=== PATIENT | male | born 1970 | race Caucasian/White ===

== ENCOUNTER 2016-07-19 07:38 | Inpatient (IN) | payer MEDICAID ==
[~2016-07-19] VITALS: Ht 152.4 cm; Wt 50.0 kg
[2016-07-19] VITALS (9 sets, daily range): BP systolic 110; BP diastolic 71; PULSE 85–109; RESP 14–16; TEMP 100.3; Ht 152.4 cm; Wt 50.0 kg
[~2016-07-19 07:38] MED LIST: ACET500T98 GTB; ACET650T85 GTB; CRAN475C GTB; DOCU50LI18 GTB; ESOM40CA GTB; FERR1POW4 GTB; HYDR-1666 GTB; KEP100S GTB; LANS30CA47 PO; MAGN400O4 GTB; METO10TA92 PO; MVI GTB; NA P118E RC; PROSTAT GTB; UDREG GTB; ZINC220T GTB; [UNRECOGNIZED DRUG - CODE] GTB
[2016-07-19] MEDS ORDERED: SODIUM CHLORIDE 0.9% 1L BAG IV* STA (07:50)
[2016-07-19] MEDS ORDERED: CEFEPIME 2GM/50 ML (PMX) 50 ML IVPB STA (07:50)
[2016-07-19] MEDS ORDERED: PANTOPRAZOLE 40 MG INJ IV STA (07:50)
[2016-07-19] MEDS ORDERED: ACETAMINOPHEN 650 MG SUPP PR STA (07:50)
--- NOTE | 2016-07-19 07:55 | ERA ---
ER Documentation Chief Complaint Date/Time DATE: 07/19/16 TIME: 07:54 Chief Complaint VOMITING SINCE 0100, NO BLOOD. RECENT FEVER. NO BLACK STOOLS. HPI History is obtained entirely from transferring paramedics, review of assisted facility records and prior medical records as the patient is encephalopathic and unable to provide any history due to his clinical condition and cognitive impairment. 45-year-old male with a history of anoxic encephalopathy status post cardiac arrest after a suicide attempt in October 2009, vent dependent respiratory failure, seizure disorder, schizophrenia, gastritis/esophagitis and bradycardia sent to the ED from [facility] for evaluation of vomiting and fever. Patient vomited a large amount of coffee-ground vomitus this morning. He was then found to have a fever of 101.5 rectally. No documented melanotic stools. Patient seems to be at his baseline mental status without obvious dyspnea. No other history is available. ROS All systems reviewed and are negative except as per history of present illness. Medications Home Meds Reported Medications Metoclopramide* (Reglan*) 10 Mg Tablet, 10 MG PO TID 06/22/12 Lansoprazole* (Prevacid*) 30 Mg Capsule.dr, 30 MG PO BID 06/22/12 Acetaminophen (Tylenol 8 Hour) 650 Mg Tablet.sa, 650 MG GTB Q4 Y 06/02/12 Acetaminophen (Tylenol) 500 Mg Tab, 1000 MG GTB Q4 Y 06/02/12 Na Phos,M-B/Na Phos,Di-Ba* (Fleet* Enema) 118 Ml Enema, 118 ML RC Q2D Y 06/02/12 Zinc Sulfate* (Zinc Sulfate*) 220 Mg Tablet, 220 MG GTB DAILY 06/02/12 Ascorbic Acid (Vitamin C) 500 Mg/5 Ml Syrup, 500 MG GTB DAILY 06/02/12 Docusate Sodium (Colace) 50 Mg/5 Ml Liquid, 100 MG GTB BID 06/02/12 Levetiracetam* (Keppra* (Ped)) 100 Mg/Ml Liq, 1500 MG GTB BID 06/02/12 Metoclopramide* (Reglan*) 10 Mg/10 Ml Soln, 10 MG GTB TID 06/02/12 Magnesium Hydroxide* (Milk Of Magnesia*) 400 Mg/5 Ml Oral.susp, 30 ML GTB Q3DAY 06/02/12 Hydrocodone Bit/Acetaminophen (Vicodin 5/500 Tablet) 1 Tab Tablet, 1 TAB GTB BID 06/02/12 Ferrous Sulfate (Ferrous Sulfate) 1 Gm Powder, 330 MG GTB TID 04/26/11 Cranberry Fruit (Cranberry Fruit) 475 Mg Capsule, 405 MG GTB DAILY 04/26/11 Multivitamins (Mvi Adult) 10 Ml Soln, 5 ML GTB DAILY 04/26/11 Esomeprazole Mag Trihydrate (Nexium) 40 Mg Capsule.dr, 40 MG GTB DAILY 04/26/11 Discontinued Reported Medications [Prostat] No Conflict Check, 30 ML GTB DAILY 06/02/12 Allergies Allergies: Coded Allergies: No Known Drug Allergy (Verified Allergy, Unknown, 06/25/13) PMhx/Soc Reviewed in chart. As per HPI. assisted facility resident. History of Surgery: No Hx Neurological Disorder: Yes (Anoxic Encephalopathy, seizure, anxiety.) Hx Respiratory Disorders: Yes (Trache Vent dependent.) Hx Cardiac Disorders: Yes ([place]) Hx Psychiatric Problems: Yes (Schizophrenia, anxiety.) Hx Alcohol Use: No Hx Substance Use: No Hx Tobacco Use: No FmHx Unknown Physical Exam Vitals Vital Signs Date Time Temp Pulse Resp B/P Pulse Ox O2 Delivery O2 Flow Rate FiO2 07/19/16 08:38 102.3 07/19/16 08:13 103 14 99 40 07/19/16 07:47 101.9 107 18 115/87 100 Physical Exam Const: Chronically ill-appearing. Eyes open but unresponsive. Head: Atraumatic Eyes: Normal Conjunctiva. Pupils equal reactive. ENT: Normal External Ears, Nose and Mouth. Mucous membranes are dry. Neck: Tracheostomy site is clean without erythema, induration or drainage. No meningismus. Resp: Breath sounds diminished bilaterally with crackles and rhonchi right greater than left. No wheezing. Cardio: Regular rate and rhythm, no murmurs Abd: Soft, non tender, non distended. Normal bowel sounds. G-tube site without erythema induration or drainage. Skin: No petechiae or rashes. No decubiti. Back: No midline or flank tenderness Ext: No cyanosis, or edema. Contracted Neur: Alert but unresponsive. No facial droop. History is limited due to the constraints imposed by the patient's cognitive impairment and clinical condition. Result Diagram: 07/19/16 0810 07/19/16 0810 Results 24 hrs Laboratory Tests Test 07/19/16 06:30 07/19/16 08:10 07/19/16 09:30 Urine Bacteria MANY Urine Bilirubin NEGATIVE Urine Clarity HAZY Urine Color LT. YELLOW Urine Glucose NEGATIVE% Urine Hemoglobin 3+ Urine Ketones NEGATIVE Urine Leukocyte Esterase 3+ Urine Microscopic RBC 10-25/HPF Urine Microscopic WBC 10-25/HPF Urine Nitrite NEGATIVE Urine Specific [place] 1.015 Urine Total Protein 2+ Urine Urobilinogen 1.0 E.U./dL Urine pH 8.5 Alanine Aminotransferase (ALT/SGPT) 35IU/L Albumin 4.1g/dl Albumin/Globulin Ratio 1.00 Alkaline Phosphatase 118IU/L Anion Gap 25 Aspartate Amino Transf (AST/SGOT) 48IU/L Basophils # 0.010^3/ul Basophils % 0.0% Blood Morphology Comment Blood Urea Nitrogen 25mg/dl Calcium Level 9.6mg/dl Carbon Dioxide Level 24mmol/L Chloride Level 106mmol/L Creatinine 0.56mg/dl Direct Bilirubin 0.00mg/dl Eosinophils # 0.010^3/ul Eosinophils % 0.0% Globulin 4.10g/dl Glucose Level 124mg/dl Hematocrit 38.7% Hemoglobin 13.0g/dl Indirect Bilirubin 0.3mg/dl Lactic Acid Level 2.7mmol/L Lipase 43U/L Lymphocytes # 1.110^3/ul Lymphocytes % 6.0% Mean Corpuscular Hemoglobin 27.7pg Mean Corpuscular Hemoglobin Concent 33.6g/dl Mean Corpuscular Volume 82.5fl Mean Platelet Volume 9.7fl Monocytes # 0.510^3/ul Monocytes % 2.6% Neutrophils # 16.210^3/ul Neutrophils % 91.4% Nucleated Red Blood Cells # 0.010^3/ul Nucleated Red Blood Cells % 0.0/100WBC Platelet Count 84804^3/UL Potassium Level 4.0mmol/L Red Blood Count 4.6910^6/ul Red Cell Distribution Width 14.2% Sodium Level 151mmol/L Stool Occult Blood NEGATIVE Total Bilirubin 0.3mg/dl Total Protein 8.2g/dl Troponin I < 0.012ng/ml White Blood Count 17.710^3/ul Activated Partial Thromboplast Time 33.0Sec INR International Normalized Ratio 1.10 Prothrombin Time 14.2Sec Prothrombin Time Ratio 1.1 Current Medications Medications (Trade) Dose Ordered Sig/Kevin Route PRN Reason Start Time Stop Time Status Last Admin Dose Admin Sodium Chloride (NS) 1,550 ml BOLUS OVER 2 HOURS STAT IV* 07/19/16 07:50 07/19/16 07:51 07/19/16 09:29 Pantoprazole (Protonix Iv) 40 mg ONCE STAT IV 07/19/16 07:50 07/19/16 07:51 07/19/16 09:30 Acetaminophen 650 mg 650 mg ONCE STAT WA 07/19/16 07:50 07/19/16 07:51 07/19/16 09:31 Cefepime HCl 50 ml @ 100 mls/hr ONCE STAT IVPB 07/19/16 07:50 07/19/16 08:19 07/19/16 09:30 Vancomycin HCl (Vancocin) 250 ml @ 125 mls/hr ONCE ONCE IVPB 07/19/16 08:00 07/19/16 09:59 Lidocaine 20 ml 20 ml ONCE ONCE SC 07/19/16 08:30 07/19/16 08:31 Levofloxacin/ Dextrose (Levaquin 500mg/ D5W 100 ml (Pmx)) 100 ml @ 100 mls/hr ONCE ONCE IVPB 07/19/16 10:00 07/19/16 10:59 RHYTHM STRIP INTERPRETATION: Time: 08:10. Sinus tachycardia. Rate 110. Indication: Sepsis. EKG: TIME: 08:07. Sinus tachycardia with occasional PACs. Normal [place] and QRS. Nonspecific T-wave changes. No acute ST segment elevation or depression. EP Interpretation: Abnormal EKG. IMAGING: PROCEDURE: XR Chest. CLINICAL INDICATION: chest pain TECHNIQUE: Single frontal view of the chest was obtained COMPARISON: 06/27/2013 FINDINGS: The heart and mediastinum are within normal limits. There is a right lower lobe infiltrate. There is mild left lower lobe linear atelectasis. There is a tracheostomy tube in place. There is no pleural effusion or pneumothorax. RPTAT: AA IMPRESSION: Right lower lobe infiltrate. Mild left lower lobe linear atelectasis. .Vivek Hansen MD, MD Date Time Electronically viewed and signed by .Vivek Hansen MD, MD on 07/19/2016 08: 55 .S/ Procedures/MDM DOCUMENTS REVIEWED: ED nurse, prior ED, prior records, assisted facility records. MEDICAL DECISION MAKIN-year-old male with a history of anoxic encephalopathy status post cardiac arrest after a suicide attempt in October 2009, vent dependent respiratory failure, seizure disorder, schizophrenia, gastritis/ esophagitis and bradycardia sent to the ED from [facility] for evaluation of vomiting and fever. Multiple criteria for systemic inflammatory response syndrome including fever, leukocytosis, tachycardia and tachypnea. Severe sepsis with lactate of 2.7 secondary to pneumonia and urinary tract infection. No hypotension or other criteria for septic shock. Repeat lactate is pending. Normal saline 30 cc/kg bolus given over 2 hours and antibiotics for healthcare acquired pneumonia with double coverage for Pseudomonas initiated after cultures. Coffee-ground emesis and possible upper GI bleed but stool is heme-negative and no significant anemia. Patient be admitted to telemetry for further evaluation and management. CALLS/CONSULTS: Time 09: 30, Dr. Courtney, Recommends admission to telemetry. PATIENT CARE TRANSITIONED: Time: 09:50, Dr. Courtney. Critical Care: Critical care time not including other separately reportable procedures: 35 minutes Emergent fluid management while maintaining close respiratory support. Provision of immediate and broad-spectrum antibiotic therapy. Simultaneous assessment for possible sources in order to direct targeted therapy. Consideration for invasive and chemical support to prevent cardiopulmonary collapse. Family history is unknown. Departure Diagnosis: Primary Impression: Severe sepsis Additional Impressions: Systemic inflammatory response syndrome (SIRS) Pneumonia Qualified Code: J18.9 - Pneumonia of right lower lobe due to infectious organism Urinary tract infection Qualified Code: N39.0 - Urinary tract infection without hematuria, site unspecified Chronic respiratory failure Qualified Code: J96.10 - Chronic respiratory failure, unspecified whether with hypoxia or hypercapnia Ventilator dependent Anoxic encephalopathy Condition: Serious SHAYY ROJAS MD Jul 19, 2016 07:55
[2016-07-19] MEDS ORDERED: VANCOMYCIN 1 GM (PMX) 250 ML IVPB ONE (08:00)
[2016-07-19] MEDS ORDERED: LIDOCAINE 1% (MDV) 20 ML INJ SC ONE (08:30)
[2016-07-19 08:44] LABS: HEMATOCRIT 38.7 % (42.0-52.0); LYMPHOCYTES # 1.1 10^3/ul (0.8-2.9); MEAN CORPUSCULAR HEMOGLOBIN 27.7 pg (29.0-33.0); MEAN CORPUSCULAR HGB CONC 33.6 g/dl (32.0-37.0); MEAN CORPUSCULAR VOLUME 82.5 fl (82.0-101.0); MEAN PLATELET VOLUME 9.7 fl (7.4-10.4); MONOCYTE # 0.5 10^3/ul (0.3-0.9); MONOCYTES % 2.6 % (0.0-11.0); NEUTROPHIL # 16.2 10^3/ul (1.6-7.5); NEUTROPHILS % 91.4 % (39.0-77.0); PLATELET COUNT 263 10^3/UL (140-440); RED BLOOD COUNT 4.69 10^6/ul (4.70-6.10); RED CELL DISTRIBUTION WIDTH 14.2 % (11.5-14.5); UNCORRECTED WBC 17.7 10^3/ul (4.8-10.8); WHITE BLOOD COUNT 17.7 10^3/ul (4.8-10.8)
[2016-07-19 08:47] LABS: CONDITION 1; LH ANALYZER COMMENTS 1
[2016-07-19 08:53] LABS: ADD UMIC YES; URINE BILIRUBIN (Dip) NEGATIVE (NEGATIVE); URINE BLOOD (Dip) 3+ (NEGATIVE); URINE COLOR LT. YELLOW (YELLOW); URINE GLUCOSE (Dip) NEGATIVE (NEGATIVE); URINE KETONES (Dip) NEGATIVE (NEGATIVE); URINE LEUKOCYTE ESTERASE (Dip) 3+ (NEGATIVE); URINE NITRITE (Dip) NEGATIVE (NEGATIVE); URINE TOTAL PROTEIN (Dip) 2+ (NEGATIVE); URINE UROBILINOGEN (Dip) 1.0 E.U./dL (0.1-1.0)
--- NOTE | 2016-07-19 08:56 | RADRPT ---
PROCEDURE: XR Chest. CLINICAL INDICATION: chest pain TECHNIQUE: Single frontal view of the chest was obtained COMPARISON: 06/27/2013 FINDINGS: The heart and mediastinum are within normal limits. There is a right lower lobe infiltrate. There is mild left lower lobe linear atelectasis. There is a tracheostomy tube in place. There is no pleural effusion or pneumothorax. RPTAT: AA IMPRESSION: Right lower lobe infiltrate. Mild left lower lobe linear atelectasis. .Vivek Hansen MD, Date Time Electronically viewed and signed by .Vivek Hansen MD, MD on 07/19/2016 08:55 .S/
[2016-07-19 09:03] LABS: BACTERIA,URINE MANY
[2016-07-19 09:22] LABS: TROPONIN-I < 0.012 ng/ml (0.00-0.12)
[2016-07-19 09:45] LABS: ALBUMIN 4.1 g/dl (3.3-4.9); CHLORIDE 106 mmol/L (97-110)
[2016-07-19 09:46] LABS: SODIUM 151 mmol/L (135-144)
[2016-07-19 09:48] LABS: ALKALINE PHOSPHATASE 118 IU/L (42-121); ANION GAP 25 (8-16); ASPARTATE AMINO TRANSFERASE 48 IU/L (15-46); BILIRUBIN,INDIRECT 0.3 mg/dl (0-1.1); BILIRUBIN,TOTAL 0.3 mg/dl (0.2-1.3); CARBON DIOXIDE 24 mmol/L (21-31); CREATININE 0.56 mg/dl (0.61-1.24); TOTAL PROTEIN 8.2 g/dl (6.1-8.1)
[2016-07-19 09:49] LABS: ALANINE AMINOTRANSFERASE 35 IU/L (13-69); BLOOD UREA NITROGEN 25 mg/dl (7-20); CALCIUM 9.6 mg/dl (8.4-10.2); GLUCOSE 124 mg/dl (70-220)
[2016-07-19 09:54] LABS: INR 1.1; PROTIME 14.2 Sec (12.2-14.2); PT RATIO 1.1
[2016-07-19] MEDS ORDERED: LEVOFLOXACIN 500MG/D5W (PMX) 100 ML IVPB ONE (10:00)
[2016-07-19] MEDS ORDERED: ACETAMINOPHEN 325 MG TAB PO PRN (10:00)
[2016-07-19] MEDS ORDERED: ONDANSETRON 4 MG INJ IV PRN (10:00)
[2016-07-19] MEDS ORDERED: CHLO473M4 MM (10:11)
[2016-07-19] MEDS ORDERED: ALBU2.5V3 NEB (10:11)
[2016-07-19] MEDS ORDERED: DOCU-159 GTB (10:12)
[2016-07-19] MEDS ORDERED: DULR PR (10:13)
[2016-07-19] MEDS ORDERED: FERR220S3 GTB (10:14)
[2016-07-19] MEDS ORDERED: NA P230E RC (10:16)
[2016-07-19] MEDS ORDERED: LEVE500S9 GTB (10:16)
[2016-07-19] MEDS ORDERED: MAGN400O4 GTB (10:17)
[2016-07-19] MEDS ORDERED: MULT9LIQ4 GTB (10:17)
[2016-07-19] MEDS ORDERED: UDREG GTB (10:18)
[2016-07-19] MEDS ORDERED: ESOM40CA GTB (10:18)
[2016-07-19] MEDS ORDERED: ACET-2047 GTB (10:19)
[2016-07-19] MEDS ORDERED: CRAN3875 GTB (10:20)
[2016-07-19] MEDS ORDERED: ASCO500S2 GTB (10:20)
[2016-07-19 10:40] LABS: AADO2 Arterial 157.6 mmHg (7.0-24.0); Allen Test ACCEPTAB; Arterial Base Excess -0.2 mmol/L (-3.0-3); Arterial COHb 0.3 % (0.0-3.0); Arterial Fraction of Oxyhgb 96.1 % (93.0-99.0); Arterial HCO3 23.3 mmol/L (22.0-26.0); Arterial MetHb 0.2 % (0.0-1.5); Arterial Total Hemglobin 12.2 g/dl (12.0-18.0); Blood Gas Low PEEP Setting 0 cmH2O; MODE VENT - AC
[2016-07-19] MEDS ORDERED: BISACODYL 10 MG SUPP PR PRN (14:00)
[2016-07-19] MEDS ORDERED: ALBUTEROL 0.083% (NEB) 2.5 MG/3 ML AMP NEB PRN (14:00)
[2016-07-19] MEDS ORDERED: ACETAMINOPHEN 325 MG TAB GTB PRN (14:00)
[2016-07-19] MEDS ORDERED: MAGNESIUM HYDROXIDE 30ML CUP GTB PRN (14:00)
--- NOTE | 2016-07-19 14:01 | HP ---
Date/Time of Note Date/Time of Note DATE: 07/19/16 TIME: 13:35 Assessment/Plan VTE Prophylaxis VTE Prophylaxis Intervention: other Assessment/Plan Assessment/Plan -Severe sepsis -Systemic inflammatory response syndrome (SIRS) -Pneumonia of right lower lobe due to infectious organism -Urinary tract infection without hematuria, site unspecified -Chronic respiratory failure -Ventilator dependent -Anoxic encephalopathy -dyspahgia -spPEG PLACEMENT -Hypernatremia - Anxiety - Hx Schizophrenia PLAN -Admit to tele -Consults- ID, Pulmonary, GI, Nephro -admission orders done dw Dr Courtney HPI/ROS Admit Date/Time Admit Date/Time Jul 19, 2016 at 13:30 Hx of Present Illness Chief Complaint VOMITING SINCE 0100, NO BLOOD. RECENT FEVER. NO BLACK STOOLS. HPI History is obtained entirely from transferring paramedics, review of [facility] facility records and prior medical records as the patient is encephalopathic and unable to provide any history due to his clinical condition and cognitive impairment. 45-year-old male with a history of anoxic encephalopathy status post cardiac arrest after a suicide attempt in October 2009, vent dependent respiratory failure, seizure disorder, schizophrenia, gastritis/esophagitis and bradycardia sent to the ED from [facility] for evaluation of vomiting and fever. Patient vomited a large amount of coffee-ground vomitus this morning. He was then found to have a fever of 101.5 rectally. No documented melanotic stools. Patient seems to be at his baseline mental status without obvious dyspnea. No other history is available. ROS All systems reviewed and are negative except as per history of present illness. Medications Home Meds Reported Medications Metoclopramide* (Reglan*) 10 Mg Tablet, 10 MG PO TID 06/22/12 Lansoprazole* (Prevacid*) 30 Mg Capsule.dr, 30 MG PO BID 06/22/12 Acetaminophen (Tylenol 8 Hour) 650 Mg Tablet.sa, 650 MG GTB Q4 Y 06/02/12 Acetaminophen (Tylenol) 500 Mg Tab, 1000 MG GTB Q4 Y 06/02/12 Na Phos,M-B/Na Phos,Di-Ba* (Fleet* Enema) 118 Ml Enema, 118 ML RC Q2D Y 06/02/12 Zinc Sulfate* (Zinc Sulfate*) 220 Mg Tablet, 220 MG GTB DAILY 06/02/12 Ascorbic Acid (Vitamin C) 500 Mg/5 Ml Syrup, 500 MG GTB DAILY 06/02/12 Docusate Sodium (Colace) 50 Mg/5 Ml Liquid, 100 MG GTB BID 06/02/12 Levetiracetam* (Keppra* (Ped)) 100 Mg/Ml Liq, 1500 MG GTB BID 06/02/12 Metoclopramide* (Reglan*) 10 Mg/10 Ml Soln, 10 MG GTB TID 06/02/12 Magnesium Hydroxide* (Milk Of Magnesia*) 400 Mg/5 Ml Oral.susp, 30 ML GTB Q3DAY 06/02/12 Hydrocodone Bit/Acetaminophen (Vicodin 5/500 Tablet) 1 Tab Tablet, 1 TAB GTB BID 06/02/12 Ferrous Sulfate (Ferrous Sulfate) 1 Gm Powder, 330 MG GTB TID 04/26/11 Cranberry Fruit (Cranberry Fruit) 475 Mg Capsule, 405 MG GTB DAILY 04/26/11 Multivitamins (Mvi Adult) 10 Ml Soln, 5 ML GTB DAILY 04/26/11 Esomeprazole Mag Trihydrate (Nexium) 40 Mg Capsule.dr, 40 MG GTB DAILY 04/26/11 Discontinued Reported Medications [Prostat] No Conflict Check, 30 ML GTB DAILY 06/02/12 Allergies Allergies: Coded Allergies: No Known Drug Allergy (Verified Allergy, Unknown, 06/25/13) ROS Subjective hx not possible: pt non-verbal PMH/Family/Social Past Medical History PMhx/Soc Reviewed in chart. As per HPI. [facility] facility resident. History of Surgery: No Hx Neurological Disorder: Yes (Anoxic Encephalopathy, seizure, anxiety.) Hx Respiratory Disorders: Yes (Trache Vent dependent.) Hx Cardiac Disorders: Yes (ID) Hx Psychiatric Problems: Yes (Schizophrenia, anxiety.) Hx Alcohol Use: No Hx Substance Use: No Hx Tobacco Use: No FmHx Unknown Social History Smoking Status: Unknown if ever smoked Exam/Review of Systems Vital Signs Vitals Vital Signs Date Time Temp Pulse Resp B/P Pulse Ox O2 Delivery O2 Flow Rate FiO2 07/19/16 12:54 100.3 82 18 128/92 100 Room Air 07/19/16 11:02 40 Exam Constitutional: alert, frail, non-verbal Psych: confusion Eyes: nl sclera ENMT: nl external ears & nose Neck: non-tender Respiratory: diminished breath sounds Cardiovascular: nl pulses Gastrointestinal: non-tender, other, soft Musculoskeletal: muscle weakness (BUE, BLE contratures), other Extremities: normal pulses Neurological: confused Labs Result Diagram: 07/19/16 0810 07/19/16 0810 Medications Medications Current Medications Vancomycin HCl (Vancocin) 250 ml @ 125 mls/hr ONCE ONCE IVPB Last administered on 07/19/16 11:26; Admin Dose 125 MLS/HR; Start 07/19/16 at 08:00 ; Stop 07/19/16 at 09:59 Lidocaine 20 ml 20 ml ONCE ONCE SC ; Start 07/19/16 at 08:30; Stop 07/19/16 at 08:31 Levofloxacin/ Dextrose 100 ml @ 100 mls/hr ONCE ONCE IVPB Last administered on 07/19/16 10:06; Admin Dose 100 MLS/HR; Start 07/19/16 at 10:00; Stop at 10:59 Levetiracetam/ Sodium Chloride (Keppra Iv/NS) 115 ml @ 460 mls/hr BID IVPB ; Start 07/19/16 at 13:30 Procedures Procedures EKG: TIME: 08:07. Sinus tachycardia with occasional PACs. Normal MD and QRS. Nonspecific T-wave changes. No acute ST segment elevation or depression. EP Interpretation: Abnormal EKG. IMAGING: PROCEDURE: XR Chest. CLINICAL INDICATION: chest pain TECHNIQUE: Single frontal view of the chest was obtained COMPARISON: 06/27/2013 FINDINGS: The heart and mediastinum are within normal limits. There is a right lower lobe infiltrate. There is mild left lower lobe linear atelectasis. There is a tracheostomy tube in place. There is no pleural effusion or pneumothorax. RPTAT: AA IMPRESSION: Right lower lobe infiltrate. Mild left lower lobe linear atelectasis. SHELLEY HERNANDEZ Jul 19, 2016 13:48
[2016-07-19 14:23] LABS: CREATININE 0.58 mg/dl (0.61-1.24)
[2016-07-19 14:24] LABS: CALCIUM 8.8 mg/dl (8.4-10.2)
[2016-07-19] MEDS: METOCLOPRAMIDE (1 MG/ML) 10 ML CUP GTB SCH ×2 (14:36→21:17)
[2016-07-19] MEDS: LEVETIRACETAM IV 1,500 MG in SOD CHLORIDE 0.9% 100 ML IVPB SCH ×2 (14:36→22:40)
--- NOTE | 2016-07-19 15:13 | CONS ---
DATE OF ADMISSION: 07/19/2016 DATE OF CONSULTATION: 07/19/2016 NEPHROLOGY CONSULTATION REASON FOR CONSULTATION: Acute hyponatremia, sodium 151; acute prerenal azotemia, concerned about sepsis. REFERRING PHYSICIAN: Dr. Courtney HISTORY OF PRESENT ILLNESS: This is a 45-year-old male who has a past medical history of anoxic encephalopathy, chronic respiratory failure, status post tracheostomy, on chronic ventilator, a history of dysphagia and had G-tube placement, anxiety and schizophrenia. The patient presented with sepsis secondary to pneumonia of the right lower lobe. He also had a urinary tract infection without hematuria. The patient was admitted by Dr. Courtney and he was noted to have acute hypernatremia with a sodium of 151. He also had prerenal azotemia and renal has been consulted for that. REVIEW OF SYSTEMS: Unable to obtain from the patient, since the patient is currently on a tracheostomy and ventilator dependent. PAST MEDICAL HISTORY: 1. Notable for chronic respiratory failure, status post tracheostomy, on a ventilator. 2. Anoxic encephalopathy. 3. Dysphagia, status post gastrostomy tube placement. 4. History of anxiety. 5. History of schizophrenia. PAST SURGICAL HISTORY: History of tracheostomy, history of G-tube. 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 No other history is available. FAMILY HISTORY: Not available. PHYSICAL EXAMINATION: VITAL SIGNS: Temperature 102.3, heart rate 98, respirations 18, blood pressure 128/92, saturations 100% on room air. GENERAL: Patient is currently connected to the ventilator. The tracheostomy site is in place, site is clear. No erythema, no discharge. NECK: Supple. LUNGS: Bilateral decreased breath sounds at both lung bases. Right lower lobe rales present. No wheezing. HEART: S1, S2, tachycardia. ABDOMEN: Soft. G-tube in place. EXTREMITIES: No clubbing, cyanosis, or edema. NEUROLOGICAL: Uncooperative for exam. The patient has anoxic encephalopathy. SKIN: Not able to assess. LABORATORY DATA/DIAGNOSTIC IMAGIN. Sodium 151, potassium 4, chloride 106, bicarbonate 24, BUN 25, creatinine 0.5, glucose 124. Lactic acid 2.7. LFTs are normal. PT 14.2, PTT 33, INR 1.1. 2. WBC 17.7, hemoglobin 13, platelet count is 263. 3. Urinalysis has 3+ leukocyte esterase, many bacteria, 2+ total protein. 4. Stool for occult blood is negative. IMPRESSION: This is a 45-year-old male with: 1. Acute hypernatremia, likely secondary to free water deficit. 2. Sepsis secondary to pneumonia and urinary tract infection. 3. Right lower lobe pneumonia. 4. Acute prerenal azotemia secondary to moderate to severe dehydration. 5. History of anxiety. 6. History of schizophrenia. 7. History of chronic respiratory failure, status post tracheostomy, on a ventilator. 8. History of anoxic encephalopathy. 9. History of dysphagia, status post gastrostomy tube placement. PLAN: Thank you, Dr. Courtney, for this consultation. 1. I will continue the patient on IV fluids of D5W to run at 70 mL per hour x2 liters. 2. I will also give some IV fluids for possible prerenal azotemia. A renal ultrasound will be ordered. 3. Urine studies, including urine sodium, urine protein, urine creatinine has been ordered. The patient is currently seen on the telemetry floor, and is admitted to the telemetry floor by Dr. Courtney. Once again, thank you, Dr. Courtney, for this consultation. I will continue to follow this patient. Total Time Spent in patient Care and consultation including communication with Nursing Staff and educating Patient and Familiy is more than 60 minutes. Dictated By: UMM MANNING MD, KP/CY Conf#: [id number] DID#: [id number] MTDD
[2016-07-19] MEDS: D5W + KCL 20 MEQ 1,000 ML IV SCH (16:31)
[2016-07-19] MEDS ORDERED: LEVETIRACETAM (100 MG/ML) 5ML CUP GTB SCH (21:00)
[2016-07-19] MEDS: FERROUS SULFATE 60 MG/ML 5ML CUP GTB SCH (21:17)
[2016-07-19] MEDS: DOCUSATE SODIUM 100 MG CAP PO SCH (21:17)
[2016-07-19] MEDS: CHLORHEXIDINE GLUCONATE 15 ML UD CUP MM SCH (21:17)
[2016-07-20] VITALS (24 sets, daily range): BP systolic 101–134; BP diastolic 66–91; PULSE 43–85; RESP 14–22
[2016-07-20] MEDS: D5W + KCL 20 MEQ 1,000 ML IV SCH (02:19)
[2016-07-20] MEDS: METOCLOPRAMIDE (1 MG/ML) 10 ML CUP GTB SCH ×3 (05:34→21:23)
[2016-07-20 06:42] LABS: BASOPHILS % 0.3 % (0.0-2.0); EOSINOPHILS # 0.2 10^3/ul (0.0-0.5); EOSINOPHILS % 1.7 % (0.0-7.0); HEMATOCRIT 32.4 % (42.0-52.0); HEMOGLOBIN 10.9 g/dl (14.0-18.0); LYMPHOCYTES % 21.2 % (15.0-51.0); MEAN CORPUSCULAR HEMOGLOBIN 27.9 pg (29.0-33.0); MEAN CORPUSCULAR HGB CONC 33.6 g/dl (32.0-37.0); MEAN CORPUSCULAR VOLUME 82.9 fl (82.0-101.0); MEAN PLATELET VOLUME 9.9 fl (7.4-10.4); MONOCYTE # 0.4 10^3/ul (0.3-0.9); MONOCYTES % 4.2 % (0.0-11.0); NEUTROPHIL # 6.8 10^3/ul (1.6-7.5); NEUTROPHILS % 72.6 % (39.0-77.0); PLATELET COUNT 253 10^3/UL (140-440); RED BLOOD COUNT 3.91 10^6/ul (4.70-6.10); RED CELL DISTRIBUTION WIDTH 14.5 % (11.5-14.5); UNCORRECTED WBC 9.4 10^3/ul (4.8-10.8); WHITE BLOOD COUNT 9.4 10^3/ul (4.8-10.8)
[2016-07-20 06:45] LABS: CONDITION 1
[2016-07-20 07:13] LABS: POTASSIUM 3.8 mmol/L (3.5-5.1)
[2016-07-20 07:15] LABS: CREATININE 0.62 mg/dl (0.61-1.24)
[2016-07-20 07:16] LABS: CALCIUM 9.1 mg/dl (8.4-10.2)
--- NOTE | 2016-07-20 07:46 | RADRPT ---
PROCEDURE: Retroperitoneal US. CLINICAL INDICATION: Renal insufficiency TECHNIQUE: Multiple sonographic images of the kidneys and retroperitoneum were obtained. The imag es were reviewed on a PACS workstation. COMPARISON: No prior studies are available for comparison. FINDINGS: There is thinning of the cortex of the right kidney. There is normal cortical thickness in the left kidney. There is normal echogenicity of the kidneys. The right kidney measures 9.8 cm. The left kidney measures 8.9 cm. There is an 8 mm nonobstructing stone in the left kidney. There is no evidence for hydronephrosis. The urinary bladder is not seen. RPTAT: AA IMPRESSION: Left nephrolithiasis with no evidence of hydronephrosis. .Vivek Hansen MD, MD Date Time Electronically viewed and signed by .Vivek Hansen MD, MD on 07/20/2016 07:45 .S/
[2016-07-20] MEDS ORDERED: VANCOMYCIN IV PER PHARMACY XX SCH (09:00)
[2016-07-20] MEDS: FERROUS SULFATE 60 MG/ML 5ML CUP GTB SCH ×2 (09:44→21:23)
[2016-07-20] MEDS: CHLORHEXIDINE GLUCONATE 15 ML UD CUP MM SCH ×2 (09:44→21:23)
[2016-07-20] MEDS: ASCORBIC ACID 500 MG TAB GTB SCH (09:44)
--- NOTE | 2016-07-20 09:52 | RADRPT ---
PROCEDURE: XR Chest. CLINICAL INDICATION: Shortness of breath. TECHNIQUE: Single frontal view. COMPARISON: 07/19/2016. FINDINGS: There is patchy air space disease at the right lung base, improved. The lungs are otherwise clear. The tracheostomy tube is in satisfactory position. The heart size is normal. There is no pleural effusion. There is no pneumothorax. IMPRESSION: 1. Improved right basilar pneumonia. 2. No other change from 07/19/2016. RPTAT: QQ .Cale Ballard MD, MD Date Time Electronically viewed and signed by .Cale Ballard MD, MD on 07/20/2016 09:52 .R/
[2016-07-20] MEDS: LEVETIRACETAM IV 1,500 MG in SOD CHLORIDE 0.9% 100 ML IVPB SCH ×2 (10:08→21:23)
[2016-07-20] MEDS: PANTOPRAZOLE 40 MG INJ IV SCH ×2 (10:26→18:18)
--- NOTE | 2016-07-20 11:34 | CONS ---
Date/Time of Note Date/Time of Note DATE: 07/20/16 TIME: 11:31 Assessment/Plan Assessment/Plan Additional Assessment/Plan 1. Acute hypernatremia, likely secondary to free water deficit. 2. Sepsis secondary to pneumonia and urinary tract infection. 3. Right lower lobe pneumonia. 4. Acute prerenal azotemia secondary to moderate to severe dehydration. 5. History of anxiety. 6. History of schizophrenia. 7. History of chronic respiratory failure, status post tracheostomy, on a ventilator. 8. History of anoxic encephalopathy. 9. History of dysphagia, status post gastrostomy tube placement. Plan: free water deficit approximately 2.5 lite continue Current IVF D5W with KCL Na improving BP stable will follow up Consultation Date/Type/Reason Admit Date/Time Jul 19, 2016 at 13:30 Initial Consult Date 07/19/2016 Type of Consultation: NEPHROLOGY Reason for Consultation acute hypernatremia Referring Provider: RICHARD GIRARD MD 24 HR Interval Summary Free Text/Dictation pt afebrile, Na improving, Exam/Review of Systems Vital Signs Vitals Vital Signs Date Time Temp Pulse Resp B/P Pulse Ox O2 Delivery O2 Flow Rate FiO2 07/20/16 09:27 69 17 99 30 07/20/16 08:19 98.6 101/68 07/19/16 12:54 Room Air Intake and Output 07/19/16 07/19/16 07/20/16 15:00 23:00 07:00 Intake Total 225 ml Balance 225 ml Exam GENERAL: Patient is currently connected to the ventilator. The tracheostomy site is in place, site is clear. No erythema, no discharge. NECK: Supple. LUNGS: Bilateral decreased breath sounds at both lung bases. Right lower lobe rales present. No wheezing. HEART: S1, S2, tachycardia. ABDOMEN: Soft. G-tube in place. EXTREMITIES: No clubbing, cyanosis, or edema. NEUROLOGICAL: Uncooperative for exam. The patient has anoxic encephalopathy. SKIN: Not able to assess. Results Result Diagram: 07/20/16 0520 07/20/16 0540 Results 24 hrs Laboratory Tests Test 07/19/16 13:50 07/20/16 05:20 07/20/16 05:40 Anion Gap 17 #H 17 H Blood Urea Nitrogen 24 H 20 Calcium Level 8.8 9.1 Carbon Dioxide Level 25 25 Chloride Level 109 106 Creatinine 0.58 L 0.62 Glucose Level 126 120 Lactic Acid Level 1.2 1.4 Potassium Level 4.0 3.8 Sodium Level 147 H 144 Basophils # 0.0 Basophils % 0.3 Blood Morphology Comment Eosinophils # 0.2 Eosinophils % 1.7 Hematocrit 32.4 L Hemoglobin 10.9 L Lymphocytes # 2.0 Lymphocytes % 21.2 Mean Corpuscular Hemoglobin 27.9 L Mean Corpuscular Hemoglobin Concent 33.6 Mean Corpuscular Volume 82.9 Mean Platelet Volume 9.9 Monocytes # 0.4 Monocytes % 4.2 Neutrophils # 6.8 Neutrophils % 72.6 Nucleated Red Blood Cells # 0.0 Nucleated Red Blood Cells % 0.0 Platelet Count 253 Red Blood Count 3.91 L Red Cell Distribution Width 14.5 White Blood Count 9.4 # Medications Medications Current Medications Vancomycin HCl (Vancocin) 250 ml @ 125 mls/hr ONCE ONCE IVPB Last administered on 07/19/16 11:26; Admin Dose 125 MLS/HR; Start 07/19/16 at 08:00 ; Stop 07/19/16 at 09:59 Lidocaine 20 ml 20 ml ONCE ONCE SC ; Start 07/19/16 at 08:30; Stop 07/19/16 at 08:31 Levofloxacin/ Dextrose 100 ml @ 100 mls/hr ONCE ONCE IVPB Last administered on 07/19/16 10:06; Admin Dose 100 MLS/HR; Start 07/19/16 at 10:00; Stop at 10:59 Levetiracetam/ Sodium Chloride (Keppra Iv/NS) 115 ml @ 460 mls/hr BID IVPB Last administered on 07/20/16 10:08; Admin Dose 460 MLS/HR; Start 07/19/16 at 13:30 Acetaminophen (Tylenol Tab) 650 mg Q4 PRN GTB PAIN AND OR ELEVATED TEMP; Start 07/19/16 at 14:00 Albuterol (Proventil 0.083% (Neb)) 2.5 mg Q3H PRN NEB WHEEZING AND SOB; Start 07/19/16 at 14:00 Ascorbic Acid (Vitamin C) 500 mg DAILY GTB Last administered on 07/20/16 09:44 ; Admin Dose 500 MG; Start 07/20/16 at 09:00 Bisacodyl (Dulcolax Supp) 10 mg Q24H PRN [place] CONSTIPATION; Start 07/19/16 at 14: 00 Chlorhexidine Gluconate (Peridex) 15 ml Q12 MM Last administered on 07/20/16 09:44; Admin Dose 15 ML; Start 07/19/16 at 21:00 Docusate Sodium (Colace) 100 mg QHS PO Last administered on 07/19/16 21:17; Admin Dose 100 MG; Start 07/19/16 at 21:00 Ferrous Sulfate (Feosol Liquid Cup) 300 mg BID GTB Last administered on 09:44; Admin Dose 300 MG; Start 07/19/16 at 21:00 Levetiracetam (Keppra Liquid) 1,500 mg BID GTB ; Start 07/19/16 at 21:00; Status Future Hold Magnesium Hydroxide (Milk Of Mag) 30 ml Q24H PRN GTB CONSTIPATION; Start at 14:00 Metoclopramide HCl 5 mg 5 mg Q8 GTB Last administered on 07/20/16 05:34; Admin Dose 5 MG; Start 07/19/16 at 14:00 Potassium Chloride/Dextrose (D5W + KCl 20 Meq) 1,000 ml @ 75 mls/hr [id number] IV Last administered on 07/20/16 02:19; Admin Dose 75 MLS/HR; Start 07/19/16 at 14:30; Stop 07/20/16 at 17:09 Pantoprazole (Protonix Iv) 40 mg BID@06,18 IV Last administered on 07/20/16 10 :26; Admin Dose 40 MG; Start 07/20/16 at 10:10 UMM MANNING MD Jul 20, 2016 11:34
--- NOTE | 2016-07-20 12:28 | PN ---
Date/Time of Note Date/Time of Note DATE: 07/20/16 TIME: 12:23 Assessment/Plan VTE Prophylaxis VTE Contraindication Reason: bleeding Lines/Catheters IV Catheter Type (from Nrs): Saline Lock Urinary Cath still in place: No Assessment/Plan Assessment/Plan -Severe sepsis -Systemic inflammatory response syndrome (SIRS) -Pneumonia of right lower lobe due to infectious organism - GI bleed- no active bleeding noted - GI consult appreciated- Dr Veras notified. -Urinary tract infection without hematuria, site unspecified -Chronic respiratory failure -Ventilator dependent -Anoxic encephalopathy -dyspahgia -spPEG PLACEMENT -Hypernatremia- resolved - SNF resident, debilitated - Anxiety - Hx Schizophrenia PLAN -Admit to tele -Consults- ID, Pulmonary, GI, Nephro -admission orders done dw Dr Courtney Subjective 24 Hr Interval Summary Subjective hx not possible: pt non-verbal Constitutional: requiring IVF, requiring O2 Exam/Review of Systems Vital Signs Vitals Vital Signs Date Time Temp Pulse Resp B/P Pulse Ox O2 Delivery O2 Flow Rate FiO2 07/20/16 11:45 97.8 70 18 109/70 100 07/20/16 11:10 40 07/19/16 12:54 Room Air Intake and Output 07/19/16 07/19/16 07/20/16 15:00 23:00 07:00 Intake Total 225 ml Balance 225 ml Exam Constitutional: frail Head: atraumatic Eyes: nl sclera ENMT: nl external ears & nose Neck: non-tender Respiratory: diminished breath sounds Cardiovascular: nl pulses Gastrointestinal: non-tender, other (gt noted), soft Extremities: other (BLE, BLE- CONTRACTUTRES) Neurological: lethargic Lymph: nontender Results Result Diagram: 07/20/16 0520 07/20/16 0540 Results 24 hrs Laboratory Tests Test 07/19/16 13:50 07/20/16 05:20 07/20/16 05:40 Anion Gap 17 #H 17 H Blood Urea Nitrogen 24 H 20 Calcium Level 8.8 9.1 Carbon Dioxide Level 25 25 Chloride Level 109 106 Creatinine 0.58 L 0.62 Glucose Level 126 120 Lactic Acid Level 1.2 1.4 Potassium Level 4.0 3.8 Sodium Level 147 H 144 Basophils # 0.0 Basophils % 0.3 Blood Morphology Comment Eosinophils # 0.2 Eosinophils % 1.7 Hematocrit 32.4 L Hemoglobin 10.9 L Lymphocytes # 2.0 Lymphocytes % 21.2 Mean Corpuscular Hemoglobin 27.9 L Mean Corpuscular Hemoglobin Concent 33.6 Mean Corpuscular Volume 82.9 Mean Platelet Volume 9.9 Monocytes # 0.4 Monocytes % 4.2 Neutrophils # 6.8 Neutrophils % 72.6 Nucleated Red Blood Cells # 0.0 Nucleated Red Blood Cells % 0.0 Platelet Count 253 Red Blood Count 3.91 L Red Cell Distribution Width 14.5 White Blood Count 9.4 # Medications Medications Current Medications Lidocaine 20 ml 20 ml ONCE ONCE SC ; Start 07/19/16 at 08:30; Stop 07/19/16 at 08:31 Levetiracetam/ Sodium Chloride (Keppra Iv/NS) 115 ml @ 460 mls/hr BID IVPB Last administered on 07/20/16 10:08; Admin Dose 460 MLS/HR; Start 07/19/16 at 13:30 Acetaminophen (Tylenol Tab) 650 mg Q4 PRN GTB PAIN AND OR ELEVATED TEMP; Start 07/19/16 at 14:00 Albuterol (Proventil 0.083% (Neb)) 2.5 mg Q3H PRN NEB WHEEZING AND SOB; Start 07/19/16 at 14:00 Ascorbic Acid (Vitamin C) 500 mg DAILY GTB Last administered on 07/20/16 09:44 ; Admin Dose 500 MG; Start 07/20/16 at 09:00 Bisacodyl (Dulcolax Supp) 10 mg Q24H PRN [place] CONSTIPATION; Start 07/19/16 at 14: 00 Chlorhexidine Gluconate (Peridex) 15 ml Q12 MM Last administered on 07/20/16 09:44; Admin Dose 15 ML; Start 07/19/16 at 21:00 Docusate Sodium (Colace) 100 mg QHS PO Last administered on 07/19/16 21:17; Admin Dose 100 MG; Start 07/19/16 at 21:00 Ferrous Sulfate (Feosol Liquid Cup) 300 mg BID GTB Last administered on 09:44; Admin Dose 300 MG; Start 07/19/16 at 21:00 Levetiracetam (Keppra Liquid) 1,500 mg BID GTB ; Start 07/19/16 at 21:00; Status Future Hold Magnesium Hydroxide (Milk Of Mag) 30 ml Q24H PRN GTB CONSTIPATION; Start at 14:00 Metoclopramide HCl 5 mg 5 mg Q8 GTB Last administered on 07/20/16 05:34; Admin Dose 5 MG; Start 07/19/16 at 14:00 Potassium Chloride/Dextrose (D5W + KCl 20 Meq) 1,000 ml @ 75 mls/hr [id number] IV Last administered on 07/20/16 02:19; Admin Dose 75 MLS/HR; Start 07/19/16 at 14:30; Stop 07/20/16 at 17:09 Pantoprazole 40 mg 40 mg BID@06,18 IV Last administered on 07/20/16 10:26; Admin Dose 40 MG; Start 07/20/16 at 10:10 Vancomycin HCl 250 ml @ 125 mls/hr 13 IVPB ; Start 07/20/16 at 13:00; Stop 05/24 at 15:00 Vancomycin HCl/ Sodium Chloride (Vancocin/NS) 150 ml @ 75 mls/hr Q12H IVPB ; Start 07/21/16 at 01:00 SHELLEY HERNANDEZ Jul 20, 2016 12:28
[2016-07-20] MEDS ORDERED: VANCOMYCIN 1 GM in NS 250 ML IVPB SCH (13:00)
--- NOTE | 2016-07-20 16:40 | CONS ---
DATE OF ADMISSION: 07/19/2016 DATE OF CONSULTATION: 07/19/2016 TYPE OF CONSULTATION: Pulmonary. PRIMARY PHYSICIAN: Dr. Courtney. REASON FOR CONSULTATION: Vent-dependent respiratory failure. HISTORY OF PRESENT ILLNESS: Briefly, this is a 45-year-old unfortunate gentleman with a history of anoxic encephalopathy status post cardiac arrest after a suicide attempt in 2009, vent-dependent res piratory failure status post tracheostomy status post G-tube, seizure disorder, history of esophagit is, gastritis and bradycardia. A resident of [facility], he was transferred here earlier for vomiting coffee-grounds and a fever of 101.5. PAST MEDICAL HISTORY: As noted above. In addition, he has had prior UTIs and prior episodes of seps is. SURGICAL HISTORY: G-tube and tracheostomy. MEDICATIONS: See AUG. ALLERGIES: NONE NOTED. MEDICATIONS: Please see MAR. SOCIAL HISTORY: Unable to obtain. FAMILY HISTORY: Unable to obtain. REVIEW OF SYSTEMS: Unable to obtain. PHYSICAL EXAMINATION: GENERAL: A very contracted gentleman on mechanical ventilation in no acute distress. VITAL SIGNS: Heart rate is 82, blood pressure is 128/92, oxygen saturation 100% on 40% FIO2 via mec hanical ventilation. HEENT: Neck is supple, no thyromegaly. Trach site is clear. CARDIOVASCULAR EXAMINATION: Regular rate and rhythm, S1, S2. CHEST: There are some coarse rhonchi heard, right greater than left side. ABDOMEN: Soft. G-tube is intact. EXTREMITIES: Extremely contrasted with no edema. LABORATORY DATA: Sodium is 147, BUN is 24, creatinine is 0.58. ABG 7.45, pCO2 is 34, pO2 is 89. W BC 17.7, hemoglobin is 13.0. UA with 10 to 25 WBCs. IMPRESSION: 1. Sepsis likely due to urinary tract infection; however, there is some patchy right mid to lower l dina field opacity which may represent atelectasis versus an infiltrate. 2. Chronic vent-dependent respiratory failure. 3. Anoxic encephalopathy. 4. Hypernatremia. The patient is clearly free water depleted. 5. Mild increase in BUN and creatinine, again consistent with the patient's dehydrated state. RECOMMENDATIONS: 1. Mechanical ventilatory support. 2. IV fluids. 3. Increase free water via NG tube. 4. Broad spectrum antibiotics with plans to deescalate pending culture. 5. Follow up cultures. 6. DVT and GI prophylaxis. Dictated By: LANNY TY MD NK/CY Conf#: [id number] DID#: [id number] CC: RICHARD COURTNEY MD; DONTE NEWTON MD;*EndCC*
--- NOTE | 2016-07-20 16:51 | CONS ---
Date/Time of Note Date/Time of Note DATE: 07/20/16 TIME: 16:49 Consult Date/Type/Reason Admit Date/Time Jul 19, 2016 at 13:30 Initial Consult Date Type of Consultation: Pulm Ordering Provider: RICHARD GIRARD MD Subjective No events. [facility]. Objective Vital Signs Date Time Temp Pulse Resp B/P Pulse Ox O2 Delivery O2 Flow Rate FiO2 07/20/16 16:09 98.3 79 18 119/66 100 07/20/16 15:05 40 07/19/16 12:54 Room Air Intake and Output 07/19/16 07/19/16 07/20/16 15:00 23:00 07:00 Intake Total 225 ml Balance 225 ml HEENT: Neck is supple, no thyromegaly. Trach site is clear. CARDIOVASCULAR EXAMINATION: Regular rate and rhythm, S1, S2. CHEST: There are some coarse rhonchi heard, right greater than left side. ABDOMEN: Soft. G-tube is intact. EXTREMITIES: Extremely contrasted with no edema. Results/Medications Result Diagram: 07/20/16 0520 07/20/16 0540 Results 24 hrs Laboratory Tests Test 07/20/16 05:20 07/20/16 05:40 Basophils # 0.0 Basophils % 0.3 Blood Morphology Comment Eosinophils # 0.2 Eosinophils % 1.7 Hematocrit 32.4 L Hemoglobin 10.9 L Lymphocytes # 2.0 Lymphocytes % 21.2 Mean Corpuscular Hemoglobin 27.9 L Mean Corpuscular Hemoglobin Concent 33.6 Mean Corpuscular Volume 82.9 Mean Platelet Volume 9.9 Monocytes # 0.4 Monocytes % 4.2 Neutrophils # 6.8 Neutrophils % 72.6 Nucleated Red Blood Cells # 0.0 Nucleated Red Blood Cells % 0.0 Platelet Count 253 Red Blood Count 3.91 L Red Cell Distribution Width 14.5 White Blood Count 9.4 # Anion Gap 17 H Blood Urea Nitrogen 20 Calcium Level 9.1 Carbon Dioxide Level 25 Chloride Level 106 Creatinine 0.62 Glucose Level 120 Lactic Acid Level 1.4 Potassium Level 3.8 Sodium Level 144 Medications Current Medications Levetiracetam/ Sodium Chloride (Keppra Iv/NS) 115 ml @ 460 mls/hr BID IVPB Last administered on 07/20/16t 10:08; Admin Dose 460 MLS/HR; Start 07/19/16 at 13:30 Acetaminophen (Tylenol Tab) 650 mg Q4 PRN GTB PAIN AND OR ELEVATED TEMP; Start 07/19/16 at 14:00 Albuterol (Proventil 0.083% (Neb)) 2.5 mg Q3H PRN NEB WHEEZING AND SOB; Start 07/19/16 at 14:00 Ascorbic Acid (Vitamin C) 500 mg DAILY GTB Last administered on 07/20/16 09:44 ; Admin Dose 500 MG; Start 07/20/16 at 09:00 Bisacodyl (Dulcolax Supp) 10 mg Q24H PRN [place] CONSTIPATION; Start 07/19/16 at 14: 00 Chlorhexidine Gluconate (Peridex) 15 ml Q12 MM Last administered on 07/20/16 09:44; Admin Dose 15 ML; Start 07/19/16 at 21:00 Docusate Sodium (Colace) 100 mg QHS PO Last administered on 07/19/16 21:17; Admin Dose 100 MG; Start 07/19/16 at 21:00 Ferrous Sulfate (Feosol Liquid Cup) 300 mg BID GTB Last administered on 09:44; Admin Dose 300 MG; Start 07/19/16 at 21:00 Levetiracetam (Keppra Liquid) 1,500 mg BID GTB ; Start 07/19/16 at 21:00; Status Future Hold Magnesium Hydroxide (Milk Of Mag) 30 ml Q24H PRN GTB CONSTIPATION; Start at 14:00 Metoclopramide HCl 5 mg 5 mg Q8 GTB Last administered on 07/20/16 14:35; Admin Dose 5 MG; Start 07/19/16 at 14:00 Potassium Chloride/Dextrose (D5W + KCl 20 Meq) 1,000 ml @ 75 mls/hr [id number] IV Last administered on 07/20/16 02:19; Admin Dose 75 MLS/HR; Start 07/19/16 at 14:30; Stop 07/20/16 at 17:09 Pantoprazole 40 mg 40 mg BID@06,18 IV Last administered on 07/20/16 10:26; Admin Dose 40 MG; Start 07/20/16 at 10:10 Vancomycin HCl/ Sodium Chloride (Vancocin/NS) 150 ml @ 75 mls/hr Q12H IVPB ; Start 07/21/16 at 01:00 Assessment/Plan Additional Assessment/Plan IMPRESSION: 1. Sepsis likely due to urinary tract infection; however, there is some patchy right mid to lower lung field opacity which may represent atelectasis versus an infiltrate. 2. Chronic vent-dependent respiratory failure. 3. Anoxic encephalopathy. 4. Hypernatremia RECOMMENDATIONS: 1. Mechanical ventilatory support. 2. IV fluids. 3. Increase free water via NG tube. 4. Broad spectrum antibiotics--de-escalate pending cultures LANNY TY MD Jul 20, 2016 16:51
[2016-07-20 19:12] LABS: HEMATOCRIT 33.3 % (42.0-52.0)
--- NOTE | 2016-07-20 19:27 | CONS ---
DATE OF ADMISSION: 07/19/2016 DATE OF CONSULTATION: HISTORY OF PRESENT ILLNESS: The patient is a 45-year-old male with anoxic encephalopathy status pos t cardiac arrest after a suicide attempt in October 2009, vent-dependent respiratory failure, seizure di sorder, schizophrenia, gastritis and esophagitis in the past, comes to the ER from rehab for vomitin g and fever. There was a questionable coffee-ground color vomitus. No chest pain, no shortness of breath. No or [employer] SOFTWARE [employer] problem. PAST MEDICAL HISTORY: As described. MEDICATIONS: Reviewed. REVIEW OF SYSTEMS: Unable to do it. PHYSICAL EXAMINATION: GENERAL: The patient is in a vegetative state. CARDIOVASCULAR: No murmur, gallop, or click. LUNGS: Clear. ABDOMEN: Benign. The aspirate is negative. The patient also has no melena. EXTREMITIES: All contracted. CENTRAL NERVOUS SYSTEM: Mentally obtunded. LABORATORY DATA: WBC 17.4, yesterday came down to 9.4. Hematocrit is from 38 it dropped down to 32 . BNP is within normal limits. A chest x-ray showed a questionable right basilar pneumonia. IMPRESSION: 1. Aspiration pneumonia. 2. Vent-dependent respiratory failure. 3. Vegetative state. 4. Questionable upper gastrointestinal bleeding. Stool guaiac is negative. 5. Anoxic encephalopathy. 6. Hypernatremia. PLAN: To continue present care, IV fluid, antibiotics, free water by NG-tube. Will resume feeding and also start the patient on Reglan. Dictated By: KENAN DAVILA/NTS Conf#: [id number] DID#: [id number] CC: KENAN JAUREGUI MD; RICHARD GIRARD MD;*EndCC*
[2016-07-20] MEDS: METOCLOPRAMIDE 10 MG INJ IV SCH (20:00)
[2016-07-20] MEDS: DOCUSATE SODIUM 100 MG CAP PO SCH (21:24)
[2016-07-21] VITALS (25 sets, daily range): BP systolic 106–135; BP diastolic 59–92; PULSE 40–68; RESP 14–26
[2016-07-21 00:59] LABS: HEMATOCRIT 31.7 % (42.0-52.0); HEMOGLOBIN 10.4 g/dl (14.0-18.0)
[2016-07-21] MEDS: VANCOMYCIN 750 MG in SOD CHLORIDE 0.9% 150 ML IVPB SCH ×2 (01:40→12:19)
[2016-07-21] MEDS: PANTOPRAZOLE 40 MG INJ IV SCH ×2 (05:58→17:02)
[2016-07-21] MEDS: METOCLOPRAMIDE (1 MG/ML) 10 ML CUP GTB SCH ×3 (05:58→21:35)
[2016-07-21] MEDS: METOCLOPRAMIDE 10 MG INJ IV SCH ×4 (05:58→17:01)
[2016-07-21 06:29] LABS: CREATININE 0.51 mg/dl (0.61-1.24)
[2016-07-21 06:30] LABS: CALCIUM 9.7 mg/dl (8.4-10.2)
[2016-07-21 06:40] LABS: BASOPHILS % 0.3 % (0.0-2.0); EOSINOPHILS # 0.2 10^3/ul (0.0-0.5); EOSINOPHILS % 2.6 % (0.0-7.0); HEMATOCRIT 37.2 % (42.0-52.0); LYMPHOCYTES # 1.9 10^3/ul (0.8-2.9); LYMPHOCYTES % 28.1 % (15.0-51.0); MEAN CORPUSCULAR HEMOGLOBIN 27.1 pg (29.0-33.0); MEAN CORPUSCULAR HGB CONC 32.2 g/dl (32.0-37.0); MEAN CORPUSCULAR VOLUME 84.4 fl (82.0-101.0); MEAN PLATELET VOLUME 10.3 fl (7.4-10.4); MONOCYTE # 0.4 10^3/ul (0.3-0.9); MONOCYTES % 5.4 % (0.0-11.0); NEUTROPHIL # 4.2 10^3/ul (1.6-7.5); NEUTROPHILS % 63.6 % (39.0-77.0); PLATELET COUNT 187 10^3/UL (140-440); RED BLOOD COUNT 4.41 10^6/ul (4.70-6.10); RED CELL DISTRIBUTION WIDTH 14.2 % (11.5-14.5); UNCORRECTED WBC 6.7 10^3/ul (4.8-10.8); WHITE BLOOD COUNT 6.7 10^3/ul (4.8-10.8)
[2016-07-21 06:44] LABS: CONDITION 1
[2016-07-21] MEDS: CHLORHEXIDINE GLUCONATE 15 ML UD CUP MM SCH ×2 (08:47→21:36)
[2016-07-21] MEDS: FERROUS SULFATE 60 MG/ML 5ML CUP GTB SCH ×2 (08:47→21:35)
[2016-07-21] MEDS: LEVETIRACETAM IV 1,500 MG in SOD CHLORIDE 0.9% 100 ML IVPB SCH ×2 (08:48→21:36)
[2016-07-21] MEDS: ASCORBIC ACID 500 MG TAB GTB SCH (08:48)
--- NOTE | 2016-07-21 10:43 | CONS ---
Date/Time of Note Date/Time of Note DATE: 07/21/16 TIME: 10:41 Assessment/Plan Assessment/Plan Additional Assessment/Plan Assessment and recommendations; 1. Chronic respiratory failure ventilator dependent due to severe anoxic enthesopathy. 2. Gram-positive sepsis. Clinically improving. 3. Stable seizure disorder. 4. Possible UTI. Continue current supportive care. Consultation Date/Type/Reason Admit Date/Time Jul 19, 2016 at 13:30 Initial Consult Date Type of Consultation: Pulm Referring Provider: RICHARD GIRARD MD 24 HR Interval Summary Free Text/Dictation Patient condition remains stable. Remains hemodynamically stable. Patient remains awake but unresponsive to any commands owing to severe anoxic encephalopathy. General examination; young male, on ventilator via tracheostomy, awake but unresponsive. Currently in no distress. Exam/Review of Systems Vital Signs Vitals Vital Signs Date Time Temp Pulse Resp B/P Pulse Ox O2 Delivery O2 Flow Rate FiO2 07/21/16 09:47 59 07/21/16 08:43 98.8 19 135/92 97 07/21/16 05:18 40 07/19/16 12:54 Room Air Exam Current ventilator settings are AC of 14, tidal volume 550, PEEP of 5, 40% FiO2. H EENT examination; neck is stiff with flexion contracture. Tracheostomy in place with clean insertion site. Pupils are midsize, reactive to light bilaterally. No neck masses. No thyromegaly. Chest examination; diminished but clear breath sounds bilaterally. S1-S2 audible, no murmurs. Regular rhythm. Abdomen examination; soft, G-tube in place. No organomegaly. Bowel sounds audible. Extremity examination; patient has severe contractures involving all 4 extremities. CASING MIXER examination; patient is awake but unresponsive to any commands. Results Result Diagram: 07/21/16 0530 07/21/16 0530 Results 24 hrs Laboratory Tests Test 07/20/16 18:40 07/21/16 00:40 07/21/16 05:30 Hematocrit 33.3 L 31.7 L 37.2 L Hemoglobin 11.0 L 10.4 L 12.0 L Anion Gap 20 H Basophils # 0.0 Basophils % 0.3 Blood Morphology Comment Blood Urea Nitrogen 13 Calcium Level 9.7 Carbon Dioxide Level 21 Chloride Level 110 Creatinine 0.51 L Eosinophils # 0.2 Eosinophils % 2.6 Glucose Level 85 Lymphocytes # 1.9 Lymphocytes % 28.1 Mean Corpuscular Hemoglobin 27.1 L Mean Corpuscular Hemoglobin Concent 32.2 Mean Corpuscular Volume 84.4 Mean Platelet Volume 10.3 Monocytes # 0.4 Monocytes % 5.4 Neutrophils # 4.2 Neutrophils % 63.6 Nucleated Red Blood Cells # 0.0 Nucleated Red Blood Cells % 0.0 Platelet Count 187 # Potassium Level 5.0 Red Blood Count 4.41 L Red Cell Distribution Width 14.2 Sodium Level 146 H White Blood Count 6.7 # Medications Medications Current Medications Levetiracetam/ Sodium Chloride (Keppra Iv/NS) 115 ml @ 460 mls/hr BID IVPB Last administered on 07/21/16 08:48; Admin Dose 460 MLS/HR; Start 07/19/16 at 13:30 Acetaminophen (Tylenol Tab) 650 mg Q4 PRN GTB PAIN AND OR ELEVATED TEMP; Start 07/19/16 at 14:00 Albuterol (Proventil 0.083% (Neb)) 2.5 mg Q3H PRN NEB WHEEZING AND SOB; Start 07/19/16 at 14:00 Ascorbic Acid (Vitamin C) 500 mg DAILY GTB Last administered on 07/21/16 08:48 ; Admin Dose 500 MG; Start 07/20/16 at 09:00 Bisacodyl (Dulcolax Supp) 10 mg Q24H PRN [place] CONSTIPATION; Start 07/19/16 at 14: 00 Chlorhexidine Gluconate (Peridex) 15 ml Q12 MM Last administered on 07/21/16 08:47; Admin Dose 15 ML; Start 07/19/16 at 21:00 Docusate Sodium (Colace) 100 mg QHS PO Last administered on 07/20/16 21:24; Admin Dose 100 MG; Start 07/19/16 at 21:00 Ferrous Sulfate (Feosol Liquid Cup) 300 mg BID GTB Last administered on 08:47; Admin Dose 300 MG; Start 07/19/16 at 21:00 Levetiracetam (Keppra Liquid) 1,500 mg BID GTB ; Start 07/19/16 at 21:00; Status Future Hold Magnesium Hydroxide (Milk Of Mag) 30 ml Q24H PRN GTB CONSTIPATION; Start at 14:00 Metoclopramide HCl (Reglan Liq) 5 mg Q8 GTB Last administered on 07/21/16 05: 58; Admin Dose 5 MG; Start 07/19/16 at 14:00 Pantoprazole 40 mg 40 mg BID@06,18 IV Last administered on 07/21/16 05:58; Admin Dose 40 MG; Start 07/20/16 at 10:10 Vancomycin HCl/ Sodium Chloride (Vancocin/NS) 150 ml @ 75 mls/hr Q12H IVPB Last administered on 07/21/16 01:40; Admin Dose 75 MLS/HR; Start 07/21/16 at 01 :00 Metoclopramide HCl (Reglan) 5 mg Q6 IV Last administered on 07/21/16 05:58; Admin Dose 5 MG; Start 07/20/16 at 20:00 MI JEFFERS Jul 21, 2016 10:43
[2016-07-21 12:58] LABS: HEMATOCRIT 32.7 % (42.0-52.0); HEMOGLOBIN 10.7 g/dl (14.0-18.0)
--- NOTE | 2016-07-21 14:52 | CONS ---
Date/Time of Note Date/Time of Note DATE: 07/21/16 TIME: 14:49 Assessment/Plan Assessment/Plan Additional Assessment/Plan 1. Acute hypernatremia, likely secondary to free water deficit. 2. Sepsis secondary to pneumonia and urinary tract infection. 3. Right lower lobe pneumonia. 4. Acute prerenal azotemia secondary to moderate to severe dehydration. 5. History of anxiety. 6. History of schizophrenia. 7. History of chronic respiratory failure, status post tracheostomy, on a ventilator. 8. History of anoxic encephalopathy. 9. History of dysphagia, status post gastrostomy tube placement. Plan: continue Current IVF D5W with KCL Na 146- increase free water to 200 cc every 4 hr x 24 hr then stop BP stable will follow up Consultation Date/Type/Reason Admit Date/Time Jul 19, 2016 at 13:30 Initial Consult Date 07/19/2016 Type of Consultation: NEPHROLOGY Referring Provider: RICHARD GIRARD MD 24 HR Interval Summary Free Text/Dictation pt stable, Na 146 Exam/Review of Systems Vital Signs Vitals Vital Signs Date Time Temp Pulse Resp B/P Pulse Ox O2 Delivery O2 Flow Rate FiO2 07/21/16 13:55 40 07/21/16 12:55 68 07/21/16 12:15 98.7 19 130/79 97 07/19/16 12:54 Room Air Exam GENERAL: Patient is currently connected to the ventilator. The tracheostomy site is in place, site is clear. No erythema, no discharge. NECK: Supple. LUNGS: Bilateral decreased breath sounds at both lung bases. Right lower lobe rales present. No wheezing. HEART: S1, S2, tachycardia. ABDOMEN: Soft. G-tube in place. EXTREMITIES: No clubbing, cyanosis, or edema. NEUROLOGICAL: Uncooperative for exam. The patient has anoxic encephalopathy. SKIN: Not able to assess. Results Result Diagram: 07/21/16 1239 07/21/16 0530 Results 24 hrs Laboratory Tests Test 07/20/16 18:40 07/21/16 00:40 07/21/16 05:30 07/21/16 12:39 Hematocrit 33.3 L 31.7 L 37.2 L 32.7 L Hemoglobin 11.0 L 10.4 L 12.0 L 10.7 L Anion Gap 20 H Basophils # 0.0 Basophils % 0.3 Blood Morphology Comment Blood Urea Nitrogen 13 Calcium Level 9.7 Carbon Dioxide Level 21 Chloride Level 110 Creatinine 0.51 L Differential Comment AUTO w/SCAN Eosinophils # 0.2 Eosinophils % 2.6 Glucose Level 85 Lymphocytes # 1.9 Lymphocytes % 28.1 Mean Corpuscular Hemoglobin 27.1 L Mean Corpuscular Hemoglobin Concent 32.2 Mean Corpuscular Volume 84.4 Mean Platelet Volume 10.3 Monocytes # 0.4 Monocytes % 5.4 Neutrophils # 4.2 Neutrophils % 63.6 Nucleated Red Blood Cells # 0.0 Nucleated Red Blood Cells % 0.0 Platelet Count 187 # Potassium Level 5.0 Red Blood Count 4.41 L Red Cell Distribution Width 14.2 Sodium Level 146 H White Blood Count 6.7 # Medications Medications Current Medications Levetiracetam/ Sodium Chloride (Keppra Iv/NS) 115 ml @ 460 mls/hr BID IVPB Last administered on 07/21/16 08:48; Admin Dose 460 MLS/HR; Start 07/19/16 at 13:30 Acetaminophen (Tylenol Tab) 650 mg Q4 PRN GTB PAIN AND OR ELEVATED TEMP; Start 07/19/16 at 14:00 Albuterol (Proventil 0.083% (Neb)) 2.5 mg Q3H PRN NEB WHEEZING AND SOB; Start 07/19/16 at 14:00 Ascorbic Acid (Vitamin C) 500 mg DAILY GTB Last administered on 07/21/16 08:48 ; Admin Dose 500 MG; Start 07/20/16 at 09:00 Bisacodyl (Dulcolax Supp) 10 mg Q24H PRN [place] CONSTIPATION; Start 07/19/16 at 14: 00 Chlorhexidine Gluconate (Peridex) 15 ml Q12 MM Last administered on 07/21/16 08:47; Admin Dose 15 ML; Start 07/19/16 at 21:00 Docusate Sodium (Colace) 100 mg QHS PO Last administered on 07/20/16 21:24; Admin Dose 100 MG; Start 07/19/16 at 21:00 Ferrous Sulfate (Feosol Liquid Cup) 300 mg BID GTB Last administered on 08:47; Admin Dose 300 MG; Start 07/19/16 at 21:00 Levetiracetam (Keppra Liquid) 1,500 mg BID GTB ; Start 07/19/16 at 21:00; Status Future Hold Magnesium Hydroxide (Milk Of Mag) 30 ml Q24H PRN GTB CONSTIPATION; Start at 14:00 Metoclopramide HCl (Reglan Liq) 5 mg Q8 GTB Last administered on 07/21/16 14: 05; Admin Dose 5 MG; Start 07/19/16 at 14:00 Pantoprazole 40 mg 40 mg BID@06,18 IV Last administered on 07/21/16 05:58; Admin Dose 40 MG; Start 07/20/16 at 10:10 Vancomycin HCl/ Sodium Chloride (Vancocin/NS) 150 ml @ 75 mls/hr Q12H IVPB Last administered on 07/21/16 12:19; Admin Dose 75 MLS/HR; Start 07/21/16 at 01 :00 Metoclopramide HCl (Reglan) 5 mg Q6 IV Last administered on 07/21/16 12:19; Admin Dose 5 MG; Start 07/20/16 at 20:00 Miscellaneous Information (*Rx Drug Level Order Reminder*) 1 ONCE ONCE XX ; Start 07/22/16 at 00:00; Stop 07/22/16 at 00:01 UMM MANNING MD Jul 21, 2016 14:52
[2016-07-21] MEDS ORDERED: CEFTRIAXONE 1 GM/50 ML (PMX) 50 ML IVPB SCH (16:30)
--- NOTE | 2016-07-21 19:17 | PN ---
Date/Time of Note Date/Time of Note DATE: 07/21/16 TIME: 19:07 Assessment/Plan VTE Prophylaxis VTE Prophylaxis Intervention: SCD's Lines/Catheters IV Catheter Type (from Nrs): Saline Lock Urinary Cath still in place: Yes Reason Cath still needed: urinary retention Assessment/Plan Chief Complaint/Hosp Course Assessment and plan - Anoxic encephalopathy status post cardiac arrest after suicide attempt in October 2009 - Ventilator dependent respiratory failure with tracheostomy - Dysphagia with G-tube, continue fiber source is 55 cc/h. monitor residual. - Proteus mirabilis urinary tract infection. Dr. Matias is following an infection disease consultation. Continue antibiotics per ID. - Sepsis with Staphylococcus bacteremia - Suspected deep deep tissue injury. Wound care consult. - Possible upper GI bleed. Dr. Veras is following from gastroenterology consultation -Seizure disorder, continue Keppra. -Schizophrenia Continue Protonix for peptic ulcer disease prophylaxis Further recommendations based on clinical course. Plan of care discussed with Dr. Courtney. Problems: Subjective 24 Hr Interval Summary Free Text/Dictation No fever nausea vomiting per nursing staff, patient with urinary incontinence, contracted. Exam/Review of Systems Vital Signs Vitals Vital Signs Date Time Temp Pulse Resp B/P Pulse Ox O2 Delivery O2 Flow Rate FiO2 07/21/16 17:06 54 07/21/16 17:00 14 98 40 07/21/16 15:48 98.4 106/59 07/19/16 12:54 Room Air Exam Physical Exam Const: Chronically ill-appearing. Eyes open, does not follow any commands. Head: Atraumatic Eyes: Normal Conjunctiva. Pupils equal reactive. ENT: Normal External Ears, Nose and Mouth. Mucous membranes are dry. Neck: Tracheostomy site is clean without erythema, induration or drainage. No meningismus. Resp: Breath sounds diminished bilaterally with crackles and rhonchi right greater than left. No wheezing. Cardio: Regular rate and rhythm, no murmurs Abd: Soft, non tender, non distended. Normal bowel sounds. G-tube site without erythema induration or drainage. Skin: No petechiae or rashes. Back: No midline or flank tenderness Ext: No cyanosis, or edema. Contracted Neur: Alert but unresponsive. No facial droop. Results Result Diagram: 07/21/16 1239 07/21/16 0530 Results 24 hrs Laboratory Tests Test 07/21/16 00:40 07/21/16 05:30 07/21/16 12:39 07/21/16 17:42 Hematocrit 31.7 L 37.2 L 32.7 L Hemoglobin 10.4 L 12.0 L 10.7 L Anion Gap 20 H Basophils # 0.0 Basophils % 0.3 Blood Morphology Comment Blood Urea Nitrogen 13 Calcium Level 9.7 Carbon Dioxide Level 21 Chloride Level 110 Creatinine 0.51 L Differential Comment AUTO w/SCAN Eosinophils # 0.2 Eosinophils % 2.6 Glucose Level 85 Lymphocytes # 1.9 Lymphocytes % 28.1 Mean Corpuscular Hemoglobin 27.1 L Mean Corpuscular Hemoglobin Concent 32.2 Mean Corpuscular Volume 84.4 Mean Platelet Volume 10.3 Monocytes # 0.4 Monocytes % 5.4 Neutrophils # 4.2 Neutrophils % 63.6 Nucleated Red Blood Cells # 0.0 Nucleated Red Blood Cells % 0.0 Platelet Count 187 # Potassium Level 5.0 Red Blood Count 4.41 L Red Cell Distribution Width 14.2 Sodium Level 146 H White Blood Count 6.7 # Urine Random Creatinine 58.08 Urine Random Sodium 111 H Urine Total Protein Medications Medications Current Medications Levetiracetam/ Sodium Chloride (Keppra Iv/NS) 115 ml @ 460 mls/hr BID IVPB Last administered on 07/21/16 08:48; Admin Dose 460 MLS/HR; Start 07/19/16 at 13:30 Acetaminophen (Tylenol Tab) 650 mg Q4 PRN GTB PAIN AND OR ELEVATED TEMP; Start 07/19/16 at 14:00 Albuterol (Proventil 0.083% (Neb)) 2.5 mg Q3H PRN NEB WHEEZING AND SOB; Start 07/19/16 at 14:00 Ascorbic Acid (Vitamin C) 500 mg DAILY GTB Last administered on 07/21/16 08:48 ; Admin Dose 500 MG; Start 07/20/16 at 09:00 Bisacodyl (Dulcolax Supp) 10 mg Q24H PRN [place] CONSTIPATION; Start 07/19/16 at 14: 00 Chlorhexidine Gluconate (Peridex) 15 ml Q12 MM Last administered on 07/21/16 08:47; Admin Dose 15 ML; Start 07/19/16 at 21:00 Docusate Sodium (Colace) 100 mg QHS PO Last administered on 07/20/16 21:24; Admin Dose 100 MG; Start 07/19/16 at 21:00 Ferrous Sulfate (Feosol Liquid Cup) 300 mg BID GTB Last administered on 08:47; Admin Dose 300 MG; Start 07/19/16 at 21:00 Levetiracetam (Keppra Liquid) 1,500 mg BID GTB ; Start 07/19/16 at 21:00; Status Future Hold Magnesium Hydroxide (Milk Of Mag) 30 ml Q24H PRN GTB CONSTIPATION; Start at 14:00 Metoclopramide HCl (Reglan Liq) 5 mg Q8 GTB Last administered on 07/21/16 14: 05; Admin Dose 5 MG; Start 07/19/16 at 14:00 Pantoprazole 40 mg 40 mg BID@06,18 IV Last administered on 07/21/16 17:02; Admin Dose 40 MG; Start 07/20/16 at 10:10 Vancomycin HCl/ Sodium Chloride (Vancocin/NS) 150 ml @ 75 mls/hr Q12H IVPB Last administered on 07/21/16 12:19; Admin Dose 75 MLS/HR; Start 07/21/16 at 01 :00 Metoclopramide HCl (Reglan) 5 mg Q6 IV Last administered on 07/21/16 17:01; Admin Dose 5 MG; Start 07/20/16 at 20:00 Miscellaneous Information 1 ONCE ONCE XX ; Start 07/22/16 at 00:00; Stop at 00:01 Ceftriaxone Sodium (Rocephin) 50 ml @ 100 mls/hr Q24H IVPB Last administered on 07/21/16 17:01; Admin Dose 100 MLS/HR; Start 07/21/16 at 16:30 JH WISDOM Jul 21, 2016 19:17
--- NOTE | 2016-07-21 19:26 | CONS ---
Date/Time of Note Date/Time of Note DATE: 07/21/16 TIME: 19:25 Assessment/Plan Assessment/Plan Additional Assessment/Plan 1. Aspiration pneumonia. 2. Vent-dependent respiratory failure. 3. Vegetative state. 4. Questionable upper gastrointestinal bleeding. Stool guaiac is negative. 5. Anoxic encephalopathy. 6. Hypernatremia. Plan continue g tube feeding PPI and Reglan Consultation Date/Type/Reason Admit Date/Time Jul 19, 2016 at 13:30 Initial Consult Date Type of Consultation: NEPHROLOGY Referring Provider: RICHARD GIRARD MD 24 HR Interval Summary Constitutional: improved, no complaints Exam/Review of Systems Vital Signs Vitals Vital Signs Date Time Temp Pulse Resp B/P Pulse Ox O2 Delivery O2 Flow Rate FiO2 07/21/16 19:13 98.8 62 14 122/73 100 07/21/16 17:00 40 07/19/16 12:54 Room Air Exam Constitutional: alert, oriented, well developed Psych: nl mood/affect, no complaints Head: atraumatic, normocephalic Eyes: EOMI, PERRL, nl conjunctiva, nl lids, nl sclera ENMT: nl external ears & nose, nl lips & teeth, nl nasal mucosa & septum Neck: non-tender, supple Respiratory: clear to auscultation, normal air movement Cardiovascular: nl pulses, regular rate and rhythm Gastrointestinal: nl liver, spleen, non-tender, soft Musculoskeletal: nl extremities to inspection, nl gait and stance Extremities: normal pulses Neurological: WE[employer] DIRECTOR II-XII intact, nl mental status, nl speech, nl strength Skin: nl turgor, No rash or lesions Lymph: nl lymph nodes Results Result Diagram: 07/21/16 1239 07/21/16 0530 Results 24 hrs Laboratory Tests Test 07/21/16 00:40 07/21/16 05:30 07/21/16 12:39 07/21/16 17:42 Hematocrit 31.7 L 37.2 L 32.7 L Hemoglobin 10.4 L 12.0 L 10.7 L Anion Gap 20 H Basophils # 0.0 Basophils % 0.3 Blood Morphology Comment Blood Urea Nitrogen 13 Calcium Level 9.7 Carbon Dioxide Level 21 Chloride Level 110 Creatinine 0.51 L Differential Comment AUTO w/SCAN Eosinophils # 0.2 Eosinophils % 2.6 Glucose Level 85 Lymphocytes # 1.9 Lymphocytes % 28.1 Mean Corpuscular Hemoglobin 27.1 L Mean Corpuscular Hemoglobin Concent 32.2 Mean Corpuscular Volume 84.4 Mean Platelet Volume 10.3 Monocytes # 0.4 Monocytes % 5.4 Neutrophils # 4.2 Neutrophils % 63.6 Nucleated Red Blood Cells # 0.0 Nucleated Red Blood Cells % 0.0 Platelet Count 187 # Potassium Level 5.0 Red Blood Count 4.41 L Red Cell Distribution Width 14.2 Sodium Level 146 H White Blood Count 6.7 # Urine Random Creatinine 58.08 Urine Random Sodium 111 H Urine Total Protein Medications Medications Current Medications Levetiracetam/ Sodium Chloride (Keppra Iv/NS) 115 ml @ 460 mls/hr BID IVPB Last administered on 07/21/16 08:48; Admin Dose 460 MLS/HR; Start 07/19/16 at 13:30 Acetaminophen (Tylenol Tab) 650 mg Q4 PRN GTB PAIN AND OR ELEVATED TEMP; Start 07/19/16 at 14:00 Albuterol (Proventil 0.083% (Neb)) 2.5 mg Q3H PRN NEB WHEEZING AND SOB; Start 07/19/16 at 14:00 Ascorbic Acid (Vitamin C) 500 mg DAILY GTB Last administered on 07/21/16 08:48 ; Admin Dose 500 MG; Start 07/20/16 at 09:00 Bisacodyl (Dulcolax Supp) 10 mg Q24H PRN [place] CONSTIPATION; Start 07/19/16 at 14: 00 Chlorhexidine Gluconate (Peridex) 15 ml Q12 MM Last administered on 07/21/16 08:47; Admin Dose 15 ML; Start 07/19/16 at 21:00 Docusate Sodium (Colace) 100 mg QHS PO Last administered on 07/20/16 21:24; Admin Dose 100 MG; Start 07/19/16 at 21:00 Ferrous Sulfate (Feosol Liquid Cup) 300 mg BID GTB Last administered on 08:47; Admin Dose 300 MG; Start 07/19/16 at 21:00 Levetiracetam (Keppra Liquid) 1,500 mg BID GTB ; Start 07/19/16 at 21:00; Status Future Hold Magnesium Hydroxide (Milk Of Mag) 30 ml Q24H PRN GTB CONSTIPATION; Start at 14:00 Metoclopramide HCl (Reglan Liq) 5 mg Q8 GTB Last administered on 07/21/16 14: 05; Admin Dose 5 MG; Start 07/19/16 at 14:00 Pantoprazole 40 mg 40 mg BID@06,18 IV Last administered on 07/21/16 17:02; Admin Dose 40 MG; Start 07/20/16 at 10:10 Vancomycin HCl/ Sodium Chloride (Vancocin/NS) 150 ml @ 75 mls/hr Q12H IVPB Last administered on 07/21/16 12:19; Admin Dose 75 MLS/HR; Start 07/21/16 at 01 :00 Metoclopramide HCl (Reglan) 5 mg Q6 IV Last administered on 07/21/16 17:01; Admin Dose 5 MG; Start 07/20/16 at 20:00 Miscellaneous Information 1 ONCE ONCE XX ; Start 07/22/16 at 00:00; Stop at 00:01 Ceftriaxone Sodium (Rocephin) 50 ml @ 100 mls/hr Q24H IVPB Last administered on 07/21/16 17:01; Admin Dose 100 MLS/HR; Start 07/21/16 at 16:30 KENAN JAUREGUI MD Jul 21, 2016 19:26
[2016-07-21 19:34] LABS: HEMATOCRIT 30.4 % (42.0-52.0); HEMOGLOBIN 10.2 g/dl (14.0-18.0)
--- NOTE | 2016-07-21 19:49 | CONS ---
DATE OF ADMISSION: 07/19/2016 DATE OF CONSULTATION: 07/21/2016 TYPE OF CONSULTATION: Infectious Disease. REASON FOR CONSULTATION: Antibiotic management. HISTORY OF PRESENT ILLNESS: Lelia Maher is an unfortunate 45-year-old Afghan Nigerian male wit h numerous problems who comes in now with severe sepsis. His past problems include: 1. Anoxic encephalopathy status post cardiac arrest after a suicide attempt in 10/2009. 2. Ventilator-dependent respiratory failure. 3. Seizure disorders. 4. Schizophrenia. 5. Gastritis, esophagitis. 6. Bradycardia. 7. G-tube placement. 8. History of urinary tract infection. Acutely, the patient comes in after vomiting a large amount of coffee-ground vomitus and then develo ped a fever to 101.5, probably related to aspiration pneumonitis. On admission, his white count was 17.7, H and H 13 and 38.7, platelet count 263,000. BUN and creatinine 25 over 0.56. PAST MEDICAL HISTORY: Operations as outlined. FAMILY HISTORY: Noncontributory. SOCIAL HISTORY: The patient has anoxic encephalopathy, lives in a jail facility. He campbell s not smoke, drink or abuse drugs. ALLERGIES: NONE TO PENICILLIN, SULFA OR FOODS. MEDICATIONS: Per chart. REVIEW OF SYSTEMS: As per HPI. PHYSICAL EXAMINATION: GENERAL: The patient is a chronically ill-appearing male. He has a trach and a G-tube. VITAL SIGNS: He had a temperature on the of 102.3. Currently he is afebrile. SKIN: Without generalized rash. HEENT: Within normal limits. NECK: Tracheostomy in place without discharge. LYMPH NODES: None palpable. CHEST: Decreased breath sounds at the bases. HEART: Without murmur or gallop. ABDOMEN: Soft, nontender without organosplenomegaly or masses. EXTREMITIES: Without cyanosis, clubbing or edema. He has contractures bilaterally, upper and lower extremities. RECTAL AND GENITAL: Deferred. NEUROLOGIC: Again, the patient is contractured and has anoxic encephalopathy. MICROBIOLOGY: He has staph species in his blood, and his urine is growing Proteus mirabilis. The P roteus mirabilis is sensitive to everything. The staph species, we do not have sensitivities as far as I can tell. The patient was started on vancomycin and should probably be on ceftriaxone as well . IMAGING: The chest x-ray from the shows improved right basilar pneumonia from the . He calero d a right lower lobe infiltrate and mild left lower lobe atelectasis. Renal ultrasound shows left nephrolithiasis with no evidence of hydronephrosis. PLAN: I am going to add ceftriaxone to his regimen. Wound care has been ordered. The blood cultur es were positive on the , so will get 2 more sets. I will dictate my findings to Dr. Courtney. Dictated By: MCKENNA MORRIS MD, JD/CY Conf#: [id number] DID#: [id number]
[2016-07-21] MEDS ORDERED: DOCUSATE SODIUM 10 MG/ML (10ML CUP) PO SCH (21:34)
[2016-07-22] VITALS (24 sets, daily range): BP systolic 106–149; BP diastolic 73–84; PULSE 60–70; RESP 14–23
[2016-07-22] MEDS: VANCOMYCIN 750 MG in SOD CHLORIDE 0.9% 150 ML IVPB SCH ×2 (02:39→13:05)
[2016-07-22] MEDS: METOCLOPRAMIDE (1 MG/ML) 10 ML CUP GTB SCH ×3 (06:07→21:50)
[2016-07-22] MEDS: PANTOPRAZOLE 40 MG INJ IV SCH ×2 (06:07→17:49)
[2016-07-22 06:46] LABS: BASOPHILS % 0.4 % (0.0-2.0); EOSINOPHILS # 0.1 10^3/ul (0.0-0.5); EOSINOPHILS % 2.8 % (0.0-7.0); HEMATOCRIT 31.7 % (42.0-52.0); HEMOGLOBIN 10.6 g/dl (14.0-18.0); LYMPHOCYTES % 21.2 % (15.0-51.0); MEAN CORPUSCULAR HEMOGLOBIN 27.8 pg (29.0-33.0); MEAN CORPUSCULAR HGB CONC 33.6 g/dl (32.0-37.0); MEAN CORPUSCULAR VOLUME 82.7 fl (82.0-101.0); MEAN PLATELET VOLUME 10.1 fl (7.4-10.4); MONOCYTE # 0.3 10^3/ul (0.3-0.9); MONOCYTES % 5.8 % (0.0-11.0); NEUTROPHIL # 3.4 10^3/ul (1.6-7.5); NEUTROPHILS % 69.8 % (39.0-77.0); PLATELET COUNT 190 10^3/UL (140-440); RED BLOOD COUNT 3.83 10^6/ul (4.70-6.10); UNCORRECTED WBC 4.9 10^3/ul (4.8-10.8); WHITE BLOOD COUNT 4.9 10^3/ul (4.8-10.8)
[2016-07-22 06:47] LABS: CONDITION 1
[2016-07-22 06:57] LABS: POTASSIUM 3.6 mmol/L (3.5-5.1)
[2016-07-22 06:59] LABS: CREATININE 0.5 mg/dl (0.61-1.24)
[2016-07-22] MEDS: LEVETIRACETAM IV 1,500 MG in SOD CHLORIDE 0.9% 100 ML IVPB SCH ×2 (08:28→21:51)
[2016-07-22] MEDS: ASCORBIC ACID 500 MG TAB GTB SCH (08:28)
[2016-07-22] MEDS: CHLORHEXIDINE GLUCONATE 15 ML UD CUP MM SCH ×2 (08:28→21:51)
[2016-07-22] MEDS: FERROUS SULFATE 60 MG/ML 5ML CUP GTB SCH ×2 (08:28→21:51)
--- NOTE | 2016-07-22 12:27 | CONS ---
Date/Time of Note Date/Time of Note DATE: 07/22/16 TIME: 12:25 Assessment/Plan Assessment/Plan Additional Assessment/Plan 1. Acute hypernatremia, likely secondary to free water deficit. 2. Sepsis secondary to pneumonia and urinary tract infection. 3. Right lower lobe pneumonia. 4. Acute prerenal azotemia secondary to moderate to severe dehydration. 5. History of anxiety. 6. History of schizophrenia. 7. History of chronic respiratory failure, status post tracheostomy, on a ventilator. 8. History of anoxic encephalopathy. 9. History of dysphagia, status post gastrostomy tube placement. Plan: pt is off IVF , on Tube feeding, Na slowly trended up to 147 Na 146- increase free water to 200 cc every 4 hr BP stable will follow up Consultation Date/Type/Reason Admit Date/Time Jul 19, 2016 at 13:30 Initial Consult Date 07/19/2016 Type of Consultation: NEPHROLOGY Reason for Consultation Hypernatremia Referring Provider: RICHARD GIRARD MD Exam/Review of Systems Vital Signs Vitals Vital Signs Date Time Temp Pulse Resp B/P Pulse Ox O2 Delivery O2 Flow Rate FiO2 07/22/16 12:06 99.2 78 16 116/75 100 07/22/16 11:13 40 07/19/16 12:54 Room Air Intake and Output 07/21/16 07/21/16 07/22/16 15:00 23:00 07:00 Intake Total 265 ml 270 ml 600 ml Output Total 50 ml 400 ml Balance 265 ml 220 ml 200 ml Exam GENERAL: Patient is currently connected to the ventilator. The tracheostomy site is in place, site is clear. No erythema, no discharge. NECK: Supple. LUNGS: Bilateral decreased breath sounds at both lung bases. Right lower lobe rales present. No wheezing. HEART: S1, S2, tachycardia. ABDOMEN: Soft. G-tube in place. EXTREMITIES: No clubbing, cyanosis, or edema. NEUROLOGICAL: Uncooperative for exam. The patient has anoxic encephalopathy. Results Result Diagram: 07/22/16 0542 07/22/16 0542 Results 24 hrs Laboratory Tests Test 07/21/16 12:39 07/21/16 17:42 07/21/16 18:55 07/22/16 00:39 Hematocrit 32.7 L 30.4 L Hemoglobin 10.7 L 10.2 L Urine Eosinophils % 2.0 H Urine Random Creatinine 58.08 Urine Random Sodium 111 H Urine Total Protein Vancomycin Level Trough 11.1 Test 07/22/16 05:42 Anion Gap 17 H Basophils # 0.0 Basophils % 0.4 Blood Morphology Comment Blood Urea Nitrogen 12 Calcium Level 9.0 Carbon Dioxide Level 23 Chloride Level 111 H Creatinine 0.50 L Eosinophils # 0.1 Eosinophils % 2.8 Glucose Level 101 Hematocrit 31.7 L Hemoglobin 10.6 L Lymphocytes # 1.0 Lymphocytes % 21.2 Mean Corpuscular Hemoglobin 27.8 L Mean Corpuscular Hemoglobin Concent 33.6 Mean Corpuscular Volume 82.7 Mean Platelet Volume 10.1 Monocytes # 0.3 Monocytes % 5.8 Neutrophils # 3.4 Neutrophils % 69.8 Nucleated Red Blood Cells # 0.0 Nucleated Red Blood Cells % 0.0 Platelet Count 190 Potassium Level 3.6 Red Blood Count 3.83 L Red Cell Distribution Width 14.0 Sodium Level 147 H White Blood Count 4.9 # Medications Medications Current Medications Levetiracetam/ Sodium Chloride (Keppra Iv/NS) 115 ml @ 460 mls/hr BID IVPB Last administered on 07/22/16 08:28; Admin Dose 460 MLS/HR; Start 07/19/16 at 13:30 Acetaminophen (Tylenol Tab) 650 mg Q4 PRN GTB PAIN AND OR ELEVATED TEMP; Start 07/19/16 at 14:00 Albuterol (Proventil 0.083% (Neb)) 2.5 mg Q3H PRN NEB WHEEZING AND SOB; Start 07/19/16 at 14:00 Ascorbic Acid (Vitamin C) 500 mg DAILY GTB Last administered on 07/22/16 08:28 ; Admin Dose 500 MG; Start 07/20/16 at 09:00 Bisacodyl (Dulcolax Supp) [address] CONSTIPATION; Start 07/19/16 at 14: 00 Chlorhexidine Gluconate (Peridex) 15 ml Q12 MM Last administered on 07/22/16 08:28; Admin Dose 15 ML; Start 07/19/16 at 21:00 Ferrous Sulfate (Feosol Liquid Cup) 300 mg BID GTB Last administered on 08:28; Admin Dose 300 MG; Start 07/19/16 at 21:00 Levetiracetam (Keppra Liquid) 1,500 mg BID GTB ; Start 07/19/16 at 21:00; Status Future Hold Magnesium Hydroxide (Milk Of Mag) 30 ml Q24H PRN GTB CONSTIPATION; Start at 14:00 Metoclopramide HCl (Reglan Liq) 5 mg Q8 GTB Last administered on 07/22/16 06: 07; Admin Dose 5 MG; Start 07/19/16 at 14:00 Pantoprazole 40 mg 40 mg BID@06,18 IV Last administered on 07/22/16 06:07; Admin Dose 40 MG; Start 07/20/16 at 10:10 Vancomycin HCl 750 mg/Sodium Chloride 150 ml @ 75 mls/hr Q12H IVPB Last administered on 07/22/16 02:39; Admin Dose 75 MLS/HR; Start 07/21/16 at 01:00 Ceftriaxone Sodium (Rocephin) 50 ml @ 100 mls/hr Q24H IVPB Last administered on 07/21/16 17:01; Admin Dose 100 MLS/HR; Start 07/21/16 at 16:30 Docusate Sodium (Colace Liquid Cup) 100 mg QHS GTB ; Start 07/21/16 at 21:34 UMM MANNING MD Jul 22, 2016 12:27
--- NOTE | 2016-07-22 12:33 | CONS ---
Date/Time of Note Date/Time of Note DATE: 07/22/16 TIME: 12:30 Assessment/Plan Assessment/Plan Additional Assessment/Plan Current ventilator settings; assist control of 14, tidal volume 550, PEEP of 0, 40% FiO2. Assessment and recommendations; 1. Chronic respiratory failure due to severe anoxic brain injury. Ventilator dependent. 2. UTI and sepsis. 3. Stable seizure disorder. Continue current treatment. Consultation Date/Type/Reason Admit Date/Time Jul 19, 2016 at 13:30 Type of Consultation: Pulmonary Referring Provider: RICHARD GIRARD MD 24 HR Interval Summary Free Text/Dictation Patient condition remains stable. Remains ventilator dependent on account of severe anoxic enthesopathy. Has remained hemodynamically stable. General examination; middle aged man, on ventilator via tracheostomy currently in no distress. Unresponsive. Exam/Review of Systems Vital Signs Vitals Vital Signs Date Time Temp Pulse Resp B/P Pulse Ox O2 Delivery O2 Flow Rate FiO2 07/22/16 12:06 99.2 78 16 116/75 100 07/22/16 11:13 40 07/19/16 12:54 Room Air Intake and Output 07/21/16 07/21/16 07/22/16 15:00 23:00 07:00 Intake Total 265 ml 270 ml 600 ml Output Total 50 ml 400 ml Balance 265 ml 220 ml 200 ml Exam Each HEENT examination; tracheostomy in place. No thyromegaly. Pupils are midsize and reactive to light. There is a flexion contracture of the neck. Chest examination; diminished but clear breath sounds. S1-S2 audible, no murmurs. Regular rhythm. Abdomen examination; G-tube in place. No organomegaly. Bowel sounds audible. Extremity examination; no peripheral edema. There are severe flexion contractures involving all 4 extremities. SENIOR MEDICAL TRANSCRIPTIONIST examination; patient remains unresponsive. Results Result Diagram: 07/22/16 0542 07/22/16 0542 Results 24 hrs Laboratory Tests Test 07/21/16 12:39 07/21/16 17:42 07/21/16 18:55 07/22/16 00:39 Hematocrit 32.7 L 30.4 L Hemoglobin 10.7 L 10.2 L Urine Eosinophils % 2.0 H Urine Random Creatinine 58.08 Urine Random Sodium 111 H Urine Total Protein Vancomycin Level Trough 11.1 Test 07/22/16 05:42 Anion Gap 17 H Basophils # 0.0 Basophils % 0.4 Blood Morphology Comment Blood Urea Nitrogen 12 Calcium Level 9.0 Carbon Dioxide Level 23 Chloride Level 111 H Creatinine 0.50 L Eosinophils # 0.1 Eosinophils % 2.8 Glucose Level 101 Hematocrit 31.7 L Hemoglobin 10.6 L Lymphocytes # 1.0 Lymphocytes % 21.2 Mean Corpuscular Hemoglobin 27.8 L Mean Corpuscular Hemoglobin Concent 33.6 Mean Corpuscular Volume 82.7 Mean Platelet Volume 10.1 Monocytes # 0.3 Monocytes % 5.8 Neutrophils # 3.4 Neutrophils % 69.8 Nucleated Red Blood Cells # 0.0 Nucleated Red Blood Cells % 0.0 Platelet Count 190 Potassium Level 3.6 Red Blood Count 3.83 L Red Cell Distribution Width 14.0 Sodium Level 147 H White Blood Count 4.9 # Medications Medications Current Medications Levetiracetam/ Sodium Chloride (Keppra Iv/NS) 115 ml @ 460 mls/hr BID IVPB Last administered on 07/22/16 08:28; Admin Dose 460 MLS/HR; Start 07/19/16 at 13:30 Acetaminophen (Tylenol Tab) 650 mg Q4 PRN GTB PAIN AND OR ELEVATED TEMP; Start 07/19/16 at 14:00 Albuterol (Proventil 0.083% (Neb)) 2.5 mg Q3H PRN NEB WHEEZING AND SOB; Start 07/19/16 at 14:00 Ascorbic Acid (Vitamin C) 500 mg DAILY GTB Last administered on 07/22/16 08:28 ; Admin Dose 500 MG; Start 07/20/16 at 09:00 Bisacodyl (Dulcolax Supp) 10 mg Q24H PRN [place] CONSTIPATION; Start 07/19/16 at 14: 00 Chlorhexidine Gluconate (Peridex) 15 ml Q12 MM Last administered on 07/22/16 08:28; Admin Dose 15 ML; Start 07/19/16 at 21:00 Ferrous Sulfate (Feosol Liquid Cup) 300 mg BID GTB Last administered on 08:28; Admin Dose 300 MG; Start 07/19/16 at 21:00 Levetiracetam (Keppra Liquid) 1,500 mg BID GTB ; Start 07/19/16 at 21:00; Status Future Hold Magnesium Hydroxide (Milk Of Mag) 30 ml Q24H PRN GTB CONSTIPATION; Start at 14:00 Metoclopramide HCl (Reglan Liq) 5 mg Q8 GTB Last administered on 07/22/16 06: 07; Admin Dose 5 MG; Start 07/19/16 at 14:00 Pantoprazole 40 mg 40 mg BID@06,18 IV Last administered on 07/22/16 06:07; Admin Dose 40 MG; Start 07/20/16 at 10:10 Vancomycin HCl 750 mg/Sodium Chloride 150 ml @ 75 mls/hr Q12H IVPB Last administered on 07/22/16 02:39; Admin Dose 75 MLS/HR; Start 07/21/16 at 01:00 Ceftriaxone Sodium (Rocephin) 50 ml @ 100 mls/hr Q24H IVPB Last administered on 07/21/16 17:01; Admin Dose 100 MLS/HR; Start 07/21/16 at 16:30 Docusate Sodium (Colace Liquid Cup) 100 mg QHS GTB ; Start 07/21/16 at 21:34 MI JEFFERS Jul 22, 2016 12:33
--- NOTE | 2016-07-22 12:56 | PN ---
DATE: 07/22/2016 SUBJECTIVE: No acute changes. The patient is nonverbal, noncommunicative, lying comfortably in bed . He is afebrile. WBC 4.9, H and H 10.6 and 31.7, platelets 190, no shift, no bands. BUN 12, creatinine 0.50. MICROBIOLOGY: Blood culture on admission grew coagulase-negative staph species. Urine culture grew Proteus mirabilis, susceptible to cefotaxime, ampicillin, tobramycin, Bactrim, gentamicin. INDWELLINGS: Trach, PEG, Charles. ANTIMICROBIALS: Patient is on: 1. Vancomycin. 2. Rocephin. PHYSICAL EXAMINATION: GENERAL: Chronically ill-appearing, middle-aged [place] man who is lying comfortably in bed. HEENT: Head atraumatic, normocephalic. Sclerae anicteric. Buccal mucosa dry. NECK: Supple. Tracheostomy present. CHEST: Rise symmetrical. Breath sounds diminished at the bases. HEART: S1, S2. ABDOMEN: Soft, bowel tones present. EXTREMITIES: Contractured. ASSESSMENT: 1. Sepsis, resolving. 2. Healthcare-associated pneumonia. 3. Multi-drug resistant urinary tract infection. 4. Coagulase-negative Staphylococcus bacteremia, possibly contaminant. 5. Persistent vegetative state. PLAN: The patient remains stable. We are going to change Rocephin to cefepime. Repeat blood cultu res. Continue vancomycin for now and follow recommendations of consultants. Dictated By: YURY YOON REGISTERED ART THERAPIST for MCKENNA GARCIA/CY Conf#: [id number] DID#: [id number]
--- NOTE | 2016-07-22 17:05 | PN ---
Date/Time of Note Date/Time of Note DATE: 07/22/16 TIME: 17:03 Assessment/Plan VTE Prophylaxis VTE Prophylaxis Intervention: SCD's Lines/Catheters IV C[facility]ter Type (from [facility]): Saline Lock Urinary Cath still in place: Yes Reason Cath still needed: urinary retention Assessment/Plan Chief Complaint/Hosp Course Assessment and plan - Anoxic encephalopathy status post cardiac arrest after suicide attempt in October 2009 - Ventilator dependent respiratory failure with tracheostomy - Dysphagia with G-tube, continue fiber source is 55 cc/h. monitor residual. - Proteus mirabilis urinary tract infection. Dr. Matias is following an infection disease consultation. Continue antibiotics per ID. - Sepsis with Staphylococcus bacteremia - Suspected deep deep tissue injury. Wound care consult. - Possible upper GI bleed. Dr. Veras is following from gastroenterology consultation -Seizure disorder, continue Keppra. -Schizophrenia Continue Protonix for peptic ulcer disease prophylaxis Further recommendations based on clinical course. Plan of care discussed with Dr. Courtney. Problems: Subjective 24 Hr Interval Summary Free Text/Dictation Patient continues to have low-grade fever, no nausea vomiting per RN, sinus rhythm sinus bradycardia Exam/Review of Systems Vital Signs Vitals Vital Signs Date Time Temp Pulse Resp B/P Pulse Ox O2 Delivery O2 Flow Rate FiO2 07/22/16 16:09 99.7 68 18 135/82 98 07/22/16 15:29 40 07/19/16 12:54 Room Air Intake and Output 07/21/16 07/21/16 07/22/16 14:59 22:59 06:59 Intake Total 265 ml 270 ml 600 ml Output Total 50 ml 400 ml Balance 265 ml 220 ml 200 ml Exam Physical Exam Const: Chronically ill-appearing. Eyes open, does not follow any commands. Head: Atraumatic Eyes: Normal Conjunctiva. Pupils equal reactive. ENT: Normal External Ears, Nose and Mouth. Mucous membranes are dry. Neck: Tracheostomy site is clean without erythema, induration or drainage. No meningismus. Resp: Breath sounds diminished bilaterally with crackles and rhonchi right greater than left. No wheezing. Cardio: Regular rate and rhythm, no murmurs Abd: Soft, non tender, non distended. Normal bowel sounds. G-tube site without erythema induration or drainage. Skin: No petechiae or rashes. Back: No midline or flank tenderness Ext: No cyanosis, or edema. Contracted Neur: Alert but unresponsive. No facial droop. Results Result Diagram: 07/22/16 0542 07/22/16 0542 Results 24 hrs Laboratory Tests Test 07/21/16 17:42 07/21/16 18:55 07/22/16 00:39 07/22/16 05:42 Urine Eosinophils % 2.0 H Urine Random Creatinine 58.08 Urine Random Sodium 111 H Urine Total Protein Hematocrit 30.4 L 31.7 L Hemoglobin 10.2 L 10.6 L Vancomycin Level Trough 11.1 Anion Gap 17 H Basophils # 0.0 Basophils % 0.4 Blood Morphology Comment Blood Urea Nitrogen 12 Calcium Level 9.0 Carbon Dioxide Level 23 Chloride Level 111 H Creatinine 0.50 L Eosinophils # 0.1 Eosinophils % 2.8 Glucose Level 101 Lymphocytes # 1.0 Lymphocytes % 21.2 Mean Corpuscular Hemoglobin 27.8 L Mean Corpuscular Hemoglobin Concent 33.6 Mean Corpuscular Volume 82.7 Mean Platelet Volume 10.1 Monocytes # 0.3 Monocytes % 5.8 Neutrophils # 3.4 Neutrophils % 69.8 Nucleated Red Blood Cells # 0.0 Nucleated Red Blood Cells % 0.0 Platelet Count 190 Potassium Level 3.6 Red Blood Count 3.83 L Red Cell Distribution Width 14.0 Sodium Level 147 H White Blood Count 4.9 # Medications Medications Current Medications Levetiracetam/ Sodium Chloride (Keppra Iv/NS) 115 ml @ 460 mls/hr BID IVPB Last administered on 07/22/16 08:28; Admin Dose 460 MLS/HR; Start 07/19/16 at 13:30 Acetaminophen (Tylenol Tab) 650 mg Q4 PRN GTB PAIN AND OR ELEVATED TEMP; Start 07/19/16 at 14:00 Albuterol (Proventil 0.083% (Neb)) 2.5 mg Q3H PRN NEB WHEEZING AND SOB; Start 07/19/16 at 14:00 Ascorbic Acid (Vitamin C) 500 mg DAILY GTB Last administered on 07/22/16 08:28 ; Admin Dose 500 MG; Start 07/20/16 at 09:00 Bisacodyl (Dulcolax Supp) 10 mg Q24H PRN [place] CONSTIPATION; Start 07/19/16 at 14: 00 Chlorhexidine Gluconate (Peridex) 15 ml Q12 MM Last administered on 07/22/16 08:28; Admin Dose 15 ML; Start 07/19/16 at 21:00 Ferrous Sulfate (Feosol Liquid Cup) 300 mg BID GTB Last administered on 08:28; Admin Dose 300 MG; Start 07/19/16 at 21:00 Levetiracetam (Keppra Liquid) 1,500 mg BID GTB ; Start 07/19/16 at 21:00; Status Future Hold Magnesium Hydroxide (Milk Of Mag) 30 ml Q24H PRN GTB CONSTIPATION; Start at 14:00 Metoclopramide HCl (Reglan Liq) 5 mg Q8 GTB Last administered on 07/22/16 14: 34; Admin Dose 5 MG; Start 07/19/16 at 14:00 Pantoprazole 40 mg 40 mg BID@06,18 IV Last administered on 07/22/16 06:07; Admin Dose 40 MG; Start 07/20/16 at 10:10 Vancomycin HCl/ Sodium Chloride (Vancocin/NS) 150 ml @ 75 mls/hr Q12H IVPB Last administered on 07/22/16 13:05; Admin Dose 75 MLS/HR; Start 07/21/16 at 01 :00 Docusate Sodium 100 mg 100 mg QHS GTB ; Start 07/21/16 at 21:34 Cefepime HCl (Maxipime 1gm/50 ml (Pmx)) 50 ml @ 100 mls/hr Q12 IVPB ; Start at 21:00 JH WSIDOM Jul 22, 2016 17:05
[2016-07-22] MEDS ORDERED: morphine 2 MG INJ IV PRN (18:00)
[2016-07-22] MEDS: CEFEPIME 1GM/50 ML (PMX) 50 ML IVPB SCH (21:51)
[2016-07-22] MEDS: DOCUSATE SODIUM 10 MG/ML (10ML CUP) GTB SCH (21:51)
[2016-07-23] VITALS (22 sets, daily range): BP systolic 114–134; BP diastolic 52–87; PULSE 60–77; RESP 14–20
[2016-07-23] MEDS: VANCOMYCIN 750 MG in SOD CHLORIDE 0.9% 150 ML IVPB SCH ×2 (02:35→12:12)
[2016-07-23] MEDS: PANTOPRAZOLE 40 MG INJ IV SCH ×2 (06:33→18:38)
[2016-07-23] MEDS: METOCLOPRAMIDE (1 MG/ML) 10 ML CUP GTB SCH ×3 (06:34→22:10)
[2016-07-23 06:50] LABS: POTASSIUM 4.1 mmol/L (3.5-5.1)
[2016-07-23 06:52] LABS: CREATININE 0.59 mg/dl (0.61-1.24)
[2016-07-23 06:53] LABS: CALCIUM 9.2 mg/dl (8.4-10.2)
[2016-07-23] MEDS: CHLORHEXIDINE GLUCONATE 15 ML UD CUP MM SCH ×2 (08:43→22:10)
[2016-07-23] MEDS: ASCORBIC ACID 500 MG TAB GTB SCH (08:43)
[2016-07-23] MEDS: LEVETIRACETAM IV 1,500 MG in SOD CHLORIDE 0.9% 100 ML IVPB SCH ×2 (08:43→22:06)
[2016-07-23] MEDS: FERROUS SULFATE 60 MG/ML 5ML CUP GTB SCH ×2 (08:43→22:10)
[2016-07-23] MEDS: CEFEPIME 1GM/50 ML (PMX) 50 ML IVPB SCH ×2 (09:56→22:30)
--- NOTE | 2016-07-23 10:38 | CONS ---
Date/Time of Note Date/Time of Note DATE: 07/23/16 TIME: 10:36 Assessment/Plan Assessment/Plan Additional Assessment/Plan 1. Acute hypernatremia, likely secondary to free water deficit. 2. Sepsis secondary to pneumonia and urinary tract infection. 3. Right lower lobe pneumonia. 4. Acute prerenal azotemia secondary to moderate to severe dehydration. 5. History of anxiety. 6. History of schizophrenia. 7. History of chronic respiratory failure, status post tracheostomy, on a ventilator. 8. History of anoxic encephalopathy. 9. History of dysphagia, status post gastrostomy tube placement. Plan: pt is off IVF , on Tube feeding, Na slowly trended up to 147 Na 146- continue free water to 200 cc every 4 hr- if no improvement with that then we will start D5W BP stable will follow up Consultation Date/Type/Reason Admit Date/Time Jul 19, 2016 at 13:30 Initial Consult Date 07/19/2016 Type of Consultation: NEPHROLOGY Referring Provider: RICHARD GIRARD MD 24 HR Interval Summary Free Text/Dictation no acute events, Na 147 today Exam/Review of Systems Vital Signs Vitals Vital Signs Date Time Temp Pulse Resp B/P Pulse Ox O2 Delivery O2 Flow Rate FiO2 07/23/16 09:10 100 20 100 40 07/23/16 07:39 98.6 116/64 07/19/16 12:54 Room Air Intake and Output 07/22/16 07/22/16 07/23/16 15:00 23:00 07:00 Intake Total 100 ml 1350 ml 1100 ml Output Total 800 ml 600 ml Balance 100 ml 550 ml 500 ml Exam GENERAL: Patient is currently connected to the ventilator. The tracheostomy site is in place, site is clear. No erythema, no discharge. NECK: Supple. LUNGS: Bilateral decreased breath sounds at both lung bases. Right lower lobe rales present. No wheezing. HEART: S1, S2, tachycardia. ABDOMEN: Soft. G-tube in place. EXTREMITIES: No clubbing, cyanosis, or edema. NEUROLOGICAL: Uncooperative for exam. The patient has anoxic encephalopathy. Results Result Diagram: 07/22/16 0542 07/23/16 0540 Results 24 hrs Laboratory Tests Test 07/23/16 05:40 Anion Gap 18 H Blood Urea Nitrogen 12 Calcium Level 9.2 Carbon Dioxide Level 23 Chloride Level 110 Creatinine 0.59 L Glucose Level 111 Magnesium Level 2.1 Potassium Level 4.1 Sodium Level 147 H Medications Medications Current Medications Levetiracetam/ Sodium Chloride (Keppra Iv/NS) 115 ml @ 460 mls/hr BID IVPB Last administered on 07/23/16 08:43; Admin Dose 460 MLS/HR; Start 07/19/16 at 13:30 Acetaminophen (Tylenol Tab) 650 mg Q4 PRN GTB PAIN AND OR ELEVATED TEMP; Start 07/19/16 at 14:00 Albuterol (Proventil 0.083% (Neb)) 2.5 mg Q3H PRN NEB WHEEZING AND SOB; Start 07/19/16 at 14:00 Ascorbic Acid (Vitamin C) 500 mg DAILY GTB Last administered on 07/23/16 08:43 ; Admin Dose 500 MG; Start 07/20/16 at 09:00 Bisacodyl (Dulcolax Supp) 10 mg Q24H PRN OR CONSTIPATION; Start 07/19/16 at 14: 00 Chlorhexidine Gluconate (Peridex) 15 ml Q12 MM Last administered on 07/23/16 08:43; Admin Dose 15 ML; Start 07/19/16 at 21:00 Ferrous Sulfate (Feosol Liquid Cup) 300 mg BID GTB Last administered on 08:43; Admin Dose 300 MG; Start 07/19/16 at 21:00 Levetiracetam (Keppra Liquid) 1,500 mg BID GTB ; Start 07/19/16 at 21:00; Status Future Hold Magnesium Hydroxide (Milk Of Mag) 30 ml Q24H PRN GTB CONSTIPATION; Start at 14:00 Metoclopramide HCl (Reglan Liq) 5 mg Q8 GTB Last administered on 07/23/16 06: 34; Admin Dose 5 MG; Start 07/19/16 at 14:00 Pantoprazole 40 mg 40 mg BID@06,18 IV Last administered on 07/23/16 06:33; Admin Dose 40 MG; Start 07/20/16 at 10:10 Vancomycin HCl/ Sodium Chloride (Vancocin/NS) 150 ml @ 75 mls/hr Q12H IVPB Last administered on 07/23/16 02:35; Admin Dose 75 MLS/HR; Start 07/21/16 at 01 :00 Docusate Sodium 100 mg 100 mg QHS GTB Last administered on 07/22/16 21:51; Admin Dose 100 MG; Start 07/21/16 at 21:34 Cefepime HCl (Maxipime 1gm/50 ml (Pmx)) 50 ml @ 100 mls/hr Q12 IVPB Last administered on 07/23/16 09:56; Admin Dose 100 MLS/HR; Start 07/22/16 at 21:00 Morphine Sulfate (morphine) 2 mg Q3H PRN IV PAIN LEVEL 7-10; Start 07/22/16 at 18:00 UMM MANNING MD Jul 23, 2016 10:37
--- NOTE | 2016-07-23 13:05 | CONS ---
Date/Time of Note Date/Time of Note DATE: 07/23/16 TIME: 13:03 Assessment/Plan Assessment/Plan Additional Assessment/Plan Ventilator settings are: assist control of 14, tidal volume 550, PEEP of 0. 40% FiO2. Assessment recommendations; 1. Chronic respiratory failure due to anoxic enthesopathy. Patient remains ventilator dependent. 2. UTI with sepsis. 3. Stable seizure disorder. Continue current supportive care. Continue current antibiotics. Consultation Date/Type/Reason Admit Date/Time Jul 19, 2016 at 13:30 Type of Consultation: Pulmonary Referring Provider: RICHARD GIRARD MD 24 HR Interval Summary Free Text/Dictation Patient condition remains unchanged. Remains completely unresponsive. Remains ventilator dependent. Has remained hemodynamically stable. General examination; middle aged man on ventilator via tracheostomy currently in no distress and unresponsive. Exam/Review of Systems Vital Signs Vitals Vital Signs Date Time Temp Pulse Resp B/P Pulse Ox O2 Delivery O2 Flow Rate FiO2 07/23/16 12:18 62 07/23/16 11:20 98.5 18 114/52 99 07/23/16 11:20 40 07/19/16 12:54 Room Air Intake and Output 07/22/16 07/22/16 07/23/16 15:00 23:00 07:00 Intake Total 100 ml 1350 ml 1100 ml Output Total 800 ml 600 ml Balance 100 ml 550 ml 500 ml Exam H EENT examination; patient has a flexion contraction of the neck. Tracheostomy in place. With clean insertion site. No neck masses. No lymphadenopathy. No thyromegaly. Chest examination; diminished but clear breath sounds bilaterally. S1-S2 audible, no murmurs. Regular rhythm. Abdomen examination; soft, G-tube in place. Bowel sounds audible. Extremity examination; patient has severe flexion contractures involving all 4 extremities. TELEGRAPH OFFICE MANAGER examination; patient remains unresponsive. Results Result Diagram: 07/22/16 0542 07/23/16 0540 Results 24 hrs Laboratory Tests Test 07/23/16 05:40 Anion Gap 18 H Blood Urea Nitrogen 12 Calcium Level 9.2 Carbon Dioxide Level 23 Chloride Level 110 Creatinine 0.59 L Glucose Level 111 Magnesium Level 2.1 Potassium Level 4.1 Sodium Level 147 H Medications Medications Current Medications Levetiracetam/ Sodium Chloride (Keppra Iv/NS) 115 ml @ 460 mls/hr BID IVPB Last administered on 07/23/16 08:43; Admin Dose 460 MLS/HR; Start 07/19/16 at 13:30 Acetaminophen (Tylenol Tab) 650 mg Q4 PRN GTB PAIN AND OR ELEVATED TEMP; Start 07/19/16 at 14:00 Albuterol (Proventil 0.083% (Neb)) 2.5 mg Q3H PRN NEB WHEEZING AND SOB; Start 07/19/16 at 14:00 Ascorbic Acid (Vitamin C) 500 mg DAILY GTB Last administered on 07/23/16 08:43 ; Admin Dose 500 MG; Start 07/20/16 at 09:00 Bisacodyl (Dulcolax Supp) 10 mg Q24H PRN [place] CONSTIPATION; Start 07/19/16 at 14: 00 Chlorhexidine Gluconate (Peridex) 15 ml Q12 MM Last administered on 07/23/16 08:43; Admin Dose 15 ML; Start 07/19/16 at 21:00 Ferrous Sulfate (Feosol Liquid Cup) 300 mg BID GTB Last administered on 08:43; Admin Dose 300 MG; Start 07/19/16 at 21:00 Levetiracetam (Keppra Liquid) 1,500 mg BID GTB ; Start 07/19/16 at 21:00; Status Future Hold Magnesium Hydroxide (Milk Of Mag) 30 ml Q24H PRN GTB CONSTIPATION; Start at 14:00 Metoclopramide HCl (Reglan Liq) 5 mg Q8 GTB Last administered on 07/23/16 06: 34; Admin Dose 5 MG; Start 07/19/16 at 14:00 Pantoprazole 40 mg 40 mg BID@06,18 IV Last administered on 07/23/16 06:33; Admin Dose 40 MG; Start 07/20/16 at 10:10 Vancomycin HCl/ Sodium Chloride (Vancocin/NS) 150 ml @ 75 mls/hr Q12H IVPB Last administered on 07/23/16 12:12; Admin Dose 75 MLS/HR; Start 07/21/16 at 01 :00 Docusate Sodium 100 mg 100 mg QHS GTB Last administered on 07/22/16 21:51; Admin Dose 100 MG; Start 07/21/16 at 21:34 Cefepime HCl (Maxipime 1gm/50 ml (Pmx)) 50 ml @ 100 mls/hr Q12 IVPB Last administered on 07/23/16 09:56; Admin Dose 100 MLS/HR; Start 07/22/16 at 21:00 Morphine Sulfate (morphine) 2 mg Q3H PRN IV PAIN LEVEL 7-10; Start 07/22/16 at 18:00 MI JEFFERS Jul 23, 2016 13:05
--- NOTE | 2016-07-23 13:17 | PN ---
Date/Time of Note Date/Time of Note DATE: 07/23/16 TIME: 13:06 Assessment/Plan VTE Prophylaxis VTE Prophylaxis Intervention: SCD's Lines/Catheters IV [facility] Type (from [facility] Saline Lock Urinary Cath still in place: Yes Reason Cath still needed: urinary retention Assessment/Plan Chief Complaint/Hosp Course Assessment and plan - Anoxic encephalopathy status post cardiac arrest after suicide attempt in October 2009 - Ventilator dependent respiratory failure with tracheostomy - Dysphagia with G-tube, continue fiber source is 55 cc/h. monitor residual. - Proteus mirabilis urinary tract infection. Dr. Matias is following an infection disease consultation. Continue antibiotics per ID. - Sepsis with Staphylococcus bacteremia - Suspected deep deep tissue injury. Wound care consult. - Possible upper GI bleed. Dr. Veras is following from gastroenterology consultation -Seizure disorder, continue Keppra. -Schizophrenia -Hyponatremia, continue water flushes with G-tube. Dr. Aceves is following in nephrology consultation. Continue Protonix for peptic ulcer disease prophylaxis Further recommendations based on clinical course. Plan of care discussed with Dr. Courtney. Problems: Subjective 24 Hr Interval Summary Free Text/Dictation No acute events, patient tolerates G-tube feeding well. Exam/Review of Systems Vital Signs Vitals Vital Signs Date Time Temp Pulse Resp B/P Pulse Ox O2 Delivery O2 Flow Rate FiO2 07/23/16 12:18 62 07/23/16 11:20 98.5 18 114/52 99 07/23/16 11:20 40 07/19/16 12:54 Room Air Intake and Output 07/22/16 07/22/16 07/23/16 15:00 23:00 07:00 Intake Total 100 ml 1350 ml 1100 ml Output Total 800 ml 600 ml Balance 100 ml 550 ml 500 ml Exam Physical Exam Const: Chronically ill-appearing. Eyes open, does not follow any commands. Head: Atraumatic Eyes: Normal Conjunctiva. Pupils equal reactive. ENT: Normal External Ears, Nose and Mouth. Mucous membranes are dry. Neck: Tracheostomy site is clean without erythema, induration or drainage. No meningismus. Resp: Breath sounds diminished bilaterally with crackles and rhonchi right greater than left. No wheezing. Cardio: Regular rate and rhythm, no murmurs Abd: Soft, non tender, non distended. Normal bowel sounds. G-tube site without erythema induration or drainage. Skin: No petechiae or rashes. Back: No midline or flank tenderness Ext: No cyanosis, or edema. Contracted Neur: Alert but unresponsive. No facial droop. Results Result Diagram: 07/22/16 0542 07/23/16 0540 Results 24 hrs Laboratory Tests Test 07/23/16 05:40 Anion Gap 18 H Blood Urea Nitrogen 12 Calcium Level 9.2 Carbon Dioxide Level 23 Chloride Level 110 Creatinine 0.59 L Glucose Level 111 Magnesium Level 2.1 Potassium Level 4.1 Sodium Level 147 H Medications Medications Current Medications Levetiracetam/ Sodium Chloride (Keppra Iv/NS) 115 ml @ 460 mls/hr BID IVPB Last administered on 07/23/16 08:43; Admin Dose 460 MLS/HR; Start 07/19/16 at 13:30 Acetaminophen (Tylenol Tab) 650 mg Q4 PRN GTB PAIN AND OR ELEVATED TEMP; Start 07/19/16 at 14:00 Albuterol (Proventil 0.083% (Neb)) 2.5 mg Q3H PRN NEB WHEEZING AND SOB; Start 07/19/16 at 14:00 Ascorbic Acid (Vitamin C) 500 mg DAILY GTB Last administered on 07/23/16 08:43 ; Admin Dose 500 MG; Start 07/20/16 at 09:00 Bisacodyl (Dulcolax Supp) 10 mg Q24H PRN [place] CONSTIPATION; Start 07/19/16 at 14: 00 Chlorhexidine Gluconate (Peridex) 15 ml Q12 MM Last administered on 07/23/16 08:43; Admin Dose 15 ML; Start 07/19/16 at 21:00 Ferrous Sulfate (Feosol Liquid Cup) 300 mg BID GTB Last administered on 08:43; Admin Dose 300 MG; Start 07/19/16 at 21:00 Levetiracetam (Keppra Liquid) 1,500 mg BID GTB ; Start 07/19/16 at 21:00; Status Future Hold Magnesium Hydroxide (Milk Of Mag) 30 ml Q24H PRN GTB CONSTIPATION; Start at 14:00 Metoclopramide HCl (Reglan Liq) 5 mg Q8 GTB Last administered on 07/23/16 06: 34; Admin Dose 5 MG; Start 07/19/16 at 14:00 Pantoprazole 40 mg 40 mg BID@06,18 IV Last administered on 07/23/16 06:33; Admin Dose 40 MG; Start 07/20/16 at 10:10 Vancomycin HCl/ Sodium Chloride (Vancocin/NS) 150 ml @ 75 mls/hr Q12H IVPB Last administered on 07/23/16 12:12; Admin Dose 75 MLS/HR; Start 07/21/16 at 01 :00 Docusate Sodium 100 mg 100 mg QHS GTB Last administered on 07/22/16 21:51; Admin Dose 100 MG; Start 07/21/16 at 21:34 Cefepime HCl (Maxipime 1gm/50 ml (Pmx)) 50 ml @ 100 mls/hr Q12 IVPB Last administered on 07/23/16 09:56; Admin Dose 100 MLS/HR; Start 07/22/16 at 21:00 Morphine Sulfate (morphine) 2 mg Q3H PRN IV PAIN LEVEL 7-10; Start 07/22/16 at 18:00 JH WISDOM Jul 23, 2016 13:16
--- NOTE | 2016-07-23 17:59 | CONS ---
Date/Time of Note Date/Time of Note DATE: 07/23/16 TIME: 17:59 Assessment/Plan Assessment/Plan Additional Assessment/Plan Assessment/Plan Additional Assessment/Plan 1. Aspiration pneumonia. 2. Vent-dependent respiratory failure. 3. Vegetative state. 4. Questionable upper gastrointestinal bleeding. Stool guaiac is negative. 5. Anoxic encephalopathy. 6. Hypernatremia. 7. UTI Plan continue g tube feeding PPI and Reglan Consultation Date/Type/Reason Admit Date/Time Jul 19, 2016 at 13:30 Type of Consultation: Pulmonary Referring Provider: RICHARD GIRARD MD 24 HR Interval Summary Subjective hx not possible: pt non-verbal, pt critical Exam/Review of Systems Vital Signs Vitals Vital Signs Date Time Temp Pulse Resp B/P Pulse Ox O2 Delivery O2 Flow Rate FiO2 07/23/16 17:40 78 14 100 40 07/23/16 16:02 98.6 124/70 07/19/16 12:54 Room Air Intake and Output 07/22/16 07/22/16 07/23/16 15:00 23:00 07:00 Intake Total 100 ml 1350 ml 1100 ml Output Total 800 ml 600 ml Balance 100 ml 550 ml 500 ml Exam Constitutional: alert, oriented, well developed Psych: nl mood/affect, no complaints Head: atraumatic, normocephalic Eyes: EOMI, PERRL, nl conjunctiva, nl lids, nl sclera ENMT: nl external ears & nose, nl lips & teeth, nl nasal mucosa & septum Neck: non-tender, supple Respiratory: clear to auscultation, normal air movement Cardiovascular: nl pulses, regular rate and rhythm Gastrointestinal: nl liver, spleen, non-tender, soft Musculoskeletal: nl extremities to inspection, nl gait and stance Extremities: normal pulses Neurological: [employer] II-XII intact, nl mental status, nl speech, nl strength Skin: nl turgor, No rash or lesions Lymph: nl lymph nodes Results Result Diagram: 07/22/16 0542 07/23/16 0540 Results 24 hrs Laboratory Tests Test 07/23/16 05:40 Anion Gap 18 H Blood Urea Nitrogen 12 Calcium Level 9.2 Carbon Dioxide Level 23 Chloride Level 110 Creatinine 0.59 L Glucose Level 111 Magnesium Level 2.1 Potassium Level 4.1 Sodium Level 147 H Medications Medications Current Medications Levetiracetam/ Sodium Chloride (Keppra Iv/NS) 115 ml @ 460 mls/hr BID IVPB Last administered on 07/23/16 08:43; Admin Dose 460 MLS/HR; Start 07/19/16 at 13:30 Acetaminophen (Tylenol Tab) 650 mg Q4 PRN GTB PAIN AND OR ELEVATED TEMP; Start 07/19/16 at 14:00 Albuterol (Proventil 0.083% (Neb)) 2.5 mg Q3H PRN NEB WHEEZING AND SOB; Start 07/19/16 at 14:00 Ascorbic Acid (Vitamin C) 500 mg DAILY GTB Last administered on 07/23/16 08:43 ; Admin Dose 500 MG; Start 07/20/16 at 09:00 Bisacodyl (Dulcolax Supp) 10 mg Q24H PRN [place] CONSTIPATION; Start 07/19/16 at 14: 00 Chlorhexidine Gluconate (Peridex) 15 ml Q12 MM Last administered on 07/23/16 08:43; Admin Dose 15 ML; Start 07/19/16 at 21:00 Ferrous Sulfate (Feosol Liquid Cup) 300 mg BID GTB Last administered on 08:43; Admin Dose 300 MG; Start 07/19/16 at 21:00 Levetiracetam (Keppra Liquid) 1,500 mg BID GTB ; Start 07/19/16 at 21:00; Status Future Hold Magnesium Hydroxide (Milk Of Mag) 30 ml Q24H PRN GTB CONSTIPATION Last administered on 07/23/16 13:11; Admin Dose 30 ML; Start 07/19/16 at 14:00 Metoclopramide HCl (Reglan Liq) 5 mg Q8 GTB Last administered on 07/23/16 13: 09; Admin Dose 5 MG; Start 07/19/16 at 14:00 Pantoprazole 40 mg 40 mg BID@06,18 IV Last administered on 07/23/16 06:33; Admin Dose 40 MG; Start 07/20/16 at 10:10 Vancomycin HCl/ Sodium Chloride (Vancocin/NS) 150 ml @ 75 mls/hr Q12H IVPB Last administered on 07/23/16 12:12; Admin Dose 75 MLS/HR; Start 07/21/16 at 01 :00 Docusate Sodium 100 mg 100 mg QHS GTB Last administered on 07/22/16 21:51; Admin Dose 100 MG; Start 07/21/16 at 21:34 Cefepime HCl (Maxipime 1gm/50 ml (Pmx)) 50 ml @ 100 mls/hr Q12 IVPB Last administered on 07/23/16 09:56; Admin Dose 100 MLS/HR; Start 07/22/16 at 21:00 Morphine Sulfate (morphine) 2 mg Q3H PRN IV PAIN LEVEL 7-10; Start 07/22/16 at 18:00 KENAN JAUREGUI MD Jul 23, 2016 17:59
[2016-07-23] MEDS ORDERED: LIDOCAINE 1% (MDV) 20 ML INJ SC ONE (19:30)
--- NOTE | 2016-07-23 20:13 | CONS ---
Date/Time of Note Date/Time of Note DATE: 07/23/16 TIME: 20:12 Assessment/Plan Assessment/Plan Chief Complaint/Hosp Course SUBJECTIVE: No acute changes. The patient is nonverbal, noncommunicative, lying comfortably in bed. He is afebrile. MICROBIOLOGY: Blood culture on admission grew coagulase-negative staph species. Urine culture grew Proteus mirabilis, susceptible to cefotaxime, ampicillin, tobramycin, Bactrim, gentamicin. INDWELLINGS: Trach, PEG, Charles. ANTIMICROBIALS: 1. Vancomycin. 2. Cefepime. PHYSICAL EXAMINATION: GENERAL: Chronically ill-appearing, middle-aged Kisw[place]ili man who is lying comfortably in bed. HEENT: Head atraumatic, normocephalic. Sclerae anicteric. Buccal mucosa dry. NECK: Supple. Tracheostomy present. CHEST: Rise symmetrical. Breath sounds diminished at the bases. HEART: S1, S2. ABDOMEN: Soft, bowel tones present. EXTREMITIES: Contractured. ASSESSMENT: 1. Sepsis, resolving. 2. Healthcare-associated pneumonia. 3. Multi-drug resistant urinary tract infection. 4. Coagulase-negative Staphylococcus bacteremia cw contaminant. 5. Persistent vegetative state. PLAN: The patient remains stable. Continue abx, follow recommendations of consultants. DW staff Problems: Consultation Date/Type/Reason Admit Date/Time Jul 19, 2016 at 13:30 Initial Consult Date Type of Consultation: ID Referring Provider: RICHARD GIRARD MD Exam/Review of Systems Vital Signs Vitals Vital Signs Date Time Temp Pulse Resp B/P Pulse Ox O2 Delivery O2 Flow Rate FiO2 07/23/16 19:52 62 14 99 40 07/23/16 19:52 98.0 117/73 07/19/16 12:54 Room Air Intake and Output 07/22/16 07/22/16 07/23/16 15:00 23:00 07:00 Intake Total 100 ml 1350 ml 1100 ml Output Total 800 ml 600 ml Balance 100 ml 550 ml 500 ml Results Result Diagram: 07/22/16 0542 07/23/16 0540 Results 24 hrs Laboratory Tests Test 07/23/16 05:40 Anion Gap 18 H Blood Urea Nitrogen 12 Calcium Level 9.2 Carbon Dioxide Level 23 Chloride Level 110 Creatinine 0.59 L Glucose Level 111 Magnesium Level 2.1 Potassium Level 4.1 Sodium Level 147 H Medications Medications Current Medications Levetiracetam/ Sodium Chloride (Keppra Iv/NS) 115 ml @ 460 mls/hr BID IVPB Last administered on 07/23/16 08:43; Admin Dose 460 MLS/HR; Start 07/19/16 at 13:30 Acetaminophen (Tylenol Tab) 650 mg Q4 PRN GTB PAIN AND OR ELEVATED TEMP; Start 07/19/16 at 14:00 Albuterol (Proventil 0.083% (Neb)) 2.5 mg Q3H PRN NEB WHEEZING AND SOB; Start 07/19/16 at 14:00 Ascorbic Acid (Vitamin C) 500 mg DAILY GTB Last administered on 07/23/16 08:43 ; Admin Dose 500 MG; Start 07/20/16 at 09:00 Bisacodyl (Dulcolax Supp) 10 mg Q24H PRN [place] CONSTIPATION; Start 07/19/16 at 14: 00 Chlorhexidine Gluconate (Peridex) 15 ml Q12 MM Last administered on 07/23/16 08:43; Admin Dose 15 ML; Start 07/19/16 at 21:00 Ferrous Sulfate (Feosol Liquid Cup) 300 mg BID GTB Last administered on 08:43; Admin Dose 300 MG; Start 07/19/16 at 21:00 Levetiracetam (Keppra Liquid) 1,500 mg BID GTB ; Start 07/19/16 at 21:00; Status Future Hold Magnesium Hydroxide (Milk Of Mag) 30 ml Q24H PRN GTB CONSTIPATION Last administered on 07/23/16 13:11; Admin Dose 30 ML; Start 07/19/16 at 14:00 Metoclopramide HCl (Reglan Liq) 5 mg Q8 GTB Last administered on 07/23/16 13: 09; Admin Dose 5 MG; Start 07/19/16 at 14:00 Pantoprazole 40 mg 40 mg BID@06,18 IV Last administered on 07/23/16 18:38; Admin Dose 40 MG; Start 07/20/16 at 10:10 Vancomycin HCl/ Sodium Chloride (Vancocin/NS) 150 ml @ 75 mls/hr Q12H IVPB Last administered on 07/23/16 12:12; Admin Dose 75 MLS/HR; Start 07/21/16 at 01 :00 Docusate Sodium 100 mg 100 mg QHS GTB Last administered on 07/22/16 21:51; Admin Dose 100 MG; Start 07/21/16 at 21:34 Cefepime HCl (Maxipime 1gm/50 ml (Pmx)) 50 ml @ 100 mls/hr Q12 IVPB Last administered on 07/23/16 09:56; Admin Dose 100 MLS/HR; Start 07/22/16 at 21:00 Morphine Sulfate (morphine) 2 mg Q3H PRN IV PAIN LEVEL 7-10; Start 07/22/16 at 18:00 YURY YOON NP Jul 23, 2016 20:13
[2016-07-23] MEDS: DOCUSATE SODIUM 10 MG/ML (10ML CUP) GTB SCH (22:10)
[2016-07-24] VITALS (24 sets, daily range): BP systolic 113–135; BP diastolic 62–85; PULSE 51–69; RESP 14–20
[2016-07-24] MEDS: VANCOMYCIN 750 MG in SOD CHLORIDE 0.9% 150 ML IVPB SCH ×2 (00:53→12:56)
[2016-07-24] MEDS: PANTOPRAZOLE 40 MG INJ IV SCH ×2 (06:39→18:27)
[2016-07-24] MEDS: METOCLOPRAMIDE (1 MG/ML) 10 ML CUP GTB SCH ×3 (06:39→20:32)
[2016-07-24 07:59] LABS: POTASSIUM 4.7 mmol/L (3.5-5.1)
[2016-07-24 08:01] LABS: CREATININE 0.48 mg/dl (0.61-1.24)
[2016-07-24 08:02] LABS: CALCIUM 9.1 mg/dl (8.4-10.2)
[2016-07-24 08:24] LABS: BASOPHILS % 0.3 % (0.0-2.0); EOSINOPHILS # 0.2 10^3/ul (0.0-0.5); EOSINOPHILS % 2.5 % (0.0-7.0); HEMATOCRIT 32.4 % (42.0-52.0); HEMOGLOBIN 10.8 g/dl (14.0-18.0); LYMPHOCYTES # 1.3 10^3/ul (0.8-2.9); LYMPHOCYTES % 18.6 % (15.0-51.0); MEAN CORPUSCULAR HEMOGLOBIN 27.5 pg (29.0-33.0); MEAN CORPUSCULAR HGB CONC 33.2 g/dl (32.0-37.0); MEAN CORPUSCULAR VOLUME 82.9 fl (82.0-101.0); MEAN PLATELET VOLUME 9.5 fl (7.4-10.4); MONOCYTE # 0.5 10^3/ul (0.3-0.9); MONOCYTES % 6.5 % (0.0-11.0); NEUTROPHIL # 5.1 10^3/ul (1.6-7.5); NEUTROPHILS % 72.1 % (39.0-77.0); PLATELET COUNT 226 10^3/UL (140-440); RED BLOOD COUNT 3.91 10^6/ul (4.70-6.10); RED CELL DISTRIBUTION WIDTH 14.8 % (11.5-14.5); UNCORRECTED WBC 7.1 10^3/ul (4.8-10.8); WHITE BLOOD COUNT 7.1 10^3/ul (4.8-10.8)
[2016-07-24 08:27] LABS: CONDITION 1; LH ANALYZER COMMENTS 1
[2016-07-24] MEDS: FERROUS SULFATE 60 MG/ML 5ML CUP GTB SCH ×2 (08:38→20:32)
[2016-07-24] MEDS: CHLORHEXIDINE GLUCONATE 15 ML UD CUP MM SCH ×2 (08:38→20:32)
[2016-07-24] MEDS: ASCORBIC ACID 500 MG TAB GTB SCH (08:38)
[2016-07-24] MEDS: CEFEPIME 1GM/50 ML (PMX) 50 ML IVPB SCH ×2 (08:38→21:06)
[2016-07-24] MEDS: LEVETIRACETAM IV 1,500 MG in SOD CHLORIDE 0.9% 100 ML IVPB SCH ×2 (08:39→20:30)
--- NOTE | 2016-07-24 08:59 | CONS ---
Date/Time of Note Date/Time of Note DATE: 07/24/16 TIME: 08:57 Assessment/Plan Assessment/Plan Additional Assessment/Plan 1. Acute hypernatremia, likely secondary to free water deficit. 2. Sepsis secondary to pneumonia and urinary tract infection. 3. Right lower lobe pneumonia. 4. Acute prerenal azotemia secondary to moderate to severe dehydration. 5. History of anxiety. 6. History of schizophrenia. 7. History of chronic respiratory failure, status post tracheostomy, on a ventilator. 8. History of anoxic encephalopathy. 9. History of dysphagia, status post gastrostomy tube placement. Plan: pt is off IVF , on Tube feeding, Na slowly improved to normal today change Free water to every 6 hr 100 cc BP stable will follow up Consultation Date/Type/Reason Admit Date/Time Jul 19, 2016 at 13:30 Initial Consult Date 07/19/2016 Type of Consultation: NEPHRHOLOGY Reason for Consultation Hypernatremia, Prerenal azotemia Referring Provider: RICHARD GIRARD MD 24 HR Interval Summary Free Text/Dictation Na normal, Creatinine normal, BP stable Exam/Review of Systems Vital Signs Vitals Vital Signs Date Time Temp Pulse Resp B/P Pulse Ox O2 Delivery O2 Flow Rate FiO2 07/24/16 07:54 98.3 71 20 123/74 99 07/24/16 07:10 40 Intake and Output 07/23/16 07/23/16 07/24/16 15:00 23:00 07:00 Intake Total 1415 ml 1300 ml Output Total 300 ml 900 ml Balance 1115 ml 400 ml Exam GENERAL: Patient is currently connected to the ventilator. The tracheostomy site is in place, site is clear. No erythema, no discharge. NECK: Supple. LUNGS: Bilateral decreased breath sounds at both lung bases. Right lower lobe rales present. No wheezing. HEART: S1, S2, tachycardia. ABDOMEN: Soft. G-tube in place. EXTREMITIES: No clubbing, cyanosis, or edema. NEUROLOGICAL: Uncooperative for exam. The patient has anoxic encephalopathy. Results Result Diagram: 07/24/16 0755 07/24/16 0755 Results 24 hrs Laboratory Tests Test 07/24/16 07:55 Anion Gap 18 H Basophils # 0.0 Basophils % 0.3 Blood Morphology Comment Blood Urea Nitrogen 11 Calcium Level 9.1 Carbon Dioxide Level 23 Chloride Level 107 Creatinine 0.48 L Eosinophils # 0.2 Eosinophils % 2.5 Glucose Level 124 Hematocrit 32.4 L Hemoglobin 10.8 L Lymphocytes # 1.3 Lymphocytes % 18.6 Mean Corpuscular Hemoglobin 27.5 L Mean Corpuscular Hemoglobin Concent 33.2 Mean Corpuscular Volume 82.9 Mean Platelet Volume 9.5 Monocytes # 0.5 Monocytes % 6.5 Neutrophils # 5.1 Neutrophils % 72.1 Nucleated Red Blood Cells # 0.0 Nucleated Red Blood Cells % 0.0 Platelet Count 226 Potassium Level 4.7 Red Blood Count 3.91 L Red Cell Distribution Width 14.8 H Sodium Level 143 White Blood Count 7.1 # Medications Medications Current Medications Levetiracetam/ Sodium Chloride (Keppra Iv/NS) 115 ml @ 460 mls/hr BID IVPB Last administered on 07/24/16 08:39; Admin Dose 460 MLS/HR; Start 07/19/16 at 13:30 Acetaminophen (Tylenol Tab) 650 mg Q4 PRN GTB PAIN AND OR ELEVATED TEMP; Start 07/19/16 at 14:00 Albuterol (Proventil 0.083% (Neb)) 2.5 mg Q3H PRN NEB WHEEZING AND SOB; Start 07/19/16 at 14:00 Ascorbic Acid (Vitamin C) 500 mg DAILY GTB Last administered on 07/24/16 08:38 ; Admin Dose 500 MG; Start 07/20/16 at 09:00 Bisacodyl (Dulcolax Supp) 10 mg Q24H PRN [place] CONSTIPATION; Start 07/19/16 at 14: 00 Chlorhexidine Gluconate (Peridex) 15 ml Q12 MM Last administered on 07/24/16 08:38; Admin Dose 15 ML; Start 07/19/16 at 21:00 Ferrous Sulfate (Feosol Liquid Cup) 300 mg BID GTB Last administered on 08:38; Admin Dose 300 MG; Start 07/19/16 at 21:00 Levetiracetam (Keppra Liquid) 1,500 mg BID GTB ; Start 07/19/16 at 21:00; Status Future Hold Magnesium Hydroxide (Milk Of Mag) 30 ml Q24H PRN GTB CONSTIPATION Last administered on 07/23/16 13:11; Admin Dose 30 ML; Start 07/19/16 at 14:00 Metoclopramide HCl (Reglan Liq) 5 mg Q8 GTB Last administered on 07/24/16 06: 39; Admin Dose 5 MG; Start 07/19/16 at 14:00 Pantoprazole 40 mg 40 mg BID@06,18 IV Last administered on 07/24/16 06:39; Admin Dose 40 MG; Start 07/20/16 at 10:10 Vancomycin HCl/ Sodium Chloride (Vancocin/NS) 150 ml @ 75 mls/hr Q12H IVPB Last administered on 07/24/16 00:53; Admin Dose 75 MLS/HR; Start 07/21/16 at 01 :00 Docusate Sodium 100 mg 100 mg QHS GTB Last administered on 07/23/16 22:10; Admin Dose 100 MG; Start 07/21/16 at 21:34 Cefepime HCl (Maxipime 1gm/50 ml (Pmx)) 50 ml @ 100 mls/hr Q12 IVPB Last administered on 07/24/16 08:38; Admin Dose 100 MLS/HR; Start 07/22/16 at 21:00 Morphine Sulfate (morphine) 2 mg Q3H PRN IV PAIN LEVEL 7-10; Start 07/22/16 at 18:00 UMM MANNING MD Jul 24, 2016 08:58
--- NOTE | 2016-07-24 10:05 | PN ---
Date/Time of Note Date/Time of Note DATE: 07/24/16 TIME: 10:04 Assessment/Plan VTE Prophylaxis VTE Prophylaxis Intervention: other Lines/Catheters IV Catheter Type (from [facility]): Saline Lock Urinary Cath still in place: Yes Assessment/Plan Assessment/Plan - Anoxic encephalopathy status post cardiac arrest after suicide attempt in October 2009 - Ventilator dependent respiratory failure with tracheostomy - Dysphagia with G-tube, continue fiber source is 55 cc/h. monitor residual. - Proteus mirabilis urinary tract infection. Dr. Matias is following an infection disease consultation. Continue antibiotics per ID. - Sepsis with Staphylococcus bacteremia - per ID - picc line insertion today - Suspected deep deep tissue injury. Wound care consult. - Possible upper GI bleed. Dr. Veras is following from gastroenterology consultation -Seizure disorder, continue Keppra. -Schizophrenia -Hyponatremia, continue water flushes with G-tube. Dr. Aceves is following in nephrology consultation. Continue Protonix for peptic ulcer disease prophylaxis Further recommendations based on clinical course. Plan of care discussed with Dr. Courtney. Exam/Review of Systems Vital Signs Vitals Vital Signs Date Time Temp Pulse Resp B/P Pulse Ox O2 Delivery O2 Flow Rate FiO2 07/24/16 09:02 69 07/24/16 07:54 98.3 20 123/74 99 07/24/16 07:10 40 Intake and Output 07/23/16 07/23/16 07/24/16 15:00 23:00 07:00 Intake Total 1415 ml 1300 ml Output Total 300 ml 900 ml Balance 1115 ml 400 ml Exam Constitutional: alert, non-verbal Neck: non-tender Respiratory: diminished breath sounds Cardiovascular: nl pulses Gastrointestinal: non-tender, soft Musculoskeletal: other (BUE/BLE contractures) Extremities: normal pulses Neurological: confused Skin: other Lymph: nontender Results Result Diagram: 07/24/16 0755 07/24/16 0755 Results 24 hrs Laboratory Tests Test 07/24/16 07:55 07/24/16 09:12 Anion Gap 18 H Basophils # 0.0 Basophils % 0.3 Blood Morphology Comment Blood Urea Nitrogen 11 Calcium Level 9.1 Carbon Dioxide Level 23 Chloride Level 107 Creatinine 0.48 L Eosinophils # 0.2 Eosinophils % 2.5 Glucose Level 124 Hematocrit 32.4 L Hemoglobin 10.8 L Lymphocytes # 1.3 Lymphocytes % 18.6 Mean Corpuscular Hemoglobin 27.5 L Mean Corpuscular Hemoglobin Concent 33.2 Mean Corpuscular Volume 82.9 Mean Platelet Volume 9.5 Monocytes # 0.5 Monocytes % 6.5 Neutrophils # 5.1 Neutrophils % 72.1 Nucleated Red Blood Cells # 0.0 Nucleated Red Blood Cells % 0.0 Platelet Count 226 Potassium Level 4.7 Red Blood Count 3.91 L Red Cell Distribution Width 14.8 H Sodium Level 143 White Blood Count 7.1 # Lab Scanned Report REFERENCE LAB Medications Medications Current Medications Levetiracetam/ Sodium Chloride (Keppra Iv/NS) 115 ml @ 460 mls/hr BID IVPB Last administered on 07/24/16 08:39; Admin Dose 460 MLS/HR; Start 07/19/16 at 13:30 Acetaminophen (Tylenol Tab) 650 mg Q4 PRN GTB PAIN AND OR ELEVATED TEMP; Start 07/19/16 at 14:00 Albuterol (Proventil 0.083% (Neb)) 2.5 mg Q3H PRN NEB WHEEZING AND SOB; Start 07/19/16 at 14:00 Ascorbic Acid (Vitamin C) 500 mg DAILY GTB Last administered on 07/24/16 08:38 ; Admin Dose 500 MG; Start 07/20/16 at 09:00 Bisacodyl (Dulcolax Supp) 10 mg Q24H PRN [place] CONSTIPATION; Start 07/19/16 at 14: 00 Chlorhexidine Gluconate (Peridex) 15 ml Q12 MM Last administered on 07/24/16 08:38; Admin Dose 15 ML; Start 07/19/16 at 21:00 Ferrous Sulfate (Feosol Liquid Cup) 300 mg BID GTB Last administered on 08:38; Admin Dose 300 MG; Start 07/19/16 at 21:00 Levetiracetam (Keppra Liquid) 1,500 mg BID GTB ; Start 07/19/16 at 21:00; Status Future Hold Magnesium Hydroxide (Milk Of Mag) 30 ml Q24H PRN GTB CONSTIPATION Last administered on 07/23/16 13:11; Admin Dose 30 ML; Start 07/19/16 at 14:00 Metoclopramide HCl (Reglan Liq) 5 mg Q8 GTB Last administered on 07/24/16 06: 39; Admin Dose 5 MG; Start 07/19/16 at 14:00 Pantoprazole 40 mg 40 mg BID@06,18 IV Last administered on 07/24/16 06:39; Admin Dose 40 MG; Start 07/20/16 at 10:10 Vancomycin HCl/ Sodium Chloride (Vancocin/NS) 150 ml @ 75 mls/hr Q12H IVPB Last administered on 07/24/16 00:53; Admin Dose 75 MLS/HR; Start 07/21/16 at 01 :00 Docusate Sodium 100 mg 100 mg QHS GTB Last administered on 07/23/16 22:10; Admin Dose 100 MG; Start 07/21/16 at 21:34 Cefepime HCl (Maxipime 1gm/50 ml (Pmx)) 50 ml @ 100 mls/hr Q12 IVPB Last administered on 07/24/16 08:38; Admin Dose 100 MLS/HR; Start 07/22/16 at 21:00 Morphine Sulfate (morphine) 2 mg Q3H PRN IV PAIN LEVEL 7-10; Start 07/22/16 at 18:00 SHELLEY HERNANDEZ Jul 24, 2016 10:05
--- NOTE | 2016-07-24 12:01 | CONS ---
Date/Time of Note Date/Time of Note DATE: 07/24/16 TIME: 12:00 Assessment/Plan Assessment/Plan Chief Complaint/Hosp Course SUBJECTIVE: No acute changes. The patient is nonverbal, noncommunicative, lying comfortably in bed. No fevers. MICROBIOLOGY: Blood culture on admission grew coagulase-negative staph species. Urine culture grew Proteus mirabilis, susceptible to cefotaxime, ampicillin, tobramycin, Bactrim, gentamicin. INDWELLINGS: Trach, PEG, Charles. ANTIMICROBIALS: 1. Vancomycin. 2. Cefepime. PHYSICAL EXAMINATION: GENERAL: Chronically ill-appearing, middle-aged [place]ic man who is lying comfortably in bed. HEENT: Head atraumatic, normocephalic. Sclerae anicteric. Buccal mucosa dry. NECK: Supple. Tracheostomy present. CHEST: Rise symmetrical. Breath sounds diminished at the bases. HEART: S1, S2. ABDOMEN: Soft, bowel tones present. EXTREMITIES: Contractured. ASSESSMENT: 1. Sepsis, resolving. 2. Healthcare-associated pneumonia. 3. Multi-drug resistant urinary tract infection. 4. Coagulase-negative Staphylococcus bacteremia cw contaminant. 5. Persistent vegetative state. PLAN: The patient remains stable. Continue abx for 5 more days, follow recommendations of consultants. DW staff Problems: Consultation Date/Type/Reason Admit Date/Time Jul 19, 2016 at 13:30 Type of Consultation: id Referring Provider: RICHARD GIRARD MD Exam/Review of Systems Vital Signs Vitals Vital Signs Date Time Temp Pulse Resp B/P Pulse Ox O2 Delivery O2 Flow Rate FiO2 07/24/16 11:56 98.9 65 18 122/83 100 07/24/16 09:10 30 Intake and Output 07/23/16 07/23/16 07/24/16 15:00 23:00 07:00 Intake Total 1415 ml 1300 ml Output Total 300 ml 900 ml Balance 1115 ml 400 ml Results Result Diagram: 07/24/16 0755 07/24/16 0755 Results 24 hrs Laboratory Tests Test 07/24/16 07:55 07/24/16 09:12 Anion Gap 18 H Basophils # 0.0 Basophils % 0.3 Blood Morphology Comment Blood Urea Nitrogen 11 Calcium Level 9.1 Carbon Dioxide Level 23 Chloride Level 107 Creatinine 0.48 L Eosinophils # 0.2 Eosinophils % 2.5 Glucose Level 124 Hematocrit 32.4 L Hemoglobin 10.8 L Lymphocytes # 1.3 Lymphocytes % 18.6 Mean Corpuscular Hemoglobin 27.5 L Mean Corpuscular Hemoglobin Concent 33.2 Mean Corpuscular Volume 82.9 Mean Platelet Volume 9.5 Monocytes # 0.5 Monocytes % 6.5 Neutrophils # 5.1 Neutrophils % 72.1 Nucleated Red Blood Cells # 0.0 Nucleated Red Blood Cells % 0.0 Platelet Count 226 Potassium Level 4.7 Red Blood Count 3.91 L Red Cell Distribution Width 14.8 H Sodium Level 143 White Blood Count 7.1 # Lab Scanned Report REFERENCE LAB Medications Medications Current Medications Levetiracetam/ Sodium Chloride (Keppra Iv/NS) 115 ml @ 460 mls/hr BID IVPB Last administered on 07/24/16 08:39; Admin Dose 460 MLS/HR; Start 07/19/16 at 13:30 Acetaminophen (Tylenol Tab) 650 mg Q4 PRN GTB PAIN AND OR ELEVATED TEMP; Start 07/19/16 at 14:00 Albuterol (Proventil 0.083% (Neb)) 2.5 mg Q3H PRN NEB WHEEZING AND SOB; Start 07/19/16 at 14:00 Ascorbic Acid (Vitamin C) 500 mg DAILY GTB Last administered on 07/24/16 08:38 ; Admin Dose 500 MG; Start 07/20/16 at 09:00 Bisacodyl (Dulcolax Supp) 10 mg Q24H PRN [place] CONSTIPATION; Start 07/19/16 at 14: 00 Chlorhexidine Gluconate (Peridex) 15 ml Q12 MM Last administered on 07/24/16 08:38; Admin Dose 15 ML; Start 07/19/16 at 21:00 Ferrous Sulfate (Feosol Liquid Cup) 300 mg BID GTB Last administered on 08:38; Admin Dose 300 MG; Start 07/19/16 at 21:00 Levetiracetam (Keppra Liquid) 1,500 mg BID GTB ; Start 07/19/16 at 21:00; Status Future Hold Magnesium Hydroxide (Milk Of Mag) 30 ml Q24H PRN GTB CONSTIPATION Last administered on 07/23/16 13:11; Admin Dose 30 ML; Start 07/19/16 at 14:00 Metoclopramide HCl (Reglan Liq) 5 mg Q8 GTB Last administered on 07/24/16 06: 39; Admin Dose 5 MG; Start 07/19/16 at 14:00 Pantoprazole 40 mg 40 mg BID@06,18 IV Last administered on 07/24/16 06:39; Admin Dose 40 MG; Start 07/20/16 at 10:10 Vancomycin HCl/ Sodium Chloride (Vancocin/NS) 150 ml @ 75 mls/hr Q12H IVPB Last administered on 07/24/16 00:53; Admin Dose 75 MLS/HR; Start 07/21/16 at 01 :00 Docusate Sodium 100 mg 100 mg QHS GTB Last administered on 07/23/16 22:10; Admin Dose 100 MG; Start 07/21/16 at 21:34 Cefepime HCl (Maxipime 1gm/50 ml (Pmx)) 50 ml @ 100 mls/hr Q12 IVPB Last administered on 07/24/16 08:38; Admin Dose 100 MLS/HR; Start 07/22/16 at 21:00 Morphine Sulfate (morphine) 2 mg Q3H PRN IV PAIN LEVEL 7-10; Start 07/22/16 at 18:00 YURY YOON NP Jul 24, 2016 12:01
--- NOTE | 2016-07-24 13:10 | CONS ---
Date/Time of Note Date/Time of Note DATE: 07/24/16 TIME: 13:08 Assessment/Plan Assessment/Plan Additional Assessment/Plan Ventilator settings are; assist control of 14, tidal volume 550, 40% FiO2, PEEP of 0. Next Assessment and recommendations; 1. Patient admitted with UTI and sepsis with clinical improvement. 2. Severe anoxic encephalopathy. 3. Stable seizure disorder. 4. Patient remains ventilator dependent. Continue current treatment. Prognosis remains poor. Consultation Date/Type/Reason Admit Date/Time Jul 19, 2016 at 13:30 Type of Consultation: Pulmonary Referring Provider: RICHARD GIRARD MD 24 HR Interval Summary Free Text/Dictation Patient condition remains unchanged. Has remained hemodynamically stable. Remains ventilator dependent owing to underlying severe anoxic encephalopathy. General examination; middle aged man on ventilator via tracheostomy currently in no distress. Remains unresponsive. Exam/Review of Systems Vital Signs Vitals Vital Signs Date Time Temp Pulse Resp B/P Pulse Ox O2 Delivery O2 Flow Rate FiO2 07/24/16 11:56 98.9 65 18 122/83 100 07/24/16 11:15 40 Intake and Output 07/23/16 07/23/16 07/24/16 15:00 23:00 07:00 Intake Total 1415 ml 1300 ml Output Total 300 ml 900 ml Balance 1115 ml 400 ml Exam HEENT examination; patient has flexion contraction of the neck. Tracheostomy in place with clean insertion site. No neck masses. No thyromegaly. No lymphadenopathy. Chest examination; diminished but clear breath sounds bilaterally. S1-S2 audible, no murmurs. Abdomen examination; soft, no organomegaly. G-tube in place. Bowel sounds audible. Extremity examination; no peripheral edema. Patient has severe contractures involving all 4 extremities. PLASTIC ROLLER examination; patient remains unresponsive. Results Result Diagram: 07/24/16 0755 07/24/16 0755 Results 24 hrs Laboratory Tests Test 07/24/16 07:55 07/24/16 09:12 Anion Gap 18 H Basophils # 0.0 Basophils % 0.3 Blood Morphology Comment Blood Urea Nitrogen 11 Calcium Level 9.1 Carbon Dioxide Level 23 Chloride Level 107 Creatinine 0.48 L Eosinophils # 0.2 Eosinophils % 2.5 Glucose Level 124 Hematocrit 32.4 L Hemoglobin 10.8 L Lymphocytes # 1.3 Lymphocytes % 18.6 Mean Corpuscular Hemoglobin 27.5 L Mean Corpuscular Hemoglobin Concent 33.2 Mean Corpuscular Volume 82.9 Mean Platelet Volume 9.5 Monocytes # 0.5 Monocytes % 6.5 Neutrophils # 5.1 Neutrophils % 72.1 Nucleated Red Blood Cells # 0.0 Nucleated Red Blood Cells % 0.0 Platelet Count 226 Potassium Level 4.7 Red Blood Count 3.91 L Red Cell Distribution Width 14.8 H Sodium Level 143 White Blood Count 7.1 # Lab Scanned Report REFERENCE LAB Medications Medications Current Medications Levetiracetam/ Sodium Chloride (Keppra Iv/NS) 115 ml @ 460 mls/hr BID IVPB Last administered on 07/24/16 08:39; Admin Dose 460 MLS/HR; Start 07/19/16 at 13:30 Acetaminophen (Tylenol Tab) 650 mg Q4 PRN GTB PAIN AND OR ELEVATED TEMP; Start 07/19/16 at 14:00 Albuterol (Proventil 0.083% (Neb)) 2.5 mg Q3H PRN NEB WHEEZING AND SOB; Start 07/19/16 at 14:00 Ascorbic Acid (Vitamin C) 500 mg DAILY GTB Last administered on 07/24/16 08:38 ; Admin Dose 500 MG; Start 07/20/16 at 09:00 Bisacodyl (Dulcolax Supp) 10 mg Q24H PRN [place] CONSTIPATION; Start 07/19/16 at 14: 00 Chlorhexidine Gluconate (Peridex) 15 ml Q12 MM Last administered on 07/24/16 08:38; Admin Dose 15 ML; Start 07/19/16 at 21:00 Ferrous Sulfate (Feosol Liquid Cup) 300 mg BID GTB Last administered on 08:38; Admin Dose 300 MG; Start 07/19/16 at 21:00 Levetiracetam (Keppra Liquid) 1,500 mg BID GTB ; Start 07/19/16 at 21:00; Status Future Hold Magnesium Hydroxide (Milk Of Mag) 30 ml Q24H PRN GTB CONSTIPATION Last administered on 07/23/16 13:11; Admin Dose 30 ML; Start 07/19/16 at 14:00 Metoclopramide HCl (Reglan Liq) 5 mg Q8 GTB Last administered on 07/24/16 06: 39; Admin Dose 5 MG; Start 07/19/16 at 14:00 Pantoprazole 40 mg 40 mg BID@06,18 IV Last administered on 07/24/16 06:39; Admin Dose 40 MG; Start 07/20/16 at 10:10 Vancomycin HCl/ Sodium Chloride (Vancocin/NS) 150 ml @ 75 mls/hr Q12H IVPB Last administered on 07/24/16 12:56; Admin Dose 75 MLS/HR; Start 07/21/16 at 01 :00 Docusate Sodium 100 mg 100 mg QHS GTB Last administered on 07/23/16 22:10; Admin Dose 100 MG; Start 07/21/16 at 21:34 Cefepime HCl (Maxipime 1gm/50 ml (Pmx)) 50 ml @ 100 mls/hr Q12 IVPB Last administered on 07/24/16 08:38; Admin Dose 100 MLS/HR; Start 07/22/16 at 21:00 Morphine Sulfate (morphine) 2 mg Q3H PRN IV PAIN LEVEL 7-10; Start 07/22/16 at 18:00 MI JEFFERS Jul 24, 2016 13:10
[2016-07-24] MEDS ORDERED: SOD CHLORIDE 0.9% 100 ML ONE (16:39)
--- NOTE | 2016-07-24 17:26 | RADRPT ---
PROCEDURE: XR Chest. CLINICAL INDICATION: PICC line placement. TECHNIQUE: Single AP portable chest COMPARISON: 07/20/2016 FINDINGS: The cardiomediastinal silhouette is within normal limits of size . Right PICC line catheter tip over lying the proximal superior vena cava. Mild prominence of the pulmonary vascularity. Tracheostomy in place. . No pneumothorax. The osseous structures and soft tissues are unremarkable. IMPRESSION: 1. Mild vascular prominence. Right PICC line catheter tip overlying the proximal superior vena cava . RPTAT:AAJJ Physician Franklin Date Time Electronically viewed and signed by Physician Franklin on 07/24/2016 17:26 GAGE/
--- NOTE | 2016-07-24 17:28 | RADRPT ---
PROCEDURE: XR Chest. CLINICAL INDICATION: PICC line advancement 3 cm. TECHNIQUE: Single AP portable chest COMPARISON: 07/24/2016 FINDINGS: The cardiomediastinal silhouette is within normal limits of size . The right PICC line catheter tip has been advanced 3 cm and now resides at the level of the pulmonary hilum. No other interval chung e. . Delete the No pneumothorax. The osseous structures and soft tissues are unremarkable. IMPRESSION: 1. Satisfactory position of the right PICC line catheter. No other interval change.. RPTAT:AAJJ Physician Franklin Date Time Electronically viewed and signed by Physician Franklin on 07/24/2016 17:27 GAGE/
--- NOTE | 2016-07-24 17:37 | CONS ---
Date/Time of Note Date/Time of Note DATE: 07/24/16 TIME: 17:36 Assessment/Plan Assessment/Plan Additional Assessment/Plan Additional Assessment/Plan 1. Aspiration pneumonia.better 2. Vent-dependent respiratory failure. 3. Vegetative state. 4. Questionable upper gastrointestinal bleeding. Stool guaiac is negative. 5. Anoxic encephalopathy. 6. Hypernatremia. 7. UTI 8.nausea/vomiting resolved Plan continue g tube feeding PPI and Reglan Consultation Date/Type/Reason Admit Date/Time Jul 19, 2016 at 13:30 Type of Consultation: Pulmonary Referring Provider: RICHARD GIRARD MD 24 HR Interval Summary Subjective hx not possible: pt non-verbal Exam/Review of Systems Vital Signs Vitals Vital Signs Date Time Temp Pulse Resp B/P Pulse Ox O2 Delivery O2 Flow Rate FiO2 07/24/16 16:13 63 07/24/16 15:51 98.8 18 128/79 97 07/24/16 15:10 40 Intake and Output 07/23/16 07/23/16 07/24/16 15:00 23:00 07:00 Intake Total 1415 ml 1300 ml Output Total 300 ml 900 ml Balance 1115 ml 400 ml Exam Constitutional: alert, oriented, well developed Psych: nl mood/affect, no complaints Head: atraumatic, normocephalic Eyes: EOMI, PERRL, nl conjunctiva, nl lids, nl sclera ENMT: nl external ears & nose, nl lips & teeth, nl nasal mucosa & septum Neck: non-tender, supple Respiratory: clear to auscultation, normal air movement Cardiovascular: nl pulses, regular rate and rhythm Gastrointestinal: nl liver, spleen, non-tender, soft Musculoskeletal: nl extremities to inspection, nl gait and stance Extremities: normal pulses Neurological: CURRICULUM FACILITATOR II-XII intact, nl mental status, nl speech, nl strength Skin: nl turgor, No rash or lesions Lymph: nl lymph nodes Results Result Diagram: 07/24/16 0755 07/24/16 0755 Results 24 hrs Laboratory Tests Test 07/24/16 07:55 07/24/16 09:12 Anion Gap 18 H Basophils # 0.0 Basophils % 0.3 Blood Morphology Comment Blood Urea Nitrogen 11 Calcium Level 9.1 Carbon Dioxide Level 23 Chloride Level 107 Creatinine 0.48 L Eosinophils # 0.2 Eosinophils % 2.5 Glucose Level 124 Hematocrit 32.4 L Hemoglobin 10.8 L Lymphocytes # 1.3 Lymphocytes % 18.6 Mean Corpuscular Hemoglobin 27.5 L Mean Corpuscular Hemoglobin Concent 33.2 Mean Corpuscular Volume 82.9 Mean Platelet Volume 9.5 Monocytes # 0.5 Monocytes % 6.5 Neutrophils # 5.1 Neutrophils % 72.1 Nucleated Red Blood Cells # 0.0 Nucleated Red Blood Cells % 0.0 Platelet Count 226 Potassium Level 4.7 Red Blood Count 3.91 L Red Cell Distribution Width 14.8 H Sodium Level 143 White Blood Count 7.1 # Lab Scanned Report REFERENCE LAB Medications Medications Current Medications Levetiracetam/ Sodium Chloride (Keppra Iv/NS) 115 ml @ 460 mls/hr BID IVPB Last administered on 07/24/16 08:39; Admin Dose 460 MLS/HR; Start 07/19/16 at 13:30 Acetaminophen (Tylenol Tab) 650 mg Q4 PRN GTB PAIN AND OR ELEVATED TEMP; Start 07/19/16 at 14:00 Albuterol (Proventil 0.083% (Neb)) 2.5 mg Q3H PRN NEB WHEEZING AND SOB; Start 07/19/16 at 14:00 Ascorbic Acid (Vitamin C) 500 mg DAILY GTB Last administered on 07/24/16 08:38 ; Admin Dose 500 MG; Start 07/20/16 at 09:00 Bisacodyl (Dulcolax Supp) 10 mg Q24H PRN [place] CONSTIPATION; Start 07/19/16 at 14: 00 Chlorhexidine Gluconate (Peridex) 15 ml Q12 MM Last administered on 07/24/16 08:38; Admin Dose 15 ML; Start 07/19/16 at 21:00 Ferrous Sulfate (Feosol Liquid Cup) 300 mg BID GTB Last administered on 08:38; Admin Dose 300 MG; Start 07/19/16 at 21:00 Levetiracetam (Keppra Liquid) 1,500 mg BID GTB ; Start 07/19/16 at 21:00; Status Future Hold Magnesium Hydroxide (Milk Of Mag) 30 ml Q24H PRN GTB CONSTIPATION Last administered on 07/23/16 13:11; Admin Dose 30 ML; Start 07/19/16 at 14:00 Metoclopramide HCl (Reglan Liq) 5 mg Q8 GTB Last administered on 07/24/16 15: 09; Admin Dose 5 MG; Start 07/19/16 at 14:00 Pantoprazole 40 mg 40 mg BID@06,18 IV Last administered on 07/24/16 06:39; Admin Dose 40 MG; Start 07/20/16 at 10:10 Vancomycin HCl/ Sodium Chloride (Vancocin/NS) 150 ml @ 75 mls/hr Q12H IVPB Last administered on 07/24/16 12:56; Admin Dose 75 MLS/HR; Start 07/21/16 at 01 :00 Docusate Sodium 100 mg 100 mg QHS GTB Last administered on 07/23/16 22:10; Admin Dose 100 MG; Start 07/21/16 at 21:34 Cefepime HCl (Maxipime 1gm/50 ml (Pmx)) 50 ml @ 100 mls/hr Q12 IVPB Last administered on 07/24/16 08:38; Admin Dose 100 MLS/HR; Start 07/22/16 at 21:00 Morphine Sulfate (morphine) 2 mg Q3H PRN IV PAIN LEVEL 7-10 Last administered on 07/24/16 15:09; Admin Dose 2 MG; Start 07/22/16 at 18:00 IV Flush (NS 10 ml) 10 ml PRN PRN IV IV PROTOCOL; Start 07/24/16 at 17:30 KENAN JAUREGUI MD Jul 24, 2016 17:36
[2016-07-24] MEDS: DOCUSATE SODIUM 10 MG/ML (10ML CUP) GTB SCH (20:42)
[2016-07-25] VITALS (22 sets, daily range): BP systolic 107–125; BP diastolic 58–85; PULSE 57–73; RESP 14–24
[2016-07-25] MEDS: VANCOMYCIN 750 MG in SOD CHLORIDE 0.9% 150 ML IVPB SCH ×2 (00:41→13:39)
[2016-07-25] MEDS: METOCLOPRAMIDE (1 MG/ML) 10 ML CUP GTB SCH ×2 (06:00→13:41)
[2016-07-25] MEDS: PANTOPRAZOLE 40 MG INJ IV SCH ×2 (06:00→18:52)
[2016-07-25 08:14] LABS: BASOPHILS % 0.5 % (0.0-2.0); EOSINOPHILS # 0.2 10^3/ul (0.0-0.5); HEMATOCRIT 29.4 % (42.0-52.0); HEMOGLOBIN 9.8 g/dl (14.0-18.0); LYMPHOCYTES # 1.4 10^3/ul (0.8-2.9); LYMPHOCYTES % 16.9 % (15.0-51.0); MEAN CORPUSCULAR HEMOGLOBIN 27.7 pg (29.0-33.0); MEAN CORPUSCULAR HGB CONC 33.3 g/dl (32.0-37.0); MEAN CORPUSCULAR VOLUME 83.2 fl (82.0-101.0); MONOCYTE # 0.4 10^3/ul (0.3-0.9); MONOCYTES % 5.4 % (0.0-11.0); NEUTROPHILS % 74.2 % (39.0-77.0); PLATELET COUNT 228 10^3/UL (140-440); RED BLOOD COUNT 3.54 10^6/ul (4.70-6.10); RED CELL DISTRIBUTION WIDTH 14.2 % (11.5-14.5); UNCORRECTED WBC 8.1 10^3/ul (4.8-10.8); WHITE BLOOD COUNT 8.1 10^3/ul (4.8-10.8)
[2016-07-25] MEDS: FERROUS SULFATE 60 MG/ML 5ML CUP GTB SCH (08:16)
[2016-07-25] MEDS: ASCORBIC ACID 500 MG TAB GTB SCH (08:16)
[2016-07-25] MEDS: CHLORHEXIDINE GLUCONATE 15 ML UD CUP MM SCH (08:16)
[2016-07-25] MEDS: CEFEPIME 1GM/50 ML (PMX) 50 ML IVPB SCH (08:16)
[2016-07-25] MEDS: LEVETIRACETAM IV 1,500 MG in SOD CHLORIDE 0.9% 100 ML IVPB SCH (08:16)
[2016-07-25 08:22] LABS: POTASSIUM 3.9 mmol/L (3.5-5.1)
[2016-07-25 08:25] LABS: CREATININE 0.58 mg/dl (0.61-1.24)
[2016-07-25 08:26] LABS: CALCIUM 9.1 mg/dl (8.4-10.2); CONDITION 1
--- NOTE | 2016-07-25 08:59 | CONS ---
Date/Time of Note Date/Time of Note DATE: 07/25/16 TIME: 08:57 Assessment/Plan Assessment/Plan Additional Assessment/Plan 1. Acute hypernatremia, likely secondary to free water deficit. 2. Sepsis secondary to pneumonia and urinary tract infection. 3. Right lower lobe pneumonia. 4. Acute prerenal azotemia secondary to moderate to severe dehydration. 5. History of anxiety. 6. History of schizophrenia. 7. History of chronic respiratory failure, status post tracheostomy, on a ventilator. 8. History of anoxic encephalopathy. 9. History of dysphagia, status post gastrostomy tube placement. Plan: pt is off IVF , on Tube feeding, Na slowly improved to normal yesterday, again 145 today change Free water to every 6 hr 100 cc BP stable will follow up Consultation Date/Type/Reason Admit Date/Time Jul 19, 2016 at 13:30 Initial Consult Date 07/19/2016 Type of Consultation: NEPHROLOGY Reason for Consultation Hypernatremia Referring Provider: RICHARD GIRARD MD 24 HR Interval Summary Free Text/Dictation Na 145 today , pt stable afebrile Exam/Review of Systems Vital Signs Vitals Vital Signs Date Time Temp Pulse Resp B/P Pulse Ox O2 Delivery O2 Flow Rate FiO2 07/25/16 07:47 98.2 57 19 107/58 100 07/25/16 07:20 40 Intake and Output 07/24/16 07/24/16 07/25/16 15:00 23:00 07:00 Intake Total 1265 ml 641 ml Output Total 1000 ml 900 ml Balance 265 ml -259 ml Exam GENERAL: Patient is currently connected to the ventilator. The tracheostomy site is in place, site is clear. No erythema, no discharge. NECK: Supple. LUNGS: Bilateral decreased breath sounds at both lung bases. Right lower lobe rales present. No wheezing. HEART: S1, S2, tachycardia. ABDOMEN: Soft. G-tube in place. EXTREMITIES: No clubbing, cyanosis, or edema. NEUROLOGICAL: Uncooperative for exam. The patient has anoxic encephalopathy. Results Result Diagram: 07/25/16 0620 07/25/16 0620 Results 24 hrs Laboratory Tests Test 07/24/16 09:12 07/25/16 06:20 Lab Scanned Report REFERENCE LAB Anion Gap 15 Basophils # 0.0 Basophils % 0.5 Blood Morphology Comment Blood Urea Nitrogen 13 Calcium Level 9.1 Carbon Dioxide Level 27 Chloride Level 107 Creatinine 0.58 L Eosinophils # 0.2 Eosinophils % 3.0 Glucose Level 116 Hematocrit 29.4 L Hemoglobin 9.8 L Lymphocytes # 1.4 Lymphocytes % 16.9 Mean Corpuscular Hemoglobin 27.7 L Mean Corpuscular Hemoglobin Concent 33.3 Mean Corpuscular Volume 83.2 Mean Platelet Volume 10.0 Monocytes # 0.4 Monocytes % 5.4 Neutrophils # 6.0 Neutrophils % 74.2 Nucleated Red Blood Cells # 0.0 Nucleated Red Blood Cells % 0.0 Platelet Count 228 Potassium Level 3.9 Red Blood Count 3.54 L Red Cell Distribution Width 14.2 Sodium Level 145 H White Blood Count 8.1 Medications Medications Current Medications Levetiracetam/ Sodium Chloride (Keppra Iv/NS) 115 ml @ 460 mls/hr BID IVPB Last administered on 07/25/16 08:16; Admin Dose 460 MLS/HR; Start 07/19/16 at 13:30 Acetaminophen (Tylenol Tab) 650 mg Q4 PRN GTB PAIN AND OR ELEVATED TEMP; Start 07/19/16 at 14:00 Albuterol (Proventil 0.083% (Neb)) 2.5 mg Q3H PRN NEB WHEEZING AND SOB; Start 07/19/16 at 14:00 Ascorbic Acid (Vitamin C) 500 mg DAILY GTB Last administered on 07/25/16 08:16 ; Admin Dose 500 MG; Start 07/20/16 at 09:00 Bisacodyl (Dulcolax Supp) 10 mg Q24H PRN [place] CONSTIPATION; Start 07/19/16 at 14: 00 Chlorhexidine Gluconate (Peridex) 15 ml Q12 MM Last administered on 07/25/16 08:16; Admin Dose 15 ML; Start 07/19/16 at 21:00 Ferrous Sulfate (Feosol Liquid Cup) 300 mg BID GTB Last administered on 08:16; Admin Dose 300 MG; Start 07/19/16 at 21:00 Levetiracetam (Keppra Liquid) 1,500 mg BID GTB ; Start 07/19/16 at 21:00; Status Future Hold Magnesium Hydroxide (Milk Of Mag) 30 ml Q24H PRN GTB CONSTIPATION Last administered on 07/23/16 13:11; Admin Dose 30 ML; Start 07/19/16 at 14:00 Metoclopramide HCl (Reglan Liq) 5 mg Q8 GTB Last administered on 07/25/16 06: 00; Admin Dose 5 MG; Start 07/19/16 at 14:00 Pantoprazole 40 mg 40 mg BID@06,18 IV Last administered on 07/25/16 06:00; Admin Dose 40 MG; Start 07/20/16 at 10:10 Vancomycin HCl/ Sodium Chloride (Vancocin/NS) 150 ml @ 75 mls/hr Q12H IVPB Last administered on 07/25/16 00:41; Admin Dose 75 MLS/HR; Start 07/21/16 at 01 :00 Docusate Sodium 100 mg 100 mg QHS GTB Last administered on 07/23/16 22:10; Admin Dose 100 MG; Start 07/21/16 at 21:34 Cefepime HCl (Maxipime 1gm/50 ml (Pmx)) 50 ml @ 100 mls/hr Q12 IVPB Last administered on 07/25/16 08:16; Admin Dose 100 MLS/HR; Start 07/22/16 at 21:00 Morphine Sulfate (morphine) 2 mg Q3H PRN IV PAIN LEVEL 7-10 Last administered on 07/24/16 15:09; Admin Dose 2 MG; Start 07/22/16 at 18:00 IV Flush (NS 10 ml) 10 ml PRN PRN IV IV PROTOCOL; Start 07/24/16 at 17:30 UMM MANNING MD Jul 25, 2016 08:59
--- NOTE | 2016-07-25 10:37 | RADRPT ---
PROCEDURE: US guidance for PICC line CLINICAL INDICATION: PICC line placement TECHNIQUE: Multiple real-time images were acquired of the patient's arm utilizing a high resolutio n transducer. This was performed by the PICC line nurse for venous access. COMPARISON: None FINDINGS: Ultrasound guidance for PICC line placement. IMPRESSION: Ultrasound guidance for PICC line placement. RPTAT: AA .Vivek Hansen MD, MD Date Time Electronically viewed and signed by .Vivek Hansen MD, on 07/25/2016 10:37 .S/
--- NOTE | 2016-07-25 13:18 | CONS ---
Date/Time of Note Date/Time of Note DATE: 07/25/16 TIME: 13:17 Assessment/Plan Assessment/Plan Chief Complaint/Hosp Course SUBJECTIVE: No acute changes. The patient is nonverbal, noncommunicative, lying comfortably in bed. No fevers. MICROBIOLOGY: Blood culture on admission grew coagulase-negative staph species. Urine culture grew Proteus mirabilis, susceptible to cefotaxime, ampicillin, tobramycin, Bactrim, gentamicin. INDWELLINGS: Trach, PEG, Charles. ANTIMICROBIALS: 1. Vancomycin. 2. Cefepime. PHYSICAL EXAMINATION: GENERAL: Chronically ill-appearing, middle-aged Malay man who is lying comfortably in bed. HEENT: Head atraumatic, normocephalic. Sclerae anicteric. Buccal mucosa dry. NECK: Supple. Tracheostomy present. CHEST: Rise symmetrical. Breath sounds diminished at the bases. HEART: S1, S2. ABDOMEN: Soft, bowel tones present. EXTREMITIES: Contractured. ASSESSMENT: 1. Sepsis, resolving. 2. Healthcare-associated pneumonia. 3. Multi-drug resistant urinary tract infection. 4. Coagulase-negative Staphylococcus bacteremia cw contaminant. 5. Persistent vegetative state. PLAN: The patient remains stable. Continue abx for 4 more days, ?dc plan. DW staff Problems: Consultation Date/Type/Reason Admit Date/Time Jul 19, 2016 at 13:30 Type of Consultation: id Referring Provider: RICHARD GIRARD MD Exam/Review of Systems Vital Signs Vitals Vital Signs Date Time Temp Pulse Resp B/P Pulse Ox O2 Delivery O2 Flow Rate FiO2 07/25/16 12:20 57 07/25/16 11:44 98.5 19 124/85 99 07/25/16 11:10 40 Intake and Output 07/24/16 07/24/16 07/25/16 15:00 23:00 07:00 Intake Total 1265 ml 641 ml Output Total 1000 ml 900 ml Balance 265 ml -259 ml Results Result Diagram: 07/25/16 0620 07/25/16 0620 Results 24 hrs Laboratory Tests Test 07/25/16 06:20 Anion Gap 15 Basophils # 0.0 Basophils % 0.5 Blood Morphology Comment Blood Urea Nitrogen 13 Calcium Level 9.1 Carbon Dioxide Level 27 Chloride Level 107 Creatinine 0.58 L Eosinophils # 0.2 Eosinophils % 3.0 Glucose Level 116 Hematocrit 29.4 L Hemoglobin 9.8 L Lymphocytes # 1.4 Lymphocytes % 16.9 Mean Corpuscular Hemoglobin 27.7 L Mean Corpuscular Hemoglobin Concent 33.3 Mean Corpuscular Volume 83.2 Mean Platelet Volume 10.0 Monocytes # 0.4 Monocytes % 5.4 Neutrophils # 6.0 Neutrophils % 74.2 Nucleated Red Blood Cells # 0.0 Nucleated Red Blood Cells % 0.0 Platelet Count 228 Potassium Level 3.9 Red Blood Count 3.54 L Red Cell Distribution Width 14.2 Sodium Level 145 H White Blood Count 8.1 Medications Medications Current Medications Levetiracetam/ Sodium Chloride (Keppra Iv/NS) 115 ml @ 460 mls/hr BID IVPB Last administered on 07/25/16 08:16; Admin Dose 460 MLS/HR; Start 07/19/16 at 13:30 Acetaminophen (Tylenol Tab) 650 mg Q4 PRN GTB PAIN AND OR ELEVATED TEMP; Start 07/19/16 at 14:00 Albuterol (Proventil 0.083% (Neb)) 2.5 mg Q3H PRN NEB WHEEZING AND SOB; Start 07/19/16 at 14:00 Ascorbic Acid (Vitamin C) 500 mg DAILY GTB Last administered on 07/25/16 08:16 ; Admin Dose 500 MG; Start 07/20/16 at 09:00 Bisacodyl (Dulcolax Supp) 10 mg Q24H PRN [place] CONSTIPATION; Start 07/19/16 at 14: 00 Chlorhexidine Gluconate (Peridex) 15 ml Q12 MM Last administered on 07/25/16 08:16; Admin Dose 15 ML; Start 07/19/16 at 21:00 Ferrous Sulfate (Feosol Liquid Cup) 300 mg BID GTB Last administered on 08:16; Admin Dose 300 MG; Start 07/19/16 at 21:00 Levetiracetam (Keppra Liquid) 1,500 mg BID GTB ; Start 07/19/16 at 21:00; Status Future Hold Magnesium Hydroxide (Milk Of Mag) 30 ml Q24H PRN GTB CONSTIPATION Last administered on 07/23/16 13:11; Admin Dose 30 ML; Start 07/19/16 at 14:00 Metoclopramide HCl (Reglan Liq) 5 mg Q8 GTB Last administered on 07/25/16 06: 00; Admin Dose 5 MG; Start 07/19/16 at 14:00 Pantoprazole 40 mg 40 mg BID@06,18 IV Last administered on 07/25/16 06:00; Admin Dose 40 MG; Start 07/20/16 at 10:10 Vancomycin HCl/ Sodium Chloride (Vancocin/NS) 150 ml @ 75 mls/hr Q12H IVPB Last administered on 07/25/16 00:41; Admin Dose 75 MLS/HR; Start 07/21/16 at 01 :00 Docusate Sodium 100 mg 100 mg QHS GTB Last administered on 07/23/16 22:10; Admin Dose 100 MG; Start 07/21/16 at 21:34 Cefepime HCl (Maxipime 1gm/50 ml (Pmx)) 50 ml @ 100 mls/hr Q12 IVPB Last administered on 07/25/16 08:16; Admin Dose 100 MLS/HR; Start 07/22/16 at 21:00 Morphine Sulfate (morphine) 2 mg Q3H PRN IV PAIN LEVEL 7-10 Last administered on 07/24/16 15:09; Admin Dose 2 MG; Start 07/22/16 at 18:00 IV Flush (NS 10 ml) 10 ml PRN PRN IV IV PROTOCOL; Start 07/24/16 at 17:30 YURY YOON NP Jul 25, 2016 13:18
--- NOTE | 2016-07-25 14:00 | CONS ---
Date/Time of Note Date/Time of Note DATE: 07/25/16 TIME: 13:57 Assessment/Plan Assessment/Plan Additional Assessment/Plan Ventilator settings; assist control of 14, tidal volume 550, PEEP of 0, 40% FiO2. Assessment and recommendations; next 1. Patient admitted with sepsis due to UTI. 2. Chronic respiratory failure due to anoxic brain injury patient remains ventilator dependent. 3. Stable seizure disorder. Continue current treatment. Consultation Date/Type/Reason Admit Date/Time Jul 19, 2016 at 13:30 Type of Consultation: Permanent Referring Provider: RICHARD GIRARD MD 24 HR Interval Summary Free Text/Dictation Patient's condition remains stable. Remains awake but unresponsive due to underlying anoxic encephalopathy. Patient has remained hemodynamically stable. General examination; middle aged male, on ventilator via tracheostomy unresponsive. Exam/Review of Systems Vital Signs Vitals Vital Signs Date Time Temp Pulse Resp B/P Pulse Ox O2 Delivery O2 Flow Rate FiO2 07/25/16 13:15 82 24 97 40 07/25/16 11:44 98.5 124/85 Intake and Output 07/24/16 07/24/16 07/25/16 15:00 23:00 07:00 Intake Total 1265 ml 641 ml Output Total 1000 ml 900 ml Balance 265 ml -259 ml Exam HEENT examination; a colostomy in place with clean insertion site. Pupils are midsize and reactive to light bilaterally. No neck masses felt. No thyromegaly. Patient does have a flexion contraction of the neck. Chest examination; diminished but clear breath sounds bilaterally. S1-S2 audible, no murmurs. Regular rhythm. Abdomen examination; soft, no organomegaly. Nondistended. G-tube in place. Bowel sounds audible. Extremity examination; no peripheral edema. Patient does have severe flexion contractures involving all 4 extremities. MOTOR WINDER examination; patient is awake but does not follow any commands. Results Result Diagram: 07/25/16 0620 07/25/16 0620 Results 24 hrs Laboratory Tests Test 07/25/16 06:20 Anion Gap 15 Basophils # 0.0 Basophils % 0.5 Blood Morphology Comment Blood Urea Nitrogen 13 Calcium Level 9.1 Carbon Dioxide Level 27 Chloride Level 107 Creatinine 0.58 L Eosinophils # 0.2 Eosinophils % 3.0 Glucose Level 116 Hematocrit 29.4 L Hemoglobin 9.8 L Lymphocytes # 1.4 Lymphocytes % 16.9 Mean Corpuscular Hemoglobin 27.7 L Mean Corpuscular Hemoglobin Concent 33.3 Mean Corpuscular Volume 83.2 Mean Platelet Volume 10.0 Monocytes # 0.4 Monocytes % 5.4 Neutrophils # 6.0 Neutrophils % 74.2 Nucleated Red Blood Cells # 0.0 Nucleated Red Blood Cells % 0.0 Platelet Count 228 Potassium Level 3.9 Red Blood Count 3.54 L Red Cell Distribution Width 14.2 Sodium Level 145 H White Blood Count 8.1 Medications Medications Current Medications Levetiracetam/ Sodium Chloride (Keppra Iv/NS) 115 ml @ 460 mls/hr BID IVPB Last administered on 07/25/16 08:16; Admin Dose 460 MLS/HR; Start 07/19/16 at 13:30 Acetaminophen (Tylenol Tab) 650 mg Q4 PRN GTB PAIN AND OR ELEVATED TEMP; Start 07/19/16 at 14:00 Albuterol (Proventil 0.083% (Neb)) 2.5 mg Q3H PRN NEB WHEEZING AND SOB; Start 07/19/16 at 14:00 Ascorbic Acid (Vitamin C) 500 mg DAILY GTB Last administered on 07/25/16 08:16 ; Admin Dose 500 MG; Start 07/20/16 at 09:00 Bisacodyl (Dulcolax Supp) 10 mg Q24H PRN [place] CONSTIPATION; Start 07/19/16 at 14: 00 Chlorhexidine Gluconate (Peridex) 15 ml Q12 MM Last administered on 07/25/16 08:16; Admin Dose 15 ML; Start 07/19/16 at 21:00 Ferrous Sulfate (Feosol Liquid Cup) 300 mg BID GTB Last administered on 08:16; Admin Dose 300 MG; Start 07/19/16 at 21:00 Levetiracetam (Keppra Liquid) 1,500 mg BID GTB ; Start 07/19/16 at 21:00; Status Future Hold Magnesium Hydroxide (Milk Of Mag) 30 ml Q24H PRN GTB CONSTIPATION Last administered on 07/23/16 13:11; Admin Dose 30 ML; Start 07/19/16 at 14:00 Metoclopramide HCl (Reglan Liq) 5 mg Q8 GTB Last administered on 2/17/17at 13: 41; Admin Dose 5 MG; Start 07/19/16 at 14:00 Pantoprazole 40 mg 40 mg BID@06,18 IV Last administered on 07/25/16 06:00; Admin Dose 40 MG; Start 07/20/16 at 10:10 Vancomycin HCl/ Sodium Chloride (Vancocin/NS) 150 ml @ 75 mls/hr Q12H IVPB Last administered on 07/25/16 13:39; Admin Dose 75 MLS/HR; Start 07/21/16 at 01 :00 Docusate Sodium 100 mg 100 mg QHS GTB Last administered on 07/23/16 22:10; Admin Dose 100 MG; Start 07/21/16 at 21:34 Cefepime HCl (Maxipime 1gm/50 ml (Pmx)) 50 ml @ 100 mls/hr Q12 IVPB Last administered on 07/25/16 08:16; Admin Dose 100 MLS/HR; Start 07/22/16 at 21:00 Morphine Sulfate (morphine) 2 mg Q3H PRN IV PAIN LEVEL 7-10 Last administered on 07/24/16 15:09; Admin Dose 2 MG; Start 07/22/16 at 18:00 IV Flush (NS 10 ml) 10 ml PRN PRN IV IV PROTOCOL; Start 07/24/16 at 17:30 MI JEFFERS Jul 25, 2016 14:00
--- NOTE | 2016-07-25 16:07 | CONS ---
Date/Time of Note Date/Time of Note DATE: 07/25/16 TIME: 16:07 Assessment/Plan Assessment/Plan Additional Assessment/Plan Assessment/Plan Additional Assessment/Plan Additional Assessment/Plan 1. Aspiration pneumonia.better 2. Vent-dependent respiratory failure. 3. Vegetative state. 4. Questionable upper gastrointestinal bleeding. Stool guaiac is negative. 5. Anoxic encephalopathy. 6. Hypernatremia. 7. UTI 8.nausea/vomiting resolved Plan continue g tube feeding PPI and Reglan Consultation Date/Type/Reason Admit Date/Time Jul 19, 2016 at 13:30 Type of Consultation: Permanent Referring Provider: RICHARD GIRARD MD 24 HR Interval Summary Constitutional: improved Exam/Review of Systems Vital Signs Vitals Vital Signs Date Time Temp Pulse Resp B/P Pulse Ox O2 Delivery O2 Flow Rate FiO2 07/25/16 15:56 98.2 61 19 119/61 99 07/25/16 15:00 40 Intake and Output 07/24/16 07/24/16 07/25/16 15:00 23:00 07:00 Intake Total 1265 ml 641 ml Output Total 1000 ml 900 ml Balance 265 ml -259 ml Exam Constitutional: alert, oriented, well developed Psych: nl mood/affect, no complaints Head: atraumatic, normocephalic Eyes: EOMI, PERRL, nl conjunctiva, nl lids, nl sclera ENMT: nl external ears & nose, nl lips & teeth, nl nasal mucosa & septum Neck: non-tender, supple Respiratory: clear to auscultation, normal air movement Cardiovascular: nl pulses, regular rate and rhythm Gastrointestinal: nl liver, spleen, non-tender, soft Musculoskeletal: nl extremities to inspection, nl gait and stance Extremities: normal pulses Neurological: 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, nl mental status, nl speech, nl strength Skin: nl turgor, No rash or lesions Lymph: nl lymph nodes Results Result Diagram: 07/25/16 0620 07/25/16 0620 Results 24 hrs Laboratory Tests Test 07/25/16 06:20 Anion Gap 15 Basophils # 0.0 Basophils % 0.5 Blood Morphology Comment Blood Urea Nitrogen 13 Calcium Level 9.1 Carbon Dioxide Level 27 Chloride Level 107 Creatinine 0.58 L Eosinophils # 0.2 Eosinophils % 3.0 Glucose Level 116 Hematocrit 29.4 L Hemoglobin 9.8 L Lymphocytes # 1.4 Lymphocytes % 16.9 Mean Corpuscular Hemoglobin 27.7 L Mean Corpuscular Hemoglobin Concent 33.3 Mean Corpuscular Volume 83.2 Mean Platelet Volume 10.0 Monocytes # 0.4 Monocytes % 5.4 Neutrophils # 6.0 Neutrophils % 74.2 Nucleated Red Blood Cells # 0.0 Nucleated Red Blood Cells % 0.0 Platelet Count 228 Potassium Level 3.9 Red Blood Count 3.54 L Red Cell Distribution Width 14.2 Sodium Level 145 H White Blood Count 8.1 Medications Medications Current Medications Levetiracetam/ Sodium Chloride (Keppra Iv/NS) 115 ml @ 460 mls/hr BID IVPB Last administered on 07/25/16 08:16; Admin Dose 460 MLS/HR; Start 07/19/16 at 13:30 Acetaminophen (Tylenol Tab) 650 mg Q4 PRN GTB PAIN AND OR ELEVATED TEMP; Start 07/19/16 at 14:00 Albuterol (Proventil 0.083% (Neb)) 2.5 mg Q3H PRN NEB WHEEZING AND SOB; Start 07/19/16 at 14:00 Ascorbic Acid (Vitamin C) 500 mg DAILY GTB Last administered on 07/25/16 08:16 ; Admin Dose 500 MG; Start 07/20/16 at 09:00 Bisacodyl (Dulcolax Supp) 10 mg Q24H PRN [place] CONSTIPATION; Start 07/19/16 at 14: 00 Chlorhexidine Gluconate (Peridex) 15 ml Q12 MM Last administered on 07/25/16 08:16; Admin Dose 15 ML; Start 07/19/16 at 21:00 Ferrous Sulfate (Feosol Liquid Cup) 300 mg BID GTB Last administered on 08:16; Admin Dose 300 MG; Start 07/19/16 at 21:00 Levetiracetam (Keppra Liquid) 1,500 mg BID GTB ; Start 07/19/16 at 21:00; Status Future Hold Magnesium Hydroxide (Milk Of Mag) 30 ml Q24H PRN GTB CONSTIPATION Last administered on 07/23/16 13:11; Admin Dose 30 ML; Start 07/19/16 at 14:00 Metoclopramide HCl (Reglan Liq) 5 mg Q8 GTB Last administered on 07/25/16 13: 41; Admin Dose 5 MG; Start 07/19/16 at 14:00 Pantoprazole 40 mg 40 mg BID@06,18 IV Last administered on 07/25/16 06:00; Admin Dose 40 MG; Start 07/20/16 at 10:10 Vancomycin HCl/ Sodium Chloride (Vancocin/NS) 150 ml @ 75 mls/hr Q12H IVPB Last administered on 07/25/16 13:39; Admin Dose 75 MLS/HR; Start 07/21/16 at 01 :00 Docusate Sodium 100 mg 100 mg QHS GTB Last administered on 07/23/16 22:10; Admin Dose 100 MG; Start 07/21/16 at 21:34 Cefepime HCl (Maxipime 1gm/50 ml (Pmx)) 50 ml @ 100 mls/hr Q12 IVPB Last administered on 07/25/16 08:16; Admin Dose 100 MLS/HR; Start 07/22/16 at 21:00 Morphine Sulfate (morphine) 2 mg Q3H PRN IV PAIN LEVEL 7-10 Last administered on 07/24/16 15:09; Admin Dose 2 MG; Start 07/22/16 at 18:00 IV Flush (NS 10 ml) 10 ml PRN PRN IV IV PROTOCOL; Start 07/24/16 at 17:30 KENAN JAUREGUI MD Jul 25, 2016 16:07
--- NOTE | 2016-07-26 07:19 | DS ---
DATE OF ADMISSION: 07/19/2016 DATE OF DISCHARGE: 07/25/2016 FINAL DIAGNOSES: 1. Sepsis. 2. Health care acquired pneumonia. 3. Multidrug resistant urinary tract infection. 4. Coagulase negative Staphylococcus bacteremia versus contaminant. 5. Ventilator-dependent respiratory failure, with tracheostomy. 6. Dysphagia, with G-tube. 7. Anoxic encephalopathy, status post cardiac arrest after a suicide attempt in October of 2009. 8. Suspected deep tissue injury on the heel. 9. Possible gastrointestinal bleed. 10. Seizure disorder. 11. Schizophrenia. 12. Hyponatremia, resolved. BRIEF HISTORY: The patient is a 45-year-old unfortunate male with anoxic encephalopathy status post cardiac arrest after a suicide attempt in October of 2009. The patient is with ventilator dependent re spiratory failure, seizure disorder, schizophrenia, gastritis, and bradycardia. The patient was sen t from [facility] for evaluation of coffee-ground emesis and a f ever of 100.5. In the emergency room, the patient had blood cultures drawn and was started on broad spectrum antibiotics and admitted for further evaluation and management. HOSPITAL COURSE: The patient was evaluated by Dr. Matias in infectious disease consultation. The p atlashanda was been noted to have Proteus mirabilis urinary tract infection and coagulase-negative staph bacteremia. The patient was treated with antibiotics for the bacteremia and also for possible heal thcare-acquired pneumonia. The patient had a right lower lobe infiltrate on admission, per chest x- ray. The patient was evaluated and followed by Dr. Spain in pulmonology consultation and continued on bronchodilators and ventilator support. The patient was evaluated by Dr. Veras in gastroentero logy consultation for complaints of vomiting. The patient's stool for guaiac was found to be negati ve. The patient's hemoglobin and hematocrit was closely monitored and was stable, at the patient's baseline. The patient was also followed by Dr. Aceves in nephrology consultation due to acute hypona tremia, likely secondary to a free water deficit. The patient was given IV fluids and when cleared by gastroenterology, was started on G-tube feedings and the patient's condition improved. The patien t did not have any episodes of vomiting, tolerated the G-tube feedings well and patient is discharge d to a nursing home facility. CONDITION ON DISCHARGE: Hemodynamically stable. ACTIVITY: As patient tolerates. DIET: Continue G-tube feedings. DISCHARGE MEDICATIONS: 1. Tylenol. 2. Albuterol. 3. Ascorbic acid. 4. Dulcolax. 5. Cefepime IV for 4 more days, until 07/29/2016. 6. Peridex swab and suction. 7. Colace. 8. Ferrous sulfate. 9. Keppra 1500 mg per G-tube b.i.d. 10. Milk of Magnesia p.r.n. 11. Reglan 5 mg per G-tube q.8h. 12. Nexium. 13. Vancomycin. Pharmacy to dose for 4 more days, until 07/29/2016. 14. liquid. 15. Multivitamins and minerals. Interdisciplinary care was established for this patient. Plan of care was discussed with Dr. Singh colmenares. Dictated By: JH WISDOM ICE SKATING INSTRUCTOR for RICHARD GIRARD MD SR/NTS Conf#: [id number] DID#: [id number]
== END 2016-07-25 20:15 | DRG 870 ==
LOC: E/R 07:38 → TEL 13:30
PROVIDERS: ADMIT Internal Medicine; ATTEND Internal Medicine
PROC: 5A1955Z Respiratory Ventilation, Greater than 96 Consecutive Hours (ICD-10-PCS; 2016-07-19)
PROC: 02HV33Z Insertion of Infusion Device into Superior Vena Cava, Percutaneous Approach (ICD-10-PCS; principal; 2016-07-24)
DX: A41.9 Sepsis, unspecified organism (principal); J69.0 Pneumonitis due to inhalation of food and vomit; G93.1 Anoxic brain damage, not elsewhere classified; Z99.11 Dependence on respirator [ventilator] status; E87.0 Hyperosmolality and hypernatremia; J96.10 Chronic respiratory failure, unspecified whether with hypoxia or hypercapnia; R40.3 Persistent vegetative state; N39.0 Urinary tract infection, site not specified; R78.81 Bacteremia; K92.2 Gastrointestinal hemorrhage, unspecified; R65.20 Severe sepsis without septic shock; F41.9 Anxiety disorder, unspecified; F20.9 Schizophrenia, unspecified; G40.909 Epilepsy, unspecified, not intractable, without status epilepticus; B96.4 Proteus (mirabilis) (morganii) as the cause of diseases classified elsewhere; R13.10 Dysphagia, unspecified; E86.0 Dehydration; L89.600 Pressure ulcer of unspecified heel, unstageable; Z86.74 Personal history of sudden cardiac arrest; Z93.0 Tracheostomy status; Z93.1 Gastrostomy status; Y95 Nosocomial condition
CPT/HCPCS: 36415; 36569; 36600; 71010; 76775; 76937; 80048; 80053; 80202; 81001; 81003; 82270; 82803; 83605; 83690; 83735; 84155; 84300; 84484; 85014; 85018; 85025; 85610; 85730; 87040; 87081; 87086; 89190; 93005; 94002; 94003; 96374; 96375; 97161; C9113; J0692; J0696; J1953; J1956; J2270; J2765; J3370; J3480; J7030

== ENCOUNTER 2016-11-20 22:57 | Inpatient (IN) | payer MEDICAID ==
[~2016-11-20] VITALS: Ht 152.4 cm; Wt 76.6 kg
[~2016-11-20 22:57] MED LIST changes: +ACET-2047 GTB; -ACET500T98 GTB; -ACET650T85 GTB; +ALBU2.5V3 NEB; +ASCO500S2 GTB; +BISA10SU75 PR; +CHLO473M4 MM; +CRAN3875 GTB; -CRAN475C GTB; +DOCU-159 GTB; -DOCU50LI18 GTB; -FERR1POW4 GTB; +FERR220S3 GTB; -HYDR-1666 GTB; -KEP100S GTB; -LANS30CA47 PO; +LEVE500S9 GTB; -METO10TA92 PO; +MULT9LIQ4 GTB; -MVI GTB; -NA P118E RC; +NA P230E RC; -PROSTAT GTB; -ZINC220T GTB; -[UNRECOGNIZED DRUG - CODE] GTB
[2016-11-20] MEDS ORDERED: SOD CHLORIDE 0.9% IV ONE (23:30)
[2016-11-20] MEDS ORDERED: IPRATROPIUM (NEB) 0.5 MG/2.5 ML AMP HHN ONE (23:30)
[2016-11-20] MEDS ORDERED: ACETAMINOPHEN 650 MG SUPP PR ONE (23:30)
[2016-11-20] MEDS ORDERED: LEVALBUTEROL (NEB) 1.25 MG/0.5 ML AMP HHN ONE (23:30)
[2016-11-21 00:17] LABS: ADD SCAN DIFF NO
--- NOTE | 2016-11-21 00:21 | RADRPT ---
PROCEDURE: Chest. CLINICAL INDICATION: Chest pain. TECHNIQUE: Single frontal view of the chest was obtained. COMPARISON: 07/24/2016. FINDINGS: The patient is status post tracheostomy. The cardiac silhouette is within normal limits. The aorti c arch is unremarkable. There is no focal consolidation, vascular congestion or pleural effusion. There is mild bibasilar subsegmental atelectasis. There is no pneumothorax. There is gaseous disten arely of the bowel. IMPRESSION: Mild bibasilar atelectasis. Gaseous distension of the bowel. Further evaluation can be made by CT. .Ilan Parra MD, MD Date Time Electronically viewed and signed by .Ilan Parra MD, on 11/21/2016 00:21 .T/
[2016-11-21 00:31] LABS: ABNORMAL IP MESSAGE 1; HEMATOCRIT 52.4 % (42.0-52.0); HEMOGLOBIN 16.6 g/dl (14.0-18.0); MEAN CORPUSCULAR HEMOGLOBIN 27.5 pg (29.0-33.0); MEAN CORPUSCULAR HGB CONC 31.7 g/dl (32.0-37.0); MEAN CORPUSCULAR VOLUME 86.8 fl (82.0-101.0); MEAN PLATELET VOLUME 11.4 fl (7.4-10.4); PLATELET COUNT 755 10^3/UL (140-415); RED BLOOD COUNT 6.04 10^6/ul (4.70-6.10); RED CELL DISTRIBUTION WIDTH 15.2 % (11.5-14.5); WHITE BLOOD COUNT 30.4 10^3/ul (4.8-10.8)
[2016-11-21 00:46] LABS: INR 1.16; PARTIAL THROMBOPLASTIN TIME 35.8 Sec (25.0-35.0); PROTIME 14.8 Sec (12.2-14.2); PT RATIO 1.2
[2016-11-21 00:49] LABS: ALBUMIN/GLOBULIN RATIO 0.94; BILIRUBIN,INDIRECT 0.2 mg/dl (0-1.1); BILIRUBIN,TOTAL 0.2 mg/dl (0.2-1.3); CALCIUM 10.7 mg/dl (8.4-10.2); CREATININE 1.27 mg/dl (0.61-1.24); POTASSIUM 3.2 mmol/L (3.5-5.1)
[2016-11-21 01:09] LABS: LYMPHOCYTES # 1.5 10^3/ul (0.8-2.9); MONOCYTE # 0.6 10^3/ul (0.3-0.9); NEUTROPHIL # 28.3 10^3/ul (1.6-7.5)
[2016-11-21 01:26] LABS: TOTAL PROTEIN 10.3 g/dl (6.1-8.1)
[2016-11-21 01:30] LABS: TROPONIN-I 0.146 ng/ml (0.00-0.12)
[2016-11-21 01:53] LABS: URINE BLOOD (Dip) POC 2+ (NEGATIVE)
[2016-11-21] MEDS ORDERED: VANCOMYCIN 1 GM (PMX) 250 ML IVPB SCH (02:00)
[2016-11-21] MEDS ORDERED: PIPER-TAZO 2.25 GM (PMX) 50 ML IVPB ONE (02:00)
--- NOTE | 2016-11-21 02:05 | RADRPT ---
PROCEDURE: CT Abdomen and Pelvis without contrast. CLINICAL INDICATION: Abdominal pain. TECHNIQUE: A CT scan of the abdomen and pelvis was performed without intravenous contrast. Doherty l and sagittal reformatted images were generated. Images were reviewed on a high-resolution PACS wor kstation. CTDIvol: 18.23 mGy. DLP: 1153.22 mGy-cm. One or more of the following dose reduction techniques were used: - Automated exposure control. - Adjustment of the mA and/or kV according to patient size. - Use of iterative reconstruction technique. COMPARISON: None. FINDINGS: Consolidation in the posteromedial left lung base probably represents atelectasis. Evaluation of the abdominal and pelvic viscera is limited by the lack of oral and intravenous contra st. The liver is unremarkable. The gallbladder is normal in appearance. The common bile duct is not dila anjali. The spleen is not enlarged. No pancreatic lesion is identified and there is no pancreatic ducta l dilatation. There is a horseshoe kidney. There is no perinephric fat stranding. No hydronephrosis is seen. There are multiple nonobstructing stones in both kidneys measuring up to 10 mm on the right. There is a 1.5 cm nodule in the left adrenal gland, nonspecific. The right adrenal gland is unremarkable. Ther e is patchy opacification of the posteromedial left upper quadrant retroperitoneal fat, nonspecific. A gastrostomy tube terminates in the stomach. There is a moderate volume of retained stool in the r ectum. The more proximal colon is markedly distended with gas and fluid. Several mildly dilated sm all bowel loops are noted in the abdomen pelvis. There is no bowel wall thickening. The appendix is normal. The urinary bladder is unremarkable. The pelvic organs are within normal limits. No lymphadenopathy is identified. There is no ascites. No pneumoperitoneum is seen. There are mild t o moderate arterial calcifications. No suspicious osseous lesion is idenitified. IMPRESSION: 1. Moderate volume of retained stool in the rectum. The more proximal colon is markedly distended with gas and fluid. This is nonspecific but might represent a colonic obstruction secondary to impac anjali stool in the rectum versus a colonic pseudo-obstruction (Bellevue syndrome). 2. Several mildly dilated small bowel loops in the abdomen and pelvis, possibly secondary to the co lonic distension. If there is concern for a small bowel obstruction, further evaluation with a smal l bowel follow-through examination may be useful. 3. Horseshoe kidney containing multiple nonobstructing stones, which measure up to 10 mm on the rig ht. 4. Patchy opacification of the posteromedial left upper quadrant retroperitoneal fat, nonspecific. A 1.5 cm nodule is noted in the adjacent left adrenal gland, also nonspecific. This could be furthe r evaluated with contrast-enhanced MRI if clinically warranted. 5. Mild to moderate atherosclerotic arterial calcifications. 6. Consolidation in the posterior left lung base, probably atelectasis. RPTAT: HTAR .Lux Resendez MD, MD Date Time Electronically viewed and signed by .Lux Resendez MD, on 11/21/2016 02:05 .R/
[2016-11-21] MEDS ORDERED: ASPIRIN 300 MG SUPP PR ONE (02:30)
[2016-11-21] MEDS ORDERED: SOD CHLORIDE 0.9% 1,000 ML IV SCH (02:39)
[2016-11-21] MEDS ORDERED: LIDOCAINE 1% (MPF) 5 ML VIAL SC ONE (03:00)
[2016-11-21] MEDS ORDERED: ONDANSETRON 4 MG INJ IV PRN ×2 (03:00→13:00)
[2016-11-21] MEDS ORDERED: morphine 2 MG INJ IV PRN ×2 (03:00→13:00)
--- NOTE | 2016-11-21 05:39 | ERA ---
ER Documentation Chief Complaint Date/Time DATE: 11/20/16 Chief Complaint altered level to normal HPI The patient is a 45-year-old male, presenting to the ER because he is more altered than normal, tachycardic, low O2 saturation. 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 Medications Home Meds Reported Medications Ascorbic Acid* (Vitamin C* Liq) 500 Mg/5 Ml Syrup, 500 MG GTB DAILY, ML 07/19/16 Cran/Vitc/Mannose/Inulin/Brom (Uti-Stat Liquid) 3,875 Mg/30 Ml Liquid, 3875 MG GTB BID 07/19/16 Acetaminophen* (Acetaminophen*) 650 Mg Tablet, 650 MG GTB Q4 Y for PAIN AND OR ELEVATED TEMP, #30 TAB 07/19/16 Metoclopramide* (Reglan*) 10 Mg/10 Ml Soln, 5 MG GTB Q8, ML 07/19/16 Esomeprazole Mag Trihydrate (Nexium) 40 Mg Capsule.dr, 40 MG GTB DAILY, #30 CAP 07/19/16 Multivit &Minerals/Ferrous Fum (MULTIVITAMIN LIQUID) 9 Mg/15 Ml Liquid, 3 MG GTB DAILY 07/19/16 Magnesium Hydroxide* (Milk Of Magnesia*) 400 Mg/5 Ml Oral.susp, 30 ML GTB Q24H Y for CONSTIPATION, ML 07/19/16 Levetiracetam* (Keppra*) 500 Mg/5 Ml Solution, 1500 MG GTB BID, BOTTLE 07/19/16 Na Phos,M-B/Na Phos,Di-Ba (Fleet Enema Extra) 230 Ml Enema, 230 ML RC Q48 Y for CONSTIPATION, ENEMA 07/19/16 Ferrous Sulfate (Ferrous Sulfate) 220 Mg/5 Ml Elixir, 330 MG GTB BID, BOTTLE 07/19/16 Bisacodyl* (Bisacodyl*) 10 Mg Supp, 10 MG IL Q24H Y for CONSTIPATION, SUPP 07/19/16 Docusate Sodium* (Docusate Sodium*) 100 Mg Capsule, 100 MG GTB QHS, #30 CAP 07/19/16 Chlorhexidine Gluconate (Peridex) 473 Ml Mouthwash, 15 ML MM Q12, BOTTLE 07/19/16 Albuterol Sulfate* (Albuterol Sulfate* Neb) 0.083%-3 Ml Neb, 2.5 MG NEB Q3H Y for WHEEZING AND SOB, #30 VIAL 07/19/16 Allergies Allergies: Coded Allergies: No Known Drug Allergy (Unverified Allergy, Unknown, 11/21/16) PMhx/Soc History of Surgery: No Anesthesia Reaction: No Hx Neurological Disorder: Yes (VEGETATIVE STATE) Hx Respiratory Disorders: Yes (VENT DEPENDENT) Hx Cardiac Disorders: Yes (CARDIAC ARREST 2013) Hx Psychiatric Problems: Yes (SCHIZO) Hx Miscellaneous Medical Probl: Yes (refer to EMR) Hx Alcohol Use: No Hx Substance Use: No Hx Tobacco Use: No Smoking Status: Never smoker Physical Exam Vitals Vital Signs Date Time Temp Pulse Resp B/P Pulse Ox O2 Delivery O2 Flow Rate FiO2 11/21/16 04:31 100.7 131 20 100/78 100 Mechanical Ventilator 11/21/16 02:50 135 20 100 40 11/21/16 02:33 101.3 131 20 95/74 Mechanical Ventilator 11/21/16 01:04 148 26 88/43 95 Mechanical Ventilator 11/21/16 00:50 146 26 98 50 11/20/16 23:18 103.1 149 22 91/67 96 Mechanical Ventilator 11/20/16 23:06 103.6 146 17 91/67 84 11/20/16 23:00 148 31 98 100 Physical Exam Const: Acute mild respiratory distress Head: Atraumatic. Eyes: Normal Conjunctiva. ENT: Normal External Ears, Nose and Mouth. Neck: Full range of motion. No meningismus. Resp: Clear to auscultation anterior and lateral Cardio: Regular tachycardic Abd: Soft, distended, normal bowel sounds, G-tube Skin: No petechiae or rashes. Back: No midline or flank tenderness. Ext: Contracted Neur: Unable to perform due to his condition Psych: Unable to perform due to his condition Result Diagram: 11/20/16 0003 11/21/16 0003 Results 24 hrs Laboratory Tests Test 11/20/16 00:03 11/21/16 00:03 11/21/16 01:55 11/21/16 02:27 White Blood Count 30.410^3/ul Red Blood Count 6.0410^6/ul Hemoglobin 16.6g/dl Hematocrit 52.4% Mean Corpuscular Volume 86.8fl Mean Corpuscular Hemoglobin 27.5pg Mean Corpuscular Hemoglobin Concent 31.7g/dl Red Cell Distribution Width 15.2% Platelet Count 95288^3/UL Mean Platelet Volume 11.4fl Neutrophils % 93.0% Lymphocytes % 5.0% Monocytes % 2.0% Neutrophils # 28.310^3/ul Lymphocytes # 1.510^3/ul Monocytes # 0.610^3/ul Differential Comment MANUAL DIFF Prothrombin Time 14.8Sec Prothrombin Time Ratio 1.2 INR International Normalized Ratio 1.16 Activated Partial Thromboplast Time 35.8Sec Sodium Level 154mmol/L Potassium Level 3.2mmol/L Chloride Level 109mmol/L Carbon Dioxide Level 22mmol/L Anion Gap 26 Blood Urea Nitrogen 46mg/dl Creatinine 1.27mg/dl Glucose Level 229mg/dl Lactic Acid Level 4.8mmol/L 1.9mmol/L Calcium Level 10.7mg/dl Total Bilirubin 0.2mg/dl Direct Bilirubin 0.00mg/dl Indirect Bilirubin 0.2mg/dl Aspartate Amino Transf (AST/SGOT) 76IU/L Alanine Aminotransferase (ALT/SGPT) 42IU/L Alkaline Phosphatase 114IU/L Troponin I 0.146ng/ml Total Protein 10.3g/dl Albumin 5.0g/dl Globulin 5.30g/dl Albumin/Globulin Ratio 0.94 Lipase 188U/L Bedside Urine pH (LAB) 5.5 Bedside Urine Protein (LAB) 3+ Bedside Urine Glucose (UA) Negative Bedside Urine Ketones (LAB) Trace Bedside Urine Blood 2+ Bedside Urine Nitrite (LAB) Negative Bedside Urine Leukocyte Esterase (L Negative Current Medications Medications (Trade) Dose Ordered Sig/Kevin Route PRN Reason Start Time Stop Time Status Last Admin Dose Admin Acetaminophen 650 mg 650 mg ONCE ONCE IL 11/20/16 23:30 11/20/16 23:31 DC 11/21/16 00:13 Sodium Chloride (NS) 2,790 ml @ 2,790 mls/hr BOLUS X1 ONCE IV 11/20/16 23:30 11/21/16 00:29 DC 11/21/16 01:12 Levalbuterol (Xopenex Neb) 1.25 mg ONCE ONCE HHN 11/20/16 23:30 11/20/16 23:31 DC 11/20/16 23:35 Ipratropium [place] 0.5 mg 0.5 mg ONCE ONCE HHN 11/20/16 23:30 11/20/16 23:31 DC 11/20/16 23:35 Vancomycin HCl 250 ml @ 125 mls/hr ONCE IVPB 11/21/16 02:00 11/21/16 03:59 DC 11/21/16 02:32 Piperacillin Sod/ Tazobactam Sod (Zosyn 2.25gm/ 50ml (Pmx)) 50 ml @ 100 mls/hr ONCE ONCE IVPB 11/21/16 02:00 11/21/16 02:29 DC 11/21/16 02:11 Aspirin (Aspirin) 162 mg ONCE ONCE [place] 11/21/16 02:30 11/21/16 02:31 DC 11/21/16 03:23 Lidocaine 5 ml 5 ml ONCE ONCE SC 11/21/16 03:00 11/21/16 03:01 DC Sodium Chloride (NS) 1,000 ml @ 100 mls/hr Q10H IV 11/21/16 02:39 11/21/16 00:03 Ondansetron HCl (Zofran Inj) 4 mg Q6H PRN IV NAUSEA AND/OR VOMITING 11/21/16 03:00 Acetaminophen (Tylenol Liquid) 650 mg Q6H PRN PO PAIN LEVEL 1-3 OR FEVER 11/21/16 03:00 Morphine Sulfate (morphine) 2 mg Q4H PRN IV PAIN LEVEL 7-10 11/21/16 03:00 Famotidine (Pepcid Iv) 20 mg Q12 IV 11/21/16 09:00 Enoxaparin Sodium (Lovenox) 30 mg DAILY SC 11/21/16 09:00 [facility]/[place] [id number] Radiology Main Line: [phone] DIAGNOSTIC IMAGING REPORT Patient: FELIPA MARLOW : 1970 Age: 45 Sex: M MR #: [id number] DOS: 06/15/17 2311 Ordering MD: MYRIAM DEL RIO MD Location: E/R Room/Bed: PROCEDURE: Chest. CLINICAL INDICATION: Chest pain. TECHNIQUE: Single frontal view of the chest was obtained. COMPARISON: 07/24/2016. FINDINGS: The patient is status post tracheostomy. The cardiac silhouette is within normal limits. The aortic arch is unremarkable. There is no focal consolidation, vascular congestion or pleural effusion. There is mild bibasilar subsegmental atelectasis. There is no pneumothorax. There is gaseous distension of the bowel. IMPRESSION: Mild bibasilar atelectasis. Gaseous distension of the bowel. Further evaluation can be made by CT. .Ilan Parra MD, Date Time Electronically viewed and signed by .Ilan Parra MD, MD on 11/21/2016 00:21 .T/ CC: MYRIAM DEL RIO MD [place] [id number] Radiology Main Line: [phone] DIAGNOSTIC IMAGING REPORT Patient: FELIPA MARLOW : 1970 Age: 45 Sex: M MR #: [id number] DOS: 11/20/162316 Ordering MD: MYRIAM DEL RIO MD Location: E/R Room/Bed: PROCEDURE: CT Abdomen and Pelvis without contrast. CLINICAL INDICATION: Abdominal pain. TECHNIQUE: A CT scan of the abdomen and pelvis was performed without intravenous contrast. Coronal and sagittal reformatted images were generated. Images were reviewed on a high-resolution PACS workstation. CTDIvol: 18.23 mGy. DLP: 1153.22 mGy-cm. One or more of the following dose reduction techniques were used: - Automated exposure control. - Adjustment of the mA and/or kV according to patient size. - Use of iterative reconstruction technique. COMPARISON: None. FINDINGS: Consolidation in the posteromedial left lung base probably represents atelectasis. Evaluation of the abdominal and pelvic viscera is limited by the lack of oral and intravenous contrast. The liver is unremarkable. The gallbladder is normal in appearance. The common bile duct is not dilated. The spleen is not enlarged. No pancreatic lesion is identified and there is no pancreatic ductal dilatation. There is a horseshoe kidney. There is no perinephric fat stranding. No hydronephrosis is seen. There are multiple nonobstructing stones in both kidneys measuring up to 10 mm on the right. There is a 1.5 cm nodule in the left adrenal gland, nonspecific. The right adrenal gland is unremarkable. There is patchy opacification of the posteromedial left upper quadrant retroperitoneal fat, nonspecific. A gastrostomy tube terminates in the stomach. There is a moderate volume of retained stool in the rectum. The more proximal colon is markedly distended with gas and fluid. Several mildly dilated small bowel loops are noted in the abdomen pelvis. There is no bowel wall thickening. The appendix is normal. The urinary bladder is unremarkable. The pelvic organs are within normal limits. No lymphadenopathy is identified. There is no ascites. No pneumoperitoneum is seen. There are mild to moderate arterial calcifications. No suspicious osseous lesion is idenitified. IMPRESSION: 1. Moderate volume of retained stool in the rectum. The more proximal colon is markedly distended with gas and fluid. This is nonspecific but might represent a colonic obstruction secondary to impacted stool in the rectum versus a colonic pseudo-obstruction (Loren syndrome). 2. Several mildly dilated small bowel loops in the abdomen and pelvis, possibly secondary to the colonic distension. If there is concern for a small bowel obstruction, further evaluation with a small bowel follow-through examination may be useful. 3. Horseshoe kidney containing multiple nonobstructing stones, which measure up to 10 mm on the right. 4. Patchy opacification of the posteromedial left upper quadrant retroperitoneal fat, nonspecific. A 1.5 cm nodule is noted in the adjacent left adrenal gland, also nonspecific. This could be further evaluated with contrast- enhanced MRI if clinically warranted. 5. Mild to moderate atherosclerotic arterial calcifications. 6. Consolidation in the posterior left lung base, probably atelectasis. RPTAT: HTAR .Lux Resendez MD, MD Date Time Electronically viewed and signed by .Lux Resendez MD, MD on 11/21/2016 02:05 .R/ CC: MYRIAM DEL RIO MD EKG: Read by emergency physician Rate/Rhythm: Sinus tachycardia 148 beats/min QRS, ST, T-waves: No ST elevation, no T inversion, premature supraventricular complex, and [address] and T abnormality Impression: Abnormal EKG MEDICAL MAKING DECISION: The patient is a 45-year-old male, presenting with acute septic shock, acute obstipation versus ileus versus partial small bowel obstruction, acute kidney injury, acute jugular elevation of unclear significance. He was treated with normal saline 30 mL/kg IV, vancomycin IV, Zosyn IV. He was treated with Tylenol suppository for fever, Xopenex and Atrovent nebulizer with deep suction by respiratory therapist, G-tube was connected to low intermittent suction, Charles catheter. He was treated with aspirin 162 mg sup for acute to elevation Consultation: I discussed the present with the on-call general surgeon Dr. Potter at 2:25 AM, who was made aware of the lab, the treatment, the present condition. He accepted the consult The differential diagnoses considered include but are not limited to cholelithiasis, cholecystitis, cystitis, pancreatitis, hepatitis, gastritis, peptic ulcer disease, gastric ulcer, appendicitis, diverticulitis, cholangitis, choledocholithiasis, partial small bowel obstruction, non-STEMI, small bowel obstruction, acute cardiac ischemia Admit MDM: Patient's infectious symptoms have not stabilized and the patient is at risk of rapid decompensation. The patient will be admitted for careful hydration, antibiotic therapy, and infectious source control. Severe Sepsis criteria: Infectious source: Unknown End organ damage indicated by: Lactate > 2.0 mmol/L Hypotension (SBP < 90 or >40 mmHG drop or MAP < 65) Acute Resp Failure (sat < 92% w/o oxygen) Sepsis Management: Time of recognition of severe sepsis/septic shock: 12:30 am Within 3 hours of recognition: Blood cultures x 2 before broad-spectrum antibiotics: Yes 30 ml/kg NS bolus completed Initial lactate 4.8 Repeat lactate pending Critical Care: Critical care time 35 minutes Emergent fluid management while maintaining close respiratory support. Provision of immediate and broad-spectrum antibiotic therapy. Simultaneous assessment for possible sources in order to direct targeted therapy. Consideration for invasive and chemical support to prevent cardiopulmonary collapse. Septic Shock Assessment: Any lactic acid > 4.0 yes Persistent hypotension (SBP < 90 or 40 mmHg drop, MAP < 65) despite 30 mL/kg IV fluid bolusno Volume Re-assessment for Septic Shock (post 30 ml/kg bolus): Temp100.7, BP100/78, HR131, RR,20 Pox95% Heart tachy & rhythm Lungs no crackles Skin Warm & dry & pink Cap Refill less than 2 seconds Peripheral pulses radially present Persistent Hypotension Treatment: Comfort care no Central line PICC line ordered Vasopressor started Not indicated I considered further perfusion assessment with CVP measurement, SCVO2, bedside ultrasound volume assessment, passive leg raise, trial of further fluid bolus. And proceeded withIVF Departure Diagnosis: Primary Impression: Septic shock Additional Impressions: Obstipation Acute kidney injury Elevated troponin Condition: Critical Comments I discussed the findings with the patient. I discussed the patient with his physician Dr. Solorio who was made aware of the lab, the treatment, the patient condition. The patient is admitted to ICU. He is aware that the surgeon recommended GI evaluation and he would consult GI himself MYRIAM DEL RIO MD Nov 21, 2016 05:39
[2016-11-21] MEDS: ACETAMINOPHEN 650MG/20.3ML CUP PO PRN ×2 (06:25→16:32)
[2016-11-21 07:51] LABS: AADO2 Arterial 536.9 mmHg (7.0-24.0); Allen Test ACCEPTAB; Arterial Base Excess -0.4 mmol/L (-3.0-3); Arterial COHb 0.2 % (0.0-3.0); Arterial Fraction of Oxyhgb 98.7 % (93.0-99.0); Arterial HCO3 20.3 mmol/L (22.0-26.0); Arterial MetHb 0.3 % (0.0-1.5); Arterial Total Hemglobin 16.4 g/dl (12.0-18.0); Blood Gas Mean Airway Pressure 14; MODE VENT - AC
[2016-11-21] MEDS ORDERED: ENOXAPARIN 30 MG/0.3 ML SYG SC SCH (09:00)
--- NOTE | 2016-11-21 10:28 | RADRPT ---
PROCEDURE: Chest Radiograph. CLINICAL INDICATION: Line placement TECHNIQUE: Single frontal chest radiograph. COMPARISON: Chest radiograph 11/20/2016 FINDINGS: A tracheostomy tube remains in place. Heart size is within normal limits. There has been interval placement of a right internal jugular venous catheter with distal tip in the region of the cavoatria l junction. There is no pneumothorax. Lung volumes are decreased in there is basilar atelectasis. No infiltrate or effusion is seen. The bones are intact. IMPRESSION: 1. Interval placement of right internal jugular venous catheter. No pneumothorax. 2. Otherwise stable radiographic appearance of the chest compared to 11/20/2016. RPTAT: AA .Agus Samano MD, MD Date Time Electronically viewed and signed by .Agus Samano MD, on 11/21/2016 10:27 .B/
[2016-11-21] MEDS ORDERED: ACETAMINOPHEN 650MG/20.3ML CUP NGT ONE (10:30)
[2016-11-21] MEDS ORDERED: SOD CHLORIDE 0.9% 1,000 ML IV ONE (10:30)
[2016-11-21] MEDS: FAMOTIDINE 20 MG INJ IV SCH ×2 (11:35→21:42)
[2016-11-21] MEDS ORDERED: D5W-0.45 NACL + KCL 20 MEQ 1,000 ML IV SCH (12:31)
[2016-11-21] MEDS ORDERED: NACL 0.9% 3 ML SYG IV SCH (13:00)
[2016-11-21] MEDS ORDERED: MINERAL OIL 133 ML ENEMA PR ONE ×2 (13:00→18:00)
[2016-11-21] MEDS ORDERED: IPRATROPIUM (NEB) 0.5 MG/2.5 ML AMP NEB PRN (13:00)
[2016-11-21] MEDS ORDERED: ALBUTEROL 0.083% (NEB) 2.5 MG/3 ML AMP NEB PRN (13:00)
[2016-11-21] MEDS ORDERED: VANCOMYCIN IV PER PHARMACY XX SCH (13:30)
[2016-11-21] MEDS ORDERED: PIPER-TAZO 2.25 GM (PMX) 50 ML IVPB SCH ×2 (13:35→14:00)
--- NOTE | 2016-11-21 13:43 | HP ---
DATE OF ADMISSION: 11/20/2016 HISTORY OF PRESENT ILLNESS: The patient is a 45-year-old male with anoxic encephalopathy status pos t cardiac arrest after suicide attempt in 2009, ventilator-dependent respiratory failure, dysphagia with G-tube, seizure disorder and history of schizophrenia. The patient was sent from the skilled [facility] facility due to altered level of consciousness more than patient's regular baseline, tachycar erick and low oxygen saturation. The patient's temperature was 103.3 on admission. The patient was a lso tachycardic. White blood cells were elevated to 30,400. Lactic acid 4.8. The patient underwen t a chest x-ray which revealed mild bibasilar atelectasis, gaseous distention of the bowel. The pat ient underwent CT of the abdomen and pelvis which revealed a moderate volume of retained stool in th e rectum, which might represent colonic obstruction secondary to impacted stool in the rectum versus colonic pseudoobstruction. The patient also noted to have several mildly dilated small bowel loops in the abdomen and pelvis, possibly secondary to colonic distention. Patchy opacification of the p osteromedial left upper quadrant retroperitoneal fat, nonspecific and 1.5 cm nodule is adjacent to t he left adrenal gland. Mild to moderate atherosclerotic arterial calcifications. Consolidation of the posterior left lung base, probably atelectasis. After cultures were collected, the patient was started on broad-spectrum antibiotics. The patient also had a central line inserted and given IV fl uid resuscitation. The patient also had noted elevated troponin of 0.146. No nausea or vomiting we re reported. The patient will be admitted for further evaluation and management to intensive care u [facility]. PAST MEDICAL HISTORY: Per HPI. PAST SURGICAL HISTORY: Status post tracheostomy, status post G-tube placement. FAMILY HISTORY: Noncontributory. SOCIAL HISTORY: The patient is a resident of a longterm facility. No current tobacco use, alcohol use, illicit drug use reported. ALLERGIES: NO KNOWN ALLERGIES. MEDICATIONS ON ADMISSION: 1. Vitamin C. 2. Stat liquid. 3. Tylenol. 4. Reglan. 5. Nexium. 6. Multivitamins. 7. Milk of magnesium p.r.n. 8. Keppra. 9. Fleet enema. 10. Ferrous sulfate. 11. Bisacodyl. 12. Colace. 13. Peridex. 14. Albuterol. REVIEW OF SYSTEMS: A 12-point review of systems is negative unless what mentioned in the HPI. PHYSICAL ASSESSMENT: GENERAL: Well-developed, obese male, currently opens eyes. Does not follow any commands. VITAL SIGNS: Temperature 103.6, pulse is 130, blood pressure 106/75, respiratory rate 20, oxygen sa turation 98% on 40% FIO2. HEENT: Head is atraumatic, normocephalic. Pupils equal, round, reactive to light and accommodation . Oral mucosa is dry, but pink. NECK: Supple. Tracheostomy at the base of the neck with no bleeding. Small amount of secretions. CHEST: Diminished at the bases with rhonchi bilaterally. CARDIOVASCULAR: The patient is tachycardic. Normal S1, S2. No murmurs, gallops, clicks, rubs note d. ABDOMEN: Distended, soft. Bowel sounds are hypoactive. G-tube with intact stoma. GENITOURINARY: The patient has a Charles catheter with yellow urine. EXTREMITIES: Contracted all 4 extremities. Pulses equal bilaterally 2+. SKIN: There is no rash, petechiae noted. The patient has small redness over the sacrum. NEUROLOGIC: The patient opens eyes, does not follow any commands. LABORATORY DATA: On admission, CBC: White blood cells 30.4, hemoglobin 16.6, hematocrit 52.4, plat elets 755. Chemistry: Sodium was 154, potassium 3.2, chloride 109, carbon dioxide 22, anion gap 26 , BUN is 46, creatinine 1.27, glucose 229, lactic acid 4.8, calcium 10.7. Troponin 0.146. AST 76, ALT 42, alkaline phosphatase 114, lipase is 188, albumin is 5. PT is 14.8, INR is 1.16, APTT 35.8. Urinalysis is negative for nitrite, negative for leukocyte esterase. ASSESSMENT AND PLAN: 1. Sepsis of unknown etiology, with shock. Continue IV fluids. Admit to ICU. Follow up on chest x-ray. Urine and blood cultures. Continue broad-spectrum antibiotics. 2. Possible small-bowel obstruction. Dr. Murcia is following in general surgery consultation. We will also obtain gastroenterology consultation, Dr. Walton. 3. Acute kidney injury with electrolyte imbalances. Continue IV fluids. Monitor electrolytes. Dr Elkin Aceves will be following in nephrology consultation. 4. Elevated troponin. Continue to monitor cardiac enzymes q. [address] Flor is asked to see patient in cardiology consultation. The patient will be also followed by Dr. Torres for ventil atory management. 5. Ventilator-dependent respiratory failure. 6. Dysphagia with G-tube. 7. Seizure disorder. Continue Keppra. 8. Anoxic encephalopathy, status post cardiac arrest. 9. Schizophrenia by history. Continue Lovenox for deep venous thrombosis prophylaxis and Pepcid for peptic ulcer disease prophyla xis. Further recommendations based on clinical course. Plan of care discussed with Dr. Girard. Dictated By: [employer] for RICHARD GIRARD MD SR/NTS Conf#: [id number] DID#: [id number]
[2016-11-21] MEDS ORDERED: PIPER-TAZO 3.375 GM IV (PMX) 100 ML IVPB SCH (13:50)
--- NOTE | 2016-11-21 13:58 | CONS ---
Date/Time of Note Date/Time of Note DATE: 11/21/16 TIME: 13:53 Assessment/Plan Assessment/Plan Additional Assessment/Plan Ventilator setting; AC of 20, tidal volume 550, PEEP of 5, 40% FiO2. Assessment recommendations; 1. Patient admitted with acute abdomen possibly due to fecal impaction. 2. Chronic respiratory failure, patient remains ventilator dependent. 3. Mild left lower lobe atelectasis. 4. Stable seizure disorder. 5. History of severe anoxic brain injury. 6. Patient currently being hyperventilated. Continue current supportive care and antibiotics. Surgical consult is pending. Meanwhile I would recommend changing ventilator settings to assist control of 16, tidal volume of 500. Prognosis is guarded. Consultation Date/Type/Reason Admit Date/Time Date of Consultation: Nov 21, 2016 Type of Consultation: Pulmonary/critical care Reason for Consultation Pulmonary consultation requested for evaluation of chronic respiratory failure, patient admitted for acute abdomen. History of presenting illness; patient is a 45-year-old male who is a resident of custodial on chronic ventilator unit due to history of severe anoxic brain injury patient was transferred to ER because of abdominal distention upon further evaluation CT of the abdomen was done which is showing colonic obstruction likely due to fecal impaction however an acute obstruction cannot be ruled out. Patient also has significant leukocytosis. Patient has advanced anoxic brain injury and history was obtained from medical records. Past medical history; 1. Patient with chronic respiratory failure. Ventilator dependent. 2. History of schizophrenia. 3. History of suicide attempt in 2009 which led to brain injury. 4. Be status post tracheostomy and G-tube placement. 5. Stable seizure disorder. Medications; reviewed. Allergies; none. Social history; not available. Family history; not available. Review of systems; unable to be obtained. General exam; middle-aged male, on ventilator via tracheostomy unresponsive. Social History Smoking Status: Never smoker Exam/Review of Systems Vital Signs Vitals Vital Signs Date Time Temp Pulse Resp B/P Pulse Ox O2 Delivery O2 Flow Rate FiO2 11/21/16 13:11 135 20 100 40 11/21/16 12:31 100.6 113/85 Mechanical Ventilator Intake and Output 11/20/16 11/20/16 11/21/16 15:00 23:00 07:00 Intake Total 300 ml Balance 300 ml Exam HEENT examination; supple neck, no JVD. No lymphadenopathy. Midline trachea. No thyromegaly. Tracheostomy in place with clean insertion site. Patient has a multiple carious teeth. Chest examination : diminished but clear breath sounds. S1-S2 audible, no murmurs. Regular rhythm. Abdomen exam is; soft, protuberant and distended. Bowel sounds are absent. G- tube in place. Extremity examination; no peripheral edema. Pulses 1+ bilaterally. [employer]ST [employer] examination; patient remains unresponsive. Results Result Diagram: 11/20/16 0003 11/21/16 0003 Results 24 hrs Laboratory Tests Test 11/20/16 23:11 11/21/16 00:03 11/21/16 01:55 11/21/16 02:27 Blood Gas Specimen Source Blood arterial Arterial Blood Date Drawn 11/21/2016 12:05:33 AM Arterial Blood pH (Temp corrected) 7.604 *H Arterial Blood pCO2 (Temp correct) 20.2 L Arterial Blood pO2 (Temp corrected) 167.4 H Arterial Blood HCO3 20.3 L Arterial Blood Base Excess -0.4 Arterial Blood Oxygen Saturation 99.2 H Zechariah Test ACCEPTAB Arterial Blood Gas Puncture Site Left Radial Arterial Blood Carboxyhemoglobin 0.2 Arterial Blood Methemoglobin 0.3 Blood Gas A-a O2 Differential 536.9 H Oxyhemoglobin Percent 98.7 Total Hemoglobin 16.4 Blood Gas Temperature 32.0 Blood Gas Respiration Rate 20.0 Blood Gas Actual Respiration Rate 26 Blood Gas Modality VENT - AC FiO2 100.0 Blood Gas Tidal Volume 550.0 Blood Gas Mean Airway Pressure 14 Blood Gas Low PEEP Setting 5.0 Blood Gas Inspiratory Pressure 24.0 Blood Gas Critical Value Read Back Kuldeep LABOY Blood Gas Notified Whom BL Blood Gas Notified Time 11/21/2016 12:18:03 AM Prothrombin Time 14.8 H Prothrombin Time Ratio 1.2 INR International Normalized Ratio 1.16 Activated Partial Thromboplast Time 35.8 H Sodium Level 154 H Potassium Level 3.2 L Chloride Level 109 Carbon Dioxide Level 22 Anion Gap 26 H Blood Urea Nitrogen 46 H Creatinine 1.27 H Glucose Level 229 H Lactic Acid Level 4.8 *H 1.9 Calcium Level 10.7 H Total Bilirubin 0.2 Direct Bilirubin 0.00 Indirect Bilirubin 0.2 Aspartate Amino Transf (AST/SGOT) 76 H Alanine Aminotransferase (ALT/SGPT) 42 Alkaline Phosphatase 114 Troponin I 0.146 *H Total Protein 10.3 H Albumin 5.0 H Globulin 5.30 H Albumin/Globulin Ratio 0.94 Lipase 188 Bedside Urine pH (LAB) 5.5 Bedside Urine Protein (LAB) 3+ H Bedside Urine Glucose (UA) Negative Bedside Urine Ketones (LAB) Trace H Bedside Urine Blood 2+ H Bedside Urine Nitrite (LAB) Negative Bedside Urine Leukocyte Esterase (L Negative Test 11/21/16 04:30 Lactic Acid Level 2.1 Medications Medications Current Medications Acetaminophen (Tylenol Liquid) 650 mg Q6H PRN PO PAIN LEVEL 1-3 OR FEVER Last administered on 11/21/16 06:25; Admin Dose 650 MG; Start 11/21/16 at 03:00 Famotidine 20 mg 20 mg Q12 IV Last administered on 11/21/16 11:35; Admin Dose 20 MG; Start 11/21/16 at 09:00 Potassium Chloride/Dextrose/ Sod Cl (D5-1/2ns + KCl 20 Meq) 1,000 ml @ 80 mls/ hr [id number] IV ; Start 11/21/16 at 12:31 Ondansetron HCl (Zofran Inj) 4 mg Q6H PRN IV NAUSEA AND/OR VOMITING; Start at 13:00 Morphine Sulfate (morphine) 2 mg Q4H PRN IV PAIN LEVEL 7-10; Start 11/21/16 at 13:00 Pantoprazole (Protonix Iv) 40 mg DAILY@06 IV ; Start 11/22/16 at 06:00 Enoxaparin Sodium 30 mg 30 mg DAILY SC ; Start 11/22/16 at 09:00 Piperacillin Sod/ Tazobactam Sod (Zosyn 3.375gm/ 100 ml (Pmx)) 100 ml @ 100 mls /hr Q6 IVPB ; Start 11/21/16 at 13:50 MI JEFFERS Nov 21, 2016 13:58
[2016-11-21] MEDS ORDERED: DEXAMETHASONE 10 MG/ML 1 ML INJ IV ONE (15:00)
[2016-11-21 15:11] LABS: ADD SCAN DIFF NO
[2016-11-21 15:13] LABS: BASOPHILS % 0.2 % (0.0-2.0); HEMOGLOBIN 10.7 g/dl (14.0-18.0); LYMPHOCYTES # 2.4 10^3/ul (0.8-2.9); MEAN CORPUSCULAR HEMOGLOBIN 27.3 pg (29.0-33.0); MEAN CORPUSCULAR HGB CONC 31.5 g/dl (32.0-37.0); MEAN CORPUSCULAR VOLUME 86.7 fl (82.0-101.0); MEAN PLATELET VOLUME 10.9 fl (7.4-10.4); MONOCYTE # 0.9 10^3/ul (0.3-0.9); MONOCYTES % 6.4 % (0.0-11.0); NEUTROPHIL # 10.9 10^3/ul (1.6-7.5); PLATELET COUNT 259 10^3/UL (140-415); RED BLOOD COUNT 3.92 10^6/ul (4.70-6.10); RED CELL DISTRIBUTION WIDTH 14.9 % (11.5-14.5); WHITE BLOOD COUNT 14.3 10^3/ul (4.8-10.8)
[2016-11-21] MEDS: VANCOMYCIN 1 GM in NS 250 ML IVPB SCH (15:15)
--- NOTE | 2016-11-21 15:15 | CONS ---
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 Fortunately, there is no indication for acute surgical intervention, but the patient has an acute need for gastroenterology consultation and decompression of the colon. I have recommended manual disimpaction to be done as soon as possible and evaluation by gastroenterology for possible colonoscopic decompression of his colon. I also recommended strongly for the medical team to use this opportunity to clarify goals of life and to understand the code status since the patient's vegetative state is such that he will certainly have more problems in the near future if not during this admission alone, and it will be important for us to have realistic goals of treatment for him and his family. With above assessment, I recommended the followin. Manual disimpaction in the ED 2. GI consultation with consideration for endoscopic decompression of colon 3. Clarification of goals of treatment and code status Thank you again for allowing us to participate in the care of this very pleasant gentleman and I am certain his wonderful family. If there are any questions, please feel free to contact me at [phone]. 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 COMORBIDITIES: 1. Status post anoxic encephalopathy after cardiac arrest from suicide attempt in 2009. 2. Ventilator-dependent respiratory failure. 3. Dysphagia with G-tube. 4. Seizure disorder. 5. History of schizophrenia. 6. Status post tracheostomy. 7. Status post percutaneous endoscopic gastrostomy tube placement. 8. Institutionally-bound and vegetative state. 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 The patient had presented from prison facility due to altered level of consciousness more than his regular baseline as well as tachycardia and low oxygen saturation. His temperature was recorded at 103.3 on admission, and he had an elevated white blood cell count of approximately 30, 000. His lactic acid was 4.8. The patient's CT scan of the abdomen and pelvis had shown moderate amount of retained stool in the rectum, which could represent colonic obstruction secondary to impacted stool and also evidence of colonic pseudoobstruction. The patient himself has been kept in the emergency department since the ICU has been full and we are awaiting bed transfer. During my visit, the patient was unresponsive and there were no family members present in the room. ALLERGIES: NO KNOWN DRUG ALLERGIES. MEDICATIONS: On admission included: 1. Vitamin C. 2. Tylenol. 3. Reglan. 4. Nexium. 5. Multivitamins. 6. Milk of magnesia. 7. Keppra. 8. Fleet enema. 9. Ferrous sulfate. 10. Bisacodyl. 11. Colace. 12. Peridex. 13. Albuterol. SOCIAL HISTORY: The patient lives in an institutionalized setting and is completely dependent on all activities of daily living, which at this point is unclear to me how functional he really has been. No reported smoking, drinking , or intravenous drug use. FAMILY HISTORY: There is no mention of major medical, surgical or oncologic problems in the family. REVIEW OF SYSTEMS: Unable to obtain. PHYSICAL EXAMINATION: GENERAL: The patient appears to be a very pleasant appearing gentleman of non- descent, appearing stated age or perhaps slightly older, lying in bed on tracheostomy tube ventilation and contracted extremities and closed eyes. His lips have a couple of areas of degeneration of the lips. He does not respond to any voice commands. His pupils are equally round and reactive to light bilaterally, but he does not respond to voice or to physical stimulation. VITAL SIGNS: His BMI is 38.8. His temperature is 100.6, blood pressure 113/85 , pulse 135, respiratory rate 20, pulse oximetry 100% on 40% FIO2 mechanical ventilation. HEENT: Normocephalic and atraumatic. Extraocular muscles and hearing are grossly intact bilaterally and symmetrically. Sclerae are nonicteric. Oral cavity is clear; oral mucosa appeared to be pink and moist. Dentition: poor. NECK: Supple. There is no lymphadenopathy or JVD. There is no submental, submandibular or supraclavicular lymphadenopathy. CHEST: Rises symmetrically with each breath; patient is breathing comfortably. There are no audible wheezes, rales or rhonchi on the gross exam. HEART: Pulse is regular and palpable on the left wrist. Capillary refill was normal. Carotid pulses are palpable bilaterally and symmetrically in the neck. EXTREMITIES: Lower extremities contain no pitting edema around the ankles bilaterally and symmetrically. ABDOMEN: Soft, mildly distended but nontender. There is no organomegaly, caput medusae, engorged subcutaneous veins, or ascites. There are no peritoneal signs or guarding. SKIN: Appears to be pink and feels warm to touch. NEUROLOGIC: Awake, alert, and follows commands appropriately. LABORATORY DATA: White blood cell count 30.4, hemoglobin 16.6, platelets 755. Electrolytes show sodium at 154, potassium 3.2, creatinine 1.27. Lactic acid 2.1, down from admission level of 4.8. Total bilirubin 0.2, AST 76, ALT 42, alkaline phosphatase 114. Troponin is 0.146. Albumin 5.0. Lipase 188. INR 1.16. Urinalysis shows 2+ blood in the urine. No nitrite or leukocyte esterase. His ABG last night showed a pH of 7.6, CO2 of 20, pO2 of 167, base deficit is 0.4. IMAGING: As reviewed above. Note that I personally reviewed all the available and pertinent images and I agree in general with their overall reported findings. Dictated By: GRETEL VALLEJO/CY Conf#: [id number] DID#: [id number] MTDShayy
--- NOTE | 2016-11-21 15:33 | CONS ---
DATE OF ADMISSION: 11/20/2016 DATE OF CONSULTATION: 11/21/2016 TYPE OF CONSULTATION: Infectious Disease. REASON FOR CONSULTATION: Antibiotic management. HISTORY OF PRESENT ILLNESS: Lelia Maher is a 45-year-old male with anoxic encephalopathy who is admitted with a white count of 30,400 and is being seen for antibiotic management. His past problem s include: 1. Anoxic encephalopathy status post cardiac arrest after a suicide attempt in 2009. 2. Ventilator-dependent respiratory failure with tracheostomy. 3. Dysphagia with G-tube. 4. Seizure disorders. 5. History of schizophrenia. Patient had "altered level of consciousness" although I do not know how that was determined. He had a temperature of 103.3, tachycardic. White count was 30,400. Lactic acid 4.8. Chest x-ray showed mild bibasilar atelectasis, gaseous distention of the bowel. He underwent CT scan of the abdomen a nd pelvis which revealed retained stool in the rectum. He might have colonic-pseudo obstruction. H e also had mildly dilated small bowel loops in the abdomen and pelvis secondary to colonic distentio n, patchy opacification of the posteromedial left upper quadrant, retroperitoneal fat, nonspecific, mild to moderate atherosclerotic arterial calcifications, consolidation of the posterior left lung b ase, probably atelectasis. Cultures were done and the patient was placed on broad spectrum antibiot ics. A central line was inserted for IV fluids. The patient was admitted. PAST MEDICAL HISTORY: Operations as outlined. Status post tracheostomy, status post G-tube. FAMILY HISTORY: Noncontributory. SOCIAL HISTORY: He lives in a group home home. He does not smoke, drink or abuse drugs. ALLERGIES: NONE TO PENICILLIN, SULFA OR FOODS. MEDICATIONS: Per chart. REVIEW OF SYSTEMS: As per HPI. PHYSICAL EXAMINATION: GENERAL: The patient is a well-developed, obese male who is unable to open his eyes, but does not f ollow commands. VITAL SIGNS: T-max 103.6. Otherwise, vital signs stable. SKIN: Without generalized rash. HEENT: Within normal limits. NECK: Tracheostomy in place, small amount of secretions. LYMPH NODES: None palpable. CHEST: Decreased breath sounds at the bases with occasional rhonchi. HEART: Tachycardic, without murmur or gallop. ABDOMEN: Soft, nontender, without organosplenomegaly or masses. Bowel sounds are hypoactive. He h as a G-tube in place. EXTREMITIES: Without cyanosis, clubbing, or edema. He has contractures of all 4 extremities. RECTAL/GENITAL EXAMINATION: He has a Charles catheter in place. NEUROLOGIC: The patient does not follow commands. He has anoxic encephalopathy. IMPRESSION AND PLAN: The patient comes in with sepsis. He was started on broad spectrum antibiotic therapy to which I concur. He is on vancomycin and Zosyn. He is going to be seen by Dr. Murcia in surgical consultation. He is going to be seen by Dr. Walton for GI and Dr. Jhonny Aceves from Nephrolog y. Dr. Torres will follow for ventilatory management. We will continue him on current therapy. T cassandra should be given to hospice care. I will dictate my findings to Dr. Courtney. Dictated By: MCKENNA MORRIS MD, JD/CY Conf#: [id number] DID#: [id number]
[2016-11-21 15:36] LABS: CALCIUM 7.1 mg/dl (8.4-10.2); CREATININE 0.67 mg/dl (0.61-1.24); PHOSPHORUS 2.2 mg/dl (2.5-4.9)
[2016-11-21 15:46] LABS: POTASSIUM 2.4 mmol/L (3.5-5.1)
[2016-11-21] MEDS ORDERED: POTASSIUM CHLORIDE (SR) 20 MEQ TAB PO STA (15:56)
[2016-11-21] MEDS ORDERED: POTASSIUM CHLORIDE 250 ML IVPB ONE (16:00)
[2016-11-21] MEDS: D5W + KCL 20 MEQ 1,000 ML IV SCH (16:00)
[2016-11-21] MEDS ORDERED: POTASSIUM CHLORIDE 20 MEQ POWDER FOR ORAL SOLN GTB STA (16:20)
[2016-11-21] MEDS: PIPER-TAZO 3.375 GM IV (PMX) 100 ML IVPB SCH (21:14)
--- NOTE | 2016-11-21 21:45 | RADRPT ---
PROCEDURE: Renal US. CLINICAL INDICATION: Acute renal failure. TECHNIQUE: Multiple sonographic images of the kidneys and urinary bladder were obtained. The imag es were reviewed on a PACS workstation. COMPARISON: 07/19/2016. FINDINGS: The kidneys are well visualized. The right kidney measures 12.3 x 4.6 x 4.9 cm. The left kidney genia ures 9.3 x 5.1 x 4.2 cm. There are nonobstructing stones in the left kidney measuring up to 1.7 cm. The right renal cortex appears atrophic. There is no evidence for obstructive uropathy. The urinary bladder is normal in appearance. IMPRESSION: 1. No hydronephrosis. 2. Right renal cortical atrophy. 3. Nonobstructing left renal stones measuring up to 1.7 cm. 4. Normal appearance of the urinary bladder. RPTAT: HTAR .Lux Resendez MD, Date Time Electronically viewed and signed by .Lux Resendez MD, MD on 11/21/2016 21:45 .R/
--- NOTE | 2016-11-21 22:16 | CONS ---
DATE OF ADMISSION: 11/20/2016 DATE OF CONSULTATION: 11/21/2016 NEPHROLOGY CONSULTATION REFERRING PHYSICIAN: Guru Courtney MD REASON FOR CONSULTATION: Acute renal failure, hypokalemia, hypernatremia, lactic acidosis. HISTORY OF PRESENT ILLNESS: This is a 45-year-old male who has a past medical history of anoxic encephalopathy from a cardiac arrest after suicide attempt in 2009, ventilator-dependent respiratory failure status post tracheostomy, dysphagia status post G-tube, seizure disorder, schizophrenia. The patient is from a long term facility where he was brought in because of altered level of consciousness than his baseline. He was tachycardic and was desaturating. He was noted to have a WBC count of 30,000, and lactic acid was elevated. He was in septic shock. The patient had CT of the abdomen and pelvis which revealed moderate volume of retained stool in the rectum, possible colonic obstruction secondary to impacted stool in the colon. On his chemistry , he was noted to have hypokalemia with a potassium of 3.2, BUN 46, creatinine 1.2, sodium was 154 and lactic acid was elevated with hypercalcemia and renal has been consulted for electrolyte abnormalities and acute renal failure. REVIEW OF SYSTEMS: Unable to obtain from the patient, since he is currently in ventilator-dependent respiratory failure. PAST MEDICAL HISTORY: 1. Anoxic encephalopathy, status post cardiac arrest after a suicide attempt in 2009. 2. Ventilator-dependent respiratory failure, status post tracheostomy. 3. Dysphagia, status post G-tube. 4. Seizure disorder. 5. Schizophrenia. PAST SURGICAL HISTORY: History of tracheostomy, history of G-tube placement. FAMILY HISTORY: Not available. SOCIAL HISTORY: The patient is a resident of a long term facility. No tobacco smoking, alcohol or recreational drug use as per the senior care charts. ALLERGIES: NO KNOWN DRUG ALLERGIES. PHYSICAL EXAMINATION: VITAL SIGNS: Temperature 100, heart rate 113, respirations 20, blood pressure 109/77, saturation is 100% on FiO2 of 40%. GENERAL: The patient is nonverbal, status post tracheostomy connected to ventilator. NECK: Tracheostomy is clear. No erythema or discharge. Neck is supple. No JVD or lymphadenopathy. Dry mucous membranes. LUNGS: Bilateral decreased breath sounds with minimal basilar crackles. HEART: S1, S2, tachycardia, no murmur. ABDOMEN: Soft. G-tube is in place. EXTREMITIES: No clubbing, cyanosis, edema. The patient has mild to 1+ pitting edema of the lower extremities. NEUROLOGICAL: Uncooperative for exam. PSYCHIATRIC: Uncooperative for exam. LABORATORY DATA/DIAGNOSTIC IMAGING: Sodium 154, potassium 3.2, chloride 109, bicarbonate 22, BUN 46, creatinine 1.2, glucose 229, calcium 10.7, albumin 5. WBC count is 30,000, hemoglobin 16.6, platelet count is 755. Prothrombin time 14.8, PTT 35.8, INR 1.16. Urinalysis shows 2+ blood, negative glucose, negative nitrite, negative leukocyte esterase. CT of the abdomen and pelvis shows colonic obstruction with possible stool impaction. Chest x-ray shows a right internal jugular venous catheter. No pneumothorax. Otherwise, stable. 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 Acute kidney injury secondary to severe prerenal azotemia and ischemic acute tubular necrosis from a bowel obstruction. 2. Severe hypernatremia secondary to a large free water deficit. 3. Hypokalemia. 4. Elevated troponin secondary to possible demand ischemia. 5. Sepsis of unknown etiology. 6. Possible small-bowel obstruction from fecal impaction. 7. History of ventilator-dependent respiratory failure secondary to anoxic encephalopathy from cardiac arrest, status post tracheostomy. 8. History of dysphagia, status post G-tube placement. 9. History of seizure disorder. 10. History of schizophrenia. 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 PLAN: 1. The patient is currently seen in the emergency room. He is getting admitted to the ICU. I switched his IV fluids from D5 half NS to D5W with 20 mEq KCl to run at 75 mL per hour. 2. I will replace the patient's potassium, because the followup potassium has been severely low. 3. Continue the IV antibiotics as per the primary care team. Other subspecialists, general surgery and infectious disease, has been consulted on the patient. The patient is currently seen in ER and has been started on IV fluids. The patient likely has possible acute kidney injury. I will order his renal ultrasounds to assess for kidney size to rule out hydronephrosis. Depending on the patient's course in the hospital, we will decide further plan. Once again, thank you, Dr. Courtney, for this consultation. I will continue to follow this patient. Total time spent in this patient's consultation in the emergency room and communicating with the nursing staff took more than 60 minutes. Dictated By: UMM MANNING MD, KP/CY Conf#: [id number] DID#: [id number] MTDD
[2016-11-21] MEDS: METOPROLOL 25 MG TAB PO SCH (23:37)
[2016-11-22] MEDS: PIPER-TAZO 3.375 GM IV (PMX) 100 ML IVPB SCH ×4 (00:53→21:32)
[2016-11-22] MEDS: VANCOMYCIN 1 GM in NS 250 ML IVPB SCH ×2 (01:57→15:31)
[2016-11-22] MEDS: PANTOPRAZOLE 40 MG INJ IV SCH (05:33)
--- NOTE | 2016-11-22 06:28 | CONS ---
DATE OF ADMISSION: 11/20/2016 DATE OF CONSULTATION: 11/21/2016 REASON FOR CONSULTATION: Tachyarrhythmia and positive troponin. REQUESTING PHYSICIAN: Richard Courtney MD HISTORY OF PRESENT ILLNESS: Mr. Maher is a 45-year-old male with a history of anoxic encephalopat hy status post cardiac arrest after a suicide attempt in 2009, with subsequent tracheostomy and vent -dependent respiratory failure, dysphagia, status post G-tube, seizure disorder, psychiatric disorde r, who was [facility] from his [facility] facility due to altered mental state more than baseline, as sociated tachycardia and hypoxia, as well as fevers. Upon arrival temperature of 103.6, blood press ure 91/67, pulse 148, respiratory rate 31, saturating 98% on 100%. The patient's labs notable for a sodium of 154, potassium 3.2, creatinine 1.27, BUN 46, AST 76, ALT 42, troponin positive at 0.146, INR of 1.1. UA no infection, but positive hematuria. The patient underwent a chest x-ray, revealin g mild bibasilar atelectasis, gaseous distention of the bowel. An abdominal pelvic CT revealing mode rate volume of retained stool in the rectum, proximal colon is markedly distended with gas and fluid . , but might represent colonic obstruction. Several mildly dilated small loops of bowel, hor seshoe kidney, mild to moderate atherosclerotic arterial calcifications, consolidation of the geriatric nurse assistant ior left lung. The patient's electrocardiogram revealed a supraventricular tachycardia, rate of 148 , regular, with diffuse nonspecific ST and T-wave abnormalities. The patient thus far has been yusuf anjali with potassium repletion, antibiotic therapy, morphine, IV fluid hydration, aspirin, bronchodila tors and now awaits admit to the ICU. PAST MEDICAL HISTORY: As above in the HPI. MEDICATIONS CURRENTLY IN THE HOSPITAL: 1. Lovenox 30 mg subcutaneous daily. 2. Protonix 40 mg IV daily. 3. Zosyn. 4. Potassium chloride. 5. Vancomycin. 6. Zofran. 7. Albuterol. 8. Atrovent. 9. Morphine. 10. Pepcid 20 mg IV q.12. 11. Tylenol liquid. ALLERGIES: NO KNOWN DRUG ALLERGIES. SOCIAL HISTORY: No tobacco, ETOH or illicit drug use. FAMILY HISTORY: No history of sudden cardiac or early CAD. REVIEW OF SYSTEMS: As above in the HPI. CONSTITUTIONAL: No fevers, chills. PULMONARY: Respiratory failure, status post tracheostomy. GASTROINTESTINAL: Dysphagia. GENITOURINARY: Hematuria. PSYCHIATRIC: Positive psychiatric history. NEUROLOGIC: Anoxic encephalopathy. PHYSICAL EXAMINATION: VITAL SIGNS: Temperature most recently 101.9, blood pressure 111/76, pulse 107, saturating 100% on FIO2 of 40%. GENERAL: The patient is encephalopathic, nonresponsive. NECK: Tracheostomy in place. CHEST: Upper airway sounds are rhonchorous sounds. HEART: Tachycardic, regular rhythm. Normal S1, S2. A I/ systolic murmur, nondisplaced PMI. ABDOMEN: Positive bowel sounds, soft. Positive G-tube. EXTREMITIES: Contracted. 1+ pulses bilaterally, posterior tibial. LABORATORIES: As above in the HPI, with most recently from today, sodium 150, potassium 2.4, creati nine 0.67, BUN 31, white blood cell count 423, hemoglobin 10.7, platelet count 259. ABG revealing a pH of 7.6, a PaO2 of 167, pCO2 of 20. IMAGING STUDIES: As above in the HPI. No further electrograms for my review at this time. IMPRESSION: 1. Positive troponin in the setting of high fevers and tachycardia, now trending negative, likely d emand event type 2 infarct. 2. Abnormal electrocardiogram, with nonspecific ST-T and T-wave abnormalities. 3. Supraventricular tachycardia, possibly sinus tachycardia in the setting of fevers versus atrial flutter and rate. 4. Hypotension. Improving. 5. Fevers. 6. Anoxic encephalopathy. 7. Chronic respiratory failure, status post tracheostomy. 8. Hypernatremia 9. Hypokalemia. 10. Anemia. 11. Hematuria. RECOMMENDATIONS: 1. At this time would admit the patient to ICU telemetry monitoring, following rhythm and rate cont rol closely. 2. Continue the patient's antibiotic therapy, follow up all culture data. 3. Would start the patient on aspirin in the setting of positive troponins. 4. Would continue to gradually replete the patient's potassium, as you are doing. 5. Check a 2D echocardiogram to further assess the patient's ejection fraction, wall motion, or any major abnormalities to assess for the significance of positive troponin. 6. Check a fasting lipid panel for general risk stratification and initiate lipid-lowering medicati on as necessary. 7. Continue to check serial EKGs to assess for any significant ongoing changes. Suggest an EKG upon arrival to the unit, EKG in the morning, EKG for any change in rhythm. Thank you for allowing me to take part in the care of this patient. I will continue to follow along very closely with you. Further recommendations will be made as the patient progresses through his inpatient hospital clinical course. Dictated By: ELOINA CRANE/CY Conf#: [id number] DID#: [id number] CC: RICHARD COURTNEY MD;*EndCC*
[2016-11-22 06:34] LABS: CREATININE 0.61 mg/dl (0.61-1.24)
[2016-11-22 06:57] LABS: CHOL/HDL RATIO 4.9 RATIO
[2016-11-22 07:29] VITALS: BP 118/80; PULSE 87; RESP 19
[2016-11-22 08:04] VITALS: BP 117/79; PULSE 87; RESP 18
[2016-11-22 09:06] VITALS: BP 114/78; PULSE 90; RESP 18
[2016-11-22] MEDS: METOPROLOL 25 MG TAB PO SCH ×2 (09:40→21:21)
[2016-11-22] MEDS: ASPIRIN 81 MG TAB PO SCH (09:42)
[2016-11-22] MEDS: FAMOTIDINE 20 MG INJ IV SCH ×2 (09:43→21:20)
[2016-11-22] MEDS: ENOXAPARIN 30 MG/0.3 ML SYG SC SCH (09:43)
[2016-11-22 10:00] VITALS: BP 129/94; PULSE 76; PULSE 77; RESP 19
[2016-11-22 11:00] VITALS: BP 105/73; PULSE 77; RESP 19
[2016-11-22 12:00] VITALS: PULSE 75
[2016-11-22] MEDS: D5W + KCL 20 MEQ 1,000 ML IV SCH (12:01)
--- NOTE | 2016-11-22 14:31 | CONS ---
Date/Time of Note Date/Time of Note DATE: 11/22/16 TIME: 14:29 Assessment/Plan Assessment/Plan Additional Assessment/Plan 1. Acute kidney injury secondary to severe prerenal azotemia and ischemic acute tubular necrosis from a bowel obstruction. 2. Severe hypernatremia secondary to a large free water deficit. 3. Hypokalemia. 4. Elevated troponin secondary to possible demand ischemia. 5. Sepsis of unknown etiology. 6. Possible small-bowel obstruction from fecal impaction. 7. History of ventilator-dependent respiratory failure secondary to anoxic encephalopathy from cardiac arrest, status post tracheostomy. 8. History of dysphagia, status post G-tube placement. 9. History of seizure disorder. 10. History of schizophrenia. 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 PLAN: continue IVF D5W with KCL at current rate K replacement Cr normal, Na improving will follow up Consultation Date/Type/Reason Admit Date/Time Initial Consult Date 11/21/16 Type of Consultation: NEPHROLOGY Reason for Consultation acute renal failure, hypernatremia, Hypokalemia Referring Provider: RICHARD GIRARD MD 24 HR Interval Summary Free Text/Dictation remains still jae ER waitign for bed, Na improving, K low, Cr normal now Exam/Review of Systems Vital Signs Vitals Vital Signs Date Time Temp Pulse Resp B/P Pulse Ox O2 Delivery O2 Flow Rate FiO2 11/22/16 13:56 79 21 98 40 11/22/16 11:00 105/73 11/22/16 10:00 Mechanical Ventilator 11/22/16 07:29 98.6 Intake and Output 11/21/16 11/21/16 11/22/16 15:00 23:00 07:00 Intake Total 2000 ml 250 ml Output Total 530 ml 1700 ml 1000 ml Balance 1470 ml -1450 ml -1000 ml Exam GENERAL: The patient is nonverbal, status post tracheostomy connected to ventilator. NECK: Tracheostomy is clear. No erythema or discharge. Neck is supple. No JVD or lymphadenopathy. Dry mucous membranes. LUNGS: Bilateral decreased breath sounds with minimal basilar crackles. HEART: S1, S2, tachycardia, no murmur. ABDOMEN: Soft. G-tube is in place. EXTREMITIES: No clubbing, cyanosis, edema. The patient has mild to 1+ pitting edema of the lower extremities. NEUROLOGICAL: Uncooperative for exam. PSYCHIATRIC: Uncooperative for exam. Results Result Diagram: 6/16/17 1500 11/22/16 0522 Results 24 hrs Laboratory Tests Test 11/21/16 15:00 11/21/16 16:00 11/21/16 21:00 11/22/16 00:28 White Blood Count 14.3 #H Red Blood Count 3.92 #L Hemoglobin 10.7 #L Hematocrit 34.0 #L Mean Corpuscular Volume 86.7 Mean Corpuscular Hemoglobin 27.3 L Mean Corpuscular Hemoglobin Concent 31.5 L Red Cell Distribution Width 14.9 H Platelet Count 259 # Mean Platelet Volume 10.9 H Neutrophils % 76.0 Lymphocytes % 17.0 Monocytes % 6.4 Eosinophils % 0.0 Basophils % 0.2 Nucleated Red Blood Cells % 0.0 Neutrophils # 10.9 H Lymphocytes # 2.4 Monocytes # 0.9 Eosinophils # 0.0 Basophils # 0.0 Nucleated Red Blood Cells # 0.0 Sodium Level 150 H Potassium Level 2.4 *L Chloride Level 119 H Carbon Dioxide Level 21 Anion Gap 12 # Blood Urea Nitrogen 31 #H Creatinine 0.67 Glucose Level 140 # Calcium Level 7.1 L Phosphorus Level 2.2 L Troponin I 0.053 0.037 0.034 Thyroid Stimulating Hormone (TSH) 0.654 Test 11/22/16 05:22 Blood Urea Nitrogen 24 H Creatinine 0.61 Triglycerides Level 162 H Cholesterol Level 108 LDL Cholesterol, Calculated 54 HDL Cholesterol 22 L Cholesterol/HDL Ratio 4.9 Medications Medications Current Medications Acetaminophen (Tylenol Liquid) 650 mg Q6H PRN PO PAIN LEVEL 1-3 OR FEVER Last administered on 11/21/16 16:32; Admin Dose 650 MG; Start 11/21/16 at 03:00 Famotidine (Pepcid Iv) 20 mg Q12 IV Last administered on 11/22/16 09:43; Admin Dose 20 MG; Start 11/21/16 at 09:00 Ondansetron HCl (Zofran Inj) 4 mg Q6H PRN IV NAUSEA AND/OR VOMITING; Start at 13:00 Morphine Sulfate (morphine) 2 mg Q4H PRN IV PAIN LEVEL 7-10; Start 11/21/16 at 13:00 Pantoprazole (Protonix Iv) 40 mg DAILY@06 IV Last administered on 11/22/16 05: 33; Admin Dose 40 MG; Start 11/22/16 at 06:00 Enoxaparin Sodium 30 mg 30 mg DAILY SC Last administered on 11/22/16 09:43; Admin Dose 30 MG; Start 11/22/16 at 09:00 Vancomycin HCl 250 ml @ 125 mls/hr Q12H IVPB Last administered on 11/22/16 01 :57; Admin Dose 125 MLS/HR; Start 11/21/16 at 14:30 Potassium Chloride/Dextrose 1,000 ml @ 80 mls/hr [id number] IV Last administered on 11/22/16 12:01; Admin Dose 80 MLS/HR; Start 11/21/16 at 16:00 Piperacillin Sod/ Tazobactam Sod (Zosyn 3.375gm/ 100 ml (Pmx)) 100 ml @ 100 mls /hr Q6 IVPB Last administered on 11/22/16 12:09; Admin Dose 100 MLS/HR; Start 11/21/16 at 20:00 Aspirin (Aspirin) 81 mg DAILY PO Last administered on 11/22/16 09:42; Admin Dose 81 MG; Start 11/22/16 at 09:00 Metoprolol Tartrate (Lopressor) 25 mg BID PO Last administered on 11/22/16 09: 40; Admin Dose 25 MG; Start 11/21/16 at 21:00 Miscellaneous Information (*Rx Drug Level Order Reminder*) VANCOMYCIN TROUGH AT 0100 ONCE ONCE XX ; Start 11/23/16 at 01:00; Stop 11/23/16 at 01:01 UMM MANNING MD Nov 22, 2016 14:31
--- NOTE | 2016-11-22 15:16 | CONS ---
Date/Time of Note Date/Time of Note DATE: 11/22/16 TIME: 15:02 Assessment/Plan Assessment/Plan Chief Complaint/Hosp Course ID PROGRESS NOTE ABX DAY # 2=> Vanco IV + Zosyn 24H INTERVAL SUMMARY * 46 yo M see in ED today - waiting for bed availability => Chart reviewed: Chronic encephalopath w/Trach & Peg, admit from SNF w/Fevers & Leukocytosis * Fever on admission = RESOLVED and WBC down today after initiation broad spectrum ABX * MICRO: UA + Urine C&S ordered-> Now cancelled in computer was not completed * BCx (-) preliminary, Respiratory Cx (+)GRAM NEGATIVE TREY QUANTITY 4+ PHYSICAL EXAMINATION: GENERAL: VSS, NAD, no fever HEENT: Unremarkable NECK: Trach-> midline CHEST: Equal chest rise bilaterally, without dyspnea on observation HEART: Pulse RRR ABDOMEN: Soft EXTREMITIES: Warm SKIN: Warm, dry ID ASSESSMENT: 46 yo M admitted with: 1. Sepsis w/fevers, leukocytosis, tachycardia (SVT), w/(+)Troponin bump 2/2 demand ischemia on admission 2. Aspiration pneumonitis SNF w/sputum (+)GNR = heavy growth 3. Hematuria -> Suspect urosepsis however UA C&S were ordered, yet cancelled in computer and not completed. 4. Nonobstructing left renal stones measuring up to 1.7 cm. 5. Constipation on admission w/CT ABD FINDING: * Moderate volume of retained stool in the rectum. The more proximal colon is markedly distended with gas and fluid. This is nonspecific but might represent a colonic obstruction secondary to impacted stool in the rectum versus a colonic pseudo-obstruction (Loren syndrome). ABX ALLERGIES: KNDA INVASIVES: *PIV, Trach, Peg, R-IJ TLC CURRENT ABX: ABX DAY #2 => Vanco IV + Zosyn ID RECOMMENDATIONS: 1. Suspect Complicated UTI w/hematuria & Urosepsis (+/-) Aspiration Pneumonitis -> Improved w/broad spectrum empiric IV ABX 2. Continue current ABX; unfortunately, does not appear UA C&S was sent timely; hence order cancelled by lab for lack of specimin. 3. Will continue to follow Problems: Consultation Date/Type/Reason Admit Date/Time Initial Consult Date 11/21/16 Type of Consultation: ID Referring Provider: RICHARD GIRARD MD Exam/Review of Systems Vital Signs Vitals Vital Signs Date Time Temp Pulse Resp B/P Pulse Ox O2 Delivery O2 Flow Rate FiO2 11/22/16 13:56 79 21 98 40 11/22/16 11:00 105/73 11/22/16 10:00 Mechanical Ventilator 11/22/16 07:29 98.6 Intake and Output 11/21/16 11/21/16 11/22/16 15:00 23:00 07:00 Intake Total 2000 ml 250 ml Output Total 530 ml 1700 ml 1000 ml Balance 1470 ml -1450 ml -1000 ml Results Result Diagram: 11/21/16 1500 11/22/16 0522 Results 24 hrs Laboratory Tests Test 11/21/16 16:00 11/21/16 21:00 11/22/16 00:28 11/22/16 05:22 Thyroid Stimulating Hormone (TSH) 0.654 Troponin I 0.037 0.034 Blood Urea Nitrogen 24 H Creatinine 0.61 Triglycerides Level 162 H Cholesterol Level 108 LDL Cholesterol, Calculated 54 HDL Cholesterol 22 L Cholesterol/HDL Ratio 4.9 Medications Medications Current Medications Acetaminophen (Tylenol Liquid) 650 mg Q6H PRN PO PAIN LEVEL 1-3 OR FEVER Last administered on 11/21/16 16:32; Admin Dose 650 MG; Start 11/21/16 at 03:00 Famotidine (Pepcid Iv) 20 mg Q12 IV Last administered on 11/22/16 09:43; Admin Dose 20 MG; Start 11/21/16 at 09:00 Ondansetron HCl (Zofran Inj) 4 mg Q6H PRN IV NAUSEA AND/OR VOMITING; Start at 13:00 Morphine Sulfate (morphine) 2 mg Q4H PRN IV PAIN LEVEL 7-10; Start 11/21/16 at 13:00 Pantoprazole (Protonix Iv) 40 mg DAILY@06 IV Last administered on 11/22/16 05: 33; Admin Dose 40 MG; Start 11/22/16 at 06:00 Enoxaparin Sodium 30 mg 30 mg DAILY SC Last administered on 11/22/16 09:43; Admin Dose 30 MG; Start 11/22/16 at 09:00 Vancomycin HCl 250 ml @ 125 mls/hr Q12H IVPB Last administered on 11/22/16 01 :57; Admin Dose 125 MLS/HR; Start 11/21/16 at 14:30 Potassium Chloride/Dextrose 1,000 ml @ 80 mls/hr [id number] IV Last administered on 11/22/16 12:01; Admin Dose 80 MLS/HR; Start 11/21/16 at 16:00 Piperacillin Sod/ Tazobactam Sod (Zosyn 3.375gm/ 100 ml (Pmx)) 100 ml @ 100 mls /hr Q6 IVPB Last administered on 11/22/16 12:09; Admin Dose 100 MLS/HR; Start 11/21/16 at 20:00 Aspirin (Aspirin) 81 mg DAILY PO Last administered on 11/22/16 09:42; Admin Dose 81 MG; Start 11/22/16 at 09:00 Metoprolol Tartrate (Lopressor) 25 mg BID PO Last administered on 11/22/16 09: 40; Admin Dose 25 MG; Start 11/21/16 at 21:00 Miscellaneous Information (*Rx Drug Level Order Reminder*) VANCOMYCIN TROUGH AT 0100 ONCE ONCE XX ; Start 11/23/16 at 01:00; Stop 11/23/16 at 01:01 GUNJAN CORRALES NP Nov 22, 2016 15:13
--- NOTE | 2016-11-22 19:13 | RADRPT ---
Echocardiogram Report Patient Name: FELIPA MARLOW Gender: Male Date: 1970 Study Date: 22-Nov-2016 Acid Bath Mixer: [facility] Location: [facility] Ref. Physician: ELOINA MISHRA Quality: Good Procedures: Transthoracic echocardiogram with complete 2D, M-Mode, and doppler examination. Indications: Positive Troponin. 2D/M Mode Doppler Measurement Value Normal Ranges Measurement Value Normal Ranges LVIDd 2D 3.7 3.5 - 5.6 cm AV Peak Ryan 1.1 m/sec LVIDs 2D 2.5 2.1 - 4.1 cm AV Peak PG 4.4 mmHg LVPWd 2D 1.5 0.6 - 1.1 cm LVOT Peak Ryan 1.2 m/sec IVSd 2D 1.5 0.6 - 1.1 cm LVOT Peak PG 5.5 mmHg AoR Diam 2D 1.7 2.0 - 3.7 cm MV E Peak Ryan 0.7 m/sec EDV 2D 59.5 cm3 MV A Peak Ryan 0.7 m/sec ESV 2D 15.7 cm3 MV E/A 1.0 LA Dimen 2D 3.7 2.3 - 4.0 cm MV Decel Time 189 msec MV Decel [place] 4 MV E/A 1.0 Findings Left Ventricle: Normal left ventricular systolic function. Overall, normal left ventricular systolic function. Not all segments visualized. Normal left ventricular cavity size. Moderate concentric left ventricular hypertrophy. Ejection fraction is visually estimated at 65 %. Tissue Doppler/Mitral Doppler indices are consistent with impaired relaxation (Stage I diastolic dysfunction). Right Ventricle: Normal right ventricular systolic function. Left Atrium: The left atrium is normal in size. Right Atrium: Not well visualized. Mitral Valve: Normal appearance and function of the mitral valve with trace physiologic regurgitation. Aortic Valve: No significant aortic stenosis or insufficiency. Aortic valve not well visualized. Tricuspid Valve: Normal appearance and function of the tricuspid valve with trace physiologic regurgitation. Unable to obtain RVSP due to minimal presence of tricuspid regurgitation. Pericardium: Trivial pericardial effusion. Aorta: Normal aortic root. IVC: Normal size and no respiratory collapse consistent with elevated right atrial pressure. Patient on ventilator. Conclusions 1.Normal left ventricular systolic function. Overall, normal left ventricular systolic function. Not all segments visualized. Normal left ventricular cavity size. Moderate concentric left ventricular hypertrophy. Ejection fraction is visually estimated at 65 %. Tissue Doppler/Mitral Doppler indices are consistent with impaired relaxation (Stage I diastolic dysfunction). 2.Normal right ventricular systolic function. 3.Normal appearance and function of the mitral valve with trace physiologic regurgitation. 4.No significant aortic stenosis or insufficiency. Aortic valve not well visualized. 5.Normal appearance and function of the tricuspid valve with trace physiologic regurgitation. Unable to obtain RVSP due to minimal presence of tricuspid regurgitation. 6.Trivial pericardial effusion. Electronically Signed By: Pedro Park 22-Nov-2016 15:54:44 -0700 Patient Name: FELIPA MARLOW Study Date: 22-Nov-2016 [id number]
--- NOTE | 2016-11-22 20:46 | PN ---
Date/Time of Note Date/Time of Note DATE: 11/22/16 TIME: 19:09 Assessment/Plan VTE Prophylaxis VTE Prophylaxis Intervention: other Lines/Catheters Urinary Cath still in place: Yes Assessment/Plan Assessment/Plan 1. Sepsis of unknown etiology, with shock. -per ID 2. Possible small-bowel obstruction. - Dr. Murcia is following in general surgery consultation. We will also obtain gastroenterology consultation, Dr. Walton. 3. Acute kidney injury with electrolyte imbalances. Continue IV fluids. Monitor electrolytes. - per Dr. Jhonny Aceves in nephrology consultation. 4. Elevated troponin. Continue to monitor cardiac enzymes q. 8 hours x3. - per Dr. Flor in cardiology consultation. 5. Ventilator-dependent respiratory failure. - Per pulmonary 6. Dysphagia with G-tube. - aspiration precautions 7. Seizure disorder. Continue Keppra. - seizure precautions 8. Anoxic encephalopathy, status post cardiac arrest. 9. Schizophrenia by history. Continue Lovenox for deep venous thrombosis prophylaxis and Pepcid for peptic ulcer disease prophylaxis. Further recommendations based on clinical course. Plan of care discussed with Dr. Courtney. Exam/Review of Systems Vital Signs Vitals Vital Signs Date Time Temp Pulse Resp B/P Pulse Ox O2 Delivery O2 Flow Rate FiO2 11/22/16 13:56 79 21 98 40 11/22/16 11:00 105/73 11/22/16 10:00 Mechanical Ventilator 11/22/16 07:29 98.6 Intake and Output 11/21/16 11/21/16 11/22/16 15:00 23:00 07:00 Intake Total 2000 ml 250 ml Output Total 530 ml 1700 ml 1000 ml Balance 1470 ml -1450 ml -1000 ml Exam Constitutional: frail, non-verbal Respiratory: clear to auscultation, normal air movement Cardiovascular: nl pulses, regular rate and rhythm Gastrointestinal: non-tender, other, soft Musculoskeletal: muscle weakness Extremities: normal pulses Neurological: unresponsive Skin: other Results Result Diagram: 11/21/16 1500 11/22/16 0522 Results 24 hrs Laboratory Tests Test 11/21/16 21:00 11/22/16 00:28 11/22/16 05:22 Troponin I 0.037 0.034 Blood Urea Nitrogen 24 H Creatinine 0.61 Triglycerides Level 162 H Cholesterol Level 108 LDL Cholesterol, Calculated 54 HDL Cholesterol 22 L Cholesterol/HDL Ratio 4.9 Medications Medications Current Medications Acetaminophen (Tylenol Liquid) 650 mg Q6H PRN PO PAIN LEVEL 1-3 OR FEVER Last administered on 11/21/16 16:32; Admin Dose 650 MG; Start 11/21/16 at 03:00 Famotidine (Pepcid Iv) 20 mg Q12 IV Last administered on 11/22/16 09:43; Admin Dose 20 MG; Start 11/21/16 at 09:00 Ondansetron HCl (Zofran Inj) 4 mg Q6H PRN IV NAUSEA AND/OR VOMITING; Start at 13:00 Morphine Sulfate (morphine) 2 mg Q4H PRN IV PAIN LEVEL 7-10; Start 11/21/16 at 13:00 Pantoprazole (Protonix Iv) 40 mg DAILY@06 IV Last administered on 11/22/16 05: 33; Admin Dose 40 MG; Start 11/22/16 at 06:00 Enoxaparin Sodium 30 mg 30 mg DAILY SC Last administered on 11/22/16 09:43; Admin Dose 30 MG; Start 11/22/16 at 09:00 Vancomycin HCl 250 ml @ 125 mls/hr Q12H IVPB Last administered on 11/22/16 15 :31; Admin Dose 125 MLS/HR; Start 11/21/16 at 14:30 Potassium Chloride/Dextrose 1,000 ml @ 80 mls/hr [id number] IV Last administered on 11/22/16 12:01; Admin Dose 80 MLS/HR; Start 11/21/16 at 16:00 Piperacillin Sod/ Tazobactam Sod (Zosyn 3.375gm/ 100 ml (Pmx)) 100 ml @ 100 mls /hr Q6 IVPB Last administered on 11/22/16 12:09; Admin Dose 100 MLS/HR; Start 11/21/16 at 20:00 Aspirin (Aspirin) 81 mg DAILY PO Last administered on 11/22/16 09:42; Admin Dose 81 MG; Start 11/22/16 at 09:00 Metoprolol Tartrate (Lopressor) 25 mg BID PO Last administered on 11/22/16 09: 40; Admin Dose 25 MG; Start 11/21/16 at 21:00 Miscellaneous Information (*Rx Drug Level Order Reminder*) VANCOMYCIN TROUGH AT 0100 ONCE ONCE XX ; Start 11/23/16 at 01:00; Stop 11/23/16 at 01:01 SHELLEY HERNANDEZ Nov 22, 2016 19:12
[2016-11-23] MEDS: D5W + KCL 20 MEQ 1,000 ML IV SCH ×3 (02:29→18:22)
[2016-11-23] MEDS: PIPER-TAZO 3.375 GM IV (PMX) 100 ML IVPB SCH ×4 (02:29→18:22)
[2016-11-23] MEDS: VANCOMYCIN 1 GM in NS 250 ML IVPB SCH ×2 (03:10→14:32)
[2016-11-23] MEDS: PANTOPRAZOLE 40 MG INJ IV SCH (05:43)
[2016-11-23] MEDS: METOPROLOL 25 MG TAB PO SCH ×2 (09:00→20:55)
[2016-11-23] MEDS: ENOXAPARIN 30 MG/0.3 ML SYG SC SCH (09:00)
[2016-11-23] MEDS: FAMOTIDINE 20 MG INJ IV SCH ×2 (09:11→20:56)
[2016-11-23] MEDS: ASPIRIN 81 MG TAB PO SCH (09:11)
--- NOTE | 2016-11-23 10:33 | PN ---
Date/Time of Note Date/Time of Note DATE: 11/23/16 TIME: 10:31 Assessment/Plan VTE Prophylaxis VTE Prophylaxis Intervention: other Lines/Catheters Urinary Cath still in place: Yes Assessment/Plan Assessment/Plan - Enteroatmospheric fistula, Continue Zosyn. Dr. Posada is following in general surgery consultation. Continue TPN and lipids. Continue current wound care. - Klebsiella UTI, s/p treatment - Status post exploratory laparotomy and hernia repair for incarcerated recurrent ventral hernia 1 month ago. - Diabetes mellitus. Start Lantus and continue NovoLog with Accu-Chek every 4 hours since patient is on TPN. - Anemia, continue to monitor hemoglobin and hematocrit. - Hypothyroidism. TSH is within normal limits. Continue current dose of Synthroid. - Obesity with BMI index 39. Continue Protonix for peptic ulcer disease prophylaxis. Further recommendations based on clinical course. Plan of care discussed with Dr. Courtney. Subjective 24 Hr Interval Summary Free Text/Dictation remeins on vent. GT out/ drop in H/H, coffee ground emesis noted- dr Veras notified.. staff. Constitutional: requiring IVF Respiratory: no complaints Cardiovascular: chest pain Gastrointestinal: no complaints Genitourinary: no complaints Skin: other (abdominal wound) Exam/Review of Systems Vital Signs Vitals Vital Signs Date Time Temp Pulse Resp B/P Pulse Ox O2 Delivery O2 Flow Rate FiO2 11/23/16 10:00 98.1 66 16 109/76 100 Mechanical Ventilator 11/23/16 06:50 35 Intake and Output 11/22/16 11/22/16 11/23/16 15:00 23:00 07:00 Intake Total 350 ml 1100 ml Output Total 810 ml 275 ml 1200 ml Balance -810 ml 75 ml -100 ml Exam Constitutional: alert, oriented, well developed Respiratory: clear to auscultation, normal air movement Cardiovascular: nl pulses, regular rate and rhythm Gastrointestinal: soft, tender Musculoskeletal: nl extremities to inspection Neurological: nl mental status, nl speech Results Result Diagram: 11/21/16 1500 11/22/16 0522 Results 24 hrs Laboratory Tests Test 11/23/16 01:00 Vancomycin Level Trough 10.9 Medications Medications Current Medications Acetaminophen (Tylenol Liquid) 650 mg Q6H PRN PO PAIN LEVEL 1-3 OR FEVER Last administered on 11/21/16t 16:32; Admin Dose 650 MG; Start 11/21/16 at 03:00 Famotidine (Pepcid Iv) 20 mg Q12 IV Last administered on 11/23/16 09:11; Admin Dose 20 MG; Start 11/21/16 at 09:00 Ondansetron HCl (Zofran Inj) 4 mg Q6H PRN IV NAUSEA AND/OR VOMITING; Start at 13:00 Morphine Sulfate (morphine) 2 mg Q4H PRN IV PAIN LEVEL 7-10; Start 11/21/16 at 13:00 Pantoprazole (Protonix Iv) 40 mg DAILY@06 IV Last administered on 11/23/16 05: 43; Admin Dose 40 MG; Start 11/22/16 at 06:00 Enoxaparin Sodium 30 mg 30 mg DAILY SC Last administered on 11/22/16 09:43; Admin Dose 30 MG; Start 11/22/16 at 09:00 Vancomycin HCl 250 ml @ 125 mls/hr Q12H IVPB Last administered on 11/23/16 03 :10; Admin Dose 125 MLS/HR; Start 11/21/16 at 14:30 Potassium Chloride/Dextrose 1,000 ml @ 80 mls/hr [id number] IV Last administered on 11/23/16 02:29; Admin Dose 80 MLS/HR; Start 11/21/16 at 16:00 Piperacillin Sod/ Tazobactam Sod (Zosyn 3.375gm/ 100 ml (Pmx)) 100 ml @ 100 mls /hr Q6 IVPB Last administered on 11/23/16 05:43; Admin Dose 100 MLS/HR; Start 11/21/16 at 20:00 Aspirin (Aspirin) 81 mg DAILY PO Last administered on 11/23/16 09:11; Admin Dose 81 MG; Start 11/22/16 at 09:00 Metoprolol Tartrate (Lopressor) 25 mg BID PO Last administered on 11/22/16 21: 21; Admin Dose 25 MG; Start 11/21/16 at 21:00 SHELLEY HERNANDEZ Nov 23, 2016 10:33
[2016-11-23 10:52] LABS: ADD SCAN DIFF NO
[2016-11-23 10:57] LABS: BASOPHILS % 0.3 % (0.0-2.0); EOSINOPHILS # 0.2 10^3/ul (0.0-0.5); EOSINOPHILS % 2.8 % (0.0-7.0); HEMATOCRIT 30.7 % (42.0-52.0); HEMOGLOBIN 9.5 g/dl (14.0-18.0); LYMPHOCYTES # 1.6 10^3/ul (0.8-2.9); MEAN CORPUSCULAR HEMOGLOBIN 27.2 pg (29.0-33.0); MEAN CORPUSCULAR HGB CONC 30.9 g/dl (32.0-37.0); MEAN PLATELET VOLUME 10.6 fl (7.4-10.4); MONOCYTE # 0.4 10^3/ul (0.3-0.9); MONOCYTES % 4.8 % (0.0-11.0); NEUTROPHIL # 5.5 10^3/ul (1.6-7.5); NEUTROPHILS % 70.8 % (39.0-77.0); PLATELET COUNT 190 10^3/UL (140-415); RED BLOOD COUNT 3.49 10^6/ul (4.70-6.10); RED CELL DISTRIBUTION WIDTH 13.9 % (11.5-14.5); WHITE BLOOD COUNT 7.8 10^3/ul (4.8-10.8)
[2016-11-23 11:14] LABS: ALBUMIN 3.4 g/dl (3.3-4.9); ALBUMIN/GLOBULIN RATIO 1.17; BILIRUBIN,INDIRECT 0.3 mg/dl (0-1.1); BILIRUBIN,TOTAL 0.3 mg/dl (0.2-1.3); CALCIUM 8.7 mg/dl (8.4-10.2); CREATININE 0.51 mg/dl (0.61-1.24); POTASSIUM 3.6 mmol/L (3.5-5.1); TOTAL PROTEIN 6.3 g/dl (6.1-8.1)
--- NOTE | 2016-11-23 12:39 | CONS ---
Date/Time of Note Date/Time of Note DATE: 11/23/16 TIME: 12:37 Assessment/Plan Assessment/Plan Additional Assessment/Plan Ventilator setting; AC of 16, tidal volume 500, PEEP of 5, 40% FiO2. Assessment recommendations; 1. Patient admitted with fecal impaction causing bowel obstruction with significant clinical improvement. 2. Chronic respiratory failure, patient remains ventilator dependent. 3. Marked reduction in leukocytosis. 4. Stable seizure disorder. 5. Chronic respiratory failure, severe anoxic brain injury. Continue current supportive care. Consultation Date/Type/Reason Admit Date/Time Initial Consult Date 11/21/16 Type of Consultation: Pulmonary critical care Referring Provider: RICHARD GIRARD MD 24 HR Interval Summary Free Text/Dictation Patient condition remains stable. Remains unresponsive due to underlying severe anoxic brain injury. Patient remains ventilator dependent. No overt seizure activity noted. General; middle-aged male, on ventilator via tracheostomy currently in no distress. Normal arousable. Remains unresponsive. Exam/Review of Systems Vital Signs Vitals Vital Signs Date Time Temp Pulse Resp B/P Pulse Ox O2 Delivery O2 Flow Rate FiO2 11/23/16 12:00 98.6 66 16 102/89 100 Mechanical Ventilator 11/23/16 09:20 40 Intake and Output 11/22/16 11/22/16 11/23/16 15:00 23:00 07:00 Intake Total 350 ml 1100 ml Output Total 810 ml 275 ml 1200 ml Balance -810 ml 75 ml -100 ml Exam HEENT exam; supple neck, no JVD. No lymphadenopathy. Midline trachea. No thyromegaly. Tracheostomy in place. Insertion site is clean. Patient has multiple carious teeth. Chest examination; diminished but clear vessel. S1-S2 audible, no murmurs. Regular rhythm. Abdomen examination; soft, G-tube in place. Nondistended. Bowel sounds audible. Extremity exam is; no peripheral edema. Patient severe contractures involving all 4 extremities. 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; patient remains unresponsive Results Result Diagram: 11/23/16 1038 11/23/16 1038 Results 24 hrs Laboratory Tests Test 11/23/16 01:00 11/23/16 10:38 Vancomycin Level Trough 10.9 White Blood Count 7.8 # Red Blood Count 3.49 L Hemoglobin 9.5 L Hematocrit 30.7 L Mean Corpuscular Volume 88.0 Mean Corpuscular Hemoglobin 27.2 L Mean Corpuscular Hemoglobin Concent 30.9 L Red Cell Distribution Width 13.9 Platelet Count 190 # Mean Platelet Volume 10.6 H Neutrophils % 70.8 Lymphocytes % 21.0 Monocytes % 4.8 Eosinophils % 2.8 Basophils % 0.3 Nucleated Red Blood Cells % 0.0 Neutrophils # 5.5 Lymphocytes # 1.6 Monocytes # 0.4 Eosinophils # 0.2 Basophils # 0.0 Nucleated Red Blood Cells # 0.0 Sodium Level 141 Potassium Level 3.6 Chloride Level 109 # Carbon Dioxide Level 22 Anion Gap 14 Blood Urea Nitrogen 9 # Creatinine 0.51 L Glucose Level 96 # Calcium Level 8.7 Total Bilirubin 0.3 Direct Bilirubin 0.00 Indirect Bilirubin 0.3 Aspartate Amino Transf (AST/SGOT) 38 Alanine Aminotransferase (ALT/SGPT) 37 Alkaline Phosphatase 56 Total Protein 6.3 Albumin 3.4 Globulin 2.90 Albumin/Globulin Ratio 1.17 Medications Medications Current Medications Acetaminophen (Tylenol Liquid) 650 mg Q6H PRN PO PAIN LEVEL 1-3 OR FEVER Last administered on 11/21/16 16:32; Admin Dose 650 MG; Start 11/21/16 at 03:00 Famotidine (Pepcid Iv) 20 mg Q12 IV Last administered on 11/23/16 09:11; Admin Dose 20 MG; Start 11/21/16 at 09:00 Ondansetron HCl (Zofran Inj) 4 mg Q6H PRN IV NAUSEA AND/OR VOMITING; Start at 13:00 Morphine Sulfate (morphine) 2 mg Q4H PRN IV PAIN LEVEL 7-10; Start 11/21/16 at 13:00 Pantoprazole (Protonix Iv) 40 mg DAILY@06 IV Last administered on 11/23/16 05: 43; Admin Dose 40 MG; Start 11/22/16 at 06:00 Enoxaparin Sodium 30 mg 30 mg DAILY SC Last administered on 11/22/16 09:43; Admin Dose 30 MG; Start 11/22/16 at 09:00 Vancomycin HCl 250 ml @ 125 mls/hr Q12H IVPB Last administered on 11/23/16 03 :10; Admin Dose 125 MLS/HR; Start 11/21/16 at 14:30 Potassium Chloride/Dextrose 1,000 ml @ 80 mls/hr [id number] IV Last administered on 11/23/16 02:29; Admin Dose 80 MLS/HR; Start 11/21/16 at 16:00 Piperacillin Sod/ Tazobactam Sod (Zosyn 3.375gm/ 100 ml (Pmx)) 100 ml @ 100 mls /hr Q6 IVPB Last administered on 11/23/16 05:43; Admin Dose 100 MLS/HR; Start 11/21/16 at 20:00 Aspirin (Aspirin) 81 mg DAILY PO Last administered on 11/23/16 09:11; Admin Dose 81 MG; Start 11/22/16 at 09:00 Metoprolol Tartrate (Lopressor) 25 mg BID PO Last administered on 11/22/16 21: 21; Admin Dose 25 MG; Start 11/21/16 at 21:00 MI JEFFERS 18, 2017 12:39
--- NOTE | 2016-11-23 12:53 | EN ---
Date/Time of Note Date/Time of Note DATE: 11/23/16 TIME: 12:52 ER Progress Note The patient's G-tube was found out. I replaced the patient's G-tube. X-ray imaging pending. G Tube Insertion: Indication: Malfuncitoning G Tube G Tube Size: 20 [place] Procedure: Sterile procedure was observed. The new G-tube was checked for leaks and was lubricated. Insertion of the new G-tube through stoma was performed without complications and met no resistance. The balloon was then inflated, the tube was pulled back and plastic wheel was adjusted to the skin. The G-tube was then dressed and secured in place. A postplacement x-ray with water-soluble contrast was ordered. There were no complications and the patient tolerated the procedure well. CHARISSA PASTRANA MD Nov 23, 2016 12:53
[2016-11-23] MEDS ORDERED: DIATR MEGLU/DIATRIZOATE SODIUM 120 ML BTL ONE (12:57)
--- NOTE | 2016-11-23 14:21 | CONS ---
Date/Time of Note Date/Time of Note DATE: 11/23/16 TIME: 14:19 Assessment/Plan Assessment/Plan Additional Assessment/Plan 1. Acute kidney injury secondary to severe prerenal azotemia and ischemic acute tubular necrosis from a bowel obstruction. 2. Severe hypernatremia secondary to a large free water deficit. 3. Hypokalemia. 4. Elevated troponin secondary to possible demand ischemia. 5. Sepsis of unknown etiology. 6. Possible small-bowel obstruction from fecal impaction. 7. History of ventilator-dependent respiratory failure secondary to anoxic encephalopathy from cardiac arrest, status post tracheostomy. 8. History of dysphagia, status post G-tube placement. 9. History of seizure disorder. 10. History of schizophrenia. 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 PLAN: continue IVF D5W with KCL at current rate K replacement Cr normal, Na improving will follow up Consultation Date/Type/Reason Admit Date/Time Initial Consult Date 11/21/16 Type of Consultation: NEPHROLOGY Referring Provider: RICHARD GIRARD MD Exam/Review of Systems Vital Signs Vitals Vital Signs Date Time Temp Pulse Resp B/P Pulse Ox O2 Delivery O2 Flow Rate FiO2 11/23/16 13:53 98.4 68 20 114/98 100 Mechanical Ventilator 11/23/16 11:35 40 Intake and Output 11/22/16 11/22/16 11/23/16 15:00 23:00 07:00 Intake Total 350 ml 1100 ml Output Total 810 ml 275 ml 1200 ml Balance -810 ml 75 ml -100 ml Exam GENERAL: Nonverbal + tracheostomy LUNGS: Bilateral decreased breath sounds with minimal basilar crackles. HEART: S1, S2, tachycardia, no murmur. ABDOMEN: Soft. G-tube is in place. EXTREMITIES: No clubbing, cyanosis, edema. The patient has mild to 1+ pitting edema of the lower extremities. NEUROLOGICAL: Uncooperative for exam. PSYCHIATRIC: Uncooperative for exam. Results Result Diagram: 11/23/16 1038 11/23/16 1038 Results 24 hrs Laboratory Tests Test 11/23/16 01:00 11/23/16 10:38 Vancomycin Level Trough 10.9 White Blood Count 7.8 # Red Blood Count 3.49 L Hemoglobin 9.5 L Hematocrit 30.7 L Mean Corpuscular Volume 88.0 Mean Corpuscular Hemoglobin 27.2 L Mean Corpuscular Hemoglobin Concent 30.9 L Red Cell Distribution Width 13.9 Platelet Count 190 # Mean Platelet Volume 10.6 H Neutrophils % 70.8 Lymphocytes % 21.0 Monocytes % 4.8 Eosinophils % 2.8 Basophils % 0.3 Nucleated Red Blood Cells % 0.0 Neutrophils # 5.5 Lymphocytes # 1.6 Monocytes # 0.4 Eosinophils # 0.2 Basophils # 0.0 Nucleated Red Blood Cells # 0.0 Sodium Level 141 Potassium Level 3.6 Chloride Level 109 # Carbon Dioxide Level 22 Anion Gap 14 Blood Urea Nitrogen 9 # Creatinine 0.51 L Glucose Level 96 # Calcium Level 8.7 Total Bilirubin 0.3 Direct Bilirubin 0.00 Indirect Bilirubin 0.3 Aspartate Amino Transf (AST/SGOT) 38 Alanine Aminotransferase (ALT/SGPT) 37 Alkaline Phosphatase 56 Total Protein 6.3 Albumin 3.4 Globulin 2.90 Albumin/Globulin Ratio 1.17 Medications Medications Current Medications Acetaminophen (Tylenol Liquid) 650 mg Q6H PRN PO PAIN LEVEL 1-3 OR FEVER Last administered on 11/21/16 16:32; Admin Dose 650 MG; Start 11/21/16 at 03:00 Famotidine (Pepcid Iv) 20 mg Q12 IV Last administered on 11/23/16 09:11; Admin Dose 20 MG; Start 11/21/16 at 09:00 Ondansetron HCl (Zofran Inj) 4 mg Q6H PRN IV NAUSEA AND/OR VOMITING; Start at 13:00 Morphine Sulfate (morphine) 2 mg Q4H PRN IV PAIN LEVEL 7-10; Start 11/21/16 at 13:00 Pantoprazole (Protonix Iv) 40 mg DAILY@06 IV Last administered on 11/23/16 05: 43; Admin Dose 40 MG; Start 11/22/16 at 06:00 Enoxaparin Sodium 30 mg 30 mg DAILY SC Last administered on 11/22/16 09:43; Admin Dose 30 MG; Start 11/22/16 at 09:00 Vancomycin HCl 250 ml @ 125 mls/hr Q12H IVPB Last administered on 11/23/16 03 :10; Admin Dose 125 MLS/HR; Start 11/21/16 at 14:30 Potassium Chloride/Dextrose 1,000 ml @ 80 mls/hr [id number] IV Last administered on 11/23/16 02:29; Admin Dose 80 MLS/HR; Start 11/21/16 at 16:00 Piperacillin Sod/ Tazobactam Sod (Zosyn 3.375gm/ 100 ml (Pmx)) 100 ml @ 100 mls /hr Q6 IVPB Last administered on 11/23/16 13:00; Admin Dose 100 MLS/HR; Start 11/21/16 at 20:00 Aspirin (Aspirin) 81 mg DAILY PO Last administered on 11/23/16 09:11; Admin Dose 81 MG; Start 11/22/16 at 09:00 Metoprolol Tartrate (Lopressor) 25 mg BID PO Last administered on 11/22/16 21: 21; Admin Dose 25 MG; Start 11/21/16 at 21:00 UMM MANNING MD Nov 23, 2016 14:21
--- NOTE | 2016-11-23 14:37 | RADRPT ---
AMENDMENT: 11/23/2016 2:38:02 PM Abran Chavez M.D Correction: Technique: 2 portable AP supine abdominal x-rays were performed following the injectio n of Gastrografin into the gastrostomy tube. No fluoroscopy was utilized. PROCEDURE: XR Abdomen. CLINICAL INDICATION: Gastrostomy tube placement TECHNIQUE: 2 portable AP supine abdominal x-rays were performed following the injection of Gastrog rafin into the gastrostomy tube. No fluoroscopy was visualized. COMPARISON: CT abdomen and pelvis of 11/21/2016 FINDINGS: The injected contrast is seen in the stomach, duodenum and very proximal jejunum. The patient 's co ntracted hand is projected over the right upper quadrant of the abdomen which limits evaluation for the possibility of contrast outside of the gastrointestinal tract. Lead projected over left lung bas e and diaphragm. Nonspecific dilatation of bowel in the lower central abdomen. Osteoarthrosis at hi ps. Flexion of the left hip is again apparent. IMPRESSION: The injected contrast is seen in the stomach, duodenum and very proximal jejunum. The patient's con tracted hand is projected over the right upper quadrant of the abdomen which limits evaluation for t he possibility of contrast outside of the gastrointestinal tract. CT abdomen is recommended for fur ther evaluation. Discussed with Dr. Garza at 02:31 p.m. on 11/23/2016. RPTAT: HJES .Abran Chavez MD, MD Date Time Electronically viewed and signed by .Abran Chavez MD, on 11/23/2016 14:38 .S/
--- NOTE | 2016-11-23 15:12 | PN ---
Date/Time of Note Date/Time of Note DATE: 11/23/16 TIME: 15:08 Assessment/Plan [facility]Cathe[facility] Yes Assessment/Plan Assessment/Plan [facility] Progress Note Date of Service: 11/23/16 Today's Impression & Plan: Overall improved. No indication for acute surgical intervention. With above assessment, I've recommended the following for today: 1. Cont current management 2. Clarification of goals of treatment and code status 3. Understand better bowel issues (if any, including perianal care and frequency of constipation) and discuss risks vs. benefits of elective colostomy placement. Thank you again for your great care of this very pleasant patient and wonderful family. If there are any questions, please feel free to call me at [phone]. TOTAL VISIT TIME: 20 minutes of which more than half was spent in [id number] discussion with the patient, possibly including family, as well as coordination of care between multiple physicians and providers. Disclaimer: Inadvertent spelling or grammatical errors are likely due to EHR/ dictation software use and do not reflect on the overall quality of patient care. 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 COMORBIDITIES: 1. Status post anoxic encephalopathy after cardiac arrest from suicide attempt in 2009. 2. Ventilator-dependent respiratory failure. 3. Dysphagia with G-tube. 4. Seizure disorder. 5. History of schizophrenia. 6. Status post tracheostomy. 7. Status post percutaneous endoscopic gastrostomy tube placement. 8. Institutionally-bound and vegetative state. Subjective: No major events or complaints per report; + bowel activity; patient non- communicative Objective: Vitals: See below Exam: GENERAL: On exam, the patient was laying in bed and appeared to be comfortable and in no acute distress. ABDOMEN: Soft, nontender and nondistended. There are no peritoneal signs or guarding. SKIN: Skin appears to be pink and feels warm to touch. NEUROLOGIC: Patient appears to be awake and alert, and does not follow commands appropriately. Exam/Review of Systems Vital Signs Vitals Vital Signs Date Time Temp Pulse Resp B/P Pulse Ox O2 Delivery O2 Flow Rate FiO2 11/23/16 14:51 98.5 75 20 104/73 100 Mechanical Ventilator 11/23/16 11:35 40 Intake and Output 11/22/16 11/22/16 11/23/16 14:59 22:59 06:59 Intake Total 350 ml 1100 ml Output Total 660 ml 425 ml 1200 ml Balance -660 ml -75 ml -100 ml Results Result Diagram: 11/23/16 1038 11/23/16 [facility] GRETEL GUEVARA M.D. Nov 23, 2016 15:12
--- NOTE | 2016-11-23 15:19 | CONS ---
DATE OF ADMISSION: 11/20/2016 DATE OF CONSULTATION: 11/21/2016 REQUESTING PHYSICIAN: Dr. Courtney Thank you for asking me to see Mr. Maher in GI consultation. HISTORY OF PRESENT ILLNESS: As you know, the patient is a 46-year-old [place] gentleman who was tr ansferred to the emergency room at [facility] because of abdominal distention. Th e patient is in a vegetative status status post tracheostomy and status post PEG placement because o f the ____. No history of vomiting, no history of bowel movement. As mentioned earlier on, he has been having anoxic encephalopathy. He had a suicidal attempt in 2009. REVIEW OF SYSTEM: Positive for schizophrenia and sepsis. PAST SURGICAL HISTORY: Includes tracheostomy and PEG placement. MEDICATIONS PRIOR TO THE ADMISSION: Include 1. Reglan. 2. Vitamins. 3. Nexium. 4. Milk of magnesia p.r.n. 5. Keppra. 6. Fleet's enema. 7. Ferrous sulfate. 8. Peridex. 9. Albuterol. PHYSICAL EXAMINATION: GENERAL: The patient is a 45-year-old [place] male who, at the time of consultation, appears aphas ic. He is unable to communicate because he is in a vegetative status. VITAL SIGNS: Temperature 98.1. On admission, temperature also was 98.6, blood pressure 118/80, pul se is 88. CARDIOVASCULAR: Normal heart sounds. RESPIRATORY: Normal breath sounds. ABDOMEN: Showed evidence of a distended abdomen. G-tube is noted in place. IMAGING DATA: The CAT scan of the abdomen on admission showed evidence of moderate volume of stool in the colon. The proximal colon is dilated. Small bowel loops are also dilated. There is a horse shoe kidney with stones. The left lower lung base was noted. LABORATORY DATA: On admission, WBC count 13,400, hemoglobin 16.6, platelets 755,000. Potassium is 3.6. Sodium is 141, carbon dioxide 22, bilirubin 0.3, AST 38, ALT 37, alkaline phosphatase 56. CLINICAL IMPRESSION: The patient seems to have bowel obstruction, probably due to fecal impaction. I doubt mechanical obstruction due to adhesions or due to tumor. He is status post G-tube placement and tracheostomy. He has severe leukocytosis. Rule out pneumoni a. Rule out other sources of infection. PLAN: At this time, recommend nasogastric suction and recommend Fleets enema. I will be happy to follow this patient with you. Dictated By: LUCIE BEAR/CY Conf#: [id number] DID#: [id number] CC: RICHARD COURTNEY MD;*EndCC*
--- NOTE | 2016-11-23 17:12 | RADRPT ---
PROCEDURE: CT Abdomen and Pelvis without contrast CLINICAL INDICATION: Evaluate for G tube placement TECHNIQUE: Transaxial images were obtained through the abdomen and pelvis on a multi-slice scanner without the intravenous contrast administration. Oral contrast had previously been given. Sagittal and coronal re-formations were subsequently reconstructed. One or more of the following dose reduction techniques were used: - Automated exposure control. - Adjustment of the mA and/or kV according to patient size. - Use of iterative reconstruction technique. Radiation dose: CTDIvol = 21.27 mGy; DLP = 1313.11 mGy-cm. COMPARISON: Comparison is 11/21/2016 FINDINGS: Lung bases: Improving subsegmental atelectasis is seen at the lung bases and in near resolution of t he pericardial effusion. Liver: The liver is enlarged but appears intact. Gallbladder: The gallbladder is distended and there appears to be a single small gallstone present. The wall of the gallbladder is not thickened. Bile ducts: The intra and extrahepatic bile ducts are normal in caliber. Pancreas: Appears normal with no mass or inflammation evident. Spleen: The spleen is mildly enlarged. Adrenals: Normal with no mass identified. 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 The ureters are normal in caliber and no ureteroliths are gus ntified. A Charles catheter has been placed into a poorly distended bladder and intraluminal air is se en which is likely iatrogenic. Reproductive organs: Unremarkable. Stomach and bowel: A gastrostomy tube is seen in place with the balloon seen within the lumen of the antrum of the stomach. There is a small hiatal hernia. The bowel gas pattern reflects an ileus wit h air fluid distended segments of large and small bowel with adynamic appearing air fluid levels. T here is no evidence of bowel obstruction. Colon is seen interposed between the diaphragm and right l obe of the liver. Appendix: A normal vermiform appendix is evident. Peritoneum: There is a trace of free fluid at the inferior tip of the liver but no free air is ident ified. Aorta: There is atherosclerotic vascular calcification but no abdominal aortic aneurysm is evident. IVC: Unremarkable. Lymph nodes: No pathologically enlarged nodes are identified. Osseous structures: The osseous elements appear intact. IMPRESSION: 1. Since the previous CT of 11/21/2016, the gastrostomy tube is more clearly seen to the intralumina l within the antrum of the stomach. There is again a small hiatal hernia, the stomach is moderately distended with a air and the large and small bowel is quite distended with fluid and air demonstrat ing a dynamic air fluid levels most compatible with ileus. A normal vermiform appendix is evident. 2. 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 A Fole y catheter has been placed and the bladder since the previous study and there is intraluminal air. 3. There is a trace amount of free fluid at the tip of the liver but no free air is identified. 4. Persistent hepatomegaly and mild splenomegaly with no focal lesion. 5. Persistent subsegmental atelectasis involving both lower lobes. 6. Near resolution of the small pericardial effusion. 7. Atherosclerotic vascular calcification is again noted. Physician Aminta Date Time Electronically viewed and signed by Physician Aminta on 11/23/2016 17:12 /
[2016-11-24] VITALS (19 sets, daily range): BP systolic 109–119; BP diastolic 73–81; PULSE 69–75; RESP 16–26; TEMP 98.5; Ht 152.4 cm; Wt 76.6 kg
[2016-11-24] MEDS: PIPER-TAZO 3.375 GM IV (PMX) 100 ML IVPB SCH ×4 (01:00→19:04)
--- NOTE | 2016-11-24 02:55 | EN ---
Date/Time of Note Date/Time of Note DATE: 11/24/16 TIME: 02:55 ER Progress Note Observation Note: Time: 4For hours Family Hx: No Hypertension Evaluation: Multiple exams showed improving symptoms and no evidence of [ XOXOXO] CALIXTO WEBSTER Nov 24, 2016 02:55
[2016-11-24] MEDS: VANCOMYCIN 1 GM in NS 250 ML IVPB SCH ×2 (05:16→16:42)
[2016-11-24 05:58] LABS: ADD SCAN DIFF NO
[2016-11-24] MEDS: PANTOPRAZOLE 40 MG INJ IV SCH (06:00)
[2016-11-24 06:40] LABS: CALCIUM 8.9 mg/dl (8.4-10.2); CREATININE 0.59 mg/dl (0.61-1.24)
[2016-11-24 06:44] LABS: BASOPHILS % 0.3 % (0.0-2.0); EOSINOPHILS # 0.2 10^3/ul (0.0-0.5); EOSINOPHILS % 2.8 % (0.0-7.0); HEMATOCRIT 33.5 % (42.0-52.0); HEMOGLOBIN 10.5 g/dl (14.0-18.0); LYMPHOCYTES # 1.1 10^3/ul (0.8-2.9); LYMPHOCYTES % 17.4 % (15.0-51.0); MEAN CORPUSCULAR HEMOGLOBIN 27.1 pg (29.0-33.0); MEAN CORPUSCULAR HGB CONC 31.3 g/dl (32.0-37.0); MEAN CORPUSCULAR VOLUME 86.6 fl (82.0-101.0); MEAN PLATELET VOLUME 12.2 fl (7.4-10.4); MONOCYTE # 0.3 10^3/ul (0.3-0.9); MONOCYTES % 5.3 % (0.0-11.0); NEUTROPHIL # 4.7 10^3/ul (1.6-7.5); NEUTROPHILS % 73.6 % (39.0-77.0); RED BLOOD COUNT 3.87 10^6/ul (4.70-6.10); RED CELL DISTRIBUTION WIDTH 14.1 % (11.5-14.5); WHITE BLOOD COUNT 6.4 10^3/ul (4.8-10.8)
[2016-11-24 06:59] LABS: PLATELET COUNT 141 10^3/UL (140-415)
[2016-11-24] MEDS: D5W + KCL 20 MEQ 1,000 ML IV SCH ×2 (07:15→18:36)
[2016-11-24] MEDS: METOPROLOL 25 MG TAB PO SCH ×2 (08:49→21:00)
[2016-11-24] MEDS: FAMOTIDINE 20 MG INJ IV SCH ×2 (08:49→21:45)
[2016-11-24] MEDS: ASPIRIN 81 MG TAB PO SCH ×2 (08:49→09:00)
[2016-11-24] MEDS: ENOXAPARIN 30 MG/0.3 ML SYG SC SCH (08:53)
--- NOTE | 2016-11-24 13:02 | CONS ---
Date/Time of Note Date/Time of Note DATE: 11/24/16 TIME: 12:59 Assessment/Plan Assessment/Plan Chief Complaint/Hosp Course IMPRESSION: 1. Positive troponin in the setting of high fevers and tachycardia, now trending negative, likely demand event type 2 infarct. NL EF by echo this admit 2. Abnormal electrocardiogram, with nonspecific ST-T and T-wave abnormalities. 3. Supraventricular tachycardia, possibly sinus tachycardia in the setting of fevers versus atrial flutter 4. Hypotension-overall improved but marginal. 5. Fevers. 6. Anoxic encephalopathy. 7. Chronic respiratory failure, status post tracheostomy. 8. Hypernatremia-improved 9. Hypokalemia.-improved 10. Anemia. 11. Hematuria. Recc: -Tele -Continue low dose BB as tolerated only -Continue asa -Follow volume status closely -Contineu abx's and f/u cx data Problems: Consultation Date/Type/Reason Admit Date/Time Nov 21, 2016 at 02:41 Initial Consult Date 11/21/16 Type of Consultation: Cardiology Reason for Consultation positive troponin Referring Provider: RICHARD GIRARD MD Exam/Review of Systems Vital Signs Vitals Vital Signs Date Time Temp Pulse Resp B/P Pulse Ox O2 Delivery O2 Flow Rate FiO2 11/24/16 11:39 98.8 71 17 111/73 94 11/24/16 07:55 Mechanical Ventilator 11/24/16 07:00 10.0 11/24/16 05:15 40 Intake and Output 11/23/16 11/23/16 11/24/16 15:00 23:00 07:00 Intake Total 100 ml 1350 ml Output Total 690 ml 1500 ml Balance -590 ml 1350 ml -1500 ml Exam Review of Systems: CONSTITUTIONAL: No fevers, chills. PULMONARY: trach CARDIOVASCULAR: No chest pain/palpitations GASTROINTESTINAL: G-tube GENITOURINARY: No hematuria/dysuria. MUSCULOSKELETAL: No myagias/arthalgias. PSYCHIATRIC: The patient denies depression. NEUROLOGIC: encephalopathic Constitutional: other (encephalopathic) Head: normocephalic Neck: other (trached) Respiratory: diminished breath sounds (at bases/B) Cardiovascular: regular rate and rhythm Gastrointestinal: non-tender, soft Musculoskeletal: other (contracted) Extremities: edema (trace) Neurological: unresponsive Results Result Diagram: 11/24/16 0520 11/24/16 0520 Results 24 hrs Laboratory Tests Test 11/24/16 05:20 White Blood Count 6.4 Red Blood Count 3.87 L Hemoglobin 10.5 L Hematocrit 33.5 L Mean Corpuscular Volume 86.6 Mean Corpuscular Hemoglobin 27.1 L Mean Corpuscular Hemoglobin Concent 31.3 L Red Cell Distribution Width 14.1 Platelet Count 141 # Mean Platelet Volume 12.2 H Neutrophils % 73.6 Lymphocytes % 17.4 Monocytes % 5.3 Eosinophils % 2.8 Basophils % 0.3 Nucleated Red Blood Cells % 0.0 Neutrophils # 4.7 Lymphocytes # 1.1 Monocytes # 0.3 Eosinophils # 0.2 Basophils # 0.0 Nucleated Red Blood Cells # 0.0 Sodium Level 141 Potassium Level 4.0 Chloride Level 113 H Carbon Dioxide Level 20 L Anion Gap 12 Blood Urea Nitrogen 8 Creatinine 0.59 L Glucose Level 105 Calcium Level 8.9 Medications Medications Current Medications Acetaminophen (Tylenol Liquid) 650 mg Q6H PRN PO PAIN LEVEL 1-3 OR FEVER Last administered on 11/21/16 16:32; Admin Dose 650 MG; Start 11/21/16 at 03:00 Famotidine (Pepcid Iv) 20 mg Q12 IV Last administered on 11/24/16 08:49; Admin Dose 20 MG; Start 11/21/16 at 09:00 Ondansetron HCl (Zofran Inj) 4 mg Q6H PRN IV NAUSEA AND/OR VOMITING; Start at 13:00 Morphine Sulfate (morphine) 2 mg Q4H PRN IV PAIN LEVEL 7-10; Start 11/21/16 at 13:00 Pantoprazole (Protonix Iv) 40 mg DAILY@06 IV Last administered on 11/24/16 06: 00; Admin Dose 40 MG; Start 11/22/16 at 06:00 Enoxaparin Sodium 30 mg 30 mg DAILY SC Last administered on 11/24/16 08:53; Admin Dose 30 MG; Start 11/22/16 at 09:00 Potassium Chloride/Dextrose 1,000 ml @ 80 mls/hr [id number] IV Last administered on 11/24/16 07:15; Admin Dose 80 MLS/HR; Start 11/21/16 at 16:00 Piperacillin Sod/ Tazobactam Sod (Zosyn 3.375gm/ 100 ml (Pmx)) 100 ml @ 100 mls /hr Q6 IVPB Last administered on 11/24/16 12:42; Admin Dose 100 MLS/HR; Start 11/21/16 at 20:00 Aspirin (Aspirin) 81 mg DAILY PO Last administered on 11/24/16 08:49; Admin Dose 81 MG; Start 11/22/16 at 09:00 Metoprolol Tartrate 25 mg 25 mg BID PO Last administered on 11/22/16 21:21; Admin Dose 25 MG; Start 11/21/16 at 21:00 Vancomycin HCl (Vancocin) 250 ml @ 125 mls/hr Q12H IVPB ; Start 11/24/16 at 17: 00 ELOINA MISHRA Nov 24, 2016 13:02
--- NOTE | 2016-11-24 14:26 | PN ---
Date/Time of Note Date/Time of Note DATE: 11/24/16 TIME: 14:13 Assessment/Plan VTE Prophylaxis VTE Prophylaxis Intervention: SCD's Lines/Catheters [facility] Central Line Central line still needed: Yes Urinary Cath still in place: Yes Reason Cath still needed: urinary retention Assessment/Plan Chief Complaint/Hosp Course ASSESSMENT AND PLAN: 1. Sepsis of unknown etiology, with shock, resolving, continue broad-spectrum antibiotics. Dr. Matias is following in infection disease consultation. 2. Possible small-bowel obstruction vs ileus. Dr. Murcia is following in general surgery consultation. Dr. Walton is following in gastroenterology consultation 3. Acute kidney injury with electrolyte imbalances. Continue IV fluids. Monitor electrolytes. Dr. Aceves is following in nephrology consultation. 4. Elevated troponin. Continue to monitor cardiac enzymes q. [address] Flor is following in cardiology consultation. 5. Ventilator-dependent respiratory failure. 6. Dysphagia with G-tube. 7. Seizure disorder. Continue Keppra. 8. Anoxic encephalopathy, status post cardiac arrest. 9. Schizophrenia by history. Continue Lovenox for deep venous thrombosis prophylaxis and Pepcid for peptic ulcer disease prophylaxis. Further recommendations based on clinical course. Plan of care discussed with Dr. Courtney. Problems: Exam/Review of Systems Vital Signs Vitals Vital Signs Date Time Temp Pulse Resp B/P Pulse Ox O2 Delivery O2 Flow Rate FiO2 11/24/16 12:16 69 11/24/16 11:39 98.8 17 111/73 94 11/24/16 07:55 Mechanical Ventilator 11/24/16 07:00 10.0 11/24/16 05:15 40 Intake and Output 11/23/16 11/23/16 11/24/16 15:00 23:00 07:00 Intake Total 100 ml 1350 ml Output Total 690 ml 1500 ml Balance -590 ml 1350 ml -1500 ml Exam Constitutional: non-verbal Head: normocephalic Neck: other (Tracheostomy), supple Cardiovascular: nl pulses, regular rate and rhythm Gastrointestinal: non-tender, soft Extremities: normal pulses, other (Contracted) Results Result Diagram: 11/24/16 0520 11/24/16 0520 Results 24 hrs Laboratory Tests Test 11/24/16 05:20 White Blood Count 6.4 Red Blood Count 3.87 L Hemoglobin 10.5 L Hematocrit 33.5 L Mean Corpuscular Volume 86.6 Mean Corpuscular Hemoglobin 27.1 L Mean Corpuscular Hemoglobin Concent 31.3 L Red Cell Distribution Width 14.1 Platelet Count 141 # Mean Platelet Volume 12.2 H Neutrophils % 73.6 Lymphocytes % 17.4 Monocytes % 5.3 Eosinophils % 2.8 Basophils % 0.3 Nucleated Red Blood Cells % 0.0 Neutrophils # 4.7 Lymphocytes # 1.1 Monocytes # 0.3 Eosinophils # 0.2 Basophils # 0.0 Nucleated Red Blood Cells # 0.0 Sodium Level 141 Potassium Level 4.0 Chloride Level 113 H Carbon Dioxide Level 20 L Anion Gap 12 Blood Urea Nitrogen 8 Creatinine 0.59 L Glucose Level 105 Calcium Level 8.9 Medications Medications Current Medications Acetaminophen (Tylenol Liquid) 650 mg Q6H PRN PO PAIN LEVEL 1-3 OR FEVER Last administered on 11/21/16 16:32; Admin Dose 650 MG; Start 11/21/16 at 03:00 Famotidine (Pepcid Iv) 20 mg Q12 IV Last administered on 11/24/16 08:49; Admin Dose 20 MG; Start 11/21/16 at 09:00 Ondansetron HCl (Zofran Inj) 4 mg Q6H PRN IV NAUSEA AND/OR VOMITING; Start at 13:00 Morphine Sulfate (morphine) 2 mg Q4H PRN IV PAIN LEVEL 7-10; Start 11/21/16 at 13:00 Pantoprazole (Protonix Iv) 40 mg DAILY@06 IV Last administered on 11/24/16 06: 00; Admin Dose 40 MG; Start 11/22/16 at 06:00 Enoxaparin Sodium 30 mg 30 mg DAILY SC Last administered on 11/24/16 08:53; Admin Dose 30 MG; Start 11/22/16 at 09:00 Potassium Chloride/Dextrose 1,000 ml @ 80 mls/hr [id number] IV Last administered on 11/24/16 07:15; Admin Dose 80 MLS/HR; Start 11/21/16 at 16:00 Piperacillin Sod/ Tazobactam Sod (Zosyn 3.375gm/ 100 ml (Pmx)) 100 ml @ 100 mls /hr Q6 IVPB Last administered on 11/24/16 12:42; Admin Dose 100 MLS/HR; Start 11/21/16 at 20:00 Aspirin (Aspirin) 81 mg DAILY PO Last administered on 11/24/16 08:49; Admin Dose 81 MG; Start 11/22/16 at 09:00 Metoprolol Tartrate 25 mg 25 mg BID PO Last administered on 11/22/16 21:21; Admin Dose 25 MG; Start 11/21/16 at 21:00 Vancomycin HCl (Vancocin) 250 ml @ 125 mls/hr Q12H IVPB ; Start 11/24/16 at 17: 00 JH WISDOM Nov 24, 2016 14:25
--- NOTE | 2016-11-24 14:38 | RADRPT ---
PROCEDURE: CHEST 1VW CLINICAL INDICATION: Nasogastric tube TECHNIQUE: Single frontal view of the chest was obtained COMPARISON: 11/21/2016 FINDINGS: Interval placement of nasogastric tube with the tip in the stomach. Stable endotracheal tube and ri ght neck central venous catheter. The cardiac size is normal. Mild atherosclerotic calcifications are demonstrated. There is my pulmonary vascular congestion. Bibasilar atelectasis. The lungs are otherwise clear. No consolidation, effusion, or pneumothorax. Mild degenerative changes of the visualized osseous structures are visualized. IMPRESSION: 1. Tip of the nasogastric tube is seen in the stomach. 2. Atherosclerosis with mild pulmonary vascular congestion. RPTAT:PP .Minor Michel MD, Date Time Electronically viewed and signed by .Minor Michel MD, on 11/24/2016 14:38 .V/
--- NOTE | 2016-11-24 14:45 | PN ---
DATE: 11/24/2016 INFECTIOUS DISEASE PROGRESS NOTE SUBJECTIVE: No acute changes. No fevers. The patient is lying comfortably in bed. He is noncommu nicative. WBC today 6.4, platelets 141, no shift, no bands. BUN 8, creatinine 0.59. MICROBIOLOGY: Blood cultures remain negative. Sputum culture grew multiple bacteria. INDWELLINGS: Trach, PEG, Charles. ANTIMICROBIALS: The patient is on 1. Vancomycin. 2. Zosyn. OBJECTIVE: GENERAL: This is a chronically ill-appearing, middle-aged Khmer man who is in persistent vegetat elijah state. HEENT: Head atraumatic, normocephalic. Sclerae anicteric. Buccal mucosa dry. NECK: Supple. Tracheostomy present. CHEST: Rise symmetrical. Breath sounds diminished to bases. HEART: S1, S2. ABDOMEN: Soft. G-tube site clear. EXTREMITIES: Contractured without cyanosis. ASSESSMENT: 1. Sepsis, resolving with leukocytosis, tachycardia, and high fevers on admission. 2. Small bowel obstruction. 3. Severe fecal impaction. 4. Chronic respiratory failure with sputum culture growing Klebsiella extended-spectrum beta-lactam ase, Proteus, and streptococcal species. 5. Persistent vegetative state. 6. History of seizure disorder. PLAN: The patient remains stable. He is being followed by surgical and gastroenterology team. He is also seen by cardiology for positive troponins and tachycardia. We will continue him on current antimicrobials as Klebsiella extended-spectrum beta-lactamase was susceptible to Zosyn and given the fact that the patient has a history of seizures. Dictated By: YURY YOON MANAGER MAIL for [employer]CY Conf#: [id number] DID#: [id number]
--- NOTE | 2016-11-24 15:30 | CONS ---
Date/Time of Note Date/Time of Note DATE: 11/24/16 TIME: 15:28 Assessment/Plan Assessment/Plan Additional Assessment/Plan Ventilator setting; AC of 16, tidal volume 450, PEEP of 5, 40% FiO2. Assessment recommendations; 1. Patient admitted for sepsis with marked improvement in leukocytosis. 2. Fecal impaction causing bowel obstruction with interval improvement as well. 3. Chronic respiratory failure, 4. Advanced post anoxic dementia. 5. Chronic respiratory failure. Continue current treatment. [facility] back to [facility]. Consultation Date/Type/Reason Admit Date/Time Nov 21, 2016 at 02:41 Initial Consult Date 11/21/16 Type of Consultation: Pulmonary Referring Provider: RICHARD GIRARD MD 24 HR Interval Summary Free Text/Dictation Patient condition stable. Remains unresponsive. Has remained hemodynamically stable. General exam; middle-aged male, on ventilator via tracheostomy unresponsive, currently in no distress. Exam/Review of Systems Vital Signs Vitals Vital Signs Date Time Temp Pulse Resp B/P Pulse Ox O2 Delivery O2 Flow Rate FiO2 11/24/16 12:16 69 11/24/16 11:39 98.8 17 111/73 94 11/24/16 08:00 40 11/24/16 07:55 Mechanical Ventilator 11/24/16 07:00 10.0 Intake and Output 11/23/16 11/23/16 11/24/16 15:00 23:00 07:00 Intake Total 100 ml 1350 ml Output Total 690 ml 1500 ml Balance -590 ml 1350 ml -1500 ml Exam HEENT exam; supple neck, no JVD. No lymphadenopathy. Midline trachea. No thyromegaly. Patient multiple carious teeth. Tracheostomy in place. Chest examination; clear to auscultation. S1-S2 audible, no murmurs. Regular rhythm. Abdomen examination; soft, protuberant. G-tube in place. Bowel sounds audible. Extremity examination; no peripheral edema. Patient severe contractures involving all 4 extremities. [employer] examination; patient remains unresponsive. Results Result Diagram: 11/24/16 0520 11/24/16 0520 Results 24 hrs Laboratory Tests Test 11/24/16 05:20 White Blood Count 6.4 Red Blood Count 3.87 L Hemoglobin 10.5 L Hematocrit 33.5 L Mean Corpuscular Volume 86.6 Mean Corpuscular Hemoglobin 27.1 L Mean Corpuscular Hemoglobin Concent 31.3 L Red Cell Distribution Width 14.1 Platelet Count 141 # Mean Platelet Volume 12.2 H Neutrophils % 73.6 Lymphocytes % 17.4 Monocytes % 5.3 Eosinophils % 2.8 Basophils % 0.3 Nucleated Red Blood Cells % 0.0 Neutrophils # 4.7 Lymphocytes # 1.1 Monocytes # 0.3 Eosinophils # 0.2 Basophils # 0.0 Nucleated Red Blood Cells # 0.0 Sodium Level 141 Potassium Level 4.0 Chloride Level 113 H Carbon Dioxide Level 20 L Anion Gap 12 Blood Urea Nitrogen 8 Creatinine 0.59 L Glucose Level 105 Calcium Level 8.9 Medications Medications Current Medications Acetaminophen (Tylenol Liquid) 650 mg Q6H PRN PO PAIN LEVEL 1-3 OR FEVER Last administered on 11/21/16 16:32; Admin Dose 650 MG; Start 11/21/16 at 03:00 Famotidine (Pepcid Iv) 20 mg Q12 IV Last administered on 11/24/16 08:49; Admin Dose 20 MG; Start 11/21/16 at 09:00 Ondansetron HCl (Zofran Inj) 4 mg Q6H PRN IV NAUSEA AND/OR VOMITING; Start at 13:00 Morphine Sulfate (morphine) 2 mg Q4H PRN IV PAIN LEVEL 7-10; Start 11/21/16 at 13:00 Pantoprazole (Protonix Iv) 40 mg DAILY@06 IV Last administered on 11/24/16 06: 00; Admin Dose 40 MG; Start 11/22/16 at 06:00 Enoxaparin Sodium 30 mg 30 mg DAILY SC Last administered on 11/24/16 08:53; Admin Dose 30 MG; Start 11/22/16 at 09:00 Potassium Chloride/Dextrose 1,000 ml @ 80 mls/hr [id number] IV Last administered on 11/24/16 07:15; Admin Dose 80 MLS/HR; Start 11/21/16 at 16:00 Piperacillin Sod/ Tazobactam Sod (Zosyn 3.375gm/ 100 ml (Pmx)) 100 ml @ 100 mls /hr Q6 IVPB Last administered on 11/24/16 12:42; Admin Dose 100 MLS/HR; Start 11/21/16 at 20:00 Aspirin (Aspirin) 81 mg DAILY PO Last administered on 11/24/16 08:49; Admin Dose 81 MG; Start 11/22/16 at 09:00 Metoprolol Tartrate 25 mg 25 mg BID PO Last administered on 11/22/16 21:21; Admin Dose 25 MG; Start 11/21/16 at 21:00 Vancomycin HCl (Vancocin) 250 ml @ 125 mls/hr Q12H IVPB ; Start 11/24/16 at 17: 00 MI JEFFERS 19, 2017 15:30
--- NOTE | 2016-11-24 18:06 | CONS ---
Date/Time of Note Date/Time of Note DATE: 11/24/16 TIME: 18:04 Assessment/Plan Assessment/Plan Additional Assessment/Plan 1. Acute kidney injury secondary to severe prerenal azotemia and ischemic acute tubular necrosis from a bowel obstruction. 2. Severe hypernatremia secondary to a large free water deficit. 3. Hypokalemia. 4. Elevated troponin secondary to possible demand ischemia. 5. Sepsis of unknown etiology. 6. Possible small-bowel obstruction from fecal impaction. 7. History of ventilator-dependent respiratory failure secondary to anoxic encephalopathy from cardiac arrest, status post tracheostomy. 8. History of dysphagia, status post G-tube placement. 9. History of seizure disorder. 10. History of schizophrenia. 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 PLAN: continue IVF D5W with KCL at current rate Cr normal, Na improving, K Normal nurse instructed call PMD to address nutrition, dietary consult will follow up Consultation Date/Type/Reason Admit Date/Time Nov 21, 2016 at 02:41 Initial Consult Date 11/21/16 Type of Consultation: NEPHROLOGY Referring Provider: RICHARD GIRARD MD Exam/Review of Systems Vital Signs Vitals Vital Signs Date Time Temp Pulse Resp B/P Pulse Ox O2 Delivery O2 Flow Rate FiO2 11/24/16 17:01 96 26 98 40 11/24/16 16:04 98.6 116/77 11/24/16 07:55 Mechanical Ventilator 11/24/16 07:00 10.0 Intake and Output 11/23/16 11/23/16 11/24/16 15:00 23:00 07:00 Intake Total 100 ml 1350 ml Output Total 690 ml 1500 ml Balance -590 ml 1350 ml -1500 ml Results Result Diagram: 11/24/16 0520 11/24/16 0520 Results 24 hrs Laboratory Tests Test 11/24/16 05:20 White Blood Count 6.4 Red Blood Count 3.87 L Hemoglobin 10.5 L Hematocrit 33.5 L Mean Corpuscular Volume 86.6 Mean Corpuscular Hemoglobin 27.1 L Mean Corpuscular Hemoglobin Concent 31.3 L Red Cell Distribution Width 14.1 Platelet Count 141 # Mean Platelet Volume 12.2 H Neutrophils % 73.6 Lymphocytes % 17.4 Monocytes % 5.3 Eosinophils % 2.8 Basophils % 0.3 Nucleated Red Blood Cells % 0.0 Neutrophils # 4.7 Lymphocytes # 1.1 Monocytes # 0.3 Eosinophils # 0.2 Basophils # 0.0 Nucleated Red Blood Cells # 0.0 Sodium Level 141 Potassium Level 4.0 Chloride Level 113 H Carbon Dioxide Level 20 L Anion Gap 12 Blood Urea Nitrogen 8 Creatinine 0.59 L Glucose Level 105 Calcium Level 8.9 Medications Medications Current Medications Acetaminophen (Tylenol Liquid) 650 mg Q6H PRN PO PAIN LEVEL 1-3 OR FEVER Last administered on 11/21/16 16:32; Admin Dose 650 MG; Start 11/21/16 at 03:00 Famotidine (Pepcid Iv) 20 mg Q12 IV Last administered on 11/24/16 08:49; Admin Dose 20 MG; Start 11/21/16 at 09:00 Ondansetron HCl (Zofran Inj) 4 mg Q6H PRN IV NAUSEA AND/OR VOMITING; Start at 13:00 Morphine Sulfate (morphine) 2 mg Q4H PRN IV PAIN LEVEL 7-10; Start 11/21/16 at 13:00 Pantoprazole (Protonix Iv) 40 mg DAILY@06 IV Last administered on 11/24/16 06: 00; Admin Dose 40 MG; Start 11/22/16 at 06:00 Enoxaparin Sodium 30 mg 30 mg DAILY SC Last administered on 11/24/16 08:53; Admin Dose 30 MG; Start 11/22/16 at 09:00 Potassium Chloride/Dextrose 1,000 ml @ 80 mls/hr [id number] IV Last administered on 11/24/16 07:15; Admin Dose 80 MLS/HR; Start 11/21/16 at 16:00 Piperacillin Sod/ Tazobactam Sod (Zosyn 3.375gm/ 100 ml (Pmx)) 100 ml @ 100 mls /hr Q6 IVPB Last administered on 11/24/16 12:42; Admin Dose 100 MLS/HR; Start 11/21/16 at 20:00 Aspirin (Aspirin) 81 mg DAILY PO Last administered on 11/24/16 08:49; Admin Dose 81 MG; Start 11/22/16 at 09:00 Metoprolol Tartrate 25 mg 25 mg BID PO Last administered on 11/22/16 21:21; Admin Dose 25 MG; Start 11/21/16 at 21:00 Vancomycin HCl (Vancocin) 250 ml @ 125 mls/hr Q12H IVPB Last administered on t 16:42; Admin Dose 125 MLS/HR; Start 11/24/16 at 17:00 UMM MANNING MD Nov 24, 2016 18:06
[2016-11-25] VITALS (24 sets, daily range): BP systolic 101–135; BP diastolic 73–86; PULSE 66–90; RESP 16–29
[2016-11-25] MEDS: D5W + KCL 20 MEQ 1,000 ML IV SCH ×2 (01:07→22:08)
[2016-11-25] MEDS: PIPER-TAZO 3.375 GM IV (PMX) 100 ML IVPB SCH ×5 (01:19→23:59)
[2016-11-25] MEDS: PANTOPRAZOLE 40 MG INJ IV SCH (06:11)
[2016-11-25] MEDS: VANCOMYCIN 1 GM in NS 250 ML IVPB SCH ×2 (06:12→16:37)
[2016-11-25 06:16] LABS: ADD SCAN DIFF NO
[2016-11-25 06:29] LABS: BASOPHILS % 0.4 % (0.0-2.0); EOSINOPHILS # 0.2 10^3/ul (0.0-0.5); EOSINOPHILS % 2.2 % (0.0-7.0); HEMATOCRIT 31.1 % (42.0-52.0); HEMOGLOBIN 9.5 g/dl (14.0-18.0); LYMPHOCYTES # 1.2 10^3/ul (0.8-2.9); LYMPHOCYTES % 14.6 % (15.0-51.0); MEAN CORPUSCULAR HEMOGLOBIN 26.7 pg (29.0-33.0); MEAN CORPUSCULAR HGB CONC 30.5 g/dl (32.0-37.0); MEAN CORPUSCULAR VOLUME 87.4 fl (82.0-101.0); MEAN PLATELET VOLUME 11.1 fl (7.4-10.4); MONOCYTE # 0.4 10^3/ul (0.3-0.9); MONOCYTES % 5.4 % (0.0-11.0); NEUTROPHILS % 76.5 % (39.0-77.0); PLATELET COUNT 221 10^3/UL (140-415); RED BLOOD COUNT 3.56 10^6/ul (4.70-6.10); RED CELL DISTRIBUTION WIDTH 14.4 % (11.5-14.5); WHITE BLOOD COUNT 7.9 10^3/ul (4.8-10.8)
[2016-11-25 06:54] LABS: CALCIUM 9.2 mg/dl (8.4-10.2); CREATININE 0.75 mg/dl (0.61-1.24); POTASSIUM 3.5 mmol/L (3.5-5.1)
[2016-11-25] MEDS: ASPIRIN 81 MG TAB PO SCH (08:08)
[2016-11-25] MEDS: METOPROLOL 25 MG TAB PO SCH ×2 (08:08→21:34)
[2016-11-25] MEDS: FAMOTIDINE 20 MG INJ IV SCH (08:34)
[2016-11-25] MEDS: ENOXAPARIN 30 MG/0.3 ML SYG SC SCH (08:37)
--- NOTE | 2016-11-25 09:17 | CONS ---
Date/Time of Note Date/Time of Note DATE: 11/25/16 TIME: 09:15 Assessment/Plan Assessment/Plan Additional Assessment/Plan 1. Positive troponin in the setting of high fevers and tachycardia, now trending negative, likely demand event type 2 infarct. NL EF by echo this admit - no intervention planned. 2. Abnormal electrocardiogram, with nonspecific ST-T and T-wave abnormalities- chronic. 3. Supraventricular tachycardia, possibly sinus tachycardia in the setting of fevers versus atrial flutter - now in sinus at 60s. 4. Hypotension-overall improved but marginal. 5. Fevers- Rx with anti-bx. 6. Anoxic encephalopathy. 7. Chronic respiratory failure, status post tracheostomy. 8. Hypernatremia-improved 9. Hypokalemia.-improved 10. Anemia. 11. Hematuria. Consultation Date/Type/Reason Admit Date/Time Nov 21, 2016 at 02:41 Initial Consult Date 11/21/16 Type of Consultation: NEPHROLOGY Referring Provider: RICHARD GIRARD MD 24 HR Interval Summary Free Text/Dictation NO acute events - BP in good range - will adjust Rx as needed. ROS: No fever, no chills, no nausea, no vomiting, no diarrhea/constipation No recent weight changes No chest pain, no PND, no orthopnea No dizziness, blurred vision No thirst, no heat or cold intolerance (per nurse - no fever) Exam/Review of Systems Vital Signs Vitals Vital Signs Date Time Temp Pulse Resp B/P Pulse Ox O2 Delivery O2 Flow Rate FiO2 11/25/16 09:04 68 11/25/16 07:44 98.3 16 131/78 99 11/25/16 07:18 40 11/24/16 07:55 Mechanical Ventilator 11/24/16 07:00 10.0 Intake and Output 11/24/16 11/24/16 11/25/16 15:00 23:00 07:00 Intake Total 100 ml 890 ml Output Total 1800 ml 2400 ml Balance 100 ml -910 ml -2400 ml Exam General: WN/WD/NAD, AOx 0 HEENT: Unicetric/atraumatic/EOMI (does not follow commands) NECK: trach Lymph: no lymphadenopathy HEART: regular with no S3, II/ systolic murmur at apex LUNGS: Coarse sounds ABD: soft, NT, ND, +BS : Intact Neuro: contracted SKIN: chronic changes EXT: trace edema Results Result Diagram: 11/25/16 0550 11/25/16 0550 Results 24 hrs Laboratory Tests Test 11/25/16 05:50 White Blood Count 7.9 # Red Blood Count 3.56 L Hemoglobin 9.5 L Hematocrit 31.1 L Mean Corpuscular Volume 87.4 Mean Corpuscular Hemoglobin 26.7 L Mean Corpuscular Hemoglobin Concent 30.5 L Red Cell Distribution Width 14.4 Platelet Count 221 # Mean Platelet Volume 11.1 H Neutrophils % 76.5 Lymphocytes % 14.6 L Monocytes % 5.4 Eosinophils % 2.2 Basophils % 0.4 Nucleated Red Blood Cells % 0.0 Neutrophils # 6.0 Lymphocytes # 1.2 Monocytes # 0.4 Eosinophils # 0.2 Basophils # 0.0 Nucleated Red Blood Cells # 0.0 Sodium Level 146 H Potassium Level 3.5 Chloride Level 115 H Carbon Dioxide Level 22 Anion Gap 13 Blood Urea Nitrogen 5 L Creatinine 0.75 Glucose Level 99 Calcium Level 9.2 Medications Medications Current Medications Acetaminophen (Tylenol Liquid) 650 mg Q6H PRN PO PAIN LEVEL 1-3 OR FEVER Last administered on 11/21/16 16:32; Admin Dose 650 MG; Start 11/21/16 at 03:00 Famotidine (Pepcid Iv) 20 mg Q12 IV Last administered on 11/25/16 08:34; Admin Dose 20 MG; Start 11/21/16 at 09:00 Ondansetron HCl (Zofran Inj) 4 mg Q6H PRN IV NAUSEA AND/OR VOMITING; Start at 13:00 Morphine Sulfate (morphine) 2 mg Q4H PRN IV PAIN LEVEL 7-10; Start 11/21/16 at 13:00 Pantoprazole (Protonix Iv) 40 mg DAILY@06 IV Last administered on 11/25/16 06: 11; Admin Dose 40 MG; Start 11/22/16 at 06:00 Enoxaparin Sodium 30 mg 30 mg DAILY SC Last administered on 11/25/16 08:37; Admin Dose 30 MG; Start 11/22/16 at 09:00 Potassium Chloride/Dextrose 1,000 ml @ 80 mls/hr [id number] IV Last administered on 11/25/16 01:07; Admin Dose 80 MLS/HR; Start 11/21/16 at 16:00 Piperacillin Sod/ Tazobactam Sod (Zosyn 3.375gm/ 100 ml (Pmx)) 100 ml @ 100 mls /hr Q6 IVPB Last administered on 11/25/16 07:56; Admin Dose 100 MLS/HR; Start 11/21/16 at 20:00 Aspirin (Aspirin) 81 mg DAILY PO Last administered on 11/23/16 09:11; Admin Dose 81 MG; Start 11/22/16 at 09:00 Metoprolol Tartrate 25 mg 25 mg BID PO Last administered on 11/22/16 21:21; Admin Dose 25 MG; Start 11/21/16 at 21:00 Vancomycin HCl (Vancocin) 250 ml @ 125 mls/hr Q12H IVPB Last administered on 06:12; Admin Dose 125 MLS/HR; Start 11/24/16 at 17:00 FABIOLA WATERS MD Nov 25, 2016 09:17
--- NOTE | 2016-11-25 12:43 | PN ---
DATE: 11/25/2016 SUBJECTIVE: No acute changes. No fevers. The patient is lying comfortably in bed. He is nonverba l, non-communicative. WBC 7.9, platelets 221, neutrophils 76.5. BUN 5, creatinine 0.75. INDWELLINGS: Trach, PEG, NG tube, Charles. ANTIMICROBIALS: 1. Vancomycin. 2. Zosyn. PHYSICAL EXAMINATION: GENERAL: Chronically ill-appearing, middle-aged, vegetative man who is in no distress. HEENT: Head atraumatic, normocephalic. Sclerae anicteric. Buccal mucosa dry. NECK: Supple. CHEST: Rise symmetrical. Breath sounds diminished to bases. HEART: S1, S2. ABDOMEN: Soft. Bowel tones hypoactive. EXTREMITIES: No cyanosis. ASSESSMENT: 1. Resolving sepsis. 2. Small-bowel obstruction likely secondary to severe fecal impaction. 3. Chronic respiratory failure. 4. History of seizure disorder. 5. Persistent vegetative state. PLAN: The patient remains stable. White blood cell count markedly improved. He is on appropriate antimicrobials. We will follow GI recommendations. Dictated By: YURY YOON SHOE SHINER for MCKENNA MORRIS MD NI/NTS Conf#: [id number] DID#: [id number]
--- NOTE | 2016-11-25 18:00 | PN ---
Date/Time of Note Date/Time of Note DATE: 11/25/16 TIME: 17:56 Assessment/Plan VTE Prophylaxis VTE Prophylaxis Intervention: SCD's Lines/Catheters IV C[facility] Type [facility] Central Line Central line still needed: Yes Urinary Cath still in place: Yes Reason Cath still needed: urinary retention Assessment/Plan Chief Complaint/Hosp Course Patient remains afebrile and hemodynamically stable leukocytosis resolved NG tube to low suction continue to follow-up gastroenterology recommendations ASSESSMENT AND PLAN: 1. Sepsis of unknown etiology, with shock, resolving, continue broad-spectrum antibiotics. Dr. Matias is following in infection disease consultation. 2. Possible small-bowel obstruction vs ileus. Dr. Murcia is following in general surgery consultation. Dr. Walton is following in gastroenterology consultation 3. Acute kidney injury with electrolyte imbalances, resolved. Continue IV fluids. Monitor electrolytes. Dr. Aceves is following in nephrology consultation. 4. Elevated troponin, most likely secondary to demand ischemia. Trending down. Dr. Flor is following in cardiology consultation. 5. Ventilator-dependent respiratory failure. 6. Dysphagia with G-tube. 7. Seizure disorder. Continue Keppra. 8. Anoxic encephalopathy, status post cardiac arrest. 9. Schizophrenia by history. Continue Lovenox for deep venous thrombosis prophylaxis and Pepcid for peptic ulcer disease prophylaxis. Further recommendations based on clinical course. Plan of care discussed with Dr. Courtney. Problems: Exam/Review of Systems Vital Signs Vitals Vital Signs Date Time Temp Pulse Resp B/P Pulse Ox O2 Delivery O2 Flow Rate FiO2 11/25/16 17:40 71 11/25/16 17:09 18 97 40 11/25/16 15:41 98.6 135/86 11/24/16 07:55 Mechanical Ventilator 11/24/16 07:00 10.0 Intake and Output 11/24/16 11/24/16 11/25/16 15:00 23:00 07:00 Intake Total 100 ml 890 ml Output Total 1800 ml 2400 ml Balance 100 ml -910 ml -2400 ml Exam Constitutional: non-verbal Head: normocephalic Neck: other (Tracheostomy), supple Cardiovascular: nl pulses, regular rate and rhythm Gastrointestinal: non-tender, soft Extremities: normal pulses, other (Contracted) Results Result Diagram: 11/25/16 0550 11/25/16 0550 Results 24 hrs Laboratory Tests Test 11/25/16 05:50 White Blood Count 7.9 # Red Blood Count 3.56 L Hemoglobin 9.5 L Hematocrit 31.1 L Mean Corpuscular Volume 87.4 Mean Corpuscular Hemoglobin 26.7 L Mean Corpuscular Hemoglobin Concent 30.5 L Red Cell Distribution Width 14.4 Platelet Count 221 # Mean Platelet Volume 11.1 H Neutrophils % 76.5 Lymphocytes % 14.6 L Monocytes % 5.4 Eosinophils % 2.2 Basophils % 0.4 Nucleated Red Blood Cells % 0.0 Neutrophils # 6.0 Lymphocytes # 1.2 Monocytes # 0.4 Eosinophils # 0.2 Basophils # 0.0 Nucleated Red Blood Cells # 0.0 Sodium Level 146 H Potassium Level 3.5 Chloride Level 115 H Carbon Dioxide Level 22 Anion Gap 13 Blood Urea Nitrogen 5 L Creatinine 0.75 Glucose Level 99 Calcium Level 9.2 Medications Medications Current Medications Acetaminophen (Tylenol Liquid) 650 mg Q6H PRN PO PAIN LEVEL 1-3 OR FEVER Last administered on 11/21/16 16:32; Admin Dose 650 MG; Start 11/21/16 at 03:00 Ondansetron HCl (Zofran Inj) 4 mg Q6H PRN IV NAUSEA AND/OR VOMITING; Start at 13:00 Morphine Sulfate (morphine) 2 mg Q4H PRN IV PAIN LEVEL 7-10; Start 11/21/16 at 13:00 Pantoprazole (Protonix Iv) 40 mg DAILY@06 IV Last administered on 11/25/16 06: 11; Admin Dose 40 MG; Start 11/22/16 at 06:00 Enoxaparin Sodium 30 mg 30 mg DAILY SC Last administered on 11/25/16 08:37; Admin Dose 30 MG; Start 11/22/16 at 09:00 Potassium Chloride/Dextrose 1,000 ml @ 80 mls/hr [id number] IV Last administered on 11/25/16 01:07; Admin Dose 80 MLS/HR; Start 11/21/16 at 16:00 Piperacillin Sod/ Tazobactam Sod (Zosyn 3.375gm/ 100 ml (Pmx)) 100 ml @ 100 mls /hr Q6 IVPB Last administered on 11/25/16 12:54; Admin Dose 100 MLS/HR; Start 11/21/16 at 20:00 Aspirin (Aspirin) 81 mg DAILY PO Last administered on 11/23/16 09:11; Admin Dose 81 MG; Start 11/22/16 at 09:00 Metoprolol Tartrate 25 mg 25 mg BID PO Last administered on 11/22/16 21:21; Admin Dose 25 MG; Start 11/21/16 at 21:00 Vancomycin HCl (Vancocin) 250 ml @ 125 mls/hr Q12H IVPB Last administered on 16:37; Admin Dose 125 MLS/HR; Start 11/24/16 at 17:00 Miscellaneous Information (*Rx Drug Level Order Reminder*) 1 ONCE ONCE XX ; Start 11/26/16 at 04:00; Stop 11/26/16 at 04:01 JH WISDOM Nov 25, 2016 18:00
--- NOTE | 2016-11-25 21:33 | CONS ---
Date/Time of Note Date/Time of Note DATE: 11/25/16 TIME: 21:30 Assessment/Plan Assessment/Plan Additional Assessment/Plan 1. Acute kidney injury secondary to severe prerenal azotemia and ischemic acute tubular necrosis from a bowel obstruction. 2. Severe hypernatremia secondary to a large free water deficit. 3. Hypokalemia. 4. Elevated troponin secondary to possible demand ischemia. 5. Sepsis of unknown etiology. 6. Possible small-bowel obstruction from fecal impaction. 7. History of ventilator-dependent respiratory failure secondary to anoxic encephalopathy from cardiac arrest, status post tracheostomy. 8. History of dysphagia, status post G-tube placement. 9. History of seizure disorder. 10. History of schizophrenia. 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 PLAN: continue IVF D5W with KCL at 80cc/hr Cr normal, Na improving, K Normal will follow up Consultation Date/Type/Reason Admit Date/Time Nov 21, 2016 at 02:41 Initial Consult Date 11/21/16 Type of Consultation: NEPHROLOGY Referring Provider: RICHARD GIRARD MD 24 HR Interval Summary Free Text/Dictation remained stable in Tele floor, rate controlled, BP stable Exam/Review of Systems Vital Signs Vitals Vital Signs Date Time Temp Pulse Resp B/P Pulse Ox O2 Delivery O2 Flow Rate FiO2 11/25/16 21:21 91 22 93 40 11/25/16 20:04 98.0 126/82 11/24/16 07:55 Mechanical Ventilator 11/24/16 07:00 10.0 Intake and Output 11/24/16 11/24/16 11/25/16 15:00 23:00 07:00 Intake Total 100 ml 890 ml Output Total 1800 ml 2400 ml Balance 100 ml -910 ml -2400 ml Exam GENERAL: Chronically ill-appearing, middle-aged, vegetative man who is in no distress. HEENT: Head atraumatic, normocephalic. Sclerae anicteric. Buccal mucosa dry. NECK: Supple. CHEST: Rise symmetrical. Breath sounds diminished to bases. HEART: S1, S2. ABDOMEN: Soft. Bowel tones hypoactive. EXTREMITIES: No cyanosis. Results Result Diagram: 11/25/16 0550 11/25/16 0550 Results 24 hrs Laboratory Tests Test 11/25/16 05:50 White Blood Count 7.9 # Red Blood Count 3.56 L Hemoglobin 9.5 L Hematocrit 31.1 L Mean Corpuscular Volume 87.4 Mean Corpuscular Hemoglobin 26.7 L Mean Corpuscular Hemoglobin Concent 30.5 L Red Cell Distribution Width 14.4 Platelet Count 221 # Mean Platelet Volume 11.1 H Neutrophils % 76.5 Lymphocytes % 14.6 L Monocytes % 5.4 Eosinophils % 2.2 Basophils % 0.4 Nucleated Red Blood Cells % 0.0 Neutrophils # 6.0 Lymphocytes # 1.2 Monocytes # 0.4 Eosinophils # 0.2 Basophils # 0.0 Nucleated Red Blood Cells # 0.0 Sodium Level 146 H Potassium Level 3.5 Chloride Level 115 H Carbon Dioxide Level 22 Anion Gap 13 Blood Urea Nitrogen 5 L Creatinine 0.75 Glucose Level 99 Calcium Level 9.2 Medications Medications Current Medications Acetaminophen (Tylenol Liquid) 650 mg Q6H PRN PO PAIN LEVEL 1-3 OR FEVER Last administered on 11/21/16 16:32; Admin Dose 650 MG; Start 11/21/16 at 03:00 Ondansetron HCl (Zofran Inj) 4 mg Q6H PRN IV NAUSEA AND/OR VOMITING; Start at 13:00 Morphine Sulfate (morphine) 2 mg Q4H PRN IV PAIN LEVEL 7-10; Start 11/21/16 at 13:00 Pantoprazole (Protonix Iv) 40 mg DAILY@06 IV Last administered on 11/25/16 06: 11; Admin Dose 40 MG; Start 11/22/16 at 06:00 Enoxaparin Sodium 30 mg 30 mg DAILY SC Last administered on 11/25/16 08:37; Admin Dose 30 MG; Start 11/22/16 at 09:00 Potassium Chloride/Dextrose 1,000 ml @ 80 mls/hr [id number] IV Last administered on 11/25/16 01:07; Admin Dose 80 MLS/HR; Start 11/21/16 at 16:00 Piperacillin Sod/ Tazobactam Sod (Zosyn 3.375gm/ 100 ml (Pmx)) 100 ml @ 100 mls /hr Q6 IVPB Last administered on 11/25/16 18:24; Admin Dose 100 MLS/HR; Start 11/21/16 at 20:00 Aspirin (Aspirin) 81 mg DAILY PO Last administered on 11/23/16 09:11; Admin Dose 81 MG; Start 11/22/16 at 09:00 Metoprolol Tartrate 25 mg 25 mg BID PO Last administered on 11/22/16 21:21; Admin Dose 25 MG; Start 11/21/16 at 21:00 Vancomycin HCl (Vancocin) 250 ml @ 125 mls/hr Q12H IVPB Last administered on 16:37; Admin Dose 125 MLS/HR; Start 11/24/16 at 17:00 Miscellaneous Information (*Rx Drug Level Order Reminder*) 1 ONCE ONCE XX ; Start 11/26/16 at 04:00; Stop 11/26/16 at 04:01 UMM MANNING MD Nov 25, 2016 21:33
[2016-11-26] VITALS (24 sets, daily range): BP systolic 87–126; BP diastolic 51–87; PULSE 60–80; RESP 16–26
[2016-11-26] MEDS: PANTOPRAZOLE 40 MG INJ IV SCH (06:09)
[2016-11-26] MEDS: PIPER-TAZO 3.375 GM IV (PMX) 100 ML IVPB SCH ×2 (06:09→14:17)
[2016-11-26 08:59] LABS: ADD SCAN DIFF NO
[2016-11-26 09:08] LABS: BASOPHILS % 0.2 % (0.0-2.0); EOSINOPHILS # 0.1 10^3/ul (0.0-0.5); EOSINOPHILS % 0.4 % (0.0-7.0); HEMATOCRIT 32.6 % (42.0-52.0); HEMOGLOBIN 10.1 g/dl (14.0-18.0); LYMPHOCYTES # 1.6 10^3/ul (0.8-2.9); MEAN CORPUSCULAR HEMOGLOBIN 27.2 pg (29.0-33.0); MEAN CORPUSCULAR VOLUME 87.6 fl (82.0-101.0); MEAN PLATELET VOLUME 11.9 fl (7.4-10.4); MONOCYTE # 0.8 10^3/ul (0.3-0.9); MONOCYTES % 5.9 % (0.0-11.0); NEUTROPHIL # 10.5 10^3/ul (1.6-7.5); NEUTROPHILS % 80.7 % (39.0-77.0); PLATELET COUNT 291 10^3/UL (140-415); RED BLOOD COUNT 3.72 10^6/ul (4.70-6.10); RED CELL DISTRIBUTION WIDTH 14.8 % (11.5-14.5)
[2016-11-26 09:10] LABS: CALCIUM 9.3 mg/dl (8.4-10.2); CREATININE 0.91 mg/dl (0.61-1.24); POTASSIUM 3.6 mmol/L (3.5-5.1)
[2016-11-26] MEDS: VANCOMYCIN 750 MG in SOD CHLORIDE 0.9% 150 ML IVPB SCH ×2 (09:30→21:35)
[2016-11-26] MEDS: D5W + KCL 20 MEQ 1,000 ML IV SCH (09:32)
[2016-11-26] MEDS: ASPIRIN 81 MG TAB PO SCH (09:33)
[2016-11-26] MEDS: ACETAMINOPHEN 650MG/20.3ML CUP PO PRN (09:33)
[2016-11-26] MEDS: METOPROLOL 25 MG TAB PO SCH ×2 (09:33→20:14)
[2016-11-26] MEDS: ENOXAPARIN 30 MG/0.3 ML SYG SC SCH (09:37)
--- NOTE | 2016-11-26 12:55 | CONS ---
Date/Time of Note Date/Time of Note DATE: 11/26/16 TIME: 12:54 Assessment/Plan Assessment/Plan Chief Complaint/Hosp Course SUBJECTIVE: No acute changes. No fevers. The patient is lying comfortably in bed. He is nonverbal, non-communicative. INDWELLINGS: Trach, PEG, NG tube, Charles. ANTIMICROBIALS: 1. Vancomycin. 2. Zosyn. PHYSICAL EXAMINATION: GENERAL: Chronically ill-appearing, middle-aged, vegetative man who is in no distress. HEENT: Head atraumatic, normocephalic. Sclerae anicteric. Buccal mucosa dry. NECK: Supple. CHEST: Rise symmetrical. Breath sounds diminished to bases. HEART: S1, S2. ABDOMEN: Soft. Bowel tones hypoactive. EXTREMITIES: No cyanosis. ASSESSMENT: 1. Resolving sepsis. 2. Small-bowel obstruction likely secondary to severe fecal impaction. 3. Chronic respiratory failure. 4. History of seizure disorder. 5. Persistent vegetative state. PLAN: The patient remains stable. Continue abx, follow GI recommendations, vent per pulmonary. DW staff Problems: Consultation Date/Type/Reason Admit Date/Time Nov 21, 2016 at 02:41 Initial Consult Date 11/21/16 Type of Consultation: ID Referring Provider: RICHARD GIRARD MD Exam/Review of Systems Vital Signs Vitals Vital Signs Date Time Temp Pulse Resp B/P Pulse Ox O2 Delivery O2 Flow Rate FiO2 11/26/16 12:36 67 11/26/16 12:01 99.7 19 98/60 99 11/26/16 08:12 40 11/24/16 07:55 Mechanical Ventilator 11/24/16 07:00 10.0 Intake and Output 11/25/16 11/25/16 11/26/16 15:00 23:00 07:00 Intake Total 200 ml 850 ml 120 ml Output Total 1100 ml 1000 ml Balance 200 ml -250 ml -880 ml Results Result Diagram: 11/26/16 0400 11/26/16 0400 Results 24 hrs Laboratory Tests Test 11/26/16 04:00 White Blood Count 13.0 #H Red Blood Count 3.72 L Hemoglobin 10.1 L Hematocrit 32.6 L Mean Corpuscular Volume 87.6 Mean Corpuscular Hemoglobin 27.2 L Mean Corpuscular Hemoglobin Concent 31.0 L Red Cell Distribution Width 14.8 H Platelet Count 291 # Mean Platelet Volume 11.9 H Neutrophils % 80.7 H Lymphocytes % 12.0 L Monocytes % 5.9 Eosinophils % 0.4 Basophils % 0.2 Nucleated Red Blood Cells % 0.0 Neutrophils # 10.5 H Lymphocytes # 1.6 Monocytes # 0.8 Eosinophils # 0.1 Basophils # 0.0 Nucleated Red Blood Cells # 0.0 Sodium Level 144 Potassium Level 3.6 Chloride Level 113 H Carbon Dioxide Level 23 Anion Gap 12 Blood Urea Nitrogen 6 L Creatinine 0.91 Glucose Level 101 Calcium Level 9.3 Vancomycin Level Trough 21.1 *H Medications Medications Current Medications Acetaminophen (Tylenol Liquid) 650 mg Q6H PRN PO PAIN LEVEL 1-3 OR FEVER Last administered on 11/26/16 09:33; Admin Dose 650 MG; Start 11/21/16 at 03:00 Ondansetron HCl (Zofran Inj) 4 mg Q6H PRN IV NAUSEA AND/OR VOMITING; Start at 13:00 Morphine Sulfate (morphine) 2 mg Q4H PRN IV PAIN LEVEL 7-10; Start 11/21/16 at 13:00 Pantoprazole (Protonix Iv) 40 mg DAILY@06 IV Last administered on 11/26/16 06: 09; Admin Dose 40 MG; Start 11/22/16 at 06:00 Enoxaparin Sodium 30 mg 30 mg DAILY SC Last administered on 11/26/16 09:37; Admin Dose 30 MG; Start 11/22/16 at 09:00 Potassium Chloride/Dextrose 1,000 ml @ 80 mls/hr [id number] IV Last administered on 11/26/16 09:32; Admin Dose 80 MLS/HR; Start 11/21/16 at 16:00 Piperacillin Sod/ Tazobactam Sod (Zosyn 3.375gm/ 100 ml (Pmx)) 100 ml @ 100 mls /hr Q6 IVPB Last administered on 11/26/16 06:09; Admin Dose 100 MLS/HR; Start 11/21/16 at 20:00 Aspirin (Aspirin) 81 mg DAILY PO Last administered on 11/26/16 09:33; Admin Dose 81 MG; Start 11/22/16 at 09:00 Metoprolol Tartrate 25 mg 25 mg BID PO Last administered on 11/26/16 09:33; Admin Dose 25 MG; Start 11/21/16 at 21:00 Vancomycin HCl/ Sodium Chloride (Vancocin/NS) 150 ml @ 75 mls/hr Q12H IVPB Last administered on 11/26/16 09:30; Admin Dose 75 MLS/HR; Start 11/26/16 at 08 :00 YURY YOON NP Nov 26, 2016 12:55
--- NOTE | 2016-11-26 14:06 | CONS ---
Date/Time of Note Date/Time of Note DATE: 11/26/16 TIME: 14:04 Assessment/Plan Assessment/Plan Additional Assessment/Plan Ventilator setting; AC of 16, tidal volume 450, PEEP of 5, 40% FiO2. Assessment recommendations; 1. Patient admitted with sepsis with significant leukocytosis also had fecal impaction. Clinically much improved. 2. Possibly pneumonia. 3. Chronic respiratory failure, underlying severe anoxic brain injury. 4. Stable seizure disorder. Continue current supportive care. Obtain follow-up chest x-ray. Consultation Date/Type/Reason Admit Date/Time Nov 21, 2016 at 02:41 Initial Consult Date 11/21/16 Type of Consultation: Pulmonary Referring Provider: RICHARD GIRARD MD 24 HR Interval Summary Free Text/Dictation Patient condition remains stable. No untoward events reported. Vinayak; middle-aged male, on ventilator via tracheostomy currently in no distress, unresponsive. Exam/Review of Systems Vital Signs Vitals Vital Signs Date Time Temp Pulse Resp B/P Pulse Ox O2 Delivery O2 Flow Rate FiO2 11/26/16 12:36 67 11/26/16 12:01 99.7 19 98/60 99 11/26/16 08:12 40 11/24/16 07:55 Mechanical Ventilator 11/24/16 07:00 10.0 Intake and Output 11/25/16 11/25/16 11/26/16 15:00 23:00 07:00 Intake Total 200 ml 850 ml 120 ml Output Total 1100 ml 1000 ml Balance 200 ml -250 ml -880 ml Exam HEENT exam; supple neck, no JVD. No lymphadenopathy. Midline trachea. No thyromegaly. Tracheostomy in place. Patient has multiple carious teeth. Pupils are small bilaterally. Chest examined; diminished but clear vessel. S1-S2 audible, no murmurs. Regular rhythm. Abdomen examination; soft, nondistended. G-tube in place. Bowel sounds audible. Extremity examination; no peripheral edema. Patient has severe contractures involving all 4 extremities. EVISCERATOR examination; patient is awake but unresponsive to any commands. Results Result Diagram: 11/26/16 0400 11/26/16 0400 Results 24 hrs Laboratory Tests Test 11/26/16 04:00 White Blood Count 13.0 #H Red Blood Count 3.72 L Hemoglobin 10.1 L Hematocrit 32.6 L Mean Corpuscular Volume 87.6 Mean Corpuscular Hemoglobin 27.2 L Mean Corpuscular Hemoglobin Concent 31.0 L Red Cell Distribution Width 14.8 H Platelet Count 291 # Mean Platelet Volume 11.9 H Neutrophils % 80.7 H Lymphocytes % 12.0 L Monocytes % 5.9 Eosinophils % 0.4 Basophils % 0.2 Nucleated Red Blood Cells % 0.0 Neutrophils # 10.5 H Lymphocytes # 1.6 Monocytes # 0.8 Eosinophils # 0.1 Basophils # 0.0 Nucleated Red Blood Cells # 0.0 Sodium Level 144 Potassium Level 3.6 Chloride Level 113 H Carbon Dioxide Level 23 Anion Gap 12 Blood Urea Nitrogen 6 L Creatinine 0.91 Glucose Level 101 Calcium Level 9.3 Vancomycin Level Trough 21.1 *H Medications Medications Current Medications Acetaminophen (Tylenol Liquid) 650 mg Q6H PRN PO PAIN LEVEL 1-3 OR FEVER Last administered on 11/26/16 09:33; Admin Dose 650 MG; Start 11/21/16 at 03:00 Ondansetron HCl (Zofran Inj) 4 mg Q6H PRN IV NAUSEA AND/OR VOMITING; Start at 13:00 Morphine Sulfate (morphine) 2 mg Q4H PRN IV PAIN LEVEL 7-10; Start 11/21/16 at 13:00 Pantoprazole (Protonix Iv) 40 mg DAILY@06 IV Last administered on 11/26/16 06: 09; Admin Dose 40 MG; Start 11/22/16 at 06:00 Enoxaparin Sodium 30 mg 30 mg DAILY SC Last administered on 11/26/16 09:37; Admin Dose 30 MG; Start 11/22/16 at 09:00 Potassium Chloride/Dextrose 1,000 ml @ 80 mls/hr [id number] IV Last administered on 11/26/16 09:32; Admin Dose 80 MLS/HR; Start 11/21/16 at 16:00 Piperacillin Sod/ Tazobactam Sod (Zosyn 3.375gm/ 100 ml (Pmx)) 100 ml @ 100 mls /hr Q6 IVPB Last administered on 11/26/16 06:09; Admin Dose 100 MLS/HR; Start 11/21/16 at 20:00 Aspirin (Aspirin) 81 mg DAILY PO Last administered on 11/26/16 09:33; Admin Dose 81 MG; Start 11/22/16 at 09:00 Metoprolol Tartrate 25 mg 25 mg BID PO Last administered on 11/26/16 09:33; Admin Dose 25 MG; Start 11/21/16 at 21:00 Vancomycin HCl/ Sodium Chloride (Vancocin/NS) 150 ml @ 75 mls/hr Q12H IVPB Last administered on 11/26/16 09:30; Admin Dose 75 MLS/HR; Start 11/26/16 at 08 :00 MI JEFFERS Nov 26, 2016 14:06
--- NOTE | 2016-11-26 14:35 | CONS ---
Date/Time of Note Date/Time of Note DATE: 11/26/16 TIME: 14:33 Assessment/Plan Assessment/Plan Chief Complaint/Hosp Course IMPRESSION: 1. Positive troponin in the setting of high fevers and tachycardia, now trending negative, likely demand event type 2 infarct. NL EF by echo this admit 2. Abnormal electrocardiogram, with nonspecific ST-T and T-wave abnormalities. 3. Supraventricular tachycardia, possibly sinus tachycardia in the setting of fevers versus atrial flutter-no recurrence 4. Hypotension-overall improved but marginal. 5. Fevers. 6. Anoxic encephalopathy. 7. Chronic respiratory failure, status post tracheostomy. 8. Hypernatremia-improved 9. Hypokalemia.-improved 10. Anemia. 11. Hematuria. Recc: -Tele -Continue low dose BB as tolerated only -Continue asa -Follow volume status closely -Continue abx's and f/u cx data Problems: Consultation Date/Type/Reason Admit Date/Time Nov 21, 2016 at 02:41 Initial Consult Date 11/21/16 Type of Consultation: cardiology Reason for Consultation positive troponin Referring Provider: RICHARD GIRARD MD Exam/Review of Systems Vital Signs Vitals Vital Signs Date Time Temp Pulse Resp B/P Pulse Ox O2 Delivery O2 Flow Rate FiO2 11/26/16 12:36 67 11/26/16 12:01 99.7 19 98/60 99 11/26/16 08:12 40 11/24/16 07:55 Mechanical Ventilator 11/24/16 07:00 10.0 Intake and Output 11/25/16 11/25/16 11/26/16 15:00 23:00 07:00 Intake Total 200 ml 850 ml 120 ml Output Total 1100 ml 1000 ml Balance 200 ml -250 ml -880 ml Exam Review of Systems: CONSTITUTIONAL: No fevers, chills. PULMONARY: trached CARDIOVASCULAR: No chest pain/palpitations GASTROINTESTINAL: G-tube GENITOURINARY: No hematuria/dysuria. MUSCULOSKELETAL: No myagias/arthalgias. PSYCHIATRIC: The patient denies depression. NEUROLOGIC: encephalopathy Constitutional: other (encephalopathic) Psych: no complaints Head: normocephalic ENMT: mucosa pink and moist Neck: jvd (9 cm water), other (trach), supple Respiratory: diminished breath sounds (at bases/B) Cardiovascular: regular rate and rhythm Gastrointestinal: non-tender, soft Musculoskeletal: muscle tone (normal) Extremities: edema (none) Neurological: other (encephalopathioc) Results Result Diagram: 11/26/16 0400 11/26/16 0400 Results 24 hrs Laboratory Tests Test 11/26/16 04:00 White Blood Count 13.0 #H Red Blood Count 3.72 L Hemoglobin 10.1 L Hematocrit 32.6 L Mean Corpuscular Volume 87.6 Mean Corpuscular Hemoglobin 27.2 L Mean Corpuscular Hemoglobin Concent 31.0 L Red Cell Distribution Width 14.8 H Platelet Count 291 # Mean Platelet Volume 11.9 H Neutrophils % 80.7 H Lymphocytes % 12.0 L Monocytes % 5.9 Eosinophils % 0.4 Basophils % 0.2 Nucleated Red Blood Cells % 0.0 Neutrophils # 10.5 H Lymphocytes # 1.6 Monocytes # 0.8 Eosinophils # 0.1 Basophils # 0.0 Nucleated Red Blood Cells # 0.0 Sodium Level 144 Potassium Level 3.6 Chloride Level 113 H Carbon Dioxide Level 23 Anion Gap 12 Blood Urea Nitrogen 6 L Creatinine 0.91 Glucose Level 101 Calcium Level 9.3 Vancomycin Level Trough 21.1 *H Medications Medications Current Medications Acetaminophen (Tylenol Liquid) 650 mg Q6H PRN PO PAIN LEVEL 1-3 OR FEVER Last administered on 11/26/16 09:33; Admin Dose 650 MG; Start 11/21/16 at 03:00 Ondansetron HCl (Zofran Inj) 4 mg Q6H PRN IV NAUSEA AND/OR VOMITING; Start at 13:00 Morphine Sulfate (morphine) 2 mg Q4H PRN IV PAIN LEVEL 7-10; Start 11/21/16 at 13:00 Pantoprazole (Protonix Iv) 40 mg DAILY@06 IV Last administered on 11/26/16 06: 09; Admin Dose 40 MG; Start 11/22/16 at 06:00 Enoxaparin Sodium 30 mg 30 mg DAILY SC Last administered on 11/26/16 09:37; Admin Dose 30 MG; Start 11/22/16 at 09:00 Potassium Chloride/Dextrose 1,000 ml @ 80 mls/hr [id number] IV Last administered on 11/26/16 09:32; Admin Dose 80 MLS/HR; Start 11/21/16 at 16:00 Piperacillin Sod/ Tazobactam Sod (Zosyn 3.375gm/ 100 ml (Pmx)) 100 ml @ 100 mls /hr Q6 IVPB Last administered on 11/26/16 14:17; Admin Dose 100 MLS/HR; Start 11/21/16 at 20:00 Aspirin (Aspirin) 81 mg DAILY PO Last administered on 11/26/16 09:33; Admin Dose 81 MG; Start 11/22/16 at 09:00 Metoprolol Tartrate 25 mg 25 mg BID PO Last administered on 11/26/16 09:33; Admin Dose 25 MG; Start 11/21/16 at 21:00 Vancomycin HCl/ Sodium Chloride (Vancocin/NS) 150 ml @ 75 mls/hr Q12H IVPB Last administered on 11/26/16 09:30; Admin Dose 75 MLS/HR; Start 11/26/16 at 08 :00 ELOINA MISHRA Nov 26, 2016 14:35
--- NOTE | 2016-11-26 16:57 | CONS ---
Date/Time of Note Date/Time of Note DATE: 11/26/16 TIME: 16:52 Assessment/Plan Assessment/Plan Additional Assessment/Plan 1. Acute kidney injury secondary to severe prerenal azotemia and ischemic acute tubular necrosis from a bowel obstruction. 2. Severe hypernatremia secondary to a large free water deficit. 3. Hypokalemia. 4. Elevated troponin secondary to possible demand ischemia. 5. Sepsis of unknown etiology. 6. Possible small-bowel obstruction from fecal impaction. 7. History of ventilator-dependent respiratory failure secondary to anoxic encephalopathy from cardiac arrest, status post tracheostomy. 8. History of dysphagia, status post G-tube placement. 9. History of seizure disorder. 10. History of schizophrenia. 11. [facility]. PLAN: continue IVF D5W with KCL - decrease rate to 60cc/hr Cr normal, Na improving, K Normal will follow up Consultation Date/Type/Reason Admit Date/Time Nov 21, 2016 at 02:41 Initial Consult Date 11/21/16 Type of Consultation: NEPHROLOGY Referring Provider: RICHARD GIRARD MD 24 HR Interval Summary Free Text/Dictation Cr normal, BP stable afebrile Exam/Review of Systems Vital Signs Vitals Vital Signs Date Time Temp Pulse Resp B/P Pulse Ox O2 Delivery O2 Flow Rate FiO2 11/26/16 16:06 72 115/73 11/26/16 15:44 99.6 18 99 11/26/16 08:12 40 11/24/16 07:55 Mechanical Ventilator 11/24/16 07:00 10.0 Intake and Output 11/25/16 11/25/16 11/26/16 15:00 23:00 07:00 Intake Total 200 ml 850 ml 120 ml Output Total 1100 ml 1000 ml Balance 200 ml -250 ml -880 ml Exam GENERAL: Chronically ill-appearing, middle-aged, vegetative man who is in no distress. HEENT: Head atraumatic, normocephalic. Sclerae anicteric. Buccal mucosa dry. NECK: Supple. CHEST: Rise symmetrical. Breath sounds diminished to bases. HEART: S1, S2. ABDOMEN: Soft. Bowel tones hypoactive. EXTREMITIES: No cyanosis. Results Result Diagram: 11/26/16 0400 11/26/16 0400 Results 24 hrs Laboratory Tests Test 11/26/16 04:00 White Blood Count 13.0 #H Red Blood Count 3.72 L Hemoglobin 10.1 L Hematocrit 32.6 L Mean Corpuscular Volume 87.6 Mean Corpuscular Hemoglobin 27.2 L Mean Corpuscular Hemoglobin Concent 31.0 L Red Cell Distribution Width 14.8 H Platelet Count 291 # Mean Platelet Volume 11.9 H Neutrophils % 80.7 H Lymphocytes % 12.0 L Monocytes % 5.9 Eosinophils % 0.4 Basophils % 0.2 Nucleated Red Blood Cells % 0.0 Neutrophils # 10.5 H Lymphocytes # 1.6 Monocytes # 0.8 Eosinophils # 0.1 Basophils # 0.0 Nucleated Red Blood Cells # 0.0 Sodium Level 144 Potassium Level 3.6 Chloride Level 113 H Carbon Dioxide Level 23 Anion Gap 12 Blood Urea Nitrogen 6 L Creatinine 0.91 Glucose Level 101 Calcium Level 9.3 Vancomycin Level Trough 21.1 *H Medications Medications Current Medications Acetaminophen (Tylenol Liquid) 650 mg Q6H PRN PO PAIN LEVEL 1-3 OR FEVER Last administered on 11/26/16 09:33; Admin Dose 650 MG; Start 11/21/16 at 03:00 Ondansetron HCl (Zofran Inj) 4 mg Q6H PRN IV NAUSEA AND/OR VOMITING; Start at 13:00 Morphine Sulfate (morphine) 2 mg Q4H PRN IV PAIN LEVEL 7-10; Start 11/21/16 at 13:00 Pantoprazole (Protonix Iv) 40 mg DAILY@06 IV Last administered on 11/26/16 06: 09; Admin Dose 40 MG; Start 11/22/16 at 06:00 Enoxaparin Sodium 30 mg 30 mg DAILY SC Last administered on 11/26/16 09:37; Admin Dose 30 MG; Start 11/22/16 at 09:00 Potassium Chloride/Dextrose 1,000 ml @ 80 mls/hr [id number] IV Last administered on 11/26/16 09:32; Admin Dose 80 MLS/HR; Start 11/21/16 at 16:00 Piperacillin Sod/ Tazobactam Sod (Zosyn 3.375gm/ 100 ml (Pmx)) 100 ml @ 100 mls /hr Q6 IVPB Last administered on 11/26/16 14:17; Admin Dose 100 MLS/HR; Start 11/21/16 at 20:00 Aspirin (Aspirin) 81 mg DAILY PO Last administered on 11/26/16 09:33; Admin Dose 81 MG; Start 11/22/16 at 09:00 Metoprolol Tartrate 25 mg 25 mg BID PO Last administered on 11/26/16 09:33; Admin Dose 25 MG; Start 11/21/16 at 21:00 Vancomycin HCl/ Sodium Chloride (Vancocin/NS) 150 ml @ 75 mls/hr Q12H IVPB Last administered on 11/26/16 09:30; Admin Dose 75 MLS/HR; Start 11/26/16 at 08 :00 UMM MANNING MD Nov 26, 2016 16:57
--- NOTE | 2016-11-26 17:29 | PN ---
Date/Time of Note Date/Time of Note DATE: 11/26/16 TIME: 17:21 Assessment/Plan VTE Prophylaxis VTE Prophylaxis Intervention: SCD's Lines/Catheters IV [facility]ter Type (from [facility]): PICC Line Central line still needed: Yes Urinary Cath still in place: Yes Reason Cath still needed: urinary retention Assessment/Plan Chief Complaint/Hosp Course Patient has a large amount secretions from tracheostomy, low-grade fever hypotension and leukocytosis. Sputum culture is growing MDR Proteus, start patient on amikacin. ASSESSMENT AND PLAN: 1. Sepsis of unknown etiology, with shock, resolving, continue broad-spectrum antibiotics. Dr. Matias is following in infection disease consultation. 2. Possible small-bowel obstruction vs ileus. Dr. Murcia is following in general surgery consultation. Dr. Walton is following in gastroenterology consultation 3. Acute kidney injury with electrolyte imbalances, resolved. Continue IV fluids. Monitor electrolytes. Dr. Aceves is following in nephrology consultation. 4. Elevated troponin, most likely secondary to demand ischemia. Trending down. Dr. Flor is following in cardiology consultation. 5. Ventilator-dependent respiratory failure. 6. Dysphagia with G-tube. 7. Seizure disorder. Continue Keppra. 8. Anoxic encephalopathy, status post cardiac arrest. 9. Schizophrenia by history. Continue Lovenox for deep venous thrombosis prophylaxis and Pepcid for peptic ulcer disease prophylaxis. Further recommendations based on clinical course. Plan of care discussed with Dr. Courtney. Problems: Exam/Review of Systems Vital Signs Vitals Vital Signs Date Time Temp Pulse Resp B/P Pulse Ox O2 Delivery O2 Flow Rate FiO2 11/26/16 17:03 66 11/26/16 16:06 115/73 11/26/16 15:44 99.6 18 99 11/26/16 08:12 40 11/24/16 07:55 Mechanical Ventilator 11/24/16 07:00 10.0 Intake and Output 11/25/16 11/25/16 11/26/16 15:00 23:00 07:00 Intake Total 200 ml 850 ml 120 ml Output Total 1100 ml 1000 ml Balance 200 ml -250 ml -880 ml Exam Constitutional: non-verbal Head: normocephalic Neck: other (Tracheostomy), supple Cardiovascular: nl pulses, regular rate and rhythm Gastrointestinal: non-tender, soft Extremities: normal pulses, other (Contracted) Results Result Diagram: 11/26/16 0400 11/26/16 0400 Results 24 hrs Laboratory Tests Test 11/26/16 04:00 White Blood Count 13.0 #H Red Blood Count 3.72 L Hemoglobin 10.1 L Hematocrit 32.6 L Mean Corpuscular Volume 87.6 Mean Corpuscular Hemoglobin 27.2 L Mean Corpuscular Hemoglobin Concent 31.0 L Red Cell Distribution Width 14.8 H Platelet Count 291 # Mean Platelet Volume 11.9 H Neutrophils % 80.7 H Lymphocytes % 12.0 L Monocytes % 5.9 Eosinophils % 0.4 Basophils % 0.2 Nucleated Red Blood Cells % 0.0 Neutrophils # 10.5 H Lymphocytes # 1.6 Monocytes # 0.8 Eosinophils # 0.1 Basophils # 0.0 Nucleated Red Blood Cells # 0.0 Sodium Level 144 Potassium Level 3.6 Chloride Level 113 H Carbon Dioxide Level 23 Anion Gap 12 Blood Urea Nitrogen 6 L Creatinine 0.91 Glucose Level 101 Calcium Level 9.3 Vancomycin Level Trough 21.1 *H Medications Medications Current Medications Acetaminophen (Tylenol Liquid) 650 mg Q6H PRN PO PAIN LEVEL 1-3 OR FEVER Last administered on 11/26/16 09:33; Admin Dose 650 MG; Start 11/21/16 at 03:00 Ondansetron HCl (Zofran Inj) 4 mg Q6H PRN IV NAUSEA AND/OR VOMITING; Start at 13:00 Morphine Sulfate (morphine) 2 mg Q4H PRN IV PAIN LEVEL 7-10; Start 11/21/16 at 13:00 Pantoprazole (Protonix Iv) 40 mg DAILY@06 IV Last administered on 11/26/16 06: 09; Admin Dose 40 MG; Start 11/22/16 at 06:00 Enoxaparin Sodium 30 mg 30 mg DAILY SC Last administered on 11/26/16 09:37; Admin Dose 30 MG; Start 11/22/16 at 09:00 Potassium Chloride/Dextrose 1,000 ml @ 60 mls/hr [id number] IV Last administered on 11/26/16 09:32; Admin Dose 80 MLS/HR; Start 11/21/16 at 16:00 Piperacillin Sod/ Tazobactam Sod (Zosyn 3.375gm/ 100 ml (Pmx)) 100 ml @ 100 mls /hr Q6 IVPB Last administered on 11/26/16 14:17; Admin Dose 100 MLS/HR; Start 11/21/16 at 20:00 Aspirin (Aspirin) 81 mg DAILY PO Last administered on 11/26/16 09:33; Admin Dose 81 MG; Start 11/22/16 at 09:00 Metoprolol Tartrate 25 mg 25 mg BID PO Last administered on 11/26/16 09:33; Admin Dose 25 MG; Start 11/21/16 at 21:00 Vancomycin HCl/ Sodium Chloride (Vancocin/NS) 150 ml @ 75 mls/hr Q12H IVPB Last administered on 11/26/16 09:30; Admin Dose 75 MLS/HR; Start 11/26/16 at 08 :00 JH WISDOM Nov 26, 2016 17:29
[2016-11-26] MEDS ORDERED: AMIKACIN IV PER PHARMACY XX SCH (17:30)
[2016-11-26] MEDS ORDERED: PEG/ELECTROLYTES 4L BTL PO ONE (18:30)
--- NOTE | 2016-11-26 18:44 | RADRPT ---
PROCEDURE: XR Abdomen 1 View. CLINICAL INDICATION: Abdominal pain TECHNIQUE: AP abdomen x-ray. COMPARISON: CT November 23, 2016 FINDINGS: The lower abdomen was not included on the obtained film. Mildly distended, gas filled stomach is id entified. Gastrostomy tube has its distal end over the stomach. Scattered gas is seen in the visuali zed bowels. No dilated loops of small bowel are observed. No organomegaly is identified. No abnormal calculi are observed. The osseous structures are intact. IMPRESSION: Lower abdomen not included on the obtained film. If characterization of the lower abdomen is needed repeat exam is recommended. Gastrostomy tube with its distal end over the stomach. Nonspecific bowel gas pattern. If further characterization of the abdomen is needed CT should be considered. RPTAT: AA .Terrence Olmos MD, Date Time Electronically viewed and signed by .Terrence Olmos MD, on 11/26/2016 18:44 .P/
--- NOTE | 2016-11-26 18:47 | RADRPT ---
PROCEDURE: XR Chest 1 view. CLINICAL INDICATION: Shortness of breath. TECHNIQUE: AP views of the chest were obtained. COMPARISON: November 24, 2016 FINDINGS: The heart is large. Calcified atherosclerosis is noted in the aorta. Tracheostomy tube is stable an d appears in grossly appropriate location. Right-sided central line and nasogastric tube are stable . Central pulmonary vascular congestion and interstitial prominence is seen in both lungs. Bilater al lower lung infiltrates, combined with small pleural effusions are observed that have mildly incre ased. Osseous structures are intact. IMPRESSION: Cardiomegaly with calcified atherosclerosis in the aorta. Central pulmonary vascular congestion and interstitial prominence in both lungs. Mild interval increase in bilateral lower lobe infiltrates, combined with small pleural effusions. RPTAT: AA .Terrence Olmos MD, Date Time Electronically viewed and signed by .Terrence Olmos MD, on 11/26/2016 18:47 .P/
--- NOTE | 2016-11-26 18:56 | CONS ---
DATE OF ADMISSION: 11/21/2016 DATE OF CONSULTATION: SUBJECTIVE: At this time, the patient cannot talk, is nonverbal. OBJECTIVE: The patient is intubated, has got a tracheostomy, has a G-tube in place. Abdomen is sig nificantly decreased in his distention. It is pretty soft and he has had some bowel movements. KUB is ordered. Nasogastric tube came out. IMPRESSION: I think that the patient is resolving and fecal impaction. His abdomen is soft. PLAN: I would recommend to give GoLYTELY 2 liters, so that we can clear the fecal impaction and ian l probably start feeding. Dictated By: LUCIE HUNTER MD NC/NTS Conf#: [id number] DID#: [id number] CC: JD POWELL MD; RICHARD GIRARD MD; LUCIE HUNTER MD;*EndCC*
[2016-11-26] MEDS ORDERED: SOD CHLORIDE 0.9% IVPB SCH (20:00)
[2016-11-26] MEDS ORDERED: AMIKACIN IVPB SCH (20:00)
[2016-11-27] VITALS (24 sets, daily range): BP systolic 107–128; BP diastolic 60–82; PULSE 51–94; RESP 16–21
[2016-11-27] MEDS: D5W + KCL 20 MEQ 1,000 ML IV SCH ×2 (04:14→16:06)
[2016-11-27] MEDS: PANTOPRAZOLE 40 MG INJ IV SCH (05:22)
[2016-11-27 06:50] LABS: ADD SCAN DIFF NO
[2016-11-27 07:00] LABS: BASOPHILS % 0.1 % (0.0-2.0); EOSINOPHILS # 0.2 10^3/ul (0.0-0.5); EOSINOPHILS % 2.5 % (0.0-7.0); HEMATOCRIT 27.3 % (42.0-52.0); HEMOGLOBIN 8.6 g/dl (14.0-18.0); LYMPHOCYTES # 1.5 10^3/ul (0.8-2.9); LYMPHOCYTES % 20.9 % (15.0-51.0); MEAN CORPUSCULAR HGB CONC 31.5 g/dl (32.0-37.0); MEAN CORPUSCULAR VOLUME 85.8 fl (82.0-101.0); MEAN PLATELET VOLUME 11.5 fl (7.4-10.4); MONOCYTE # 0.6 10^3/ul (0.3-0.9); MONOCYTES % 8.4 % (0.0-11.0); NEUTROPHIL # 4.9 10^3/ul (1.6-7.5); NEUTROPHILS % 67.7 % (39.0-77.0); PLATELET COUNT 234 10^3/UL (140-415); RED BLOOD COUNT 3.18 10^6/ul (4.70-6.10); RED CELL DISTRIBUTION WIDTH 14.6 % (11.5-14.5); WHITE BLOOD COUNT 7.3 10^3/ul (4.8-10.8)
[2016-11-27 09:06] LABS: CALCIUM 8.5 mg/dl (8.4-10.2); CREATININE 1.55 mg/dl (0.61-1.24); POTASSIUM 3.2 mmol/L (3.5-5.1)
[2016-11-27] MEDS: METOPROLOL 25 MG TAB PO SCH ×2 (10:16→21:54)
[2016-11-27] MEDS: ASPIRIN 81 MG TAB PO SCH (10:17)
[2016-11-27] MEDS: ENOXAPARIN 30 MG/0.3 ML SYG SC SCH (10:19)
--- NOTE | 2016-11-27 13:55 | CONS ---
Date/Time of Note Date/Time of Note DATE: 11/27/16 TIME: 13:53 Assessment/Plan Assessment/Plan Chief Complaint/Hosp Course IMPRESSION: 1. Positive troponin in the setting of high fevers and tachycardia, now trending negative, likely demand event type 2 infarct. NL EF by echo this admit 2. Abnormal electrocardiogram, with nonspecific ST-T and T-wave abnormalities. 3. Supraventricular tachycardia, possibly sinus tachycardia in the setting of fevers versus atrial flutter-no recurrence 4. Hypotension-overall improved but marginal. 5. Fevers. 6. Anoxic encephalopathy. 7. Chronic respiratory failure, status post tracheostomy. 8. Hypernatremia-improved 9. Hypokalemia.-improved 10. Anemia. 11. Hematuria. Recc: -Tele -Continue low dose BB as tolerated only -Continue asa -Follow volume status closely -Continue abx's and f/u cx data Problems: Consultation Date/Type/Reason Admit Date/Time Nov 21, 2016 at 02:41 Initial Consult Date 11/21/16 Type of Consultation: Cardiology Reason for Consultation positive troponin Referring Provider: RICHARD GIRARD MD Exam/Review of Systems Vital Signs Vitals Vital Signs Date Time Temp Pulse Resp B/P Pulse Ox O2 Delivery O2 Flow Rate FiO2 11/27/16 12:05 98.0 52 18 107/69 99 11/27/16 11:15 40 11/24/16 07:55 Mechanical Ventilator 11/24/16 07:00 10.0 Intake and Output 11/26/16 11/26/16 11/27/16 15:00 23:00 07:00 Intake Total 1300 ml 2250 ml Output Total 800 ml 650 ml Balance 500 ml 1600 ml Exam Review of Systems: CONSTITUTIONAL: No fevers, chills. PULMONARY: No sob CARDIOVASCULAR: No chest pain/palpitations GASTROINTESTINAL: No nausea/vomiting. GENITOURINARY: No hematuria/dysuria. MUSCULOSKELETAL: No myagias/arthalgias. PSYCHIATRIC: The patient denies depression. NEUROLOGIC:Encephalopathic Constitutional: alert Psych: no complaints Head: normocephalic ENMT: mucosa pink and moist Neck: jvd (9cm water), other (trached), supple Respiratory: diminished breath sounds (at bases/B) Cardiovascular: regular rate and rhythm Gastrointestinal: non-tender, soft Musculoskeletal: muscle tone (normal) Extremities: edema (none) Neurological: other (encephalopathic) Results Result Diagram: 11/27/1631 11/27/16 0531 Results 24 hrs Laboratory Tests Test 11/27/16 05:31 White Blood Count 7.3 # Red Blood Count 3.18 L Hemoglobin 8.6 L Hematocrit 27.3 L Mean Corpuscular Volume 85.8 Mean Corpuscular Hemoglobin 27.0 L Mean Corpuscular Hemoglobin Concent 31.5 L Red Cell Distribution Width 14.6 H Platelet Count 234 Mean Platelet Volume 11.5 H Neutrophils % 67.7 Lymphocytes % 20.9 Monocytes % 8.4 Eosinophils % 2.5 Basophils % 0.1 Nucleated Red Blood Cells % 0.0 Neutrophils # 4.9 Lymphocytes # 1.5 Monocytes # 0.6 Eosinophils # 0.2 Basophils # 0.0 Nucleated Red Blood Cells # 0.0 Sodium Level 138 Potassium Level 3.2 L Chloride Level 106 Carbon Dioxide Level 22 Anion Gap 13 Blood Urea Nitrogen 8 Creatinine 1.55 H Glucose Level 97 Calcium Level 8.5 Medications Medications Current Medications Acetaminophen (Tylenol Liquid) 650 mg Q6H PRN PO PAIN LEVEL 1-3 OR FEVER Last administered on 11/26/16 09:33; Admin Dose 650 MG; Start 11/21/16 at 03:00 Ondansetron HCl (Zofran Inj) 4 mg Q6H PRN IV NAUSEA AND/OR VOMITING; Start at 13:00 Morphine Sulfate (morphine) 2 mg Q4H PRN IV PAIN LEVEL 7-10; Start 11/21/16 at 13:00 Pantoprazole (Protonix Iv) 40 mg DAILY@06 IV Last administered on 11/27/16 05: 22; Admin Dose 40 MG; Start 11/22/16 at 06:00 Enoxaparin Sodium 30 mg 30 mg DAILY SC Last administered on 11/27/16 10:19; Admin Dose 30 MG; Start 11/22/16 at 09:00 Potassium Chloride/Dextrose (D5W + KCl 20 Meq) 1,000 ml @ 60 mls/hr [id number] IV Last administered on 11/27/16 04:14; Admin Dose 60 MLS/HR; Start 11/21/16 at 16:00 Aspirin (Aspirin) 81 mg DAILY PO Last administered on 11/27/16 10:17; Admin Dose 81 MG; Start 11/22/16 at 09:00 Metoprolol Tartrate 25 mg 25 mg BID PO Last administered on 11/26/16 20:14; Admin Dose 25 MG; Start 11/21/16 at 21:00 Vancomycin HCl/ Sodium Chloride (Vancocin/NS) 150 ml @ 75 mls/hr Q12H IVPB Last administered on 11/26/16 21:35; Admin Dose 75 MLS/HR; Start 11/26/16 at 08 :00; Status Future Hold Amikacin Sulfate AMIKACIN PER PHARMACY NOTE XX ; Start 11/26/16 at 17:30 Amikacin Sulfate/ Sodium Chloride (Amikacin/NS) 153 ml @ 102 mls/hr Q24H IVPB Last administered on 11/26/16 20:13; Admin Dose 102 MLS/HR; Start 11/26/16 at 20:00 Miscellaneous Information (*Rx Drug Level Order Reminder*) VANCO TR LEVEL PRIOR... ONCE ONCE XX ; Start 11/27/16 at 19:00; Stop 11/27/16 at 19:01 ELOINA MISHRA Nov 27, 2016 13:55
--- NOTE | 2016-11-27 14:26 | CONS ---
Date/Time of Note Date/Time of Note DATE: 11/27/16 TIME: 14:24 Assessment/Plan Assessment/Plan Additional Assessment/Plan Ventilator setting; AC of 16, tidal volume 450, PEEP of 5, 40% FiO2. Assessment recommendations; 1. Patient admitted with bowel obstruction due to fecal impaction with significant interval improvement. 2. Development of bilateral pneumonia. 3. Advanced dementia. 4. Mild renal insufficiency. Continue current supportive care. Will obtain follow-up chest x-ray in 48 hours. Consultation Date/Type/Reason Admit Date/Time Nov 21, 2016 at 02:41 Initial Consult Date 11/21/16 Type of Consultation: Pulmonary Referring Provider: RICHARD GIRARD MD 24 HR Interval Summary Free Text/Dictation Patient condition remains unchanged. Remains unresponsive. Has remained hemodynamically stable. General exam; middle-aged male, on ventilator via tracheostomy currently in no distress, awake. Exam/Review of Systems Vital Signs Vitals Vital Signs Date Time Temp Pulse Resp B/P Pulse Ox O2 Delivery O2 Flow Rate FiO2 11/27/16 12:30 51 11/27/16 12:05 98.0 18 107/69 99 11/27/16 11:15 40 11/24/16 07:55 Mechanical Ventilator 11/24/16 07:00 10.0 Intake and Output 11/26/16 11/26/16 11/27/16 15:00 23:00 07:00 Intake Total 1300 ml 2250 ml Output Total 800 ml 650 ml Balance 500 ml 1600 ml Exam HEENT exam is; supple neck, no JVD. No lymphadenopathy. Midline trachea. No thyromegaly. Patient had multiple carious teeth. Tracheostomy in place. Chest examination; diminished breath sounds throughout. S1-S2 audible, no murmurs. Regular rhythm. Abdomen examination; protuberant. G-tube in place. Bowel sounds audible. Extremity examination; patient has severe contractures involving all 4 extremities. No peripheral edema. [employer] examination; patient remains unresponsive but awake. Results Result Diagram: 11/27/16 0531 11/27/16 0531 Results 24 hrs Laboratory Tests Test 11/27/16 05:31 White Blood Count 7.3 # Red Blood Count 3.18 L Hemoglobin 8.6 L Hematocrit 27.3 L Mean Corpuscular Volume 85.8 Mean Corpuscular Hemoglobin 27.0 L Mean Corpuscular Hemoglobin Concent 31.5 L Red Cell Distribution Width 14.6 H Platelet Count 234 Mean Platelet Volume 11.5 H Neutrophils % 67.7 Lymphocytes % 20.9 Monocytes % 8.4 Eosinophils % 2.5 Basophils % 0.1 Nucleated Red Blood Cells % 0.0 Neutrophils # 4.9 Lymphocytes # 1.5 Monocytes # 0.6 Eosinophils # 0.2 Basophils # 0.0 Nucleated Red Blood Cells # 0.0 Sodium Level 138 Potassium Level 3.2 L Chloride Level 106 Carbon Dioxide Level 22 Anion Gap 13 Blood Urea Nitrogen 8 Creatinine 1.55 H Glucose Level 97 Calcium Level 8.5 Medications Medications Current Medications Acetaminophen (Tylenol Liquid) 650 mg Q6H PRN PO PAIN LEVEL 1-3 OR FEVER Last administered on 11/26/16 09:33; Admin Dose 650 MG; Start 11/21/16 at 03:00 Ondansetron HCl (Zofran Inj) 4 mg Q6H PRN IV NAUSEA AND/OR VOMITING; Start at 13:00 Morphine Sulfate (morphine) 2 mg Q4H PRN IV PAIN LEVEL 7-10; Start 11/21/16 at 13:00 Pantoprazole (Protonix Iv) 40 mg DAILY@06 IV Last administered on 11/27/16 05: 22; Admin Dose 40 MG; Start 11/22/16 at 06:00 Enoxaparin Sodium 30 mg 30 mg DAILY SC Last administered on 11/27/16 10:19; Admin Dose 30 MG; Start 11/22/16 at 09:00 Potassium Chloride/Dextrose (D5W + KCl 20 Meq) 1,000 ml @ 60 mls/hr [id number] IV Last administered on 11/27/16 04:14; Admin Dose 60 MLS/HR; Start 11/21/16 at 16:00 Aspirin (Aspirin) 81 mg DAILY PO Last administered on 11/27/16 10:17; Admin Dose 81 MG; Start 11/22/16 at 09:00 Metoprolol Tartrate 25 mg 25 mg BID PO Last administered on 11/26/16 20:14; Admin Dose 25 MG; Start 11/21/16 at 21:00 Vancomycin HCl/ Sodium Chloride (Vancocin/NS) 150 ml @ 75 mls/hr Q12H IVPB Last administered on 11/26/16 21:35; Admin Dose 75 MLS/HR; Start 11/26/16 at 08 :00; Status Future Hold Amikacin Sulfate AMIKACIN PER PHARMACY NOTE XX ; Start 11/26/16 at 17:30 Amikacin Sulfate/ Sodium Chloride (Amikacin/NS) 153 ml @ 102 mls/hr Q24H IVPB Last administered on 11/26/16t 20:13; Admin Dose 102 MLS/HR; Start 11/26/16 at 20:00 Miscellaneous Information (*Rx Drug Level Order Reminder*) VANCO TR LEVEL PRIOR... ONCE ONCE XX ; Start 11/27/16 at 19:00; Stop 11/27/16 at 19:01 MI JEFFERS Nov 27, 2016 14:26
--- NOTE | 2016-11-27 14:42 | CONS ---
Date/Time of Note Date/Time of Note DATE: 11/27/16 TIME: 14:42 Assessment/Plan Assessment/Plan Chief Complaint/Hosp Course SUBJECTIVE: No acute changes. No fevers. The patient is lying comfortably in bed. He is nonverbal, non-communicative. INDWELLINGS: Trach, PEG, NG tube, Charles. ANTIMICROBIALS: 1. Vancomycin. 2. Zosyn. PHYSICAL EXAMINATION: GENERAL: Chronically ill-appearing, middle-aged, vegetative man who is in no distress. HEENT: Head atraumatic, normocephalic. Sclerae anicteric. Buccal mucosa dry. NECK: Supple. CHEST: Rise symmetrical. Breath sounds diminished to bases. HEART: S1, S2. ABDOMEN: Soft. Bowel tones hypoactive. EXTREMITIES: No cyanosis. ASSESSMENT: 1. Resolving sepsis. 2. Small-bowel obstruction likely secondary to severe fecal impaction. 3. Chronic respiratory failure. 4. History of seizure disorder. 5. Persistent vegetative state. PLAN: The patient remains stable. Continue abx, follow GI recommendations, vent per pulmonary. DW staff Problems: Consultation Date/Type/Reason Admit Date/Time Nov 21, 2016 at 02:41 Initial Consult Date 11/21/16 Type of Consultation: id Referring Provider: RICHARD GIRARD MD Exam/Review of Systems Vital Signs Vitals Vital Signs Date Time Temp Pulse Resp B/P Pulse Ox O2 Delivery O2 Flow Rate FiO2 11/27/16 12:30 51 11/27/16 12:05 98.0 18 107/69 99 11/27/16 11:15 40 11/24/16 07:55 Mechanical Ventilator 11/24/16 07:00 10.0 Intake and Output 11/26/16 11/26/16 11/27/16 15:00 23:00 07:00 Intake Total 1300 ml 2250 ml Output Total 800 ml 650 ml Balance 500 ml 1600 ml Results Result Diagram: 11/27/1653011/27/16530 Results 24 hrs Laboratory Tests Test 11/27/16 05:31 White Blood Count 7.3 # Red Blood Count 3.18 L Hemoglobin 8.6 L Hematocrit 27.3 L Mean Corpuscular Volume 85.8 Mean Corpuscular Hemoglobin 27.0 L Mean Corpuscular Hemoglobin Concent 31.5 L Red Cell Distribution Width 14.6 H Platelet Count 234 Mean Platelet Volume 11.5 H Neutrophils % 67.7 Lymphocytes % 20.9 Monocytes % 8.4 Eosinophils % 2.5 Basophils % 0.1 Nucleated Red Blood Cells % 0.0 Neutrophils # 4.9 Lymphocytes # 1.5 Monocytes # 0.6 Eosinophils # 0.2 Basophils # 0.0 Nucleated Red Blood Cells # 0.0 Sodium Level 138 Potassium Level 3.2 L Chloride Level 106 Carbon Dioxide Level 22 Anion Gap 13 Blood Urea Nitrogen 8 Creatinine 1.55 H Glucose Level 97 Calcium Level 8.5 Medications Medications Current Medications Acetaminophen (Tylenol Liquid) 650 mg Q6H PRN PO PAIN LEVEL 1-3 OR FEVER Last administered on 11/26/16 09:33; Admin Dose 650 MG; Start 11/21/16 at 03:00 Ondansetron HCl (Zofran Inj) 4 mg Q6H PRN IV NAUSEA AND/OR VOMITING; Start at 13:00 Morphine Sulfate (morphine) 2 mg Q4H PRN IV PAIN LEVEL 7-10; Start 11/21/16 at 13:00 Pantoprazole (Protonix Iv) 40 mg DAILY@06 IV Last administered on 11/27/16 05: 22; Admin Dose 40 MG; Start 11/22/16 at 06:00 Enoxaparin Sodium 30 mg 30 mg DAILY SC Last administered on 11/27/16 10:19; Admin Dose 30 MG; Start 11/22/16 at 09:00 Potassium Chloride/Dextrose (D5W + KCl 20 Meq) 1,000 ml @ 60 mls/hr [id number] IV Last administered on 11/27/16 04:14; Admin Dose 60 MLS/HR; Start 11/21/16 at 16:00 Aspirin (Aspirin) 81 mg DAILY PO Last administered on 11/27/16 10:17; Admin Dose 81 MG; Start 11/22/16 at 09:00 Metoprolol Tartrate 25 mg 25 mg BID PO Last administered on 11/26/16 20:14; Admin Dose 25 MG; Start 11/21/16 at 21:00 Vancomycin HCl/ Sodium Chloride (Vancocin/NS) 150 ml @ 75 mls/hr Q12H IVPB Last administered on 11/26/16 21:35; Admin Dose 75 MLS/HR; Start 11/26/16 at 08 :00; Status Future Hold Amikacin Sulfate AMIKACIN PER PHARMACY NOTE XX ; Start 11/26/16 at 17:30 Amikacin Sulfate/ Sodium Chloride (Amikacin/NS) 153 ml @ 102 mls/hr Q24H IVPB Last administered on 11/26/16t 20:13; Admin Dose 102 MLS/HR; Start 11/26/16 at 20:00 Miscellaneous Information (*Rx Drug Level Order Reminder*) VANCO TR LEVEL PRIOR... ONCE ONCE XX ; Start 11/27/16 at 19:00; Stop 11/27/16 at 19:01 YURY YOON NP Nov 27, 2016 14:42
[2016-11-27] MEDS ORDERED: POTASSIUM CHLORIDE (SR) 20 MEQ TAB PO STA (15:23)
--- NOTE | 2016-11-27 15:23 | PN ---
Date/Time of Note Date/Time of Note DATE: 11/27/16 TIME: 15:18 Assessment/Plan VTE Prophylaxis VTE Prophylaxis Intervention: LMWH Lines/Catheters IV C[facility]ter Type (from [facility] Central Line Urinary Cath still in place: Yes Reason Cath still needed: urinary retention Assessment/Plan Assessment/Plan - Hypokalemia- replet K, am labs - Sepsis of unknown etiology, with shock, resolving, continue broad-spectrum antibiotics. Dr. Matias is following in infection disease consultation. - Possible small-bowel obstruction vs ileus. Dr. Murcia is following in general surgery consultation. Dr. Walton is following in gastroenterology consultation - Acute kidney injury with electrolyte imbalances, resolved. Continue IV fluids. Monitor electrolytes. Dr. Aceves is following in nephrology consultation. - Elevated troponin, most likely secondary to demand ischemia. Trending down. Dr. Flor is following in cardiology consultation. - Ventilator-dependent respiratory failure. - Dysphagia with G-tube. - Seizure disorder. Continue Keppra. - Anoxic encephalopathy, status post cardiac arrest. - Schizophrenia by history. Continue Lovenox for deep venous thrombosis prophylaxis and Pepcid for peptic ulcer disease prophylaxis. Further recommendations based on clinical course. Plan of care discussed with Dr. Courtney. Subjective 24 Hr Interval Summary Constitutional: requiring IVF, requiring O2 Exam/Review of Systems Vital Signs Vitals Vital Signs Date Time Temp Pulse Resp B/P Pulse Ox O2 Delivery O2 Flow Rate FiO2 11/27/16 12:30 51 11/27/16 12:05 98.0 18 107/69 99 11/27/16 11:15 40 11/24/16 07:55 Mechanical Ventilator 11/24/16 07:00 10.0 Intake and Output 11/26/16 11/26/16 11/27/16 15:00 23:00 07:00 Intake Total 1300 ml 2250 ml Output Total 800 ml 650 ml Balance 500 ml 1600 ml Exam Constitutional: non-verbal Respiratory: normal air movement Cardiovascular: nl pulses Gastrointestinal: non-tender, other (gt intact), soft Results Result Diagram: 11/27/16 0531 11/27/16 0531 Results 24 hrs Laboratory Tests Test 11/27/16 05:31 White Blood Count 7.3 # Red Blood Count 3.18 L Hemoglobin 8.6 L Hematocrit 27.3 L Mean Corpuscular Volume 85.8 Mean Corpuscular Hemoglobin 27.0 L Mean Corpuscular Hemoglobin Concent 31.5 L Red Cell Distribution Width 14.6 H Platelet Count 234 Mean Platelet Volume 11.5 H Neutrophils % 67.7 Lymphocytes % 20.9 Monocytes % 8.4 Eosinophils % 2.5 Basophils % 0.1 Nucleated Red Blood Cells % 0.0 Neutrophils # 4.9 Lymphocytes # 1.5 Monocytes # 0.6 Eosinophils # 0.2 Basophils # 0.0 Nucleated Red Blood Cells # 0.0 Sodium Level 138 Potassium Level 3.2 L Chloride Level 106 Carbon Dioxide Level 22 Anion Gap 13 Blood Urea Nitrogen 8 Creatinine 1.55 H Glucose Level 97 Calcium Level 8.5 Medications Medications Current Medications Acetaminophen (Tylenol Liquid) 650 mg Q6H PRN PO PAIN LEVEL 1-3 OR FEVER Last administered on 11/26/16 09:33; Admin Dose 650 MG; Start 11/21/16 at 03:00 Ondansetron HCl (Zofran Inj) 4 mg Q6H PRN IV NAUSEA AND/OR VOMITING; Start at 13:00 Morphine Sulfate (morphine) 2 mg Q4H PRN IV PAIN LEVEL 7-10; Start 11/21/16 at 13:00 Pantoprazole (Protonix Iv) 40 mg DAILY@06 IV Last administered on 11/27/16 05: 22; Admin Dose 40 MG; Start 11/22/16 at 06:00 Enoxaparin Sodium 30 mg 30 mg DAILY SC Last administered on 11/27/16 10:19; Admin Dose 30 MG; Start 11/22/16 at 09:00 Potassium Chloride/Dextrose (D5W + KCl 20 Meq) 1,000 ml @ 60 mls/hr [id number] IV Last administered on 11/27/16 04:14; Admin Dose 60 MLS/HR; Start 11/21/16 at 16:00 Aspirin (Aspirin) 81 mg DAILY PO Last administered on 11/27/16 10:17; Admin Dose 81 MG; Start 11/22/16 at 09:00 Metoprolol Tartrate 25 mg 25 mg BID PO Last administered on 11/26/16 20:14; Admin Dose 25 MG; Start 11/21/16 at 21:00 Vancomycin HCl/ Sodium Chloride (Vancocin/NS) 150 ml @ 75 mls/hr Q12H IVPB Last administered on 11/26/16 21:35; Admin Dose 75 MLS/HR; Start 11/26/16 at 08 :00; Status Future Hold Amikacin Sulfate AMIKACIN PER PHARMACY NOTE XX ; Start 11/26/16 at 17:30 Amikacin Sulfate/ Sodium Chloride (Amikacin/NS) 153 ml @ 102 mls/hr Q24H IVPB Last administered on 11/26/16 20:13; Admin Dose 102 MLS/HR; Start 11/26/16 at 20:00 Miscellaneous Information (*Rx Drug Level Order Reminder*) VANCO TR LEVEL PRIOR... ONCE ONCE XX ; Start 11/27/16 at 19:00; Stop 11/27/16 at 19:01 SHELLEY HERNANDEZ Nov 27, 2016 15:23
--- NOTE | 2016-11-27 19:12 | CONS ---
Date/Time of Note Date/Time of Note DATE: 11/27/16 TIME: 19:09 Assessment/Plan Assessment/Plan Additional Assessment/Plan 1. Acute kidney injury secondary to severe prerenal azotemia and ischemic acute tubular necrosis from a bowel obstruction. 2. Severe hypernatremia secondary to a large free water deficit. 3. Hypokalemia. 4. Elevated troponin secondary to possible demand ischemia. 5. Sepsis of unknown etiology. 6. Possible small-bowel obstruction from fecal impaction. 7. History of ventilator-dependent respiratory failure secondary to anoxic encephalopathy from cardiac arrest, status post tracheostomy. 8. History of dysphagia, status post G-tube placement. 9. History of seizure disorder. 10. History of schizophrenia. 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 PLAN: continue IVF D5W with KCL - decrease rate to 60cc/hr Cr 1.55 bumped today, will monitor, worried for amikacin toxicity IV abx per PMD will follow up Consultation Date/Type/Reason Admit Date/Time Nov 21, 2016 at 02:41 Initial Consult Date 11/21/16 Type of Consultation: NEPHROLOGY Referring Provider: RICHARD GIRARD MD Exam/Review of Systems Vital Signs Vitals Vital Signs Date Time Temp Pulse Resp B/P Pulse Ox O2 Delivery O2 Flow Rate FiO2 11/27/16 17:35 59 11/27/16 17:10 16 99 40 11/27/16 16:28 98.6 109/60 11/24/16 07:55 Mechanical Ventilator 11/24/16 07:00 10.0 Intake and Output 11/26/16 11/26/16 11/27/16 15:00 23:00 07:00 Intake Total 1300 ml 2250 ml Output Total 800 ml 650 ml Balance 500 ml 1600 ml Results Result Diagram: 11/27/16 0531 11/27/16 0531 Results 24 hrs Laboratory Tests Test 11/27/16 05:31 White Blood Count 7.3 # Red Blood Count 3.18 L Hemoglobin 8.6 L Hematocrit 27.3 L Mean Corpuscular Volume 85.8 Mean Corpuscular Hemoglobin 27.0 L Mean Corpuscular Hemoglobin Concent 31.5 L Red Cell Distribution Width 14.6 H Platelet Count 234 Mean Platelet Volume 11.5 H Neutrophils % 67.7 Lymphocytes % 20.9 Monocytes % 8.4 Eosinophils % 2.5 Basophils % 0.1 Nucleated Red Blood Cells % 0.0 Neutrophils # 4.9 Lymphocytes # 1.5 Monocytes # 0.6 Eosinophils # 0.2 Basophils # 0.0 Nucleated Red Blood Cells # 0.0 Sodium Level 138 Potassium Level 3.2 L Chloride Level 106 Carbon Dioxide Level 22 Anion Gap 13 Blood Urea Nitrogen 8 Creatinine 1.55 H Glucose Level 97 Calcium Level 8.5 Medications Medications Current Medications Acetaminophen (Tylenol Liquid) 650 mg Q6H PRN PO PAIN LEVEL 1-3 OR FEVER Last administered on 11/26/16 09:33; Admin Dose 650 MG; Start 11/21/16 at 03:00 Ondansetron HCl (Zofran Inj) 4 mg Q6H PRN IV NAUSEA AND/OR VOMITING; Start at 13:00 Morphine Sulfate (morphine) 2 mg Q4H PRN IV PAIN LEVEL 7-10; Start 11/21/16 at 13:00 Pantoprazole (Protonix Iv) 40 mg DAILY@06 IV Last administered on 11/27/16 05: 22; Admin Dose 40 MG; Start 11/22/16 at 06:00 Enoxaparin Sodium 30 mg 30 mg DAILY SC Last administered on 11/27/16 10:19; Admin Dose 30 MG; Start 11/22/16 at 09:00 Potassium Chloride/Dextrose (D5W + KCl 20 Meq) 1,000 ml @ 60 mls/hr [id number] IV Last administered on 11/27/16 16:06; Admin Dose 60 MLS/HR; Start 11/21/16 at 16:00 Aspirin (Aspirin) 81 mg DAILY PO Last administered on 11/27/16 10:17; Admin Dose 81 MG; Start 11/22/16 at 09:00 Metoprolol Tartrate (Lopressor) 25 mg BID PO Last administered on 11/26/16 20: 14; Admin Dose 25 MG; Start 11/21/16 at 21:00 Amikacin Sulfate AMIKACIN PER PHARMACY NOTE XX ; Start 11/26/16 at 17:30 Amikacin Sulfate 750 mg/Sodium Chloride 153 ml @ 153 mls/hr Q48H IVPB ; Start 11/28/16 at 20:00 Vancomycin HCl (Vancocin) 250 ml @ 125 mls/hr Q24H IVPB ; Start 11/27/16 at 21: 00 UMM MANNING MD Nov 27, 2016 19:12
--- NOTE | 2016-11-27 20:23 | CONS ---
DATE OF ADMISSION: 11/21/2016 DATE OF CONSULTATION: 11/27/2016 HISTORY OF PRESENT ILLNESS: The patient is unable to give any history. He is nonverbal, status pos t tracheostomy. OBJECTIVE: On examination, he has a G-tube in place. Abdomen is soft. He was originally admitted with history of ileus and bowel obstruction due to fecal impaction. He was given GoLYTELY and he wa s given enemas, and the bowel obstruction has resolved. LABORATORY WORKUP: Hemoglobin is 8.6, WBC , potassium 3.2. DEFINITIVE IMPRESSION: Resolved fecal impaction with positive bowel obstruction. PLAN: Start the feeding through the G-tube. Dictated By: LUCIE BEAR/CY Conf#: [id number] DID#: [id number]
[2016-11-27] MEDS: VANCOMYCIN 1 GM in NS 250 ML IVPB SCH (21:54)
[2016-11-28] VITALS (25 sets, daily range): BP systolic 93–141; BP diastolic 57–81; PULSE 52–87; RESP 16–28
[2016-11-28] MEDS: PANTOPRAZOLE 40 MG INJ IV SCH ×2 (02:00→05:02)
[2016-11-28] MEDS: D5W + KCL 20 MEQ 1,000 ML IV SCH ×2 (03:52→23:45)
[2016-11-28 06:14] LABS: ADD SCAN DIFF NO
[2016-11-28 06:20] LABS: BASOPHILS % 0.2 % (0.0-2.0); EOSINOPHILS # 0.2 10^3/ul (0.0-0.5); EOSINOPHILS % 3.2 % (0.0-7.0); HEMATOCRIT 29.4 % (42.0-52.0); HEMOGLOBIN 9.1 g/dl (14.0-18.0); LYMPHOCYTES # 1.7 10^3/ul (0.8-2.9); LYMPHOCYTES % 27.8 % (15.0-51.0); MEAN CORPUSCULAR HEMOGLOBIN 26.6 pg (29.0-33.0); MEAN PLATELET VOLUME 11.4 fl (7.4-10.4); MONOCYTE # 0.6 10^3/ul (0.3-0.9); MONOCYTES % 9.2 % (0.0-11.0); NEUTROPHIL # 3.6 10^3/ul (1.6-7.5); NEUTROPHILS % 58.8 % (39.0-77.0); PLATELET COUNT 269 10^3/UL (140-415); RED BLOOD COUNT 3.42 10^6/ul (4.70-6.10); RED CELL DISTRIBUTION WIDTH 14.4 % (11.5-14.5); WHITE BLOOD COUNT 6.2 10^3/ul (4.8-10.8)
[2016-11-28 06:53] LABS: CALCIUM 9.2 mg/dl (8.4-10.2); CREATININE 1.74 mg/dl (0.61-1.24); POTASSIUM 3.5 mmol/L (3.5-5.1)
[2016-11-28] MEDS: METOPROLOL 25 MG TAB PO SCH ×2 (09:00→21:09)
[2016-11-28] MEDS: ASPIRIN 81 MG TAB PO SCH (09:57)
[2016-11-28] MEDS: ENOXAPARIN 30 MG/0.3 ML SYG SC SCH (10:00)
--- NOTE | 2016-11-28 11:02 | CONS ---
Date/Time of Note Date/Time of Note DATE: 11/28/16 TIME: 10:59 Assessment/Plan Assessment/Plan Additional Assessment/Plan 1. Positive troponin in the setting of high fevers and tachycardia, now trending negative, likely demand event type 2 infarct. NL EF by echo this admit - no intervention planned - no intervention planned now. 2. Abnormal electrocardiogram, with nonspecific ST-T and T-wave abnormalities- chronic. 3. Supraventricular tachycardia, possibly sinus tachycardia in the setting of fevers versus atrial flutter - now in sinus at 60s. 4. Hypotension-overall improved but marginal. Better now. 5. Fevers - Rx with anti-bx. 6. Anoxic encephalopathy - unchanged. 7. Chronic respiratory failure, status post tracheostomy - stable. 8. Hypernatremia-improved 9. Hypokalemia.-improved 10. Anemia. 11. Hematuria. Consultation Date/Type/Reason Admit Date/Time Nov 21, 2016 at 02:41 Initial Consult Date 11/21/16 Type of Consultation: NEPHROLOGY Referring Provider: RICHARD GIRARD MD 24 HR Interval Summary Free Text/Dictation No acute change - BP in good range - con't resp rx. ROS: No fever, no chills, no nausea, no vomiting, no diarrhea/constipation No recent weight changes No chest pain, no PND, no orthopnea No dizziness, blurred vision No thirst, no heat or cold intolerance (per nurse) Exam/Review of Systems Vital Signs Vitals Vital Signs Date Time Temp Pulse Resp B/P Pulse Ox O2 Delivery O2 Flow Rate FiO2 11/28/16 09:05 74 16 99 40 11/28/16 07:29 98.3 112/64 11/24/16 07:55 Mechanical Ventilator 11/24/16 07:00 10.0 Intake and Output 11/27/16 11/27/16 11/28/16 15:00 23:00 07:00 Intake Total 100 ml 1600 ml Output Total 1000 ml 1000 ml Balance -900 ml 600 ml Exam General: WN/WD/NAD, AOx 0 HEENT: Unicetric/atraumatic/EOMI (does not follow commands) NECK: trach Lymph: no lymphadenopathy HEART: regular with no S3, II/ systolic murmur at apex LUNGS: Coarse sounds ABD: soft, NT, ND, +BS : Intact Neuro: non focal SKIN: chronic changes EXT: trace edema Results Result Diagram: 11/28/16 0525 11/28/16 0525 Results 24 hrs Laboratory Tests Test 11/28/16 05:25 White Blood Count 6.2 Red Blood Count 3.42 L Hemoglobin 9.1 L Hematocrit 29.4 L Mean Corpuscular Volume 86.0 Mean Corpuscular Hemoglobin 26.6 L Mean Corpuscular Hemoglobin Concent 31.0 L Red Cell Distribution Width 14.4 Platelet Count 269 Mean Platelet Volume 11.4 H Neutrophils % 58.8 Lymphocytes % 27.8 Monocytes % 9.2 Eosinophils % 3.2 Basophils % 0.2 Nucleated Red Blood Cells % 0.0 Neutrophils # 3.6 Lymphocytes # 1.7 Monocytes # 0.6 Eosinophils # 0.2 Basophils # 0.0 Nucleated Red Blood Cells # 0.0 Sodium Level 141 Potassium Level 3.5 Chloride Level 111 H Carbon Dioxide Level 19 L Anion Gap 15 Blood Urea Nitrogen 8 Creatinine 1.74 H Glucose Level 100 Calcium Level 9.2 Medications Medications Current Medications Acetaminophen (Tylenol Liquid) 650 mg Q6H PRN PO PAIN LEVEL 1-3 OR FEVER Last administered on 11/26/16 09:33; Admin Dose 650 MG; Start 11/21/16 at 03:00 Ondansetron HCl (Zofran Inj) 4 mg Q6H PRN IV NAUSEA AND/OR VOMITING; Start at 13:00 Morphine Sulfate (morphine) 2 mg Q4H PRN IV PAIN LEVEL 7-10; Start 11/21/16 at 13:00 Pantoprazole (Protonix Iv) 40 mg DAILY@06 IV Last administered on 11/28/16 05: 02; Admin Dose 40 MG; Start 11/22/16 at 06:00 Enoxaparin Sodium 30 mg 30 mg DAILY SC Last administered on 11/28/16 10:00; Admin Dose 30 MG; Start 11/22/16 at 09:00 Potassium Chloride/Dextrose (D5W + KCl 20 Meq) 1,000 ml @ 60 mls/hr [id number] IV Last administered on 11/28/16 03:52; Admin Dose 60 MLS/HR; Start 11/21/16 at 16:00 Aspirin (Aspirin) 81 mg DAILY PO Last administered on 11/28/16 09:57; Admin Dose 81 MG; Start 11/22/16 at 09:00 Metoprolol Tartrate (Lopressor) 25 mg BID PO Last administered on 11/27/16 21: 54; Admin Dose 25 MG; Start 11/21/16 at 21:00 Amikacin Sulfate AMIKACIN PER PHARMACY NOTE XX ; Start 11/26/16 at 17:30 Amikacin Sulfate 750 mg/Sodium Chloride 153 ml @ 153 mls/hr Q48H IVPB ; Start 11/28/16 at 20:00 Vancomycin HCl (Vancocin) 250 ml @ 125 mls/hr Q24H IVPB Last administered on 21:54; Admin Dose 125 MLS/HR; Start 11/27/16 at 21:00 FABIOLA WATERS MD Nov 28, 2016 11:01
--- NOTE | 2016-11-28 12:21 | CONS ---
Date/Time of Note Date/Time of Note DATE: 11/28/16 TIME: 12:19 Assessment/Plan Assessment/Plan Additional Assessment/Plan tolerating gt feeding ileus/obs ressolved Consultation Date/Type/Reason Admit Date/Time Nov 21, 2016 at 02:41 Initial Consult Date 11/21/16 Type of Consultation: NEPHROLOGY Referring Provider: RICHARD GIRARD MD 24 HR Interval Summary Free Text/Dictation appears stable non verbal Exam/Review of Systems Vital Signs Vitals Vital Signs Date Time Temp Pulse Resp B/P Pulse Ox O2 Delivery O2 Flow Rate FiO2 11/28/16 11:54 98.4 63 20 115/81 98 11/28/16 11:46 40 11/24/16 07:55 Mechanical Ventilator 11/24/16 07:00 10.0 Intake and Output 11/27/16 11/27/16 11/28/16 15:00 23:00 07:00 Intake Total 100 ml 1600 ml Output Total 1000 ml 1000 ml Balance -900 ml 600 ml Exam abd soft Results Result Diagram: 11/28/16 0525 11/28/16 0525 Results 24 hrs Laboratory Tests Test 11/28/16 05:25 White Blood Count 6.2 Red Blood Count 3.42 L Hemoglobin 9.1 L Hematocrit 29.4 L Mean Corpuscular Volume 86.0 Mean Corpuscular Hemoglobin 26.6 L Mean Corpuscular Hemoglobin Concent 31.0 L Red Cell Distribution Width 14.4 Platelet Count 269 Mean Platelet Volume 11.4 H Neutrophils % 58.8 Lymphocytes % 27.8 Monocytes % 9.2 Eosinophils % 3.2 Basophils % 0.2 Nucleated Red Blood Cells % 0.0 Neutrophils # 3.6 Lymphocytes # 1.7 Monocytes # 0.6 Eosinophils # 0.2 Basophils # 0.0 Nucleated Red Blood Cells # 0.0 Sodium Level 141 Potassium Level 3.5 Chloride Level 111 H Carbon Dioxide Level 19 L Anion Gap 15 Blood Urea Nitrogen 8 Creatinine 1.74 H Glucose Level 100 Calcium Level 9.2 Medications Medications Current Medications Acetaminophen (Tylenol Liquid) 650 mg Q6H PRN PO PAIN LEVEL 1-3 OR FEVER Last administered on 11/26/16t 09:33; Admin Dose 650 MG; Start 11/21/16 at 03:00 Ondansetron HCl (Zofran Inj) 4 mg Q6H PRN IV NAUSEA AND/OR VOMITING; Start at 13:00 Morphine Sulfate (morphine) 2 mg Q4H PRN IV PAIN LEVEL 7-10; Start 11/21/16 at 13:00 Pantoprazole (Protonix Iv) 40 mg DAILY@06 IV Last administered on 11/28/16 05: 02; Admin Dose 40 MG; Start 11/22/16 at 06:00 Enoxaparin Sodium 30 mg 30 mg DAILY SC Last administered on 11/28/16 10:00; Admin Dose 30 MG; Start 11/22/16 at 09:00 Potassium Chloride/Dextrose (D5W + KCl 20 Meq) 1,000 ml @ 60 mls/hr [id number] IV Last administered on 11/28/16 03:52; Admin Dose 60 MLS/HR; Start 11/21/16 at 16:00 Aspirin (Aspirin) 81 mg DAILY PO Last administered on 11/28/16 09:57; Admin Dose 81 MG; Start 11/22/16 at 09:00 Metoprolol Tartrate (Lopressor) 25 mg BID PO Last administered on 11/27/16 21: 54; Admin Dose 25 MG; Start 11/21/16 at 21:00 Amikacin Sulfate AMIKACIN PER PHARMACY NOTE XX ; Start 11/26/16 at 17:30 Amikacin Sulfate 750 mg/Sodium Chloride 153 ml @ 153 mls/hr Q48H IVPB ; Start 11/28/16 at 20:00; Status Future Hold Vancomycin HCl (Vancocin) 250 ml @ 125 mls/hr Q24H IVPB Last administered on 21:54; Admin Dose 125 MLS/HR; Start 11/27/16 at 21:00 Miscellaneous Information (*Rx Drug Level Order Reminder*) AMIKACIN TROUGH @ 1, 900 ON... ONCE ONCE XX ; Start 11/28/16 at 19:00; Stop 11/28/16 at 19:01 Miscellaneous Information (*Rx Drug Level Order Reminder*) VANCO TROUGH @ 2, 000 ON... ONCE ONCE XX ; Start 11/29/16 at 20:00; Stop 11/29/16 at 20:01 LUCIE HUNTER MD Nov 28, 2016 12:21
--- NOTE | 2016-11-28 12:43 | CONS ---
Date/Time of Note Date/Time of Note DATE: 11/28/16 TIME: 12:41 Assessment/Plan Assessment/Plan Additional Assessment/Plan Ventilator setting; AC of 16, tidal volume 450, PEEP of 5, 40% FiO2. Assessment recommendations; 1. Patient admitted with abdominal distention due to fecal impaction, with interval improvement. However patient exhibited bilateral pneumonia. 2. Advanced dementia. 3. Chronic respiratory failure. 4. Gradually increasing serum creatinine. Continue current treatment. Obtain follow-up chest x-ray. 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 Overall prognosis remains poor. Consultation Date/Type/Reason Admit Date/Time Nov 21, 2016 at 02:41 Initial Consult Date 11/21/16 Type of Consultation: Pulmonary Referring Provider: RICHARD GIRARD MD 24 HR Interval Summary Free Text/Dictation Patient condition remains unchanged. Remains completely unresponsive to any commands. Patient however remains awake. Has remained hemodynamically stable. General exam; middle-aged male, on ventilator via tracheostomy currently in no distress. Exam/Review of Systems Vital Signs Vitals Vital Signs Date Time Temp Pulse Resp B/P Pulse Ox O2 Delivery O2 Flow Rate FiO2 11/28/16 12:36 64 11/28/16 11:54 98.4 20 115/81 98 11/28/16 11:46 40 11/24/16 07:55 Mechanical Ventilator 11/24/16 07:00 10.0 Intake and Output 11/27/16 11/27/16 11/28/16 15:00 23:00 07:00 Intake Total 100 ml 1600 ml Output Total 1000 ml 1000 ml Balance -900 ml 600 ml Exam HEENT exam; supple neck, no JVD. No lymphadenopathy. Midline trachea. No thyromegaly. Tracheostomy placed. Patient has multiple carious teeth. Chest examined; diminished breath sounds throughout. S1-S2 audible, no murmurs. Regular rhythm. Abdomen exam is; soft, G-tube in place. Bowel sounds audible. No organomegaly. Extremity exam is; no peripheral edema. COLLEGE ADMINISTRATOR examination; patient remains unresponsive. Results Result Diagram: 11/28/16 0525 11/28/16 0525 Results 24 hrs Laboratory Tests Test 11/28/16 05:25 White Blood Count 6.2 Red Blood Count 3.42 L Hemoglobin 9.1 L Hematocrit 29.4 L Mean Corpuscular Volume 86.0 Mean Corpuscular Hemoglobin 26.6 L Mean Corpuscular Hemoglobin Concent 31.0 L Red Cell Distribution Width 14.4 Platelet Count 269 Mean Platelet Volume 11.4 H Neutrophils % 58.8 Lymphocytes % 27.8 Monocytes % 9.2 Eosinophils % 3.2 Basophils % 0.2 Nucleated Red Blood Cells % 0.0 Neutrophils # 3.6 Lymphocytes # 1.7 Monocytes # 0.6 Eosinophils # 0.2 Basophils # 0.0 Nucleated Red Blood Cells # 0.0 Sodium Level 141 Potassium Level 3.5 Chloride Level 111 H Carbon Dioxide Level 19 L Anion Gap 15 Blood Urea Nitrogen 8 Creatinine 1.74 H Glucose Level 100 Calcium Level 9.2 Medications Medications Current Medications Acetaminophen (Tylenol Liquid) 650 mg Q6H PRN PO PAIN LEVEL 1-3 OR FEVER Last administered on 11/26/16 09:33; Admin Dose 650 MG; Start 11/21/16 at 03:00 Ondansetron HCl (Zofran Inj) 4 mg Q6H PRN IV NAUSEA AND/OR VOMITING; Start at 13:00 Morphine Sulfate (morphine) 2 mg Q4H PRN IV PAIN LEVEL 7-10; Start 11/21/16 at 13:00 Pantoprazole (Protonix Iv) 40 mg DAILY@06 IV Last administered on 11/28/16 05: 02; Admin Dose 40 MG; Start 11/22/16 at 06:00 Enoxaparin Sodium 30 mg 30 mg DAILY SC Last administered on 11/28/16 10:00; Admin Dose 30 MG; Start 11/22/16 at 09:00 Potassium Chloride/Dextrose (D5W + KCl 20 Meq) 1,000 ml @ 60 mls/hr [id number] IV Last administered on 11/28/16 03:52; Admin Dose 60 MLS/HR; Start 11/21/16 at 16:00 Aspirin (Aspirin) 81 mg DAILY PO Last administered on 11/28/16 09:57; Admin Dose 81 MG; Start 11/22/16 at 09:00 Metoprolol Tartrate (Lopressor) 25 mg BID PO Last administered on 11/27/16 21: 54; Admin Dose 25 MG; Start 11/21/16 at 21:00 Amikacin Sulfate AMIKACIN PER PHARMACY NOTE XX ; Start 11/26/16 at 17:30 Amikacin Sulfate 750 mg/Sodium Chloride 153 ml @ 153 mls/hr Q48H IVPB ; Start 11/28/16 at 20:00; Status Future Hold Vancomycin HCl (Vancocin) 250 ml @ 125 mls/hr Q24H IVPB Last administered on t 21:54; Admin Dose 125 MLS/HR; Start 11/27/16 at 21:00 Miscellaneous Information (*Rx Drug Level Order Reminder*) AMIKACIN TROUGH @ 1, 900 ON... ONCE ONCE XX ; Start 11/28/16 at 19:00; Stop 11/28/16 at 19:01 Miscellaneous Information (*Rx Drug Level Order Reminder*) VANCO TROUGH @ 2, 000 ON... ONCE ONCE XX ; Start 11/29/16 at 20:00; Stop 11/29/16 at 20:01 MI JEFFERS Nov 28, 2016 12:43
--- NOTE | 2016-11-28 14:00 | PN ---
Date/Time of Note Date/Time of Note DATE: 11/28/16 TIME: 13:47 Assessment/Plan VTE Prophylaxis VTE Prophylaxis Intervention: SCD's Lines/Catheters [facility]from [facility] Central Line Central line still needed: Yes Urinary Cath still in place: Yes Reason Cath still needed: urinary retention Assessment/Plan Chief Complaint/Hosp Course Patient tolerates G-tube feeding well, remains afebrile, moderate amount of secretions from tracheostomy. ASSESSMENT AND PLAN: - Sepsis of unknown etiology, with shock, resolving. Dr. Matias is following in infection disease consultation. Continue antibiotics per ID. Patient is currently on vancomycin and amikacin. - Possible small-bowel obstruction vs ileus, resolved. Dr. Murcia is following in general surgery consultation. Dr. Walton is following in gastroenterology consultation - Acute kidney injury with electrolyte imbalances, resolved. Dr. Aceves is following in nephrology consultation. - Elevated troponin, most likely secondary to demand ischemia. Trending down. Dr. Flor is following in cardiology consultation. - Ventilator-dependent respiratory failure. - Dysphagia with G-tube. - Seizure disorder. Continue Keppra. - Anoxic encephalopathy, status post cardiac arrest. - Schizophrenia by history. Continue Lovenox for deep venous thrombosis prophylaxis and Pepcid for peptic ulcer disease prophylaxis. Further recommendations based on clinical course. Plan of care discussed with Dr. Courtney. Problems: Exam/Review of Systems Vital Signs Vitals Vital Signs Date Time Temp Pulse Resp B/P Pulse Ox O2 Delivery O2 Flow Rate FiO2 11/28/16 12:36 64 11/28/16 11:54 98.4 20 115/81 98 11/28/16 11:46 40 11/24/16 07:55 Mechanical Ventilator 11/24/16 07:00 10.0 Intake and Output 11/27/16 11/27/16 11/28/16 15:00 23:00 07:00 Intake Total 100 ml 1600 ml Output Total 1000 ml 1000 ml Balance -900 ml 600 ml Exam Constitutional: non-verbal Head: normocephalic Neck: other (Tracheostomy), supple Cardiovascular: nl pulses, regular rate and rhythm Gastrointestinal: non-tender, soft, GT Extremities: normal pulses, other (Contracted) Results Result Diagram: 11/28/16 0525 11/28/16 0525 Results 24 hrs Laboratory Tests Test 11/28/16 05:25 White Blood Count 6.2 Red Blood Count 3.42 L Hemoglobin 9.1 L Hematocrit 29.4 L Mean Corpuscular Volume 86.0 Mean Corpuscular Hemoglobin 26.6 L Mean Corpuscular Hemoglobin Concent 31.0 L Red Cell Distribution Width 14.4 Platelet Count 269 Mean Platelet Volume 11.4 H Neutrophils % 58.8 Lymphocytes % 27.8 Monocytes % 9.2 Eosinophils % 3.2 Basophils % 0.2 Nucleated Red Blood Cells % 0.0 Neutrophils # 3.6 Lymphocytes # 1.7 Monocytes # 0.6 Eosinophils # 0.2 Basophils # 0.0 Nucleated Red Blood Cells # 0.0 Sodium Level 141 Potassium Level 3.5 Chloride Level 111 H Carbon Dioxide Level 19 L Anion Gap 15 Blood Urea Nitrogen 8 Creatinine 1.74 H Glucose Level 100 Calcium Level 9.2 Medications Medications Current Medications Acetaminophen (Tylenol Liquid) 650 mg Q6H PRN PO PAIN LEVEL 1-3 OR FEVER Last administered on 11/26/16 09:33; Admin Dose 650 MG; Start 11/21/16 at 03:00 Ondansetron HCl (Zofran Inj) 4 mg Q6H PRN IV NAUSEA AND/OR VOMITING; Start at 13:00 Morphine Sulfate (morphine) 2 mg Q4H PRN IV PAIN LEVEL 7-10; Start 11/21/16 at 13:00 Pantoprazole (Protonix Iv) 40 mg DAILY@06 IV Last administered on 11/28/16 05: 02; Admin Dose 40 MG; Start 11/22/16 at 06:00 Enoxaparin Sodium 30 mg 30 mg DAILY SC Last administered on 11/28/16 10:00; Admin Dose 30 MG; Start 11/22/16 at 09:00 Potassium Chloride/Dextrose (D5W + KCl 20 Meq) 1,000 ml @ 60 mls/hr [id number] IV Last administered on 11/28/16 03:52; Admin Dose 60 MLS/HR; Start 11/21/16 at 16:00 Aspirin (Aspirin) 81 mg DAILY PO Last administered on 11/28/16 09:57; Admin Dose 81 MG; Start 11/22/16 at 09:00 Metoprolol Tartrate (Lopressor) 25 mg BID PO Last administered on 11/27/16 21: 54; Admin Dose 25 MG; Start 11/21/16 at 21:00 Amikacin Sulfate AMIKACIN PER PHARMACY NOTE XX ; Start 11/26/16 at 17:30 Amikacin Sulfate 750 mg/Sodium Chloride 153 ml @ 153 mls/hr Q48H IVPB ; Start 11/28/16 at 20:00; Status Future Hold Vancomycin HCl (Vancocin) 250 ml @ 125 mls/hr Q24H IVPB Last administered on t 21:54; Admin Dose 125 MLS/HR; Start 11/27/16 at 21:00 Miscellaneous Information (*Rx Drug Level Order Reminder*) AMIKACIN TROUGH @ 1, 900 ON... ONCE ONCE XX ; Start 11/28/16 at 19:00; Stop 11/28/16 at 19:01 Miscellaneous Information (*Rx Drug Level Order Reminder*) VANCO TROUGH @ 2, 000 ON... ONCE ONCE XX ; Start 11/29/16 at 20:00; Stop 11/29/16 at 20:01 JH WISDOM Nov 28, 2016 13:58
--- NOTE | 2016-11-28 17:10 | CONS ---
Date/Time of Note Date/Time of Note DATE: 11/28/16 TIME: 17:09 Assessment/Plan Assessment/Plan Additional Assessment/Plan 1. Acute kidney injury secondary to severe prerenal azotemia and ischemic acute tubular necrosis from a bowel obstruction. 2. Severe hypernatremia secondary to a large free water deficit. 3. Hypokalemia. 4. Elevated troponin secondary to possible demand ischemia. 5. Sepsis of unknown etiology. 6. Possible small-bowel obstruction from fecal impaction. 7. History of ventilator-dependent respiratory failure secondary to anoxic encephalopathy from cardiac arrest, status post tracheostomy. 8. History of dysphagia, status post G-tube placement. 9. History of seizure disorder. 10. History of schizophrenia. 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 PLAN: continue IVF D5W with KCL at 60cc/hr s/p family meetign today, code status has been changed to chemical code only Cr 1.7 bumped today with Hyperchloremic metabolic acidosis , will monitor, worried for amikacin toxicity IV abx per PMD will follow up Consultation Date/Type/Reason Admit Date/Time Nov 21, 2016 at 02:41 Initial Consult Date 11/21/16 Type of Consultation: NEPHROLOGY Referring Provider: RICHARD GIRARD MD Exam/Review of Systems Vital Signs Vitals Vital Signs Date Time Temp Pulse Resp B/P Pulse Ox O2 Delivery O2 Flow Rate FiO2 11/28/16 16:24 87 11/28/16 15:45 20 97 40 11/28/16 15:32 99.7 138/78 11/24/16 07:55 Mechanical Ventilator 11/24/16 07:00 10.0 Intake and Output 11/27/16 11/27/16 11/28/16 15:00 23:00 07:00 Intake Total 100 ml 1600 ml Output Total 1000 ml 1000 ml Balance -900 ml 600 ml Results Result Diagram: 11/28/16 0525 11/28/16 0525 Results 24 hrs Laboratory Tests Test 11/28/16 05:25 White Blood Count 6.2 Red Blood Count 3.42 L Hemoglobin 9.1 L Hematocrit 29.4 L Mean Corpuscular Volume 86.0 Mean Corpuscular Hemoglobin 26.6 L Mean Corpuscular Hemoglobin Concent 31.0 L Red Cell Distribution Width 14.4 Platelet Count 269 Mean Platelet Volume 11.4 H Neutrophils % 58.8 Lymphocytes % 27.8 Monocytes % 9.2 Eosinophils % 3.2 Basophils % 0.2 Nucleated Red Blood Cells % 0.0 Neutrophils # 3.6 Lymphocytes # 1.7 Monocytes # 0.6 Eosinophils # 0.2 Basophils # 0.0 Nucleated Red Blood Cells # 0.0 Sodium Level 141 Potassium Level 3.5 Chloride Level 111 H Carbon Dioxide Level 19 L Anion Gap 15 Blood Urea Nitrogen 8 Creatinine 1.74 H Glucose Level 100 Calcium Level 9.2 Medications Medications Current Medications Acetaminophen (Tylenol Liquid) 650 mg Q6H PRN PO PAIN LEVEL 1-3 OR FEVER Last administered on 11/26/16 09:33; Admin Dose 650 MG; Start 11/21/16 at 03:00 Ondansetron HCl (Zofran Inj) 4 mg Q6H PRN IV NAUSEA AND/OR VOMITING; Start at 13:00 Morphine Sulfate (morphine) 2 mg Q4H PRN IV PAIN LEVEL 7-10; Start 11/21/16 at 13:00 Pantoprazole (Protonix Iv) 40 mg DAILY@06 IV Last administered on 11/28/16 05: 02; Admin Dose 40 MG; Start 11/22/16 at 06:00 Enoxaparin Sodium 30 mg 30 mg DAILY SC Last administered on 11/28/16 10:00; Admin Dose 30 MG; Start 11/22/16 at 09:00 Potassium Chloride/Dextrose (D5W + KCl 20 Meq) 1,000 ml @ 60 mls/hr [id number] IV Last administered on 11/28/16 03:52; Admin Dose 60 MLS/HR; Start 11/21/16 at 16:00 Aspirin (Aspirin) 81 mg DAILY PO Last administered on 11/28/16 09:57; Admin Dose 81 MG; Start 11/22/16 at 09:00 Metoprolol Tartrate (Lopressor) 25 mg BID PO Last administered on 11/27/16 21: 54; Admin Dose 25 MG; Start 11/21/16 at 21:00 Amikacin Sulfate AMIKACIN PER PHARMACY NOTE XX ; Start 11/26/16 at 17:30 Amikacin Sulfate 750 mg/Sodium Chloride 153 ml @ 153 mls/hr Q48H IVPB ; Start 11/28/16 at 20:00; Status Future Hold Vancomycin HCl (Vancocin) 250 ml @ 125 mls/hr Q24H IVPB Last administered on t 21:54; Admin Dose 125 MLS/HR; Start 11/27/16 at 21:00 Miscellaneous Information (*Rx Drug Level Order Reminder*) AMIKACIN TROUGH @ 1, 900 ON... ONCE ONCE XX ; Start 11/28/16 at 19:00; Stop 11/28/16 at 19:01 Miscellaneous Information (*Rx Drug Level Order Reminder*) VANCO TROUGH @ 2, 000 ON... ONCE ONCE XX ; Start 11/29/16 at 20:00; Stop 11/29/16 at 20:01 UMM MANNING MD Nov 28, 2016 17:10
[2016-11-28] MEDS ORDERED: AMIKACIN IVPB SCH (20:00)
[2016-11-28] MEDS ORDERED: SOD CHLORIDE 0.9% IVPB SCH (20:00)
[2016-11-28] MEDS: VANCOMYCIN 1 GM in NS 250 ML IVPB SCH (21:06)
--- NOTE | 2016-11-28 21:19 | CONS ---
Date/Time of Note Date/Time of Note DATE: 11/28/16 TIME: 21:17 Assessment/Plan Assessment/Plan Chief Complaint/Hosp Course SUBJECTIVE: No acute changes. No fevers. The patient is lying comfortably in bed. Tolerates TF INDWELLINGS: Trach, PEG, Charles. ANTIMICROBIALS: 1. Vancomycin. 2. Amikacin. PHYSICAL EXAMINATION: GENERAL: Chronically ill-appearing, middle-aged, vegetative man who is in no distress. HEENT: Head atraumatic, normocephalic. Sclerae anicteric. Buccal mucosa dry. NECK: Supple. CHEST: Rise symmetrical. Breath sounds diminished to bases. HEART: S1, S2. ABDOMEN: Soft. Bowel tones hypoactive. EXTREMITIES: No cyanosis. ASSESSMENT: 1. Resolving sepsis. 2. S/p small-bowel obstruction likely secondary to severe fecal impaction==> resolved. 3. Chronic respiratory failure ?PNA 4. History of seizure disorder. 5. Persistent vegetative state. PLAN: The patient remains stable. Tolerates TF, will change abx to Zosyn for 5 more days, vent support per pulmonary. DW staff Problems: Consultation Date/Type/Reason Admit Date/Time Nov 21, 2016 at 02:41 Initial Consult Date 11/21/16 Type of Consultation: ID Referring Provider: RICHARD GIRARD MD Exam/Review of Systems Vital Signs Vitals Vital Signs Date Time Temp Pulse Resp B/P Pulse Ox O2 Delivery O2 Flow Rate FiO2 11/28/16 20:50 84 11/28/16 20:21 99.3 24 141/81 100 11/28/16 19:46 40 11/24/16 07:55 Mechanical Ventilator 11/24/16 07:00 10.0 Intake and Output 11/27/16 11/27/16 11/28/16 15:00 23:00 07:00 Intake Total 100 ml 1600 ml Output Total 1000 ml 1000 ml Balance -900 ml 600 ml Results Result Diagram: 11/28/16 0525 11/28/16 0525 Results 24 hrs Laboratory Tests Test 11/28/16 05:25 White Blood Count 6.2 Red Blood Count 3.42 L Hemoglobin 9.1 L Hematocrit 29.4 L Mean Corpuscular Volume 86.0 Mean Corpuscular Hemoglobin 26.6 L Mean Corpuscular Hemoglobin Concent 31.0 L Red Cell Distribution Width 14.4 Platelet Count 269 Mean Platelet Volume 11.4 H Neutrophils % 58.8 Lymphocytes % 27.8 Monocytes % 9.2 Eosinophils % 3.2 Basophils % 0.2 Nucleated Red Blood Cells % 0.0 Neutrophils # 3.6 Lymphocytes # 1.7 Monocytes # 0.6 Eosinophils # 0.2 Basophils # 0.0 Nucleated Red Blood Cells # 0.0 Sodium Level 141 Potassium Level 3.5 Chloride Level 111 H Carbon Dioxide Level 19 L Anion Gap 15 Blood Urea Nitrogen 8 Creatinine 1.74 H Glucose Level 100 Calcium Level 9.2 Medications Medications Current Medications Acetaminophen (Tylenol Liquid) 650 mg Q6H PRN PO PAIN LEVEL 1-3 OR FEVER Last administered on 11/26/16 09:33; Admin Dose 650 MG; Start 11/21/16 at 03:00 Ondansetron HCl (Zofran Inj) 4 mg Q6H PRN IV NAUSEA AND/OR VOMITING; Start at 13:00 Morphine Sulfate (morphine) 2 mg Q4H PRN IV PAIN LEVEL 7-10; Start 11/21/16 at 13:00 Pantoprazole (Protonix Iv) 40 mg DAILY@06 IV Last administered on 11/28/16 05: 02; Admin Dose 40 MG; Start 11/22/16 at 06:00 Enoxaparin Sodium 30 mg 30 mg DAILY SC Last administered on 11/28/16 10:00; Admin Dose 30 MG; Start 11/22/16 at 09:00 Potassium Chloride/Dextrose (D5W + KCl 20 Meq) 1,000 ml @ 60 mls/hr [id number] IV Last administered on 11/28/16 03:52; Admin Dose 60 MLS/HR; Start 11/21/16 at 16:00 Aspirin (Aspirin) 81 mg DAILY PO Last administered on 11/28/16 09:57; Admin Dose 81 MG; Start 11/22/16 at 09:00 Metoprolol Tartrate (Lopressor) 25 mg BID PO Last administered on 11/28/16 21: 09; Admin Dose 25 MG; Start 11/21/16 at 21:00 Amikacin Sulfate AMIKACIN PER PHARMACY NOTE XX ; Start 11/26/16 at 17:30 Amikacin Sulfate 750 mg/Sodium Chloride 153 ml @ 153 mls/hr Q48H IVPB ; Start 11/28/16 at 20:00; Status Future Hold Vancomycin HCl (Vancocin) 250 ml @ 125 mls/hr Q24H IVPB Last administered on t 21:06; Admin Dose 125 MLS/HR; Start 11/27/16 at 21:00 Miscellaneous Information (*Rx Drug Level Order Reminder*) VANCO TROUGH @ 2, 000 ON... ONCE ONCE XX ; Start 11/29/16 at 20:00; Stop 11/29/16 at 20:01 YURY YOON NP Nov 28, 2016 21:19
[2016-11-28] MEDS ORDERED: PIPER-TAZO 3.375 GM IV (PMX) 100 ML IVPB SCH (22:00)
[2016-11-28] MEDS: PIPER-TAZO 2.25 GM (PMX) 50 ML IVPB SCH (23:48)
[2016-11-29] VITALS (24 sets, daily range): BP systolic 109–134; BP diastolic 72–79; PULSE 57–76; RESP 16–24
[2016-11-29] MEDS: PANTOPRAZOLE 40 MG INJ IV SCH (05:21)
[2016-11-29] MEDS: PIPER-TAZO 2.25 GM (PMX) 50 ML IVPB SCH ×4 (05:25→23:11)
[2016-11-29 07:09] LABS: ADD SCAN DIFF NO
[2016-11-29 07:22] LABS: ABNORMAL IP MESSAGE 1; HEMATOCRIT 18.2 % (42.0-52.0); MEAN CORPUSCULAR HEMOGLOBIN 27.1 pg (29.0-33.0); MEAN CORPUSCULAR HGB CONC 30.8 g/dl (32.0-37.0); MEAN CORPUSCULAR VOLUME 87.9 fl (82.0-101.0); MEAN PLATELET VOLUME 11.3 fl (7.4-10.4); PLATELET COUNT 430 10^3/UL (140-415); RED BLOOD COUNT 2.07 10^6/ul (4.70-6.10); RED CELL DISTRIBUTION WIDTH 14.5 % (11.5-14.5); WHITE BLOOD COUNT 8.9 10^3/ul (4.8-10.8)
[2016-11-29 07:32] LABS: HEMOGLOBIN 5.6 g/dl (14.0-18.0)
[2016-11-29 07:49] LABS: CALCIUM 8.8 mg/dl (8.4-10.2); CREATININE 1.88 mg/dl (0.61-1.24); POTASSIUM 4.1 mmol/L (3.5-5.1)
[2016-11-29] MEDS: METOPROLOL 25 MG TAB PO SCH ×2 (09:57→21:03)
[2016-11-29] MEDS: ASPIRIN 81 MG TAB PO SCH (09:57)
[2016-11-29] MEDS: ENOXAPARIN 30 MG/0.3 ML SYG SC SCH (10:04)
[2016-11-29 10:09] LABS: HEMATOCRIT 29.2 % (42.0-52.0)
[2016-11-29 11:12] LABS: ANISOCYTOSIS 2+; HYPOCHROMASIA 2+; MICROCYTOSIS 1+
--- NOTE | 2016-11-29 11:16 | PN ---
DATE: 11/29/2016 PULMONARY FOLLOWUP SUBJECTIVE: Chart reviewed. No significant changes noted. The patient remains on the ventilator o n 40% FIO2, saturating 99%. PHYSICAL EXAMINATION: VITAL SIGNS: Blood pressure 109/72, pulse 61, respirations 20, temperature 98.2. HEENT: Pupils are equal and reactive to light. NECK: Supple, no JVD noted, no cervical adenopathy noted. Tracheostomy in place. LUNGS: Few scattered rhonchi. CARDIOVASCULAR: S1, S2 normal. ABDOMEN: Soft, nontender. No organomegaly or masses noted. G-tube in place. EXTREMITIES: No clubbing, cyanosis, or edema. NEUROLOGIC: Encephalopathic. LABORATORY DATA: Hemoglobin 9, hematocrit 29.2. Sodium 141, potassium 4.1, chloride 110, CO2 of 22 , BUN 12, creatinine 1.88, glucose 104. IMPRESSION: 1. Ventilator-dependent respiratory failure, hypoxemic. 2. Fecal impaction, clinically better. 3. Bilateral pneumonia. 4. Advanced dementia. 5. Acute renal failure. RECOMMENDATIONS: 1. Continue vent support. 2. Continue antibiotics per ID recommendations. 3. Nephrology followup noted. 4. Followup labs and x-ray. Dictated By: JONNY YANEZ MD, MA/CY Conf#: [id number] DID#: [id number]
--- NOTE | 2016-11-29 11:59 | CONS ---
Date/Time of Note Date/Time of Note DATE: 11/29/16 TIME: 11:58 Assessment/Plan Assessment/Plan Additional Assessment/Plan 1. Positive troponin in the setting of high fevers and tachycardia, now trending negative, likely demand event type 2 infarct. NL EF by echo this admit - no intervention planned - no intervention planned now. STABLE. 2. Abnormal electrocardiogram, with nonspecific ST-T and T-wave abnormalities- chronic. 3. Supraventricular tachycardia, possibly sinus tachycardia in the setting of fevers versus atrial flutter - now in sinus at 60s. NOW IN SINUS. 4. Hypotension-overall improved but marginal. Better now. 5. Fevers - Rx with anti-bx. 6. Anoxic encephalopathy - unchanged. 7. Chronic respiratory failure, status post tracheostomy - stable. 8. Hypernatremia-improved - BETTER 9. Hypokalemia.-improved 10. Anemia. 11. Hematuria. Consultation Date/Type/Reason Admit Date/Time Nov 21, 2016 at 02:41 Initial Consult Date 11/21/16 Type of Consultation: ID Referring Provider: RICHARD GIRARD MD 24 HR Interval Summary Free Text/Dictation NO acute events - no significant ectopy on tele ROS: No fever, no chills, no nausea, no vomiting, no diarrhea/constipation No recent weight changes No chest pain, no PND, no orthopnea No dizziness, blurred vision No thirst, no heat or cold intolerance (per nurse) Exam/Review of Systems Vital Signs Vitals Vital Signs Date Time Temp Pulse Resp B/P Pulse Ox O2 Delivery O2 Flow Rate FiO2 11/29/16 11:33 98.1 60 17 119/74 100 11/29/16 11:05 40 Intake and Output 11/28/16 11/28/16 11/29/16 15:00 23:00 07:00 Intake Total 680 ml 100 ml Output Total 1200 ml Balance -520 ml 100 ml Exam General: WN/WD/NAD, AOx 0 HEENT: Unicetric/atraumatic/EOMI (does not follow commands) NECK: trach Lymph: no lymphadenopathy HEART: regular with no S3, II/ systolic murmur at apex LUNGS: Coarse sounds ABD: soft, NT, ND, +BS : Intact Neuro: contracted SKIN: chronic changes EXT: trace edema Results Result Diagram: 11/29/16 0950 11/29/16 0623 Results 24 hrs Laboratory Tests Test 11/29/16 06:23 11/29/16 09:50 White Blood Count 8.9 # Red Blood Count 2.07 #L Hemoglobin 5.6 #*L 9.0 #L Hematocrit 18.2 #L 29.2 #L Mean Corpuscular Volume 87.9 Mean Corpuscular Hemoglobin 27.1 L Mean Corpuscular Hemoglobin Concent 30.8 L Red Cell Distribution Width 14.5 Platelet Count 430 #H Mean Platelet Volume 11.3 H Hypochromasia 2+ Anisocytosis 2+ Microcytosis 1+ Sodium Level 141 Potassium Level 4.1 Chloride Level 110 Carbon Dioxide Level 22 Anion Gap 13 Blood Urea Nitrogen 12 Creatinine 1.88 H Glucose Level 104 Calcium Level 8.8 Medications Medications Current Medications Acetaminophen (Tylenol Liquid) 650 mg Q6H PRN PO PAIN LEVEL 1-3 OR FEVER Last administered on 11/26/16 09:33; Admin Dose 650 MG; Start 11/21/16 at 03:00 Ondansetron HCl (Zofran Inj) 4 mg Q6H PRN IV NAUSEA AND/OR VOMITING; Start at 13:00 Morphine Sulfate (morphine) 2 mg Q4H PRN IV PAIN LEVEL 7-10; Start 11/21/16 at 13:00 Pantoprazole (Protonix Iv) 40 mg DAILY@06 IV Last administered on 11/29/16 05: 21; Admin Dose 40 MG; Start 11/22/16 at 06:00 Enoxaparin Sodium 30 mg 30 mg DAILY SC Last administered on 11/29/16 10:04; Admin Dose 30 MG; Start 11/22/16 at 09:00 Potassium Chloride/Dextrose (D5W + KCl 20 Meq) 1,000 ml @ 60 mls/hr [id number] IV Last administered on 11/28/16 23:45; Admin Dose 60 MLS/HR; Start 11/21/16 at 16:00 Aspirin (Aspirin) 81 mg DAILY PO Last administered on 11/29/16 09:57; Admin Dose 81 MG; Start 11/22/16 at 09:00 Metoprolol Tartrate 25 mg 25 mg BID PO Last administered on 11/29/16 09:57; Admin Dose 25 MG; Start 11/21/16 at 21:00 Piperacillin Sod/ Tazobactam Sod (Zosyn 2.25gm/ 50ml (Pmx)) 50 ml @ 100 mls/hr Q6 IVPB Last administered on 11/29/16t 05:25; Admin Dose 100 MLS/HR; Start at 00:00 FABIOLA WATERS MD Nov 29, 2016 11:59
--- NOTE | 2016-11-29 12:12 | PN ---
Date/Time of Note Date/Time of Note DATE: 11/29/16 TIME: 12:11 Assessment/Plan VTE Prophylaxis VTE Prophylaxis Intervention: other Lines/Catheters [facility] Central Line Central line still needed: Yes Urinary Cath still in place: Yes Reason Cath still needed: skin wounds contaminated by urine Assessment/Plan Chief Complaint/Hosp Course - Sepsis of unknown etiology, with shock, resolving. Dr. Matias is following in infection disease consultation. Continue antibiotics per ID. Patient is currently on vancomycin and amikacin. - Possible small-bowel obstruction vs ileus, resolved. Dr. Murcia is following in general surgery consultation. Dr. Walton is following in gastroenterology consultation - Acute kidney injury with electrolyte imbalances, resolved. Dr. Aceves is following in nephrology consultation. - Elevated troponin, most likely secondary to demand ischemia. Trending down. Dr. Flor is following in cardiology consultation. - Ventilator-dependent respiratory failure. - Dysphagia with G-tube. - Seizure disorder. Continue Keppra. - Anoxic encephalopathy, status post cardiac arrest. - Schizophrenia by history. Problems: Subjective 24 Hr Interval Summary Free Text/Dictation Eyes open, appears comfortable, trach in place Exam/Review of Systems Vital Signs Vitals Vital Signs Date Time Temp Pulse Resp B/P Pulse Ox O2 Delivery O2 Flow Rate FiO2 11/29/16 11:33 98.1 60 17 119/74 100 11/29/16 11:05 40 Intake and Output 11/28/16 11/28/16 11/29/16 15:00 23:00 07:00 Intake Total 680 ml 100 ml Output Total 1200 ml Balance -520 ml 100 ml Exam Constitutional: well developed Head: atraumatic, normocephalic Neck: supple Respiratory: diminished breath sounds Cardiovascular: regular rate and rhythm Gastrointestinal: non-tender, soft Extremities: normal pulses Results Result Diagram: 11/29/16 0950 11/29/16 0623 Results 24 hrs Laboratory Tests Test 11/29/16 06:23 11/29/16 09:50 White Blood Count 8.9 # Red Blood Count 2.07 #L Hemoglobin 5.6 #*L 9.0 #L Hematocrit 18.2 #L 29.2 #L Mean Corpuscular Volume 87.9 Mean Corpuscular Hemoglobin 27.1 L Mean Corpuscular Hemoglobin Concent 30.8 L Red Cell Distribution Width 14.5 Platelet Count 430 #H Mean Platelet Volume 11.3 H Hypochromasia 2+ Anisocytosis 2+ Microcytosis 1+ Sodium Level 141 Potassium Level 4.1 Chloride Level 110 Carbon Dioxide Level 22 Anion Gap 13 Blood Urea Nitrogen 12 Creatinine 1.88 H Glucose Level 104 Calcium Level 8.8 Medications Medications Current Medications Acetaminophen (Tylenol Liquid) 650 mg Q6H PRN PO PAIN LEVEL 1-3 OR FEVER Last administered on 11/26/16 09:33; Admin Dose 650 MG; Start 11/21/16 at 03:00 Ondansetron HCl (Zofran Inj) 4 mg Q6H PRN IV NAUSEA AND/OR VOMITING; Start at 13:00 Morphine Sulfate (morphine) 2 mg Q4H PRN IV PAIN LEVEL 7-10; Start 11/21/16 at 13:00 Pantoprazole (Protonix Iv) 40 mg DAILY@06 IV Last administered on 11/29/16 05: 21; Admin Dose 40 MG; Start 11/22/16 at 06:00 Enoxaparin Sodium 30 mg 30 mg DAILY SC Last administered on 11/29/16 10:04; Admin Dose 30 MG; Start 11/22/16 at 09:00 Potassium Chloride/Dextrose (D5W + KCl 20 Meq) 1,000 ml @ 60 mls/hr [id number] IV Last administered on 11/28/16 23:45; Admin Dose 60 MLS/HR; Start 11/21/16 at 16:00 Aspirin (Aspirin) 81 mg DAILY PO Last administered on 11/29/16 09:57; Admin Dose 81 MG; Start 11/22/16 at 09:00 Metoprolol Tartrate 25 mg 25 mg BID PO Last administered on 11/29/16 09:57; Admin Dose 25 MG; Start 11/21/16 at 21:00 Piperacillin Sod/ Tazobactam Sod (Zosyn 2.25gm/ 50ml (Pmx)) 50 ml @ 100 mls/hr Q6 IVPB Last administered on 11/29/16 05:25; Admin Dose 100 MLS/HR; Start at 00:00 JD POWELL Nov 29, 2016 12:12
--- NOTE | 2016-11-29 12:41 | CONS ---
Date/Time of Note Date/Time of Note DATE: 11/29/16 TIME: 12:38 Assessment/Plan Assessment/Plan Additional Assessment/Plan 1. Acute kidney injury secondary to severe prerenal azotemia and ischemic acute tubular necrosis from a bowel obstruction. 2. Severe hypernatremia secondary to a large free water deficit. 3. severe anemia s/p PRBC transfusion 4. Elevated troponin secondary to possible demand ischemia. 5. Sepsis of unknown etiology. 6. Possible small-bowel obstruction from fecal impaction. 7. History of ventilator-dependent respiratory failure secondary to anoxic encephalopathy from cardiac arrest, status post tracheostomy. 8. History of dysphagia, status post G-tube placement. 9. History of seizure disorder. 10. History of schizophrenia. 11. [facility] PLAN: s/p PRBC transfusion, now Hb stable, cr bumped to 1.8- monitor it continue IVF D5W with KCL at 60cc/hr IV abx per PMD and ID will follow up Consultation Date/Type/Reason Admit Date/Time Nov 21, 2016 at 02:41 Initial Consult Date 11/21/16 Type of Consultation: NEPHROLOGY Referring Provider: RICHARD GIRARD MD 24 HR Interval Summary Free Text/Dictation remains stable, afebrile, BP stable ,s/p PRBC, Cr 1.8 Exam/Review of Systems Vital Signs Vitals Vital Signs Date Time Temp Pulse Resp B/P Pulse Ox O2 Delivery O2 Flow Rate FiO2 11/29/16 12:21 60 11/29/16 11:33 98.1 17 119/74 100 11/29/16 11:05 40 Intake and Output 11/28/16 11/28/16 11/29/16 15:00 23:00 07:00 Intake Total 680 ml 100 ml Output Total 1200 ml Balance -520 ml 100 ml Exam GENERAL: Chronically ill-appearing, middle-aged, vegetative man who is in no distress. HEENT: Head atraumatic, normocephalic. Sclerae anicteric. Buccal mucosa dry. NECK: Supple. CHEST: Rise symmetrical. Breath sounds diminished to bases. HEART: S1, S2. ABDOMEN: Soft. Bowel tones hypoactive. EXTREMITIES: No cyanosis. Results Result Diagram: 11/29/16 0950 11/29/16 0623 Results 24 hrs Laboratory Tests Test 11/29/16 06:23 11/29/16 09:50 White Blood Count 8.9 # Red Blood Count 2.07 #L Hemoglobin 5.6 #*L 9.0 #L Hematocrit 18.2 #L 29.2 #L Mean Corpuscular Volume 87.9 Mean Corpuscular Hemoglobin 27.1 L Mean Corpuscular Hemoglobin Concent 30.8 L Red Cell Distribution Width 14.5 Platelet Count 430 #H Mean Platelet Volume 11.3 H Hypochromasia 2+ Anisocytosis 2+ Microcytosis 1+ Sodium Level 141 Potassium Level 4.1 Chloride Level 110 Carbon Dioxide Level 22 Anion Gap 13 Blood Urea Nitrogen 12 Creatinine 1.88 H Glucose Level 104 Calcium Level 8.8 Medications Medications Current Medications Acetaminophen (Tylenol Liquid) 650 mg Q6H PRN PO PAIN LEVEL 1-3 OR FEVER Last administered on 11/26/16 09:33; Admin Dose 650 MG; Start 11/21/16 at 03:00 Ondansetron HCl (Zofran Inj) 4 mg Q6H PRN IV NAUSEA AND/OR VOMITING; Start at 13:00 Morphine Sulfate (morphine) 2 mg Q4H PRN IV PAIN LEVEL 7-10; Start 11/21/16 at 13:00 Pantoprazole (Protonix Iv) 40 mg DAILY@06 IV Last administered on 11/29/16 05: 21; Admin Dose 40 MG; Start 11/22/16 at 06:00 Enoxaparin Sodium 30 mg 30 mg DAILY SC Last administered on 11/29/16 10:04; Admin Dose 30 MG; Start 11/22/16 at 09:00 Potassium Chloride/Dextrose (D5W + KCl 20 Meq) 1,000 ml @ 60 mls/hr [id number] IV Last administered on 11/28/16 23:45; Admin Dose 60 MLS/HR; Start 11/21/16 at 16:00 Aspirin (Aspirin) 81 mg DAILY PO Last administered on 11/29/16 09:57; Admin Dose 81 MG; Start 11/22/16 at 09:00 Metoprolol Tartrate 25 mg 25 mg BID PO Last administered on 11/29/16 09:57; Admin Dose 25 MG; Start 11/21/16 at 21:00 Piperacillin Sod/ Tazobactam Sod (Zosyn 2.25gm/ 50ml (Pmx)) 50 ml @ 100 mls/hr Q6 IVPB Last administered on 11/29/16t 05:25; Admin Dose 100 MLS/HR; Start at 00:00 UMM MANNING MD Nov 29, 2016 12:41
--- NOTE | 2016-11-29 15:11 | CONS ---
Date/Time of Note Date/Time of Note DATE: 11/29/16 TIME: 15:07 Assessment/Plan Assessment/Plan Chief Complaint/Hosp Course ID PROGRESS NOTE ABX DAY # 9=> Zosyn 24H INTERVAL SUMMARY * 46 yo M Chronic encephalopath w/Trach & Peg, admit from SNF w/Fevers & Leukocytosis * Fever on admission = RESOLVED and WBC down today after initiation broad spectrum ABX * INDWELLINGS: Trach, PEG, Charles. PHYSICAL EXAMINATION: GENERAL: VSS, NAD, no fever HEENT: Unremarkable NECK: Trach-> midline CHEST: Equal chest rise bilaterally, without dyspnea on observation HEART: Pulse RRR ABDOMEN: Soft EXTREMITIES: Warm SKIN: Warm, dry ID ASSESSMENT: 46 yo M admitted with: 1. Sepsis w/fevers, leukocytosis, tachycardia (SVT), w/(+)Troponin bump 2/2 demand ischemia on admission = RESOLVED 2. Aspiration pneumonitis SNF w/sputum (+)Polymicrobial RESPIRATORY CULTURE Final Organism 1 K PNEUMO ESBL QUANTITY 4+ . MULTI DRUG RESISTANT ORGANISM Organism 2 PROTEUS MIRABILIS QUANTITY 1+ Organism 3 STREP, BETA HEMOLYTIC GRP G 3. S/P Hematuria -> Suspect urosepsis however UA C&S were ordered, yet cancelled in computer and not completed. 4. Nonobstructing left renal stones measuring up to 1.7 cm. 5. Constipation on admission w/CT ABD FINDING: * Moderate volume of retained stool in the rectum. The more proximal colon is markedly distended with gas and fluid. This is nonspecific but might represent a colonic obstruction secondary to impacted stool in the rectum versus a colonic pseudo-obstruction (Loren syndrome). ABX ALLERGIES: KNDA INVASIVES: *PIV, Trach, Peg, R-IJ TLC CURRENT ABX: ABX DAY #9=>Zosyn ID RECOMMENDATIONS: 1. Continue current ABX course anticipate total 14 days 2. May DC back to SNF to complete ABX course per primary Problems: Consultation Date/Type/Reason Admit Date/Time Nov 21, 2016 at 02:41 Initial Consult Date 11/21/16 Type of Consultation: ID Referring Provider: RICHARD GIRARD MD Exam/Review of Systems Vital Signs Vitals Vital Signs Date Time Temp Pulse Resp B/P Pulse Ox O2 Delivery O2 Flow Rate FiO2 11/29/16 15:05 98.6 63 19 122/74 95 11/29/16 13:20 40 Intake and Output 11/28/16 11/28/16 11/29/16 15:00 23:00 07:00 Intake Total 680 ml 100 ml Output Total 1200 ml Balance -520 ml 100 ml Results Result Diagram: 11/29/16 0950 11/29/16 0623 Results 24 hrs Laboratory Tests Test 11/29/16 06:23 11/29/16 09:50 White Blood Count 8.9 # Red Blood Count 2.07 #L Hemoglobin 5.6 #*L 9.0 #L Hematocrit 18.2 #L 29.2 #L Mean Corpuscular Volume 87.9 Mean Corpuscular Hemoglobin 27.1 L Mean Corpuscular Hemoglobin Concent 30.8 L Red Cell Distribution Width 14.5 Platelet Count 430 #H Mean Platelet Volume 11.3 H Hypochromasia 2+ Anisocytosis 2+ Microcytosis 1+ Sodium Level 141 Potassium Level 4.1 Chloride Level 110 Carbon Dioxide Level 22 Anion Gap 13 Blood Urea Nitrogen 12 Creatinine 1.88 H Glucose Level 104 Calcium Level 8.8 Medications Medications Current Medications Acetaminophen (Tylenol Liquid) 650 mg Q6H PRN PO PAIN LEVEL 1-3 OR FEVER Last administered on 11/26/16 09:33; Admin Dose 650 MG; Start 11/21/16 at 03:00 Ondansetron HCl (Zofran Inj) 4 mg Q6H PRN IV NAUSEA AND/OR VOMITING; Start at 13:00 Morphine Sulfate (morphine) 2 mg Q4H PRN IV PAIN LEVEL 7-10; Start 11/21/16 at 13:00 Enoxaparin Sodium 30 mg 30 mg DAILY SC Last administered on 11/29/16 10:04; Admin Dose 30 MG; Start 11/22/16 at 09:00 Potassium Chloride/Dextrose (D5W + KCl 20 Meq) 1,000 ml @ 60 mls/hr [id number] IV Last administered on 11/28/16 23:45; Admin Dose 60 MLS/HR; Start 11/21/16 at 16:00 Aspirin (Aspirin) 81 mg DAILY PO Last administered on 11/29/16 09:57; Admin Dose 81 MG; Start 11/22/16 at 09:00 Metoprolol Tartrate 25 mg 25 mg BID PO Last administered on 11/29/16 09:57; Admin Dose 25 MG; Start 11/21/16 at 21:00 Piperacillin Sod/ Tazobactam Sod (Zosyn 2.25gm/ 50ml (Pmx)) 50 ml @ 100 mls/hr Q6 IVPB Last administered on 11/29/16 13:12; Admin Dose 100 MLS/HR; Start at 00:00 Lansoprazole (Prevacid) 30 mg DAILY@06 GTB ; Start 11/30/16 at 06:00 GUNJAN CORRALES NP Nov 29, 2016 15:11
[2016-11-29] MEDS: D5W + KCL 20 MEQ 1,000 ML IV SCH (18:04)
[2016-11-30] VITALS (23 sets, daily range): BP systolic 103–143; BP diastolic 60–75; PULSE 59–83; RESP 16–26
[2016-11-30] MEDS: PIPER-TAZO 2.25 GM (PMX) 50 ML IVPB SCH ×3 (05:09→18:15)
[2016-11-30] MEDS: LANSOPRAZOLE 30 MG CAP GTB SCH (05:17)
[2016-11-30] MEDS: ASPIRIN 81 MG TAB PO SCH (09:32)
[2016-11-30] MEDS: METOPROLOL 25 MG TAB PO SCH ×2 (09:32→20:18)
[2016-11-30] MEDS: D5W + KCL 20 MEQ 1,000 ML IV SCH (09:41)
[2016-11-30] MEDS: ENOXAPARIN 30 MG/0.3 ML SYG SC SCH (09:41)
--- NOTE | 2016-11-30 12:05 | PN ---
Date/Time of Note Date/Time of Note DATE: 11/30/16 TIME: 12:05 Assessment/Plan VTE Prophylaxis VTE Prophylaxis Intervention: other Lines/Catheters IV Catheter Type (from Nrsg): Central Line Central line still needed: Yes Urinary Cath still in place: Yes Reason Cath still needed: skin wounds contaminated by urine Assessment/Plan Chief Complaint/Hosp Course - Sepsis of unknown etiology, with shock, resolving. Dr. Matias is following in infection disease consultation. Continue antibiotics per ID. Patient is currently on vancomycin and amikacin. - Possible small-bowel obstruction vs ileus, resolved. Dr. Murcia is following in general surgery consultation. Dr. Walton is following in gastroenterology consultation - Acute kidney injury with electrolyte imbalances, resolved. Dr. Aceves is following in nephrology consultation. - Elevated troponin, most likely secondary to demand ischemia. Trending down. Dr. Flor is following in cardiology consultation. - Ventilator-dependent respiratory failure. - Dysphagia with G-tube. - Seizure disorder. Continue Keppra. - Anoxic encephalopathy, status post cardiac arrest. - Schizophrenia by history. Problems: Subjective 24 Hr Interval Summary Free Text/Dictation Patient is not verbally responsive Exam/Review of Systems Vital Signs Vitals Vital Signs Date Time Temp Pulse Resp B/P Pulse Ox O2 Delivery O2 Flow Rate FiO2 11/30/16 11:55 98.5 60 16 137/60 100 11/30/16 09:43 40 Intake and Output 11/29/16 11/29/16 11/30/16 15:00 23:00 07:00 Intake Total 1180 ml 1250 ml Output Total 800 ml 1300 ml Balance 380 ml -50 ml Exam Constitutional: well developed Head: atraumatic, normocephalic Neck: supple Respiratory: diminished breath sounds Cardiovascular: regular rate and rhythm Gastrointestinal: non-tender, soft Extremities: normal pulses Results Result Diagram: 11/29/16 0950 11/29/16 0623 Medications Medications Current Medications Acetaminophen (Tylenol Liquid) 650 mg Q6H PRN PO PAIN LEVEL 1-3 OR FEVER Last administered on 11/26/16t 09:33; Admin Dose 650 MG; Start 11/21/16 at 03:00 Ondansetron HCl (Zofran Inj) 4 mg Q6H PRN IV NAUSEA AND/OR VOMITING; Start at 13:00 Morphine Sulfate (morphine) 2 mg Q4H PRN IV PAIN LEVEL 7-10; Start 11/21/16 at 13:00 Enoxaparin Sodium 30 mg 30 mg DAILY SC Last administered on 11/30/16 09:41; Admin Dose 30 MG; Start 11/22/16 at 09:00 Potassium Chloride/Dextrose (D5W + KCl 20 Meq) 1,000 ml @ 60 mls/hr [id number] IV Last administered on 11/29/16 18:04; Admin Dose 60 MLS/HR; Start 11/21/16 at 16:00 Aspirin (Aspirin) 81 mg DAILY PO Last administered on 11/30/16 09:32; Admin Dose 81 MG; Start 11/22/16 at 09:00 Metoprolol Tartrate 25 mg 25 mg BID PO Last administered on 11/30/16 09:32; Admin Dose 25 MG; Start 11/21/16 at 21:00 Piperacillin Sod/ Tazobactam Sod (Zosyn 2.25gm/ 50ml (Pmx)) 50 ml @ 100 mls/hr Q6 IVPB Last administered on 11/30/16 05:09; Admin Dose 100 MLS/HR; Start at 00:00 Lansoprazole (Prevacid) 30 mg DAILY@06 GTB Last administered on 11/30/16 05:17 ; Admin Dose 30 MG; Start 11/30/16 at 06:00 JD POWELL Nov 30, 2016 12:05
--- NOTE | 2016-11-30 14:46 | CONS ---
Date/Time of Note Date/Time of Note DATE: 11/30/16 TIME: 14:44 Assessment/Plan Assessment/Plan Additional Assessment/Plan 1. Positive troponin in the setting of high fevers and tachycardia, now trending negative, likely demand event type 2 infarct. NL EF by echo this admit - no intervention planned - no intervention planned now. STABLE. 2. Abnormal electrocardiogram, with nonspecific ST-T and T-wave abnormalities- chronic. No sign ectopy on tele. 3. Supraventricular tachycardia, possibly sinus tachycardia in the setting of fevers versus atrial flutter - now in sinus at 60s. NOW IN SINUS. 4. Hypotension-overall improved but marginal. Better now. 5. Fevers - Rx with anti-bx. 6. Anoxic encephalopathy - unchanged. 7. Chronic respiratory failure, status post tracheostomy - stable. 8. Hypernatremia-improved - BETTER 9. Hypokalemia.-improved 10. Anemia. 11. Hematuria. Consultation Date/Type/Reason Admit Date/Time Nov 21, 2016 at 02:41 Initial Consult Date 11/21/16 Type of Consultation: ID Referring Provider: RICHARD GIRARD MD 24 HR Interval Summary Free Text/Dictation NO acute change - con't supportive rX ROS: No fever, no chills, no nausea, no vomiting, no diarrhea/constipation No recent weight changes No chest pain, no PND, no orthopnea No dizziness, blurred vision No thirst, no heat or cold intolerance (per nurse) Exam/Review of Systems Vital Signs Vitals Vital Signs Date Time Temp Pulse Resp B/P Pulse Ox O2 Delivery O2 Flow Rate FiO2 11/30/16 13:20 69 19 98 40 11/30/16 11:55 98.5 137/60 Intake and Output 11/29/16 11/29/16 11/30/16 15:00 23:00 07:00 Intake Total 1180 ml 1250 ml Output Total 800 ml 1300 ml Balance 380 ml -50 ml Exam General: WN/WD/NAD, AOx 0 HEENT: Unicetric/atraumatic/EOMI (does not follow commands) NECK: trach Lymph: no lymphadenopathy HEART: regular with no S3, II/ systolic murmur at apex LUNGS: Coarse sounds ABD: soft, NT, ND, +BS : Intact Neuro: contracted SKIN: chronic changes EXT: trace edema Results Result Diagram: 11/29/16 0950 11/29/16 0623 Medications Medications Current Medications Acetaminophen (Tylenol Liquid) 650 mg Q6H PRN PO PAIN LEVEL 1-3 OR FEVER Last administered on 11/26/16 09:33; Admin Dose 650 MG; Start 11/21/16 at 03:00 Ondansetron HCl (Zofran Inj) 4 mg Q6H PRN IV NAUSEA AND/OR VOMITING; Start at 13:00 Morphine Sulfate (morphine) 2 mg Q4H PRN IV PAIN LEVEL 7-10; Start 11/21/16 at 13:00 Enoxaparin Sodium 30 mg 30 mg DAILY SC Last administered on 11/30/16 09:41; Admin Dose 30 MG; Start 11/22/16 at 09:00 Potassium Chloride/Dextrose (D5W + KCl 20 Meq) 1,000 ml @ 60 mls/hr [id number] IV Last administered on 11/29/16 18:04; Admin Dose 60 MLS/HR; Start 11/21/16 at 16:00 Aspirin (Aspirin) 81 mg DAILY PO Last administered on 11/30/16 09:32; Admin Dose 81 MG; Start 11/22/16 at 09:00 Metoprolol Tartrate 25 mg 25 mg BID PO Last administered on 11/30/16 09:32; Admin Dose 25 MG; Start 11/21/16 at 21:00 Piperacillin Sod/ Tazobactam Sod (Zosyn 2.25gm/ 50ml (Pmx)) 50 ml @ 100 mls/hr Q6 IVPB Last administered on 11/30/16 12:05; Admin Dose 100 MLS/HR; Start at 00:00 Lansoprazole (Prevacid) 30 mg DAILY@06 GTB Last administered on 11/30/16 05:17 ; Admin Dose 30 MG; Start 11/30/16 at 06:00 FABIOLA WATERS MD Nov 30, 2016 14:46
--- NOTE | 2016-11-30 15:38 | CONS ---
Date/Time of Note Date/Time of Note DATE: 11/30/16 TIME: 15:36 Assessment/Plan Assessment/Plan Additional Assessment/Plan 1. Acute kidney injury secondary to severe prerenal azotemia and ischemic acute tubular necrosis from a bowel obstruction. 2. Severe hypernatremia secondary to a large free water deficit. 3. severe anemia s/p PRBC transfusion 4. Elevated troponin secondary to possible demand ischemia. 5. Sepsis of unknown etiology. 6. Possible small-bowel obstruction from fecal impaction. 7. History of ventilator-dependent respiratory failure secondary to anoxic encephalopathy from cardiac arrest, status post tracheostomy. 8. History of dysphagia, status post G-tube placement. 9. History of seizure disorder. 10. History of schizophrenia. 11. [facility] PLAN: s/p PRBC transfusion, now Hb stable, cr bumped to 1.8- monitor it continue IVF D5W with KCL at 60cc/hr IV abx per PMD and ID will follow up Further recommendations depend upon patient's clinical course. Plan of care dw Dr. Kayy Aceves/staff/patient. Consultation Date/Type/Reason Admit Date/Time Nov 21, 2016 at 02:41 Initial Consult Date 11/21/16 Type of Consultation: ID Referring Provider: RICHARD GIRARD MD 24 HR Interval Summary Free Text/Dictation remains stable, afebrile, BP stable ,s/p PRBC, Cr 1.8 Constitutional: requiring IVF, requiring O2 Exam/Review of Systems Vital Signs Vitals Vital Signs Date Time Temp Pulse Resp B/P Pulse Ox O2 Delivery O2 Flow Rate FiO2 11/30/16 13:20 69 19 98 40 11/30/16 11:55 98.5 137/60 Intake and Output 11/29/16 11/29/16 11/30/16 15:00 23:00 07:00 Intake Total 1180 ml 1250 ml Output Total 800 ml 1300 ml Balance 380 ml -50 ml Exam Constitutional: non-verbal Respiratory: diminished breath sounds Cardiovascular: edema, nl pulses Gastrointestinal: non-tender, soft Musculoskeletal: muscle weakness Results Result Diagram: 11/29/16 0950 11/29/16 0623 Medications Medications Current Medications Acetaminophen (Tylenol Liquid) 650 mg Q6H PRN PO PAIN LEVEL 1-3 OR FEVER Last administered on 11/26/16t 09:33; Admin Dose 650 MG; Start 11/21/16 at 03:00 Ondansetron HCl (Zofran Inj) 4 mg Q6H PRN IV NAUSEA AND/OR VOMITING; Start at 13:00 Morphine Sulfate (morphine) 2 mg Q4H PRN IV PAIN LEVEL 7-10; Start 11/21/16 at 13:00 Enoxaparin Sodium 30 mg 30 mg DAILY SC Last administered on 11/30/16 09:41; Admin Dose 30 MG; Start 11/22/16 at 09:00 Potassium Chloride/Dextrose (D5W + KCl 20 Meq) 1,000 ml @ 60 mls/hr [id number] IV Last administered on 11/29/16 18:04; Admin Dose 60 MLS/HR; Start 11/21/16 at 16:00 Aspirin (Aspirin) 81 mg DAILY PO Last administered on 11/30/16 09:32; Admin Dose 81 MG; Start 11/22/16 at 09:00 Metoprolol Tartrate 25 mg 25 mg BID PO Last administered on 11/30/16 09:32; Admin Dose 25 MG; Start 11/21/16 at 21:00 Piperacillin Sod/ Tazobactam Sod (Zosyn 2.25gm/ 50ml (Pmx)) 50 ml @ 100 mls/hr Q6 IVPB Last administered on 11/30/16 12:05; Admin Dose 100 MLS/HR; Start at 00:00 Lansoprazole (Prevacid) 30 mg DAILY@06 GTB Last administered on 11/30/16 05:17 ; Admin Dose 30 MG; Start 11/30/16 at 06:00 SHELLEY HERNANDEZ Nov 30, 2016 15:37 SHELLEY HERNANDEZ Nov 30, 2016 15:37
--- NOTE | 2016-11-30 16:17 | PN ---
DATE: 11/30/2016 SUBJECTIVE: Chart reviewed. No significant changes noted. The patient remains on ventilator on 40 % FIO2, saturating 98%. OBJECTIVE: VITAL SIGNS: Blood pressure 137/60, pulse 60, respirations 16, temperature 98.5. HEENT: Pupils are equal and reactive to light. NECK: Supple, no JVD noted, no cervical adenopathy, no carotid bruits heard. LUNGS: Few scattered rhonchi. CARDIOVASCULAR: S1, S2 normal. ABDOMEN: Soft, nontender. No organomegaly or masses noted. EXTREMITIES: No clubbing or cyanosis noted. NEUROLOGICAL: Encephalopathic. IMPRESSION: 1. Ventilator-dependent respiratory failure, hypoxemic. 2. Fecal impaction. 3. Bilateral pneumonia. 4. ____. 5. Acute renal failure. RECOMMENDATIONS: 1. Continue vent support. 2. Continue antibiotics per ID. 3. Nephrology followup. 4. Followup labs, x-ray, and KUB. Dictated By: JONNY YANEZ MD, MA/CY Conf#: [id number] DID#: [id number]
--- NOTE | 2016-11-30 17:36 | CONS ---
Date/Time of Note Date/Time of Note DATE: 11/30/16 TIME: 17:35 Assessment/Plan Assessment/Plan Chief Complaint/Hosp Course SUBJECTIVE: No acute changes. No fevers. The patient is lying comfortably in bed. Tolerates TF INDWELLINGS: Trach, PEG, Charles. ANTIMICROBIALS: Zosyn PHYSICAL EXAMINATION: GENERAL: Chronically ill-appearing, middle-aged, vegetative man who is in no distress. HEENT: Head atraumatic, normocephalic. Sclerae anicteric. Buccal mucosa dry. NECK: Supple. CHEST: Rise symmetrical. Breath sounds diminished to bases. HEART: S1, S2. ABDOMEN: Soft. Bowel tones hypoactive. EXTREMITIES: No cyanosis. ASSESSMENT: 1. Resolving sepsis. 2. S/p small-bowel obstruction likely secondary to severe fecal impaction==> resolved. 3. Chronic respiratory failure ?PNA 4. History of seizure disorder. 5. Persistent vegetative state. 6. Anemia PLAN: The patient remains stable. Continue abx, vent support per pulmonary, transfuse prn. GI rec-s. staff Problems: Consultation Date/Type/Reason Admit Date/Time Nov 21, 2016 at 02:41 Initial Consult Date 11/21/16 Type of Consultation: ID Referring Provider: RICHARD GIRARD MD Exam/Review of Systems Vital Signs Vitals Vital Signs Date Time Temp Pulse Resp B/P Pulse Ox O2 Delivery O2 Flow Rate FiO2 11/30/16 16:34 67 11/30/16 15:50 98.6 17 118/73 97 11/30/16 15:26 40 Intake and Output 11/29/16 11/29/16 11/30/16 15:00 23:00 07:00 Intake Total 1180 ml 1250 ml Output Total 800 ml 1300 ml Balance 380 ml -50 ml Results Result Diagram: 11/29/16 0950 11/29/16 0623 Medications Medications Current Medications Acetaminophen (Tylenol Liquid) 650 mg Q6H PRN PO PAIN LEVEL 1-3 OR FEVER Last administered on 11/26/16t 09:33; Admin Dose 650 MG; Start 11/21/16 at 03:00 Ondansetron HCl (Zofran Inj) 4 mg Q6H PRN IV NAUSEA AND/OR VOMITING; Start at 13:00 Morphine Sulfate (morphine) 2 mg Q4H PRN IV PAIN LEVEL 7-10; Start 11/21/16 at 13:00 Enoxaparin Sodium 30 mg 30 mg DAILY SC Last administered on 11/30/16 09:41; Admin Dose 30 MG; Start 11/22/16 at 09:00 Potassium Chloride/Dextrose (D5W + KCl 20 Meq) 1,000 ml @ 60 mls/hr [id number] IV Last administered on 11/29/16 18:04; Admin Dose 60 MLS/HR; Start 11/21/16 at 16:00 Aspirin (Aspirin) 81 mg DAILY PO Last administered on 11/30/16 09:32; Admin Dose 81 MG; Start 11/22/16 at 09:00 Metoprolol Tartrate 25 mg 25 mg BID PO Last administered on 11/30/16 09:32; Admin Dose 25 MG; Start 11/21/16 at 21:00 Piperacillin Sod/ Tazobactam Sod (Zosyn 2.25gm/ 50ml (Pmx)) 50 ml @ 100 mls/hr Q6 IVPB Last administered on 11/30/16 12:05; Admin Dose 100 MLS/HR; Start at 00:00 Lansoprazole (Prevacid) 30 mg DAILY@06 GTB Last administered on 11/30/16 05:17 ; Admin Dose 30 MG; Start 11/30/16 at 06:00 YURY YOON NP Nov 30, 2016 17:36
[2016-12-01] VITALS (25 sets, daily range): BP systolic 105–130; BP diastolic 61–80; PULSE 62–81; RESP 16–28
[2016-12-01] MEDS: PIPER-TAZO 2.25 GM (PMX) 50 ML IVPB SCH ×5 (00:18→23:36)
[2016-12-01] MEDS: D5W + KCL 20 MEQ 1,000 ML IV SCH ×2 (02:21→04:55)
[2016-12-01] MEDS: LANSOPRAZOLE 30 MG CAP GTB SCH (05:00)
--- NOTE | 2016-12-01 08:07 | CONS ---
Date/Time of Note Date/Time of Note DATE: 12/01/16 TIME: 08:05 Assessment/Plan Assessment/Plan Additional Assessment/Plan 1. Positive troponin in the setting of high fevers and tachycardia, now trending negative, likely demand event type 2 infarct. NL EF by echo this admit - no intervention planned - no intervention planned now. STABLE. 2. Abnormal electrocardiogram, with nonspecific ST-T and T-wave abnormalities- chronic. No sign ectopy on tele. NO SIGNIFICANT ARRHYTHMIA NOTED. 3. Supraventricular tachycardia, possibly sinus tachycardia in the setting of fevers versus atrial flutter - now in sinus at 60s. NOW IN SINUS. 4. Hypotension-overall improved but marginal. Better now. 5. Fevers - Rx with anti-bx. RESOLVED. 6. Anoxic encephalopathy - unchanged. 7. Chronic respiratory failure, status post tracheostomy - stable. 8. Hypernatremia-improved - BETTER 9. Hypokalemia.-improved 10. Anemia. 11. Hematuria. Consultation Date/Type/Reason Admit Date/Time Nov 21, 2016 at 02:41 Initial Consult Date 11/21/16 Type of Consultation: ID Referring Provider: RICHARD GIRARD MD 24 HR Interval Summary Free Text/Dictation NO acute events - no significant arrhythmia noted. ROS: No fever, no chills, no nausea, no vomiting, no diarrhea/constipation No recent weight changes No chest pain, no PND, no orthopnea No dizziness, blurred vision No thirst, no heat or cold intolerance (per nurse) Exam/Review of Systems Vital Signs Vitals Vital Signs Date Time Temp Pulse Resp B/P Pulse Ox O2 Delivery O2 Flow Rate FiO2 12/01/16 07:57 99.0 73 24 119/66 98 12/01/16 05:20 40 11/30/16 20:16 Mechanical Ventilator Intake and Output 11/30/16 11/30/16 12/01/16 15:00 23:00 07:00 Intake Total 680 ml 1270 ml Output Total 800 ml 1000 ml Balance -120 ml 270 ml Exam General: WN/WD/NAD, AOx 0 HEENT: Unicetric/atraumatic/EOMI (does not follow commands) NECK: trach Lymph: no lymphadenopathy HEART: regular with no S3, II/ systolic murmur at apex LUNGS: Coarse sounds ABD: soft, NT, ND, +BS : Intact Neuro: non focal SKIN: chronic changes EXT: trace edema Results Result Diagram: 11/29/16 0950 11/29/16 0623 Medications Medications Current Medications Acetaminophen (Tylenol Liquid) 650 mg Q6H PRN PO PAIN LEVEL 1-3 OR FEVER Last administered on 11/26/16 09:33; Admin Dose 650 MG; Start 11/21/16 at 03:00 Ondansetron HCl (Zofran Inj) 4 mg Q6H PRN IV NAUSEA AND/OR VOMITING; Start at 13:00 Morphine Sulfate (morphine) 2 mg Q4H PRN IV PAIN LEVEL 7-10; Start 11/21/16 at 13:00 Enoxaparin Sodium 30 mg 30 mg DAILY SC Last administered on 11/30/16 09:41; Admin Dose 30 MG; Start 11/22/16 at 09:00 Potassium Chloride/Dextrose (D5W + KCl 20 Meq) 1,000 ml @ 60 mls/hr [id number] IV Last administered on 12/01/16 04:55; Admin Dose 60 MLS/HR; Start 11/21/16 at 16:00 Aspirin (Aspirin) 81 mg DAILY PO Last administered on 11/30/16 09:32; Admin Dose 81 MG; Start 11/22/16 at 09:00 Metoprolol Tartrate 25 mg 25 mg BID PO Last administered on 11/30/16 20:18; Admin Dose 25 MG; Start 11/21/16 at 21:00 Piperacillin Sod/ Tazobactam Sod (Zosyn 2.25gm/ 50ml (Pmx)) 50 ml @ 100 mls/hr Q6 IVPB Last administered on 12/01/16 05:00; Admin Dose 100 MLS/HR; Start at 00:00 Lansoprazole (Prevacid) 30 mg DAILY@06 GTB Last administered on 12/01/16 05:00 ; Admin Dose 30 MG; Start 11/30/16 at 06:00 FABIOLA WATERS MD Dec 01, 2016 08:06
[2016-12-01 08:16] LABS: ADD SCAN DIFF NO
[2016-12-01 08:17] LABS: BASOPHILS % 0.2 % (0.0-2.0); EOSINOPHILS # 0.1 10^3/ul (0.0-0.5); EOSINOPHILS % 1.4 % (0.0-7.0); HEMATOCRIT 32.9 % (42.0-52.0); LYMPHOCYTES # 1.5 10^3/ul (0.8-2.9); LYMPHOCYTES % 16.3 % (15.0-51.0); MEAN CORPUSCULAR HEMOGLOBIN 26.6 pg (29.0-33.0); MEAN CORPUSCULAR HGB CONC 30.4 g/dl (32.0-37.0); MEAN CORPUSCULAR VOLUME 87.5 fl (82.0-101.0); MEAN PLATELET VOLUME 12.2 fl (7.4-10.4); MONOCYTE # 0.4 10^3/ul (0.3-0.9); MONOCYTES % 4.6 % (0.0-11.0); NEUTROPHILS % 77.1 % (39.0-77.0); RED BLOOD COUNT 3.76 10^6/ul (4.70-6.10); RED CELL DISTRIBUTION WIDTH 14.6 % (11.5-14.5); WHITE BLOOD COUNT 9.1 10^3/ul (4.8-10.8)
[2016-12-01 08:23] LABS: PLATELET COUNT 281 10^3/UL (140-415)
[2016-12-01 09:00] LABS: CALCIUM 9.7 mg/dl (8.4-10.2); CREATININE 2.05 mg/dl (0.61-1.24); POTASSIUM 4.6 mmol/L (3.5-5.1)
[2016-12-01] MEDS: METOPROLOL 25 MG TAB PO SCH ×2 (11:15→21:22)
[2016-12-01] MEDS: ASPIRIN 81 MG TAB PO SCH (11:16)
[2016-12-01] MEDS: ENOXAPARIN 30 MG/0.3 ML SYG SC SCH (11:17)
--- NOTE | 2016-12-01 13:14 | CONS ---
Date/Time of Note Date/Time of Note DATE: 12/01/16 TIME: 13:13 Assessment/Plan Assessment/Plan Chief Complaint/Hosp Course SUBJECTIVE: No acute changes. No fevers. The patient is lying comfortably in bed. INDWELLINGS: Trach, PEG, Charles. ANTIMICROBIALS: Zosyn PHYSICAL EXAMINATION: GENERAL: Chronically ill-appearing, middle-aged, vegetative man who is in no distress. HEENT: Head atraumatic, normocephalic. Sclerae anicteric. Buccal mucosa dry. NECK: Supple. CHEST: Rise symmetrical. Breath sounds diminished to bases. HEART: S1, S2. ABDOMEN: Soft. Bowel tones hypoactive. EXTREMITIES: No cyanosis. ASSESSMENT: 1. Resolving sepsis. 2. S/p small-bowel obstruction likely secondary to severe fecal impaction==> resolved. 3. Chronic respiratory failure ?PNA 4. History of seizure disorder. 5. Persistent vegetative state. 6. Anemia PLAN: The patient remains stable. Will dc abx in am, continue vent support per pulmonary, transfuse prn. GI rec-s. staff Problems: Consultation Date/Type/Reason Admit Date/Time Nov 21, 2016 at 02:41 Initial Consult Date 11/21/16 Type of Consultation: ID Referring Provider: RICHARD GIRARD MD Exam/Review of Systems Vital Signs Vitals Vital Signs Date Time Temp Pulse Resp B/P Pulse Ox O2 Delivery O2 Flow Rate FiO2 12/01/16 12:28 74 12/01/16 12:15 99.0 24 130/80 98 12/01/16 11:10 40 11/30/16 20:16 Mechanical Ventilator Intake and Output 11/30/16 11/30/16 12/01/16 15:00 23:00 07:00 Intake Total 680 ml 1270 ml Output Total 800 ml 1000 ml Balance -120 ml 270 ml Results Result Diagram: 12/01/16 0627 12/01/16 0627 Results 24 hrs Laboratory Tests Test 12/01/16 06:27 12/01/16 10:06 White Blood Count 9.1 Red Blood Count 3.76 #L Hemoglobin 10.0 L Hematocrit 32.9 L Mean Corpuscular Volume 87.5 Mean Corpuscular Hemoglobin 26.6 L Mean Corpuscular Hemoglobin Concent 30.4 L Red Cell Distribution Width 14.6 H Platelet Count 281 # Mean Platelet Volume 12.2 H Neutrophils % 77.1 H Lymphocytes % 16.3 Monocytes % 4.6 Eosinophils % 1.4 Basophils % 0.2 Nucleated Red Blood Cells % 0.0 Neutrophils # 7.0 Lymphocytes # 1.5 Monocytes # 0.4 Eosinophils # 0.1 Basophils # 0.0 Nucleated Red Blood Cells # 0.0 Sodium Level 141 Potassium Level 4.6 Chloride Level 107 Carbon Dioxide Level 21 Anion Gap 18 H Blood Urea Nitrogen 18 Creatinine 2.05 H Glucose Level 100 Calcium Level 9.7 Lab Scanned Report REFERENCE LAB Medications Medications Current Medications Acetaminophen (Tylenol Liquid) 650 mg Q6H PRN PO PAIN LEVEL 1-3 OR FEVER Last administered on 11/26/16 09:33; Admin Dose 650 MG; Start 11/21/16 at 03:00 Ondansetron HCl (Zofran Inj) 4 mg Q6H PRN IV NAUSEA AND/OR VOMITING; Start at 13:00 Morphine Sulfate (morphine) 2 mg Q4H PRN IV PAIN LEVEL 7-10; Start 11/21/16 at 13:00 Enoxaparin Sodium 30 mg 30 mg DAILY SC Last administered on 12/01/16 11:17; Admin Dose 30 MG; Start 11/22/16 at 09:00 Potassium Chloride/Dextrose (D5W + KCl 20 Meq) 1,000 ml @ 60 mls/hr [id number] IV Last administered on 12/01/16 04:55; Admin Dose 60 MLS/HR; Start 11/21/16 at 16:00 Aspirin (Aspirin) 81 mg DAILY PO Last administered on 12/01/16 11:16; Admin Dose 81 MG; Start 11/22/16 at 09:00 Metoprolol Tartrate 25 mg 25 mg BID PO Last administered on 12/01/16 11:15; Admin Dose 25 MG; Start 11/21/16 at 21:00 Piperacillin Sod/ Tazobactam Sod (Zosyn 2.25gm/ 50ml (Pmx)) 50 ml @ 100 mls/hr Q6 IVPB Last administered on 12/01/16 11:16; Admin Dose 100 MLS/HR; Start at 00:00 Lansoprazole (Prevacid) 30 mg DAILY@06 GTB Last administered on 12/01/16 05:00 ; Admin Dose 30 MG; Start 11/30/16 at 06:00 YURY YOON NP Dec 01, 2016 13:14
--- NOTE | 2016-12-01 14:22 | CONS ---
Date/Time of Note Date/Time of Note DATE: 12/01/16 TIME: 14:21 Assessment/Plan Assessment/Plan Additional Assessment/Plan Ventilator setting; AC of 16, tidal volume 450, PEEP of 5, 40% FiO2. Assessment recommendations; 1. Patient admitted for sepsis due to bilateral pneumonia and also had bowel obstruction due to fecal impaction with interval improvement. 2. 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 3. Anemia. 3. Worsening renal function. Continue current supportive care. Prognosis is guarded. Consultation Date/Type/Reason Admit Date/Time Nov 21, 2016 at 02:41 Initial Consult Date 11/21/16 Type of Consultation: Pulmonary Referring Provider: RICHARD GIRARD MD 24 HR Interval Summary Free Text/Dictation Patient condition remains stable. Remains completely unresponsive to any commands. Remains awake however. Has remained hemodynamically stable. Vinayak; middle-aged male, on ventilator via tracheostomy currently in no distress. Exam/Review of Systems Vital Signs Vitals Vital Signs Date Time Temp Pulse Resp B/P Pulse Ox O2 Delivery O2 Flow Rate FiO2 12/01/16 12:28 74 12/01/16 12:15 99.0 24 130/80 98 12/01/16 11:10 40 11/30/16 20:16 Mechanical Ventilator Intake and Output 11/30/16 11/30/16 12/01/16 15:00 23:00 07:00 Intake Total 680 ml 1270 ml Output Total 800 ml 1000 ml Balance -120 ml 270 ml Exam HEENT exam; supple neck, no JVD. No lymphadenopathy. Midline trachea. No thyromegaly. Tracheostomy in place with clean insertion site. Patient multiple carious teeth. Pupils are small bilaterally. Chest examined; diminished but clear breath sound. S1-S2 audible, no murmurs. Regular rhythm. Abdomen exam is; soft, G-tube in place. No organomegaly. Bowel sounds are audible. Extremity exam; no peripheral edema. Patient does have contractures involving all 4 extremities. DAMPPROOFER examination; patient remains awake but unresponsive to any commands. Results Result Diagram: 12/01/16 0627 12/01/16626 Results 24 hrs Laboratory Tests Test 12/01/16 06:27 12/01/16 10:06 White Blood Count 9.1 Red Blood Count 3.76 #L Hemoglobin 10.0 L Hematocrit 32.9 L Mean Corpuscular Volume 87.5 Mean Corpuscular Hemoglobin 26.6 L Mean Corpuscular Hemoglobin Concent 30.4 L Red Cell Distribution Width 14.6 H Platelet Count 281 # Mean Platelet Volume 12.2 H Neutrophils % 77.1 H Lymphocytes % 16.3 Monocytes % 4.6 Eosinophils % 1.4 Basophils % 0.2 Nucleated Red Blood Cells % 0.0 Neutrophils # 7.0 Lymphocytes # 1.5 Monocytes # 0.4 Eosinophils # 0.1 Basophils # 0.0 Nucleated Red Blood Cells # 0.0 Sodium Level 141 Potassium Level 4.6 Chloride Level 107 Carbon Dioxide Level 21 Anion Gap 18 H Blood Urea Nitrogen 18 Creatinine 2.05 H Glucose Level 100 Calcium Level 9.7 Lab Scanned Report REFERENCE LAB Medications Medications Current Medications Acetaminophen (Tylenol Liquid) 650 mg Q6H PRN PO PAIN LEVEL 1-3 OR FEVER Last administered on 11/26/16 09:33; Admin Dose 650 MG; Start 11/21/16 at 03:00 Ondansetron HCl (Zofran Inj) 4 mg Q6H PRN IV NAUSEA AND/OR VOMITING; Start at 13:00 Morphine Sulfate (morphine) 2 mg Q4H PRN IV PAIN LEVEL 7-10; Start 11/21/16 at 13:00 Enoxaparin Sodium 30 mg 30 mg DAILY SC Last administered on 12/01/16 11:17; Admin Dose 30 MG; Start 11/22/16 at 09:00 Potassium Chloride/Dextrose (D5W + KCl 20 Meq) 1,000 ml @ 60 mls/hr [id number] IV Last administered on 12/01/16 04:55; Admin Dose 60 MLS/HR; Start 11/21/16 at 16:00 Aspirin (Aspirin) 81 mg DAILY PO Last administered on 12/01/16 11:16; Admin Dose 81 MG; Start 11/22/16 at 09:00 Metoprolol Tartrate 25 mg 25 mg BID PO Last administered on 12/01/16 11:15; Admin Dose 25 MG; Start 11/21/16 at 21:00 Piperacillin Sod/ Tazobactam Sod (Zosyn 2.25gm/ 50ml (Pmx)) 50 ml @ 100 mls/hr Q6 IVPB Last administered on 12/01/16 11:16; Admin Dose 100 MLS/HR; Start at 00:00; Stop 12/02/16 at 06:00 Lansoprazole (Prevacid) 30 mg DAILY@06 GTB Last administered on 12/01/16t 05:00 ; Admin Dose 30 MG; Start 11/30/16 at 06:00 MI JEFFERS Dec 01, 2016 14:22
--- NOTE | 2016-12-01 17:50 | CONS ---
Date/Time of Note Date/Time of Note DATE: 12/01/16 TIME: 17:47 Assessment/Plan Assessment/Plan Additional Assessment/Plan 1. Acute kidney injury secondary to severe prerenal azotemia and ischemic acute tubular necrosis from a bowel obstruction. 2. Severe hypernatremia secondary to a large free water deficit. 3. Hypokalemia. 4. Elevated troponin secondary to possible demand ischemia. 5. Sepsis of unknown etiology. 6. Possible small-bowel obstruction from fecal impaction. 7. History of ventilator-dependent respiratory failure secondary to anoxic encephalopathy from cardiac arrest, status post tracheostomy. 8. History of dysphagia, status post G-tube placement. 9. History of seizure disorder. 10. History of schizophrenia. 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 PLAN: change IVF to D51/2NS with 20mEQ KCL at 60 cc/hr s/p family meetign today, code status has been changed to chemical code only Cr bumped to 2.05 today, will monitor IV abx per PMD will follow up Consultation Date/Type/Reason Admit Date/Time Nov 21, 2016 at 02:41 Initial Consult Date 11/21/16 Type of Consultation: NEPHROLOGY Referring Provider: RICHARD GIRARD MD 24 HR Interval Summary Free Text/Dictation no acute events, Chemical code only Exam/Review of Systems Vital Signs Vitals Vital Signs Date Time Temp Pulse Resp B/P Pulse Ox O2 Delivery O2 Flow Rate FiO2 12/01/16 17:10 65 19 97 40 12/01/16 15:36 98.4 105/65 11/30/16 20:16 Mechanical Ventilator Intake and Output 11/30/16 11/30/16 12/01/16 15:00 23:00 07:00 Intake Total 680 ml 1270 ml Output Total 800 ml 1000 ml Balance -120 ml 270 ml Results Result Diagram: 12/01/16 0627 12/01/16 0627 Results 24 hrs Laboratory Tests Test 12/01/16 06:27 12/01/16 10:06 White Blood Count 9.1 Red Blood Count 3.76 #L Hemoglobin 10.0 L Hematocrit 32.9 L Mean Corpuscular Volume 87.5 Mean Corpuscular Hemoglobin 26.6 L Mean Corpuscular Hemoglobin Concent 30.4 L Red Cell Distribution Width 14.6 H Platelet Count 281 # Mean Platelet Volume 12.2 H Neutrophils % 77.1 H Lymphocytes % 16.3 Monocytes % 4.6 Eosinophils % 1.4 Basophils % 0.2 Nucleated Red Blood Cells % 0.0 Neutrophils # 7.0 Lymphocytes # 1.5 Monocytes # 0.4 Eosinophils # 0.1 Basophils # 0.0 Nucleated Red Blood Cells # 0.0 Sodium Level 141 Potassium Level 4.6 Chloride Level 107 Carbon Dioxide Level 21 Anion Gap 18 H Blood Urea Nitrogen 18 Creatinine 2.05 H Glucose Level 100 Calcium Level 9.7 Lab Scanned Report REFERENCE LAB Medications Medications Current Medications Acetaminophen (Tylenol Liquid) 650 mg Q6H PRN PO PAIN LEVEL 1-3 OR FEVER Last administered on 11/26/16 09:33; Admin Dose 650 MG; Start 11/21/16 at 03:00 Ondansetron HCl (Zofran Inj) 4 mg Q6H PRN IV NAUSEA AND/OR VOMITING; Start at 13:00 Morphine Sulfate (morphine) 2 mg Q4H PRN IV PAIN LEVEL 7-10; Start 11/21/16 at 13:00 Enoxaparin Sodium 30 mg 30 mg DAILY SC Last administered on 12/01/16 11:17; Admin Dose 30 MG; Start 11/22/16 at 09:00 Potassium Chloride/Dextrose (D5W + KCl 20 Meq) 1,000 ml @ 60 mls/hr [id number] IV Last administered on 12/01/16 04:55; Admin Dose 60 MLS/HR; Start 11/21/16 at 16:00 Aspirin (Aspirin) 81 mg DAILY PO Last administered on 12/01/16 11:16; Admin Dose 81 MG; Start 11/22/16 at 09:00 Metoprolol Tartrate 25 mg 25 mg BID PO Last administered on 12/01/16 11:15; Admin Dose 25 MG; Start 11/21/16 at 21:00 Piperacillin Sod/ Tazobactam Sod (Zosyn 2.25gm/ 50ml (Pmx)) 50 ml @ 100 mls/hr Q6 IVPB Last administered on 12/01/16 11:16; Admin Dose 100 MLS/HR; Start at 00:00; Stop 12/02/16 at 06:00 Lansoprazole (Prevacid) 30 mg DAILY@06 GTB Last administered on 12/01/16 05:00 ; Admin Dose 30 MG; Start 11/30/16 at 06:00 UMM MANNING MD Dec 01, 2016 17:50
--- NOTE | 2016-12-01 18:07 | PN ---
Date/Time of Note Date/Time of Note DATE: 12/01/16 TIME: 18:04 Assessment/Plan VTE Prophylaxis VTE Prophylaxis Intervention: SCD's Lines/Catheters IV [facility]from [facility] Central Line Central line still needed: Yes Urinary Cath still in place: Yes Reason Cath still needed: urinary retention Assessment/Plan Chief Complaint/Hosp Course Patient remains hemodynamically stable afebrile, worsening renal function. ASSESSMENT AND PLAN: - Sepsis of unknown etiology, with shock, resolving. Dr. Matias is following in infection disease consultation. Continue antibiotics per ID. - Possible small-bowel obstruction vs ileus, resolved. Dr. Murcia is following in general surgery consultation. Dr. Walton is following in gastroenterology consultation - Acute kidney injury with electrolyte imbalances, resolved. Dr. Aceves is following in nephrology consultation. - Elevated troponin, most likely secondary to demand ischemia. Trending down. Dr. Flor is following in cardiology consultation. - Ventilator-dependent respiratory failure. - Dysphagia with G-tube. - Seizure disorder. Continue Keppra. - Anoxic encephalopathy, status post cardiac arrest. - Schizophrenia by history. Continue Lovenox for deep venous thrombosis prophylaxis and Pepcid for peptic ulcer disease prophylaxis. Further recommendations based on clinical course. Plan of care discussed with Dr. Courtney. Problems: Exam/Review of Systems Vital Signs Vitals Vital Signs Date Time Temp Pulse Resp B/P Pulse Ox O2 Delivery O2 Flow Rate FiO2 12/01/16 17:10 65 19 97 40 12/01/16 15:36 98.4 105/65 11/30/16 20:16 Mechanical Ventilator Intake and Output 11/30/16 11/30/16 12/01/16 15:00 23:00 07:00 Intake Total 680 ml 1270 ml Output Total 800 ml 1000 ml Balance -120 ml 270 ml Exam Constitutional: non-verbal Head: normocephalic Neck: other (Tracheostomy), supple Cardiovascular: nl pulses, regular rate and rhythm Gastrointestinal: non-tender, soft, GT Extremities: normal pulses, other (Contracted) Results Result Diagram: 12/01/1662612/01/16626 Results 24 hrs Laboratory Tests Test 12/01/16 06:27 12/01/16 10:06 White Blood Count 9.1 Red Blood Count 3.76 #L Hemoglobin 10.0 L Hematocrit 32.9 L Mean Corpuscular Volume 87.5 Mean Corpuscular Hemoglobin 26.6 L Mean Corpuscular Hemoglobin Concent 30.4 L Red Cell Distribution Width 14.6 H Platelet Count 281 # Mean Platelet Volume 12.2 H Neutrophils % 77.1 H Lymphocytes % 16.3 Monocytes % 4.6 Eosinophils % 1.4 Basophils % 0.2 Nucleated Red Blood Cells % 0.0 Neutrophils # 7.0 Lymphocytes # 1.5 Monocytes # 0.4 Eosinophils # 0.1 Basophils # 0.0 Nucleated Red Blood Cells # 0.0 Sodium Level 141 Potassium Level 4.6 Chloride Level 107 Carbon Dioxide Level 21 Anion Gap 18 H Blood Urea Nitrogen 18 Creatinine 2.05 H Glucose Level 100 Calcium Level 9.7 Lab Scanned Report REFERENCE LAB Medications Medications Current Medications Acetaminophen (Tylenol Liquid) 650 mg Q6H PRN PO PAIN LEVEL 1-3 OR FEVER Last administered on 11/26/16 09:33; Admin Dose 650 MG; Start 11/21/16 at 03:00 Ondansetron HCl (Zofran Inj) 4 mg Q6H PRN IV NAUSEA AND/OR VOMITING; Start at 13:00 Morphine Sulfate (morphine) 2 mg Q4H PRN IV PAIN LEVEL 7-10; Start 11/21/16 at 13:00 Enoxaparin Sodium (Lovenox) 30 mg DAILY SC Last administered on 12/01/16 11:17 ; Admin Dose 30 MG; Start 11/22/16 at 09:00 Aspirin (Aspirin) 81 mg DAILY PO Last administered on 12/01/16 11:16; Admin Dose 81 MG; Start 11/22/16 at 09:00 Metoprolol Tartrate 25 mg 25 mg BID PO Last administered on 12/01/16 11:15; Admin Dose 25 MG; Start 11/21/16 at 21:00 Piperacillin Sod/ Tazobactam Sod (Zosyn 2.25gm/ 50ml (Pmx)) 50 ml @ 100 mls/hr Q6 IVPB Last administered on 12/01/16 11:16; Admin Dose 100 MLS/HR; Start at 00:00; Stop 12/02/16 at 06:00 Lansoprazole 30 mg 30 mg DAILY@06 GTB Last administered on 12/01/16 05:00; Admin Dose 30 MG; Start 11/30/16 at 06:00 Potassium Chloride/Dextrose/ Sod Cl (D5-1/2ns + KCl 20 Meq) 1,000 ml @ 60 mls/ hr [id number] IV ; Start 12/01/16 at 18:00 JH WISDOM Dec 01, 2016 18:06
[2016-12-01] MEDS: D5W-0.45 NACL + KCL 20 MEQ 1,000 ML IV SCH (18:42)
[2016-12-02] VITALS (24 sets, daily range): BP systolic 98–148; BP diastolic 56–82; PULSE 50–114; RESP 14–36
[2016-12-02] MEDS: PIPER-TAZO 2.25 GM (PMX) 50 ML IVPB SCH (06:04)
[2016-12-02] MEDS: LANSOPRAZOLE 30 MG CAP GTB SCH (06:04)
[2016-12-02 06:51] LABS: ADD SCAN DIFF NO
[2016-12-02 06:59] LABS: BASOPHILS % 0.4 % (0.0-2.0); EOSINOPHILS # 0.1 10^3/ul (0.0-0.5); EOSINOPHILS % 1.4 % (0.0-7.0); HEMATOCRIT 33.8 % (42.0-52.0); HEMOGLOBIN 10.6 g/dl (14.0-18.0); LYMPHOCYTES # 1.8 10^3/ul (0.8-2.9); LYMPHOCYTES % 21.5 % (15.0-51.0); MEAN CORPUSCULAR HEMOGLOBIN 27.3 pg (29.0-33.0); MEAN CORPUSCULAR HGB CONC 31.4 g/dl (32.0-37.0); MEAN CORPUSCULAR VOLUME 87.1 fl (82.0-101.0); MEAN PLATELET VOLUME 10.8 fl (7.4-10.4); MONOCYTE # 0.5 10^3/ul (0.3-0.9); MONOCYTES % 5.9 % (0.0-11.0); NEUTROPHILS % 70.3 % (39.0-77.0); PLATELET COUNT 362 10^3/UL (140-415); RED BLOOD COUNT 3.88 10^6/ul (4.70-6.10); RED CELL DISTRIBUTION WIDTH 14.5 % (11.5-14.5); WHITE BLOOD COUNT 8.5 10^3/ul (4.8-10.8)
[2016-12-02 07:41] LABS: CALCIUM 9.8 mg/dl (8.4-10.2); CREATININE 2.07 mg/dl (0.61-1.24); POTASSIUM 4.4 mmol/L (3.5-5.1)
[2016-12-02] MEDS: METOPROLOL 25 MG TAB PO SCH ×2 (08:29→21:00)
[2016-12-02] MEDS: ASPIRIN 81 MG TAB PO SCH (08:29)
[2016-12-02] MEDS: ENOXAPARIN 30 MG/0.3 ML SYG SC SCH (09:15)
[2016-12-02] MEDS: D5W-0.45 NACL + KCL 20 MEQ 1,000 ML IV SCH (11:30)
--- NOTE | 2016-12-02 13:22 | CONS ---
Date/Time of Note Date/Time of Note DATE: 12/02/16 TIME: 13:20 Assessment/Plan Assessment/Plan Chief Complaint/Hosp Course IMPRESSION: 1. Positive troponin in the setting of high fevers and tachycardia, now trending negative, likely demand event type 2 infarct. NL EF by echo this admit 2. Abnormal electrocardiogram, with nonspecific ST-T and T-wave abnormalities. 3. Supraventricular tachycardia, possibly sinus tachycardia in the setting of fevers versus atrial flutter-no recurrence 4. Hypotension-overall improved but marginal. 5. Fevers. 6. Anoxic encephalopathy. 7. Chronic respiratory failure, status post tracheostomy. 8. Hypernatremia-improved 9. Hypokalemia.-improved 10. Anemia. 11. Hematuria. 12. fever Recc: -Tele -Continue low dose BB as tolerated only and given marginal BP will reduce dose -Continue asa -Follow volume status closely -Continue abx's and f/u cx data Problems: Consultation Date/Type/Reason Admit Date/Time Nov 21, 2016 at 02:41 Initial Consult Date 11/21/16 Type of Consultation: cardiology Reason for Consultation positive troponin Referring Provider: RICHARD GIRARD MD Exam/Review of Systems Vital Signs Vitals Vital Signs Date Time Temp Pulse Resp B/P Pulse Ox O2 Delivery O2 Flow Rate FiO2 12/02/16 12:27 93 12/02/16 11:08 98.7 20 104/65 99 12/02/16 11:00 40 11/30/16 20:16 Mechanical Ventilator Intake and Output 12/01/16 12/01/16 12/02/16 15:00 23:00 07:00 Intake Total 1550 ml 1480 ml Output Total 1100 ml 1400 ml Balance 450 ml 80 ml Exam Review of Systems: CONSTITUTIONAL: No fevers, chills. PULMONARY: No sob CARDIOVASCULAR: No chest pain/palpitations GASTROINTESTINAL: No nausea/vomiting. GENITOURINARY: No hematuria/dysuria. MUSCULOSKELETAL: No myagias/arthalgias. PSYCHIATRIC: The patient denies depression. NEUROLOGIC: No weakness Constitutional: alert Psych: no complaints Head: normocephalic ENMT: mucosa pink and moist Neck: jvd (9 cm water), supple Respiratory: diminished breath sounds (at bases/B) Cardiovascular: regular rate and rhythm Gastrointestinal: non-tender, soft Musculoskeletal: other (contractrures) Extremities: edema (none) Neurological: other (Encephalopathic) Results Result Diagram: 12/02/16 0538 12/02/16 0538 Results 24 hrs Laboratory Tests Test 12/02/16 05:38 White Blood Count 8.5 Red Blood Count 3.88 L Hemoglobin 10.6 L Hematocrit 33.8 L Mean Corpuscular Volume 87.1 Mean Corpuscular Hemoglobin 27.3 L Mean Corpuscular Hemoglobin Concent 31.4 L Red Cell Distribution Width 14.5 Platelet Count 362 # Mean Platelet Volume 10.8 H Neutrophils % 70.3 Lymphocytes % 21.5 Monocytes % 5.9 Eosinophils % 1.4 Basophils % 0.4 Nucleated Red Blood Cells % 0.0 Neutrophils # 6.0 Lymphocytes # 1.8 Monocytes # 0.5 Eosinophils # 0.1 Basophils # 0.0 Nucleated Red Blood Cells # 0.0 Sodium Level 144 Potassium Level 4.4 Chloride Level 109 Carbon Dioxide Level 23 Anion Gap 16 Blood Urea Nitrogen 19 Creatinine 2.07 H Glucose Level 104 Calcium Level 9.8 Medications Medications Current Medications Acetaminophen (Tylenol Liquid) 650 mg Q6H PRN PO PAIN LEVEL 1-3 OR FEVER Last administered on 11/26/16 09:33; Admin Dose 650 MG; Start 11/21/16 at 03:00 Ondansetron HCl (Zofran Inj) 4 mg Q6H PRN IV NAUSEA AND/OR VOMITING; Start at 13:00 Morphine Sulfate (morphine) 2 mg Q4H PRN IV PAIN LEVEL 7-10; Start 11/21/16 at 13:00 Enoxaparin Sodium (Lovenox) 30 mg DAILY SC Last administered on 12/02/16 09:15 ; Admin Dose 30 MG; Start 11/22/16 at 09:00 Aspirin (Aspirin) 81 mg DAILY PO Last administered on 12/02/16 08:29; Admin Dose 81 MG; Start 11/22/16 at 09:00 Metoprolol Tartrate (Lopressor) 25 mg BID PO Last administered on 12/01/16 21: 22; Admin Dose 25 MG; Start 11/21/16 at 21:00 Lansoprazole 30 mg 30 mg DAILY@06 GTB Last administered on 12/02/16 06:04; Admin Dose 30 MG; Start 11/30/16 at 06:00 Potassium Chloride/Dextrose/ Sod Cl (D5-1/2ns + KCl 20 Meq) 1,000 ml @ 60 mls/ hr [id number] IV Last administered on 12/02/16t 11:30; Admin Dose 60 MLS/HR; Start 12/01/16 at 18:00 ELOINA MISHRA Dec 02, 2016 13:22
--- NOTE | 2016-12-02 13:30 | CONS ---
Date/Time of Note Date/Time of Note DATE: 12/02/16 TIME: 13:28 Assessment/Plan Assessment/Plan Chief Complaint/Hosp Course SUBJECTIVE: No acute changes. The patient is lying comfortably in bed. Tm 100.1 INDWELLINGS: Trach, PEG, Charles. PHYSICAL EXAMINATION: GENERAL: Chronically ill-appearing, middle-aged, vegetative man who is in no distress. HEENT: Head atraumatic, normocephalic. Sclerae anicteric. Buccal mucosa dry. NECK: Supple. CHEST: Rise symmetrical. Breath sounds diminished to bases. HEART: S1, S2. ABDOMEN: Soft. Bowel tones hypoactive. EXTREMITIES: No cyanosis. ASSESSMENT: 1. Resolving sepsis. 2. S/p small-bowel obstruction likely secondary to severe fecal impaction==> resolved. 3. Chronic respiratory failure/PNA 4. History of seizure disorder. 5. Persistent vegetative state. 6. Anemia PLAN: The patient remains stable, completed abx, continue vent support per pulmonary, reculture prn. DW staff Problems: Consultation Date/Type/Reason Admit Date/Time Nov 21, 2016 at 02:41 Initial Consult Date 11/21/16 Type of Consultation: id Referring Provider: RICHARD GIRARD MD Exam/Review of Systems Vital Signs Vitals Vital Signs Date Time Temp Pulse Resp B/P Pulse Ox O2 Delivery O2 Flow Rate FiO2 12/02/16 12:27 93 12/02/16 11:08 98.7 20 104/65 99 12/02/16 11:00 40 11/30/16 20:16 Mechanical Ventilator Intake and Output 12/01/16 12/01/16 12/02/16 15:00 23:00 07:00 Intake Total 1550 ml 1480 ml Output Total 1100 ml 1400 ml Balance 450 ml 80 ml Results Result Diagram: 12/02/16 0538 12/02/16 0538 Results 24 hrs Laboratory Tests Test 12/02/16 05:38 White Blood Count 8.5 Red Blood Count 3.88 L Hemoglobin 10.6 L Hematocrit 33.8 L Mean Corpuscular Volume 87.1 Mean Corpuscular Hemoglobin 27.3 L Mean Corpuscular Hemoglobin Concent 31.4 L Red Cell Distribution Width 14.5 Platelet Count 362 # Mean Platelet Volume 10.8 H Neutrophils % 70.3 Lymphocytes % 21.5 Monocytes % 5.9 Eosinophils % 1.4 Basophils % 0.4 Nucleated Red Blood Cells % 0.0 Neutrophils # 6.0 Lymphocytes # 1.8 Monocytes # 0.5 Eosinophils # 0.1 Basophils # 0.0 Nucleated Red Blood Cells # 0.0 Sodium Level 144 Potassium Level 4.4 Chloride Level 109 Carbon Dioxide Level 23 Anion Gap 16 Blood Urea Nitrogen 19 Creatinine 2.07 H Glucose Level 104 Calcium Level 9.8 Medications Medications Current Medications Acetaminophen (Tylenol Liquid) 650 mg Q6H PRN PO PAIN LEVEL 1-3 OR FEVER Last administered on 11/26/16 09:33; Admin Dose 650 MG; Start 11/21/16 at 03:00 Ondansetron HCl (Zofran Inj) 4 mg Q6H PRN IV NAUSEA AND/OR VOMITING; Start at 13:00 Morphine Sulfate (morphine) 2 mg Q4H PRN IV PAIN LEVEL 7-10; Start 11/21/16 at 13:00 Enoxaparin Sodium (Lovenox) 30 mg DAILY SC Last administered on 12/02/16 09:15 ; Admin Dose 30 MG; Start 11/22/16 at 09:00 Aspirin (Aspirin) 81 mg DAILY PO Last administered on 12/02/16 08:29; Admin Dose 81 MG; Start 11/22/16 at 09:00 Lansoprazole 30 mg 30 mg DAILY@06 GTB Last administered on 12/02/16 06:04; Admin Dose 30 MG; Start 11/30/16 at 06:00 Potassium Chloride/Dextrose/ Sod Cl (D5-1/2ns + KCl 20 Meq) 1,000 ml @ 60 mls/ hr [id number] IV Last administered on 12/02/16 11:30; Admin Dose 60 MLS/HR; Start 12/01/16 at 18:00 Metoprolol Tartrate (Lopressor) 12.5 mg BID PO ; Start 12/02/16 at 21:00; Status YURY CHUNG NP Dec 02, 2016 13:30
--- NOTE | 2016-12-02 14:25 | CONS ---
Date/Time of Note Date/Time of Note DATE: 12/02/16 TIME: 14:23 Assessment/Plan Assessment/Plan Additional Assessment/Plan Ventilator setting; AC of 16, tidal volume 450, PEEP of 5, 35% FiO2. Assessment recommendations; 1. Patient admitted with sepsis due to fecal impaction and bilateral pneumonia with significant clinical improvement. 2. History of hypertension. 3. 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 Patient remains ventilator dependent. 4. Renal insufficiency. Continue current treatment. Monitor renal function. Consultation Date/Type/Reason Admit Date/Time Nov 21, 2016 at 02:41 Initial Consult Date 11/21/16 Type of Consultation: Pulmonary Referring Provider: RICHARD GIRARD MD 24 HR Interval Summary Free Text/Dictation Patient condition remains unchanged. Remains unresponsive. Has remained hemodynamically stable. Vinayak; young male, on ventilator via tracheostomy currently in no distress. Unresponsive. The patient remains awake. Exam/Review of Systems Vital Signs Vitals Vital Signs Date Time Temp Pulse Resp B/P Pulse Ox O2 Delivery O2 Flow Rate FiO2 12/02/16 13:10 69 16 99 40 12/02/16 11:08 98.7 104/65 11/30/16 20:16 Mechanical Ventilator Intake and Output 12/01/16 12/01/16 12/02/16 15:00 23:00 07:00 Intake Total 1550 ml 1480 ml Output Total 1100 ml 1400 ml Balance 450 ml 80 ml Exam HEENT examination; supple neck, no JVD. No lymphadenopathy. Midline trachea. No thyromegaly. Tracheostomy in place. Patient has multiple carious teeth. Chest examination; diminished but clear breath sound. S1-S2 audible, no murmurs. Abdomen examination; soft, G-tube in place. Bowel sounds audible. Extremity exam; no peripheral edema. Patient has contractures involving all 4 extremities. [employer] exam; patient remains awake but unresponsive to any commands. Results Result Diagram: 12/02/16 0538 12/02/16 0538 Results 24 hrs Laboratory Tests Test 12/02/16 05:38 White Blood Count 8.5 Red Blood Count 3.88 L Hemoglobin 10.6 L Hematocrit 33.8 L Mean Corpuscular Volume 87.1 Mean Corpuscular Hemoglobin 27.3 L Mean Corpuscular Hemoglobin Concent 31.4 L Red Cell Distribution Width 14.5 Platelet Count 362 # Mean Platelet Volume 10.8 H Neutrophils % 70.3 Lymphocytes % 21.5 Monocytes % 5.9 Eosinophils % 1.4 Basophils % 0.4 Nucleated Red Blood Cells % 0.0 Neutrophils # 6.0 Lymphocytes # 1.8 Monocytes # 0.5 Eosinophils # 0.1 Basophils # 0.0 Nucleated Red Blood Cells # 0.0 Sodium Level 144 Potassium Level 4.4 Chloride Level 109 Carbon Dioxide Level 23 Anion Gap 16 Blood Urea Nitrogen 19 Creatinine 2.07 H Glucose Level 104 Calcium Level 9.8 Medications Medications Current Medications Acetaminophen (Tylenol Liquid) 650 mg Q6H PRN PO PAIN LEVEL 1-3 OR FEVER Last administered on 11/26/16 09:33; Admin Dose 650 MG; Start 11/21/16 at 03:00 Ondansetron HCl (Zofran Inj) 4 mg Q6H PRN IV NAUSEA AND/OR VOMITING; Start at 13:00 Morphine Sulfate (morphine) 2 mg Q4H PRN IV PAIN LEVEL 7-10; Start 11/21/16 at 13:00 Enoxaparin Sodium (Lovenox) 30 mg DAILY SC Last administered on 12/02/16 09:15 ; Admin Dose 30 MG; Start 11/22/16 at 09:00 Aspirin (Aspirin) 81 mg DAILY PO Last administered on 12/02/16 08:29; Admin Dose 81 MG; Start 11/22/16 at 09:00 Lansoprazole 30 mg 30 mg DAILY@06 GTB Last administered on 12/02/16 06:04; Admin Dose 30 MG; Start 11/30/16 at 06:00 Potassium Chloride/Dextrose/ Sod Cl (D5-1/2ns + KCl 20 Meq) 1,000 ml @ 60 mls/ hr [id number] IV Last administered on 12/02/16 11:30; Admin Dose 60 MLS/HR; Start 12/01/16 at 18:00 Metoprolol Tartrate (Lopressor) 12.5 mg BID PO ; Start 12/02/16 at 21:00 MI JEFFERS 27, 2017 14:25
--- NOTE | 2016-12-02 16:42 | PN ---
Date/Time of Note Date/Time of Note DATE: 12/02/16 TIME: 16:40 Assessment/Plan VTE Prophylaxis VTE Prophylaxis Intervention: SCD's Lines/Catheters IV Catheter Type (from [facility]): Central Line Central line still needed: Yes Urinary Cath still in place: Yes Reason Cath still needed: urinary retention Assessment/Plan Chief Complaint/Hosp Course Patient with worsening renal function, continue IV fluids, patient's continues to have low-grade fever. ASSESSMENT AND PLAN: - Acute kidney injury. Dr. Aceves is following in nephrology consultation. - Sepsis of unknown etiology, with shock, resolving. Dr. Matias is following in infection disease consultation. Currently off antibiotics. - Possible small-bowel obstruction vs ileus, resolved. Dr. Murcia is following in general surgery consultation. Dr. Walton is following in gastroenterology consultation - Elevated troponin, most likely secondary to demand ischemia. Trending down. Dr. Flor is following in cardiology consultation. - Ventilator-dependent respiratory failure. - Dysphagia with G-tube. - Seizure disorder. Continue Keppra. - Anoxic encephalopathy, status post cardiac arrest. - Schizophrenia by history. Continue Lovenox for deep venous thrombosis prophylaxis and Pepcid for peptic ulcer disease prophylaxis. Further recommendations based on clinical course. Plan of care discussed with Dr. Courtney. Problems: Exam/Review of Systems Vital Signs Vitals Vital Signs Date Time Temp Pulse Resp B/P Pulse Ox O2 Delivery O2 Flow Rate FiO2 12/02/16 15:38 98.5 83 20 107/75 100 12/02/16 15:10 35 11/30/16 20:16 Mechanical Ventilator Intake and Output 12/01/16 12/01/16 12/02/16 15:00 23:00 07:00 Intake Total 1550 ml 1480 ml Output Total 1100 ml 1400 ml Balance 450 ml 80 ml Exam Constitutional: non-verbal Head: normocephalic Neck: other (Tracheostomy), supple Cardiovascular: nl pulses, regular rate and rhythm Gastrointestinal: non-tender, soft, GT Extremities: normal pulses, other (Contracted) Results Result Diagram: 12/02/16 0538 12/02/16 0538 Results 24 hrs Laboratory Tests Test 12/02/16 05:38 White Blood Count 8.5 Red Blood Count 3.88 L Hemoglobin 10.6 L Hematocrit 33.8 L Mean Corpuscular Volume 87.1 Mean Corpuscular Hemoglobin 27.3 L Mean Corpuscular Hemoglobin Concent 31.4 L Red Cell Distribution Width 14.5 Platelet Count 362 # Mean Platelet Volume 10.8 H Neutrophils % 70.3 Lymphocytes % 21.5 Monocytes % 5.9 Eosinophils % 1.4 Basophils % 0.4 Nucleated Red Blood Cells % 0.0 Neutrophils # 6.0 Lymphocytes # 1.8 Monocytes # 0.5 Eosinophils # 0.1 Basophils # 0.0 Nucleated Red Blood Cells # 0.0 Sodium Level 144 Potassium Level 4.4 Chloride Level 109 Carbon Dioxide Level 23 Anion Gap 16 Blood Urea Nitrogen 19 Creatinine 2.07 H Glucose Level 104 Calcium Level 9.8 Medications Medications Current Medications Acetaminophen (Tylenol Liquid) 650 mg Q6H PRN PO PAIN LEVEL 1-3 OR FEVER Last administered on 11/26/16 09:33; Admin Dose 650 MG; Start 11/21/16 at 03:00 Ondansetron HCl (Zofran Inj) 4 mg Q6H PRN IV NAUSEA AND/OR VOMITING; Start at 13:00 Morphine Sulfate (morphine) 2 mg Q4H PRN IV PAIN LEVEL 7-10; Start 11/21/16 at 13:00 Enoxaparin Sodium (Lovenox) 30 mg DAILY SC Last administered on 12/02/16 09:15 ; Admin Dose 30 MG; Start 11/22/16 at 09:00 Aspirin (Aspirin) 81 mg DAILY PO Last administered on 12/02/16 08:29; Admin Dose 81 MG; Start 11/22/16 at 09:00 Lansoprazole 30 mg 30 mg DAILY@06 GTB Last administered on 12/02/16 06:04; Admin Dose 30 MG; Start 11/30/16 at 06:00 Potassium Chloride/Dextrose/ Sod Cl (D5-1/2ns + KCl 20 Meq) 1,000 ml @ 60 mls/ hr [id number] IV Last administered on 12/02/16 11:30; Admin Dose 60 MLS/HR; Start 12/01/16 at 18:00 Metoprolol Tartrate (Lopressor) 12.5 mg BID PO ; Start 12/02/16 at 21:00 JH WISDOM Dec 02, 2016 16:42
--- NOTE | 2016-12-02 18:07 | CONS ---
Date/Time of Note Date/Time of Note DATE: 12/02/16 TIME: 18:06 Assessment/Plan Assessment/Plan Additional Assessment/Plan 1. Acute kidney injury secondary to severe prerenal azotemia and ischemic acute tubular necrosis from a bowel obstruction. 2. Severe hypernatremia secondary to a large free water deficit. 3. Hypokalemia. 4. Elevated troponin secondary to possible demand ischemia. 5. Sepsis of unknown etiology. 6. Possible small-bowel obstruction from fecal impaction. 7. History of ventilator-dependent respiratory failure secondary to anoxic encephalopathy from cardiac arrest, status post tracheostomy. 8. History of dysphagia, status post G-tube placement. 9. History of seizure disorder. 10. History of schizophrenia. 11. [employer]. PLAN: change IVF to D51/2NS with 20mEQ KCL at 60 cc/hr , IV abx stopped chemical code only Cr 2.07 today, will monitor will follow up Consultation Date/Type/Reason Admit Date/Time Nov 21, 2016 at 02:41 Initial Consult Date 11/21/16 Type of Consultation: NEPHROLOGY Referring Provider: RICHARD GIRARD MD Exam/Review of Systems Vital Signs Vitals Vital Signs Date Time Temp Pulse Resp B/P Pulse Ox O2 Delivery O2 Flow Rate FiO2 12/02/16 17:15 88 17 98 35 12/02/16 15:38 98.5 107/75 11/30/16 20:16 Mechanical Ventilator Intake and Output 12/01/16 12/01/16 12/02/16 15:00 23:00 07:00 Intake Total 1550 ml 1480 ml Output Total 1100 ml 1400 ml Balance 450 ml 80 ml Results Result Diagram: 12/02/16 0538 12/02/16 0538 Results 24 hrs Laboratory Tests Test 12/02/16 05:38 White Blood Count 8.5 Red Blood Count 3.88 L Hemoglobin 10.6 L Hematocrit 33.8 L Mean Corpuscular Volume 87.1 Mean Corpuscular Hemoglobin 27.3 L Mean Corpuscular Hemoglobin Concent 31.4 L Red Cell Distribution Width 14.5 Platelet Count 362 # Mean Platelet Volume 10.8 H Neutrophils % 70.3 Lymphocytes % 21.5 Monocytes % 5.9 Eosinophils % 1.4 Basophils % 0.4 Nucleated Red Blood Cells % 0.0 Neutrophils # 6.0 Lymphocytes # 1.8 Monocytes # 0.5 Eosinophils # 0.1 Basophils # 0.0 Nucleated Red Blood Cells # 0.0 Sodium Level 144 Potassium Level 4.4 Chloride Level 109 Carbon Dioxide Level 23 Anion Gap 16 Blood Urea Nitrogen 19 Creatinine 2.07 H Glucose Level 104 Calcium Level 9.8 Medications Medications Current Medications Acetaminophen (Tylenol Liquid) 650 mg Q6H PRN PO PAIN LEVEL 1-3 OR FEVER Last administered on 11/26/16 09:33; Admin Dose 650 MG; Start 11/21/16 at 03:00 Ondansetron HCl (Zofran Inj) 4 mg Q6H PRN IV NAUSEA AND/OR VOMITING; Start at 13:00 Morphine Sulfate (morphine) 2 mg Q4H PRN IV PAIN LEVEL 7-10; Start 11/21/16 at 13:00 Enoxaparin Sodium (Lovenox) 30 mg DAILY SC Last administered on 12/02/16 09:15 ; Admin Dose 30 MG; Start 11/22/16 at 09:00 Aspirin (Aspirin) 81 mg DAILY PO Last administered on 12/02/16 08:29; Admin Dose 81 MG; Start 11/22/16 at 09:00 Lansoprazole 30 mg 30 mg DAILY@06 GTB Last administered on 12/02/16 06:04; Admin Dose 30 MG; Start 11/30/16 at 06:00 Potassium Chloride/Dextrose/ Sod Cl (D5-1/2ns + KCl 20 Meq) 1,000 ml @ 60 mls/ hr [id number] IV Last administered on 12/02/16 11:30; Admin Dose 60 MLS/HR; Start 12/01/16 at 18:00 Metoprolol Tartrate (Lopressor) 12.5 mg BID PO ; Start 12/02/16 at 21:00 UMM MANNING MD Dec 02, 2016 18:07
[2016-12-03] VITALS (24 sets, daily range): BP systolic 108–132; BP diastolic 74–88; PULSE 77–96; RESP 16–29
[2016-12-03] MEDS: D5W-0.45 NACL + KCL 20 MEQ 1,000 ML IV SCH ×2 (03:09→20:45)
[2016-12-03] MEDS: LANSOPRAZOLE 30 MG CAP GTB SCH (05:07)
[2016-12-03 07:58] LABS: ADD SCAN DIFF NO
[2016-12-03 08:04] LABS: BASOPHILS % 0.3 % (0.0-2.0); EOSINOPHILS # 0.1 10^3/ul (0.0-0.5); EOSINOPHILS % 0.8 % (0.0-7.0); HEMATOCRIT 34.3 % (42.0-52.0); HEMOGLOBIN 10.5 g/dl (14.0-18.0); LYMPHOCYTES # 1.3 10^3/ul (0.8-2.9); LYMPHOCYTES % 11.5 % (15.0-51.0); MEAN CORPUSCULAR HEMOGLOBIN 26.3 pg (29.0-33.0); MEAN CORPUSCULAR HGB CONC 30.6 g/dl (32.0-37.0); MEAN CORPUSCULAR VOLUME 85.8 fl (82.0-101.0); MEAN PLATELET VOLUME 10.5 fl (7.4-10.4); MONOCYTE # 0.5 10^3/ul (0.3-0.9); MONOCYTES % 4.5 % (0.0-11.0); NEUTROPHIL # 9.5 10^3/ul (1.6-7.5); NEUTROPHILS % 82.3 % (39.0-77.0); PLATELET COUNT 468 10^3/UL (140-415); RED CELL DISTRIBUTION WIDTH 14.6 % (11.5-14.5); WHITE BLOOD COUNT 11.6 10^3/ul (4.8-10.8)
[2016-12-03 08:52] LABS: CALCIUM 9.7 mg/dl (8.4-10.2); CREATININE 2.09 mg/dl (0.61-1.24); POTASSIUM 4.6 mmol/L (3.5-5.1)
[2016-12-03] MEDS: ENOXAPARIN 30 MG/0.3 ML SYG SC SCH (09:00)
[2016-12-03] MEDS: ASPIRIN 81 MG TAB PO SCH (09:18)
[2016-12-03] MEDS: METOPROLOL 25 MG TAB PO SCH ×2 (09:18→20:44)
--- NOTE | 2016-12-03 13:05 | CONS ---
Date/Time of Note Date/Time of Note DATE: 12/03/16 TIME: 13:04 Assessment/Plan Assessment/Plan Chief Complaint/Hosp Course SUBJECTIVE: No acute changes. The patient is lying comfortably in bed. INDWELLINGS: Trach, PEG, Charles. PHYSICAL EXAMINATION: GENERAL: Chronically ill-appearing, middle-aged, vegetative man who is in no distress. HEENT: Head atraumatic, normocephalic. Sclerae anicteric. Buccal mucosa dry. NECK: Supple. CHEST: Rise symmetrical. Breath sounds diminished to bases. HEART: S1, S2. ABDOMEN: Soft. Bowel tones hypoactive. EXTREMITIES: No cyanosis. ASSESSMENT: 1. Resolving sepsis. 2. S/p small-bowel obstruction likely secondary to severe fecal impaction==> resolved. 3. Chronic respiratory failure/PNA 4. History of seizure disorder. 5. Persistent vegetative state. 6. Anemia PLAN: The patient remains stable, off abx, continue vent support per pulmonary , reculture prn. DW staff Problems: Consultation Date/Type/Reason Admit Date/Time Nov 21, 2016 at 02:41 Initial Consult Date 11/21/16 Type of Consultation: Infectious disease Referring Provider: RICHRAD GIRARD MD Exam/Review of Systems Vital Signs Vitals Vital Signs Date Time Temp Pulse Resp B/P Pulse Ox O2 Delivery O2 Flow Rate FiO2 12/03/16 12:26 79 12/03/16 12:09 98.2 16 108/74 99 12/03/16 11:55 30 11/30/16 20:16 Mechanical Ventilator Intake and Output 12/02/16 12/02/16 12/03/16 15:00 23:00 07:00 Intake Total 1400 ml 640 ml Output Total 950 ml 800 ml Balance 450 ml -160 ml Results Result Diagram: 12/03/16 0712 12/03/16 0712 Results 24 hrs Laboratory Tests Test 12/03/16 07:12 White Blood Count 11.6 #H Red Blood Count 4.00 L Hemoglobin 10.5 L Hematocrit 34.3 L Mean Corpuscular Volume 85.8 Mean Corpuscular Hemoglobin 26.3 L Mean Corpuscular Hemoglobin Concent 30.6 L Red Cell Distribution Width 14.6 H Platelet Count 468 #H Mean Platelet Volume 10.5 H Neutrophils % 82.3 H Lymphocytes % 11.5 L Monocytes % 4.5 Eosinophils % 0.8 Basophils % 0.3 Nucleated Red Blood Cells % 0.0 Neutrophils # 9.5 H Lymphocytes # 1.3 Monocytes # 0.5 Eosinophils # 0.1 Basophils # 0.0 Nucleated Red Blood Cells # 0.0 Sodium Level 143 Potassium Level 4.6 Chloride Level 108 Carbon Dioxide Level 25 Anion Gap 15 Blood Urea Nitrogen 22 H Creatinine 2.09 H Glucose Level 126 Calcium Level 9.7 Medications Medications Current Medications Acetaminophen (Tylenol Liquid) 650 mg Q6H PRN PO PAIN LEVEL 1-3 OR FEVER Last administered on 11/26/16 09:33; Admin Dose 650 MG; Start 11/21/16 at 03:00 Ondansetron HCl (Zofran Inj) 4 mg Q6H PRN IV NAUSEA AND/OR VOMITING Last administered on 12/02/16 20:58; Admin Dose 4 MG; Start 11/21/16 at 13:00 Morphine Sulfate (morphine) 2 mg Q4H PRN IV PAIN LEVEL 7-10; Start 11/21/16 at 13:00 Enoxaparin Sodium (Lovenox) 30 mg DAILY SC Last administered on 12/02/16 09:15 ; Admin Dose 30 MG; Start 11/22/16 at 09:00 Aspirin (Aspirin) 81 mg DAILY PO Last administered on 12/03/16 09:18; Admin Dose 81 MG; Start 11/22/16 at 09:00 Lansoprazole 30 mg 30 mg DAILY@06 GTB Last administered on 12/03/16 05:07; Admin Dose 30 MG; Start 11/30/16 at 06:00 Potassium Chloride/Dextrose/ Sod Cl (D5-1/2ns + KCl 20 Meq) 1,000 ml @ 60 mls/ hr [id number] IV Last administered on 12/03/16 03:09; Admin Dose 60 MLS/HR; Start 12/01/16 at 18:00 Metoprolol Tartrate (Lopressor) 12.5 mg BID PO Last administered on 12/03/16 09:18; Admin Dose 12.5 MG; Start 12/02/16 at 21:00 YURY YOON NP Dec 03, 2016 13:05
--- NOTE | 2016-12-03 15:54 | CONS ---
Date/Time of Note Date/Time of Note DATE: 12/03/16 TIME: 15:52 Assessment/Plan Assessment/Plan Chief Complaint/Hosp Course IMPRESSION: 1. Positive troponin in the setting of high fevers and tachycardia, now trending negative, likely demand event type 2 infarct. NL EF by echo this admit 2. Abnormal electrocardiogram, with nonspecific ST-T and T-wave abnormalities. 3. Supraventricular tachycardia, possibly sinus tachycardia in the setting of fevers versus atrial flutter-no recurrence 4. Hypotension-overall improved but marginal. 5. Fevers. 6. Anoxic encephalopathy. 7. Chronic respiratory failure, status post tracheostomy. 8. Hypernatremia-improved 9. Hypokalemia.-improved 10. Anemia. 11. Hematuria. 12. fever Recc: -Tele -Continue low dose BB as tolerated only and given marginal BP will reduce dose -Continue asa -Follow volume status closely -Continue abx's and f/u cx data Problems: Consultation Date/Type/Reason Admit Date/Time Nov 21, 2016 at 02:41 Initial Consult Date 11/21/16 Type of Consultation: cardiology Reason for Consultation positive troponin Referring Provider: RICHARD GIRARD MD Exam/Review of Systems Vital Signs Vitals Vital Signs Date Time Temp Pulse Resp B/P Pulse Ox O2 Delivery O2 Flow Rate FiO2 12/03/16 13:59 82 26 100 30 12/03/16 12:09 98.2 108/74 11/30/16 20:16 Mechanical Ventilator Intake and Output 12/02/16 12/02/16 12/03/16 14:59 22:59 06:59 Intake Total 1400 ml 640 ml Output Total 950 ml 800 ml Balance 450 ml -160 ml Exam Review of Systems: CONSTITUTIONAL: No fevers, chills. PULMONARY:trached CARDIOVASCULAR: No obvious chest pain/palpitations GASTROINTESTINAL: No nausea/vomiting. GENITOURINARY: No hematuria/dysuria. MUSCULOSKELETAL: No obvious myagias/arthalgias. PSYCHIATRIC: No documented depression. NEUROLOGIC: encephalopathic Constitutional: alert Psych: no complaints Head: normocephalic ENMT: mucosa pink and moist Neck: jvd (9 cm water), supple Respiratory: diminished breath sounds (at bases/B) Cardiovascular: regular rate and rhythm Gastrointestinal: non-tender, soft Musculoskeletal: muscle tone (normal) Extremities: other (contracted) Neurological: other (encephalopathic) Results Result Diagram: 12/03/16 0712 12/03/16 0712 Results 24 hrs Laboratory Tests Test 12/03/16 07:12 White Blood Count 11.6 #H Red Blood Count 4.00 L Hemoglobin 10.5 L Hematocrit 34.3 L Mean Corpuscular Volume 85.8 Mean Corpuscular Hemoglobin 26.3 L Mean Corpuscular Hemoglobin Concent 30.6 L Red Cell Distribution Width 14.6 H Platelet Count 468 #H Mean Platelet Volume 10.5 H Neutrophils % 82.3 H Lymphocytes % 11.5 L Monocytes % 4.5 Eosinophils % 0.8 Basophils % 0.3 Nucleated Red Blood Cells % 0.0 Neutrophils # 9.5 H Lymphocytes # 1.3 Monocytes # 0.5 Eosinophils # 0.1 Basophils # 0.0 Nucleated Red Blood Cells # 0.0 Sodium Level 143 Potassium Level 4.6 Chloride Level 108 Carbon Dioxide Level 25 Anion Gap 15 Blood Urea Nitrogen 22 H Creatinine 2.09 H Glucose Level 126 Calcium Level 9.7 Medications Medications Current Medications Acetaminophen (Tylenol Liquid) 650 mg Q6H PRN PO PAIN LEVEL 1-3 OR FEVER Last administered on 11/26/16 09:33; Admin Dose 650 MG; Start 11/21/16 at 03:00 Ondansetron HCl (Zofran Inj) 4 mg Q6H PRN IV NAUSEA AND/OR VOMITING Last administered on 12/02/16 20:58; Admin Dose 4 MG; Start 11/21/16 at 13:00 Morphine Sulfate (morphine) 2 mg Q4H PRN IV PAIN LEVEL 7-10; Start 11/21/16 at 13:00 Enoxaparin Sodium (Lovenox) 30 mg DAILY SC Last administered on 12/02/16 09:15 ; Admin Dose 30 MG; Start 11/22/16 at 09:00 Aspirin (Aspirin) 81 mg DAILY PO Last administered on 12/03/16 09:18; Admin Dose 81 MG; Start 11/22/16 at 09:00 Lansoprazole 30 mg 30 mg DAILY@06 GTB Last administered on 12/03/16 05:07; Admin Dose 30 MG; Start 11/30/16 at 06:00 Potassium Chloride/Dextrose/ Sod Cl (D5-1/2ns + KCl 20 Meq) 1,000 ml @ 60 mls/ hr [id number] IV Last administered on 12/03/16 03:09; Admin Dose 60 MLS/HR; Start 12/01/16 at 18:00 Metoprolol Tartrate (Lopressor) 12.5 mg BID PO Last administered on 12/03/16 09:18; Admin Dose 12.5 MG; Start 12/02/16 at 21:00 ELOINA MISHRA Dec 03, 2016 15:54
--- NOTE | 2016-12-03 17:12 | PN ---
Date/Time of Note Date/Time of Note DATE: 12/03/16 TIME: 17:04 Assessment/Plan VTE Prophylaxis VTE Prophylaxis Intervention: SCD's Lines/Catheters [facility] Central Line Central line still needed: Yes Urinary Cath still in place: Yes Reason Cath still needed: urinary retention Assessment/Plan Chief Complaint/Hosp Course Hematuria, will hold Lovenox. ASSESSMENT AND PLAN: - Hematuria, patient has multiple nonobstructing stones in bilateral kidney per CT. Dr. Regan in urology consultation. - Acute kidney injury. Dr. Aceves is following in nephrology consultation. Continue IV fluids. - Sepsis of unknown etiology, with shock, resolved. Dr. Matias is following in infection disease consultation. Currently off antibiotics. - Possible small-bowel obstruction vs ileus, resolved. Dr. Murcia is following in general surgery consultation. Dr. Walton is following in gastroenterology consultation - Elevated troponin, most likely secondary to demand ischemia. Trending down. Dr. Flor is following in cardiology consultation. - Ventilator-dependent respiratory failure. - Dysphagia with G-tube. - Seizure disorder. Continue Keppra. - Anoxic encephalopathy, status post cardiac arrest. - Schizophrenia by history. Continue Lovenox for deep venous thrombosis prophylaxis and Pepcid for peptic ulcer disease prophylaxis. Further recommendations based on clinical course. Plan of care discussed with Dr. Courtney. Problems: Exam/Review of Systems Vital Signs Vitals Vital Signs Date Time Temp Pulse Resp B/P Pulse Ox O2 Delivery O2 Flow Rate FiO2 12/03/16 16:26 77 12/03/16 16:05 97.8 19 125/77 95 12/03/16 13:59 30 11/30/16 20:16 Mechanical Ventilator Intake and Output 12/02/16 12/02/16 12/03/16 15:00 23:00 07:00 Intake Total 1400 ml 640 ml Output Total 950 ml 800 ml Balance 450 ml -160 ml Exam Constitutional: non-verbal Head: normocephalic Neck: other (Tracheostomy), supple Cardiovascular: nl pulses, regular rate and rhythm Gastrointestinal: non-tender, soft, GT Extremities: normal pulses, other (Contracted) Results Result Diagram: 12/03/16 0712 12/03/16 0712 Results 24 hrs Laboratory Tests Test 12/03/16 07:12 White Blood Count 11.6 #H Red Blood Count 4.00 L Hemoglobin 10.5 L Hematocrit 34.3 L Mean Corpuscular Volume 85.8 Mean Corpuscular Hemoglobin 26.3 L Mean Corpuscular Hemoglobin Concent 30.6 L Red Cell Distribution Width 14.6 H Platelet Count 468 #H Mean Platelet Volume 10.5 H Neutrophils % 82.3 H Lymphocytes % 11.5 L Monocytes % 4.5 Eosinophils % 0.8 Basophils % 0.3 Nucleated Red Blood Cells % 0.0 Neutrophils # 9.5 H Lymphocytes # 1.3 Monocytes # 0.5 Eosinophils # 0.1 Basophils # 0.0 Nucleated Red Blood Cells # 0.0 Sodium Level 143 Potassium Level 4.6 Chloride Level 108 Carbon Dioxide Level 25 Anion Gap 15 Blood Urea Nitrogen 22 H Creatinine 2.09 H Glucose Level 126 Calcium Level 9.7 Medications Medications Current Medications Acetaminophen (Tylenol Liquid) 650 mg Q6H PRN PO PAIN LEVEL 1-3 OR FEVER Last administered on 11/26/16 09:33; Admin Dose 650 MG; Start 11/21/16 at 03:00 Ondansetron HCl (Zofran Inj) 4 mg Q6H PRN IV NAUSEA AND/OR VOMITING Last administered on 12/02/16 20:58; Admin Dose 4 MG; Start 11/21/16 at 13:00 Morphine Sulfate (morphine) 2 mg Q4H PRN IV PAIN LEVEL 7-10; Start 11/21/16 at 13:00 Enoxaparin Sodium (Lovenox) 30 mg DAILY SC Last administered on 12/02/16 09:15 ; Admin Dose 30 MG; Start 11/22/16 at 09:00 Aspirin (Aspirin) 81 mg DAILY PO Last administered on 12/03/16 09:18; Admin Dose 81 MG; Start 11/22/16 at 09:00 Lansoprazole 30 mg 30 mg DAILY@06 GTB Last administered on 12/03/16 05:07; Admin Dose 30 MG; Start 11/30/16 at 06:00 Potassium Chloride/Dextrose/ Sod Cl (D5-1/2ns + KCl 20 Meq) 1,000 ml @ 60 mls/ hr [id number] IV Last administered on 12/03/16 03:09; Admin Dose 60 MLS/HR; Start 12/01/16 at 18:00 Metoprolol Tartrate (Lopressor) 12.5 mg BID PO Last administered on 12/03/16t 09:18; Admin Dose 12.5 MG; Start 12/02/16 at 21:00 JH WISDOM Dec 03, 2016 17:12
--- NOTE | 2016-12-03 17:17 | CONS ---
Date/Time of Note Date/Time of Note DATE: 12/03/16 TIME: 17:16 Assessment/Plan Assessment/Plan Additional Assessment/Plan 1. Acute kidney injury secondary to severe prerenal azotemia and ischemic acute tubular necrosis from a bowel obstruction. 2. Severe hypernatremia secondary to a large free water deficit. 3. Hypokalemia. 4. Elevated troponin secondary to possible demand ischemia. 5. Sepsis of unknown etiology. 6. Possible small-bowel obstruction from fecal impaction. 7. History of ventilator-dependent respiratory failure secondary to anoxic encephalopathy from cardiac arrest, status post tracheostomy. 8. History of dysphagia, status post G-tube placement. 9. History of seizure disorder. 10. History of schizophrenia. 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 PLAN: conitnue D51/2NS with 20mEQ KCL at 60 cc/hr , IV abx stopped chemical code only Cr 2.09 today, will monitor will follow up Consultation Date/Type/Reason Admit Date/Time Nov 21, 2016 at 02:41 Initial Consult Date 11/21/16 Type of Consultation: NEPHROLOGY Referring Provider: RICHARD GIRARD MD Exam/Review of Systems Vital Signs Vitals Vital Signs Date Time Temp Pulse Resp B/P Pulse Ox O2 Delivery O2 Flow Rate FiO2 12/03/16 16:26 77 12/03/16 16:05 97.8 19 125/77 95 12/03/16 13:59 30 11/30/16 20:16 Mechanical Ventilator Intake and Output 12/02/16 12/02/16 12/03/16 15:00 23:00 07:00 Intake Total 1400 ml 640 ml Output Total 950 ml 800 ml Balance 450 ml -160 ml Results Result Diagram: 12/03/16 0712 12/03/16 0712 Results 24 hrs Laboratory Tests Test 12/03/16 07:12 White Blood Count 11.6 #H Red Blood Count 4.00 L Hemoglobin 10.5 L Hematocrit 34.3 L Mean Corpuscular Volume 85.8 Mean Corpuscular Hemoglobin 26.3 L Mean Corpuscular Hemoglobin Concent 30.6 L Red Cell Distribution Width 14.6 H Platelet Count 468 #H Mean Platelet Volume 10.5 H Neutrophils % 82.3 H Lymphocytes % 11.5 L Monocytes % 4.5 Eosinophils % 0.8 Basophils % 0.3 Nucleated Red Blood Cells % 0.0 Neutrophils # 9.5 H Lymphocytes # 1.3 Monocytes # 0.5 Eosinophils # 0.1 Basophils # 0.0 Nucleated Red Blood Cells # 0.0 Sodium Level 143 Potassium Level 4.6 Chloride Level 108 Carbon Dioxide Level 25 Anion Gap 15 Blood Urea Nitrogen 22 H Creatinine 2.09 H Glucose Level 126 Calcium Level 9.7 Medications Medications Current Medications Acetaminophen (Tylenol Liquid) 650 mg Q6H PRN PO PAIN LEVEL 1-3 OR FEVER Last administered on 11/26/16 09:33; Admin Dose 650 MG; Start 11/21/16 at 03:00 Ondansetron HCl (Zofran Inj) 4 mg Q6H PRN IV NAUSEA AND/OR VOMITING Last administered on 12/02/16 20:58; Admin Dose 4 MG; Start 11/21/16 at 13:00 Morphine Sulfate (morphine) 2 mg Q4H PRN IV PAIN LEVEL 7-10; Start 11/21/16 at 13:00 Enoxaparin Sodium (Lovenox) 30 mg DAILY SC Last administered on 12/02/16 09:15 ; Admin Dose 30 MG; Start 11/22/16 at 09:00; Status Future Hold Aspirin (Aspirin) 81 mg DAILY PO Last administered on 12/03/16 09:18; Admin Dose 81 MG; Start 11/22/16 at 09:00 Lansoprazole 30 mg 30 mg DAILY@06 GTB Last administered on 12/03/16 05:07; Admin Dose 30 MG; Start 11/30/16 at 06:00 Potassium Chloride/Dextrose/ Sod Cl (D5-1/2ns + KCl 20 Meq) 1,000 ml @ 60 mls/ hr [id number] IV Last administered on 12/03/16 03:09; Admin Dose 60 MLS/HR; Start 12/01/16 at 18:00 Metoprolol Tartrate (Lopressor) 12.5 mg BID PO Last administered on 12/03/16 09:18; Admin Dose 12.5 MG; Start 12/02/16 at 21:00 UMM MANNING MD Dec 03, 2016 17:17
--- NOTE | 2016-12-03 20:39 | CONS ---
Date/Time of Note Date/Time of Note DATE: 12/03/16 TIME: 20:04 Assessment/Plan Assessment/Plan Chief Complaint/Hosp Course Horseshoe kidney with bilateral kidney stones. These stones are not obstructing and there is no hydronephrosis. Charles catheter is draining blood- tinged urine and this could be from pulling on the catheter as he is being moved. Problems: Additional Assessment/Plan Plan is to hydrate him ,keep the Charles catheter in place. There is no need to treat the kidney stones as they are not causing any obstruction Consultation Date/Type/Reason Admit Date/Time Nov 21, 2016 at 02:41 Date of Consultation: Dec 03, 2016 Reason for Consultation Bilateral kidney stones and hematuria Hx of Present Illness The patient is a 45-year-old male with anoxic encephalopathy status post cardiac arrest after suicide attempt in 2009, ventilator-dependent respiratory failure, dysphagia with G-tube, seizure disorder and history of schizophrenia. The [facility] due to altered level of consciousness more than patient's regular baseline, tachycardia and low oxygen saturation. CT scan of the abdomen and pelvis showed horseshoe kidney with kidney stones without obstruction. Patient presently has an indwelling Charles catheter and the urine is blood-tinged. A 12-point review of systems is negative unless what mentioned in the HPI. Constitutional: requiring IVF, requiring O2 Respiratory: no complaints Cardiovascular: chest pain Gastrointestinal: no complaints Genitourinary: no complaints Skin: other (abdominal wound) Psychological: no complaints Exam/Review of Systems Vital Signs Vitals Vital Signs Date Time Temp Pulse Resp B/P Pulse Ox O2 Delivery O2 Flow Rate FiO2 12/03/16 17:31 84 29 100 30 12/03/16 16:05 97.8 125/77 11/30/16 20:16 Mechanical Ventilator Intake and Output 12/02/16 12/02/16 12/03/16 15:00 23:00 07:00 Intake Total 1400 ml 640 ml Output Total 950 ml 800 ml Balance 450 ml -160 ml Exam Patient has upper and lower extremity contractures. ENMT: intubated Neck: other (Tracheostomy) Respiratory: other (Tracheostomy) Gastrointestinal: other (G-tube in place.) Genitourinary - Male: other (Charles catheter in place and draining bloody urine) Extremities: other (Contracture of upper and lower extremities very hard to separate his legs apart) Results Result Diagram: 12/03/16 0712 12/03/16 0712 Results 24 hrs Laboratory Tests Test 12/03/16 07:12 White Blood Count 11.6 #H Red Blood Count 4.00 L Hemoglobin 10.5 L Hematocrit 34.3 L Mean Corpuscular Volume 85.8 Mean Corpuscular Hemoglobin 26.3 L Mean Corpuscular Hemoglobin Concent 30.6 L Red Cell Distribution Width 14.6 H Platelet Count 468 #H Mean Platelet Volume 10.5 H Neutrophils % 82.3 H Lymphocytes % 11.5 L Monocytes % 4.5 Eosinophils % 0.8 Basophils % 0.3 Nucleated Red Blood Cells % 0.0 Neutrophils # 9.5 H Lymphocytes # 1.3 Monocytes # 0.5 Eosinophils # 0.1 Basophils # 0.0 Nucleated Red Blood Cells # 0.0 Sodium Level 143 Potassium Level 4.6 Chloride Level 108 Carbon Dioxide Level 25 Anion Gap 15 Blood Urea Nitrogen 22 H Creatinine 2.09 H Glucose Level 126 Calcium Level 9.7 1. Moderate volume of retained stool in the rectum. The more proximal colon is markedly distended with gas and fluid. This is nonspecific but might represent a colonic obstruction secondary to impacted stool in the rectum versus a colonic pseudo-obstruction (Loren syndrome). 2. Several mildly dilated small bowel loops in the abdomen and pelvis, possibly secondary to the colonic distension. If there is concern for a small bowel obstruction, further evaluation with a small bowel follow-through examination may be useful. 3. Horseshoe kidney containing multiple nonobstructing stones, which measure up to 10 mm on the right. 4. Patchy opacification of the posteromedial left upper quadrant retroperitoneal fat, nonspecific. A 1.5 cm nodule is noted in the adjacent left adrenal gland, also nonspecific. This could be further evaluated with contrast- enhanced MRI if clinically warranted. 5. Mild to moderate atherosclerotic arterial calcifications. 6. Consolidation in the posterior left lung base, probably atelectasis.CT Sca Medications Medications Current Medications Acetaminophen (Tylenol Liquid) 650 mg Q6H PRN PO PAIN LEVEL 1-3 OR FEVER Last administered on 11/26/16 09:33; Admin Dose 650 MG; Start 11/21/16 at 03:00 Ondansetron HCl (Zofran Inj) 4 mg Q6H PRN IV NAUSEA AND/OR VOMITING Last administered on 12/02/16 20:58; Admin Dose 4 MG; Start 11/21/16 at 13:00 Morphine Sulfate (morphine) 2 mg Q4H PRN IV PAIN LEVEL 7-10; Start 11/21/16 at 13:00 Enoxaparin Sodium (Lovenox) 30 mg DAILY SC Last administered on 12/02/16 09:15 ; Admin Dose 30 MG; Start 11/22/16 at 09:00; Status Future Hold Aspirin (Aspirin) 81 mg DAILY PO Last administered on 12/03/16 09:18; Admin Dose 81 MG; Start 11/22/16 at 09:00 Lansoprazole 30 mg 30 mg DAILY@06 GTB Last administered on 12/03/16 05:07; Admin Dose 30 MG; Start 11/30/16 at 06:00 Potassium Chloride/Dextrose/ Sod Cl (D5-1/2ns + KCl 20 Meq) 1,000 ml @ 60 mls/ hr [id number] IV Last administered on 12/03/16 03:09; Admin Dose 60 MLS/HR; Start 12/01/16 at 18:00 Metoprolol Tartrate (Lopressor) 12.5 mg BID PO Last administered on 12/03/16 09:18; Admin Dose 12.5 MG; Start 12/02/16 at 21:00 CASTILLO NAVARRETE MD Dec 03, 2016 20:15
[2016-12-04] VITALS (22 sets, daily range): BP systolic 117–140; BP diastolic 82–92; PULSE 79–108; RESP 16–25
[2016-12-04] MEDS: LANSOPRAZOLE 30 MG CAP GTB SCH (05:15)
[2016-12-04 06:55] LABS: ADD SCAN DIFF NO
[2016-12-04 06:59] LABS: BASOPHILS % 0.4 % (0.0-2.0); EOSINOPHILS # 0.2 10^3/ul (0.0-0.5); EOSINOPHILS % 1.5 % (0.0-7.0); HEMATOCRIT 32.6 % (42.0-52.0); HEMOGLOBIN 9.8 g/dl (14.0-18.0); LYMPHOCYTES # 2.1 10^3/ul (0.8-2.9); LYMPHOCYTES % 21.3 % (15.0-51.0); MEAN CORPUSCULAR HEMOGLOBIN 26.3 pg (29.0-33.0); MEAN CORPUSCULAR HGB CONC 30.1 g/dl (32.0-37.0); MEAN CORPUSCULAR VOLUME 87.6 fl (82.0-101.0); MEAN PLATELET VOLUME 10.6 fl (7.4-10.4); MONOCYTE # 0.5 10^3/ul (0.3-0.9); MONOCYTES % 5.4 % (0.0-11.0); NEUTROPHIL # 7.1 10^3/ul (1.6-7.5); PLATELET COUNT 395 10^3/UL (140-415); RED BLOOD COUNT 3.72 10^6/ul (4.70-6.10); RED CELL DISTRIBUTION WIDTH 14.6 % (11.5-14.5)
[2016-12-04 07:32] LABS: CALCIUM 9.7 mg/dl (8.4-10.2); CREATININE 1.86 mg/dl (0.61-1.24); POTASSIUM 4.7 mmol/L (3.5-5.1)
[2016-12-04] MEDS: ASPIRIN 81 MG TAB PO SCH (09:29)
[2016-12-04] MEDS: METOPROLOL 25 MG TAB PO SCH ×2 (09:30→21:00)
--- NOTE | 2016-12-04 11:41 | CONS ---
Date/Time of Note Date/Time of Note DATE: 12/04/16 TIME: 11:40 Assessment/Plan Assessment/Plan Additional Assessment/Plan Ventilator setting; AC of 16, tidal volume 450, PEEP of 5, 30% FiO2. Assessment recommendations; 1. Patient admitted for abdominal distention due to fecal impaction significant leukocytosis with marked overall clinical improvement. Off antibiotics now. 2. History of chronic ventilator dependent respiratory failure. Next #3. Advanced dementia. 4. Hypertension. 5. Acute renal injury with improving serum creatinine. Continue current treatment. Consultation Date/Type/Reason Admit Date/Time Nov 21, 2016 at 02:41 Initial Consult Date 11/21/16 Type of Consultation: Pulmonary Referring Provider: RICHARD GIRARD MD 24 HR Interval Summary Free Text/Dictation Patient condition remains unchanged. Remains unresponsive to any commands but awake. Has remained hemodynamically stable. Exam; middle-aged male, on ventilator via tracheostomy awake but unresponsive. Currently in no distress. Exam/Review of Systems Vital Signs Vitals Vital Signs Date Time Temp Pulse Resp B/P Pulse Ox O2 Delivery O2 Flow Rate FiO2 12/04/16 11:38 98.4 82 18 140/86 92 12/04/16 11:33 30 11/30/16 20:16 Mechanical Ventilator Intake and Output 12/03/16 12/03/16 12/04/16 15:00 23:00 07:00 Intake Total 1000 ml 650 ml Output Total 1000 ml Balance 1000 ml -350 ml Exam HEENT exam; supple neck, tracheostomy in place. Patient has a multiple carious teeth. No neck masses. Chest exam; clear to ulceration. S1-S2 audible, no murmurs. Regular rhythm. Abdomen exam; soft, protuberant. G-tube in place. Bowel sounds audible. Extremity exam; patient does have severe flexion contractures involving all 4 extremities. 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 Results Result Diagram: 12/04/16 0620 12/04/16 0620 Results 24 hrs Laboratory Tests Test 12/04/16 06:20 White Blood Count 10.0 Red Blood Count 3.72 L Hemoglobin 9.8 L Hematocrit 32.6 L Mean Corpuscular Volume 87.6 Mean Corpuscular Hemoglobin 26.3 L Mean Corpuscular Hemoglobin Concent 30.1 L Red Cell Distribution Width 14.6 H Platelet Count 395 Mean Platelet Volume 10.6 H Neutrophils % 71.0 Lymphocytes % 21.3 Monocytes % 5.4 Eosinophils % 1.5 Basophils % 0.4 Nucleated Red Blood Cells % 0.0 Neutrophils # 7.1 Lymphocytes # 2.1 Monocytes # 0.5 Eosinophils # 0.2 Basophils # 0.0 Nucleated Red Blood Cells # 0.0 Sodium Level 139 Potassium Level 4.7 Chloride Level 107 Carbon Dioxide Level 22 Anion Gap 15 Blood Urea Nitrogen 19 Creatinine 1.86 H Glucose Level 104 Calcium Level 9.7 Medications Medications Current Medications Acetaminophen (Tylenol Liquid) 650 mg Q6H PRN PO PAIN LEVEL 1-3 OR FEVER Last administered on 11/26/16 09:33; Admin Dose 650 MG; Start 11/21/16 at 03:00 Ondansetron HCl (Zofran Inj) 4 mg Q6H PRN IV NAUSEA AND/OR VOMITING Last administered on 12/02/16 20:58; Admin Dose 4 MG; Start 11/21/16 at 13:00 Morphine Sulfate (morphine) 2 mg Q4H PRN IV PAIN LEVEL 7-10; Start 11/21/16 at 13:00 Enoxaparin Sodium (Lovenox) 30 mg DAILY SC Last administered on 12/02/16 09:15 ; Admin Dose 30 MG; Start 11/22/16 at 09:00; Status Future Hold Aspirin (Aspirin) 81 mg DAILY PO Last administered on 12/04/16 09:29; Admin Dose 81 MG; Start 11/22/16 at 09:00 Lansoprazole 30 mg 30 mg DAILY@06 GTB Last administered on 12/04/16 05:15; Admin Dose 30 MG; Start 11/30/16 at 06:00 Potassium Chloride/Dextrose/ Sod Cl (D5-1/2ns + KCl 20 Meq) 1,000 ml @ 60 mls/ hr [id number] IV Last administered on 12/03/16 20:45; Admin Dose 60 MLS/HR; Start 12/01/16 at 18:00 Metoprolol Tartrate (Lopressor) 12.5 mg BID PO Last administered on 12/04/16 09:30; Admin Dose 12.5 MG; Start 12/02/16 at 21:00 MI JEFFERS Dec 04, 2016 11:41
[2016-12-04] MEDS: D5W-0.45 NACL + KCL 20 MEQ 1,000 ML IV SCH (12:40)
--- NOTE | 2016-12-04 13:50 | PN ---
Date/Time of Note Date/Time of Note DATE: 12/04/16 TIME: 13:47 Assessment/Plan VTE Prophylaxis VTE Prophylaxis Intervention: other Lines/Catheters IV [facility]ter Type (from [facility] Central Line Urinary Cath still in place: Yes Reason Cath still needed: urinary retention Assessment/Plan Assessment/Plan - Hematuria, patient has multiple nonobstructing stones in bilateral kidney per CT. Dr. Regan in urology consultation. - Acute kidney injury. Dr. Aceves is following in nephrology consultation. Continue IV fluids. - Sepsis of unknown etiology, with shock, resolved. Dr. Matias is following in infection disease consultation. Currently off antibiotics. - Possible small-bowel obstruction vs ileus, resolved. Dr. Murcia is following in general surgery consultation. Dr. Walton is following in gastroenterology consultation - Elevated troponin, most likely secondary to demand ischemia. Trending down. Dr. Flor is following in cardiology consultation. - Ventilator-dependent respiratory failure. - Dysphagia with G-tube. - Seizure disorder. Continue Keppra. - Anoxic encephalopathy, status post cardiac arrest. - Schizophrenia by history. Continue Lovenox for deep venous thrombosis prophylaxis and Pepcid for peptic ulcer disease prophylaxis. Further recommendations based on clinical course. Plan of care discussed with Dr. Courtney. Subjective 24 Hr Interval Summary Free Text/Dictation positive hematuria, afebrile, cont to monitor another day, anticipate transfer am , staff. Exam/Review of Systems Vital Signs Vitals Vital Signs Date Time Temp Pulse Resp B/P Pulse Ox O2 Delivery O2 Flow Rate FiO2 12/04/16 13:07 85 17 96 30 12/04/16 11:38 98.4 140/86 11/30/16 20:16 Mechanical Ventilator Intake and Output 12/03/16 12/03/16 12/04/16 15:00 23:00 07:00 Intake Total 1000 ml 650 ml Output Total 1000 ml Balance 1000 ml -350 ml Exam Respiratory: diminished breath sounds Cardiovascular: nl pulses, regular rate and rhythm Gastrointestinal: non-tender, soft Genitourinary - Male: other (hematuria) Musculoskeletal: muscle weakness Extremities: normal pulses Neurological: unresponsive Results Result Diagram: 12/04/16 0620 12/04/16 0620 Results 24 hrs Laboratory Tests Test 12/04/16 06:20 White Blood Count 10.0 Red Blood Count 3.72 L Hemoglobin 9.8 L Hematocrit 32.6 L Mean Corpuscular Volume 87.6 Mean Corpuscular Hemoglobin 26.3 L Mean Corpuscular Hemoglobin Concent 30.1 L Red Cell Distribution Width 14.6 H Platelet Count 395 Mean Platelet Volume 10.6 H Neutrophils % 71.0 Lymphocytes % 21.3 Monocytes % 5.4 Eosinophils % 1.5 Basophils % 0.4 Nucleated Red Blood Cells % 0.0 Neutrophils # 7.1 Lymphocytes # 2.1 Monocytes # 0.5 Eosinophils # 0.2 Basophils # 0.0 Nucleated Red Blood Cells # 0.0 Sodium Level 139 Potassium Level 4.7 Chloride Level 107 Carbon Dioxide Level 22 Anion Gap 15 Blood Urea Nitrogen 19 Creatinine 1.86 H Glucose Level 104 Calcium Level 9.7 Medications Medications Current Medications Acetaminophen (Tylenol Liquid) 650 mg Q6H PRN PO PAIN LEVEL 1-3 OR FEVER Last administered on 11/26/16 09:33; Admin Dose 650 MG; Start 11/21/16 at 03:00 Ondansetron HCl (Zofran Inj) 4 mg Q6H PRN IV NAUSEA AND/OR VOMITING Last administered on 12/02/16 20:58; Admin Dose 4 MG; Start 11/21/16 at 13:00 Morphine Sulfate (morphine) 2 mg Q4H PRN IV PAIN LEVEL 7-10; Start 11/21/16 at 13:00 Enoxaparin Sodium (Lovenox) 30 mg DAILY SC Last administered on 12/02/16 09:15 ; Admin Dose 30 MG; Start 11/22/16 at 09:00; Status Future Hold Aspirin (Aspirin) 81 mg DAILY PO Last administered on 12/04/16 09:29; Admin Dose 81 MG; Start 11/22/16 at 09:00 Lansoprazole 30 mg 30 mg DAILY@06 GTB Last administered on 12/04/16 05:15; Admin Dose 30 MG; Start 11/30/16 at 06:00 Potassium Chloride/Dextrose/ Sod Cl (D5-1/2ns + KCl 20 Meq) 1,000 ml @ 60 mls/ hr [id number] IV Last administered on 12/03/16 20:45; Admin Dose 60 MLS/HR; Start 12/01/16 at 18:00 Metoprolol Tartrate (Lopressor) 12.5 mg BID PO Last administered on 12/04/16 09:30; Admin Dose 12.5 MG; Start 12/02/16 at 21:00 SHELLEY HERNANDEZ Dec 04, 2016 13:50
--- NOTE | 2016-12-04 14:05 | CONS ---
Date/Time of Note Date/Time of Note DATE: 12/04/16 TIME: 14:04 Assessment/Plan Assessment/Plan Chief Complaint/Hosp Course SUBJECTIVE: No acute changes. The patient is lying comfortably in bed. INDWELLINGS: Trach, PEG, Charles. PHYSICAL EXAMINATION: GENERAL: Chronically ill-appearing, middle-aged, vegetative man who is in no distress. HEENT: Head atraumatic, normocephalic. Sclerae anicteric. Buccal mucosa dry. NECK: Supple. CHEST: Rise symmetrical. Breath sounds diminished to bases. HEART: S1, S2. ABDOMEN: Soft. Bowel tones hypoactive. EXTREMITIES: No cyanosis. ASSESSMENT: 1. Resolving sepsis. 2. S/p small-bowel obstruction likely secondary to severe fecal impaction==> resolved. 3. Chronic respiratory failure/PNA 4. History of seizure disorder. 5. Persistent vegetative state. 6. Anemia PLAN: The patient remains stable, off abx, continue vent support per pulmonary , reculture prn. DW staff Problems: Consultation Date/Type/Reason Admit Date/Time Nov 21, 2016 at 02:41 Initial Consult Date 11/21/16 Type of Consultation: Infectious disease Referring Provider: RICHARD GIRARD MD Exam/Review of Systems Vital Signs Vitals Vital Signs Date Time Temp Pulse Resp B/P Pulse Ox O2 Delivery O2 Flow Rate FiO2 12/04/16 13:07 85 17 96 30 12/04/16 11:38 98.4 140/86 11/30/16 20:16 Mechanical Ventilator Intake and Output 12/03/16 12/03/16 12/04/16 15:00 23:00 07:00 Intake Total 1000 ml 650 ml Output Total 1000 ml Balance 1000 ml -350 ml Results Result Diagram: 12/04/16 0620 12/04/16 0620 Results 24 hrs Laboratory Tests Test 12/04/16 06:20 White Blood Count 10.0 Red Blood Count 3.72 L Hemoglobin 9.8 L Hematocrit 32.6 L Mean Corpuscular Volume 87.6 Mean Corpuscular Hemoglobin 26.3 L Mean Corpuscular Hemoglobin Concent 30.1 L Red Cell Distribution Width 14.6 H Platelet Count 395 Mean Platelet Volume 10.6 H Neutrophils % 71.0 Lymphocytes % 21.3 Monocytes % 5.4 Eosinophils % 1.5 Basophils % 0.4 Nucleated Red Blood Cells % 0.0 Neutrophils # 7.1 Lymphocytes # 2.1 Monocytes # 0.5 Eosinophils # 0.2 Basophils # 0.0 Nucleated Red Blood Cells # 0.0 Sodium Level 139 Potassium Level 4.7 Chloride Level 107 Carbon Dioxide Level 22 Anion Gap 15 Blood Urea Nitrogen 19 Creatinine 1.86 H Glucose Level 104 Calcium Level 9.7 Medications Medications Current Medications Acetaminophen (Tylenol Liquid) 650 mg Q6H PRN PO PAIN LEVEL 1-3 OR FEVER Last administered on 11/26/16 09:33; Admin Dose 650 MG; Start 11/21/16 at 03:00 Ondansetron HCl (Zofran Inj) 4 mg Q6H PRN IV NAUSEA AND/OR VOMITING Last administered on 12/02/16 20:58; Admin Dose 4 MG; Start 11/21/16 at 13:00 Morphine Sulfate (morphine) 2 mg Q4H PRN IV PAIN LEVEL 7-10; Start 11/21/16 at 13:00 Enoxaparin Sodium (Lovenox) 30 mg DAILY SC Last administered on 12/02/16 09:15 ; Admin Dose 30 MG; Start 11/22/16 at 09:00; Status Future Hold Aspirin (Aspirin) 81 mg DAILY PO Last administered on 12/04/16 09:29; Admin Dose 81 MG; Start 11/22/16 at 09:00 Lansoprazole 30 mg 30 mg DAILY@06 GTB Last administered on 12/04/16 05:15; Admin Dose 30 MG; Start 11/30/16 at 06:00 Potassium Chloride/Dextrose/ Sod Cl (D5-1/2ns + KCl 20 Meq) 1,000 ml @ 60 mls/ hr [id number] IV Last administered on 12/03/16 20:45; Admin Dose 60 MLS/HR; Start 12/01/16 at 18:00 Metoprolol Tartrate (Lopressor) 12.5 mg BID PO Last administered on 12/04/16 09:30; Admin Dose 12.5 MG; Start 12/02/16 at 21:00 YURY YOON NP Dec 04, 2016 14:05
--- NOTE | 2016-12-04 14:42 | PDOCDIS ---
Discharge Instructions CONDITION Patient Condition: Stable HOME CARE INSTRUCTIONS: Special Diet: g tube ACTIVITY: Activity Restrictions: Slowly Increase Activity Rest between Activity Avoid heavy lifting SHELLEY HERNANDEZ Dec 04, 2016 14:42
--- NOTE | 2016-12-04 18:10 | CONS ---
Date/Time of Note Date/Time of Note DATE: 12/04/16 TIME: 18:07 Assessment/Plan Assessment/Plan Chief Complaint/Hosp Course IMPRESSION: 1. Positive troponin in the setting of high fevers and tachycardia, now trending negative, likely demand event type 2 infarct. NL EF by echo this admit 2. Abnormal electrocardiogram, with nonspecific ST-T and T-wave abnormalities. 3. Supraventricular tachycardia, possibly sinus tachycardia in the setting of fevers versus atrial flutter-no recurrence 4. Hypotension-overall improved but marginal. 5. Fevers. 6. Anoxic encephalopathy. 7. Chronic respiratory failure, status post tracheostomy. 8. Hypernatremia-improved 9. Hypokalemia.-improved 10. Anemia. 11. Hematuria. 12. fever Recc: -Tele -Continue low dose BB and if BP remains increased will increase dose back to prior dose -Continue asa -Follow volume status closely -Continue abx's and f/u cx data Problems: Consultation Date/Type/Reason Admit Date/Time Nov 21, 2016 at 02:41 Initial Consult Date 11/21/16 Type of Consultation: cardiology Reason for Consultation positive troponin Referring Provider: RICHARD GIRARD MD Exam/Review of Systems Vital Signs Vitals Vital Signs Date Time Temp Pulse Resp B/P Pulse Ox O2 Delivery O2 Flow Rate FiO2 12/04/16 17:34 86 17 96 30 12/04/16 11:38 98.4 140/86 11/30/16 20:16 Mechanical Ventilator Intake and Output 12/03/16 12/03/16 12/04/16 15:00 23:00 07:00 Intake Total 1000 ml 650 ml Output Total 1000 ml Balance 1000 ml -350 ml Exam Review of Systems: CONSTITUTIONAL: No fevers, chills. PULMONARY: No sob CARDIOVASCULAR: No chest pain/palpitations GASTROINTESTINAL: No nausea/vomiting. GENITOURINARY: No hematuria/dysuria. MUSCULOSKELETAL: No myagias/arthalgias. PSYCHIATRIC: The patient denies depression. NEUROLOGIC: No weakness Constitutional: other (encvephalopathic) Psych: no complaints Head: normocephalic ENMT: mucosa pink and moist Neck: jvd (9 cm water), other (trach), supple Respiratory: other (upper airway rhochi) Cardiovascular: regular rate and rhythm Gastrointestinal: non-tender, soft Extremities: other (contracted) Neurological: other (Encephalopathic) Results Result Diagram: 12/04/16 0620 12/04/16 0620 Results 24 hrs Laboratory Tests Test 12/04/16 06:20 White Blood Count 10.0 Red Blood Count 3.72 L Hemoglobin 9.8 L Hematocrit 32.6 L Mean Corpuscular Volume 87.6 Mean Corpuscular Hemoglobin 26.3 L Mean Corpuscular Hemoglobin Concent 30.1 L Red Cell Distribution Width 14.6 H Platelet Count 395 Mean Platelet Volume 10.6 H Neutrophils % 71.0 Lymphocytes % 21.3 Monocytes % 5.4 Eosinophils % 1.5 Basophils % 0.4 Nucleated Red Blood Cells % 0.0 Neutrophils # 7.1 Lymphocytes # 2.1 Monocytes # 0.5 Eosinophils # 0.2 Basophils # 0.0 Nucleated Red Blood Cells # 0.0 Sodium Level 139 Potassium Level 4.7 Chloride Level 107 Carbon Dioxide Level 22 Anion Gap 15 Blood Urea Nitrogen 19 Creatinine 1.86 H Glucose Level 104 Calcium Level 9.7 Medications Medications Current Medications Acetaminophen (Tylenol Liquid) 650 mg Q6H PRN PO PAIN LEVEL 1-3 OR FEVER Last administered on 11/26/16 09:33; Admin Dose 650 MG; Start 11/21/16 at 03:00 Ondansetron HCl (Zofran Inj) 4 mg Q6H PRN IV NAUSEA AND/OR VOMITING Last administered on 12/02/16 20:58; Admin Dose 4 MG; Start 11/21/16 at 13:00 Morphine Sulfate (morphine) 2 mg Q4H PRN IV PAIN LEVEL 7-10; Start 11/21/16 at 13:00 Enoxaparin Sodium (Lovenox) 30 mg DAILY SC Last administered on 12/02/16 09:15 ; Admin Dose 30 MG; Start 11/22/16 at 09:00; Status Future Hold Aspirin (Aspirin) 81 mg DAILY PO Last administered on 12/04/16 09:29; Admin Dose 81 MG; Start 11/22/16 at 09:00 Lansoprazole 30 mg 30 mg DAILY@06 GTB Last administered on 12/04/16 05:15; Admin Dose 30 MG; Start 11/30/16 at 06:00 Potassium Chloride/Dextrose/ Sod Cl (D5-1/2ns + KCl 20 Meq) 1,000 ml @ 60 mls/ hr [id number] IV Last administered on 12/03/16 20:45; Admin Dose 60 MLS/HR; Start 12/01/16 at 18:00 Metoprolol Tartrate (Lopressor) 12.5 mg BID PO Last administered on 12/04/16 09:30; Admin Dose 12.5 MG; Start 12/02/16 at 21:00 ELOINA MISHRA Dec 04, 2016 18:10
--- NOTE | 2016-12-04 22:24 | CONS ---
Date/Time of Note Date/Time of Note DATE: 12/04/16 TIME: 22:22 Assessment/Plan Assessment/Plan Additional Assessment/Plan 1. Acute kidney injury secondary to severe prerenal azotemia and ischemic acute tubular necrosis from a bowel obstruction. 2. Severe hypernatremia secondary to a large free water deficit. 3. Hypokalemia. 4. Elevated troponin secondary to possible demand ischemia. 5. Sepsis of unknown etiology. 6. Possible small-bowel obstruction from fecal impaction. 7. History of ventilator-dependent respiratory failure secondary to anoxic encephalopathy from cardiac arrest, status post tracheostomy. 8. History of dysphagia, status post G-tube placement. 9. History of seizure disorder. 10. History of schizophrenia. 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 PLAN: conitnue D51/2NS with 20mEQ KCL at 60 cc/hr , chemical code only Cr 1.86 today, will monitor will follow up Consultation Date/Type/Reason Admit Date/Time Nov 21, 2016 at 02:41 Initial Consult Date 11/21/16 Type of Consultation: NEPHROLOGY Referring Provider: RICHARD GIRARD MD Exam/Review of Systems Vital Signs Vitals Vital Signs Date Time Temp Pulse Resp B/P Pulse Ox O2 Delivery O2 Flow Rate FiO2 12/04/16 20:25 108 12/04/16 20:00 99.4 16 117/82 94 12/04/16 20:00 40 11/30/16 20:16 Mechanical Ventilator Intake and Output 12/03/16 12/03/16 12/04/16 15:00 23:00 07:00 Intake Total 1000 ml 650 ml Output Total 1000 ml Balance 1000 ml -350 ml Exam GENERAL: Chronically ill-appearing, middle-aged, vegetative man who is in no distress. HEENT: Head atraumatic, normocephalic. Sclerae anicteric. Buccal mucosa dry. NECK: Supple. CHEST: Rise symmetrical. Breath sounds diminished to bases. HEART: S1, S2. ABDOMEN: Soft. Bowel tones hypoactive. EXTREMITIES: No cyanosis. Results Result Diagram: 12/04/16 0620 12/04/16 0620 Results 24 hrs Laboratory Tests Test 12/04/16 06:20 White Blood Count 10.0 Red Blood Count 3.72 L Hemoglobin 9.8 L Hematocrit 32.6 L Mean Corpuscular Volume 87.6 Mean Corpuscular Hemoglobin 26.3 L Mean Corpuscular Hemoglobin Concent 30.1 L Red Cell Distribution Width 14.6 H Platelet Count 395 Mean Platelet Volume 10.6 H Neutrophils % 71.0 Lymphocytes % 21.3 Monocytes % 5.4 Eosinophils % 1.5 Basophils % 0.4 Nucleated Red Blood Cells % 0.0 Neutrophils # 7.1 Lymphocytes # 2.1 Monocytes # 0.5 Eosinophils # 0.2 Basophils # 0.0 Nucleated Red Blood Cells # 0.0 Sodium Level 139 Potassium Level 4.7 Chloride Level 107 Carbon Dioxide Level 22 Anion Gap 15 Blood Urea Nitrogen 19 Creatinine 1.86 H Glucose Level 104 Calcium Level 9.7 Medications Medications Current Medications Acetaminophen (Tylenol Liquid) 650 mg Q6H PRN PO PAIN LEVEL 1-3 OR FEVER Last administered on 11/26/16 09:33; Admin Dose 650 MG; Start 11/21/16 at 03:00 Ondansetron HCl (Zofran Inj) 4 mg Q6H PRN IV NAUSEA AND/OR VOMITING Last administered on 12/02/16 20:58; Admin Dose 4 MG; Start 11/21/16 at 13:00 Morphine Sulfate (morphine) 2 mg Q4H PRN IV PAIN LEVEL 7-10; Start 11/21/16 at 13:00 Enoxaparin Sodium (Lovenox) 30 mg DAILY SC Last administered on 12/02/16 09:15 ; Admin Dose 30 MG; Start 11/22/16 at 09:00; Status Future Hold Aspirin (Aspirin) 81 mg DAILY PO Last administered on 12/04/16 09:29; Admin Dose 81 MG; Start 11/22/16 at 09:00 Lansoprazole 30 mg 30 mg DAILY@06 GTB Last administered on 12/04/16 05:15; Admin Dose 30 MG; Start 11/30/16 at 06:00 Potassium Chloride/Dextrose/ Sod Cl (D5-1/2ns + KCl 20 Meq) 1,000 ml @ 60 mls/ hr [id number] IV Last administered on 12/03/16 20:45; Admin Dose 60 MLS/HR; Start 12/01/16 at 18:00 Metoprolol Tartrate (Lopressor) 12.5 mg BID PO Last administered on 12/04/16 09:30; Admin Dose 12.5 MG; Start 12/02/16 at 21:00 UMM MANNING MD Dec 04, 2016 22:24
== END 2016-12-04 23:08 | DRG 870 ==
LOC: E/R 22:57 → TEL 11-21 02:41
PROVIDERS: ADMIT Internal Medicine; ATTEND Internal Medicine
PROC: 5A1955Z Respiratory Ventilation, Greater than 96 Consecutive Hours (ICD-10-PCS; principal; 2016-11-21)
PROC: 05HM33Z Insertion of Infusion Device into Right Internal Jugular Vein, Percutaneous Approach (ICD-10-PCS; 2016-11-21)
DX: A41.9 Sepsis, unspecified organism (principal); N17.0 Acute kidney failure with tubular necrosis; I21.4 Non-ST elevation (NSTEMI) myocardial infarction; R65.21 Severe sepsis with septic shock; J15.1 Pneumonia due to Pseudomonas; J15.6 Pneumonia due to other Gram-negative bacteria; J13 Pneumonia due to Streptococcus pneumoniae; G93.1 Anoxic brain damage, not elsewhere classified; J96.10 Chronic respiratory failure, unspecified whether with hypoxia or hypercapnia; R40.3 Persistent vegetative state; E87.0 Hyperosmolality and hypernatremia; K56.60 Unspecified intestinal obstruction; Z99.11 Dependence on respirator [ventilator] status; R71.0 Precipitous drop in hematocrit; I47.1 Supraventricular tachycardia; I48.92 Unspecified atrial flutter; Z93.0 Tracheostomy status; F20.9 Schizophrenia, unspecified; Z86.74 Personal history of sudden cardiac arrest; Q63.1 Lobulated, fused and horseshoe kidney; G40.909 Epilepsy, unspecified, not intractable, without status epilepticus; Z93.1 Gastrostomy status; K56.41 Fecal impaction; E87.6 Hypokalemia; R31.9 Hematuria, unspecified; L98.8 Other specified disorders of the skin and subcutaneous tissue; E66.9 Obesity, unspecified; Z68.39 Body mass index [BMI] 39.0-39.9, adult
CPT/HCPCS: 36600; 71010; 74000; 74176; 76775; 80048; 80053; 80061; 80150; 80202; 81003; 82803; 83605; 83690; 84100; 84443; 84484; 85014; 85018; 85025; 85610; 85730; 87040; 87070; 87081; 93005; 93306; 94002; 94003; 94640; 94664; C1751; C9113; J0278; J1650; J2405; J2543; J3370; J3480; J7030

== ENCOUNTER 2016-12-16 19:41 | Inpatient (IN) | payer MEDICAID ==
[~2016-12-16] VITALS: Ht 152.4 cm; Wt 64.0 kg
[~2016-12-16 19:41] MED LIST changes: +LEVE500S8 GTB; -LEVE500S9 GTB
[2016-12-16] MEDS ORDERED: SOD CHLORIDE 0.9% 1,000 ML IV STA (19:53)
[2016-12-16] MEDS ORDERED: ONDANSETRON 4 MG INJ IV STA (19:53)
[2016-12-16] MEDS ORDERED: FAMOTIDINE 20 MG INJ IV ONE (20:00)
[2016-12-16] MEDS ORDERED: SODIUM CHLORIDE 0.9% 1L BAG IV* STA (20:46)
[2016-12-16 21:00] LABS: ADD SCAN DIFF NO
[2016-12-16 21:06] LABS: BASOPHIL # 0.1 10^3/ul (0.0-0.1); BASOPHILS % 0.3 % (0.0-2.0); EOSINOPHILS # 0.1 10^3/ul (0.0-0.5); EOSINOPHILS % 0.5 % (0.0-7.0); HEMATOCRIT 34.7 % (42.0-52.0); HEMOGLOBIN 11.2 g/dl (14.0-18.0); LYMPHOCYTES # 1.7 10^3/ul (0.8-2.9); LYMPHOCYTES % 10.7 % (15.0-51.0); MEAN CORPUSCULAR HEMOGLOBIN 26.8 pg (29.0-33.0); MEAN CORPUSCULAR HGB CONC 32.3 g/dl (32.0-37.0); MEAN PLATELET VOLUME 10.5 fl (7.4-10.4); MONOCYTE # 0.7 10^3/ul (0.3-0.9); MONOCYTES % 4.1 % (0.0-11.0); NEUTROPHIL # 13.4 10^3/ul (1.6-7.5); NEUTROPHILS % 84.1 % (39.0-77.0); PLATELET COUNT 373 10^3/UL (140-415); RED BLOOD COUNT 4.18 10^6/ul (4.70-6.10); RED CELL DISTRIBUTION WIDTH 14.5 % (11.5-14.5); WHITE BLOOD COUNT 15.9 10^3/ul (4.8-10.8)
[2016-12-16 21:32] LABS: ALANINE AMINOTRANSFERASE 27 IU/L (13-69); ALBUMIN 4.9 g/dl (3.3-4.9); ALBUMIN/GLOBULIN RATIO 1.28; ALKALINE PHOSPHATASE 103 IU/L (42-121); ANION GAP 15 (8-16); ASPARTATE AMINO TRANSFERASE 34 IU/L (15-46); BLOOD UREA NITROGEN 32 mg/dl (7-20); CALCIUM 9.8 mg/dl (8.4-10.2); CARBON DIOXIDE 34 mmol/L (21-31); CHLORIDE 97 mmol/L (97-110); CREATININE 0.83 mg/dl (0.61-1.24); GLUCOSE 128 mg/dl (70-220); POTASSIUM 3.2 mmol/L (3.5-5.1); SODIUM 143 mmol/L (135-144); TOTAL PROTEIN 8.7 g/dl (6.1-8.1)
[2016-12-16] MEDS ORDERED: ASPI-664 GTB (21:44)
[2016-12-16] MEDS ORDERED: ENOX30DI10 SQ (21:44)
[2016-12-16] MEDS ORDERED: LANS30CA GTB (21:45)
[2016-12-16] MEDS ORDERED: METO-448 GTB (21:47)
[2016-12-16] MEDS ORDERED: KEP100S GTB (21:48)
[2016-12-16] MEDS ORDERED: UDREG GTB (21:50)
[2016-12-16] MEDS ORDERED: ONDA4TAB8 GTB (21:51)
[2016-12-16] MEDS ORDERED: ACET325T33 GTB (21:53)
[2016-12-16 21:54] LABS: TROPONIN-I < 0.012 ng/ml (0.00-0.12)
[2016-12-16] MEDS ORDERED: TYL500 GTB (21:54)
[2016-12-16] MEDS ORDERED: FERR220S2 GTB (21:56)
[2016-12-16] MEDS ORDERED: ASC500 GTB (21:58)
[2016-12-16] MEDS ORDERED: MULT9LIQ4 GTB (22:01)
[2016-12-16] MEDS ORDERED: CRAN425C GTB (22:02)
[2016-12-16] MEDS ORDERED: MAGN400O4 GTB (22:03)
[2016-12-16] MEDS ORDERED: FLEETPED PR (22:04)
[2016-12-16] MEDS ORDERED: BISA10SU75 PR (22:04)
[2016-12-16] MEDS ORDERED: DOCU-144 GTB (22:05)
[2016-12-16 22:07] LABS: AADO2 Arterial 92.2 mmHg (7.0-24.0); Arterial Base Excess 9.6 mmol/L (-3.0-3); Arterial COHb 0.3 % (0.0-3.0); Arterial Fraction of Oxyhgb 98.1 % (93.0-99.0); Arterial HCO3 32.6 mmol/L (22.0-26.0); Arterial MetHb 0.3 % (0.0-1.5); Arterial Total Hemglobin 12.1 g/dl (12.0-18.0); MODE VENT - AC
[2016-12-16] MEDS ORDERED: ONDANSETRON 4 MG INJ IV PRN (22:30)
[2016-12-16] MEDS ORDERED: ACETAMINOPHEN 325 MG TAB PO PRN (22:30)
--- NOTE | 2016-12-16 22:30 | RADRPT ---
PROCEDURE: CT ABDOMEN/PELVIS WITHOUT CONTRAST CLINICAL INDICATION: 46-year-old male with abdominal pain. TECHNIQUE: The study was performed utilizing a GE [employer] VCT 64-slice CT scanner. Direct axia l sections were obtained through the abdomen and pelvis without the use of intravenous contrast mate rial. Sagittal and coronal reformations were obtained. One or more of the following dose reduction t echniques were utilized: automated exposure control, adjustment of the mA and/or kV according to pat ient's size or use of iterative reconstruction technique. The images were reviewed on a PACS workst atLighting by LED. CTD/vol = 17.1 mGy; Total Exam DLP = 1052.1 mGy-cm. COMPARISON: CT abdomen/pelvis November 23, 2016. FINDINGS: There is minimal dependent pericardial effusion. There is mild bibasilar subsegmental atelectasis. There is no evidence for significant pleural effusion. The liver has a normal size and contour wit hout focal areas of abnormal density. No intrahepatic nor extrahepatic biliary ductal dilatation is seen. The gallbladder demonstrates no wall thickening nor pericholecystic fluid. No biliary stones a re evident. The pancreas is without areas of abnormal attenuation. The spleen is identified and has a normal size without abnormal density. The adrenal glands are unremarkable. There is a horseshoe k idney present. There are innumerable calcifications identified throughout the calyceal systems bila terally. There is no evidence for hydroureteronephrosis to suggest obstructive uropathy. The urina ry bladder contains urine. There is a gastrostomy tube again identified within the air-filled stomac h. There is mild retained stool within the ascending colon with air identified throughout the rest of the colon without gross bowel obstruction. There is mild diffuse thickening of the rectal region which may represent a mild proctitis. The appendix is visualized and is without abnormal thickenin g or surrounding inflammatory reaction. There is no significant free fluid. The aortoiliac vessels a re without aneurysmal dilatation. The osseous structures are intact. IMPRESSION: 1. Mild bibasilar subsegmental atelectasis. 2. 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 3. Gastrostomy tube within the air-filled stomach. 4. Mild diffuse rectal thickening suggestive of a proctitis. 5. No CT evidence for appendicitis. .Mp Blackburn MD, MD Date Time Electronically viewed and signed by .Mp Blackburn MD, MD on 12/16/2016 22:30 .Jennifer/
[2016-12-16 23:09] VITALS: TEMP 98.2
[2016-12-16 23:19] LABS: ADD UMIC YES; UR ASCORBIC ACID 40 mg/dL (NEGATIVE); UR BILIRUBIN (Dip) NEGATIVE (NEGATIVE); UR BLOOD (Dip) 3+ mg/dL (NEGATIVE); UR CLARITY SLIGHTLY CLOUDY (CLEAR); UR COLOR YELLOW (YELLOW); UR GLUCOSE (Dip) NEGATIVE (NEGATIVE); UR KETONES (Dip) NEGATIVE (NEGATIVE); UR LEUKOCYTE ESTERASE (Dip) TRACE Leu/ul (NEGATIVE); UR NITRITE (Dip) NEGATIVE (NEGATIVE); UR RBC > 182 /HPF (0-5); UR SPECIFIC GRAVITY (Dip) 1.017 (1.003-1.030); UR TOTAL PROTEIN (Dip) 1+ mg/dl (NEGATIVE); UR UROBILINOGEN (Dip) NEGATIVE (NEGATIVE)
--- NOTE | 2016-12-16 23:29 | ERA ---
ER Documentation Chief Complaint Date/Time DATE: 12/16/16 TIME: 23:14 Chief Complaint sent for coffee ground emesis from SNF. trach-vent HPI This unfortunate 46-year-old male in vegetative state presents for single episode of coffee-ground emesis at his half-way. Has a gastrostomy tube in his chronic trach vent patient. No other complaints were sent with the patient and there is no paperwork received. Paramedics received only report of the single episode of vomiting. ROS All systems reviewed and are negative except as per history of present illness. Medications Home Meds Reported Medications Docusate Sodium* (Colace*) 100 Mg Capsule, 100 MG GTB QHS, #30 CAP 12/16/16 Bisacodyl* (Bisacodyl*) 10 Mg Supp, 10 MG CA DAILY Y for PRN, SUPP 12/16/16 Sod Phosphate/Sod Biphosphate* (Fleet* Enema Pediatric) 66.6 Ml Soln, 66.6 ML CA Q2DAYS Y for CONSTIPATION, ENEMA 12/16/16 Magnesium Hydroxide* (Milk Of Magnesia*) 400 Mg/5 Ml Oral.susp, 30 ML GTB DAILY , ML 12/16/16 Cranberry Extract (Cranberry) 425 Mg Capsule, 425 MG GTB BID, CAP 12/16/16 Multivit &Minerals/Ferrous Fum (MULTIVITAMIN LIQUID) 9 Mg/15 Ml Liquid, 5 ML GTB DAILY 12/16/16 Ascorbic Acid (Vitamin C) 500 Mg Tab, 500 MG GTB DAILY, TAB 12/16/16 Ferrous Sulfate (Ferrous Sulfate) 220 Mg/5 Ml Solution, 220 MG GTB DAILY 12/16/16 Acetaminophen* (Tylenol*) 500 Mg Tab, 1000 MG GTB Q4H Y for MODERATE PAIN 4-6/10 , TAB 12/16/16 Acetaminophen* (Tylenol*) 325 Mg Tablet, 650 MG GTB Q4H Y for MILD PAIN LEVEL 1- 3, TAB FOR FEVER 101 AND ABOVE,FOR TRACH TUBE CHANGE 12/16/16 Ondansetron Hcl* (Zofran*) 4 Mg Tablet, 4 MG GTB Q6H Y for NAUSEA AND OR VOMITING, TAB 12/16/16 Metoclopramide* (Reglan*) 10 Mg/10 Ml Soln, 5 MG GTB Q8, ML 12/16/16 Levetiracetam* (Keppra* (Ped)) 100 Mg/Ml Liq, 15 ML GTB BID for 30 Days, BOTTLE 12/16/16 Metoprolol Tartrate* (Lopressor*) 25 Mg Tab, 12.5 MG GTB BID, #60 TAB HOLD IF SBP<110 12/16/16 Lansoprazole* (Lansoprazole*) 30 Mg Capsule.dr, 30 MG GTB DAILY, CAP 12/16/16 Enoxaparin Sodium* (Lovenox*) 30 Mg/0.3 Ml Disp.syrin, 30 MG SQ DAILY, SYR 12/16/16 Aspirin* (Aspirin* EC) 81 Mg Tablet.dr, 81 MG GTB DAILY, TAB 12/16/16 Discontinued Reported Medications Ascorbic Acid* (Vitamin C* Liq) 500 Mg/5 Ml Syrup, 500 MG GTB DAILY, ML 07/19/16 Cran/Vitc/Mannose/Inulin/Brom (Uti-Stat Liquid) 3,875 Mg/30 Ml Liquid, 3875 MG GTB BID 07/19/16 Acetaminophen* (Acetaminophen*) 650 Mg Tablet, 650 MG GTB Q4 Y for PAIN AND OR ELEVATED TEMP, #30 TAB 07/19/16 Metoclopramide* (Reglan*) 10 Mg/10 Ml Soln, 5 MG GTB Q8, ML 07/19/16 Esomeprazole Mag Trihydrate (Nexium) 40 Mg Capsule.dr, 40 MG GTB DAILY, #30 CAP 07/19/16 Multivit &Minerals/Ferrous Fum (MULTIVITAMIN LIQUID) 9 Mg/15 Ml Liquid, 3 MG GTB DAILY 07/19/16 Magnesium Hydroxide* (Milk Of Magnesia*) 400 Mg/5 Ml Oral.susp, 30 ML GTB Q24H Y for CONSTIPATION, ML 07/19/16 Levetiracetam* (Keppra*) 500 Mg/5 Ml Solution, 1500 MG GTB BID, BOTTLE 07/19/16 Na Phos,M-B/Na Phos,Di-Ba (Fleet Enema Extra) 230 Ml Enema, 230 ML RC Q48 Y for CONSTIPATION, ENEMA 07/19/16 Ferrous Sulfate (Ferrous Sulfate) 220 Mg/5 Ml Elixir, 330 MG GTB BID, BOTTLE 07/19/16 Bisacodyl* (Bisacodyl*) 10 Mg Supp, 10 MG CA Q24H Y for CONSTIPATION, SUPP 07/19/16 Docusate Sodium* (Docusate Sodium*) 100 Mg Capsule, 100 MG GTB QHS, #30 CAP 07/19/16 Chlorhexidine Gluconate (Peridex) 473 Ml Mouthwash, 15 ML MM Q12, BOTTLE 07/19/16 Albuterol Sulfate* (Albuterol Sulfate* Neb) 0.083%-3 Ml Neb, 2.5 MG NEB Q3H Y for WHEEZING AND SOB, #30 VIAL 07/19/16 Allergies Allergies: Coded Allergies: No Known Drug Allergy (Unverified Allergy, Unknown, 12/16/16) PMhx/Soc History of Surgery: Yes (tracheostomy, gtube) Anesthesia Reaction: No Hx Neurological Disorder: Yes (anoxic encephalpathy) Hx Respiratory Disorders: Yes (vent dependent) Hx Cardiac Disorders: No (cardiac arrest 2014, mi, anemia) Hx Psychiatric Problems: Yes (schizophrenia, suicidal attempt) Hx Miscellaneous Medical Probl: No Hx Alcohol Use: No Hx Substance Use: No Hx Tobacco Use: No Smoking Status: Never smoker Physical Exam Vitals Vital Signs Date Time Temp Pulse Resp B/P Pulse Ox O2 Delivery O2 Flow Rate FiO2 12/16/16 23:09 98.2 90 16 108/91 100 Mechanical Ventilator 12/16/16 21:20 107 16 108/84 100 Mechanical Ventilator 12/16/16 19:44 98.6 104 18 121/88 99 Physical Exam Const: [] Mild distress Head: Atraumatic Eyes: Normal Conjunctiva ENT: Normal External Ears, Nose and Mouth. Neck: Full range of motion..~ No meningismus. Resp: Clear to auscultation bilaterally, transmitted ventilator sounds Cardio: Regular tachycardia, no murmurs Abd: Soft, no obvious tenderness, non distended. Normal bowel sounds, feeding tube in place clean dry and intact at site Skin: No petechiae or rashes, mild diaphoresis Ext: No cyanosis, or edema, patient with various decubitus ulcers as well as limbs fixed and contracture Neur: Awake , responds to pain, unable to form for neurological exam, unknown if patient moves all 4 extremity Result Diagram: 12/16/16204912/16/162049 Results 24 hrs Laboratory Tests Test 12/16/16 20:50 12/16/16 21:39 White Blood Count 15.910^3/ul Red Blood Count 4.1810^6/ul Hemoglobin 11.2g/dl Hematocrit 34.7% Mean Corpuscular Volume 83.0fl Mean Corpuscular Hemoglobin 26.8pg Mean Corpuscular Hemoglobin Concent 32.3g/dl Red Cell Distribution Width 14.5% Platelet Count 67425^3/UL Mean Platelet Volume 10.5fl Neutrophils % 84.1% Lymphocytes % 10.7% Monocytes % 4.1% Eosinophils % 0.5% Basophils % 0.3% Nucleated Red Blood Cells % 0.0/100WBC Neutrophils # 13.410^3/ul Lymphocytes # 1.710^3/ul Monocytes # 0.710^3/ul Eosinophils # 0.110^3/ul Basophils # 0.110^3/ul Nucleated Red Blood Cells # 0.010^3/ul Sodium Level 143mmol/L Potassium Level 3.2mmol/L Chloride Level 97mmol/L Carbon Dioxide Level 34mmol/L Anion Gap 15 Blood Urea Nitrogen 32mg/dl Creatinine 0.83mg/dl Glucose Level 128mg/dl Lactic Acid Level 1.7mmol/L Calcium Level 9.8mg/dl Total Bilirubin 0.0mg/dl Direct Bilirubin 0.00mg/dl Indirect Bilirubin 0.0mg/dl Aspartate Amino Transf (AST/SGOT) 34IU/L Alanine Aminotransferase (ALT/SGPT) 27IU/L Alkaline Phosphatase 103IU/L Troponin I < 0.012ng/ml Total Protein 8.7g/dl Albumin 4.9g/dl Globulin 3.80g/dl Albumin/Globulin Ratio 1.28 Lipase 189U/L Blood Gas Specimen Source Blood arterial Arterial Blood Date Drawn 12/16/2016 10:00:28 PM Arterial Blood pH (Temp corrected) 7.551 Arterial Blood pCO2 (Temp correct) 38.0mmhg Arterial Blood pO2 (Temp corrected) 149.3mmHG Arterial Blood HCO3 32.6mmol/L Arterial Blood Base Excess 9.6mmol/L Arterial Blood Oxygen Saturation 98.7mmHG Zechariah Test N/A Arterial Blood Gas Puncture Site Right Radial Arterial Blood Carboxyhemoglobin 0.3% Arterial Blood Methemoglobin 0.3% Blood Gas A-a O2 Differential 92.2mmHg Oxyhemoglobin Percent 98.1% Total Hemoglobin 12.1g/dl Blood Gas Temperature 37.0C Blood Gas Respiration Rate 14.0 Blood Gas Actual Respiration Rate 14 Blood Gas Modality VENT - AC FiO2 40.0% Blood Gas Tidal Volume 450.0mL Blood Gas Low PEEP Setting 5.0cmH2O Blood Gas Critical Value Read Back Nba MILAN DO Blood Gas Notified Whom MG Blood Gas Notified Time 12/16/2016 10:07:14 PM Current Medications Medications (Trade) Dose Ordered Sig/Kevin Route PRN Reason Start Time Stop Time Status Last Admin Dose Admin Sodium Chloride (NS) 1,000 ml @ 1,000 mls/hr Q1H STAT IV 12/16/16 19:53 12/16/16 20:52 DC 12/16/16 22:48 Ondansetron HCl (Zofran Inj) 4 mg ONCE STAT IV 12/16/16 19:53 12/16/16 19:59 DC 12/16/16 22:47 Famotidine (Pepcid Iv) 20 mg ONCE ONCE IV 12/16/16 20:00 12/16/16 20:01 DC 12/16/16 22:47 Sodium Chloride (NS) 2,020 ml BOLUS OVER 2 HOURS STAT IV* 12/16/16 20:46 12/16/16 20:48 DC 12/16/16 22:54 Ondansetron HCl (Zofran Inj) 4 mg ER BRIDGE PRN IV NAUSEA AND/OR VOMITING 12/16/16 22:30 12/17/16 22:29 Acetaminophen 650 mg 650 mg ER BRIDGE PRN PO MILD PAIN/FEVER 12/16/16 22:30 12/17/16 22:29 Potassium Chloride 20 meq/ Sodium Chloride 110 ml @ 55 mls/hr ONCE ONCE IVPB 12/16/16 23:30 12/17/16 01:29 Magnesium Sulfate/ Dextrose (Magnesium Sulfate 1 Gm/D5W) 100 ml @ 100 mls/hr ONCE ONCE IVPB 12/16/16 23:30 12/17/16 00:29 Procedures/MDM Patient with sepsis likely secondary UTI and possible concomitant proctitis. Patient has dark cloudy urine although the urine results have not been released yet. Was tachycardic on admission. Diagnosis of sepsis was not made until 78 minutes after the patient's arrival secondary to difficulty obtaining vascular access and blood in only one sirs criteria until the patient's white blood cell count had returned. Patient with hypokalemia given IV potassium replacement as well as magnesium. Treated with vancomycin and Zosyn for hospital-acquired infection has been admitted for sepsis multiple times here. Was given 30 cc were clear of IV fluid bolus although his blood pressure was stable prior to fluid administration. ABG was favorable and the patient's oxygen was actually able to be decreased based on the ABG results. Spoke with the admitting physician, Dr. Mack who saw the patient at the bedside in the emergency room. EKG interpretation: Sinus tachycardia rate of 108, normal axis, no ST or T-wave changes concerning for acute ischemia. Normal intervals. radio television technical director interpretation: Sinus tachycardia without other arrhythmias Chest x-ray interpretation: I see no acute process. I see no infiltrates, no wide mediastinum, no pneumothorax, no fractures CT abdomen pelvis interpretation: Some rectal inflammation, renal stones, I see no obstruction, no free air, no abnormal bowel gas pattern, no fractures Critical care time 37 minutes: This does not include any billable procedures. It does include management of sepsis and debilitated patient, ventilator management, careful fluid administration, antibiotic administration, multiple as the patient's bedside to reassess status, chart reviewed, discussion with admitting doctor. Ultrasound guided IV insertion note: Staff was unable to obtain vascular access in a patient need antibiotics and fluid. Use the [employer] ultrasound machine to introduce an 18-gauge extended angiocatheter into the right basilic vein. Good blood flow, flushed well. Medications given through the same. Patient taught the procedure with no complications per Departure Diagnosis: Primary Impression: Sepsis Additional Impressions: Proctitis UTI (urinary tract infection) Hypokalemia Condition: Serious SANJANA MILAN DO Dec 16, 2016 23:26
[2016-12-16] MEDS ORDERED: POTASSIUM CHLORIDE 20 MEQ in SOD CHLORIDE 0.9% 100 ML IVPB ONE (23:30)
[2016-12-16] MEDS ORDERED: MAGNESIUM SULFATE 1 GM/D5W 100 ML IVPB ONE (23:30)
[2016-12-16] MEDS ORDERED: PIPER-TAZO 3.375 GM IV (PMX) 100 ML IVPB ONE (23:30)
[2016-12-16] MEDS ORDERED: VANCOMYCIN 1 GM (PMX) 250 ML IVPB SCH (23:30)
[2016-12-17] VITALS (34 sets, daily range): BP systolic 82–120; BP diastolic 63–86; PULSE 72–93; RESP 12–22; Ht 152.4 cm; Wt 64.0 kg
[2016-12-17] MEDS ORDERED: ACETAMINOPHEN 650 MG SUPP PR PRN
[2016-12-17] MEDS ORDERED: NACL 0.9% 3 ML SYG IV SCH
[2016-12-17] MEDS: SOD CHLORIDE 0.9% 1,000 ML IV SCH ×3 (01:09→15:35)
--- NOTE | 2016-12-17 04:58 | HP ---
Date/Time of Note Date/Time of Note DATE: 12/17/16 TIME: 04:42 Assessment/Plan VTE Prophylaxis VTE Prophylaxis Intervention: SCD's Lines/Catheters Urinary Cath still in place: No Assessment/Plan Chief Complaint/Hosp Course This is a 46-year-old male being admitted to the telemetry floor for: #1 Genitourinary infection: Leukocytosis: Patient has trace leukoesterase on U/ A and there are possible signs of proctitis on the CT scan of the abdomen and pelvis. At the current time will treat with broad-spectrum antibiotics of IV Vanco and zosyn. Will consult ID for further recommendations. Will await urine and blood cultures.IV fluid hydration. #2 coffee-ground emesis: Patient apparently had one episode of coffee-ground emesis in the nursing facility. At the current time will hold tube feeding. Will consult GI for further evaluation. #3 Vent-dependant respiratory failure: continue vent management. Pulmonology on consult. #4Possible seizure history: At the current time will put patient on IV Keppra 1500 mg twice daily he is npo. Once patient can resume feeding through the G- tube will resume home medications. #5 Possible hypertension: We will continue to monitor. Once patient can reduce resume feeds we will restart her home metoprolol. If blood pressures are elevated will put as needed hydralazine #6 DVT and GI prophylaxis: SCDs, Protonix further treatment strategy will remain as per the clinical course. We will need to obtain We will need to obtain records from the patient's nursing facility. Patient's CODE STATUS is a DNR. Problems: HPI/ROS Admit Date/Time Admit Date/Time Dec 16, 2016 at 22:27 Hx of Present Illness Chief complaint: Coffee-ground emesis. This unfortunate 46-year-old male in vegetative state presents for single episode of coffee-ground emesis at his shelter. Has a gastrostomy tube in his chronic trach vent patient. No other complaints were sent with the patient and there is no paperwork received. Paramedics received only report of the single episode of vomiting. Patient is lying in bed and is nonresponsive. He is contracted all of his extremities. 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) PMH/Family/Social Past Medical History Unknown secondary to patient's clinical condition and currently no medical history documentation available Past Surgical History Unknown secondary to patient's clinical condition and currently no medical history documentation available Family History Significant Family History: other (Unknown secondary to patient's clinical condition and currently no medical history documentation available) Social History Unknown secondary to patient's clinical condition and currently no medical history documentation available Smoking Status: Never smoker Exam/Review of Systems Vital Signs Vitals Vital Signs Date Time Temp Pulse Resp B/P Pulse Ox O2 Delivery O2 Flow Rate FiO2 12/17/16 03:00 93 14 105/80 98 12/17/16 02:55 30 12/17/16 01:00 98.9 12/17/16 00:00 Mechanical Ventilator Intake and Output 12/16/16 12/16/16 12/17/16 15:00 23:00 07:00 Intake Total 620 ml Balance 620 ml Exam Exam General: Patient is nonverbal, 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 HEENT: Chronic trach in place Neck: Supple with full range of motion. Lungs: Clear to auscultation bilaterally no crackles rales or wheezing Heart: Normal S1-S2, Regular rhythm and rate. Abdomen: Soft , nontender, nondistended , bowel sounds are present. No guarding no rebound tenderness , No masses or organomegaly. No costovertebral temporal angle mass Extremities: Normal to inspection, no edema no cyanosis Neurologic: Nonverbal, contractures of all 4 extremities Additional Comments PROCEDURE: CT ABDOMEN/PELVIS WITHOUT CONTRAST CLINICAL INDICATION: 46-year-old male with abdominal pain. TECHNIQUE: The study was performed utilizing a GE Prime FocuspeTranscepta VCT 64-slice CT scanner. Direct axial sections were obtained through the abdomen and pelvis without the use of intravenous contrast material. Sagittal and coronal reformations were obtained. One or more of the following dose reduction techniques were utilized: automated exposure control, adjustment of the mA and/ or kV according to patient's size or use of iterative reconstruction technique. The images were reviewed on a PACS workstation. CTD/vol = 17.1 mGy; Total Exam DLP = 1052.1 mGy-cm. COMPARISON: CT abdomen/pelvis November 23, 2016. FINDINGS: There is minimal dependent pericardial effusion. There is mild bibasilar subsegmental atelectasis. There is no evidence for significant pleural effusion. The liver has a normal size and contour without focal areas of abnormal density. No intrahepatic nor extrahepatic biliary ductal dilatation is seen. The gallbladder demonstrates no wall thickening nor pericholecystic fluid. No biliary stones are evident. The pancreas is without areas of abnormal attenuation. The spleen is identified and has a normal size without abnormal density. The adrenal glands are unremarkable. There is a horseshoe kidney present. There are innumerable calcifications identified throughout the calyceal systems bilaterally. There is no evidence for hydroureteronephrosis to suggest obstructive uropathy. The urinary bladder contains urine. There is a gastrostomy tube again identified within the air-filled stomach. There is mild retained stool within the ascending colon with air identified throughout the rest of the colon without gross bowel obstruction. There is mild diffuse thickening of the rectal region which may represent a mild proctitis. The appendix is visualized and is without abnormal thickening or surrounding inflammatory reaction. There is no significant free fluid. The aortoiliac vessels are without aneurysmal dilatation. The osseous structures are intact. IMPRESSION: 1. Mild bibasilar subsegmental atelectasis. 2. 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 3. Gastrostomy tube within the air-filled stomach. 4. Mild diffuse rectal thickening suggestive of a proctitis. 5. No CT evidence for appendicitis. .Mp Blackburn MD, MD Date Time Electronically viewed and signed by .Mp Blackburn MD, on 12/16/2016 22:30 Labs Result Diagram: 12/16/16204912/16/162049 Medications Medications Current Medications Sodium Chloride (NS) 1,000 ml @ 80 mls/hr [id number] IV Last administered on 12/17t 01:09; Admin Dose 80 MLS/HR; Start 12/16/16 at 23:31 Acetaminophen (Tylenol Supp) 650 mg Q6H PRN [place] PAIN LEVEL 1-3 OR FEVER; Start 12/17/16 at 00:00 Pantoprazole (Protonix Iv) 40 mg DAILY@06 IV ; Start 12/17/16 at 06:00 SHERLY GUILLEN Dec 17, 2016 04:54
[2016-12-17] MEDS ORDERED: VANCOMYCIN IV PER PHARMACY XX SCH (05:00)
[2016-12-17] MEDS: PIPER-TAZO 3.375 GM IV (PMX) 100 ML IVPB SCH ×4 (05:20→23:45)
[2016-12-17 05:58] LABS: ADD SCAN DIFF NO
[2016-12-17] MEDS ORDERED: HEPARIN 5,000 UNIT/0.5 ML VIAL SC SCH (06:00)
[2016-12-17] MEDS ORDERED: PANTOPRAZOLE 40 MG INJ IV SCH (06:00)
[2016-12-17 06:05] LABS: BASOPHILS % 0.5 % (0.0-2.0); EOSINOPHILS # 0.2 10^3/ul (0.0-0.5); EOSINOPHILS % 2.1 % (0.0-7.0); HEMATOCRIT 32.6 % (42.0-52.0); HEMOGLOBIN 9.9 g/dl (14.0-18.0); LYMPHOCYTES % 23.1 % (15.0-51.0); MEAN CORPUSCULAR HEMOGLOBIN 26.1 pg (29.0-33.0); MEAN CORPUSCULAR HGB CONC 30.4 g/dl (32.0-37.0); MEAN CORPUSCULAR VOLUME 85.8 fl (82.0-101.0); MEAN PLATELET VOLUME 10.9 fl (7.4-10.4); MONOCYTE # 0.5 10^3/ul (0.3-0.9); MONOCYTES % 5.5 % (0.0-11.0); NEUTROPHIL # 5.9 10^3/ul (1.6-7.5); NEUTROPHILS % 68.3 % (39.0-77.0); PLATELET COUNT 262 10^3/UL (140-415); WHITE BLOOD COUNT 8.7 10^3/ul (4.8-10.8)
[2016-12-17 06:21] LABS: ALBUMIN 4.1 g/dl (3.3-4.9); ALBUMIN/GLOBULIN RATIO 1.2; BILIRUBIN,INDIRECT 0.2 mg/dl (0-1.1); BILIRUBIN,TOTAL 0.2 mg/dl (0.2-1.3); CALCIUM 9.1 mg/dl (8.4-10.2); CREATININE 0.77 mg/dl (0.61-1.24); MAGNESIUM 2.9 mg/dl (1.7-2.5); POTASSIUM 3.4 mmol/L (3.5-5.1); TOTAL PROTEIN 7.5 g/dl (6.1-8.1)
[2016-12-17 08:10] LABS: AADO2 Arterial 122.5 mmHg (7.0-24.0); Allen Test ACCEPTAB; Arterial Base Excess 2.7 mmol/L (-3.0-3); Arterial COHb 0.3 % (0.0-3.0); Arterial Fraction of Oxyhgb 92.1 % (93.0-99.0); Arterial HCO3 24.2 mmol/L (22.0-26.0); Arterial MetHb 0.1 % (0.0-1.5); Arterial Total Hemglobin 10.2 g/dl (12.0-18.0); MODE VENT - AC
[2016-12-17] MEDS: LEVETIRACETAM 1500 MG (PMX) 100 ML IVPB SCH ×2 (08:45→21:09)
[2016-12-17] MEDS ORDERED: VANCOMYCIN 1 GM in NS 250 ML IVPB SCH (10:00)
--- NOTE | 2016-12-17 11:08 | PN ---
Date/Time of Note Date/Time of Note DATE: 12/17/16 TIME: 10:58 Assessment/Plan VTE Prophylaxis VTE Prophylaxis Intervention: SCD's Lines/Catheters Urinary Cath still in place: No Assessment/Plan Chief Complaint/Hosp Course Assessment and plan: 1. Genitourinary infection: Leukocytosis: Next secondary to urinary tract infection, signs of proctitis on the CT scan of the abdomen and pelvis. Continue IV Vanco and zosyn. Infectious disease doctor consulted Follow-up urine and blood cultures. Continue IV fluid hydration. 2. coffee-ground emesis: ? one episode of coffee-ground emesis in the nursing facility. At the current time will hold tube feeding. Edging Machine Operator has been consulted 3. possible seizure history: At the current time will put patient on IV Keppra 1500 mg twice daily. Once patient can resume feeding through the G-tube will resume home medications. 4. Essential hypertension: We will continue to monitor. Once patient can reduce resume feeds we will restart her home metoprolol. If blood pressures are elevated will put as needed hydralazine 5. Ventilator dependent respiratory failure. Continue vent management 6. Dysphagia/PEG tube feeding, at this time we will hold PEG tube feeding secondary to possible GI bleed, will resume when cleared by residential program coordinator 7. Anoxic encephalopathy status post cardiac arrest after suicide attempt in 2009, 5. DVT and GI prophylaxis: SCDs, Protonix further treatment strategy will remain as per the clinical course. We will need to obtain We will need to obtain records from the patient's nursing facility. Patient's CODE STATUS is a DNR. Problems: Subjective 24 Hr Interval Summary Free Text/Dictation No acute event since admission Patient is vent dependent Awake but does not follow any commands Exam/Review of Systems Vital Signs Vitals Vital Signs Date Time Temp Pulse Resp B/P Pulse Ox O2 Delivery O2 Flow Rate FiO2 12/17/16 09:40 87 16 99 30 12/17/16 08:00 98.8 104/80 12/17/16 00:00 Mechanical Ventilator Intake and Output 12/16/16 12/16/16 12/17/16 15:00 23:00 07:00 Intake Total 960 ml Output Total 0 ml Balance 960 ml Exam General: The patient is lying the bed, not in acute distress. HEENT: Atraumatic, normocephalic. The pupils are equal and round . Poor dentition Neck: Trach in place Chest: Normal Lungs: Clear to auscultation bilaterally Heart: Normal S1-S2, Regular rhythm and rate. Abdomen: Soft , nontender, nondistended , bowel sounds are present. G-tube in place Extremities: Contracture flexion bilateral upper and lower extremity, with severe evidence of muscle wasting, no edema no cyanosis Neurologic: mental status is at his baseline,The patient is awake, Results Result Diagram: 12/17/16 0512/17/16 05 Results 24 hrs Laboratory Tests Test 12/16/16 20:50 12/16/16 21:39 12/16/16 22:27 12/16/16 22:55 White Blood Count 15.9 #H Red Blood Count 4.18 L Hemoglobin 11.2 L Hematocrit 34.7 L Mean Corpuscular Volume 83.0 Mean Corpuscular Hemoglobin 26.8 L Mean Corpuscular Hemoglobin Concent 32.3 Red Cell Distribution Width 14.5 Platelet Count 373 Mean Platelet Volume 10.5 H Neutrophils % 84.1 H Lymphocytes % 10.7 L Monocytes % 4.1 Eosinophils % 0.5 Basophils % 0.3 Nucleated Red Blood Cells % 0.0 Neutrophils # 13.4 H Lymphocytes # 1.7 Monocytes # 0.7 Eosinophils # 0.1 Basophils # 0.1 Nucleated Red Blood Cells # 0.0 Sodium Level 143 Potassium Level 3.2 L Chloride Level 97 Carbon Dioxide Level 34 H Anion Gap 15 Blood Urea Nitrogen 32 H Creatinine 0.83 Glucose Level 128 Lactic Acid Level 1.7 1.3 Calcium Level 9.8 Total Bilirubin 0.0 L Direct Bilirubin 0.00 Indirect Bilirubin 0.0 Aspartate Amino Transf (AST/SGOT) 34 Alanine Aminotransferase (ALT/SGPT) 27 Alkaline Phosphatase 103 Troponin I < 0.012 Total Protein 8.7 H Albumin 4.9 Globulin 3.80 H Albumin/Globulin Ratio 1.28 Lipase 189 Blood Gas Specimen Source Blood arterial Arterial Blood Date Drawn 12/16/2016 10:00:28 PM Arterial Blood pH (Temp corrected) 7.551 *H Arterial Blood pCO2 (Temp correct) 38.0 Arterial Blood pO2 (Temp corrected) 149.3 H Arterial Blood HCO3 32.6 H Arterial Blood Base Excess 9.6 H Arterial Blood Oxygen Saturation 98.7 H Zechariah Test N/A Arterial Blood Gas Puncture Site Right Radial Arterial Blood Carboxyhemoglobin 0.3 Arterial Blood Methemoglobin 0.3 Blood Gas A-a O2 Differential 92.2 H Oxyhemoglobin Percent 98.1 Total Hemoglobin 12.1 Blood Gas Temperature 37.0 Blood Gas Respiration Rate 14.0 Blood Gas Actual Respiration Rate 14 Blood Gas Modality VENT - AC FiO2 40.0 Blood Gas Tidal Volume 450.0 Blood Gas Low PEEP Setting 5.0 Blood Gas Critical Value Read Back Nba MILAN DO Blood Gas Notified Whom MG Blood Gas Notified Time 12/16/2016 10:07:14 PM Urine Color YELLOW Urine Clarity SLIGHTLY CLOUDY A Urine pH 9.0 Urine Specific [place] 1.017 Urine Ketones NEGATIVE Urine Nitrite NEGATIVE Urine Bilirubin NEGATIVE Urine Urobilinogen NEGATIVE Urine Leukocyte Esterase TRACE A Urine Microscopic RBC > 182 H Urine Microscopic WBC 12 H Urine Hemoglobin 3+ H Urine Glucose NEGATIVE Urine Total Protein 1+ H Test 12/17/16 02:14 12/17/16 05:21 12/17/16 07:00 Lactic Acid Level 2.4 H White Blood Count 8.7 # Red Blood Count 3.80 L Hemoglobin 9.9 L Hematocrit 32.6 L Mean Corpuscular Volume 85.8 Mean Corpuscular Hemoglobin 26.1 L Mean Corpuscular Hemoglobin Concent 30.4 L Red Cell Distribution Width 15.0 H Platelet Count 262 # Mean Platelet Volume 10.9 H Neutrophils % 68.3 Lymphocytes % 23.1 Monocytes % 5.5 Eosinophils % 2.1 Basophils % 0.5 Nucleated Red Blood Cells % 0.0 Neutrophils # 5.9 Lymphocytes # 2.0 Monocytes # 0.5 Eosinophils # 0.2 Basophils # 0.0 Nucleated Red Blood Cells # 0.0 Sodium Level 139 Potassium Level 3.4 L Chloride Level 105 Carbon Dioxide Level 28 Anion Gap 9 # Blood Urea Nitrogen 23 H Creatinine 0.77 Glucose Level 104 Calcium Level 9.1 Magnesium Level 2.9 H Total Bilirubin 0.2 Direct Bilirubin 0.00 Indirect Bilirubin 0.2 Aspartate Amino Transf (AST/SGOT) 36 Alanine Aminotransferase (ALT/SGPT) 25 Alkaline Phosphatase 81 Total Protein 7.5 # Albumin 4.1 Globulin 3.40 H Albumin/Globulin Ratio 1.20 Blood Gas Specimen Source Blood arterial Arterial Blood Date Drawn 12/17/2016 7:10:58 AM Arterial Blood pH (Temp corrected) 7.566 *H Arterial Blood pCO2 (Temp correct) 27.3 L Arterial Blood pO2 (Temp corrected) 59.3 L Arterial Blood HCO3 24.2 Arterial Blood Base Excess 2.7 Arterial Blood Oxygen Saturation 92.5 L Zechariah Test ACCEPTAB Arterial Blood Gas Puncture Site Right Radial Arterial Blood Carboxyhemoglobin 0.3 Arterial Blood Methemoglobin 0.1 Blood Gas A-a O2 Differential 122.5 H Oxyhemoglobin Percent 92.1 L Total Hemoglobin 10.2 L Blood Gas Temperature 37.0 Blood Gas Respiration Rate 16.0 Blood Gas Actual Respiration Rate 17 Blood Gas Modality VENT - AC FiO2 30.0 Blood Gas Tidal Volume 450.0 Blood Gas Low PEEP Setting 5.0 Blood Gas Critical Value Read Back Fred FUENTES RN Blood Gas Notified Whom JLD Blood Gas Notified Time 12/17/2016 8:09:06 AM Medications Medications Current Medications Sodium Chloride (NS) 1,000 ml @ 80 mls/hr [id number] IV Last administered on 12/17 01:09; Admin Dose 80 MLS/HR; Start 12/16/16 at 23:31 Acetaminophen (Tylenol Supp) 650 mg Q6H PRN [place] PAIN LEVEL 1-3 OR FEVER; Start 12/17/16 at 00:00 Pantoprazole 40 mg 40 mg DAILY@06 IV Last administered on 12/17/16 05:20; Admin Dose 40 MG; Start 12/17/16 at 06:00 Levetiracetam 100 ml @ 400 mls/hr Q12 IVPB Last administered on 12/17/16 08: 45; Admin Dose 400 MLS/HR; Start 12/17/16 at 09:00 Piperacillin Sod/ Tazobactam Sod (Zosyn 3.375gm/ 100 ml (Pmx)) 100 ml @ 200 mls /hr Q6 IVPB Last administered on 12/17/16 05:20; Admin Dose 200 MLS/HR; Start 12/17/16 at 06:00 SULEMAN PATTERSON MD Dec 17, 2016 11:07
--- NOTE | 2016-12-17 11:23 | CONS ---
Date/Time of Note Date/Time of Note DATE: 12/17/16 TIME: 11:21 Assessment/Plan Assessment/Plan Chief Complaint/Hosp Course Patient reports readmitted for coffee-ground emesis and rectal bleeding. He is noncommunicative and lying comfortably in bed Temperature 98.8 pulse 87 respirations 16 blood pressure 104/80 saturation 99 on 30% WBC 8.7 H&H 9.9 and 32.6 platelets 262 no shift BUN [address] abdomen and pelvis revealed mild by basilar atelectasis nonobstructive bilateral renal calculi no evidence for appendicitis mild diffuse rectal thickening suggestive of proctitis Indwelling's: Trach PEG Antimicrobials: Vancomycin, Zosyn PHYSICAL EXAMINATION: GENERAL: Chronically ill-appearing, middle-aged, vegetative man who is in no distress. HEENT: Head atraumatic, normocephalic. Sclerae anicteric. Buccal mucosa dry. NECK: Supple. CHEST: Rise symmetrical. Breath sounds diminished to bases. HEART: S1, S2. ABDOMEN: Soft. Bowel tones hypoactive. EXTREMITIES: No cyanosis. ASSESSMENT: 1. Systemic inflammatory response syndrome with leukocytosis, possibly reactive. 2. GI bleeding 3. Chronic respiratory failure 4. History of seizure disorder. 5. Persistent vegetative state. 6. Anemia 7. Possible UTI PLAN: Hemodynamically stable, pending cultures, continue vent support per pulmonary, follow GI recommendations, transfuse as needed Discussed with RN Problems: Consultation Date/Type/Reason Admit Date/Time Dec 16, 2016 at 22:27 Initial Consult Date Type of Consultation: ID Exam/Review of Systems Vital Signs Vitals Vital Signs Date Time Temp Pulse Resp B/P Pulse Ox O2 Delivery O2 Flow Rate FiO2 12/17/16 11:06 85 16 100 30 12/17/16 08:00 98.8 104/80 12/17/16 00:00 Mechanical Ventilator Intake and Output 12/16/16 12/16/16 12/17/16 15:00 23:00 07:00 Intake Total 960 ml Output Total 0 ml Balance 960 ml Results Result Diagram: 12/17/16 0521 12/17/16 0521 Results 24 hrs Laboratory Tests Test 12/16/16 20:50 12/16/16 21:39 12/16/16 22:27 12/16/16 22:55 White Blood Count 15.9 #H Red Blood Count 4.18 L Hemoglobin 11.2 L Hematocrit 34.7 L Mean Corpuscular Volume 83.0 Mean Corpuscular Hemoglobin 26.8 L Mean Corpuscular Hemoglobin Concent 32.3 Red Cell Distribution Width 14.5 Platelet Count 373 Mean Platelet Volume 10.5 H Neutrophils % 84.1 H Lymphocytes % 10.7 L Monocytes % 4.1 Eosinophils % 0.5 Basophils % 0.3 Nucleated Red Blood Cells % 0.0 Neutrophils # 13.4 H Lymphocytes # 1.7 Monocytes # 0.7 Eosinophils # 0.1 Basophils # 0.1 Nucleated Red Blood Cells # 0.0 Sodium Level 143 Potassium Level 3.2 L Chloride Level 97 Carbon Dioxide Level 34 H Anion Gap 15 Blood Urea Nitrogen 32 H Creatinine 0.83 Glucose Level 128 Lactic Acid Level 1.7 1.3 Calcium Level 9.8 Total Bilirubin 0.0 L Direct Bilirubin 0.00 Indirect Bilirubin 0.0 Aspartate Amino Transf (AST/SGOT) 34 Alanine Aminotransferase (ALT/SGPT) 27 Alkaline Phosphatase 103 Troponin I < 0.012 Total Protein 8.7 H Albumin 4.9 Globulin 3.80 H Albumin/Globulin Ratio 1.28 Lipase 189 Blood Gas Specimen Source Blood arterial Arterial Blood Date Drawn 12/16/2016 10:00:28 PM Arterial Blood pH (Temp corrected) 7.551 *H Arterial Blood pCO2 (Temp correct) 38.0 Arterial Blood pO2 (Temp corrected) 149.3 H Arterial Blood HCO3 32.6 H Arterial Blood Base Excess 9.6 H Arterial Blood Oxygen Saturation 98.7 H Zechariah Test N/A Arterial Blood Gas Puncture Site Right Radial Arterial Blood Carboxyhemoglobin 0.3 Arterial Blood Methemoglobin 0.3 Blood Gas A-a O2 Differential 92.2 H Oxyhemoglobin Percent 98.1 Total Hemoglobin 12.1 Blood Gas Temperature 37.0 Blood Gas Respiration Rate 14.0 Blood Gas Actual Respiration Rate 14 Blood Gas Modality VENT - AC FiO2 40.0 Blood Gas Tidal Volume 450.0 Blood Gas Low PEEP Setting 5.0 Blood Gas Critical Value Read Back Nba MILAN DO Blood Gas Notified Whom MG Blood Gas Notified Time 12/16/2016 10:07:14 PM Urine Color YELLOW Urine Clarity SLIGHTLY CLOUDY A Urine pH 9.0 Urine Specific [place] 1.017 Urine Ketones NEGATIVE Urine Nitrite NEGATIVE Urine Bilirubin NEGATIVE Urine Urobilinogen NEGATIVE Urine Leukocyte Esterase TRACE A Urine Microscopic RBC > 182 H Urine Microscopic WBC 12 H Urine Hemoglobin 3+ H Urine Glucose NEGATIVE Urine Total Protein 1+ H Test 12/17/16 02:14 12/17/16 05:21 12/17/16 07:00 Lactic Acid Level 2.4 H White Blood Count 8.7 # Red Blood Count 3.80 L Hemoglobin 9.9 L Hematocrit 32.6 L Mean Corpuscular Volume 85.8 Mean Corpuscular Hemoglobin 26.1 L Mean Corpuscular Hemoglobin Concent 30.4 L Red Cell Distribution Width 15.0 H Platelet Count 262 # Mean Platelet Volume 10.9 H Neutrophils % 68.3 Lymphocytes % 23.1 Monocytes % 5.5 Eosinophils % 2.1 Basophils % 0.5 Nucleated Red Blood Cells % 0.0 Neutrophils # 5.9 Lymphocytes # 2.0 Monocytes # 0.5 Eosinophils # 0.2 Basophils # 0.0 Nucleated Red Blood Cells # 0.0 Sodium Level 139 Potassium Level 3.4 L Chloride Level 105 Carbon Dioxide Level 28 Anion Gap 9 # Blood Urea Nitrogen 23 H Creatinine 0.77 Glucose Level 104 Calcium Level 9.1 Magnesium Level 2.9 H Total Bilirubin 0.2 Direct Bilirubin 0.00 Indirect Bilirubin 0.2 Aspartate Amino Transf (AST/SGOT) 36 Alanine Aminotransferase (ALT/SGPT) 25 Alkaline Phosphatase 81 Total Protein 7.5 # Albumin 4.1 Globulin 3.40 H Albumin/Globulin Ratio 1.20 Blood Gas Specimen Source Blood arterial Arterial Blood Date Drawn 12/17/2016 7:10:58 AM Arterial Blood pH (Temp corrected) 7.566 *H Arterial Blood pCO2 (Temp correct) 27.3 L Arterial Blood pO2 (Temp corrected) 59.3 L Arterial Blood HCO3 24.2 Arterial Blood Base Excess 2.7 Arterial Blood Oxygen Saturation 92.5 L Zechariah Test ACCEPTAB Arterial Blood Gas Puncture Site Right Radial Arterial Blood Carboxyhemoglobin 0.3 Arterial Blood Methemoglobin 0.1 Blood Gas A-a O2 Differential 122.5 H Oxyhemoglobin Percent 92.1 L Total Hemoglobin 10.2 L Blood Gas Temperature 37.0 Blood Gas Respiration Rate 16.0 Blood Gas Actual Respiration Rate 17 Blood Gas Modality VENT - AC FiO2 30.0 Blood Gas Tidal Volume 450.0 Blood Gas Low PEEP Setting 5.0 Blood Gas Critical Value Read Back T ALFREDO MOE Blood Gas Notified Whom LOUISA Blood Gas Notified Time 12/17/2016 8:09:06 AM Medications Medications Current Medications Sodium Chloride (NS) 1,000 ml @ 80 mls/hr [id number] IV Last administered on 12/17 01:09; Admin Dose 80 MLS/HR; Start 12/16/16 at 23:31 Acetaminophen (Tylenol Supp) 650 mg Q6H PRN [place] PAIN LEVEL 1-3 OR FEVER; Start 12/17/16 at 00:00 Pantoprazole 40 mg 40 mg DAILY@06 IV Last administered on 12/17/16 05:20; Admin Dose 40 MG; Start 12/17/16 at 06:00 Levetiracetam 100 ml @ 400 mls/hr Q12 IVPB Last administered on 12/17/16 08: 45; Admin Dose 400 MLS/HR; Start 12/17/16 at 09:00 Piperacillin Sod/ Tazobactam Sod 100 ml @ 200 mls/hr Q6 IVPB Last administered on 12/17/16 05:20; Admin Dose 200 MLS/HR; Start 12/17/16 at 06:00 Vancomycin HCl/ Sodium Chloride (Vancocin/NS) 150 ml @ 75 mls/hr Q12H IVPB ; Start 12/17/16 at 13:00 Miscellaneous Information (*Rx Drug Level Order Reminder*) VANCO TR LEVEL PRIOR... ONCE ONCE XX ; Start 12/18/16 at 12:00; Stop 12/18/16 at 12:01 YURY YOON NP Dec 17, 2016 11:23
--- NOTE | 2016-12-17 11:50 | CONS ---
Date/Time of Note Date/Time of Note DATE: 12/17/16 TIME: 11:45 Assessment/Plan Assessment/Plan Additional Assessment/Plan Assessment 1. Vent dependent respiratory failure 2. Chronic encephalopathy 3. Dysphagia with G-tube 4. Possible GI bleed although currently stable 5. Seizure disorder Plan 1. Continue broad-spectrum antibiotics consider de-escalation soon 2. Continue tube feeding 3. Continue wound care 4. Transfer back to assisted facility tomorrow if stable. Consultation Date/Type/Reason Admit Date/Time Dec 16, 2016 at 22:27 Date of Consultation: Dec 17, 2016 Type of Consultation: Pulmonary Hx of Present Illness 46-year-old gentleman with chronic encephalopathy, vent dependent respiratory failure, dysphagia with G-tube. Transferred from assisted facility yesterday for cysts and change in mental status. For further details are available. Patient currently remains hemodynamically stable. He has a history of multiple admissions to the hospital. Per chart there appears to be one episode of possible coffee-ground emesis. Currently he has no evidence of acute GI bleed. Past Medical History Chronic respiratory failure on mechanical ventilation Anoxic encephalopathy Dysphagia with G-tube Recurrent sepsis Past Surgical History Tracheostomy placement G-tube placement Social History Smoking Status: Never smoker Exam/Review of Systems Vital Signs Vitals Vital Signs Date Time Temp Pulse Resp B/P Pulse Ox O2 Delivery O2 Flow Rate FiO2 12/17/16 11:06 85 16 100 30 12/17/16 10:00 113/85 12/17/16 08:00 98.8 12/17/16 00:00 Mechanical Ventilator Intake and Output 12/16/16 12/16/16 12/17/16 15:00 23:00 07:00 Intake Total 1040 ml Output Total 0 ml Balance 1040 ml Exam PHYSICAL EXAMINATION GENERAL: Chronically ill-appearing gentleman on mechanical ventilation tracheostomy VITAL SIGNS: see below. HEENT: Pupils equal, round, and reactive to light. Tracheostomy site clean and intact. CARDIAC: S1-S2 no added sounds or movements CHEST: Diminished air entry bilaterally. ABDOMEN: Mildly distended. Bowel sounds present no guarding or rebound EXTREMITIES: No cyanosis, clubbing edema +1 NEUROLOGIC: Generalized weakness contractures Results CT abdomen Possible proctitis no evidence of pulmonary infiltrates. Result Diagram: 12/17/16 0521 12/17/16 0521 Results 24 hrs Laboratory Tests Test 12/16/16 20:50 12/16/16 21:39 12/16/16 22:27 12/16/16 22:55 White Blood Count 15.9 #H Red Blood Count 4.18 L Hemoglobin 11.2 L Hematocrit 34.7 L Mean Corpuscular Volume 83.0 Mean Corpuscular Hemoglobin 26.8 L Mean Corpuscular Hemoglobin Concent 32.3 Red Cell Distribution Width 14.5 Platelet Count 373 Mean Platelet Volume 10.5 H Neutrophils % 84.1 H Lymphocytes % 10.7 L Monocytes % 4.1 Eosinophils % 0.5 Basophils % 0.3 Nucleated Red Blood Cells % 0.0 Neutrophils # 13.4 H Lymphocytes # 1.7 Monocytes # 0.7 Eosinophils # 0.1 Basophils # 0.1 Nucleated Red Blood Cells # 0.0 Sodium Level 143 Potassium Level 3.2 L Chloride Level 97 Carbon Dioxide Level 34 H Anion Gap 15 Blood Urea Nitrogen 32 H Creatinine 0.83 Glucose Level 128 Lactic Acid Level 1.7 1.3 Calcium Level 9.8 Total Bilirubin 0.0 L Direct Bilirubin 0.00 Indirect Bilirubin 0.0 Aspartate Amino Transf (AST/SGOT) 34 Alanine Aminotransferase (ALT/SGPT) 27 Alkaline Phosphatase 103 Troponin I < 0.012 Total Protein 8.7 H Albumin 4.9 Globulin 3.80 H Albumin/Globulin Ratio 1.28 Lipase 189 Blood Gas Specimen Source Blood arterial Arterial Blood Date Drawn 12/16/2016 10:00:28 PM Arterial Blood pH (Temp corrected) 7.551 *H Arterial Blood pCO2 (Temp correct) 38.0 Arterial Blood pO2 (Temp corrected) 149.3 H Arterial Blood HCO3 32.6 H Arterial Blood Base Excess 9.6 H Arterial Blood Oxygen Saturation 98.7 H Zechariah Test N/A Arterial Blood Gas Puncture Site Right Radial Arterial Blood Carboxyhemoglobin 0.3 Arterial Blood Methemoglobin 0.3 Blood Gas A-a O2 Differential 92.2 H Oxyhemoglobin Percent 98.1 Total Hemoglobin 12.1 Blood Gas Temperature 37.0 Blood Gas Respiration Rate 14.0 Blood Gas Actual Respiration Rate 14 Blood Gas Modality VENT - AC FiO2 40.0 Blood Gas Tidal Volume 450.0 Blood Gas Low PEEP Setting 5.0 Blood Gas Critical Value Read Back Nba MILAN DO Blood Gas Notified Whom MG Blood Gas Notified Time 12/16/2016 10:07:14 PM Urine Color YELLOW Urine Clarity SLIGHTLY CLOUDY A Urine pH 9.0 Urine Specific [place] 1.017 Urine Ketones NEGATIVE Urine Nitrite NEGATIVE Urine Bilirubin NEGATIVE Urine Urobilinogen NEGATIVE Urine Leukocyte Esterase TRACE A Urine Microscopic RBC > 182 H Urine Microscopic WBC 12 H Urine Hemoglobin 3+ H Urine Glucose NEGATIVE Urine Total Protein 1+ H Test 12/17/16 02:14 12/17/16 05:21 12/17/16 07:00 Lactic Acid Level 2.4 H White Blood Count 8.7 # Red Blood Count 3.80 L Hemoglobin 9.9 L Hematocrit 32.6 L Mean Corpuscular Volume 85.8 Mean Corpuscular Hemoglobin 26.1 L Mean Corpuscular Hemoglobin Concent 30.4 L Red Cell Distribution Width 15.0 H Platelet Count 262 # Mean Platelet Volume 10.9 H Neutrophils % 68.3 Lymphocytes % 23.1 Monocytes % 5.5 Eosinophils % 2.1 Basophils % 0.5 Nucleated Red Blood Cells % 0.0 Neutrophils # 5.9 Lymphocytes # 2.0 Monocytes # 0.5 Eosinophils # 0.2 Basophils # 0.0 Nucleated Red Blood Cells # 0.0 Sodium Level 139 Potassium Level 3.4 L Chloride Level 105 Carbon Dioxide Level 28 Anion Gap 9 # Blood Urea Nitrogen 23 H Creatinine 0.77 Glucose Level 104 Calcium Level 9.1 Magnesium Level 2.9 H Total Bilirubin 0.2 Direct Bilirubin 0.00 Indirect Bilirubin 0.2 Aspartate Amino Transf (AST/SGOT) 36 Alanine Aminotransferase (ALT/SGPT) 25 Alkaline Phosphatase 81 Total Protein 7.5 # Albumin 4.1 Globulin 3.40 H Albumin/Globulin Ratio 1.20 Blood Gas Specimen Source Blood arterial Arterial Blood Date Drawn 12/17/2016 7:10:58 AM Arterial Blood pH (Temp corrected) 7.566 *H Arterial Blood pCO2 (Temp correct) 27.3 L Arterial Blood pO2 (Temp corrected) 59.3 L Arterial Blood HCO3 24.2 Arterial Blood Base Excess 2.7 Arterial Blood Oxygen Saturation 92.5 L Zechariah Test ACCEPTAB Arterial Blood Gas Puncture Site Right Radial Arterial Blood Carboxyhemoglobin 0.3 Arterial Blood Methemoglobin 0.1 Blood Gas A-a O2 Differential 122.5 H Oxyhemoglobin Percent 92.1 L Total Hemoglobin 10.2 L Blood Gas Temperature 37.0 Blood Gas Respiration Rate 16.0 Blood Gas Actual Respiration Rate 17 Blood Gas Modality VENT - AC FiO2 30.0 Blood Gas Tidal Volume 450.0 Blood Gas Low PEEP Setting 5.0 Blood Gas Critical Value Read Back T ALFREDO MOE Blood Gas Notified Whom JLD Blood Gas Notified Time 12/17/2016 8:09:06 AM Medications Medications Current Medications Sodium Chloride (NS) 1,000 ml @ 80 mls/hr [id number] IV Last administered on 12/17 01:09; Admin Dose 80 MLS/HR; Start 12/16/16 at 23:31 Acetaminophen (Tylenol Supp) 650 mg Q6H PRN [place] PAIN LEVEL 1-3 OR FEVER; Start 12/17/16 at 00:00 Pantoprazole 40 mg 40 mg DAILY@06 IV Last administered on 12/17/16 05:20; Admin Dose 40 MG; Start 12/17/16 at 06:00 Levetiracetam 100 ml @ 400 mls/hr Q12 IVPB Last administered on 12/17/16 08: 45; Admin Dose 400 MLS/HR; Start 12/17/16 at 09:00 Piperacillin Sod/ Tazobactam Sod 100 ml @ 200 mls/hr Q6 IVPB Last administered on 12/17/16 05:20; Admin Dose 200 MLS/HR; Start 12/17/16 at 06:00 Vancomycin HCl/ Sodium Chloride (Vancocin/NS) 150 ml @ 75 mls/hr Q12H IVPB ; Start 12/17/16 at 13:00 Miscellaneous Information (*Rx Drug Level Order Reminder*) VANCO TR LEVEL PRIOR... ONCE ONCE XX ; Start 12/18/16 at 12:00; Stop 12/18/16 at 12:01 [facility]ON [facility], [facility] Dec 17, 2016 11:50
[2016-12-17] MEDS: VANCOMYCIN 750 MG in SOD CHLORIDE 0.9% 150 ML IVPB SCH (13:37)
[2016-12-17] MEDS ORDERED: ETOMIDATE 20 MG INJ ONE (20:01)
[2016-12-17] MEDS ORDERED: LIDOCAINE 2% (SDV) 5 ML INJ ONE (20:13)
--- NOTE | 2016-12-17 21:03 | CONS ---
Date/Time of Note Date/Time of Note DATE: 12/17/16 TIME: 20:57 Assessment/Plan Assessment/Plan Additional Assessment/Plan Assessment: * GI bleeding/coffee-ground emesis * Rule out GERD/peptic ulcer disease versus others * Anoxic encephalopathy * Ventilator dependent respiratory failure * Gastrostomy tube dependent * Seizure disorder * Frequent UTIs * Contractures Plan: * EGD today * Further recommendation of the pending patient's clinical course as well as her findings . Consultation Date/Type/Reason Admit Date/Time Dec 16, 2016 at 22:27 Date of Consultation: Dec 17, 2016 Type of Consultation: GI Reason for Consultation * Gastrointestinal bleeding Hx of Present Illness 46-year-old male with anoxic encephalopathy post suicide attempt in 1999. The patient has had repeated hospitalizations multiple complications. On this occasion the patient is hospitalized after noticing coffee-ground emesis. The patient is ventilator and gastrostomy tube dependent. Patient is contracted and unable to provide any information. His hemoglobin dropped significantly while in the hospital and for this reason endoscopic evaluation appears to be warranted. Not obtainable Past Medical History * Anoxic encephalopathy * Ventilator dependent respiratory failure * Gastrostomy tube dependent * Seizure disorder * Frequent UTIs * Contractures Past Surgical History * Tracheostomy * Gastrostomy Family History Significant Family History: no pertinent family hx Social History Alcohol Use: none Smoking Status: Never smoker Drug Use: none Exam/Review of Systems Vital Signs Vitals Vital Signs Date Time Temp Pulse Resp B/P Pulse Ox O2 Delivery O2 Flow Rate FiO2 12/17/16 18:00 77 16 98/77 100 Mechanical Ventilator 12/17/16 17:07 30 12/17/16 12:00 98.0 Intake and Output 12/16/16 12/16/16 12/17/16 15:00 23:00 07:00 Intake Total 1040 ml Output Total 0 ml Balance 1040 ml Exam Constitutional: other (Awake not responsive) Head: normocephalic Neck: other (Tracheostomy in place), supple Respiratory: clear to auscultation Cardiovascular: regular rate and rhythm Gastrointestinal: bowel sounds, other (Gastrostomy tube in place), soft, No mass Results Result Diagram: 12/17/16 0521 12/17/16 0521 Results 24 hrs Laboratory Tests Test 12/16/16 21:39 12/16/16 22:27 12/16/16 22:55 12/17/16 02:14 Blood Gas Specimen Source Blood arterial Arterial Blood Date Drawn 12/16/2016 10:00:28 PM Arterial Blood pH (Temp corrected) 7.551 *H Arterial Blood pCO2 (Temp correct) 38.0 Arterial Blood pO2 (Temp corrected) 149.3 H Arterial Blood HCO3 32.6 H Arterial Blood Base Excess 9.6 H Arterial Blood Oxygen Saturation 98.7 H Zechariah Test N/A Arterial Blood Gas Puncture Site Right Radial Arterial Blood Carboxyhemoglobin 0.3 Arterial Blood Methemoglobin 0.3 Blood Gas A-a O2 Differential 92.2 H Oxyhemoglobin Percent 98.1 Total Hemoglobin 12.1 Blood Gas Temperature 37.0 Blood Gas Respiration Rate 14.0 Blood Gas Actual Respiration Rate 14 Blood Gas Modality VENT - AC FiO2 40.0 Blood Gas Tidal Volume 450.0 Blood Gas Low PEEP Setting 5.0 Blood Gas Critical Value Read Back Nba MILAN DO Blood Gas Notified Whom MG Blood Gas Notified Time 12/16/2016 10:07:14 PM Urine Color YELLOW Urine Clarity SLIGHTLY CLOUDY A Urine pH 9.0 Urine Specific [place] 1.017 Urine Ketones NEGATIVE Urine Nitrite NEGATIVE Urine Bilirubin NEGATIVE Urine Urobilinogen NEGATIVE Urine Leukocyte Esterase TRACE A Urine Microscopic RBC > 182 H Urine Microscopic WBC 12 H Urine Hemoglobin 3+ H Urine Glucose NEGATIVE Urine Total Protein 1+ H Lactic Acid Level 1.3 2.4 H Test 12/17/16 05:21 12/17/16 07:00 White Blood Count 8.7 # Red Blood Count 3.80 L Hemoglobin 9.9 L Hematocrit 32.6 L Mean Corpuscular Volume 85.8 Mean Corpuscular Hemoglobin 26.1 L Mean Corpuscular Hemoglobin Concent 30.4 L Red Cell Distribution Width 15.0 H Platelet Count 262 # Mean Platelet Volume 10.9 H Neutrophils % 68.3 Lymphocytes % 23.1 Monocytes % 5.5 Eosinophils % 2.1 Basophils % 0.5 Nucleated Red Blood Cells % 0.0 Neutrophils # 5.9 Lymphocytes # 2.0 Monocytes # 0.5 Eosinophils # 0.2 Basophils # 0.0 Nucleated Red Blood Cells # 0.0 Sodium Level 139 Potassium Level 3.4 L Chloride Level 105 Carbon Dioxide Level 28 Anion Gap 9 # Blood Urea Nitrogen 23 H Creatinine 0.77 Glucose Level 104 Calcium Level 9.1 Magnesium Level 2.9 H Total Bilirubin 0.2 Direct Bilirubin 0.00 Indirect Bilirubin 0.2 Aspartate Amino Transf (AST/SGOT) 36 Alanine Aminotransferase (ALT/SGPT) 25 Alkaline Phosphatase 81 Total Protein 7.5 # Albumin 4.1 Globulin 3.40 H Albumin/Globulin Ratio 1.20 Blood Gas Specimen Source Blood arterial Arterial Blood Date Drawn 12/17/2016 7:10:58 AM Arterial Blood pH (Temp corrected) 7.566 *H Arterial Blood pCO2 (Temp correct) 27.3 L Arterial Blood pO2 (Temp corrected) 59.3 L Arterial Blood HCO3 24.2 Arterial Blood Base Excess 2.7 Arterial Blood Oxygen Saturation 92.5 L Zechariah Test ACCEPTAB Arterial Blood Gas Puncture Site Right Radial Arterial Blood Carboxyhemoglobin 0.3 Arterial Blood Methemoglobin 0.1 Blood Gas A-a O2 Differential 122.5 H Oxyhemoglobin Percent 92.1 L Total Hemoglobin 10.2 L Blood Gas Temperature 37.0 Blood Gas Respiration Rate 16.0 Blood Gas Actual Respiration Rate 17 Blood Gas Modality VENT - AC FiO2 30.0 Blood Gas Tidal Volume 450.0 Blood Gas Low PEEP Setting 5.0 Blood Gas Critical Value Read Back Fred FUENTES RN Blood Gas Notified Whom [place] Blood Gas Notified Time 12/17/2016 8:09:06 AM Medications Medications Current Medications Sodium Chloride (NS) 1,000 ml @ 80 mls/hr [id number] IV Last administered on 12/17 15:35; Admin Dose 80 MLS/HR; Start 12/16/16 at 23:31 Acetaminophen 650 mg 650 mg Q6H PRN [place] PAIN LEVEL 1-3 OR FEVER; Start 12/17/16 at 00:00 Levetiracetam 100 ml @ 400 mls/hr Q12 IVPB Last administered on 12/17/16 08: 45; Admin Dose 400 MLS/HR; Start 12/17/16 at 09:00 Piperacillin Sod/ Tazobactam Sod 100 ml @ 200 mls/hr Q6 IVPB Last administered on 12/17/16 17:56; Admin Dose 200 MLS/HR; Start 12/17/16 at 06:00 Vancomycin HCl/ Sodium Chloride (Vancocin/NS) 150 ml @ 75 mls/hr Q12H IVPB Last administered on 12/17/16 13:37; Admin Dose 75 MLS/HR; Start 12/17/16 at 13 :00 Miscellaneous Information (*Rx Drug Level Order Reminder*) VANCO TR LEVEL PRIOR... ONCE ONCE XX ; Start 12/18/16 at 12:00; Stop 12/18/16 at 12:01 Pantoprazole (Protonix Iv) 40 mg BID@06,18 IV ; Start 12/17/16 at 21:00 Metoclopramide HCl (Reglan) 10 mg Q6 IV ; Start 12/17/16 at 21:00 SHAYY DAVID MD Dec 17, 2016 21:03
--- NOTE | 2016-12-17 21:06 | OPR ---
Date/Time of Note Date/Time of Note DATE: 12/17/16 TIME: 21:03 Operative Report Preoperative Diagnosis * GI bleeding Postoperative Diagnosis Impression: * Severe ulcerated esophagitis * Hiatal hernia * Gastrostomy tube in place Plan: * PPI twice daily i.e. Protonix 40 mg twice daily * Add Reglan 10 mg every 6 hours * Monitor H&H and transfuse for hemoglobin less than 7.5 * Restart feedings . Operation/Procedure Performed * EGD Surgeon: SHAYY DAVID MD Anesthesia: MAC Estimated Blood Loss: none Specimens * None Grafts/Implants * None Complications: None SHAYY DAVID MD Dec 17, 2016 21:06
[2016-12-17] MEDS: METOCLOPRAMIDE 10 MG INJ IV SCH ×2 (21:09→23:45)
[2016-12-17] MEDS: PANTOPRAZOLE 40 MG INJ IV SCH (21:09)
[2016-12-18] VITALS (24 sets, daily range): BP systolic 101–145; BP diastolic 68–75; PULSE 65–80; RESP 15–46
[2016-12-18] MEDS: SOD CHLORIDE 0.9% 1,000 ML IV SCH ×2 (00:31→15:00)
[2016-12-18] MEDS: VANCOMYCIN 750 MG in SOD CHLORIDE 0.9% 150 ML IVPB SCH (02:14)
[2016-12-18] MEDS: METOCLOPRAMIDE 10 MG INJ IV SCH ×3 (06:00→18:44)
[2016-12-18] MEDS: PIPER-TAZO 3.375 GM IV (PMX) 100 ML IVPB SCH ×3 (06:00→21:19)
[2016-12-18] MEDS: PANTOPRAZOLE 40 MG INJ IV SCH ×2 (06:00→18:44)
[2016-12-18] MEDS ORDERED: LIDOCAINE 1% (MPF) 5 ML VIAL SC SCH (08:30)
[2016-12-18] MEDS: LEVETIRACETAM 1500 MG (PMX) 100 ML IVPB SCH ×2 (09:00→21:11)
[2016-12-18] MEDS ORDERED: LIDOCAINE 1% (MPF) 5 ML VIAL SC ONE (09:30)
--- NOTE | 2016-12-18 10:32 | RADRPT ---
PROCEDURE: Chest 1 views. CLINICAL INDICATION: Shortness of breath. TECHNIQUE: AP views of the chest was obtained. COMPARISON: November 26, 2016 FINDINGS: The heart is large. The ostomy tube is stable and appears in grossly appropriate location. Mild inte rstitial prominence is seen in both lungs. Patchy right lower lung infiltrates, possibly combined sm all pleural effusion identified. Atelectasis versus minimal infiltrates are seen in the left lower lobe. The lungs are hypoinflated. Osseous structures are intact. IMPRESSION: Cardiomegaly . Mild interstitial prominence in both lungs. Interstitial prominence could be chronic. Patchy right lower lung infiltrates, possibly combined with small pleural effusion. Atelectasis versus mild infiltrates in the left lower lobe. Hypoinflated lungs. RPTAT: AA .Terrence Olmos MD, Date Time Electronically viewed and signed by .Terrence Olmos MD, MD on 12/18/2016 10:31 .P/
[2016-12-18 11:41] LABS: ADD SCAN DIFF NO
[2016-12-18 11:55] LABS: BASOPHILS % 0.4 % (0.0-2.0); EOSINOPHILS # 0.2 10^3/ul (0.0-0.5); EOSINOPHILS % 3.7 % (0.0-7.0); HEMATOCRIT 28.2 % (42.0-52.0); HEMOGLOBIN 8.5 g/dl (14.0-18.0); LYMPHOCYTES # 1.2 10^3/ul (0.8-2.9); LYMPHOCYTES % 22.4 % (15.0-51.0); MEAN CORPUSCULAR HEMOGLOBIN 25.9 pg (29.0-33.0); MEAN CORPUSCULAR HGB CONC 30.1 g/dl (32.0-37.0); MEAN PLATELET VOLUME 10.9 fl (7.4-10.4); MONOCYTE # 0.3 10^3/ul (0.3-0.9); MONOCYTES % 6.3 % (0.0-11.0); NEUTROPHIL # 3.6 10^3/ul (1.6-7.5); NEUTROPHILS % 66.6 % (39.0-77.0); PLATELET COUNT 215 10^3/UL (140-415); RED BLOOD COUNT 3.28 10^6/ul (4.70-6.10); RED CELL DISTRIBUTION WIDTH 14.9 % (11.5-14.5); WHITE BLOOD COUNT 5.4 10^3/ul (4.8-10.8)
--- NOTE | 2016-12-18 11:56 | CONS ---
Date/Time of Note Date/Time of Note DATE: 12/18/16 TIME: 11:54 Consult Date/Type/Reason Admit Date/Time Dec 16, 2016 at 22:27 Initial Consult Date 12/17/16 Type of Consultation: Pulmonary Subjective Patient comfortable no new events status post EGD findings noted Objective Vital Signs Date Time Temp Pulse Resp B/P Pulse Ox O2 Delivery O2 Flow Rate FiO2 12/18/16 08:30 70 12/18/16 08:01 98.0 20 112/75 99 12/18/16 07:50 30 12/18/16 00:00 Mechanical Ventilator Intake and Output 12/17/16 12/17/16 12/18/16 15:00 23:00 07:00 Intake Total 655 ml 775 ml 180 ml Balance 655 ml 775 ml 180 ml Exam PHYSICAL EXAMINATION GENERAL: Chronically ill-appearing gentleman comfortable at rest no acute distress VITAL SIGNS: see below. HEENT: Pupils equal, round, and reactive to light. Tracheostomy site clean and intact. CARDIAC: S1, S2, no added sounds or murmurs CHEST: Diminished air entry bilaterally. ABDOMEN: Mildly distended. Bowel sounds present no guarding or rebound EXTREMITIES: No cyanosis, clubbing edema +1 NEUROLOGIC: Generalized weakness Results/Medications Result Diagram: 12/17/1652012/17/16520 Medications Current Medications Sodium Chloride (NS) 1,000 ml @ 80 mls/hr [id number] IV Last administered on 12/18 00:31; Admin Dose 80 MLS/HR; Start 12/16/16 at 23:31 Acetaminophen 650 mg 650 mg Q6H PRN [place] PAIN LEVEL 1-3 OR FEVER; Start 12/17/16 at 00:00 Levetiracetam 100 ml @ 400 mls/hr Q12 IVPB Last administered on 12/17/16 21: 09; Admin Dose 400 MLS/HR; Start 12/17/16 at 09:00 Piperacillin Sod/ Tazobactam Sod 100 ml @ 200 mls/hr Q6 IVPB Last administered on 12/17/16 23:45; Admin Dose 200 MLS/HR; Start 12/17/16 at 06:00 Vancomycin HCl/ Sodium Chloride (Vancocin/NS) 150 ml @ 75 mls/hr Q12H IVPB Last administered on 12/18/16 02:14; Admin Dose 75 MLS/HR; Start 12/17/16 at 13 :00 Miscellaneous Information (*Rx Drug Level Order Reminder*) VANCO TR LEVEL PRIOR... ONCE ONCE XX ; Start 12/18/16 at 12:00; Stop 12/18/16 at 12:01 Pantoprazole (Protonix Iv) 40 mg BID@06,18 IV Last administered on 12/17/16 21 :09; Admin Dose 40 MG; Start 12/17/16 at 21:00 Metoclopramide HCl (Reglan) 10 mg Q6 IV Last administered on 12/17/16 23:45; Admin Dose 10 MG; Start 12/17/16 at 21:00 Assessment/Plan Chief Complaint/Hosp Course 1. Vent dependent respiratory failure 2. Chronic encephalopathy 3. Dysphagia with G-tube 4. Status post EGD findings noted 5. Seizure disorder Plan 1. Continue broad-spectrum antibiotics consider de-escalation soon 2. Continue tube feeding 3. Continue wound care 4. discharge planning okay from pulmonary standpoint 5. Continue PPI Problems: [facility] NEWTON MD, [facility] Dec 18, 2016 11:56
[2016-12-18 12:12] LABS: CREATININE 0.83 mg/dl (0.61-1.24); POTASSIUM 3.2 mmol/L (3.5-5.1)
--- NOTE | 2016-12-18 12:40 | CONS ---
Date/Time of Note Date/Time of Note DATE: 12/18/16 TIME: 12:38 Assessment/Plan Assessment/Plan Chief Complaint/Hosp Course No acute events, patient was transferred to telemetry, no fevers in no distress looks comfortable. Microbiology: Blood cultures since admission growing staph species, urine culture growing gram-negative rods, nares swab positive for MRSA Indwelling's: Trach PEG PHYSICAL EXAMINATION: GENERAL: Chronically ill-appearing, middle-aged, vegetative man who is in no distress. HEENT: Head atraumatic, normocephalic. Sclerae anicteric. Buccal mucosa dry. NECK: Supple. CHEST: Rise symmetrical. Breath sounds diminished to bases. HEART: S1, S2. ABDOMEN: Soft. Bowel tones hypoactive. EXTREMITIES: No cyanosis. ASSESSMENT: 1. Systemic inflammatory response syndrome with leukocytosis on admission 2. Status post GI bleeding 3. Chronic respiratory failure 4. Gram-negative rods UTI 5. Persistent vegetative state. 6. Anemia 7. Coag negative staph bacteremia likely contaminant PLAN: Stable, pending final cultures, continue antibiotics, repeat blood cultures, continue vent support per pulmonary, follow GI recommendations Discussed with RN Problems: Consultation Date/Type/Reason Admit Date/Time Dec 16, 2016 at 22:27 Type of Consultation: ID Exam/Review of Systems Vital Signs Vitals Vital Signs Date Time Temp Pulse Resp B/P Pulse Ox O2 Delivery O2 Flow Rate FiO2 12/18/16 12:30 98.0 87 18 118/71 98 12/18/16 07:50 30 12/18/16 00:00 Mechanical Ventilator Intake and Output 12/17/16 12/17/16 12/18/16 15:00 23:00 07:00 Intake Total 655 ml 775 ml 180 ml Balance 655 ml 775 ml 180 ml Results Result Diagram: 12/18/16 1121 12/18/16 1121 Results 24 hrs Laboratory Tests Test 12/18/16 11:21 White Blood Count 5.4 # Red Blood Count 3.28 L Hemoglobin 8.5 L Hematocrit 28.2 L Mean Corpuscular Volume 86.0 Mean Corpuscular Hemoglobin 25.9 L Mean Corpuscular Hemoglobin Concent 30.1 L Red Cell Distribution Width 14.9 H Platelet Count 215 Mean Platelet Volume 10.9 H Neutrophils % 66.6 Lymphocytes % 22.4 Monocytes % 6.3 Eosinophils % 3.7 Basophils % 0.4 Nucleated Red Blood Cells % 0.0 Neutrophils # 3.6 Lymphocytes # 1.2 Monocytes # 0.3 Eosinophils # 0.2 Basophils # 0.0 Nucleated Red Blood Cells # 0.0 Sodium Level 145 H Potassium Level 3.2 L Chloride Level 114 H Carbon Dioxide Level 23 Anion Gap 11 Blood Urea Nitrogen 14 # Creatinine 0.83 Glucose Level 91 Calcium Level 9.0 Medications Medications Current Medications Sodium Chloride (NS) 1,000 ml @ 80 mls/hr [id number] IV Last administered on 12/18 00:31; Admin Dose 80 MLS/HR; Start 12/16/16 at 23:31 Acetaminophen 650 mg 650 mg Q6H PRN [place] PAIN LEVEL 1-3 OR FEVER; Start 12/17/16 at 00:00 Levetiracetam (Keppra 1,500mg/ 100ml (Pmx)) 100 ml @ 400 mls/hr Q12 IVPB Last administered on 12/17/16 21:09; Admin Dose 400 MLS/HR; Start 12/17/16 at 09:00 Pantoprazole (Protonix Iv) 40 mg BID@06,18 IV Last administered on 12/17/16 21 :09; Admin Dose 40 MG; Start 12/17/16 at 21:00 Metoclopramide HCl (Reglan) 10 mg Q6 IV Last administered on 12/17/16 23:45; Admin Dose 10 MG; Start 12/17/16 at 21:00 YURY YOON NP Dec 18, 2016 12:40
--- NOTE | 2016-12-18 14:21 | RADRPT ---
PROCEDURE: Ultrasound guidance for placement of needle in right upper extremity vein. CLINICAL INDICATION: Venous access. TECHNIQUE: Limited sonography of the right upper extremity was performed. Ultrasound images were recorded and stored in the patient's medical record. COMPARISON: None. FINDINGS: The ultrasound images demonstrate a patent right upper extremity vein. The PICC line was inserted b y the PICC line nurse. IMPRESSION: 1. Ultrasound guidance for a needle placement in a right upper extremity vein. 2. The visualized right upper extremity vein is patent. RPTAT: QQ .Cale Ballard MD, MD Date Time Electronically viewed and signed by .Cale Ballard MD, MD on 12/18/2016 14:21 .R/
--- NOTE | 2016-12-18 14:46 | RADRPT ---
PROCEDURE: XR Chest. CLINICAL INDICATION: Check PICC line position. TECHNIQUE: Single frontal view. COMPARISON: 12/18/2016. 0756 hours. FINDINGS: There is a right arm PICC line with the tip in the cavoatrial junction region.. There is mild inter stitial disease bilaterally, unchanged. A tracheostomy tube is in satisfactory position. The heart is mildly enlarged. There is no pleural effusion. There is no pneumothorax. IMPRESSION: 1. Right arm PICC line tip in satisfactory position. 2. No other change from the prior study done earlier the same day. RPTAT: QQ .Cale Ballard MD, MD Date Time Electronically viewed and signed by .Cale Ballard MD, MD on 12/18/2016 14:46 .R/
--- NOTE | 2016-12-18 15:57 | PN ---
Date/Time of Note Date/Time of Note DATE: 12/18/16 TIME: 15:52 Assessment/Plan Lines/Catheters IV Cathe[facility] Type ([facility]): PICC Line Urinary Cath still in place: No Assessment/Plan Assessment/Plan Do Not Resuscitated 1. Genitourinary infection: Leukocytosis: Next secondary to urinary tract infection, signs of proctitis on the CT scan of the abdomen and pelvis. -Continue IV Vanco and zosyn. -Infectious disease doctor consulted -Follow-up urine and blood cultures. Continue IV fluid hydration. 2. coffee-ground emesis: ? one episode of coffee-ground emesis in the nursing facility. At the current time will hold tube feeding. Clinical Pharmacist has been consulted 3. possible seizure history: At the current time will put patient on IV Keppra 1500 mg twice daily. Once patient can resume feeding through the G-tube will resume home medications. 4. Essential hypertension: We will continue to monitor. Once patient can reduce resume feeds we will restart her home metoprolol. If blood pressures are elevated will put as needed hydralazine 5. Ventilator dependent respiratory failure. Continue vent management 6. Dysphagia/PEG tube feeding, at this time we will hold PEG tube feeding secondary to possible GI bleed, will resume when cleared by train attendant 7. Anoxic encephalopathy status post cardiac arrest after suicide attempt in 2009, 5. DVT and GI prophylaxis: SCDs, Protonix further treatment strategy will remain as per the clinical course. We will need to obtain Plan of care dw Dr Courtney/ staff. Subjective 24 Hr Interval Summary Free Text/Dictation We will need to obtain records from the patient's nursing facility. dw staff. Constitutional: requiring IVF, requiring O2 Exam/Review of Systems Vital Signs Vitals Vital Signs Date Time Temp Pulse Resp B/P Pulse Ox O2 Delivery O2 Flow Rate FiO2 12/18/16 12:54 70 12/18/16 12:30 98.0 18 118/71 98 12/18/16 07:50 30 12/18/16 00:00 Mechanical Ventilator Intake and Output 12/17/16 12/17/16 12/18/16 15:00 23:00 07:00 Intake Total 655 ml 775 ml 180 ml Balance 655 ml 775 ml 180 ml Exam Constitutional: alert Respiratory: clear to auscultation, normal air movement Cardiovascular: nl pulses, regular rate and rhythm Gastrointestinal: non-tender, soft Musculoskeletal: nl extremities to inspection Extremities: normal pulses Neurological: lethargic, unresponsive Results Result Diagram: 12/18/16 1121 12/18/16 1121 Results 24 hrs Laboratory Tests Test 12/18/16 11:21 White Blood Count 5.4 # Red Blood Count 3.28 L Hemoglobin 8.5 L Hematocrit 28.2 L Mean Corpuscular Volume 86.0 Mean Corpuscular Hemoglobin 25.9 L Mean Corpuscular Hemoglobin Concent 30.1 L Red Cell Distribution Width 14.9 H Platelet Count 215 Mean Platelet Volume 10.9 H Neutrophils % 66.6 Lymphocytes % 22.4 Monocytes % 6.3 Eosinophils % 3.7 Basophils % 0.4 Nucleated Red Blood Cells % 0.0 Neutrophils # 3.6 Lymphocytes # 1.2 Monocytes # 0.3 Eosinophils # 0.2 Basophils # 0.0 Nucleated Red Blood Cells # 0.0 Sodium Level 145 H Potassium Level 3.2 L Chloride Level 114 H Carbon Dioxide Level 23 Anion Gap 11 Blood Urea Nitrogen 14 # Creatinine 0.83 Glucose Level 91 Calcium Level 9.0 Medications Medications Current Medications Sodium Chloride (NS) 1,000 ml @ 80 mls/hr [id number] IV Last administered on 12/18 00:31; Admin Dose 80 MLS/HR; Start 12/16/16 at 23:31 Acetaminophen 650 mg 650 mg Q6H PRN [place] PAIN LEVEL 1-3 OR FEVER; Start 12/17/16 at 00:00 Levetiracetam (Keppra 1,500mg/ 100ml (Pmx)) 100 ml @ 400 mls/hr Q12 IVPB Last administered on 12/17/16 21:09; Admin Dose 400 MLS/HR; Start 12/17/16 at 09:00 Pantoprazole (Protonix Iv) 40 mg BID@06,18 IV Last administered on 12/17/16 21 :09; Admin Dose 40 MG; Start 12/17/16 at 21:00 Metoclopramide HCl 10 mg 10 mg Q6 IV Last administered on 12/17/16 23:45; Admin Dose 10 MG; Start 12/17/16 at 21:00 Piperacillin Sod/ Tazobactam Sod (Zosyn 3.375gm/ 100 ml (Pmx)) 100 ml @ 200 mls /hr Q8 IVPB ; Start 12/18/16 at 14:00 IV Flush (NS 10 ml) 10 ml PRN PRN IV IV PROTOCOL; Start 12/18/16 at 15:00 SHELLEY HERNANDEZ Dec 18, 2016 15:57
[2016-12-18] MEDS ORDERED: SOD CHLORIDE 0.9% 100 ML ONE (17:39)
[2016-12-19] VITALS (22 sets, daily range): BP systolic 114–137; BP diastolic 56–74; PULSE 62–91; RESP 16–21
[2016-12-19] MEDS: METOCLOPRAMIDE 10 MG INJ IV SCH ×4 (00:21→18:12)
[2016-12-19] MEDS: SOD CHLORIDE 0.9% 1,000 ML IV SCH ×2 (01:42→14:21)
[2016-12-19] MEDS: PIPER-TAZO 3.375 GM IV (PMX) 100 ML IVPB SCH ×2 (05:58→14:20)
[2016-12-19] MEDS: PANTOPRAZOLE 40 MG INJ IV SCH ×2 (05:58→18:12)
[2016-12-19 07:09] LABS: ADD SCAN DIFF NO
[2016-12-19 07:16] LABS: BASOPHILS % 0.4 % (0.0-2.0); EOSINOPHILS # 0.2 10^3/ul (0.0-0.5); EOSINOPHILS % 3.3 % (0.0-7.0); HEMOGLOBIN 7.4 g/dl (14.0-18.0); LYMPHOCYTES # 1.3 10^3/ul (0.8-2.9); LYMPHOCYTES % 26.3 % (15.0-51.0); MEAN CORPUSCULAR HEMOGLOBIN 26.5 pg (29.0-33.0); MEAN CORPUSCULAR HGB CONC 30.8 g/dl (32.0-37.0); MEAN PLATELET VOLUME 10.7 fl (7.4-10.4); MONOCYTE # 0.3 10^3/ul (0.3-0.9); MONOCYTES % 6.5 % (0.0-11.0); NEUTROPHIL # 3.1 10^3/ul (1.6-7.5); NEUTROPHILS % 63.1 % (39.0-77.0); PLATELET COUNT 204 10^3/UL (140-415); RED BLOOD COUNT 2.79 10^6/ul (4.70-6.10); RED CELL DISTRIBUTION WIDTH 14.6 % (11.5-14.5); WHITE BLOOD COUNT 4.9 10^3/ul (4.8-10.8)
[2016-12-19 07:43] LABS: CALCIUM 8.6 mg/dl (8.4-10.2); CREATININE 0.78 mg/dl (0.61-1.24)
[2016-12-19 07:51] LABS: POTASSIUM 2.8 mmol/L (3.5-5.1)
[2016-12-19] MEDS ORDERED: POTASSIUM CHLORIDE 250 ML IVPB ONE (08:30)
[2016-12-19] MEDS: LEVETIRACETAM 1500 MG (PMX) 100 ML IVPB SCH ×2 (09:16→21:06)
--- NOTE | 2016-12-19 11:23 | PN ---
Date/Time of Note Date/Time of Note DATE: 12/19/16 TIME: 11:15 Assessment/Plan VTE Prophylaxis VTE Prophylaxis Intervention: SCD's Lines/Catheters IV C[facility] Type (from [facility] PICC Line Central line still needed: Yes Urinary Cath still in place: No Assessment/Plan Assessment/Plan Assessment * Hypokalemia * Upper GI bleed EGD Severe ulcerated esophagitis Hiatal hernia Gastrostomy tube in place * Ventilator dependent respiratory failure managed by pulmonary * Chronic encephalopathy Plan * correct hypokalemia * resume tube feeding * continue present management * case discussed with Dr Hagen * Further orders will depend on clinical course Subjective 24 Hr Interval Summary Free Text/Dictation * Course reviewed with RN * Patient seen and examined * EGD Severe ulcerated esophagitis Hiatal hernia Gastrostomy tube in place Exam/Review of Systems Vital Signs Vitals Vital Signs Date Time Temp Pulse Resp B/P Pulse Ox O2 Delivery O2 Flow Rate FiO2 12/19/16 09:50 75 16 98 30 12/19/16 07:24 99.4 136/71 12/18/16 00:00 Mechanical Ventilator Intake and Output 12/18/16 12/18/16 12/19/16 15:00 23:00 07:00 Intake Total 200 ml 400 ml Balance 200 ml 400 ml Exam Constitutional: frail, non-verbal Neck: other (tracheostomy to ventilator) Respiratory: diminished breath sounds, normal air movement Cardiovascular: nl pulses, regular rate and rhythm Gastrointestinal: non-tender, other (g tube in place), soft Musculoskeletal: muscle weakness, other (contracture) Extremities: normal pulses Neurological: unresponsive Lymph: nl lymph nodes Results Result Diagram: 12/19/16 0630 12/19/16 0630 Results 24 hrs Laboratory Tests Test 12/18/16 11:21 12/19/16 06:30 White Blood Count 5.4 # 4.9 Red Blood Count 3.28 L 2.79 L Hemoglobin 8.5 L 7.4 L Hematocrit 28.2 L 24.0 L Mean Corpuscular Volume 86.0 86.0 Mean Corpuscular Hemoglobin 25.9 L 26.5 L Mean Corpuscular Hemoglobin Concent 30.1 L 30.8 L Red Cell Distribution Width 14.9 H 14.6 H Platelet Count 215 204 Mean Platelet Volume 10.9 H 10.7 H Neutrophils % 66.6 63.1 Lymphocytes % 22.4 26.3 Monocytes % 6.3 6.5 Eosinophils % 3.7 3.3 Basophils % 0.4 0.4 Nucleated Red Blood Cells % 0.0 0.0 Neutrophils # 3.6 3.1 Lymphocytes # 1.2 1.3 Monocytes # 0.3 0.3 Eosinophils # 0.2 0.2 Basophils # 0.0 0.0 Nucleated Red Blood Cells # 0.0 0.0 Sodium Level 145 H 144 Potassium Level 3.2 L 2.8 *L Chloride Level 114 H 114 H Carbon Dioxide Level 23 22 Anion Gap 11 11 Blood Urea Nitrogen 14 # 10 Creatinine 0.83 0.78 Glucose Level 91 92 Calcium Level 9.0 8.6 Medications Medications Current Medications Sodium Chloride (NS) 1,000 ml @ 80 mls/hr [id number] IV Last administered on 12/19 01:42; Admin Dose 80 MLS/HR; Start 12/16/16 at 23:31 Acetaminophen 650 mg 650 mg Q6H PRN [place] PAIN LEVEL 1-3 OR FEVER; Start 12/17/16 at 00:00 Levetiracetam (Keppra 1,500mg/ 100ml (Pmx)) 100 ml @ 400 mls/hr Q12 IVPB Last administered on 12/19/16 09:16; Admin Dose 400 MLS/HR; Start 12/17/16 at 09:00 Pantoprazole (Protonix Iv) 40 mg BID@06,18 IV Last administered on 12/19/16 05 :58; Admin Dose 40 MG; Start 12/17/16 at 21:00 Metoclopramide HCl 10 mg 10 mg Q6 IV Last administered on 12/19/16 05:58; Admin Dose 10 MG; Start 12/17/16 at 21:00 Piperacillin Sod/ Tazobactam Sod (Zosyn 3.375gm/ 100 ml (Pmx)) 100 ml @ 200 mls /hr Q8 IVPB Last administered on 12/19/16 05:58; Admin Dose 200 MLS/HR; Start 12/18/16 at 14:00 IV Flush 10 ml 10 ml PRN PRN IV IV PROTOCOL; Start 12/18/16 at 15:00 Potassium Chloride (KCl 40 MEQ/250 ML NS) 250 ml @ 62.5 mls/hr ONCE ONCE IVPB Last administered on 12/19/16t 09:14; Admin Dose 62.5 MLS/HR; Start 12/19/16 at 08:30; Stop 12/19/16 at 12:29 PRABHJOT DE LEON NP Dec 19, 2016 11:22
--- NOTE | 2016-12-19 14:37 | CONS ---
Date/Time of Note Date/Time of Note DATE: 12/19/16 TIME: 14:35 Assessment/Plan Assessment/Plan Chief Complaint/Hosp Course No acute events, looks comfortable, no fevers Microbiology: Blood cultures since admission growing staph species, urine culture growing gram-negative rods, nares swab positive for MRSA Indwelling's: Trach PEG PHYSICAL EXAMINATION: GENERAL: Chronically ill-appearing, middle-aged, vegetative man who is in no distress. HEENT: Head atraumatic, normocephalic. Sclerae anicteric. Buccal mucosa dry. NECK: Supple. CHEST: Rise symmetrical. Breath sounds diminished to bases. HEART: S1, S2. ABDOMEN: Soft. Bowel tones hypoactive. EXTREMITIES: No cyanosis. ASSESSMENT: 1. Systemic inflammatory response syndrome with leukocytosis on admission 2. Status post GI bleeding 3. Chronic respiratory failure 4. Gram-negative rods UTI 5. Persistent vegetative state. 6. Anemia 7. Coag negative staph bacteremia likely contaminant 6. MRSA nares colonization PLAN: Remains stable, change antibiotics to Bactrim, add Bactroban to nares, continue vent support per pulmonary, follow GI recommendations Discussed with RN Problems: Consultation Date/Type/Reason Admit Date/Time Dec 16, 2016 at 22:27 Type of Consultation: ID Exam/Review of Systems Vital Signs Vitals Vital Signs Date Time Temp Pulse Resp B/P Pulse Ox O2 Delivery O2 Flow Rate FiO2 12/19/16 13:21 76 16 96 30 12/19/16 11:15 98.1 114/56 12/18/16 00:00 Mechanical Ventilator Intake and Output 12/18/16 12/18/16 12/19/16 15:00 23:00 07:00 Intake Total 200 ml 400 ml Balance 200 ml 400 ml Results Result Diagram: 12/19/16 0630 12/19/16 0630 Results 24 hrs Laboratory Tests Test 12/19/16 06:30 White Blood Count 4.9 Red Blood Count 2.79 L Hemoglobin 7.4 L Hematocrit 24.0 L Mean Corpuscular Volume 86.0 Mean Corpuscular Hemoglobin 26.5 L Mean Corpuscular Hemoglobin Concent 30.8 L Red Cell Distribution Width 14.6 H Platelet Count 204 Mean Platelet Volume 10.7 H Neutrophils % 63.1 Lymphocytes % 26.3 Monocytes % 6.5 Eosinophils % 3.3 Basophils % 0.4 Nucleated Red Blood Cells % 0.0 Neutrophils # 3.1 Lymphocytes # 1.3 Monocytes # 0.3 Eosinophils # 0.2 Basophils # 0.0 Nucleated Red Blood Cells # 0.0 Sodium Level 144 Potassium Level 2.8 *L Chloride Level 114 H Carbon Dioxide Level 22 Anion Gap 11 Blood Urea Nitrogen 10 Creatinine 0.78 Glucose Level 92 Calcium Level 8.6 Medications Medications Current Medications Sodium Chloride (NS) 1,000 ml @ 80 mls/hr [id number] IV Last administered on 12/19 14:21; Admin Dose 80 MLS/HR; Start 12/16/16 at 23:31 Acetaminophen 650 mg 650 mg Q6H PRN [place] PAIN LEVEL 1-3 OR FEVER; Start 12/17/16 at 00:00 Levetiracetam (Keppra 1,500mg/ 100ml (Pmx)) 100 ml @ 400 mls/hr Q12 IVPB Last administered on 12/19/16 09:16; Admin Dose 400 MLS/HR; Start 12/17/16 at 09:00 Pantoprazole (Protonix Iv) 40 mg BID@06,18 IV Last administered on 12/19/16 05 :58; Admin Dose 40 MG; Start 12/17/16 at 21:00 Metoclopramide HCl 10 mg 10 mg Q6 IV Last administered on 12/19/16 12:51; Admin Dose 10 MG; Start 12/17/16 at 21:00 Piperacillin Sod/ Tazobactam Sod (Zosyn 3.375gm/ 100 ml (Pmx)) 100 ml @ 200 mls /hr Q8 IVPB Last administered on 12/19/16 14:20; Admin Dose 200 MLS/HR; Start 12/18/16 at 14:00 IV Flush (NS 10 ml) 10 ml PRN PRN IV IV PROTOCOL; Start 12/18/16 at 15:00 YURY YOON NP Dec 19, 2016 14:36
--- NOTE | 2016-12-19 14:51 | CONS ---
Date/Time of Note Date/Time of Note DATE: 12/19/16 TIME: 14:50 Consult Date/Type/Reason Admit Date/Time Dec 16, 2016 at 22:27 Initial Consult Date 12/17/16 Type of Consultation: Pulmonary Subjective Patient stable following endoscopy. No new events overnight. Objective Vital Signs Date Time Temp Pulse Resp B/P Pulse Ox O2 Delivery O2 Flow Rate FiO2 12/19/16 13:21 76 16 96 30 12/19/16 11:15 98.1 114/56 12/18/16 00:00 Mechanical Ventilator Intake and Output 12/18/16 12/18/16 12/19/16 15:00 23:00 07:00 Intake Total 200 ml 400 ml Balance 200 ml 400 ml Exam PHYSICAL EXAMINATION GENERAL: Chronically ill-appearing gentleman comfortable at rest no acute distress VITAL SIGNS: see below. HEENT: Pupils equal, round, and reactive to light. Tracheostomy site clean and intact. CARDIAC: S1, S2, no added sounds or murmurs CHEST: Diminished air entry bilaterally. ABDOMEN: Mildly distended. Bowel sounds present no guarding or rebound EXTREMITIES: No cyanosis, clubbing edema +1 NEUROLOGIC: Generalized weakness Results/Medications Result Diagram: 12/19/16 0630 12/19/16 0630 Results 24 hrs Laboratory Tests Test 12/19/16 06:30 White Blood Count 4.9 Red Blood Count 2.79 L Hemoglobin 7.4 L Hematocrit 24.0 L Mean Corpuscular Volume 86.0 Mean Corpuscular Hemoglobin 26.5 L Mean Corpuscular Hemoglobin Concent 30.8 L Red Cell Distribution Width 14.6 H Platelet Count 204 Mean Platelet Volume 10.7 H Neutrophils % 63.1 Lymphocytes % 26.3 Monocytes % 6.5 Eosinophils % 3.3 Basophils % 0.4 Nucleated Red Blood Cells % 0.0 Neutrophils # 3.1 Lymphocytes # 1.3 Monocytes # 0.3 Eosinophils # 0.2 Basophils # 0.0 Nucleated Red Blood Cells # 0.0 Sodium Level 144 Potassium Level 2.8 *L Chloride Level 114 H Carbon Dioxide Level 22 Anion Gap 11 Blood Urea Nitrogen 10 Creatinine 0.78 Glucose Level 92 Calcium Level 8.6 Medications Current Medications Sodium Chloride (NS) 1,000 ml @ 80 mls/hr [id number] IV Last administered on 12/19t 14:21; Admin Dose 80 MLS/HR; Start 12/16/16 at 23:31 Acetaminophen 650 mg 650 mg Q6H PRN [place] PAIN LEVEL 1-3 OR FEVER; Start 12/17/16 at 00:00 Levetiracetam (Keppra 1,500mg/ 100ml (Pmx)) 100 ml @ 400 mls/hr Q12 IVPB Last administered on 12/19/16 09:16; Admin Dose 400 MLS/HR; Start 12/17/16 at 09:00 Pantoprazole (Protonix Iv) 40 mg BID@06,18 IV Last administered on 12/19/16 05 :58; Admin Dose 40 MG; Start 12/17/16 at 21:00 Metoclopramide HCl (Reglan) 10 mg Q6 IV Last administered on 12/19/16 12:51; Admin Dose 10 MG; Start 12/17/16 at 21:00 IV Flush (NS 10 ml) 10 ml PRN PRN IV IV PROTOCOL; Start 12/18/16 at 15:00 Trimethoprim/ Sulfamethoxazole (Bactrim (Ds)) 1 tab BID GTB ; Start 12/19/16 at 21:00 Mupirocin (Bactroban) 1 applic BID TOP ; Start 12/19/16 at 21:00 Assessment/Plan Chief Complaint/Hosp Course 1. Vent dependent respiratory failure 2. Chronic encephalopathy 3. Dysphagia with G-tube 4. Status post EGD findings noted 5. Seizure disorder 6. Anemia status post EGD findings noted. Consider transfusion 1 unit packed cells. 7. Hypokalemia. Plan 1. Continue broad-spectrum antibiotics consider de-escalation soon 2. Continue tube feeding 3. Continue wound care 4. Consider transfusion 1 unit packed cells 5. Continue PPI 7. Replace potassium Discharge planning Problems: DONTE NEWTON MD, [facility] Dec 19, 2016 14:51
[2016-12-19] MEDS ORDERED: SOD CHLORIDE 0.9% 250 ML IV* ONE (16:16)
--- NOTE | 2016-12-19 16:16 | PN ---
Date/Time of Note Date/Time of Note DATE: 12/19/16 TIME: 16:03 Assessment/Plan VTE Prophylaxis VTE Prophylaxis Intervention: SCD's Lines/Catheters IV C[facility]ter Type (from [facility]): PICC Line Central line still needed: Yes Urinary Cath still in place: No Reason Cath still needed: urinary retention Assessment/Plan Chief Complaint/Hosp Course No episodes of emesis, patient remains hemodynamically stable. Change IV fluids with dextrose, continue to monitor electrolytes. We will transfuse 2 units of packed red blood cells for hemoglobin of 7.4. Problems: Assessment/Plan - Hypokalemia, potassium replaced continue to monitor electrolytes. - Upper GI bleed. Follow-up gastroenterology recommendations. - Anemia secondary to GI bleed, we will transfuse 2 units of packed red blood cells, continue to monitor hemoglobin and hematocrit. - Severe ulcerated esophagitis per EGD by Dr. Hagen, GI. Continue Protonix. - Systemic inflammatory response syndrome with leukocytosis. Dr. Matias is following in infection disease consultation. - Chronic anoxic encephalopathy, status post cardiac arrest. - Ventilator-dependent respiratory failure. Ever, is following in pulmonology consultation. - Dysphagia with G-tube. - Seizure disorder. Continue Keppra. - Schizophrenia by history. Exam/Review of Systems Vital Signs Vitals Vital Signs Date Time Temp Pulse Resp B/P Pulse Ox O2 Delivery O2 Flow Rate FiO2 12/19/16 15:51 98.6 59 16 115/66 96 12/19/16 15:10 30 12/18/16 00:00 Mechanical Ventilator Intake and Output 12/18/16 12/18/16 12/19/16 15:00 23:00 07:00 Intake Total 200 ml 400 ml Balance 200 ml 400 ml Exam Constitutional: non-verbal Head: normocephalic Neck: supple Respiratory: normal air movement, other (Tracheostomy ventilator support) Cardiovascular: nl pulses, regular rate and rhythm Gastrointestinal: non-tender, other (G-tube), soft Musculoskeletal: muscle tone, other Extremities: other (Contracted) Neurological: other (Tonic encephalopathy) Results Result Diagram: 12/19/16 0630 12/19/16 0630 Results 24 hrs Laboratory Tests Test 12/19/16 06:30 White Blood Count 4.9 Red Blood Count 2.79 L Hemoglobin 7.4 L Hematocrit 24.0 L Mean Corpuscular Volume 86.0 Mean Corpuscular Hemoglobin 26.5 L Mean Corpuscular Hemoglobin Concent 30.8 L Red Cell Distribution Width 14.6 H Platelet Count 204 Mean Platelet Volume 10.7 H Neutrophils % 63.1 Lymphocytes % 26.3 Monocytes % 6.5 Eosinophils % 3.3 Basophils % 0.4 Nucleated Red Blood Cells % 0.0 Neutrophils # 3.1 Lymphocytes # 1.3 Monocytes # 0.3 Eosinophils # 0.2 Basophils # 0.0 Nucleated Red Blood Cells # 0.0 Sodium Level 144 Potassium Level 2.8 *L Chloride Level 114 H Carbon Dioxide Level 22 Anion Gap 11 Blood Urea Nitrogen 10 Creatinine 0.78 Glucose Level 92 Calcium Level 8.6 Medications Medications Current Medications Sodium Chloride (NS) 1,000 ml @ 80 mls/hr [id number] IV Last administered on 12/19 14:21; Admin Dose 80 MLS/HR; Start 12/16/16 at 23:31 Acetaminophen 650 mg 650 mg Q6H PRN [place] PAIN LEVEL 1-3 OR FEVER; Start 12/17/16 at 00:00 Levetiracetam (Keppra 1,500mg/ 100ml (Pmx)) 100 ml @ 400 mls/hr Q12 IVPB Last administered on 12/19/16 09:16; Admin Dose 400 MLS/HR; Start 12/17/16 at 09:00 Pantoprazole (Protonix Iv) 40 mg BID@06,18 IV Last administered on 12/19/16 05 :58; Admin Dose 40 MG; Start 12/17/16 at 21:00 Metoclopramide HCl (Reglan) 10 mg Q6 IV Last administered on 12/19/16 12:51; Admin Dose 10 MG; Start 12/17/16 at 21:00 IV Flush (NS 10 ml) 10 ml PRN PRN IV IV PROTOCOL; Start 12/18/16 at 15:00 Trimethoprim/ Sulfamethoxazole (Bactrim (Ds)) 1 tab BID GTB ; Start 12/19/16 at 21:00 Mupirocin (Bactroban) 1 applic BID TOP ; Start 12/19/16 at 21:00 JH WISDOM Dec 19, 2016 16:14
[2016-12-19] MEDS: D5W-0.45 NACL + KCL 20 MEQ 1,000 ML IV SCH (16:30)
[2016-12-19] MEDS: TRIMETHOPRIM/SULFAMETHOX (DS) TAB GTB SCH (21:06)
[2016-12-19] MEDS: MUPIROCIN 2% 22 GM OINT TOP SCH (21:06)
[2016-12-20] VITALS (23 sets, daily range): BP systolic 122–155; BP diastolic 68–89; PULSE 47–80; RESP 8–33
[2016-12-20] MEDS: METOCLOPRAMIDE 10 MG INJ IV SCH ×4 (00:16→17:00)
[2016-12-20] MEDS: PANTOPRAZOLE 40 MG INJ IV SCH ×2 (05:47→17:00)
[2016-12-20] MEDS: D5W-0.45 NACL + KCL 20 MEQ 1,000 ML IV SCH ×2 (05:49→17:00)
[2016-12-20] MEDS: TRIMETHOPRIM/SULFAMETHOX (DS) TAB GTB SCH ×2 (09:26→22:23)
[2016-12-20] MEDS: MUPIROCIN 2% 22 GM OINT TOP SCH ×2 (09:27→22:22)
[2016-12-20 11:07] LABS: ADD SCAN DIFF NO
[2016-12-20 11:23] LABS: BASOPHILS % 0.5 % (0.0-2.0); EOSINOPHILS # 0.3 10^3/ul (0.0-0.5); EOSINOPHILS % 4.4 % (0.0-7.0); HEMATOCRIT 36.2 % (42.0-52.0); HEMOGLOBIN 11.4 g/dl (14.0-18.0); LYMPHOCYTES # 1.9 10^3/ul (0.8-2.9); LYMPHOCYTES % 28.3 % (15.0-51.0); MEAN CORPUSCULAR HEMOGLOBIN 27.1 pg (29.0-33.0); MEAN CORPUSCULAR HGB CONC 31.5 g/dl (32.0-37.0); MEAN PLATELET VOLUME 10.4 fl (7.4-10.4); MONOCYTE # 0.4 10^3/ul (0.3-0.9); MONOCYTES % 5.9 % (0.0-11.0); NEUTROPHILS % 60.4 % (39.0-77.0); PLATELET COUNT 248 10^3/UL (140-415); RED BLOOD COUNT 4.21 10^6/ul (4.70-6.10); RED CELL DISTRIBUTION WIDTH 14.8 % (11.5-14.5); WHITE BLOOD COUNT 6.6 10^3/ul (4.8-10.8)
--- NOTE | 2016-12-20 11:26 | PN ---
Date/Time of Note Date/Time of Note DATE: 12/20/16 TIME: 11:22 Assessment/Plan VTE Prophylaxis VTE Prophylaxis Intervention: SCD's Lines/Catheters IV Catheter Type (from Nrs): PICC Line Central line still needed: Yes Urinary Cath still in place: No Assessment/Plan Assessment/Plan Assessment * Upper GI bleed EGD Severe ulcerated esophagitis Hiatal hernia Gastrostomy tube in place * Ventilator dependent respiratory failure managed by pulmonary * Chronic anoxic encephalopathy Plan * continue present management * We will sign off and remain available upon request Subjective 24 Hr Interval Summary Free Text/Dictation Course reviewed with nursing staff Tolerating feedings without problems No evidence of significant GI bleeding We will sign off and follow upon request Exam/Review of Systems Vital Signs Vitals Vital Signs Date Time Temp Pulse Resp B/P Pulse Ox O2 Delivery O2 Flow Rate FiO2 12/20/16 11:06 98.5 80 26 155/89 96 12/20/16 09:10 30 12/18/16 00:00 Mechanical Ventilator Intake and Output 12/19/16 12/19/16 12/20/16 15:00 23:00 07:00 Intake Total 490 ml 1000 ml Output Total 600 ml Balance -110 ml 1000 ml Exam Constitutional: other (Contracted, unresponsive) Head: normocephalic Neck: supple Respiratory: clear to auscultation Cardiovascular: regular rate and rhythm Gastrointestinal: bowel sounds, other (Gastrostomy tube in place), soft, No ascites, No mass, No rebound or guarding Musculoskeletal: other (Contracted) Results Result Diagram: 12/19/16 0630 12/19/16 0630 Results 24 hrs Laboratory Tests Test 12/20/16 07:51 Lab Scanned Report BLOOD TRANSFUSION Medications Medications Current Medications Acetaminophen 650 mg 650 mg Q6H PRN [place] PAIN LEVEL 1-3 OR FEVER; Start 12/17/16 at 00:00 Levetiracetam (Keppra 1,500mg/ 100ml (Pmx)) 100 ml @ 400 mls/hr Q12 IVPB Last administered on 12/19/16 21:06; Admin Dose 400 MLS/HR; Start 12/17/16 at 09:00 Pantoprazole (Protonix Iv) 40 mg BID@06,18 IV Last administered on 12/20/16 05 :47; Admin Dose 40 MG; Start 12/17/16 at 21:00 Metoclopramide HCl (Reglan) 10 mg Q6 IV Last administered on 12/20/16 05:47; Admin Dose 10 MG; Start 12/17/16 at 21:00 IV Flush (NS 10 ml) 10 ml PRN PRN IV IV PROTOCOL; Start 12/18/16 at 15:00 Trimethoprim/ Sulfamethoxazole (Bactrim (Ds)) 1 tab BID GTB Last administered on 12/20/16 09:26; Admin Dose 1 TAB; Start 12/19/16 at 21:00 Mupirocin 1 applic 1 applic BID TOP Last administered on 12/20/16 09:27; Admin Dose 1 APPLIC; Start 12/19/16 at 21:00 Potassium Chloride/Dextrose/ Sod Cl (D5-1/2ns + KCl 20 Meq) 1,000 ml @ 70 mls/ hr [id number] IV Last administered on 12/19/16 16:30; Admin Dose 70 MLS/HR; Start 12/19/16 at 16:30 SHAYY DAVID MD Dec 20, 2016 11:26
[2016-12-20 11:35] LABS: CALCIUM 9.3 mg/dl (8.4-10.2); CREATININE 0.76 mg/dl (0.61-1.24); POTASSIUM 4.2 mmol/L (3.5-5.1)
--- NOTE | 2016-12-20 12:52 | CONS ---
Date/Time of Note Date/Time of Note DATE: 12/20/16 TIME: 12:50 Consult Date/Type/Reason Admit Date/Time Dec 16, 2016 at 22:27 Initial Consult Date 12/17/16 Type of Consultation: Pulmonary Subjective Remains comfortable no new events. Objective Vital Signs Date Time Temp Pulse Resp B/P Pulse Ox O2 Delivery O2 Flow Rate FiO2 12/20/16 12:38 76 12/20/16 11:20 24 96 30 12/20/16 11:06 98.5 155/89 12/18/16 00:00 Mechanical Ventilator Intake and Output 12/19/16 12/19/16 12/20/16 15:00 23:00 07:00 Intake Total 490 ml 1000 ml Output Total 600 ml Balance -110 ml 1000 ml Exam Exam PHYSICAL EXAMINATION GENERAL: Chronically ill-appearing gentleman comfortable at rest no acute distress VITAL SIGNS: see below. HEENT: Pupils equal, round, and reactive to light. Tracheostomy site clean and intact. CARDIAC: S1, S2, no added sounds or murmurs CHEST: Diminished air entry bilaterally. ABDOMEN: Mildly distended. Bowel sounds present no guarding or rebound EXTREMITIES: No cyanosis, clubbing edema +1 NEUROLOGIC: Generalized weakness Results/Medications Result Diagram: 12/20/16 1030 12/20/16 1030 Results 24 hrs Laboratory Tests Test 12/20/16 07:51 12/20/16 10:30 Lab Scanned Report BLOOD TRANSFUSION White Blood Count 6.6 # Red Blood Count 4.21 #L Hemoglobin 11.4 #L Hematocrit 36.2 #L Mean Corpuscular Volume 86.0 Mean Corpuscular Hemoglobin 27.1 L Mean Corpuscular Hemoglobin Concent 31.5 L Red Cell Distribution Width 14.8 H Platelet Count 248 # Mean Platelet Volume 10.4 Neutrophils % 60.4 Lymphocytes % 28.3 Monocytes % 5.9 Eosinophils % 4.4 Basophils % 0.5 Nucleated Red Blood Cells % 0.0 Neutrophils # 4.0 Lymphocytes # 1.9 Monocytes # 0.4 Eosinophils # 0.3 Basophils # 0.0 Nucleated Red Blood Cells # 0.0 Sodium Level 150 H Potassium Level 4.2 Chloride Level 110 Carbon Dioxide Level 20 L Anion Gap 24 #H Blood Urea Nitrogen 9 Creatinine 0.76 Glucose Level 95 Calcium Level 9.3 Magnesium Level 2.1 Medications Current Medications Acetaminophen 650 mg 650 mg Q6H PRN [place] PAIN LEVEL 1-3 OR FEVER; Start 12/17/16 at 00:00 Levetiracetam (Keppra 1,500mg/ 100ml (Pmx)) 100 ml @ 400 mls/hr Q12 IVPB Last administered on 12/19/16 21:06; Admin Dose 400 MLS/HR; Start 12/17/16 at 09:00 Pantoprazole (Protonix Iv) 40 mg BID@06,18 IV Last administered on 12/20/16 05 :47; Admin Dose 40 MG; Start 12/17/16 at 21:00 Metoclopramide HCl (Reglan) 10 mg Q6 IV Last administered on 12/20/16 05:47; Admin Dose 10 MG; Start 12/17/16 at 21:00 IV Flush (NS 10 ml) 10 ml PRN PRN IV IV PROTOCOL; Start 12/18/16 at 15:00 Trimethoprim/ Sulfamethoxazole (Bactrim (Ds)) 1 tab BID GTB Last administered on 12/20/16 09:26; Admin Dose 1 TAB; Start 12/19/16 at 21:00 Mupirocin 1 applic 1 applic BID TOP Last administered on 12/20/16 09:27; Admin Dose 1 APPLIC; Start 12/19/16 at 21:00 Potassium Chloride/Dextrose/ Sod Cl (D5-1/2ns + KCl 20 Meq) 1,000 ml @ 70 mls/ hr [id number] IV Last administered on 12/19/16 16:30; Admin Dose 70 MLS/HR; Start 12/19/16 at 16:30 Assessment/Plan Chief Complaint/Hosp Course 1. Vent dependent respiratory failure 2. Chronic encephalopathy 3. Dysphagia with G-tube 4. Status post EGD findings noted 5. Seizure disorder 6. Anemia status post EGD findings noted. 7. Hypokalemia. Plan 1. Continue broad-spectrum antibiotics consider de-escalation soon 2. Continue tube feeding 3. Continue wound care 4. Increase free water per primary team 5. Continue PPI Discharge planning Problems: [facility] NEWTON MD, [facility] Dec 20, 2016 12:51
[2016-12-20] MEDS: LEVETIRACETAM 1500 MG (PMX) 100 ML IVPB SCH ×2 (12:53→22:22)
--- NOTE | 2016-12-20 16:09 | CONS ---
Date/Time of Note Date/Time of Note DATE: 12/20/16 TIME: 15:54 Assessment/Plan Assessment/Plan Chief Complaint/Hosp Course ID PROGRESS NOTE ABX DAY # 4=> Bactrim IV #2 + Bactroban topical nares s/p Vanco IV + Zosyn 24H INTERVAL SUMMARY * 46 yo M Chronic encephalopath w/Trach & Peg, admit from [facility] w/Fevers & Leukocytosis * Fever on admission = RESOLVED and WBC down today after initiation broad spectrum ABX * INDWELLINGS: Trach, PEG, Charles. New PICC * MICRO : Urine cx(+) P STUARTII A.BAUMANNI M.I.C. RX M.I.C. RX --------- --- --------- --- AMIKACIN R CEFOTAXIME R CEFTAZIDIME 8 S CIPROFLOXACIN 2 I >=4 R GENTAMICIN >=16 R >=16 R IMIPENEM <=0.25 S LEVOFLOXACIN 4 I >=8 R NITROFURANTOIN 128 R TOBRAMYCIN >=16 R >=16 R TRIMETHOPRIM/SULFAMETHOXAZOLE 40 S >=320 R PIPERACILLIN/TAZOBACTAM 16 S PHYSICAL EXAMINATION: GENERAL: VSS, NAD, no fever HEENT: Unremarkable NECK: Trach-> secure to Vent CHEST: Equal chest rise bilaterally, without dyspnea on observation HEART: Pulse RRR ABDOMEN: Soft (+)Peg EXTREMITIES: Warm SKIN: Warm, dry ID ASSESSMENT: 46 yo M w/chronic vegetative state, admitted with: 1. Systemic inflammatory response syndrome with leukocytosis on admission 2. 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 * URINE CULTURE Preliminary Organism 1 PROVIDENCIA STUARTII COLONY COUNT 10,000 - 20,000 CFU/ml Organism 2 ACINETOBACTER BAUMANNII COLONY COUNT 10,000 - 20,000 CFU/ml 3. Coag negative staph bacteremia likely contaminant vs line sepsis * NEW PICC inserted 12/19/16 4. Chronic respiratory failure w/chronic Trach 5. Status post GI bleeding 3. Aspiration pneumonitis [facility] w/sputum (+)Polymicrobial last admission * 12/18/16 CXR Patchy right lower lung infiltrates, possibly combined with small pleural effusion. Atelectasis versus mild infiltrates in the left lower lobe 6. Anemia 7. Dysphagia -> Chronic peg 8. Proctitis per CT findings: . Mild diffuse rectal thickening suggestive of a proctitis. ABX ALLERGIES: KNDA INVASIVES: *PICC (12/18/16) , Trach, Peg, CURRENT ABX: ABX DAY # 4=> Bactrim IV #2 + Bactroban topical nares s/p Vanco IV + Zosyn ID RECOMMENDATIONS: 1. Continue Bactrim IV 2. Fosfomycin 3gm via GT x1 to cover concern ACBA Urine Pathogens 3. Flagyl via GT to cover concern Proctitis Problems: Consultation Date/Type/Reason Admit Date/Time Dec 16, 2016 at 22:27 Initial Consult Date 12/17/16 Type of Consultation: ID Exam/Review of Systems Vital Signs Vitals Vital Signs Date Time Temp Pulse Resp B/P Pulse Ox O2 Delivery O2 Flow Rate FiO2 12/20/16 15:14 98.8 79 27 128/81 96 12/20/16 13:15 30 12/18/16 00:00 Mechanical Ventilator Intake and Output 12/19/16 12/19/16 12/20/16 15:00 23:00 07:00 Intake Total 490 ml 1000 ml Output Total 600 ml Balance -110 ml 1000 ml Results Result Diagram: 12/20/16 1030 12/20/16 1030 Results 24 hrs Laboratory Tests Test 12/20/16 07:51 12/20/16 10:30 Lab Scanned Report BLOOD TRANSFUSION White Blood Count 6.6 # Red Blood Count 4.21 #L Hemoglobin 11.4 #L Hematocrit 36.2 #L Mean Corpuscular Volume 86.0 Mean Corpuscular Hemoglobin 27.1 L Mean Corpuscular Hemoglobin Concent 31.5 L Red Cell Distribution Width 14.8 H Platelet Count 248 # Mean Platelet Volume 10.4 Neutrophils % 60.4 Lymphocytes % 28.3 Monocytes % 5.9 Eosinophils % 4.4 Basophils % 0.5 Nucleated Red Blood Cells % 0.0 Neutrophils # 4.0 Lymphocytes # 1.9 Monocytes # 0.4 Eosinophils # 0.3 Basophils # 0.0 Nucleated Red Blood Cells # 0.0 Sodium Level 150 H Potassium Level 4.2 Chloride Level 110 Carbon Dioxide Level 20 L Anion Gap 24 #H Blood Urea Nitrogen 9 Creatinine 0.76 Glucose Level 95 Calcium Level 9.3 Magnesium Level 2.1 Medications Medications Current Medications Acetaminophen 650 mg 650 mg Q6H PRN [place] PAIN LEVEL 1-3 OR FEVER; Start 12/17/16 at 00:00 Levetiracetam (Keppra 1,500mg/ 100ml (Pmx)) 100 ml @ 400 mls/hr Q12 IVPB Last administered on 12/20/16 12:53; Admin Dose 400 MLS/HR; Start 12/17/16 at 09:00 Pantoprazole (Protonix Iv) 40 mg BID@06,18 IV Last administered on 12/20/16 05 :47; Admin Dose 40 MG; Start 12/17/16 at 21:00 Metoclopramide HCl (Reglan) 10 mg Q6 IV Last administered on 12/20/16 12:53; Admin Dose 10 MG; Start 12/17/16 at 21:00 IV Flush (NS 10 ml) 10 ml PRN PRN IV IV PROTOCOL; Start 12/18/16 at 15:00 Trimethoprim/ Sulfamethoxazole (Bactrim (Ds)) 1 tab BID GTB Last administered on 12/20/16 09:26; Admin Dose 1 TAB; Start 12/19/16 at 21:00 Mupirocin 1 applic 1 applic BID TOP Last administered on 12/20/16 09:27; Admin Dose 1 APPLIC; Start 12/19/16 at 21:00 Potassium Chloride/Dextrose/ Sod Cl (D5-1/2ns + KCl 20 Meq) 1,000 ml @ 70 mls/ hr [id number] IV Last administered on 12/19/16 16:30; Admin Dose 70 MLS/HR; Start 12/19/16 at 16:30 GUNJAN CORRALES WEIR FISHERMAN Dec 20, 2016 16:07
[2016-12-20] MEDS ORDERED: FOSFOMYCIN 3 GM PACKET PO ONE (17:00)
[2016-12-20] MEDS: metroNIDAZOLE 500 MG TAB GTB SCH ×2 (17:00→22:23)
--- NOTE | 2016-12-20 17:39 | PN ---
Date/Time of Note Date/Time of Note DATE: 12/20/16 TIME: 17:37 Assessment/Plan VTE Prophylaxis VTE Prophylaxis Intervention: other Lines/Catheters IV [facility]ter Type (from [facility] PICC Line Urinary Cath still in place: No Assessment/Plan Assessment/Plan - Hypernatremia- change free water to [id number] - Hypokalemia, potassium replaced continue to monitor electrolytes. - Upper GI bleed. Follow-up gastroenterology recommendations. - Anemia secondary to GI bleed, we will transfuse 2 units of packed red blood cells, continue to monitor hemoglobin and hematocrit. - Severe ulcerated esophagitis per EGD by Dr. Hagen, GI. Continue Protonix. - Systemic inflammatory response syndrome with leukocytosis. Dr. Matias is following in infection disease consultation. - Chronic anoxic encephalopathy, status post cardiac arrest. - Ventilator-dependent respiratory failure. Ever, is following in pulmonology consultation. - Dysphagia with G-tube. - Seizure disorder. Continue Keppra. - seizure precautions - Schizophrenia by history. Anticipate transfer am. keeley beaulieu Exam/Review of Systems Vital Signs Vitals Vital Signs Date Time Temp Pulse Resp B/P Pulse Ox O2 Delivery O2 Flow Rate FiO2 12/20/16 16:33 80 12/20/16 15:14 98.8 27 128/81 96 12/20/16 13:15 30 12/18/16 00:00 Mechanical Ventilator Intake and Output 12/19/16 12/19/16 12/20/16 15:00 23:00 07:00 Intake Total 490 ml 1000 ml Output Total 600 ml Balance -110 ml 1000 ml Exam Respiratory: clear to auscultation, normal air movement Cardiovascular: nl pulses Gastrointestinal: non-tender, soft Musculoskeletal: muscle tone Extremities: normal pulses Neurological: unresponsive Results Result Diagram: 12/20/16 1030 12/20/16 1030 Results 24 hrs Laboratory Tests Test 12/20/16 07:51 12/20/16 10:30 Lab Scanned Report BLOOD TRANSFUSION White Blood Count 6.6 # Red Blood Count 4.21 #L Hemoglobin 11.4 #L Hematocrit 36.2 #L Mean Corpuscular Volume 86.0 Mean Corpuscular Hemoglobin 27.1 L Mean Corpuscular Hemoglobin Concent 31.5 L Red Cell Distribution Width 14.8 H Platelet Count 248 # Mean Platelet Volume 10.4 Neutrophils % 60.4 Lymphocytes % 28.3 Monocytes % 5.9 Eosinophils % 4.4 Basophils % 0.5 Nucleated Red Blood Cells % 0.0 Neutrophils # 4.0 Lymphocytes # 1.9 Monocytes # 0.4 Eosinophils # 0.3 Basophils # 0.0 Nucleated Red Blood Cells # 0.0 Sodium Level 150 H Potassium Level 4.2 Chloride Level 110 Carbon Dioxide Level 20 L Anion Gap 24 #H Blood Urea Nitrogen 9 Creatinine 0.76 Glucose Level 95 Calcium Level 9.3 Magnesium Level 2.1 Medications Medications Current Medications Acetaminophen 650 mg 650 mg Q6H PRN [place] PAIN LEVEL 1-3 OR FEVER; Start 12/17/16 at 00:00 Levetiracetam (Keppra 1,500mg/ 100ml (Pmx)) 100 ml @ 400 mls/hr Q12 IVPB Last administered on 12/20/16 12:53; Admin Dose 400 MLS/HR; Start 12/17/16 at 09:00 Pantoprazole (Protonix Iv) 40 mg BID@06,18 IV Last administered on 12/20/16 17 :00; Admin Dose 40 MG; Start 12/17/16 at 21:00 Metoclopramide HCl (Reglan) 10 mg Q6 IV Last administered on 12/20/16 17:00; Admin Dose 10 MG; Start 12/17/16 at 21:00 IV Flush (NS 10 ml) 10 ml PRN PRN IV IV PROTOCOL; Start 12/18/16 at 15:00 Trimethoprim/ Sulfamethoxazole (Bactrim (Ds)) 1 tab BID GTB Last administered on 12/20/16 09:26; Admin Dose 1 TAB; Start 12/19/16 at 21:00 Mupirocin 1 applic 1 applic BID TOP Last administered on 12/20/16 09:27; Admin Dose 1 APPLIC; Start 12/19/16 at 21:00 Potassium Chloride/Dextrose/ Sod Cl (D5-1/2ns + KCl 20 Meq) 1,000 ml @ 70 mls/ hr [id number] IV Last administered on 12/20/16 17:00; Admin Dose 70 MLS/HR; Start 12/19/16 at 16:30 Metronidazole (Flagyl) 500 mg Q8 GTB Last administered on 12/20/16 17:00; Admin Dose 500 MG; Start 12/20/16 at 16:30 SHELLEY HERNANDEZ Dec 20, 2016 17:39
[2016-12-21] VITALS (24 sets, daily range): BP systolic 102–148; BP diastolic 57–87; PULSE 65–97; RESP 15–35
[2016-12-21] MEDS: METOCLOPRAMIDE 10 MG INJ IV SCH ×4 (01:39→18:00)
[2016-12-21] MEDS: LORAZEPAM 2 MG INJ IV PRN ×2 (04:50→17:57)
[2016-12-21] MEDS: PANTOPRAZOLE 40 MG INJ IV SCH ×2 (05:51→18:00)
[2016-12-21] MEDS: metroNIDAZOLE 500 MG TAB GTB SCH ×3 (05:52→20:33)
[2016-12-21] MEDS: D5W-0.45 NACL + KCL 20 MEQ 1,000 ML IV SCH (07:23)
[2016-12-21] MEDS: TRIMETHOPRIM/SULFAMETHOX (DS) TAB GTB SCH ×2 (09:12→20:33)
[2016-12-21] MEDS: MUPIROCIN 2% 22 GM OINT TOP SCH ×2 (09:12→20:33)
[2016-12-21] MEDS: LEVETIRACETAM 1500 MG (PMX) 100 ML IVPB SCH ×2 (09:12→20:33)
[2016-12-21 11:45] LABS: CALCIUM 8.7 mg/dl (8.4-10.2); CREATININE 0.79 mg/dl (0.61-1.24); POTASSIUM 4.1 mmol/L (3.5-5.1)
--- NOTE | 2016-12-21 13:11 | CONS ---
Date/Time of Note Date/Time of Note DATE: 12/21/16 TIME: 13:09 Consult Date/Type/Reason Admit Date/Time Dec 16, 2016 at 22:27 Initial Consult Date 12/17/16 Type of Consultation: Pulmonary Subjective Patient remains comfortable this morning no new events Objective Vital Signs Date Time Temp Pulse Resp B/P Pulse Ox O2 Delivery O2 Flow Rate FiO2 12/21/16 12:32 73 12/21/16 11:23 98.0 15 102/57 96 12/21/16 11:20 30 12/21/16 04:19 Mechanical Ventilator Trach Collar Intake and Output 12/20/16 12/20/16 12/21/16 15:00 23:00 07:00 Intake Total 800 ml 600 ml Balance 800 ml 600 ml Exam PHYSICAL EXAMINATION GENERAL: Chronically ill-appearing gentleman comfortable at rest no acute distress VITAL SIGNS: see below. HEENT: Pupils equal, round, and reactive to light. Tracheostomy site clean and intact. CARDIAC: S1, S2, no added sounds or murmurs CHEST: Diminished air entry bilaterally. ABDOMEN: Mildly distended. Bowel sounds present no guarding or rebound EXTREMITIES: No cyanosis, clubbing edema +1 NEUROLOGIC: Generalized weakness Results/Medications Result Diagram: 12/20/16 1030 12/21/16 1041 Results 24 hrs Laboratory Tests Test 12/21/16 10:41 Sodium Level 145 H Potassium Level 4.1 Chloride Level 110 Carbon Dioxide Level 17 L Anion Gap 22 H Blood Urea Nitrogen 9 Creatinine 0.79 Glucose Level 103 Calcium Level 8.7 Medications Current Medications Acetaminophen 650 mg 650 mg Q6H PRN [place] PAIN LEVEL 1-3 OR FEVER; Start 12/17/16 at 00:00 Levetiracetam (Keppra 1,500mg/ 100ml (Pmx)) 100 ml @ 400 mls/hr Q12 IVPB Last administered on 12/21/16 09:12; Admin Dose 400 MLS/HR; Start 12/17/16 at 09:00 Pantoprazole (Protonix Iv) 40 mg BID@06,18 IV Last administered on 12/21/16 05 :51; Admin Dose 40 MG; Start 12/17/16 at 21:00 Metoclopramide HCl (Reglan) 10 mg Q6 IV Last administered on 12/21/16 13:07; Admin Dose 10 MG; Start 12/17/16 at 21:00 IV Flush (NS 10 ml) 10 ml PRN PRN IV IV PROTOCOL; Start 12/18/16 at 15:00 Trimethoprim/ Sulfamethoxazole (Bactrim (Ds)) 1 tab BID GTB Last administered on 12/21/16 09:12; Admin Dose 1 TAB; Start 12/19/16 at 21:00 Mupirocin 1 applic 1 applic BID TOP Last administered on 12/21/16 09:12; Admin Dose 1 APPLIC; Start 12/19/16 at 21:00 Potassium Chloride/Dextrose/ Sod Cl (D5-1/2ns + KCl 20 Meq) 1,000 ml @ 70 mls/ hr [id number] IV Last administered on 12/21/16 07:23; Admin Dose 70 MLS/HR; Start 12/19/16 at 16:30 Metronidazole (Flagyl) 500 mg Q8 GTB Last administered on 12/21/16 13:07; Admin Dose 500 MG; Start 12/20/16 at 16:30 Lorazepam (Ativan) 0.5 mg Q4 PRN IV AGITATION/ANXIETY Last administered on 12/21 04:50; Admin Dose 0.5 MG; Start 12/21/16 at 05:00 Assessment/Plan Chief Complaint/Hosp Course 1. Vent dependent respiratory failure 2. Chronic encephalopathy 3. Dysphagia with G-tube 4. Status post EGD findings noted 5. Seizure disorder 6. Anemia status post EGD findings noted. 7. Hypernatremia improved Plan 1. Continue broad-spectrum antibiotics consider de-escalation soon 2. Continue tube feeding 3. Continue wound care 4. Increase free water per primary team 5. Continue PPI Discharge planning Problems: [facility] NEWTON [facility] Dec 21, 2016 13:10
--- NOTE | 2016-12-21 14:28 | PDOCDIS ---
Discharge Instructions CONDITION Patient Condition: Stable HOME CARE INSTRUCTIONS: Special Diet: NPO/Tube Feeding ACTIVITY: Bathing Restrictions: Sponge Bath SHELLEY HERNANDEZ Dec 21, 2016 14:28
--- NOTE | 2016-12-21 14:37 | DS ---
Date/Time of Note Date/Time of Note DATE: 12/21/16 TIME: 14:36 Discharge Summary Admission/Discharge Info Admit Date/Time Dec 16, 2016 at 22:27 Discharge Date/Time Hx of Present Illness Chief complaint: Coffee-ground emesis. This unfortunate 46-year-old male in vegetative state presents for single episode of coffee-ground emesis at his snf. Has a gastrostomy tube in his chronic trach vent patient. No other complaints were sent with the patient and there is no paperwork received. Paramedics received only report of the single episode of vomiting. Patient is lying in bed and is nonresponsive. He is contracted all of his extremities. Allergies: NKDA Medications: See AUG Hospital Course 1. Vent dependent respiratory failure 2. Chronic encephalopathy 3. Dysphagia with G-tube 4. Status post EGD findings noted 5. Seizure disorder 6. Anemia status post EGD findings noted. 7. Hypernatremia improved Plan 1. Continue broad-spectrum antibiotics consider de-escalation soon 2. Continue tube feeding 3. Continue wound care 4. Increase free water per primary team 5. Continue PPI Discharge planning Home Meds Reported Medications Docusate Sodium* (Colace*) 100 Mg Capsule, 100 MG GTB QHS, #30 CAP 12/16/16 Bisacodyl* (Bisacodyl*) 10 Mg Supp, 10 MG TN DAILY Y for PRN, SUPP 12/16/16 Sod Phosphate/Sod Biphosphate* (Fleet* Enema Pediatric) 66.6 Ml Soln, 66.6 ML TN Q2DAYS Y for CONSTIPATION, ENEMA 12/16/16 Magnesium Hydroxide* (Milk Of Magnesia*) 400 Mg/5 Ml Oral.susp, 30 ML GTB DAILY , ML 12/16/16 Cranberry Extract (Cranberry) 425 Mg Capsule, 425 MG GTB BID, CAP 12/16/16 Multivit &Minerals/Ferrous Fum (MULTIVITAMIN LIQUID) 9 Mg/15 Ml Liquid, 5 ML GTB DAILY 12/16/16 Ascorbic Acid (Vitamin C) 500 Mg Tab, 500 MG GTB DAILY, TAB 12/16/16 Ferrous Sulfate (Ferrous Sulfate) 220 Mg/5 Ml Solution, 220 MG GTB DAILY 12/16/16 Acetaminophen* (Tylenol*) 500 Mg Tab, 1000 MG GTB Q4H Y for MODERATE PAIN 4-610 , TAB 12/16/16 Acetaminophen* (Tylenol*) 325 Mg Tablet, 650 MG GTB Q4H Y for MILD PAIN LEVEL 1- 3, TAB FOR FEVER 101 AND ABOVE,FOR TRACH TUBE CHANGE 12/16/16 Ondansetron Hcl* (Zofran*) 4 Mg Tablet, 4 MG GTB Q6H Y for NAUSEA AND OR VOMITING, TAB 12/16/16 Metoclopramide* (Reglan*) 10 Mg/10 Ml Soln, 5 MG GTB Q8, ML 12/16/16 Levetiracetam* (Keppra* (Ped)) 100 Mg/Ml Liq, 15 ML GTB BID for 30 Days, BOTTLE 12/16/16 Metoprolol Tartrate* (Lopressor*) 25 Mg Tab, 12.5 MG GTB BID, #60 TAB HOLD IF SBP<110 12/16/16 Lansoprazole* (Lansoprazole*) 30 Mg Capsule.dr, 30 MG GTB DAILY, CAP 12/16/16 Enoxaparin Sodium* (Lovenox*) 30 Mg/0.3 Ml Disp.syrin, 30 MG SQ DAILY, SYR 12/16/16 Aspirin* (Aspirin* EC) 81 Mg Tablet.dr, 81 MG GTB DAILY, TAB 12/16/16 Discontinued Reported Medications Ascorbic Acid* (Vitamin C* Liq) 500 Mg/5 Ml Syrup, 500 MG GTB DAILY, ML 07/19/16 Cran/Vitc/Mannose/Inulin/Brom (Uti-Stat Liquid) 3,875 Mg/30 Ml Liquid, 3875 MG GTB BID 07/19/16 Acetaminophen* (Acetaminophen*) 650 Mg Tablet, 650 MG GTB Q4 Y for PAIN AND OR ELEVATED TEMP, #30 TAB 07/19/16 Metoclopramide* (Reglan*) 10 Mg/10 Ml Soln, 5 MG GTB Q8, ML 07/19/16 Esomeprazole Mag Trihydrate (Nexium) 40 Mg Capsule.dr, 40 MG GTB DAILY, #30 CAP 07/19/16 Multivit &Minerals/Ferrous Fum (MULTIVITAMIN LIQUID) 9 Mg/15 Ml Liquid, 3 MG GTB DAILY 07/19/16 Magnesium Hydroxide* (Milk Of Magnesia*) 400 Mg/5 Ml Oral.susp, 30 ML GTB Q24H Y for CONSTIPATION, ML 07/19/16 Levetiracetam* (Keppra*) 500 Mg/5 Ml Solution, 1500 MG GTB BID, BOTTLE 07/19/16 Na Phos,M-B/Na Phos,Di-Ba (Fleet Enema Extra) 230 Ml Enema, 230 ML RC Q48 Y for CONSTIPATION, ENEMA 07/19/16 Ferrous Sulfate (Ferrous Sulfate) 220 Mg/5 Ml Elixir, 330 MG GTB BID, BOTTLE 07/19/16 Bisacodyl* (Bisacodyl*) 10 Mg Supp, 10 MG TN Q24H Y for CONSTIPATION, SUPP 07/19/16 Docusate Sodium* (Docusate Sodium*) 100 Mg Capsule, 100 MG GTB QHS, #30 CAP 07/19/16 Chlorhexidine Gluconate (Peridex) 473 Ml Mouthwash, 15 ML MM Q12, BOTTLE 07/19/16 Albuterol Sulfate* (Albuterol Sulfate* Neb) 0.083%-3 Ml Neb, 2.5 MG NEB Q3H Y for WHEEZING AND SOB, #30 VIAL 07/19/16 Primary Care Provider Guru Courtney MD Pending Labs Laboratory Tests Test 12/21/16 10:41 Sodium Level 145mmol/L (135-144) Potassium Level 4.1mmol/L (3.5-5.1) Chloride Level 110mmol/L (97-110) Carbon Dioxide Level 17mmol/L (21-31) Anion Gap 22 (8-16) Blood Urea Nitrogen 9mg/dl (7-20) Creatinine 0.79mg/dl (0.61-1.24) Glucose Level 103mg/dl (70-220) Calcium Level 8.7mg/dl (8.4-10.2) SHELLEY HERNANDEZ Dec 21, 2016 14:36
== END 2016-12-21 20:56 | DRG 870 ==
LOC: E/R 19:41 → ICU 22:27 → TEL 12-18 01:35
PROVIDERS: ADMIT Internal Medicine; ATTEND Internal Medicine
PROC: 5A1955Z Respiratory Ventilation, Greater than 96 Consecutive Hours (ICD-10-PCS; principal; 2016-12-16)
PROC: 0DJ08ZZ Inspection of Upper Intestinal Tract, Via Natural or Artificial Opening Endoscopic (ICD-10-PCS; 2016-12-17)
PROC: 02HV33Z Insertion of Infusion Device into Superior Vena Cava, Percutaneous Approach (ICD-10-PCS; 2016-12-18)
DX: A41.2 Sepsis due to unspecified staphylococcus (principal); J69.0 Pneumonitis due to inhalation of food and vomit; R40.3 Persistent vegetative state; Z99.11 Dependence on respirator [ventilator] status; J96.10 Chronic respiratory failure, unspecified whether with hypoxia or hypercapnia; L89.893 Pressure ulcer of other site, stage 3; K22.10 Ulcer of esophagus without bleeding; K92.2 Gastrointestinal hemorrhage, unspecified; N39.0 Urinary tract infection, site not specified; E87.0 Hyperosmolality and hypernatremia; E87.5 Hyperkalemia; K62.89 Other specified diseases of anus and rectum; K44.9 Diaphragmatic hernia without obstruction or gangrene; B95.8 Unspecified staphylococcus as the cause of diseases classified elsewhere; G40.909 Epilepsy, unspecified, not intractable, without status epilepticus; D50.0 Iron deficiency anemia secondary to blood loss (chronic); R13.10 Dysphagia, unspecified; F20.9 Schizophrenia, unspecified; Z66 Do not resuscitate; Z86.74 Personal history of sudden cardiac arrest; Z93.1 Gastrostomy status
CPT/HCPCS: 36415; 36430; 36569; 36600; 71010; 74176; 76937; 80048; 80053; 81001; 82803; 82962; 83605; 83690; 83735; 84484; 85025; 86850; 86900; 86901; 86920; 87040; 87081; 87086; 93005; 94002; 94003; 96365; 96366; 96375; C1769; C9113; J1953; J2060; J2405; J2543; J2765; J3370; J3475; J3480; J7030; J7040; P9016; P9612

== ENCOUNTER 2017-01-14 08:50 | Inpatient (IN) | payer MEDICAID ==
[~2017-01-14] VITALS: Ht 167.6 cm; Wt 65.0 kg
[2017-01-14] VITALS (8 sets, daily range): BP systolic 119–122; BP diastolic 83–85; PULSE 90–99; RESP 16–18; TEMP 99.6; Ht 167.6 cm; Wt 65.0 kg
[~2017-01-14 08:50] MED LIST changes: -ACET-2047 GTB; +ACET325T33 GTB; -ALBU2.5V3 NEB; +ASC500 GTB; -ASCO500S2 GTB; +ASPI-664 GTB; -CHLO473M4 MM; -CRAN3875 GTB; +CRAN425C GTB; +DOCU-144 GTB; -DOCU-159 GTB; +ENOX30DI10 SQ; -ESOM40CA GTB; +FERR220S2 GTB; -FERR220S3 GTB; +FLEETPED PR; +KEP100S GTB; +LANS30CA GTB; -LEVE500S8 GTB; +METO-448 GTB; -NA P230E RC; +ONDA4TAB8 GTB; +TYL500 GTB
[2017-01-14] MEDS ORDERED: PANTOPRAZOLE IV 80 MG in SOD CHLORIDE 0.9% 100 ML IVPB STA (08:56)
[2017-01-14] MEDS ORDERED: UDREG GTB (09:24)
[2017-01-14] MEDS ORDERED: CHLO473M4 MM (09:26)
[2017-01-14] MEDS ORDERED: UDFER GTB (09:27)
[2017-01-14] MEDS ORDERED: FAMO-96 GTB (09:28)
[2017-01-14] MEDS ORDERED: ACET-2047 PO (09:30)
[2017-01-14] MEDS ORDERED: ONDANSETRON 4 MG INJ IV PRN ×2 (09:30→17:30)
[2017-01-14] MEDS ORDERED: ACETAMINOPHEN 325 MG TAB PO PRN (09:30)
[2017-01-14] MEDS ORDERED: CRAN3875 GTB (09:31)
[2017-01-14] MEDS ORDERED: ZINC220T GTB (09:32)
[2017-01-14] MEDS ORDERED: ONDA4TAB8 GTB (09:33)
[2017-01-14] MEDS ORDERED: CRAN425C PO (09:33)
[2017-01-14] MEDS ORDERED: IPRA3AMP INHALATION ×2 (09:35→09:36)
[2017-01-14 09:50] LABS: BASOPHIL # 0.1 10^3/ul (0.0-0.1); BASOPHILS % 0.5 % (0.0-2.0); EOSINOPHILS # 0.1 10^3/ul (0.0-0.5); EOSINOPHILS % 0.7 % (0.0-7.0); HEMATOCRIT 38.1 % (42.0-52.0); HEMOGLOBIN 12.3 g/dl (14.0-18.0); LYMPHOCYTES # 1.1 10^3/ul (0.8-2.9); LYMPHOCYTES % 10.3 % (15.0-51.0); MEAN CORPUSCULAR HEMOGLOBIN 27.6 pg (29.0-33.0); MEAN CORPUSCULAR HGB CONC 32.3 g/dl (32.0-37.0); MEAN CORPUSCULAR VOLUME 85.4 fl (82.0-101.0); MEAN PLATELET VOLUME 10.7 fl (7.4-10.4); MONOCYTE # 0.5 10^3/ul (0.3-0.9); MONOCYTES % 4.1 % (0.0-11.0); NEUTROPHIL # 9.3 10^3/ul (1.6-7.5); PLATELET COUNT 353 10^3/UL (140-415); RED BLOOD COUNT 4.46 10^6/ul (4.70-6.10); RED CELL DISTRIBUTION WIDTH 15.4 % (11.5-14.5)
[2017-01-14 10:07] LABS: INR 0.83; PARTIAL THROMBOPLASTIN TIME 25.5 Sec (25.0-35.0); PROTIME 11.4 Sec (12.2-14.2); PT RATIO 0.9
[2017-01-14 10:15] LABS: ALANINE AMINOTRANSFERASE 41 IU/L (13-69); ALBUMIN 4.3 g/dl (3.3-4.9); ALKALINE PHOSPHATASE 92 IU/L (42-121); ANION GAP 24 (8-16); ASPARTATE AMINO TRANSFERASE 49 IU/L (15-46); BILIRUBIN,INDIRECT 0.1 mg/dl (0-1.1); BILIRUBIN,TOTAL 0.1 mg/dl (0.2-1.3); BLOOD UREA NITROGEN 25 mg/dl (7-20); CARBON DIOXIDE 29 mmol/L (21-31); CHLORIDE 97 mmol/L (97-110); GLUCOSE 111 mg/dl (70-220); POTASSIUM 3.6 mmol/L (3.5-5.1); SODIUM 146 mmol/L (135-144); TOTAL PROTEIN 8.6 g/dl (6.1-8.1)
--- NOTE | 2017-01-14 10:47 | RADRPT ---
PROCEDURE: XR Chest. CLINICAL INDICATION: Chest pain TECHNIQUE: Single portable view of the chest was obtained COMPARISON: 12/18/16 FINDINGS: The heart and mediastinum are within normal limits. There is a tracheostomy tube in place. There are mild bibasilar atelectatic changes. The lungs are otherwise clear. There is no pleural effusion or pneumothorax. RPTAT: AA IMPRESSION: Mild bibasilar atelectatic changes. .Vivek Hansen MD, MD Date Time Electronically viewed and signed by .Vivek Hansen MD, MD on 01/14/2017 10:47 .S/
[2017-01-14 10:55] LABS: TROPONIN-I < 0.012 ng/ml (0.00-0.12)
--- NOTE | 2017-01-14 12:36 | ERA ---
ER Documentation Chief Complaint Date/Time DATE: 01/14/17 TIME: 12:29 Chief Complaint Hematemesis HPI Patient is a 46-year-old male with tracheostomy and ventilator who presents with GI bleeding. Please note the history and physical exam is limited secondary to the patient's mental status. The patient was brought in by ambulance. He has had coffee-ground emesis. He is a DNR. His primary doctor is Dr. Courtney. I cannot obtain history otherwise. ROS All systems reviewed and are negative except as per history of present illness. Medications Home Meds Reported Medications Ipratropium-Albuterol (Ipratropium-Albuterol) 0.5-3 Mg/3 Ml Ampul.neb, 3 ML INHALATION Q3H Y for WHEEZING AND SOB, #30 VIAL 01/14/17 Ipratropium-Albuterol (Ipratropium-Albuterol) 0.5-3 Mg/3 Ml Ampul.neb, 3 ML INHALATION Q6 Y for WHEEZING AND SOB, #30 VIAL 01/14/17 Cranberry Extract (Cranberry) 425 Mg Capsule, 425 MG PO BID, CAP 01/14/17 Ondansetron Hcl* (Zofran*) 4 Mg Tablet, 4 MG GTB Q6H Y for NAUSEA AND OR VOMITING, TAB 01/14/17 Zinc Sulfate* (Zinc Sulfate*) 220 Mg Tablet, 220 MG GTB DAILY, TAB 01/14/17 Cran/Vitc/Mannose/Inulin/Brom (Uti-Stat Liquid) 3,875 Mg/30 Ml Liquid, 3875 MG GTB DAILY 01/14/17 Acetaminophen* (Acetaminophen*) 650 Mg Tablet, 650 MG PO TRACH CHANGE, #30 TAB GIVE 30 MIN PRIOR 01/14/17 Famotidine* (Pepcid*) 20 Mg Tablet, 20 MG GTB BID, #60 TAB 01/14/17 Ferrous Sulfate (Ferrous Sulfate) 300 Mg/5 Ml Liquid, 330 MG GTB BID 01/14/17 Chlorhexidine Gluconate (Peridex) 473 Ml Mouthwash, 15 ML MM Q12, BOTTLE 01/14/17 Metoclopramide* (Reglan*) 10 Mg/10 Ml Soln, 10 MG GTB Q6, ML 01/14/17 Docusate Sodium* (Colace*) 100 Mg Capsule, 100 MG GTB QHS, #30 CAP 12/16/16 Bisacodyl* (Bisacodyl*) 10 Mg Supp, 10 MG CA DAILY Y for PRN, SUPP 12/16/16 Sod Phosphate/Sod Biphosphate* (Fleet* Enema Pediatric) 66.6 Ml Soln, 66.6 ML CA Q2DAYS Y for CONSTIPATION, ENEMA 12/16/16 Magnesium Hydroxide* (Milk Of Magnesia*) 400 Mg/5 Ml Oral.susp, 30 ML GTB DAILY , ML 12/16/16 Multivit &Minerals/Ferrous Fum (MULTIVITAMIN LIQUID) 9 Mg/15 Ml Liquid, 5 ML GTB DAILY 12/16/16 Ascorbic Acid (Vitamin C) 500 Mg Tab, 500 MG GTB DAILY, TAB 12/16/16 Acetaminophen* (Tylenol*) 500 Mg Tab, 1000 MG GTB Q4H Y for MODERATE PAIN 4-11/15 , TAB 12/16/16 Acetaminophen* (Tylenol*) 325 Mg Tablet, 650 MG GTB Q4H Y for MILD PAIN LEVEL 1- 3, TAB FOR FEVER 101 AND ABOVE,FOR TRACH TUBE CHANGE 12/16/16 Levetiracetam* (Keppra* (Ped)) 100 Mg/Ml Liq, 15 ML GTB BID for 30 Days, BOTTLE 12/16/16 Metoprolol Tartrate* (Lopressor*) 25 Mg Tab, 12.5 MG GTB BID, #60 TAB HOLD IF SBP<110 12/16/16 Lansoprazole* (Lansoprazole*) 30 Mg Capsule.dr, 30 MG GTB DAILY, CAP 12/16/16 Enoxaparin Sodium* (Lovenox*) 30 Mg/0.3 Ml Disp.syrin, 30 MG SQ DAILY, SYR 12/16/16 Aspirin* (Aspirin* EC) 81 Mg Tablet.dr, 81 MG GTB DAILY, TAB 12/16/16 Discontinued Reported Medications Cranberry Extract (Cranberry) 425 Mg Capsule, 425 MG GTB BID, CAP 12/16/16 Ferrous Sulfate (Ferrous Sulfate) 220 Mg/5 Ml Solution, 220 MG GTB DAILY 12/16/16 Ondansetron Hcl* (Zofran*) 4 Mg Tablet, 4 MG GTB Q6H Y for NAUSEA AND OR VOMITING, TAB 12/16/16 Metoclopramide* (Reglan*) 10 Mg/10 Ml Soln, 5 MG GTB Q8, ML 12/16/16 Allergies Allergies: Coded Allergies: No Known Drug Allergy (Unverified Allergy, Unknown, 01/14/17) PMhx/Soc History of Surgery: Yes (trache / g tube) Anesthesia Reaction: No Hx Neurological Disorder: Yes (encephalopathy) Hx Respiratory Disorders: Yes (trached) Hx Cardiac Disorders: Yes (CPA) Hx Psychiatric Problems: Yes (schizophrenic) Hx Miscellaneous Medical Probl: No Hx Alcohol Use: No Hx Substance Use: No Hx Tobacco Use: No Smoking Status: Unknown if ever smoked FmHx Unable to obtain Physical Exam Vitals Vital Signs Date Time Temp Pulse Resp B/P Pulse Ox O2 Delivery O2 Flow Rate FiO2 01/14/17 11:00 106 20 100 50 01/14/17 10:00 50 01/14/17 09:20 99.6 110 18 127/96 99 01/14/17 09:08 99.6 110 18 127/96 99 Mechanical Ventilator 01/14/17 09:00 106 32 100 50 Physical Exam Const: Chronically ill Head: Atraumatic Eyes: Normal Conjunctiva ENT: Tracheostomy in place Neck: Full range of motion..~ No meningismus. Resp: Clear to auscultation bilaterally Cardio: Regular rate and rhythm, no murmurs Abd: Soft, non tender, non distended. Normal bowel sounds Skin: Pale skin Back: No midline or flank tenderness Ext: Contractures Neur: Awake but does not follow commands Result Diagram: 01/14/1715 01/14/1715 Results 24 hrs Laboratory Tests Test 01/14/17 09:15 White Blood Count 11.010^3/ul Red Blood Count 4.4610^6/ul Hemoglobin 12.3g/dl Hematocrit 38.1% Mean Corpuscular Volume 85.4fl Mean Corpuscular Hemoglobin 27.6pg Mean Corpuscular Hemoglobin Concent 32.3g/dl Red Cell Distribution Width 15.4% Platelet Count 65019^3/UL Mean Platelet Volume 10.7fl Neutrophils % 84.0% Lymphocytes % 10.3% Monocytes % 4.1% Eosinophils % 0.7% Basophils % 0.5% Nucleated Red Blood Cells % 0.0/100WBC Neutrophils # 9.310^3/ul Lymphocytes # 1.110^3/ul Monocytes # 0.510^3/ul Eosinophils # 0.110^3/ul Basophils # 0.110^3/ul Nucleated Red Blood Cells # 0.010^3/ul Prothrombin Time 11.4Sec Prothrombin Time Ratio 0.9 INR International Normalized Ratio 0.83 Activated Partial Thromboplast Time 25.5Sec Sodium Level 146mmol/L Potassium Level 3.6mmol/L Chloride Level 97mmol/L Carbon Dioxide Level 29mmol/L Anion Gap 24 Blood Urea Nitrogen 25mg/dl Creatinine 0.60mg/dl Glucose Level 111mg/dl Calcium Level 10.0mg/dl Total Bilirubin 0.1mg/dl Direct Bilirubin 0.00mg/dl Indirect Bilirubin 0.1mg/dl Aspartate Amino Transf (AST/SGOT) 49IU/L Alanine Aminotransferase (ALT/SGPT) 41IU/L Alkaline Phosphatase 92IU/L Troponin I < 0.012ng/ml Total Protein 8.6g/dl Albumin 4.3g/dl Globulin 4.30g/dl Albumin/Globulin Ratio 1.00 Current Medications Medications (Trade) Dose Ordered Sig/Kevin Route PRN Reason Start Time Stop Time Status Last Admin Dose Admin Pantoprazole/ Sodium Chloride (Protonix Iv/NS) 100 ml @ 400 mls/hr ONCE STAT IVPB 01/14/17 08:56 01/14/17 09:10 DC 01/14/17 10:06 Ondansetron HCl (Zofran Inj) 4 mg ER BRIDGE PRN IV NAUSEA AND/OR VOMITING 01/14/17 09:30 01/15/17 09:29 Acetaminophen (Tylenol Tab) 650 mg ER BRIDGE PRN PO MILD PAIN/FEVER 01/14/17 09:30 01/15/17 09:29 Procedures/MDM EKG read by me: Rate/Rhythm: Sinus tachycardia at a rate of 110 Intervals: Normal Impression: Sinus tachycardia without ischemia PROCEDURE: XR Chest. CLINICAL INDICATION: Chest pain TECHNIQUE: Single portable view of the chest was obtained COMPARISON: 12/18/16 FINDINGS: The heart and mediastinum are within normal limits. There is a tracheostomy tube in place. There are mild bibasilar atelectatic changes. The lungs are otherwise clear. There is no pleural effusion or pneumothorax. RPTAT: AA IMPRESSION: Mild bibasilar atelectatic changes. .Vivek Hansen MD, Date Time Electronically viewed and signed by .Vivek Hansen MD, on 01/14/2017 10: 47 Patient is a 46-year-old male with tracheostomy and ventilator who presents with GI bleeding. The patient was given 80 mg of Protonix IV. The patient is a DNR. The patient will be admitted to a telemetry bed under the care of Dr. Courtney. The patient is a poor prognosis given his comorbidities. Critical Care: Time: 35 minutes excluding all billable procedures. Treatments/Evaluations: Close monitoring and treatment of unstable vital signs, cardiorespiratory, and neurologic status, while maintaining tight balance of fluid, respiratory, and cardiac interventions. Departure Diagnosis: Primary Impression: Hematemesis Qualified Code: K92.0 - Hematemesis with nausea Condition: Serious LÓPEZ MARIN MD Jan 14, 2017 12:36
--- NOTE | 2017-01-14 16:58 | HP ---
Date/Time of Note Date/Time of Note DATE: 01/14/17 TIME: 16:50 Assessment/Plan VTE Prophylaxis VTE Prophylaxis Intervention: SCD's Assessment/Plan Assessment/Plan -Hematemesis, possible GI bleed, continue Protonix. Dr De León is asked to see patient in GI consultation. -Anoxic encephalopathy status post cardiac arrest since 2009 -Ventilator dependent respiratory failure -Dysphagia with PEG -Seizure disorder, continue Keppra. -Schizophrenia -Multiple wounds Further recommendations based on clinical course. Plan of care discussed with Dr. Courtney. HPI/ROS Admit Date/Time Admit Date/Time Hx of Present Illness The patient is unfortunate 46-year-old male with anoxic encephalopathy, status post cardiac arrest after suicide attempt in 2009. Patient is ventilated later dependent with past medical history including schizophrenia seizure disorder, dysphagia with PEG. [facility] for coffee-ground emesis. Patient was diagnosed with possible GI bleed and was started on Protonix drip. Patient underwent chest x-ray which did not reveal any infiltrates, however patient's white blood cells a slightly elevated. Patient slightly tachycardic with temperature of 99.6 on admission. Patient will be admitted for further evaluation and management to telemetry floor. ROS 10 point review of systems is negative unless for mentioned in HPI. PMH/Family/Social Past Medical History Per HPI Past Surgical History Status post tracheostomy, status post G-tube placement Social History Smoking Status: Unknown if ever smoked Exam/Review of Systems Vital Signs Vitals Vital Signs Date Time Temp Pulse Resp B/P Pulse Ox O2 Delivery O2 Flow Rate FiO2 01/14/17 13:30 106 18 128/97 98 Mechanical Ventilator 01/14/17 11:00 50 01/14/17 09:20 99.6 Exam Constitutional: non-verbal Head: atraumatic, normocephalic Neck: supple Respiratory: crackles/rales Cardiovascular: nl pulses Gastrointestinal: non-tender, other (G-tube), soft Genitourinary - Male: nl penis Musculoskeletal: nl extremities to inspection Extremities: normal pulses Neurological: other (Anoxic encephalopathy, contracted extremities) Skin: other (Multiple wounds) Labs Result Diagram: 01/14/1715 01/14/17 0915 JH WISDOM Jan 14, 2017 16:58
[2017-01-14] MEDS ORDERED: NACL 0.9% 3 ML SYG IV SCH (17:30)
[2017-01-14] MEDS ORDERED: morphine 2 MG INJ IV PRN (17:30)
[2017-01-14] MEDS: D5W-0.45 NACL + KCL 20 MEQ 1,000 ML IV SCH (18:43)
[2017-01-14] MEDS ORDERED: LEVETIRACETAM IV 1,500 MG in SOD CHLORIDE 0.9% 100 ML IVPB SCH (21:00)
[2017-01-14] MEDS ORDERED: LEVETIRACETAM IV 750 MG in SOD CHLORIDE 0.9% 100 ML IVPB SCH (21:00)
[2017-01-14] MEDS: LEVETIRACETAM 1500 MG (PMX) 100 ML IVPB SCH (21:11)
[2017-01-15] VITALS (24 sets, daily range): BP systolic 104–123; BP diastolic 66–82; PULSE 76–90; RESP 16–26
--- NOTE | 2017-01-15 04:27 | CONS ---
DATE OF ADMISSION: 01/14/2017 DATE OF CONSULTATION: 01/14/[address] Courtney, thank you for asking me to see Mr. Maher in GI consultation. HISTORY OF PRESENT ILLNESS: The patient is a 46-year-old, [place] gentleman who, at this time, is status post tracheostomy and PEG placement. There was a history that he had been having vomited blood, and, hence, he was admitted to the hospital, and GI consultation is requested. No history of vomiting bright red blood. No history of passing blood in the vomit or blood from the rectum. MEDICATION: Prior to admission, includes: 1. Zofran. 2. Zinc. 3. Urostat. 4. Acetaminophen. 5. Pepcid. 6. Ferrous sulfate. 7. Peridex. 8. Reglan. 9. Colace. 10. Bisacodyl. 11. Fleet's Milk of Magnesia. 12. Keppra. 13. Lopressor. 14. Lovenox. 15. Lansoprazole. 16. Reglan. PHYSICAL EXAMINATION: GENERAL: The patient is a 46-year-old [place] gentleman who, at this time, not alert, he is unresponsive, status post tracheostomy. VITALS: Blood pressure is 129/70. Pulse is 88. HEART: Normal heart sounds. LUNGS: Normal breath sounds. ABDOMEN: Unremarkable. Upon aspiration of the gastric content, the content did not show any blood. LABORATORY: Hemoglobin 12.3, WBC 11,000, platelet count 350,000. IMPRESSION: The patient is presenting with a history of vomiting blood. Hemoglobin is stable. Rule out gastrostomy site, ulcer disease, gastritis, esophagitis, history of seizure disorder, respiratory failure status post trach and PEG and other problems as mentioned above. PLAN: Recommend continue Protonix of 40 mg IV q.12 hours. If the patient was to bleed, at that time, I would recommend upper endoscopy. Once again, doctor, thank you for this consultation. Dictated By: Reid Walton MD /[email or web address]/layton /Document#: [id number] CC: Guru Courtney MD;*EndCC*
[2017-01-15] MEDS: D5W-0.45 NACL + KCL 20 MEQ 1,000 ML IV SCH ×3 (05:49→19:50)
[2017-01-15] MEDS ORDERED: PANTOPRAZOLE 40 MG INJ IV SCH (06:00)
[2017-01-15 09:25] LABS: BASOPHILS % 0.5 % (0.0-2.0); EOSINOPHILS # 0.1 10^3/ul (0.0-0.5); EOSINOPHILS % 1.7 % (0.0-7.0); HEMATOCRIT 32.5 % (42.0-52.0); HEMOGLOBIN 10.6 g/dl (14.0-18.0); MEAN CORPUSCULAR HEMOGLOBIN 27.7 pg (29.0-33.0); MEAN CORPUSCULAR HGB CONC 32.6 g/dl (32.0-37.0); MEAN CORPUSCULAR VOLUME 84.9 fl (82.0-101.0); MEAN PLATELET VOLUME 10.2 fl (7.4-10.4); MONOCYTE # 0.4 10^3/ul (0.3-0.9); MONOCYTES % 6.6 % (0.0-11.0); NEUTROPHILS % 60.7 % (39.0-77.0); PLATELET COUNT 315 10^3/UL (140-415); RED BLOOD COUNT 3.83 10^6/ul (4.70-6.10); RED CELL DISTRIBUTION WIDTH 15.5 % (11.5-14.5); WHITE BLOOD COUNT 6.6 10^3/ul (4.8-10.8)
[2017-01-15] MEDS: LEVETIRACETAM 1500 MG (PMX) 100 ML IVPB SCH ×2 (09:46→21:10)
[2017-01-15 09:50] LABS: ALBUMIN 3.7 g/dl (3.3-4.9); ALBUMIN/GLOBULIN RATIO 1.08; BILIRUBIN,INDIRECT 0.2 mg/dl (0-1.1); BILIRUBIN,TOTAL 0.2 mg/dl (0.2-1.3); CALCIUM 9.1 mg/dl (8.4-10.2); CREATININE 0.61 mg/dl (0.61-1.24); MAGNESIUM 2.3 mg/dl (1.7-2.5); POTASSIUM 3.7 mmol/L (3.5-5.1); TOTAL PROTEIN 7.1 g/dl (6.1-8.1)
--- NOTE | 2017-01-15 14:14 | PN ---
Date/Time of Note Date/Time of Note DATE: 01/15/17 TIME: 14:08 Assessment/Plan VTE Prophylaxis VTE Prophylaxis Intervention: other Lines/Catheters IV C[facility]ter Type (from [facility]): Peripheral IV Urinary Cath still in place: No Assessment/Plan Assessment/Plan DO NOT RESUSCITATE -Hematemesis, possible GI bleed, continue Protonix. Dr De León is asked to see patient in GI consultation. -Anoxic encephalopathy status post cardiac arrest since 2009 -Ventilator dependent respiratory failure - pulmonary consult- Dr Alvarez notfied -Dysphagia with PEG - aspiration precautions -Seizure disorder, continue Keppra. - seizure precautions -Schizophrenia -Multiple wounds - wound care - wound care consult Further recommendations based on clinical course. Plan of care discussed with Dr. Courtney. Subjective 24 Hr Interval Summary Free Text/Dictation afebrile, Gi seen patient, no obvious bleeding noted dw staff Gastrointestinal: other (possible gi bleed) Exam/Review of Systems Vital Signs Vitals Vital Signs Date Time Temp Pulse Resp B/P Pulse Ox O2 Delivery O2 Flow Rate FiO2 01/15/17 12:20 79 01/15/17 11:36 16 98 35 01/15/17 11:33 98.9 123/82 01/14/17 18:43 Mechanical Ventilator Intake and Output 01/14/17 01/14/17 01/15/17 15:00 23:00 07:00 Intake Total 100 ml Balance 100 ml Exam Constitutional: alert Respiratory: diminished breath sounds Cardiovascular: nl pulses, regular rate and rhythm Gastrointestinal: soft Musculoskeletal: muscle weakness, other (contracted BUE/BLE) Neurological: lethargic Results Result Diagram: 01/15/17 0852 01/15/17 0852 Results 24 hrs Laboratory Tests Test 01/15/17 08:52 White Blood Count 6.6 # Red Blood Count 3.83 L Hemoglobin 10.6 L Hematocrit 32.5 L Mean Corpuscular Volume 84.9 Mean Corpuscular Hemoglobin 27.7 L Mean Corpuscular Hemoglobin Concent 32.6 Red Cell Distribution Width 15.5 H Platelet Count 315 Mean Platelet Volume 10.2 Neutrophils % 60.7 Lymphocytes % 30.0 Monocytes % 6.6 Eosinophils % 1.7 Basophils % 0.5 Nucleated Red Blood Cells % 0.0 Neutrophils # 4.0 Lymphocytes # 2.0 Monocytes # 0.4 Eosinophils # 0.1 Basophils # 0.0 Nucleated Red Blood Cells # 0.0 Sodium Level 145 H Potassium Level 3.7 Chloride Level 103 Carbon Dioxide Level 27 Anion Gap 19 H Blood Urea Nitrogen 18 Creatinine 0.61 Glucose Level 108 Calcium Level 9.1 Magnesium Level 2.3 Total Bilirubin 0.2 Direct Bilirubin 0.00 Indirect Bilirubin 0.2 Aspartate Amino Transf (AST/SGOT) 40 Alanine Aminotransferase (ALT/SGPT) 46 Alkaline Phosphatase 82 Total Protein 7.1 # Albumin 3.7 Globulin 3.40 H Albumin/Globulin Ratio 1.08 Medications Medications Current Medications Potassium Chloride/Dextrose/ Sod Cl (D5-1/2ns + KCl 20 Meq) 1,000 ml @ 80 mls/ hr [id number] IV Last administered on 01/15/17 05:49; Admin Dose 80 MLS/HR; Start 01/14/17 at 17:01 Ondansetron HCl (Zofran Inj) 4 mg Q6H PRN IV NAUSEA AND/OR VOMITING; Start 01/14 at 17:30 Morphine Sulfate (morphine) 2 mg Q4H PRN IV PAIN LEVEL 7-10; Start 01/14/17 at 17:30 Pantoprazole 40 mg 40 mg DAILY@06 IV Last administered on 01/15/17 05:52; Admin Dose 40 MG; Start 01/15/17 at 06:00 Levetiracetam (Keppra 1,500mg/ 100ml (Pmx)) 100 ml @ 400 mls/hr Q12 IVPB Last administered on 01/15/17 09:46; Admin Dose 400 MLS/HR; Start 01/14/17 at 21:00 SHELLEY HERNANDEZ Jan 15, 2017 14:14
[2017-01-15] MEDS: PANTOPRAZOLE 40 MG INJ IV SCH (21:10)
[2017-01-16] VITALS (25 sets, daily range): BP systolic 99–120; BP diastolic 60–84; PULSE 68–77; RESP 16–25
--- NOTE | 2017-01-16 04:06 | PN ---
DATE: 01/16/2017 SUBJECTIVE DATA: The patient is nonverbal, he cannot complain. OBJECTIVE DATA: GENERAL: He is alert, he is intubated. He is unresponsive. VITAL SIGNS: Pulse is 92, blood pressure is 110/78 CARDIOVASCULAR: Normal heart sounds. RESPIRATORY: Normal breath sounds. ABDOMEN: Soft. He has a G-tube in place. LABORATORY AND DIAGNOSTIC DATA: Hemoglobin dropped to 10.6 from 12.3, WBC 6600. The BUN is 18, creatinine is 0.61. IMPRESSION: The patient has had stable upper gastrointestinal bleeding, possible gastritis, possible esophagitis. PLAN: At this time, continue proton pump inhibitor therapy. Dictated By: Reid Walton MD /[email or web address]/sylvain /Document#: [id number] CC: Reid Walton MD; Dr. Courtney;*End*
[2017-01-16 07:02] LABS: BASOPHILS % 0.3 % (0.0-2.0); EOSINOPHILS # 0.2 10^3/ul (0.0-0.5); HEMATOCRIT 33.5 % (42.0-52.0); HEMOGLOBIN 10.8 g/dl (14.0-18.0); LYMPHOCYTES # 2.3 10^3/ul (0.8-2.9); LYMPHOCYTES % 26.4 % (15.0-51.0); MEAN CORPUSCULAR HEMOGLOBIN 27.6 pg (29.0-33.0); MEAN CORPUSCULAR HGB CONC 32.2 g/dl (32.0-37.0); MEAN CORPUSCULAR VOLUME 85.7 fl (82.0-101.0); MEAN PLATELET VOLUME 11.4 fl (7.4-10.4); MONOCYTE # 0.5 10^3/ul (0.3-0.9); MONOCYTES % 5.3 % (0.0-11.0); NEUTROPHIL # 5.8 10^3/ul (1.6-7.5); NEUTROPHILS % 65.7 % (39.0-77.0); POSITIVE DIFF @See below; RED BLOOD COUNT 3.91 10^6/ul (4.70-6.10); RED CELL DISTRIBUTION WIDTH 15.5 % (11.5-14.5); WHITE BLOOD COUNT 8.9 10^3/ul (4.8-10.8)
[2017-01-16 07:15] LABS: PLATELET COUNT 205 10^3/UL (140-415)
[2017-01-16 07:20] LABS: CALCIUM 9.2 mg/dl (8.4-10.2); CREATININE 0.57 mg/dl (0.61-1.24); POTASSIUM 4.3 mmol/L (3.5-5.1)
[2017-01-16] MEDS: LEVETIRACETAM 1500 MG (PMX) 100 ML IVPB SCH ×2 (09:36→22:28)
[2017-01-16] MEDS: D5W-0.45 NACL + KCL 20 MEQ 1,000 ML IV SCH (09:37)
[2017-01-16] MEDS: PANTOPRAZOLE 40 MG INJ IV SCH ×2 (09:37→21:25)
--- NOTE | 2017-01-16 13:06 | PN ---
Date/Time of Note Date/Time of Note DATE: 01/16/17 TIME: 13:04 Assessment/Plan VTE Prophylaxis VTE Prophylaxis Intervention: SCD's Lines/Catheters IV [facility] Type ([facility]): Peripheral IV Urinary Cath still in place: No Assessment/Plan Chief Complaint/Hosp Course Patient remains hemodynamically stable, no acute events overnight Assessment/Plan -Hematemesis, possible GI bleed, continue Protonix. Dr De León is following in GI consultation. -Anoxic encephalopathy status post cardiac arrest since 2009 -Ventilator dependent respiratory failure -Dysphagia with PEG -Seizure disorder, continue Keppra. -Schizophrenia -Multiple wounds, continue current wound care, offloading. Further recommendations based on clinical course. Plan of care discussed with Dr. Courtney. Problems: Exam/Review of Systems Vital Signs Vitals Vital Signs Date Time Temp Pulse Resp B/P Pulse Ox O2 Delivery O2 Flow Rate FiO2 01/16/17 12:59 74 01/16/17 11:28 17 98 35 01/16/17 11:16 98.9 120/84 01/14/17 18:43 Mechanical Ventilator Intake and Output 01/15/17 01/15/17 01/16/17 15:00 23:00 07:00 Intake Total 100 ml 1120 ml Output Total 500 ml 600 ml Balance -400 ml 520 ml Exam Constitutional: non-verbal Respiratory: crackles/rales Cardiovascular: nl pulses Gastrointestinal: non-tender, other (G-tube), soft Extremities: normal pulses Neurological: other (Anoxic encephalopathy, contracted extremities) Skin: other (Multiple wounds) Results Result Diagram: 01/16/17 0635 01/16/17 0635 Results 24 hrs Laboratory Tests Test 01/16/17 06:35 White Blood Count 8.9 # Red Blood Count 3.91 L Hemoglobin 10.8 L Hematocrit 33.5 L Mean Corpuscular Volume 85.7 Mean Corpuscular Hemoglobin 27.6 L Mean Corpuscular Hemoglobin Concent 32.2 Red Cell Distribution Width 15.5 H Platelet Count 205 # Mean Platelet Volume 11.4 H Neutrophils % 65.7 Lymphocytes % 26.4 Monocytes % 5.3 Eosinophils % 2.0 Basophils % 0.3 Nucleated Red Blood Cells % 0.0 Neutrophils # 5.8 Lymphocytes # 2.3 Monocytes # 0.5 Eosinophils # 0.2 Basophils # 0.0 Nucleated Red Blood Cells # 0.0 Sodium Level 144 Potassium Level 4.3 Chloride Level 105 Carbon Dioxide Level 26 Anion Gap 17 H Blood Urea Nitrogen 17 Creatinine 0.57 L Glucose Level 102 Calcium Level 9.2 Medications Medications Current Medications Potassium Chloride/Dextrose/ Sod Cl (D5-1/2ns + KCl 20 Meq) 1,000 ml @ 80 mls/ hr [id number] IV Last administered on 01/16/17 09:37; Admin Dose 80 MLS/HR; Start 01/14/17 at 17:01 Ondansetron HCl (Zofran Inj) 4 mg Q6H PRN IV NAUSEA AND/OR VOMITING; Start 01/14 at 17:30 Morphine Sulfate 2 mg 2 mg Q4H PRN IV PAIN LEVEL 7-10; Start 01/14/17 at 17:30 Levetiracetam (Keppra 1,500mg/ 100ml (Pmx)) 100 ml @ 400 mls/hr Q12 IVPB Last administered on 01/16/17 09:36; Admin Dose 400 MLS/HR; Start 01/14/17 at 21:00 Pantoprazole (Protonix Iv) 40 mg Q12 IV Last administered on 01/16/17 09:37; Admin Dose 40 MG; Start 01/15/17 at 21:00 JH WISDOM Jan 16, 2017 13:06
--- NOTE | 2017-01-16 15:49 | CONS ---
Date/Time of Note Date/Time of Note DATE: 01/16/17 TIME: 15:46 Assessment/Plan Assessment/Plan Chief Complaint/Hosp Course Assessment 1. Rule out acute GI bleed 2. Vent dependent respiratory failure 3. Possible aspiration pneumonia 4. Chronic vegetative state 5. History of dysphagia with G-tube Plan 1. Continue mechanical ventilation 2. Continue GI recommendations 3. Continue proton pump inhibitor 4. DVT GI prophylaxis Problems: Consultation Date/Type/Reason Admit Date/Time Date of Consultation: Jan 16, 2017 Type of Consultation: Pulmonary Reason for Consultation Ventilator management Hx of Present Illness Unfortunate 46-year-old gentleman with a history of cardiac arrest following attempted suicide in 2009. Chronic vegetative state. Transferred from senior care facility for evaluation of coffee-ground emesis. No hemodynamic instability. Patient is vent dependent chronic vegetative state. On admission was noted to have mild leukocytosis and low-grade temperature. Neurologically he appears at his baseline. Since admission he has had GI evaluation for possible endoscopy. Currently remains relatively stable on mechanical ventilation. Currently unable to perform Gastrointestinal: other (possible gi bleed) Past Medical History Vent dependent respiratory failure History of schizophrenia Chronic vegetative state Dysphagia with G-tube Recurrent sepsis Social History Smoking Status: Unknown if ever smoked Exam/Review of Systems Vital Signs Vitals Vital Signs Date Time Temp Pulse Resp B/P Pulse Ox O2 Delivery O2 Flow Rate FiO2 01/16/17 15:16 98.3 66 16 111/75 99 01/16/17 13:22 35 01/14/17 18:43 Mechanical Ventilator Intake and Output 01/15/17 01/15/17 01/16/17 14:59 22:59 06:59 Intake Total 100 ml 1120 ml Output Total 500 ml 600 ml Balance -400 ml 520 ml Exam PHYSICAL EXAMINATION GENERAL: Chronically ill-appearing gentleman on mechanical ventilation via tracheostomy VITAL SIGNS: see below. HEENT: Pupils equal, round, and reactive to light. Tracheostomy site clean and intact. CARDIAC: S1, S2, 1/6 systolic ejection murmur CHEST: Diminished air entry bilaterally. ABDOMEN: Mildly distended. Bowel sounds present no guarding or rebound EXTREMITIES: No cyanosis, clubbing edema +1 NEUROLOGIC: Generalized weakness, contractures Results Result Diagram: 01/16/17 0635 01/16/17 0635 Results 24 hrs Laboratory Tests Test 01/16/17 06:35 White Blood Count 8.9 # Red Blood Count 3.91 L Hemoglobin 10.8 L Hematocrit 33.5 L Mean Corpuscular Volume 85.7 Mean Corpuscular Hemoglobin 27.6 L Mean Corpuscular Hemoglobin Concent 32.2 Red Cell Distribution Width 15.5 H Platelet Count 205 # Mean Platelet Volume 11.4 H Neutrophils % 65.7 Lymphocytes % 26.4 Monocytes % 5.3 Eosinophils % 2.0 Basophils % 0.3 Nucleated Red Blood Cells % 0.0 Neutrophils # 5.8 Lymphocytes # 2.3 Monocytes # 0.5 Eosinophils # 0.2 Basophils # 0.0 Nucleated Red Blood Cells # 0.0 Sodium Level 144 Potassium Level 4.3 Chloride Level 105 Carbon Dioxide Level 26 Anion Gap 17 H Blood Urea Nitrogen 17 Creatinine 0.57 L Glucose Level 102 Calcium Level 9.2 Medications Medications Current Medications Potassium Chloride/Dextrose/ Sod Cl (D5-1/2ns + KCl 20 Meq) 1,000 ml @ 80 mls/ hr [id number] IV Last administered on 01/16/17 09:37; Admin Dose 80 MLS/HR; Start 01/14/17 at 17:01 Ondansetron HCl (Zofran Inj) 4 mg Q6H PRN IV NAUSEA AND/OR VOMITING; Start 01/14 at 17:30 Morphine Sulfate 2 mg 2 mg Q4H PRN IV PAIN LEVEL 7-10; Start 01/14/17 at 17:30 Levetiracetam (Keppra 1,500mg/ 100ml (Pmx)) 100 ml @ 400 mls/hr Q12 IVPB Last administered on 01/16/17 09:36; Admin Dose 400 MLS/HR; Start 01/14/17 at 21:00 Pantoprazole (Protonix Iv) 40 mg Q12 IV Last administered on 01/16/17 09:37; Admin Dose 40 MG; Start 01/15/17 at 21:00 DONTE NEWTON MD, [facility] Jan 16, 2017 15:49
[2017-01-17] VITALS (22 sets, daily range): BP systolic 101–167; BP diastolic 62–80; PULSE 68–100; RESP 16–89
[2017-01-17 06:22] LABS: BASOPHILS % 0.5 % (0.0-2.0); EOSINOPHILS # 0.2 10^3/ul (0.0-0.5); EOSINOPHILS % 2.1 % (0.0-7.0); HEMATOCRIT 34.7 % (42.0-52.0); HEMOGLOBIN 10.7 g/dl (14.0-18.0); LYMPHOCYTES # 2.2 10^3/ul (0.8-2.9); LYMPHOCYTES % 28.7 % (15.0-51.0); MEAN CORPUSCULAR HEMOGLOBIN 26.6 pg (29.0-33.0); MEAN CORPUSCULAR HGB CONC 30.8 g/dl (32.0-37.0); MEAN CORPUSCULAR VOLUME 86.3 fl (82.0-101.0); MEAN PLATELET VOLUME 11.4 fl (7.4-10.4); MONOCYTE # 0.5 10^3/ul (0.3-0.9); MONOCYTES % 6.3 % (0.0-11.0); NEUTROPHIL # 4.7 10^3/ul (1.6-7.5); PLATELET COUNT 256 10^3/UL (140-415); RED BLOOD COUNT 4.02 10^6/ul (4.70-6.10); RED CELL DISTRIBUTION WIDTH 15.5 % (11.5-14.5); WHITE BLOOD COUNT 7.5 10^3/ul (4.8-10.8)
[2017-01-17 06:54] LABS: CALCIUM 9.3 mg/dl (8.4-10.2); CREATININE 0.56 mg/dl (0.61-1.24); POTASSIUM 4.1 mmol/L (3.5-5.1)
[2017-01-17] MEDS: D5W-0.45 NACL + KCL 20 MEQ 1,000 ML IV SCH ×3 (07:31→20:01)
[2017-01-17] MEDS: LEVETIRACETAM 1500 MG (PMX) 100 ML IVPB SCH ×2 (09:16→21:00)
[2017-01-17] MEDS: PANTOPRAZOLE 40 MG INJ IV SCH ×2 (09:16→21:00)
--- NOTE | 2017-01-17 13:08 | CONS ---
Date/Time of Note Date/Time of Note DATE: 01/17/17 TIME: 13:07 Consult Date/Type/Reason Admit Date/Time Jan 14, 2017 at 09:02 Initial Consult Date 01/16/17 Type of Consultation: Pulmonary Subjective Patient appears comfortable this morning. Objective Vital Signs Date Time Temp Pulse Resp B/P Pulse Ox O2 Delivery O2 Flow Rate FiO2 01/17/17 12:18 77 01/17/17 11:30 98.4 19 124/68 98 01/17/17 11:15 35 01/14/17 18:43 Mechanical Ventilator Intake and Output 01/16/17 01/16/17 01/17/17 15:00 23:00 07:00 Intake Total 1980 ml 1820 ml Output Total 300 ml 400 ml Balance 1680 ml 1420 ml Exam PHYSICAL EXAMINATION GENERAL: Chronically ill-appearing gentleman on mechanical ventilation via tracheostomy VITAL SIGNS: see below. HEENT: Pupils equal, round, and reactive to light. Tracheostomy site clean and intact. CARDIAC: S1, S2, 1/6 systolic ejection murmur CHEST: Diminished air entry bilaterally. ABDOMEN: Mildly distended. Bowel sounds present no guarding or rebound EXTREMITIES: No cyanosis, clubbing edema +1 NEUROLOGIC: Generalized weakness, contractures Results/Medications Result Diagram: 01/17/17 0535 01/17/17 0535 Results 24 hrs Laboratory Tests Test 01/17/17 05:35 White Blood Count 7.5 Red Blood Count 4.02 L Hemoglobin 10.7 L Hematocrit 34.7 L Mean Corpuscular Volume 86.3 Mean Corpuscular Hemoglobin 26.6 L Mean Corpuscular Hemoglobin Concent 30.8 L Red Cell Distribution Width 15.5 H Platelet Count 256 # Mean Platelet Volume 11.4 H Neutrophils % 62.0 Lymphocytes % 28.7 Monocytes % 6.3 Eosinophils % 2.1 Basophils % 0.5 Nucleated Red Blood Cells % 0.0 Neutrophils # 4.7 Lymphocytes # 2.2 Monocytes # 0.5 Eosinophils # 0.2 Basophils # 0.0 Nucleated Red Blood Cells # 0.0 Sodium Level 140 Potassium Level 4.1 Chloride Level 105 Carbon Dioxide Level 25 Anion Gap 14 Blood Urea Nitrogen 13 Creatinine 0.56 L Glucose Level 98 Calcium Level 9.3 Medications Current Medications Potassium Chloride/Dextrose/ Sod Cl (D5-1/2ns + KCl 20 Meq) 1,000 ml @ 80 mls/ hr [id number] IV Last administered on 01/17/17 09:16; Admin Dose 80 MLS/HR; Start 01/14/17 at 17:01 Ondansetron HCl (Zofran Inj) 4 mg Q6H PRN IV NAUSEA AND/OR VOMITING; Start 01/14 at 17:30 Morphine Sulfate 2 mg 2 mg Q4H PRN IV PAIN LEVEL 7-10; Start 01/14/17 at 17:30 Levetiracetam (Keppra 1,500mg/ 100ml (Pmx)) 100 ml @ 400 mls/hr Q12 IVPB Last administered on 01/17/17 09:16; Admin Dose 400 MLS/HR; Start 01/14/17 at 21:00 Pantoprazole (Protonix Iv) 40 mg Q12 IV Last administered on 01/17/17 09:16; Admin Dose 40 MG; Start 01/15/17 at 21:00 Assessment/Plan Chief Complaint/Hosp Course Assessment 1. Rule out acute GI bleed 2. Vent dependent respiratory failure 3. Possible aspiration pneumonia 4. Chronic vegetative state 5. History of dysphagia with G-tube Plan 1. Continue mechanical ventilation 2. Continue GI recommendations 3. Continue proton pump inhibitor 4. DVT GI prophylaxis Discharge planning okay from pulmonary standpoint Problems: DONTE NEWTON MD, [facility] Jan 17, 2017 13:08
--- NOTE | 2017-01-17 15:04 | DS ---
Date/Time of Note Date/Time of Note DATE: 01/17/17 TIME: 15:04 Discharge Summary Admission/Discharge Info Admit Date/Time Jan 14, 2017 at 09:02 Discharge Date/Time Discharge Diagnosis -Hematemesis, possible GI bleed,- resolved continue Protonix. -Anoxic encephalopathy status post cardiac arrest since 2009 -Ventilator dependent respiratory failure -Dysphagia with PEG -Seizure disorder -Schizophrenia -Multiple wounds Patient Condition: Stable Hospital Course The patient is unfortunate 46-year-old male with anoxic encephalopathy, status post cardiac arrest after suicide attempt in 2009. Patient is ventilated later dependent with past medical history including schizophrenia seizure disorder, dysphagia with PEG. Patient was admitted for coffee-ground emesis. Patient was diagnosed with possible GI bleed and was started on Protonix drip.Patient is cleared by GI and pulmonary to transfer to SNF. Constitutional: non-verbal Respiratory: crackles/rales Cardiovascular: nl pulses Gastrointestinal: non-tender, other (G-tube), soft Extremities: normal pulses Neurological: other (Anoxic encephalopathy, contracted extremities) Skin: other (Multiple wounds) Dw dr Walton- pt is not having active GI bleed. Its ok to resume ASA, Lovenox. Patient to transfer to SNF when arrangements are done. dw staff/Dr Courtney Home Meds Reported Medications Ipratropium-Albuterol (Ipratropium-Albuterol) 0.5-3 Mg/3 Ml Ampul.neb, 3 ML INHALATION Q3H Y for WHEEZING AND SOB, #30 VIAL 01/14/17 Ipratropium-Albuterol (Ipratropium-Albuterol) 0.5-3 Mg/3 Ml Ampul.neb, 3 ML INHALATION Q6 Y for WHEEZING AND SOB, #30 VIAL 01/14/17 Cranberry Extract (Cranberry) 425 Mg Capsule, 425 MG PO BID, CAP 01/14/17 Ondansetron Hcl* (Zofran*) 4 Mg Tablet, 4 MG GTB Q6H Y for NAUSEA AND OR VOMITING, TAB 01/14/17 Zinc Sulfate* (Zinc Sulfate*) 220 Mg Tablet, 220 MG GTB DAILY, TAB 01/14/17 Cran/Vitc/Mannose/Inulin/Brom (Uti-Stat Liquid) 3,875 Mg/30 Ml Liquid, 3875 MG GTB DAILY 01/14/17 Acetaminophen* (Acetaminophen*) 650 Mg Tablet, 650 MG PO TRACH CHANGE, #30 TAB GIVE 30 MIN PRIOR 01/14/17 Famotidine* (Pepcid*) 20 Mg Tablet, 20 MG GTB BID, #60 TAB 01/14/17 Ferrous Sulfate (Ferrous Sulfate) 300 Mg/5 Ml Liquid, 330 MG GTB BID 01/14/17 Chlorhexidine Gluconate (Peridex) 473 Ml Mouthwash, 15 ML MM Q12, BOTTLE 01/14/17 Metoclopramide* (Reglan*) 10 Mg/10 Ml Soln, 10 MG GTB Q6, ML 01/14/17 Docusate Sodium* (Colace*) 100 Mg Capsule, 100 MG GTB QHS, #30 CAP 12/16/16 Bisacodyl* (Bisacodyl*) 10 Mg Supp, 10 MG LA DAILY Y for PRN, SUPP 12/16/16 Sod Phosphate/Sod Biphosphate* (Fleet* Enema Pediatric) 66.6 Ml Soln, 66.6 ML LA Q2DAYS Y for CONSTIPATION, ENEMA 12/16/16 Magnesium Hydroxide* (Milk Of Magnesia*) 400 Mg/5 Ml Oral.susp, 30 ML GTB DAILY , ML 12/16/16 Multivit &Minerals/Ferrous Fum (MULTIVITAMIN LIQUID) 9 Mg/15 Ml Liquid, 5 ML GTB DAILY 12/16/16 Ascorbic Acid (Vitamin C) 500 Mg Tab, 500 MG GTB DAILY, TAB 12/16/16 Acetaminophen* (Tylenol*) 500 Mg Tab, 1000 MG GTB Q4H Y for MODERATE PAIN 4-6/10 , TAB 12/16/16 Acetaminophen* (Tylenol*) 325 Mg Tablet, 650 MG GTB Q4H Y for MILD PAIN LEVEL 1- 3, TAB FOR FEVER 101 AND ABOVE,FOR TRACH TUBE CHANGE 12/16/16 Levetiracetam* (Keppra* (Ped)) 100 Mg/Ml Liq, 15 ML GTB BID for 30 Days, BOTTLE 12/16/16 Metoprolol Tartrate* (Lopressor*) 25 Mg Tab, 12.5 MG GTB BID, #60 TAB HOLD IF SBP<110 12/16/16 Lansoprazole* (Lansoprazole*) 30 Mg Capsule.dr, 30 MG GTB DAILY, CAP 12/16/16 Enoxaparin Sodium* (Lovenox*) 30 Mg/0.3 Ml Disp.syrin, 30 MG SQ DAILY, SYR 12/16/16 Aspirin* (Aspirin* EC) 81 Mg Tablet.dr, 81 MG GTB DAILY, TAB 12/16/16 Discontinued Reported Medications Cranberry Extract (Cranberry) 425 Mg Capsule, 425 MG GTB BID, CAP 12/16/16 Ferrous Sulfate (Ferrous Sulfate) 220 Mg/5 Ml Solution, 220 MG GTB DAILY 12/16/16 Ondansetron Hcl* (Zofran*) 4 Mg Tablet, 4 MG GTB Q6H Y for NAUSEA AND OR VOMITING, TAB 12/16/16 Metoclopramide* (Reglan*) 10 Mg/10 Ml Soln, 5 MG GTB Q8, ML 12/16/16 Primary Care Provider Guru Courtney MD Time spent on discharge: > 30 minutes Pending Labs Laboratory Tests Test 01/17/17 05:35 White Blood Count 7.510^3/ul (4.8-10.8) Red Blood Count 4.0210^6/ul (4.70-6.10) Hemoglobin 10.7g/dl (14.0-18.0) Hematocrit 34.7% (42.0-52.0) Mean Corpuscular Volume 86.3fl (82.0-101.0) Mean Corpuscular Hemoglobin 26.6pg (29.0-33.0) Mean Corpuscular Hemoglobin Concent 30.8g/dl (32.0-37.0) Red Cell Distribution Width 15.5% (11.5-14.5) Platelet Count 29483^3/UL (140-415) Mean Platelet Volume 11.4fl (7.4-10.4) Neutrophils % 62.0% (39.0-77.0) Lymphocytes % 28.7% (15.0-51.0) Monocytes % 6.3% (0.0-11.0) Eosinophils % 2.1% (0.0-7.0) Basophils % 0.5% (0.0-2.0) Nucleated Red Blood Cells % 0.0/100WBC (0.0-0.0) Neutrophils # 4.710^3/ul (1.6-7.5) Lymphocytes # 2.210^3/ul (0.8-2.9) Monocytes # 0.510^3/ul (0.3-0.9) Eosinophils # 0.210^3/ul (0.0-0.5) Basophils # 0.010^3/ul (0.0-0.1) Nucleated Red Blood Cells # 0.010^3/ul (0.0-0.0) Sodium Level 140mmol/L (135-144) Potassium Level 4.1mmol/L (3.5-5.1) Chloride Level 105mmol/L (97-110) Carbon Dioxide Level 25mmol/L (21-31) Anion Gap 14 (8-16) Blood Urea Nitrogen 13mg/dl (7-20) Creatinine 0.56mg/dl (0.61-1.24) Glucose Level 98mg/dl (70-220) Calcium Level 9.3mg/dl (8.4-10.2) SHELLEY HERNANDEZ Jan 17, 2017 15:04 SHELLEY HERNANDEZ Jan 17, 2017 15:04
--- NOTE | 2017-01-17 16:46 | CONS ---
Date/Time of Note Date/Time of Note DATE: 01/17/17 TIME: 16:45 Consultation Date/Type/Reason Admit Date/Time Jan 14, 2017 at 09:02 Initial Consult Date 01/16/17 Type of Consultation: Pulmonary Reason for Consultation History of possible hematemesis Referring Provider: RICHARD GIRARD MD 24 HR Interval Summary Free Text/Dictation Patient was admitted to the hospital because of hematemesis Examination and upon aspiration of the gastric contents there was no evidence of bleeding noted Globin stable around 10.3 Discussed with nurse practitioner Okay to resume the Lovenox We will see the patient again if the patient were to develop active GI bleeding meanwhile continue present management including PPI Exam/Review of Systems Vital Signs Vitals Vital Signs Date Time Temp Pulse Resp B/P Pulse Ox O2 Delivery O2 Flow Rate FiO2 01/17/17 16:25 130/80 01/17/17 16:16 86 01/17/17 15:15 16 96 35 01/17/17 15:11 98.4 01/14/17 18:43 Mechanical Ventilator Intake and Output 01/16/17 01/16/17 01/17/17 15:00 23:00 07:00 Intake Total 1980 ml 1820 ml Output Total 300 ml 400 ml Balance 1680 ml 1420 ml Results Result Diagram: 01/17/17 0535 01/17/17 0535 Results 24 hrs Laboratory Tests Test 01/17/17 05:35 White Blood Count 7.5 Red Blood Count 4.02 L Hemoglobin 10.7 L Hematocrit 34.7 L Mean Corpuscular Volume 86.3 Mean Corpuscular Hemoglobin 26.6 L Mean Corpuscular Hemoglobin Concent 30.8 L Red Cell Distribution Width 15.5 H Platelet Count 256 # Mean Platelet Volume 11.4 H Neutrophils % 62.0 Lymphocytes % 28.7 Monocytes % 6.3 Eosinophils % 2.1 Basophils % 0.5 Nucleated Red Blood Cells % 0.0 Neutrophils # 4.7 Lymphocytes # 2.2 Monocytes # 0.5 Eosinophils # 0.2 Basophils # 0.0 Nucleated Red Blood Cells # 0.0 Sodium Level 140 Potassium Level 4.1 Chloride Level 105 Carbon Dioxide Level 25 Anion Gap 14 Blood Urea Nitrogen 13 Creatinine 0.56 L Glucose Level 98 Calcium Level 9.3 Medications Medications Current Medications Potassium Chloride/Dextrose/ Sod Cl (D5-1/2ns + KCl 20 Meq) 1,000 ml @ 80 mls/ hr [id number] IV Last administered on 01/17/17 09:16; Admin Dose 80 MLS/HR; Start 01/14/17 at 17:01 Ondansetron HCl (Zofran Inj) 4 mg Q6H PRN IV NAUSEA AND/OR VOMITING; Start 01/14 at 17:30 Morphine Sulfate 2 mg 2 mg Q4H PRN IV PAIN LEVEL 7-10; Start 01/14/17 at 17:30 Levetiracetam (Keppra 1,500mg/ 100ml (Pmx)) 100 ml @ 400 mls/hr Q12 IVPB Last administered on 01/17/17 09:16; Admin Dose 400 MLS/HR; Start 01/14/17 at 21:00 Pantoprazole (Protonix Iv) 40 mg Q12 IV Last administered on 01/17/17 09:16; Admin Dose 40 MG; Start 01/15/17 at 21:00 Aspirin (Halfprin) 81 mg DAILY PO ; Start 01/17/17 at 16:30 Enoxaparin Sodium (Lovenox) 30 mg Q24H SC ; Start 01/17/17 at 17:00 LUCIE HUNTER MD Jan 17, 2017 16:46
[2017-01-17] MEDS: ASPIRIN (EC) 81 MG TAB PO SCH (17:06)
[2017-01-17] MEDS: ENOXAPARIN 30 MG/0.3 ML SYG SC SCH (17:17)
[2017-01-18] VITALS (24 sets, daily range): BP systolic 115–139; BP diastolic 65–88; PULSE 68–100; RESP 16–27
[2017-01-18] MEDS: D5W-0.45 NACL + KCL 20 MEQ 1,000 ML IV SCH ×2 (08:31→21:01)
[2017-01-18] MEDS: PANTOPRAZOLE 40 MG INJ IV SCH ×2 (09:29→21:00)
[2017-01-18] MEDS: LEVETIRACETAM 1500 MG (PMX) 100 ML IVPB SCH ×2 (09:30→21:00)
[2017-01-18] MEDS: ASPIRIN (EC) 81 MG TAB PO SCH (09:30)
--- NOTE | 2017-01-18 15:08 | CONS ---
Date/Time of Note Date/Time of Note DATE: 01/18/17 TIME: 15:08 Consult Date/Type/Reason Admit Date/Time Jan 14, 2017 at 09:02 Initial Consult Date 01/16/17 Type of Consultation: Pulmonary Ordering Provider: RICHARD GIRARD MD Subjective Patient comfortable no new events. Objective Vital Signs Date Time Temp Pulse Resp B/P Pulse Ox O2 Delivery O2 Flow Rate FiO2 01/18/17 14:43 35 01/18/17 13:05 68 16 100 01/18/17 11:27 98.6 120/73 01/14/17 18:43 Mechanical Ventilator Intake and Output 01/17/17 01/17/17 01/18/17 15:00 23:00 07:00 Intake Total 100 ml 1820 ml 900 ml Output Total 500 ml 400 ml Balance 100 ml 1320 ml 500 ml Exam PHYSICAL EXAMINATION GENERAL: Chronically ill-appearing gentleman on mechanical ventilation via tracheostomy VITAL SIGNS: see below. HEENT: Pupils equal, round, and reactive to light. Tracheostomy site clean and intact. CARDIAC: S1, S2, 1/6 systolic ejection murmur CHEST: Diminished air entry bilaterally. ABDOMEN: Mildly distended. Bowel sounds present no guarding or rebound EXTREMITIES: No cyanosis, clubbing edema +1 NEUROLOGIC: Generalized weakness, contractures Results/Medications Result Diagram: 01/17/17 0535 01/17/17 0535 Medications Current Medications Potassium Chloride/Dextrose/ Sod Cl (D5-1/2ns + KCl 20 Meq) 1,000 ml @ 80 mls/ hr [id number] IV Last administered on 01/17/17 20:01; Admin Dose 80 MLS/HR; Start 01/14/17 at 17:01 Ondansetron HCl (Zofran Inj) 4 mg Q6H PRN IV NAUSEA AND/OR VOMITING; Start 01/14 at 17:30 Morphine Sulfate 2 mg 2 mg Q4H PRN IV PAIN LEVEL 7-10; Start 01/14/17 at 17:30 Levetiracetam (Keppra 1,500mg/ 100ml (Pmx)) 100 ml @ 400 mls/hr Q12 IVPB Last administered on 01/18/17 09:30; Admin Dose 400 MLS/HR; Start 01/14/17 at 21:00 Pantoprazole (Protonix Iv) 40 mg Q12 IV Last administered on 01/18/17 09:29; Admin Dose 40 MG; Start 01/15/17 at 21:00 Aspirin (Halfprin) 81 mg DAILY PO Last administered on 01/18/17 09:30; Admin Dose 81 MG; Start 01/17/17 at 16:30 Enoxaparin Sodium (Lovenox) 30 mg Q24H SC Last administered on 01/17/17 17:17 ; Admin Dose 30 MG; Start 01/17/17 at 17:00 Assessment/Plan Chief Complaint/Hosp Course Assessment 1. Rule out acute GI bleed 2. Vent dependent respiratory failure 3. Possible aspiration pneumonia 4. Chronic vegetative state 5. History of dysphagia with G-tube Plan 1. Continue mechanical ventilation 2. Continue GI recommendations 3. Continue proton pump inhibitor 4. DVT GI prophylaxis Discharge planning okay from pulmonary standpoint Problems: [facility] NEWTON MD, [facility] Jan 18, 2017 15:08
[2017-01-18] MEDS: ENOXAPARIN 30 MG/0.3 ML SYG SC SCH (17:06)
--- NOTE | 2017-01-18 18:29 | PN ---
Date/Time of Note Date/Time of Note DATE: 01/18/17 TIME: 18:23 Assessment/Plan VTE Prophylaxis VTE Prophylaxis Intervention: other Lines/Catheters IV [facility] Peripheral IV Urinary Cath still in place: No Assessment/Plan Chief Complaint/Hosp Course The patient is unfortunate 46-year-old male with anoxic encephalopathy, status post cardiac arrest after suicide attempt in 2009. Patient is ventilated later dependent with past medical history including schizophrenia seizure disorder, dysphagia with PEG. Patient was admitted for coffee-ground emesis. Patient was diagnosed with possible GI bleed and was started on Protonix drip.Patient is cleared by GI and pulmonary to transfer to SNF. Constitutional: non-verbal Respiratory: crackles/rales Cardiovascular: nl pulses Gastrointestinal: non-tender, other (G-tube), soft Extremities: normal pulses Neurological: other (Anoxic encephalopathy, contracted extremities) Skin: other (Multiple wounds) Dw dr Walton- pt is not having active GI bleed. Its ok to resume ASA, Lovenox. Patient to transfer to SNF when arrangements are done. dw staff/Dr Courtney Problems: Assessment/Plan -Hematemesis, possible GI bleed, continue Protonix. Dr De León is following in GI consultation. -Anoxic encephalopathy status post cardiac arrest since 2009 -Ventilator dependent respiratory failure -Dysphagia with PEG -Seizure disorder, continue Keppra. -Schizophrenia -Multiple wounds, continue current wound care, offloading. Further recommendations based on clinical course. DC am when bed is available, pt was not transferred yesterday as placement pending. Anticipate transfer to SNF am. Plan of care discussed with Dr. Courtney. Exam/Review of Systems Vital Signs Vitals Vital Signs Date Time Temp Pulse Resp B/P Pulse Ox O2 Delivery O2 Flow Rate FiO2 01/18/17 17:05 60 16 100 35 01/18/17 15:31 98.7 120/88 01/14/17 18:43 Mechanical Ventilator Intake and Output 01/17/17 01/17/17 01/18/17 15:00 23:00 07:00 Intake Total 100 ml 1820 ml 900 ml Output Total 500 ml 400 ml Balance 100 ml 1320 ml 500 ml Exam Constitutional: frail, non-verbal Respiratory: diminished breath sounds Cardiovascular: nl pulses, regular rate and rhythm Gastrointestinal: soft Musculoskeletal: muscle weakness, other (contractures BUE/BLE) Extremities: other Neurological: lethargic Results Result Diagram: 01/17/17 0535 01/17/17 0535 Medications Medications Current Medications Potassium Chloride/Dextrose/ Sod Cl (D5-1/2ns + KCl 20 Meq) 1,000 ml @ 80 mls/ hr [id number] IV Last administered on 01/17/17 20:01; Admin Dose 80 MLS/HR; Start 01/14/17 at 17:01 Ondansetron HCl (Zofran Inj) 4 mg Q6H PRN IV NAUSEA AND/OR VOMITING; Start 01/14 at 17:30 Morphine Sulfate 2 mg 2 mg Q4H PRN IV PAIN LEVEL 7-10; Start 01/14/17 at 17:30 Levetiracetam (Keppra 1,500mg/ 100ml (Pmx)) 100 ml @ 400 mls/hr Q12 IVPB Last administered on 01/18/17 09:30; Admin Dose 400 MLS/HR; Start 01/14/17 at 21:00 Pantoprazole (Protonix Iv) 40 mg Q12 IV Last administered on 01/18/17 09:29; Admin Dose 40 MG; Start 01/15/17 at 21:00 Aspirin (Halfprin) 81 mg DAILY PO Last administered on 01/18/17 09:30; Admin Dose 81 MG; Start 01/17/17 at 16:30 Enoxaparin Sodium (Lovenox) 30 mg Q24H SC Last administered on 01/18/17 17:06 ; Admin Dose 30 MG; Start 01/17/17 at 17:00 SHELLEY HERNANDEZ Jan 18, 2017 18:29
--- NOTE | 2017-01-18 21:28 | PN ---
DATE: 01/18/2017 SUBJECTIVE DATA: The patient is intubated and is unable to give any history. Status post tracheostomy. I saw the patient because of upper GI bleeding. PHYSICAL EXAMINATION: GENERAL: Patient is unresponsive, status post tracheostomy and ventilator dependence. HEART: Normal heart sounds. LUNGS: Normal breath sounds. ABDOMEN: Showed evidence of a G-tube in the right place. LABORATORY: Hemoglobin 10.7, WBC count 7,500. The potassium is 4.1, sodium is 140. IMPRESSION: 1. Patient has history of hematemesis, but currently hemoglobin is stable. He is on Lovenox. 2. Stable gastrointestinal bleeding. PLAN: Recommend continue present management. Recommend upper endoscopy if the patient were to show any evidence of bleeding. Dictated By: Reid Walton MD /[email or web address] /Document#: [id number]
[2017-01-19] VITALS (24 sets, daily range): BP systolic 117–147; BP diastolic 63–77; PULSE 60–82; RESP 16–34
[2017-01-19 08:21] LABS: BASOPHILS % 0.4 % (0.0-2.0); EOSINOPHILS # 0.2 10^3/ul (0.0-0.5); EOSINOPHILS % 2.5 % (0.0-7.0); HEMATOCRIT 31.4 % (42.0-52.0); HEMOGLOBIN 9.6 g/dl (14.0-18.0); LYMPHOCYTES # 1.8 10^3/ul (0.8-2.9); LYMPHOCYTES % 26.4 % (15.0-51.0); MEAN CORPUSCULAR HEMOGLOBIN 26.6 pg (29.0-33.0); MEAN CORPUSCULAR HGB CONC 30.6 g/dl (32.0-37.0); MEAN PLATELET VOLUME 11.8 fl (7.4-10.4); MONOCYTE # 0.4 10^3/ul (0.3-0.9); MONOCYTES % 6.3 % (0.0-11.0); NEUTROPHIL # 4.3 10^3/ul (1.6-7.5); NEUTROPHILS % 64.1 % (39.0-77.0); POSITIVE DIFF @See below; RED BLOOD COUNT 3.61 10^6/ul (4.70-6.10); RED CELL DISTRIBUTION WIDTH 15.6 % (11.5-14.5); WHITE BLOOD COUNT 6.7 10^3/ul (4.8-10.8)
[2017-01-19 08:36] LABS: PLATELET COUNT 172 10^3/UL (140-415)
[2017-01-19 08:40] LABS: CALCIUM 8.8 mg/dl (8.4-10.2); CREATININE 0.5 mg/dl (0.61-1.24); POTASSIUM 4.6 mmol/L (3.5-5.1)
[2017-01-19] MEDS: PANTOPRAZOLE 40 MG INJ IV SCH ×2 (09:31→20:16)
[2017-01-19] MEDS: ASPIRIN (EC) 81 MG TAB PO SCH (09:31)
[2017-01-19] MEDS: LEVETIRACETAM 1500 MG (PMX) 100 ML IVPB SCH ×2 (09:31→20:17)
[2017-01-19] MEDS: D5W-0.45 NACL + KCL 20 MEQ 1,000 ML IV SCH ×2 (09:32→22:01)
--- NOTE | 2017-01-19 14:22 | CONS ---
Date/Time of Note Date/Time of Note DATE: 01/19/17 TIME: 14:22 Consult Date/Type/Reason Admit Date/Time Jan 14, 2017 at 09:02 Initial Consult Date 01/16/17 Type of Consultation: Pulmonary Ordering Provider: RICHARD GIRARD MD Subjective Patient appears comfortable no new events Objective Vital Signs Date Time Temp Pulse Resp B/P Pulse Ox O2 Delivery O2 Flow Rate FiO2 01/19/17 12:10 82 01/19/17 11:32 99.2 34 147/72 100 01/19/17 09:23 35 Intake and Output 01/18/17 01/18/17 01/19/17 15:00 23:00 07:00 Intake Total 920 ml 1850 ml Output Total 700 ml Balance 220 ml 1850 ml Exam PHYSICAL EXAMINATION GENERAL: Chronically ill-appearing gentleman on mechanical ventilation via tracheostomy VITAL SIGNS: see below. HEENT: Pupils equal, round, and reactive to light. Tracheostomy site clean and intact. CARDIAC: S1, S2, 1/6 systolic ejection murmur CHEST: Diminished air entry bilaterally. ABDOMEN: Mildly distended. Bowel sounds present no guarding or rebound EXTREMITIES: No cyanosis, clubbing edema +1 NEUROLOGIC: Generalized weakness, contractures Results/Medications Result Diagram: 01/19/17 0750 01/19/17 0750 Results 24 hrs Laboratory Tests Test 01/19/17 07:50 White Blood Count 6.7 Red Blood Count 3.61 L Hemoglobin 9.6 L Hematocrit 31.4 L Mean Corpuscular Volume 87.0 Mean Corpuscular Hemoglobin 26.6 L Mean Corpuscular Hemoglobin Concent 30.6 L Red Cell Distribution Width 15.6 H Platelet Count 172 # Mean Platelet Volume 11.8 H Neutrophils % 64.1 Lymphocytes % 26.4 Monocytes % 6.3 Eosinophils % 2.5 Basophils % 0.4 Nucleated Red Blood Cells % 0.0 Neutrophils # 4.3 Lymphocytes # 1.8 Monocytes # 0.4 Eosinophils # 0.2 Basophils # 0.0 Nucleated Red Blood Cells # 0.0 Sodium Level 141 Potassium Level 4.6 Chloride Level 105 Carbon Dioxide Level 24 Anion Gap 17 H Blood Urea Nitrogen 11 Creatinine 0.50 L Glucose Level 102 Calcium Level 8.8 Medications Current Medications Potassium Chloride/Dextrose/ Sod Cl (D5-1/2ns + KCl 20 Meq) 1,000 ml @ 80 mls/ hr [id number] IV Last administered on 01/19/17 09:32; Admin Dose 80 MLS/HR; Start 01/14/17 at 17:01 Ondansetron HCl (Zofran Inj) 4 mg Q6H PRN IV NAUSEA AND/OR VOMITING; Start 01/14 at 17:30 Morphine Sulfate 2 mg 2 mg Q4H PRN IV PAIN LEVEL 7-10; Start 01/14/17 at 17:30 Levetiracetam (Keppra 1,500mg/ 100ml (Pmx)) 100 ml @ 400 mls/hr Q12 IVPB Last administered on 01/19/17 09:31; Admin Dose 400 MLS/HR; Start 01/14/17 at 21:00 Pantoprazole (Protonix Iv) 40 mg Q12 IV Last administered on 01/19/17 09:31; Admin Dose 40 MG; Start 01/15/17 at 21:00 Aspirin (Halfprin) 81 mg DAILY PO Last administered on 01/19/17 09:31; Admin Dose 81 MG; Start 01/17/17 at 16:30 Enoxaparin Sodium (Lovenox) 30 mg Q24H SC Last administered on 01/18/17 17:06 ; Admin Dose 30 MG; Start 01/17/17 at 17:00 Assessment/Plan Chief Complaint/Hosp Course Assessment 1. Rule out acute GI bleed 2. Vent dependent respiratory failure 3. Possible aspiration pneumonia 4. Chronic vegetative state 5. History of dysphagia with G-tube Plan 1. Continue mechanical ventilation 2. Continue GI recommendations 3. Continue proton pump inhibitor 4. DVT GI prophylaxis Discharge planning okay from pulmonary standpoint Problems: DONTE NEWTON MD, [facility] Jan 19, 2017 14:22
--- NOTE | 2017-01-19 16:25 | PN ---
Date/Time of Note Date/Time of Note DATE: 01/19/17 TIME: 16:24 Assessment/Plan VTE Prophylaxis VTE Prophylaxis Intervention: SCD's Lines/Catheters IV Catheter Type (from [facility]): Peripheral IV Urinary Cath still in place: No Assessment/Plan Chief Complaint/Hosp Course Assessment/Plan -Hematemesis, possible GI bleed, continue Protonix. Dr De León is following in GI consultation. -Anoxic encephalopathy status post cardiac arrest since 2009 -Ventilator dependent respiratory failure -Dysphagia with PEG -Seizure disorder, continue Keppra. -Schizophrenia -Multiple wounds, continue current wound care, offloading. Further recommendations based on clinical course. Plan of care discussed with Dr. Courtney. Problems: Exam/Review of Systems Vital Signs Vitals Vital Signs Date Time Temp Pulse Resp B/P Pulse Ox O2 Delivery O2 Flow Rate FiO2 01/19/17 16:13 98.6 80 16 123/74 100 01/19/17 09:23 35 Intake and Output 01/18/17 01/18/17 01/19/17 15:00 23:00 07:00 Intake Total 920 ml 1850 ml Output Total 700 ml Balance 220 ml 1850 ml Exam Constitutional: non-verbal Respiratory: crackles/rales Cardiovascular: nl pulses Gastrointestinal: non-tender, other (G-tube), soft Extremities: normal pulses Neurological: other (Anoxic encephalopathy, contracted extremities) Skin: other (Multiple wounds) Results Result Diagram: 01/19/17 0750 01/19/17 0750 Results 24 hrs Laboratory Tests Test 01/19/17 07:50 White Blood Count 6.7 Red Blood Count 3.61 L Hemoglobin 9.6 L Hematocrit 31.4 L Mean Corpuscular Volume 87.0 Mean Corpuscular Hemoglobin 26.6 L Mean Corpuscular Hemoglobin Concent 30.6 L Red Cell Distribution Width 15.6 H Platelet Count 172 # Mean Platelet Volume 11.8 H Neutrophils % 64.1 Lymphocytes % 26.4 Monocytes % 6.3 Eosinophils % 2.5 Basophils % 0.4 Nucleated Red Blood Cells % 0.0 Neutrophils # 4.3 Lymphocytes # 1.8 Monocytes # 0.4 Eosinophils # 0.2 Basophils # 0.0 Nucleated Red Blood Cells # 0.0 Sodium Level 141 Potassium Level 4.6 Chloride Level 105 Carbon Dioxide Level 24 Anion Gap 17 H Blood Urea Nitrogen 11 Creatinine 0.50 L Glucose Level 102 Calcium Level 8.8 Medications Medications Current Medications Potassium Chloride/Dextrose/ Sod Cl (D5-1/2ns + KCl 20 Meq) 1,000 ml @ 80 mls/ hr [id number] IV Last administered on 01/19/17 09:32; Admin Dose 80 MLS/HR; Start 01/14/17 at 17:01 Ondansetron HCl (Zofran Inj) 4 mg Q6H PRN IV NAUSEA AND/OR VOMITING; Start 01/14 at 17:30 Morphine Sulfate 2 mg 2 mg Q4H PRN IV PAIN LEVEL 7-10; Start 01/14/17 at 17:30 Levetiracetam (Keppra 1,500mg/ 100ml (Pmx)) 100 ml @ 400 mls/hr Q12 IVPB Last administered on 01/19/17 09:31; Admin Dose 400 MLS/HR; Start 01/14/17 at 21:00 Pantoprazole (Protonix Iv) 40 mg Q12 IV Last administered on 01/19/17 09:31; Admin Dose 40 MG; Start 01/15/17 at 21:00 Aspirin (Halfprin) 81 mg DAILY PO Last administered on 01/19/17 09:31; Admin Dose 81 MG; Start 01/17/17 at 16:30 Enoxaparin Sodium (Lovenox) 30 mg Q24H SC Last administered on 01/18/17 17:06 ; Admin Dose 30 MG; Start 01/17/17 at 17:00 JH WISDOM Jan 19, 2017 16:25
[2017-01-19] MEDS: ENOXAPARIN 30 MG/0.3 ML SYG SC SCH (17:18)
[2017-01-20] VITALS (21 sets, daily range): BP systolic 117–135; BP diastolic 69–79; PULSE 68–100; RESP 16–29
[2017-01-20] MEDS: LEVETIRACETAM 1500 MG (PMX) 100 ML IVPB SCH (09:02)
[2017-01-20] MEDS: PANTOPRAZOLE 40 MG INJ IV SCH (09:02)
[2017-01-20] MEDS: ASPIRIN (EC) 81 MG TAB PO SCH (09:02)
[2017-01-20] MEDS: D5W-0.45 NACL + KCL 20 MEQ 1,000 ML IV SCH (09:09)
--- NOTE | 2017-01-20 11:38 | CONS ---
Date/Time of Note Date/Time of Note DATE: 01/20/17 TIME: 11:37 Consult Date/Type/Reason Admit Date/Time Jan 14, 2017 at 09:02 Initial Consult Date 01/16/17 Type of Consultation: Pulmonary Ordering Provider: RICHARD GIRARD MD Subjective Patient comfortable this morning no new events. Objective Vital Signs Date Time Temp Pulse Resp B/P Pulse Ox O2 Delivery O2 Flow Rate FiO2 01/20/17 11:30 97.9 71 18 121/70 100 01/20/17 07:00 35 Intake and Output 01/19/17 01/19/17 01/20/17 15:00 23:00 07:00 Intake Total 1020 ml 1880 ml Balance 1020 ml 1880 ml Exam PHYSICAL EXAMINATION GENERAL: Chronically ill-appearing gentleman on mechanical ventilation via tracheostomy VITAL SIGNS: see below. HEENT: Pupils equal, round, and reactive to light. Tracheostomy site clean and intact. CARDIAC: S1, S2, 1/6 systolic ejection murmur CHEST: Diminished air entry bilaterally. ABDOMEN: Mildly distended. Bowel sounds present no guarding or rebound EXTREMITIES: No cyanosis, clubbing edema +1 NEUROLOGIC: Generalized weakness, contractures Results/Medications Result Diagram: 01/19/17 0750 01/19/17 0750 Results 24 hrs Laboratory Tests Test 01/19/17 22:57 Bedside Glucose 107 Medications Current Medications Potassium Chloride/Dextrose/ Sod Cl (D5-1/2ns + KCl 20 Meq) 1,000 ml @ 80 mls/ hr [id number] IV Last administered on 01/20/17 09:09; Admin Dose 80 MLS/HR; Start 01/14/17 at 17:01 Ondansetron HCl (Zofran Inj) 4 mg Q6H PRN IV NAUSEA AND/OR VOMITING; Start 01/14 at 17:30 Morphine Sulfate 2 mg 2 mg Q4H PRN IV PAIN LEVEL 7-10; Start 01/14/17 at 17:30 Levetiracetam (Keppra 1,500mg/ 100ml (Pmx)) 100 ml @ 400 mls/hr Q12 IVPB Last administered on 01/20/17 09:02; Admin Dose 400 MLS/HR; Start 01/14/17 at 21:00 Pantoprazole (Protonix Iv) 40 mg Q12 IV Last administered on 01/20/17 09:02; Admin Dose 40 MG; Start 01/15/17 at 21:00 Aspirin (Halfprin) 81 mg DAILY PO Last administered on 01/20/17 09:02; Admin Dose 81 MG; Start 01/17/17 at 16:30 Enoxaparin Sodium (Lovenox) 30 mg Q24H SC Last administered on 01/19/17 17:18 ; Admin Dose 30 MG; Start 01/17/17 at 17:00 Assessment/Plan Chief Complaint/Hosp Course Assessment 1. Stable H&H following concern for acute GI bleed. 2. Vent dependent respiratory failure 3. Possible aspiration pneumonia 4. Chronic vegetative state 5. History of dysphagia with G-tube Plan 1. Continue mechanical ventilation 2. Continue GI recommendations 3. Continue proton pump inhibitor 4. DVT GI prophylaxis Discharge planning okay from pulmonary standpoint Problems: DONTE NEWTON MD, [facility] Jan 20, 2017 11:38
--- NOTE | 2017-01-20 15:34 | PN ---
Date/Time of Note Date/Time of Note DATE: 01/20/17 TIME: 15:31 Assessment/Plan VTE Prophylaxis VTE Prophylaxis Intervention: SCD's Lines/Catheters IV Catheter Type (from Nrs): Peripheral IV Urinary Cath still in place: No Assessment/Plan Chief Complaint/Hosp Course Patient looks comfortable, remains hemodynamically stable, afebrile. DC planning Assessment/Plan -Hematemesis, possible GI bleed, continue Protonix. Dr De León is following in GI consultation. -Anoxic encephalopathy status post cardiac arrest since 2009 -Ventilator dependent respiratory failure -Dysphagia with PEG -Seizure disorder, continue Keppra. -Schizophrenia -Multiple wounds, continue current wound care, offloading. Further recommendations based on clinical course. Plan of care discussed with Dr. Courtney. Problems: Exam/Review of Systems Vital Signs Vitals Vital Signs Date Time Temp Pulse Resp B/P Pulse Ox O2 Delivery O2 Flow Rate FiO2 01/20/17 12:10 68 01/20/17 11:30 97.9 18 121/70 100 01/20/17 09:00 35 Intake and Output 01/19/17 01/19/17 01/20/17 15:00 23:00 07:00 Intake Total 1020 ml 1880 ml Balance 1020 ml 1880 ml Exam Constitutional: non-verbal Respiratory: crackles/rales Cardiovascular: nl pulses Gastrointestinal: non-tender, other (G-tube), soft Extremities: normal pulses Neurological: other (Anoxic encephalopathy, contracted extremities) Skin: other (Multiple wounds) Results Result Diagram: 01/19/17 0750 01/19/17 0750 Results 24 hrs Laboratory Tests Test 01/19/17 22:57 Bedside Glucose 107 Medications Medications Current Medications Potassium Chloride/Dextrose/ Sod Cl (D5-1/2ns + KCl 20 Meq) 1,000 ml @ 80 mls/ hr [id number] IV Last administered on 01/20/17t 09:09; Admin Dose 80 MLS/HR; Start 01/14/17 at 17:01 Ondansetron HCl (Zofran Inj) 4 mg Q6H PRN IV NAUSEA AND/OR VOMITING; Start 01/14 at 17:30 Morphine Sulfate 2 mg 2 mg Q4H PRN IV PAIN LEVEL 7-10; Start 01/14/17 at 17:30 Levetiracetam (Keppra 1,500mg/ 100ml (Pmx)) 100 ml @ 400 mls/hr Q12 IVPB Last administered on 01/20/17 09:02; Admin Dose 400 MLS/HR; Start 01/14/17 at 21:00 Pantoprazole (Protonix Iv) 40 mg Q12 IV Last administered on 01/20/17 09:02; Admin Dose 40 MG; Start 01/15/17 at 21:00 Aspirin (Halfprin) 81 mg DAILY PO Last administered on 01/20/17 09:02; Admin Dose 81 MG; Start 01/17/17 at 16:30 Enoxaparin Sodium (Lovenox) 30 mg Q24H SC Last administered on 01/19/17 17:18 ; Admin Dose 30 MG; Start 01/17/17 at 17:00 JH WISDOM Jan 20, 2017 15:34
[2017-01-20] MEDS: ENOXAPARIN 30 MG/0.3 ML SYG SC SCH (16:28)
--- NOTE | 2017-01-25 11:54 | GILP ---
DATE OF PROCEDURE: 01/17/2017 PROCEDURE PERFORMED: Esophagogastroduodenoscopy. BRIEF HISTORY AND INDICATIONS: The patient is being evaluated for GI bleeding and hematemesis. PREMEDICATIONS: Monitored anesthesia care by anesthesiologist. INSTRUMENTS USED: TECHNIQUE: After informed consent, with the patient/relatives understanding the procedure, its indications, potential risks and complications, including but not limited to: allergic reaction, bleeding, perforation or infection, and after all pertinent questions were answered to the patients satisfaction, the patient/relatives signed witnessed informed consent. Following this, premedication was administered slowly IV push under careful cardiovascular and respiratory monitoring with pulse oximetry, automatic blood pressure and sliver lap tender. Once the sedative effect was achieved the patient was place in the left lateral decubitus, the panendoscope was introduced and advanced under visual control. Careful examination of the upper gastrointestinal tract, both on insertion as well as withdrawal of the instrument disclosed the following findings: ESOPHAGUS: The esophagus with severe and extensive ulceration in the distal half of the half of the esophagus. A medium sized hiatal hernia is present. STOMACH: Upon entrance to the stomach air was insufflated, the gastric contreras distended normally. There is a gastrostomy tube in place, which appears to be in good condition. The stomach is otherwise unremarkable. PYLORUS: The pylorus appears patent and within normal limits, with no evidence of gastric outlet obstruction. DUODENUM: The duodenal mucosa was carefully examined in the duodenal bulb as well as the second portion of the duodenum and appears unremarkable with no evidence of duodenitis, ulcer or neoplasm. The instrument was then withdrawn, the patient tolerated the procedure well and was transfer out of the endoscopy suite awake, and in good condition to continue recovery under observation. IMPRESSION: 1. Severe ulcerated esophagitis. 2. Hiatal hernia. 3. Gastrostomy tube in place. PLAN: The patient will be treated with PPI b.i.d., Reglan 10 mg q.6 hours will be added to her regimen. Monitor H and H and transfuse as necessary for hemoglobin less than 7.5. We will start feedings as soon as possible. Dictated By: Shani Hagen MD /betzy/virgen /Document#: [id number]
== END 2017-01-20 21:15 | DRG 378 ==
LOC: E/R 08:50 → TEL 09:02
PROVIDERS: ADMIT Internal Medicine; ATTEND Internal Medicine
PROC: 5A1955Z Respiratory Ventilation, Greater than 96 Consecutive Hours (ICD-10-PCS; principal; 2017-01-14)
DX: K92.0 Hematemesis (principal); G93.1 Anoxic brain damage, not elsewhere classified; R40.3 Persistent vegetative state; Z99.11 Dependence on respirator [ventilator] status; J96.10 Chronic respiratory failure, unspecified whether with hypoxia or hypercapnia; Z93.0 Tracheostomy status; F20.9 Schizophrenia, unspecified; Z93.1 Gastrostomy status; R13.10 Dysphagia, unspecified; T14.8 Other injury of unspecified body region; G40.909 Epilepsy, unspecified, not intractable, without status epilepticus; Z86.74 Personal history of sudden cardiac arrest; Z91.5 Personal history of self-harm; Z79.82 Long term (current) use of aspirin; X58.XXXD Exposure to other specified factors, subsequent encounter
CPT/HCPCS: 36415; 71010; 80048; 80053; 82962; 83735; 84484; 85025; 85610; 85730; 86850; 86900; 86901; 87081; 93005; 94002; 94003; 96374; C9113; J1650; J1953; J3480

== ENCOUNTER 2018-10-30 06:11 | Inpatient (IN) | payer MEDICAID ==
[~2018-10-30] VITALS: Ht 152.4 cm; Wt 71.4 kg
[~2018-10-30 06:11] MED LIST changes: +ACET-2047 PO; -ASPI-664 GTB; +ASPI-817 GTB; +CHLO473M4 MM; +CRAN3875 GTB; -CRAN425C GTB; +CRAN425C6 PO; +FAMO-96 GTB; -FERR220S2 GTB; +IPRA3AMP29 INHALATION; +MAGN400O19 GTB; -MAGN400O4 GTB; +UDFER GTB; +ZINC220T GTB
[2018-10-30 06:13] VITALS: Ht 152.4 cm; Wt 71.4 kg
[2018-10-30] MEDS ORDERED: ACETAMINOPHEN 650 MG SUPP PR STA (06:14)
[2018-10-30] MEDS ORDERED: SODIUM CHLORIDE 0.9% 1L BAG IV* STA (06:14)
[2018-10-30] MEDS ORDERED: CEFEPIME 2GM/50 ML (PMX) 50 ML IVPB STA (06:17)
[2018-10-30] MEDS ORDERED: VANCOMYCIN 1 GM (PMX) 250 ML IVPB ONE (06:30)
[2018-10-30] MEDS ORDERED: IBUPROFEN 800 MG TAB PEG ONE (06:30)
[2018-10-30] MEDS ORDERED: ACETAMINOPHEN 325 MG TAB ONE ×2 (07:48→08:01)
--- NOTE | 2018-10-30 08:29 | ERD ---
ER Documentation Chief Complaint Chief Complaint R39. "MORE ALTERED THAN USUAL" DNR. TACHYPNEA, TACHYCARDIA. HPI This is a 47-year-old male that presents to the emergency department brought in by EMS from [facility]. The patient is trach to vent dependent. He is past medical history of anoxic brain injury and encephalopathy. Patient is on Keppra as he does have history of seizure secondary to his anoxic brain injury. The patient was sent to the emergency department today for changes in his mental status. The patient has flexion contraction of the upper extremities and nursing staff indicated that he did not appear as rigid in his upper extremities. He appeared more drowsy. The patient is also DO NOT RESUSCITATE with comfort measures only. The patient has a feeding tube. The patient was hypoxic at 92% with rhonchi according to nursing staff. He had been suctioned at 5:02 AM roughly an hour prior to arrival. ROS All systems reviewed and are negative except as per history of present illness. Medications Home Meds Reported Medications Ipratropium-Albuterol (Ipratropium-Albuterol) 0.5-3 Mg/3 Ml Ampul.neb, 3 ML INHALATION Q3H PRN for WHEEZING AND SOB, #30 VIAL 01/14/17 Ipratropium-Albuterol (Ipratropium-Albuterol) 0.5-3 Mg/3 Ml Ampul.neb, 3 ML INHALATION Q6 PRN for WHEEZING AND SOB, #30 VIAL 01/14/17 Cranberry Extract (Cranberry) 425 Mg Capsule, 425 MG PO BID, CAP 01/14/17 Ondansetron Hcl* (Zofran*) 4 Mg Tablet, 4 MG GTB Q6H PRN for NAUSEA AND OR VOMITING, TAB 01/14/17 Zinc Sulfate* (Zinc Sulfate*) 220 Mg Tablet, 220 MG GTB DAILY, TAB 01/14/17 Cran/Vitc/Mannose/Inulin/Brom (Uti-Stat Liquid) 3,875 Mg/30 Ml Liquid, 3875 MG GTB DAILY 01/14/17 Acetaminophen* (Acetaminophen*) 650 Mg Tablet, 650 MG PO TRACH CHANGE, #30 TAB GIVE 30 MIN PRIOR 01/14/17 Famotidine* (Pepcid*) 20 Mg Tablet, 20 MG GTB BID, #60 TAB 01/14/17 Ferrous Sulfate (Ferrous Sulfate) 300 Mg/5 Ml Liquid, 330 MG GTB BID 01/14/17 Chlorhexidine Gluconate (Peridex) 473 Ml Mouthwash, 15 ML MM Q12, BOTTLE 01/14/17 Metoclopramide* (Reglan*) 10 Mg/10 Ml Soln, 10 MG GTB Q6, ML 01/14/17 Docusate Sodium* (Colace*) 100 Mg Capsule, 100 MG GTB QHS, #30 CAP 12/16/16 Bisacodyl* (Bisacodyl*) 10 Mg Supp, 10 MG WA DAILY PRN for PRN, SUPP 12/16/16 Sod Phosphate/Sod Biphosphate* (Fleet* Enema Pediatric) 66.6 Ml Soln, 66.6 ML WA Q2DAYS PRN for CONSTIPATION, ENEMA 12/16/16 Magnesium Hydroxide* (Milk Of Magnesia*) 400 Mg/5 Ml Oral.susp, 30 ML GTB DAILY, ML 12/16/16 Multivit &Minerals/Ferrous Fum (MULTIVITAMIN LIQUID) 9 Mg/15 Ml Liquid, 5 ML GTB DAILY 12/16/16 Ascorbic Acid (Vitamin C) 500 Mg Tab, 500 MG GTB DAILY, TAB 12/16/16 Acetaminophen* (Tylenol*) 500 Mg Tab, 1000 MG GTB Q4H PRN for MODERATE PAIN 4- 11/15, TAB 12/16/16 Acetaminophen* (Tylenol*) 325 Mg Tablet, 650 MG GTB Q4H PRN for MILD PAIN LEVEL 1-3, TAB FOR FEVER 101 AND ABOVE,FOR TRACH TUBE CHANGE 12/16/16 Levetiracetam* (Keppra* (Ped)) 100 Mg/Ml Liq, 15 ML GTB BID for 30 Days, BOTTLE 12/16/16 Metoprolol Tartrate* (Lopressor*) 25 Mg Tab, 12.5 MG GTB BID, #60 TAB HOLD IF SBP<110 12/16/16 Lansoprazole* (Lansoprazole*) 30 Mg Capsule.dr, 30 MG GTB DAILY, CAP 12/16/16 Enoxaparin Sodium* (Lovenox*) 30 Mg/0.3 Ml Disp.syrin, 30 MG SQ DAILY, SYR 12/16/16 Aspirin* (Aspirin* EC) 81 Mg Tablet.dr, 81 MG GTB DAILY, TAB 12/16/16 Allergies Allergies: Coded Allergies: No Known Drug Allergy (Unverified Allergy, Unknown, 01/14/17) PMhx/Soc Hx Neurological Disorder: Yes (chronic alteredv mental status) Hx Respiratory Disorders: Yes (Respairatory Failure,vent. dependent) Hx Cardiac Disorders: Yes (Cardiac arrest 2009) Hx Psychiatric Problems: Yes (Shizophrenia) Hx Miscellaneous Medical Probl: Yes (seizure) Smoking Status: Unknown if ever smoked Physical Exam Vitals Vital Signs Date Temp Pulse Resp B/P (MAP) Pulse Ox O2 O2 Flow FiO2 Time Delivery Rate 10/30/18 120 25 98 100 07:52 10/30/18 105.2 156 29 88/60 (69) 100 06:13 10/30/18 158 31 97 100 06:12 Physical Exam Constitutional: Debilitated. Quadriplegic. Trach to vent dependent. HEENT:Normocephalic. Atraumatic.Pupils were equal round reactive to light. Poor oral dentition with dry mucous membranes..No tonsillar exudates. Neck: No nuchal rigidity. No lymphadenopathy. No posterior cervical spine tenderness or step-offs. Respiratory: Tracheostomy site is clean dry and intact. Not using accessory muscles of respiration.Lungs were clear to auscultation bilaterally. Bilateral rhonchi. No rales. No wheezing. Cardiovascular: Regular rate regular rhythm.No murmurs. No rubs were appreciated.S1, S2 normal. Distal pulses are palpable 2+ bilaterally. GI: Abdomen was soft. Nontender. Distended. No pulsatile abdominal masses or br uits. No rebound. No guarding. Bowel sounds were present and normal. PEG tube in place Muscle skeletal: Flexion contraction of the upper and lower extremities. Muscle atrophy. Patient is quadriplegic. Skin: No petechia, no purpura. No lesions on the palms or the soles of the feet. No maculopapular rash. NEURO: Patient makes no verbal sound. Does not withdraw to pain. Opens eyes in response to pain. Bedbound so gait not observed Results 24 hrs Laboratory Tests Test 10/30/18 07:28 POC Venous Lactate 1.4 mmol/L Current Medications Medications Dose Sig/Kevin Start Time Status Last (Trade) Ordered Route PRN Stop Time Admin Dose Reason Admin Sodium 2,400 ml BOLUS OVER 2 10/30/18 DC Chloride HOURS STAT 06:14 (NS) IV* 10/30/18 06:18 650 mg ONCE STAT 10/30/18 DC Acetaminophen WA 06:14 (Tylenol 10/30/18 06:18 Supp) Ibuprofen 800 mg ONCE ONCE 10/30/18 DC (Motrin) PEG 06:30 10/30/18 06:31 Cefepime HCl 50 ml @ ONCE STAT 10/30/18 DC 100 mls/hr IVPB 06:17 10/30/18 06:46 Vancomycin 250 ml @ ONCE ONCE 10/30/18 HCl 125 mls/hr IVPB 06:30 10/30/18 08:29 325 mg STK-MED 10/30/18 DC Acetaminophen ONCE .ROUTE 07:48 (Tylenol 10/30/18 07:49 Tab) 325 mg STK-MED 10/30/18 DC Acetaminophen ONCE .ROUTE 08:01 (Tylenol 10/30/18 08:02 Tab) Procedures/MDM This is a debilitated 47-year-old male presented with a pulsed form indicating DO NOT RESUSCITATE with selective treatment which included IV antibiotics and IV fluids. The patient was hypotensive. Patient had very poor peripheral vascular access but a midline was able to be placed in the left forearm by nursing staff. There was a delay in receiving the patient's blood due to poor peripheral vascular access. I did perform a femoral stick in order to obtain further ancillary laboratory work and blood cultures. The patient was febrile with a fever of 105. Patient had a PEG tube and was given acetaminophen and Motrin through the PEG tube as antipyretics and also cooling measures were initiated. Patient's infectious symptoms have not stabilized and the patient is at risk of rapid decompensation. The patient will be admitted for careful hydration, antibiotic therapy, and infectious source control. Severe Sepsis Assessment: Infectious Source: Pyleonephritis End organ damage indicated by: Hypotension( SBP < 90 or >40 mmHG drop or MAP < 65) Severe Sepsis Managment: Blood Cultures X 2 before broad spectrum antibiotics initiated within 3 hours of recognition. 30 ml/kg NS bolus Completed Initial Lactate: Normal Repeat Lactate pending I considered further perfusion assessment with CVP measurement, SCVO2, bedside ultrasound volume assessment, passive leg raise, trial of further fluid bolus. And preceded with IV fluids 12 Lead EKG tracing ordered and reviewed by myself showed: Sinus tachycardia 156 bpm and no arrhythmia. WA interval normal. QRS duration normal. No ST segment elevation No ST segment depression. No changes consistent with acute ischemia. I obtained a 1 view chest radiograph that was reviewed with the radiologist myself and indicate the followin. No congestive heart failure. 2. Minimal patchy density at the bases likely all due to atelectasis. No definite infiltrates however recommend clinical correlation. The patient's troponin was elevated however felt this was more likely secondary to demand ischemia. He was given aspirin through his PEG tube. The patient's primary care physician is Dr. Courtney. He will be admitted in serious condition to the telemetry service given that the patient was tachycardic with an elevated troponin. I felt the tachycardia was also secondary to the severe hyperthermia. Critical Care: Time: 90 minutes Treatments/Evaluations: Close monitoring and treatment of unstable vital signs, cardiorespiratory, and neurologic status, while maintaining tight balance of fluid, respiratory, and cardiac interventions. Time does not include performing any of the above billable procedures. Departure Diagnosis: Primary Impression: Pyelonephritis Additional Impression: Non-ST elevated myocardial infarction (non-STEMI) Condition: Serious RENZO CARD MD October 30, 2018 08:14
[2018-10-30] MEDS ORDERED: ONDANSETRON 4 MG INJ IV PRN (08:30)
[2018-10-30] MEDS ORDERED: ACETAMINOPHEN 325 MG TAB GTB ONE (08:30)
[2018-10-30] MEDS ORDERED: ALBU2.5V3 NEB ×2 (09:22)
[2018-10-30] MEDS ORDERED: CHLO473M4 MM (09:23)
[2018-10-30] MEDS ORDERED: CRAN425C6 GTB (09:24)
[2018-10-30] MEDS ORDERED: DOCU-144 GTB (09:24)
[2018-10-30] MEDS ORDERED: DEXL60CA2 GTB (09:25)
[2018-10-30] MEDS ORDERED: FERR220S19 GTB (09:27)
[2018-10-30] MEDS ORDERED: MULT-542 GTB (09:28)
[2018-10-30] MEDS ORDERED: KEP100S GTB (09:28)
[2018-10-30] MEDS ORDERED: POTA20LI15 GTB (09:30)
[2018-10-30] MEDS ORDERED: METO10TA3 GTB (09:31)
[2018-10-30] MEDS ORDERED: ACET-2047 GTB (09:34)
[2018-10-30] MEDS ORDERED: ACET325T45 GTB (09:34)
[2018-10-30] MEDS ORDERED: CRAN3875 GTB (09:35)
[2018-10-30] MEDS ORDERED: ASCO500C7 GTB (09:35)
[2018-10-30] MEDS ORDERED: ACETAMINOPHEN 650 MG SUPP PR ONE (12:30)
[2018-10-30] MEDS ORDERED: IBUPROFEN 800 MG TAB GTB ONE (12:30)
[2018-10-30] MEDS ORDERED: SOD CHLORIDE 0.9% 1,000 ML IV ONE (13:00)
[2018-10-30] MEDS ORDERED: ACETAMINOPHEN 650MG/20.3ML CUP GTB STA (20:48)
[2018-10-30] MEDS ORDERED: ALBUTEROL 0.083% (NEB) 2.5 MG/3 ML AMP NEB PRN ×2 (22:00)
[2018-10-30] MEDS ORDERED: METOCLOPRAMIDE 10 MG TAB GTB PRN (22:00)
[2018-10-30] MEDS ORDERED: LEVETIRACETAM (100 MG/ML PO SYG) GTB SCH (22:00)
[2018-10-30] MEDS ORDERED: ACETAMINOPHEN 325 MG TAB GTB PRN ×2 (22:00)
[2018-10-30] MEDS: DEXTROSE 5%-0.45% NACL 1,000 ML IV SCH (22:02)
[2018-10-30 22:35] VITALS: PULSE 139
[2018-10-30 22:53] VITALS: RESP 31
[2018-10-30 23:00] VITALS: BP 98/65; PULSE 120; RESP 20
[2018-10-30] MEDS: LEVETIRACETAM (100 MG/ML) 5ML CUP GTB SCH (23:34)
[2018-10-30] MEDS: FERROUS SULFATE 60 MG/ML 5ML CUP PO SCH (23:34)
[2018-10-31] VITALS (23 sets, daily range): BP systolic 94–103; BP diastolic 59–70; PULSE 115–131; RESP 15–32
[2018-10-31] MEDS: PANTOPRAZOLE (EC) 40 MG TAB PO SCH (06:04)
[2018-10-31] MEDS ORDERED: VANCOMYCIN IV PER PHARMACY XX SCH (07:00)
--- NOTE | 2018-10-31 08:03 | HP ---
Date/Time of Note Date/Time of Note DATE: 10/30/18 TIME: 21:35 Assessment/Plan VTE Prophylaxis SCD contraindicated: other Pharmacological prophylaxis: other Pharm contraindication: other Lines/Catheters IV Catheter Type (from Nrsg): Saline Lock Assessment/Plan Assessment/Plan DO NT RESUSCITATE/COMFORT MEASURES ONLY Non-ST elevated myocardial infarction (non-STEMI) - elevated Troponin - cardiology consult- Dr Flor notified - admit to tele - see admission orders Pyelonephritis - ID consult- Dr Matias notified - am labs Respiratory insufficiency - Pulmonary notified - Elevated Lipase- possible Pancreatitis - Gi Dr Walton notified - NPO except meds - IVF - am lipase - Transaminitis - Seizure disorder - cont Kepprs - Seizure precautions - Acute renal insufficiency- BUN 45 - ivf - nephro consult if no improvement -Dysphagia - aspiration precautions - SP gt placement - Schizophrenia- no acute issues - SCD for dvt prophylaxis Patient seen in collaboration with Dr Courtney. DW staff Result Diagram: 10/30/18 0733 10/30/18 0733 Results 24hrs Laboratory Tests Test 10/30/18 07:28 10/30/18 07:33 10/30/18 09:47 10/30/18 11:25 POC Venous Lactate 1.4 1.3 White Blood Count 21.5 #H Red Blood Count 5.12 # Hemoglobin 11.8 #L Hematocrit 37.9 #L Mean Corpuscular 74.0 L Volume Mean Corpuscular 23.0 L Hemoglobin Mean Corpuscular 31.1 L Hemoglobin Concent Red Cell 17.0 H Distribution Width Platelet Count 373 # Mean Platelet Volume 13.0 H Immature 1.200 H Granulocytes % Neutrophils % 90.2 H Lymphocytes % 3.7 L Monocytes % 4.6 Eosinophils % 0.0 Basophils % 0.3 Nucleated Red Blood 0.0 Cells % Immature 0.250 H Granulocytes # Neutrophils # 19.4 H Lymphocytes # 0.8 Monocytes # 1.0 H Eosinophils # 0.0 Basophils # 0.1 Nucleated Red Blood 0.0 Cells # Prothrombin Time 15.5 H Prothrombin Time 1.2 Ratio INR International 1.22 Normalized Ratio Activated 34.9 Partial Thromboplast Time Urine Color ALDO Urine Clarity CLOUDY A Urine pH 8.0 Urine Specific 1.020 [place] Urine Ketones NEGATIVE Urine Nitrite NEGATIVE Urine Bilirubin NEGATIVE Urine Urobilinogen 2+ H Urine Leukocyte 3+ H Esterase Urine Microscopic > 182 H RBC Urine Microscopic 159 H WBC Urine Squamous FEW Epithelial Cells Urine Calcium MODERATE Oxalate Crystals Urine Bacteria FEW A Urine Hemoglobin 2+ H Urine Glucose NEGATIVE Urine Total Protein 3+ H Sodium Level 142 Potassium Level 4.5 Chloride Level 109 Carbon Dioxide Level 20 L Anion Gap 13 Blood Urea Nitrogen 45 H Creatinine 1.17 Est Glomerular > 60 Filtrat Rate mL/min Glucose Level 177 Lactic Acid Level 1.7 1.7 Calcium Level 8.6 Total Bilirubin 0.3 Direct Bilirubin 0.00 Indirect Bilirubin 0.3 Aspartate Amino 53 H Transf (AST/SGOT) Alanine 35 Aminotransferase (AL T/SGPT) Alkaline Phosphatase 62 Troponin I 0.161 *H Total Protein 8.5 H Albumin 3.8 Globulin 4.70 H Albumin/Globulin 0.80 Ratio Amylase Level 357 H Lipase 1712 H HPI/ROS Admit Date/Time Admit Date/Time Hx of Present Illness HPI This is a 47-year-old male, SNF resident at [facility]. His past medical history includes Vent dependent Respiratory Failure, anoxic brain injury and encephalopathy, seizure disorder secondary to his anoxic brain injury, dysphagia, sp GT placement . The patient is admitted with c/o changes in his mental status. The patient has flexion contraction of the upper extremities and nursing staff indicated that he did not appear as rigid in his upper extremities. Patient is lethargic at present. He is DO NOT RESUSCITATE with c omfort measures only. Patient is aditted under [facility]ay[facility] Martínez for further treatment/evaluation. Plan of care dw staff. ROS All systems reviewed and are negative except as per history of present illness. Medications Home Meds Reported Medications Ipratropium-Albuterol (Ipratropium-Albuterol) 0.5-3 Mg/3 Ml Ampul.neb, 3 ML INHALATION Q3H PRN for WHEEZING AND SOB, #30 VIAL 01/14/17 Ipratropium-Albuterol (Ipratropium-Albuterol) 0.5-3 Mg/3 Ml Ampul.neb, 3 ML INHALATION Q6 PRN for WHEEZING AND SOB, #30 VIAL 01/14/17 Cranberry Extract (Cranberry) 425 Mg Capsule, 425 MG PO BID, CAP 01/14/17 Ondansetron Hcl* (Zofran*) 4 Mg Tablet, 4 MG GTB Q6H PRN for NAUSEA AND OR VOMITING, TAB 01/14/17 Zinc Sulfate* (Zinc Sulfate*) 220 Mg Tablet, 220 MG GTB DAILY, TAB 01/14/17 Cran/Vitc/Mannose/Inulin/Brom (Uti-Stat Liquid) 3,875 Mg/30 Ml Liquid, 3875 MG GTB DAILY 01/14/17 Acetaminophen* (Acetaminophen*) 650 Mg Tablet, 650 MG PO TRACH CHANGE, #30 TAB GIVE 30 MIN PRIOR 01/14/17 Famotidine* (Pepcid*) 20 Mg Tablet, 20 MG GTB BID, #60 TAB 01/14/17 Ferrous Sulfate (Ferrous Sulfate) 300 Mg/5 Ml Liquid, 330 MG GTB BID 01/14/17 Chlorhexidine Gluconate (Peridex) 473 Ml Mouthwash, 15 ML MM Q12, BOTTLE 01/14/17 Metoclopramide* (Reglan*) 10 Mg/10 Ml Soln, 10 MG GTB Q6, ML 01/14/17 Docusate Sodium* (Colace*) 100 Mg Capsule, 100 MG GTB QHS, #30 CAP 12/16/16 Bisacodyl* (Bisacodyl*) 10 Mg Supp, 10 MG OH DAILY PRN for PRN, SUPP 12/16/16 Sod Phosphate/Sod Biphosphate* (Fleet* Enema Pediatric) 66.6 Ml Soln, 66.6 ML OH Q2DAYS PRN for CONSTIPATION, ENEMA 12/16/16 Magnesium Hydroxide* (Milk Of Magnesia*) 400 Mg/5 Ml Oral.susp, 30 ML GTB DAILY, ML 12/16/16 Multivit &Minerals/Ferrous Fum (MULTIVITAMIN LIQUID) 9 Mg/15 Ml Liquid, 5 ML GTB DAILY 12/16/16 Ascorbic Acid (Vitamin C) 500 Mg Tab, 500 MG GTB DAILY, TAB 12/16/16 Acetaminophen* (Tylenol*) 500 Mg Tab, 1000 MG GTB Q4H PRN for MODERATE PAIN 4- 11/15, TAB 12/16/16 Acetaminophen* (Tylenol*) 325 Mg Tablet, 650 MG GTB Q4H PRN for MILD PAIN LEVEL 1-3, TAB FOR FEVER 101 AND ABOVE,FOR TRACH TUBE CHANGE 12/16/16 Levetiracetam* (Keppra* (Ped)) 100 Mg/Ml Liq, 15 ML GTB BID for 30 Days, BOTTLE 12/16/16 Metoprolol Tartrate* (Lopressor*) 25 Mg Tab, 12.5 MG GTB BID, #60 TAB HOLD IF SBP<110 12/16/16 Lansoprazole* (Lansoprazole*) 30 Mg Capsule.dr, 30 MG GTB DAILY, CAP 12/16/16 Enoxaparin Sodium* (Lovenox*) 30 Mg/0.3 Ml Disp.syrin, 30 MG SQ DAILY, SYR 12/16/16 Aspirin* (Aspirin* EC) 81 Mg Tablet.dr, 81 MG GTB DAILY, TAB 12/16/16 Allergies Allergies: Coded Allergies: No Known Drug Allergy (Unverified Allergy, Unknown, 01/14/17) ROS Subjective hx not possible: pt non-verbal PMH/Family/Social Past Medical History PMhx/Soc Hx Neurological Disorder: Yes (chronic alteredv mental status) Hx Respiratory Disorders: Yes (Respairatory Failure,vent. dependent) Hx Cardiac Disorders: Yes (Cardiac arrest 2009) Hx Psychiatric Problems: Yes (Shizophrenia) Hx Miscellaneous Medical Probl: Yes (seizure) Smoking Status: Unknown if ever smoked Medications Current Medications Ondansetron HCl (Zofran Inj) 4 mg ER BRIDGE PRN IV NAUSEA/VOMITING; Start 10/30/18 at 08:30; Stop 10/31/18 at 08:29 Coded Allergies: No Known Drug Allergy (Unverified Allergy, Unknown, 10/30/18) Family History Significant Family History: no pertinent family hx Social History Smoking Status: Unknown if ever smoked Drug Use: other (no recored data) Exam/Review of Systems Vital Signs Vitals Vital Signs Date Temp Pulse Resp B/P (MAP) Pulse Ox O2 O2 Flow FiO2 Time Delivery Rate 10/30/18 135 27 99 50 21:32 10/30/18 104.3 97/77 (84) [place] 21:23 l Ventilato r Exam Constitutional: non-verbal Psych: nl mood/affect Eyes: nl lids, nl sclera, other (trach inatct) ENMT: nl external ears & nose Neck: non-tender Respiratory: diminished breath sounds Cardiovascular: nl pulses, other (s1s2) Gastrointestinal: soft, other (gt intact) Musculoskeletal: joint tenderness, muscle weakness, range of motion Extremities: normal pulses Neurological: unresponsive Skin: other SADEORA,SHELLEY October 30, 2018 21:45
--- NOTE | 2018-10-31 08:05 | PN ---
Date/Time of Note Date/Time of Note DATE: 10/31/18 TIME: 08:04 Assessment/Plan VTE Prophylaxis SCD contraindicated: other Pharmacological prophylaxis: other Pharm contraindication: other Lines/Catheters IV Catheter Type (from Nrs): Saline Lock Urinary Cath still in place: No Assessment/Plan Assessment/Plan DO NT RESUSCITATE/COMFORT MEASURES ONLY Non-ST elevated myocardial infarction (non-STEMI) - elevated Troponin- 2.550 - cardiology consult- Dr Flor notified - tele monitoring Pyelonephritis - per ID consult- Dr Matias - am labs Respiratory insufficiency - Pulmonary follows - Elevated Lipase- possible Pancreatitis - per Gi - Dr Walton - NPO except meds - IVF - Transaminitis - Anemia- Hgb 10.8 - monitor CBC - Seizure disorder - cont Kepprs - Seizure precautions - Acute renal insufficiency- BUN trended down to 35 - cont ivf - nephro consult if no improvement -Dysphagia - aspiration precautions - SP gt placement - Schizophrenia- no acute issues - SCD for dvt prophylaxis Patient seen in collaboration with Dr Courtney. DW staff Result Diagram: 10/31/18 0457 10/31/18 0457 Results 24hrs Laboratory Tests Test 10/30/18 09:47 10/30/18 11:25 10/31/18 04:57 POC Venous Lactate 1.3 Lactic Acid Level 1.7 White Blood Count 8.1 # Red Blood Count 4.72 Hemoglobin 10.8 L Hematocrit 36.1 L Mean Corpuscular Volume 76.5 L Mean Corpuscular Hemoglobin 22.9 L Mean Corpuscular Hemoglobin Concent 29.9 L Red Cell Distribution Width 17.4 H Platelet Count 197 # Mean Platelet Volume 12.9 H Immature Granulocytes % 0.700 H Neutrophils % 80.1 H Lymphocytes % 14.3 L Monocytes % 4.8 Eosinophils % 0.0 Basophils % 0.1 Nucleated Red Blood Cells % 0.0 Immature Granulocytes # 0.060 H Neutrophils # 6.5 Lymphocytes # 1.2 Monocytes # 0.4 Eosinophils # 0.0 Basophils # 0.0 Nucleated Red Blood Cells # 0.0 Sodium Level 146 H Potassium Level 3.7 Chloride Level 116 H Carbon Dioxide Level 21 Anion Gap 9 Blood Urea Nitrogen 34 #H Creatinine 0.77 Est Glomerular Filtrat Rate mL/min > 60 Glucose Level 156 Calcium Level 8.0 L Total Bilirubin 0.3 Direct Bilirubin 0.00 Indirect Bilirubin 0.3 Aspartate Amino Transf (AST/SGOT) 78 H Alanine Aminotransferase (ALT/SGPT) 35 Alkaline Phosphatase 43 Total Protein 6.9 Albumin 3.1 L Globulin 3.80 H Albumin/Globulin Ratio 0.81 Lipase 854 H Subjective 24 Hr Interval Summary Free Text/Dictation NAD resting; seems comfortable on trach to vent afebrile no new events reported last night dw staff Subjective hx not possible: pt non-verbal Constitutional: requiring O2 Exam/Review of Systems Exam Vitals Vital Signs Date Temp Pulse Resp B/P (MAP) Pulse Ox O2 O2 Flow FiO2 Time Delivery Rate 10/31/18 110 20 94 100 07:45 10/31/18 98.3 103/64 07:42 (77) 10/30/18 Mechanical 23:00 Ventilator Intake and Output 10/30/18 10/30/18 10/31/18 1515:00 23:00 07:00 IntakeIntake Total 150 ml BalanceBalance 150 ml Constitutional: non-verbal, frail Eyes: nl lids, nl sclera ENMT: nl external ears & nose Neck: non-tender, other (trach intact) Respiratory: diminished breath sounds (at bases bilatrally) Cardiovascular: nl pulses, other (s1s2) Gastrointestinal: soft, non-tender, other (gt intact) Musculoskeletal: muscle weakness, range of motion Extremities: normal pulses Neurological: unresponsive Skin: other Results Results 24hrs Laboratory Tests Test 10/30/18 09:47 10/30/18 11:25 10/31/18 04:57 POC Venous Lactate 1.3 Lactic Acid Level 1.7 White Blood Count 8.1 # Red Blood Count 4.72 Hemoglobin 10.8 L Hematocrit 36.1 L Mean Corpuscular Volume 76.5 L Mean Corpuscular Hemoglobin 22.9 L Mean Corpuscular Hemoglobin Concent 29.9 L Red Cell Distribution Width 17.4 H Platelet Count 197 # Mean Platelet Volume 12.9 H Immature Granulocytes % 0.700 H Neutrophils % 80.1 H Lymphocytes % 14.3 L Monocytes % 4.8 Eosinophils % 0.0 Basophils % 0.1 Nucleated Red Blood Cells % 0.0 Immature Granulocytes # 0.060 H Neutrophils # 6.5 Lymphocytes # 1.2 Monocytes # 0.4 Eosinophils # 0.0 Basophils # 0.0 Nucleated Red Blood Cells # 0.0 Sodium Level 146 H Potassium Level 3.7 Chloride Level 116 H Carbon Dioxide Level 21 Anion Gap 9 Blood Urea Nitrogen 34 #H Creatinine 0.77 Est Glomerular Filtrat Rate mL/min > 60 Glucose Level 156 Calcium Level 8.0 L Total Bilirubin 0.3 Direct Bilirubin 0.00 Indirect Bilirubin 0.3 Aspartate Amino Transf (AST/SGOT) 78 H Alanine Aminotransferase (ALT/SGPT) 35 Alkaline Phosphatase 43 Total Protein 6.9 Albumin 3.1 L Globulin 3.80 H Albumin/Globulin Ratio 0.81 Lipase 854 H Medications Medication Current Medications Ondansetron HCl (Zofran Inj) 4 mg ER BRIDGE PRN IV NAUSEA/VOMITING; Start 10/30/18 at 08:30; Stop 10/31/18 at 08:29 Dextrose/Sodium Chloride 1,000 ml @ 70 mls/hr [id number] IV Last administered on 10/30/18at 22:02; Admin Dose 70 MLS/HR; Start 10/30/18 at 22:00 Acetaminophen (Tylenol Tab) 650 mg BID PRN GTB PAIN MANAGEMENT; Start 10/30/18 at 22:00 Acetaminophen (Tylenol Tab) 650 mg Q6 PRN GTB PAIN; Start 10/30/18 at 22:00 Albuterol (Proventil 0.083% (Neb)) 2.5 mg Q3H RESP THERAPY PRN NEB WHEEZING AND SOB; Start 10/30/18 at 22:00 Albuterol (Proventil 0.083% (Neb)) 2.5 mg Q6H RESP THERAPY PRN NEB WHEEZING AND SOB; Start 10/30/18 at 22:00 Ascorbic Acid (Vitamin C) 500 mg DAILY GTB ; Start 10/31/18 at 09:00 Docusate Sodium (Colace) 100 mg QHS PO ; Start 10/31/18 at 21:00 Metoclopramide HCl (Reglan) 10 mg Q6H PRN GTB NAUSEA AND/OR VOMITING; Start 10/30/18 at 22:00 Multivitamins (Multivitamin) 30 ml DAILY GTB ; Start 10/31/18 at 09:00 Pantoprazole (Protonix Tab) 40 mg DAILY@0600 PO Last administered on 10/31/18at 06:04; Admin Dose 40 MG; Start 10/31/18 at 06:00 Ferrous Sulfate (Feosol Liquid Cup) 300 mg BID PO Last administered on 10/30/18at 23:34; Admin Dose 300 MG; Start 10/30/18 at 22:00 Levetiracetam (Keppra Liquid) 1,500 mg BID GTB Last administered on 10/30/18at 23:34; Admin Dose 1,500 MG; Start 10/30/18 at 22:30 Potassium Chloride (Potassium Chloride Pwd/Soln) 20 meq DAILY GTB ; Start 10/31/18 at 09:00 Acetaminophen (Tylenol Liquid) 650 mg Q4H PRN GTB MILD PAIN(1-3)OR ELEVATED TEMP; Start 10/31/18 at 00:00 Vancomycin HCl (Vanco Iv Per Pharmacy) VANCOMYCIN PER PHARMACY PER PROTOCOL XX ; Start 10/31/18 at 07:00 Vancomycin HCl 250 ml @ 125 mls/hr Q12H IVPB ; Start 10/31/18 at 08:00 SHELLEY HERNANDEZ October 31, 2018 08:05
[2018-10-31] MEDS ORDERED: POTASSIUM CHLORIDE (1.33 MEQ/ML PO SYG) GTB SCH (09:00)
[2018-10-31] MEDS: POTASSIUM CHLORIDE 20 MEQ POWDER FOR ORAL SOLN GTB SCH (09:19)
[2018-10-31] MEDS: VANCOMYCIN 1 GM 250 ML IVPB SCH ×2 (09:19→20:02)
[2018-10-31] MEDS: FERROUS SULFATE 60 MG/ML 5ML CUP PO SCH ×2 (09:19→22:28)
[2018-10-31] MEDS: MULTIVITAMINS 30 ML CUP GTB SCH (09:19)
[2018-10-31] MEDS: LEVETIRACETAM (100 MG/ML) 5ML CUP GTB SCH ×2 (09:19→22:27)
[2018-10-31] MEDS: ASCORBIC ACID 500 MG TAB GTB SCH (09:19)
--- NOTE | 2018-10-31 10:45 | CONS ---
Assessment/Plan Assessment/Plan Assessment/Plan (Daily) H EENT exam; supple neck, no JVD. No lymphadenopathy. Midline trachea. No thyromegaly. Tracheostomy in place. Patient has multiple carious teeth. Chest exam; diminished but clear breath sounds. S1-S2 audible, no murmurs. Regular rhythm. Abdomen exam; soft, no organomegaly. G-tube in place. Bowel sounds audible. Extremity exam; no peripheral edema clubbing. Patient has a multiple flexion contractures. HAND MOLDER exam; patient remains unresponsive. Ventilator setting; AC of 14, tidal volume 500, PEEP of 5, 80% FiO2. Chest x-ray is essentially clear. Assessment and recommendations; 1. Patient with history of VDRF and severe encephalopathy admitted for UTI with possible pyelonephritis. Currently on appropriate antimicrobial regimen. 2. Hypoxemia. Etiology is unclear. 3. Possibly early pneumonia. 4. History of seizure disorder. 5. History of diabetes and hypertension. 6. Acute bronchitis with interval improvement in serum lipase level. Continue current supportive care. Obtain ABG. Further recommendations once ABG is performed. Obtain follow-up chest x-ray in 24 hours as well. Consultation Date/Type/Reason Admit Date/Time October 30, 2018 at 08:15 Initial Consult Date Type of Consult Pulmonary Patient is a 47-year-old male who has been transferred from detention because of fever. Patient had been diagnosed a UTI with possibly pyonephritis. Currently on appropriate antimicrobial regimen. Because of advanced encephalopathy, patient remains totally noncommunicative. However, patient did not appear to be in any distress. Past medical history; 1. Advanced encephalopathy 2. VDRF 3. G-tube placement. 4. Seizure disorder. Medications; reviewed. Allergies; none. Social history; not available. Family history; not available. Occupational history; patient is on disability. Review of system; unable to be obtained. General exam; young male, on ventilator via tracheostomy, non communicative and unresponsive. Currently no distress. Date/Time of Note DATE: 10/31/18 TIME: 10:41 Exam/Review of Systems Exam Vitals Vital Signs Date Temp Pulse Resp B/P (MAP) Pulse Ox O2 O2 Flow FiO2 Time Delivery Rate 10/31/18 126 28 99 80 09:19 10/31/18 98.3 103/64 07:42 (77) 10/30/18 Mechanical 23:00 Ventilator Intake and Output 10/30/18 10/30/18 10/31/18 1515:00 23:00 07:00 IntakeIntake Total 150 ml BalanceBalance 150 ml Results Result Diagram: 10/31/18 0457 10/31/18 0457 Results 24hrs Laboratory Tests Test 10/30/18 11:25 10/31/18 04:57 Lactic Acid Level 1.7 White Blood Count 8.1 # Red Blood Count 4.72 Hemoglobin 10.8 L Hematocrit 36.1 L Mean Corpuscular Volume 76.5 L Mean Corpuscular Hemoglobin 22.9 L Mean Corpuscular Hemoglobin Concent 29.9 L Red Cell Distribution Width 17.4 H Platelet Count 197 # Mean Platelet Volume 12.9 H Immature Granulocytes % 0.700 H Neutrophils % 80.1 H Lymphocytes % 14.3 L Monocytes % 4.8 Eosinophils % 0.0 Basophils % 0.1 Nucleated Red Blood Cells % 0.0 Immature Granulocytes # 0.060 H Neutrophils # 6.5 Lymphocytes # 1.2 Monocytes # 0.4 Eosinophils # 0.0 Basophils # 0.0 Nucleated Red Blood Cells # 0.0 Sodium Level 146 H Potassium Level 3.7 Chloride Level 116 H Carbon Dioxide Level 21 Anion Gap 9 Blood Urea Nitrogen 34 #H Creatinine 0.77 Est Glomerular Filtrat Rate mL/min > 60 Glucose Level 156 Calcium Level 8.0 L Total Bilirubin 0.3 Direct Bilirubin 0.00 Indirect Bilirubin 0.3 Aspartate Amino Transf (AST/SGOT) 78 H Alanine Aminotransferase (ALT/SGPT) 35 Alkaline Phosphatase 43 Troponin I 2.550 *H Total Protein 6.9 Albumin 3.1 L Globulin 3.80 H Albumin/Globulin Ratio 0.81 Lipase 854 H Medications Medication Current Medications Dextrose/Sodium Chloride 1,000 ml @ 70 mls/hr [id number] IV Last administered on 10/30/18at 22:02; Admin Dose 70 MLS/HR; Start 10/30/18 at 22:00 Acetaminophen (Tylenol Tab) 650 mg BID PRN GTB PAIN MANAGEMENT; Start 10/30/18 at 22:00 Acetaminophen (Tylenol Tab) 650 mg Q6 PRN GTB PAIN; Start 10/30/18 at 22:00 Albuterol (Proventil 0.083% (Neb)) 2.5 mg Q3H RESP THERAPY PRN NEB WHEEZING AND SOB; Start 10/30/18 at 22:00 Albuterol (Proventil 0.083% (Neb)) 2.5 mg Q6H RESP THERAPY PRN NEB WHEEZING AND SOB; Start 10/30/18 at 22:00 Ascorbic Acid (Vitamin C) 500 mg DAILY GTB Last administered on 10/31/18 09:19; Admin Dose 500 MG; Start 10/31/18 at 09:00 Docusate Sodium (Colace) 100 mg QHS PO ; Start 10/31/18 at 21:00 Metoclopramide HCl (Reglan) 10 mg Q6H PRN GTB NAUSEA AND/OR VOMITING; Start 10/30/18 at 22:00 Multivitamins (Multivitamin) 30 ml DAILY GTB Last administered on 10/31/18 09:19; Admin Dose 30 ML; Start 10/31/18 at 09:00 Pantoprazole (Protonix Tab) 40 mg DAILY@0600 PO Last administered on 10/31/18at 06:04; Admin Dose 40 MG; Start 10/31/18 at 06:00 Ferrous Sulfate (Feosol Liquid Cup) 300 mg BID PO Last administered on 10/31/18 09:19; Admin Dose 300 MG; Start 10/30/18 at 22:00 Levetiracetam (Keppra Liquid) 1,500 mg BID GTB Last administered on 10/31/18 09:19; Admin Dose 1,500 MG; Start 10/30/18 at 22:30 Potassium Chloride (Potassium Chloride Pwd/Soln) 20 meq DAILY GTB Last administered on 10/31/18:; Admin Dose 20 MEQ; Start 10/31/18 at 09:00 Acetaminophen (Tylenol Liquid) 650 mg Q4H PRN GTB MILD PAIN(1-3)OR ELEVATED TEMP; Start 10/31/18 at 00:00 Vancomycin HCl (Vanco Iv Per Pharmacy) VANCOMYCIN PER PHARMACY PER PROTOCOL XX ; Start 10/31/18 at 07:00 Vancomycin HCl 250 ml @ 125 mls/hr Q12H IVPB Last administered on 10/31/18 09:19; Admin Dose 125 MLS/HR; Start 10/31/18 at 08:00 MI JEFFERS October 31, 2018 10:44
[2018-10-31] MEDS: DEXTROSE 5%-0.45% NACL 1,000 ML IV SCH (11:39)
[2018-10-31] MEDS: ACETAMINOPHEN 650MG/20.3ML CUP GTB PRN ×2 (12:15→20:11)
[2018-10-31] MEDS ORDERED: ENOXAPARIN 60 MG/0.6 ML SYG SC ONE (12:30)
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
--- NOTE | 2018-10-31 16:21 | CONS ---
Assessment/Plan Assessment/Plan Hospital Course (Demo Recall) ID INITIAL ASSESSMENT Patient is a 47 yo [place] male who is well-known to Dr. Matias and his team consultants via multiple prior admission to [facility] for variety of recu rrent septic conditions. He has hx of chronic vegetative state with severe anoxic brain injury due to witness cardiac arrest associated with grand mal seizure activity by his brother who found him down in his backyard where they were both living in OCTOBER 2009. Additionally, he has a history of schizophrenia and 3PPD tobacco habit with suicide attempt prior to cardiac arrest in 2009. He underwent tracheostomy and peg placement here at [facility] in November 2009, and has remained in persistent vegetative state since and dependent on the ventilator and has developed contracted extremities. Notably, the patient is also DO NOT RESUSCITATE with comfort measures only. Patient admitted to [facility] and referred to ID for ABX management with: 1. Acute sepsis w/transient shock as evidenced by the following: * Fevers > 105.+ on arrival to ED == IMPROVING * SVT @ 156 BPM == Currently in Sinus rhythm HR 120 * Hypotension requiring pressors = RESOLVED * WBC 21.5 w/left shift = IMPROVING * Lactic acid 1.7 * (+)UA w/pyuria, many bacteria, moderate CA+ crystals * (+)troponin leak 0.16 * 10/30/18 BCX (+) 2/2 Bottles GPC * 10/30/18 Urine Cx (+) GNR Preliminary 2. GPC Bacteremia 2/2 bottles from ED -- Suspect PICC line infection 3. GNR complicated UTI /pyelonephritis 4. CA+ Crystals found in UA -- r/o nephrolithiasis = r/o obstructive uropathy 5. Elevated Lipase of uncertain significance 6. Chronic VDRF -> s/p Trach @ [facility] NOVEMBER 2009 * 10/30/18 CXR: IMPRESSION: 1. No congestive heart failure. 2. Minimal patchy density at the bases likely all due to atelectasis. No definite infiltrates however recommend clinical correlation 7. Risk factors for ASP PNA = GERD, Hiatal Hernia, hx of Esophagitis (reflux), peg 8. Dysphagia -> s/p PEG @ [facility] November 2009 9. 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 Seizure disorder on Keppra = Avoid Carbapenems if possible 11. Bedbound state w/BUEXT flexion contractures 12. Penile, scrotal, liss-anal moisture associated dermatitis w/erythema 13. Bilateral feet decubs = minor INVASIVES: Trach, Peg, FC, LUEXT PICC (Present on admission) ABX ALLERGIES: KNDA CURRENT ABX: Vanco IV + s/p Cefepime x1 in ED 10/30/18 (not continued today) ID INITIAL RECOMMENDATIONS 1. Continue Cefepime -> Rx placed today 2. Continue Vanco IV 3. Repeat BC x via PICC Line -- consider change PICC this admission 4. Swab Nares for MRSA 5. Local wound / liss-anal skin care 6. Renal US -- r/o stones per (+)CA+ Crystals in UA 7. F/U GNR UTI micro pending * Thank you - report to be given to ID attending - Will continue to follow the patient with you. Consultation Date/Type/Reason Admit Date/Time October 30, 2018 at 08:15 Type of Consult INFECTIOUS DISEASES * Thank you for the privilege of ID consultation to "Team Polly"->Patient is known to Dr. Matias from multiple prior admissions to [facility]. Reason for Consultation Antibiotic management for sepsis, GPC bacteremia, GNR UTI, acute AMS Date/Time of Note DATE: 10/31/18 TIME: 15:14 Hx of Present Illness Patient is a 47 yo [place] male who is well-known to Dr. Matias and his team consultants via multiple prior admission to [facility] for variety of recurrent septic conditions. He has hx of chronic vegetative state with severe anoxic brain injury due to witness cardiac arrest associated with grand mal seizure activity by his brother who found him down in his backyard where they were both living. Additionally, he has a history of schizophrenia and 3PPD tobacco habit with suicide attempt prior to cardiac arrest in 2009. He underwent tracheostomy and peg placement here at [facility] in November 2009, and has remained in persistent vegetative state since and dependent on the ventilator and has developed contracted extremities. Notably, the patient is also DO NOT RESUSCITATE with comfort measures only. PRELIMINARY HOSPITAL COURSE EVALUATION AND TREATMENT * Patient was initiated on Vanco IV and given Cefepime x1 in ED which has not been continued * ED work up revealed acute sepsis w/shock as evidenced by the following: * Fevers > 105.+ on arrival to ED * SVT @ 156 BPM * Hypotension requiring pressors * WBC 21.5 w/left shift * Lactic acid 1.7 * (+)UA w/pyuria, many bacteria, moderate CA+ cystals * (+)troponin leak 0.16 * 10/30/18 BCX (+) 2/2 Bottles GPC * 10/30/18 Urine Cx (+) GNR Preliminary * 10/30/18 CXR: IMPRESSION: 1. No congestive heart failure. 2. Minimal patchy density at the bases likely all due to atelectasis. No definite inf iltrates however recommend clinical correlation / Subjective hx not possible: pt non-verbal Constitutional: febrile, requiring IVF Eyes: no complaints ENT: dysphagia, other (Trach dependent ) Respiratory: other (Ventilator dependent ) Cardiovascular: other (SVT on arrival ) Gastrointestinal: other (Peg dependent ) Genitourinary: other (UTI - FC in place ) Musculoskeletal: restricted range of motion (Bilateral upper ext flexion contractions ) Skin: skin lesions Neurologic: other (Chronic vegetative state) Endocrine: other (Unknown ) Lymphatic: other (Unknown ) Psychological: other (Hx of schizoprenia and suicide attempt remotely 2009 or prior ) Immunologic: other (Unknown ) Past Medical History Persistent vegetative state since OCTOBER 2009 due to severe anoxic brain injury s/p Cardiopulmonary arrest October 2009 - found down by brother in backyard non- responsive with difficulty breathing + GM SZS Seizure disorder on Kera Schizophrenia w/hx of hallucinations and remote suicide attempt on or before October 2009 Chronic VDRF -> s/p Trach @ [facility] NOVEMBER 2009 Dysphagia -> s/p PEG @ [facility] November 2009 Hx of Aspiration PNA HTN HLD COPD Former 2-3PPD tobaccoism x ~20+ years = ~60 pack/years GERD Hiatal Hernia Esophagitis Obesity - Prior weight high > 300# in 2009 R-humerus fx -> s/p 09/18/2011 ORIF w/intramedullary nailing by Dr. Zelda Gil @ [facility] / (+) MRSA Infected hematoma of left hallux debrided by Dr. Huerta 2011 Home Meds Reported Medications Ascorbic Acid* (Vitamin C*) 500 Mg Capsule.sa, 500 MG GTB DAILY, CAP 10/30/18 Cran/Vitc/Mannose/Inulin/Brom (Uti-Stat Liquid) 3,875 Mg/30 Ml Liquid, 3875 MG GTB BID 10/30/18 Acetaminophen* (Acetaminophen*) 650 Mg Tablet, 650 MG GTB TRACH CHANGE PRN for PAIN, #30 TAB 10/30/18 Acetaminophen* (Acetaminophen*) 325 Mg Tablet, 650 MG GTB BID PRN for PAIN MANAGEMENT, #30 TAB 10/30/18 Metoclopramide Hcl* (Metoclopramide Hcl*) 10 Mg Tablet, 10 MG GTB Q6H PRN for NAUSEA AND OR VOMITING, TAB 10/30/18 Potassium Chloride* (Potassium Chloride*) 20 Meq/15 Ml Liquid, 20 MEQ GTB DAILY, ML DILUTE WITH 120 CCS OF WATER 10/30/18 Multivitamin* (Daily Value*) 1 Each Tablet, 1 TAB GTB DAILY, TAB 10/30/18 Levetiracetam* (Keppra* (Ped)) 100 Mg/Ml Liq, 1500 MG GTB BID for 30 Days, BOTTLE 10/30/18 Ferrous Sulfate (Ferrous Sulfate) 220 Mg/5 Ml Solution, 300 MG GTB BID 10/30/18 Dexlansoprazole (Dexilant) 60 Mg Cap., 60 MG GTB DAILY, #30 CAP 10/30/18 Cranberry Extract (Cranberry) 425 Mg Capsule, 425 MG GTB BID, CAP 10/30/18 Docusate Sodium* (Colace*) 100 Mg Capsule, 100 MG GTB QHS, #60 CAP 10/30/18 Chlorhexidine Gluconate (Peridex) 473 Ml Mouthwash, 15 ML MM Q12, BOTTLE 10/30/18 Albuterol Sulfate* (Albuterol Sulfate* Neb) 0.083%-3 Ml Neb, 2.5 MG NEB Q6 PRN for WHEEZING AND SOB, #30 VIAL 10/30/18 Albuterol Sulfate* (Albuterol Sulfate* Neb) 0.083%-3 Ml Neb, 2.5 MG NEB Q3H PRN for WHEEZING AND SOB, #30 VIAL 10/30/18 Discontinued Reported Medications Ipratropium-Albuterol (Ipratropium-Albuterol) 0.5-3 Mg/3 Ml Ampul.neb, 3 ML INHALATION Q3H PRN for WHEEZING AND SOB, #30 VIAL 01/14/17 Ipratropium-Albuterol (Ipratropium-Albuterol) 0.5-3 Mg/3 Ml Ampul.neb, 3 ML INHALATION Q6 PRN for WHEEZING AND SOB, #30 VIAL 01/14/17 Cranberry Extract (Cranberry) 425 Mg Capsule, 425 MG PO BID, CAP 01/14/17 Ondansetron Hcl* (Zofran*) 4 Mg Tablet, 4 MG GTB Q6H PRN for NAUSEA AND OR VOMITING, TAB 01/14/17 Zinc Sulfate* (Zinc Sulfate*) 220 Mg Tablet, 220 MG GTB DAILY, TAB 01/14/17 Cran/Vitc/Mannose/Inulin/Brom (Uti-Stat Liquid) 3,875 Mg/30 Ml Liquid, 3875 MG GTB DAILY 01/14/17 Acetaminophen* (Acetaminophen*) 650 Mg Tablet, 650 MG PO TRACH CHANGE, #30 TAB GIVE 30 MIN PRIOR 01/14/17 Famotidine* (Pepcid*) 20 Mg Tablet, 20 MG GTB BID, #60 TAB 01/14/17 Ferrous Sulfate (Ferrous Sulfate) 300 Mg/5 Ml Liquid, 330 MG GTB BID 01/14/17 Chlorhexidine Gluconate (Peridex) 473 Ml Mouthwash, 15 ML MM Q12, BOTTLE 01/14/17 Metoclopramide* (Reglan*) 10 Mg/10 Ml Soln, 10 MG GTB Q6, ML 01/14/17 Docusate Sodium* (Colace*) 100 Mg Capsule, 100 MG GTB QHS, #30 CAP 12/16/16 Bisacodyl* (Bisacodyl*) 10 Mg Supp, 10 MG DC DAILY PRN for PRN, SUPP 12/16/16 Sod Phosphate/Sod Biphosphate* (Fleet* Enema Pediatric) 66.6 Ml Soln, 66.6 ML DC Q2DAYS PRN for CONSTIPATION, ENEMA 12/16/16 Magnesium Hydroxide* (Milk Of Magnesia*) 400 Mg/5 Ml Oral.susp, 30 ML GTB DAILY, ML 12/16/16 Multivit &Minerals/Ferrous Fum (MULTIVITAMIN LIQUID) 9 Mg/15 Ml Liquid, 5 ML GTB DAILY 12/16/16 Ascorbic Acid (Vitamin C) 500 Mg Tab, 500 MG GTB DAILY, TAB 12/16/16 Acetaminophen* (Tylenol*) 500 Mg Tab, 1000 MG GTB Q4H PRN for MODERATE PAIN 4- 11/15, TAB 12/16/16 Acetaminophen* (Tylenol*) 325 Mg Tablet, 650 MG GTB Q4H PRN for MILD PAIN LEVEL 1-3, TAB FOR FEVER 101 AND ABOVE,FOR TRACH TUBE CHANGE 12/16/16 Levetiracetam* (Keppra* (Ped)) 100 Mg/Ml Liq, 15 ML GTB BID for 30 Days, BOTTLE 12/16/16 Metoprolol Tartrate* (Lopressor*) 25 Mg Tab, 12.5 MG GTB BID, #60 TAB HOLD IF SBP<110 12/16/16 Lansoprazole* (Lansoprazole*) 30 Mg Capsule.dr, 30 MG GTB DAILY, CAP 12/16/16 Enoxaparin Sodium* (Lovenox*) 30 Mg/0.3 Ml Disp.syrin, 30 MG SQ DAILY, SYR 12/16/16 Aspirin* (Aspirin* EC) 81 Mg Tablet.dr, 81 MG GTB DAILY, TAB 12/16/16 Medications Current Medications Dextrose/Sodium Chloride 1,000 ml @ 70 mls/hr [id number] IV Last administered on 10/31/18at 11:39; Admin Dose 70 MLS/HR; Start 10/30/18 at 22:00 Acetaminophen (Tylenol Tab) 650 mg BID PRN GTB PAIN MANAGEMENT; Start 10/30/18 at 22:00 Acetaminophen (Tylenol Tab) 650 mg Q6 PRN GTB PAIN; Start 10/30/18 at 22:00 Albuterol (Proventil 0.083% (Neb)) 2.5 mg Q3H RESP THERAPY PRN NEB WHEEZING AND SOB; Start 10/30/18 at 22:00 Albuterol (Proventil 0.083% (Neb)) 2.5 mg Q6H RESP THERAPY PRN NEB WHEEZING AND SOB; Start 10/30/18 at 22:00 Ascorbic Acid (Vitamin C) 500 mg DAILY GTB Last administered on 10/31/18at 09:19; Admin Dose 500 MG; Start 10/31/18 at 09:00 Docusate Sodium (Colace) 100 mg QHS PO ; Start 10/31/18 at 21:00 Metoclopramide HCl (Reglan) 10 mg Q6H PRN GTB NAUSEA AND/OR VOMITING; Start 10/30/18 at 22:00 Multivitamins (Multivitamin) 30 ml DAILY GTB Last administered on 10/31/18at 09:19; Admin Dose 30 ML; Start 10/31/18 at 09:00 Pantoprazole (Protonix Tab) 40 mg DAILY@0600 PO Last administered on 10/31/18at 06:04; Admin Dose 40 MG; Start 10/31/18 at 06:00 Ferrous Sulfate (Feosol Liquid Cup) 300 mg BID PO Last administered on 10/31/18 at 09:19; Admin Dose 300 MG; Start 10/30/18 at 22:00 Levetiracetam (Keppra Liquid) 1,500 mg BID GTB Last administered on 10/31/18at 09:19; Admin Dose 1,500 MG; Start 10/30/18 at 22:30 Potassium Chloride (Potassium Chloride Pwd/Soln) 20 meq DAILY GTB Last administered on 10/31/18at 09:19; Admin Dose 20 MEQ; Start 10/31/18 at 09:00 Acetaminophen (Tylenol Liquid) 650 mg Q4H PRN GTB MILD PAIN(1-3)OR ELEVATED TEMP Last administered on 10/31/18at 12:15; Admin Dose 650 MG; Start 10/31/18 at 00:00 Vancomycin HCl (Vanco Iv Per Pharmacy) VANCOMYCIN PER PHARMACY PER PROTOCOL XX ; Start 10/31/18 at 07:00 Vancomycin HCl 250 ml @ 125 mls/hr Q12H IVPB Last administered on 10/31/18at 09:19; Admin Dose 125 MLS/HR; Start 10/31/18 at 08:00 Allergies: Coded Allergies: No Known Drug Allergy (Unverified Allergy, Unknown, 10/30/18) Social History Smoking Status: Unknown if ever smoked Exam/Review of Systems Exam Vitals Vital Signs Date Temp Pulse Resp B/P (MAP) Pulse Ox O2 O2 Flow FiO2 Time Delivery Rate 10/31/18 124 30 93 80 14:47 10/31/18 98.6 13:07 10/31/18 94/59 (71) 11:40 10/30/18 Mechanical 23:00 Ventilator Intake and Output 10/30/18 10/30/18 10/31/18 1515:00 23:00 07:00 IntakeIntake Total 150 ml BalanceBalance 150 ml Constitutional: well developed, non-verbal, obese, other (Persitent vegetative state - unresponsive ) Psych: other (Calm - non-responsive ) Head: normocephalic, atraumatic Eyes: nl conjunctiva, nl sclera ENMT: nl external ears & nose, nl lips & teeth (Lower lip with deformity at bilateral corners ), other (Trach secure to Vent) Neck: supple Respiratory: crackles/rales, diminished breath sounds, other (Ventilator dependent ); No normal air movement, No wheezing Cardiovascular: regular rate and rhythm, other (Sinus tachycradia @ 120 BPM) Gastrointestinal: soft, other (PEG ) Genitourinary - Male: nl scrotum (Scrotal erythema - excoriation - moisture ass ociated ), other (FC); No nl penis (Penile head erythema = excoriation vs balantitis ? ), No discharge Musculoskeletal: muscle weakness, other (Flexion contraction BUEXT w/bilateral ); No nl extremities to inspection, No nl gait and stance, No muscle tone, No range of motion Extremities: other (Bilateral feet toe deformities and pressure ulcers see wou nd photos ) Neurological: unresponsive; No CONSULTING HR PROFESSIONAL II-XII intact, No nl mental status, No nl speech, No nl strength Skin: diaphoresis Lymph: nl lymph nodes Results Result Diagram: 10/31/18 0457 10/31/187 Results 24hrs Laboratory Tests Test 10/31/18 04:57 10/31/18 10:40 White Blood Count 8.1 # Red Blood Count 4.72 Hemoglobin 10.8 L Hematocrit 36.1 L Mean Corpuscular Volume 76.5 L Mean Corpuscular Hemoglobin 22.9 L Mean Corpuscular Hemoglobin Concent 29.9 L Red Cell Distribution Width 17.4 H Platelet Count 197 # Mean Platelet Volume 12.9 H Immature Granulocytes % 0.700 H Neutrophils % 80.1 H Lymphocytes % 14.3 L Monocytes % 4.8 Eosinophils % 0.0 Basophils % 0.1 Nucleated Red Blood Cells % 0.0 Immature Granulocytes # 0.060 H Neutrophils # 6.5 Lymphocytes # 1.2 Monocytes # 0.4 Eosinophils # 0.0 Basophils # 0.0 Nucleated Red Blood Cells # 0.0 Sodium Level 146 H Potassium Level 3.7 Chloride Level 116 H Carbon Dioxide Level 21 Anion Gap 9 Blood Urea Nitrogen 34 #H Creatinine 0.77 Est Glomerular Filtrat Rate mL/min > 60 Glucose Level 156 Calcium Level 8.0 L Total Bilirubin 0.3 Direct Bilirubin 0.00 Indirect Bilirubin 0.3 Aspartate Amino Transf (AST/SGOT) 78 H Alanine Aminotransferase (ALT/SGPT) 35 Alkaline Phosphatase 43 Troponin I 2.550 *H Total Protein 6.9 Albumin 3.1 L Globulin 3.80 H Albumin/Globulin Ratio 0.81 Lipase 854 H Blood Gas Specimen Source Blood arterial Arterial Blood Date Drawn 10/31/2018 11:30:10 AM Arterial Blood pH (Temp corrected) 7.490 H Arterial Blood pCO2 (Temp correct) 24.3 L Arterial Blood pO2 (Temp corrected) 63.6 L Arterial Blood HCO3 18.1 L Arterial Blood Base Excess -3.9 L Arterial Blood Oxygen Saturation 92.5 L Zechariah Test ACCEPTAB Arterial Blood Gas Puncture Site Right Radial Arterial Blood Carboxyhemoglobin 0.3 Arterial Blood Methemoglobin 0.1 Blood Gas A-a O2 Differential 481.3 H Oxyhemoglobin Percent 92.1 L Blood Gas Temperature 37.0 Blood Gas Respiration Rate 14.0 Blood Gas Actual Respiration Rate 26 Blood Gas Modality VENT - AC FiO2 80.0 Blood Gas Inspiratory Time 0.9 Blood Gas Tidal Volume 500.0 Blood Gas High PEEP Setting 5.0 Blood Gas Critical Value Read Back DR AURY RAMAN Blood Gas Notified Whom Fred [facility]ALL[facility] Blood Gas Notified Time 10/31/2018 11:42:12 AM Medications Medication Current Medications Dextrose/Sodium Chloride 1,000 ml @ 70 mls/hr [id number] IV Last administered on 10/31/18at 11:39; Admin Dose 70 MLS/HR; Start 10/30/18 at 22:00 Acetaminophen (Tylenol Tab) 650 mg BID PRN GTB PAIN MANAGEMENT; Start 10/30/18 at 22:00 Acetaminophen (Tylenol Tab) 650 mg Q6 PRN GTB PAIN; Start 10/30/18 at 22:00 Albuterol (Proventil 0.083% (Neb)) 2.5 mg Q3H RESP THERAPY PRN NEB WHEEZING AND SOB; Start 10/30/18 at 22:00 Albuterol (Proventil 0.083% (Neb)) 2.5 mg Q6H RESP THERAPY PRN NEB WHEEZING AND SOB; Start 10/30/18 at 22:00 Ascorbic Acid (Vitamin C) 500 mg DAILY GTB Last administered on 10/31/18 09:19; Admin Dose 500 MG; Start 10/31/18 at 09:00 Docusate Sodium (Colace) 100 mg QHS PO ; Start 10/31/18 at 21:00 Metoclopramide HCl (Reglan) 10 mg Q6H PRN GTB NAUSEA AND/OR VOMITING; Start 10/30/18 at 22:00 Multivitamins (Multivitamin) 30 ml DAILY GTB Last administered on 10/31/18 09:19; Admin Dose 30 ML; Start 10/31/18 at 09:00 Pantoprazole (Protonix Tab) 40 mg DAILY@0600 PO Last administered on 10/31/18at 06:04; Admin Dose 40 MG; Start 10/31/18 at 06:00 Ferrous Sulfate (Feosol Liquid Cup) 300 mg BID PO Last administered on 10/31/18 09:19; Admin Dose 300 MG; Start 10/30/18 at 22:00 Levetiracetam (Keppra Liquid) 1,500 mg BID GTB Last administered on 10/31/18 09:19; Admin Dose 1,500 MG; Start 10/30/18 at 22:30 Potassium Chloride (Potassium Chloride Pwd/Soln) 20 meq DAILY GTB Last administered on 10/31/18:19; Admin Dose 20 MEQ; Start 10/31/18 at 09:00 Acetaminophen (Tylenol Liquid) 650 mg Q4H PRN GTB MILD PAIN(1-3)OR ELEVATED TEMP Last administered on 10/31/18at 12:15; Admin Dose 650 MG; Start 10/31/18 at 00:00 Vancomycin HCl (Vanco Iv Per Pharmacy) VANCOMYCIN PER PHARMACY PER PROTOCOL XX ; Start 10/31/18 at 07:00 Vancomycin HCl 250 ml @ 125 mls/hr Q12H IVPB Last administered on 10/31/18 09:19; Admin Dose 125 MLS/HR; Start 10/31/18 at 08:00 GUNJAN CORRALES NP October 31, 2018 15:25
[2018-10-31] MEDS: CEFEPIME 1GM/50 ML (PMX) 50 ML IVPB SCH ×2 (16:32→22:34)
--- NOTE | 2018-10-31 18:49 | CONS ---
DATE OF ADMISSION: 10/30/2018 DATE OF CONSULTATION: 10/31/2018 REASON FOR CONSULTATION: Non-ST elevation myocardial infarction. REQUESTING PHYSICIAN: Dr. Richard Courtney. HISTORY OF PRESENT ILLNESS: Mr. Maher is a 47-year-old male with the history of anoxic encephalopathy status post cardiac arrest after a suicide attempt in 2009 and subsequent tracheostomy and vent-dependent respiratory failure, dysphagia status post G-tube, seizure disorder, who was sent from a chronic care facility for altered mental state stating that he was more drowsy than previously noted. Upon arrival, temperature 105.2, blood pressure 88/60, pulse 156, respiratory rate 29. Setting 100% on FIO2 100%. The patient's labs are notable for white count 21.5, hemoglobin 11.8, platelet count 373. A sodium of 142, potassium 4.5, creatinine 1.1, BUN 45. Troponin positive 0.161. Lipase 1712, amylase 357. ABG revealing a pH of 7.49, a PaO2 of 63, a pCO2 of 24. INR 1.22. UA positive. The patient underwent a chest x-ray revealing no congestive heart failure, minimal patchy density at the base likely all due to atelectasis. The patient's electrocardiogram revealed sinus tachycardia versus true SVT at a rate of 156 with normal axis and intervals and nonspecific ST abnormalities. The patient was treated with a dose of Lovenox, potassium chloride, Keppra 1500 mg, Tylenol, and a dose of Zofran. The patient has now been admitted to floor for further extra treatment. Since admit to floor, he has been started on broad-spectrum antibiotics. The patient's troponins have been trended, going from 0.161 up to a 2.55. The patient remains tachycardic on monitor, consistent with sinus tachycardia at this time in the 120s. Blood pressure marginal in the 90s. The patient does not respond to questioning of any chest pain or shortness of breath. PAST MEDICAL HISTORY: As above in HPI. MEDICATIONS CURRENTLY IN HOSPITAL: 1. Colace. 2. Nystatin. 3. Cefepime. 4. Vitamin C. 5. Multivite. 6. Potassium chloride. 7. Vancomycin. 8. Protonix. 9. Keppra 1500 mg b.i.d. 10. IV fluid hydration D5 70 mL an hour. 11. Reglan p.r.n. 11. Ferrous sulfate 300 mg b.i.d. ALLERGIES: NO KNOWN DRUG ALLERGIES. SOCIAL HISTORY: No current use of tobacco, ETOH or illicit drug use. FAMILY HISTORY: No history of sudden cardiac or early CAD. REVIEW OF SYSTEMS: As above in HPI. CONSTITUTIONAL: No fevers, chills. PULMONARY: Chronic respiratory failure status post trach. GASTROINTESTINAL: Dysphagia status post G-tube. GENITOURINARY: No hematuria. MUSCULOSKELETAL: Degenerative joint disease. PSYCHIATRIC: No documented psych history. NEUROLOGIC: Anoxic encephalopathy. CARDIOVASCULAR: Non-ST elevation myocardial infarction, start trending cardiac enzymes. PHYSICAL EXAMINATION: VITAL SIGNS: Temperature of 98.4, blood pressure is 94/65, pulse 125, respiratory rate 32, 99% on FiO2 80%. GENERAL: The patient is encephalopathic, nonresponsive. NECK: Tracheostomy in place. CHEST: Upper airway transmitted rhonchorous sounds. HEART: Tachycardic, regular rhythm, normal S1, S2, I/ systolic murmur. ABDOMEN: Positive bowel sounds, soft, positive G-tube. EXTREMITIES: Posture contracted. LABORATORY DATA: Labs most recently from today, sodium 146, potassium 3.7, creatinine 0.7, BUN 34. WBC 2.55, hematocrit 21, hemoglobin 10.8, platelet 187. IMAGING STUDIES: Chest x-ray from the 25th revealing likely etiology is atelectasis. ECG: As above in HPI. No further electrocardiograms for my review at this time. IMPRESSION: 1. Non-ST elevation myocardial infarction with up trending cardiac enzymes likely demand infarct in the setting of significant tachycardia and fevers, sepsis. 2. Abnormal electrocardiogram with nonspecific ST-T abnormalities. 3. Tachycardia, ongoing, likely due to the patient's underlying sepsis. 4. Sepsis with the Gram-positive cocci group in clusters growing in blood and Gram-negative rods growing in urine. 5. Urinary tract infection. 6. Chronic respiratory failure, status post tracheostomy. 7. SafeSept G-tube. 8. Chronic anoxic encephalopathy. 9. Leukocytosis significantly improved in 1 day. 10. Anemia. 11. Hypernatremia. RECOMMENDATIONS: 1. At this time, we would maintain patient on telemetry monitoring and follow rhythm and rate control closely. 2. At this time, the patient's blood pressure likely preclude initiation of beta samantha. We will continue to treat patient's fevers aggressively and would continue broad-spectrum antibiotics for treatment of sepsis. Follow up all culture data sensitivities and speciation. 3. We will check a 2D echo for reassess of patient's ejection fraction, wall motion and major abnormalities. Last time revealing a preserved EF. 4. We will continue to trend the patient's cardiac enzymes, assess for structural heart damage. 5. Start patient on aspirin. The patient is status post dose of Lovenox today which I will continue him at this time and continue to trend the patient's cardiac enzymes, additionally continue to follow the patient's lipase consistent with pancreatitis with ongoing GI followup and follow the patient's hemoglobin closely. Thank you for allowing me to take part in the care of this patient. I will continue to follow along very closely with you. Further recommendations will be made as the patient progresses through his inpatient hospital clinical course. Dictated By: ELOINA CRANE/NTS Conf#: [id number] DID#: [id number] CC: RICHARD COURTNEY MD;*EndCC* MTDD
[2018-10-31] MEDS: NYSTATIN 15 GM OINT TOP SCH (22:27)
[2018-10-31] MEDS: METOPROLOL 25 MG TAB GTB SCH (22:28)
[2018-10-31] MEDS: DOCUSATE SODIUM 100 MG CAP PO SCH (22:31)
[2018-10-31] MEDS: ENOXAPARIN 80 MG/0.8 ML SYG SC SCH (22:44)
[2018-11-01] VITALS (22 sets, daily range): BP systolic 95–139; BP diastolic 62–69; PULSE 69–123; RESP 16–36
[2018-11-01] MEDS: DEXTROSE 5%-0.45% NACL 1,000 ML IV SCH ×2 (04:19→17:52)
[2018-11-01] MEDS: CEFEPIME 1GM/50 ML (PMX) 50 ML IVPB SCH ×3 (05:10→20:24)
[2018-11-01] MEDS: PANTOPRAZOLE (EC) 40 MG TAB PO SCH (05:12)
[2018-11-01] MEDS: VANCOMYCIN 1 GM 250 ML IVPB SCH (09:47)
[2018-11-01] MEDS: LEVETIRACETAM (100 MG/ML) 5ML CUP GTB SCH ×2 (09:47→20:24)
[2018-11-01] MEDS: MULTIVITAMINS 30 ML CUP GTB SCH (09:50)
[2018-11-01] MEDS: POTASSIUM CHLORIDE 20 MEQ POWDER FOR ORAL SOLN GTB SCH (09:51)
[2018-11-01] MEDS: FERROUS SULFATE 60 MG/ML 5ML CUP PO SCH ×2 (09:51→20:24)
[2018-11-01] MEDS: ASPIRIN 81 MG TAB PO SCH (09:52)
[2018-11-01] MEDS: METOPROLOL 25 MG TAB GTB SCH ×3 (09:52→20:55)
[2018-11-01] MEDS: ASCORBIC ACID 500 MG TAB GTB SCH (09:52)
[2018-11-01] MEDS: NYSTATIN 15 GM OINT TOP SCH ×2 (09:53→20:26)
[2018-11-01] MEDS: ACETAMINOPHEN 650MG/20.3ML CUP GTB PRN ×2 (09:59→20:25)
[2018-11-01] MEDS: ENOXAPARIN 80 MG/0.8 ML SYG SC SCH ×2 (10:08→20:30)
[2018-11-01] MEDS ORDERED: COLLAGENASE 5 GM (UD JAR) TOP ONE (12:00)
--- NOTE | 2018-11-01 12:04 | CONS ---
Assessment/Plan Assessment/Plan Hospital Course (Demo Recall) IMPRESSION: 1. Non-ST elevation myocardial infarction with up trending cardiac enzymes likely demand infarct in the setting of significant tachycardia and fevers, sepsis.-downtrending 2. Abnormal electrocardiogram with nonspecific ST-T abnormalities. 3. Tachycardia, ongoing, likely due to the patient's underlying sepsis. 4. Sepsis with the Gram-positive cocci group in clusters growing in blood and Gram-negative rods growing in urine. 5. Urinary tract infection. 6. Chronic respiratory failure, status post tracheostomy. 7. s/p G-tube. 8. Chronic anoxic encephalopathy. 9. Leukocytosis significantly improved in 1 day. 10. Anemia. 11. Hypernatremia. Recc: -Tele -Continue lovenox -Contineu asa -Contineu low dose BB -trend enzymes -will f/u echo Consultation Date/Type/Reason Admit Date/Time October 30, 2018 at 08:15 Initial Consult Date 10/31/18 Type of Consult Cardiology Reason for Consultation Nstemi Requesting Provider: RICHARD GIRARD MD Date/Time of Note DATE: 11/01/18 TIME: 12:02 Exam/Review of Systems Vital Signs Vitals Vital Signs Date Temp Pulse Resp B/P (MAP) Pulse Ox O2 O2 Flow FiO2 Time Delivery Rate 11/01/18 100.3 114 26 99/62 (74) 94 Trach 11:46 Collar 11/01/18 70 09:40 Intake and Output 10/31/18 10/31/18 11/01/18 1515:00 23:00 07:00 IntakeIntake Total 860 ml 50 ml BalanceBalance 860 ml 50 ml Exam Exam Review of Systems: CONSTITUTIONAL: No fevers, chills. PULMONARY: trached CARDIOVASCULAR: No chest pain/palpitations GASTROINTESTINAL: No nausea/vomiting. GENITOURINARY: No hematuria/dysuria. MUSCULOSKELETAL: No myagias/arthalgias. PSYCHIATRIC: The patient denies depression. NEUROLOGIC: encephalopathic Constitutional: other (encephalopathic) Psych: no complaints Head: normocephalic ENMT: mucosa pink and moist Neck: supple, jvd (9 cm water) Respiratory: diminished breath sounds (at bases/B) Cardiovascular: regular rate and rhythm Gastrointestinal: soft, non-tender Musculoskeletal: muscle weakness (generalized) Extremities: other (contracted) Neurological: unresponsive Labs Result Diagram: 11/01/18 0241 11/01/18 0241 Results 24hrs Laboratory Tests Test 10/31/18 18:39 11/01/18 01:02 11/01/18 02:41 Creatine Kinase 440 H 413 H Creatine Kinase Index 0.1 0.1 Creatinine Kinase MB (Mass) 0.41 < 0.22 Troponin I 1.190 *H 0.635 *H White Blood Count 7.5 Red Blood Count 4.65 L Hemoglobin 10.6 L Hematocrit 35.9 L Mean Corpuscular Volume 77.2 L Mean Corpuscular Hemoglobin 22.8 L Mean Corpuscular Hemoglobin Concent 29.5 L Red Cell Distribution Width 16.8 H Platelet Count 154 # Mean Platelet Volume Immature Granulocytes % 0.900 H Neutrophils % 85.3 H Lymphocytes % 8.9 L Monocytes % 4.8 Eosinophils % 0.0 Basophils % 0.1 Nucleated Red Blood Cells % 0.0 Immature Granulocytes # 0.070 H Neutrophils # 6.4 Lymphocytes # 0.7 L Monocytes # 0.4 Eosinophils # 0.0 Basophils # 0.0 Nucleated Red Blood Cells # 0.0 Sodium Level 147 H Potassium Level 3.8 Chloride Level 121 H Carbon Dioxide Level 18 L Anion Gap 8 Blood Urea Nitrogen 26 H Creatinine 0.64 Est Glomerular Filtrat Rate mL/min > 60 Glucose Level 139 Calcium Level 8.2 L Triglycerides Level 220 H Cholesterol Level 98 L LDL Cholesterol, Calculated 43 HDL Cholesterol 11 L Cholesterol/HDL Ratio 8.9 Medications Medications Current Medications Dextrose/Sodium Chloride 1,000 ml @ 70 mls/hr [id number] IV Last administered on 11/01/18at 04:19; Admin Dose 70 MLS/HR; Start 10/30/18 at 22:00 Acetaminophen (Tylenol Tab) 650 mg BID PRN GTB PAIN MANAGEMENT; Start 10/30/18 at 22:00 Acetaminophen (Tylenol Tab) 650 mg Q6 PRN GTB PAIN; Start 10/30/18 at 22:00 Albuterol (Proventil 0.083% (Neb)) 2.5 mg Q3H RESP THERAPY PRN NEB WHEEZING AND SOB; Start 10/30/18 at 22:00 Albuterol (Proventil 0.083% (Neb)) 2.5 mg Q6H RESP THERAPY PRN NEB WHEEZING AND SOB; Start 10/30/18 at 22:00 Ascorbic Acid (Vitamin C) 500 mg DAILY GTB Last administered on 11/01/18 09:52; Admin Dose 500 MG; Start 10/31/18 at 09:00 Docusate Sodium (Colace) 100 mg QHS PO Last administered on 10/31/18 22:31; Admin Dose 100 MG; Start 10/31/18 at 21:00 Metoclopramide HCl (Reglan) 10 mg Q6H PRN GTB NAUSEA AND/OR VOMITING; Start 10/30/18 at 22:00 Multivitamins (Multivitamin) 30 ml DAILY GTB Last administered on 11/01/18 09:50; Admin Dose 30 ML; Start 10/31/18 at 09:00 Pantoprazole (Protonix Tab) 40 mg DAILY@0600 PO Last administered on 11/01/18 05:12; Admin Dose 40 MG; Start 10/31/18 at 06:00 Ferrous Sulfate (Feosol Liquid Cup) 300 mg BID PO Last administered on 11/01/18 09:51; Admin Dose 300 MG; Start 10/30/18 at 22:00 Levetiracetam (Keppra Liquid) 1,500 mg BID GTB Last administered on 11/01/18 09:47; Admin Dose 1,500 MG; Start 10/30/18 at 22:30 Potassium Chloride (Potassium Chloride Pwd/Soln) 20 meq DAILY GTB Last adm inistered on 11/01/18 09:51; Admin Dose 20 MEQ; Start 10/31/18 at 09:00 Acetaminophen (Tylenol Liquid) 650 mg Q4H PRN GTB MILD PAIN(1-3)OR ELEVATED TEMP Last administered on 11/01/18 09:59; Admin Dose 650 MG; Start 10/31/18 at 00:00 Vancomycin HCl (Vanco Iv Per Pharmacy) VANCOMYCIN PER PHARMACY PER PROTOCOL XX ; Start 10/31/18 at 07:00 Vancomycin HCl 250 ml @ 125 mls/hr Q12H IVPB Last administered on 11/01/18 09:47; Admin Dose 125 MLS/HR; Start 10/31/18 at 08:00 Cefepime HCl 50 ml @ 100 mls/hr Q8 IVPB Last administered on 11/01/18 05:10; Admin Dose 100 MLS/HR; Start 10/31/18 at 16:00 Nystatin (Nystatin Oint) 1 applic BID TOP Last administered on 11/01/18at 09:53; Admin Dose 1 APPLIC; Start 10/31/18 at 21:00 Aspirin (Aspirin) 81 mg DAILY PO Last administered on 11/01/18 09:52; Admin Dose 81 MG; Start 11/01/18 at 09:00 Enoxaparin Sodium (Lovenox) 70 mg Q12 SC Last administered on 11/01/18at 10:08; Admin Dose 70 MG; Start 10/31/18 at 21:00 Metoprolol Tartrate (Lopressor) 12.5 mg BID GTB Last administered on 11/01/18 09:52; Admin Dose 12.5 MG; Start 10/31/18 at 21:00 Collagenase (Santyl) 1 applic ONCE ONCE TOP ; Start 11/01/18 at 12:00; Stop 11/01/18 at 12:01; Status UNV ELOINA MISHRA November 01, 2018 12:04
--- NOTE | 2018-11-01 12:30 | CONS ---
Assessment/Plan Assessment/Plan Hospital Course (Demo Recall) ID PROGRESS NOTE CURRENT ABX: Day #3=> Vanco IV + Cefepime 11/01/18 0241 11/01/18 0241 24h INTERVAL SUMMARY * Chronic vegetative - noncommunicative * Tmax 100.0, WBC down, (+) RLL ASP PNA developing on CXR * Right upper extremity erythema + edema ? Midline thrombus ? Contact dermatitis allergy to tape vs. cellulitis? IMAGING * 11/01/17 CXR: New patchy consolidation at the right lung base concerning for pneumonia/aspiration pneumonia. * 10/31/18 RENAL US 1. Nonobstructing right intrarenal calculi ranging between 7-8 mm in size. No associated hydronephrosis. 2. Normal left kidney and collecting system . Note on prior CT scans the patient does have left intrarenal calculi are as well which are not seen on the current study. MICRO 10/31/18 (-)MRSA 10/30/18 (-)INFLUENZA A/B 10/30/18 BCx (-) 10/30/18 URINE CX (+)GNR URINE CULTURE Final Organism 1 PROTEUS MIRABILIS COLONY COUNT >100,000 CFU/ml P. MIRAB M.I.C. RX --------- --- AMPICILLIN >=32 R CEFOTAXIME S CIPROFLOXACIN >=4 R GENTAMICIN <=1 S LEVOFLOXACIN >=8 R NITROFURANTOIN 128 R TOBRAMYCIN <=1 S TRIMETHOPRIM/SULFAMETHOXAZOLE >=320 R Constitutional: well developed, non-verbal, obese, other (Persitent vegetative state - unresponsive ) Psych: other (Calm - non-responsive ) Head: normocephalic, atraumatic Eyes: nl conjunctiva, nl sclera ENMT: nl external ears & nose, nl lips & teeth (Lower lip with deformity at bilateral corners ), other (Trach secure to Vent) Neck: supple Respiratory: crackles/rales, diminished breath sounds, other (Ventilator dependent ); No normal air movement, No wheezing Cardiovascular: regular rate and rhythm, other (Sinus tachycradia @ 120 BPM) Gastrointestinal: soft, other (PEG ) Genitourinary - Male: nl scrotum (Scrotal erythema - excoriation - moisture associated ), other (FC); No nl penis (Penile head erythema = excoriation vs balantitis ? ), No discharge Musculoskeletal: muscle weakness, other (Flexion contraction BUEXT w/bilateral ); No nl extremities to inspection, No nl gait and stance, No muscle tone, No range of motion Extremities: other (Bilateral feet toe deformities and pressure ulcers see wound photos ) * Right upper extremity erythema + edema ? Midline thrombus ? Contact dermatitis allergy to tape vs. cellulitis? Neurological: unresponsive; No POWDER ROOM ATTENDANT II-XII intact, No nl mental status, No nl speech, No nl strength Skin: diaphoresis Lymph: nl lymph nodes ID ASSESSMENT 47 yo M w/chronic vegetative state admit with: 1. Acute sepsis w/transient shock as evidenced by the following: * Fevers > 105.+ on arrival to ED == IMPROVING * SVT @ 156 BPM == Currently in Sinus rhythm HR 120 * Hypotension requiring pressors = RESOLVED * WBC 21.5 w/left shift = IMPROVING * Lactic acid 1.7 * (+)UA w/pyuria, many bacteria, moderate CA+ crystals * (+)troponin leak 0.16 * 10/30/18 BCX (+) 2/2 Bottles GPC * 10/30/18 Urine Cx (+) GNR Preliminary 2. GPC Bacteremia 2/2 bottles from ED -- Suspect PICC line infection 3. GNR complicated UTI /pyelonephritis * 10/30/18 URINE CX (+)GNR URINE CULTURE Final Organism 1 PROTEUS MIRABILIS COLONY COUNT >100,000 CFU/ml 4. CA+ Crystals found in UA=> (+) nephrolithiasis = non-obstructive * 10/31/18 RENAL US 1. Nonobstructing right intrarenal calculi ranging between 7-8 mm in size. No associated hydronephrosis. 2. Normal left kidney and collecting system . Note on prior CT scans the patient does have left intrarenal calculi are as well which are not seen on the current study. 5. Right upper extremity erythema + edema ? Midline thrombus ? Contact dermatitis allergy to tape vs. cellulitis? 6. Chronic VDRF -> s/p Trach @ [facility] NOVEMBER 2009 * 10/30/18 CXR: IMPRESSION: 1. No congestive heart failure. 2. Minimal patchy density at the bases likely all due to atelectasis. No definite infiltrates however recommend clinical correlation 7. Risk factors for ASP PNA = GERD, Hiatal Hernia, hx of Esophagitis (reflux), peg 8. Dysphagia -> s/p PEG @ [facility] November 2009 9. 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 Seizure disorder on Keppra = Avoid Carbapenems if possible 11. Bedbound state w/BUEXT flexion contractures 12. Penile, scrotal, liss-anal moisture associated dermatitis w/erythema 13. Bilateral feet decubs = minor 14. Elevated Lipase of uncertain significance (-)MRSA Nares INVASIVES: Trach, Peg, FC, LUEXT MIDLINE ABX ALLERGIES: KNDA CURRENT ABX: 3=> Vanco IV + Cefepime ID RECOMMENDATIONS 1. Continue Cefepime 2. Continue Vanco IV 3. Repeat BC x via PICC Line -- Per RN has MIDLINE placed in ED unclear if Present on admission? 4. ASP PRECAUTIONS 5. Local wound / liss-anal skin care 6. Consider LUEXT Venous doppler r/o thrombus -- however doubt will result in change of management if found Consultation Date/Type/Reason Admit Date/Time October 30, 2018 at 08:15 Initial Consult Date Type of Consult INFECTIOUS DISEASES * Thank you for the privilege of ID consultation to "Charisma Matias"->Patient is known to Dr. Matias from multiple prior admissions to [facility]. Requesting Provider: RICHARD GIRARD MD Date/Time of Note DATE: 11/01/18 TIME: 12:16 Exam/Review of Systems Exam Vitals Vital Signs Date Temp Pulse Resp B/P (MAP) Pulse Ox O2 O2 Flow FiO2 Time Delivery Rate 11/01/18 100.3 114 26 99/62 (74) 94 Trach 11:46 Collar 11/01/18 70 09:40 Intake and Output 10/31/18 10/31/18 11/01/18 1515:00 23:00 07:00 IntakeIntake Total 860 ml 50 ml BalanceBalance 860 ml 50 ml Results Result Diagram: 11/01/18 0241 11/01/18 0241 Results 24hrs Laboratory Tests Test 10/31/18 18:39 11/01/18 01:02 11/01/18 02:41 Creatine Kinase 440 H 413 H Creatine Kinase Index 0.1 0.1 Creatinine Kinase MB (Mass) 0.41 < 0.22 Troponin I 1.190 *H 0.635 *H White Blood Count 7.5 Red Blood Count 4.65 L Hemoglobin 10.6 L Hematocrit 35.9 L Mean Corpuscular Volume 77.2 L Mean Corpuscular Hemoglobin 22.8 L Mean Corpuscular Hemoglobin Concent 29.5 L Red Cell Distribution Width 16.8 H Platelet Count 154 # Mean Platelet Volume Immature Granulocytes % 0.900 H Neutrophils % 85.3 H Lymphocytes % 8.9 L Monocytes % 4.8 Eosinophils % 0.0 Basophils % 0.1 Nucleated Red Blood Cells % 0.0 Immature Granulocytes # 0.070 H Neutrophils # 6.4 Lymphocytes # 0.7 L Monocytes # 0.4 Eosinophils # 0.0 Basophils # 0.0 Nucleated Red Blood Cells # 0.0 Sodium Level 147 H Potassium Level 3.8 Chloride Level 121 H Carbon Dioxide Level 18 L Anion Gap 8 Blood Urea Nitrogen 26 H Creatinine 0.64 Est Glomerular Filtrat Rate mL/min > 60 Glucose Level 139 Calcium Level 8.2 L Triglycerides Level 220 H Cholesterol Level 98 L LDL Cholesterol, Calculated 43 HDL Cholesterol 11 L Cholesterol/HDL Ratio 8.9 Medications Medication Current Medications Dextrose/Sodium Chloride 1,000 ml @ 70 mls/hr [id number] IV Last administered on 11/01/18at 04:19; Admin Dose 70 MLS/HR; Start 10/30/18 at 22:00 Acetaminophen (Tylenol Tab) 650 mg BID PRN GTB PAIN MANAGEMENT; Start 10/30/18 at 22:00 Acetaminophen (Tylenol Tab) 650 mg Q6 PRN GTB PAIN; Start 10/30/18 at 22:00 Albuterol (Proventil 0.083% (Neb)) 2.5 mg Q3H RESP THERAPY PRN NEB WHEEZING AND SOB; Start 10/30/18 at 22:00 Albuterol (Proventil 0.083% (Neb)) 2.5 mg Q6H RESP THERAPY PRN NEB WHEEZING AND SOB; Start 10/30/18 at 22:00 Ascorbic Acid (Vitamin C) 500 mg DAILY GTB Last administered on 11/01/18 09:52; Admin Dose 500 MG; Start 10/31/18 at 09:00 Docusate Sodium (Colace) 100 mg QHS PO Last administered on 10/31/18 22:31; Admin Dose 100 MG; Start 10/31/18 at 21:00 Metoclopramide HCl (Reglan) 10 mg Q6H PRN GTB NAUSEA AND/OR VOMITING; Start 10/30/18 at 22:00 Multivitamins (Multivitamin) 30 ml DAILY GTB Last administered on 11/01/18 09:50; Admin Dose 30 ML; Start 10/31/18 at 09:00 Pantoprazole (Protonix Tab) 40 mg DAILY@0600 PO Last administered on 11/01/18 05:12; Admin Dose 40 MG; Start 10/31/18 at 06:00 Ferrous Sulfate (Feosol Liquid Cup) 300 mg BID PO Last administered on 09:51; Admin Dose 300 MG; Start 10/30/18 at 22:00 Levetiracetam (Keppra Liquid) 1,500 mg BID GTB Last administered on 11/01/18 09:47; Admin Dose 1,500 MG; Start 10/30/18 at 22:30 Potassium Chloride (Potassium Chloride Pwd/Soln) 20 meq DAILY GTB Last administered on 11/01/18 09:51; Admin Dose 20 MEQ; Start 10/31/18 at 09:00 Acetaminophen (Tylenol Liquid) 650 mg Q4H PRN GTB MILD PAIN(1-3)OR ELEVATED TEMP Last administered on 11/01/18 09:59; Admin Dose 650 MG; Start 10/31/18 at 00:00 Vancomycin HCl (Vanco Iv Per Pharmacy) VANCOMYCIN PER PHARMACY PER PROTOCOL XX ; Start 10/31/18 at 07:00 Vancomycin HCl 250 ml @ 125 mls/hr Q12H IVPB Last administered on 11/01/18 09:47; Admin Dose 125 MLS/HR; Start 10/31/18 at 08:00 Cefepime HCl 50 ml @ 100 mls/hr Q8 IVPB Last administered on 11/01/18 05:10; Admin Dose 100 MLS/HR; Start 10/31/18 at 16:00 Nystatin (Nystatin Oint) 1 applic BID TOP Last administered on 11/01/18 09:53; Admin Dose 1 APPLIC; Start 10/31/18 at 21:00 Aspirin (Aspirin) 81 mg DAILY PO Last administered on 11/01/18 09:52; Admin Dose 81 MG; Start 11/01/18 at 09:00 Enoxaparin Sodium (Lovenox) 70 mg Q12 SC Last administered on 11/01/18 10:08; Admin Dose 70 MG; Start 10/31/18 at 21:00 Metoprolol Tartrate (Lopressor) 12.5 mg BID GTB Last administered on 11/01/18 09:52; Admin Dose 12.5 MG; Start 10/31/18 at 21:00 GUNJAN CORRALES NP November 01, 2018 12:30
--- NOTE | 2018-11-01 12:51 | CONS ---
Assessment/Plan Assessment/Plan Assessment/Plan (Daily) Assessment and recommendations; 1. Patient with history of chronic severe encephalopathy and VDR F admitted for hypoxemic respiratory failure. 2. Scant right lower lobe pneumonia not explaining degree of hypoxemia. Raising the possibility of pulmonary embolism. 3. Stable seizure disorder. Continue current supportive care. Continue full dose Lovenox. Patient awaiting CT angiogram of chest. Further recommendations once CT of the chest is obtained. Consultation Date/Type/Reason Admit Date/Time October 30, 2018 at 08:15 Initial Consult Date Type of Consult Pulmonary Patient is a 47-year-old male who has been transferred from [facility] because of fever. Patient had been diagnosed a UTI with possibly pyonephritis. Currently on appropriate antimicrobial regimen. Because of advanced encephalopathy, patient remains totally noncommunicative. However, patient did not appear to be in any distress. Past medical history; 1. Advanced encephalopathy 2. VDRF 3. G-tube placement. 4. Seizure disorder. Medications; reviewed. Allergies; none. Social history; not available. Family history; not available. Occupational history; patient is on disability. Review of system; unable to be obtained. General exam; young male, on ventilator via tracheostomy, non communicative and unresponsive. Currently no distress. Requesting Provider: RICHARD GIRARD MD Date/Time of Note DATE: 11/01/18 TIME: 12:49 24 HR Interval Summary Free Text/Dictation Patient's condition is tenuous at best. Still on fairly high FiO2. Patient however has remained hemodynamically stable. General exam; middle-aged male, on ventilator via tracheostomy, non communicative. Currently no distress. Exam/Review of Systems Exam Vitals Vital Signs Date Temp Pulse Resp B/P (MAP) Pulse Ox O2 O2 Flow FiO2 Time Delivery Rate 11/01/18 100.3 114 26 99/62 (74) 94 Trach 11:46 Collar 11/01/18 70 09:40 Intake and Output 10/31/18 10/31/18 11/01/18 1515:00 23:00 07:00 IntakeIntake Total 860 ml 50 ml BalanceBalance 860 ml 50 ml Exam HEENT exam; supple neck, no JVD. No lymphadenopathy. Midline trachea. No thyromegaly. Tracheostomy in place. No neck masses. Chest exam; diminished but clear breath sounds. S1-S2 audible, no murmurs. Regular rhythm. Abdomen exam; soft, no organomegaly. G-tube in place. Bowel sounds audible. Extremity exam; no peripheral edema clubbing. Patient has a flexion contractures. MOLDER HAND exam; patient remains noncommunicative. Results Result Diagram: 11/01/18 0241 11/01/18 0241 Results 24hrs Laboratory Tests Test 10/31/18 18:39 11/01/18 01:02 11/01/18 02:41 Creatine Kinase 440 H 413 H Creatine Kinase Index 0.1 0.1 Creatinine Kinase MB (Mass) 0.41 < 0.22 Troponin I 1.190 *H 0.635 *H White Blood Count 7.5 Red Blood Count 4.65 L Hemoglobin 10.6 L Hematocrit 35.9 L Mean Corpuscular Volume 77.2 L Mean Corpuscular Hemoglobin 22.8 L Mean Corpuscular Hemoglobin Concent 29.5 L Red Cell Distribution Width 16.8 H Platelet Count 154 # Mean Platelet Volume Immature Granulocytes % 0.900 H Neutrophils % 85.3 H Lymphocytes % 8.9 L Monocytes % 4.8 Eosinophils % 0.0 Basophils % 0.1 Nucleated Red Blood Cells % 0.0 Immature Granulocytes # 0.070 H Neutrophils # 6.4 Lymphocytes # 0.7 L Monocytes # 0.4 Eosinophils # 0.0 Basophils # 0.0 Nucleated Red Blood Cells # 0.0 Sodium Level 147 H Potassium Level 3.8 Chloride Level 121 H Carbon Dioxide Level 18 L Anion Gap 8 Blood Urea Nitrogen 26 H Creatinine 0.64 Est Glomerular Filtrat Rate mL/min > 60 Glucose Level 139 Calcium Level 8.2 L Triglycerides Level 220 H Cholesterol Level 98 L LDL Cholesterol, Calculated 43 HDL Cholesterol 11 L Cholesterol/HDL Ratio 8.9 Medications Medication Current Medications Dextrose/Sodium Chloride 1,000 ml @ 70 mls/hr [id number] IV Last administered on 11/01/18at 04:19; Admin Dose 70 MLS/HR; Start 10/30/18 at 22:00 Acetaminophen (Tylenol Tab) 650 mg BID PRN GTB PAIN MANAGEMENT; Start 10/30/18 at 22:00 Acetaminophen (Tylenol Tab) 650 mg Q6 PRN GTB PAIN; Start 10/30/18 at 22:00 Albuterol (Proventil 0.083% (Neb)) 2.5 mg Q3H RESP THERAPY PRN NEB WHEEZING AND SOB; Start 10/30/18 at 22:00 Albuterol (Proventil 0.083% (Neb)) 2.5 mg Q6H RESP THERAPY PRN NEB WHEEZING AND SOB; Start 10/30/18 at 22:00 Ascorbic Acid (Vitamin C) 500 mg DAILY GTB Last administered on 11/01/18 09:52; Admin Dose 500 MG; Start 10/31/18 at 09:00 Docusate Sodium (Colace) 100 mg QHS PO Last administered on 10/31/18 22:31; Admin Dose 100 MG; Start 10/31/18 at 21:00 Metoclopramide HCl (Reglan) 10 mg Q6H PRN GTB NAUSEA AND/OR VOMITING; Start 10/30/18 at 22:00 Multivitamins (Multivitamin) 30 ml DAILY GTB Last administered on 11/01/18 09:50; Admin Dose 30 ML; Start 10/31/18 at 09:00 Pantoprazole (Protonix Tab) 40 mg DAILY@0600 PO Last administered on 11/01/18 05:12; Admin Dose 40 MG; Start 10/31/18 at 06:00 Ferrous Sulfate (Feosol Liquid Cup) 300 mg BID PO Last administered on 11/01/18 09:51; Admin Dose 300 MG; Start 10/30/18 at 22:00 Levetiracetam (Keppra Liquid) 1,500 mg BID GTB Last administered on 11/01/18 09:47; Admin Dose 1,500 MG; Start 10/30/18 at 22:30 Potassium Chloride (Potassium Chloride Pwd/Soln) 20 meq DAILY GTB Last administered on 11/01/18 09:51; Admin Dose 20 MEQ; Start 10/31/18 at 09:00 Acetaminophen (Tylenol Liquid) 650 mg Q4H PRN GTB MILD PAIN(1-3)OR ELEVATED TEMP Last administered on 11/01/18 09:59; Admin Dose 650 MG; Start 10/31/18 at 00:00 Vancomycin HCl (Vanco Iv Per Pharmacy) VANCOMYCIN PER PHARMACY PER PROTOCOL XX ; Start 10/31/18 at 07:00 Vancomycin HCl 250 ml @ 125 mls/hr Q12H IVPB Last administered on 11/01/18 09:47; Admin Dose 125 MLS/HR; Start 10/31/18 at 08:00 Cefepime HCl 50 ml @ 100 mls/hr Q8 IVPB Last administered on 11/01/18 05:10; Admin Dose 100 MLS/HR; Start 10/31/18 at 16:00 Nystatin (Nystatin Oint) 1 applic BID TOP Last administered on 11/01/18 09:53; Admin Dose 1 APPLIC; Start 10/31/18 at 21:00 Aspirin (Aspirin) 81 mg DAILY PO Last administered on 11/01/18 09:52; Admin Dose 81 MG; Start 11/01/18 at 09:00 Enoxaparin Sodium (Lovenox) 70 mg Q12 SC Last administered on 11/01/18 10:08; Admin Dose 70 MG; Start 10/31/18 at 21:00 Metoprolol Tartrate (Lopressor) 12.5 mg BID GTB Last administered on 11/01/18 09:52; Admin Dose 12.5 MG; Start 10/31/18 at 21:00 MI JEFFERS November 01, 2018 12:50
[2018-11-01] MEDS ORDERED: SOD CHLORIDE 0.9% 100 ML ONE (14:07)
[2018-11-01] MEDS ORDERED: IOHEXOL 100 ML ONE (14:08)
--- NOTE | 2018-11-01 14:42 | PN ---
Date/Time of Note Date/Time of Note DATE: 11/01/18 TIME: 14:33 Assessment/Plan VTE Prophylaxis Risk score (from [facility] [place]0 risk: 5 SCD applied (from Ns): Yes Pharmacological prophylaxis: LMWH Lines/Catheters IV Catheter Type (from [facility]): Mid Line Central line still needed: Yes Urinary Cath still in place: No Assessment/Plan Hospital Course Patient remains febrile, tachycardic, continued on IV fluids, n.p.o., pending MRCP. Assessment/Plan -Sepsis with gram-positive cocci bacteremia MDR Proteus UTI. Continue antibiotics per ID. Dr. Matias is following in infection disease consultation. -Non-ST elevation myocardial infarction, continue aspirin, Lovenox, beta- samantha. Dr. Flor is following in cardiology consultation. -Pancreatitis, keep n.p.o. continue IV fluids, pending MRCP. Dr. Walton is following in gastroenterology consultation. -Ventilator dependent respiratory failure with tracheostomy. -Anoxic encephalopathy status post cardiac arrest in 2009 -Ventilator dependent respiratory failure -Dysphagia with PEG -Seizure disorder, continue Keppra. -Schizophrenia -Multiple wounds, continue current wound care, offloading. Further recommendations based on clinical course. Plan of care discussed with Dr. Courtney. Result Diagram: 11/01/18 0241 11/01/18 0241 Results 24hrs Laboratory Tests Test 10/31/18 18:39 11/01/18 01:02 11/01/18 02:41 Creatine Kinase 440 H 413 H Creatine Kinase Index 0.1 0.1 Creatinine Kinase MB (Mass) 0.41 < 0.22 Troponin I 1.190 *H 0.635 *H White Blood Count 7.5 Red Blood Count 4.65 L Hemoglobin 10.6 L Hematocrit 35.9 L Mean Corpuscular Volume 77.2 L Mean Corpuscular Hemoglobin 22.8 L Mean Corpuscular Hemoglobin Concent 29.5 L Red Cell Distribution Width 16.8 H Platelet Count 154 # Mean Platelet Volume Immature Granulocytes % 0.900 H Neutrophils % 85.3 H Lymphocytes % 8.9 L Monocytes % 4.8 Eosinophils % 0.0 Basophils % 0.1 Nucleated Red Blood Cells % 0.0 Immature Granulocytes # 0.070 H Neutrophils # 6.4 Lymphocytes # 0.7 L Monocytes # 0.4 Eosinophils # 0.0 Basophils # 0.0 Nucleated Red Blood Cells # 0.0 Sodium Level 147 H Potassium Level 3.8 Chloride Level 121 H Carbon Dioxide Level 18 L Anion Gap 8 Blood Urea Nitrogen 26 H Creatinine 0.64 Est Glomerular Filtrat Rate mL/min > 60 Glucose Level 139 Calcium Level 8.2 L Triglycerides Level 220 H Cholesterol Level 98 L LDL Cholesterol, Calculated 43 HDL Cholesterol 11 L Cholesterol/HDL Ratio 8.9 Exam/Review of Systems Exam Vitals Vital Signs Date Temp Pulse Resp B/P (MAP) Pulse Ox O2 O2 Flow FiO2 Time Delivery Rate 11/01/18 120 12:51 11/01/18 100.3 26 99/62 (74) 94 Trach 11:46 Collar 11/01/18 70 11:35 Intake and Output 10/31/18 10/31/18 11/01/18 1515:00 23:00 07:00 IntakeIntake Total 860 ml 50 ml BalanceBalance 860 ml 50 ml Constitutional: frail Head: normocephalic Neck: supple, other (Tracheostomy) Respiratory: diminished breath sounds Cardiovascular: regular rate and rhythm, other Gastrointestinal: soft, tender Musculoskeletal: other Extremities: other (Contracted extremities) Neurological: other (Noncommunicative) Skin: other (Multiple wounds) Results Results 24hrs Laboratory Tests Test 10/31/18 18:39 11/01/18 01:02 11/01/18 02:41 Creatine Kinase 440 H 413 H Creatine Kinase Index 0.1 0.1 Creatinine Kinase MB (Mass) 0.41 < 0.22 Troponin I 1.190 *H 0.635 *H White Blood Count 7.5 Red Blood Count 4.65 L Hemoglobin 10.6 L Hematocrit 35.9 L Mean Corpuscular Volume 77.2 L Mean Corpuscular Hemoglobin 22.8 L Mean Corpuscular Hemoglobin Concent 29.5 L Red Cell Distribution Width 16.8 H Platelet Count 154 # Mean Platelet Volume Immature Granulocytes % 0.900 H Neutrophils % 85.3 H Lymphocytes % 8.9 L Monocytes % 4.8 Eosinophils % 0.0 Basophils % 0.1 Nucleated Red Blood Cells % 0.0 Immature Granulocytes # 0.070 H Neutrophils # 6.4 Lymphocytes # 0.7 L Monocytes # 0.4 Eosinophils # 0.0 Basophils # 0.0 Nucleated Red Blood Cells # 0.0 Sodium Level 147 H Potassium Level 3.8 Chloride Level 121 H Carbon Dioxide Level 18 L Anion Gap 8 Blood Urea Nitrogen 26 H Creatinine 0.64 Est Glomerular Filtrat Rate mL/min > 60 Glucose Level 139 Calcium Level 8.2 L Triglycerides Level 220 H Cholesterol Level 98 L LDL Cholesterol, Calculated 43 HDL Cholesterol 11 L Cholesterol/HDL Ratio 8.9 Medications Medication Current Medications Dextrose/Sodium Chloride 1,000 ml @ 70 mls/hr [id number] IV Last administered on 11/01/18at 04:19; Admin Dose 70 MLS/HR; Start 10/30/18 at 22:00 Acetaminophen (Tylenol Tab) 650 mg BID PRN GTB PAIN MANAGEMENT; Start 10/30/18 at 22:00 Acetaminophen (Tylenol Tab) 650 mg Q6 PRN GTB PAIN; Start 10/30/18 at 22:00 Albuterol (Proventil 0.083% (Neb)) 2.5 mg Q3H RESP THERAPY PRN NEB WHEEZING AND SOB; Start 10/30/18 at 22:00 Albuterol (Proventil 0.083% (Neb)) 2.5 mg Q6H RESP THERAPY PRN NEB WHEEZING AND SOB; Start 10/30/18 at 22:00 Ascorbic Acid (Vitamin C) 500 mg DAILY GTB Last administered on 11/01/18at 09:5 2; Admin Dose 500 MG; Start 10/31/18 at 09:00 Docusate Sodium (Colace) 100 mg QHS PO Last administered on 10/31/18at 22:31; Admin Dose 100 MG; Start 10/31/18 at 21:00 Metoclopramide HCl (Reglan) 10 mg Q6H PRN GTB NAUSEA AND/OR VOMITING; Start 10/30/18 at 22:00 Multivitamins (Multivitamin) 30 ml DAILY GTB Last administered on 11/01/18at 09:50; Admin Dose 30 ML; Start 10/31/18 at 09:00 Pantoprazole (Protonix Tab) 40 mg DAILY@0600 PO Last administered on 11/01/18at 05:12; Admin Dose 40 MG; Start 10/31/18 at 06:00 Ferrous Sulfate (Feosol Liquid Cup) 300 mg BID PO Last administered on 11/01/18at 09:51; Admin Dose 300 MG; Start 10/30/18 at 22:00 Levetiracetam (Keppra Liquid) 1,500 mg BID GTB Last administered on 11/01/18 09:47; Admin Dose 1,500 MG; Start 10/30/18 at 22:30 Potassium Chloride (Potassium Chloride Pwd/Soln) 20 meq DAILY GTB Last administered on 11/01/18 09:51; Admin Dose 20 MEQ; Start 10/31/18 at 09:00 Acetaminophen (Tylenol Liquid) 650 mg Q4H PRN GTB MILD PAIN(1-3)OR ELEVATED TEMP Last administered on 11/01/18 09:59; Admin Dose 650 MG; Start 10/31/18 at 00:00 Vancomycin HCl (Vanco Iv Per Pharmacy) VANCOMYCIN PER PHARMACY PER PROTOCOL XX ; Start 10/31/18 at 07:00 Vancomycin HCl 250 ml @ 125 mls/hr Q12H IVPB Last administered on 11/01/18 09:47; Admin Dose 125 MLS/HR; Start 10/31/18 at 08:00 Cefepime HCl 50 ml @ 100 mls/hr Q8 IVPB Last administered on 11/01/18 05:10; Admin Dose 100 MLS/HR; Start 10/31/18 at 16:00 Nystatin (Nystatin Oint) 1 applic BID TOP Last administered on 11/01/18 09:53; Admin Dose 1 APPLIC; Start 10/31/18 at 21:00 Aspirin (Aspirin) 81 mg DAILY PO Last administered on 11/01/18 09:52; Admin Dose 81 MG; Start 11/01/18 at 09:00 Enoxaparin Sodium (Lovenox) 70 mg Q12 SC Last administered on 11/01/18 10:08; Admin Dose 70 MG; Start 10/31/18 at 21:00 Metoprolol Tartrate (Lopressor) 12.5 mg BID GTB Last administered on 11/01/18 09:52; Admin Dose 12.5 MG; Start 10/31/18 at 21:00 JH WISDOM November 01, 2018 14:42
--- NOTE | 2018-11-01 16:16 | CONS ---
DATE OF ADMISSION: 10/30/2018 DATE OF CONSULTATION: 11/01/2018 HISTORY OF PRESENT ILLNESS: The patient is admitted to the hospital with history of abdominal pain a nd was found to pancreatitis. The patient is nonverbal. He is status post tracheostomy. He has got a G-tube. He has history of anoxic encephalopathy. PHYSICAL EXAMINATION: VITAL SIGNS: Show that temperature is 100.3, pulse is 114, blood pressure is 99/62. CARDIOVASCULAR: Normal heart sounds. RESPIRATORY: Normal breath sounds. ABDOMEN: Showed soft abdomen with no palpable masses. He has got a G-tube in place. LABORATORY WORKUP: The WBC count has dropped to 7500 from 21,500. Yesterday, the lipase was 854. Today's amylase and lipase pending. CLINICAL IMPRESSION: Gallstone pancreatitis, rule out choledocholithiasis, rule out autoimmune pancr eatitis. PLAN: At this time, wait for the results of the CAT scan. 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 Will wait for the results of the CAT scan. Dictated By: LUCIE HUNTER MD NC/NTS Conf#: [id number] DID#: [id number] CC: RICHARD GIRARD MD;*EndCC*
[2018-11-01] MEDS: DOCUSATE SODIUM 100 MG CAP PO SCH (20:25)
[2018-11-01] MEDS: traMADol 50 MG TAB PO PRN (20:55)
[2018-11-01] MEDS ORDERED: METOPROLOL 5 MG INJ IV SCH (21:00)
[2018-11-01] MEDS ORDERED: METOPROLOL 5 MG INJ IV PRN (21:00)
[2018-11-02] VITALS (26 sets, daily range): BP systolic 93–121; BP diastolic 57–67; PULSE 94–122; RESP 16–38
[2018-11-02] MEDS: VANCOMYCIN 750 MG (PMX) 250 ML IVPB SCH ×2 (00:43→12:23)
[2018-11-02] MEDS: ACETAMINOPHEN 650MG/20.3ML CUP GTB PRN ×3 (00:46→20:08)
[2018-11-02] MEDS: traMADol 50 MG TAB PO PRN ×4 (00:46→20:11)
[2018-11-02] MEDS: DEXTROSE 5%-0.45% NACL 1,000 ML IV SCH ×2 (01:00→15:23)
[2018-11-02] MEDS: CEFEPIME 1GM/50 ML (PMX) 50 ML IVPB SCH ×3 (05:42→20:10)
[2018-11-02] MEDS: PANTOPRAZOLE (EC) 40 MG TAB PO SCH (05:42)
--- NOTE | 2018-11-02 08:28 | CONS ---
Consult Date/Type/Reason Admit Date/Time October 30, 2018 at 08:15 Initial Consult Date Requesting Provider: RICHARD GIRARD MD Date/Time of Note DATE: 11/02/18 TIME: 08:26 Subjective NO acute events - HR controlled - no obvious CP now - will monitor clinically. Per nurse: NO F/C/N/V/D Objective Vitals Vital Signs Date Temp Pulse Resp B/P (MAP) Pulse Ox O2 O2 Flow FiO2 Time Delivery Rate 11/02/18 98.7 95 20 104/64 100 Trach 08:04 (77) Collar 11/02/18 60 05:49 Intake and Output 11/01/18 11/01/18 11/02/18 1515:00 23:00 07:00 IntakeIntake Total 975 ml 1250 ml BalanceBalance 975 ml 1250 ml Exam General: WN/WD/NAD, AOx 0 HEENT: Unicetric/atraumatic/EOMI (does not follow commands) NECK: trach Lymph: no lymphadenopathy HEART: regular with no S3, II/ systolic murmur at apex LUNGS: Coarse sounds ABD: soft, NT, ND, +BS - pEG : Intact Neuro: non focal SKIN: chronic changes EXT: trace edema Results/Medications Result Diagram: 11/02/18 0535 11/02/18 0535 Results 24 hrs Laboratory Tests Test 11/01/18 19:06 11/02/18 05:35 Vancomycin Level Trough 21.9 *H White Blood Count 5.3 # Red Blood Count 4.54 L Hemoglobin 10.3 L Hematocrit 35.3 L Mean Corpuscular Volume 77.8 L Mean Corpuscular Hemoglobin 22.7 L Mean Corpuscular Hemoglobin Concent 29.2 L Red Cell Distribution Width 17.1 H Platelet Count 138 L Mean Platelet Volume Immature Granulocytes % 0.800 H Neutrophils % Segmented Neutrophils % (Manual) 64 Band Neutrophils % (Manual) 18 H Lymphocytes % Lymphocytes % (Manual) 14 L Monocytes % Monocytes % (Manual) 3 Eosinophils % Basophils % Basophils % (Manual) 1 Nucleated Red Blood Cells % 0.0 Immature Granulocytes # 0.040 H Neutrophils # Neutrophils # (Manual) 3.4 Band Neutrophils # 0.9 H Lymphocytes (Manual) 0.7 L Lymphocytes # Monocytes # Monocytes # (Manual) 0.1 L Eosinophils # Basophils # Basophils # (Manual) 0.0 Nucleated Red Blood Cells # Platelet Estimate DECREASED Hypochromasia 1+ Poikilocytosis 1+ Anisocytosis 2+ Microcytosis 2+ Sodium Level 151 H Potassium Level 3.1 L Chloride Level 123 H Carbon Dioxide Level 21 Anion Gap 7 Blood Urea Nitrogen 25 H Creatinine 0.65 Est Glomerular Filtrat Rate mL/min > 60 Glucose Level 122 Calcium Level 8.2 L Total Bilirubin 0.6 Direct Bilirubin 0.00 Indirect Bilirubin 0.6 Aspartate Amino Transf (AST/SGOT) 70 H Alanine Aminotransferase (ALT/SGPT) 43 Alkaline Phosphatase 38 L Total Protein 6.0 L Albumin 2.7 L Globulin 3.30 H Albumin/Globulin Ratio 0.81 Lipase 346 H Home Meds Reported Medications Ascorbic Acid* (Vitamin C*) 500 Mg Capsule.sa, 500 MG GTB DAILY, CAP 10/30/18 Cran/Vitc/Mannose/Inulin/Brom (Uti-Stat Liquid) 3,875 Mg/30 Ml Liquid, 3875 MG GTB BID 10/30/18 Acetaminophen* (Acetaminophen*) 650 Mg Tablet, 650 MG GTB TRACH CHANGE PRN for PAIN, #30 TAB 10/30/18 Acetaminophen* (Acetaminophen*) 325 Mg Tablet, 650 MG GTB BID PRN for PAIN MANAGEMENT, #30 TAB 10/30/18 Metoclopramide Hcl* (Metoclopramide Hcl*) 10 Mg Tablet, 10 MG GTB Q6H PRN for NAUSEA AND OR VOMITING, TAB 10/30/18 Potassium Chloride* (Potassium Chloride*) 20 Meq/15 Ml Liquid, 20 MEQ GTB DAILY, ML DILUTE WITH 120 CCS OF WATER 10/30/18 Multivitamin* (Daily Value*) 1 Each Tablet, 1 TAB GTB DAILY, TAB 10/30/18 Levetiracetam* (Keppra* (Ped)) 100 Mg/Ml Liq, 1500 MG GTB BID for 30 Days, BOTTLE 10/30/18 Ferrous Sulfate (Ferrous Sulfate) 220 Mg/5 Ml Solution, 300 MG GTB BID 10/30/18 Dexlansoprazole (Dexilant) 60 Mg Cap., 60 MG GTB DAILY, #30 CAP 10/30/18 Cranberry Extract (Cranberry) 425 Mg Capsule, 425 MG GTB BID, CAP 10/30/18 Docusate Sodium* (Colace*) 100 Mg Capsule, 100 MG GTB QHS, #60 CAP 10/30/18 Chlorhexidine Gluconate (Peridex) 473 Ml Mouthwash, 15 ML MM Q12, BOTTLE 10/30/18 Albuterol Sulfate* (Albuterol Sulfate* Neb) 0.083%-3 Ml Neb, 2.5 MG NEB Q6 PRN for WHEEZING AND SOB, #30 VIAL 10/30/18 Albuterol Sulfate* (Albuterol Sulfate* Neb) 0.083%-3 Ml Neb, 2.5 MG NEB Q3H PRN for WHEEZING AND SOB, #30 VIAL 10/30/18 Discontinued Reported Medications Ipratropium-Albuterol (Ipratropium-Albuterol) 0.5-3 Mg/3 Ml Ampul.neb, 3 ML INHALATION Q3H PRN for WHEEZING AND SOB, #30 VIAL 01/14/17 Ipratropium-Albuterol (Ipratropium-Albuterol) 0.5-3 Mg/3 Ml Ampul.neb, 3 ML INHALATION Q6 PRN for WHEEZING AND SOB, #30 VIAL 01/14/17 Cranberry Extract (Cranberry) 425 Mg Capsule, 425 MG PO BID, CAP 01/14/17 Ondansetron Hcl* (Zofran*) 4 Mg Tablet, 4 MG GTB Q6H PRN for NAUSEA AND OR VOMITING, TAB 01/14/17 Zinc Sulfate* (Zinc Sulfate*) 220 Mg Tablet, 220 MG GTB DAILY, TAB 01/14/17 Cran/Vitc/Mannose/Inulin/Brom (Uti-Stat Liquid) 3,875 Mg/30 Ml Liquid, 3875 MG GTB DAILY 01/14/17 Acetaminophen* (Acetaminophen*) 650 Mg Tablet, 650 MG PO TRACH CHANGE, #30 TAB GIVE 30 MIN PRIOR 01/14/17 Famotidine* (Pepcid*) 20 Mg Tablet, 20 MG GTB BID, #60 TAB 01/14/17 Ferrous Sulfate (Ferrous Sulfate) 300 Mg/5 Ml Liquid, 330 MG GTB BID 01/14/17 Chlorhexidine Gluconate (Peridex) 473 Ml Mouthwash, 15 ML MM Q12, BOTTLE 01/14/17 Metoclopramide* (Reglan*) 10 Mg/10 Ml Soln, 10 MG GTB Q6, ML 01/14/17 Docusate Sodium* (Colace*) 100 Mg Capsule, 100 MG GTB QHS, #30 CAP 12/16/16 Bisacodyl* (Bisacodyl*) 10 Mg Supp, 10 MG NH DAILY PRN for PRN, SUPP 12/16/16 Sod Phosphate/Sod Biphosphate* (Fleet* Enema Pediatric) 66.6 Ml Soln, 66.6 ML NH Q2DAYS PRN for CONSTIPATION, ENEMA 12/16/16 Magnesium Hydroxide* (Milk Of Magnesia*) 400 Mg/5 Ml Oral.susp, 30 ML GTB DAILY, ML 12/16/16 Multivit &Minerals/Ferrous Fum (MULTIVITAMIN LIQUID) 9 Mg/15 Ml Liquid, 5 ML GTB DAILY 12/16/16 Ascorbic Acid (Vitamin C) 500 Mg Tab, 500 MG GTB DAILY, TAB 12/16/16 Acetaminophen* (Tylenol*) 500 Mg Tab, 1000 MG GTB Q4H PRN for MODERATE PAIN 4- 11/15, TAB 12/16/16 Acetaminophen* (Tylenol*) 325 Mg Tablet, 650 MG GTB Q4H PRN for MILD PAIN LEVEL 1-3, TAB FOR FEVER 101 AND ABOVE,FOR TRACH TUBE CHANGE 12/16/16 Levetiracetam* (Keppra* (Ped)) 100 Mg/Ml Liq, 15 ML GTB BID for 30 Days, BOTTLE 12/16/16 Metoprolol Tartrate* (Lopressor*) 25 Mg Tab, 12.5 MG GTB BID, #60 TAB HOLD IF SBP<110 12/16/16 Lansoprazole* (Lansoprazole*) 30 Mg Capsule.dr, 30 MG GTB DAILY, CAP 12/16/16 Enoxaparin Sodium* (Lovenox*) 30 Mg/0.3 Ml Disp.syrin, 30 MG SQ DAILY, SYR 12/16/16 Aspirin* (Aspirin* EC) 81 Mg Tablet.dr, 81 MG GTB DAILY, TAB 12/16/16 Medications Current Medications Dextrose/Sodium Chloride 1,000 ml @ 100 mls/hr Q10H IV Last administered on 11/02/18at 01:00; Admin Dose 100 MLS/HR; Start 10/30/18 at 22:00 Acetaminophen (Tylenol Tab) 650 mg BID PRN GTB PAIN MANAGEMENT; Start 10/30/18 at 22:00 Acetaminophen (Tylenol Tab) 650 mg Q6 PRN GTB PAIN; Start 10/30/18 at 22:00 Albuterol (Proventil 0.083% (Neb)) 2.5 mg Q3H RESP THERAPY PRN NEB WHEEZING AND SOB; Start 10/30/18 at 22:00 Albuterol (Proventil 0.083% (Neb)) 2.5 mg Q6H RESP THERAPY PRN NEB WHEEZING AND SOB; Start 10/30/18 at 22:00 Ascorbic Acid (Vitamin C) 500 mg DAILY GTB Last administered on 11/01/18 09:52; Admin Dose 500 MG; Start 10/31/18 at 09:00 Metoclopramide HCl (Reglan) 10 mg Q6H PRN GTB NAUSEA AND/OR VOMITING; Start 10/30/18 at 22:00 Multivitamins (Multivitamin) 30 ml DAILY GTB Last administered on 11/01/18 09:50; Admin Dose 30 ML; Start 10/31/18 at 09:00 Pantoprazole (Protonix Tab) 40 mg DAILY@0600 PO Last administered on 11/02/18 05:42; Admin Dose 40 MG; Start 10/31/18 at 06:00 Ferrous Sulfate (Feosol Liquid Cup) 300 mg BID PO Last administered on 11/01/18 20:24; Admin Dose 300 MG; Start 10/30/18 at 22:00 Levetiracetam (Keppra Liquid) 1,500 mg BID GTB Last administered on 11/01/18 20:24; Admin Dose 1,500 MG; Start 10/30/18 at 22:30 Potassium Chloride (Potassium Chloride Pwd/Soln) 20 meq DAILY GTB Last administered on 11/01/18 09:51; Admin Dose 20 MEQ; Start 10/31/18 at 09:00 Acetaminophen (Tylenol Liquid) 650 mg Q4H PRN GTB MILD PAIN(1-3)OR ELEVATED TEMP Last administered on 11/02/18 05:43; Admin Dose 650 MG; Start 10/31/18 at 00:00 Vancomycin HCl (Vanco Iv Per Pharmacy) VANCOMYCIN PER PHARMACY PER PROTOCOL XX ; Start 10/31/18 at 07:00 Cefepime HCl 50 ml @ 100 mls/hr Q8 IVPB Last administered on 11/02/18 05:42; Admin Dose 100 MLS/HR; Start 10/31/18 at 16:00 Nystatin (Nystatin Oint) 1 applic BID TOP Last administered on 11/01/18 20:26; Admin Dose 1 APPLIC; Start 10/31/18 at 21:00 Aspirin (Aspirin) 81 mg DAILY PO Last administered on 11/01/18 09:52; Admin Dose 81 MG; Start 11/01/18 at 09:00 Enoxaparin Sodium (Lovenox) 70 mg Q12 SC Last administered on 11/01/18 20:30; Admin Dose 70 MG; Start 10/31/18 at 21:00 Vancomycin/Sodium Chloride 250 ml @ 125 mls/hr Q12H IVPB Last administered on 11/02/18 00:43; Admin Dose 125 MLS/HR; Start 11/02/18 at 00:00 Metoprolol Tartrate (Lopressor) 25 mg BID GTB Last administered on 11/01/18 20:55; Admin Dose 25 MG; Start 11/01/18 at 21:00 Tramadol HCl (Ultram) 50 mg Q4 PRN PO MODERATE PAIN LEVEL 4-6 Last administered on 11/02/18 05:43; Admin Dose 50 MG; Start 11/01/18 at 21:00 Metoprolol Tartrate (Lopressor) 5 mg Q4 PRN IV ELEVATED HEART RATE; Start 11/01/18 at 21:00 Docusate Sodium (Colace Liquid Cup) 100 mg BID GTB ; Start 11/02/18 at 09:00 Assessment/Plan Hospital Course (Demo Recall) 1. Non-ST elevation myocardial infarction with up trending cardiac enzymes likely demand infarct in the setting of significant tachycardia and fevers, se psis.-downtrending - no active CP - no intervention planned 2. Abnormal electrocardiogram with nonspecific ST-T abnormalities - treated. 3. Tachycardia, ongoing, likely due to the patient's underlying sepsis. 4. Sepsis with the Gram-positive cocci group in clusters growing in blood and Gram-negative rods growing in urine. Con't anti-Bx. 5. Urinary tract infection. 6. Chronic respiratory failure, status post tracheostomy- on vent. 7. s/p G-tube.- feedsat goal. 8. Chronic anoxic encephalopathy. 9. Leukocytosis significantly improved - no fevers now. 10. Anemia. 11. Hypernatremia. FABIOLA WATERS MD November 02, 2018 08:28
[2018-11-02] MEDS: METOPROLOL 25 MG TAB GTB SCH ×2 (09:00→20:11)
[2018-11-02] MEDS: DOCUSATE SODIUM 10 MG/ML (10ML CUP) GTB SCH ×2 (09:25→20:08)
[2018-11-02] MEDS: LEVETIRACETAM (100 MG/ML) 5ML CUP GTB SCH ×2 (09:25→20:08)
[2018-11-02] MEDS: ASPIRIN 81 MG TAB PO SCH (09:27)
[2018-11-02] MEDS: ASCORBIC ACID 500 MG TAB GTB SCH (09:28)
[2018-11-02] MEDS: BALSAM PERU/CASTOR OIL 60 GM TUBE TOP SCH (09:28)
[2018-11-02] MEDS: POTASSIUM CHLORIDE 20 MEQ POWDER FOR ORAL SOLN GTB SCH (09:28)
[2018-11-02] MEDS: FERROUS SULFATE 60 MG/ML 5ML CUP PO SCH ×2 (09:28→20:08)
[2018-11-02] MEDS: MULTIVITAMINS 30 ML CUP GTB SCH (09:28)
[2018-11-02] MEDS: ENOXAPARIN 80 MG/0.8 ML SYG SC SCH ×2 (09:44→20:15)
--- NOTE | 2018-11-02 09:55 | CONS ---
Assessment/Plan Assessment/Plan Assessment/Plan (Daily) CT chest was reviewed from yesterday which is showing bilateral lower lobe consolidation with a questionable right lower lobe pulmonary embolism. Ventilator setting; AC of 14, tidal volume 500, PEEP of 5, 80% FiO2. Assessment and recommendations; 1. Patient with history of chronic encephalopathy and VDR F admitted for severe hypoxemic respiratory failure due to combination of pneumonia as well as likely right lower lobe pulmonary embolism as the degree of hypoxemia is out of proportion to infiltrative findings on chest x-ray as well as CT of the chest. Patient is currently on appropriate anticoagulation as well as antimicrobial regimen. 2. History of advanced encephalopathy. 3. Stable seizure disorder. 4. History of hypertension. 5. UTI. 6. Coagulase-negative staph aureus bacteremia. Possibly culture is contaminant. Continue current supportive care. Wean down FiO2 as tolerated. Consultation Date/Type/Reason Admit Date/Time October 30, 2018 at 08:15 Initial Consult Date Type of Consult Pulmonary Patient is a 47-year-old male who has been transferred from intermediate because of fever. Patient had been diagnosed a UTI with possibly pyonephritis. Currently on appropriate antimicrobial regimen. Because of advanced encephalopathy, patient remains totally noncommunicative. However, patient did not appear to be in any distress. Past medical history; 1. Advanced encephalopathy 2. VDRF 3. G-tube placement. 4. Seizure disorder. Medications; reviewed. Allergies; none. Social history; not available. Family history; not available. Occupational history; patient is on disability. Review of system; unable to be obtained. General exam; young male, on ventilator via tracheostomy, non communicative and unresponsive. Currently no distress. Requesting Provider: RICHARD GIRARD MD Date/Time of Note DATE: 11/02/18 TIME: 09:53 24 HR Interval Summary Free Text/Dictation Patient's condition is still tenuous. On high FiO2. Patient however has remained hemodynamically stable. General exam; young male, on ventilator via tracheostomy, unresponsive due to chronic encephalopathy. Currently in no distress. Exam/Review of Systems Exam Vitals Vital Signs Date Temp Pulse Resp B/P (MAP) Pulse Ox O2 O2 Flow FiO2 Time Delivery Rate 11/02/18 94 08:45 11/02/18 98.7 20 104/64 100 Trach 08:04 (77) Collar 11/02/18 75 07:25 Intake and Output 11/01/18 11/01/18 11/02/18 1515:00 23:00 07:00 IntakeIntake Total 975 ml 1250 ml BalanceBalance 975 ml 1250 ml Exam H EENT exam; supple neck, no JVD. No lymphadenopathy. Midline trachea. No thyromegaly. Tracheostomy placed. Insertion site is clean. Patient is edentulous. Chest exam; diminished breath sounds bilaterally. S1-S2 audible, no murmurs. Regular rhythm. Abdomen exam; soft, no organomegaly. G-tube in place. Bowel sounds audible. Extremity exam; no peripheral edema. Patient has a flexion contractures. PRODUCT SCIENTIST exam; patient remains noncommunicative. Results Result Diagram: 11/02/18 0535 11/02/18 0535 Results 24hrs Laboratory Tests Test 11/01/18 19:06 11/02/18 05:35 Vancomycin Level Trough 21.9 *H White Blood Count 5.3 # Red Blood Count 4.54 L Hemoglobin 10.3 L Hematocrit 35.3 L Mean Corpuscular Volume 77.8 L Mean Corpuscular Hemoglobin 22.7 L Mean Corpuscular Hemoglobin Concent 29.2 L Red Cell Distribution Width 17.1 H Platelet Count 138 L Mean Platelet Volume Immature Granulocytes % 0.800 H Neutrophils % Segmented Neutrophils % (Manual) 64 Band Neutrophils % (Manual) 18 H Lymphocytes % Lymphocytes % (Manual) 14 L Monocytes % Monocytes % (Manual) 3 Eosinophils % Basophils % Basophils % (Manual) 1 Nucleated Red Blood Cells % 0.0 Immature Granulocytes # 0.040 H Neutrophils # Neutrophils # (Manual) 3.4 Band Neutrophils # 0.9 H Lymphocytes (Manual) 0.7 L Lymphocytes # Monocytes # Monocytes # (Manual) 0.1 L Eosinophils # Basophils # Basophils # (Manual) 0.0 Nucleated Red Blood Cells # Platelet Estimate DECREASED Hypochromasia 1+ Poikilocytosis 1+ Anisocytosis 2+ Microcytosis 2+ Sodium Level 151 H Potassium Level 3.1 L Chloride Level 123 H Carbon Dioxide Level 21 Anion Gap 7 Blood Urea Nitrogen 25 H Creatinine 0.65 Est Glomerular Filtrat Rate mL/min > 60 Glucose Level 122 Calcium Level 8.2 L Total Bilirubin 0.6 Direct Bilirubin 0.00 Indirect Bilirubin 0.6 Aspartate Amino Transf (AST/SGOT) 70 H Alanine Aminotransferase (ALT/SGPT) 43 Alkaline Phosphatase 38 L Total Protein 6.0 L Albumin 2.7 L Globulin 3.30 H Albumin/Globulin Ratio 0.81 Lipase 346 H Medications Medication Current Medications Dextrose/Sodium Chloride 1,000 ml @ 100 mls/hr Q10H IV Last administered on 11/02/18 01:00; Admin Dose 100 MLS/HR; Start 10/30/18 at 22:00 Acetaminophen (Tylenol Tab) 650 mg BID PRN GTB PAIN MANAGEMENT; Start 10/30/18 at 22:00 Acetaminophen (Tylenol Tab) 650 mg Q6 PRN GTB PAIN; Start 10/30/18 at 22:00 Albuterol (Proventil 0.083% (Neb)) 2.5 mg Q3H RESP THERAPY PRN NEB WHEEZING AND SOB; Start 10/30/18 at 22:00 Albuterol (Proventil 0.083% (Neb)) 2.5 mg Q6H RESP THERAPY PRN NEB WHEEZING AND SOB; Start 10/30/18 at 22:00 Ascorbic Acid (Vitamin C) 500 mg DAILY GTB Last administered on 11/01/18 09:52; Admin Dose 500 MG; Start 10/31/18 at 09:00 Metoclopramide HCl (Reglan) 10 mg Q6H PRN GTB NAUSEA AND/OR VOMITING; Start 10/30/18 at 22:00 Multivitamins (Multivitamin) 30 ml DAILY GTB Last administered on 11/01/18 09:50; Admin Dose 30 ML; Start 10/31/18 at 09:00 Pantoprazole (Protonix Tab) 40 mg DAILY@0600 PO Last administered on 11/02/18at 05:42; Admin Dose 40 MG; Start 10/31/18 at 06:00 Ferrous Sulfate (Feosol Liquid Cup) 300 mg BID PO Last administered on 11/01/18 20:24; Admin Dose 300 MG; Start 10/30/18 at 22:00 Levetiracetam (Keppra Liquid) 1,500 mg BID GTB Last administered on 11/01/18 20:24; Admin Dose 1,500 MG; Start 10/30/18 at 22:30 Potassium Chloride (Potassium Chloride Pwd/Soln) 20 meq DAILY GTB Last administered on 11/01/18 09:51; Admin Dose 20 MEQ; Start 10/31/18 at 09:00 Acetaminophen (Tylenol Liquid) 650 mg Q4H PRN GTB MILD PAIN(1-3)OR ELEVATED TEMP Last administered on 11/02/18 05:43; Admin Dose 650 MG; Start 10/31/18 at 00:00 Vancomycin HCl (Vanco Iv Per Pharmacy) VANCOMYCIN PER PHARMACY PER PROTOCOL XX ; Start 10/31/18 at 07:00 Cefepime HCl 50 ml @ 100 mls/hr Q8 IVPB Last administered on 11/02/18 05:42; Admin Dose 100 MLS/HR; Start 10/31/18 at 16:00 Nystatin (Nystatin Oint) 1 applic BID TOP Last administered on 11/01/18 20:26; Admin Dose 1 APPLIC; Start 10/31/18 at 21:00 Aspirin (Aspirin) 81 mg DAILY PO Last administered on 11/01/18 09:52; Admin Dose 81 MG; Start 11/01/18 at 09:00 Enoxaparin Sodium (Lovenox) 70 mg Q12 SC Last administered on 11/01/18 20:30; Admin Dose 70 MG; Start 10/31/18 at 21:00 Vancomycin/Sodium Chloride 250 ml @ 125 mls/hr Q12H IVPB Last administered on 11/02/18 00:43; Admin Dose 125 MLS/HR; Start 11/02/18 at 00:00 Metoprolol Tartrate (Lopressor) 25 mg BID GTB Last administered on 11/01/18 20:55; Admin Dose 25 MG; Start 11/01/18 at 21:00 Tramadol HCl (Ultram) 50 mg Q4 PRN PO MODERATE PAIN LEVEL 4-6 Last administered on 11/02/18 05:43; Admin Dose 50 MG; Start 11/01/18 at 21:00 Metoprolol Tartrate (Lopressor) 5 mg Q4 PRN IV ELEVATED HEART RATE; Start 11/01/18 at 21:00 Docusate Sodium (Colace Liquid Cup) 100 mg BID GTB ; Start 11/02/18 at 09:00 MI JEFFERS November 02, 2018 09:55
--- NOTE | 2018-11-02 11:23 | RADRPT ---
Echocardiogram Report Patient Name: FALGUNI MARLOWSPatient ID: [id number] : 1970 (47y 11m)Study Date: 11/02/2018 8:27:10 AM Gender: MAccession #: [id number] Tech: Kuldeep Galvan [facility] Location: [facility] Ref.Physician: ELOINA MISHRA Height(Cm): BSA: Weight(Kg): Quality: Technically Difficult StudyOrder Physician: ELOINA MISHRA Account #: Procedures: Echocardiographic Report: Transthoracic echocardiogram with complete 2D, M-Mode, and doppler examination. Indications: NSTEMI. Measurements: 2D/M Mode Doppler Measurement Value Normal Range Measurement Value Normal Range LVIDd 2D 3.8 [ 4.2 - 5.8 ] cm AV Peak Ryan 1.0 [ 100.0 - 170.0 ] cm/sec LVIDs 2D 2.5 [ 2.5 - 4.0 ] cm AV Peak PG 4.0 [ 2.0 - 9.0 ] mmHg LVPWd 2D 0.8 [ 0.6 - 1.0 ] cm LVOT Peak Ryan 0.8 [ 70.0 - 110.0 ] cm/sec IVSd 2D 1.4 [ 0.6 - 1.0 ] cm LVOT Peak PG 3.0 [ 2.0 - 6.0 ] mmHg AoR Diam 2D 2.7 [ 2.6 - 3.4 ] cm MV E Peak Ryan 0.6 [ 60.0 - 130.0 ] cm/sec EDV 2D 62.0 [ 62.0 - 150.0 ] ml MV A Peak Ryan 0.8 [ 100.0 - 120.0 ] cm/sec ESV 2D 21.4 [ 21.0 - 61.0 ] ml MV E/A 0.7 [ 0.8 - 1.5 ] ratio EF 2D 65.5 [ 52.0 - 72.0 ] percent MV Decel Time 169 [ 104 - 258 ] msec LA Dimen 2D 2.6 [ 3.0 - 4.0 ] cm Lat E` Ryan 0.1 [ 10.0 - 15.0 ] cm/sec Lateral E/E` 11.1 [ 1.0 - 2.0 ] ratio MV E/A 0.7 [ 0.8 - 1.5 ] ratio Findings: Left Ventricle: Normal left ventricular systolic function. Normal left ventricular cavity size. Moderate asymmetric septal hypertrophy. Ejection fraction is visually estimated at 60 %. Tissue Doppler/Mitral Doppler indices are consistent with impaired relaxation (Stage I diastolic dysfunction). Right Ventricle: Normal right ventricular size. Normal right ventricular systolic function. Left Atrium: The left atrium is normal in size. Right Atrium: The right atrium is normal in size. Mitral Valve: Normal appearance and function of the mitral valve with trace physiologic regurgitation. Aortic Valve: Normal appearance of the aortic valve. No significant aortic stenosis or insufficiency. Tricuspid Valve: Normal appearance of the tricuspid valve. Unable to obtain RVSP due to minimal presence of tricuspid regurgitation. Pulmonic Valve: Pulmonic valve not well visualized. Pericardium: Normal pericardium with no significant pericardial effusion. Aorta: Normal aortic root. IVC: Normal IVC with respiratory collapse, however patient on ventilator. Conclusions: Normal left ventricular systolic function. Normal left ventricular cavity size. Moderate asymmetric septal hypertrophy. Ejection fraction is visually estimated at 60 %. Tissue Doppler/Mitral Doppler indices are consistent with impaired relaxation (Stage I diastolic dysfunction). Normal appearance and function of the mitral valve with trace physiologic regurgitation. Normal appearance of the aortic valve. No significant aortic stenosis or insufficiency. Normal appearance of the tricuspid valve. Unable to obtain RVSP due to minimal presence of tricuspid regurgitation. Electronically Signed By: Brannon Appiah 2018-11-02 11:22:36 PDT
[2018-11-02] MEDS: NYSTATIN 15 GM OINT TOP SCH ×2 (12:23→20:11)
--- NOTE | 2018-11-02 14:57 | CONS ---
Assessment/Plan Assessment/Plan Hospital Course (Demo Recall) No acute events patient is noncommunicative in no distress afebrile. T-max 101.3 T-current 98.6 WBC 5.3 platelets 138 neutrophils 64 bands 18 BUN 25 creatinine 0.65 Microbiology: Blood culture on admission grew coag negative staph species, urine culture grew Proteus mirabilis susceptible to cefotaxime tobramycin and gent influenza swab negative, MRSA negative CT of the chest on admission revealed right lower lobe dense wench shaped consolidation with moderate bilateral peribronchial nodular opacities consistent with multifocal pneumonia. Hydronephrosis of the right kidney of mild severity secondary to partial visualization of a 10 mm stone in the right proximal ureter with wall thickening and inflammation of the right renal pelvic wall and proximal ureteral wall. Please see full report in the chart Antimicrobials: Vancomycin, cefepime Physical examination: Chronically ill-appearing vegetative middle-aged man who is in no distress. Head atraumatic normocephalic neck is supple tracheostomy present chest rise symmetrical breath sounds diminished bases. Heart: S1-S2. Abdomen soft bowel sounds hypoactive. Extremities wasted contractured Assessment: 1. Severe sepsis, present on admission 2. Coag negative staph bacteremia, possibly line sepsis as patient had PICC jae e on admission that was discontinued 3. Multifocal healthcare associated pneumonia 4. Urinary tract infection with obstructive uropathy 5. Vegetative 6. Elevated lipase on admission==> no evidence for pancreatitis per CT 7. DNR Plan: Repeat blood cultures, continue antibiotics, consider to put Charles catheter and send urine culture if it is not done, consider urology evaluation Consultation Date/Type/Reason Admit Date/Time October 30, 2018 at 08:15 Initial Consult Date Type of Consult id Requesting Provider: RICHARD GIRARD MD Date/Time of Note DATE: 11/02/18 TIME: 14:57 Exam/Review of Systems Exam Vitals Vital Signs Date Temp Pulse Resp B/P (MAP) Pulse Ox O2 O2 Flow FiO2 Time Delivery Rate 11/02/18 98.6 107 107/61 14:27 (76) 11/02/18 16 95 85 13:10 11/02/18 Trach 11:58 Collar Intake and Output 11/01/18 11/01/18 11/02/18 1515:00 23:00 07:00 IntakeIntake Total 975 ml 1250 ml BalanceBalance 975 ml 1250 ml Results Result Diagram: 11/02/18 0535 11/02/18 0535 Results 24hrs Laboratory Tests Test 11/01/18 19:06 11/02/18 05:35 Vancomycin Level Trough 21.9 *H White Blood Count 5.3 # Red Blood Count 4.54 L Hemoglobin 10.3 L Hematocrit 35.3 L Mean Corpuscular Volume 77.8 L Mean Corpuscular Hemoglobin 22.7 L Mean Corpuscular Hemoglobin Concent 29.2 L Red Cell Distribution Width 17.1 H Platelet Count 138 L Mean Platelet Volume Immature Granulocytes % 0.800 H Neutrophils % Segmented Neutrophils % (Manual) 64 Band Neutrophils % (Manual) 18 H Lymphocytes % Lymphocytes % (Manual) 14 L Monocytes % Monocytes % (Manual) 3 Eosinophils % Basophils % Basophils % (Manual) 1 Nucleated Red Blood Cells % 0.0 Immature Granulocytes # 0.040 H Neutrophils # Neutrophils # (Manual) 3.4 Band Neutrophils # 0.9 H Lymphocytes (Manual) 0.7 L Lymphocytes # Monocytes # Monocytes # (Manual) 0.1 L Eosinophils # Basophils # Basophils # (Manual) 0.0 Nucleated Red Blood Cells # Platelet Estimate DECREASED Hypochromasia 1+ Poikilocytosis 1+ Anisocytosis 2+ Microcytosis 2+ Sodium Level 151 H Potassium Level 3.1 L Chloride Level 123 H Carbon Dioxide Level 21 Anion Gap 7 Blood Urea Nitrogen 25 H Creatinine 0.65 Est Glomerular Filtrat Rate mL/min > 60 Glucose Level 122 Calcium Level 8.2 L Total Bilirubin 0.6 Direct Bilirubin 0.00 Indirect Bilirubin 0.6 Aspartate Amino Transf (AST/SGOT) 70 H Alanine Aminotransferase (ALT/SGPT) 43 Alkaline Phosphatase 38 L Total Protein 6.0 L Albumin 2.7 L Globulin 3.30 H Albumin/Globulin Ratio 0.81 Lipase 346 H Medications Medication Current Medications Dextrose/Sodium Chloride 1,000 ml @ 100 mls/hr Q10H IV Last administered on 11/02/18at 01:00; Admin Dose 100 MLS/HR; Start 10/30/18 at 22:00 Acetaminophen (Tylenol Tab) 650 mg BID PRN GTB PAIN MANAGEMENT; Start 10/30/18 at 22:00 Acetaminophen (Tylenol Tab) 650 mg Q6 PRN GTB PAIN; Start 10/30/18 at 22:00 Albuterol (Proventil 0.083% (Neb)) 2.5 mg Q3H RESP THERAPY PRN NEB WHEEZING AND SOB; Start 10/30/18 at 22:00 Albuterol (Proventil 0.083% (Neb)) 2.5 mg Q6H RESP THERAPY PRN NEB WHEEZING AND SOB; Start 10/30/18 at 22:00 Ascorbic Acid (Vitamin C) 500 mg DAILY GTB Last administered on 11/02/18 09:28; Admin Dose 500 MG; Start 10/31/18 at 09:00 Metoclopramide HCl (Reglan) 10 mg Q6H PRN GTB NAUSEA AND/OR VOMITING; Start 10/30/18 at 22:00 Multivitamins (Multivitamin) 30 ml DAILY GTB Last administered on 11/02/18 09:28; Admin Dose 30 ML; Start 10/31/18 at 09:00 Pantoprazole (Protonix Tab) 40 mg DAILY@0600 PO Last administered on 11/02/18 05:42; Admin Dose 40 MG; Start 10/31/18 at 06:00 Ferrous Sulfate (Feosol Liquid Cup) 300 mg BID PO Last administered on 11/02/18 09:28; Admin Dose 300 MG; Start 10/30/18 at 22:00 Levetiracetam (Keppra Liquid) 1,500 mg BID GTB Last administered on 11/02/18 09:25; Admin Dose 1,500 MG; Start 10/30/18 at 22:30 Potassium Chloride (Potassium Chloride Pwd/Soln) 20 meq DAILY GTB Last administered on 11/02/18 09:28; Admin Dose 20 MEQ; Start 10/31/18 at 09:00 Acetaminophen (Tylenol Liquid) 650 mg Q4H PRN GTB MILD PAIN(1-3)OR ELEVATED TEMP Last administered on 11/02/18 05:43; Admin Dose 650 MG; Start 10/31/18 at 00:00 Vancomycin HCl (Vanco Iv Per Pharmacy) VANCOMYCIN PER PHARMACY PER PROTOCOL XX ; Start 10/31/18 at 07:00 Cefepime HCl 50 ml @ 100 mls/hr Q8 IVPB Last administered on 11/02/18 05:42; Admin Dose 100 MLS/HR; Start 10/31/18 at 16:00 Nystatin (Nystatin Oint) 1 applic BID TOP Last administered on 11/02/18 12:23; Admin Dose 1 APPLIC; Start 10/31/18 at 21:00 Aspirin (Aspirin) 81 mg DAILY PO Last administered on 11/02/18 09:27; Admin Dose 81 MG; Start 11/01/18 at 09:00 Enoxaparin Sodium (Lovenox) 70 mg Q12 SC Last administered on 11/02/18 09:44; Admin Dose 70 MG; Start 10/31/18 at 21:00 Vancomycin/Sodium Chloride 250 ml @ 125 mls/hr Q12H IVPB Last administered on 11/02/18 12:23; Admin Dose 125 MLS/HR; Start 11/02/18 at 00:00 Metoprolol Tartrate (Lopressor) 25 mg BID GTB Last administered on 11/01/18at 20:55; Admin Dose 25 MG; Start 11/01/18 at 21:00 Tramadol HCl (Ultram) 50 mg Q4 PRN PO MODERATE PAIN LEVEL 4-6 Last administered on 11/02/18 12:23; Admin Dose 50 MG; Start 11/01/18 at 21:00 Metoprolol Tartrate (Lopressor) 5 mg Q4 PRN IV ELEVATED HEART RATE; Start 11/01/18 at 21:00 Docusate Sodium (Colace Liquid Cup) 100 mg BID GTB Last administered on 11/02/18 at 09:25; Admin Dose 100 MG; Start 11/02/18 at 09:00 YURY YOON NP November 02, 2018 14:57
[2018-11-02] MEDS: D5W-0.45 NACL + KCL 20 MEQ 1,000 ML IV SCH (17:24)
[2018-11-02] MEDS: POTASSIUM CHLORIDE 100 ML IVPB SCH ×2 (17:24→20:13)
--- NOTE | 2018-11-02 18:54 | PN ---
Date/Time of Note Date/Time of Note DATE: 11/02/18 TIME: 18:52 Assessment/Plan VTE Prophylaxis Risk score (from [facility] [place])>0 risk: 5 SCD applied (from Ns): Yes Pharmacological prophylaxis: LMWH Lines/Catheters IV Catheter Type (from [facility] Mid Line Urinary Cath still in place: Yes Reason Cath still needed: urinary retention Assessment/Plan Hospital Course Patient with urinary retention status post Charles catheter insertion with a large amount of urine, patient is n.p.o. for pancreatitis, continue IV fluids. Assessment/Plan -Sepsis with gram-positive cocci bacteremia MDR Proteus UTI. Continue antibiotics per ID. Dr. Matias is following in infection disease consultation. -Non-ST elevation myocardial infarction, continue aspirin, Lovenox, beta- samantha. Dr. Flor is following in cardiology consultation. -Pancreatitis, keep n.p.o. continue IV fluids, pending MRCP. Dr. Walton is following in gastroenterology consultation. -Ventilator dependent respiratory failure with tracheostomy. -Anoxic encephalopathy status post cardiac arrest in 2009 -Ventilator dependent respiratory failure -Dysphagia with PEG -Seizure disorder, continue Keppra. -Schizophrenia -Multiple wounds, continue current wound care, offloading. Further recommendations based on clinical course. Plan of care discussed with Dr. Courtney. Result Diagram: 11/02/18 0535 11/02/18 0535 Results 24hrs Laboratory Tests Test 11/01/18 19:06 11/02/18 05:35 Vancomycin Level Trough 21.9 *H White Blood Count 5.3 # Red Blood Count 4.54 L Hemoglobin 10.3 L Hematocrit 35.3 L Mean Corpuscular Volume 77.8 L Mean Corpuscular Hemoglobin 22.7 L Mean Corpuscular Hemoglobin Concent 29.2 L Red Cell Distribution Width 17.1 H Platelet Count 138 L Mean Platelet Volume Immature Granulocytes % 0.800 H Neutrophils % Segmented Neutrophils % (Manual) 64 Band Neutrophils % (Manual) 18 H Lymphocytes % Lymphocytes % (Manual) 14 L Monocytes % Monocytes % (Manual) 3 Eosinophils % Basophils % Basophils % (Manual) 1 Nucleated Red Blood Cells % 0.0 Immature Granulocytes # 0.040 H Neutrophils # Neutrophils # (Manual) 3.4 Band Neutrophils # 0.9 H Lymphocytes (Manual) 0.7 L Lymphocytes # Monocytes # Monocytes # (Manual) 0.1 L Eosinophils # Basophils # Basophils # (Manual) 0.0 Nucleated Red Blood Cells # Platelet Estimate DECREASED Hypochromasia 1+ Poikilocytosis 1+ Anisocytosis 2+ Microcytosis 2+ Sodium Level 151 H Potassium Level 3.1 L Chloride Level 123 H Carbon Dioxide Level 21 Anion Gap 7 Blood Urea Nitrogen 25 H Creatinine 0.65 Est Glomerular Filtrat Rate mL/min > 60 Glucose Level 122 Calcium Level 8.2 L Total Bilirubin 0.6 Direct Bilirubin 0.00 Indirect Bilirubin 0.6 Aspartate Amino Transf (AST/SGOT) 70 H Alanine Aminotransferase (ALT/SGPT) 43 Alkaline Phosphatase 38 L Total Protein 6.0 L Albumin 2.7 L Globulin 3.30 H Albumin/Globulin Ratio 0.81 Lipase 346 H Exam/Review of Systems Exam Vitals Vital Signs Date Temp Pulse Resp B/P (MAP) Pulse Ox O2 O2 Flow FiO2 Time Delivery Rate 11/02/18 103 32 99 85 17:15 11/02/18 98.4 94/67 (76) Trach 15:48 Collar Intake and Output 11/01/18 11/01/18 11/02/18 1515:00 23:00 07:00 IntakeIntake Total 975 ml 1250 ml BalanceBalance 975 ml 1250 ml Exam Constitutional: frail Neck: supple, other (Tracheostomy) Respiratory: diminished breath sounds Cardiovascular: regular rate and rhythm, other Gastrointestinal: soft, tender Musculoskeletal: other Extremities: other (Contracted extremities) Neurological: other (Noncommunicative) Skin: other (Multiple wounds) Results Results 24hrs Laboratory Tests Test 11/01/18 19:06 11/02/18 05:35 Vancomycin Level Trough 21.9 *H White Blood Count 5.3 # Red Blood Count 4.54 L Hemoglobin 10.3 L Hematocrit 35.3 L Mean Corpuscular Volume 77.8 L Mean Corpuscular Hemoglobin 22.7 L Mean Corpuscular Hemoglobin Concent 29.2 L Red Cell Distribution Width 17.1 H Platelet Count 138 L Mean Platelet Volume Immature Granulocytes % 0.800 H Neutrophils % Segmented Neutrophils % (Manual) 64 Band Neutrophils % (Manual) 18 H Lymphocytes % Lymphocytes % (Manual) 14 L Monocytes % Monocytes % (Manual) 3 Eosinophils % Basophils % Basophils % (Manual) 1 Nucleated Red Blood Cells % 0.0 Immature Granulocytes # 0.040 H Neutrophils # Neutrophils # (Manual) 3.4 Band Neutrophils # 0.9 H Lymphocytes (Manual) 0.7 L Lymphocytes # Monocytes # Monocytes # (Manual) 0.1 L Eosinophils # Basophils # Basophils # (Manual) 0.0 Nucleated Red Blood Cells # Platelet Estimate DECREASED Hypochromasia 1+ Poikilocytosis 1+ Anisocytosis 2+ Microcytosis 2+ Sodium Level 151 H Potassium Level 3.1 L Chloride Level 123 H Carbon Dioxide Level 21 Anion Gap 7 Blood Urea Nitrogen 25 H Creatinine 0.65 Est Glomerular Filtrat Rate mL/min > 60 Glucose Level 122 Calcium Level 8.2 L Total Bilirubin 0.6 Direct Bilirubin 0.00 Indirect Bilirubin 0.6 Aspartate Amino Transf (AST/SGOT) 70 H Alanine Aminotransferase (ALT/SGPT) 43 Alkaline Phosphatase 38 L Total Protein 6.0 L Albumin 2.7 L Globulin 3.30 H Albumin/Globulin Ratio 0.81 Lipase 346 H Medications Medication Current Medications Acetaminophen (Tylenol Tab) 650 mg BID PRN GTB PAIN MANAGEMENT; Start 10/30/18 at 22:00 Acetaminophen (Tylenol Tab) 650 mg Q6 PRN GTB PAIN; Start 10/30/18 at 22:00 Albuterol (Proventil 0.083% (Neb)) 2.5 mg Q3H RESP THERAPY PRN NEB WHEEZING AND SOB; Start 10/30/18 at 22:00 Albuterol (Proventil 0.083% (Neb)) 2.5 mg Q6H RESP THERAPY PRN NEB WHEEZING AND SOB; Start 10/30/18 at 22:00 Ascorbic Acid (Vitamin C) 500 mg DAILY GTB Last administered on 11/02/18at 09:28; Admin Dose 500 MG; Start 10/31/18 at 09:00 Metoclopramide HCl (Reglan) 10 mg Q6H PRN GTB NAUSEA AND/OR VOMITING; Start 10/30/18 at 22:00 Multivitamins (Multivitamin) 30 ml DAILY GTB Last administered on 11/02/18at 09:28; Admin Dose 30 ML; Start 10/31/18 at 09:00 Pantoprazole (Protonix Tab) 40 mg DAILY@0600 PO Last administered on 11/02/18at 05:42; Admin Dose 40 MG; Start 10/31/18 at 06:00 Ferrous Sulfate (Feosol Liquid Cup) 300 mg BID PO Last administered on 11/02/18at 09:28; Admin Dose 300 MG; Start 10/30/18 at 22:00 Levetiracetam (Keppra Liquid) 1,500 mg BID GTB Last administered on 11/02/18 09:25; Admin Dose 1,500 MG; Start 10/30/18 at 22:30 Potassium Chloride (Potassium Chloride Pwd/Soln) 20 meq DAILY GTB Last administered on 11/02/18 09:28; Admin Dose 20 MEQ; Start 10/31/18 at 09:00 Acetaminophen (Tylenol Liquid) 650 mg Q4H PRN GTB MILD PAIN(1-3)OR ELEVATED TEMP Last administered on 11/02/18 05:43; Admin Dose 650 MG; Start 10/31/18 at 00:00 Vancomycin HCl (Vanco Iv Per Pharmacy) VANCOMYCIN PER PHARMACY PER PROTOCOL XX ; Start 10/31/18 at 07:00 Cefepime HCl 50 ml @ 100 mls/hr Q8 IVPB Last administered on 11/02/18 15:22; Admin Dose 100 MLS/HR; Start 10/31/18 at 16:00 Nystatin (Nystatin Oint) 1 applic BID TOP Last administered on 11/02/18 12:23; Admin Dose 1 APPLIC; Start 10/31/18 at 21:00 Aspirin (Aspirin) 81 mg DAILY PO Last administered on 11/02/18 09:27; Admin Dose 81 MG; Start 11/01/18 at 09:00 Enoxaparin Sodium (Lovenox) 70 mg Q12 SC Last administered on 11/02/18 09:44; Admin Dose 70 MG; Start 10/31/18 at 21:00 Vancomycin/Sodium Chloride 250 ml @ 125 mls/hr Q12H IVPB Last administered on 11/02/18 12:23; Admin Dose 125 MLS/HR; Start 11/02/18 at 00:00 Metoprolol Tartrate (Lopressor) 25 mg BID GTB Last administered on 11/01/18 20:55; Admin Dose 25 MG; Start 11/01/18 at 21:00 Tramadol HCl (Ultram) 50 mg Q4 PRN PO MODERATE PAIN LEVEL 4-6 Last administered on 11/02/18 12:23; Admin Dose 50 MG; Start 11/01/18 at 21:00 Metoprolol Tartrate (Lopressor) 5 mg Q4 PRN IV ELEVATED HEART RATE; Start 11/01/18 at 21:00 Docusate Sodium (Colace Liquid Cup) 100 mg BID GTB Last administered on 11/02/18at 09:25; Admin Dose 100 MG; Start 11/02/18 at 09:00 Potassium Chloride/Dextrose/ Sod Cl 1,000 ml @ 100 mls/hr Q10H IV Last administered on 11/02/18at 17:24; Admin Dose 100 MLS/HR; Start 11/02/18 at 17:30 Potassium Chloride 100 ml @ 50 mls/hr Q2H IVPB Last administered on 11/02/18at 17:24; Admin Dose 50 MLS/HR; Start 11/02/18 at 17:30; Stop 11/02/18 at 21:29 Collagenase (Santyl) 1 applic DAILY TOP ; Start 11/03/18 at 09:00 JH WISDOM November 02, 2018 18:54
[2018-11-03] VITALS (24 sets, daily range): BP systolic 85–113; BP diastolic 54–64; PULSE 84–104; RESP 20–31
[2018-11-03] MEDS: VANCOMYCIN 750 MG (PMX) 250 ML IVPB SCH ×2 (00:40→12:32)
[2018-11-03] MEDS ORDERED: SOD CHLORIDE 0.9% 500 ML IV ONE (01:00)
--- NOTE | 2018-11-03 02:21 | EN ---
Date/Time of Note Date/Time of Note DATE: 11/03/18 TIME: 02: Event Note Medicine Medicine Event Note STAFF AUDITOR note RTT called for hypotension Patient seen and examined at the bedside. Patient is contracted secondary history of anoxic brain injury. Patient is currently septic with blood pressures in the 86 systolic. Patient did receive 500 cc bolus that did not help much with the blood pressure. Primary physician did not want any more saline fluids. Vitals: Temperature 98.3/blood pressure 86/50/heart rate 62/100% on chronic trach to vent General: Nonresponsive which is chronic secondary to anoxic brain injury CVS: Regular rate rhythm Lungs: Coarse breath sounds bilaterally Neuro: Encephalopathic, anoxic brain injury, contracted Assessment and plan: #1 hypotension secondary to underlying sepsis. At the current time will initiate patient on Midodrine, albumin 25% 100 mL x 2. Patient is a DNR/DNI. Continue monitoring on telemetry floor. Continue antibiotics as ordered. RN to notify primary doctor for further orders. Greater than 30 minutes critical care time was spent on the care management this patient. SHERLY GUILLEN November 03, 2018 02:21
[2018-11-03] MEDS: MIDODRINE 5 MG TAB GTB SCH ×4 (02:24→16:50)
[2018-11-03] MEDS: ALBUMIN HUMAN 25% 100 ML IV SCH ×2 (02:26→03:37)
[2018-11-03] MEDS: D5W-0.45 NACL + KCL 20 MEQ 1,000 ML IV SCH ×2 (03:30→11:27)
[2018-11-03] MEDS: PANTOPRAZOLE (EC) 40 MG TAB PO SCH (05:41)
[2018-11-03] MEDS: CEFEPIME 1GM/50 ML (PMX) 50 ML IVPB SCH ×3 (05:41→21:40)
[2018-11-03] MEDS: METOPROLOL 25 MG TAB GTB SCH ×2 (09:00→21:00)
--- NOTE | 2018-11-03 09:07 | RADRPT ---
Vent Rate: 114 bpm RR Interval: 524 msec CO Interval: 71 msec QRS Duration: 62 msec QT Interval: 260 msec QTC Interval: 359 msec P-R-T [place]: 11 - 58 - 68 degrees Sinus tachycardia...with Atrial premature complex Low voltage, precordial leads...precordial leads <1.0mV Electronically Signed By: Manohar Iqbal
[2018-11-03] MEDS: FERROUS SULFATE 60 MG/ML 5ML CUP PO SCH ×2 (09:33→21:39)
[2018-11-03] MEDS: ASPIRIN 81 MG TAB PO SCH (09:33)
[2018-11-03] MEDS: MULTIVITAMINS 30 ML CUP GTB SCH (09:33)
[2018-11-03] MEDS: POTASSIUM CHLORIDE 20 MEQ POWDER FOR ORAL SOLN GTB SCH (09:33)
[2018-11-03] MEDS: LEVETIRACETAM (100 MG/ML) 5ML CUP GTB SCH ×2 (09:33→21:39)
[2018-11-03] MEDS: DOCUSATE SODIUM 10 MG/ML (10ML CUP) GTB SCH ×2 (09:33→21:40)
[2018-11-03] MEDS: ASCORBIC ACID 500 MG TAB GTB SCH (09:33)
[2018-11-03] MEDS: ENOXAPARIN 80 MG/0.8 ML SYG SC SCH (09:36)
--- NOTE | 2018-11-03 10:10 | CONS ---
Assessment/Plan Assessment/Plan Assessment/Plan (Daily) Ventilator setting; AC of 14, tidal volume 500, PEEP of 5, 70% FiO2. Assessment and recommendations 1. Patient with history of VDRF and chronic encephalopathy admitted for severe hypoxemia due to bilateral pneumonia. 2. Questionable PE. 3. Stable seizure disorder. 4. Significant drop in platelet count. Lovenox induced. Discontinue further Lovenox dosing. Obtain repeat ABG. Obtain lower extremity venous ultrasound to rule out DVT. Consultation Date/Type/Reason Admit Date/Time October 30, 2018 at 08:15 Initial Consult Date Type of Consult Pulmonary Patient is a 47-year-old male who has been transferred from [facility] because of fever. Patient had been diagnosed a UTI with possibly pyonephritis. Currently on appropriate antimicrobial regimen. Because of advanced encephalopathy, patient remains totally noncommunicative. However, patient did not appear to be in any distress. Past medical history; 1. Advanced encephalopathy 2. VDRF 3. G-tube placement. 4. Seizure disorder. Medications; reviewed. Allergies; none. Social history; not available. Family history; not available. Occupational history; patient is on disability. Review of system; unable to be obtained. General exam; young male, on ventilator via tracheostomy, non communicative and unresponsive. Currently no distress. Requesting Provider: RICHARD GIRARD MD Date/Time of Note DATE: 11/03/18 TIME: 10:07 24 HR Interval Summary Free Text/Dictation Patient's condition is stable. Remains noncommunicative due to chronic encephalopathy. Patient however has remained hemodynamically stable. Still on fairly high FiO2. General exam; young male, on ventilator via tracheostomy, unresponsive, currently in no distress. Exam/Review of Systems Exam Vitals Vital Signs Date Temp Pulse Resp B/P (MAP) Pulse Ox O2 O2 Flow FiO2 Time Delivery Rate 11/03/18 85 08:31 11/03/18 98.2 24 101/61 100 Mechanical 08:00 (74) Ventilator 11/03/18 70 07:52 Intake and Output 11/02/18 11/02/18 11/03/18 1515:00 23:00 07:00 IntakeIntake Total 60 ml 1550 ml OutputOutput Total 1000 ml 800 ml BalanceBalance -940 ml 750 ml Exam H EENT exam; supple neck, no JVD. No lymphadenopathy. Midline trachea. No thyromegaly. Patient is edentulous. Tracheostomy in place. Chest exam; diminished breath sounds bilaterally. S1-S2 audible, no murmurs. Regular rhythm. Abdomen exam; soft, no organomegaly. G-tube in place. Nondistended. Bowel sounds audible. Extremity exam; no peripheral edema. Patient has flexion contractures. FLOW NURSE exam; patient remains noncommunicative. Results Result Diagram: 11/03/18 0525 11/03/18 0525 Results 24hrs Laboratory Tests Test 11/03/18 05:25 White Blood Count 4.7 L Red Blood Count 3.58 #L Hemoglobin 8.2 #L Hematocrit 27.5 #L Mean Corpuscular Volume 76.8 L Mean Corpuscular Hemoglobin 22.9 L Mean Corpuscular Hemoglobin Concent 29.8 L Red Cell Distribution Width 17.2 H Platelet Count 92 #L Mean Platelet Volume Immature Granulocytes % 1.100 H Neutrophils % Segmented Neutrophils % (Manual) 72 Band Neutrophils % (Manual) 14 H Lymphocytes % Lymphocytes % (Manual) 10 L Monocytes % Monocytes % (Manual) 4 Eosinophils % Basophils % Nucleated Red Blood Cells % 0.0 Immature Granulocytes # 0.050 H Neutrophils # Neutrophils # (Manual) 3.4 Band Neutrophils # 0.6 Lymphocytes (Manual) 0.4 L Lymphocytes # Monocytes # Monocytes # (Manual) 0.1 L Eosinophils # Basophils # Nucleated Red Blood Cells # Platelet Estimate NORMAL Giant Platelets 10 H Hypochromasia 1+ Sodium Level 153 H Potassium Level 3.5 Chloride Level 125 H Carbon Dioxide Level 20 L Anion Gap 8 Blood Urea Nitrogen 25 H Creatinine 0.79 Est Glomerular Filtrat Rate mL/min > 60 Glucose Level 115 Calcium Level 8.6 Total Bilirubin 0.5 Direct Bilirubin 0.00 Indirect Bilirubin 0.5 Aspartate Amino Transf (AST/SGOT) 57 H Alanine Aminotransferase (ALT/SGPT) 40 Alkaline Phosphatase 36 L Total Protein 6.3 Albumin 3.1 L Globulin 3.20 Albumin/Globulin Ratio 0.96 Lipase 112 Medications Medication Current Medications Acetaminophen (Tylenol Tab) 650 mg BID PRN GTB PAIN MANAGEMENT; Start 10/30/18 at 22:00 Acetaminophen (Tylenol Tab) 650 mg Q6 PRN GTB PAIN; Start 10/30/18 at 22:00 Albuterol (Proventil 0.083% (Neb)) 2.5 mg Q3H RESP THERAPY PRN NEB WHEEZING AND SOB; Start 10/30/18 at 22:00 Albuterol (Proventil 0.083% (Neb)) 2.5 mg Q6H RESP THERAPY PRN NEB WHEEZING AND SOB; Start 10/30/18 at 22:00 Ascorbic Acid (Vitamin C) 500 mg DAILY GTB Last administered on 11/03/18 09:33; Admin Dose 500 MG; Start 10/31/18 at 09:00 Metoclopramide HCl (Reglan) 10 mg Q6H PRN GTB NAUSEA AND/OR VOMITING; Start 10/30/18 at 22:00 Multivitamins (Multivitamin) 30 ml DAILY GTB Last administered on 11/03/18 09:33; Admin Dose 30 ML; Start 10/31/18 at 09:00 Pantoprazole (Protonix Tab) 40 mg DAILY@0600 PO Last administered on 11/03/18 05:41; Admin Dose 40 MG; Start 10/31/18 at 06:00 Ferrous Sulfate (Feosol Liquid Cup) 300 mg BID PO Last administered on 11/03/18 09:33; Admin Dose 300 MG; Start 10/30/18 at 22:00 Levetiracetam (Keppra Liquid) 1,500 mg BID GTB Last administered on 11/03/18 09:33; Admin Dose 1,500 MG; Start 10/30/18 at 22:30 Potassium Chloride (Potassium Chloride Pwd/Soln) 20 meq DAILY GTB Last administered on 11/03/18 09:33; Admin Dose 20 MEQ; Start 10/31/18 at 09:00 Acetaminophen (Tylenol Liquid) 650 mg Q4H PRN GTB MILD PAIN(1-3)OR ELEVATED TEMP Last administered on 11/02/18 20:08; Admin Dose 650 MG; Start 10/31/18 at 00:00 Vancomycin HCl (Vanco Iv Per Pharmacy) VANCOMYCIN PER PHARMACY PER PROTOCOL XX ; Start 10/31/18 at 07:00 Cefepime HCl 50 ml @ 100 mls/hr Q8 IVPB Last administered on 11/03/18 05:41; Admin Dose 100 MLS/HR; Start 10/31/18 at 16:00 Nystatin (Nystatin Oint) 1 applic BID TOP Last administered on 5/28/19at 20:11; Admin Dose 1 APPLIC; Start 10/31/18 at 21:00 Aspirin (Aspirin) 81 mg DAILY PO Last administered on 11/03/18 09:33; Admin Dose 81 MG; Start 11/01/18 at 09:00 Vancomycin/Sodium Chloride 250 ml @ 125 mls/hr Q12H IVPB Last administered on 11/03/18at 00:40; Admin Dose 125 MLS/HR; Start 11/02/18 at 00:00 Metoprolol Tartrate (Lopressor) 25 mg BID GTB Last administered on 11/02/18at 20:11; Admin Dose 25 MG; Start 11/01/18 at 21:00 Tramadol HCl (Ultram) 50 mg Q4 PRN PO MODERATE PAIN LEVEL 4-6 Last administered on 11/02/18at 20:11; Admin Dose 50 MG; Start 11/01/18 at 21:00 Metoprolol Tartrate (Lopressor) 5 mg Q4 PRN IV ELEVATED HEART RATE; Start 11/01/18 at 21:00 Docusate Sodium (Colace Liquid Cup) 100 mg BID GTB Last administered on 11/03/18at 09:33; Admin Dose 100 MG; Start 11/02/18 at 09:00 Potassium Chloride/Dextrose/ Sod Cl 1,000 ml @ 100 mls/hr Q10H IV Last administered on 11/02/18at 17:24; Admin Dose 100 MLS/HR; Start 11/02/18 at 17:30 Collagenase (Santyl) 1 applic DAILY TOP ; Start 11/03/18 at 09:00 Midodrine (Proamatine) 5 mg TID@,,17 GTB Last administered on 11/03/18at 02:24; Admin Dose 5 MG; Start 11/03/18 at 02:30 MI JEFFERS November 03, 2018 10:10
[2018-11-03] MEDS: NYSTATIN 15 GM OINT TOP SCH ×2 (11:28→21:40)
[2018-11-03] MEDS: BALSAM PERU/CASTOR OIL 60 GM TUBE TOP SCH (11:28)
--- NOTE | 2018-11-03 13:57 | CONS ---
Assessment/Plan Assessment/Plan Hospital Course (Demo Recall) Patient is noncommunicative in no distress afebrile. Microbiology: Blood culture on admission grew coag negative staph species, urine culture grew Proteus mirabilis susceptible to cefotaxime tobramycin and gent influenza swab negative, MRSA negative CT of the chest on admission revealed right lower lobe dense wench shaped consolidation with moderate bilateral peribronchial nodular opacities consistent with multifocal pneumonia. Hydronephrosis of the right kidney of mild severity secondary to partial visualization of a 10 mm stone in the right proximal ureter with wall thickening and inflammation of the right renal pelvic wall and proximal ureteral wall. Please see full report in the chart Antimicrobials: Vancomycin, cefepime Physical examination: Chronically ill-appearing vegetative middle-aged man who is in no distress. Head atraumatic normocephalic neck is supple tracheostomy present chest rise symmetrical breath sounds diminished bases. Heart: S1-S2. Abdomen soft bowel sounds hypoactive. Extremities wasted contractured Assessment: 1. Severe sepsis, present on admission 2. Coag negative staph bacteremia, possibly line sepsis as patient had PICC line on admission that was discontinued 3. Multifocal healthcare associated pneumonia 4. Urinary tract infection with obstructive uropathy 5. Vegetative 6. Elevated lipase on admission==> no evidence for pancreatitis per CT 7. DNR Plan: Clinically unchanged, pending repeat blood cultures, continue antibiotics, pending urology evaluation Consultation Date/Type/Reason Admit Date/Time October 30, 2018 at 08:15 Initial Consult Date Type of Consult id Requesting Provider: RICHARD GIRARD MD Date/Time of Note DATE: 11/03/18 TIME: 13:57 Exam/Review of Systems Exam Vitals Vital Signs Date Temp Pulse Resp B/P (MAP) Pulse Ox O2 O2 Flow FiO2 Time Delivery Rate 11/03/18 90 12:15 11/03/18 98.2 24 101/61 100 Mechanical 08:00 (74) Ventilator 11/03/18 70 07:52 Intake and Output 11/02/18 11/02/18 11/03/18 1515:00 23:00 07:00 IntakeIntake Total 60 ml 1550 ml OutputOutput Total 1000 ml 800 ml BalanceBalance -940 ml 750 ml Results Result Diagram: 11/03/18 0525 11/03/18 0525 Results 24hrs Laboratory Tests Test 11/03/18 05:25 11/03/18 10:06 White Blood Count 4.7 L Red Blood Count 3.58 #L Hemoglobin 8.2 #L Hematocrit 27.5 #L Mean Corpuscular Volume 76.8 L Mean Corpuscular Hemoglobin 22.9 L Mean Corpuscular Hemoglobin Concent 29.8 L Red Cell Distribution Width 17.2 H Platelet Count 92 #L Mean Platelet Volume Immature Granulocytes % 1.100 H Neutrophils % Segmented Neutrophils % (Manual) 72 Band Neutrophils % (Manual) 14 H Lymphocytes % Lymphocytes % (Manual) 10 L Monocytes % Monocytes % (Manual) 4 Eosinophils % Basophils % Nucleated Red Blood Cells % 0.0 Immature Granulocytes # 0.050 H Neutrophils # Neutrophils # (Manual) 3.4 Band Neutrophils # 0.6 Lymphocytes (Manual) 0.4 L Lymphocytes # Monocytes # Monocytes # (Manual) 0.1 L Eosinophils # Basophils # Nucleated Red Blood Cells # Platelet Estimate NORMAL Giant Platelets 10 H Hypochromasia 1+ Sodium Level 153 H Potassium Level 3.5 Chloride Level 125 H Carbon Dioxide Level 20 L Anion Gap 8 Blood Urea Nitrogen 25 H Creatinine 0.79 Est Glomerular Filtrat Rate mL/min > 60 Glucose Level 115 Calcium Level 8.6 Total Bilirubin 0.5 Direct Bilirubin 0.00 Indirect Bilirubin 0.5 Aspartate Amino Transf (AST/SGOT) 57 H Alanine Aminotransferase (ALT/SGPT) 40 Alkaline Phosphatase 36 L Total Protein 6.3 Albumin 3.1 L Globulin 3.20 Albumin/Globulin Ratio 0.96 Lipase 112 Blood Gas Specimen Source Blood arterial Arterial Blood Date Drawn 11/03/2018 10:31:20 AM Arterial Blood pH (Temp corrected) 7.421 Arterial Blood pCO2 (Temp correct) 30.8 L Arterial Blood pO2 (Temp corrected) 170.1 H Arterial Blood HCO3 19.6 L Arterial Blood Base Excess -4.3 L Arterial Blood Oxygen Saturation 98.8 H Zechariah Test ACCEPTAB Arterial Blood Gas Puncture Site Right Radial Arterial Blood Carboxyhemoglobin 0.3 Arterial Blood Methemoglobin 0.3 Blood Gas A-a O2 Differential 295.9 H Oxyhemoglobin Percent 98.2 Blood Gas Temperature 37.0 Blood Gas Respiration Rate 14.0 Blood Gas Actual Respiration Rate 20 Blood Gas Modality VENT - AC FiO2 70.0 Blood Gas Tidal Volume 500.0 Blood Gas Low PEEP Setting 5.0 Blood Gas Notified Whom TM Blood Gas Notified Time 11/03/2018 10:51:58 AM Medications Medication Current Medications Acetaminophen (Tylenol Tab) 650 mg BID PRN GTB PAIN MANAGEMENT; Start 10/30/18 at 22:00 Acetaminophen (Tylenol Tab) 650 mg Q6 PRN GTB PAIN; Start 10/30/18 at 22:00 Albuterol (Proventil 0.083% (Neb)) 2.5 mg Q3H RESP THERAPY PRN NEB WHEEZING AND SOB; Start 10/30/18 at 22:00 Albuterol (Proventil 0.083% (Neb)) 2.5 mg Q6H RESP THERAPY PRN NEB WHEEZING AND SOB; Start 10/30/18 at 22:00 Ascorbic Acid (Vitamin C) 500 mg DAILY GTB Last administered on 11/03/18 09:33; Admin Dose 500 MG; Start 10/31/18 at 09:00 Metoclopramide HCl (Reglan) 10 mg Q6H PRN GTB NAUSEA AND/OR VOMITING; Start 10/30/18 at 22:00 Multivitamins (Multivitamin) 30 ml DAILY GTB Last administered on 11/03/18 09:33; Admin Dose 30 ML; Start 10/31/18 at 09:00 Pantoprazole (Protonix Tab) 40 mg DAILY@0600 PO Last administered on 11/03/18 05:41; Admin Dose 40 MG; Start 10/31/18 at 06:00 Ferrous Sulfate (Feosol Liquid Cup) 300 mg BID PO Last administered on 11/03/18 09:33; Admin Dose 300 MG; Start 10/30/18 at 22:00 Levetiracetam (Keppra Liquid) 1,500 mg BID GTB Last administered on 11/03/18 09:33; Admin Dose 1,500 MG; Start 10/30/18 at 22:30 Potassium Chloride (Potassium Chloride Pwd/Soln) 20 meq DAILY GTB Last administ ered on 11/03/18 09:33; Admin Dose 20 MEQ; Start 10/31/18 at 09:00 Acetaminophen (Tylenol Liquid) 650 mg Q4H PRN GTB MILD PAIN(1-3)OR ELEVATED TEMP Last administered on 11/02/18 20:08; Admin Dose 650 MG; Start 10/31/18 at 00:00 Vancomycin HCl (Vanco Iv Per Pharmacy) VANCOMYCIN PER PHARMACY PER PROTOCOL XX ; Start 10/31/18 at 07:00 Cefepime HCl 50 ml @ 100 mls/hr Q8 IVPB Last administered on 11/03/18 05:41; Admin Dose 100 MLS/HR; Start 10/31/18 at 16:00 Nystatin (Nystatin Oint) 1 applic BID TOP Last administered on 11/03/18 11:28; Admin Dose 1 APPLIC; Start 10/31/18 at 21:00 Aspirin (Aspirin) 81 mg DAILY PO Last administered on 11/03/18 09:33; Admin Dose 81 MG; Start 11/01/18 at 09:00 Vancomycin/Sodium Chloride 250 ml @ 125 mls/hr Q12H IVPB Last administered on 11/03/18 12:32; Admin Dose 125 MLS/HR; Start 11/02/18 at 00:00 Metoprolol Tartrate (Lopressor) 25 mg BID GTB Last administered on 11/02/18 20:11; Admin Dose 25 MG; Start 11/01/18 at 21:00 Tramadol HCl (Ultram) 50 mg Q4 PRN PO MODERATE PAIN LEVEL 4-6 Last administered on 11/02/18 20:11; Admin Dose 50 MG; Start 11/01/18 at 21:00 Metoprolol Tartrate (Lopressor) 5 mg Q4 PRN IV ELEVATED HEART RATE; Start 11/01/18 at 21:00 Docusate Sodium (Colace Liquid Cup) 100 mg BID GTB Last administered on 11/03/18 09:33; Admin Dose 100 MG; Start 11/02/18 at 09:00 Potassium Chloride/Dextrose/ Sod Cl 1,000 ml @ 100 mls/hr Q10H IV Last administered on 11/03/18 11:27; Admin Dose 100 MLS/HR; Start 11/02/18 at 17:30 Collagenase (Santyl) 1 applic DAILY TOP ; Start 11/03/18 at 09:00 Midodrine (Proamatine) 5 mg TID@09,13,17 GTB Last administered on 11/03/18 02:24; Admin Dose 5 MG; Start 11/03/18 at 02:30 YURY OYON NP November 03, 2018 13:57
--- NOTE | 2018-11-03 15:34 | PN ---
Date/Time of Note Date/Time of Note DATE: 11/03/18 TIME: 15:28 Assessment/Plan VTE Prophylaxis Risk score (from [facility] [place])>0 risk: 5 SCD applied (from [facility] [place]): Yes Pharmacological prophylaxis: NA/contraindicated Pharm contraindication: thrombocytopenia Lines/Catheters IV Catheter Type (from [facility]): Peripheral IV Urinary Cath still in place: Yes Reason Cath still needed: urinary retention Assessment/Plan Hospital Course Patient had episode of hypotension last night was giving IV fluid bolus as well as albumin currently her blood pressure is stable, patient continues on IV fluids. Lipase is within normal limits, will start G-tube feeding its okay with our gastroenterology colleagues, continue water flushes via G-tube. Assessment/Plan -Urinary retention. Dr. Regan is asked to see patient in urology consultation. -Hypernatremia, continue free water flushes where G-tube. -Sepsis with gram-positive cocci bacteremia MDR Proteus UTI. Continue antibiotics per ID. Dr. Matias is following in infection disease consultation. -Non-ST elevation myocardial infarction, continue aspirin, beta-samantha. Lo venox is held due to thrombocytopenia. Dr. Flor is following in cardiology consultation. -Pancreatitis, resolving. Dr. Walton is following in gastroenterology consultation. -Ventilator dependent respiratory failure with tracheostomy. -Anoxic encephalopathy status post cardiac arrest in 2009 -Ventilator dependent respiratory failure -Dysphagia with PEG -Seizure disorder, continue Keppra. -Schizophrenia -Multiple wounds, continue current wound care, offloading. Further recommendations based on clinical course. Plan of care discussed with Dr. Courtney. Result Diagram: 11/03/18 0525 11/03/18 0525 Results 24hrs Laboratory Tests Test 11/03/18 05:25 11/03/18 10:06 White Blood Count 4.7 L Red Blood Count 3.58 #L Hemoglobin 8.2 #L Hematocrit 27.5 #L Mean Corpuscular Volume 76.8 L Mean Corpuscular Hemoglobin 22.9 L Mean Corpuscular Hemoglobin Concent 29.8 L Red Cell Distribution Width 17.2 H Platelet Count 92 #L Mean Platelet Volume Immature Granulocytes % 1.100 H Neutrophils % Segmented Neutrophils % (Manual) 72 Band Neutrophils % (Manual) 14 H Lymphocytes % Lymphocytes % (Manual) 10 L Monocytes % Monocytes % (Manual) 4 Eosinophils % Basophils % Nucleated Red Blood Cells % 0.0 Immature Granulocytes # 0.050 H Neutrophils # Neutrophils # (Manual) 3.4 Band Neutrophils # 0.6 Lymphocytes (Manual) 0.4 L Lymphocytes # Monocytes # Monocytes # (Manual) 0.1 L Eosinophils # Basophils # Nucleated Red Blood Cells # Platelet Estimate NORMAL Giant Platelets 10 H Hypochromasia 1+ Sodium Level 153 H Potassium Level 3.5 Chloride Level 125 H Carbon Dioxide Level 20 L Anion Gap 8 Blood Urea Nitrogen 25 H Creatinine 0.79 Est Glomerular Filtrat Rate mL/min > 60 Glucose Level 115 Calcium Level 8.6 Total Bilirubin 0.5 Direct Bilirubin 0.00 Indirect Bilirubin 0.5 Aspartate Amino Transf (AST/SGOT) 57 H Alanine Aminotransferase (ALT/SGPT) 40 Alkaline Phosphatase 36 L Total Protein 6.3 Albumin 3.1 L Globulin 3.20 Albumin/Globulin Ratio 0.96 Lipase 112 Blood Gas Specimen Source Blood arterial Arterial Blood Date Drawn 11/03/2018 10:31:20 AM Arterial Blood pH (Temp corrected) 7.421 Arterial Blood pCO2 (Temp correct) 30.8 L Arterial Blood pO2 (Temp corrected) 170.1 H Arterial Blood HCO3 19.6 L Arterial Blood Base Excess -4.3 L Arterial Blood Oxygen Saturation 98.8 H Zechariah Test ACCEPTAB Arterial Blood Gas Puncture Site Right Radial Arterial Blood Carboxyhemoglobin 0.3 Arterial Blood Methemoglobin 0.3 Blood Gas A-a O2 Differential 295.9 H Oxyhemoglobin Percent 98.2 Blood Gas Temperature 37.0 Blood Gas Respiration Rate 14.0 Blood Gas Actual Respiration Rate 20 Blood Gas Modality VENT - AC FiO2 70.0 Blood Gas Tidal Volume 500.0 Blood Gas Low PEEP Setting 5.0 Blood Gas Notified Whom TM Blood Gas Notified Time 11/03/2018 10:51:58 AM Exam/Review of Systems Exam Vitals Vital Signs Date Temp Pulse Resp B/P (MAP) Pulse Ox O2 O2 Flow FiO2 Time Delivery Rate 11/03/18 90 12:15 11/03/18 98.2 24 101/61 100 Mechanical 08:00 (74) Ventilator 11/03/18 70 07:52 Intake and Output 11/02/18 11/02/18 11/03/18 1515:00 23:00 07:00 IntakeIntake Total 60 ml 1550 ml OutputOutput Total 1000 ml 800 ml BalanceBalance -940 ml 750 ml Exam Constitutional: frail Neck: supple, other (Tracheostomy) Respiratory: diminished breath sounds Cardiovascular: regular rate and rhythm, other Gastrointestinal: soft, tender Musculoskeletal: other Extremities: other (Contracted extremities) Neurological: other (Noncommunicative) Skin: other (Multiple wounds) Results Results 24hrs Laboratory Tests Test 11/03/18 05:25 11/03/18 10:06 White Blood Count 4.7 L Red Blood Count 3.58 #L Hemoglobin 8.2 #L Hematocrit 27.5 #L Mean Corpuscular Volume 76.8 L Mean Corpuscular Hemoglobin 22.9 L Mean Corpuscular Hemoglobin Concent 29.8 L Red Cell Distribution Width 17.2 H Platelet Count 92 #L Mean Platelet Volume Immature Granulocytes % 1.100 H Neutrophils % Segmented Neutrophils % (Manual) 72 Band Neutrophils % (Manual) 14 H Lymphocytes % Lymphocytes % (Manual) 10 L Monocytes % Monocytes % (Manual) 4 Eosinophils % Basophils % Nucleated Red Blood Cells % 0.0 Immature Granulocytes # 0.050 H Neutrophils # Neutrophils # (Manual) 3.4 Band Neutrophils # 0.6 Lymphocytes (Manual) 0.4 L Lymphocytes # Monocytes # Monocytes # (Manual) 0.1 L Eosinophils # Basophils # Nucleated Red Blood Cells # Platelet Estimate NORMAL Giant Platelets 10 H Hypochromasia 1+ Sodium Level 153 H Potassium Level 3.5 Chloride Level 125 H Carbon Dioxide Level 20 L Anion Gap 8 Blood Urea Nitrogen 25 H Creatinine 0.79 Est Glomerular Filtrat Rate mL/min > 60 Glucose Level 115 Calcium Level 8.6 Total Bilirubin 0.5 Direct Bilirubin 0.00 Indirect Bilirubin 0.5 Aspartate Amino Transf (AST/SGOT) 57 H Alanine Aminotransferase (ALT/SGPT) 40 Alkaline Phosphatase 36 L Total Protein 6.3 Albumin 3.1 L Globulin 3.20 Albumin/Globulin Ratio 0.96 Lipase 112 Blood Gas Specimen Source Blood arterial Arterial Blood Date Drawn 11/03/2018 10:31:20 AM Arterial Blood pH (Temp corrected) 7.421 Arterial Blood pCO2 (Temp correct) 30.8 L Arterial Blood pO2 (Temp corrected) 170.1 H Arterial Blood HCO3 19.6 L Arterial Blood Base Excess -4.3 L Arterial Blood Oxygen Saturation 98.8 H Zechariah Test ACCEPTAB Arterial Blood Gas Puncture Site Right Radial Arterial Blood Carboxyhemoglobin 0.3 Arterial Blood Methemoglobin 0.3 Blood Gas A-a O2 Differential 295.9 H Oxyhemoglobin Percent 98.2 Blood Gas Temperature 37.0 Blood Gas Respiration Rate 14.0 Blood Gas Actual Respiration Rate 20 Blood Gas Modality VENT - AC FiO2 70.0 Blood Gas Tidal Volume 500.0 Blood Gas Low PEEP Setting 5.0 Blood Gas Notified Whom TM Blood Gas Notified Time 11/03/2018 10:51:58 AM Medications Medication Current Medications Acetaminophen (Tylenol Tab) 650 mg BID PRN GTB PAIN MANAGEMENT; Start 10/30/18 at 22:00 Acetaminophen (Tylenol Tab) 650 mg Q6 PRN GTB PAIN; Start 10/30/18 at 22:00 Albuterol (Proventil 0.083% (Neb)) 2.5 mg Q3H RESP THERAPY PRN NEB WHEEZING AND SOB; Start 10/30/18 at 22:00 Albuterol (Proventil 0.083% (Neb)) 2.5 mg Q6H RESP THERAPY PRN NEB WHEEZING AND SOB; Start 10/30/18 at 22:00 Ascorbic Acid (Vitamin C) 500 mg DAILY GTB Last administered on 11/03/18 09:33; Admin Dose 500 MG; Start 10/31/18 at 09:00 Metoclopramide HCl (Reglan) 10 mg Q6H PRN GTB NAUSEA AND/OR VOMITING; Start 10/30/18 at 22:00 Multivitamins (Multivitamin) 30 ml DAILY GTB Last administered on 11/03/18 09:33; Admin Dose 30 ML; Start 10/31/18 at 09:00 Pantoprazole (Protonix Tab) 40 mg DAILY@0600 PO Last administered on 11/03/18 05:41; Admin Dose 40 MG; Start 10/31/18 at 06:00 Ferrous Sulfate (Feosol Liquid Cup) 300 mg BID PO Last administered on 11/03/18 09:33; Admin Dose 300 MG; Start 10/30/18 at 22:00 Levetiracetam (Keppra Liquid) 1,500 mg BID GTB Last administered on 11/03/18 09:33; Admin Dose 1,500 MG; Start 10/30/18 at 22:30 Potassium Chloride (Potassium Chloride Pwd/Soln) 20 meq DAILY GTB Last administered on 11/03/18 09:33; Admin Dose 20 MEQ; Start 10/31/18 at 09:00 Acetaminophen (Tylenol Liquid) 650 mg Q4H PRN GTB MILD PAIN(1-3)OR ELEVATED TEMP Last administered on 11/02/18 20:08; Admin Dose 650 MG; Start 10/31/18 at 00:00 Vancomycin HCl (Vanco Iv Per Pharmacy) VANCOMYCIN PER PHARMACY PER PROTOCOL XX ; Start 10/31/18 at 07:00 Cefepime HCl 50 ml @ 100 mls/hr Q8 IVPB Last administered on 11/03/18 14:52; Admin Dose 100 MLS/HR; Start 10/31/18 at 16:00 Nystatin (Nystatin Oint) 1 applic BID TOP Last administered on 11/03/18 11:28; Admin Dose 1 APPLIC; Start 10/31/18 at 21:00 Aspirin (Aspirin) 81 mg DAILY PO Last administered on 11/03/18 09:33; Admin Dose 81 MG; Start 11/01/18 at 09:00 Vancomycin/Sodium Chloride 250 ml @ 125 mls/hr Q12H IVPB Last administered on 11/03/18 12:32; Admin Dose 125 MLS/HR; Start 11/02/18 at 00:00 Metoprolol Tartrate (Lopressor) 25 mg BID GTB Last administered on 11/02/18 20:11; Admin Dose 25 MG; Start 11/01/18 at 21:00 Tramadol HCl (Ultram) 50 mg Q4 PRN PO MODERATE PAIN LEVEL 4-6 Last administered on 11/02/18 20:11; Admin Dose 50 MG; Start 11/01/18 at 21:00 Metoprolol Tartrate (Lopressor) 5 mg Q4 PRN IV ELEVATED HEART RATE; Start 11/01/18 at 21:00 Docusate Sodium (Colace Liquid Cup) 100 mg BID GTB Last administered on 11/03/18 at 09:33; Admin Dose 100 MG; Start 11/02/18 at 09:00 Potassium Chloride/Dextrose/ Sod Cl 1,000 ml @ 100 mls/hr Q10H IV Last administered on 11/03/18 11:27; Admin Dose 100 MLS/HR; Start 11/02/18 at 17:30 Collagenase (Santyl) 1 applic DAILY TOP ; Start 11/03/18 at 09:00 Midodrine (Proamatine) 5 mg TID@09,13,17 GTB Last administered on 11/03/18at 02:24; Admin Dose 5 MG; Start 11/03/18 at 02:30 JH WISDOM November 03, 2018 15:34
[2018-11-03] MEDS: traMADol 50 MG TAB PO PRN (16:48)
[2018-11-03] MEDS: COLLAGENASE 5 GM (UD JAR) TOP SCH (16:50)
--- NOTE | 2018-11-03 17:49 | CONS ---
Assessment/Plan Assessment/Plan Hospital Course (Demo Recall) IMPRESSION: 1. Non-ST elevation myocardial infarction with up trending cardiac enzymes likely demand infarct in the setting of significant tachycardia and fevers, sepsis.-downtrending significantly 2. Abnormal electrocardiogram with nonspecific ST-T abnormalities. 3. Tachycardia, likely due to the patient's underlying sepsis-improved overall 4. Sepsis with the Gram-positive cocci group in clusters growing in blood and Gram-negative rods growing in urine. 5. Urinary tract infection. 6. Chronic respiratory failure, status post tracheostomy. 7. s/p G-tube. 8. Chronic anoxic encephalopathy. 9. Leukocytosis significantly improved. 10. Anemia-worsening 11. Hypernatremia-ongoing Recc: -Tele -Contineu asa -Contineu low dose BB -trend enzymes -lovenox held due to worsening anemia Consultation Date/Type/Reason Admit Date/Time October 30, 2018 at 08:15 Initial Consult Date 10/31/18 Type of Consult Cardiology Reason for Consultation Nstemi Requesting Provider: RICHARD GIRARD MD Date/Time of Note DATE: 11/03/18 TIME: 17:45 Exam/Review of Systems Vital Signs Vitals Vital Signs Date Temp Pulse Resp B/P (MAP) Pulse Ox O2 O2 Flow FiO2 Time Delivery Rate 11/03/18 89 16:19 11/03/18 97.8 29 113/64 100 Mechanical 16:02 (80) Ventilator 11/03/18 70 07:52 Intake and Output 11/02/18 11/02/18 11/03/18 1515:00 23:00 07:00 IntakeIntake Total 60 ml 1550 ml OutputOutput Total 1000 ml 800 ml BalanceBalance -940 ml 750 ml Exam Exam Review of Systems: CONSTITUTIONAL: No fevers, chills. PULMONARY: trached CARDIOVASCULAR: No chest pain/palpitations GASTROINTESTINAL: No nausea/vomiting. GENITOURINARY: No hematuria/dysuria. MUSCULOSKELETAL: No myagias/arthalgias. PSYCHIATRIC: The patient denies depression. NEUROLOGIC: No weakness Constitutional: other (encephaloipathic) Psych: no complaints Head: normocephalic ENMT: mucosa pink and moist Neck: supple, jvd (9 cm water) Respiratory: diminished breath sounds (at bases/B) Cardiovascular: regular rate and rhythm Gastrointestinal: soft, non-tender Musculoskeletal: muscle tone (normal) Extremities: edema (none) Neurological: other (No focal deficits) Labs Result Diagram: 11/03/18 0525 11/03/18 0525 Results 24hrs Laboratory Tests Test 11/03/18 05:25 11/03/18 10:06 White Blood Count 4.7 L Red Blood Count 3.58 #L Hemoglobin 8.2 #L Hematocrit 27.5 #L Mean Corpuscular Volume 76.8 L Mean Corpuscular Hemoglobin 22.9 L Mean Corpuscular Hemoglobin Concent 29.8 L Red Cell Distribution Width 17.2 H Platelet Count 92 #L Mean Platelet Volume Immature Granulocytes % 1.100 H Neutrophils % Segmented Neutrophils % (Manual) 72 Band Neutrophils % (Manual) 14 H Lymphocytes % Lymphocytes % (Manual) 10 L Monocytes % Monocytes % (Manual) 4 Eosinophils % Basophils % Nucleated Red Blood Cells % 0.0 Immature Granulocytes # 0.050 H Neutrophils # Neutrophils # (Manual) 3.4 Band Neutrophils # 0.6 Lymphocytes (Manual) 0.4 L Lymphocytes # Monocytes # Monocytes # (Manual) 0.1 L Eosinophils # Basophils # Nucleated Red Blood Cells # Platelet Estimate NORMAL Giant Platelets 10 H Hypochromasia 1+ Sodium Level 153 H Potassium Level 3.5 Chloride Level 125 H Carbon Dioxide Level 20 L Anion Gap 8 Blood Urea Nitrogen 25 H Creatinine 0.79 Est Glomerular Filtrat Rate mL/min > 60 Glucose Level 115 Calcium Level 8.6 Total Bilirubin 0.5 Direct Bilirubin 0.00 Indirect Bilirubin 0.5 Aspartate Amino Transf (AST/SGOT) 57 H Alanine Aminotransferase (ALT/SGPT) 40 Alkaline Phosphatase 36 L Total Protein 6.3 Albumin 3.1 L Globulin 3.20 Albumin/Globulin Ratio 0.96 Lipase 112 Blood Gas Specimen Source Blood arterial Arterial Blood Date Drawn 11/03/2018 10:31:20 AM Arterial Blood pH (Temp corrected) 7.421 Arterial Blood pCO2 (Temp correct) 30.8 L Arterial Blood pO2 (Temp corrected) 170.1 H Arterial Blood HCO3 19.6 L Arterial Blood Base Excess -4.3 L Arterial Blood Oxygen Saturation 98.8 H Zechariah Test ACCEPTAB Arterial Blood Gas Puncture Site Right Radial Arterial Blood Carboxyhemoglobin 0.3 Arterial Blood Methemoglobin 0.3 Blood Gas A-a O2 Differential 295.9 H Oxyhemoglobin Percent 98.2 Blood Gas Temperature 37.0 Blood Gas Respiration Rate 14.0 Blood Gas Actual Respiration Rate 20 Blood Gas Modality VENT - AC FiO2 70.0 Blood Gas Tidal Volume 500.0 Blood Gas Low PEEP Setting 5.0 Blood Gas Notified Whom TM Blood Gas Notified Time 11/03/2018 10:51:58 AM Medications Medications Current Medications Acetaminophen (Tylenol Tab) 650 mg BID PRN GTB PAIN MANAGEMENT; Start 10/30/18 at 22:00 Acetaminophen (Tylenol Tab) 650 mg Q6 PRN GTB PAIN; Start 10/30/18 at 22:00 Albuterol (Proventil 0.083% (Neb)) 2.5 mg Q3H RESP THERAPY PRN NEB WHEEZING AND SOB; Start 10/30/18 at 22:00 Albuterol (Proventil 0.083% (Neb)) 2.5 mg Q6H RESP THERAPY PRN NEB WHEEZING AND SOB; Start 10/30/18 at 22:00 Ascorbic Acid (Vitamin C) 500 mg DAILY GTB Last administered on 11/03/18 09:33; Admin Dose 500 MG; Start 10/31/18 at 09:00 Metoclopramide HCl (Reglan) 10 mg Q6H PRN GTB NAUSEA AND/OR VOMITING; Start 10/30/18 at 22:00 Multivitamins (Multivitamin) 30 ml DAILY GTB Last administered on 11/03/18 09:33; Admin Dose 30 ML; Start 10/31/18 at 09:00 Pantoprazole (Protonix Tab) 40 mg DAILY@0600 PO Last administered on 11/03/18 05:41; Admin Dose 40 MG; Start 10/31/18 at 06:00 Ferrous Sulfate (Feosol Liquid Cup) 300 mg BID PO Last administered on 11/03/18 09:33; Admin Dose 300 MG; Start 10/30/18 at 22:00 Levetiracetam (Keppra Liquid) 1,500 mg BID GTB Last administered on 11/03/18 09:33; Admin Dose 1,500 MG; Start 10/30/18 at 22:30 Potassium Chloride (Potassium Chloride Pwd/Soln) 20 meq DAILY GTB Last admin istered on 11/03/18 09:33; Admin Dose 20 MEQ; Start 10/31/18 at 09:00 Acetaminophen (Tylenol Liquid) 650 mg Q4H PRN GTB MILD PAIN(1-3)OR ELEVATED TEMP Last administered on 11/02/18 20:08; Admin Dose 650 MG; Start 10/31/18 at 00:00 Vancomycin HCl (Vanco Iv Per Pharmacy) VANCOMYCIN PER PHARMACY PER PROTOCOL XX ; Start 10/31/18 at 07:00 Cefepime HCl 50 ml @ 100 mls/hr Q8 IVPB Last administered on 11/03/18 14:52; Admin Dose 100 MLS/HR; Start 10/31/18 at 16:00 Nystatin (Nystatin Oint) 1 applic BID TOP Last administered on 11/03/18 11:28; Admin Dose 1 APPLIC; Start 10/31/18 at 21:00 Aspirin (Aspirin) 81 mg DAILY PO Last administered on 11/03/18 09:33; Admin Dose 81 MG; Start 11/01/18 at 09:00 Vancomycin/Sodium Chloride 250 ml @ 125 mls/hr Q12H IVPB Last administered on 11/03/18 12:32; Admin Dose 125 MLS/HR; Start 11/02/18 at 00:00 Metoprolol Tartrate (Lopressor) 25 mg BID GTB Last administered on 11/02/18 20:11; Admin Dose 25 MG; Start 11/01/18 at 21:00 Tramadol HCl (Ultram) 50 mg Q4 PRN PO MODERATE PAIN LEVEL 4-6 Last administered on 11/03/18 16:48; Admin Dose 50 MG; Start 11/01/18 at 21:00 Metoprolol Tartrate (Lopressor) 5 mg Q4 PRN IV ELEVATED HEART RATE; Start 11/01 at 21:00 Docusate Sodium (Colace Liquid Cup) 100 mg BID GTB Last administered on 11/03/18 09:33; Admin Dose 100 MG; Start 11/02/18 at 09:00 Potassium Chloride/Dextrose/ Sod Cl 1,000 ml @ 100 mls/hr Q10H IV Last administered on 11/03/18 11:27; Admin Dose 100 MLS/HR; Start 11/02/18 at 17:30 Collagenase (Santyl) 1 applic DAILY TOP Last administered on 11/03/18 16:50; Admin Dose 1 APPLIC; Start 11/03/18 at 09:00 Midodrine (Proamatine) 5 mg TID@09,13, GTB Last administered on 11/03/18at 02:24; Admin Dose 5 MG; Start 11/03/18 at 02:30 Miscellaneous Information (*Rx Drug Level Order Reminder*) VANCO TROUGH @ 2,300 2300 ONCE XX ; Start 11/03/18 at 23:00; Stop 11/03/18 at 23:01 ELOINA MISHRA November 03, 2018 17:49
--- NOTE | 2018-11-03 19:56 | CONS ---
Assessment/Plan Assessment/Plan Hospital Course (Demo Recall) This is a 47-year-old male, SNF resident at [facility]. He had attempted suicide in 2009. He has a past medical history of vent dependent Respiratory Failure, anoxic brain injury and encephalopathy, seizure disorder secondary to his anoxic brain injury, dysphagia, status post GT placement . The patient is admitted with c/o changes in his mental status. The patient has flexion contraction of the upper extremities and nursing staff indicated that he did not appear as rigid in his upper extremities. Patient was found to have urinary retention and a Charles catheter was inserted and 1200 mL drained out. Prior to that the patient has been incontinent. Urological consultation was therefore requested. The patient is encephalopathic and not capable of giving any history. All the information were obtained from reviewing his medical record. Renal ultrasound: Both kidneys are normal in echogenicity. There is normal renal cortical thickness without focal thinning or scarring. No solid renal masses are identified. There are multiple nonobstructing right intrarenal calculi measuring between 7-8 mm. No hydronephrosis is seen. No stone burden is noted within the left kidney. The right kidney measures 13.4 cm, and the left kidney measures 9.7 cm. Spot images of the pelvis demonstrating normally distended bladder with smooth contours. CT scan of the chest: There is right lower lobe dense wedge-shaped consolidation with moderate bilateral peribronchial nodular opacities consistent with multifocal pneumonia. Study for pulmonary embolus is severely limited due to motion with possible pulmonary embolus in the right lower lobe basilar segment however this may be artifactual from motion and repeat study may be considered. 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 There is hydronephrosis of the right kidney of mild severity secondary to partial visualization of a 10 mm stone in the right proximal ureter with wall thickening and inflammation of the right renal pelvic wall and proximal ureteral wall. Right hilar adenopathy is present which may be reactive in nature and can be reassessed with followup CT chest after 3 months. Atherosclerotic disease. No acute pulmonary process. Most likely this patient has had urinary retention for a long time and was overflowing. As far as the return urinary retention we will just have to insert the Charles catheter and keep it in. The patient also does have bilateral kidney stones and a stone in the right upper ureter. Again considering the patient's general condition I would recommend to observe him for the stones. If anything was to be done for the stones he will need to JJ stents ureteroscopy and may and needing multiple procedures. He is DNR and to keep him comfortable. Consultation Date/Type/Reason Admit Date/Time October 30, 2018 at 08:15 Date of Consultation: November 03, 2018 Type of Consult Urology Reason for Consultation Urinary retention, renal stones and upper ureteral stone. Requesting Provider: RICHARD GIRARD MD Date/Time of Note DATE: 11/03/18 TIME: 19:42 Hx of Present Illness This is a 47-year-old male, SNF resident at [facility]. He had attempted suicide in 2009. He has a past medical history of vent dependent Respiratory Failure, anoxic brain injury and encephalopathy, seizure disorder secondary to his anoxic brain injury, dysphagia, status post GT placement . The patient is admitted with c/o changes in his mental status. The patient has flexion contraction of the upper extremities and nursing staff indicated that he did not appear as rigid in his upper extremities. Patient was found to have urinary retention and a Charles catheter was inserted and 1200 mL drained out. Prior to that the patient has been incontinent. Urological consultation was therefore requested. The patient is encephalopathic and not capable of giving any history. All the information were obtained from reviewing his medical record. Past Medical History Medical History: other (As per history of present illness) Home Meds Reported Medications Ascorbic Acid* (Vitamin C*) 500 Mg Capsule.sa, 500 MG GTB DAILY, CAP 10/30/18 Cran/Vitc/Mannose/Inulin/Brom (Uti-Stat Liquid) 3,875 Mg/30 Ml Liquid, 3875 MG GTB BID 10/30/18 Acetaminophen* (Acetaminophen*) 650 Mg Tablet, 650 MG GTB TRACH CHANGE PRN for PAIN, #30 TAB 10/30/18 Acetaminophen* (Acetaminophen*) 325 Mg Tablet, 650 MG GTB BID PRN for PAIN MANAGEMENT, #30 TAB 10/30/18 Metoclopramide Hcl* (Metoclopramide Hcl*) 10 Mg Tablet, 10 MG GTB Q6H PRN for NAUSEA AND OR VOMITING, TAB 10/30/18 Potassium Chloride* (Potassium Chloride*) 20 Meq/15 Ml Liquid, 20 MEQ GTB DAILY, ML DILUTE WITH 120 CCS OF WATER 10/30/18 Multivitamin* (Daily Value*) 1 Each Tablet, 1 TAB GTB DAILY, TAB 10/30/18 Levetiracetam* (Keppra* (Ped)) 100 Mg/Ml Liq, 1500 MG GTB BID for 30 Days, BOTTLE 10/30/18 Ferrous Sulfate (Ferrous Sulfate) 220 Mg/5 Ml Solution, 300 MG GTB BID 10/30/18 Dexlansoprazole (Dexilant) 60 Mg Cap., 60 MG GTB DAILY, #30 CAP 10/30/18 Cranberry Extract (Cranberry) 425 Mg Capsule, 425 MG GTB BID, CAP 10/30/18 Docusate Sodium* (Colace*) 100 Mg Capsule, 100 MG GTB QHS, #60 CAP 10/30/18 Chlorhexidine Gluconate (Peridex) 473 Ml Mouthwash, 15 ML MM Q12, BOTTLE 10/30/18 Albuterol Sulfate* (Albuterol Sulfate* Neb) 0.083%-3 Ml Neb, 2.5 MG NEB Q6 PRN for WHEEZING AND SOB, #30 VIAL 10/30/18 Albuterol Sulfate* (Albuterol Sulfate* Neb) 0.083%-3 Ml Neb, 2.5 MG NEB Q3H PRN for WHEEZING AND SOB, #30 VIAL 10/30/18 Discontinued Reported Medications Ipratropium-Albuterol (Ipratropium-Albuterol) 0.5-3 Mg/3 Ml Ampul.neb, 3 ML INHALATION Q3H PRN for WHEEZING AND SOB, #30 VIAL 01/14/17 Ipratropium-Albuterol (Ipratropium-Albuterol) 0.5-3 Mg/3 Ml Ampul.neb, 3 ML INHALATION Q6 PRN for WHEEZING AND SOB, #30 VIAL 01/14/17 Cranberry Extract (Cranberry) 425 Mg Capsule, 425 MG PO BID, CAP 01/14/17 Ondansetron Hcl* (Zofran*) 4 Mg Tablet, 4 MG GTB Q6H PRN for NAUSEA AND OR VOMITING, TAB 01/14/17 Zinc Sulfate* (Zinc Sulfate*) 220 Mg Tablet, 220 MG GTB DAILY, TAB 01/14/17 Cran/Vitc/Mannose/Inulin/Brom (Uti-Stat Liquid) 3,875 Mg/30 Ml Liquid, 3875 MG GTB DAILY 01/14/17 Acetaminophen* (Acetaminophen*) 650 Mg Tablet, 650 MG PO TRACH CHANGE, #30 TAB GIVE 30 MIN PRIOR 01/14/17 Famotidine* (Pepcid*) 20 Mg Tablet, 20 MG GTB BID, #60 TAB 01/14/17 Ferrous Sulfate (Ferrous Sulfate) 300 Mg/5 Ml Liquid, 330 MG GTB BID 01/14/17 Chlorhexidine Gluconate (Peridex) 473 Ml Mouthwash, 15 ML MM Q12, BOTTLE 01/14/17 Metoclopramide* (Reglan*) 10 Mg/10 Ml Soln, 10 MG GTB Q6, ML 01/14/17 Docusate Sodium* (Colace*) 100 Mg Capsule, 100 MG GTB QHS, #30 CAP 12/16/16 Bisacodyl* (Bisacodyl*) 10 Mg Supp, 10 MG VA DAILY PRN for PRN, SUPP 12/16/16 Sod Phosphate/Sod Biphosphate* (Fleet* Enema Pediatric) 66.6 Ml Soln, 66.6 ML VA Q2DAYS PRN for CONSTIPATION, ENEMA 12/16/16 Magnesium Hydroxide* (Milk Of Magnesia*) 400 Mg/5 Ml Oral.susp, 30 ML GTB DAILY, ML 12/16/16 Multivit &Minerals/Ferrous Fum (MULTIVITAMIN LIQUID) 9 Mg/15 Ml Liquid, 5 ML GTB DAILY 12/16/16 Ascorbic Acid (Vitamin C) 500 Mg Tab, 500 MG GTB DAILY, TAB 12/16/16 Acetaminophen* (Tylenol*) 500 Mg Tab, 1000 MG GTB Q4H PRN for MODERATE PAIN 4- 6/10, TAB 12/16/16 Acetaminophen* (Tylenol*) 325 Mg Tablet, 650 MG GTB Q4H PRN for MILD PAIN LEVEL 1-3, TAB FOR FEVER 101 AND ABOVE,FOR TRACH TUBE CHANGE 12/16/16 Levetiracetam* (Keppra* (Ped)) 100 Mg/Ml Liq, 15 ML GTB BID for 30 Days, BOTTLE 12/16/16 Metoprolol Tartrate* (Lopressor*) 25 Mg Tab, 12.5 MG GTB BID, #60 TAB HOLD IF SBP<110 12/16/16 Lansoprazole* (Lansoprazole*) 30 Mg Capsule.dr, 30 MG GTB DAILY, CAP 12/16/16 Enoxaparin Sodium* (Lovenox*) 30 Mg/0.3 Ml Disp.syrin, 30 MG SQ DAILY, SYR 12/16/16 Aspirin* (Aspirin* EC) 81 Mg Tablet.dr, 81 MG GTB DAILY, TAB 12/16/16 Medications Current Medications Acetaminophen (Tylenol Tab) 650 mg BID PRN GTB PAIN MANAGEMENT; Start 10/30/18 at 22:00 Acetaminophen (Tylenol Tab) 650 mg Q6 PRN GTB PAIN; Start 10/30/18 at 22:00 Albuterol (Proventil 0.083% (Neb)) 2.5 mg Q3H RESP THERAPY PRN NEB WHEEZING AND SOB; Start 10/30/18 at 22:00 Albuterol (Proventil 0.083% (Neb)) 2.5 mg Q6H RESP THERAPY PRN NEB WHEEZING AND SOB; Start 10/30/18 at 22:00 Ascorbic Acid (Vitamin C) 500 mg DAILY GTB Last administered on 11/03/18 09:33; Admin Dose 500 MG; Start 10/31/18 at 09:00 Metoclopramide HCl (Reglan) 10 mg Q6H PRN GTB NAUSEA AND/OR VOMITING; Start 10/30/18 at 22:00 Multivitamins (Multivitamin) 30 ml DAILY GTB Last administered on 11/03/18 09:33; Admin Dose 30 ML; Start 10/31/18 at 09:00 Pantoprazole (Protonix Tab) 40 mg DAILY@0600 PO Last administered on 11/03/18 05:41; Admin Dose 40 MG; Start 10/31/18 at 06:00 Ferrous Sulfate (Feosol Liquid Cup) 300 mg BID PO Last administered on 11/03/18 09:33; Admin Dose 300 MG; Start 10/30/18 at 22:00 Levetiracetam (Keppra Liquid) 1,500 mg BID GTB Last administered on 11/03/18 09:33; Admin Dose 1,500 MG; Start 10/30/18 at 22:30 Potassium Chloride (Potassium Chloride Pwd/Soln) 20 meq DAILY GTB Last administered on 11/03/18 09:33; Admin Dose 20 MEQ; Start 10/31/18 at 09:00 Acetaminophen (Tylenol Liquid) 650 mg Q4H PRN GTB MILD PAIN(1-3)OR ELEVATED TE MP Last administered on 11/02/18 20:08; Admin Dose 650 MG; Start 10/31/18 at 00:00 Vancomycin HCl (Vanco Iv Per Pharmacy) VANCOMYCIN PER PHARMACY PER PROTOCOL XX ; Start 10/31/18 at 07:00 Cefepime HCl 50 ml @ 100 mls/hr Q8 IVPB Last administered on 11/03/18 14:52; Admin Dose 100 MLS/HR; Start 10/31/18 at 16:00 Nystatin (Nystatin Oint) 1 applic BID TOP Last administered on 11/03/18 11:28; Admin Dose 1 APPLIC; Start 10/31/18 at 21:00 Aspirin (Aspirin) 81 mg DAILY PO Last administered on 11/03/18 09:33; Admin Dose 81 MG; Start 11/01/18 at 09:00 Vancomycin/Sodium Chloride 250 ml @ 125 mls/hr Q12H IVPB Last administered on 11/03/18 12:32; Admin Dose 125 MLS/HR; Start 11/02/18 at 00:00 Metoprolol Tartrate (Lopressor) 25 mg BID GTB Last administered on 11/02/18 20:11; Admin Dose 25 MG; Start 11/01/18 at 21:00 Tramadol HCl (Ultram) 50 mg Q4 PRN PO MODERATE PAIN LEVEL 4-6 Last administered on 11/03/18 16:48; Admin Dose 50 MG; Start 11/01/18 at 21:00 Metoprolol Tartrate (Lopressor) 5 mg Q4 PRN IV ELEVATED HEART RATE; Start 11/01/18 at 21:00 Docusate Sodium (Colace Liquid Cup) 100 mg BID GTB Last administered on 11/03/18 09:33; Admin Dose 100 MG; Start 11/02/18 at 09:00 Potassium Chloride/Dextrose/ Sod Cl 1,000 ml @ 100 mls/hr Q10H IV Last administered on 11/03/18 11:27; Admin Dose 100 MLS/HR; Start 11/02/18 at 17:30 Collagenase (Santyl) 1 applic DAILY TOP Last administered on 11/03/18 16:50; Admin Dose 1 APPLIC; Start 11/03/18 at 09:00 Midodrine (Proamatine) 5 mg TID@,,17 GTB Last administered on 11/03/18at 02:24; Admin Dose 5 MG; Start 11/03/18 at 02:30 Miscellaneous Information (*Rx Drug Level Order Reminder*) VANCO TROUGH @ 2,300 2300 ONCE XX ; Start 11/03/18 at 23:00; Stop 11/03/18 at 23:01 Allergies: Coded Allergies: No Known Drug Allergy (Unverified Allergy, Unknown, 10/30/18) Past Surgical History Past Surgical Hx: other (Tracheostomy, G tube placement) Social History Smoking Status: Unknown if ever smoked Drug Use: other (no recored data) Exam/Review of Systems Exam Vitals Vital Signs Date Temp Pulse Resp B/P (MAP) Pulse Ox O2 O2 Flow FiO2 Time Delivery Rate 11/03/18 90 26 100 50 17:11 11/03/18 97.8 113/64 Mechanical 16:02 (80) Ventilator Intake and Output 11/02/18 11/02/18 11/03/18 1414:59 22:59 06:59 IntakeIntake Total 60 ml 1550 ml OutputOutput Total 1000 ml 800 ml BalanceBalance -940 ml 750 ml Exam The patient is on a respirator, he does have a G-tube in place. 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 He does have an indwelling Charles catheter that is draining clear urine at the present. Results Result Diagram: 11/03/18 0525 11/03/18 0525 Results 24hrs Laboratory Tests Test 11/03/18 05:25 11/03/18 10:06 White Blood Count 4.7 L Red Blood Count 3.58 #L Hemoglobin 8.2 #L Hematocrit 27.5 #L Mean Corpuscular Volume 76.8 L Mean Corpuscular Hemoglobin 22.9 L Mean Corpuscular Hemoglobin Concent 29.8 L Red Cell Distribution Width 17.2 H Platelet Count 92 #L Mean Platelet Volume Immature Granulocytes % 1.100 H Neutrophils % Segmented Neutrophils % (Manual) 72 Band Neutrophils % (Manual) 14 H Lymphocytes % Lymphocytes % (Manual) 10 L Monocytes % Monocytes % (Manual) 4 Eosinophils % Basophils % Nucleated Red Blood Cells % 0.0 Immature Granulocytes # 0.050 H Neutrophils # Neutrophils # (Manual) 3.4 Band Neutrophils # 0.6 Lymphocytes (Manual) 0.4 L Lymphocytes # Monocytes # Monocytes # (Manual) 0.1 L Eosinophils # Basophils # Nucleated Red Blood Cells # Platelet Estimate NORMAL Giant Platelets 10 H Hypochromasia 1+ Sodium Level 153 H Potassium Level 3.5 Chloride Level 125 H Carbon Dioxide Level 20 L Anion Gap 8 Blood Urea Nitrogen 25 H Creatinine 0.79 Est Glomerular Filtrat Rate mL/min > 60 Glucose Level 115 Calcium Level 8.6 Total Bilirubin 0.5 Direct Bilirubin 0.00 Indirect Bilirubin 0.5 Aspartate Amino Transf (AST/SGOT) 57 H Alanine Aminotransferase (ALT/SGPT) 40 Alkaline Phosphatase 36 L Total Protein 6.3 Albumin 3.1 L Globulin 3.20 Albumin/Globulin Ratio 0.96 Lipase 112 Blood Gas Specimen Source Blood arterial Arterial Blood Date Drawn 11/03/2018 10:31:20 AM Arterial Blood pH (Temp corrected) 7.421 Arterial Blood pCO2 (Temp correct) 30.8 L Arterial Blood pO2 (Temp corrected) 170.1 H Arterial Blood HCO3 19.6 L Arterial Blood Base Excess -4.3 L Arterial Blood Oxygen Saturation 98.8 H Zechariah Test ACCEPTAB Arterial Blood Gas Puncture Site Right Radial Arterial Blood Carboxyhemoglobin 0.3 Arterial Blood Methemoglobin 0.3 Blood Gas A-a O2 Differential 295.9 H Oxyhemoglobin Percent 98.2 Blood Gas Temperature 37.0 Blood Gas Respiration Rate 14.0 Blood Gas Actual Respiration Rate 20 Blood Gas Modality VENT - AC FiO2 70.0 Blood Gas Tidal Volume 500.0 Blood Gas Low PEEP Setting 5.0 Blood Gas Notified Whom TM Blood Gas Notified Time 11/03/2018 10:51:[address] scan of the chest: There is right lower lobe dense wedge-shaped consolidation with moderate bilateral peribronchial nodular opacities consistent with multifocal pneumonia. Study for pulmonary embolus is severely limited due to motion with possible pulmonary embolus in the right lower lobe basilar segment however this may be artifactual from motion and repeat study may be considered. 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 There is hydronephrosis of the right kidney of mild severity secondary to partial visualization of a 10 mm stone in the right proximal ureter with wall thickening and inflammation of the right renal pelvic wall and proximal ureteral wall. Right hilar adenopathy is present which may be reactive in nature and can be reassessed with followup CT chest after 3 months. Atherosclerotic disease. No acute pulmonary process. Renal ultrasound: Both kidneys are normal in echogenicity. There is normal renal cortical thickness without focal thinning or scarring. No solid renal masses are identified. There are multiple nonobstructing right intrarenal calculi measuring between 7-8 mm. No hydronephrosis is seen. No stone burden is noted within the left kidney. The right kidney measures 13.4 cm, and the left kidney measures 9.7 cm. Spot images of the pelvis demonstrating normally distended bladder with smooth contours. IMPRESSION: 1. Nonobstructing right intrarenal calculi ranging between 7-8 mm in size. No associated hydronephrosis. 2. Normal left kidney and collecting system . Note on prior CT scans the pa maryellen does have left intrarenal calculi are as well which are not seen on the current study Medications Medication Current Medications Acetaminophen (Tylenol Tab) 650 mg BID PRN GTB PAIN MANAGEMENT; Start 10/30/18 at 22:00 Acetaminophen (Tylenol Tab) 650 mg Q6 PRN GTB PAIN; Start 10/30/18 at 22:00 Albuterol (Proventil 0.083% (Neb)) 2.5 mg Q3H RESP THERAPY PRN NEB WHEEZING AND SOB; Start 10/30/18 at 22:00 Albuterol (Proventil 0.083% (Neb)) 2.5 mg Q6H RESP THERAPY PRN NEB WHEEZING AND SOB; Start 10/30/18 at 22:00 Ascorbic Acid (Vitamin C) 500 mg DAILY GTB Last administered on 11/03/18at 09:33; Admin Dose 500 MG; Start 10/31/18 at 09:00 Metoclopramide HCl (Reglan) 10 mg Q6H PRN GTB NAUSEA AND/OR VOMITING; Start 10/30/18 at 22:00 Multivitamins (Multivitamin) 30 ml DAILY GTB Last administered on 11/03/18at 09:33; Admin Dose 30 ML; Start 10/31/18 at 09:00 Pantoprazole (Protonix Tab) 40 mg DAILY@0600 PO Last administered on 11/03/18at 05:41; Admin Dose 40 MG; Start 10/31/18 at 06:00 Ferrous Sulfate (Feosol Liquid Cup) 300 mg BID PO Last administered on 11/03/18at 09:33; Admin Dose 300 MG; Start 10/30/18 at 22:00 Levetiracetam (Keppra Liquid) 1,500 mg BID GTB Last administered on 11/03/18 09:33; Admin Dose 1,500 MG; Start 10/30/18 at 22:30 Potassium Chloride (Potassium Chloride Pwd/Soln) 20 meq DAILY GTB Last administered on 11/03/18 09:33; Admin Dose 20 MEQ; Start 10/31/18 at 09:00 Acetaminophen (Tylenol Liquid) 650 mg Q4H PRN GTB MILD PAIN(1-3)OR ELEVATED TEMP Last administered on 11/02/18 20:08; Admin Dose 650 MG; Start 10/31/18 at 00:00 Vancomycin HCl (Vanco Iv Per Pharmacy) VANCOMYCIN PER PHARMACY PER PROTOCOL XX ; Start 10/31/18 at 07:00 Cefepime HCl 50 ml @ 100 mls/hr Q8 IVPB Last administered on 11/03/18 14:52; Admin Dose 100 MLS/HR; Start 10/31/18 at 16:00 Nystatin (Nystatin Oint) 1 applic BID TOP Last administered on 11/03/18 11:28; Admin Dose 1 APPLIC; Start 10/31/18 at 21:00 Aspirin (Aspirin) 81 mg DAILY PO Last administered on 11/03/18 09:33; Admin Dose 81 MG; Start 11/01/18 at 09:00 Vancomycin/Sodium Chloride 250 ml @ 125 mls/hr Q12H IVPB Last administered on 11/03/18 12:32; Admin Dose 125 MLS/HR; Start 11/02/18 at 00:00 Metoprolol Tartrate (Lopressor) 25 mg BID GTB Last administered on 11/02/18 20:11; Admin Dose 25 MG; Start 11/01/18 at 21:00 Tramadol HCl (Ultram) 50 mg Q4 PRN PO MODERATE PAIN LEVEL 4-6 Last administered on 11/03/18 16:48; Admin Dose 50 MG; Start 11/01/18 at 21:00 Metoprolol Tartrate (Lopressor) 5 mg Q4 PRN IV ELEVATED HEART RATE; Start 11/01/18 at 21:00 Docusate Sodium (Colace Liquid Cup) 100 mg BID GTB Last administered on 11/03/18at 09:33; Admin Dose 100 MG; Start 11/02/18 at 09:00 Potassium Chloride/Dextrose/ Sod Cl 1,000 ml @ 100 mls/hr Q10H IV Last administered on 11/03/18at 11:27; Admin Dose 100 MLS/HR; Start 11/02/18 at 17:30 Collagenase (Santyl) 1 applic DAILY TOP Last administered on 11/03/18at 16:50; Admin Dose 1 APPLIC; Start 11/03/18 at 09:00 Midodrine (Proamatine) 5 mg TID@,,17 GTB Last administered on 11/03/18at 02:24; Admin Dose 5 MG; Start 11/03/18 at 02:30 Miscellaneous Information (*Rx Drug Level Order Reminder*) VANCO TROUGH @ 2,300 2300 ONCE XX ; Start 11/03/18 at 23:00; Stop 11/03/18 at 23:01 CASTILLO NAVARRETE MD November 03, 2018 19:52
[2018-11-03] MEDS ORDERED: SOD CHLORIDE 0.9% 1,000 ML IV ONE (22:00)
[2018-11-04] VITALS (22 sets, daily range): BP systolic 101–124; BP diastolic 62–81; PULSE 63–103; RESP 16–33
[2018-11-04] MEDS: D5W-0.45 NACL + KCL 20 MEQ 1,000 ML IV SCH ×2 (01:08→09:30)
[2018-11-04] MEDS: CEFEPIME 1GM/50 ML (PMX) 50 ML IVPB SCH ×3 (06:00→21:55)
[2018-11-04] MEDS: PANTOPRAZOLE (EC) 40 MG TAB PO SCH (06:21)
[2018-11-04] MEDS: MIDODRINE 5 MG TAB GTB SCH ×3 (09:00→17:00)
[2018-11-04] MEDS: LEVETIRACETAM (100 MG/ML) 5ML CUP GTB SCH ×2 (09:32→21:54)
[2018-11-04] MEDS: COLLAGENASE 5 GM (UD JAR) TOP SCH (09:32)
[2018-11-04] MEDS: DOCUSATE SODIUM 10 MG/ML (10ML CUP) GTB SCH ×2 (09:32→21:55)
[2018-11-04] MEDS: FERROUS SULFATE 60 MG/ML 5ML CUP PO SCH ×2 (09:32→21:55)
[2018-11-04] MEDS: MULTIVITAMINS 30 ML CUP GTB SCH (09:32)
[2018-11-04] MEDS: ASCORBIC ACID 500 MG TAB GTB SCH (09:33)
[2018-11-04] MEDS: METOPROLOL 25 MG TAB GTB SCH ×2 (09:33→21:55)
[2018-11-04] MEDS: ASPIRIN 81 MG TAB PO SCH (09:33)
[2018-11-04] MEDS: BALSAM PERU/CASTOR OIL 60 GM TUBE TOP SCH (09:34)
[2018-11-04] MEDS: NYSTATIN 15 GM OINT TOP SCH ×2 (09:35→21:56)
[2018-11-04] MEDS: POTASSIUM CHLORIDE 100 ML IVPB SCH ×2 (09:45→12:29)
[2018-11-04] MEDS: POTASSIUM CHLORIDE 20 MEQ POWDER FOR ORAL SOLN GTB SCH ×2 (09:45→21:55)
--- NOTE | 2018-11-04 10:55 | CONS ---
Assessment/Plan Assessment/Plan Assessment/Plan (Daily) ABG was reviewed from yesterday which is showing significant improvement in hypoxemia. Lower extremity ultrasound is negative for DVT bilaterally. Ventilator setting; AC of 14, tidal volume 500, PEEP of 5, 100% FiO2. Assessment and recommendations; 1. Patient with history of VDRF and chronic encephalopathy and seizure disorder admitted for severe hypoxemia due to bilateral pneumonia with significant improvement in ABG yesterday. However patient did have episode of hypoxia this morning requiring 100% oxygen administration likely from secretion retention. 2. Low clinical suspicion for pulmonary embolism. 3. Significant improvement in thrombocytopenia after Lovenox discontinued yesterday. Continue current supportive care. Decrease FiO2 to keep O2 saturation around 94%. Obtain follow-up chest x-ray in 48 hours. Perform tracheostomy suctioning. Consultation Date/Type/Reason Admit Date/Time October 30, 2018 at 08:15 Initial Consult Date Type of Consult Pulmonary Patient is a 47-year-old male who has [facility] because of fever. Patient had been diagnosed a UTI with possibly pyonephritis. Currently on appropriate antimicrobial regimen. Because of advanced encephalopathy, patient remains totally noncommunicative. However, patient did not appear to be in any distress. Past medical history; 1. Advanced encephalopathy 2. VDRF 3. G-tube placement. 4. Seizure disorder. Medications; reviewed. Allergies; none. Social history; not available. Family history; not available. Occupational history; patient is on disability. Review of system; unable to be obtained. General exam; young male, on ventilator via tracheostomy, non communicative and unresponsive. Currently no distress. Requesting Provider: RICHARD GIRARD MD Date/Time of Note DATE: 11/04/18 TIME: 10:52 24 HR Interval Summary Free Text/Dictation Patient condition is stable. Has remained hemodynamically stable. No overt seizure activity reported. General exam; young male, on ventilator via tracheostomy, awake but noncommunic ative. Currently in no distress. Exam/Review of Systems Exam Vitals Vital Signs Date Temp Pulse Resp B/P (MAP) Pulse Ox O2 O2 Flow FiO2 Time Delivery Rate 11/04/18 85 25 100 50 09:25 11/04/18 97.9 124/81 Mechanical 07:45 (95) Ventilator Trach Collar Intake and Output 5/29/19 5/29/19 5/30/19 1515:00 23:00 07:00 IntakeIntake Total 1210 ml 3080 ml OutputOutput Total 1500 ml 900 ml BalanceBalance -290 ml 2180 ml Exam H EENT exam; supple neck, no JVD. No lymphadenopathy. Midline trachea. No thyromegaly. Tracheostomy in place. Patient is edentulous. Chest exam; diminished breath sounds bilaterally. S1-S2 audible, no murmurs. Regular rhythm. Abdomen exam; soft, no organomegaly. G-tube in place. Bowel sounds audible. Extremity exam; no peripheral edema. Patient has a flexion contractures. LICENSED EMBALMER exam; patient remains awake but noncommunicative. Results Result Diagram: 11/04/18 0545 11/04/18 0545 Results 24hrs Laboratory Tests Test 11/03/18 23:16 11/04/18 05:45 Vancomycin Level Trough 20.5 *H White Blood Count 6.3 # Red Blood Count 3.09 L Hemoglobin 7.1 L Hematocrit 23.7 L Mean Corpuscular Volume 76.7 L Mean Corpuscular Hemoglobin 23.0 L Mean Corpuscular Hemoglobin Concent 30.0 L Red Cell Distribution Width 17.0 H Platelet Count 144 # Mean Platelet Volume 13.0 H Immature Granulocytes % 1.600 H Neutrophils % Segmented Neutrophils % (Manual) 44 Band Neutrophils % (Manual) 30 H Lymphocytes % Lymphocytes % (Manual) 19 Monocytes % Monocytes % (Manual) 6 Eosinophils % Eosinophils % (Manual) 1 Basophils % Nucleated Red Blood Cells % 0.0 Immature Granulocytes # 0.100 H Neutrophils # Neutrophils # (Manual) 2.9 Band Neutrophils # 1.8 H Lymphocytes (Manual) 1.1 Lymphocytes # Monocytes # Monocytes # (Manual) 0.3 Eosinophils # Basophils # Nucleated Red Blood Cells # Platelet Estimate NORMAL Polychromasia 1+ Poikilocytosis 2+ Anisocytosis 3+ Microcytosis 3+ Sodium Level 152 H Potassium Level 2.7 *L Chloride Level 125 H Carbon Dioxide Level 20 L Anion Gap 7 Blood Urea Nitrogen 19 Creatinine 0.70 Est Glomerular Filtrat Rate mL/min > 60 Glucose Level 131 Calcium Level 8.7 Total Bilirubin 0.6 Direct Bilirubin 0.00 Indirect Bilirubin 0.6 Aspartate Amino Transf (AST/SGOT) 75 H Alanine Aminotransferase (ALT/SGPT) 41 Alkaline Phosphatase 52 Total Protein 6.2 Albumin 2.9 L Globulin 3.30 H Albumin/Globulin Ratio 0.87 Lipase 596 H Medications Medication Current Medications Acetaminophen (Tylenol Tab) 650 mg BID PRN GTB PAIN MANAGEMENT; Start 10/30/18 at 22:00 Acetaminophen (Tylenol Tab) 650 mg Q6 PRN GTB PAIN; Start 10/30/18 at 22:00 Albuterol (Proventil 0.083% (Neb)) 2.5 mg Q3H RESP THERAPY PRN NEB WHEEZING AND SOB; Start 10/30/18 at 22:00 Albuterol (Proventil 0.083% (Neb)) 2.5 mg Q6H RESP THERAPY PRN NEB WHEEZING AND SOB; Start 10/30/18 at 22:00 Ascorbic Acid (Vitamin C) 500 mg DAILY GTB Last administered on 11/04/18 09:33; Admin Dose 500 MG; Start 10/31/18 at 09:00 Metoclopramide HCl (Reglan) 10 mg Q6H PRN GTB NAUSEA AND/OR VOMITING; Start 10/30/18 at 22:00 Multivitamins (Multivitamin) 30 ml DAILY GTB Last administered on 11/04/18 09:32; Admin Dose 30 ML; Start 10/31/18 at 09:00 Pantoprazole (Protonix Tab) 40 mg DAILY@0600 PO Last administered on 11/04/18 06:21; Admin Dose 40 MG; Start 10/31/18 at 06:00 Ferrous Sulfate (Feosol Liquid Cup) 300 mg BID PO Last administered on 11/04/18 09:32; Admin Dose 300 MG; Start 10/30/18 at 22:00 Levetiracetam (Keppra Liquid) 1,500 mg BID GTB Last administered on 11/04/18 09:32; Admin Dose 1,500 MG; Start 10/30/18 at 22:30 Acetaminophen (Tylenol Liquid) 650 mg Q4H PRN GTB MILD PAIN(1-3)OR ELEVATED TEMP Last administered on 11/02/18 20:08; Admin Dose 650 MG; Start 10/31/18 at 00:00 Vancomycin HCl (Vanco Iv Per Pharmacy) VANCOMYCIN PER PHARMACY PER PROTOCOL XX ; Start 10/31/18 at 07:00 Cefepime HCl 50 ml @ 100 mls/hr Q8 IVPB Last administered on 5/30/19at 06:00; Admin Dose 100 MLS/HR; Start 10/31/18 at 16:00 Nystatin (Nystatin Oint) 1 applic BID TOP Last administered on 11/04/18 09:35; Admin Dose 1 APPLIC; Start 10/31/18 at 21:00 Aspirin (Aspirin) 81 mg DAILY PO Last administered on 11/04/18 09:33; Admin Dose 81 MG; Start 11/01/18 at 09:00 Metoprolol Tartrate (Lopressor) 25 mg BID GTB Last administered on 11/04/18 09:33; Admin Dose 25 MG; Start 11/01/18 at 21:00 Tramadol HCl (Ultram) 50 mg Q4 PRN PO MODERATE PAIN LEVEL 4-6 Last administered on 11/03/18 16:48; Admin Dose 50 MG; Start 11/01/18 at 21:00 Metoprolol Tartrate (Lopressor) 5 mg Q4 PRN IV ELEVATED HEART RATE; Start 11/01/18 at 21:00 Docusate Sodium (Colace Liquid Cup) 100 mg BID GTB Last administered on 11/04/18 09:32; Admin Dose 100 MG; Start 11/02/18 at 09:00 Potassium Chloride/Dextrose/ Sod Cl 1,000 ml @ 100 mls/hr Q10H IV Last administered on 11/04/18 01:08; Admin Dose 100 MLS/HR; Start 11/02/18 at 17:30 Collagenase (Santyl) 1 applic DAILY TOP Last administered on 11/04/18 09:32; Admin Dose 1 APPLIC; Start 11/03/18 at 09:00 Midodrine (Proamatine) 5 mg TID@09,13,17 GTB Last administered on 11/03/18 02:24; Admin Dose 5 MG; Start 11/03/18 at 02:30 Vancomycin HCl 250 ml @ 125 mls/hr Q24H IVPB ; Start 11/04/18 at 12:00 Potassium Chloride 100 ml @ 50 mls/hr Q2H IVPB Last administered on 11/04/18 09:45; Admin Dose 50 MLS/HR; Start 11/04/18 at 09:30; Stop 11/04/18 at 13:29 Potassium Chloride (Potassium Chloride Pwd/Soln) 20 meq BID GTB Last administered on 5/30/19at 09:45; Admin Dose 20 MEQ; Start 11/04/18 at 09:00 MI JEFFERS November 04, 2018 10:55
--- NOTE | 2018-11-04 11:54 | CONS ---
Assessment/Plan Assessment/Plan Hospital Course (Demo Recall) IMPRESSION: 1. Non-ST elevation myocardial infarction with up trending cardiac enzymes likely demand infarct in the setting of significant tachycardia and fevers, sepsis.-downtrending significantly 2. Abnormal electrocardiogram with nonspecific ST-T abnormalities. 3. Tachycardia, likely due to the patient's underlying sepsis-improved overall 4. Sepsis with the Gram-positive cocci group in clusters growing in blood and Gram-negative rods growing in urine. 5. Urinary tract infection. 6. Chronic respiratory failure, status post tracheostomy. 7. s/p G-tube. 8. Chronic anoxic encephalopathy. 9. Leukocytosis significantly improved. 10. Anemia-worsening 11. Hypernatremia-ongoing Recc: -Tele -Contineu asa -Contineu low dose BB -trend enzymes -lovenox held due to worsening anemia Consultation Date/Type/Reason Admit Date/Time October 30, 2018 at 08:15 Initial Consult Date 10/31/18 Type of Consult Cardiology Reason for Consultation [email or web address] Requesting Provider: RICHARD GIRARD MD Date/Time of Note DATE: 11/04/18 TIME: 11:51 Exam/Review of Systems Vital Signs Vitals Vital Signs Date Temp Pulse Resp B/P (MAP) Pulse Ox O2 O2 Flow FiO2 Time Delivery Rate 11/04/18 85 25 100 50 09:25 11/04/18 97.9 124/81 Mechanical 07:45 (95) Ventilator Trach Collar Intake and Output 11/03/18 11/03/18 11/04/18 1515:00 23:00 07:00 IntakeIntake Total 1210 ml 3080 ml OutputOutput Total 1500 ml 900 ml BalanceBalance -290 ml 2180 ml Exam Exam Review of Systems: CONSTITUTIONAL: No fevers, chills. PULMONARY: No sob CARDIOVASCULAR: No chest pain/palpitations GASTROINTESTINAL: No nausea/vomiting. GENITOURINARY: No hematuria/dysuria. MUSCULOSKELETAL: No myagias/arthalgias. PSYCHIATRIC: The patient denies depression. NEUROLOGIC: No weakness Constitutional: other (encephalopathic) Psych: no complaints Head: normocephalic ENMT: mucosa pink and moist Neck: supple, jvd (9 cm water) Respiratory: diminished breath sounds (at bases/B) Cardiovascular: regular rate and rhythm Gastrointestinal: soft, non-tender Musculoskeletal: muscle tone (normal) Extremities: edema (none) Neurological: other (NO focal deficits) Labs Result Diagram: 11/04/18 0545 11/04/18 0545 Results 24hrs Laboratory Tests Test 11/03/18 23:16 11/04/18 05:45 Vancomycin Level Trough 20.5 *H White Blood Count 6.3 # Red Blood Count 3.09 L Hemoglobin 7.1 L Hematocrit 23.7 L Mean Corpuscular Volume 76.7 L Mean Corpuscular Hemoglobin 23.0 L Mean Corpuscular Hemoglobin Concent 30.0 L Red Cell Distribution Width 17.0 H Platelet Count 144 # Mean Platelet Volume 13.0 H Immature Granulocytes % 1.600 H Neutrophils % Segmented Neutrophils % (Manual) 44 Band Neutrophils % (Manual) 30 H Lymphocytes % Lymphocytes % (Manual) 19 Monocytes % Monocytes % (Manual) 6 Eosinophils % Eosinophils % (Manual) 1 Basophils % Nucleated Red Blood Cells % 0.0 Immature Granulocytes # 0.100 H Neutrophils # Neutrophils # (Manual) 2.9 Band Neutrophils # 1.8 H Lymphocytes (Manual) 1.1 Lymphocytes # Monocytes # Monocytes # (Manual) 0.3 Eosinophils # Basophils # Nucleated Red Blood Cells # Platelet Estimate NORMAL Polychromasia 1+ Poikilocytosis 2+ Anisocytosis 3+ Microcytosis 3+ Sodium Level 152 H Potassium Level 2.7 *L Chloride Level 125 H Carbon Dioxide Level 20 L Anion Gap 7 Blood Urea Nitrogen 19 Creatinine 0.70 Est Glomerular Filtrat Rate mL/min > 60 Glucose Level 131 Calcium Level 8.7 Total Bilirubin 0.6 Direct Bilirubin 0.00 Indirect Bilirubin 0.6 Aspartate Amino Transf (AST/SGOT) 75 H Alanine Aminotransferase (ALT/SGPT) 41 Alkaline Phosphatase 52 Total Protein 6.2 Albumin 2.9 L Globulin 3.30 H Albumin/Globulin Ratio 0.87 Lipase 596 H Medications Medications Current Medications Acetaminophen (Tylenol Tab) 650 mg BID PRN GTB PAIN MANAGEMENT; Start 10/30/18 at 22:00 Acetaminophen (Tylenol Tab) 650 mg Q6 PRN GTB PAIN; Start 10/30/18 at 22:00 Albuterol (Proventil 0.083% (Neb)) 2.5 mg Q3H RESP THERAPY PRN NEB WHEEZING AND SOB; Start 10/30/18 at 22:00 Albuterol (Proventil 0.083% (Neb)) 2.5 mg Q6H RESP THERAPY PRN NEB WHEEZING AND SOB; Start 10/30/18 at 22:00 Ascorbic Acid (Vitamin C) 500 mg DAILY GTB Last administered on 11/04/18 09:33; Admin Dose 500 MG; Start 10/31/18 at 09:00 Metoclopramide HCl (Reglan) 10 mg Q6H PRN GTB NAUSEA AND/OR VOMITING; Start 10/30/18 at 22:00 Multivitamins (Multivitamin) 30 ml DAILY GTB Last administered on 11/04/18 09:32; Admin Dose 30 ML; Start 10/31/18 at 09:00 Pantoprazole (Protonix Tab) 40 mg DAILY@0600 PO Last administered on 11/04/18 06:21; Admin Dose 40 MG; Start 10/31/18 at 06:00 Ferrous Sulfate (Feosol Liquid Cup) 300 mg BID PO Last administered on 11/04/18 09:32; Admin Dose 300 MG; Start 10/30/18 at 22:00 Levetiracetam (Keppra Liquid) 1,500 mg BID GTB Last administered on 11/04/18 09:32; Admin Dose 1,500 MG; Start 10/30/18 at 22:30 Acetaminophen (Tylenol Liquid) 650 mg Q4H PRN GTB MILD PAIN(1-3)OR ELEVATED TE MP Last administered on 11/02/18 20:08; Admin Dose 650 MG; Start 10/31/18 at 00:00 Vancomycin HCl (Vanco Iv Per Pharmacy) VANCOMYCIN PER PHARMACY PER PROTOCOL XX ; Start 10/31/18 at 07:00 Cefepime HCl 50 ml @ 100 mls/hr Q8 IVPB Last administered on 11/04/18 06:00; Admin Dose 100 MLS/HR; Start 10/31/18 at 16:00 Nystatin (Nystatin Oint) 1 applic BID TOP Last administered on 11/04/18 09:35; Admin Dose 1 APPLIC; Start 10/31/18 at 21:00 Aspirin (Aspirin) 81 mg DAILY PO Last administered on 11/04/18 09:33; Admin Dose 81 MG; Start 11/01/18 at 09:00 Metoprolol Tartrate (Lopressor) 25 mg BID GTB Last administered on 11/04/18 09:33; Admin Dose 25 MG; Start 11/01/18 at 21:00 Tramadol HCl (Ultram) 50 mg Q4 PRN PO MODERATE PAIN LEVEL 4-6 Last administered on 11/03/18 16:48; Admin Dose 50 MG; Start 11/01/18 at 21:00 Metoprolol Tartrate (Lopressor) 5 mg Q4 PRN IV ELEVATED HEART RATE; Start 11/01/18 at 21:00 Docusate Sodium (Colace Liquid Cup) 100 mg BID GTB Last administered on 11/04/18 09:32; Admin Dose 100 MG; Start 11/02/18 at 09:00 Potassium Chloride/Dextrose/ Sod Cl 1,000 ml @ 100 mls/hr Q10H IV Last administered on 11/04/18 01:08; Admin Dose 100 MLS/HR; Start 11/02/18 at 17:30 Collagenase (Santyl) 1 applic DAILY TOP Last administered on 11/04/18 09:32; Admin Dose 1 APPLIC; Start 11/03/18 at 09:00 Midodrine (Proamatine) 5 mg TID@09,13,17 GTB Last administered on 11/03/18 02:24; Admin Dose 5 MG; Start 11/03/18 at 02:30 Vancomycin HCl 250 ml @ 125 mls/hr Q24H IVPB ; Start 11/04/18 at 12:00 Potassium Chloride 100 ml @ 50 mls/hr Q2H IVPB Last administered on 11/04/18 09:45; Admin Dose 50 MLS/HR; Start 11/04/18 at 09:30; Stop 11/04/18 at 13:29 Potassium Chloride (Potassium Chloride Pwd/Soln) 20 meq BID GTB Last administered on 11/04/18 09:45; Admin Dose 20 MEQ; Start 11/04/18 at 09:00 ELOINA MISHRA November 04, 2018 11:54
--- NOTE | 2018-11-04 13:32 | PN ---
Date/Time of Note Date/Time of Note DATE: 11/04/18 TIME: 13:10 Assessment/Plan VTE Prophylaxis Risk score (from [facility])>0 risk: 3 SCD applied (from [facility]): Yes Pharmacological prophylaxis: NA/contraindicated, heparin Pharm contraindication: thrombocytopenia Lines/Catheters IV [facility]ter Type (from [facility]): Peripheral IV Central line still needed: Yes Urinary Cath still in place: Yes Reason Cath still needed: urinary retention Assessment/Plan Hospital Course Patient started on G-tube feeding, minimal residual however lipase is went up, patient continues on vent with stable vital signs, continue current care, follow-up GI recommendations. Assessment/Plan -Urinary retention. Dr. Regan is following in urology consultation. -Hypernatremia, continue free water flushes where G-tube. -Sepsis with gram-positive cocci bacteremia MDR Proteus UTI. Continue antibiotics per ID. Dr. Matias is following in infection disease consultation. -Non-ST elevation myocardial infarction, continue aspirin, beta-samantha. Lovenox is held due to thrombocytopenia. Dr. Flor is following in cardiology consultation. -Pancreatitis, resolving. Dr[facility] -Ventilator dependent respiratory failure with tracheostomy. -Anoxic encephalopathy status post cardiac arrest in 2009 -Ventilator dependent respiratory failure -Dysphagia with PEG -Seizure disorder, continue Keppra. -Schizophrenia -Multiple wounds, continue current wound care, offloading. Further recommendations based on clinical course. Plan of care discussed with Dr. Courtney. Result Diagram: 11/04/18 0545 11/04/18 0545 Results 24hrs Laboratory Tests Test 11/03/18 23:16 11/04/18 05:45 Vancomycin Level Trough 20.5 *H White Blood Count 6.3 # Red Blood Count 3.09 L Hemoglobin 7.1 L Hematocrit 23.7 L Mean Corpuscular Volume 76.7 L Mean Corpuscular Hemoglobin 23.0 L Mean Corpuscular Hemoglobin Concent 30.0 L Red Cell Distribution Width 17.0 H Platelet Count 144 # Mean Platelet Volume 13.0 H Immature Granulocytes % 1.600 H Neutrophils % Segmented Neutrophils % (Manual) 44 Band Neutrophils % (Manual) 30 H Lymphocytes % Lymphocytes % (Manual) 19 Monocytes % Monocytes % (Manual) 6 Eosinophils % Eosinophils % (Manual) 1 Basophils % Nucleated Red Blood Cells % 0.0 Immature Granulocytes # 0.100 H Neutrophils # Neutrophils # (Manual) 2.9 Band Neutrophils # 1.8 H Lymphocytes (Manual) 1.1 Lymphocytes # Monocytes # Monocytes # (Manual) 0.3 Eosinophils # Basophils # Nucleated Red Blood Cells # Platelet Estimate NORMAL Polychromasia 1+ Poikilocytosis 2+ Anisocytosis 3+ Microcytosis 3+ Sodium Level 152 H Potassium Level 2.7 *L Chloride Level 125 H Carbon Dioxide Level 20 L Anion Gap 7 Blood Urea Nitrogen 19 Creatinine 0.70 Est Glomerular Filtrat Rate mL/min > 60 Glucose Level 131 Calcium Level 8.7 Total Bilirubin 0.6 Direct Bilirubin 0.00 Indirect Bilirubin 0.6 Aspartate Amino Transf (AST/SGOT) 75 H Alanine Aminotransferase (ALT/SGPT) 41 Alkaline Phosphatase 52 Total Protein 6.2 Albumin 2.9 L Globulin 3.30 H Albumin/Globulin Ratio 0.87 Lipase 596 H Exam/Review of Systems Exam Vitals Vital Signs Date Temp Pulse Resp B/P (MAP) Pulse Ox O2 O2 Flow FiO2 Time Delivery Rate 11/04/18 90 12:34 11/04/18 30 100 50 11:50 11/04/18 98.5 107/72 11:50 (84) 11/04/18 Mechanical 07:45 Ventilator Trach Collar Intake and Output 11/03/18 11/03/18 11/04/18 1515:00 23:00 07:00 IntakeIntake Total 1210 ml 3080 ml OutputOutput Total 1500 ml 900 ml BalanceBalance -290 ml 2180 ml Exam Constitutional: frail Neck: supple, other (Tracheostomy) Respiratory: diminished breath sounds Cardiovascular: regular rate and rhythm, other Gastrointestinal: soft, tender Musculoskeletal: other Extremities: other (Contracted extremities) Neurological: other (Noncommunicative) Skin: other (Multiple wounds) Results Results 24hrs Laboratory Tests Test 11/03/18 23:16 11/04/18 05:45 Vancomycin Level Trough 20.5 *H White Blood Count 6.3 # Red Blood Count 3.09 L Hemoglobin 7.1 L Hematocrit 23.7 L Mean Corpuscular Volume 76.7 L Mean Corpuscular Hemoglobin 23.0 L Mean Corpuscular Hemoglobin Concent 30.0 L Red Cell Distribution Width 17.0 H Platelet Count 144 # Mean Platelet Volume 13.0 H Immature Granulocytes % 1.600 H Neutrophils % Segmented Neutrophils % (Manual) 44 Band Neutrophils % (Manual) 30 H Lymphocytes % Lymphocytes % (Manual) 19 Monocytes % Monocytes % (Manual) 6 Eosinophils % Eosinophils % (Manual) 1 Basophils % Nucleated Red Blood Cells % 0.0 Immature Granulocytes # 0.100 H Neutrophils # Neutrophils # (Manual) 2.9 Band Neutrophils # 1.8 H Lymphocytes (Manual) 1.1 Lymphocytes # Monocytes # Monocytes # (Manual) 0.3 Eosinophils # Basophils # Nucleated Red Blood Cells # Platelet Estimate NORMAL Polychromasia 1+ Poikilocytosis 2+ Anisocytosis 3+ Microcytosis 3+ Sodium Level 152 H Potassium Level 2.7 *L Chloride Level 125 H Carbon Dioxide Level 20 L Anion Gap 7 Blood Urea Nitrogen 19 Creatinine 0.70 Est Glomerular Filtrat Rate mL/min > 60 Glucose Level 131 Calcium Level 8.7 Total Bilirubin 0.6 Direct Bilirubin 0.00 Indirect Bilirubin 0.6 Aspartate Amino Transf (AST/SGOT) 75 H Alanine Aminotransferase (ALT/SGPT) 41 Alkaline Phosphatase 52 Total Protein 6.2 Albumin 2.9 L Globulin 3.30 H Albumin/Globulin Ratio 0.87 Lipase 596 H Medications Medication Current Medications Acetaminophen (Tylenol Tab) 650 mg BID PRN GTB PAIN MANAGEMENT; Start 10/30/18 at 22:00 Acetaminophen (Tylenol Tab) 650 mg Q6 PRN GTB PAIN; Start 10/30/18 at 22:00 Albuterol (Proventil 0.083% (Neb)) 2.5 mg Q3H RESP THERAPY PRN NEB WHEEZING AND SOB; Start 10/30/18 at 22:00 Albuterol (Proventil 0.083% (Neb)) 2.5 mg Q6H RESP THERAPY PRN NEB WHEEZING AND SOB; Start 10/30/18 at 22:00 Ascorbic Acid (Vitamin C) 500 mg DAILY GTB Last administered on 11/04/18at 09:33; Admin Dose 500 MG; Start 10/31/18 at 09:00 Metoclopramide HCl (Reglan) 10 mg Q6H PRN GTB NAUSEA AND/OR VOMITING; Start 10/30/18 at 22:00 Multivitamins (Multivitamin) 30 ml DAILY GTB Last administered on 11/04/18at 09:32; Admin Dose 30 ML; Start 10/31/18 at 09:00 Pantoprazole (Protonix Tab) 40 mg DAILY@0600 PO Last administered on 11/04/18 06:21; Admin Dose 40 MG; Start 10/31/18 at 06:00 Ferrous Sulfate (Feosol Liquid Cup) 300 mg BID PO Last administered on 11/04/18 09:32; Admin Dose 300 MG; Start 10/30/18 at 22:00 Levetiracetam (Keppra Liquid) 1,500 mg BID GTB Last administered on 11/04/18 09:32; Admin Dose 1,500 MG; Start 10/30/18 at 22:30 Acetaminophen (Tylenol Liquid) 650 mg Q4H PRN GTB MILD PAIN(1-3)OR ELEVATED TEMP Last administered on 11/02/18 20:08; Admin Dose 650 MG; Start 10/31/18 at 00:00 Vancomycin HCl (Vanco Iv Per Pharmacy) VANCOMYCIN PER PHARMACY PER PROTOCOL XX ; Start 10/31/18 at 07:00 Cefepime HCl 50 ml @ 100 mls/hr Q8 IVPB Last administered on 11/04/18 06:00; Admin Dose 100 MLS/HR; Start 10/31/18 at 16:00 Nystatin (Nystatin Oint) 1 applic BID TOP Last administered on 11/04/18 09:35; Admin Dose 1 APPLIC; Start 10/31/18 at 21:00 Aspirin (Aspirin) 81 mg DAILY PO Last administered on 11/04/18 09:33; Admin Dose 81 MG; Start 11/01/18 at 09:00 Metoprolol Tartrate (Lopressor) 25 mg BID GTB Last administered on 11/04/18 09:33; Admin Dose 25 MG; Start 11/01/18 at 21:00 Tramadol HCl (Ultram) 50 mg Q4 PRN PO MODERATE PAIN LEVEL 4-6 Last administered on 11/03/18 16:48; Admin Dose 50 MG; Start 11/01/18 at 21:00 Metoprolol Tartrate (Lopressor) 5 mg Q4 PRN IV ELEVATED HEART RATE; Start 11/01/18 at 21:00 Docusate Sodium (Colace Liquid Cup) 100 mg BID GTB Last administered on 11/04/18 09:32; Admin Dose 100 MG; Start 11/02/18 at 09:00 Potassium Chloride/Dextrose/ Sod Cl 1,000 ml @ 100 mls/hr Q10H IV Last administered on 11/04/18at 01:08; Admin Dose 100 MLS/HR; Start 11/02/18 at 17:30 Collagenase (Santyl) 1 applic DAILY TOP Last administered on 11/04/18at 09:32; Admin Dose 1 APPLIC; Start 11/03/18 at 09:00 Midodrine (Proamatine) 5 mg TID@09,13,17 GTB Last administered on 11/03/18at 02:24; Admin Dose 5 MG; Start 11/03/18 at 02:30 Vancomycin HCl 250 ml @ 125 mls/hr Q24H IVPB ; Start 11/04/18 at 12:00 Potassium Chloride 100 ml @ 50 mls/hr Q2H IVPB Last administered on 11/04/18at 12:29; Admin Dose 50 MLS/HR; Start 11/04/18 at 09:30; Stop 11/04/18 at 13:29 Potassium Chloride (Potassium Chloride Pwd/Soln) 20 meq BID GTB Last administered on 11/04/18at 09:45; Admin Dose 20 MEQ; Start 11/04/18 at 09:00 JH WISDOM November 04, 2018 13:21
--- NOTE | 2018-11-04 14:18 | CONS ---
Assessment/Plan Assessment/Plan Hospital Course (Demo Recall) No acute events. Patient is noncommunicative in no distress afebrile. Microbiology: Blood culture on admission grew coag negative staph species, urine culture grew Proteus mirabilis susceptible to cefotaxime tobramycin and gent influenza swab negative, MRSA negative CT of the chest on admission revealed right lower lobe dense wench shaped consolidation with moderate bilateral peribronchial nodular opacities consistent with multifocal pneumonia. Hydronephrosis of the right kidney of mild severity secondary to partial visualization of a 10 mm stone in the right proximal ureter with wall thickening and inflammation of the right renal pelvic wall and proximal ureteral wall. Please see full report in the chart Antimicrobials: Vancomycin, cefepime Physical examination: Chronically ill-appearing vegetative middle-aged man who is in no distress. Head atraumatic normocephalic neck is supple tracheostomy present chest rise symmetrical breath sounds diminished bases. Heart: S1-S2. Abdomen soft bowel sounds hypoactive. Extremities wasted contractured Assessment: 1. Severe sepsis, present on admission 2. Coag negative staph bacteremia, possibly line sepsis as patient had PICC line on admission that was discontinued 3. Multifocal healthcare associated pneumonia 4. Urinary tract infection with obstructive uropathy 5. Vegetative 6. Elevated lipase on admission==> no evidence for pancreatitis per CT 7. DNR Plan: Stable, repeat blood cultures negative, urology recommendations noted, continue antibiotics to complete 2 weeks Consultation Date/Type/Reason Admit Date/Time October 30, 2018 at 08:15 Initial Consult Date Type of Consult id Requesting Provider: RICHARD GIRARD MD Date/Time of Note DATE: 11/04/18 TIME: 14:16 Exam/Review of Systems Exam Vitals Vital Signs Date Temp Pulse Resp B/P (MAP) Pulse Ox O2 O2 Flow FiO2 Time Delivery Rate 11/04/18 90 12:34 11/04/18 30 100 50 11:50 11/04/18 98.5 107/72 11:50 (84) 11/04/18 Mechanical 07:45 Ventilator Trach Collar Intake and Output 11/03/18 11/03/18 11/04/18 1515:00 23:00 07:00 IntakeIntake Total 1210 ml 3080 ml OutputOutput Total 1500 ml 900 ml BalanceBalance -290 ml 2180 ml Results Result Diagram: 11/04/18 0545 11/04/18 0545 Results 24hrs Laboratory Tests Test 11/03/18 23:16 11/04/18 05:45 Vancomycin Level Trough 20.5 *H White Blood Count 6.3 # Red Blood Count 3.09 L Hemoglobin 7.1 L Hematocrit 23.7 L Mean Corpuscular Volume 76.7 L Mean Corpuscular Hemoglobin 23.0 L Mean Corpuscular Hemoglobin Concent 30.0 L Red Cell Distribution Width 17.0 H Platelet Count 144 # Mean Platelet Volume 13.0 H Immature Granulocytes % 1.600 H Neutrophils % Segmented Neutrophils % (Manual) 44 Band Neutrophils % (Manual) 30 H Lymphocytes % Lymphocytes % (Manual) 19 Monocytes % Monocytes % (Manual) 6 Eosinophils % Eosinophils % (Manual) 1 Basophils % Nucleated Red Blood Cells % 0.0 Immature Granulocytes # 0.100 H Neutrophils # Neutrophils # (Manual) 2.9 Band Neutrophils # 1.8 H Lymphocytes (Manual) 1.1 Lymphocytes # Monocytes # Monocytes # (Manual) 0.3 Eosinophils # Basophils # Nucleated Red Blood Cells # Platelet Estimate NORMAL Polychromasia 1+ Poikilocytosis 2+ Anisocytosis 3+ Microcytosis 3+ Sodium Level 152 H Potassium Level 2.7 *L Chloride Level 125 H Carbon Dioxide Level 20 L Anion Gap 7 Blood Urea Nitrogen 19 Creatinine 0.70 Est Glomerular Filtrat Rate mL/min > 60 Glucose Level 131 Calcium Level 8.7 Total Bilirubin 0.6 Direct Bilirubin 0.00 Indirect Bilirubin 0.6 Aspartate Amino Transf (AST/SGOT) 75 H Alanine Aminotransferase (ALT/SGPT) 41 Alkaline Phosphatase 52 Total Protein 6.2 Albumin 2.9 L Globulin 3.30 H Albumin/Globulin Ratio 0.87 Lipase 596 H Medications Medication Current Medications Acetaminophen (Tylenol Tab) 650 mg BID PRN GTB PAIN MANAGEMENT; Start 10/30/18 at 22:00 Acetaminophen (Tylenol Tab) 650 mg Q6 PRN GTB PAIN; Start 10/30/18 at 22:00 Albuterol (Proventil 0.083% (Neb)) 2.5 mg Q3H RESP THERAPY PRN NEB WHEEZING AND SOB; Start 10/30/18 at 22:00 Albuterol (Proventil 0.083% (Neb)) 2.5 mg Q6H RESP THERAPY PRN NEB WHEEZING AND SOB; Start 10/30/18 at 22:00 Ascorbic Acid (Vitamin C) 500 mg DAILY GTB Last administered on 11/04/18 09:33; Admin Dose 500 MG; Start 10/31/18 at 09:00 Metoclopramide HCl (Reglan) 10 mg Q6H PRN GTB NAUSEA AND/OR VOMITING; Start 10/30/18 at 22:00 Multivitamins (Multivitamin) 30 ml DAILY GTB Last administered on 11/04/18 09:32; Admin Dose 30 ML; Start 10/31/18 at 09:00 Pantoprazole (Protonix Tab) 40 mg DAILY@0600 PO Last administered on 11/04/18 06:21; Admin Dose 40 MG; Start 10/31/18 at 06:00 Ferrous Sulfate (Feosol Liquid Cup) 300 mg BID PO Last administered on 11/04/18 09:32; Admin Dose 300 MG; Start 10/30/18 at 22:00 Levetiracetam (Keppra Liquid) 1,500 mg BID GTB Last administered on 11/04/18 09:32; Admin Dose 1,500 MG; Start 10/30/18 at 22:30 Acetaminophen (Tylenol Liquid) 650 mg Q4H PRN GTB MILD PAIN(1-3)OR ELEVATED TEMP Last administered on 11/02/18 20:08; Admin Dose 650 MG; Start 10/31/18 at 00:00 Vancomycin HCl (Vanco Iv Per Pharmacy) VANCOMYCIN PER PHARMACY PER PROTOCOL XX ; Start 10/31/18 at 07:00 Cefepime HCl 50 ml @ 100 mls/hr Q8 IVPB Last administered on 11/04/18 06:00; Admin Dose 100 MLS/HR; Start 10/31/18 at 16:00 Nystatin (Nystatin Oint) 1 applic BID TOP Last administered on 11/04/18 09:35; Admin Dose 1 APPLIC; Start 10/31/18 at 21:00 Aspirin (Aspirin) 81 mg DAILY PO Last administered on 11/04/18 09:33; Admin Dose 81 MG; Start 11/01/18 at 09:00 Metoprolol Tartrate (Lopressor) 25 mg BID GTB Last administered on 11/04/18 09:33; Admin Dose 25 MG; Start 11/01/18 at 21:00 Tramadol HCl (Ultram) 50 mg Q4 PRN PO MODERATE PAIN LEVEL 4-6 Last administered on 11/03/18at 16:48; Admin Dose 50 MG; Start 11/01/18 at 21:00 Metoprolol Tartrate (Lopressor) 5 mg Q4 PRN IV ELEVATED HEART RATE; Start 11/01/18 at 21:00 Docusate Sodium (Colace Liquid Cup) 100 mg BID GTB Last administered on 11/04/18at 09:32; Admin Dose 100 MG; Start 11/02/18 at 09:00 Collagenase (Santyl) 1 applic DAILY TOP Last administered on 11/04/18at 09:32; Admin Dose 1 APPLIC; Start 11/03/18 at 09:00 Midodrine (Proamatine) 5 mg TID@09,13,17 GTB Last administered on 11/03/18at 02:24; Admin Dose 5 MG; Start 11/03/18 at 02:30 Vancomycin HCl 250 ml @ 125 mls/hr Q24H IVPB ; Start 11/04/18 at 12:00 Potassium Chloride (Potassium Chloride Pwd/Soln) 20 meq BID GTB Last administered on 11/04/18at 09:45; Admin Dose 20 MEQ; Start 11/04/18 at 09:00 Potassium Chloride/Dextrose 1,000 ml @ 60 mls/hr [id number] IV ; Start 11/04/18 at 14:30 YURY YOON NP November 04, 2018 14:18
[2018-11-04] MEDS: D5W + KCL 20 MEQ 1,000 ML IV SCH (14:38)
[2018-11-04] MEDS: VANCOMYCIN 1 GM 250 ML IVPB SCH (14:39)
--- NOTE | 2018-11-04 20:07 | CONS ---
Consult Date/Type/Reason Admit Date/Time October 30, 2018 at 08:15 Initial Consult Date 11/03/18 Type of Consultation: Urology Reason for Consultation Urinary retention Requesting Provider: RICHARD GIRARD MD Date/Time of Note DATE: 11/04/18 TIME: 20:04 Subjective Patient is on a respirator and has contractures and not capable of expressing any symptoms or complaints. Objective Vitals Vital Signs Date Temp Pulse Resp B/P (MAP) Pulse Ox O2 O2 Flow FiO2 Time Delivery Rate 11/04/18 92 27 99 50 17:10 11/04/18 98.9 109/72 15:41 (84) 11/04/18 Mechanical 07:45 Ventilator Trach Collar Intake and Output 11/03/18 11/03/18 11/04/18 1414:59 22:59 06:59 IntakeIntake Total 1210 ml 3130 ml OutputOutput Total 1500 ml 900 ml BalanceBalance -290 ml 2230 ml Exam The Charlse catheter is draining clear urine. Results/Medications Result Diagram: 11/04/18 0545 11/04/18 0545 Results 24 hrs Laboratory Tests Test 11/03/18 23:16 11/04/18 05:45 Vancomycin Level Trough 20.5 *H White Blood Count 6.3 # Red Blood Count 3.09 L Hemoglobin 7.1 L Hematocrit 23.7 L Mean Corpuscular Volume 76.7 L Mean Corpuscular Hemoglobin 23.0 L Mean Corpuscular Hemoglobin Concent 30.0 L Red Cell Distribution Width 17.0 H Platelet Count 144 # Mean Platelet Volume 13.0 H Immature Granulocytes % 1.600 H Neutrophils % Segmented Neutrophils % (Manual) 44 Band Neutrophils % (Manual) 30 H Lymphocytes % Lymphocytes % (Manual) 19 Monocytes % Monocytes % (Manual) 6 Eosinophils % Eosinophils % (Manual) 1 Basophils % Nucleated Red Blood Cells % 0.0 Immature Granulocytes # 0.100 H Neutrophils # Neutrophils # (Manual) 2.9 Band Neutrophils # 1.8 H Lymphocytes (Manual) 1.1 Lymphocytes # Monocytes # Monocytes # (Manual) 0.3 Eosinophils # Basophils # Nucleated Red Blood Cells # Platelet Estimate NORMAL Polychromasia 1+ Poikilocytosis 2+ Anisocytosis 3+ Microcytosis 3+ Sodium Level 152 H Potassium Level 2.7 *L Chloride Level 125 H Carbon Dioxide Level 20 L Anion Gap 7 Blood Urea Nitrogen 19 Creatinine 0.70 Est Glomerular Filtrat Rate mL/min > 60 Glucose Level 131 Calcium Level 8.7 Total Bilirubin 0.6 Direct Bilirubin 0.00 Indirect Bilirubin 0.6 Aspartate Amino Transf (AST/SGOT) 75 H Alanine Aminotransferase (ALT/SGPT) 41 Alkaline Phosphatase 52 Total Protein 6.2 Albumin 2.9 L Globulin 3.30 H Albumin/Globulin Ratio 0.87 Lipase 596 H Home Meds Reported Medications Ascorbic Acid* (Vitamin C*) 500 Mg Capsule.sa, 500 MG GTB DAILY, CAP 10/30/18 Cran/Vitc/Mannose/Inulin/Brom (Uti-Stat Liquid) 3,875 Mg/30 Ml Liquid, 3875 MG GTB BID 10/30/18 Acetaminophen* (Acetaminophen*) 650 Mg Tablet, 650 MG GTB TRACH CHANGE PRN for PAIN, #30 TAB 10/30/18 Acetaminophen* (Acetaminophen*) 325 Mg Tablet, 650 MG GTB BID PRN for PAIN MANAGEMENT, #30 TAB 10/30/18 Metoclopramide Hcl* (Metoclopramide Hcl*) 10 Mg Tablet, 10 MG GTB Q6H PRN for NAUSEA AND OR VOMITING, TAB 10/30/18 Potassium Chloride* (Potassium Chloride*) 20 Meq/15 Ml Liquid, 20 MEQ GTB DAILY, ML DILUTE WITH 120 CCS OF WATER 10/30/18 Multivitamin* (Daily Value*) 1 Each Tablet, 1 TAB GTB DAILY, TAB 10/30/18 Levetiracetam* (Keppra* (Ped)) 100 Mg/Ml Liq, 1500 MG GTB BID for 30 Days, BOTTLE 10/30/18 Ferrous Sulfate (Ferrous Sulfate) 220 Mg/5 Ml Solution, 300 MG GTB BID 10/30/18 Dexlansoprazole (Dexilant) 60 Mg Cap., 60 MG GTB DAILY, #30 CAP 10/30/18 Cranberry Extract (Cranberry) 425 Mg Capsule, 425 MG GTB BID, CAP 10/30/18 Docusate Sodium* (Colace*) 100 Mg Capsule, 100 MG GTB QHS, #60 CAP 10/30/18 Chlorhexidine Gluconate (Peridex) 473 Ml Mouthwash, 15 ML MM Q12, BOTTLE 10/30/18 Albuterol Sulfate* (Albuterol Sulfate* Neb) 0.083%-3 Ml Neb, 2.5 MG NEB Q6 PRN for WHEEZING AND SOB, #30 VIAL 10/30/18 Albuterol Sulfate* (Albuterol Sulfate* Neb) 0.083%-3 Ml Neb, 2.5 MG NEB Q3H PRN for WHEEZING AND SOB, #30 VIAL 10/30/18 Discontinued Reported Medications Ipratropium-Albuterol (Ipratropium-Albuterol) 0.5-3 Mg/3 Ml Ampul.neb, 3 ML INHALATION Q3H PRN for WHEEZING AND SOB, #30 VIAL 01/14/17 Ipratropium-Albuterol (Ipratropium-Albuterol) 0.5-3 Mg/3 Ml Ampul.neb, 3 ML INHALATION Q6 PRN for WHEEZING AND SOB, #30 VIAL 01/14/17 Cranberry Extract (Cranberry) 425 Mg Capsule, 425 MG PO BID, CAP 01/14/17 Ondansetron Hcl* (Zofran*) 4 Mg Tablet, 4 MG GTB Q6H PRN for NAUSEA AND OR VOMITING, TAB 01/14/17 Zinc Sulfate* (Zinc Sulfate*) 220 Mg Tablet, 220 MG GTB DAILY, TAB 01/14/17 Cran/Vitc/Mannose/Inulin/Brom (Uti-Stat Liquid) 3,875 Mg/30 Ml Liquid, 3875 MG GTB DAILY 01/14/17 Acetaminophen* (Acetaminophen*) 650 Mg Tablet, 650 MG PO TRACH CHANGE, #30 TAB GIVE 30 MIN PRIOR 01/14/17 Famotidine* (Pepcid*) 20 Mg Tablet, 20 MG GTB BID, #60 TAB 01/14/17 Ferrous Sulfate (Ferrous Sulfate) 300 Mg/5 Ml Liquid, 330 MG GTB BID 01/14/17 Chlorhexidine Gluconate (Peridex) 473 Ml Mouthwash, 15 ML MM Q12, BOTTLE 01/14/17 Metoclopramide* (Reglan*) 10 Mg/10 Ml Soln, 10 MG GTB Q6, ML 01/14/17 Docusate Sodium* (Colace*) 100 Mg Capsule, 100 MG GTB QHS, #30 CAP 12/16/16 Bisacodyl* (Bisacodyl*) 10 Mg Supp, 10 MG VT DAILY PRN for PRN, SUPP 12/16/16 Sod Phosphate/Sod Biphosphate* (Fleet* Enema Pediatric) 66.6 Ml Soln, 66.6 ML VT Q2DAYS PRN for CONSTIPATION, ENEMA 12/16/16 Magnesium Hydroxide* (Milk Of Magnesia*) 400 Mg/5 Ml Oral.susp, 30 ML GTB DAILY, ML 12/16/16 Multivit &Minerals/Ferrous Fum (MULTIVITAMIN LIQUID) 9 Mg/15 Ml Liquid, 5 ML GTB DAILY 12/16/16 Ascorbic Acid (Vitamin C) 500 Mg Tab, 500 MG GTB DAILY, TAB 12/16/16 Acetaminophen* (Tylenol*) 500 Mg Tab, 1000 MG GTB Q4H PRN for MODERATE PAIN 4- 11/15, TAB 12/16/16 Acetaminophen* (Tylenol*) 325 Mg Tablet, 650 MG GTB Q4H PRN for MILD PAIN LEVEL 1-3, TAB FOR FEVER 101 AND ABOVE,FOR TRACH TUBE CHANGE 12/16/16 Levetiracetam* (Keppra* (Ped)) 100 Mg/Ml Liq, 15 ML GTB BID for 30 Days, BOTTLE 12/16/16 Metoprolol Tartrate* (Lopressor*) 25 Mg Tab, 12.5 MG GTB BID, #60 TAB HOLD IF SBP<110 12/16/16 Lansoprazole* (Lansoprazole*) 30 Mg Capsule.dr, 30 MG GTB DAILY, CAP 12/16/16 Enoxaparin Sodium* (Lovenox*) 30 Mg/0.3 Ml Disp.syrin, 30 MG SQ DAILY, SYR 12/16/16 Aspirin* (Aspirin* EC) 81 Mg Tablet.dr, 81 MG GTB DAILY, TAB 12/16/16 Medications Current Medications Acetaminophen (Tylenol Tab) 650 mg BID PRN GTB PAIN MANAGEMENT; Start 10/30/18 at 22:00 Acetaminophen (Tylenol Tab) 650 mg Q6 PRN GTB PAIN; Start 10/30/18 at 22:00 Albuterol (Proventil 0.083% (Neb)) 2.5 mg Q3H RESP THERAPY PRN NEB WHEEZING AND SOB; Start 10/30/18 at 22:00 Albuterol (Proventil 0.083% (Neb)) 2.5 mg Q6H RESP THERAPY PRN NEB WHEEZING AND SOB; Start 10/30/18 at 22:00 Ascorbic Acid (Vitamin C) 500 mg DAILY GTB Last administered on 11/04/18 09:33; Admin Dose 500 MG; Start 10/31/18 at 09:00 Metoclopramide HCl (Reglan) 10 mg Q6H PRN GTB NAUSEA AND/OR VOMITING; Start 10/30/18 at 22:00 Multivitamins (Multivitamin) 30 ml DAILY GTB Last administered on 11/04/18 09:32; Admin Dose 30 ML; Start 10/31/18 at 09:00 Pantoprazole (Protonix Tab) 40 mg DAILY@0600 PO Last administered on 11/04/18 06:21; Admin Dose 40 MG; Start 10/31/18 at 06:00 Ferrous Sulfate (Feosol Liquid Cup) 300 mg BID PO Last administered on 11/04/18 09:32; Admin Dose 300 MG; Start 10/30/18 at 22:00 Levetiracetam (Keppra Liquid) 1,500 mg BID GTB Last administered on 11/04/18 09:32; Admin Dose 1,500 MG; Start 10/30/18 at 22:30 Acetaminophen (Tylenol Liquid) 650 mg Q4H PRN GTB MILD PAIN(1-3)OR ELEVATED TEMP Last administered on 11/02/18 20:08; Admin Dose 650 MG; Start 10/31/18 at 00:00 Vancomycin HCl (Vanco Iv Per Pharmacy) VANCOMYCIN PER PHARMACY PER PROTOCOL XX ; Start 10/31/18 at 07:00 Cefepime HCl 50 ml @ 100 mls/hr Q8 IVPB Last administered on 11/04/18 17:34; Admin Dose 100 MLS/HR; Start 10/31/18 at 16:00 Nystatin (Nystatin Oint) 1 applic BID TOP Last administered on 11/04/18 09:35; Admin Dose 1 APPLIC; Start 10/31/18 at 21:00 Aspirin (Aspirin) 81 mg DAILY PO Last administered on 11/04/18 09:33; Admin Dose 81 MG; Start 11/01/18 at 09:00 Metoprolol Tartrate (Lopressor) 25 mg BID GTB Last administered on 11/04/18 09:33; Admin Dose 25 MG; Start 11/01/18 at 21:00 Tramadol HCl (Ultram) 50 mg Q4 PRN PO MODERATE PAIN LEVEL 4-6 Last administered on 11/03/18 16:48; Admin Dose 50 MG; Start 11/01/18 at 21:00 Metoprolol Tartrate (Lopressor) 5 mg Q4 PRN IV ELEVATED HEART RATE; Start 11/01/18 at 21:00 Docusate Sodium (Colace Liquid Cup) 100 mg BID GTB Last administered on 11/04/18 09:32; Admin Dose 100 MG; Start 11/02/18 at 09:00 Collagenase (Santyl) 1 applic DAILY TOP Last administered on 11/04/18 09:32; Admin Dose 1 APPLIC; Start 11/03/18 at 09:00 Midodrine (Proamatine) 5 mg TID@09,13,17 GTB Last administered on 11/03/18 02:24; Admin Dose 5 MG; Start 11/03/18 at 02:30 Vancomycin HCl 250 ml @ 125 mls/hr Q24H IVPB Last administered on 11/04/18 14:39; Admin Dose 125 MLS/HR; Start 11/04/18 at 12:00 Potassium Chloride (Potassium Chloride Pwd/Soln) 20 meq BID GTB Last administered on 11/04/18 09:45; Admin Dose 20 MEQ; Start 11/04/18 at 09:00 Potassium Chloride/Dextrose 1,000 ml @ 60 mls/hr [id number] IV Last administered on 11/04/18 14:38; Admin Dose 60 MLS/HR; Start 11/04/18 at 14:30 Assessment/Plan Hospital Course (Demo Recall) This is a 47-year-old male, SNF resident [facility]. He had attempted suicide in 2009. He has a past medical history of vent dependent Re spiratory Failure, anoxic brain injury and encephalopathy, seizure disorder secondary to his anoxic brain injury, dysphagia, status post GT placement . The patient is admitted with c/o changes in his mental status. The patient has flexion contraction of the upper extremities and nursing staff indicated that he did not appear as rigid in his upper extremities. Patient was found to have urinary retention and a Charles catheter was inserted and 1200 mL drained out. Prior to that the patient has been incontinent. Urological consultation was therefore requested. The patient is encephalopathic and not capable of giving any history. All the information were obtained from reviewing his medical record. Renal ultrasound: Both kidneys are normal in echogenicity. There is normal renal cortical thickness without focal thinning or scarring. No solid renal masses are identified. There are multiple nonobstructing right intrarenal calculi measuring between 7-8 mm. No hydronephrosis is seen. No stone burden is noted within the left kidney. The right kidney measures 13.4 cm, and the left kidney measures 9.7 cm. Spot images of the pelvis demonstrating normally distended bladder with smooth contours. CT scan of the chest: There is right lower lobe dense wedge-shaped consolidation with moderate bilateral peribronchial nodular opacities consistent with multifocal pneumonia. Study for pulmonary embolus is severely limited due to motion with possible pulmonary embolus in the right lower lobe basilar segment however this may be artifactual from motion and repeat study may be considered. 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 There is hydronephrosis of the right kidney of mild severity secondary to partial visualization of a 10 mm stone in the right proximal ureter with wall thickening and inflammation of the right renal pelvic wall and proximal ureteral wall. Right hilar adenopathy is present which may be reactive in nature and can be janae ssessed with followup CT chest after 3 months. Atherosclerotic disease. No acute pulmonary process. Most likely this patient has had urinary retention for a long time and was overflowing. As far as the urinary retention we will just have to insert the Charles catheter and keep it in. The patient also does have bilateral kidney stones and a stone in the right upper ureter. Again considering the patient's general condition I would recommend to observe him for the stones. If anything was to be done for the stones he will need JJ stents ,ureteroscopy and may and needing multiple procedures. He is DNR and to keep him comfortable. Presently continue the same treatment CASTILLO NAVARRETE MD November 04, 2018 20:07
[2018-11-04] MEDS ORDERED: POTASSIUM CHLORIDE 20 MEQ POWDER FOR ORAL SOLN GTB SCH (21:00)
[2018-11-05] VITALS (23 sets, daily range): BP systolic 89–118; BP diastolic 52–79; PULSE 94–119; RESP 18–47
[2018-11-05] MEDS: traMADol 50 MG TAB PO PRN (03:18)
[2018-11-05] MEDS: CEFEPIME 1GM/50 ML (PMX) 50 ML IVPB SCH (06:00)
[2018-11-05] MEDS: PANTOPRAZOLE (EC) 40 MG TAB PO SCH (06:00)
[2018-11-05] MEDS: D5W + KCL 20 MEQ 1,000 ML IV SCH ×2 (07:10→10:30)
[2018-11-05] MEDS: FERROUS SULFATE 60 MG/ML 5ML CUP PO SCH ×2 (08:41→20:17)
[2018-11-05] MEDS: DOCUSATE SODIUM 10 MG/ML (10ML CUP) GTB SCH ×2 (08:41→20:18)
[2018-11-05] MEDS: ACETAMINOPHEN 650MG/20.3ML CUP GTB PRN ×2 (08:41→15:26)
[2018-11-05] MEDS: LEVETIRACETAM (100 MG/ML) 5ML CUP GTB SCH ×2 (08:41→20:18)
[2018-11-05] MEDS: MULTIVITAMINS 30 ML CUP GTB SCH (08:41)
[2018-11-05] MEDS: MIDODRINE 5 MG TAB GTB SCH ×3 (08:42→17:18)
[2018-11-05] MEDS: METOPROLOL 25 MG TAB GTB SCH ×2 (08:42→20:19)
[2018-11-05] MEDS: ASCORBIC ACID 500 MG TAB GTB SCH (08:42)
[2018-11-05] MEDS: POTASSIUM CHLORIDE 20 MEQ POWDER FOR ORAL SOLN GTB SCH ×2 (08:42→20:18)
[2018-11-05] MEDS: COLLAGENASE 5 GM (UD JAR) TOP SCH (08:42)
[2018-11-05] MEDS: ASPIRIN 81 MG TAB PO SCH (08:42)
[2018-11-05] MEDS: BALSAM PERU/CASTOR OIL 60 GM TUBE TOP SCH (08:43)
[2018-11-05] MEDS: NYSTATIN 15 GM OINT TOP SCH ×2 (08:43→22:53)
[2018-11-05] MEDS ORDERED: POTASSIUM CHLORIDE (SR) 20 MEQ TAB PO STA (10:09)
--- NOTE | 2018-11-05 10:09 | PN ---
Date/Time of Note Date/Time of Note DATE: 11/05/18 TIME: 10:08 Assessment/Plan VTE Prophylaxis Risk score (from [facility])>0 risk: 9 SCD applied (from [facility]): Yes SCD contraindicated: other Pharmacological prophylaxis: other Pharm contraindication: other Lines/Catheters IV Catheter Type (from [facility]): Peripheral IV Urinary Cath still in place: Yes Reason Cath still needed: urinary retention Assessment/Plan Assessment/Plan - Hypokalemia- replsce K; am BMP - Anemia- transfuse as needed -Urinary retention. Dr. Regan is following in urology consultation. -Hypernatremia, continue free water flushes where G-tube. -Sepsis with gram-positive cocci bacteremia MDR Proteus UTI. Continue antibiotics per ID. Dr. Matias is following in infection disease consultation. -Non-ST elevation myocardial infarction, continue aspirin, beta-samantha. Lovenox is held due to thrombocytopenia. - Dr. Flor is following in cardiology consultation. -Pancreatitis, resolving. - Dr. Walton is following in gastroenterology consultation. -Ventilator dependent respiratory failure with tracheostomy. - per pulmonary -Anoxic encephalopathy status post cardiac arrest in 2009 -Ventilator dependent respiratory failure -Dysphagia with PEG -Seizure disorder, continue Keppra. -Schizophrenia -Multiple wounds, continue current wound care, offloading. Further recommendations based on clinical course. Plan of care discussed with Dr. Courtney. Result Diagram: 11/05/18 0531 11/05/18 0531 Results 24hrs Laboratory Tests Test 11/05/18 05:31 White Blood Count 6.1 Red Blood Count 3.11 L Hemoglobin 7.2 L Hematocrit 23.8 L Mean Corpuscular Volume 76.5 L Mean Corpuscular Hemoglobin 23.2 L Mean Corpuscular Hemoglobin Concent 30.3 L Red Cell Distribution Width 17.1 H Platelet Count 164 Mean Platelet Volume 12.7 H Immature Granulocytes % 1.000 H Neutrophils % 81.8 H Segmented Neutrophils % (Manual) 67 Band Neutrophils % (Manual) 5 H Lymphocytes % 11.3 L Lymphocytes % (Manual) 20 Reactive Lymphocytes % (Manual) 3 H Monocytes % 3.9 Monocytes % (Manual) 5 Eosinophils % 1.8 Basophils % 0.2 Nucleated Red Blood Cells % 0.0 Immature Granulocytes # 0.060 H Neutrophils # 5.0 Neutrophils # (Manual) 4.1 Band Neutrophils # 0.3 Lymphocytes (Manual) 1.2 Lymphocytes # 0.7 L Reactive Lymphocytes # 0.1 H Monocytes # 0.2 L Monocytes # (Manual) 0.3 Eosinophils # 0.1 Basophils # 0.0 Nucleated Red Blood Cells # 0.0 Platelet Estimate NORMAL Polychromasia 1+ Poikilocytosis 1+ Anisocytosis 1+ Target Cells 1+ Sodium Level 147 H Potassium Level 3.3 L Chloride Level 118 H Carbon Dioxide Level 22 Anion Gap 7 Blood Urea Nitrogen 16 Creatinine 0.51 L Est Glomerular Filtrat Rate mL/min > 60 Glucose Level 123 Calcium Level 8.8 Magnesium Level 2.2 Lipase 872 H Subjective 24 Hr Interval Summary Free Text/Dictation -nad low K- replace - febrile no new events reported overnight dw staff Subjective hx not possible: pt non-verbal Constitutional: requiring O2 Exam/Review of Systems Exam Vitals Vital Signs Date Temp Pulse Resp B/P (MAP) Pulse Ox O2 O2 Flow FiO2 Time Delivery Rate 11/05/18 118 09:08 11/05/18 102.7 08:41 11/05/18 39 112/77 95 07:56 (89) 11/05/18 80 07:35 11/04/18 [place] 07:45 l Ventilato r Trach Collar Intake and Output 11/04/18 11/04/18 11/05/18 1515:00 23:00 07:00 IntakeIntake Total 200 ml 1370 ml 1940 ml OutputOutput Total 1800 ml 1600 ml BalanceBalance 200 ml -430 ml 340 ml Constitutional: alert, non-verbal Psych: nl mood/affect Eyes: nl lids Neck: non-tender Respiratory: clear to auscultation Cardiovascular: nl pulses Gastrointestinal: soft, non-tender Musculoskeletal: muscle weakness Results Results 24hrs Laboratory Tests Test 11/05/18 05:31 White Blood Count 6.1 Red Blood Count 3.11 L Hemoglobin 7.2 L Hematocrit 23.8 L Mean Corpuscular Volume 76.5 L Mean Corpuscular Hemoglobin 23.2 L Mean Corpuscular Hemoglobin Concent 30.3 L Red Cell Distribution Width 17.1 H Platelet Count 164 Mean Platelet Volume 12.7 H Immature Granulocytes % 1.000 H Neutrophils % 81.8 H Segmented Neutrophils % (Manual) 67 Band Neutrophils % (Manual) 5 H Lymphocytes % 11.3 L Lymphocytes % (Manual) 20 Reactive Lymphocytes % (Manual) 3 H Monocytes % 3.9 Monocytes % (Manual) 5 Eosinophils % 1.8 Basophils % 0.2 Nucleated Red Blood Cells % 0.0 Immature Granulocytes # 0.060 H Neutrophils # 5.0 Neutrophils # (Manual) 4.1 Band Neutrophils # 0.3 Lymphocytes (Manual) 1.2 Lymphocytes # 0.7 L Reactive Lymphocytes # 0.1 H Monocytes # 0.2 L Monocytes # (Manual) 0.3 Eosinophils # 0.1 Basophils # 0.0 Nucleated Red Blood Cells # 0.0 Platelet Estimate NORMAL Polychromasia 1+ Poikilocytosis 1+ Anisocytosis 1+ Target Cells 1+ Sodium Level 147 H Potassium Level 3.3 L Chloride Level 118 H Carbon Dioxide Level 22 Anion Gap 7 Blood Urea Nitrogen 16 Creatinine 0.51 L Est Glomerular Filtrat Rate mL/min > 60 Glucose Level 123 Calcium Level 8.8 Magnesium Level 2.2 Lipase 872 H Medications Medication Current Medications Acetaminophen (Tylenol Tab) 650 mg BID PRN GTB PAIN MANAGEMENT; Start 10/30/18 at 22:00 Acetaminophen (Tylenol Tab) 650 mg Q6 PRN GTB PAIN; Start 10/30/18 at 22:00 Albuterol (Proventil 0.083% (Neb)) 2.5 mg Q3H RESP THERAPY PRN NEB WHEEZING AND SOB; Start 10/30/18 at 22:00 Albuterol (Proventil 0.083% (Neb)) 2.5 mg Q6H RESP THERAPY PRN NEB WHEEZING AND SOB; Start 10/30/18 at 22:00 Ascorbic Acid (Vitamin C) 500 mg DAILY GTB Last administered on 11/05/18at 08:42; Admin Dose 500 MG; Start 10/31/18 at 09:00 Metoclopramide HCl (Reglan) 10 mg Q6H PRN GTB NAUSEA AND/OR VOMITING; Start 10/30/18 at 22:00 Multivitamins (Multivitamin) 30 ml DAILY GTB Last administered on 11/05/18at 08:41; Admin Dose 30 ML; Start 10/31/18 at 09:00 Pantoprazole (Protonix Tab) 40 mg DAILY@0600 PO Last administered on 11/05/18at 06:00; Admin Dose 40 MG; Start 10/31/18 at 06:00 Ferrous Sulfate (Feosol Liquid Cup) 300 mg BID PO Last administered on 11/05/18 08:41; Admin Dose 300 MG; Start 10/30/18 at 22:00 Levetiracetam (Keppra Liquid) 1,500 mg BID GTB Last administered on 11/05/18 0 8:41; Admin Dose 1,500 MG; Start 10/30/18 at 22:30 Acetaminophen (Tylenol Liquid) 650 mg Q4H PRN GTB MILD PAIN(1-3)OR ELEVATED TEMP Last administered on 11/05/18 08:41; Admin Dose 650 MG; Start 10/31/18 at 00:00 Vancomycin HCl (Vanco Iv Per Pharmacy) VANCOMYCIN PER PHARMACY PER PROTOCOL XX ; Start 10/31/18 at 07:00 Cefepime HCl 50 ml @ 100 mls/hr Q8 IVPB Last administered on 11/05/18 06:00; Admin Dose 100 MLS/HR; Start 10/31/18 at 16:00 Nystatin (Nystatin Oint) 1 applic BID TOP Last administered on 11/05/18 08:43; Admin Dose 1 APPLIC; Start 10/31/18 at 21:00 Aspirin (Aspirin) 81 mg DAILY PO Last administered on 11/05/18 08:42; Admin Dose 81 MG; Start 11/01/18 at 09:00 Metoprolol Tartrate (Lopressor) 25 mg BID GTB Last administered on 11/05/18 08:42; Admin Dose 25 MG; Start 11/01/18 at 21:00 Tramadol HCl (Ultram) 50 mg Q4 PRN PO MODERATE PAIN LEVEL 4-6 Last administered on 11/05/18 03:18; Admin Dose 50 MG; Start 11/01/18 at 21:00 Metoprolol Tartrate (Lopressor) 5 mg Q4 PRN IV ELEVATED HEART RATE; Start 11/01/18 at 21:00 Docusate Sodium (Colace Liquid Cup) 100 mg BID GTB Last administered on 11/05/18 08:41; Admin Dose 100 MG; Start 11/02/18 at 09:00 Collagenase (Santyl) 1 applic DAILY TOP Last administered on 11/05/18 08:42; Admin Dose 1 APPLIC; Start 11/03/18 at 09:00 Midodrine (Proamatine) 5 mg TID@09,13,17 GTB Last administered on 11/03/18 02:24; Admin Dose 5 MG; Start 11/03/18 at 02:30 Vancomycin HCl 250 ml @ 125 mls/hr Q24H IVPB Last administered on 11/04/18 14:39; Admin Dose 125 MLS/HR; Start 11/04/18 at 12:00 Potassium Chloride (Potassium Chloride Pwd/Soln) 20 meq BID GTB Last administered on 11/05/18 08:42; Admin Dose 20 MEQ; Start 11/04/18 at 09:00 Potassium Chloride/Dextrose 1,000 ml @ 100 mls/hr Q10H IV Last administered on 11/04/18 14:38; Admin Dose 60 MLS/HR; Start 11/04/18 at 14:30 SHELLEY HERNANDEZ November 05, 2018 10:09
[2018-11-05] MEDS ORDERED: POTASSIUM CHLORIDE 20 MEQ POWDER FOR ORAL SOLN GTB ONE (10:30)
[2018-11-05] MEDS: VANCOMYCIN 1 GM 250 ML IVPB SCH (11:25)
[2018-11-05] MEDS ORDERED: LORAZEPAM 2 MG INJ IV PRN (11:30)
[2018-11-05] MEDS ORDERED: morphine 2 MG INJ IV PRN (13:30)
--- NOTE | 2018-11-05 13:44 | CONS ---
Assessment/Plan Assessment/Plan Hospital Course (Demo Recall) Patient is tachypneic continues to spike fevers with a T-max of 102.7 this a.m. WBC 6.1 platelets 164 neutrophils 81.7 BUN 16 creatinine 0.51 Antimicrobials: Vancomycin, cefepime Microbiology: Blood culture on admission grew coag negative staph species, urine culture grew Proteus mirabilis susceptible to cefotaxime tobramycin and gent influenza swab negative, MRSA negative CT of the chest on admission revealed right lower lobe dense wench shaped consolidation with moderate bilateral peribronchial nodular opacities consistent with multifocal pneumonia. Hydronephrosis of the right kidney of mild severity secondary to partial visualization of a 10 mm stone in the right proximal ureter with wall thickening and inflammation of the right renal pelvic wall and proximal ureteral wall. Please see full report in the chart Antimicrobials: Vancomycin, cefepime Physical examination: Chronically ill-appearing vegetative middle-aged man who is in no distress. Head atraumatic normocephalic neck is supple tracheostomy present chest rise symmetrical breath sounds diminished bases. Heart: S1-S2. Abdomen soft bowel sounds hypoactive. Extremities wasted contractured Assessment: 1. Severe sepsis, present on admission 2. Coag negative staph bacteremia, possibly line sepsis as patient had PICC line on admission that was discontinued 3. Multifocal healthcare associated pneumonia 4. Urinary tract infection with obstructive uropathy 5. Vegetative 6. Elevated lipase on admission==> no evidence for pancreatitis per CT 7. DNR Plan: Clinically unchanged, sputum culture was ordered on admission not done, will repeat again today, change cefepime to Zosyn Discussed with RN and respiratory therapist Consultation Date/Type/Reason Admit Date/Time October 30, 2018 at 08:15 Initial Consult Date Type of Consult id Requesting Provider: RICHARD GIRARD MD Date/Time of Note DATE: 11/05/18 TIME: 13:43 Exam/Review of Systems Exam Vitals Vital Signs Date Temp Pulse Resp B/P (MAP) Pulse Ox O2 O2 Flow FiO2 Time Delivery Rate 11/05/18 101 13:05 11/05/18 100.8 37 118/79 97 11:23 (92) 11/05/18 70 11:10 11/04/18 [place] 07:45 l Ventilato r Trach Collar Intake and Output 11/04/18 11/04/18 11/05/18 1515:00 23:00 07:00 IntakeIntake Total 200 ml 1370 ml 1940 ml OutputOutput Total 1800 ml 1600 ml BalanceBalance 200 ml -430 ml 340 ml Results Result Diagram: 11/05/1831 11/05/18 0531 Results 24hrs Laboratory Tests Test 11/05/18 05:31 White Blood Count 6.1 Red Blood Count 3.11 L Hemoglobin 7.2 L Hematocrit 23.8 L Mean Corpuscular Volume 76.5 L Mean Corpuscular Hemoglobin 23.2 L Mean Corpuscular Hemoglobin Concent 30.3 L Red Cell Distribution Width 17.1 H Platelet Count 164 Mean Platelet Volume 12.7 H Immature Granulocytes % 1.000 H Neutrophils % 81.8 H Segmented Neutrophils % (Manual) 67 Band Neutrophils % (Manual) 5 H Lymphocytes % 11.3 L Lymphocytes % (Manual) 20 Reactive Lymphocytes % (Manual) 3 H Monocytes % 3.9 Monocytes % (Manual) 5 Eosinophils % 1.8 Basophils % 0.2 Nucleated Red Blood Cells % 0.0 Immature Granulocytes # 0.060 H Neutrophils # 5.0 Neutrophils # (Manual) 4.1 Band Neutrophils # 0.3 Lymphocytes (Manual) 1.2 Lymphocytes # 0.7 L Reactive Lymphocytes # 0.1 H Monocytes # 0.2 L Monocytes # (Manual) 0.3 Eosinophils # 0.1 Basophils # 0.0 Nucleated Red Blood Cells # 0.0 Platelet Estimate NORMAL Polychromasia 1+ Poikilocytosis 1+ Anisocytosis 1+ Target Cells 1+ Sodium Level 147 H Potassium Level 3.3 L Chloride Level 118 H Carbon Dioxide Level 22 Anion Gap 7 Blood Urea Nitrogen 16 Creatinine 0.51 L Est Glomerular Filtrat Rate mL/min > 60 Glucose Level 123 Calcium Level 8.8 Magnesium Level 2.2 Lipase 872 H Medications Medication Current Medications Acetaminophen (Tylenol Tab) 650 mg BID PRN GTB PAIN MANAGEMENT; Start 10/30/18 at 22:00 Acetaminophen (Tylenol Tab) 650 mg Q6 PRN GTB PAIN; Start 10/30/18 at 22:00 Albuterol (Proventil 0.083% (Neb)) 2.5 mg Q3H RESP THERAPY PRN NEB WHEEZING AND SOB; Start 10/30/18 at 22:00 Albuterol (Proventil 0.083% (Neb)) 2.5 mg Q6H RESP THERAPY PRN NEB WHEEZING AND SOB; Start 10/30/18 at 22:00 Ascorbic Acid (Vitamin C) 500 mg DAILY GTB Last administered on 11/05/18 08:42; Admin Dose 500 MG; Start 10/31/18 at 09:00 Metoclopramide HCl (Reglan) 10 mg Q6H PRN GTB NAUSEA AND/OR VOMITING; Start 10/30/18 at 22:00 Multivitamins (Multivitamin) 30 ml DAILY GTB Last administered on 11/05/18 08:41; Admin Dose 30 ML; Start 10/31/18 at 09:00 Pantoprazole (Protonix Tab) 40 mg DAILY@0600 PO Last administered on 11/05/18 06:00; Admin Dose 40 MG; Start 10/31/18 at 06:00 Ferrous Sulfate (Feosol Liquid Cup) 300 mg BID PO Last administered on 11/05/18 08:41; Admin Dose 300 MG; Start 10/30/18 at 22:00 Levetiracetam (Keppra Liquid) 1,500 mg BID GTB Last administered on 11/05/18 08:41; Admin Dose 1,500 MG; Start 10/30/18 at 22:30 Acetaminophen (Tylenol Liquid) 650 mg Q4H PRN GTB MILD PAIN(1-3)OR ELEVATED TEMP Last administered on 11/05/18 08:41; Admin Dose 650 MG; Start 10/31/18 at 00:00 Vancomycin HCl (Vanco Iv Per Pharmacy) VANCOMYCIN PER PHARMACY PER PROTOCOL XX ; Start 10/31/18 at 07:00 Cefepime HCl 50 ml @ 100 mls/hr Q8 IVPB Last administered on 11/05/18 06:00; Admin Dose 100 MLS/HR; Start 10/31/18 at 16:00 Nystatin (Nystatin Oint) 1 applic BID TOP Last administered on 11/05/18 08:43; Admin Dose 1 APPLIC; Start 10/31/18 at 21:00 Aspirin (Aspirin) 81 mg DAILY PO Last administered on 11/05/18 08:42; Admin Dose 81 MG; Start 11/01/18 at 09:00 Metoprolol Tartrate (Lopressor) 25 mg BID GTB Last administered on 11/05/18 08:42; Admin Dose 25 MG; Start 11/01/18 at 21:00 Tramadol HCl (Ultram) 50 mg Q4 PRN PO MODERATE PAIN LEVEL 4-6 Last administered on 11/05/18 03:18; Admin Dose 50 MG; Start 11/01/18 at 21:00 Metoprolol Tartrate (Lopressor) 5 mg Q4 PRN IV ELEVATED HEART RATE; Start 11/01/18 at 21:00 Docusate Sodium (Colace Liquid Cup) 100 mg BID GTB Last administered on 11/05/18 08:41; Admin Dose 100 MG; Start 11/02/18 at 09:00 Collagenase (Santyl) 1 applic DAILY TOP Last administered on 11/05/18 08:42; Admin Dose 1 APPLIC; Start 11/03/18 at 09:00 Midodrine (Proamatine) 5 mg TID@09,13,17 GTB Last administered on 11/03/18 02:24; Admin Dose 5 MG; Start 11/03/18 at 02:30 Vancomycin HCl 250 ml @ 125 mls/hr Q24H IVPB Last administered on 11/05/18 11:25; Admin Dose 125 MLS/HR; Start 11/04/18 at 12:00 Potassium Chloride (Potassium Chloride Pwd/Soln) 20 meq BID GTB Last administered on 11/05/18 08:42; Admin Dose 20 MEQ; Start 11/04/18 at 09:00 Potassium Chloride/Dextrose 1,000 ml @ 60 mls/hr [id number] IV Last administered on 11/05/18 10:30; Admin Dose 60 MLS/HR; Start 11/04/18 at 14:30 Lorazepam (Ativan) 1 mg Q4H PRN IV AGITATION Last administered on 11/05/18 11:36; Admin Dose 1 MG; Start 11/05/18 at 11:30 Morphine Sulfate (morphine) 1 mg Q4H PRN IV SEVERE PAIN LEVEL 7-10 Last administered on 11/05/18 13:07; Admin Dose 1 MG; Start 11/05/18 at 13:30 YURY YOON NP November 05, 2018 13:44
--- NOTE | 2018-11-05 14:29 | CONS ---
Assessment/Plan Assessment/Plan Hospital Course (Demo Recall) IMPRESSION: 1. Non-ST elevation myocardial infarction with up trending cardiac enzymes likely demand infarct in the setting of significant tachycardia and fevers, sepsis.-downtrending significantly 2. Abnormal electrocardiogram with nonspecific ST-T abnormalities. 3. Tachycardia, likely due to the patient's underlying sepsis-improved overall 4. Sepsis with the Gram-positive cocci group in clusters growing in blood and Gram-negative rods growing in urine. 5. Urinary tract infection. 6. Chronic respiratory failure, status post tracheostomy. 7. s/p G-tube. 8. Chronic anoxic encephalopathy. 9. Leukocytosis significantly improved. 10. Anemia-worsening 11. Hypernatremia-ongoing Recc: -Tele -Contineu asa -Contineu low dose BB -trend enzymes -lovenox held due to worsening anemia Consultation Date/Type/Reason Admit Date/Time October 30, 2018 at 08:15 Initial Consult Date 10/31/18 Type of Consult Cardiology Reason for Consultation Nstemi Requesting Provider: RICHARD GIRARD MD Date/Time of Note DATE: 11/05/18 TIME: 14:26 Exam/Review of Systems Vital Signs Vitals Vital Signs Date Temp Pulse Resp B/P (MAP) Pulse Ox O2 O2 Flow FiO2 Time Delivery Rate 11/05/18 50 14:13 11/05/18 101 36 100 13:35 11/05/18 100.8 118/79 11:23 (92) 11/04/18 [place] 07:45 l Ventilato r Trach Collar Intake and Output 11/04/18 11/04/18 11/05/18 1515:00 23:00 07:00 IntakeIntake Total 200 ml 1370 ml 1940 ml OutputOutput Total 1800 ml 1600 ml BalanceBalance 200 ml -430 ml 340 ml Exam Exam Review of Systems: CONSTITUTIONAL: No fevers, chills. PULMONARY: No sob CARDIOVASCULAR: No chest pain/palpitations GASTROINTESTINAL: No nausea/vomiting. GENITOURINARY: No hematuria/dysuria. MUSCULOSKELETAL: No myagias/arthalgias. PSYCHIATRIC: The patient denies depression. NEUROLOGIC: No weakness Constitutional: alert Psych: no complaints Head: normocephalic ENMT: mucosa pink and moist Neck: supple, jvd (9 cm water) Respiratory: diminished breath sounds Cardiovascular: regular rate and rhythm Gastrointestinal: soft, non-tender Musculoskeletal: muscle tone (normal) Extremities: edema (none) Labs Result Diagram: 11/05/18 0531 11/05/18 0531 Results 24hrs Laboratory Tests Test 11/05/18 05:31 11/05/18 13:02 White Blood Count 6.1 Red Blood Count 3.11 L Hemoglobin 7.2 L Hematocrit 23.8 L Mean Corpuscular Volume 76.5 L Mean Corpuscular Hemoglobin 23.2 L Mean Corpuscular Hemoglobin Concent 30.3 L Red Cell Distribution Width 17.1 H Platelet Count 164 Mean Platelet Volume 12.7 H Immature Granulocytes % 1.000 H Neutrophils % 81.8 H Segmented Neutrophils % (Manual) 67 Band Neutrophils % (Manual) 5 H Lymphocytes % 11.3 L Lymphocytes % (Manual) 20 Reactive Lymphocytes % (Manual) 3 H Monocytes % 3.9 Monocytes % (Manual) 5 Eosinophils % 1.8 Basophils % 0.2 Nucleated Red Blood Cells % 0.0 Immature Granulocytes # 0.060 H Neutrophils # 5.0 Neutrophils # (Manual) 4.1 Band Neutrophils # 0.3 Lymphocytes (Manual) 1.2 Lymphocytes # 0.7 L Reactive Lymphocytes # 0.1 H Monocytes # 0.2 L Monocytes # (Manual) 0.3 Eosinophils # 0.1 Basophils # 0.0 Nucleated Red Blood Cells # 0.0 Platelet Estimate NORMAL Polychromasia 1+ Poikilocytosis 1+ Anisocytosis 1+ Target Cells 1+ Sodium Level 147 H Potassium Level 3.3 L Chloride Level 118 H Carbon Dioxide Level 22 Anion Gap 7 Blood Urea Nitrogen 16 Creatinine 0.51 L Est Glomerular Filtrat Rate mL/min > 60 Glucose Level 123 Calcium Level 8.8 Magnesium Level 2.2 Lipase 872 H Blood Gas Specimen Source Blood arterial Arterial Blood Date Drawn 11/05/2018 1:30:29 PM Arterial Blood pH (Temp corrected) 7.469 H Arterial Blood pCO2 (Temp correct) 32.2 L Arterial Blood pO2 (Temp corrected) 144.6 H Arterial Blood HCO3 22.9 Arterial Blood Base Excess -0.7 Arterial Blood Oxygen Saturation 98.9 H Zechariah Test ACCEPTAB Arterial Blood Gas Puncture Site Right Radial Arterial Blood Carboxyhemoglobin 0.2 Arterial Blood Methemoglobin 0.2 Blood Gas A-a O2 Differential 319.9 H Oxyhemoglobin Percent 98.5 Blood Gas Temperature 37.0 Blood Gas Respiration Rate 14.0 Blood Gas Actual Respiration Rate 31 Blood Gas Modality VENT - AC FiO2 70.0 Blood Gas Tidal Volume 500.0 Blood Gas Low PEEP Setting 5.0 Blood Gas Notified Whom TM Blood Gas Notified Time 11/05/2018 1:55:17 PM Medications Medications Current Medications Albuterol (Proventil 0.083% (Neb)) 2.5 mg Q3H RESP THERAPY PRN NEB WHEEZING AND SOB; Start 10/30/18 at 22:00 Albuterol (Proventil 0.083% (Neb)) 2.5 mg Q6H RESP THERAPY PRN NEB WHEEZING AND SOB; Start 10/30/18 at 22:00 Ascorbic Acid (Vitamin C) 500 mg DAILY GTB Last administered on 11/05/18 08:42; Admin Dose 500 MG; Start 10/31/18 at 09:00 Metoclopramide HCl (Reglan) 10 mg Q6H PRN GTB NAUSEA AND/OR VOMITING; Start 10/30/18 at 22:00 Multivitamins (Multivitamin) 30 ml DAILY GTB Last administered on 11/05/18 08:41; Admin Dose 30 ML; Start 10/31/18 at 09:00 Pantoprazole (Protonix Tab) 40 mg DAILY@0600 PO Last administered on 11/05/18 06:00; Admin Dose 40 MG; Start 10/31/18 at 06:00 Ferrous Sulfate (Feosol Liquid Cup) 300 mg BID PO Last administered on 11/05/18 08:41; Admin Dose 300 MG; Start 10/30/18 at 22:00 Levetiracetam (Keppra Liquid) 1,500 mg BID GTB Last administered on 11/05/18 08:41; Admin Dose 1,500 MG; Start 10/30/18 at 22:30 Acetaminophen (Tylenol Liquid) 650 mg Q4H PRN GTB MILD PAIN(1-3)OR ELEVATED TEMP Last administered on 11/05/18 08:41; Admin Dose 650 MG; Start 10/31/18 at 00:00 Vancomycin HCl (Vanco Iv Per Pharmacy) VANCOMYCIN PER PHARMACY PER PROTOCOL XX ; Start 10/31/18 at 07:00 Nystatin (Nystatin Oint) 1 applic BID TOP Last administered on 11/05/18 08:43; Admin Dose 1 APPLIC; Start 10/31/18 at 21:00 Aspirin (Aspirin) 81 mg DAILY PO Last administered on 11/05/18 08:42; Admin Dose 81 MG; Start 11/01/18 at 09:00 Metoprolol Tartrate (Lopressor) 25 mg BID GTB Last administered on 11/05/18 08:42; Admin Dose 25 MG; Start 11/01/18 at 21:00 Tramadol HCl (Ultram) 50 mg Q4 PRN PO MODERATE PAIN LEVEL 4-6 Last administered on 11/05/18 03:18; Admin Dose 50 MG; Start 11/01/18 at 21:00 Metoprolol Tartrate (Lopressor) 5 mg Q4 PRN IV ELEVATED HEART RATE; Start 11/01/18 at 21:00 Docusate Sodium (Colace Liquid Cup) 100 mg BID GTB Last administered on 11/05/18 08:41; Admin Dose 100 MG; Start 11/02/18 at 09:00 Collagenase (Santyl) 1 applic DAILY TOP Last administered on 11/05/18 08:42; Admin Dose 1 APPLIC; Start 11/03/18 at 09:00 Midodrine (Proamatine) 5 mg TID@09,13,17 GTB Last administered on 11/03/18 02:24; Admin Dose 5 MG; Start 11/03/18 at 02:30 Vancomycin HCl 250 ml @ 125 mls/hr Q24H IVPB Last administered on 11/05/18 11:25; Admin Dose 125 MLS/HR; Start 11/04/18 at 12:00 Potassium Chloride (Potassium Chloride Pwd/Soln) 20 meq BID GTB Last administered on 11/05/18 08:42; Admin Dose 20 MEQ; Start 11/04/18 at 09:00 Potassium Chloride/Dextrose 1,000 ml @ 60 mls/hr [id number] IV Last administered on 11/05/18 10:30; Admin Dose 60 MLS/HR; Start 11/04/18 at 14:30 Lorazepam (Ativan) 1 mg Q4H PRN IV AGITATION Last administered on 11/05/18 11:36; Admin Dose 1 MG; Start 11/05/18 at 11:30 Morphine Sulfate (morphine) 1 mg Q4H PRN IV SEVERE PAIN LEVEL 7-10 Last administered on 11/05/18at 13:07; Admin Dose 1 MG; Start 11/05/18 at 13:30 Piperacillin Sod/ Tazobactam Sod 100 ml @ 200 mls/hr Q8 IVPB ; Start 11/05/18 at 14:00 ELOINA MISHRA November 05, 2018 14:29
[2018-11-05] MEDS: PIPER-TAZO 3.375 GM IV (PMX) 100 ML IVPB SCH ×2 (15:11→22:56)
--- NOTE | 2018-11-05 15:52 | CONS ---
Consult Date/Type/Reason Admit Date/Time October 30, 2018 at 08:15 Initial Consult Date 11/03/18 Type of Consult Pulmonary Requesting Provider: RICHARD GIRARD MD Date/Time of Note DATE: 11/05/18 TIME: 15:51 Subjective Continues mechanical ventilation remains febrile tachypneic. Neurologically unchanged. Objective Vital Signs Date Temp Pulse Resp B/P (MAP) Pulse Ox O2 O2 Flow FiO2 Time Delivery Rate 11/05/18 101.8 15:26 11/05/18 112 41 94 50 15:15 11/05/18 96/53 (67) 15:11 11/04/18 [place] 07:45 l Ventilato r Trach Collar Intake and Output 11/04/18 11/04/18 11/05/18 1515:00 23:00 07:00 IntakeIntake Total 200 ml 1370 ml 1940 ml OutputOutput Total 1800 ml 1600 ml BalanceBalance 200 ml -430 ml 340 ml Exam GENERAL: Chronically ill-appearing gentleman on mechanical ventilation VITAL SIGNS: per chart NECK: Supple. No JVD or lymphadenopathy. CARDIAC EXAM: S1, S2. No added sounds or murmurs. CHEST: Diminished air entry bilaterally ABDOMEN: Soft, nontender. No guarding or rebound. EXTREMITIES: No cyanosis, clubbing or edema. NEUROLOGIC: Contractures with generalized weakness Vent Setting Ventilator Support Mode: AC, VC plus Fraction of Inspired Oxygen pe: 50 Positive End Expiratory Pressu: 5.0 Results/Medications Result Diagram: 11/05/18 0531 11/05/18 0531 Results 24 hrs Laboratory Tests Test 11/05/18 05:31 11/05/18 13:02 White Blood Count 6.1 Red Blood Count 3.11 L Hemoglobin 7.2 L Hematocrit 23.8 L Mean Corpuscular Volume 76.5 L Mean Corpuscular Hemoglobin 23.2 L Mean Corpuscular Hemoglobin Concent 30.3 L Red Cell Distribution Width 17.1 H Platelet Count 164 Mean Platelet Volume 12.7 H Immature Granulocytes % 1.000 H Neutrophils % 81.8 H Segmented Neutrophils % (Manual) 67 Band Neutrophils % (Manual) 5 H Lymphocytes % 11.3 L Lymphocytes % (Manual) 20 Reactive Lymphocytes % (Manual) 3 H Monocytes % 3.9 Monocytes % (Manual) 5 Eosinophils % 1.8 Basophils % 0.2 Nucleated Red Blood Cells % 0.0 Immature Granulocytes # 0.060 H Neutrophils # 5.0 Neutrophils # (Manual) 4.1 Band Neutrophils # 0.3 Lymphocytes (Manual) 1.2 Lymphocytes # 0.7 L Reactive Lymphocytes # 0.1 H Monocytes # 0.2 L Monocytes # (Manual) 0.3 Eosinophils # 0.1 Basophils # 0.0 Nucleated Red Blood Cells # 0.0 Platelet Estimate NORMAL Polychromasia 1+ Poikilocytosis 1+ Anisocytosis 1+ Target Cells 1+ Sodium Level 147 H Potassium Level 3.3 L Chloride Level 118 H Carbon Dioxide Level 22 Anion Gap 7 Blood Urea Nitrogen 16 Creatinine 0.51 L Est Glomerular Filtrat Rate mL/min > 60 Glucose Level 123 Calcium Level 8.8 Magnesium Level 2.2 Lipase 872 H Blood Gas Specimen Source Blood arterial Arterial Blood Date Drawn 11/05/2018 1:30:29 PM Arterial Blood pH (Temp corrected) 7.469 H Arterial Blood pCO2 (Temp correct) 32.2 L Arterial Blood pO2 (Temp corrected) 144.6 H Arterial Blood HCO3 22.9 Arterial Blood Base Excess -0.7 Arterial Blood Oxygen Saturation 98.9 H Zechariah Test ACCEPTAB Arterial Blood Gas Puncture Site Right Radial Arterial Blood Carboxyhemoglobin 0.2 Arterial Blood Methemoglobin 0.2 Blood Gas A-a O2 Differential 319.9 H Oxyhemoglobin Percent 98.5 Blood Gas Temperature 37.0 Blood Gas Respiration Rate 14.0 Blood Gas Actual Respiration Rate 31 Blood Gas Modality VENT - AC FiO2 70.0 Blood Gas Tidal Volume 500.0 Blood Gas Low PEEP Setting 5.0 Blood Gas Notified Whom TM Blood Gas Notified Time 11/05/2018 1:55:17 PM Medications Current Medications Albuterol (Proventil 0.083% (Neb)) 2.5 mg Q3H RESP THERAPY PRN NEB WHEEZING AND SOB; Start 10/30/18 at 22:00 Albuterol (Proventil 0.083% (Neb)) 2.5 mg Q6H RESP THERAPY PRN NEB WHEEZING AND SOB; Start 10/30/18 at 22:00 Ascorbic Acid (Vitamin C) 500 mg DAILY GTB Last administered on 11/05/18at 08:42; Admin Dose 500 MG; Start 10/31/18 at 09:00 Metoclopramide HCl (Reglan) 10 mg Q6H PRN GTB NAUSEA AND/OR VOMITING; Start 10/30/18 at 22:00 Multivitamins (Multivitamin) 30 ml DAILY GTB Last administered on 11/05/18 08:41; Admin Dose 30 ML; Start 10/31/18 at 09:00 Pantoprazole (Protonix Tab) 40 mg DAILY@0600 PO Last administered on 11/05/18 06:00; Admin Dose 40 MG; Start 10/31/18 at 06:00 Ferrous Sulfate (Feosol Liquid Cup) 300 mg BID PO Last administered on 11/05/18 08:41; Admin Dose 300 MG; Start 10/30/18 at 22:00 Levetiracetam (Keppra Liquid) 1,500 mg BID GTB Last administered on 11/05/18 08:41; Admin Dose 1,500 MG; Start 10/30/18 at 22:30 Acetaminophen (Tylenol Liquid) 650 mg Q4H PRN GTB MILD PAIN(1-3)OR ELEVATED TEMP Last administered on 11/05/18 15:26; Admin Dose 650 MG; Start 10/31/18 at 00:00 Vancomycin HCl (Vanco Iv Per Pharmacy) VANCOMYCIN PER PHARMACY PER PROTOCOL XX ; Start 10/31/18 at 07:00 Nystatin (Nystatin Oint) 1 applic BID TOP Last administered on 11/05/18 08:43; Admin Dose 1 APPLIC; Start 10/31/18 at 21:00 Aspirin (Aspirin) 81 mg DAILY PO Last administered on 11/05/18 08:42; Admin Dose 81 MG; Start 11/01/18 at 09:00 Metoprolol Tartrate (Lopressor) 25 mg BID GTB Last administered on 11/05/18 08:42; Admin Dose 25 MG; Start 11/01/18 at 21:00 Tramadol HCl (Ultram) 50 mg Q4 PRN PO MODERATE PAIN LEVEL 4-6 Last administered on 11/05/18 03:18; Admin Dose 50 MG; Start 11/01/18 at 21:00 Metoprolol Tartrate (Lopressor) 5 mg Q4 PRN IV ELEVATED HEART RATE; Start 11/01/18 at 21:00 Docusate Sodium (Colace Liquid Cup) 100 mg BID GTB Last administered on 11/05/18 08:41; Admin Dose 100 MG; Start 11/02/18 at 09:00 Collagenase (Santyl) 1 applic DAILY TOP Last administered on 11/05/18 08:42; Admin Dose 1 APPLIC; Start 11/03/18 at 09:00 Midodrine (Proamatine) 5 mg TID@09,13,17 GTB Last administered on 11/03/18 02:24; Admin Dose 5 MG; Start 11/03/18 at 02:30 Vancomycin HCl 250 ml @ 125 mls/hr Q24H IVPB Last administered on 11/05/18 11:25; Admin Dose 125 MLS/HR; Start 11/04/18 at 12:00 Potassium Chloride (Potassium Chloride Pwd/Soln) 20 meq BID GTB Last administe red on 11/05/18 08:42; Admin Dose 20 MEQ; Start 11/04/18 at 09:00 Potassium Chloride/Dextrose 1,000 ml @ 60 mls/hr [id number] IV Last administered on 11/05/18 10:30; Admin Dose 60 MLS/HR; Start 11/04/18 at 14:30 Lorazepam (Ativan) 1 mg Q4H PRN IV AGITATION Last administered on 11/05/18 11:36; Admin Dose 1 MG; Start 11/05/18 at 11:30 Morphine Sulfate (morphine) 1 mg Q4H PRN IV SEVERE PAIN LEVEL 7-10 Last administered on 11/05/18 13:07; Admin Dose 1 MG; Start 11/05/18 at 13:30 Piperacillin Sod/ Tazobactam Sod 100 ml @ 200 mls/hr Q8 IVPB Last administered on 11/05/18 15:11; Admin Dose 200 MLS/HR; Start 11/05/18 at 14:00 Assessment/Plan Hospital Course (Demo Recall) Assessment 1. Acute on chronic hypoxic respiratory failure 2. Chronic encephalopathy 3. Anemia of chronic disease 4. Hypernatremia 5. Recurrent sepsis polymicrobial Plan 1. Continue mechanical ventilation adequate pain control 2. Antibiotics per primary team 3. Free water and correct electrolyte imbalance 4. Monitor H&H [facility] NEWTON MD, [facility] November 05, 2018 15:52
[2018-11-06] VITALS (21 sets, daily range): BP systolic 90–105; BP diastolic 51–58; PULSE 69–97; RESP 19–34
[2018-11-06] MEDS: PANTOPRAZOLE (EC) 40 MG TAB PO SCH (05:23)
[2018-11-06] MEDS: PIPER-TAZO 3.375 GM IV (PMX) 100 ML IVPB SCH ×3 (05:24→21:26)
[2018-11-06] MEDS: D5W + KCL 20 MEQ 1,000 ML IV SCH ×2 (05:32→15:51)
[2018-11-06] MEDS: DOCUSATE SODIUM 10 MG/ML (10ML CUP) GTB SCH ×2 (08:20→21:00)
[2018-11-06] MEDS: FERROUS SULFATE 60 MG/ML 5ML CUP PO SCH ×2 (08:26→21:25)
[2018-11-06] MEDS: MULTIVITAMINS 30 ML CUP GTB SCH (08:26)
[2018-11-06] MEDS: POTASSIUM CHLORIDE 20 MEQ POWDER FOR ORAL SOLN GTB SCH ×2 (08:27→21:25)
[2018-11-06] MEDS: ASPIRIN 81 MG TAB PO SCH (08:27)
[2018-11-06] MEDS: COLLAGENASE 5 GM (UD JAR) TOP SCH (08:27)
[2018-11-06] MEDS: ASCORBIC ACID 500 MG TAB GTB SCH (08:27)
[2018-11-06] MEDS: MIDODRINE 5 MG TAB GTB SCH ×3 (08:27→17:05)
[2018-11-06] MEDS: BALSAM PERU/CASTOR OIL 60 GM TUBE TOP SCH (08:28)
[2018-11-06] MEDS: METOPROLOL 25 MG TAB GTB SCH ×2 (08:28→21:25)
[2018-11-06] MEDS: NYSTATIN 15 GM OINT TOP SCH ×2 (08:28→21:26)
[2018-11-06] MEDS: LEVETIRACETAM (100 MG/ML) 5ML CUP GTB SCH ×2 (08:30→21:24)
[2018-11-06] MEDS: ACETAMINOPHEN 650MG/20.3ML CUP GTB PRN (09:24)
--- NOTE | 2018-11-06 11:11 | PN ---
Date/Time of Note Date/Time of Note DATE: 11/06/18 TIME: 11:10 Assessment/Plan VTE Prophylaxis Risk score (from [facility] [place])>0 risk: 6 SCD applied (from [facility] [place]): No SCD contraindicated: other Pharmacological prophylaxis: LMWH Lines/Catheters IV [facility] Type [facility]from [facility] Peripheral IV Urinary Cath still in place: Yes Reason Cath still needed: skin wounds contaminated by urine Assessment/Plan Hospital Course - hYPOKALEMIA -Urinary retention. Dr. Regan is following in urology consultation. -Hypernatremia, continue free water flushes where G-tube. -Sepsis with gram-positive cocci bacteremia MDR Proteus UTI. Continue antibiot ics per ID. Dr. Matias is following in infection disease consultation. -Non-ST elevation myocardial infarction, continue aspirin, beta-samantha. Lovenox is held due to thrombocytopenia. Dr. Flor is following in cardiology consultation. -Pancreatitis, resolving. Dr. Walton is following in gastroenterology consultation. -Ventilator dependent respiratory failure with tracheostomy. -Anoxic encephalopathy status post cardiac arrest in 2009 -Ventilator dependent respiratory failure -Dysphagia with PEG -Seizure disorder, continue Keppra. -Schizophrenia -Multiple wounds, continue current wound care, offloading. Result Diagram: 11/06/18 0532 11/06/18 0532 Results 24hrs Laboratory Tests Test 11/05/18 13:02 11/06/18 05:32 Blood Gas Specimen Source Blood arterial Arterial Blood Date Drawn 11/05/2018 1:30:29 PM Arterial Blood pH (Temp corrected) 7.469 H Arterial Blood pCO2 (Temp correct) 32.2 L Arterial Blood pO2 (Temp corrected) 144.6 H Arterial Blood HCO3 22.9 Arterial Blood Base Excess -0.7 Arterial Blood Oxygen Saturation 98.9 H Zechariah Test ACCEPTAB Arterial Blood Gas Puncture Site Right Radial Arterial Blood Carboxyhemoglobin 0.2 Arterial Blood Methemoglobin 0.2 Blood Gas A-a O2 Differential 319.9 H Oxyhemoglobin Percent 98.5 Blood Gas Temperature 37.0 Blood Gas Respiration Rate 14.0 Blood Gas Actual Respiration Rate 31 Blood Gas Modality VENT - AC FiO2 70.0 Blood Gas Tidal Volume 500.0 Blood Gas Low PEEP Setting 5.0 Blood Gas Notified Whom TM Blood Gas Notified Time 11/05/2018 1:55:17 PM White Blood Count 6.1 Red Blood Count 2.97 L Hemoglobin 6.8 *L Hematocrit 23.1 L Mean Corpuscular Volume 77.8 L Mean Corpuscular Hemoglobin 22.9 L Mean Corpuscular Hemoglobin Concent 29.4 L Red Cell Distribution Width 17.1 H Platelet Count 213 # Mean Platelet Volume 12.5 H Immature Granulocytes % 1.600 H Neutrophils % Segmented Neutrophils % (Manual) 59 Band Neutrophils % (Manual) 7 H Lymphocytes % Lymphocytes % (Manual) 29 Monocytes % Monocytes % (Manual) 4 Eosinophils % Eosinophils % (Manual) 1 Basophils % Nucleated Red Blood Cells % 0.0 Immature Granulocytes # 0.100 H Neutrophils # Neutrophils # (Manual) 3.6 Band Neutrophils # 0.4 Lymphocytes (Manual) 1.7 Lymphocytes # Monocytes # Monocytes # (Manual) 0.2 L Eosinophils # Basophils # Nucleated Red Blood Cells # Platelet Estimate NORMAL Giant Platelets 9 H Polychromasia 1+ Poikilocytosis 1+ Anisocytosis 1+ Microcytosis 1+ Ovalocytes 1+ Sodium Level 143 Potassium Level 4.0 Chloride Level 113 H Carbon Dioxide Level 24 Anion Gap 6 Blood Urea Nitrogen 18 Creatinine 0.53 L Est Glomerular Filtrat Rate mL/min > 60 Glucose Level 122 Calcium Level 8.6 Lipase 1371 H Subjective 24 Hr Interval Summary Free Text/Dictation Patient sedated, on vent via trach Exam/Review of Systems Exam Vitals Vital Signs Date Temp Pulse Resp B/P (MAP) Pulse Ox O2 O2 Flow FiO2 Time Delivery Rate 11/06/18 98.9 10:09 11/06/18 75 26 98 40 09:10 11/06/18 99/56 (70) Trach 08:00 Collar Intake and Output 11/05/18 11/05/18 11/06/18 1515:00 23:00 07:00 IntakeIntake Total 250 ml 1400 ml 1300 ml OutputOutput Total 600 ml 2600 ml BalanceBalance 250 ml 800 ml -1300 ml Constitutional: well developed Head: normocephalic, atraumatic Neck: supple Respiratory: diminished breath sounds Cardiovascular: regular rate and rhythm Gastrointestinal: soft, non-tender Extremities: normal pulses Results Results 24hrs Laboratory Tests Test 11/05/18 13:02 11/06/18 05:32 Blood Gas Specimen Source Blood arterial Arterial Blood Date Drawn 11/05/2018 1:30:29 PM Arterial Blood pH (Temp corrected) 7.469 H Arterial Blood pCO2 (Temp correct) 32.2 L Arterial Blood pO2 (Temp corrected) 144.6 H Arterial Blood HCO3 22.9 Arterial Blood Base Excess -0.7 Arterial Blood Oxygen Saturation 98.9 H Zechariah Test ACCEPTAB Arterial Blood Gas Puncture Site Right Radial Arterial Blood Carboxyhemoglobin 0.2 Arterial Blood Methemoglobin 0.2 Blood Gas A-a O2 Differential 319.9 H Oxyhemoglobin Percent 98.5 Blood Gas Temperature 37.0 Blood Gas Respiration Rate 14.0 Blood Gas Actual Respiration Rate 31 Blood Gas Modality VENT - AC FiO2 70.0 Blood Gas Tidal Volume 500.0 Blood Gas Low PEEP Setting 5.0 Blood Gas Notified Whom TM Blood Gas Notified Time 11/05/2018 1:55:17 PM White Blood Count 6.1 Red Blood Count 2.97 L Hemoglobin 6.8 *L Hematocrit 23.1 L Mean Corpuscular Volume 77.8 L Mean Corpuscular Hemoglobin 22.9 L Mean Corpuscular Hemoglobin Concent 29.4 L Red Cell Distribution Width 17.1 H Platelet Count 213 # Mean Platelet Volume 12.5 H Immature Granulocytes % 1.600 H Neutrophils % Segmented Neutrophils % (Manual) 59 Band Neutrophils % (Manual) 7 H Lymphocytes % Lymphocytes % (Manual) 29 Monocytes % Monocytes % (Manual) 4 Eosinophils % Eosinophils % (Manual) 1 Basophils % Nucleated Red Blood Cells % 0.0 Immature Granulocytes # 0.100 H Neutrophils # Neutrophils # (Manual) 3.6 Band Neutrophils # 0.4 Lymphocytes (Manual) 1.7 Lymphocytes # Monocytes # Monocytes # (Manual) 0.2 L Eosinophils # Basophils # Nucleated Red Blood Cells # Platelet Estimate NORMAL Giant Platelets 9 H Polychromasia 1+ Poikilocytosis 1+ Anisocytosis 1+ Microcytosis 1+ Ovalocytes 1+ Sodium Level 143 Potassium Level 4.0 Chloride Level 113 H Carbon Dioxide Level 24 Anion Gap 6 Blood Urea Nitrogen 18 Creatinine 0.53 L Est Glomerular Filtrat Rate mL/min > 60 Glucose Level 122 Calcium Level 8.6 Lipase 1371 H Medications Medication Current Medications Albuterol (Proventil 0.083% (Neb)) 2.5 mg Q3H RESP THERAPY PRN NEB WHEEZING AND SOB; Start 10/30/18 at 22:00 Albuterol (Proventil 0.083% (Neb)) 2.5 mg Q6H RESP THERAPY PRN NEB WHEEZING AND SOB; Start 10/30/18 at 22:00 Ascorbic Acid (Vitamin C) 500 mg DAILY GTB Last administered on 11/06/18 08:27; Admin Dose 500 MG; Start 10/31/18 at 09:00 Metoclopramide HCl (Reglan) 10 mg Q6H PRN GTB NAUSEA AND/OR VOMITING; Start 10/30/18 at 22:00 Multivitamins (Multivitamin) 30 ml DAILY GTB Last administered on 11/06/18 08:26; Admin Dose 30 ML; Start 10/31/18 at 09:00 Pantoprazole (Protonix Tab) 40 mg DAILY@0600 PO Last administered on 11/06/18 05:23; Admin Dose 40 MG; Start 10/31/18 at 06:00 Ferrous Sulfate (Feosol Liquid Cup) 300 mg BID PO Last administered on 11/06/18 08:26; Admin Dose 300 MG; Start 10/30/18 at 22:00 Levetiracetam (Keppra Liquid) 1,500 mg BID GTB Last administered on 11/06/18 08:30; Admin Dose 1,500 MG; Start 10/30/18 at 22:30 Acetaminophen (Tylenol Liquid) 650 mg Q4H PRN GTB MILD PAIN(1-3)OR ELEVATED TEMP Last administered on 11/06/18 09:24; Admin Dose 650 MG; Start 10/31/18 at 00:00 Vancomycin HCl (Vanco Iv Per Pharmacy) VANCOMYCIN PER PHARMACY PER PROTOCOL XX ; Start 10/31/18 at 07:00 Nystatin (Nystatin Oint) 1 applic BID TOP Last administered on 11/06/18 08:28; Admin Dose 1 APPLIC; Start 10/31/18 at 21:00 Aspirin (Aspirin) 81 mg DAILY PO Last administered on 11/06/18 08:27; Admin Dose 81 MG; Start 11/01/18 at 09:00 Metoprolol Tartrate (Lopressor) 25 mg BID GTB Last administered on 11/05/18 08:42; Admin Dose 25 MG; Start 11/01/18 at 21:00 Tramadol HCl (Ultram) 50 mg Q4 PRN PO MODERATE PAIN LEVEL 4-6 Last administered on 11/05/18 03:18; Admin Dose 50 MG; Start 11/01/18 at 21:00 Metoprolol Tartrate (Lopressor) 5 mg Q4 PRN IV ELEVATED HEART RATE; Start 11/01/18 at 21:00 Docusate Sodium (Colace Liquid Cup) 100 mg BID GTB Last administered on 11/05/18 20:18; Admin Dose 100 MG; Start 11/02/18 at 09:00 Collagenase (Santyl) 1 applic DAILY TOP Last administered on 11/06/18 08:27; Admin Dose 1 APPLIC; Start 11/03/18 at 09:00 Midodrine (Proamatine) 5 mg TID@,13,17 GTB Last administered on 11/06/18 08:27; Admin Dose 5 MG; Start 11/03/18 at 02:30 Vancomycin HCl 250 ml @ 125 mls/hr Q24H IVPB Last administered on 11/05/18 11:25; Admin Dose 125 MLS/HR; Start 11/04/18 at 12:00 Potassium Chloride (Potassium Chloride Pwd/Soln) 20 meq BID GTB Last administered on 11/06/18 08:27; Admin Dose 20 MEQ; Start 11/04/18 at 09:00 Potassium Chloride/Dextrose 1,000 ml @ 60 mls/hr [id number] IV Last administered on 11/06/18 05:32; Admin Dose 60 MLS/HR; Start 11/04/18 at 14:30 Lorazepam (Ativan) 1 mg Q4H PRN IV AGITATION Last administered on 11/05/18 11:36; Admin Dose 1 MG; Start 11/05/18 at 11:30 Morphine Sulfate (morphine) 1 mg Q4H PRN IV SEVERE PAIN LEVEL 7-10 Last administered on 11/05/18 13:07; Admin Dose 1 MG; Start 11/05/18 at 13:30 Piperacillin Sod/ Tazobactam Sod 100 ml @ 200 mls/hr Q8 IVPB Last administered on 11/06/18 05:24; Admin Dose 200 MLS/HR; Start 11/05/18 at 14:00 JD POWELL Nov 06, 2018 11:11
[2018-11-06] MEDS ORDERED: SOD CHLORIDE 0.9% 500 ML IV STA (11:34)
--- NOTE | 2018-11-06 11:45 | CONS ---
Consultation Date/Type/Reason Admit Date/Time October 30, 2018 at 08:15 Initial Consult Date Type of Consult Cardiology Requesting Provider: RICHARD GIRARD MD Date/Time of Note DATE: 11/06/18 TIME: 11:45 24 HR Interval Summary Free Text/Dictation Vs reviewed, stable - H/H low Exam/Review of Systems Vital Signs Vitals Vital Signs Date Temp Pulse Resp B/P (MAP) Pulse Ox O2 O2 Flow FiO2 Time Delivery Rate 11/06/18 75 28 94 40 11:15 11/06/18 98.9 10:09 11/06/18 99/56 (70) Trach 08:00 Collar Intake and Output 11/05/18 11/05/18 11/06/18 1515:00 23:00 07:00 IntakeIntake Total 250 ml 1400 ml 1300 ml OutputOutput Total 600 ml 2600 ml BalanceBalance 250 ml 800 ml -1300 ml Labs Result Diagram: 11/06/18 0532 11/06/18 0532 Results 24hrs Laboratory Tests Test 11/05/18 13:02 11/06/18 05:32 Blood Gas Specimen Source Blood arterial Arterial Blood Date Drawn 11/05/2018 1:30:29 PM Arterial Blood pH (Temp corrected) 7.469 H Arterial Blood pCO2 (Temp correct) 32.2 L Arterial Blood pO2 (Temp corrected) 144.6 H Arterial Blood HCO3 22.9 Arterial Blood Base Excess -0.7 Arterial Blood Oxygen Saturation 98.9 H Zechariah Test ACCEPTAB Arterial Blood Gas Puncture Site Right Radial Arterial Blood Carboxyhemoglobin 0.2 Arterial Blood Methemoglobin 0.2 Blood Gas A-a O2 Differential 319.9 H Oxyhemoglobin Percent 98.5 Blood Gas Temperature 37.0 Blood Gas Respiration Rate 14.0 Blood Gas Actual Respiration Rate 31 Blood Gas Modality VENT - AC FiO2 70.0 Blood Gas Tidal Volume 500.0 Blood Gas Low PEEP Setting 5.0 Blood Gas Notified Whom TM Blood Gas Notified Time 11/05/2018 1:55:17 PM White Blood Count 6.1 Red Blood Count 2.97 L Hemoglobin 6.8 *L Hematocrit 23.1 L Mean Corpuscular Volume 77.8 L Mean Corpuscular Hemoglobin 22.9 L Mean Corpuscular Hemoglobin Concent 29.4 L Red Cell Distribution Width 17.1 H Platelet Count 213 # Mean Platelet Volume 12.5 H Immature Granulocytes % 1.600 H Neutrophils % Segmented Neutrophils % (Manual) 59 Band Neutrophils % (Manual) 7 H Lymphocytes % Lymphocytes % (Manual) 29 Monocytes % Monocytes % (Manual) 4 Eosinophils % Eosinophils % (Manual) 1 Basophils % Nucleated Red Blood Cells % 0.0 Immature Granulocytes # 0.100 H Neutrophils # Neutrophils # (Manual) 3.6 Band Neutrophils # 0.4 Lymphocytes (Manual) 1.7 Lymphocytes # Monocytes # Monocytes # (Manual) 0.2 L Eosinophils # Basophils # Nucleated Red Blood Cells # Platelet Estimate NORMAL Giant Platelets 9 H Polychromasia 1+ Poikilocytosis 1+ Anisocytosis 1+ Microcytosis 1+ Ovalocytes 1+ Sodium Level 143 Potassium Level 4.0 Chloride Level 113 H Carbon Dioxide Level 24 Anion Gap 6 Blood Urea Nitrogen 18 Creatinine 0.53 L Est Glomerular Filtrat Rate mL/min > 60 Glucose Level 122 Calcium Level 8.6 Lipase 1371 H Medications Medications Current Medications Albuterol (Proventil 0.083% (Neb)) 2.5 mg Q3H RESP THERAPY PRN NEB WHEEZING AND SOB; Start 10/30/18 at 22:00 Albuterol (Proventil 0.083% (Neb)) 2.5 mg Q6H RESP THERAPY PRN NEB WHEEZING AND SOB; Start 10/30/18 at 22:00 Ascorbic Acid (Vitamin C) 500 mg DAILY GTB Last administered on 11/06/18 08:27; Admin Dose 500 MG; Start 10/31/18 at 09:00 Metoclopramide HCl (Reglan) 10 mg Q6H PRN GTB NAUSEA AND/OR VOMITING; Start 10/30/18 at 22:00 Multivitamins (Multivitamin) 30 ml DAILY GTB Last administered on 11/06/18 08:26; Admin Dose 30 ML; Start 10/31/18 at 09:00 Pantoprazole (Protonix Tab) 40 mg DAILY@0600 PO Last administered on 11/06/18 05:23; Admin Dose 40 MG; Start 10/31/18 at 06:00 Ferrous Sulfate (Feosol Liquid Cup) 300 mg BID PO Last administered on 11/06/18 08:26; Admin Dose 300 MG; Start 10/30/18 at 22:00 Levetiracetam (Keppra Liquid) 1,500 mg BID GTB Last administered on 11/06/18 08:30; Admin Dose 1,500 MG; Start 10/30/18 at 22:30 Acetaminophen (Tylenol Liquid) 650 mg Q4H PRN GTB MILD PAIN(1-3)OR ELEVATED TEMP Last administered on 11/06/18 09:24; Admin Dose 650 MG; Start 10/31/18 at 00:00 Vancomycin HCl (Vanco Iv Per Pharmacy) VANCOMYCIN PER PHARMACY PER PROTOCOL XX ; Start 10/31/18 at 07:00 Nystatin (Nystatin Oint) 1 applic BID TOP Last administered on 11/06/18 08:28; Admin Dose 1 APPLIC; Start 10/31/18 at 21:00 Aspirin (Aspirin) 81 mg DAILY PO Last administered on 11/06/18 08:27; Admin Dose 81 MG; Start 11/01/18 at 09:00 Metoprolol Tartrate (Lopressor) 25 mg BID GTB Last administered on 11/05/18 08:42; Admin Dose 25 MG; Start 11/01/18 at 21:00 Tramadol HCl (Ultram) 50 mg Q4 PRN PO MODERATE PAIN LEVEL 4-6 Last administered on 11/05/18 03:18; Admin Dose 50 MG; Start 11/01/18 at 21:00 Metoprolol Tartrate (Lopressor) 5 mg Q4 PRN IV ELEVATED HEART RATE; Start at 21:00 Docusate Sodium (Colace Liquid Cup) 100 mg BID GTB Last administered on 11/05/18 20:18; Admin Dose 100 MG; Start 11/02/18 at 09:00 Collagenase (Santyl) 1 applic DAILY TOP Last administered on 11/06/18 08:27; Admin Dose 1 APPLIC; Start 11/03/18 at 09:00 Midodrine (Proamatine) 5 mg TID@09,13,17 GTB Last administered on 11/06/18 08:27; Admin Dose 5 MG; Start 11/03/18 at 02:30 Vancomycin HCl 250 ml @ 125 mls/hr Q24H IVPB Last administered on 11/05/18 11:25; Admin Dose 125 MLS/HR; Start 11/04/18 at 12:00 Potassium Chloride (Potassium Chloride Pwd/Soln) 20 meq BID GTB Last ad ministered on 11/06/18 08:27; Admin Dose 20 MEQ; Start 11/04/18 at 09:00 Potassium Chloride/Dextrose 1,000 ml @ 60 mls/hr [id number] IV Last administered on 11/06/18 05:32; Admin Dose 60 MLS/HR; Start 11/04/18 at 14:30 Lorazepam (Ativan) 1 mg Q4H PRN IV AGITATION Last administered on 11/05/18at 11:36; Admin Dose 1 MG; Start 11/05/18 at 11:30 Morphine Sulfate (morphine) 1 mg Q4H PRN IV SEVERE PAIN LEVEL 7-10 Last administered on 11/05/18 13:07; Admin Dose 1 MG; Start 11/05/18 at 13:30 Piperacillin Sod/ Tazobactam Sod 100 ml @ 200 mls/hr Q8 IVPB Last administered on 11/06/18 05:24; Admin Dose 200 MLS/HR; Start 11/05/18 at 14:00 Sodium Chloride 500 ml @ 500 mls/hr Q1H STAT IV ; Start 11/06/18 at 11:34; Stop 11/06/18 at 12:33 FABIOLA WATERS MD Nov 06, 2018 11:45
[2018-11-06] MEDS: VANCOMYCIN 1 GM 250 ML IVPB SCH (13:02)
--- NOTE | 2018-11-06 13:42 | CONS ---
Consultation Date/Type/Reason Admit Date/Time October 30, 2018 at 08:15 Initial Consult Date SUBJECTIVE: Patient is non verbal with chronic encephalopathy. No acute events over night. Low grade fever today at 4AM 100.0. Pt is afebrile now. VS: stable T: 98.9 LABS: Reviewed. WBC-6.1 Antimicrobials: Vancomycin, cefepime Microbiology: Blood culture on admission grew coag negative staph species, urine culture grew Proteus mirabilis susceptible to cefotaxime tobramycin and gent influenza swab negative, MRSA negative CT of the chest on admission revealed right lower lobe dense wench shaped consolidation with moderate bilateral peribronchial nodular opacities consistent with multifocal pneumonia. Hydronephrosis of the right kidney of mild severity secondary to partial visualization of a 10 mm stone in the right proximal ureter with wall thickening and inflammation of the right renal pelvic wall and proximal ureteral wall. Please see full report in the chart Antimicrobials: Vancomycin, Zosyn Physical examination: GEN: Chronically ill-appearing vegetative middle-aged man, who is in no distress. HENT: Head atraumatic normocephalic; neck is supple tracheostomy present PULM: chest rise symmetrical breath sounds diminished bases. Heart: S1-S2. Abdomen: soft, bowel sounds hypoactive. Extremities: wasted contractured Assessment: 1. Severe sepsis, present on admission 2. Coag negative staph bacteremia, possibly line sepsis as patient had PICC line on admission that was discontinued 3. Multifocal healthcare associated pneumonia 4. Urinary tract infection with obstructive uropathy 5. Vegetative 6. Elevated lipase on admission==> no evidence for pancreatitis per CT 7. DNR Plan: Pt is clinically unchanged., Pending sputum cx. Fevers improving. Pt is responding well to current treatment. Continue current antbx.( vanco and Zosyn) Requesting Provider: RICHARD GIRARD MD Date/Time of Note DATE: 11/06/18 TIME: 13:07 Exam/Review of Systems Exam Vitals Vital Signs Date Temp Pulse Resp B/P (MAP) Pulse Ox O2 O2 Flow FiO2 Time Delivery Rate 11/06/18 69 12:40 11/06/18 98.9 20 92/56 (68) 90 Trach 12:03 Collar 11/06/18 40 11:15 Intake and Output 11/05/18 11/05/18 11/06/18 1515:00 23:00 07:00 IntakeIntake Total 250 ml 1400 ml 1300 ml OutputOutput Total 600 ml 2600 ml BalanceBalance 250 ml 800 ml -1300 ml Results Result Diagram: 11/06/18 0532 11/06/18 0532 Results 24hrs Laboratory Tests Test 11/06/18 05:32 White Blood Count 6.1 Red Blood Count 2.97 L Hemoglobin 6.8 *L Hematocrit 23.1 L Mean Corpuscular Volume 77.8 L Mean Corpuscular Hemoglobin 22.9 L Mean Corpuscular Hemoglobin Concent 29.4 L Red Cell Distribution Width 17.1 H Platelet Count 213 # Mean Platelet Volume 12.5 H Immature Granulocytes % 1.600 H Neutrophils % Segmented Neutrophils % (Manual) 59 Band Neutrophils % (Manual) 7 H Lymphocytes % Lymphocytes % (Manual) 29 Monocytes % Monocytes % (Manual) 4 Eosinophils % Eosinophils % (Manual) 1 Basophils % Nucleated Red Blood Cells % 0.0 Immature Granulocytes # 0.100 H Neutrophils # Neutrophils # (Manual) 3.6 Band Neutrophils # 0.4 Lymphocytes (Manual) 1.7 Lymphocytes # Monocytes # Monocytes # (Manual) 0.2 L Eosinophils # Basophils # Nucleated Red Blood Cells # Platelet Estimate NORMAL Giant Platelets 9 H Polychromasia 1+ Poikilocytosis 1+ Anisocytosis 1+ Microcytosis 1+ Ovalocytes 1+ Sodium Level 143 Potassium Level 4.0 Chloride Level 113 H Carbon Dioxide Level 24 Anion Gap 6 Blood Urea Nitrogen 18 Creatinine 0.53 L Est Glomerular Filtrat Rate mL/min > 60 Glucose Level 122 Calcium Level 8.6 Lipase 1371 H Medications Medication Current Medications Albuterol (Proventil 0.083% (Neb)) 2.5 mg Q3H RESP THERAPY PRN NEB WHEEZING AND SOB; Start 10/30/18 at 22:00 Albuterol (Proventil 0.083% (Neb)) 2.5 mg Q6H RESP THERAPY PRN NEB WHEEZING AND SOB; Start 10/30/18 at 22:00 Ascorbic Acid (Vitamin C) 500 mg DAILY GTB Last administered on 11/06/18at 08:27; Admin Dose 500 MG; Start 10/31/18 at 09:00 Metoclopramide HCl (Reglan) 10 mg Q6H PRN GTB NAUSEA AND/OR VOMITING; Start 10/30/18 at 22:00 Multivitamins (Multivitamin) 30 ml DAILY GTB Last administered on 11/06/18 08:26; Admin Dose 30 ML; Start 10/31/18 at 09:00 Pantoprazole (Protonix Tab) 40 mg DAILY@0600 PO Last administered on 11/06/18 05:23; Admin Dose 40 MG; Start 10/31/18 at 06:00 Ferrous Sulfate (Feosol Liquid Cup) 300 mg BID PO Last administered on 11/06/18 08:26; Admin Dose 300 MG; Start 10/30/18 at 22:00 Levetiracetam (Keppra Liquid) 1,500 mg BID GTB Last administered on 11/06/18 08:30; Admin Dose 1,500 MG; Start 10/30/18 at 22:30 Acetaminophen (Tylenol Liquid) 650 mg Q4H PRN GTB MILD PAIN(1-3)OR ELEVATED TEMP Last administered on 11/06/18 09:24; Admin Dose 650 MG; Start 10/31/18 at 00:00 Vancomycin HCl (Vanco Iv Per Pharmacy) VANCOMYCIN PER PHARMACY PER PROTOCOL XX ; Start 10/31/18 at 07:00 Nystatin (Nystatin Oint) 1 applic BID TOP Last administered on 11/06/18 08:28; Admin Dose 1 APPLIC; Start 10/31/18 at 21:00 Aspirin (Aspirin) 81 mg DAILY PO Last administered on 11/06/18 08:27; Admin Dose 81 MG; Start 11/01/18 at 09:00 Metoprolol Tartrate (Lopressor) 25 mg BID GTB Last administered on 11/05/18 08:42; Admin Dose 25 MG; Start 11/01/18 at 21:00 Tramadol HCl (Ultram) 50 mg Q4 PRN PO MODERATE PAIN LEVEL 4-6 Last administered on 11/05/18 03:18; Admin Dose 50 MG; Start 11/01/18 at 21:00 Metoprolol Tartrate (Lopressor) 5 mg Q4 PRN IV ELEVATED HEART RATE; Start 11/01/18 at 21:00 Docusate Sodium (Colace Liquid Cup) 100 mg BID GTB Last administered on 11/05/18 20:18; Admin Dose 100 MG; Start 11/02/18 at 09:00 Collagenase (Santyl) 1 applic DAILY TOP Last administered on 11/06/18 08:27; Admin Dose 1 APPLIC; Start 11/03/18 at 09:00 Midodrine (Proamatine) 5 mg TID@09,13,17 GTB Last administered on 11/06/18 12:20; Admin Dose 5 MG; Start 11/03/18 at 02:30 Vancomycin HCl 250 ml @ 125 mls/hr Q24H IVPB Last administered on 11/06/18 13:02; Admin Dose 125 MLS/HR; Start 11/04/18 at 12:00 Potassium Chloride (Potassium Chloride Pwd/Soln) 20 meq BID GTB Last administered on 11/06/18 08:27; Admin Dose 20 MEQ; Start 11/04/18 at 09:00 Potassium Chloride/Dextrose 1,000 ml @ 60 mls/hr [id number] IV Last administered on 11/06/18 05:32; Admin Dose 60 MLS/HR; Start 11/04/18 at 14:30 Lorazepam (Ativan) 1 mg Q4H PRN IV AGITATION Last administered on 11/05/18 11:36; Admin Dose 1 MG; Start 11/05/18 at 11:30 Morphine Sulfate (morphine) 1 mg Q4H PRN IV SEVERE PAIN LEVEL 7-10 Last administered on 11/05/18 13:07; Admin Dose 1 MG; Start 11/05/18 at 13:30 Piperacillin Sod/ Tazobactam Sod 100 ml @ 200 mls/hr Q8 IVPB Last administered on 11/06/18 05:24; Admin Dose 200 MLS/HR; Start 11/05/18 at 14:00 MOLLY CASTRO Nov 06, 2018 13:17
--- NOTE | 2018-11-06 14:55 | CONS ---
Consult Date/Type/Reason Admit Date/Time October 30, 2018 at 08:15 Initial Consult Date 11/03/18 Type of Consultation: Urology Reason for Consultation Urinary retention Requesting Provider: RICHARD GIRARD MD Date/Time of Note DATE: 11/06/18 TIME: 14:52 Subjective The patient is encephalopathic and appears to be comfortable. He is on a respirator. Objective Vitals Vital Signs Date Temp Pulse Resp B/P (MAP) Pulse Ox O2 O2 Flow FiO2 Time Delivery Rate 11/06/18 67 31 96 40 13:10 11/06/18 98.9 92/56 (68) Trach 12:03 Collar Intake and Output 11/05/18 11/05/18 11/06/18 1515:00 23:00 07:00 IntakeIntake Total 250 ml 1400 ml 1300 ml OutputOutput Total 600 ml 2600 ml BalanceBalance 250 ml 800 ml -1300 ml Exam The Charles catheter is draining clear urine. There is no bleeding. Results/Medications Result Diagram: 11/06/18 0532 11/06/18 0532 Results 24 hrs Laboratory Tests Test 11/06/18 05:32 White Blood Count 6.1 Red Blood Count 2.97 L Hemoglobin 6.8 *L Hematocrit 23.1 L Mean Corpuscular Volume 77.8 L Mean Corpuscular Hemoglobin 22.9 L Mean Corpuscular Hemoglobin Concent 29.4 L Red Cell Distribution Width 17.1 H Platelet Count 213 # Mean Platelet Volume 12.5 H Immature Granulocytes % 1.600 H Neutrophils % Segmented Neutrophils % (Manual) 59 Band Neutrophils % (Manual) 7 H Lymphocytes % Lymphocytes % (Manual) 29 Monocytes % Monocytes % (Manual) 4 Eosinophils % Eosinophils % (Manual) 1 Basophils % Nucleated Red Blood Cells % 0.0 Immature Granulocytes # 0.100 H Neutrophils # Neutrophils # (Manual) 3.6 Band Neutrophils # 0.4 Lymphocytes (Manual) 1.7 Lymphocytes # Monocytes # Monocytes # (Manual) 0.2 L Eosinophils # Basophils # Nucleated Red Blood Cells # Platelet Estimate NORMAL Giant Platelets 9 H Polychromasia 1+ Poikilocytosis 1+ Anisocytosis 1+ Microcytosis 1+ Ovalocytes 1+ Sodium Level 143 Potassium Level 4.0 Chloride Level 113 H Carbon Dioxide Level 24 Anion Gap 6 Blood Urea Nitrogen 18 Creatinine 0.53 L Est Glomerular Filtrat Rate mL/min > 60 Glucose Level 122 Calcium Level 8.6 Lipase 1371 H Home Meds Reported Medications Ascorbic Acid* (Vitamin C*) 500 Mg Capsule.sa, 500 MG GTB DAILY, CAP 10/30/18 Cran/Vitc/Mannose/Inulin/Brom (Uti-Stat Liquid) 3,875 Mg/30 Ml Liquid, 3875 MG GTB BID 10/30/18 Acetaminophen* (Acetaminophen*) 650 Mg Tablet, 650 MG GTB TRACH CHANGE PRN for PAIN, #30 TAB 10/30/18 Acetaminophen* (Acetaminophen*) 325 Mg Tablet, 650 MG GTB BID PRN for PAIN MANAGEMENT, #30 TAB 10/30/18 Metoclopramide Hcl* (Metoclopramide Hcl*) 10 Mg Tablet, 10 MG GTB Q6H PRN for NAUSEA AND OR VOMITING, TAB 10/30/18 Potassium Chloride* (Potassium Chloride*) 20 Meq/15 Ml Liquid, 20 MEQ GTB DAILY, ML DILUTE WITH 120 CCS OF WATER 10/30/18 Multivitamin* (Daily Value*) 1 Each Tablet, 1 TAB GTB DAILY, TAB 10/30/18 Levetiracetam* (Keppra* (Ped)) 100 Mg/Ml Liq, 1500 MG GTB BID for 30 Days, BOTTLE 10/30/18 Ferrous Sulfate (Ferrous Sulfate) 220 Mg/5 Ml Solution, 300 MG GTB BID 10/30/18 Dexlansoprazole (Dexilant) 60 Mg Cap., 60 MG GTB DAILY, #30 CAP 10/30/18 Cranberry Extract (Cranberry) 425 Mg Capsule, 425 MG GTB BID, CAP 10/30/18 Docusate Sodium* (Colace*) 100 Mg Capsule, 100 MG GTB QHS, #60 CAP 10/30/18 Chlorhexidine Gluconate (Peridex) 473 Ml Mouthwash, 15 ML MM Q12, BOTTLE 10/30/18 Albuterol Sulfate* (Albuterol Sulfate* Neb) 0.083%-3 Ml Neb, 2.5 MG NEB Q6 PRN for WHEEZING AND SOB, #30 VIAL 10/30/18 Albuterol Sulfate* (Albuterol Sulfate* Neb) 0.083%-3 Ml Neb, 2.5 MG NEB Q3H PRN for WHEEZING AND SOB, #30 VIAL 10/30/18 Discontinued Reported Medications Ipratropium-Albuterol (Ipratropium-Albuterol) 0.5-3 Mg/3 Ml Ampul.neb, 3 ML INHALATION Q3H PRN for WHEEZING AND SOB, #30 VIAL 01/14/17 Ipratropium-Albuterol (Ipratropium-Albuterol) 0.5-3 Mg/3 Ml Ampul.neb, 3 ML INHALATION Q6 PRN for WHEEZING AND SOB, #30 VIAL 01/14/17 Cranberry Extract (Cranberry) 425 Mg Capsule, 425 MG PO BID, CAP 01/14/17 Ondansetron Hcl* (Zofran*) 4 Mg Tablet, 4 MG GTB Q6H PRN for NAUSEA AND OR VOMITING, TAB 01/14/17 Zinc Sulfate* (Zinc Sulfate*) 220 Mg Tablet, 220 MG GTB DAILY, TAB 01/14/17 Cran/Vitc/Mannose/Inulin/Brom (Uti-Stat Liquid) 3,875 Mg/30 Ml Liquid, 3875 MG GTB DAILY 01/14/17 Acetaminophen* (Acetaminophen*) 650 Mg Tablet, 650 MG PO TRACH CHANGE, #30 TAB GIVE 30 MIN PRIOR 01/14/17 Famotidine* (Pepcid*) 20 Mg Tablet, 20 MG GTB BID, #60 TAB 01/14/17 Ferrous Sulfate (Ferrous Sulfate) 300 Mg/5 Ml Liquid, 330 MG GTB BID 01/14/17 Chlorhexidine Gluconate (Peridex) 473 Ml Mouthwash, 15 ML MM Q12, BOTTLE 01/14/17 Metoclopramide* (Reglan*) 10 Mg/10 Ml Soln, 10 MG GTB Q6, ML 01/14/17 Docusate Sodium* (Colace*) 100 Mg Capsule, 100 MG GTB QHS, #30 CAP 12/16/16 Bisacodyl* (Bisacodyl*) 10 Mg Supp, 10 MG SD DAILY PRN for PRN, SUPP 12/16/16 Sod Phosphate/Sod Biphosphate* (Fleet* Enema Pediatric) 66.6 Ml Soln, 66.6 ML SD Q2DAYS PRN for CONSTIPATION, ENEMA 12/16/16 Magnesium Hydroxide* (Milk Of Magnesia*) 400 Mg/5 Ml Oral.susp, 30 ML GTB DAILY, ML 12/16/16 Multivit &Minerals/Ferrous Fum (MULTIVITAMIN LIQUID) 9 Mg/15 Ml Liquid, 5 ML GTB DAILY 12/16/16 Ascorbic Acid (Vitamin C) 500 Mg Tab, 500 MG GTB DAILY, TAB 12/16/16 Acetaminophen* (Tylenol*) 500 Mg Tab, 1000 MG GTB Q4H PRN for MODERATE PAIN 4- 11/15, TAB 12/16/16 Acetaminophen* (Tylenol*) 325 Mg Tablet, 650 MG GTB Q4H PRN for MILD PAIN LEVEL 1-3, TAB FOR FEVER 101 AND ABOVE,FOR TRACH TUBE CHANGE 12/16/16 Levetiracetam* (Keppra* (Ped)) 100 Mg/Ml Liq, 15 ML GTB BID for 30 Days, BOTTLE 12/16/16 Metoprolol Tartrate* (Lopressor*) 25 Mg Tab, 12.5 MG GTB BID, #60 TAB HOLD IF SBP<110 12/16/16 Lansoprazole* (Lansoprazole*) 30 Mg Capsule.dr, 30 MG GTB DAILY, CAP 12/16/16 Enoxaparin Sodium* (Lovenox*) 30 Mg/0.3 Ml Disp.syrin, 30 MG SQ DAILY, SYR 12/16/16 Aspirin* (Aspirin* EC) 81 Mg Tablet.dr, 81 MG GTB DAILY, TAB 12/16/16 Medications Current Medications Albuterol (Proventil 0.083% (Neb)) 2.5 mg Q3H RESP THERAPY PRN NEB WHEEZING AND SOB; Start 10/30/18 at 22:00 Albuterol (Proventil 0.083% (Neb)) 2.5 mg Q6H RESP THERAPY PRN NEB WHEEZING AND SOB; Start 10/30/18 at 22:00 Ascorbic Acid (Vitamin C) 500 mg DAILY GTB Last administered on 11/06/18at 08:27; Admin Dose 500 MG; Start 10/31/18 at 09:00 Metoclopramide HCl (Reglan) 10 mg Q6H PRN GTB NAUSEA AND/OR VOMITING; Start 10/30/18 at 22:00 Multivitamins (Multivitamin) 30 ml DAILY GTB Last administered on 11/06/18at 08:26; Admin Dose 30 ML; Start 10/31/18 at 09:00 Pantoprazole (Protonix Tab) 40 mg DAILY@0600 PO Last administered on 11/06/18 05:23; Admin Dose 40 MG; Start 10/31/18 at 06:00 Ferrous Sulfate (Feosol Liquid Cup) 300 mg BID PO Last administered on 11/06/18 08:26; Admin Dose 300 MG; Start 10/30/18 at 22:00 Levetiracetam (Keppra Liquid) 1,500 mg BID GTB Last administered on 11/06/18 08:30; Admin Dose 1,500 MG; Start 10/30/18 at 22:30 Acetaminophen (Tylenol Liquid) 650 mg Q4H PRN GTB MILD PAIN(1-3)OR ELEVATED TEMP Last administered on 11/06/18 09:24; Admin Dose 650 MG; Start 10/31/18 at 00:00 Vancomycin HCl (Vanco Iv Per Pharmacy) VANCOMYCIN PER PHARMACY PER PROTOCOL XX ; Start 10/31/18 at 07:00 Nystatin (Nystatin Oint) 1 applic BID TOP Last administered on 11/06/18 08:28; Admin Dose 1 APPLIC; Start 10/31/18 at 21:00 Aspirin (Aspirin) 81 mg DAILY PO Last administered on 11/06/18 08:27; Admin Dose 81 MG; Start 11/01/18 at 09:00 Metoprolol Tartrate (Lopressor) 25 mg BID GTB Last administered on 11/05/18 08:42; Admin Dose 25 MG; Start 11/01/18 at 21:00 Tramadol HCl (Ultram) 50 mg Q4 PRN PO MODERATE PAIN LEVEL 4-6 Last administered on 11/05/18 03:18; Admin Dose 50 MG; Start 11/01/18 at 21:00 Metoprolol Tartrate (Lopressor) 5 mg Q4 PRN IV ELEVATED HEART RATE; Start 11/01/18 at 21:00 Docusate Sodium (Colace Liquid Cup) 100 mg BID GTB Last administered on 11/05/18 20:18; Admin Dose 100 MG; Start 11/02/18 at 09:00 Collagenase (Santyl) 1 applic DAILY TOP Last administered on 11/06/18 08:27; Admin Dose 1 APPLIC; Start 11/03/18 at 09:00 Midodrine (Proamatine) 5 mg TID@,,17 GTB Last administered on 11/06/18 12:20; Admin Dose 5 MG; Start 11/03/18 at 02:30 Vancomycin HCl 250 ml @ 125 mls/hr Q24H IVPB Last administered on 11/06/18 13:02; Admin Dose 125 MLS/HR; Start 11/04/18 at 12:00 Potassium Chloride (Potassium Chloride Pwd/Soln) 20 meq BID GTB Last administered on 11/06/18 08:27; Admin Dose 20 MEQ; Start 11/04/18 at 09:00 Potassium Chloride/Dextrose 1,000 ml @ 60 mls/hr [id number] IV Last administered on 11/06/18 05:32; Admin Dose 60 MLS/HR; Start 11/04/18 at 14:30 Lorazepam (Ativan) 1 mg Q4H PRN IV AGITATION Last administered on 11/05/18 11:36; Admin Dose 1 MG; Start 11/05/18 at 11:30 Morphine Sulfate (morphine) 1 mg Q4H PRN IV SEVERE PAIN LEVEL 7-10 Last administered on 11/05/18 13:07; Admin Dose 1 MG; Start 11/05/18 at 13:30 Piperacillin Sod/ Tazobactam Sod 100 ml @ 200 mls/hr Q8 IVPB Last administered on 11/06/18 05:24; Admin Dose 200 MLS/HR; Start 11/05/18 at 14:00 Assessment/Plan Hospital Course (Demo Recall) This is a 47-year-old male, SNF resident at [facility] He had attempted suicide in 2009. He has a past medical history of vent dependent Respiratory Failure, anoxic brain injury and encephalopathy, seizure disorder secondary to his anoxic brain injury, dysphagia, status post GT placement . The patient is admitted with c/o changes in his mental status. The patient has flexion contraction of the upper extremities and nursing staff indicated that he did not appear as rigid in his upper extremities. Patient was found to have urinary retention and a Charles catheter was inserted and 1200 mL drained out. Prior to that the patient has been incontinent. Urological consultation was therefore requested. The patient is encephalopathic and not capable of giving any history. All the information were obtained from reviewing his medical record. Renal ultrasound: Both kidneys are normal in echogenicity. There is normal renal cortical thickness without focal thinning or scarring. No solid renal masses are identified. There are multiple nonobstructing right intrarenal calculi measuring between 7-8 mm. No hydronephrosis is seen. No stone burden is noted within the left kidney. The right kidney measures 13.4 cm, and the left kidney measures 9.7 cm. Spot images of the pelvis demonstrating normally distended bladder with smooth contours. CT scan of the chest: There is right lower lobe dense wedge-shaped consolidation with moderate bilateral peribronchial nodular opacities consistent with multifocal pneumonia. Study for pulmonary embolus is severely limited due to motion with possible pulmonary embolus in the right lower lobe basilar segment however this may be artifactual from motion and repeat study may be considered. 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 There is hydronephrosis of the right kidney of mild severity secondary to partial visualization of a 10 mm stone in the right proximal ureter with wall thickening and inflammation of the right renal pelvic wall and proximal ureteral wall. Right hilar adenopathy is present which may be reactive in nature and can be reassessed with followup CT chest after 3 months. Atherosclerotic disease. No acute pulmonary process. Most likely this patient has had urinary retention for a long time and was overflowing. As far as the urinary retention we will just have to insert the Charles catheter and keep it in. The patient also does have bilateral kidney stones and a stone in the right upper ureter. Again considering the patient's general condition I would recommend to observe him for the stones. Presently hi s urine is clear and his renal function is good. Continue the present treatment CASTILLO NAVARRETE MD Nov 06, 2018 14:55
--- NOTE | 2018-11-06 15:22 | CONS ---
Consult Date/Type/Reason Admit Date/Time October 30, 2018 at 08:15 Initial Consult Date 11/03/18 Type of Consultation: Pulm Requesting Provider: RICHARD GIRARD MD Date/Time of Note DATE: 11/06/18 TIME: 15:20 Subjective No events on the vent. Objective Vitals Vital Signs Date Temp Pulse Resp B/P (MAP) Pulse Ox O2 O2 Flow FiO2 Time Delivery Rate 11/06/18 67 31 96 40 13:10 11/06/18 98.9 92/56 (68) Trach 12:03 Collar Intake and Output 11/05/18 11/05/18 11/06/18 1515:00 23:00 07:00 IntakeIntake Total 250 ml 1400 ml 1300 ml OutputOutput Total 600 ml 2600 ml BalanceBalance 250 ml 800 ml -1300 ml Exam GENERAL: Chronically ill-appearing gentleman on mechanical ventilation VITAL SIGNS: per chart NECK: Supple. No JVD or lymphadenopathy. CARDIAC EXAM: S1, S2. No added sounds or murmurs. CHEST: Diminished air entry bilaterally ABDOMEN: Soft, nontender. No guarding or rebound. EXTREMITIES: No cyanosis, clubbing or edema. NEUROLOGIC: Contractures with generalized weakness Results/Medications Result Diagram: 11/06/18 0532 11/06/18 0532 Results 24 hrs Laboratory Tests Test 11/06/18 05:32 White Blood Count 6.1 Red Blood Count 2.97 L Hemoglobin 6.8 *L Hematocrit 23.1 L Mean Corpuscular Volume 77.8 L Mean Corpuscular Hemoglobin 22.9 L Mean Corpuscular Hemoglobin Concent 29.4 L Red Cell Distribution Width 17.1 H Platelet Count 213 # Mean Platelet Volume 12.5 H Immature Granulocytes % 1.600 H Neutrophils % Segmented Neutrophils % (Manual) 59 Band Neutrophils % (Manual) 7 H Lymphocytes % Lymphocytes % (Manual) 29 Monocytes % Monocytes % (Manual) 4 Eosinophils % Eosinophils % (Manual) 1 Basophils % Nucleated Red Blood Cells % 0.0 Immature Granulocytes # 0.100 H Neutrophils # Neutrophils # (Manual) 3.6 Band Neutrophils # 0.4 Lymphocytes (Manual) 1.7 Lymphocytes # Monocytes # Monocytes # (Manual) 0.2 L Eosinophils # Basophils # Nucleated Red Blood Cells # Platelet Estimate NORMAL Giant Platelets 9 H Polychromasia 1+ Poikilocytosis 1+ Anisocytosis 1+ Microcytosis 1+ Ovalocytes 1+ Sodium Level 143 Potassium Level 4.0 Chloride Level 113 H Carbon Dioxide Level 24 Anion Gap 6 Blood Urea Nitrogen 18 Creatinine 0.53 L Est Glomerular Filtrat Rate mL/min > 60 Glucose Level 122 Calcium Level 8.6 Lipase 1371 H Home Meds Reported Medications Ascorbic Acid* (Vitamin C*) 500 Mg Capsule.sa, 500 MG GTB DAILY, CAP 10/30/18 Cran/Vitc/Mannose/Inulin/Brom (Uti-Stat Liquid) 3,875 Mg/30 Ml Liquid, 3875 MG GTB BID 10/30/18 Acetaminophen* (Acetaminophen*) 650 Mg Tablet, 650 MG GTB TRACH CHANGE PRN for PAIN, #30 TAB 10/30/18 Acetaminophen* (Acetaminophen*) 325 Mg Tablet, 650 MG GTB BID PRN for PAIN MA NAGEMENT, #30 TAB 10/30/18 Metoclopramide Hcl* (Metoclopramide Hcl*) 10 Mg Tablet, 10 MG GTB Q6H PRN for NAUSEA AND OR VOMITING, TAB 10/30/18 Potassium Chloride* (Potassium Chloride*) 20 Meq/15 Ml Liquid, 20 MEQ GTB DAILY, ML DILUTE WITH 120 CCS OF WATER 10/30/18 Multivitamin* (Daily Value*) 1 Each Tablet, 1 TAB GTB DAILY, TAB 10/30/18 Levetiracetam* (Keppra* (Ped)) 100 Mg/Ml Liq, 1500 MG GTB BID for 30 Days, JORGE TTLE 10/30/18 Ferrous Sulfate (Ferrous Sulfate) 220 Mg/5 Ml Solution, 300 MG GTB BID 10/30/18 Dexlansoprazole (Dexilant) 60 Mg Cap., 60 MG GTB DAILY, #30 CAP 10/30/18 Cranberry Extract (Cranberry) 425 Mg Capsule, 425 MG GTB BID, CAP 10/30/18 Docusate Sodium* (Colace*) 100 Mg Capsule, 100 MG GTB QHS, #60 CAP 10/30/18 Chlorhexidine Gluconate (Peridex) 473 Ml Mouthwash, 15 ML MM Q12, BOTTLE 10/30/18 Albuterol Sulfate* (Albuterol Sulfate* Neb) 0.083%-3 Ml Neb, 2.5 MG NEB Q6 PRN for WHEEZING AND SOB, #30 VIAL 10/30/18 Albuterol Sulfate* (Albuterol Sulfate* Neb) 0.083%-3 Ml Neb, 2.5 MG NEB Q3H PRN for WHEEZING AND SOB, #30 VIAL 10/30/18 Discontinued Reported Medications Ipratropium-Albuterol (Ipratropium-Albuterol) 0.5-3 Mg/3 Ml Ampul.neb, 3 ML INHALATION Q3H PRN for WHEEZING AND SOB, #30 VIAL 01/14/17 Ipratropium-Albuterol (Ipratropium-Albuterol) 0.5-3 Mg/3 Ml Ampul.neb, 3 ML INHALATION Q6 PRN for WHEEZING AND SOB, #30 VIAL 01/14/17 Cranberry Extract (Cranberry) 425 Mg Capsule, 425 MG PO BID, CAP 01/14/17 Ondansetron Hcl* (Zofran*) 4 Mg Tablet, 4 MG GTB Q6H PRN for NAUSEA AND OR VOMITING, TAB 01/14/17 Zinc Sulfate* (Zinc Sulfate*) 220 Mg Tablet, 220 MG GTB DAILY, TAB 01/14/17 Cran/Vitc/Mannose/Inulin/Brom (Uti-Stat Liquid) 3,875 Mg/30 Ml Liquid, 3875 MG GTB DAILY 01/14/17 Acetaminophen* (Acetaminophen*) 650 Mg Tablet, 650 MG PO TRACH CHANGE, #30 TAB GIVE 30 MIN PRIOR 01/14/17 Famotidine* (Pepcid*) 20 Mg Tablet, 20 MG GTB BID, #60 TAB 01/14/17 Ferrous Sulfate (Ferrous Sulfate) 300 Mg/5 Ml Liquid, 330 MG GTB BID 01/14/17 Chlorhexidine Gluconate (Peridex) 473 Ml Mouthwash, 15 ML MM Q12, BOTTLE 01/14/17 Metoclopramide* (Reglan*) 10 Mg/10 Ml Soln, 10 MG GTB Q6, ML 01/14/17 Docusate Sodium* (Colace*) 100 Mg Capsule, 100 MG GTB QHS, #30 CAP 12/16/16 Bisacodyl* (Bisacodyl*) 10 Mg Supp, 10 MG WA DAILY PRN for PRN, SUPP 12/16/16 Sod Phosphate/Sod Biphosphate* (Fleet* Enema Pediatric) 66.6 Ml Soln, 66.6 ML WA Q2DAYS PRN for CONSTIPATION, ENEMA 12/16/16 Magnesium Hydroxide* (Milk Of Magnesia*) 400 Mg/5 Ml Oral.susp, 30 ML GTB DAILY, ML 12/16/16 Multivit &Minerals/Ferrous Fum (MULTIVITAMIN LIQUID) 9 Mg/15 Ml Liquid, 5 ML GTB DAILY 12/16/16 Ascorbic Acid (Vitamin C) 500 Mg Tab, 500 MG GTB DAILY, TAB 12/16/16 Acetaminophen* (Tylenol*) 500 Mg Tab, 1000 MG GTB Q4H PRN for MODERATE PAIN 4- 11/15, TAB 12/16/16 Acetaminophen* (Tylenol*) 325 Mg Tablet, 650 MG GTB Q4H PRN for MILD PAIN LEVEL 1-3, TAB FOR FEVER 101 AND ABOVE,FOR TRACH TUBE CHANGE 12/16/16 Levetiracetam* (Keppra* (Ped)) 100 Mg/Ml Liq, 15 ML GTB BID for 30 Days, BOTTLE 12/16/16 Metoprolol Tartrate* (Lopressor*) 25 Mg Tab, 12.5 MG GTB BID, #60 TAB HOLD IF SBP<110 12/16/16 Lansoprazole* (Lansoprazole*) 30 Mg Capsule.dr, 30 MG GTB DAILY, CAP 12/16/16 Enoxaparin Sodium* (Lovenox*) 30 Mg/0.3 Ml Disp.syrin, 30 MG SQ DAILY, SYR 12/16/16 Aspirin* (Aspirin* EC) 81 Mg Tablet.dr, 81 MG GTB DAILY, TAB 12/16/16 Medications Current Medications Albuterol (Proventil 0.083% (Neb)) 2.5 mg Q3H RESP THERAPY PRN NEB WHEEZING AND SOB; Start 10/30/18 at 22:00 Albuterol (Proventil 0.083% (Neb)) 2.5 mg Q6H RESP THERAPY PRN NEB WHEEZING AND SOB; Start 10/30/18 at 22:00 Ascorbic Acid (Vitamin C) 500 mg DAILY GTB Last administered on 11/06/18at 08:27; Admin Dose 500 MG; Start 10/31/18 at 09:00 Metoclopramide HCl (Reglan) 10 mg Q6H PRN GTB NAUSEA AND/OR VOMITING; Start 10/30/18 at 22:00 Multivitamins (Multivitamin) 30 ml DAILY GTB Last administered on 11/06/18 08:26; Admin Dose 30 ML; Start 10/31/18 at 09:00 Pantoprazole (Protonix Tab) 40 mg DAILY@0600 PO Last administered on 11/06/18 05:23; Admin Dose 40 MG; Start 10/31/18 at 06:00 Ferrous Sulfate (Feosol Liquid Cup) 300 mg BID PO Last administered on 11/06/18 08:26; Admin Dose 300 MG; Start 10/30/18 at 22:00 Levetiracetam (Keppra Liquid) 1,500 mg BID GTB Last administered on 11/06/18 08:30; Admin Dose 1,500 MG; Start 10/30/18 at 22:30 Acetaminophen (Tylenol Liquid) 650 mg Q4H PRN GTB MILD PAIN(1-3)OR ELEVATED TEMP Last administered on 11/06/18 09:24; Admin Dose 650 MG; Start 10/31/18 at 00:00 Vancomycin HCl (Vanco Iv Per Pharmacy) VANCOMYCIN PER PHARMACY PER PROTOCOL XX ; Start 10/31/18 at 07:00 Nystatin (Nystatin Oint) 1 applic BID TOP Last administered on 11/06/18 08:28; Admin Dose 1 APPLIC; Start 10/31/18 at 21:00 Aspirin (Aspirin) 81 mg DAILY PO Last administered on 11/06/18 08:27; Admin Dose 81 MG; Start 11/01/18 at 09:00 Metoprolol Tartrate (Lopressor) 25 mg BID GTB Last administered on 11/05/18 08:42; Admin Dose 25 MG; Start 11/01/18 at 21:00 Tramadol HCl (Ultram) 50 mg Q4 PRN PO MODERATE PAIN LEVEL 4-6 Last administered on 11/05/18 03:18; Admin Dose 50 MG; Start 11/01/18 at 21:00 Metoprolol Tartrate (Lopressor) 5 mg Q4 PRN IV ELEVATED HEART RATE; Start 11/01/18 at 21:00 Docusate Sodium (Colace Liquid Cup) 100 mg BID GTB Last administered on 11/05/18 20:18; Admin Dose 100 MG; Start 11/02/18 at 09:00 Collagenase (Santyl) 1 applic DAILY TOP Last administered on 11/06/18 08:27; Admin Dose 1 APPLIC; Start 11/03/18 at 09:00 Midodrine (Proamatine) 5 mg TID@09,13,17 GTB Last administered on 11/06/18 12:20; Admin Dose 5 MG; Start 11/03/18 at 02:30 Vancomycin HCl 250 ml @ 125 mls/hr Q24H IVPB Last administered on 11/06/18 13:02; Admin Dose 125 MLS/HR; Start 11/04/18 at 12:00 Potassium Chloride (Potassium Chloride Pwd/Soln) 20 meq BID GTB Last administered on 11/06/18 08:27; Admin Dose 20 MEQ; Start 11/04/18 at 09:00 Potassium Chloride/Dextrose 1,000 ml @ 60 mls/hr [id number] IV Last administered on 11/06/18 05:32; Admin Dose 60 MLS/HR; Start 11/04/18 at 14:30 Lorazepam (Ativan) 1 mg Q4H PRN IV AGITATION Last administered on 11/05/18 11:36; Admin Dose 1 MG; Start 11/05/18 at 11:30 Morphine Sulfate (morphine) 1 mg Q4H PRN IV SEVERE PAIN LEVEL 7-10 Last administered on 11/05/18 13:07; Admin Dose 1 MG; Start 11/05/18 at 13:30 Piperacillin Sod/ Tazobactam Sod 100 ml @ 200 mls/hr Q8 IVPB Last administered on 11/06/18 15:15; Admin Dose 200 MLS/HR; Start 11/05/18 at 14:00 Assessment/Plan Assessment/Plan (Daily) IMP: 1. Acute on chronic hypoxic respiratory failure/Vent Dependence 2. Chronic encephalopathy 3. Anemia of chronic disease 4. Hypernatremia 5. Recurrent sepsis polymicrobial RECS: 1. Vent support 2. Abx 3. Follow H/H 4. TF/Free H20 LANNY TY MD Nov 06, 2018 15:22
[2018-11-07] VITALS (21 sets, daily range): BP systolic 91–106; BP diastolic 54–67; PULSE 68–90; RESP 16–35
[2018-11-07] MEDS: PANTOPRAZOLE (EC) 40 MG TAB PO SCH (06:16)
[2018-11-07] MEDS: PIPER-TAZO 3.375 GM IV (PMX) 100 ML IVPB SCH ×3 (06:16→22:03)
[2018-11-07] MEDS: D5W + KCL 20 MEQ 1,000 ML IV SCH (06:17)
[2018-11-07] MEDS: METOPROLOL 25 MG TAB GTB SCH ×2 (09:00→21:00)
[2018-11-07] MEDS: MIDODRINE 5 MG TAB GTB SCH ×3 (09:45→16:52)
[2018-11-07] MEDS: DOCUSATE SODIUM 10 MG/ML (10ML CUP) GTB SCH ×2 (09:45→21:00)
[2018-11-07] MEDS: ASCORBIC ACID 500 MG TAB GTB SCH (09:45)
[2018-11-07] MEDS: COLLAGENASE 5 GM (UD JAR) TOP SCH (09:45)
[2018-11-07] MEDS: POTASSIUM CHLORIDE 20 MEQ POWDER FOR ORAL SOLN GTB SCH ×2 (09:45→22:03)
[2018-11-07] MEDS: LEVETIRACETAM (100 MG/ML) 5ML CUP GTB SCH ×2 (09:46→22:03)
[2018-11-07] MEDS: MULTIVITAMINS 30 ML CUP GTB SCH (09:46)
[2018-11-07] MEDS: FERROUS SULFATE 60 MG/ML 5ML CUP PO SCH ×2 (09:46→22:03)
[2018-11-07] MEDS: BALSAM PERU/CASTOR OIL 60 GM TUBE TOP SCH (09:46)
[2018-11-07] MEDS: ASPIRIN 81 MG TAB PO SCH (09:46)
[2018-11-07] MEDS: NYSTATIN 15 GM OINT TOP SCH ×2 (09:46→22:05)
--- NOTE | 2018-11-07 10:28 | PN ---
Date/Time of Note Date/Time of Note DATE: 11/07/18 TIME: 10:27 Assessment/Plan VTE Prophylaxis Risk score (from Ns)>0 risk: 6 SCD applied (from Ns): Yes Pharmacological prophylaxis: LMWH Lines/Catheters IV Catheter Type (from [facility]): Peripheral IV Urinary Cath still in place: Yes Reason Cath still needed: skin wounds contaminated by urine Assessment/Plan Hospital Course - hYPOKALEMIA -Urinary retention. Dr. Regan is following in urology consultation. -Hypernatremia, continue free water flushes where G-tube. -Sepsis with gram-positive cocci bacteremia MDR Proteus UTI. Continue antibiotics per ID. Dr. Matias is following in infection disease consultation. -Non-ST elevation myocardial infarction, continue aspirin, beta-samantha. Lo venox is held due to thrombocytopenia. Dr. Flor is following in cardiology consultation. -Pancreatitis, resolving. Dr. Walton is following in gastroenterology consultation. -Ventilator dependent respiratory failure with tracheostomy. -Anoxic encephalopathy status post cardiac arrest in 2009 -Ventilator dependent respiratory failure -Dysphagia with PEG -Seizure disorder, continue Keppra. -Schizophrenia -Multiple wounds, continue current wound care, offloading. Result Diagram: 11/07/18 0533 11/07/1833 Results 24hrs Laboratory Tests Test 11/06/18 22:03 11/07/18 05:33 Bedside Glucose 120 White Blood Count 7.9 # Red Blood Count 3.15 L Hemoglobin 7.5 L Hematocrit 24.7 L Mean Corpuscular Volume 78.4 L Mean Corpuscular Hemoglobin 23.8 L Mean Corpuscular Hemoglobin Concent 30.4 L Red Cell Distribution Width 17.0 H Platelet Count 181 Mean Platelet Volume 13.2 H Immature Granulocytes % 1.900 H Neutrophils % Segmented Neutrophils % (Manual) 62 Band Neutrophils % (Manual) 4 Lymphocytes % Lymphocytes % (Manual) 19 Monocytes % Monocytes % (Manual) 8 Eosinophils % Eosinophils % (Manual) 1 Basophils % Basophils % (Manual) 5 H Metamyelocytes % (manual) 1 H Nucleated Red Blood Cells % 0.0 Immature Granulocytes # 0.150 H Neutrophils # Neutrophils # (Manual) 4.9 Band Neutrophils # 0.3 Lymphocytes (Manual) 1.5 Lymphocytes # Monocytes # Monocytes # (Manual) 0.6 Eosinophils # Basophils # Basophils # (Manual) 0.3 H Metamyelocytes # 0.0 Nucleated Red Blood Cells # Platelet Estimate NORMAL Giant Platelets 19 H Polychromasia 1+ Sodium Level 143 Potassium Level 3.2 L Chloride Level 113 H Carbon Dioxide Level 23 Anion Gap 7 Blood Urea Nitrogen 15 Creatinine 0.48 L Est Glomerular Filtrat Rate mL/min > 60 Glucose Level 109 Calcium Level 9.0 Subjective 24 Hr Interval Summary Free Text/Dictation Eyes open but patient not verbally responsive Exam/Review of Systems Exam Vitals Vital Signs Date Temp Pulse Resp B/P (MAP) Pulse Ox O2 O2 Flow FiO2 Time Delivery Rate 11/07/18 82 29 95 40 09:20 11/07/18 99.1 93/54 (67) 07:44 11/06/18 Trach 15:40 Collar Intake and Output 11/06/18 11/06/18 11/07/18 1515:00 23:00 07:00 IntakeIntake Total 1380 ml 1260 ml OutputOutput Total 1800 ml 1400 ml BalanceBalance -420 ml -140 ml Constitutional: well developed Head: normocephalic, atraumatic Neck: supple Respiratory: diminished breath sounds Cardiovascular: regular rate and rhythm Gastrointestinal: soft, non-tender Extremities: normal pulses Results Results 24hrs Laboratory Tests Test 11/06/18 22:03 11/07/18 05:33 Bedside Glucose 120 White Blood Count 7.9 # Red Blood Count 3.15 L Hemoglobin 7.5 L Hematocrit 24.7 L Mean Corpuscular Volume 78.4 L Mean Corpuscular Hemoglobin 23.8 L Mean Corpuscular Hemoglobin Concent 30.4 L Red Cell Distribution Width 17.0 H Platelet Count 181 Mean Platelet Volume 13.2 H Immature Granulocytes % 1.900 H Neutrophils % Segmented Neutrophils % (Manual) 62 Band Neutrophils % (Manual) 4 Lymphocytes % Lymphocytes % (Manual) 19 Monocytes % Monocytes % (Manual) 8 Eosinophils % Eosinophils % (Manual) 1 Basophils % Basophils % (Manual) 5 H Metamyelocytes % (manual) 1 H Nucleated Red Blood Cells % 0.0 Immature Granulocytes # 0.150 H Neutrophils # Neutrophils # (Manual) 4.9 Band Neutrophils # 0.3 Lymphocytes (Manual) 1.5 Lymphocytes # Monocytes # Monocytes # (Manual) 0.6 Eosinophils # Basophils # Basophils # (Manual) 0.3 H Metamyelocytes # 0.0 Nucleated Red Blood Cells # Platelet Estimate NORMAL Giant Platelets 19 H Polychromasia 1+ Sodium Level 143 Potassium Level 3.2 L Chloride Level 113 H Carbon Dioxide Level 23 Anion Gap 7 Blood Urea Nitrogen 15 Creatinine 0.48 L Est Glomerular Filtrat Rate mL/min > 60 Glucose Level 109 Calcium Level 9.0 Medications Medication Current Medications Albuterol (Proventil 0.083% (Neb)) 2.5 mg Q3H RESP THERAPY PRN NEB WHEEZING AND SOB; Start 10/30/18 at 22:00 Albuterol (Proventil 0.083% (Neb)) 2.5 mg Q6H RESP THERAPY PRN NEB WHEEZING AND SOB; Start 10/30/18 at 22:00 Ascorbic Acid (Vitamin C) 500 mg DAILY GTB Last administered on 11/07/18 09:45; Admin Dose 500 MG; Start 10/31/18 at 09:00 Metoclopramide HCl (Reglan) 10 mg Q6H PRN GTB NAUSEA AND/OR VOMITING; Start 10/30/18 at 22:00 Multivitamins (Multivitamin) 30 ml DAILY GTB Last administered on 11/07/18 09:46; Admin Dose 30 ML; Start 10/31/18 at 09:00 Pantoprazole (Protonix Tab) 40 mg DAILY@0600 PO Last administered on 11/07/18 06:16; Admin Dose 40 MG; Start 10/31/18 at 06:00 Ferrous Sulfate (Feosol Liquid Cup) 300 mg BID PO Last administered on 11/07/18 09:46; Admin Dose 300 MG; Start 10/30/18 at 22:00 Levetiracetam (Keppra Liquid) 1,500 mg BID GTB Last administered on 11/07/18 0 9:46; Admin Dose 1,500 MG; Start 10/30/18 at 22:30 Acetaminophen (Tylenol Liquid) 650 mg Q4H PRN GTB MILD PAIN(1-3)OR ELEVATED TEMP Last administered on 11/06/18 09:24; Admin Dose 650 MG; Start 10/31/18 at 00:00 Vancomycin HCl (Vanco Iv Per Pharmacy) VANCOMYCIN PER PHARMACY PER PROTOCOL XX ; Start 10/31/18 at 07:00 Nystatin (Nystatin Oint) 1 applic BID TOP Last administered on 11/07/18 09:46; Admin Dose 1 APPLIC; Start 10/31/18 at 21:00 Aspirin (Aspirin) 81 mg DAILY PO Last administered on 11/07/18 09:46; Admin Dose 81 MG; Start 11/01/18 at 09:00 Metoprolol Tartrate (Lopressor) 25 mg BID GTB Last administered on 11/06/18 21:25; Admin Dose 25 MG; Start 11/01/18 at 21:00 Tramadol HCl (Ultram) 50 mg Q4 PRN PO MODERATE PAIN LEVEL 4-6 Last administered on 11/05/18 03:18; Admin Dose 50 MG; Start 11/01/18 at 21:00 Metoprolol Tartrate (Lopressor) 5 mg Q4 PRN IV ELEVATED HEART RATE; Start 11/01/18 at 21:00 Docusate Sodium (Colace Liquid Cup) 100 mg BID GTB Last administered on 11/07/18 09:45; Admin Dose 100 MG; Start 11/02/18 at 09:00 Collagenase (Santyl) 1 applic DAILY TOP Last administered on 11/07/18 09:45; Admin Dose 1 APPLIC; Start 11/03/18 at 09:00 Midodrine (Proamatine) 5 mg TID@09,13,17 GTB Last administered on 11/07/18 09:45; Admin Dose 5 MG; Start 11/03/18 at 02:30 Vancomycin HCl 250 ml @ 125 mls/hr Q24H IVPB Last administered on 11/06/18 13:02; Admin Dose 125 MLS/HR; Start 11/04/18 at 12:00 Potassium Chloride (Potassium Chloride Pwd/Soln) 20 meq BID GTB Last ad ministered on 11/07/18 09:45; Admin Dose 20 MEQ; Start 11/04/18 at 09:00 Potassium Chloride/Dextrose 1,000 ml @ 60 mls/hr [id number] IV Last administered on 11/07/18 06:17; Admin Dose 60 MLS/HR; Start 11/04/18 at 14:30 Lorazepam (Ativan) 1 mg Q4H PRN IV AGITATION Last administered on 11/05/18 11:36; Admin Dose 1 MG; Start 11/05/18 at 11:30 Morphine Sulfate (morphine) 1 mg Q4H PRN IV SEVERE PAIN LEVEL 7-10 Last administered on 5/31/19at 13:07; Admin Dose 1 MG; Start 11/05/18 at 13:30 Piperacillin Sod/ Tazobactam Sod 100 ml @ 200 mls/hr Q8 IVPB Last administered on 11/07/18at 06:16; Admin Dose 200 MLS/HR; Start 11/05/18 at 14:00 JD POWELL 2, 2019 10:28
[2018-11-07] MEDS: VANCOMYCIN 1 GM 250 ML IVPB SCH (12:24)
[2018-11-07] MEDS: ACETAMINOPHEN 650MG/20.3ML CUP GTB PRN (12:24)
--- NOTE | 2018-11-07 13:04 | CONS ---
Consult Date/Type/Reason Admit Date/Time October 30, 2018 at 08:15 Initial Consult Date Type of Consultation: Pulm Requesting Provider: RICHARD GIRARD MD Date/Time of Note DATE: 11/07/18 TIME: 13:02 Subjective NO acute events - pt comfortable - in good fluid status - con't resp ROS: NO F/C/N/V/D/C Objective Vitals Vital Signs Date Temp Pulse Resp B/P (MAP) Pulse Ox O2 O2 Flow FiO2 Time Delivery Rate 11/07/18 73 12:12 11/07/18 99.3 18 91/57 (68) 95 11:40 11/07/18 40 11:10 11/06/18 Trach 15:40 Collar Intake and Output 11/06/18 11/06/18 11/07/18 1515:00 23:00 07:00 IntakeIntake Total 1380 ml 1260 ml OutputOutput Total 1800 ml 1400 ml BalanceBalance -420 ml -140 ml Exam General: WN/WD/NAD, AOx 0 HEENT: Unicetric/atraumatic/EOMI (does not follow commands) NECK: trach Lymph: no lymphadenopathy HEART: regular with no S3, II/ systolic murmur at apex LUNGS: Coarse sounds ABD: soft, NT, ND, +BS : Intact Neuro: contracted SKIN: chronic changes EXT: trace edema Results/Medications Result Diagram: 11/07/1833 11/07/18 0533 Results 24 hrs Laboratory Tests Test 11/06/18 22:03 11/07/18 05:33 Bedside Glucose 120 White Blood Count 7.9 # Red Blood Count 3.15 L Hemoglobin 7.5 L Hematocrit 24.7 L Mean Corpuscular Volume 78.4 L Mean Corpuscular Hemoglobin 23.8 L Mean Corpuscular Hemoglobin Concent 30.4 L Red Cell Distribution Width 17.0 H Platelet Count 181 Mean Platelet Volume 13.2 H Immature Granulocytes % 1.900 H Neutrophils % Segmented Neutrophils % (Manual) 62 Band Neutrophils % (Manual) 4 Lymphocytes % Lymphocytes % (Manual) 19 Monocytes % Monocytes % (Manual) 8 Eosinophils % Eosinophils % (Manual) 1 Basophils % Basophils % (Manual) 5 H Metamyelocytes % (manual) 1 H Nucleated Red Blood Cells % 0.0 Immature Granulocytes # 0.150 H Neutrophils # Neutrophils # (Manual) 4.9 Band Neutrophils # 0.3 Lymphocytes (Manual) 1.5 Lymphocytes # Monocytes # Monocytes # (Manual) 0.6 Eosinophils # Basophils # Basophils # (Manual) 0.3 H Metamyelocytes # 0.0 Nucleated Red Blood Cells # Platelet Estimate NORMAL Giant Platelets 19 H Polychromasia 1+ Sodium Level 143 Potassium Level 3.2 L Chloride Level 113 H Carbon Dioxide Level 23 Anion Gap 7 Blood Urea Nitrogen 15 Creatinine 0.48 L Est Glomerular Filtrat Rate mL/min > 60 Glucose Level 109 Calcium Level 9.0 Home Meds Reported Medications Ascorbic Acid* (Vitamin C*) 500 Mg Capsule.sa, 500 MG GTB DAILY, CAP 10/30/18 Cran/Vitc/Mannose/Inulin/Brom (Uti-Stat Liquid) 3,875 Mg/30 Ml Liquid, 3875 MG GTB BID 10/30/18 Acetaminophen* (Acetaminophen*) 650 Mg Tablet, 650 MG GTB TRACH CHANGE PRN for PAIN, #30 TAB 10/30/18 Acetaminophen* (Acetaminophen*) 325 Mg Tablet, 650 MG GTB BID PRN for PAIN MANAGEMENT, #30 TAB 10/30/18 Metoclopramide Hcl* (Metoclopramide Hcl*) 10 Mg Tablet, 10 MG GTB Q6H PRN for NAUSEA AND OR VOMITING, TAB 10/30/18 Potassium Chloride* (Potassium Chloride*) 20 Meq/15 Ml Liquid, 20 MEQ GTB DAILY, ML DILUTE WITH 120 CCS OF WATER 10/30/18 Multivitamin* (Daily Value*) 1 Each Tablet, 1 TAB GTB DAILY, TAB 10/30/18 Levetiracetam* (Keppra* (Ped)) 100 Mg/Ml Liq, 1500 MG GTB BID for 30 Days, BOTTLE 10/30/18 Ferrous Sulfate (Ferrous Sulfate) 220 Mg/5 Ml Solution, 300 MG GTB BID 10/30/18 Dexlansoprazole (Dexilant) 60 Mg Cap., 60 MG GTB DAILY, #30 CAP 10/30/18 Cranberry Extract (Cranberry) 425 Mg Capsule, 425 MG GTB BID, CAP 10/30/18 Docusate Sodium* (Colace*) 100 Mg Capsule, 100 MG GTB QHS, #60 CAP 10/30/18 Chlorhexidine Gluconate (Peridex) 473 Ml Mouthwash, 15 ML MM Q12, BOTTLE 10/30/18 Albuterol Sulfate* (Albuterol Sulfate* Neb) 0.083%-3 Ml Neb, 2.5 MG NEB Q6 PRN for WHEEZING AND SOB, #30 VIAL 10/30/18 Albuterol Sulfate* (Albuterol Sulfate* Neb) 0.083%-3 Ml Neb, 2.5 MG NEB Q3H PRN for WHEEZING AND SOB, #30 VIAL 10/30/18 Medications Current Medications Albuterol (Proventil 0.083% (Neb)) 2.5 mg Q3H RESP THERAPY PRN NEB WHEEZING AND SOB; Start 10/30/18 at 22:00 Albuterol (Proventil 0.083% (Neb)) 2.5 mg Q6H RESP THERAPY PRN NEB WHEEZING AND SOB; Start 10/30/18 at 22:00 Ascorbic Acid (Vitamin C) 500 mg DAILY GTB Last administered on 11/07/18 09:45; Admin Dose 500 MG; Start 10/31/18 at 09:00 Metoclopramide HCl (Reglan) 10 mg Q6H PRN GTB NAUSEA AND/OR VOMITING; Start 10/30/18 at 22:00 Multivitamins (Multivitamin) 30 ml DAILY GTB Last administered on 11/07/18 09:46; Admin Dose 30 ML; Start 10/31/18 at 09:00 Pantoprazole (Protonix Tab) 40 mg DAILY@0600 PO Last administered on 11/07/18 06:16; Admin Dose 40 MG; Start 10/31/18 at 06:00 Ferrous Sulfate (Feosol Liquid Cup) 300 mg BID PO Last administered on 11/07/18 09:46; Admin Dose 300 MG; Start 10/30/18 at 22:00 Levetiracetam (Keppra Liquid) 1,500 mg BID GTB Last administered on 11/07/18 09:46; Admin Dose 1,500 MG; Start 10/30/18 at 22:30 Acetaminophen (Tylenol Liquid) 650 mg Q4H PRN GTB MILD PAIN(1-3)OR ELEVATED TEMP Last administered on 11/07/18 12:24; Admin Dose 650 MG; Start 10/31/18 at 00:00 Vancomycin HCl (Vanco Iv Per Pharmacy) VANCOMYCIN PER PHARMACY PER PROTOCOL XX ; Start 10/31/18 at 07:00 Nystatin (Nystatin Oint) 1 applic BID TOP Last administered on 11/07/18 09:46; Admin Dose 1 APPLIC; Start 10/31/18 at 21:00 Aspirin (Aspirin) 81 mg DAILY PO Last administered on 11/07/18 09:46; Admin Dose 81 MG; Start 11/01/18 at 09:00 Metoprolol Tartrate (Lopressor) 25 mg BID GTB Last administered on 11/06/18 21:25; Admin Dose 25 MG; Start 11/01/18 at 21:00 Tramadol HCl (Ultram) 50 mg Q4 PRN PO MODERATE PAIN LEVEL 4-6 Last administered on 11/05/18 03:18; Admin Dose 50 MG; Start 11/01/18 at 21:00 Metoprolol Tartrate (Lopressor) 5 mg Q4 PRN IV ELEVATED HEART RATE; Start 11/01/18 at 21:00 Docusate Sodium (Colace Liquid Cup) 100 mg BID GTB Last administered on 11/07/18 09:45; Admin Dose 100 MG; Start 11/02/18 at 09:00 Collagenase (Santyl) 1 applic DAILY TOP Last administered on 11/07/18 09:45; Admin Dose 1 APPLIC; Start 11/03/18 at 09:00 Midodrine (Proamatine) 5 mg TID@,13,17 GTB Last administered on 11/07/18 09:45; Admin Dose 5 MG; Start 11/03/18 at 02:30 Vancomycin HCl 250 ml @ 125 mls/hr Q24H IVPB Last administered on 11/07/18 12:24; Admin Dose 125 MLS/HR; Start 11/04/18 at 12:00 Potassium Chloride (Potassium Chloride Pwd/Soln) 20 meq BID GTB Last administered on 11/07/18 09:45; Admin Dose 20 MEQ; Start 11/04/18 at 09:00 Potassium Chloride/Dextrose 1,000 ml @ 60 mls/hr [id number] IV Last administered on 11/07/18 06:17; Admin Dose 60 MLS/HR; Start 11/04/18 at 14:30 Lorazepam (Ativan) 1 mg Q4H PRN IV AGITATION Last administered on 11/05/18 11:36; Admin Dose 1 MG; Start 11/05/18 at 11:30 Morphine Sulfate (morphine) 1 mg Q4H PRN IV SEVERE PAIN LEVEL 7-10 Last administered on 11/05/18at 13:07; Admin Dose 1 MG; Start 11/05/18 at 13:30 Piperacillin Sod/ Tazobactam Sod 100 ml @ 200 mls/hr Q8 IVPB Last administered on 11/07/18at 06:16; Admin Dose 200 MLS/HR; Start 11/05/18 at 14:00 Colistimethate Sodium (Colistin Inhal) 75 mg BID RESP THERAPY NEB ; Start 11/07/18 at 12:00 Assessment/Plan Hospital Course (Demo Recall) 1. Non-ST elevation myocardial infarction with up trending cardiac enzymes likely demand infarct in the setting of significant tachycardia and fevers, sepsis- downtrending - no active CP - no intervention planned - VS stable. 2. Abnormal electrocardiogram with nonspecific ST-T abnormalities - treated. BP in goodr rory. 3. Tachycardia, ongoing, likely due to the patient's underlying sepsis. Impr poly with RX. 4. Sepsis with the Gram-positive cocci group in clusters growing in blood and Gram-negative rods growing in urine. Con't anti-Bx. 5. Urinary tract infection- on meds. 6. Chronic respiratory failure, status post tracheostomy- on vent. 7. s/p G-tube.- feedsat goal. 8. Chronic anoxic encephalopathy. 9. Leukocytosis significantly improved - no fevers now. 10. Anemia. 11. Hypernatremia. FABIOLA WATERS MD Nov 07, 2018 13:04
--- NOTE | 2018-11-07 15:29 | CONS ---
Assessment/Plan Assessment/Plan Hospital Course (Demo Recall) Noncommunicative in no distress afebrile. Sputum culture grew Acinetobacter and gram-negative rods, repeat blood cultures negative Antimicrobials: Vancomycin, Zosyn, Colistin INH Microbiology: Blood culture on admission grew coag negative staph species, urine culture grew Proteus mirabilis. Sputum culture grew Acinetobacter and gram- negative rods, repeat blood cultures negative CT of the chest on admission revealed right lower lobe dense wench shaped consolidation with moderate bilateral peribronchial nodular opacities consistent with multifocal pneumonia. Hydronephrosis of the right kidney of mild severity secondary to partial visualization of a 10 mm stone in the right proximal ureter with wall thickening and inflammation of the right renal pelvic wall and proximal ureteral wall. Please see full report in the chart Physical examination: Chronically ill-appearing vegetative middle-aged man who is in no distress. Head atraumatic normocephalic neck is supple tracheostomy present chest rise symmetrical breath sounds diminished bases. Heart: S1-S2. Abdomen soft bowel sounds hypoactive. Extremities wasted contractured Assessment: 1. Severe sepsis, present on admission 2. Coag negative staph bacteremia, possibly line sepsis as patient had PICC line on admission that was discontinued 3. Multifocal healthcare associated pneumonia 4. Urinary tract infection with obstructive uropathy 5. Vegetative 6. Elevated lipase on admission==> no evidence for pancreatitis per CT 7. DNR Plan: Clinically unchanged, afebrile, continue antibiotics Consultation Date/Type/Reason Admit Date/Time October 30, 2018 at 08:15 Initial Consult Date Type of Consult id Requesting Provider: RICHARD GIRARD MD Date/Time of Note DATE: 11/07/18 TIME: 15:28 Exam/Review of Systems Exam Vitals Vital Signs Date Temp Pulse Resp B/P (MAP) Pulse Ox O2 O2 Flow FiO2 Time Delivery Rate 11/07/18 99.3 68 16 102/61 95 14:54 (75) 11/07/18 40 13:15 11/06/18 Trach 15:40 Collar Intake and Output 11/06/18 11/06/18 11/07/18 1515:00 23:00 07:00 IntakeIntake Total 1380 ml 1260 ml OutputOutput Total 1800 ml 1400 ml BalanceBalance -420 ml -140 ml Results Result Diagram: 11/07/18 0533 11/07/18 0511 Results 24hrs Laboratory Tests Test 11/06/18 22:03 11/07/18 05:33 Bedside Glucose 120 White Blood Count 7.9 # Red Blood Count 3.15 L Hemoglobin 7.5 L Hematocrit 24.7 L Mean Corpuscular Volume 78.4 L Mean Corpuscular Hemoglobin 23.8 L Mean Corpuscular Hemoglobin Concent 30.4 L Red Cell Distribution Width 17.0 H Platelet Count 181 Mean Platelet Volume 13.2 H Immature Granulocytes % 1.900 H Neutrophils % Segmented Neutrophils % (Manual) 62 Band Neutrophils % (Manual) 4 Lymphocytes % Lymphocytes % (Manual) 19 Monocytes % Monocytes % (Manual) 8 Eosinophils % Eosinophils % (Manual) 1 Basophils % Basophils % (Manual) 5 H Metamyelocytes % (manual) 1 H Nucleated Red Blood Cells % 0.0 Immature Granulocytes # 0.150 H Neutrophils # Neutrophils # (Manual) 4.9 Band Neutrophils # 0.3 Lymphocytes (Manual) 1.5 Lymphocytes # Monocytes # Monocytes # (Manual) 0.6 Eosinophils # Basophils # Basophils # (Manual) 0.3 H Metamyelocytes # 0.0 Nucleated Red Blood Cells # Platelet Estimate NORMAL Giant Platelets 19 H Polychromasia 1+ Sodium Level 143 Potassium Level 3.2 L Chloride Level 113 H Carbon Dioxide Level 23 Anion Gap 7 Blood Urea Nitrogen 15 Creatinine 0.48 L Est Glomerular Filtrat Rate mL/min > 60 Glucose Level 109 Calcium Level 9.0 Medications Medication Current Medications Albuterol (Proventil 0.083% (Neb)) 2.5 mg Q3H RESP THERAPY PRN NEB WHEEZING AND SOB; Start 10/30/18 at 22:00 Albuterol (Proventil 0.083% (Neb)) 2.5 mg Q6H RESP THERAPY PRN NEB WHEEZING AND SOB; Start 10/30/18 at 22:00 Ascorbic Acid (Vitamin C) 500 mg DAILY GTB Last administered on 11/07/18at 09:45; Admin Dose 500 MG; Start 10/31/18 at 09:00 Metoclopramide HCl (Reglan) 10 mg Q6H PRN GTB NAUSEA AND/OR VOMITING; Start 10/30/18 at 22:00 Multivitamins (Multivitamin) 30 ml DAILY GTB Last administered on 11/07/18at 09:46; Admin Dose 30 ML; Start 10/31/18 at 09:00 Pantoprazole (Protonix Tab) 40 mg DAILY@0600 PO Last administered on 11/07/18 06:16; Admin Dose 40 MG; Start 10/31/18 at 06:00 Ferrous Sulfate (Feosol Liquid Cup) 300 mg BID PO Last administered on 11/07/18 09:46; Admin Dose 300 MG; Start 10/30/18 at 22:00 Levetiracetam (Keppra Liquid) 1,500 mg BID GTB Last administered on 11/07/18 09:46; Admin Dose 1,500 MG; Start 10/30/18 at 22:30 Acetaminophen (Tylenol Liquid) 650 mg Q4H PRN GTB MILD PAIN(1-3)OR ELEVATED TEMP Last administered on 11/07/18 12:24; Admin Dose 650 MG; Start 10/31/18 at 00:00 Vancomycin HCl (Vanco Iv Per Pharmacy) VANCOMYCIN PER PHARMACY PER PROTOCOL XX ; Start 10/31/18 at 07:00 Nystatin (Nystatin Oint) 1 applic BID TOP Last administered on 11/07/18 09:46; Admin Dose 1 APPLIC; Start 10/31/18 at 21:00 Aspirin (Aspirin) 81 mg DAILY PO Last administered on 11/07/18 09:46; Admin Dose 81 MG; Start 11/01/18 at 09:00 Metoprolol Tartrate (Lopressor) 25 mg BID GTB Last administered on 11/06/18 21:25; Admin Dose 25 MG; Start 11/01/18 at 21:00 Tramadol HCl (Ultram) 50 mg Q4 PRN PO MODERATE PAIN LEVEL 4-6 Last administered on 11/05/18 03:18; Admin Dose 50 MG; Start 11/01/18 at 21:00 Metoprolol Tartrate (Lopressor) 5 mg Q4 PRN IV ELEVATED HEART RATE; Start 11/01/18 at 21:00 Docusate Sodium (Colace Liquid Cup) 100 mg BID GTB Last administered on 11/07/18 09:45; Admin Dose 100 MG; Start 11/02/18 at 09:00 Collagenase (Santyl) 1 applic DAILY TOP Last administered on 11/07/18 09:45; Admin Dose 1 APPLIC; Start 11/03/18 at 09:00 Midodrine (Proamatine) 5 mg TID@,, GTB Last administered on 11/07/18 13:00; Admin Dose 5 MG; Start 11/03/18 at 02:30 Vancomycin HCl 250 ml @ 125 mls/hr Q24H IVPB Last administered on 11/07/18 12:24; Admin Dose 125 MLS/HR; Start 11/04/18 at 12:00 Potassium Chloride (Potassium Chloride Pwd/Soln) 20 meq BID GTB Last administered on 11/07/18at 09:45; Admin Dose 20 MEQ; Start 11/04/18 at 09:00 Lorazepam (Ativan) 1 mg Q4H PRN IV AGITATION Last administered on 11/05/18 11:36; Admin Dose 1 MG; Start 11/05/18 at 11:30 Morphine Sulfate (morphine) 1 mg Q4H PRN IV SEVERE PAIN LEVEL 7-10 Last administered on 11/05/18 13:07; Admin Dose 1 MG; Start 11/05/18 at 13:30 Piperacillin Sod/ Tazobactam Sod 100 ml @ 200 mls/hr Q8 IVPB Last administered on 11/07/18at 06:16; Admin Dose 200 MLS/HR; Start 11/05/18 at 14:00 Colistimethate Sodium (Colistin Inhal) 75 mg BID RESP THERAPY NEB ; Start 11/07/18 at 12:00 Miscellaneous Information (*Rx Drug Level Order Reminder*) VANCO TROUGH 11/08 @ 1,100 1100 ONCE XX ; Start 11/08/18 at 11:00; Stop 11/08/18 at 11:01 YURY YOON NP Nov 07, 2018 15:29
[2018-11-07] MEDS: COLISTIMETHATE (25 MG/ML INHAL SYG) NEB SCH ×2 (16:38→20:45)
--- NOTE | 2018-11-07 16:43 | CONS ---
Consult Date/Type/Reason Admit Date/Time October 30, 2018 at 08:15 Initial Consult Date 11/03/18 Type of Consultation: Urology Reason for Consultation Urinary retention Requesting Provider: RICHARD GIRARD MD Date/Time of Note DATE: 11/07/18 TIME: 16:41 Subjective Patient is nonverbal, patient is on a respirator. Objective Vitals Vital Signs Date Temp Pulse Resp B/P (MAP) Pulse Ox O2 O2 Flow FiO2 Time Delivery Rate 11/07/18 75 16:10 11/07/18 99.3 15:48 11/07/18 21 96 40 15:15 11/07/18 102/61 14:54 (75) 11/06/18 Trach 15:40 Collar Intake and Output 11/06/18 11/06/18 11/07/18 1515:00 23:00 07:00 IntakeIntake Total 1380 ml 1260 ml OutputOutput Total 1800 ml 1400 ml BalanceBalance -420 ml -140 ml Exam The Charles catheter is draining clear urine. Results/Medications Result Diagram: 11/07/18 0533 11/07/18 0533 Results 24 hrs Laboratory Tests Test 11/06/18 22:03 11/07/18 05:33 Bedside Glucose 120 White Blood Count 7.9 # Red Blood Count 3.15 L Hemoglobin 7.5 L Hematocrit 24.7 L Mean Corpuscular Volume 78.4 L Mean Corpuscular Hemoglobin 23.8 L Mean Corpuscular Hemoglobin Concent 30.4 L Red Cell Distribution Width 17.0 H Platelet Count 181 Mean Platelet Volume 13.2 H Immature Granulocytes % 1.900 H Neutrophils % Segmented Neutrophils % (Manual) 62 Band Neutrophils % (Manual) 4 Lymphocytes % Lymphocytes % (Manual) 19 Monocytes % Monocytes % (Manual) 8 Eosinophils % Eosinophils % (Manual) 1 Basophils % Basophils % (Manual) 5 H Metamyelocytes % (manual) 1 H Nucleated Red Blood Cells % 0.0 Immature Granulocytes # 0.150 H Neutrophils # Neutrophils # (Manual) 4.9 Band Neutrophils # 0.3 Lymphocytes (Manual) 1.5 Lymphocytes # Monocytes # Monocytes # (Manual) 0.6 Eosinophils # Basophils # Basophils # (Manual) 0.3 H Metamyelocytes # 0.0 Nucleated Red Blood Cells # Platelet Estimate NORMAL Giant Platelets 19 H Polychromasia 1+ Sodium Level 143 Potassium Level 3.2 L Chloride Level 113 H Carbon Dioxide Level 23 Anion Gap 7 Blood Urea Nitrogen 15 Creatinine 0.48 L Est Glomerular Filtrat Rate mL/min > 60 Glucose Level 109 Calcium Level 9.0 Home Meds Reported Medications Ascorbic Acid* (Vitamin C*) 500 Mg Capsule.sa, 500 MG GTB DAILY, CAP 10/30/18 Cran/Vitc/Mannose/Inulin/Brom (Uti-Stat Liquid) 3,875 Mg/30 Ml Liquid, 3875 MG GTB BID 10/30/18 Acetaminophen* (Acetaminophen*) 650 Mg Tablet, 650 MG GTB TRACH CHANGE PRN for PAIN, #30 TAB 10/30/18 Acetaminophen* (Acetaminophen*) 325 Mg Tablet, 650 MG GTB BID PRN for PAIN MANAGEMENT, #30 TAB 10/30/18 Metoclopramide Hcl* (Metoclopramide Hcl*) 10 Mg Tablet, 10 MG GTB Q6H PRN for NAUSEA AND OR VOMITING, TAB 10/30/18 Potassium Chloride* (Potassium Chloride*) 20 Meq/15 Ml Liquid, 20 MEQ GTB DAILY, ML DILUTE WITH 120 CCS OF WATER 10/30/18 Multivitamin* (Daily Value*) 1 Each Tablet, 1 TAB GTB DAILY, TAB 10/30/18 Levetiracetam* (Keppra* (Ped)) 100 Mg/Ml Liq, 1500 MG GTB BID for 30 Days, BOTTLE 10/30/18 Ferrous Sulfate (Ferrous Sulfate) 220 Mg/5 Ml Solution, 300 MG GTB BID 10/30/18 Dexlansoprazole (Dexilant) 60 Mg Cap., 60 MG GTB DAILY, #30 CAP 10/30/18 Cranberry Extract (Cranberry) 425 Mg Capsule, 425 MG GTB BID, CAP 10/30/18 Docusate Sodium* (Colace*) 100 Mg Capsule, 100 MG GTB QHS, #60 CAP 10/30/18 Chlorhexidine Gluconate (Peridex) 473 Ml Mouthwash, 15 ML MM Q12, BOTTLE 10/30/18 Albuterol Sulfate* (Albuterol Sulfate* Neb) 0.083%-3 Ml Neb, 2.5 MG NEB Q6 PRN for WHEEZING AND SOB, #30 VIAL 10/30/18 Albuterol Sulfate* (Albuterol Sulfate* Neb) 0.083%-3 Ml Neb, 2.5 MG NEB Q3H PRN for WHEEZING AND SOB, #30 VIAL 10/30/18 Medications Current Medications Albuterol (Proventil 0.083% (Neb)) 2.5 mg Q3H RESP THERAPY PRN NEB WHEEZING AND SOB; Start 10/30/18 at 22:00 Albuterol (Proventil 0.083% (Neb)) 2.5 mg Q6H RESP THERAPY PRN NEB WHEEZING AND SOB; Start 10/30/18 at 22:00 Ascorbic Acid (Vitamin C) 500 mg DAILY GTB Last administered on 11/07/18 09:45; Admin Dose 500 MG; Start 10/31/18 at 09:00 Metoclopramide HCl (Reglan) 10 mg Q6H PRN GTB NAUSEA AND/OR VOMITING; Start 10/30/18 at 22:00 Multivitamins (Multivitamin) 30 ml DAILY GTB Last administered on 11/07/18 09:46; Admin Dose 30 ML; Start 10/31/18 at 09:00 Pantoprazole (Protonix Tab) 40 mg DAILY@0600 PO Last administered on 11/07/18 06:16; Admin Dose 40 MG; Start 10/31/18 at 06:00 Ferrous Sulfate (Feosol Liquid Cup) 300 mg BID PO Last administered on 11/07/18 09:46; Admin Dose 300 MG; Start 10/30/18 at 22:00 Levetiracetam (Keppra Liquid) 1,500 mg BID GTB Last administered on 11/07/18 09 :46; Admin Dose 1,500 MG; Start 10/30/18 at 22:30 Acetaminophen (Tylenol Liquid) 650 mg Q4H PRN GTB MILD PAIN(1-3)OR ELEVATED TEMP Last administered on 11/07/18 12:24; Admin Dose 650 MG; Start 10/31/18 at 00:00 Vancomycin HCl (Vanco Iv Per Pharmacy) VANCOMYCIN PER PHARMACY PER PROTOCOL XX ; Start 10/31/18 at 07:00 Nystatin (Nystatin Oint) 1 applic BID TOP Last administered on 11/07/18 09:46; Admin Dose 1 APPLIC; Start 10/31/18 at 21:00 Aspirin (Aspirin) 81 mg DAILY PO Last administered on 11/07/18 09:46; Admin Dose 81 MG; Start 11/01/18 at 09:00 Metoprolol Tartrate (Lopressor) 25 mg BID GTB Last administered on 11/06/18 21:25; Admin Dose 25 MG; Start 11/01/18 at 21:00 Tramadol HCl (Ultram) 50 mg Q4 PRN PO MODERATE PAIN LEVEL 4-6 Last administered on 11/05/18 03:18; Admin Dose 50 MG; Start 11/01/18 at 21:00 Metoprolol Tartrate (Lopressor) 5 mg Q4 PRN IV ELEVATED HEART RATE; Start 11/01/18 at 21:00 Docusate Sodium (Colace Liquid Cup) 100 mg BID GTB Last administered on 11/07/18 09:45; Admin Dose 100 MG; Start 11/02/18 at 09:00 Collagenase (Santyl) 1 applic DAILY TOP Last administered on 11/07/18 09:45; Admin Dose 1 APPLIC; Start 11/03/18 at 09:00 Midodrine (Proamatine) 5 mg TID@09,13,17 GTB Last administered on 11/07/18 13:00; Admin Dose 5 MG; Start 11/03/18 at 02:30 Vancomycin HCl 250 ml @ 125 mls/hr Q24H IVPB Last administered on 11/07/18 12:24; Admin Dose 125 MLS/HR; Start 11/04/18 at 12:00 Potassium Chloride (Potassium Chloride Pwd/Soln) 20 meq BID GTB Last adm inistered on 11/07/18 09:45; Admin Dose 20 MEQ; Start 11/04/18 at 09:00 Lorazepam (Ativan) 1 mg Q4H PRN IV AGITATION Last administered on 11/05/18 11:36; Admin Dose 1 MG; Start 11/05/18 at 11:30 Morphine Sulfate (morphine) 1 mg Q4H PRN IV SEVERE PAIN LEVEL 7-10 Last administered on 11/05/18 13:07; Admin Dose 1 MG; Start 11/05/18 at 13:30 Piperacillin Sod/ Tazobactam Sod 100 ml @ 200 mls/hr Q8 IVPB Last administered on 11/07/18 06:16; Admin Dose 200 MLS/HR; Start 11/05/18 at 14:00 Colistimethate Sodium (Colistin Inhal) 75 mg BID RESP THERAPY NEB Last administered on 11/07/18at 16:38; Admin Dose 75 MG; Start 11/07/18 at 12:00 Miscellaneous Information (*Rx Drug Level Order Reminder*) VANCO TROUGH 11/08 @ 1,100 1100 ONCE XX ; Start 11/08/18 at 11:00; Stop 11/08/18 at 11:01 Assessment/Plan Hospital Course (Demo Recall) This is a 47-year-old male, SNF resident at [facility]. He had attempted suicide in 2009. He has a past medical history of vent dependent Respiratory Failure, anoxic brain injury and encephalopathy, seizure disorder secondary to his anoxic brain injury, dysphagia, status post GT placement . The patient is admitted with c/o changes in his mental status. The patient has flexion contraction of the upper extremities and nursing staff indicated that he did not appear as rigid in his upper extremities. Patient was found to have urinary retention and a Charles catheter was inserted and 1200 mL drained out. Prior to that the patient has been incontinent. Urological consultation was therefore requested. The patient is encephalopathic and not capable of giving any history. All the information were obtained from reviewing his medical record. Renal ultrasound: Both kidneys are normal in echogenicity. There is normal renal cortical thickness without focal thinning or scarring. No solid renal masses are identified. There are multiple nonobstructing right intrarenal calculi measuring between 7-8 mm. No hydronephrosis is seen. No stone burden is noted within the left kidney. The right kidney measures 13.4 cm, and the left kidney measures 9.7 cm. Spot images of the pelvis demonstrating normally distended bladder with smooth contours. CT scan of the chest: There is right lower lobe dense wedge-shaped consolidation with moderate bilateral peribronchial nodular opacities consistent with multifocal pneumonia. Study for pulmonary embolus is severely limited due to motion with possible pulmonary embolus in the right lower lobe basilar segment however this may be artifactual from motion and repeat study may be considered. 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 There is hydronephrosis of the right kidney of mild severity secondary to partial visualization of a 10 mm stone in the right proximal ureter with wall thickening and inflammation of the right renal pelvic wall and proximal ureteral wall. Right hilar adenopathy is present which may be reactive in nature and can be reassessed with followup CT chest after 3 months. Atherosclerotic disease. No acute pulmonary process. Most likely this patient has had urinary retention for a long time and was ove rflowing. As far as the urinary retention we will just have to insert the Charles catheter and keep it in. The patient also does have bilateral kidney stones and a stone in the right upper ureter. Again considering the patient's general condition I would recommend to observe him for the stones. Presently his urine is clear and his renal function is good. Keep the Charles catheter in place. CASTILLO NAVARRETE MD Nov 07, 2018 16:43
--- NOTE | 2018-11-07 23:08 | CONS ---
Consult Date/Type/Reason Admit Date/Time October 30, 2018 at 08:15 Initial Consult Date 11/03/18 Type of Consultation: Pulm Requesting Provider: RICHARD GIRARD MD Date/Time of Note DATE: 11/07/18 TIME: 23:06 Subjective No events on the vent overnight. Objective Vitals Vital Signs Date Temp Pulse Resp B/P (MAP) Pulse Ox O2 O2 Flow FiO2 Time Delivery Rate 11/07/18 77 17 97 40 20:45 11/07/18 99.0 106/67 20:00 (80) 11/06/18 Trach 15:40 Collar Intake and Output 11/06/18 11/06/18 11/07/18 1515:00 23:00 07:00 IntakeIntake Total 1380 ml 1260 ml OutputOutput Total 1800 ml 1400 ml BalanceBalance -420 ml -140 ml Exam GENERAL: Chronically ill-appearing gentleman on mechanical ventilation VITAL SIGNS: per chart NECK: Supple. No JVD or lymphadenopathy. CARDIAC EXAM: S1, S2. No added sounds or murmurs. CHEST: Diminished air entry bilaterally ABDOMEN: Soft, nontender. No guarding or rebound. EXTREMITIES: No cyanosis, clubbing or edema. NEUROLOGIC: Contractures with generalized weakness Results/Medications Result Diagram: 11/07/18 0533 11/07/18 0533 Results 24 hrs Laboratory Tests Test 11/07/18 05:33 White Blood Count 7.9 # Red Blood Count 3.15 L Hemoglobin 7.5 L Hematocrit 24.7 L Mean Corpuscular Volume 78.4 L Mean Corpuscular Hemoglobin 23.8 L Mean Corpuscular Hemoglobin Concent 30.4 L Red Cell Distribution Width 17.0 H Platelet Count 181 Mean Platelet Volume 13.2 H Immature Granulocytes % 1.900 H Neutrophils % Segmented Neutrophils % (Manual) 62 Band Neutrophils % (Manual) 4 Lymphocytes % Lymphocytes % (Manual) 19 Monocytes % Monocytes % (Manual) 8 Eosinophils % Eosinophils % (Manual) 1 Basophils % Basophils % (Manual) 5 H Metamyelocytes % (manual) 1 H Nucleated Red Blood Cells % 0.0 Immature Granulocytes # 0.150 H Neutrophils # Neutrophils # (Manual) 4.9 Band Neutrophils # 0.3 Lymphocytes (Manual) 1.5 Lymphocytes # Monocytes # Monocytes # (Manual) 0.6 Eosinophils # Basophils # Basophils # (Manual) 0.3 H Metamyelocytes # 0.0 Nucleated Red Blood Cells # Platelet Estimate NORMAL Giant Platelets 19 H Polychromasia 1+ Sodium Level 143 Potassium Level 3.2 L Chloride Level 113 H Carbon Dioxide Level 23 Anion Gap 7 Blood Urea Nitrogen 15 Creatinine 0.48 L Est Glomerular Filtrat Rate mL/min > 60 Glucose Level 109 Calcium Level 9.0 Home Meds Reported Medications Ascorbic Acid* (Vitamin C*) 500 Mg Capsule.sa, 500 MG GTB DAILY, CAP 10/30/18 Cran/Vitc/Mannose/Inulin/Brom (Uti-Stat Liquid) 3,875 Mg/30 Ml Liquid, 3875 MG GTB BID 10/30/18 Acetaminophen* (Acetaminophen*) 650 Mg Tablet, 650 MG GTB TRACH CHANGE PRN for PAIN, #30 TAB 10/30/18 Acetaminophen* (Acetaminophen*) 325 Mg Tablet, 650 MG GTB BID PRN for PAIN MANAGEMENT, #30 TAB 10/30/18 Metoclopramide Hcl* (Metoclopramide Hcl*) 10 Mg Tablet, 10 MG GTB Q6H PRN for NAUSEA AND OR VOMITING, TAB 10/30/18 Potassium Chloride* (Potassium Chloride*) 20 Meq/15 Ml Liquid, 20 MEQ GTB DAILY, ML DILUTE WITH 120 CCS OF WATER 10/30/18 Multivitamin* (Daily Value*) 1 Each Tablet, 1 TAB GTB DAILY, TAB 10/30/18 Levetiracetam* (Keppra* (Ped)) 100 Mg/Ml Liq, 1500 MG GTB BID for 30 Days, BOTTLE 10/30/18 Ferrous Sulfate (Ferrous Sulfate) 220 Mg/5 Ml Solution, 300 MG GTB BID 10/30/18 Dexlansoprazole (Dexilant) 60 Mg Cap., 60 MG GTB DAILY, #30 CAP 10/30/18 Cranberry Extract (Cranberry) 425 Mg Capsule, 425 MG GTB BID, CAP 10/30/18 Docusate Sodium* (Colace*) 100 Mg Capsule, 100 MG GTB QHS, #60 CAP 10/30/18 Chlorhexidine Gluconate (Peridex) 473 Ml Mouthwash, 15 ML MM Q12, BOTTLE 10/30/18 Albuterol Sulfate* (Albuterol Sulfate* Neb) 0.083%-3 Ml Neb, 2.5 MG NEB Q6 PRN for WHEEZING AND SOB, #30 VIAL 10/30/18 Albuterol Sulfate* (Albuterol Sulfate* Neb) 0.083%-3 Ml Neb, 2.5 MG NEB Q3H PRN for WHEEZING AND SOB, #30 VIAL 10/30/18 Medications Current Medications Albuterol (Proventil 0.083% (Neb)) 2.5 mg Q3H RESP THERAPY PRN NEB WHEEZING AND SOB; Start 10/30/18 at 22:00 Albuterol (Proventil 0.083% (Neb)) 2.5 mg Q6H RESP THERAPY PRN NEB WHEEZING AND SOB; Start 10/30/18 at 22:00 Ascorbic Acid (Vitamin C) 500 mg DAILY GTB Last administered on 11/07/18 09:45; Admin Dose 500 MG; Start 10/31/18 at 09:00 Metoclopramide HCl (Reglan) 10 mg Q6H PRN GTB NAUSEA AND/OR VOMITING; Start 10/30/18 at 22:00 Multivitamins (Multivitamin) 30 ml DAILY GTB Last administered on 11/07/18 09:46; Admin Dose 30 ML; Start 10/31/18 at 09:00 Pantoprazole (Protonix Tab) 40 mg DAILY@0600 PO Last administered on 11/07/18 06:16; Admin Dose 40 MG; Start 10/31/18 at 06:00 Ferrous Sulfate (Feosol Liquid Cup) 300 mg BID PO Last administered on 11/07/18 22:03; Admin Dose 300 MG; Start 10/30/18 at 22:00 Levetiracetam (Keppra Liquid) 1,500 mg BID GTB Last administered on 11/07/18 22:03; Admin Dose 1,500 MG; Start 10/30/18 at 22:30 Acetaminophen (Tylenol Liquid) 650 mg Q4H PRN GTB MILD PAIN(1-3)OR ELEVATED TEMP Last administered on 11/07/18 12:24; Admin Dose 650 MG; Start 10/31/18 at 00:00 Vancomycin HCl (Vanco Iv Per Pharmacy) VANCOMYCIN PER PHARMACY PER PROTOCOL XX ; Start 10/31/18 at 07:00 Nystatin (Nystatin Oint) 1 applic BID TOP Last administered on 11/07/18at 22:05; Admin Dose 1 APPLIC; Start 10/31/18 at 21:00 Aspirin (Aspirin) 81 mg DAILY PO Last administered on 11/07/18 09:46; Admin Dose 81 MG; Start 11/01/18 at 09:00 Metoprolol Tartrate (Lopressor) 25 mg BID GTB Last administered on 11/06/18 21:25; Admin Dose 25 MG; Start 11/01/18 at 21:00 Tramadol HCl (Ultram) 50 mg Q4 PRN PO MODERATE PAIN LEVEL 4-6 Last administered on 11/05/18 03:18; Admin Dose 50 MG; Start 11/01/18 at 21:00 Metoprolol Tartrate (Lopressor) 5 mg Q4 PRN IV ELEVATED HEART RATE; Start 11/01/18 at 21:00 Docusate Sodium (Colace Liquid Cup) 100 mg BID GTB Last administered on 09:45; Admin Dose 100 MG; Start 11/02/18 at 09:00 Collagenase (Santyl) 1 applic DAILY TOP Last administered on 11/07/18 09:45; Admin Dose 1 APPLIC; Start 11/03/18 at 09:00 Midodrine (Proamatine) 5 mg TID@09,13,17 GTB Last administered on 11/07/18 16:52; Admin Dose 5 MG; Start 11/03/18 at 02:30 Vancomycin HCl 250 ml @ 125 mls/hr Q24H IVPB Last administered on 11/07/18 12:24; Admin Dose 125 MLS/HR; Start 11/04/18 at 12:00 Potassium Chloride (Potassium Chloride Pwd/Soln) 20 meq BID GTB Last administered on 11/07/18 22:03; Admin Dose 20 MEQ; Start 11/04/18 at 09:00 Lorazepam (Ativan) 1 mg Q4H PRN IV AGITATION Last administered on 11/05/18 11:36; Admin Dose 1 MG; Start 11/05/18 at 11:30 Morphine Sulfate (morphine) 1 mg Q4H PRN IV SEVERE PAIN LEVEL 7-10 Last administered on 11/05/18 13:07; Admin Dose 1 MG; Start 11/05/18 at 13:30 Piperacillin Sod/ Tazobactam Sod 100 ml @ 200 mls/hr Q8 IVPB Last administered on 6/2/19at 22:03; Admin Dose 200 MLS/HR; Start 11/05/18 at 14:00 Colistimethate Sodium (Colistin Inhal) 75 mg BID RESP THERAPY NEB Last administered on 11/07/18at 20:45; Admin Dose 75 MG; Start 11/07/18 at 12:00 Miscellaneous Information (*Rx Drug Level Order Reminder*) VANCO TROUGH 11/08 @ 1,100 1100 ONCE XX ; Start 11/08/18 at 11:00; Stop 11/08/18 at 11:01 Assessment/Plan Assessment/Plan (Daily) IMP: 1. Acute on chronic respiratory failure/Vent Dependence 2. Chronic encephalopathy 3. Anemia of chronic disease 4. Hypernatremia 5. Recurrent sepsis polymicrobial RECS: 1. Vent support 2. Abx 3. Follow H/H 4. TF/Free H20 LANNY TY MD Nov 07, 2018 23:08
[2018-11-08] VITALS (22 sets, daily range): BP systolic 98–116; BP diastolic 55–72; PULSE 77–94; RESP 16–37
[2018-11-08] MEDS: PANTOPRAZOLE (EC) 40 MG TAB PO SCH (06:00)
--- NOTE | 2018-11-08 07:17 | PN ---
DATE: 11/07/2018 SUBJECTIVE: The patient is unable to communicate. He is intubated through the tracheostomy, ventila tor dependent. 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 PHYSICAL EXAMINATION: GENERAL: The patient is 47-year-old gentleman who at this time is alert, well built. VITAL SIGNS: ____, blood pressure 91/57. CARDIOVASCULAR: Normal heart sounds. RESPIRATORY: Normal breath sounds. ABDOMEN: Shows soft abdomen. LABORATORY WORKUP: WBC 7900. Lipase is 1371 as of 11/05/2018. IMPRESSION: It seems the patient seems to be slowly resolving pancreatitis ____ is slow. PLAN: Continue symptomatic treatment. Continue Creon 1 tablet with each meal and at bedtime. I rec ommend to keep the patient n.p.o. Dictated By: LUCIE HUNTER MD NC/NTS Conf#: [id number] DID#: [id number] CC: DONTE NEWTON MD; RICHARD GIRARD MD;*End*
[2018-11-08] MEDS: PIPER-TAZO 3.375 GM IV (PMX) 100 ML IVPB SCH ×2 (07:18→21:07)
[2018-11-08] MEDS: COLISTIMETHATE (25 MG/ML INHAL SYG) NEB SCH ×2 (08:14→20:20)
[2018-11-08] MEDS: METOPROLOL 25 MG TAB GTB SCH ×2 (09:00→20:41)
[2018-11-08] MEDS: MIDODRINE 5 MG TAB GTB SCH ×3 (09:00→17:00)
[2018-11-08] MEDS: DOCUSATE SODIUM 10 MG/ML (10ML CUP) GTB SCH ×2 (09:47→21:06)
[2018-11-08] MEDS: BALSAM PERU/CASTOR OIL 60 GM TUBE TOP SCH (09:47)
[2018-11-08] MEDS: LEVETIRACETAM (100 MG/ML) 5ML CUP GTB SCH ×2 (09:47→21:06)
[2018-11-08] MEDS: MULTIVITAMINS 30 ML CUP GTB SCH (09:47)
[2018-11-08] MEDS: FERROUS SULFATE 60 MG/ML 5ML CUP PO SCH ×2 (09:47→21:06)
[2018-11-08] MEDS: COLLAGENASE 5 GM (UD JAR) TOP SCH (09:47)
[2018-11-08] MEDS: NYSTATIN 15 GM OINT TOP SCH ×2 (09:48→21:07)
[2018-11-08] MEDS: POTASSIUM CHLORIDE 20 MEQ POWDER FOR ORAL SOLN GTB SCH ×2 (09:48→21:06)
[2018-11-08] MEDS: ASCORBIC ACID 500 MG TAB GTB SCH (09:48)
[2018-11-08] MEDS: ASPIRIN 81 MG TAB PO SCH (09:48)
--- NOTE | 2018-11-08 10:46 | CONS ---
Assessment/Plan Assessment/Plan Hospital Course (Demo Recall) IMPRESSION: 1. Non-ST elevation myocardial infarction with up trending cardiac enzymes likely demand infarct in the setting of significant tachycardia and fevers, sepsis.-downtrending significantly 2. Abnormal electrocardiogram with nonspecific ST-T abnormalities. 3. Tachycardia, likely due to the patient's underlying sepsis-improved overall 4. Sepsis with the Gram-positive cocci group in clusters growing in blood and Gram-negative rods growing in urine. 5. Urinary tract infection. 6. Chronic respiratory failure, status post tracheostomy. 7. s/p G-tube. 8. Chronic anoxic encephalopathy. 9. Leukocytosis significantly improved. 10. Anemia-worsening 11. Hypernatremia-ongoing Recc: -Tele -Contineu asa -Contineu low dose BB as tolerated only and thus will reduce dose -trend enzymes -lovenox held due to worsening anemia Consultation Date/Type/Reason Admit Date/Time October 30, 2018 at 08:15 Initial Consult Date 10/31/18 Type of Consult Cardiology Reason for Consultation NSTEMI Requesting Provider: RICHARD GIRARD MD Date/Time of Note DATE: 11/08/18 TIME: 10:43 Exam/Review of Systems Vital Signs Vitals Vital Signs Date Temp Pulse Resp B/P (MAP) Pulse Ox O2 O2 Flow FiO2 Time Delivery Rate 11/08/18 72 19 96 40 08:15 11/08/18 99.4 109/67 07:57 (81) 11/06/18 Trach 15:40 Collar Intake and Output 11/07/18 11/07/18 11/08/18 1515:00 23:00 07:00 IntakeIntake Total 250 ml 100 ml 1260 ml OutputOutput Total 3000 ml 1400 ml BalanceBalance 250 ml -2900 ml -140 ml Exam Exam Review of Systems: CONSTITUTIONAL: No fevers, chills. PULMONARY: trached CARDIOVASCULAR: No chest pain/palpitations GASTROINTESTINAL: No nausea/vomiting. GENITOURINARY: No hematuria/dysuria. MUSCULOSKELETAL: No myagias/arthalgias. PSYCHIATRIC: The patient denies depression. NEUROLOGIC: encephalopathic Constitutional: alert Head: normocephalic ENMT: mucosa pink and moist Neck: supple, jvd Respiratory: clear to auscultation, diminished breath sounds (at bases/B) Cardiovascular: regular rate and rhythm Gastrointestinal: soft, non-tender Musculoskeletal: muscle tone (normal) Extremities: edema (no focal deficits) Neurological: other (enecphalopathic) Labs Result Diagram: 11/08/1839 11/08/18 0539 Results 24hrs Laboratory Tests Test 11/08/18 05:39 White Blood Count 6.8 Red Blood Count 3.37 L Hemoglobin 8.1 L Hematocrit 26.4 L Mean Corpuscular Volume 78.3 L Mean Corpuscular Hemoglobin 24.0 L Mean Corpuscular Hemoglobin Concent 30.7 L Red Cell Distribution Width 18.1 H Platelet Count 277 # Mean Platelet Volume 11.4 H Immature Granulocytes % 2.100 H Neutrophils % Segmented Neutrophils % (Manual) 64 Band Neutrophils % (Manual) 2 Lymphocytes % Lymphocytes % (Manual) 28 Monocytes % Monocytes % (Manual) 5 Eosinophils % Basophils % Basophils % (Manual) 1 Nucleated Red Blood Cells % 0.0 Immature Granulocytes # 0.140 H Neutrophils # Neutrophils # (Manual) 4.4 Band Neutrophils # 0.1 Lymphocytes (Manual) 1.9 Lymphocytes # Monocytes # Monocytes # (Manual) 0.3 Eosinophils # Basophils # Basophils # (Manual) 0.0 Nucleated Red Blood Cells # Platelet Estimate NORMAL Giant Platelets 16 H Anisocytosis 1+ Sodium Level 142 Potassium Level 3.6 Chloride Level 112 H Carbon Dioxide Level 22 Anion Gap 8 Blood Urea Nitrogen 12 Creatinine 0.45 L Est Glomerular Filtrat Rate mL/min > 60 Glucose Level 107 Calcium Level 8.9 Medications Medications Current Medications Albuterol (Proventil 0.083% (Neb)) 2.5 mg Q3H RESP THERAPY PRN NEB WHEEZING AND SOB; Start 10/30/18 at 22:00 Albuterol (Proventil 0.083% (Neb)) 2.5 mg Q6H RESP THERAPY PRN NEB WHEEZING AND SOB; Start 10/30/18 at 22:00 Ascorbic Acid (Vitamin C) 500 mg DAILY GTB Last administered on 11/08/18at 09:48; Admin Dose 500 MG; Start 10/31/18 at 09:00 Metoclopramide HCl (Reglan) 10 mg Q6H PRN GTB NAUSEA AND/OR VOMITING; Start 10/30/18 at 22:00 Multivitamins (Multivitamin) 30 ml DAILY GTB Last administered on 11/08/18at 09:47; Admin Dose 30 ML; Start 10/31/18 at 09:00 Pantoprazole (Protonix Tab) 40 mg DAILY@0600 PO Last administered on 11/08/18 06:00; Admin Dose 40 MG; Start 10/31/18 at 06:00 Ferrous Sulfate (Feosol Liquid Cup) 300 mg BID PO Last administered on 11/08/18 09:47; Admin Dose 300 MG; Start 10/30/18 at 22:00 Levetiracetam (Keppra Liquid) 1,500 mg BID GTB Last administered on 11/08/18 09:47; Admin Dose 1,500 MG; Start 10/30/18 at 22:30 Acetaminophen (Tylenol Liquid) 650 mg Q4H PRN GTB MILD PAIN(1-3)OR ELEVATED TEMP Last administered on 11/07/18 12:24; Admin Dose 650 MG; Start 10/31/18 at 00:00 Vancomycin HCl (Vanco Iv Per Pharmacy) VANCOMYCIN PER PHARMACY PER PROTOCOL XX ; Start 10/31/18 at 07:00 Nystatin (Nystatin Oint) 1 applic BID TOP Last administered on 11/08/18 09:48; Admin Dose 1 APPLIC; Start 10/31/18 at 21:00 Aspirin (Aspirin) 81 mg DAILY PO Last administered on 11/08/18 09:48; Admin Dose 81 MG; Start 11/01/18 at 09:00 Metoprolol Tartrate (Lopressor) 25 mg BID GTB Last administered on 11/06/18 21:25; Admin Dose 25 MG; Start 11/01/18 at 21:00 Tramadol HCl (Ultram) 50 mg Q4 PRN PO MODERATE PAIN LEVEL 4-6 Last administered on 11/05/18 03:18; Admin Dose 50 MG; Start 11/01/18 at 21:00 Metoprolol Tartrate (Lopressor) 5 mg Q4 PRN IV ELEVATED HEART RATE; Start 11/01/18 at 21:00 Docusate Sodium (Colace Liquid Cup) 100 mg BID GTB Last administered on 11/08/18 09:47; Admin Dose 100 MG; Start 11/02/18 at 09:00 Collagenase (Santyl) 1 applic DAILY TOP Last administered on 11/08/18 09:47; Admin Dose 1 APPLIC; Start 11/03/18 at 09:00 Midodrine (Proamatine) 5 mg TID@09,13,17 GTB Last administered on 11/07/18 16:52; Admin Dose 5 MG; Start 11/03/18 at 02:30 Vancomycin HCl 250 ml @ 125 mls/hr Q24H IVPB Last administered on 11/07/18 12:24; Admin Dose 125 MLS/HR; Start 11/04/18 at 12:00 Potassium Chloride (Potassium Chloride Pwd/Soln) 20 meq BID GTB Last administered on 11/08/18 09:48; Admin Dose 20 MEQ; Start 11/04/18 at 09:00 Lorazepam (Ativan) 1 mg Q4H PRN IV AGITATION Last administered on 11/05/18 11:36; Admin Dose 1 MG; Start 11/05/18 at 11:30 Morphine Sulfate (morphine) 1 mg Q4H PRN IV SEVERE PAIN LEVEL 7-10 Last administered on 11/05/18 13:07; Admin Dose 1 MG; Start 11/05/18 at 13:30 Piperacillin Sod/ Tazobactam Sod 100 ml @ 200 mls/hr Q8 IVPB Last administered on 11/08/18 07:18; Admin Dose 200 MLS/HR; Start 11/05/18 at 14:00 Colistimethate Sodium (Colistin Inhal) 75 mg BID RESP THERAPY NEB Last administered on 11/08/18 08:14; Admin Dose 75 MG; Start 11/07/18 at 12:00 Miscellaneous Information (*Rx Drug Level Order Reminder*) VANCO TROUGH 11/08 @ 1,100 1100 ONCE XX ; Start 11/08/18 at 11:00; Stop 11/08/18 at 11:01 ELOINA MISHRA Nov 08, 2018 10:46
--- NOTE | 2018-11-08 11:50 | CONS ---
Assessment/Plan Assessment/Plan Assessment/Plan (Daily) Ventilator setting; AC of 14, tidal volume 500, PEEP of 5, 40% FiO2. Recommendations; 1. Patient with history of VDRF and chronic encephalopathy admitted with severe bilateral pneumonia with significant interval improvement. 2. Stable seizure disorder. Continue current supportive care. Antibiotics per ID recommendations. Consider discharge to intermediate with continuation of antibiotics. Consultation Date/Type/Reason Admit Date/Time October 30, 2018 at 08:15 Initial Consult Date Type of Consult Pulmonary Patient is a 47-year-old male who has been transferred from intermediate because of fever. Patient had been diagnosed a UTI with possibly pyonephritis. Currently on appropriate antimicrobial regimen. Because of advanced encephalopathy, patient remains totally noncommunicative. However, patient did not appear to be in any distress. Past medical history; 1. Advanced encephalopathy 2. VDRF 3. G-tube placement. 4. Seizure disorder. Medications; reviewed. Allergies; none. Social history; not available. Family history; not available. Occupational history; patient is on disability. Review of system; unable to be obtained. General exam; young male, on ventilator via tracheostomy, non communicative and unresponsive. Currently no distress. Requesting Provider: RICHARD GIRARD MD Date/Time of Note DATE: 11/08/18 TIME: 11:48 24 HR Interval Summary Free Text/Dictation Patient condition is stable. Has remained hemodynamically stable. No untoward events reported. General exam; young male, on ventilator via tracheostomy, awake but noncommunicative. Currently in no distress. Exam/Review of Systems Exam Vitals Vital Signs Date Temp Pulse Resp B/P (MAP) Pulse Ox O2 O2 Flow FiO2 Time Delivery Rate 11/08/18 72 19 96 40 08:15 11/08/18 99.4 109/67 07:57 (81) 11/06/18 Trach 15:40 Collar Intake and Output 11/07/18 11/07/18 11/08/18 1515:00 23:00 07:00 IntakeIntake Total 250 ml 100 ml 1260 ml OutputOutput Total 3000 ml 1400 ml BalanceBalance 250 ml -2900 ml -140 ml Exam H EENT exam; supple neck, no JVD. No lymphadenopathy. Midline trachea. No thyromegaly. Patient is edentulous. Tracheostomy in place. Insertion site is clean. Chest exam; clear to auscultation. S1-S2 audible, no murmurs. Regular rhythm. Abdomen exam; soft, G-tube in place. Nondistended. No organomegaly. Bowel sounds audible. Extremity exam; no peripheral edema. Patient has a flexion contractures. DIRECTOR OF INDIVIDUAL GIVING exam; is awake but noncommunicative. Results Result Diagram: 11/08/18 0539 11/08/18 0539 Results 24hrs Laboratory Tests Test 11/08/18 05:39 11/08/18 10:32 White Blood Count 6.8 Red Blood Count 3.37 L Hemoglobin 8.1 L Hematocrit 26.4 L Mean Corpuscular Volume 78.3 L Mean Corpuscular Hemoglobin 24.0 L Mean Corpuscular Hemoglobin Concent 30.7 L Red Cell Distribution Width 18.1 H Platelet Count 277 # Mean Platelet Volume 11.4 H Immature Granulocytes % 2.100 H Neutrophils % Segmented Neutrophils % (Manual) 64 Band Neutrophils % (Manual) 2 Lymphocytes % Lymphocytes % (Manual) 28 Monocytes % Monocytes % (Manual) 5 Eosinophils % Basophils % Basophils % (Manual) 1 Nucleated Red Blood Cells % 0.0 Immature Granulocytes # 0.140 H Neutrophils # Neutrophils # (Manual) 4.4 Band Neutrophils # 0.1 Lymphocytes (Manual) 1.9 Lymphocytes # Monocytes # Monocytes # (Manual) 0.3 Eosinophils # Basophils # Basophils # (Manual) 0.0 Nucleated Red Blood Cells # Platelet Estimate NORMAL Giant Platelets 16 H Anisocytosis 1+ Sodium Level 142 Potassium Level 3.6 Chloride Level 112 H Carbon Dioxide Level 22 Anion Gap 8 Blood Urea Nitrogen 12 Creatinine 0.45 L Est Glomerular Filtrat Rate mL/min > 60 Glucose Level 107 Calcium Level 8.9 Vancomycin Level Trough 7.8 L Medications Medication Current Medications Albuterol (Proventil 0.083% (Neb)) 2.5 mg Q3H RESP THERAPY PRN NEB WHEEZING AND SOB; Start 10/30/18 at 22:00 Albuterol (Proventil 0.083% (Neb)) 2.5 mg Q6H RESP THERAPY PRN NEB WHEEZING AND SOB; Start 10/30/18 at 22:00 Ascorbic Acid (Vitamin C) 500 mg DAILY GTB Last administered on 11/08/18at 09:48; Admin Dose 500 MG; Start 10/31/18 at 09:00 Metoclopramide HCl (Reglan) 10 mg Q6H PRN GTB NAUSEA AND/OR VOMITING; Start 10/30/18 at 22:00 Multivitamins (Multivitamin) 30 ml DAILY GTB Last administered on 11/08/18 09:47; Admin Dose 30 ML; Start 10/31/18 at 09:00 Pantoprazole (Protonix Tab) 40 mg DAILY@0600 PO Last administered on 11/08/18 06:00; Admin Dose 40 MG; Start 10/31/18 at 06:00 Ferrous Sulfate (Feosol Liquid Cup) 300 mg BID PO Last administered on 11/08/18 09:47; Admin Dose 300 MG; Start 10/30/18 at 22:00 Levetiracetam (Keppra Liquid) 1,500 mg BID GTB Last administered on 11/08/1847; Admin Dose 1,500 MG; Start 10/30/18 at 22:30 Acetaminophen (Tylenol Liquid) 650 mg Q4H PRN GTB MILD PAIN(1-3)OR ELEVATED TEMP Last administered on 11/07/18 12:24; Admin Dose 650 MG; Start 10/31/18 at 00:00 Vancomycin HCl (Vanco Iv Per Pharmacy) VANCOMYCIN PER PHARMACY PER PROTOCOL XX ; Start 10/31/18 at 07:00 Nystatin (Nystatin Oint) 1 applic BID TOP Last administered on 11/08/18 09:48; Admin Dose 1 APPLIC; Start 10/31/18 at 21:00 Aspirin (Aspirin) 81 mg DAILY PO Last administered on 11/08/18 09:48; Admin Dose 81 MG; Start 11/01/18 at 09:00 Tramadol HCl (Ultram) 50 mg Q4 PRN PO MODERATE PAIN LEVEL 4-6 Last administered on 11/05/18 03:18; Admin Dose 50 MG; Start 11/01/18 at 21:00 Metoprolol Tartrate (Lopressor) 5 mg Q4 PRN IV ELEVATED HEART RATE; Start 11/01/18 at 21:00 Docusate Sodium (Colace Liquid Cup) 100 mg BID GTB Last administered on 11/08/18 09:47; Admin Dose 100 MG; Start 11/02/18 at 09:00 Collagenase (Santyl) 1 applic DAILY TOP Last administered on 11/08/18 09:47; Admin Dose 1 APPLIC; Start 11/03/18 at 09:00 Midodrine (Proamatine) 5 mg TID@,13,17 GTB Last administered on 11/07/18at 16:52; Admin Dose 5 MG; Start 11/03/18 at 02:30 Vancomycin HCl 250 ml @ 125 mls/hr Q24H IVPB Last administered on 11/07/18at 12: 24; Admin Dose 125 MLS/HR; Start 11/04/18 at 12:00; Stop 11/08/18 at 15:00 Potassium Chloride (Potassium Chloride Pwd/Soln) 20 meq BID GTB Last administered on 11/08/18 09:48; Admin Dose 20 MEQ; Start 11/04/18 at 09:00 Lorazepam (Ativan) 1 mg Q4H PRN IV AGITATION Last administered on 11/05/18at 11:36; Admin Dose 1 MG; Start 11/05/18 at 11:30 Morphine Sulfate (morphine) 1 mg Q4H PRN IV SEVERE PAIN LEVEL 7-10 Last administered on 11/05/18at 13:07; Admin Dose 1 MG; Start 11/05/18 at 13:30 Piperacillin Sod/ Tazobactam Sod 100 ml @ 200 mls/hr Q8 IVPB Last administered on 11/08/18 07:18; Admin Dose 200 MLS/HR; Start 11/05/18 at 14:00 Colistimethate Sodium (Colistin Inhal) 75 mg BID RESP THERAPY NEB Last administered on 11/08/18 08:14; Admin Dose 75 MG; Start 11/07/18 at 12:00 Metoprolol Tartrate (Lopressor) 12.5 mg BID GTB ; Start 11/08/18 at 21:00 MI JEFFERS Nov 08, 2018 11:50
[2018-11-08] MEDS: VANCOMYCIN 1 GM 250 ML IVPB SCH (12:42)
--- NOTE | 2018-11-08 14:38 | CONS ---
Assessment/Plan Assessment/Plan Hospital Course (Demo Recall) Noncommunicative in no distress. afebrile. Sputum culture grew Acinetobacter and gram-negative rods, repeat blood cultures negative Antimicrobials: Vancomycin, Zosyn, Colistin INH Microbiology: Blood culture on admission grew coag negative staph species, urine culture grew Proteus mirabilis. Sputum culture grew Acinetobacter and gram- negative rods, repeat blood cultures negative CT of the chest on admission revealed right lower lobe dense wench shaped consolidation with moderate bilateral peribronchial nodular opacities consistent with multifocal pneumonia. Hydronephrosis of the right kidney of mild severity secondary to partial visualization of a 10 mm stone in the right proximal ureter with wall thickening and inflammation of the right renal pelvic wall and proximal ureteral wall. Please see full report in the chart Physical examination: Chronically ill-appearing vegetative middle-aged man who is in no distress. Head atraumatic normocephalic neck is supple tracheostomy present chest rise symmetrical breath sounds diminished bases. Heart: S1-S2. Abdomen soft bowel sounds hypoactive. Extremities wasted contractured Assessment: 1. Severe sepsis, present on admission 2. Coag negative staph bacteremia, possibly line sepsis as patient had PICC line on admission that was discontinued 3. Multifocal healthcare associated pneumonia 4. Urinary tract infection with obstructive uropathy 5. Vegetative 6. Elevated lipase on admission==> no evidence for pancreatitis per CT 7. DNR Plan: Clinically unchanged, afebrile, okay discharge on current antibiotics for 7 more days Consultation Date/Type/Reason Admit Date/Time October 30, 2018 at 08:15 Initial Consult Date Type of Consult id Requesting Provider: RICHARD GIRARD MD Date/Time of Note DATE: 11/08/18 TIME: 14:37 Exam/Review of Systems Exam Vitals Vital Signs Date Temp Pulse Resp B/P (MAP) Pulse Ox O2 O2 Flow FiO2 Time Delivery Rate 11/08/18 85 12:00 11/08/18 98.9 20 116/64 100 11:58 (81) 11/08/18 40 08:15 11/06/18 Trach 15:40 Collar Intake and Output 11/07/18 11/07/18 11/08/18 1515:00 23:00 07:00 IntakeIntake Total 250 ml 100 ml 1260 ml OutputOutput Total 3000 ml 1400 ml BalanceBalance 250 ml -2900 ml -140 ml Results Result Diagram: 11/08/18 0539 11/08/18 0539 Results 24hrs Laboratory Tests Test 11/08/18 05:39 11/08/18 10:32 White Blood Count 6.8 Red Blood Count 3.37 L Hemoglobin 8.1 L Hematocrit 26.4 L Mean Corpuscular Volume 78.3 L Mean Corpuscular Hemoglobin 24.0 L Mean Corpuscular Hemoglobin Concent 30.7 L Red Cell Distribution Width 18.1 H Platelet Count 277 # Mean Platelet Volume 11.4 H Immature Granulocytes % 2.100 H Neutrophils % Segmented Neutrophils % (Manual) 64 Band Neutrophils % (Manual) 2 Lymphocytes % Lymphocytes % (Manual) 28 Monocytes % Monocytes % (Manual) 5 Eosinophils % Basophils % Basophils % (Manual) 1 Nucleated Red Blood Cells % 0.0 Immature Granulocytes # 0.140 H Neutrophils # Neutrophils # (Manual) 4.4 Band Neutrophils # 0.1 Lymphocytes (Manual) 1.9 Lymphocytes # Monocytes # Monocytes # (Manual) 0.3 Eosinophils # Basophils # Basophils # (Manual) 0.0 Nucleated Red Blood Cells # Platelet Estimate NORMAL Giant Platelets 16 H Anisocytosis 1+ Sodium Level 142 Potassium Level 3.6 Chloride Level 112 H Carbon Dioxide Level 22 Anion Gap 8 Blood Urea Nitrogen 12 Creatinine 0.45 L Est Glomerular Filtrat Rate mL/min > 60 Glucose Level 107 Calcium Level 8.9 Vancomycin Level Trough 7.8 L Medications Medication Current Medications Albuterol (Proventil 0.083% (Neb)) 2.5 mg Q3H RESP THERAPY PRN NEB WHEEZING AND SOB; Start 10/30/18 at 22:00 Albuterol (Proventil 0.083% (Neb)) 2.5 mg Q6H RESP THERAPY PRN NEB WHEEZING AND SOB; Start 10/30/18 at 22:00 Ascorbic Acid (Vitamin C) 500 mg DAILY GTB Last administered on 11/08/18at 09:48; Admin Dose 500 MG; Start 10/31/18 at 09:00 Metoclopramide HCl (Reglan) 10 mg Q6H PRN GTB NAUSEA AND/OR VOMITING; Start 10/30/18 at 22:00 Multivitamins (Multivitamin) 30 ml DAILY GTB Last administered on 11/08/18at 09:47; Admin Dose 30 ML; Start 10/31/18 at 09:00 Pantoprazole (Protonix Tab) 40 mg DAILY@0600 PO Last administered on 11/08/18 06:00; Admin Dose 40 MG; Start 10/31/18 at 06:00 Ferrous Sulfate (Feosol Liquid Cup) 300 mg BID PO Last administered on 11/08/18 09:47; Admin Dose 300 MG; Start 10/30/18 at 22:00 Levetiracetam (Keppra Liquid) 1,500 mg BID GTB Last administered on 11/08/18 09:47; Admin Dose 1,500 MG; Start 10/30/18 at 22:30 Acetaminophen (Tylenol Liquid) 650 mg Q4H PRN GTB MILD PAIN(1-3)OR ELEVATED TEMP Last administered on 11/07/18 12:24; Admin Dose 650 MG; Start 10/31/18 at 00:00 Vancomycin HCl (Vanco Iv Per Pharmacy) VANCOMYCIN PER PHARMACY PER PROTOCOL XX ; Start 10/31/18 at 07:00 Nystatin (Nystatin Oint) 1 applic BID TOP Last administered on 11/08/18 09:48; Admin Dose 1 APPLIC; Start 10/31/18 at 21:00 Aspirin (Aspirin) 81 mg DAILY PO Last administered on 11/08/18 09:48; Admin Dose 81 MG; Start 11/01/18 at 09:00 Tramadol HCl (Ultram) 50 mg Q4 PRN PO MODERATE PAIN LEVEL 4-6 Last administered on 11/05/18 03:18; Admin Dose 50 MG; Start 11/01/18 at 21:00 Metoprolol Tartrate (Lopressor) 5 mg Q4 PRN IV ELEVATED HEART RATE; Start 11/01/18 at 21:00 Docusate Sodium (Colace Liquid Cup) 100 mg BID GTB Last administered on 11/08/18 09:47; Admin Dose 100 MG; Start 11/02/18 at 09:00 Collagenase (Santyl) 1 applic DAILY TOP Last administered on 11/08/18 09:47; Admin Dose 1 APPLIC; Start 11/03/18 at 09:00 Midodrine (Proamatine) 5 mg TID@,13,17 GTB Last administered on 11/07/18 16:52; Admin Dose 5 MG; Start 11/03/18 at 02:30 Vancomycin HCl 250 ml @ 125 mls/hr Q24H IVPB Last administered on 11/08/18 12:42; Admin Dose 125 MLS/HR; Start 11/04/18 at 12:00; Stop 11/08/18 at 15:00 Potassium Chloride (Potassium Chloride Pwd/Soln) 20 meq BID GTB Last administered on 11/08/18 09:48; Admin Dose 20 MEQ; Start 11/04/18 at 09:00 Lorazepam (Ativan) 1 mg Q4H PRN IV AGITATION Last administered on 11/05/18at 11:36; Admin Dose 1 MG; Start 11/05/18 at 11:30 Morphine Sulfate (morphine) 1 mg Q4H PRN IV SEVERE PAIN LEVEL 7-10 Last administered on 11/05/18 13:07; Admin Dose 1 MG; Start 11/05/18 at 13:30 Piperacillin Sod/ Tazobactam Sod 100 ml @ 200 mls/hr Q8 IVPB Last administered on 11/08/18 07:18; Admin Dose 200 MLS/HR; Start 11/05/18 at 14:00 Colistimethate Sodium (Colistin Inhal) 75 mg BID RESP THERAPY NEB Last administered on 11/08/18 08:14; Admin Dose 75 MG; Start 11/07/18 at 12:00 Metoprolol Tartrate (Lopressor) 12.5 mg BID GTB ; Start 11/08/18 at 21:00 Vancomycin HCl 1.5 gm/Sodium Chloride 250 ml @ 83.333 mls/ hr Q24H IVPB ; Start 11/09/18 at 12:00 YURY YOON NP Nov 08, 2018 14:38
--- NOTE | 2018-11-08 14:41 | CONS ---
Assessment/Plan Assessment/Plan Hospital Course (Demo Recall) Noncommunicative in no distress. afebrile. Sputum culture grew Acinetobacter and gram-negative rods, repeat blood cultures negative Antimicrobials: Vancomycin, Zosyn, Colistin INH Microbiology: Blood culture on admission grew coag negative staph species, urine culture grew Proteus mirabilis. Sputum culture grew Acinetobacter, Pseudomonas and Klebsiella ESBL susceptible to gentamicin CT of the chest on admission revealed right lower lobe dense wench shaped consolidation with moderate bilateral peribronchial nodular opacities consistent with multifocal pneumonia. Hydronephrosis of the right kidney of mild severity secondary to partial visualization of a 10 mm stone in the right proximal ureter with wall thickening and inflammation of the right renal pelvic wall and proximal ureteral wall. Please see full report in the chart Physical examination: Chronically ill-appearing vegetative middle-aged man who is in no distress. Head atraumatic normocephalic neck is supple tracheostomy present chest rise symmetrical breath sounds diminished bases. Heart: S1-S2. Abdomen soft bowel sounds hypoactive. Extremities wasted contractured Assessment: 1. Severe sepsis, present on admission 2. Coag negative staph bacteremia, possibly line sepsis as patient had PICC line on admission that was discontinued 3. Multifocal healthcare associated pneumonia 4. Urinary tract infection with obstructive uropathy 5. Vegetative 6. Elevated lipase ?pancreatitis 7. DNR Plan: Clinically unchanged, afebrile, will add Gentamicin and dc Vanco, monitor lipase, f/u GI rec-s Consultation Date/Type/Reason Admit Date/Time October 30, 2018 at 08:15 Initial Consult Date Type of Consult id Requesting Provider: RICHARD GIRARD MD Date/Time of Note DATE: 11/08/18 TIME: 14:39 Exam/Review of Systems Exam Vitals Vital Signs Date Temp Pulse Resp B/P (MAP) Pulse Ox O2 O2 Flow FiO2 Time Delivery Rate 11/08/18 85 12:00 11/08/18 98.9 20 116/64 100 11:58 (81) 11/08/18 40 08:15 11/06/18 Trach 15:40 Collar Intake and Output 11/07/18 11/07/18 11/08/18 1515:00 23:00 07:00 IntakeIntake Total 250 ml 100 ml 1260 ml OutputOutput Total 3000 ml 1400 ml BalanceBalance 250 ml -2900 ml -140 ml Results Result Diagram: 11/08/18 0539 11/08/18 0539 Results 24hrs Laboratory Tests Test 11/08/18 05:39 11/08/18 10:32 White Blood Count 6.8 Red Blood Count 3.37 L Hemoglobin 8.1 L Hematocrit 26.4 L Mean Corpuscular Volume 78.3 L Mean Corpuscular Hemoglobin 24.0 L Mean Corpuscular Hemoglobin Concent 30.7 L Red Cell Distribution Width 18.1 H Platelet Count 277 # Mean Platelet Volume 11.4 H Immature Granulocytes % 2.100 H Neutrophils % Segmented Neutrophils % (Manual) 64 Band Neutrophils % (Manual) 2 Lymphocytes % Lymphocytes % (Manual) 28 Monocytes % Monocytes % (Manual) 5 Eosinophils % Basophils % Basophils % (Manual) 1 Nucleated Red Blood Cells % 0.0 Immature Granulocytes # 0.140 H Neutrophils # Neutrophils # (Manual) 4.4 Band Neutrophils # 0.1 Lymphocytes (Manual) 1.9 Lymphocytes # Monocytes # Monocytes # (Manual) 0.3 Eosinophils # Basophils # Basophils # (Manual) 0.0 Nucleated Red Blood Cells # Platelet Estimate NORMAL Giant Platelets 16 H Anisocytosis 1+ Sodium Level 142 Potassium Level 3.6 Chloride Level 112 H Carbon Dioxide Level 22 Anion Gap 8 Blood Urea Nitrogen 12 Creatinine 0.45 L Est Glomerular Filtrat Rate mL/min > 60 Glucose Level 107 Calcium Level 8.9 Vancomycin Level Trough 7.8 L Medications Medication Current Medications Albuterol (Proventil 0.083% (Neb)) 2.5 mg Q3H RESP THERAPY PRN NEB WHEEZING AND SOB; Start 10/30/18 at 22:00 Albuterol (Proventil 0.083% (Neb)) 2.5 mg Q6H RESP THERAPY PRN NEB WHEEZING AND SOB; Start 10/30/18 at 22:00 Ascorbic Acid (Vitamin C) 500 mg DAILY GTB Last administered on 11/08/18at 09:48; Admin Dose 500 MG; Start 10/31/18 at 09:00 Metoclopramide HCl (Reglan) 10 mg Q6H PRN GTB NAUSEA AND/OR VOMITING; Start 10/30/18 at 22:00 Multivitamins (Multivitamin) 30 ml DAILY GTB Last administered on 11/08/18at 09:47; Admin Dose 30 ML; Start 10/31/18 at 09:00 Pantoprazole (Protonix Tab) 40 mg DAILY@0600 PO Last administered on 11/08/18 06:00; Admin Dose 40 MG; Start 10/31/18 at 06:00 Ferrous Sulfate (Feosol Liquid Cup) 300 mg BID PO Last administered on 11/08/18 09:47; Admin Dose 300 MG; Start 10/30/18 at 22:00 Levetiracetam (Keppra Liquid) 1,500 mg BID GTB Last administered on 11/08/18 09:47; Admin Dose 1,500 MG; Start 10/30/18 at 22:30 Acetaminophen (Tylenol Liquid) 650 mg Q4H PRN GTB MILD PAIN(1-3)OR ELEVATED TEMP Last administered on 11/07/18 12:24; Admin Dose 650 MG; Start 10/31/18 at 00:00 Vancomycin HCl (Vanco Iv Per Pharmacy) VANCOMYCIN PER PHARMACY PER PROTOCOL XX ; Start 10/31/18 at 07:00 Nystatin (Nystatin Oint) 1 applic BID TOP Last administered on 11/08/18 09:48; Admin Dose 1 APPLIC; Start 10/31/18 at 21:00 Aspirin (Aspirin) 81 mg DAILY PO Last administered on 11/08/18 09:48; Admin Dose 81 MG; Start 11/01/18 at 09:00 Tramadol HCl (Ultram) 50 mg Q4 PRN PO MODERATE PAIN LEVEL 4-6 Last administered on 11/05/18 03:18; Admin Dose 50 MG; Start 11/01/18 at 21:00 Metoprolol Tartrate (Lopressor) 5 mg Q4 PRN IV ELEVATED HEART RATE; Start 11/01/18 at 21:00 Docusate Sodium (Colace Liquid Cup) 100 mg BID GTB Last administered on 11/08/18 09:47; Admin Dose 100 MG; Start 11/02/18 at 09:00 Collagenase (Santyl) 1 applic DAILY TOP Last administered on 11/08/18 09:47; Admin Dose 1 APPLIC; Start 11/03/18 at 09:00 Midodrine (Proamatine) 5 mg TID@,,17 GTB Last administered on 11/07/18 16:52; Admin Dose 5 MG; Start 11/03/18 at 02:30 Vancomycin HCl 250 ml @ 125 mls/hr Q24H IVPB Last administered on 11/08/18 12:42; Admin Dose 125 MLS/HR; Start 11/04/18 at 12:00; Stop 11/08/18 at 15:00 Potassium Chloride (Potassium Chloride Pwd/Soln) 20 meq BID GTB Last administered on 11/08/18 09:48; Admin Dose 20 MEQ; Start 11/04/18 at 09:00 Lorazepam (Ativan) 1 mg Q4H PRN IV AGITATION Last administered on 11/05/18 11:36; Admin Dose 1 MG; Start 11/05/18 at 11:30 Morphine Sulfate (morphine) 1 mg Q4H PRN IV SEVERE PAIN LEVEL 7-10 Last administered on 11/05/18 13:07; Admin Dose 1 MG; Start 11/05/18 at 13:30 Piperacillin Sod/ Tazobactam Sod 100 ml @ 200 mls/hr Q8 IVPB Last administered on 11/08/18 07:18; Admin Dose 200 MLS/HR; Start 11/05/18 at 14:00 Colistimethate Sodium (Colistin Inhal) 75 mg BID RESP THERAPY NEB Last administered on 11/08/18 08:14; Admin Dose 75 MG; Start 11/07/18 at 12:00 Metoprolol Tartrate (Lopressor) 12.5 mg BID GTB ; Start 11/08/18 at 21:00 Vancomycin HCl 1.5 gm/Sodium Chloride 250 ml @ 83.333 mls/ hr Q24H IVPB ; Start 11/09/18 at 12:00 YURY YOON NP Nov 08, 2018 14:41
--- NOTE | 2018-11-08 14:51 | PN ---
Date/Time of Note Date/Time of Note DATE: 11/08/18 TIME: 14:44 Assessment/Plan VTE Prophylaxis Risk score (from Ns)>0 risk: 5 SCD applied (from Ns): Yes Pharmacological prophylaxis: LMWH Lines/Catheters IV [facility]ter Type [facility]from [facility] Peripheral IV Urinary Cath still in place: Yes Reason Cath still needed: urinary retention Assessment/Plan Hospital Course Patient continues on ventilatory support, continued on contact isolation for multiple drug-resistant organisms in sputum, patient antibiotics changed to gentamicin. Assessment/Plan -Urinary retention. Dr. Regan is following in urology consultation. Continue Charles catheter. -Hypernatremia, continue free water flushes where G-tube. -Sepsis with gram-positive cocci bacteremia MDR Proteus UTI. Continue antibiotics per ID. Dr. Matias is following in infection disease consultation. -Non-ST elevation myocardial infarction, continue aspirin, beta-samantha. Love nox is held due to thrombocytopenia. Dr. Flor is following in cardiology consultation. -Pancreatitis. Dr. Walton is following in gastroenterology consultation. -Ventilator dependent respiratory failure with tracheostomy. -Anoxic encephalopathy status post cardiac arrest in 2009 -Ventilator dependent respiratory failure -Dysphagia with PEG -Seizure disorder, continue Keppra. -Schizophrenia -Multiple wounds, continue current wound care, offloading. Further recommendations based on clinical course. Plan of care discussed with Dr. Courtney. Result Diagram: 11/08/18 0539 11/08/18 0539 Results 24hrs Laboratory Tests Test 11/08/18 05:39 11/08/18 10:32 White Blood Count 6.8 Red Blood Count 3.37 L Hemoglobin 8.1 L Hematocrit 26.4 L Mean Corpuscular Volume 78.3 L Mean Corpuscular Hemoglobin 24.0 L Mean Corpuscular Hemoglobin Concent 30.7 L Red Cell Distribution Width 18.1 H Platelet Count 277 # Mean Platelet Volume 11.4 H Immature Granulocytes % 2.100 H Neutrophils % Segmented Neutrophils % (Manual) 64 Band Neutrophils % (Manual) 2 Lymphocytes % Lymphocytes % (Manual) 28 Monocytes % Monocytes % (Manual) 5 Eosinophils % Basophils % Basophils % (Manual) 1 Nucleated Red Blood Cells % 0.0 Immature Granulocytes # 0.140 H Neutrophils # Neutrophils # (Manual) 4.4 Band Neutrophils # 0.1 Lymphocytes (Manual) 1.9 Lymphocytes # Monocytes # Monocytes # (Manual) 0.3 Eosinophils # Basophils # Basophils # (Manual) 0.0 Nucleated Red Blood Cells # Platelet Estimate NORMAL Giant Platelets 16 H Anisocytosis 1+ Sodium Level 142 Potassium Level 3.6 Chloride Level 112 H Carbon Dioxide Level 22 Anion Gap 8 Blood Urea Nitrogen 12 Creatinine 0.45 L Est Glomerular Filtrat Rate mL/min > 60 Glucose Level 107 Calcium Level 8.9 Vancomycin Level Trough 7.8 L Exam/Review of Systems Exam Vitals Vital Signs Date Temp Pulse Resp B/P (MAP) Pulse Ox O2 O2 Flow FiO2 Time Delivery Rate 11/08/18 85 12:00 11/08/18 98.9 20 116/64 100 11:58 (81) 11/08/18 40 08:15 11/06/18 Trach 15:40 Collar Intake and Output 11/07/18 11/07/18 11/08/18 1515:00 23:00 07:00 IntakeIntake Total 250 ml 100 ml 1260 ml OutputOutput Total 3000 ml 1400 ml BalanceBalance 250 ml -2900 ml -140 ml Exam Constitutional: frail Neck: supple, other (Tracheostomy) Respiratory: diminished breath sounds Cardiovascular: regular rate and rhythm, other Gastrointestinal: soft, tender Musculoskeletal: other Extremities: other (Contracted extremities) Neurological: other (Noncommunicative) Skin: other (Multiple wounds) Results Results 24hrs Laboratory Tests Test 11/08/18 05:39 11/08/18 10:32 White Blood Count 6.8 Red Blood Count 3.37 L Hemoglobin 8.1 L Hematocrit 26.4 L Mean Corpuscular Volume 78.3 L Mean Corpuscular Hemoglobin 24.0 L Mean Corpuscular Hemoglobin Concent 30.7 L Red Cell Distribution Width 18.1 H Platelet Count 277 # Mean Platelet Volume 11.4 H Immature Granulocytes % 2.100 H Neutrophils % Segmented Neutrophils % (Manual) 64 Band Neutrophils % (Manual) 2 Lymphocytes % Lymphocytes % (Manual) 28 Monocytes % Monocytes % (Manual) 5 Eosinophils % Basophils % Basophils % (Manual) 1 Nucleated Red Blood Cells % 0.0 Immature Granulocytes # 0.140 H Neutrophils # Neutrophils # (Manual) 4.4 Band Neutrophils # 0.1 Lymphocytes (Manual) 1.9 Lymphocytes # Monocytes # Monocytes # (Manual) 0.3 Eosinophils # Basophils # Basophils # (Manual) 0.0 Nucleated Red Blood Cells # Platelet Estimate NORMAL Giant Platelets 16 H Anisocytosis 1+ Sodium Level 142 Potassium Level 3.6 Chloride Level 112 H Carbon Dioxide Level 22 Anion Gap 8 Blood Urea Nitrogen 12 Creatinine 0.45 L Est Glomerular Filtrat Rate mL/min > 60 Glucose Level 107 Calcium Level 8.9 Vancomycin Level Trough 7.8 L Medications Medication Current Medications Albuterol (Proventil 0.083% (Neb)) 2.5 mg Q3H RESP THERAPY PRN NEB WHEEZING AND SOB; Start 10/30/18 at 22:00 Albuterol (Proventil 0.083% (Neb)) 2.5 mg Q6H RESP THERAPY PRN NEB WHEEZING AND SOB; Start 10/30/18 at 22:00 Ascorbic Acid (Vitamin C) 500 mg DAILY GTB Last administered on 11/08/18 09:48; Admin Dose 500 MG; Start 10/31/18 at 09:00 Metoclopramide HCl (Reglan) 10 mg Q6H PRN GTB NAUSEA AND/OR VOMITING; Start 10/30/18 at 22:00 Multivitamins (Multivitamin) 30 ml DAILY GTB Last administered on 11/08/18 09:47; Admin Dose 30 ML; Start 10/31/18 at 09:00 Pantoprazole (Protonix Tab) 40 mg DAILY@0600 PO Last administered on 11/08/18 06:00; Admin Dose 40 MG; Start 10/31/18 at 06:00 Ferrous Sulfate (Feosol Liquid Cup) 300 mg BID PO Last administered on 11/08/18 09:47; Admin Dose 300 MG; Start 10/30/18 at 22:00 Levetiracetam (Keppra Liquid) 1,500 mg BID GTB Last administered on 11/08/18 09:47; Admin Dose 1,500 MG; Start 10/30/18 at 22:30 Acetaminophen (Tylenol Liquid) 650 mg Q4H PRN GTB MILD PAIN(1-3)OR ELEVATED TEMP Last administered on 11/07/18 12:24; Admin Dose 650 MG; Start 10/31/18 at 00:00 Nystatin (Nystatin Oint) 1 applic BID TOP Last administered on 11/08/18 09:48; Admin Dose 1 APPLIC; Start 10/31/18 at 21:00 Aspirin (Aspirin) 81 mg DAILY PO Last administered on 11/08/18 09:48; Admin Dose 81 MG; Start 11/01/18 at 09:00 Tramadol HCl (Ultram) 50 mg Q4 PRN PO MODERATE PAIN LEVEL 4-6 Last administered on 11/05/18 03:18; Admin Dose 50 MG; Start 11/01/18 at 21:00 Metoprolol Tartrate (Lopressor) 5 mg Q4 PRN IV ELEVATED HEART RATE; Start 11/01/18 at 21:00 Docusate Sodium (Colace Liquid Cup) 100 mg BID GTB Last administered on 11/08/18 09:47; Admin Dose 100 MG; Start 11/02/18 at 09:00 Collagenase (Santyl) 1 applic DAILY TOP Last administered on 11/08/18 09:47; Admin Dose 1 APPLIC; Start 11/03/18 at 09:00 Midodrine (Proamatine) 5 mg TID@,,17 GTB Last administered on 11/07/18 16:52; Admin Dose 5 MG; Start 11/03/18 at 02:30 Potassium Chloride (Potassium Chloride Pwd/Soln) 20 meq BID GTB Last administered on 11/08/18 09:48; Admin Dose 20 MEQ; Start 11/04/18 at 09:00 Lorazepam (Ativan) 1 mg Q4H PRN IV AGITATION Last administered on 11/05/18 11:36; Admin Dose 1 MG; Start 11/05/18 at 11:30 Morphine Sulfate (morphine) 1 mg Q4H PRN IV SEVERE PAIN LEVEL 7-10 Last administered on 11/05/18 13:07; Admin Dose 1 MG; Start 11/05/18 at 13:30 Colistimethate Sodium (Colistin Inhal) 75 mg BID RESP THERAPY NEB Last a dministered on 11/08/18 08:14; Admin Dose 75 MG; Start 11/07/18 at 12:00 Metoprolol Tartrate (Lopressor) 12.5 mg BID GTB ; Start 11/08/18 at 21:00 Gentamicin Sulfate (Gentamicin Iv Per Pharmacy) GENTAMICIN PER PHARMACY NOTE XX ; Start 11/08/18 at 15:00; Status JH GRIFFITH Nov 08, 2018 14:51
[2018-11-08] MEDS ORDERED: GENTAMICIN IV PER PHARMACY XX SCH (15:00)
[2018-11-08] MEDS: GENTAMICIN 290 MG in SOD CHLORIDE 0.9% 100 ML IVPB SCH (18:32)
[2018-11-09] VITALS (21 sets, daily range): BP systolic 94–127; BP diastolic 56–74; PULSE 74–84; RESP 15–30
[2018-11-09] MEDS: PANTOPRAZOLE (EC) 40 MG TAB PO SCH (06:14)
[2018-11-09] MEDS: PIPER-TAZO 3.375 GM IV (PMX) 100 ML IVPB SCH ×3 (06:14→21:12)
--- NOTE | 2018-11-09 07:36 | CONS ---
Assessment/Plan Assessment/Plan Assessment/Plan (Daily) Ventilator setting; assist control of 14, tidal volume 500, PEEP of 5, 40% FiO2. Assessment and recommendations; 1. Patient with history of chronic encephalopathy and VDR F admitted with bilateral pneumonia with multiple organisms cultured from sputum. Currently on appropriate antimicrobial regimen. 2. Stable seizure disorder. Continue current supportive care. Antimicrobial regimen per ID recommendations. Consultation Date/Type/Reason Admit Date/Time October 30, 2018 at 08:15 Initial Consult Date Type of Consult Pulmonary Patient is a 47-year-old male who has been transferred from retirement because of fever. Patient had been diagnosed a UTI with possibly pyonephritis. Currently on appropriate antimicrobial regimen. Because of advanced encephalopathy, patient remains totally noncommunicative. However, patient did not appear to be in any distress. Past medical history; 1. Advanced encephalopathy 2. VDRF 3. G-tube placement. 4. Seizure disorder. Medications; reviewed. Allergies; none. Social history; not available. Family history; not available. Occupational history; patient is on disability. Review of system; unable to be obtained. General exam; young male, on ventilator via tracheostomy, non communicative and unresponsive. Currently no distress. Requesting Provider: RICHARD GIRARD MD Date/Time of Note DATE: 11/09/18 TIME: 07:34 24 HR Interval Summary Free Text/Dictation Patient's condition is stable. Remains awake but noncommunicative. Has remained hemodynamically stable. General exam; young male, on ventilator via tracheostomy, awake, currently no distress. Exam/Review of Systems Exam Vitals Vital Signs Date Temp Pulse Resp B/P (MAP) Pulse Ox O2 O2 Flow FiO2 Time Delivery Rate 11/09/18 79 24 94 40 05:11 11/09/18 99.3 94/56 (69) 04:00 11/06/18 Trach 15:40 Collar Intake and Output 11/08/18 11/08/18 11/09/18 1515:00 23:00 07:00 IntakeIntake Total 250 ml 100 ml OutputOutput Total 1700 ml BalanceBalance 250 ml -1700 ml 100 ml Exam H EENT exam; supple neck, no JVD. No lymphadenopathy. Midline trachea. No thyromegaly. Tracheostomy in place. Insertion site is clean. Patient is edentulous. Chest exam; diminished but clear breath sounds. S1-S2 audible, no murmurs. Regular rhythm. Abdomen exam; soft, nondistended. No organomegaly. G-tube in place. Bowel sounds audible. Extremity exam; peripheral edema. Patient has a flexion contractures. [employer] exam; patient remains awake but noncommunicative. Results Result Diagram: 11/08/18 0539 11/09/18 0358 Results 24hrs Laboratory Tests Test 11/08/18 10:32 11/09/18 03:58 Vancomycin Level Trough 7.8 L Sodium Level 141 Potassium Level 4.3 Chloride Level 112 H Carbon Dioxide Level 22 Anion Gap 7 Blood Urea Nitrogen 10 Creatinine 0.43 L Est Glomerular Filtrat Rate mL/min > 60 Glucose Level 103 Calcium Level 8.7 Random Gentamicin Level 4.2 Medications Medication Current Medications Albuterol (Proventil 0.083% (Neb)) 2.5 mg Q3H RESP THERAPY PRN NEB WHEEZING AND SOB; Start 10/30/18 at 22:00 Albuterol (Proventil 0.083% (Neb)) 2.5 mg Q6H RESP THERAPY PRN NEB WHEEZING AND SOB; Start 10/30/18 at 22:00 Ascorbic Acid (Vitamin C) 500 mg DAILY GTB Last administered on 11/08/18at 09:48; Admin Dose 500 MG; Start 10/31/18 at 09:00 Metoclopramide HCl (Reglan) 10 mg Q6H PRN GTB NAUSEA AND/OR VOMITING; Start 10/30/18 at 22:00 Multivitamins (Multivitamin) 30 ml DAILY GTB Last administered on 11/08/18at 09:47; Admin Dose 30 ML; Start 10/31/18 at 09:00 Pantoprazole (Protonix Tab) 40 mg DAILY@0600 PO Last administered on 11/09/18 06:14; Admin Dose 40 MG; Start 10/31/18 at 06:00 Ferrous Sulfate (Feosol Liquid Cup) 300 mg BID PO Last administered on 11/08/18 21:06; Admin Dose 300 MG; Start 10/30/18 at 22:00 Levetiracetam (Keppra Liquid) 1,500 mg BID GTB Last administered on 11/08/18 21:06; Admin Dose 1,500 MG; Start 10/30/18 at 22:30 Acetaminophen (Tylenol Liquid) 650 mg Q4H PRN GTB MILD PAIN(1-3)OR ELEVATED TEMP Last administered on 11/07/18 12:24; Admin Dose 650 MG; Start 10/31/18 at 00:00 Nystatin (Nystatin Oint) 1 applic BID TOP Last administered on 11/08/18 21:07; Admin Dose 1 APPLIC; Start 10/31/18 at 21:00 Aspirin (Aspirin) 81 mg DAILY PO Last administered on 11/08/18 09:48; Admin Dose 81 MG; Start 11/01/18 at 09:00 Tramadol HCl (Ultram) 50 mg Q4 PRN PO MODERATE PAIN LEVEL 4-6 Last administered on 11/05/18 03:18; Admin Dose 50 MG; Start 11/01/18 at 21:00 Metoprolol Tartrate (Lopressor) 5 mg Q4 PRN IV ELEVATED HEART RATE; Start 11/01/18 at 21:00 Docusate Sodium (Colace Liquid Cup) 100 mg BID GTB Last administered on 11/08/18 21:06; Admin Dose 100 MG; Start 11/02/18 at 09:00 Collagenase (Santyl) 1 applic DAILY TOP Last administered on 11/08/18 09:47; Admin Dose 1 APPLIC; Start 11/03/18 at 09:00 Midodrine (Proamatine) 5 mg TID@,, GTB Last administered on 11/07/18 16:52; Admin Dose 5 MG; Start 11/03/18 at 02:30 Potassium Chloride (Potassium Chloride Pwd/Soln) 20 meq BID GTB Last administered on 11/08/18 21:06; Admin Dose 20 MEQ; Start 11/04/18 at 09:00 Lorazepam (Ativan) 1 mg Q4H PRN IV AGITATION Last administered on 11/05/18 11:36; Admin Dose 1 MG; Start 11/05/18 at 11:30 Morphine Sulfate (morphine) 1 mg Q4H PRN IV SEVERE PAIN LEVEL 7-10 Last administered on 11/05/18 13:07; Admin Dose 1 MG; Start 11/05/18 at 13:30 Colistimethate Sodium (Colistin Inhal) 75 mg BID RESP THERAPY NEB Last administered on 11/08/18 20:20; Admin Dose 75 MG; Start 11/07/18 at 12:00 Metoprolol Tartrate (Lopressor) 12.5 mg BID GTB ; Start 11/08/18 at 21:00 Gentamicin Sulfate (Gentamicin Iv Per Pharmacy) GENTAMICIN PER PHARMACY NOTE XX ; Start 11/08/18 at 15:00 Piperacillin Sod/ Tazobactam Sod 100 ml @ 200 mls/hr Q8 IVPB Last administered on 11/09/18at 06:14; Admin Dose 200 MLS/HR; Start 11/08/18 at 22:00 Gentamicin Sulfate 290 mg/ Sodium Chloride 107.25 ml @ 107.25 mls/hr Q24H IVPB Last administered on 11/08/18at 18:32; Admin Dose 107.25 MLS/HR; Start 11/08/18 at 16:00 MI JEFFERS Nov 09, 2018 07:36
[2018-11-09] MEDS: COLISTIMETHATE (25 MG/ML INHAL SYG) NEB SCH ×2 (08:04→19:51)
--- NOTE | 2018-11-09 08:46 | CONS ---
Consult Date/Type/Reason Admit Date/Time October 30, 2018 at 08:15 Initial Consult Date Type of Consultation: Pulm Requesting Provider: RICHARD GIRARD MD Date/Time of Note DATE: 11/09/18 TIME: 08:43 Subjective NO acute events - pt comfortable - BP in good range - con't resp Rx. ROS: No fever, no chills, no nausea, no vomiting, no diarrhea/constipation - per nurse Objective Vitals Vital Signs Date Temp Pulse Resp B/P (MAP) Pulse Ox O2 O2 Flow FiO2 Time Delivery Rate 11/09/18 99.2 80 18 97/64 (75) 96 08:04 11/09/18 40 07:30 11/06/18 Trach 15:40 Collar Intake and Output 11/08/18 11/08/18 11/09/18 1515:00 23:00 07:00 IntakeIntake Total 250 ml 100 ml OutputOutput Total 1700 ml BalanceBalance 250 ml -1700 ml 100 ml Exam General: WN/WD/NAD, AOx 0 HEENT: Unicetric/atraumatic/EOMI (does not follow commands) NECK: trach Lymph: no lymphadenopathy HEART: regular with no S3, II/ systolic murmur at apex LUNGS: Coarse sounds ABD: soft, NT, ND, +BS : Intact Neuro: non focal SKIN: chronic changes EXT: trace edema Results/Medications Result Diagram: 11/08/18 0539 11/09/18 0358 Results 24 hrs Laboratory Tests Test 11/08/18 10:32 11/09/18 03:58 11/09/18 07:37 Vancomycin Level Trough 7.8 L Sodium Level 141 Potassium Level 4.3 Chloride Level 112 H Carbon Dioxide Level 22 Anion Gap 7 Blood Urea Nitrogen 10 Creatinine 0.43 L Est Glomerular Filtrat > 60 Rate mL/min Glucose Level 103 Calcium Level 8.7 Random Gentamicin Level 4.2 Lab Scanned Report BLOOD TRANSFUSION Home Meds Reported Medications Ascorbic Acid* (Vitamin C*) 500 Mg Capsule.sa, 500 MG GTB DAILY, CAP 10/30/18 Cran/Vitc/Mannose/Inulin/Brom (Uti-Stat Liquid) 3,875 Mg/30 Ml Liquid, 3875 MG GTB BID 10/30/18 Acetaminophen* (Acetaminophen*) 650 Mg Tablet, 650 MG GTB TRACH CHANGE PRN for PAIN, #30 TAB 10/30/18 Acetaminophen* (Acetaminophen*) 325 Mg Tablet, 650 MG GTB BID PRN for PAIN MANAGEMENT, #30 TAB 10/30/18 Metoclopramide Hcl* (Metoclopramide Hcl*) 10 Mg Tablet, 10 MG GTB Q6H PRN for NAUSEA AND OR VOMITING, TAB 10/30/18 Potassium Chloride* (Potassium Chloride*) 20 Meq/15 Ml Liquid, 20 MEQ GTB DAILY, ML DILUTE WITH 120 CCS OF WATER 10/30/18 Multivitamin* (Daily Value*) 1 Each Tablet, 1 TAB GTB DAILY, TAB 10/30/18 Levetiracetam* (Keppra* (Ped)) 100 Mg/Ml Liq, 1500 MG GTB BID for 30 Days, BOTTLE 10/30/18 Ferrous Sulfate (Ferrous Sulfate) 220 Mg/5 Ml Solution, 300 MG GTB BID 10/30/18 Dexlansoprazole (Dexilant) 60 Mg Cap., 60 MG GTB DAILY, #30 CAP 10/30/18 Cranberry Extract (Cranberry) 425 Mg Capsule, 425 MG GTB BID, CAP 10/30/18 Docusate Sodium* (Colace*) 100 Mg Capsule, 100 MG GTB QHS, #60 CAP 10/30/18 Chlorhexidine Gluconate (Peridex) 473 Ml Mouthwash, 15 ML MM Q12, BOTTLE 10/30/18 Albuterol Sulfate* (Albuterol Sulfate* Neb) 0.083%-3 Ml Neb, 2.5 MG NEB Q6 PRN for WHEEZING AND SOB, #30 VIAL 10/30/18 Albuterol Sulfate* (Albuterol Sulfate* Neb) 0.083%-3 Ml Neb, 2.5 MG NEB Q3H PRN for WHEEZING AND SOB, #30 VIAL 10/30/18 Medications Current Medications Albuterol (Proventil 0.083% (Neb)) 2.5 mg Q3H RESP THERAPY PRN NEB WHEEZING AND SOB; Start 10/30/18 at 22:00 Albuterol (Proventil 0.083% (Neb)) 2.5 mg Q6H RESP THERAPY PRN NEB WHEEZING AND SOB; Start 10/30/18 at 22:00 Ascorbic Acid (Vitamin C) 500 mg DAILY GTB Last administered on 11/08/18at 09:48; Admin Dose 500 MG; Start 10/31/18 at 09:00 Metoclopramide HCl (Reglan) 10 mg Q6H PRN GTB NAUSEA AND/OR VOMITING; Start 10/30/18 at 22:00 Multivitamins (Multivitamin) 30 ml DAILY GTB Last administered on 11/08/18 09:47; Admin Dose 30 ML; Start 10/31/18 at 09:00 Pantoprazole (Protonix Tab) 40 mg DAILY@0600 PO Last administered on 11/09/18 06:14; Admin Dose 40 MG; Start 10/31/18 at 06:00 Ferrous Sulfate (Feosol Liquid Cup) 300 mg BID PO Last administered on 11/08/18 21:06; Admin Dose 300 MG; Start 10/30/18 at 22:00 Levetiracetam (Keppra Liquid) 1,500 mg BID GTB Last administered on 11/08/18 21:06; Admin Dose 1,500 MG; Start 10/30/18 at 22:30 Acetaminophen (Tylenol Liquid) 650 mg Q4H PRN GTB MILD PAIN(1-3)OR ELEVATED TEMP Last administered on 11/07/18 12:24; Admin Dose 650 MG; Start 10/31/18 at 00:00 Nystatin (Nystatin Oint) 1 applic BID TOP Last administered on 11/08/18 21:07; Admin Dose 1 APPLIC; Start 10/31/18 at 21:00 Aspirin (Aspirin) 81 mg DAILY PO Last administered on 11/08/18 09:48; Admin Dose 81 MG; Start 11/01/18 at 09:00 Tramadol HCl (Ultram) 50 mg Q4 PRN PO MODERATE PAIN LEVEL 4-6 Last administered on 11/05/18 03:18; Admin Dose 50 MG; Start 11/01/18 at 21:00 Metoprolol Tartrate (Lopressor) 5 mg Q4 PRN IV ELEVATED HEART RATE; Start 11/01/18 at 21:00 Docusate Sodium (Colace Liquid Cup) 100 mg BID GTB Last administered on 11/08/18 21:06; Admin Dose 100 MG; Start 11/02/18 at 09:00 Collagenase (Santyl) 1 applic DAILY TOP Last administered on 11/08/18 09:47; Admin Dose 1 APPLIC; Start 11/03/18 at 09:00 Midodrine (Proamatine) 5 mg TID@09,13,17 GTB Last administered on 11/07/18 16:52; Admin Dose 5 MG; Start 11/03/18 at 02:30 Potassium Chloride (Potassium Chloride Pwd/Soln) 20 meq BID GTB Last administered on 11/08/18 21:06; Admin Dose 20 MEQ; Start 11/04/18 at 09:00 Lorazepam (Ativan) 1 mg Q4H PRN IV AGITATION Last administered on 11/05/18 11:36; Admin Dose 1 MG; Start 11/05/18 at 11:30 Morphine Sulfate (morphine) 1 mg Q4H PRN IV SEVERE PAIN LEVEL 7-10 Last administered on 11/05/18 13:07; Admin Dose 1 MG; Start 11/05/18 at 13:30 Colistimethate Sodium (Colistin Inhal) 75 mg BID RESP THERAPY NEB Last administered on 11/09/18 08:04; Admin Dose 75 MG; Start 11/07/18 at 12:00 Metoprolol Tartrate (Lopressor) 12.5 mg BID GTB ; Start 11/08/18 at 21:00 Gentamicin Sulfate (Gentamicin Iv Per Pharmacy) GENTAMICIN PER PHARMACY NOTE XX ; Start 11/08/18 at 15:00 Piperacillin Sod/ Tazobactam Sod 100 ml @ 200 mls/hr Q8 IVPB Last administered on 11/09/18 06:14; Admin Dose 200 MLS/HR; Start 11/08/18 at 22:00 Gentamicin Sulfate 290 mg/ Sodium Chloride 107.25 ml @ 107.25 mls/hr Q24H IVPB Last administered on 11/08/18 18:32; Admin Dose 107.25 MLS/HR; Start 11/08/18 at 16:00 Assessment/Plan Hospital Course (Demo Recall) 1. Non-ST elevation myocardial infarction with up trending cardiac enzymes likely demand infarct in the setting of significant tachycardia and fevers, sepsis- downtrending - no active CP - no intervention planned - VS stable. BP stabl. NO CP. 2. Abnormal electrocardiogram with nonspecific ST-T abnormalities - treated. BP in good range. TREATED. 3. Tachycardia, ongoing, likely due to the patient's underlying sepsis. Improved with RX. 4. Sepsis with the Gram-positive cocci group in clusters growing in blood and Gram-negative rods growing in urine. Con't anti-Bx. 5. Urinary tract infection- on meds - no fevers now. 6. Chronic respiratory failure, status post tracheostomy- on vent. 7. s/p G-tube.- feedsat goal. 8. Chronic anoxic encephalopathy. Unchanged. 9. Leukocytosis significantly improved - no fevers now. 10. Anemia. 11. Hypernatremia. FABIOLA WATERS MD Nov 09, 2018 08:46
[2018-11-09] MEDS: NYSTATIN 15 GM OINT TOP SCH ×2 (09:00→21:12)
[2018-11-09] MEDS: DOCUSATE SODIUM 10 MG/ML (10ML CUP) GTB SCH ×2 (09:00→21:00)
[2018-11-09] MEDS: METOPROLOL 25 MG TAB GTB SCH ×2 (09:00→21:12)
[2018-11-09] MEDS: MULTIVITAMINS 30 ML CUP GTB SCH (09:57)
[2018-11-09] MEDS: FERROUS SULFATE 60 MG/ML 5ML CUP PO SCH ×2 (09:57→21:12)
[2018-11-09] MEDS: LEVETIRACETAM (100 MG/ML) 5ML CUP GTB SCH ×2 (09:57→21:12)
[2018-11-09] MEDS: POTASSIUM CHLORIDE 20 MEQ POWDER FOR ORAL SOLN GTB SCH ×2 (09:58→21:12)
[2018-11-09] MEDS: ASCORBIC ACID 500 MG TAB GTB SCH (09:59)
[2018-11-09] MEDS: ASPIRIN 81 MG TAB PO SCH (09:59)
[2018-11-09] MEDS: MIDODRINE 5 MG TAB GTB SCH ×3 (09:59→17:00)
[2018-11-09] MEDS: COLLAGENASE 5 GM (UD JAR) TOP SCH (10:01)
[2018-11-09] MEDS ORDERED: VANCOMYCIN HCL 1.5 GM in SOD CHLORIDE 0.9% 250 ML IVPB SCH (12:00)
[2018-11-09] MEDS: BALSAM PERU/CASTOR OIL 60 GM TUBE TOP SCH (14:58)
--- NOTE | 2018-11-09 15:26 | CONS ---
Assessment/Plan Assessment/Plan Hospital Course (Demo Recall) Noncommunicative in no distress. afebrile. Sputum culture grew Acinetobacter and gram-negative rods, repeat blood cultures negative Antimicrobials: Gentamicin, Zosyn, Colistin INH Microbiology: Blood culture on admission grew coag negative staph species, urine culture grew Proteus mirabilis. Sputum culture grew Acinetobacter, Pseudomonas and Klebsiella ESBL susceptible to gentamicin CT of the chest on admission revealed right lower lobe dense wench shaped consolidation with moderate bilateral peribronchial nodular opacities consistent with multifocal pneumonia. Hydronephrosis of the right kidney of mild severity secondary to partial visualization of a 10 mm stone in the right proximal ureter with wall thickening and inflammation of the right renal pelvic wall and proximal ureteral wall. Please see full report in the chart Physical examination: Chronically ill-appearing vegetative middle-aged man who is in no distress. Head atraumatic normocephalic neck is supple tracheostomy present chest rise symmetrical breath sounds diminished bases. Heart: S1-S2. Abdomen soft bowel sounds hypoactive. Extremities wasted contractured Assessment: 1. Severe sepsis, present on admission 2. Coag negative staph bacteremia, possibly line sepsis as patient had PICC line on admission that was discontinued 3. Multifocal healthcare associated pneumonia 4. Urinary tract infection with obstructive uropathy 5. Vegetative 6. Elevated lipase ?pancreatitis 7. DNR Plan: Clinically unchanged, continue antibiotics, monitor lipase, f/u GI rec-s Consultation Date/Type/Reason Admit Date/Time October 30, 2018 at 08:15 Initial Consult Date Type of Consult id Requesting Provider: RICHARD GIRARD MD Date/Time of Note DATE: 11/09/18 TIME: 15:25 Exam/Review of Systems Exam Vitals Vital Signs Date Temp Pulse Resp B/P (MAP) Pulse Ox O2 O2 Flow FiO2 Time Delivery Rate 11/09/18 76 12:31 11/09/18 99.0 20 104/66 97 12:01 (79) 11/09/18 40 07:30 11/06/18 Trach 15:40 Collar Intake and Output 11/08/18 11/08/18 11/09/18 1515:00 23:00 07:00 IntakeIntake Total 250 ml 100 ml OutputOutput Total 1700 ml BalanceBalance 250 ml -1700 ml 100 ml Results Result Diagram: 11/08/18 0539 11/09/18 0358 Results 24hrs Laboratory Tests Test 11/09/18 03:58 11/09/18 07:37 Sodium Level 141 Potassium Level 4.3 Chloride Level 112 H Carbon Dioxide Level 22 Anion Gap 7 Blood Urea Nitrogen 10 Creatinine 0.43 L Est Glomerular Filtrat Rate mL/min > 60 Glucose Level 103 Calcium Level 8.7 Random Gentamicin Level 4.2 Lab Scanned Report BLOOD TRANSFUSION Medications Medication Current Medications Albuterol (Proventil 0.083% (Neb)) 2.5 mg Q3H RESP THERAPY PRN NEB WHEEZING AND SOB; Start 10/30/18 at 22:00 Albuterol (Proventil 0.083% (Neb)) 2.5 mg Q6H RESP THERAPY PRN NEB WHEEZING AND SOB; Start 10/30/18 at 22:00 Ascorbic Acid (Vitamin C) 500 mg DAILY GTB Last administered on 11/09/18 09:59; Admin Dose 500 MG; Start 10/31/18 at 09:00 Metoclopramide HCl (Reglan) 10 mg Q6H PRN GTB NAUSEA AND/OR VOMITING; Start 10/30/18 at 22:00 Multivitamins (Multivitamin) 30 ml DAILY GTB Last administered on 11/09/18 09:57; Admin Dose 30 ML; Start 10/31/18 at 09:00 Pantoprazole (Protonix Tab) 40 mg DAILY@0600 PO Last administered on 11/09/18 06:14; Admin Dose 40 MG; Start 10/31/18 at 06:00 Ferrous Sulfate (Feosol Liquid Cup) 300 mg BID PO Last administered on 11/09/18 09:57; Admin Dose 300 MG; Start 10/30/18 at 22:00 Levetiracetam (Keppra Liquid) 1,500 mg BID GTB Last administered on 11/09/18 09:57; Admin Dose 1,500 MG; Start 10/30/18 at 22:30 Acetaminophen (Tylenol Liquid) 650 mg Q4H PRN GTB MILD PAIN(1-3)OR ELEVATED TEMP Last administered on 11/07/18 12:24; Admin Dose 650 MG; Start 10/31/18 at 00:00 Nystatin (Nystatin Oint) 1 applic BID TOP Last administered on 11/09/18 09:00; Admin Dose 1 APPLIC; Start 10/31/18 at 21:00 Aspirin (Aspirin) 81 mg DAILY PO Last administered on 11/09/18 09:59; Admin Dose 81 MG; Start 11/01/18 at 09:00 Tramadol HCl (Ultram) 50 mg Q4 PRN PO MODERATE PAIN LEVEL 4-6 Last administered on 11/05/18 03:18; Admin Dose 50 MG; Start 11/01/18 at 21:00 Metoprolol Tartrate (Lopressor) 5 mg Q4 PRN IV ELEVATED HEART RATE; Start 11/01/18 at 21:00 Docusate Sodium (Colace Liquid Cup) 100 mg BID GTB Last administered on 11/08/18 21:06; Admin Dose 100 MG; Start 11/02/18 at 09:00 Collagenase (Santyl) 1 applic DAILY TOP Last administered on 11/09/18 10:01; Ad min Dose 1 APPLIC; Start 11/03/18 at 09:00 Midodrine (Proamatine) 5 mg TID@,13,17 GTB Last administered on 11/09/18 14:59; Admin Dose 5 MG; Start 11/03/18 at 02:30 Potassium Chloride (Potassium Chloride Pwd/Soln) 20 meq BID GTB Last administered on 11/09/18 09:58; Admin Dose 20 MEQ; Start 11/04/18 at 09:00 Lorazepam (Ativan) 1 mg Q4H PRN IV AGITATION Last administered on 11/05/18 11:36; Admin Dose 1 MG; Start 11/05/18 at 11:30 Morphine Sulfate (morphine) 1 mg Q4H PRN IV SEVERE PAIN LEVEL 7-10 Last administered on 11/05/18 13:07; Admin Dose 1 MG; Start 11/05/18 at 13:30 Colistimethate Sodium (Colistin Inhal) 75 mg BID RESP THERAPY NEB Last administered on 11/09/18 08:04; Admin Dose 75 MG; Start 11/07/18 at 12:00 Metoprolol Tartrate (Lopressor) 12.5 mg BID GTB ; Start 11/08/18 at 21:00 Gentamicin Sulfate (Gentamicin Iv Per Pharmacy) GENTAMICIN PER PHARMACY NOTE XX ; Start 11/08/18 at 15:00 Piperacillin Sod/ Tazobactam Sod 100 ml @ 200 mls/hr Q8 IVPB Last administered on 11/09/18at 14:58; Admin Dose 200 MLS/HR; Start 11/08/18 at 22:00 Gentamicin Sulfate 290 mg/ Sodium Chloride 107.25 ml @ 107.25 mls/hr Q24H IVPB Last administered on 11/08/18at 18:32; Admin Dose 107.25 MLS/HR; Start 11/08/18 at 16:00 YURY YOON NP Nov 09, 2018 15:26
[2018-11-09] MEDS: GENTAMICIN 290 MG in SOD CHLORIDE 0.9% 100 ML IVPB SCH (17:44)
--- NOTE | 2018-11-09 19:14 | CONS ---
Consult Date/Type/Reason Admit Date/Time October 30, 2018 at 08:15 Initial Consult Date 11/03/18 Type of Consultation: Urology Reason for Consultation Urinary retention and bilateral renal stones Requesting Provider: RICHARD GIRARD MD Date/Time of Note DATE: 11/09/18 TIME: 19:11 Subjective Patient condition is unchanged. Objective Vitals Vital Signs Date Temp Pulse Resp B/P (MAP) Pulse Ox O2 O2 Flow FiO2 Time Delivery Rate 11/09/18 77 17:17 11/09/18 20 97 40 17:05 11/09/18 98.9 127/74 15:42 (91) 11/06/18 Trach 15:40 Collar Intake and Output 11/08/18 11/08/18 11/09/18 1515:00 23:00 07:00 IntakeIntake Total 250 ml 100 ml OutputOutput Total 1700 ml BalanceBalance 250 ml -1700 ml 100 ml Exam The Charles catheter is draining clear urine. Results/Medications Result Diagram: 11/08/18 0539 11/09/18 0358 Results 24 hrs Laboratory Tests Test 11/09/18 03:58 11/09/18 07:37 Sodium Level 141 Potassium Level 4.3 Chloride Level 112 H Carbon Dioxide Level 22 Anion Gap 7 Blood Urea Nitrogen 10 Creatinine 0.43 L Est Glomerular Filtrat Rate mL/min > 60 Glucose Level 103 Calcium Level 8.7 Random Gentamicin Level 4.2 Lab Scanned Report BLOOD TRANSFUSION Home Meds Reported Medications Ascorbic Acid* (Vitamin C*) 500 Mg Capsule.sa, 500 MG GTB DAILY, CAP 10/30/18 Cran/Vitc/Mannose/Inulin/Brom (Uti-Stat Liquid) 3,875 Mg/30 Ml Liquid, 3875 MG GTB BID 10/30/18 Acetaminophen* (Acetaminophen*) 650 Mg Tablet, 650 MG GTB TRACH CHANGE PRN for PAIN, #30 TAB 10/30/18 Acetaminophen* (Acetaminophen*) 325 Mg Tablet, 650 MG GTB BID PRN for PAIN MANAGEMENT, #30 TAB 10/30/18 Metoclopramide Hcl* (Metoclopramide Hcl*) 10 Mg Tablet, 10 MG GTB Q6H PRN for NAUSEA AND OR VOMITING, TAB 10/30/18 Potassium Chloride* (Potassium Chloride*) 20 Meq/15 Ml Liquid, 20 MEQ GTB DAILY, ML DILUTE WITH 120 CCS OF WATER 10/30/18 Multivitamin* (Daily Value*) 1 Each Tablet, 1 TAB GTB DAILY, TAB 10/30/18 Levetiracetam* (Keppra* (Ped)) 100 Mg/Ml Liq, 1500 MG GTB BID for 30 Days, BOTTLE 10/30/18 Ferrous Sulfate (Ferrous Sulfate) 220 Mg/5 Ml Solution, 300 MG GTB BID 10/30/18 Dexlansoprazole (Dexilant) 60 Mg Cap., 60 MG GTB DAILY, #30 CAP 10/30/18 Cranberry Extract (Cranberry) 425 Mg Capsule, 425 MG GTB BID, CAP 10/30/18 Docusate Sodium* (Colace*) 100 Mg Capsule, 100 MG GTB QHS, #60 CAP 10/30/18 Chlorhexidine Gluconate (Peridex) 473 Ml Mouthwash, 15 ML MM Q12, BOTTLE 10/30/18 Albuterol Sulfate* (Albuterol Sulfate* Neb) 0.083%-3 Ml Neb, 2.5 MG NEB Q6 PRN for WHEEZING AND SOB, #30 VIAL 10/30/18 Albuterol Sulfate* (Albuterol Sulfate* Neb) 0.083%-3 Ml Neb, 2.5 MG NEB Q3H PRN for WHEEZING AND SOB, #30 VIAL 10/30/18 Medications Current Medications Albuterol (Proventil 0.083% (Neb)) 2.5 mg Q3H RESP THERAPY PRN NEB WHEEZING AND SOB; Start 10/30/18 at 22:00 Albuterol (Proventil 0.083% (Neb)) 2.5 mg Q6H RESP THERAPY PRN NEB WHEEZING AND SOB; Start 10/30/18 at 22:00 Ascorbic Acid (Vitamin C) 500 mg DAILY GTB Last administered on 11/09/18at 09:59; Admin Dose 500 MG; Start 10/31/18 at 09:00 Metoclopramide HCl (Reglan) 10 mg Q6H PRN GTB NAUSEA AND/OR VOMITING; Start 10/30/18 at 22:00 Multivitamins (Multivitamin) 30 ml DAILY GTB Last administered on 11/09/18at 09:57; Admin Dose 30 ML; Start 10/31/18 at 09:00 Pantoprazole (Protonix Tab) 40 mg DAILY@0600 PO Last administered on 11/09/18 06:14; Admin Dose 40 MG; Start 10/31/18 at 06:00 Ferrous Sulfate (Feosol Liquid Cup) 300 mg BID PO Last administered on 11/09/18 09:57; Admin Dose 300 MG; Start 10/30/18 at 22:00 Levetiracetam (Keppra Liquid) 1,500 mg BID GTB Last administered on 11/09/18 09:57; Admin Dose 1,500 MG; Start 10/30/18 at 22:30 Acetaminophen (Tylenol Liquid) 650 mg Q4H PRN GTB MILD PAIN(1-3)OR ELEVATED TEMP Last administered on 11/07/18 12:24; Admin Dose 650 MG; Start 10/31/18 at 00:00 Nystatin (Nystatin Oint) 1 applic BID TOP Last administered on 11/09/18 09:00; Admin Dose 1 APPLIC; Start 10/31/18 at 21:00 Aspirin (Aspirin) 81 mg DAILY PO Last administered on 11/09/18 09:59; Admin Dose 81 MG; Start 11/01/18 at 09:00 Tramadol HCl (Ultram) 50 mg Q4 PRN PO MODERATE PAIN LEVEL 4-6 Last administered on 11/05/18 03:18; Admin Dose 50 MG; Start 11/01/18 at 21:00 Metoprolol Tartrate (Lopressor) 5 mg Q4 PRN IV ELEVATED HEART RATE; Start 11/01/18 at 21:00 Docusate Sodium (Colace Liquid Cup) 100 mg BID GTB Last administered on 11/08/18 21:06; Admin Dose 100 MG; Start 11/02/18 at 09:00 Collagenase (Santyl) 1 applic DAILY TOP Last administered on 11/09/18 10:01; Admin Dose 1 APPLIC; Start 11/03/18 at 09:00 Midodrine (Proamatine) 5 mg TID@, GTB Last administered on 11/09/18 14:59; Admin Dose 5 MG; Start 11/03/18 at 02:30 Potassium Chloride (Potassium Chloride Pwd/Soln) 20 meq BID GTB Last administered on 11/09/18 09:58; Admin Dose 20 MEQ; Start 11/04/18 at 09:00 Lorazepam (Ativan) 1 mg Q4H PRN IV AGITATION Last administered on 11/05/18at 11:36; Admin Dose 1 MG; Start 11/05/18 at 11:30 Morphine Sulfate (morphine) 1 mg Q4H PRN IV SEVERE PAIN LEVEL 7-10 Last administered on 11/05/18 13:07; Admin Dose 1 MG; Start 11/05/18 at 13:30 Colistimethate Sodium (Colistin Inhal) 75 mg BID RESP THERAPY NEB Last administered on 11/09/18at 08:04; Admin Dose 75 MG; Start 11/07/18 at 12:00 Metoprolol Tartrate (Lopressor) 12.5 mg BID GTB ; Start 11/08/18 at 21:00 Gentamicin Sulfate (Gentamicin Iv Per Pharmacy) GENTAMICIN PER PHARMACY NOTE XX ; Start 11/08/18 at 15:00 Piperacillin Sod/ Tazobactam Sod 100 ml @ 200 mls/hr Q8 IVPB Last administered on 11/09/18at 14:58; Admin Dose 200 MLS/HR; Start 11/08/18 at 22:00 Gentamicin Sulfate 290 mg/ Sodium Chloride 107.25 ml @ 107.25 mls/hr Q24H IVPB Last administered on 11/09/18at 17:44; Admin Dose 107.25 MLS/HR; Start 11/08/18 at 16:00 Assessment/Plan Hospital Course (Demo Recall) This is a 47-year-old male, SNF resident at [facility]. He had attempted suicide in 2009. He has a past medical history of vent dependent Respiratory Failure, anoxic brain injury and encephalopathy, seizure disorder secondary to his anoxic brain injury, dysphagia, status post GT placement . The patient is admitted with c/o changes in his mental status. The patient has flexion contraction of the upper extremities and nursing staff indicated that he did not appear as rigid in his upper extremities. Patient was found to have urinary retention and a Charles catheter was inserted and 1200 mL drained out. Prior to that the patient has been incontinent. Urological consultation was therefore requested. The patient is encephalopathic and not capable of giving any history. All the information were obtained from reviewing his medical record. Renal ultrasound: Both kidneys are normal in echogenicity. There is normal renal cortical thickness without focal thinning or scarring. No solid renal masses are identified. There are multiple nonobstructing right intrarenal calculi measuri ng between 7-8 mm. No hydronephrosis is seen. No stone burden is noted within the left kidney. The right kidney measures 13.4 cm, and the left kidney measures 9.7 cm. Spot images of the pelvis demonstrating normally distended bladder with smooth contours. CT scan of the chest: There is right lower lobe dense wedge-shaped consolidation with moderate bilateral peribronchial nodular opacities consistent with multifocal pneumonia. Study for pulmonary embolus is severely limited due to motion with possible pulmonary embolus in the right lower lobe basilar segment however this may be artifactual from motion and repeat study may be considered. 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 There is hydronephrosis of the right kidney of mild severity secondary to partial visualization of a 10 mm stone in the right proximal ureter with wall thickening and inflammation of the right renal pelvic wall and proximal ureteral wall. Right hilar adenopathy is present which may be reactive in nature and can be reassessed with followup CT chest after 3 months. Atherosclerotic disease. No acute pulmonary process. Most likely this patient has had urinary retention for a long time and was overflowing. As far as the urinary retention we have to keep the Charles catheter in. The patient also does have bilateral kidney stones and a stone in the right upper ureter. Again considering the patient's general condition I would recommend to observe him for the stones. Presently his urine is clear and his renal function is good. Keep the Charles catheter in place. CASTILLO NAVARRETE MD Nov 09, 2018 19:14
--- NOTE | 2018-11-09 19:27 | PN ---
Date/Time of Note Date/Time of Note DATE: 11/09/18 TIME: 19:27 Assessment/Plan VTE Prophylaxis Risk score (from Ns)>0 risk: 5 SCD applied (from [facility] [place] Yes Pharmacological prophylaxis: NA/contraindicated Pharm contraindication: thrombocytopenia Lines/Catheters IV Catheter Type (from [facility] Peripheral IV Urinary Cath still in place: Yes Reason Cath still needed: urinary retention Assessment/Plan Hospital Course Patient continues on Gent, Zosyn and Tobra inhalation, continues on ventilatory support, Lipase tomorrow. Assessment/Plan -Urinary retention. Dr. Regan is following in urology consultation. Continue Charles catheter. -Hypernatremia, continue free water flushes where G-tube. -Sepsis with gram-positive cocci bacteremia MDR Proteus UTI. Continue antibiotics per ID. Dr. Matias is following in infection disease consultation. -Non-ST elevation myocardial infarction, continue aspirin, beta-samantha. Lovenox is held due to thrombocytopenia. Dr. Flor is following in cardiology consultation. -Pancreatitis. Dr. Walton is following in gastroenterology consultation. -Ventilator dependent respiratory failure with tracheostomy. -Anoxic encephalopathy status post cardiac arrest in 2009 -Ventilator dependent respiratory failure -Dysphagia with PEG -Seizure disorder, continue Keppra. -Schizophrenia -Multiple wounds, continue current wound care, offloading. Further recommendations based on clinical course. Plan of care discussed with Dr. Courtney. Result Diagram: 11/08/18 0539 11/09/18 0358 Results 24hrs Laboratory Tests Test 11/09/18 03:58 11/09/18 07:37 Sodium Level 141 Potassium Level 4.3 Chloride Level 112 H Carbon Dioxide Level 22 Anion Gap 7 Blood Urea Nitrogen 10 Creatinine 0.43 L Est Glomerular Filtrat Rate mL/min > 60 Glucose Level 103 Calcium Level 8.7 Random Gentamicin Level 4.2 Lab Scanned Report BLOOD TRANSFUSION Exam/Review of Systems Exam Vitals Vital Signs Date Temp Pulse Resp B/P (MAP) Pulse Ox O2 O2 Flow FiO2 Time Delivery Rate 11/09/18 77 17:17 11/09/18 20 97 40 17:05 11/09/18 98.9 127/74 15:42 (91) 11/06/18 Trach 15:40 Collar Intake and Output 11/08/18 11/08/18 11/09/18 1515:00 23:00 07:00 IntakeIntake Total 250 ml 100 ml OutputOutput Total 1700 ml BalanceBalance 250 ml -1700 ml 100 ml Exam Constitutional: frail Neck: supple, other (Tracheostomy) Respiratory: diminished breath sounds Cardiovascular: regular rate and rhythm, other Gastrointestinal: soft, tender Musculoskeletal: other Extremities: other (Contracted extremities) Neurological: other (Noncommunicative) Skin: other (Multiple wounds) Results Results 24hrs Laboratory Tests Test 11/09/18 03:58 11/09/18 07:37 Sodium Level 141 Potassium Level 4.3 Chloride Level 112 H Carbon Dioxide Level 22 Anion Gap 7 Blood Urea Nitrogen 10 Creatinine 0.43 L Est Glomerular Filtrat Rate mL/min > 60 Glucose Level 103 Calcium Level 8.7 Random Gentamicin Level 4.2 Lab Scanned Report BLOOD TRANSFUSION Medications Medication Current Medications Albuterol (Proventil 0.083% (Neb)) 2.5 mg Q3H RESP THERAPY PRN NEB WHEEZING AND SOB; Start 10/30/18 at 22:00 Albuterol (Proventil 0.083% (Neb)) 2.5 mg Q6H RESP THERAPY PRN NEB WHEEZING AND SOB; Start 10/30/18 at 22:00 Ascorbic Acid (Vitamin C) 500 mg DAILY GTB Last administered on 11/09/18 09:59; Admin Dose 500 MG; Start 10/31/18 at 09:00 Metoclopramide HCl (Reglan) 10 mg Q6H PRN GTB NAUSEA AND/OR VOMITING; Start 10/30/18 at 22:00 Multivitamins (Multivitamin) 30 ml DAILY GTB Last administered on 11/09/18 09:57; Admin Dose 30 ML; Start 10/31/18 at 09:00 Pantoprazole (Protonix Tab) 40 mg DAILY@0600 PO Last administered on 11/09/18 06:14; Admin Dose 40 MG; Start 10/31/18 at 06:00 Ferrous Sulfate (Feosol Liquid Cup) 300 mg BID PO Last administered on 11/09/18 09:57; Admin Dose 300 MG; Start 10/30/18 at 22:00 Levetiracetam (Keppra Liquid) 1,500 mg BID GTB Last administered on 11/09/18 09:57; Admin Dose 1,500 MG; Start 10/30/18 at 22:30 Acetaminophen (Tylenol Liquid) 650 mg Q4H PRN GTB MILD PAIN(1-3)OR ELEVATED TEMP Last administered on 11/07/18 12:24; Admin Dose 650 MG; Start 10/31/18 at 00:00 Nystatin (Nystatin Oint) 1 applic BID TOP Last administered on 11/09/18 09:00; Admin Dose 1 APPLIC; Start 10/31/18 at 21:00 Aspirin (Aspirin) 81 mg DAILY PO Last administered on 11/09/18 09:59; Admin Dose 81 MG; Start 11/01/18 at 09:00 Tramadol HCl (Ultram) 50 mg Q4 PRN PO MODERATE PAIN LEVEL 4-6 Last administered on 11/05/18 03:18; Admin Dose 50 MG; Start 11/01/18 at 21:00 Metoprolol Tartrate (Lopressor) 5 mg Q4 PRN IV ELEVATED HEART RATE; Start 11/01/18 at 21:00 Docusate Sodium (Colace Liquid Cup) 100 mg BID GTB Last administered on 11/08/18 21:06; Admin Dose 100 MG; Start 11/02/18 at 09:00 Collagenase (Santyl) 1 applic DAILY TOP Last administered on 11/09/18 10:01; Admin Dose 1 APPLIC; Start 11/03/18 at 09:00 Midodrine (Proamatine) 5 mg TID@,13,17 GTB Last administered on 11/09/18 14:59; Admin Dose 5 MG; Start 11/03/18 at 02:30 Potassium Chloride (Potassium Chloride Pwd/Soln) 20 meq BID GTB Last administered on 11/09/18 09:58; Admin Dose 20 MEQ; Start 11/04/18 at 09:00 Lorazepam (Ativan) 1 mg Q4H PRN IV AGITATION Last administered on 11/05/18 11:36; Admin Dose 1 MG; Start 11/05/18 at 11:30 Morphine Sulfate (morphine) 1 mg Q4H PRN IV SEVERE PAIN LEVEL 7-10 Last administered on 11/05/18 13:07; Admin Dose 1 MG; Start 11/05/18 at 13:30 Colistimethate Sodium (Colistin Inhal) 75 mg BID RESP THERAPY NEB Last a dministered on 6/4/19at 08:04; Admin Dose 75 MG; Start 11/07/18 at 12:00 Metoprolol Tartrate (Lopressor) 12.5 mg BID GTB ; Start 11/08/18 at 21:00 Gentamicin Sulfate (Gentamicin Iv Per Pharmacy) GENTAMICIN PER PHARMACY NOTE XX ; Start 11/08/18 at 15:00 Piperacillin Sod/ Tazobactam Sod 100 ml @ 200 mls/hr Q8 IVPB Last administered on 11/09/18at 14:58; Admin Dose 200 MLS/HR; Start 11/08/18 at 22:00 Gentamicin Sulfate 290 mg/ Sodium Chloride 107.25 ml @ 107.25 mls/hr Q24H IVPB Last administered on 11/09/18at 17:44; Admin Dose 107.25 MLS/HR; Start 11/08/18 at 16:00 JH WISDOM Nov 09, 2018 19:27
[2018-11-10] VITALS (19 sets, daily range): BP systolic 90–111; BP diastolic 52–73; PULSE 71–86; RESP 14–30
[2018-11-10] MEDS: ACETAMINOPHEN 650MG/20.3ML CUP GTB PRN (01:30)
[2018-11-10] MEDS: PANTOPRAZOLE (EC) 40 MG TAB PO SCH (05:17)
[2018-11-10] MEDS: PIPER-TAZO 3.375 GM IV (PMX) 100 ML IVPB SCH ×3 (05:18→21:53)
[2018-11-10] MEDS: METOPROLOL 25 MG TAB GTB SCH ×2 (09:00→21:56)
[2018-11-10] MEDS: DOCUSATE SODIUM 10 MG/ML (10ML CUP) GTB SCH ×2 (09:00→21:54)
[2018-11-10] MEDS: LEVETIRACETAM (100 MG/ML) 5ML CUP GTB SCH ×2 (09:08→21:53)
[2018-11-10] MEDS: FERROUS SULFATE 60 MG/ML 5ML CUP PO SCH ×2 (09:08→21:54)
[2018-11-10] MEDS: MIDODRINE 5 MG TAB GTB SCH ×3 (09:12→16:18)
[2018-11-10] MEDS: ASCORBIC ACID 500 MG TAB GTB SCH (09:12)
[2018-11-10] MEDS: MULTIVITAMINS 30 ML CUP GTB SCH (09:13)
[2018-11-10] MEDS: POTASSIUM CHLORIDE 20 MEQ POWDER FOR ORAL SOLN GTB SCH ×2 (09:13→21:55)
[2018-11-10] MEDS: COLLAGENASE 5 GM (UD JAR) TOP SCH (09:13)
[2018-11-10] MEDS: ASPIRIN 81 MG TAB PO SCH (09:13)
[2018-11-10] MEDS: NYSTATIN 15 GM OINT TOP SCH ×2 (09:14→21:54)
[2018-11-10] MEDS: BALSAM PERU/CASTOR OIL 60 GM TUBE TOP SCH (09:15)
[2018-11-10] MEDS: COLISTIMETHATE (25 MG/ML INHAL SYG) NEB SCH ×2 (09:34→19:35)
--- NOTE | 2018-11-10 10:24 | CONS ---
Assessment/Plan Assessment/Plan Assessment/Plan (Daily) Ventilator setting; AC of 14, tidal volume 500, PEEP of 5, 40% FiO2. Assessment and recommendations; 1. Patient with history of chronic encephalopathy and VDR F admitted for severe bilateral pneumonia with significant clinical and radiological improvement. 2. Stable seizure disorder. 3. Mild anemia. Continue current supportive care. Patient responding well to current treatment regimen. Consultation Date/Type/Reason Admit Date/Time October 30, 2018 at 08:15 Initial Consult Date Type of Consult Pulmonary Patient is a 47-year-old male who has been transferred from long term because of fever. Patient had been diagnosed a UTI with possibly pyonephritis. Currently on appropriate antimicrobial regimen. Because of advanced encephalopathy, patient remains totally noncommunicative. However, patient did not appear to be in any distress. Past medical history; 1. Advanced encephalopathy 2. VDRF 3. G-tube placement. 4. Seizure disorder. Medications; reviewed. Allergies; none. Social history; not available. Family history; not available. Occupational history; patient is on disability. Review of system; unable to be obtained. General exam; young male, on ventilator via tracheostomy, non communicative and unresponsive. Currently no distress. Requesting Provider: RICHARD GIRARD MD Date/Time of Note DATE: 11/10/18 TIME: 10:23 24 HR Interval Summary Free Text/Dictation Patient's condition is stable overall. Has remained hemodynamically stable. No untoward events reported. General exam; young male, on ventilator via tracheostomy, noncommunicative. Currently in no distress. Exam/Review of Systems Exam Vitals Vital Signs Date Temp Pulse Resp B/P (MAP) Pulse Ox O2 O2 Flow FiO2 Time Delivery Rate 11/10/18 79 22 98 40 09:39 11/10/18 99.0 109/68 03:56 (82) 11/06/18 Trach 15:40 Collar Intake and Output 11/09/18 11/09/18 11/10/18 1515:00 23:00 07:00 IntakeIntake Total 1467.25 ml 307.25 ml OutputOutput Total 1200 ml 1700 ml BalanceBalance 267.25 ml -1700 ml 307.25 ml Exam H EENT exam; supple neck, no JVD. No lymphadenopathy. Midline trachea. No thyromegaly. Patient is edentulous. Tracheostomy in place. Chest exam; diminished but clear breath sounds. S1-S2 audible, no murmurs. Regular rhythm. Abdomen exam; soft. No organomegaly. G-tube in place. Bowel sounds audible. Extremity exam; no peripheral edema. Patient has a flexion contractures. DIRECTOR OF GUIDANCE exam; patient remains noncommunicative. Results Result Diagram: 11/10/18 0606 11/10/18 0606 Results 24hrs Laboratory Tests Test 11/10/18 06:06 White Blood Count 8.9 # Red Blood Count 3.67 L Hemoglobin 8.8 L Hematocrit 29.4 L Mean Corpuscular Volume 80.1 L Mean Corpuscular Hemoglobin 24.0 L Mean Corpuscular Hemoglobin Concent 29.9 L Red Cell Distribution Width 19.8 H Platelet Count 367 # Mean Platelet Volume 11.4 H Immature Granulocytes % 2.100 H Neutrophils % 70.5 Lymphocytes % 21.6 Monocytes % 4.5 Eosinophils % 0.8 Basophils % 0.5 Nucleated Red Blood Cells % 0.0 Immature Granulocytes # 0.190 H Neutrophils # 6.3 Lymphocytes # 1.9 Monocytes # 0.4 Eosinophils # 0.1 Basophils # 0.0 Nucleated Red Blood Cells # 0.0 Sodium Level 144 Potassium Level 4.4 Chloride Level 112 H Carbon Dioxide Level 22 Anion Gap 10 Blood Urea Nitrogen 10 Creatinine 0.48 L Est Glomerular Filtrat Rate mL/min > 60 Glucose Level 97 Calcium Level 9.3 Lipase 719 H Medications Medication Current Medications Albuterol (Proventil 0.083% (Neb)) 2.5 mg Q3H RESP THERAPY PRN NEB WHEEZING AND SOB; Start 10/30/18 at 22:00 Albuterol (Proventil 0.083% (Neb)) 2.5 mg Q6H RESP THERAPY PRN NEB WHEEZING AND SOB; Start 10/30/18 at 22:00 Ascorbic Acid (Vitamin C) 500 mg DAILY GTB Last administered on 11/10/18at 09:12; Admin Dose 500 MG; Start 10/31/18 at 09:00 Metoclopramide HCl (Reglan) 10 mg Q6H PRN GTB NAUSEA AND/OR VOMITING Last administered on 11/10/18at 03:49; Admin Dose 10 MG; Start 10/30/18 at 22:00 Multivitamins (Multivitamin) 30 ml DAILY GTB Last administered on 6/5/19at 09:13; Admin Dose 30 ML; Start 10/31/18 at 09:00 Pantoprazole (Protonix Tab) 40 mg DAILY@0600 PO Last administered on 11/10/18 05:17; Admin Dose 40 MG; Start 10/31/18 at 06:00 Ferrous Sulfate (Feosol Liquid Cup) 300 mg BID PO Last administered on 11/10/18 09:08; Admin Dose 300 MG; Start 10/30/18 at 22:00 Levetiracetam (Keppra Liquid) 1,500 mg BID GTB Last administered on 11/10/18 09:08; Admin Dose 1,500 MG; Start 10/30/18 at 22:30 Acetaminophen (Tylenol Liquid) 650 mg Q4H PRN GTB MILD PAIN(1-3)OR ELEVATED TEMP Last administered on 11/10/18 01:30; Admin Dose 650 MG; Start 10/31/18 at 00:00 Nystatin (Nystatin Oint) 1 applic BID TOP Last administered on 11/10/18 09:14; Admin Dose 1 APPLIC; Start 10/31/18 at 21:00 Aspirin (Aspirin) 81 mg DAILY PO Last administered on 11/10/18 09:13; Admin Dose 81 MG; Start 11/01/18 at 09:00 Tramadol HCl (Ultram) 50 mg Q4 PRN PO MODERATE PAIN LEVEL 4-6 Last administered on 11/05/18 03:18; Admin Dose 50 MG; Start 11/01/18 at 21:00 Metoprolol Tartrate (Lopressor) 5 mg Q4 PRN IV ELEVATED HEART RATE; Start 11/01/18 at 21:00 Docusate Sodium (Colace Liquid Cup) 100 mg BID GTB Last administered on 11/08/18 21:06; Admin Dose 100 MG; Start 11/02/18 at 09:00 Collagenase (Santyl) 1 applic DAILY TOP Last administered on 11/10/18 09:13; Admin Dose 1 APPLIC; Start 11/03/18 at 09:00 Midodrine (Proamatine) 5 mg TID@,,17 GTB Last administered on 11/10/18 09:12; Admin Dose 5 MG; Start 11/03/18 at 02:30 Potassium Chloride (Potassium Chloride Pwd/Soln) 20 meq BID GTB Last adm inistered on 11/10/18 09:13; Admin Dose 20 MEQ; Start 11/04/18 at 09:00 Lorazepam (Ativan) 1 mg Q4H PRN IV AGITATION Last administered on 11/05/18 11:36; Admin Dose 1 MG; Start 11/05/18 at 11:30 Morphine Sulfate (morphine) 1 mg Q4H PRN IV SEVERE PAIN LEVEL 7-10 Last administered on 11/05/18 13:07; Admin Dose 1 MG; Start 11/05/18 at 13:30 Colistimethate Sodium (Colistin Inhal) 75 mg BID RESP THERAPY NEB Last administered on 11/10/18 09:34; Admin Dose 75 MG; Start 11/07/18 at 12:00 Metoprolol Tartrate (Lopressor) 12.5 mg BID GTB Last administered on 11/09/18 21:12; Admin Dose 12.5 MG; Start 11/08/18 at 21:00 Gentamicin Sulfate (Gentamicin Iv Per Pharmacy) GENTAMICIN PER PHARMACY NOTE XX ; Start 11/08/18 at 15:00 Piperacillin Sod/ Tazobactam Sod 100 ml @ 200 mls/hr Q8 IVPB Last administered on 11/10/18 05:18; Admin Dose 200 MLS/HR; Start 11/08/18 at 22:00 Gentamicin Sulfate 290 mg/ Sodium Chloride 107.25 ml @ 107.25 mls/hr Q24H IVPB Last administered on 11/09/18 17:44; Admin Dose 107.25 MLS/HR; Start 11/08/18 at 16:00 MI JEFFERS 5, 2019 10:24
--- NOTE | 2018-11-10 13:15 | CONS ---
Assessment/Plan Assessment/Plan Hospital Course (Demo Recall) IMPRESSION: 1. Non-ST elevation myocardial infarction with up trending cardiac enzymes likely demand infarct in the setting of significant tachycardia and fevers, sepsis.-downtrending significantly 2. Abnormal electrocardiogram with nonspecific ST-T abnormalities. 3. Tachycardia, likely due to the patient's underlying sepsis-improved overall 4. Sepsis with the Gram-positive cocci group in clusters growing in blood and Gram-negative rods growing in urine. 5. Urinary tract infection. 6. Chronic respiratory failure, status post tracheostomy. 7. s/p G-tube. 8. Chronic anoxic encephalopathy. 9. Leukocytosis significantly improved. 10. Anemia-worsening 11. Hypernatremia-improved 12. Elevated Lipas-? pancreatitis Recc: -Tele -Contineu asa -Contineu low dose BB as tolerated only at very low dose -trend enzymes -lovenox held due to worsening anemia/hematuria Consultation Date/Type/Reason Admit Date/Time October 30, 2018 at 08:15 Initial Consult Date 10/31/18 Type of Consult Cardiology Reason for Consultation Nstemi Requesting Provider: RICHARD GIRARD MD Date/Time of Note DATE: 11/10/18 TIME: 13:12 Exam/Review of Systems Vital Signs Vitals Vital Signs Date Temp Pulse Resp B/P (MAP) Pulse Ox O2 O2 Flow FiO2 Time Delivery Rate 11/10/18 79 22 98 40 09:39 11/10/18 99.0 109/68 03:56 (82) 11/06/18 Trach 15:40 Collar Intake and Output 11/09/18 11/09/18 11/10/18 1515:00 23:00 07:00 IntakeIntake Total 1467.25 ml 307.25 ml OutputOutput Total 1200 ml 1700 ml BalanceBalance 267.25 ml -1700 ml 307.25 ml Exam Exam Review of Systems: CONSTITUTIONAL: No fevers, chills. PULMONARY: No sob CARDIOVASCULAR: No chest pain/palpitations GASTROINTESTINAL: No nausea/vomiting. GENITOURINARY: No hematuria/dysuria. MUSCULOSKELETAL: No myagias/arthalgias. PSYCHIATRIC: The patient denies depression. NEUROLOGIC: No weakness Constitutional: other (encephalaopthjic) Psych: no complaints Head: normocephalic Neck: other (tracjhed) Respiratory: diminished breath sounds Cardiovascular: regular rate and rhythm Gastrointestinal: soft, non-tender Musculoskeletal: muscle weakness (generalized) Extremities: other (No focal defoicits) Neurological: other Labs Result Diagram: 11/10/1860511/10/18605 Results 24hrs Laboratory Tests Test 11/10/18 06:06 White Blood Count 8.9 # Red Blood Count 3.67 L Hemoglobin 8.8 L Hematocrit 29.4 L Mean Corpuscular Volume 80.1 L Mean Corpuscular Hemoglobin 24.0 L Mean Corpuscular Hemoglobin Concent 29.9 L Red Cell Distribution Width 19.8 H Platelet Count 367 # Mean Platelet Volume 11.4 H Immature Granulocytes % 2.100 H Neutrophils % 70.5 Lymphocytes % 21.6 Monocytes % 4.5 Eosinophils % 0.8 Basophils % 0.5 Nucleated Red Blood Cells % 0.0 Immature Granulocytes # 0.190 H Neutrophils # 6.3 Lymphocytes # 1.9 Monocytes # 0.4 Eosinophils # 0.1 Basophils # 0.0 Nucleated Red Blood Cells # 0.0 Sodium Level 144 Potassium Level 4.4 Chloride Level 112 H Carbon Dioxide Level 22 Anion Gap 10 Blood Urea Nitrogen 10 Creatinine 0.48 L Est Glomerular Filtrat Rate mL/min > 60 Glucose Level 97 Calcium Level 9.3 Lipase 719 H Medications Medications Current Medications Albuterol (Proventil 0.083% (Neb)) 2.5 mg Q3H RESP THERAPY PRN NEB WHEEZING AND SOB; Start 10/30/18 at 22:00 Albuterol (Proventil 0.083% (Neb)) 2.5 mg Q6H RESP THERAPY PRN NEB WHEEZING AND SOB; Start 10/30/18 at 22:00 Ascorbic Acid (Vitamin C) 500 mg DAILY GTB Last administered on 11/10/18at 09:12; Admin Dose 500 MG; Start 10/31/18 at 09:00 Metoclopramide HCl (Reglan) 10 mg Q6H PRN GTB NAUSEA AND/OR VOMITING Last administered on 11/10/18at 03:49; Admin Dose 10 MG; Start 10/30/18 at 22:00 Multivitamins (Multivitamin) 30 ml DAILY GTB Last administered on 11/10/18at 09:13; Admin Dose 30 ML; Start 10/31/18 at 09:00 Pantoprazole (Protonix Tab) 40 mg DAILY@0600 PO Last administered on 11/10/18 05:17; Admin Dose 40 MG; Start 10/31/18 at 06:00 Ferrous Sulfate (Feosol Liquid Cup) 300 mg BID PO Last administered on 11/10/18 09:08; Admin Dose 300 MG; Start 10/30/18 at 22:00 Levetiracetam (Keppra Liquid) 1,500 mg BID GTB Last administered on 11/10/18 09:08; Admin Dose 1,500 MG; Start 10/30/18 at 22:30 Acetaminophen (Tylenol Liquid) 650 mg Q4H PRN GTB MILD PAIN(1-3)OR ELEVATED TEMP Last administered on 11/10/18 01:30; Admin Dose 650 MG; Start 10/31/18 at 00:00 Nystatin (Nystatin Oint) 1 applic BID TOP Last administered on 11/10/18 09:14; Admin Dose 1 APPLIC; Start 10/31/18 at 21:00 Aspirin (Aspirin) 81 mg DAILY PO Last administered on 11/10/18 09:13; Admin Dose 81 MG; Start 11/01/18 at 09:00 Tramadol HCl (Ultram) 50 mg Q4 PRN PO MODERATE PAIN LEVEL 4-6 Last administered on 11/05/18 03:18; Admin Dose 50 MG; Start 11/01/18 at 21:00 Metoprolol Tartrate (Lopressor) 5 mg Q4 PRN IV ELEVATED HEART RATE; Start 11/01/18 at 21:00 Docusate Sodium (Colace Liquid Cup) 100 mg BID GTB Last administered on 11/08/18 21:06; Admin Dose 100 MG; Start 11/02/18 at 09:00 Collagenase (Santyl) 1 applic DAILY TOP Last administered on 11/10/18 09:13; Admin Dose 1 APPLIC; Start 11/03/18 at 09:00 Midodrine (Proamatine) 5 mg TID@,17 GTB Last administered on 11/10/18 13:05; Admin Dose 5 MG; Start 11/03/18 at 02:30 Potassium Chloride (Potassium Chloride Pwd/Soln) 20 meq BID GTB Last administered on 11/10/18 09:13; Admin Dose 20 MEQ; Start 11/04/18 at 09:00 Lorazepam (Ativan) 1 mg Q4H PRN IV AGITATION Last administered on 11/05/18 11 :36; Admin Dose 1 MG; Start 11/05/18 at 11:30 Morphine Sulfate (morphine) 1 mg Q4H PRN IV SEVERE PAIN LEVEL 7-10 Last administered on 11/05/18 13:07; Admin Dose 1 MG; Start 11/05/18 at 13:30 Colistimethate Sodium (Colistin Inhal) 75 mg BID RESP THERAPY NEB Last administered on 11/10/18 09:34; Admin Dose 75 MG; Start 11/07/18 at 12:00 Metoprolol Tartrate (Lopressor) 12.5 mg BID GTB Last administered on 11/09/18 21:12; Admin Dose 12.5 MG; Start 11/08/18 at 21:00 Gentamicin Sulfate (Gentamicin Iv Per Pharmacy) GENTAMICIN PER PHARMACY NOTE XX ; Start 11/08/18 at 15:00 Piperacillin Sod/ Tazobactam Sod 100 ml @ 200 mls/hr Q8 IVPB Last administered on 11/10/18 05:18; Admin Dose 200 MLS/HR; Start 11/08/18 at 22:00 Gentamicin Sulfate 290 mg/ Sodium Chloride 107.25 ml @ 107.25 mls/hr Q24H IVPB Last administered on 11/09/18 17:44; Admin Dose 107.25 MLS/HR; Start 11/08/18 at 16:00 ELOINA MISHRA Nov 10, 2018 13:15
--- NOTE | 2018-11-10 16:06 | CONS ---
Assessment/Plan Assessment/Plan Hospital Course (Demo Recall) Patient spiked fever last night of 101.4, currently afebrile. Lipase 719, tube feeding restarted Antimicrobials: Gentamicin, Zosyn, Colistin INH Microbiology: Blood culture on admission grew coag negative staph species, urine culture grew Proteus mirabilis. Sputum culture grew Acinetobacter, Pseudomonas and Klebsiella ESBL susceptible to gentamicin CT of the chest on admission revealed right lower lobe dense wench shaped consolidation with moderate bilateral peribronchial nodular opacities consistent with multifocal pneumonia. Hydronephrosis of the right kidney of mild severity secondary to partial visualization of a 10 mm stone in the right proximal ureter with wall thickening and inflammation of the right renal pelvic wall and proximal ureteral wall. Please see full report in the chart Physical examination: Chronically ill-appearing vegetative middle-aged man who is in no distress. Head atraumatic normocephalic neck is supple tracheostomy present chest rise symmetrical breath sounds diminished bases. Heart: S1-S2. Abdomen soft bowel sounds hypoactive. Extremities wasted contractured Assessment: 1. Severe sepsis, present on admission 2. Coag negative staph bacteremia, possibly line sepsis as patient had PICC line on admission that was discontinued 3. Multifocal healthcare associated pneumonia 4. Urinary tract infection with obstructive uropathy 5. Vegetative 6. Elevated lipase ?pancreatitis 7. DNR Plan: Clinically unchanged, continue antibiotics, repeat cultures as needed, GI recommendations Consultation Date/Type/Reason Admit Date/Time October 30, 2018 at 08:15 Initial Consult Date Type of Consult id Requesting Provider: RICHARD GIRARD MD Date/Time of Note DATE: 11/10/18 TIME: 16:05 Exam/Review of Systems Exam Vitals Vital Signs Date Temp Pulse Resp B/P (MAP) Pulse Ox O2 O2 Flow FiO2 Time Delivery Rate 11/10/18 85 15 98 40 15:19 11/10/18 98.1 104/65 12:00 (78) 11/06/18 Trach 15:40 Collar Intake and Output 11/09/18 11/09/18 11/10/18 1515:00 23:00 07:00 IntakeIntake Total 1467.25 ml 307.25 ml OutputOutput Total 1200 ml 1700 ml BalanceBalance 267.25 ml -1700 ml 307.25 ml Results Result Diagram: 11/10/18 0606 11/10/18 0606 Results 24hrs Laboratory Tests Test 11/10/18 06:06 White Blood Count 8.9 # Red Blood Count 3.67 L Hemoglobin 8.8 L Hematocrit 29.4 L Mean Corpuscular Volume 80.1 L Mean Corpuscular Hemoglobin 24.0 L Mean Corpuscular Hemoglobin Concent 29.9 L Red Cell Distribution Width 19.8 H Platelet Count 367 # Mean Platelet Volume 11.4 H Immature Granulocytes % 2.100 H Neutrophils % 70.5 Lymphocytes % 21.6 Monocytes % 4.5 Eosinophils % 0.8 Basophils % 0.5 Nucleated Red Blood Cells % 0.0 Immature Granulocytes # 0.190 H Neutrophils # 6.3 Lymphocytes # 1.9 Monocytes # 0.4 Eosinophils # 0.1 Basophils # 0.0 Nucleated Red Blood Cells # 0.0 Sodium Level 144 Potassium Level 4.4 Chloride Level 112 H Carbon Dioxide Level 22 Anion Gap 10 Blood Urea Nitrogen 10 Creatinine 0.48 L Est Glomerular Filtrat Rate mL/min > 60 Glucose Level 97 Calcium Level 9.3 Lipase 719 H Medications Medication Current Medications Albuterol (Proventil 0.083% (Neb)) 2.5 mg Q3H RESP THERAPY PRN NEB WHEEZING AND SOB; Start 10/30/18 at 22:00 Albuterol (Proventil 0.083% (Neb)) 2.5 mg Q6H RESP THERAPY PRN NEB WHEEZING AND SOB; Start 10/30/18 at 22:00 Ascorbic Acid (Vitamin C) 500 mg DAILY GTB Last administered on 11/10/18 09:12; Admin Dose 500 MG; Start 10/31/18 at 09:00 Metoclopramide HCl (Reglan) 10 mg Q6H PRN GTB NAUSEA AND/OR VOMITING Last administered on 11/10/18 03:49; Admin Dose 10 MG; Start 10/30/18 at 22:00 Multivitamins (Multivitamin) 30 ml DAILY GTB Last administered on 11/10/18 09:13; Admin Dose 30 ML; Start 10/31/18 at 09:00 Pantoprazole (Protonix Tab) 40 mg DAILY@0600 PO Last administered on 11/10/18 05:17; Admin Dose 40 MG; Start 10/31/18 at 06:00 Ferrous Sulfate (Feosol Liquid Cup) 300 mg BID PO Last administered on 11/10/18 09:08; Admin Dose 300 MG; Start 10/30/18 at 22:00 Levetiracetam (Keppra Liquid) 1,500 mg BID GTB Last administered on 11/10/18 09:08; Admin Dose 1,500 MG; Start 10/30/18 at 22:30 Acetaminophen (Tylenol Liquid) 650 mg Q4H PRN GTB MILD PAIN(1-3)OR ELEVATED TEMP Last administered on 11/10/18 01:30; Admin Dose 650 MG; Start 10/31/18 at 00:00 Nystatin (Nystatin Oint) 1 applic BID TOP Last administered on 11/10/18 09:14; Admin Dose 1 APPLIC; Start 10/31/18 at 21:00 Aspirin (Aspirin) 81 mg DAILY PO Last administered on 11/10/18 09:13; Admin Dose 81 MG; Start 11/01/18 at 09:00 Tramadol HCl (Ultram) 50 mg Q4 PRN PO MODERATE PAIN LEVEL 4-6 Last administered on 11/05/18 03:18; Admin Dose 50 MG; Start 11/01/18 at 21:00 Metoprolol Tartrate (Lopressor) 5 mg Q4 PRN IV ELEVATED HEART RATE; Start 11/01/18 at 21:00 Docusate Sodium (Colace Liquid Cup) 100 mg BID GTB Last administered on 11/08/18 21:06; Admin Dose 100 MG; Start 11/02/18 at 09:00 Collagenase (Santyl) 1 applic DAILY TOP Last administered on 11/10/18 09:13; Admin Dose 1 APPLIC; Start 11/03/18 at 09:00 Midodrine (Proamatine) 5 mg TID@,,17 GTB Last administered on 11/10/18 13:05; Admin Dose 5 MG; Start 11/03/18 at 02:30 Potassium Chloride (Potassium Chloride Pwd/Soln) 20 meq BID GTB Last administered on 11/10/18 09:13; Admin Dose 20 MEQ; Start 11/04/18 at 09:00 Lorazepam (Ativan) 1 mg Q4H PRN IV AGITATION Last administered on 11/05/18at 1 1:36; Admin Dose 1 MG; Start 11/05/18 at 11:30 Morphine Sulfate (morphine) 1 mg Q4H PRN IV SEVERE PAIN LEVEL 7-10 Last administered on 11/05/18 13:07; Admin Dose 1 MG; Start 11/05/18 at 13:30 Colistimethate Sodium (Colistin Inhal) 75 mg BID RESP THERAPY NEB Last administered on 11/10/18 09:34; Admin Dose 75 MG; Start 11/07/18 at 12:00 Metoprolol Tartrate (Lopressor) 12.5 mg BID GTB Last administered on 11/09/18 21:12; Admin Dose 12.5 MG; Start 11/08/18 at 21:00 Gentamicin Sulfate (Gentamicin Iv Per Pharmacy) GENTAMICIN PER PHARMACY NOTE XX ; Start 11/08/18 at 15:00 Piperacillin Sod/ Tazobactam Sod 100 ml @ 200 mls/hr Q8 IVPB Last administered on 11/10/18 14:56; Admin Dose 200 MLS/HR; Start 11/08/18 at 22:00 Gentamicin Sulfate 290 mg/ Sodium Chloride 107.25 ml @ 107.25 mls/hr Q24H IVPB Last administered on 11/09/18 17:44; Admin Dose 107.25 MLS/HR; Start 11/08/18 at 16:00 YURY YOON NP Nov 10, 2018 16:06
[2018-11-10] MEDS: GENTAMICIN 290 MG in SOD CHLORIDE 0.9% 100 ML IVPB SCH (16:16)
--- NOTE | 2018-11-10 18:42 | PN ---
Date/Time of Note Date/Time of Note DATE: 11/10/18 TIME: 18:39 Assessment/Plan VTE Prophylaxis Risk score (from Ns)>0 risk: 5 SCD applied (from Ns): Yes Pharmacological prophylaxis: NA/contraindicated Pharm contraindication: anticoag not tolerated Lines/Catheters IV C[facility]ter Type (from [facility] Peripheral IV Urinary Cath still in place: Yes Reason Cath still needed: urinary retention Assessment/Plan Hospital Course Lipase is 719 today, patient had an episode of emesis and high residual for which tube feeding was stopped for 4 hours currently tube feeding is resumed at 55 cc an hour with minimal residual continue to follow-up GI recommendations, patient continues on Gent, Zosyn and Tobra inhalation for pneumonia, continues on ventilatory support. Assessment/Plan -Urinary retention. Dr. Regan is following in urology consultation. Continue Charles catheter. -Hypernatremia, resolved. continue free water flushes where G-tube. -Sepsis with gram-positive cocci bacteremia MDR Proteus UTI. Continue antibiotics per ID. Dr. Matias is following in infection disease consultation. -Non-ST elevation myocardial infarction, continue aspirin, beta-samantha. Dr. Flor is following in cardiology consultation. -Pancreatitis. Dr. Walton is following in gastroenterology consultation. -Ventilator dependent respiratory failure with tracheostomy. -Anoxic encephalopathy status post cardiac arrest in 2009 -Ventilator dependent respiratory failure -Dysphagia with PEG -Seizure disorder, continue Keppra. -Schizophrenia -Multiple wounds, continue current wound care, offloading. Further recommendations based on clinical course. Plan of care discussed with Dr. Courtney. Result Diagram: 11/10/18 0606 11/10/18 0606 Results 24hrs Laboratory Tests Test 11/10/18 06:06 White Blood Count 8.9 # Red Blood Count 3.67 L Hemoglobin 8.8 L Hematocrit 29.4 L Mean Corpuscular Volume 80.1 L Mean Corpuscular Hemoglobin 24.0 L Mean Corpuscular Hemoglobin Concent 29.9 L Red Cell Distribution Width 19.8 H Platelet Count 367 # Mean Platelet Volume 11.4 H Immature Granulocytes % 2.100 H Neutrophils % 70.5 Lymphocytes % 21.6 Monocytes % 4.5 Eosinophils % 0.8 Basophils % 0.5 Nucleated Red Blood Cells % 0.0 Immature Granulocytes # 0.190 H Neutrophils # 6.3 Lymphocytes # 1.9 Monocytes # 0.4 Eosinophils # 0.1 Basophils # 0.0 Nucleated Red Blood Cells # 0.0 Sodium Level 144 Potassium Level 4.4 Chloride Level 112 H Carbon Dioxide Level 22 Anion Gap 10 Blood Urea Nitrogen 10 Creatinine 0.48 L Est Glomerular Filtrat Rate mL/min > 60 Glucose Level 97 Calcium Level 9.3 Lipase 719 H Exam/Review of Systems Exam Vitals Vital Signs Date Temp Pulse Resp B/P (MAP) Pulse Ox O2 O2 Flow FiO2 Time Delivery Rate 11/10/18 73 18 99 40 17:10 11/10/18 98.1 104/65 12:00 (78) 11/06/18 Trach 15:40 Collar Intake and Output 11/09/18 11/09/18 11/10/18 1515:00 23:00 07:00 IntakeIntake Total 1467.25 ml 307.25 ml OutputOutput Total 1200 ml 1700 ml BalanceBalance 267.25 ml -1700 ml 307.25 ml Exam Constitutional: frail Neck: supple, other (Tracheostomy) Respiratory: diminished breath sounds Cardiovascular: regular rate and rhythm, other Gastrointestinal: soft, tender Musculoskeletal: other Extremities: other (Contracted extremities) Neurological: other (Noncommunicative) Skin: other (Multiple wounds) Results Results 24hrs Laboratory Tests Test 11/10/18 06:06 White Blood Count 8.9 # Red Blood Count 3.67 L Hemoglobin 8.8 L Hematocrit 29.4 L Mean Corpuscular Volume 80.1 L Mean Corpuscular Hemoglobin 24.0 L Mean Corpuscular Hemoglobin Concent 29.9 L Red Cell Distribution Width 19.8 H Platelet Count 367 # Mean Platelet Volume 11.4 H Immature Granulocytes % 2.100 H Neutrophils % 70.5 Lymphocytes % 21.6 Monocytes % 4.5 Eosinophils % 0.8 Basophils % 0.5 Nucleated Red Blood Cells % 0.0 Immature Granulocytes # 0.190 H Neutrophils # 6.3 Lymphocytes # 1.9 Monocytes # 0.4 Eosinophils # 0.1 Basophils # 0.0 Nucleated Red Blood Cells # 0.0 Sodium Level 144 Potassium Level 4.4 Chloride Level 112 H Carbon Dioxide Level 22 Anion Gap 10 Blood Urea Nitrogen 10 Creatinine 0.48 L Est Glomerular Filtrat Rate mL/min > 60 Glucose Level 97 Calcium Level 9.3 Lipase 719 H Medications Medication Current Medications Albuterol (Proventil 0.083% (Neb)) 2.5 mg Q3H RESP THERAPY PRN NEB WHEEZING AND SOB; Start 10/30/18 at 22:00 Albuterol (Proventil 0.083% (Neb)) 2.5 mg Q6H RESP THERAPY PRN NEB WHEEZING AND SOB; Start 10/30/18 at 22:00 Ascorbic Acid (Vitamin C) 500 mg DAILY GTB Last administered on 11/10/18 09:12; Admin Dose 500 MG; Start 10/31/18 at 09:00 Metoclopramide HCl (Reglan) 10 mg Q6H PRN GTB NAUSEA AND/OR VOMITING Last administered on 11/10/18 03:49; Admin Dose 10 MG; Start 10/30/18 at 22:00 Multivitamins (Multivitamin) 30 ml DAILY GTB Last administered on 11/10/18 09:13; Admin Dose 30 ML; Start 10/31/18 at 09:00 Pantoprazole (Protonix Tab) 40 mg DAILY@0600 PO Last administered on 11/10/18 05:17; Admin Dose 40 MG; Start 10/31/18 at 06:00 Ferrous Sulfate (Feosol Liquid Cup) 300 mg BID PO Last administered on 11/10/18 09:08; Admin Dose 300 MG; Start 10/30/18 at 22:00 Levetiracetam (Keppra Liquid) 1,500 mg BID GTB Last administered on 11/10/18 09:08; Admin Dose 1,500 MG; Start 10/30/18 at 22:30 Acetaminophen (Tylenol Liquid) 650 mg Q4H PRN GTB MILD PAIN(1-3)OR ELEVATED TEMP Last administered on 11/10/18 01:30; Admin Dose 650 MG; Start 10/31/18 at 00:00 Nystatin (Nystatin Oint) 1 applic BID TOP Last administered on 11/10/18 09:14; Admin Dose 1 APPLIC; Start 10/31/18 at 21:00 Aspirin (Aspirin) 81 mg DAILY PO Last administered on 11/10/18 09:13; Admin Dose 81 MG; Start 11/01/18 at 09:00 Tramadol HCl (Ultram) 50 mg Q4 PRN PO MODERATE PAIN LEVEL 4-6 Last administered on 11/05/18 03:18; Admin Dose 50 MG; Start 11/01/18 at 21:00 Metoprolol Tartrate (Lopressor) 5 mg Q4 PRN IV ELEVATED HEART RATE; Start 11/01/18 at 21:00 Docusate Sodium (Colace Liquid Cup) 100 mg BID GTB Last administered on 11/08/18 21:06; Admin Dose 100 MG; Start 11/02/18 at 09:00 Collagenase (Santyl) 1 applic DAILY TOP Last administered on 11/10/18 09:13; Admin Dose 1 APPLIC; Start 11/03/18 at 09:00 Midodrine (Proamatine) 5 mg TID@,13,17 GTB Last administered on 11/10/18 16:18; Admin Dose 5 MG; Start 11/03/18 at 02:30 Potassium Chloride (Potassium Chloride Pwd/Soln) 20 meq BID GTB Last adminis tered on 11/10/18 09:13; Admin Dose 20 MEQ; Start 11/04/18 at 09:00 Lorazepam (Ativan) 1 mg Q4H PRN IV AGITATION Last administered on 11/05/18 11:36; Admin Dose 1 MG; Start 11/05/18 at 11:30 Morphine Sulfate (morphine) 1 mg Q4H PRN IV SEVERE PAIN LEVEL 7-10 Last administered on 11/05/18 13:07; Admin Dose 1 MG; Start 11/05/18 at 13:30 Colistimethate Sodium (Colistin Inhal) 75 mg BID RESP THERAPY NEB Last administered on 11/10/18 09:34; Admin Dose 75 MG; Start 11/07/18 at 12:00 Metoprolol Tartrate (Lopressor) 12.5 mg BID GTB Last administered on 11/09/18 21:12; Admin Dose 12.5 MG; Start 11/08/18 at 21:00 Gentamicin Sulfate (Gentamicin Iv Per Pharmacy) GENTAMICIN PER PHARMACY NOTE XX ; Start 11/08/18 at 15:00 Piperacillin Sod/ Tazobactam Sod 100 ml @ 200 mls/hr Q8 IVPB Last administered on 11/10/18 14:56; Admin Dose 200 MLS/HR; Start 11/08/18 at 22:00 Gentamicin Sulfate 290 mg/ Sodium Chloride 107.25 ml @ 107.25 mls/hr Q24H IVPB Last administered on 11/10/18at 16:16; Admin Dose 107.25 MLS/HR; Start 11/08/18 at 16:00 JH WISDOM Nov 10, 2018 18:42
[2018-11-11] VITALS (21 sets, daily range): BP systolic 99–122; BP diastolic 61–89; PULSE 78–91; RESP 14–28
[2018-11-11] MEDS: PANTOPRAZOLE (EC) 40 MG TAB PO SCH (06:43)
[2018-11-11] MEDS: PIPER-TAZO 3.375 GM IV (PMX) 100 ML IVPB SCH ×3 (06:43→22:04)
--- NOTE | 2018-11-11 07:55 | CONS ---
Consult Date/Type/Reason Admit Date/Time October 30, 2018 at 08:15 Initial Consult Date 11/03/18 Type of Consultation: Urology Reason for Consultation Urinary retention and bilateral kidney stones Requesting Provider: RICHARD GIRARD MD Date/Time of Note DATE: 11/11/18 TIME: 07:51 Subjective Patient is nonverbal. No acute events overnight Objective Vitals Vital Signs Date Temp Pulse Resp B/P (MAP) Pulse Ox O2 O2 Flow FiO2 Time Delivery Rate 11/11/18 86 16 94 40 07:42 11/11/18 98.6 99/64 (76) 04:00 Intake and Output 11/10/18 11/10/18 11/11/18 1515:00 23:00 07:00 IntakeIntake Total 1567.25 ml 700 ml OutputOutput Total 930 ml 800 ml BalanceBalance 637.25 ml -100 ml Exam Charles catheter draining well and the urine is clear Results/Medications Result Diagram: 11/10/1860511/10/18 06 Home Meds Reported Medications Ascorbic Acid* (Vitamin C*) 500 Mg Capsule.sa, 500 MG GTB DAILY, CAP 10/30/18 Cran/Vitc/Mannose/Inulin/Brom (Uti-Stat Liquid) 3,875 Mg/30 Ml Liquid, 3875 MG GTB BID 10/30/18 Acetaminophen* (Acetaminophen*) 650 Mg Tablet, 650 MG GTB TRACH CHANGE PRN for PAIN, #30 TAB 10/30/18 Acetaminophen* (Acetaminophen*) 325 Mg Tablet, 650 MG GTB BID PRN for PAIN MANAGEMENT, #30 TAB 10/30/18 Metoclopramide Hcl* (Metoclopramide Hcl*) 10 Mg Tablet, 10 MG GTB Q6H PRN for NAUSEA AND OR VOMITING, TAB 10/30/18 Potassium Chloride* (Potassium Chloride*) 20 Meq/15 Ml Liquid, 20 MEQ GTB DAILY, ML DILUTE WITH 120 CCS OF WATER 10/30/18 Multivitamin* (Daily Value*) 1 Each Tablet, 1 TAB GTB DAILY, TAB 10/30/18 Levetiracetam* (Keppra* (Ped)) 100 Mg/Ml Liq, 1500 MG GTB BID for 30 Days, BOTTLE 10/30/18 Ferrous Sulfate (Ferrous Sulfate) 220 Mg/5 Ml Solution, 300 MG GTB BID 10/30/18 Dexlansoprazole (Dexilant) 60 Mg Josiah., 60 MG GTB DAILY, #30 CAP 10/30/18 Cranberry Extract (Cranberry) 425 Mg Capsule, 425 MG GTB BID, CAP 10/30/18 Docusate Sodium* (Colace*) 100 Mg Capsule, 100 MG GTB QHS, #60 CAP 10/30/18 Chlorhexidine Gluconate (Peridex) 473 Ml Mouthwash, 15 ML MM Q12, BOTTLE 10/30/18 Albuterol Sulfate* (Albuterol Sulfate* Neb) 0.083%-3 Ml Neb, 2.5 MG NEB Q6 PRN for WHEEZING AND SOB, #30 VIAL 10/30/18 Albuterol Sulfate* (Albuterol Sulfate* Neb) 0.083%-3 Ml Neb, 2.5 MG NEB Q3H PRN for WHEEZING AND SOB, #30 VIAL 10/30/18 Medications Current Medications Albuterol (Proventil 0.083% (Neb)) 2.5 mg Q3H RESP THERAPY PRN NEB WHEEZING AND SOB; Start 10/30/18 at 22:00 Albuterol (Proventil 0.083% (Neb)) 2.5 mg Q6H RESP THERAPY PRN NEB WHEEZING AND SOB; Start 10/30/18 at 22:00 Ascorbic Acid (Vitamin C) 500 mg DAILY GTB Last administered on 11/10/18at 09:12; Admin Dose 500 MG; Start 10/31/18 at 09:00 Metoclopramide HCl (Reglan) 10 mg Q6H PRN GTB NAUSEA AND/OR VOMITING Last administered on 11/10/18at 03:49; Admin Dose 10 MG; Start 10/30/18 at 22:00 Multivitamins (Multivitamin) 30 ml DAILY GTB Last administered on 11/10/18at 09:13; Admin Dose 30 ML; Start 10/31/18 at 09:00 Pantoprazole (Protonix Tab) 40 mg DAILY@0600 PO Last administered on 11/11/18 06:43; Admin Dose 40 MG; Start 10/31/18 at 06:00 Ferrous Sulfate (Feosol Liquid Cup) 300 mg BID PO Last administered on 11/10/18at 21:54; Admin Dose 300 MG; Start 10/30/18 at 22:00 Levetiracetam (Keppra Liquid) 1,500 mg BID GTB Last administered on 11/10/18 21:53; Admin Dose 1,500 MG; Start 10/30/18 at 22:30 Acetaminophen (Tylenol Liquid) 650 mg Q4H PRN GTB MILD PAIN(1-3)OR ELEVATED TEMP Last administered on 11/10/18 01:30; Admin Dose 650 MG; Start 10/31/18 at 00:00 Nystatin (Nystatin Oint) 1 applic BID TOP Last administered on 11/10/18 21:54; Admin Dose 1 APPLIC; Start 10/31/18 at 21:00 Aspirin (Aspirin) 81 mg DAILY PO Last administered on 11/10/18 09:13; Admin Dose 81 MG; Start 11/01/18 at 09:00 Tramadol HCl (Ultram) 50 mg Q4 PRN PO MODERATE PAIN LEVEL 4-6 Last administered on 11/05/18 03:18; Admin Dose 50 MG; Start 11/01/18 at 21:00 Metoprolol Tartrate (Lopressor) 5 mg Q4 PRN IV ELEVATED HEART RATE; Start 11/01/18 at 21:00 Docusate Sodium (Colace Liquid Cup) 100 mg BID GTB Last administered on 11/10/18 21:54; Admin Dose 100 MG; Start 11/02/18 at 09:00 Collagenase (Santyl) 1 applic DAILY TOP Last administered on 11/10/18 09:13; Admin Dose 1 APPLIC; Start 11/03/18 at 09:00 Midodrine (Proamatine) 5 mg TID@,17 GTB Last administered on 11/10/18 16:18; Admin Dose 5 MG; Start 11/03/18 at 02:30 Potassium Chloride (Potassium Chloride Pwd/Soln) 20 meq BID GTB Last administered on 11/10/18 21:55; Admin Dose 20 MEQ; Start 11/04/18 at 09:00 Lorazepam (Ativan) 1 mg Q4H PRN IV AGITATION Last administered on 11/05/18 11:36; Admin Dose 1 MG; Start 11/05/18 at 11:30 Morphine Sulfate (morphine) 1 mg Q4H PRN IV SEVERE PAIN LEVEL 7-10 Last administered on 11/05/18 13:07; Admin Dose 1 MG; Start 11/05/18 at 13:30 Colistimethate Sodium (Colistin Inhal) 75 mg BID RESP THERAPY NEB Last administered on 11/10/18 19:35; Admin Dose 75 MG; Start 11/07/18 at 12:00 Metoprolol Tartrate (Lopressor) 12.5 mg BID GTB Last administered on 11/10/18 21:56; Admin Dose 12.5 MG; Start 11/08/18 at 21:00 Gentamicin Sulfate (Gentamicin Iv Per Pharmacy) GENTAMICIN PER PHARMACY NOTE XX ; Start 11/08/18 at 15:00 Piperacillin Sod/ Tazobactam Sod 100 ml @ 200 mls/hr Q8 IVPB Last administered on 11/11/18 06:43; Admin Dose 200 MLS/HR; Start 11/08/18 at 22:00 Gentamicin Sulfate 290 mg/ Sodium Chloride 107.25 ml @ 107.25 mls/hr Q24H IVPB Last administered on 11/10/18 16:16; Admin Dose 107.25 MLS/HR; Start 11/08/18 at 16:00 Assessment/Plan Hospital Course (Demo Recall) This is a 47-year-old male, SNF resident at [facility]. He had attempted suicide in 2009. He has a past medical history of vent dependent Respiratory Failure, anoxic brain injury and encephalopathy, seizure disorder secondary to his anoxic brain injury, dysphagia, status post GT placement . The patient is admitted with c/o changes in his mental status. The patient has flexion contraction of the upper extremities and nursing staff indicated that he did not appear as rigid in his upper extremities. Patient was found to have urinary retention and a Charles catheter was inserted and 1200 mL drained out. Prior to that the patient has been incontinent. Urological consultation was therefore requested. The patient is encephalopathic and not capable of giving any history. All the information were obtained from reviewing his medical record. Renal ultrasound: Both kidneys are normal in echogenicity. There is normal renal cortical thickness without focal thinning or scarring. No solid renal masses are identified. There are multiple nonobstructing right intrarenal calculi measuring between 7-8 mm. No hydronephrosis is seen. No stone burden is noted within the left kidney. The right kidney measures 13.4 cm, and the left kidney measures 9.7 cm. Spot images of the pelvis demonstrating normally distended bladder with smooth contours. CT scan of the chest: There is right lower lobe dense wedge-shaped consolidation with moderate bilateral peribronchial nodular opacities consistent with multifocal pneumonia. Study for pulmonary embolus is severely limited due to motion with possible pulmonary embolus in the right lower lobe basilar segment however this may be artifactual from motion and repeat study may be considered. 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 There is hydronephrosis of the right kidney of mild severity secondary to partial visualization of a 10 mm stone in the right proximal ureter with wall thickening and inflammation of the right renal pelvic wall and proximal ureteral wall. Right hilar adenopathy is present which may be reactive in nature and can be reassessed with followup CT chest after 3 months. Atherosclerotic disease. No acute pulmonary process. Patient condition is unchanged. Most likely this patient has had urinary retention for a long time and was overflowing. Because of the urinary retention we will keep the Charles catheter. Also the patient also does have bilateral kidney stones and a stone in the right upper ureter. Considering the patient's general condition I would recommend to observe him for the stones. His urine is clear and his renal function is good. CASTILLO NAVARRETE MD Nov 11, 2018 07:55
[2018-11-11] MEDS: DOCUSATE SODIUM 10 MG/ML (10ML CUP) GTB SCH ×2 (09:00→21:00)
[2018-11-11] MEDS: MIDODRINE 5 MG TAB GTB SCH ×3 (09:00→17:00)
[2018-11-11] MEDS: METOPROLOL 25 MG TAB GTB SCH ×2 (09:00→21:57)
[2018-11-11] MEDS: ASPIRIN 81 MG TAB PO SCH (09:20)
[2018-11-11] MEDS: COLLAGENASE 5 GM (UD JAR) TOP SCH (09:20)
[2018-11-11] MEDS: FERROUS SULFATE 60 MG/ML 5ML CUP PO SCH ×2 (09:20→21:55)
[2018-11-11] MEDS: POTASSIUM CHLORIDE 20 MEQ POWDER FOR ORAL SOLN GTB SCH ×2 (09:20→21:54)
[2018-11-11] MEDS: LEVETIRACETAM (100 MG/ML) 5ML CUP GTB SCH ×2 (09:20→21:54)
[2018-11-11] MEDS: MULTIVITAMINS 30 ML CUP GTB SCH (09:20)
[2018-11-11] MEDS: ASCORBIC ACID 500 MG TAB GTB SCH (09:21)
[2018-11-11] MEDS: BALSAM PERU/CASTOR OIL 60 GM TUBE TOP SCH (09:23)
[2018-11-11] MEDS: NYSTATIN 15 GM OINT TOP SCH ×2 (09:23→21:59)
--- NOTE | 2018-11-11 10:37 | CONS ---
Assessment/Plan Assessment/Plan Assessment/Plan (Daily) Ventilator setting; noted Assessment and recommendations; 1. Patient with history of advanced encephalopathy and VDR F admitted with severe bilateral pneumonia with significant interval clinical and radiological improvement. 2. Stable seizure disorder. Continue current supportive care. Consider discharge to shelter with continuation of IV antibiotics per ID recommendations. Consultation Date/Type/Reason Admit Date/Time October 30, 2018 at 08:15 Initial Consult Date Type of Consult Pulmonary Patient is a 47-year-old male who has been transferred from shelter because of fever. Patient had been diagnosed a UTI with possibly pyonephritis. Currently on appropriate antimicrobial regimen. Because of advanced encephalopathy, patient remains totally noncommunicative. However, patient did not appear to be in any distress. Past medical history; 1. Advanced encephalopathy 2. VDRF 3. G-tube placement. 4. Seizure disorder. Medications; reviewed. Allergies; none. Social history; not available. Family history; not available. Occupational history; patient is on disability. Review of system; unable to be obtained. General exam; young male, on ventilator via tracheostomy, non communicative and unresponsive. Currently no distress. Requesting Provider: RICHARD GIRARD MD Date/Time of Note DATE: 11/11/18 TIME: 10:35 24 HR Interval Summary Free Text/Dictation Patient's condition is stable. Has remained hemodynamically stable. General exam; young male, on ventilator via tracheostomy, noncommunicative. Currently in no distress. Exam/Review of Systems Exam Vitals Vital Signs Date Temp Pulse Resp B/P (MAP) Pulse Ox O2 O2 Flow FiO2 Time Delivery Rate 11/11/18 80 08:01 11/11/18 98.5 18 99/61 (74) 97 07:58 11/11/18 40 07:42 Intake and Output 11/10/18 11/10/18 11/11/18 1515:00 23:00 07:00 IntakeIntake Total 1567.25 ml 700 ml OutputOutput Total 930 ml 800 ml BalanceBalance 637.25 ml -100 ml Exam H EENT exam; supple neck, no JVD. No lymphadenopathy. Midline trachea. No thyromegaly. Patient is edentulous. Tracheostomy in place. Insertion site is clean. Chest exam; diminished breath sounds bilaterally. S1-S2 audible, no murmurs. Regular rhythm. Abdomen exam; soft, no organomegaly. G-tube in place. Bowel sounds audible. Extremity exam; peripheral edema. Patient has a flexion contractures. DIRECT CHILL CASTER exam; remains noncommunicative. Results Result Diagram: 11/10/1860511/10/18 06 Results 24hrs Laboratory Tests Test 11/11/18 06:51 Lipase 615 H Medications Medication Current Medications Albuterol (Proventil 0.083% (Neb)) 2.5 mg Q3H RESP THERAPY PRN NEB WHEEZING AND SOB; Start 10/30/18 at 22:00 Albuterol (Proventil 0.083% (Neb)) 2.5 mg Q6H RESP THERAPY PRN NEB WHEEZING AND SOB; Start 10/30/18 at 22:00 Ascorbic Acid (Vitamin C) 500 mg DAILY GTB Last administered on 11/11/18 09:21; Admin Dose 500 MG; Start 10/31/18 at 09:00 Metoclopramide HCl (Reglan) 10 mg Q6H PRN GTB NAUSEA AND/OR VOMITING Last administered on 11/10/18 03:49; Admin Dose 10 MG; Start 10/30/18 at 22:00 Multivitamins (Multivitamin) 30 ml DAILY GTB Last administered on 11/11/18 09:20; Admin Dose 30 ML; Start 10/31/18 at 09:00 Pantoprazole (Protonix Tab) 40 mg DAILY@0600 PO Last administered on 11/11/18 06:43; Admin Dose 40 MG; Start 10/31/18 at 06:00 Ferrous Sulfate (Feosol Liquid Cup) 300 mg BID PO Last administered on 11/11/18 09:20; Admin Dose 300 MG; Start 10/30/18 at 22:00 Levetiracetam (Keppra Liquid) 1,500 mg BID GTB Last administered on 11/11/18 09:20; Admin Dose 1,500 MG; Start 10/30/18 at 22:30 Acetaminophen (Tylenol Liquid) 650 mg Q4H PRN GTB MILD PAIN(1-3)OR ELEVATED TEMP Last administered on 11/10/18 01:30; Admin Dose 650 MG; Start 10/31/18 at 00:00 Nystatin (Nystatin Oint) 1 applic BID TOP Last administered on 11/11/18 09:23; Admin Dose 1 APPLIC; Start 10/31/18 at 21:00 Aspirin (Aspirin) 81 mg DAILY PO Last administered on 11/11/18 09:20; Admin Dose 81 MG; Start 11/01/18 at 09:00 Tramadol HCl (Ultram) 50 mg Q4 PRN PO MODERATE PAIN LEVEL 4-6 Last administered on 11/05/18 03:18; Admin Dose 50 MG; Start 11/01/18 at 21:00 Metoprolol Tartrate (Lopressor) 5 mg Q4 PRN IV ELEVATED HEART RATE; Start 11/01/18 at 21:00 Docusate Sodium (Colace Liquid Cup) 100 mg BID GTB Last administered on 11/10/18 21:54; Admin Dose 100 MG; Start 11/02/18 at 09:00 Collagenase (Santyl) 1 applic DAILY TOP Last administered on 11/11/18 09:20; Admin Dose 1 APPLIC; Start 11/03/18 at 09:00 Midodrine (Proamatine) 5 mg TID@,,17 GTB Last administered on 11/10/18 16:18; Admin Dose 5 MG; Start 11/03/18 at 02:30 Potassium Chloride (Potassium Chloride Pwd/Soln) 20 meq BID GTB Last administered on 11/11/18 09:20; Admin Dose 20 MEQ; Start 11/04/18 at 09:00 Lorazepam (Ativan) 1 mg Q4H PRN IV AGITATION Last administered on 11/05/18 11:36; Admin Dose 1 MG; Start 11/05/18 at 11:30 Morphine Sulfate (morphine) 1 mg Q4H PRN IV SEVERE PAIN LEVEL 7-10 Last ad ministered on 11/05/18 13:07; Admin Dose 1 MG; Start 11/05/18 at 13:30 Colistimethate Sodium (Colistin Inhal) 75 mg BID RESP THERAPY NEB Last administered on 11/10/18 19:35; Admin Dose 75 MG; Start 11/07/18 at 12:00 Metoprolol Tartrate (Lopressor) 12.5 mg BID GTB Last administered on 11/10/18 21:56; Admin Dose 12.5 MG; Start 11/08/18 at 21:00 Gentamicin Sulfate (Gentamicin Iv Per Pharmacy) GENTAMICIN PER PHARMACY NOTE XX ; Start 11/08/18 at 15:00 Piperacillin Sod/ Tazobactam Sod 100 ml @ 200 mls/hr Q8 IVPB Last administered on 11/11/18at 06:43; Admin Dose 200 MLS/HR; Start 11/08/18 at 22:00 Gentamicin Sulfate 290 mg/ Sodium Chloride 107.25 ml @ 107.25 mls/hr Q24H IVPB Last administered on 11/10/18at 16:16; Admin Dose 107.25 MLS/HR; Start 11/08/18 at 16:00 MI JEFFERS Nov 11, 2018 10:37
[2018-11-11] MEDS: COLISTIMETHATE (25 MG/ML INHAL SYG) NEB SCH ×2 (13:46→19:44)
--- NOTE | 2018-11-11 15:21 | CONS ---
Assessment/Plan Assessment/Plan Hospital Course (Demo Recall) No events, looks comfortable, afebrile Antimicrobials: Gentamicin, Zosyn, Colistin INH Microbiology: Blood culture on admission grew coag negative staph species, urine culture grew Proteus mirabilis. Sputum culture grew Acinetobacter, Pseudomonas and Klebsiella ESBL susceptible to gentamicin CT of the chest on admission revealed right lower lobe dense wench shaped consolidation with moderate bilateral peribronchial nodular opacities consistent with multifocal pneumonia. Hydronephrosis of the right kidney of mild severity secondary to partial visualization of a 10 mm stone in the right proximal ureter with wall thickening and inflammation of the right renal pelvic wall and proxima l ureteral wall. Please see full report in the chart Physical examination: Chronically ill-appearing vegetative middle-aged man who is in no distress. Head atraumatic normocephalic neck is supple tracheostomy present chest rise symmetrical breath sounds diminished bases. Heart: S1-S2. Abdomen soft bowel sounds hypoactive. Extremities wasted contractured Assessment: 1. Severe sepsis, present on admission 2. Coag negative staph bacteremia, possibly line sepsis as patient had PICC line on admission that was discontinued 3. Multifocal healthcare associated pneumonia 4. Urinary tract infection with obstructive uropathy 5. Vegetative 6. Elevated lipase ?pancreatitis 7. DNR Plan: Clinically unchanged, continue antibiotics, repeat cultures as needed, GI recommendations Consultation Date/Type/Reason Admit Date/Time October 30, 2018 at 08:15 Initial Consult Date Type of Consult id Requesting Provider: RICHARD GIRARD MD Date/Time of Note DATE: 11/11/18 TIME: 15:21 Exam/Review of Systems Exam Vitals Vital Signs Date Temp Pulse Resp B/P (MAP) Pulse Ox O2 O2 Flow FiO2 Time Delivery Rate 11/11/18 91 22 98 50 13:47 11/11/18 98.0 102/70 11:23 (81) Intake and Output 11/10/18 11/10/18 11/11/18 1515:00 23:00 07:00 IntakeIntake Total 1567.25 ml 700 ml OutputOutput Total 930 ml 800 ml BalanceBalance 637.25 ml -100 ml Results Result Diagram: 11/10/18 0606 11/10/18 0606 Results 24hrs Laboratory Tests Test 11/11/18 06:51 Lipase 615 H Medications Medication Current Medications Albuterol (Proventil 0.083% (Neb)) 2.5 mg Q3H RESP THERAPY PRN NEB WHEEZING AND SOB; Start 10/30/18 at 22:00 Albuterol (Proventil 0.083% (Neb)) 2.5 mg Q6H RESP THERAPY PRN NEB WHEEZING AND SOB; Start 10/30/18 at 22:00 Ascorbic Acid (Vitamin C) 500 mg DAILY GTB Last administered on 11/11/18 09:21; Admin Dose 500 MG; Start 10/31/18 at 09:00 Metoclopramide HCl (Reglan) 10 mg Q6H PRN GTB NAUSEA AND/OR VOMITING Last administered on 11/10/18 03:49; Admin Dose 10 MG; Start 10/30/18 at 22:00 Multivitamins (Multivitamin) 30 ml DAILY GTB Last administered on 11/11/18 09:20; Admin Dose 30 ML; Start 10/31/18 at 09:00 Pantoprazole (Protonix Tab) 40 mg DAILY@0600 PO Last administered on 11/11/18 06:43; Admin Dose 40 MG; Start 10/31/18 at 06:00 Ferrous Sulfate (Feosol Liquid Cup) 300 mg BID PO Last administered on 11/11/18 09:20; Admin Dose 300 MG; Start 10/30/18 at 22:00 Levetiracetam (Keppra Liquid) 1,500 mg BID GTB Last administered on 11/11/18 09:20; Admin Dose 1,500 MG; Start 10/30/18 at 22:30 Acetaminophen (Tylenol Liquid) 650 mg Q4H PRN GTB MILD PAIN(1-3)OR ELEVATED TEMP Last administered on 11/10/18 01:30; Admin Dose 650 MG; Start 10/31/18 at 00:00 Nystatin (Nystatin Oint) 1 applic BID TOP Last administered on 11/11/18 09:23; Admin Dose 1 APPLIC; Start 10/31/18 at 21:00 Aspirin (Aspirin) 81 mg DAILY PO Last administered on 11/11/18 09:20; Admin Dose 81 MG; Start 11/01/18 at 09:00 Tramadol HCl (Ultram) 50 mg Q4 PRN PO MODERATE PAIN LEVEL 4-6 Last administered on 11/05/18 03:18; Admin Dose 50 MG; Start 11/01/18 at 21:00 Metoprolol Tartrate (Lopressor) 5 mg Q4 PRN IV ELEVATED HEART RATE; Start 11/01/18 at 21:00 Docusate Sodium (Colace Liquid Cup) 100 mg BID GTB Last administered on 11/10/18 21:54; Admin Dose 100 MG; Start 11/02/18 at 09:00 Collagenase (Santyl) 1 applic DAILY TOP Last administered on 11/11/18 09:20; Admin Dose 1 APPLIC; Start 11/03/18 at 09:00 Midodrine (Proamatine) 5 mg TID@09,13,17 GTB Last administered on 11/10/18 16:18; Admin Dose 5 MG; Start 11/03/18 at 02:30 Potassium Chloride (Potassium Chloride Pwd/Soln) 20 meq BID GTB Last administered on 11/11/18 09:20; Admin Dose 20 MEQ; Start 11/04/18 at 09:00 Lorazepam (Ativan) 1 mg Q4H PRN IV AGITATION Last administered on 11/05/18 11:36; Admin Dose 1 MG; Start 11/05/18 at 11:30 Morphine Sulfate (morphine) 1 mg Q4H PRN IV SEVERE PAIN LEVEL 7-10 Last a dministered on 11/05/18 13:07; Admin Dose 1 MG; Start 11/05/18 at 13:30 Colistimethate Sodium (Colistin Inhal) 75 mg BID RESP THERAPY NEB Last administered on 11/11/18 13:46; Admin Dose 75 MG; Start 11/07/18 at 12:00 Metoprolol Tartrate (Lopressor) 12.5 mg BID GTB Last administered on 11/10/18 21:56; Admin Dose 12.5 MG; Start 11/08/18 at 21:00 Gentamicin Sulfate (Gentamicin Iv Per Pharmacy) GENTAMICIN PER PHARMACY NOTE XX ; Start 11/08/18 at 15:00 Piperacillin Sod/ Tazobactam Sod 100 ml @ 200 mls/hr Q8 IVPB Last administered on 11/11/18 06:43; Admin Dose 200 MLS/HR; Start 11/08/18 at 22:00 Gentamicin Sulfate 290 mg/ Sodium Chloride 107.25 ml @ 107.25 mls/hr Q24H IVPB Last administered on 11/10/18at 16:16; Admin Dose 107.25 MLS/HR; Start 11/08/18 at 16:00 YURY YOON NP Nov 11, 2018 15:21
[2018-11-11] MEDS: GENTAMICIN 290 MG in SOD CHLORIDE 0.9% 100 ML IVPB SCH (16:00)
[2018-11-11] MEDS ORDERED: IOHEXOL 14.3 MG(I)/ML (ADULT) BTL PO ONE (19:30)
--- NOTE | 2018-11-11 20:15 | PN ---
Date/Time of Note Date/Time of Note DATE: 11/11/18 TIME: 20:11 Assessment/Plan VTE Prophylaxis Risk score (from Ns)>0 risk: 3 SCD applied (from Ns): Yes Pharmacological prophylaxis: NA/contraindicated Pharm contraindication: anticoag not tolerated Lines/Catheters IV Catheter Type (from [facility]): Peripheral IV Central line still needed: Yes Urinary Cath still in place: Yes Reason Cath still needed: urinary retention Assessment/Plan Hospital Course Patient with elevated lipase however tolerates feeding without nausea and vomiting or high residual. Discussed with Dr. Walton, will obtain CT of the abdomen and pelvis for further evaluation for pancreatitis. Patient continues on Gent, Zosyn and Tobra inhalation for pneumonia, continues on ventilatory support. Patient did not receive the gentamicin and Zosyn evening dose because of no excess, plan to insert midline. Assessment/Plan -Urinary retention. Dr. Regan is following in urology consultation. Continue Charles catheter. -Hypernatremia, resolved. continue free water flushes where G-tube. -Sepsis with gram-positive cocci bacteremia MDR Proteus UTI. Continue antibiotics per ID. Dr. Matias is following in infection disease consultation. -Non-ST elevation myocardial infarction, continue aspirin, beta-samantha. Dr. Flor is following in cardiology consultation. -Pancreatitis. Dr. Walton is following in gastroenterology consultation. -Ventilator dependent respiratory failure with tracheostomy. -Anoxic encephalopathy status post cardiac arrest in 2009 -Ventilator dependent respiratory failure -Dysphagia with PEG -Seizure disorder, continue Keppra. -Schizophrenia -Multiple wounds, continue current wound care, offloading. Further recommendations based on clinical course. Plan of care discussed with Dr. Courtney. Result Diagram: 11/10/18 0611/10/18 06 Results 24hrs Laboratory Tests Test 11/11/18 06:51 Lipase 615 H Exam/Review of Systems Exam Vitals Vital Signs Date Temp Pulse Resp B/P (MAP) Pulse Ox O2 O2 Flow FiO2 Time Delivery Rate 11/11/18 80 14 96 50 19:44 11/11/18 99.0 111/78 15:57 (89) Intake and Output 11/10/18 11/10/18 11/11/18 1515:00 23:00 07:00 IntakeIntake Total 1567.25 ml 700 ml OutputOutput Total 930 ml 800 ml BalanceBalance 637.25 ml -100 ml Exam Constitutional: frail Neck: supple, other (Tracheostomy) Respiratory: diminished breath sounds Cardiovascular: regular rate and rhythm, other Gastrointestinal: soft, tender Musculoskeletal: other Extremities: other (Contracted extremities) Neurological: other (Noncommunicative) Skin: other (Multiple wounds) Results Results 24hrs Laboratory Tests Test 11/11/18 06:51 Lipase 615 H Medications Medication Current Medications Albuterol (Proventil 0.083% (Neb)) 2.5 mg Q3H RESP THERAPY PRN NEB WHEEZING AND SOB; Start 10/30/18 at 22:00 Albuterol (Proventil 0.083% (Neb)) 2.5 mg Q6H RESP THERAPY PRN NEB WHEEZING AND SOB; Start 10/30/18 at 22:00 Ascorbic Acid (Vitamin C) 500 mg DAILY GTB Last administered on 11/11/18 09:21; Admin Dose 500 MG; Start 10/31/18 at 09:00 Metoclopramide HCl (Reglan) 10 mg Q6H PRN GTB NAUSEA AND/OR VOMITING Last administered on 11/10/18 03:49; Admin Dose 10 MG; Start 10/30/18 at 22:00 Multivitamins (Multivitamin) 30 ml DAILY GTB Last administered on 11/11/18 09:20; Admin Dose 30 ML; Start 10/31/18 at 09:00 Pantoprazole (Protonix Tab) 40 mg DAILY@0600 PO Last administered on 11/11/18 06:43; Admin Dose 40 MG; Start 10/31/18 at 06:00 Ferrous Sulfate (Feosol Liquid Cup) 300 mg BID PO Last administered on 11/11/18 09:20; Admin Dose 300 MG; Start 10/30/18 at 22:00 Levetiracetam (Keppra Liquid) 1,500 mg BID GTB Last administered on 11/11/18 09:20; Admin Dose 1,500 MG; Start 10/30/18 at 22:30 Acetaminophen (Tylenol Liquid) 650 mg Q4H PRN GTB MILD PAIN(1-3)OR ELEVATED TEMP Last administered on 11/10/18 01:30; Admin Dose 650 MG; Start 10/31/18 at 00:00 Nystatin (Nystatin Oint) 1 applic BID TOP Last administered on 11/11/18 09:23; Admin Dose 1 APPLIC; Start 10/31/18 at 21:00 Aspirin (Aspirin) 81 mg DAILY PO Last administered on 11/11/18 09:20; Admin Dose 81 MG; Start 11/01/18 at 09:00 Tramadol HCl (Ultram) 50 mg Q4 PRN PO MODERATE PAIN LEVEL 4-6 Last administered on 11/05/18 03:18; Admin Dose 50 MG; Start 11/01/18 at 21:00 Metoprolol Tartrate (Lopressor) 5 mg Q4 PRN IV ELEVATED HEART RATE; Start 11/01/18 at 21:00 Docusate Sodium (Colace Liquid Cup) 100 mg BID GTB Last administered on 11/10/18 21:54; Admin Dose 100 MG; Start 11/02/18 at 09:00 Collagenase (Santyl) 1 applic DAILY TOP Last administered on 11/11/18 09:20; Admin Dose 1 APPLIC; Start 11/03/18 at 09:00 Midodrine (Proamatine) 5 mg TID@,,17 GTB Last administered on 11/10/18 16:18; Admin Dose 5 MG; Start 11/03/18 at 02:30 Potassium Chloride (Potassium Chloride Pwd/Soln) 20 meq BID GTB Last administered on 11/11/18 09:20; Admin Dose 20 MEQ; Start 11/04/18 at 09:00 Lorazepam (Ativan) 1 mg Q4H PRN IV AGITATION Last administered on 11/05/18 11:36; Admin Dose 1 MG; Start 11/05/18 at 11:30 Morphine Sulfate (morphine) 1 mg Q4H PRN IV SEVERE PAIN LEVEL 7-10 Last administered on 11/05/18 13:07; Admin Dose 1 MG; Start 11/05/18 at 13:30 Colistimethate Sodium (Colistin Inhal) 75 mg BID RESP THERAPY NEB Last administered on 11/11/18 19:44; Admin Dose 75 MG; Start 11/07/18 at 12:00 Metoprolol Tartrate (Lopressor) 12.5 mg BID GTB Last administered on 11/10/18 21:56; Admin Dose 12.5 MG; Start 11/08/18 at 21:00 Gentamicin Sulfate (Gentamicin Iv Per Pharmacy) GENTAMICIN PER PHARMACY NOTE XX ; Start 11/08/18 at 15:00 Piperacillin Sod/ Tazobactam Sod 100 ml @ 200 mls/hr Q8 IVPB Last administered on 11/11/18at 06:43; Admin Dose 200 MLS/HR; Start 11/08/18 at 22:00 Gentamicin Sulfate 290 mg/ Sodium Chloride 107.25 ml @ 107.25 mls/hr Q24H IVPB Last administered on 11/10/18at 16:16; Admin Dose 107.25 MLS/HR; Start 11/08/18 at 16:00 Miscellaneous Information (*Rx Drug Level Order Reminder*) GENT TROUGH @ 1,500 ON... 1500 ONCE XX ; Start 11/12/18 at 15:00; Stop 11/12/18 at 15:01 JH WISDOM Nov 11, 2018 20:15
[2018-11-12] VITALS (20 sets, daily range): BP systolic 95–112; BP diastolic 63–79; PULSE 66–89; RESP 14–28
--- NOTE | 2018-11-12 04:45 | PN ---
Date/Time of Note Date/Time of Note DATE: 11/12/18 TIME: 04:44 Assessment/Plan VTE Prophylaxis Risk score (from Ns)>0 risk: 6 SCD applied (from [facility] [place] [facility]): Yes SCD contraindicated: other Pharmacological prophylaxis: other Pharm contraindication: other Lines/Catheters IV [facility]ter Type (from [facility]): Peripheral IV Urinary Cath still in place: Yes Reason Cath still needed: urinary retention Assessment/Plan Assessment/Plan -Urinary retention. Dr. Regan is following in urology consultation. Continue Charles catheter. -Hypernatremia, resolved. continue free water flushes where G-tube. -Sepsis with gram-positive cocci bacteremia MDR Proteus UTI. Continue antibiotics per ID. Dr. Matias is following in infection disease consultation. -Non-ST elevation myocardial infarction, continue aspirin, beta-samantha. Dr. Flor is following in cardiology consultation. -Pancreatitis. Dr. Walton is following in gastroenterology consultation. -Ventilator dependent respiratory failure with tracheostomy. -Anoxic encephalopathy status post cardiac arrest in 2009 -Ventilator dependent respiratory failure -Dysphagia with PEG -Seizure disorder, continue Keppra. - Anemia- monitor CBC -Schizophrenia -Multiple wounds, continue current wound care, offloading. Further recommendations based on clinical course. Plan of care discussed with Dr. Courtney. Result Diagram: 11/10/18 0606 11/10/18 0606 Results 24hrs Laboratory Tests Test 11/11/18 06:51 Lipase 615 H Exam/Review of Systems Exam Vitals Vital Signs Date Temp Pulse Resp B/P (MAP) Pulse Ox O2 O2 Flow FiO2 Time Delivery Rate 11/12/18 98.5 89 18 108/78 96 04:00 (88) 11/12/18 50 01:22 Intake and Output 11/11/18 11/11/18 11/12/18 1515:00 23:00 07:00 IntakeIntake Total 1260 ml OutputOutput Total 250 ml BalanceBalance 1010 ml Constitutional: alert, non-verbal, frail Psych: nl mood/affect Head: normocephalic Eyes: nl lids, nl sclera ENMT: nl external ears & nose Neck: other (trach intact) Respiratory: clear to auscultation Cardiovascular: nl pulses, other (s1s2) Gastrointestinal: soft, other (gt intact) Musculoskeletal: joint tenderness, muscle weakness, range of motion Neurological: lethargic Skin: other Results Results 24hrs Laboratory Tests Test 11/11/18 06:51 Lipase 615 H Medications Medication Current Medications Albuterol (Proventil 0.083% (Neb)) 2.5 mg Q3H RESP THERAPY PRN NEB WHEEZING AND SOB; Start 10/30/18 at 22:00 Albuterol (Proventil 0.083% (Neb)) 2.5 mg Q6H RESP THERAPY PRN NEB WHEEZING AND SOB; Start 10/30/18 at 22:00 Ascorbic Acid (Vitamin C) 500 mg DAILY GTB Last administered on 11/11/18 09:21; Admin Dose 500 MG; Start 10/31/18 at 09:00 Metoclopramide HCl (Reglan) 10 mg Q6H PRN GTB NAUSEA AND/OR VOMITING Last administered on 11/10/18 03:49; Admin Dose 10 MG; Start 10/30/18 at 22:00 Multivitamins (Multivitamin) 30 ml DAILY GTB Last administered on 11/11/18 09:20; Admin Dose 30 ML; Start 10/31/18 at 09:00 Pantoprazole (Protonix Tab) 40 mg DAILY@0600 PO Last administered on 11/11/18 06:43; Admin Dose 40 MG; Start 10/31/18 at 06:00 Ferrous Sulfate (Feosol Liquid Cup) 300 mg BID PO Last administered on 11/11/18 21:55; Admin Dose 300 MG; Start 10/30/18 at 22:00 Levetiracetam (Keppra Liquid) 1,500 mg BID GTB Last administered on 11/11/18 21:54; Admin Dose 1,500 MG; Start 10/30/18 at 22:30 Acetaminophen (Tylenol Liquid) 650 mg Q4H PRN GTB MILD PAIN(1-3)OR ELEVATED TEMP Last administered on 11/10/18 01:30; Admin Dose 650 MG; Start 10/31/18 at 00:00 Nystatin (Nystatin Oint) 1 applic BID TOP Last administered on 11/11/18 21:59; Admin Dose 1 APPLIC; Start 10/31/18 at 21:00 Aspirin (Aspirin) 81 mg DAILY PO Last administered on 11/11/18 09:20; Admin Dose 81 MG; Start 11/01/18 at 09:00 Tramadol HCl (Ultram) 50 mg Q4 PRN PO MODERATE PAIN LEVEL 4-6 Last administered on 11/05/18 03:18; Admin Dose 50 MG; Start 11/01/18 at 21:00 Metoprolol Tartrate (Lopressor) 5 mg Q4 PRN IV ELEVATED HEART RATE; Start 11/01/18 at 21:00 Docusate Sodium (Colace Liquid Cup) 100 mg BID GTB Last administered on 11/10/18 21:54; Admin Dose 100 MG; Start 11/02/18 at 09:00 Collagenase (Santyl) 1 applic DAILY TOP Last administered on 11/11/18 09:20; Admin Dose 1 APPLIC; Start 11/03/18 at 09:00 Midodrine (Proamatine) 5 mg TID@09,13,17 GTB Last administered on 11/10/18 16:18; Admin Dose 5 MG; Start 11/03/18 at 02:30 Potassium Chloride (Potassium Chloride Pwd/Soln) 20 meq BID GTB Last administered on 11/11/18 21:54; Admin Dose 20 MEQ; Start 11/04/18 at 09:00 Lorazepam (Ativan) 1 mg Q4H PRN IV AGITATION Last administered on 11/05/18 11:36; Admin Dose 1 MG; Start 11/05/18 at 11:30 Morphine Sulfate (morphine) 1 mg Q4H PRN IV SEVERE PAIN LEVEL 7-10 Last administered on 11/05/18 13:07; Admin Dose 1 MG; Start 11/05/18 at 13:30 Colistimethate Sodium (Colistin Inhal) 75 mg BID RESP THERAPY NEB Last administered on 11/11/18 19:44; Admin Dose 75 MG; Start 11/07/18 at 12:00 Metoprolol Tartrate (Lopressor) 12.5 mg BID GTB Last administered on 11/11/18 21:57; Admin Dose 12.5 MG; Start 11/08/18 at 21:00 Gentamicin Sulfate (Gentamicin Iv Per Pharmacy) GENTAMICIN PER PHARMACY NOTE XX ; Start 11/08/18 at 15:00 Piperacillin Sod/ Tazobactam Sod 100 ml @ 200 mls/hr Q8 IVPB Last administered on 11/11/18 22:04; Admin Dose 200 MLS/HR; Start 11/08/18 at 22:00 Gentamicin Sulfate 290 mg/ Sodium Chloride 107.25 ml @ 107.25 mls/hr Q24H IVPB Last administered on 11/10/18at 16:16; Admin Dose 107.25 MLS/HR; Start 11/08/18 at 16:00 Miscellaneous Information (*Rx Drug Level Order Reminder*) GENT TROUGH @ 1,500 ON... 1500 ONCE XX ; Start 11/12/18 at 15:00; Stop 11/12/18 at 15:01 SHELLEY HERNANDEZ Nov 12, 2018 04:45
[2018-11-12] MEDS: PANTOPRAZOLE (EC) 40 MG TAB PO SCH (05:53)
[2018-11-12] MEDS: PIPER-TAZO 3.375 GM IV (PMX) 100 ML IVPB SCH ×3 (05:53→22:11)
--- NOTE | 2018-11-12 06:59 | PN ---
DATE: 11/11/2018 HISTORY OF PRESENT ILLNESS: The patient is seen by me because of possibility of having ongoing pancr eatitis. Initially, his amylase and lipase dropped when he was n.p.o. Subsequently, he was started on a G-tube feeding. It appears like after the G-tube feeding, he seems to have elevated amylase and lipase. Lipase is 719 yesterday, today is 615. The lipase on 11/06/2018 was 1371. It had gone clarisse n to 112 on 11/03/2018. PHYSICAL EXAMINATION: GENERAL: The patient is alert but is nonverbal. He does not understand the surroundings. VITAL SIGNS: Temperature 99, blood pressure is 111/78. CARDIOVASCULAR: Normal heart sounds. RESPIRATORY: Normal breath sounds. ABDOMEN: Shows soft abdomen. LABORATORY WORKUP: Sodium 152, potassium 2.7 that was a long time ago, but the latest potassium is 4 .4. WBC count is 8900 done yesterday, hemoglobin 8.8. CLINICAL IMPRESSION: The patient seems to have evidence of ongoing pancreatitis, particularly when h e started on the G-tube feeding. Etiology of pancreatitis is not very clear. PLAN: At this time, I recommend also repeat CAT scan of the abdomen and we will follow the patient c losely. Once again, doctor, thank you for this consultation. Dictated By: LUCIE HUNTER MD NC/NTS Conf#: [id number] DID#: [id number] CC: RICHARD GIRARD MD; DONTE NEWTON MD;*EndCC*
[2018-11-12] MEDS: MIDODRINE 5 MG TAB GTB SCH ×3 (09:00→17:29)
[2018-11-12] MEDS: DOCUSATE SODIUM 10 MG/ML (10ML CUP) GTB SCH ×3 (09:00→21:00)
--- NOTE | 2018-11-12 09:14 | CONS ---
Consult Date/Type/Reason Admit Date/Time October 30, 2018 at 08:15 Initial Consult Date 11/03/18 Type of Consultation: Urology Reason for Consultation Urinary retention and renal stones Requesting Provider: RICHARD GIRARD MD Date/Time of Note DATE: 11/12/18 TIME: 09:11 Subjective Patient is nonverbal, his condition is unchanged Objective Vitals Vital Signs Date Temp Pulse Resp B/P (MAP) Pulse Ox O2 O2 Flow FiO2 Time Delivery Rate 11/12/18 98.9 82 20 109/69 100 Trach 08:03 (82) Collar 11/12/18 100 06:18 Intake and Output 11/11/18 11/11/18 11/12/18 1515:00 23:00 07:00 IntakeIntake Total 1460 ml 1360 ml OutputOutput Total 250 ml 850 ml BalanceBalance 1210 ml 510 ml Exam Charles is draining clear urine Results/Medications Result Diagram: 11/12/18 0559 11/12/18 0559 Results 24 hrs Laboratory Tests Test 11/12/18 05:59 White Blood Count 9.9 Red Blood Count 3.94 L Hemoglobin 9.5 L Hematocrit 32.1 L Mean Corpuscular Volume 81.5 L Mean Corpuscular Hemoglobin 24.1 L Mean Corpuscular Hemoglobin Concent 29.6 L Red Cell Distribution Width 20.8 H Platelet Count 422 H Mean Platelet Volume 12.1 H Immature Granulocytes % 1.100 H Neutrophils % 75.0 Lymphocytes % 18.4 Monocytes % 4.3 Eosinophils % 0.7 Basophils % 0.5 Nucleated Red Blood Cells % 0.0 Immature Granulocytes # 0.110 H Neutrophils # 7.4 Lymphocytes # 1.8 Monocytes # 0.4 Eosinophils # 0.1 Basophils # 0.1 Nucleated Red Blood Cells # 0.0 Sodium Level 141 Potassium Level 4.7 Chloride Level 108 Carbon Dioxide Level 23 Anion Gap 10 Blood Urea Nitrogen 12 Creatinine 0.49 L Est Glomerular Filtrat Rate mL/min > 60 Glucose Level 105 Calcium Level 9.7 Home Meds Reported Medications Ascorbic Acid* (Vitamin C*) 500 Mg Capsule.sa, 500 MG GTB DAILY, CAP 10/30/18 Cran/Vitc/Mannose/Inulin/Brom (Uti-Stat Liquid) 3,875 Mg/30 Ml Liquid, 3875 MG GTB BID 5/25/19 Acetaminophen* (Acetaminophen*) 650 Mg Tablet, 650 MG GTB TRACH CHANGE PRN for PAIN, #30 TAB 10/30/18 Acetaminophen* (Acetaminophen*) 325 Mg Tablet, 650 MG GTB BID PRN for PAIN MANAGEMENT, #30 TAB 10/30/18 Metoclopramide Hcl* (Metoclopramide Hcl*) 10 Mg Tablet, 10 MG GTB Q6H PRN for NAUSEA AND OR VOMITING, TAB 10/30/18 Potassium Chloride* (Potassium Chloride*) 20 Meq/15 Ml Liquid, 20 MEQ GTB DAILY, ML DILUTE WITH 120 CCS OF WATER 10/30/18 Multivitamin* (Daily Value*) 1 Each Tablet, 1 TAB GTB DAILY, TAB 10/30/18 Levetiracetam* (Keppra* (Ped)) 100 Mg/Ml Liq, 1500 MG GTB BID for 30 Days, BOTTLE 10/30/18 Ferrous Sulfate (Ferrous Sulfate) 220 Mg/5 Ml Solution, 300 MG GTB BID 10/30/18 Dexlansoprazole (Dexilant) 60 Mg Cap., 60 MG GTB DAILY, #30 CAP 10/30/18 Cranberry Extract (Cranberry) 425 Mg Capsule, 425 MG GTB BID, CAP 10/30/18 Docusate Sodium* (Colace*) 100 Mg Capsule, 100 MG GTB QHS, #60 CAP 10/30/18 Chlorhexidine Gluconate (Peridex) 473 Ml Mouthwash, 15 ML MM Q12, BOTTLE 10/30/18 Albuterol Sulfate* (Albuterol Sulfate* Neb) 0.083%-3 Ml Neb, 2.5 MG NEB Q6 PRN for WHEEZING AND SOB, #30 VIAL 10/30/18 Albuterol Sulfate* (Albuterol Sulfate* Neb) 0.083%-3 Ml Neb, 2.5 MG NEB Q3H PRN for WHEEZING AND SOB, #30 VIAL 10/30/18 Medications Current Medications Albuterol (Proventil 0.083% (Neb)) 2.5 mg Q3H RESP THERAPY PRN NEB WHEEZING AND SOB; Start 10/30/18 at 22:00 Albuterol (Proventil 0.083% (Neb)) 2.5 mg Q6H RESP THERAPY PRN NEB WHEEZING AND SOB; Start 10/30/18 at 22:00 Ascorbic Acid (Vitamin C) 500 mg DAILY GTB Last administered on 11/11/18 09:21; Admin Dose 500 MG; Start 10/31/18 at 09:00 Metoclopramide HCl (Reglan) 10 mg Q6H PRN GTB NAUSEA AND/OR VOMITING Last administered on 11/10/18 03:49; Admin Dose 10 MG; Start 10/30/18 at 22:00 Multivitamins (Multivitamin) 30 ml DAILY GTB Last administered on 11/11/18 09:20; Admin Dose 30 ML; Start 10/31/18 at 09:00 Pantoprazole (Protonix Tab) 40 mg DAILY@0600 PO Last administered on 11/12/18 05:53; Admin Dose 40 MG; Start 10/31/18 at 06:00 Ferrous Sulfate (Feosol Liquid Cup) 300 mg BID PO Last administered on 11/11/18 21:55; Admin Dose 300 MG; Start 10/30/18 at 22:00 Levetiracetam (Keppra Liquid) 1,500 mg BID GTB Last administered on 11/11/18 21:54; Admin Dose 1,500 MG; Start 10/30/18 at 22:30 Acetaminophen (Tylenol Liquid) 650 mg Q4H PRN GTB MILD PAIN(1-3)OR ELEVATED TEMP Last administered on 11/10/18 01:30; Admin Dose 650 MG; Start 10/31/18 at 00:00 Nystatin (Nystatin Oint) 1 applic BID TOP Last administered on 11/11/18 21:59; Admin Dose 1 APPLIC; Start 10/31/18 at 21:00 Aspirin (Aspirin) 81 mg DAILY PO Last administered on 11/11/18 09:20; Admin Dose 81 MG; Start 11/01/18 at 09:00 Tramadol HCl (Ultram) 50 mg Q4 PRN PO MODERATE PAIN LEVEL 4-6 Last administered on 11/05/18 03:18; Admin Dose 50 MG; Start 11/01/18 at 21:00 Metoprolol Tartrate (Lopressor) 5 mg Q4 PRN IV ELEVATED HEART RATE; Start 11/01/18 at 21:00 Docusate Sodium (Colace Liquid Cup) 100 mg BID GTB Last administered on 11/10/18 21:54; Admin Dose 100 MG; Start 11/02/18 at 09:00 Collagenase (Santyl) 1 applic DAILY TOP Last administered on 11/11/18 09:20; Admin Dose 1 APPLIC; Start 11/03/18 at 09:00 Midodrine (Proamatine) 5 mg TID@09,13,17 GTB Last administered on 11/10/18 16:18; Admin Dose 5 MG; Start 11/03/18 at 02:30 Potassium Chloride (Potassium Chloride Pwd/Soln) 20 meq BID GTB Last adm inistered on 11/11/18 21:54; Admin Dose 20 MEQ; Start 11/04/18 at 09:00 Lorazepam (Ativan) 1 mg Q4H PRN IV AGITATION Last administered on 11/05/18 11:36; Admin Dose 1 MG; Start 11/05/18 at 11:30 Morphine Sulfate (morphine) 1 mg Q4H PRN IV SEVERE PAIN LEVEL 7-10 Last administered on 11/05/18 13:07; Admin Dose 1 MG; Start 11/05/18 at 13:30 Colistimethate Sodium (Colistin Inhal) 75 mg BID RESP THERAPY NEB Last administered on 11/11/18 19:44; Admin Dose 75 MG; Start 11/07/18 at 12:00 Metoprolol Tartrate (Lopressor) 12.5 mg BID GTB Last administered on 11/11/18 21:57; Admin Dose 12.5 MG; Start 11/08/18 at 21:00 Gentamicin Sulfate (Gentamicin Iv Per Pharmacy) GENTAMICIN PER PHARMACY NOTE XX ; Start 11/08/18 at 15:00 Piperacillin Sod/ Tazobactam Sod 100 ml @ 200 mls/hr Q8 IVPB Last administered on 11/12/18 05:53; Admin Dose 200 MLS/HR; Start 11/08/18 at 22:00 Gentamicin Sulfate 290 mg/ Sodium Chloride 107.25 ml @ 107.25 mls/hr Q24H IVPB Last administered on 11/10/18 16:16; Admin Dose 107.25 MLS/HR; Start 11/08/18 at 16:00 Assessment/Plan Hospital Course (Demo Recall) This is a 47-year-old male, SNF resident at [facility]. He had attempted suicide in 2009. He has a past medical history of vent dependent Respiratory Failure, anoxic brain injury and encephalopathy, seizure disorder secondary to his anoxic brain injury, dysphagia, status post GT placement . The patient is admitted with c/o changes in his mental status. The patient has flexion contraction of the upper extremities and nursing staff indicated that he did not appear as rigid in his upper extremities. Patient was found to have urinary retention and a Charles catheter was inserted and 1200 mL drained out. Prior to that the patient has been incontinent. Urological consultation was therefore requested. The patient is encephalopathic and not capable of giving any history. All the information were obtained from reviewing his medical record. Renal ultrasound: Both kidneys are normal in echogenicity. There is normal renal cortical thickness without focal thinning or scarring. No solid renal masses are identified. There are multiple nonobstructing right intrarenal calculi measuring between 7-8 mm. No hydronephrosis is seen. No stone burden is noted within the left kidney. The right kidney measures 13.4 cm, and the left kidney measures 9.7 cm. Spot images of the pelvis demonstrating normally distended bladder with smooth contours. CT scan of the chest: There is right lower lobe dense wedge-shaped consolidation with moderate bilateral peribronchial nodular opacities consistent with multifocal pneumonia. Study for pulmonary embolus is severely limited due to motion with possible pulmonary embolus in the right lower lobe basilar segment however this may be artifactual from motion and repeat study may be considered. 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 There is hydronephrosis of the right kidney of mild severity secondary to partial visualization of a 10 mm stone in the right proximal ureter with wall thickening and inflammation of the right renal pelvic wall and proximal ureteral wall. Right hilar adenopathy is present which may be reactive in nature and can be reassessed with followup CT chest after 3 months. Atherosclerotic disease. No acute pulmonary process. Patient condition is unchanged. Continue the present treatment CASTILLO NAVARRETE MD Nov 12, 2018 09:13
[2018-11-12] MEDS: LEVETIRACETAM (100 MG/ML) 5ML CUP GTB SCH ×2 (09:47→22:15)
[2018-11-12] MEDS: FERROUS SULFATE 60 MG/ML 5ML CUP PO SCH ×2 (09:47→22:17)
[2018-11-12] MEDS: COLLAGENASE 5 GM (UD JAR) TOP SCH (09:47)
[2018-11-12] MEDS: MULTIVITAMINS 30 ML CUP GTB SCH (09:47)
[2018-11-12] MEDS: GENTAMICIN 290 MG in SOD CHLORIDE 0.9% 100 ML IVPB SCH (09:47)
[2018-11-12] MEDS: POTASSIUM CHLORIDE 20 MEQ POWDER FOR ORAL SOLN GTB SCH ×2 (09:48→22:09)
[2018-11-12] MEDS: METOPROLOL 25 MG TAB GTB SCH ×2 (09:48→21:00)
[2018-11-12] MEDS: ASCORBIC ACID 500 MG TAB GTB SCH (09:48)
[2018-11-12] MEDS: ASPIRIN 81 MG TAB PO SCH (09:48)
[2018-11-12] MEDS: BALSAM PERU/CASTOR OIL 60 GM TUBE TOP SCH (09:49)
[2018-11-12] MEDS: NYSTATIN 15 GM OINT TOP SCH ×2 (09:50→21:00)
[2018-11-12] MEDS: COLISTIMETHATE (25 MG/ML INHAL SYG) NEB SCH ×2 (10:21→20:21)
--- NOTE | 2018-11-12 10:56 | CONS ---
Assessment/Plan Assessment/Plan Assessment/Plan (Daily) Assessment and recommendations; 1. patient with history of chronic severe encephalopathy admitted with severe bilateral pneumonia with significant interval improvement. 2. Chronic VDRF. Continue current supportive care. Antibiotics per ID recommendations. Consider transfer to rehab center. Consultation Date/Type/Reason Admit Date/Time October 30, 2018 at 08:15 Initial Consult Date Type of Consult Pulmonary Patient is a 47-year-old male who has been transferred from residential because of fever. Patient had been diagnosed a UTI with possibly pyonephritis. Currently on appropriate antimicrobial regimen. Because of advanced encephalopathy, patient remains totally noncommunicative. However, patient did not appear to be in any distress. Past medical history; 1. Advanced encephalopathy 2. VDRF 3. G-tube placement. 4. Seizure disorder. Medications; reviewed. Allergies; none. Social history; not available. Family history; not available. Occupational history; patient is on disability. Review of system; unable to be obtained. General exam; young male, on ventilator via tracheostomy, non communicative and unresponsive. Currently no distress. Requesting Provider: RICHARD GIRARD MD Date/Time of Note DATE: 11/12/18 TIME: 10:52 24 HR Interval Summary Free Text/Dictation Patient condition is stable. Remains noncommunicative. But has remained hemodynamically stable. General exam; middle-aged male, on ventilator via tracheostomy, noncommunicative. Currently in no distress. Exam/Review of Systems Exam Vitals Vital Signs Date Temp Pulse Resp B/P (MAP) Pulse Ox O2 O2 Flow FiO2 Time Delivery Rate 11/12/18 98.9 82 20 109/69 100 Trach 08:03 (82) Collar 11/12/18 100 06:18 Intake and Output 11/11/18 11/11/18 11/12/18 1515:00 23:00 07:00 IntakeIntake Total 1460 ml 1360 ml OutputOutput Total 250 ml 850 ml BalanceBalance 1210 ml 510 ml Exam H EENT exam; supple neck, no JVD. No lymphadenopathy. Midline trachea. No thyromegaly. Patient is edentulous. Tracheostomy in place. Chest exam; diminished but clear breath sounds. S1-S2 audible, no murmurs. Regular rhythm. Abdomen exam; soft, G-tube in place. No organomegaly. Bowel sounds audible. Extremity exam; no peripheral edema. Patient has a flexion contractures. 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 Results Result Diagram: 11/12/18 0559 11/12/18 0559 Results 24hrs Laboratory Tests Test 11/12/18 05:59 White Blood Count 9.9 Red Blood Count 3.94 L Hemoglobin 9.5 L Hematocrit 32.1 L Mean Corpuscular Volume 81.5 L Mean Corpuscular Hemoglobin 24.1 L Mean Corpuscular Hemoglobin Concent 29.6 L Red Cell Distribution Width 20.8 H Platelet Count 422 H Mean Platelet Volume 12.1 H Immature Granulocytes % 1.100 H Neutrophils % 75.0 Lymphocytes % 18.4 Monocytes % 4.3 Eosinophils % 0.7 Basophils % 0.5 Nucleated Red Blood Cells % 0.0 Immature Granulocytes # 0.110 H Neutrophils # 7.4 Lymphocytes # 1.8 Monocytes # 0.4 Eosinophils # 0.1 Basophils # 0.1 Nucleated Red Blood Cells # 0.0 Sodium Level 141 Potassium Level 4.7 Chloride Level 108 Carbon Dioxide Level 23 Anion Gap 10 Blood Urea Nitrogen 12 Creatinine 0.49 L Est Glomerular Filtrat Rate mL/min > 60 Glucose Level 105 Calcium Level 9.7 Medications Medication Current Medications Albuterol (Proventil 0.083% (Neb)) 2.5 mg Q3H RESP THERAPY PRN NEB WHEEZING AND SOB; Start 10/30/18 at 22:00 Albuterol (Proventil 0.083% (Neb)) 2.5 mg Q6H RESP THERAPY PRN NEB WHEEZING AND SOB; Start 10/30/18 at 22:00 Ascorbic Acid (Vitamin C) 500 mg DAILY GTB Last administered on 11/12/18at 09:48; Admin Dose 500 MG; Start 10/31/18 at 09:00 Metoclopramide HCl (Reglan) 10 mg Q6H PRN GTB NAUSEA AND/OR VOMITING Last administered on 11/10/18 03:49; Admin Dose 10 MG; Start 10/30/18 at 22:00 Multivitamins (Multivitamin) 30 ml DAILY GTB Last administered on 11/12/18 09:47; Admin Dose 30 ML; Start 10/31/18 at 09:00 Pantoprazole (Protonix Tab) 40 mg DAILY@0600 PO Last administered on 11/12/18 05:53; Admin Dose 40 MG; Start 10/31/18 at 06:00 Ferrous Sulfate (Feosol Liquid Cup) 300 mg BID PO Last administered on 11/12/18 09:47; Admin Dose 300 MG; Start 10/30/18 at 22:00 Levetiracetam (Keppra Liquid) 1,500 mg BID GTB Last administered on 11/12/18 09:47; Admin Dose 1,500 MG; Start 10/30/18 at 22:30 Acetaminophen (Tylenol Liquid) 650 mg Q4H PRN GTB MILD PAIN(1-3)OR ELEVATED TEMP Last administered on 11/10/18 01:30; Admin Dose 650 MG; Start 10/31/18 at 00:00 Nystatin (Nystatin Oint) 1 applic BID TOP Last administered on 11/12/18 09:50; Admin Dose 1 APPLIC; Start 10/31/18 at 21:00 Aspirin (Aspirin) 81 mg DAILY PO Last administered on 11/12/18 09:48; Admin Dose 81 MG; Start 11/01/18 at 09:00 Tramadol HCl (Ultram) 50 mg Q4 PRN PO MODERATE PAIN LEVEL 4-6 Last administered on 11/05/18 03:18; Admin Dose 50 MG; Start 11/01/18 at 21:00 Metoprolol Tartrate (Lopressor) 5 mg Q4 PRN IV ELEVATED HEART RATE; Start 11/01/18 at 21:00 Docusate Sodium (Colace Liquid Cup) 100 mg BID GTB Last administered on 11/10/18 21:54; Admin Dose 100 MG; Start 11/02/18 at 09:00 Collagenase (Santyl) 1 applic DAILY TOP Last administered on 11/12/18 09:47; Admin Dose 1 APPLIC; Start 11/03/18 at 09:00 Midodrine (Proamatine) 5 mg TID@,, GTB Last administered on 11/10/18 16:18; Admin Dose 5 MG; Start 11/03/18 at 02:30 Potassium Chloride (Potassium Chloride Pwd/Soln) 20 meq BID GTB Last administered on 11/12/18 09:48; Admin Dose 20 MEQ; Start 11/04/18 at 09:00 Lorazepam (Ativan) 1 mg Q4H PRN IV AGITATION Last administered on 11/05/18 11:36; Admin Dose 1 MG; Start 11/05/18 at 11:30 Morphine Sulfate (morphine) 1 mg Q4H PRN IV SEVERE PAIN LEVEL 7-10 Last administered on 11/05/18 13:07; Admin Dose 1 MG; Start 11/05/18 at 13:30 Colistimethate Sodium (Colistin Inhal) 75 mg BID RESP THERAPY NEB Last administered on 11/12/18 10:21; Admin Dose 75 MG; Start 11/07/18 at 12:00 Metoprolol Tartrate (Lopressor) 12.5 mg BID GTB Last administered on 11/12/18 09:48; Admin Dose 12.5 MG; Start 11/08/18 at 21:00 Gentamicin Sulfate (Gentamicin Iv Per Pharmacy) GENTAMICIN PER PHARMACY NOTE XX ; Start 11/08/18 at 15:00 Piperacillin Sod/ Tazobactam Sod 100 ml @ 200 mls/hr Q8 IVPB Last administered on 11/12/18 05:53; Admin Dose 200 MLS/HR; Start 11/08/18 at 22:00 Gentamicin Sulfate 290 mg/ Sodium Chloride 107.25 ml @ 107.25 mls/hr Q24H IVPB Last administered on 11/12/18 09:47; Admin Dose 107.25 MLS/HR; Start 11/08/18 at 16:00 MI JEFFERS Nov 12, 2018 10:56
--- NOTE | 2018-11-12 19:03 | CONS ---
Assessment/Plan Assessment/Plan Hospital Course (Demo Recall) 1200 No events, looks comfortable, afebrile Antimicrobials: Gentamicin, Zosyn, Colistin INH Microbiology: Blood culture on admission grew coag negative staph species, urine culture grew Proteus mirabilis. Sputum culture grew Acinetobacter, Pseudomonas and Klebsiella ESBL susceptible to gentamicin CT of the chest on admission revealed right lower lobe dense wench shaped consolidation with moderate bilateral peribronchial nodular opacities consistent with multifocal pneumonia. Hydronephrosis of the right kidney of mild severity secondary to partial visualization of a 10 mm stone in the right proximal ureter with wall thickening and inflammation of the right renal pelvic wall and pr oximal ureteral wall. Please see full report in the chart Physical examination: Chronically ill-appearing vegetative middle-aged man who is in no distress. Head atraumatic normocephalic neck is supple tracheostomy present chest rise symmetrical breath sounds diminished bases. Heart: S1-S2. Abdomen soft bowel sounds hypoactive. Extremities wasted contractured Assessment: 1. Severe sepsis, present on admission 2. Coag negative staph bacteremia, possibly line sepsis as patient had PICC li ne on admission that was discontinued 3. Multifocal healthcare associated pneumonia 4. Urinary tract infection with obstructive uropathy 5. Vegetative 6. Elevated lipase ?pancreatitis 7. DNR Plan: Clinically unchanged, continue antibiotics, repeat cultures as needed, GI recommendations monitor lipase levels Consultation Date/Type/Reason Admit Date/Time October 30, 2018 at 08:15 Initial Consult Date Type of Consult id Requesting Provider: RICHARD GIRARD MD Date/Time of Note DATE: 11/12/18 TIME: 19:02 Exam/Review of Systems Exam Vitals Vital Signs Date Temp Pulse Resp B/P (MAP) Pulse Ox O2 O2 Flow FiO2 Time Delivery Rate 11/12/18 89 28 97 50 17:11 11/12/18 98.4 95/63 (74) Trach 15:10 Collar Intake and Output 11/11/18 11/11/18 11/12/18 1515:00 23:00 07:00 IntakeIntake Total 1460 ml 1360 ml OutputOutput Total 250 ml 850 ml BalanceBalance 1210 ml 510 ml Results Result Diagram: 11/12/18 0559 11/12/18 0559 Results 24hrs Laboratory Tests Test 11/12/18 05:59 11/12/18 11:19 White Blood Count 9.9 Red Blood Count 3.94 L Hemoglobin 9.5 L Hematocrit 32.1 L Mean Corpuscular Volume 81.5 L Mean Corpuscular Hemoglobin 24.1 L Mean Corpuscular Hemoglobin Concent 29.6 L Red Cell Distribution Width 20.8 H Platelet Count 422 H Mean Platelet Volume 12.1 H Immature Granulocytes % 1.100 H Neutrophils % 75.0 Lymphocytes % 18.4 Monocytes % 4.3 Eosinophils % 0.7 Basophils % 0.5 Nucleated Red Blood Cells % 0.0 Immature Granulocytes # 0.110 H Neutrophils # 7.4 Lymphocytes # 1.8 Monocytes # 0.4 Eosinophils # 0.1 Basophils # 0.1 Nucleated Red Blood Cells # 0.0 Sodium Level 141 Potassium Level 4.7 Chloride Level 108 Carbon Dioxide Level 23 Anion Gap 10 Blood Urea Nitrogen 12 Creatinine 0.49 L Est Glomerular Filtrat Rate mL/min > 60 Glucose Level 105 Calcium Level 9.7 Blood Gas Specimen Source Blood arterial Arterial Blood Date Drawn 11/12/2018 11:45:00 AM Arterial Blood pH (Temp corrected) 7.479 H Arterial Blood pCO2 (Temp correct) 30.4 L Arterial Blood pO2 (Temp corrected) 61.8 L Arterial Blood HCO3 22.1 Arterial Blood Base Excess -0.9 Arterial Blood Oxygen Saturation 90.7 L Zechariah Test ACCEPTAB Arterial Blood Gas Puncture Site Right Radial Arterial Blood Carboxyhemoglobin 0.3 Arterial Blood Methemoglobin 0.2 Blood Gas A-a O2 Differential 548.7 H Oxyhemoglobin Percent 90.2 L Blood Gas Temperature 37.0 Blood Gas Respiration Rate 14.0 Blood Gas Actual Respiration Rate 14 Blood Gas Modality VENT - AC FiO2 90.0 Blood Gas Tidal Volume 500.0 Blood Gas Low PEEP Setting 5.0 Blood Gas Notified Whom PVR Blood Gas Notified Time 11/05/2018 11:56:00 AM Medications Medication Current Medications Albuterol (Proventil 0.083% (Neb)) 2.5 mg Q3H RESP THERAPY PRN NEB WHEEZING AND SOB; Start 10/30/18 at 22:00 Albuterol (Proventil 0.083% (Neb)) 2.5 mg Q6H RESP THERAPY PRN NEB WHEEZING AND SOB; Start 10/30/18 at 22:00 Ascorbic Acid (Vitamin C) 500 mg DAILY GTB Last administered on 11/12/18at 09:48; Admin Dose 500 MG; Start 10/31/18 at 09:00 Metoclopramide HCl (Reglan) 10 mg Q6H PRN GTB NAUSEA AND/OR VOMITING Last administered on 11/10/18 03:49; Admin Dose 10 MG; Start 10/30/18 at 22:00 Multivitamins (Multivitamin) 30 ml DAILY GTB Last administered on 11/12/18 09:47; Admin Dose 30 ML; Start 10/31/18 at 09:00 Pantoprazole (Protonix Tab) 40 mg DAILY@0600 PO Last administered on 11/12/18 05:53; Admin Dose 40 MG; Start 10/31/18 at 06:00 Ferrous Sulfate (Feosol Liquid Cup) 300 mg BID PO Last administered on 11/12/18 09:47; Admin Dose 300 MG; Start 10/30/18 at 22:00 Levetiracetam (Keppra Liquid) 1,500 mg BID GTB Last administered on 11/12/18 09:47; Admin Dose 1,500 MG; Start 10/30/18 at 22:30 Acetaminophen (Tylenol Liquid) 650 mg Q4H PRN GTB MILD PAIN(1-3)OR ELEVATED TEMP Last administered on 11/10/18 01:30; Admin Dose 650 MG; Start 10/31/18 at 00:00 Nystatin (Nystatin Oint) 1 applic BID TOP Last administered on 11/12/18 09:50; Admin Dose 1 APPLIC; Start 10/31/18 at 21:00 Aspirin (Aspirin) 81 mg DAILY PO Last administered on 11/12/18 09:48; Admin Dose 81 MG; Start 11/01/18 at 09:00 Tramadol HCl (Ultram) 50 mg Q4 PRN PO MODERATE PAIN LEVEL 4-6 Last administered on 11/05/18 03:18; Admin Dose 50 MG; Start 11/01/18 at 21:00 Metoprolol Tartrate (Lopressor) 5 mg Q4 PRN IV ELEVATED HEART RATE; Start 11/01/18 at 21:00 Docusate Sodium (Colace Liquid Cup) 100 mg BID GTB Last administered on 11/10/18 21:54; Admin Dose 100 MG; Start 11/02/18 at 09:00 Collagenase (Santyl) 1 applic DAILY TOP Last administered on 11/12/18 09:47; Admin Dose 1 APPLIC; Start 11/03/18 at 09:00 Midodrine (Proamatine) 5 mg TID@09,13,17 GTB Last administered on 11/12/18 17:29; Admin Dose 5 MG; Start 11/03/18 at 02:30 Potassium Chloride (Potassium Chloride Pwd/Soln) 20 meq BID GTB Last administered on 11/12/18 09:48; Admin Dose 20 MEQ; Start 11/04/18 at 09:00 Lorazepam (Ativan) 1 mg Q4H PRN IV AGITATION Last administered on 11/05/18 11:36; Admin Dose 1 MG; Start 11/05/18 at 11:30 Morphine Sulfate (morphine) 1 mg Q4H PRN IV SEVERE PAIN LEVEL 7-10 Last administered on 11/05/18 13:07; Admin Dose 1 MG; Start 11/05/18 at 13:30 Colistimethate Sodium (Colistin Inhal) 75 mg BID RESP THERAPY NEB Last administered on 11/12/18 10:21; Admin Dose 75 MG; Start 11/07/18 at 12:00 Metoprolol Tartrate (Lopressor) 12.5 mg BID GTB Last administered on 11/12/18 09:48; Admin Dose 12.5 MG; Start 11/08/18 at 21:00 Gentamicin Sulfate (Gentamicin Iv Per Pharmacy) GENTAMICIN PER PHARMACY NOTE XX ; Start 11/08/18 at 15:00 Piperacillin Sod/ Tazobactam Sod 100 ml @ 200 mls/hr Q8 IVPB Last administered on 11/12/18 15:00; Admin Dose 200 MLS/HR; Start 11/08/18 at 22:00 Gentamicin Sulfate 290 mg/ Sodium Chloride 107.25 ml @ 107.25 mls/hr Q24H IVPB ; Start 11/13/18 at 10:00 YURY YOON NP Nov 12, 2018 19:03
[2018-11-13] VITALS (21 sets, daily range): BP systolic 102–122; BP diastolic 55–80; PULSE 79–111; RESP 18–46
[2018-11-13] MEDS: PANTOPRAZOLE (EC) 40 MG TAB PO SCH (06:07)
[2018-11-13] MEDS: PIPER-TAZO 3.375 GM IV (PMX) 100 ML IVPB SCH ×3 (06:07→22:10)
[2018-11-13] MEDS: MIDODRINE 5 MG TAB GTB SCH ×3 (09:00→16:55)
[2018-11-13] MEDS: LEVETIRACETAM (100 MG/ML) 5ML CUP GTB SCH ×2 (09:18→22:10)
[2018-11-13] MEDS: ASCORBIC ACID 500 MG TAB GTB SCH (09:19)
[2018-11-13] MEDS: FERROUS SULFATE 60 MG/ML 5ML CUP PO SCH ×2 (09:19→22:11)
[2018-11-13] MEDS: DOCUSATE SODIUM 10 MG/ML (10ML CUP) GTB SCH ×2 (09:19→22:10)
[2018-11-13] MEDS: ASPIRIN 81 MG TAB PO SCH (09:19)
[2018-11-13] MEDS: POTASSIUM CHLORIDE 20 MEQ POWDER FOR ORAL SOLN GTB SCH ×2 (09:19→22:11)
[2018-11-13] MEDS: MULTIVITAMINS 30 ML CUP GTB SCH (09:19)
[2018-11-13] MEDS: COLLAGENASE 5 GM (UD JAR) TOP SCH (09:19)
[2018-11-13] MEDS: METOPROLOL 25 MG TAB GTB SCH ×2 (09:20→22:11)
[2018-11-13] MEDS: BALSAM PERU/CASTOR OIL 60 GM TUBE TOP SCH (09:21)
[2018-11-13] MEDS: NYSTATIN 15 GM OINT TOP SCH ×2 (09:21→22:14)
[2018-11-13] MEDS ORDERED: IOHEXOL 14.3 MG(I)/ML (ADULT) BTL PO ONE (09:30)
[2018-11-13] MEDS ORDERED: GENTAMICIN 290 MG in SOD CHLORIDE 0.9% 100 ML IVPB SCH (10:00)
[2018-11-13] MEDS: COLISTIMETHATE (25 MG/ML INHAL SYG) NEB SCH ×2 (10:04→19:43)
--- NOTE | 2018-11-13 10:07 | CONS ---
Assessment/Plan Assessment/Plan Assessment/Plan (Daily) Ventilator setting; AC of 14, tidal volume 400, PEEP of 5, 50% FiO2. Assessment and recommendations; 1. Patient with history of chronic severe enthesopathy and VDR F admitted with severe bilateral pneumonia. Patient initially improved but then had hypoxemic episode yesterday most likely related to some element of pulmonary edema due to fluid overload. 2. Stable seizure disorder. Administer Lasix 40 mg IV daily at least for 2 doses. Obtain follow-up chest x- ray in 48 hours. Continue current antimicrobials and other supportive measures. Consultation Date/Type/Reason Admit Date/Time October 30, 2018 at 08:15 Initial Consult Date Type of Consult Pulmonary Patient is a 47-year-old male who has been transferred from detention because of fever. Patient had been diagnosed a UTI with possibly pyonephritis. Curre taily on appropriate antimicrobial regimen. Because of advanced encephalopathy, patient remains totally noncommunicative. However, patient did not appear to be in any distress. Past medical history; 1. Advanced encephalopathy 2. VDRF 3. G-tube placement. 4. Seizure disorder. Medications; reviewed. Allergies; none. Social history; not available. Family history; not available. Occupational history; patient is on disability. Review of system; unable to be obtained. General exam; young male, on ventilator via tracheostomy, non communicative and unresponsive. Currently no distress. Requesting Provider: RICHARD GIRARD MD Date/Time of Note DATE: 11/13/18 TIME: 10:05 24 HR Interval Summary Free Text/Dictation Patient's condition is tenuous. On higher FiO2 since yesterday because of episode of hypoxemia. Exam; middle-aged male, on ventilator via tracheostomy, noncommunicative. Currently in no distress. Exam/Review of Systems Exam Vitals Vital Signs Date Temp Pulse Resp B/P (MAP) Pulse Ox O2 O2 Flow FiO2 Time Delivery Rate 11/13/18 86 22 100 50 09:25 11/13/18 99.1 107/58 Mechanical 07:49 (74) Ventilator Intake and Output 11/12/18 11/12/18 11/13/18 1515:00 23:00 07:00 IntakeIntake Total 107.25 ml 1460 ml 1360 ml OutputOutput Total 1000 ml 900 ml BalanceBalance 107.25 ml 460 ml 460 ml Exam H EENT exam; supple neck, no JVD. No lymphadenopathy. Midline trachea. No thyromegaly. Patient is edentulous. Tracheostomy in place. Insertion site is clean. Chest exam; diminished but clear breath sounds. S1-S2 audible, no murmurs. Regular rhythm. Abdomen exam; soft, G-tube in place. No organomegaly. Nondistended. Bowel sounds audible. Extremity exam; no peripheral edema. Patient has a flexion contractures. 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 Results Result Diagram: 11/12/18 0559 11/12/18 0559 Results 24hrs Laboratory Tests Test 11/12/18 11:19 Blood Gas Specimen Source Blood arterial Arterial Blood Date Drawn 11/12/2018 11:45:00 AM Arterial Blood pH (Temp corrected) 7.479 H Arterial Blood pCO2 (Temp correct) 30.4 L Arterial Blood pO2 (Temp corrected) 61.8 L Arterial Blood HCO3 22.1 Arterial Blood Base Excess -0.9 Arterial Blood Oxygen Saturation 90.7 L Zechariah Test ACCEPTAB Arterial Blood Gas Puncture Site Right Radial Arterial Blood Carboxyhemoglobin 0.3 Arterial Blood Methemoglobin 0.2 Blood Gas A-a O2 Differential 548.7 H Oxyhemoglobin Percent 90.2 L Blood Gas Temperature 37.0 Blood Gas Respiration Rate 14.0 Blood Gas Actual Respiration Rate 14 Blood Gas Modality VENT - AC FiO2 90.0 Blood Gas Tidal Volume 500.0 Blood Gas Low PEEP Setting 5.0 Blood Gas Notified Whom PVR Blood Gas Notified Time 11/05/2018 11:56:00 AM Medications Medication Current Medications Albuterol (Proventil 0.083% (Neb)) 2.5 mg Q3H RESP THERAPY PRN NEB WHEEZING AND SOB; Start 10/30/18 at 22:00 Albuterol (Proventil 0.083% (Neb)) 2.5 mg Q6H RESP THERAPY PRN NEB WHEEZING AND SOB; Start 10/30/18 at 22:00 Ascorbic Acid (Vitamin C) 500 mg DAILY GTB Last administered on 11/13/18at 09:19; Admin Dose 500 MG; Start 10/31/18 at 09:00 Metoclopramide HCl (Reglan) 10 mg Q6H PRN GTB NAUSEA AND/OR VOMITING Last administered on 11/10/18at 03:49; Admin Dose 10 MG; Start 10/30/18 at 22:00 Multivitamins (Multivitamin) 30 ml DAILY GTB Last administered on 11/13/18 09:19; Admin Dose 30 ML; Start 10/31/18 at 09:00 Pantoprazole (Protonix Tab) 40 mg DAILY@0600 PO Last administered on 11/13/18 06:07; Admin Dose 40 MG; Start 10/31/18 at 06:00 Ferrous Sulfate (Feosol Liquid Cup) 300 mg BID PO Last administered on 11/13/18:19; Admin Dose 300 MG; Start 10/30/18 at 22:00 Levetiracetam (Keppra Liquid) 1,500 mg BID GTB Last administered on 11/13/18 09:18; Admin Dose 1,500 MG; Start 10/30/18 at 22:30 Acetaminophen (Tylenol Liquid) 650 mg Q4H PRN GTB MILD PAIN(1-3)OR ELEVATED TEMP Last administered on 11/10/18 01:30; Admin Dose 650 MG; Start 10/31/18 at 00:00 Nystatin (Nystatin Oint) 1 applic BID TOP Last administered on 11/13/18 09:21; Admin Dose 1 APPLIC; Start 10/31/18 at 21:00 Aspirin (Aspirin) 81 mg DAILY PO Last administered on 11/13/18:; Admin Dose 81 MG; Start 11/01/18 at 09:00 Tramadol HCl (Ultram) 50 mg Q4 PRN PO MODERATE PAIN LEVEL 4-6 Last administered on 11/05/18 03:18; Admin Dose 50 MG; Start 11/01/18 at 21:00 Metoprolol Tartrate (Lopressor) 5 mg Q4 PRN IV ELEVATED HEART RATE; Start 11/01/18 at 21:00 Docusate Sodium (Colace Liquid Cup) 100 mg BID GTB Last administered on 11/13/18 09:19; Admin Dose 100 MG; Start 11/02/18 at 09:00 Collagenase (Santyl) 1 applic DAILY TOP Last administered on 11/13/18 09:19; Admin Dose 1 APPLIC; Start 11/03/18 at 09:00 Midodrine (Proamatine) 5 mg TID@,,17 GTB Last administered on 6/7/19at 17:29; Admin Dose 5 MG; Start 11/03/18 at 02:30 Potassium Chloride (Potassium Chloride Pwd/Soln) 20 meq BID GTB Last administered on 11/13/18 09:19; Admin Dose 20 MEQ; Start 11/04/18 at 09:00 Lorazepam (Ativan) 1 mg Q4H PRN IV AGITATION Last administered on 11/05/18at 11:36; Admin Dose 1 MG; Start 11/05/18 at 11:30 Morphine Sulfate (morphine) 1 mg Q4H PRN IV SEVERE PAIN LEVEL 7-10 Last administered on 11/05/18 13:07; Admin Dose 1 MG; Start 11/05/18 at 13:30 Colistimethate Sodium (Colistin Inhal) 75 mg BID RESP THERAPY NEB Last administered on 11/13/18at 10:04; Admin Dose 75 MG; Start 11/07/18 at 12:00 Metoprolol Tartrate (Lopressor) 12.5 mg BID GTB Last administered on 11/13/18 09:20; Admin Dose 12.5 MG; Start 11/08/18 at 21:00 Gentamicin Sulfate (Gentamicin Iv Per Pharmacy) GENTAMICIN PER PHARMACY NOTE XX ; Start 11/08/18 at 15:00 Piperacillin Sod/ Tazobactam Sod 100 ml @ 200 mls/hr Q8 IVPB Last administered on 11/13/18at 06:07; Admin Dose 200 MLS/HR; Start 11/08/18 at 22:00 Gentamicin Sulfate 290 mg/ Sodium Chloride 107.25 ml @ 107.25 mls/hr Q24H IVPB ; Start 11/13/18 at 10:00 MI JEFFERS 8, 2019 10:07
--- NOTE | 2018-11-13 11:05 | PN ---
Date/Time of Note Date/Time of Note DATE: 11/13/18 TIME: 11:05 Assessment/Plan VTE Prophylaxis Risk score (from [facility])>0 risk: 5 SCD applied (from [facility]): No SCD contraindicated: other Pharmacological prophylaxis: other Pharm contraindication: other Lines/Catheters IV Catheter Type ([facility]): Peripheral IV Urinary Cath still in place: Yes Reason Cath still needed: urinary retention Assessment/Plan Assessment/Plan -Urinary retention. Dr. Regan is following in urology consultation. Continue Charles catheter. -Hypernatremia, resolved. continue free water flushes where G-tube. -Sepsis with gram-positive cocci bacteremia MDR Proteus UTI. Continue antibiotics per ID. Dr. Matias is following in infection disease consultation. -Non-ST elevation myocardial infarction, continue aspirin, beta-samantha. Dr. Flor is following in cardiology consultation. -Pancreatitis. Dr. Walton is following in gastroenterology consultation. -Ventilator dependent respiratory failure with tracheostomy. -Anoxic encephalopathy status post cardiac arrest in 2009 -Ventilator dependent respiratory failure -Dysphagia with PEG -Seizure disorder, continue Keppra. - Anemia- monitor CBC -Schizophrenia -Multiple wounds, continue current wound care, offloading. Further recommendations based on clinical course. Plan of care discussed with Dr. Courtney. Result Diagram: 11/12/1859 11/12/18 0559 Results 24hrs Laboratory Tests Test 11/12/18 11:19 Blood Gas Specimen Source Blood arterial Arterial Blood Date Drawn 11/12/2018 11:45:00 AM Arterial Blood pH (Temp corrected) 7.479 H Arterial Blood pCO2 (Temp correct) 30.4 L Arterial Blood pO2 (Temp corrected) 61.8 L Arterial Blood HCO3 22.1 Arterial Blood Base Excess -0.9 Arterial Blood Oxygen Saturation 90.7 L Zechariah Test ACCEPTAB Arterial Blood Gas Puncture Site Right Radial Arterial Blood Carboxyhemoglobin 0.3 Arterial Blood Methemoglobin 0.2 Blood Gas A-a O2 Differential 548.7 H Oxyhemoglobin Percent 90.2 L Blood Gas Temperature 37.0 Blood Gas Respiration Rate 14.0 Blood Gas Actual Respiration Rate 14 Blood Gas Modality VENT - AC FiO2 90.0 Blood Gas Tidal Volume 500.0 Blood Gas Low PEEP Setting 5.0 Blood Gas Notified Whom PVR Blood Gas Notified Time 11/05/2018 11:56:00 AM Subjective 24 Hr Interval Summary Free Text/Dictation nad vss seems comfortable on trach to vent no events reported last night dw saff Subjective hx not possible: pt non-verbal Constitutional: requiring O2 Exam/Review of Systems Exam Vitals Vital Signs Date Temp Pulse Resp B/P (MAP) Pulse Ox O2 O2 Flow FiO2 Time Delivery Rate 11/13/18 86 22 100 50 09:25 11/13/18 99.1 107/58 Mechanical 07:49 (74) Ventilator Intake and Output 11/12/18 11/12/18 11/13/18 1515:00 23:00 07:00 IntakeIntake Total 107.25 ml 1460 ml 1360 ml OutputOutput Total 1000 ml 900 ml BalanceBalance 107.25 ml 460 ml 460 ml Constitutional: non-verbal Psych: nl mood/affect Eyes: nl lids, nl sclera ENMT: nl external ears & nose Neck: other (trach inatct) Cardiovascular: nl pulses, other (s1s2) Gastrointestinal: soft, other (gt intact) Musculoskeletal: muscle weakness, range of motion Extremities: normal pulses Neurological: unresponsive Results Results 24hrs Laboratory Tests Test 11/12/18 11:19 Blood Gas Specimen Source Blood arterial Arterial Blood Date Drawn 11/12/2018 11:45:00 AM Arterial Blood pH (Temp corrected) 7.479 H Arterial Blood pCO2 (Temp correct) 30.4 L Arterial Blood pO2 (Temp corrected) 61.8 L Arterial Blood HCO3 22.1 Arterial Blood Base Excess -0.9 Arterial Blood Oxygen Saturation 90.7 L Zechariah Test ACCEPTAB Arterial Blood Gas Puncture Site Right Radial Arterial Blood Carboxyhemoglobin 0.3 Arterial Blood Methemoglobin 0.2 Blood Gas A-a O2 Differential 548.7 H Oxyhemoglobin Percent 90.2 L Blood Gas Temperature 37.0 Blood Gas Respiration Rate 14.0 Blood Gas Actual Respiration Rate 14 Blood Gas Modality VENT - AC FiO2 90.0 Blood Gas Tidal Volume 500.0 Blood Gas Low PEEP Setting 5.0 Blood Gas Notified Whom PVR Blood Gas Notified Time 11/05/2018 11:56:00 AM Medications Medication Current Medications Albuterol (Proventil 0.083% (Neb)) 2.5 mg Q3H RESP THERAPY PRN NEB WHEEZING AND SOB; Start 10/30/18 at 22:00 Albuterol (Proventil 0.083% (Neb)) 2.5 mg Q6H RESP THERAPY PRN NEB WHEEZING AND SOB; Start 10/30/18 at 22:00 Ascorbic Acid (Vitamin C) 500 mg DAILY GTB Last administered on 11/13/18 09:19; Admin Dose 500 MG; Start 10/31/18 at 09:00 Metoclopramide HCl (Reglan) 10 mg Q6H PRN GTB NAUSEA AND/OR VOMITING Last administered on 11/10/18 03:49; Admin Dose 10 MG; Start 10/30/18 at 22:00 Multivitamins (Multivitamin) 30 ml DAILY GTB Last administered on 11/13/18 09:19; Admin Dose 30 ML; Start 10/31/18 at 09:00 Pantoprazole (Protonix Tab) 40 mg DAILY@0600 PO Last administered on 11/13/18 06:07; Admin Dose 40 MG; Start 10/31/18 at 06:00 Ferrous Sulfate (Feosol Liquid Cup) 300 mg BID PO Last administered on 11/13/18 09:19; Admin Dose 300 MG; Start 10/30/18 at 22:00 Levetiracetam (Keppra Liquid) 1,500 mg BID GTB Last administered on 11/13/18 09:18; Admin Dose 1,500 MG; Start 10/30/18 at 22:30 Acetaminophen (Tylenol Liquid) 650 mg Q4H PRN GTB MILD PAIN(1-3)OR ELEVATED TEMP Last administered on 11/10/18 01:30; Admin Dose 650 MG; Start 10/31/18 at 00:00 Nystatin (Nystatin Oint) 1 applic BID TOP Last administered on 11/13/18 09:21; Admin Dose 1 APPLIC; Start 10/31/18 at 21:00 Aspirin (Aspirin) 81 mg DAILY PO Last administered on 11/13/18 09:19; Admin Dose 81 MG; Start 11/01/18 at 09:00 Tramadol HCl (Ultram) 50 mg Q4 PRN PO MODERATE PAIN LEVEL 4-6 Last administered on 11/05/18 03:18; Admin Dose 50 MG; Start 11/01/18 at 21:00 Metoprolol Tartrate (Lopressor) 5 mg Q4 PRN IV ELEVATED HEART RATE; Start 11/01/18 at 21:00 Docusate Sodium (Colace Liquid Cup) 100 mg BID GTB Last administered on 11/13/18 09:19; Admin Dose 100 MG; Start 11/02/18 at 09:00 Collagenase (Santyl) 1 applic DAILY TOP Last administered on 11/13/18 09:19; Admin Dose 1 APPLIC; Start 11/03/18 at 09:00 Midodrine (Proamatine) 5 mg TID@,13,17 GTB Last administered on 11/12/18 17:29; Admin Dose 5 MG; Start 11/03/18 at 02:30 Potassium Chloride (Potassium Chloride Pwd/Soln) 20 meq BID GTB Last administered on 11/13/18 09:19; Admin Dose 20 MEQ; Start 11/04/18 at 09:00 Lorazepam (Ativan) 1 mg Q4H PRN IV AGITATION Last administered on 11/05/18 11:36; Admin Dose 1 MG; Start 11/05/18 at 11:30 Morphine Sulfate (morphine) 1 mg Q4H PRN IV SEVERE PAIN LEVEL 7-10 Last administered on 11/05/18 13:07; Admin Dose 1 MG; Start 11/05/18 at 13:30 Colistimethate Sodium (Colistin Inhal) 75 mg BID RESP THERAPY NEB Last administered on 11/13/18 10:04; Admin Dose 75 MG; Start 11/07/18 at 12:00 Metoprolol Tartrate (Lopressor) 12.5 mg BID GTB Last administered on 11/13/18 09:20; Admin Dose 12.5 MG; Start 11/08/18 at 21:00 Gentamicin Sulfate (Gentamicin Iv Per Pharmacy) GENTAMICIN PER PHARMACY NOTE XX ; Start 11/08/18 at 15:00 Piperacillin Sod/ Tazobactam Sod 100 ml @ 200 mls/hr Q8 IVPB Last administered on 11/13/18 06:07; Admin Dose 200 MLS/HR; Start 11/08/18 at 22:00 Gentamicin Sulfate 290 mg/ Sodium Chloride 107.25 ml @ 107.25 mls/hr Q24H IVPB ; Start 11/13/18 at 10:00 Furosemide (Lasix) 40 mg DAILY IV ; Start 11/13/18 at 10:30 SHELLEY HERNANDEZ Nov 13, 2018 11:05
[2018-11-13] MEDS ORDERED: LIDOCAINE 1% (MPF) 5 ML VIAL SC ONE (12:00)
--- NOTE | 2018-11-13 13:01 | CONS ---
Assessment/Plan Assessment/Plan Hospital Course (Demo Recall) ID PROGRESS NOTE CURRENT ABX: Day #=> ZOSYN + GENT + COLISTIN INH s/p Vanco IV + Cefepime 24h INTERVAL SUMMARY * Chronic vegetative - noncommunicative * Patient in process of new PICC vs MIDLINE bedside placement. IMAGING * 11/01/17 CXR: New patchy consolidation at the right lung base concerning for pneumonia/aspiration pneumonia. * 10/31/18 RENAL US 1. Nonobstructing right intrarenal calculi ranging between 7-8 mm in size. No associated hydronephrosis. 2. Normal left kidney and collecting system . Note on prior CT scans the patient does have left int rarenal calculi are as well which are not seen on the current study. MICRO 10/31/18 (-)MRSA 10/30/18 (-)INFLUENZA A/B 10/30/18 BCx (-) 10/30/18 URINE CX (+)GNR URINE CULTURE Final Organism 1 PROTEUS MIRABILIS COLONY COUNT >100,000 CFU/ml P. MIRAB M.I.C. RX --------- --- AMPICILLIN >=32 R CEFOTAXIME S CIPROFLOXACIN >=4 R GENTAMICIN <=1 S LEVOFLOXACIN >=8 R NITROFURANTOIN 128 R TOBRAMYCIN <=1 S TRIMETHOPRIM/SULFAMETHOXAZOLE >=320 R Constitutional: well developed, non-verbal, obese, other (Persitent vegetative state - unresponsive ) Psych: other (Calm - non-responsive ) Head: normocephalic, atraumatic Eyes: nl conjunctiva, nl sclera ENMT: nl external ears & nose, nl lips & teeth (Lower lip with deformity at bilateral corners ), other (Trach secure to Vent) Neck: supple Respiratory: crackles/rales, diminished breath sounds, other (Ventilator dependent ); No normal air movement, No wheezing Cardiovascular: regular rate and rhythm, other (Sinus tachycradia @ 120 BPM) Gastrointestinal: soft, other (PEG ) Genitourinary - Male: nl scrotum (Scrotal erythema - excoriation - moisture associated ), other (FC); No nl penis (Penile head erythema = excoriation vs balantitis ? ), No discharge Musculoskeletal: muscle weakness, other (Flexion contraction BUEXT w/bilateral ); No nl extremities to inspection, No nl gait and stance, No muscle tone, No range of motion Extremities: other (Bilateral feet toe deformities and pressure ulcers see wound photos ) * Right upper extremity erythema + edema ? Midline thrombus ? Contact dermatitis allergy to tape vs. cellulitis? Neurological: unresponsive; No C[employer]OR II-XII intact, No nl mental status, No nl speech, No nl strength Skin: diaphoresis Lymph: nl lymph nodes ID ASSESSMENT 47 yo M w/chronic vegetative state admit with: 1. Acute sepsis w/transient shock as evidenced by the following: * Fevers > 105.+ on arrival to ED == IMPROVING * SVT @ 156 BPM == Currently in Sinus rhythm HR 120 * Hypotension requiring pressors = RESOLVED * WBC 21.5 w/left shift = IMPROVING * Lactic acid 1.7 * (+)UA w/pyuria, many bacteria, moderate CA+ crystals * (+)troponin leak 0.16 * 10/30/18 BCX (+) 2/2 Bottles GPC * 10/30/18 Urine Cx (+) GNR Preliminary 2. GPC Bacteremia 2/2 bottles from ED -- Suspect PICC line infection 3. GNR complicated UTI /pyelonephritis * 10/30/18 URINE CX (+)GNR URINE CULTURE Final Organism 1 PROTEUS MIRABILIS COLONY COUNT >100,000 CFU/ml 4. CA+ Crystals found in UA=> (+) nephrolithiasis = non-obstructive * 10/31/18 RENAL US 1. Nonobstructing right intrarenal calculi ranging between 7-8 mm in size. No associated hydronephrosis. 2. Normal left kidney and collecting system . Note on prior CT scans the patient does have left intrarenal calculi are as well which are not seen on the current study. 5. Right upper extremity erythema + edema ? Midline thrombus ? Contact dermatitis allergy to tape vs. cellulitis? 6. Chronic VDRF -> s/p Trach @ [facility] NOVEMBER 2009 * 10/30/18 CXR: IMPRESSION: 1. No congestive heart failure. 2. Minimal patchy density at the bases likely all due to atelectasis. No definite infiltrates however recommend clinical correlation 7. Risk factors for ASP PNA = GERD, Hiatal Hernia, hx of Esophagitis (reflux), peg 8. Dysphagia -> s/p PEG @ [facility] November 2009 9. 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 Seizure disorder on Keppra = Avoid Carbapenems if possible 11. Bedbound state w/BUEXT flexion contractures 12. Penile, scrotal, liss-anal moisture associated dermatitis w/erythema 13. Bilateral feet decubs = minor 14. Elevated Lipase of uncertain significance (-)MRSA Nares INVASIVES: Trach, Peg, FC, LUEXT MIDLINE ABX ALLERGIES: KNDA CURRENT ABX: => ZOSYN + GENT + COLISTIN INH s/p Vanco IV + Cefepime ID RECOMMENDATIONS 1. Continue CURRENT ABX over the weekend Consultation Date/Type/Reason Admit Date/Time October 30, 2018 at 08:15 Initial Consult Date Type of Consult INFECTIOUS DISEASES * Thank you for the privilege of ID consultation to "Charisma Matias"->Patient is known to Dr. Matias from multiple prior admissions to [facility]. Requesting Provider: RICHARD GIRARD MD Date/Time of Note DATE: 11/13/18 TIME: 13:01 Exam/Review of Systems Exam Vitals Vital Signs Date Temp Pulse Resp B/P (MAP) Pulse Ox O2 O2 Flow FiO2 Time Delivery Rate 11/13/18 81 27 96 50 11:40 11/13/18 99.2 102/55 Mechanical 11:21 (71) Ventilator Intake and Output 11/12/18 11/12/18 11/13/18 1515:00 23:00 07:00 IntakeIntake Total 107.25 ml 1460 ml 1360 ml OutputOutput Total 1000 ml 900 ml BalanceBalance 107.25 ml 460 ml 460 ml Results Result Diagram: 11/12/18 0559 11/12/18 0559 Medications Medication Current Medications Albuterol (Proventil 0.083% (Neb)) 2.5 mg Q3H RESP THERAPY PRN NEB WHEEZING AND SOB; Start 10/30/18 at 22:00 Albuterol (Proventil 0.083% (Neb)) 2.5 mg Q6H RESP THERAPY PRN NEB WHEEZING AND SOB; Start 10/30/18 at 22:00 Ascorbic Acid (Vitamin C) 500 mg DAILY GTB Last administered on 11/13/18 09:19; Admin Dose 500 MG; Start 10/31/18 at 09:00 Metoclopramide HCl (Reglan) 10 mg Q6H PRN GTB NAUSEA AND/OR VOMITING Last administered on 11/10/18 03:49; Admin Dose 10 MG; Start 10/30/18 at 22:00 Multivitamins (Multivitamin) 30 ml DAILY GTB Last administered on 11/13/18 09:19; Admin Dose 30 ML; Start 10/31/18 at 09:00 Pantoprazole (Protonix Tab) 40 mg DAILY@0600 PO Last administered on 11/13/18 0 6:07; Admin Dose 40 MG; Start 10/31/18 at 06:00 Ferrous Sulfate (Feosol Liquid Cup) 300 mg BID PO Last administered on 11/13/18 09:19; Admin Dose 300 MG; Start 10/30/18 at 22:00 Levetiracetam (Keppra Liquid) 1,500 mg BID GTB Last administered on 11/13/18 09:18; Admin Dose 1,500 MG; Start 10/30/18 at 22:30 Acetaminophen (Tylenol Liquid) 650 mg Q4H PRN GTB MILD PAIN(1-3)OR ELEVATED TEMP Last administered on 11/10/18 01:30; Admin Dose 650 MG; Start 10/31/18 at 00:00 Nystatin (Nystatin Oint) 1 applic BID TOP Last administered on 11/13/18 09:21; Admin Dose 1 APPLIC; Start 10/31/18 at 21:00 Aspirin (Aspirin) 81 mg DAILY PO Last administered on 11/13/18 09:19; Admin Dose 81 MG; Start 11/01/18 at 09:00 Tramadol HCl (Ultram) 50 mg Q4 PRN PO MODERATE PAIN LEVEL 4-6 Last administered on 11/05/18 03:18; Admin Dose 50 MG; Start 11/01/18 at 21:00 Metoprolol Tartrate (Lopressor) 5 mg Q4 PRN IV ELEVATED HEART RATE; Start 11/01/18 at 21:00 Docusate Sodium (Colace Liquid Cup) 100 mg BID GTB Last administered on 11/13/18 09:19; Admin Dose 100 MG; Start 11/02/18 at 09:00 Collagenase (Santyl) 1 applic DAILY TOP Last administered on 11/13/18 09:19; Admin Dose 1 APPLIC; Start 11/03/18 at 09:00 Midodrine (Proamatine) 5 mg TID@,13,17 GTB Last administered on 11/12/18 17:29; Admin Dose 5 MG; Start 11/03/18 at 02:30 Potassium Chloride (Potassium Chloride Pwd/Soln) 20 meq BID GTB Last admini stered on 11/13/18 09:19; Admin Dose 20 MEQ; Start 11/04/18 at 09:00 Lorazepam (Ativan) 1 mg Q4H PRN IV AGITATION Last administered on 11/05/18 11:36; Admin Dose 1 MG; Start 11/05/18 at 11:30 Morphine Sulfate (morphine) 1 mg Q4H PRN IV SEVERE PAIN LEVEL 7-10 Last administered on 11/05/18 13:07; Admin Dose 1 MG; Start 11/05/18 at 13:30 Colistimethate Sodium (Colistin Inhal) 75 mg BID RESP THERAPY NEB Last administered on 11/13/18 10:04; Admin Dose 75 MG; Start 11/07/18 at 12:00 Metoprolol Tartrate (Lopressor) 12.5 mg BID GTB Last administered on 11/13/18 09:20; Admin Dose 12.5 MG; Start 11/08/18 at 21:00 Gentamicin Sulfate (Gentamicin Iv Per Pharmacy) GENTAMICIN PER PHARMACY NOTE XX ; Start 11/08/18 at 15:00 Piperacillin Sod/ Tazobactam Sod 100 ml @ 200 mls/hr Q8 IVPB Last administered on 11/13/18 06:07; Admin Dose 200 MLS/HR; Start 11/08/18 at 22:00 Gentamicin Sulfate 290 mg/ Sodium Chloride 107.25 ml @ 107.25 mls/hr Q24H IVPB ; Start 11/13/18 at 10:00 Furosemide (Lasix) 40 mg DAILY IV ; Start 11/13/18 at 10:30 GUNJAN CORRALES NP Nov 13, 2018 13:01
[2018-11-13] MEDS: FUROSEMIDE 40 MG INJ IV SCH (13:37)
--- NOTE | 2018-11-13 13:39 | CONS ---
Assessment/Plan Assessment/Plan Hospital Course (Demo Recall) IMPRESSION: 1. Non-ST elevation myocardial infarction with up trending cardiac enzymes likely demand infarct in the setting of significant tachycardia and fevers, sepsis.-downtrended significantly 2. Abnormal electrocardiogram with nonspecific ST-T abnormalities. 3. Tachycardia, likely due to the patient's underlying sepsis-improved overall 4. Sepsis with the Gram-positive cocci group in clusters growing in blood and Gram-negative rods growing in urine. 5. Urinary tract infection. 6. Chronic respiratory failure, status post tracheostomy. 7. s/p G-tube. 8. Chronic anoxic encephalopathy. 9. Leukocytosis significantly improved. 10. Anemia-worsening 11. Hypernatremia-improved 12. Elevated Lipase-? pancreatitis Recc: -Tele -Contineu asa as tolerated given anemia requiring transfusion -Contineu low dose BB as tolerated only at very low dose -Continue daily lasix and follow volume status clsoely -trend lipase/follow exam -contnue abx's and f/u cx data Consultation Date/Type/Reason Admit Date/Time October 30, 2018 at 08:15 Initial Consult Date 10/31/18 Type of Consult Cardiology Reason for Consultation Nstemi Requesting Provider: RICHARD GIRARD MD Date/Time of Note DATE: 11/13/18 TIME: 13:36 Exam/Review of Systems Vital Signs Vitals Vital Signs Date Temp Pulse Resp B/P (MAP) Pulse Ox O2 O2 Flow FiO2 Time Delivery Rate 11/13/18 81 27 96 50 11:40 11/13/18 99.2 102/55 Mechanical 11:21 (71) Ventilator Intake and Output 11/12/18 11/12/18 11/13/18 1515:00 23:00 07:00 IntakeIntake Total 107.25 ml 1460 ml 1360 ml OutputOutput Total 1000 ml 900 ml BalanceBalance 107.25 ml 460 ml 460 ml Exam Exam Review of Systems: CONSTITUTIONAL: No fevers, chills. PULMONARY: No sob CARDIOVASCULAR: No chest pain/palpitations GASTROINTESTINAL: No nausea/vomiting. GENITOURINARY: No hematuria/dysuria. MUSCULOSKELETAL: No myagias/arthalgias. PSYCHIATRIC: The patient denies depression. NEUROLOGIC: No weakness Constitutional: other (encaphjalopathic) Psych: no complaints Head: normocephalic ENMT: mucosa pink and moist Neck: supple, jvd (9 cm water) Respiratory: diminished breath sounds, other (trached) Cardiovascular: regular rate and rhythm Gastrointestinal: soft, non-tender Musculoskeletal: muscle weakness (generalized) Extremities: edema (none) Neurological: unresponsive, other (postured) Labs Result Diagram: 11/12/1855811/12/1859 Medications Medications Current Medications Albuterol (Proventil 0.083% (Neb)) 2.5 mg Q3H RESP THERAPY PRN NEB WHEEZING AND SOB; Start 10/30/18 at 22:00 Albuterol (Proventil 0.083% (Neb)) 2.5 mg Q6H RESP THERAPY PRN NEB WHEEZING AND SOB; Start 10/30/18 at 22:00 Ascorbic Acid (Vitamin C) 500 mg DAILY GTB Last administered on 11/13/18 09:19; Admin Dose 500 MG; Start 10/31/18 at 09:00 Metoclopramide HCl (Reglan) 10 mg Q6H PRN GTB NAUSEA AND/OR VOMITING Last administered on 11/10/18 03:49; Admin Dose 10 MG; Start 10/30/18 at 22:00 Multivitamins (Multivitamin) 30 ml DAILY GTB Last administered on 11/13/18 09:19; Admin Dose 30 ML; Start 10/31/18 at 09:00 Pantoprazole (Protonix Tab) 40 mg DAILY@0600 PO Last administered on 11/13/18 06:07; Admin Dose 40 MG; Start 10/31/18 at 06:00 Ferrous Sulfate (Feosol Liquid Cup) 300 mg BID PO Last administered on 11/13/18 09:19; Admin Dose 300 MG; Start 10/30/18 at 22:00 Levetiracetam (Keppra Liquid) 1,500 mg BID GTB Last administered on 11/13/18 09:18; Admin Dose 1,500 MG; Start 10/30/18 at 22:30 Acetaminophen (Tylenol Liquid) 650 mg Q4H PRN GTB MILD PAIN(1-3)OR ELEVATED TEMP Last administered on 11/10/18 01:30; Admin Dose 650 MG; Start 10/31/18 at 00:00 Nystatin (Nystatin Oint) 1 applic BID TOP Last administered on 11/13/18 09:21; Admin Dose 1 APPLIC; Start 10/31/18 at 21:00 Aspirin (Aspirin) 81 mg DAILY PO Last administered on 11/13/18 09:19; Admin Dose 81 MG; Start 11/01/18 at 09:00 Tramadol HCl (Ultram) 50 mg Q4 PRN PO MODERATE PAIN LEVEL 4-6 Last administered on 11/05/18 03:18; Admin Dose 50 MG; Start 11/01/18 at 21:00 Metoprolol Tartrate (Lopressor) 5 mg Q4 PRN IV ELEVATED HEART RATE; Start 11/01/18 at 21:00 Docusate Sodium (Colace Liquid Cup) 100 mg BID GTB Last administered on 11/13/18 09:19; Admin Dose 100 MG; Start 11/02/18 at 09:00 Collagenase (Santyl) 1 applic DAILY TOP Last administered on 11/13/18 09:19; Admin Dose 1 APPLIC; Start 11/03/18 at 09:00 Midodrine (Proamatine) 5 mg TID@,,17 GTB Last administered on 11/12/18 17:29; Admin Dose 5 MG; Start 11/03/18 at 02:30 Potassium Chloride (Potassium Chloride Pwd/Soln) 20 meq BID GTB Last administered on 11/13/18 09:19; Admin Dose 20 MEQ; Start 11/04/18 at 09:00 Lorazepam (Ativan) 1 mg Q4H PRN IV AGITATION Last administered on 11/05/18 11:36; Admin Dose 1 MG; Start 11/05/18 at 11:30 Morphine Sulfate (morphine) 1 mg Q4H PRN IV SEVERE PAIN LEVEL 7-10 Last administered on 11/05/18 13:07; Admin Dose 1 MG; Start 11/05/18 at 13:30 Colistimethate Sodium (Colistin Inhal) 75 mg BID RESP THERAPY NEB Last administered on 11/13/18 10:04; Admin Dose 75 MG; Start 11/07/18 at 12:00 Metoprolol Tartrate (Lopressor) 12.5 mg BID GTB Last administered on 11/13/18 09:20; Admin Dose 12.5 MG; Start 11/08/18 at 21:00 Gentamicin Sulfate (Gentamicin Iv Per Pharmacy) GENTAMICIN PER PHARMACY NOTE XX ; Start 11/08/18 at 15:00 Piperacillin Sod/ Tazobactam Sod 100 ml @ 200 mls/hr Q8 IVPB Last administered on 11/13/18at 06:07; Admin Dose 200 MLS/HR; Start 11/08/18 at 22:00 Gentamicin Sulfate 290 mg/ Sodium Chloride 107.25 ml @ 107.25 mls/hr Q24H IVPB ; Start 11/13/18 at 10:00 Furosemide (Lasix) 40 mg DAILY IV ; Start 11/13/18 at 10:30 ELOINA MISHRA Nov 13, 2018 13:39
[2018-11-14] VITALS (24 sets, daily range): BP systolic 94–123; BP diastolic 65–71; PULSE 59–107; RESP 18–33
[2018-11-14] MEDS: PIPER-TAZO 3.375 GM IV (PMX) 100 ML IVPB SCH ×3 (05:57→21:35)
[2018-11-14] MEDS: LANSOPRAZOLE 30 MG CAP GTB SCH (05:57)
--- NOTE | 2018-11-14 07:07 | PN ---
Date/Time of Note Date/Time of Note DATE: 11/14/18 TIME: 07:06 Assessment/Plan VTE Prophylaxis Risk score (from [facility] [place])>0 risk: 7 SCD applied (from [facility] [place]): Yes SCD contraindicated: other Pharmacological prophylaxis: other Pharm contraindication: other Lines/Catheters IV Catheter Type (from [facility]): Peripheral IV Urinary Cath still in place: Yes Reason Cath still needed: urinary retention Assessment/Plan Assessment/Plan -Urinary retention. Dr. Regan is following in urology consultation. Continue Charles catheter. -Hypernatremia, resolved. continue free water flushes where G-tube. -Sepsis with gram-positive cocci bacteremia MDR Proteus UTI. Continue antibiotics per ID. Dr. Matias is following in infection disease consultation. -Non-ST elevation myocardial infarction, continue aspirin, beta-samantha. Dr. Flor is following in cardiology consultation. -Pancreatitis. Dr. Walton is following in gastroenterology consultation. -Ventilator dependent respiratory failure with tracheostomy. -Anoxic encephalopathy status post cardiac arrest in 2009 -Ventilator dependent respiratory failure -Dysphagia with PEG -Seizure disorder, continue Keppra. - Anemia- monitor CBC -Schizophrenia -Multiple wounds, continue current wound care, offloading. Further recommendations based on clinical course. Plan of care discussed with Dr. Courtney. Result Diagram: 11/12/18 0559 11/12/18 0559 Exam/Review of Systems Exam Vitals Vital Signs Date Temp Pulse Resp B/P (MAP) Pulse Ox O2 O2 Flow FiO2 Time Delivery Rate 11/14/18 60 05:44 11/14/18 96 33 92 05:26 11/14/18 98.0 94/65 (75) 05:02 11/13/18 Mechanical 11:21 Ventilator Intake and Output 11/13/18 11/13/18 11/14/18 1515:00 23:00 07:00 IntakeIntake Total 2025 ml 1100 ml OutputOutput Total 2100 ml 1500 ml BalanceBalance -75 ml -400 ml Constitutional: alert, non-verbal, frail Psych: nl mood/affect Eyes: nl lids, nl sclera ENMT: nl external ears & nose Neck: supple, other (trach intact) Respiratory: clear to auscultation Cardiovascular: nl pulses, other (s1s2) Gastrointestinal: soft, other (gt intact) Musculoskeletal: muscle weakness Extremities: normal pulses Neurological: unresponsive Skin: other Medications Medication Current Medications Albuterol (Proventil 0.083% (Neb)) 2.5 mg Q3H RESP THERAPY PRN NEB WHEEZING AND SOB; Start 10/30/18 at 22:00 Albuterol (Proventil 0.083% (Neb)) 2.5 mg Q6H RESP THERAPY PRN NEB WHEEZING AND SOB; Start 10/30/18 at 22:00 Ascorbic Acid (Vitamin C) 500 mg DAILY GTB Last administered on 11/13/18 09:19; Admin Dose 500 MG; Start 10/31/18 at 09:00 Metoclopramide HCl (Reglan) 10 mg Q6H PRN GTB NAUSEA AND/OR VOMITING Last administered on 11/10/18 03:49; Admin Dose 10 MG; Start 10/30/18 at 22:00 Multivitamins (Multivitamin) 30 ml DAILY GTB Last administered on 11/13/18 09:19; Admin Dose 30 ML; Start 10/31/18 at 09:00 Ferrous Sulfate (Feosol Liquid Cup) 300 mg BID PO Last administered on 11/13/18 22:11; Admin Dose 300 MG; Start 10/30/18 at 22:00 Levetiracetam (Keppra Liquid) 1,500 mg BID GTB Last administered on 11/13/18 22:10; Admin Dose 1,500 MG; Start 10/30/18 at 22:30 Acetaminophen (Tylenol Liquid) 650 mg Q4H PRN GTB MILD PAIN(1-3)OR ELEVATED TEMP Last administered on 11/10/18 01:30; Admin Dose 650 MG; Start 10/31/18 at 00:00 Nystatin (Nystatin Oint) 1 applic BID TOP Last administered on 11/13/18 22:14; Admin Dose 1 APPLIC; Start 10/31/18 at 21:00 Aspirin (Aspirin) 81 mg DAILY PO Last administered on 11/13/18 09:19; Admin Dose 81 MG; Start 11/01/18 at 09:00 Tramadol HCl (Ultram) 50 mg Q4 PRN PO MODERATE PAIN LEVEL 4-6 Last administered on 11/05/18 03:18; Admin Dose 50 MG; Start 11/01/18 at 21:00 Metoprolol Tartrate (Lopressor) 5 mg Q4 PRN IV ELEVATED HEART RATE; Start 11/01/18 at 21:00 Docusate Sodium (Colace Liquid Cup) 100 mg BID GTB Last administered on 11/13/18 22:10; Admin Dose 100 MG; Start 11/02/18 at 09:00 Collagenase (Santyl) 1 applic DAILY TOP Last administered on 11/13/18 09:19; Admin Dose 1 APPLIC; Start 11/03/18 at 09:00 Midodrine (Proamatine) 5 mg TID@,13,17 GTB Last administered on 11/13/18 13:37; Admin Dose 5 MG; Start 11/03/18 at 02:30 Potassium Chloride (Potassium Chloride Pwd/Soln) 20 meq BID GTB Last admi nistered on 11/13/18 22:11; Admin Dose 20 MEQ; Start 11/04/18 at 09:00 Lorazepam (Ativan) 1 mg Q4H PRN IV AGITATION Last administered on 11/05/18 11:36; Admin Dose 1 MG; Start 11/05/18 at 11:30 Morphine Sulfate (morphine) 1 mg Q4H PRN IV SEVERE PAIN LEVEL 7-10 Last administered on 11/05/18 13:07; Admin Dose 1 MG; Start 11/05/18 at 13:30 Colistimethate Sodium (Colistin Inhal) 75 mg BID RESP THERAPY NEB Last administered on 11/13/18 19:43; Admin Dose 75 MG; Start 11/07/18 at 12:00 Metoprolol Tartrate (Lopressor) 12.5 mg BID GTB Last administered on 11/13/18 22:11; Admin Dose 12.5 MG; Start 11/08/18 at 21:00 Gentamicin Sulfate (Gentamicin Iv Per Pharmacy) GENTAMICIN PER PHARMACY NOTE XX ; Start 11/08/18 at 15:00 Piperacillin Sod/ Tazobactam Sod 100 ml @ 200 mls/hr Q8 IVPB Last administered on 11/14/18 05:57; Admin Dose 200 MLS/HR; Start 11/08/18 at 22:00 Furosemide (Lasix) 40 mg DAILY IV Last administered on 11/13/18 13:37; Admin Dose 40 MG; Start 11/13/18 at 10:30 Gentamicin Sulfate 290 mg/ Sodium Chloride 107.25 ml @ 107.25 mls/hr Q24H IVPB ; Start 11/14/18 at 13:00 Miscellaneous Information (*Rx Drug Level Order Reminder*) GENT TROUGH @ 1,200 ON... 1200 ONCE XX ; Start 11/14/18 at 12:00; Stop 11/14/18 at 12:01 Lansoprazole (Prevacid) 30 mg DAILY@06 GTB Last administered on 11/14/18at 05:57; Admin Dose 30 MG; Start 11/14/18 at 06:00 SHELLEY HERNANDEZ Nov 14, 2018 07:07
[2018-11-14] MEDS: DOCUSATE SODIUM 10 MG/ML (10ML CUP) GTB SCH ×2 (09:20→22:45)
[2018-11-14] MEDS: FERROUS SULFATE 60 MG/ML 5ML CUP PO SCH ×2 (09:20→21:35)
[2018-11-14] MEDS: LEVETIRACETAM (100 MG/ML) 5ML CUP GTB SCH ×2 (09:20→21:35)
[2018-11-14] MEDS: FUROSEMIDE 40 MG INJ IV SCH (09:21)
[2018-11-14] MEDS: POTASSIUM CHLORIDE 20 MEQ POWDER FOR ORAL SOLN GTB SCH ×2 (09:21→21:35)
[2018-11-14] MEDS: ASPIRIN 81 MG TAB PO SCH (09:21)
[2018-11-14] MEDS: MULTIVITAMINS 30 ML CUP GTB SCH (09:21)
[2018-11-14] MEDS: ASCORBIC ACID 500 MG TAB GTB SCH (09:21)
[2018-11-14] MEDS: COLLAGENASE 5 GM (UD JAR) TOP SCH (09:21)
[2018-11-14] MEDS: MIDODRINE 5 MG TAB GTB SCH ×3 (09:21→16:49)
[2018-11-14] MEDS: METOPROLOL 25 MG TAB GTB SCH ×2 (09:22→21:00)
[2018-11-14] MEDS: NYSTATIN 15 GM OINT TOP SCH ×2 (09:23→21:35)
[2018-11-14] MEDS: BALSAM PERU/CASTOR OIL 60 GM TUBE TOP SCH (09:23)
[2018-11-14] MEDS: COLISTIMETHATE (25 MG/ML INHAL SYG) NEB SCH ×2 (09:37→19:35)
--- NOTE | 2018-11-14 11:12 | CONS ---
Assessment/Plan Assessment/Plan Assessment/Plan (Daily) Ventilator setting; assist control of 14, tidal volume 400, PEEP of 5, 50% FiO2. Assessment and recommendations; 1. Patient with history of severe chronic encephalopathy and VDR F admitted with severe bilateral pneumonia currently on appropriate antimicrobial regimen. Multiple organisms cultured from sputum. Hypoxemia has mildly improved. 2. Stable seizure disorder. 3. Chronic anemia. Continue current supportive care. Overall prognosis remains poor. Consultation Date/Type/Reason Admit Date/Time October 30, 2018 at 08:15 Initial Consult Date Type of Consult Pulmonary Patient is a 47-year-old male who has been transferred from assisted because of fever. Patient had been diagnosed a UTI with possibly pyonephritis. Currently on appropriate antimicrobial regimen. Because of advanced encephalopathy, patient remains totally noncommunicative. However, patient did not appear to be in any distress. Past medical history; 1. Advanced encephalopathy 2. VDRF 3. G-tube placement. 4. Seizure disorder. Medications; reviewed. Allergies; none. Social history; not available. Family history; not available. Occupational history; patient is on disability. Review of system; unable to be obtained. General exam; young male, on ventilator via tracheostomy, non communicative and unresponsive. Currently no distress. Requesting Provider: RICHARD GIRARD MD Date/Time of Note DATE: 11/14/18 TIME: 11:10 24 HR Interval Summary Free Text/Dictation Patient's condition is stable. General exam; young male, on ventilator via tracheostomy, noncommunicative. Currently in no distress. Exam/Review of Systems Exam Vitals Vital Signs Date Temp Pulse Resp B/P (MAP) Pulse Ox O2 O2 Flow FiO2 Time Delivery Rate 11/14/18 50 08:00 11/14/18 96 08:00 11/14/18 98.0 18 111/69 100 Nasal 07:53 (83) Cannula Intake and Output 11/13/18 11/13/18 11/14/18 1515:00 23:00 07:00 IntakeIntake Total 2025 ml 1200 ml OutputOutput Total 2100 ml 1500 ml BalanceBalance -75 ml -300 ml Exam H ENT exam; supple neck, no JVD. No lymphadenopathy. Midline trachea. No thyromegaly. Tracheostomy in place. Patient is edentulous. Chest exam; diminished breath on lung bases. Upper lobes are fairly clear. S1- S2 audible, no murmurs. Regular rhythm. Abdomen exam; soft, nondistended. No organomegaly. G-tube in place. Bowel s ounds audible. Extremity exam; no peripheral edema. Patient has a flexion contractures. [employer] exam; patient remains noncommunicative. Results Result Diagram: 11/14/18 0756 11/14/18 0756 Results 24hrs Laboratory Tests Test 11/14/18 07:56 White Blood Count 9.5 Red Blood Count 3.68 L Hemoglobin 8.7 L Hematocrit 29.6 L Mean Corpuscular Volume 80.4 L Mean Corpuscular Hemoglobin 23.6 L Mean Corpuscular Hemoglobin Concent 29.4 L Red Cell Distribution Width 20.7 H Platelet Count 419 H Mean Platelet Volume 10.7 H Immature Granulocytes % 1.100 H Neutrophils % 77.0 Lymphocytes % 16.1 Monocytes % 4.7 Eosinophils % 0.7 Basophils % 0.4 Nucleated Red Blood Cells % 0.0 Immature Granulocytes # 0.100 H Neutrophils # 7.3 Lymphocytes # 1.5 Monocytes # 0.5 Eosinophils # 0.1 Basophils # 0.0 Nucleated Red Blood Cells # 0.0 Sodium Level 138 Potassium Level 4.2 Chloride Level 104 Carbon Dioxide Level 24 Anion Gap 10 Blood Urea Nitrogen 15 Creatinine 0.61 Est Glomerular Filtrat Rate mL/min > 60 Glucose Level 133 Calcium Level 9.4 Medications Medication Current Medications Albuterol (Proventil 0.083% (Neb)) 2.5 mg Q3H RESP THERAPY PRN NEB WHEEZING AND SOB; Start 10/30/18 at 22:00 Albuterol (Proventil 0.083% (Neb)) 2.5 mg Q6H RESP THERAPY PRN NEB WHEEZING AND SOB; Start 10/30/18 at 22:00 Ascorbic Acid (Vitamin C) 500 mg DAILY GTB Last administered on 11/14/18at 09:21; Admin Dose 500 MG; Start 10/31/18 at 09:00 Metoclopramide HCl (Reglan) 10 mg Q6H PRN GTB NAUSEA AND/OR VOMITING Last administered on 11/10/18at 03:49; Admin Dose 10 MG; Start 10/30/18 at 22:00 Multivitamins (Multivitamin) 30 ml DAILY GTB Last administered on 11/14/18at 09:21; Admin Dose 30 ML; Start 10/31/18 at 09:00 Ferrous Sulfate (Feosol Liquid Cup) 300 mg BID PO Last administered on 11/14/18 09:20; Admin Dose 300 MG; Start 10/30/18 at 22:00 Levetiracetam (Keppra Liquid) 1,500 mg BID GTB Last administered on 11/14/18 09:20; Admin Dose 1,500 MG; Start 10/30/18 at 22:30 Acetaminophen (Tylenol Liquid) 650 mg Q4H PRN GTB MILD PAIN(1-3)OR ELEVATED TEMP Last administered on 11/10/18 01:30; Admin Dose 650 MG; Start 10/31/18 at 00:00 Nystatin (Nystatin Oint) 1 applic BID TOP Last administered on 11/14/18 09:23; Admin Dose 1 APPLIC; Start 10/31/18 at 21:00 Aspirin (Aspirin) 81 mg DAILY PO Last administered on 11/14/18 09:21; Admin Dose 81 MG; Start 11/01/18 at 09:00 Tramadol HCl (Ultram) 50 mg Q4 PRN PO MODERATE PAIN LEVEL 4-6 Last administered on 11/05/18 03:18; Admin Dose 50 MG; Start 11/01/18 at 21:00 Metoprolol Tartrate (Lopressor) 5 mg Q4 PRN IV ELEVATED HEART RATE; Start at 21:00 Docusate Sodium (Colace Liquid Cup) 100 mg BID GTB Last administered on 11/14/18 09:20; Admin Dose 100 MG; Start 11/02/18 at 09:00 Collagenase (Santyl) 1 applic DAILY TOP Last administered on 11/14/18 09:21; Admin Dose 1 APPLIC; Start 11/03/18 at 09:00 Midodrine (Proamatine) 5 mg TID@,,17 GTB Last administered on 11/14/18 09:21; Admin Dose 5 MG; Start 11/03/18 at 02:30 Potassium Chloride (Potassium Chloride Pwd/Soln) 20 meq BID GTB Last administered on 11/14/18 09:21; Admin Dose 20 MEQ; Start 11/04/18 at 09:00 Lorazepam (Ativan) 1 mg Q4H PRN IV AGITATION Last administered on 11/05/18 11:36; Admin Dose 1 MG; Start 11/05/18 at 11:30 Morphine Sulfate (morphine) 1 mg Q4H PRN IV SEVERE PAIN LEVEL 7-10 Last administered on 11/05/18 13:07; Admin Dose 1 MG; Start 11/05/18 at 13:30 Colistimethate Sodium (Colistin Inhal) 75 mg BID RESP THERAPY NEB Last administered on 11/14/18 09:37; Admin Dose 75 MG; Start 11/07/18 at 12:00 Metoprolol Tartrate (Lopressor) 12.5 mg BID GTB Last administered on 11/14/18 09:22; Admin Dose 12.5 MG; Start 11/08/18 at 21:00 Gentamicin Sulfate (Gentamicin Iv Per Pharmacy) GENTAMICIN PER PHARMACY NOTE XX ; Start 11/08/18 at 15:00 Piperacillin Sod/ Tazobactam Sod 100 ml @ 200 mls/hr Q8 IVPB Last administered on 11/14/18 05:57; Admin Dose 200 MLS/HR; Start 11/08/18 at 22:00 Furosemide (Lasix) 40 mg DAILY IV Last administered on 11/14/18 09:21; Admin Dose 40 MG; Start 11/13/18 at 10:30 Gentamicin Sulfate 290 mg/ Sodium Chloride 107.25 ml @ 107.25 mls/hr Q24H IVPB ; Start 11/14/18 at 13:00 Miscellaneous Information (*Rx Drug Level Order Reminder*) GENT TROUGH @ 1,200 ON... 1200 ONCE XX ; Start 11/14/18 at 12:00; Stop 11/14/18 at 12:01 Lansoprazole (Prevacid) 30 mg DAILY@06 GTB Last administered on 11/14/18 05:57; Admin Dose 30 MG; Start 11/14/18 at 06:00 MI JEFFERS Nov 14, 2018 11:12
[2018-11-14] MEDS ORDERED: GENTAMICIN 290 MG in SOD CHLORIDE 0.9% 100 ML IVPB SCH (13:00)
--- NOTE | 2018-11-14 13:27 | CONS ---
Assessment/Plan Assessment/Plan Hospital Course (Demo Recall) IMPRESSION: 1. Non-ST elevation myocardial infarction with up trending cardiac enzymes likely demand infarct in the setting of significant tachycardia and fevers, sepsis.-downtrended significantly 2. Abnormal electrocardiogram with nonspecific ST-T abnormalities. 3. Tachycardia, likely due to the patient's underlying sepsis-improved overall 4. Sepsis with the Gram-positive cocci group in clusters growing in blood and Gram-negative rods growing in urine. 5. Urinary tract infection. 6. Chronic respiratory failure, status post tracheostomy. 7. s/p G-tube. 8. Chronic anoxic encephalopathy. 9. Leukocytosis significantly improved. 10. Anemia-worsening 11. Hypernatremia-improved 12. Elevated Lipase- pancreatitis, slowly downtrending Recc: -Tele -Contineu asa as tolerated given anemia requiring transfusion -Contineu low dose BB as tolerated only at very low dose -Continue daily lasix and follow volume status clsoely -trend lipase/follow exam -contnue abx's and f/u cx data Consultation Date/Type/Reason Admit Date/Time October 30, 2018 at 08:15 Initial Consult Date 10/31/18 Type of Consult Cardiology Reason for Consultation Nstemi Requesting Provider: RICHARD GIRARD MD Date/Time of Note DATE: 11/14/18 TIME: 13:24 Exam/Review of Systems Vital Signs Vitals Vital Signs Date Temp Pulse Resp B/P (MAP) Pulse Ox O2 O2 Flow FiO2 Time Delivery Rate 11/14/18 98.0 92 18 118/70 99 12:56 (86) 11/14/18 50 08:00 11/14/18 Nasal 07:53 Cannula Intake and Output 11/13/18 11/13/18 11/14/18 1414:59 22:59 06:59 IntakeIntake Total 2025 ml 1200 ml OutputOutput Total 2100 ml 1500 ml BalanceBalance -75 ml -300 ml Exam Exam Review of Systems: CONSTITUTIONAL: No fevers, chills. PULMONARY: No sob CARDIOVASCULAR: No chest pain/palpitations GASTROINTESTINAL: No nausea/vomiting. GENITOURINARY: No hematuria/dysuria. MUSCULOSKELETAL: No myagias/arthalgias. PSYCHIATRIC: The patient denies depression. NEUROLOGIC: No weakness Constitutional: other (encephalopathic) Psych: no complaints Head: normocephalic ENMT: mucosa pink and moist Neck: supple, jvd (9 cm water) Respiratory: diminished breath sounds (at bases/B) Cardiovascular: regular rate and rhythm Gastrointestinal: soft, non-tender Musculoskeletal: muscle weakness (generalized) Extremities: edema (none) Neurological: unresponsive Labs Result Diagram: 11/14/18 0756 11/14/18 0756 Results 24hrs Laboratory Tests Test 11/14/18 07:56 11/14/18 12:07 White Blood Count 9.5 Red Blood Count 3.68 L Hemoglobin 8.7 L Hematocrit 29.6 L Mean Corpuscular Volume 80.4 L Mean Corpuscular Hemoglobin 23.6 L Mean Corpuscular Hemoglobin Concent 29.4 L Red Cell Distribution Width 20.7 H Platelet Count 419 H Mean Platelet Volume 10.7 H Immature Granulocytes % 1.100 H Neutrophils % 77.0 Lymphocytes % 16.1 Monocytes % 4.7 Eosinophils % 0.7 Basophils % 0.4 Nucleated Red Blood Cells % 0.0 Immature Granulocytes # 0.100 H Neutrophils # 7.3 Lymphocytes # 1.5 Monocytes # 0.5 Eosinophils # 0.1 Basophils # 0.0 Nucleated Red Blood Cells # 0.0 Sodium Level 138 Potassium Level 4.2 Chloride Level 104 Carbon Dioxide Level 24 Anion Gap 10 Blood Urea Nitrogen 15 Creatinine 0.61 Est Glomerular Filtrat Rate mL/min > 60 Glucose Level 133 Calcium Level 9.4 Gentamicin Level Trough 1.3 Medications Medications Current Medications Albuterol (Proventil 0.083% (Neb)) 2.5 mg Q3H RESP THERAPY PRN NEB WHEEZING AND SOB; Start 10/30/18 at 22:00 Albuterol (Proventil 0.083% (Neb)) 2.5 mg Q6H RESP THERAPY PRN NEB WHEEZING AND SOB; Start 10/30/18 at 22:00 Ascorbic Acid (Vitamin C) 500 mg DAILY GTB Last administered on 11/14/18at 09:21; Admin Dose 500 MG; Start 10/31/18 at 09:00 Metoclopramide HCl (Reglan) 10 mg Q6H PRN GTB NAUSEA AND/OR VOMITING Last administered on 11/10/18at 03:49; Admin Dose 10 MG; Start 10/30/18 at 22:00 Multivitamins (Multivitamin) 30 ml DAILY GTB Last administered on 6/9/19at 09:21; Admin Dose 30 ML; Start 10/31/18 at 09:00 Ferrous Sulfate (Feosol Liquid Cup) 300 mg BID PO Last administered on 11/14/18 09:20; Admin Dose 300 MG; Start 10/30/18 at 22:00 Levetiracetam (Keppra Liquid) 1,500 mg BID GTB Last administered on 11/14/18 09:20; Admin Dose 1,500 MG; Start 10/30/18 at 22:30 Acetaminophen (Tylenol Liquid) 650 mg Q4H PRN GTB MILD PAIN(1-3)OR ELEVATED TEMP Last administered on 11/10/18 01:30; Admin Dose 650 MG; Start 10/31/18 at 00:00 Nystatin (Nystatin Oint) 1 applic BID TOP Last administered on 11/14/18 09:23; Admin Dose 1 APPLIC; Start 10/31/18 at 21:00 Aspirin (Aspirin) 81 mg DAILY PO Last administered on 11/14/18 09:21; Admin Dose 81 MG; Start 11/01/18 at 09:00 Tramadol HCl (Ultram) 50 mg Q4 PRN PO MODERATE PAIN LEVEL 4-6 Last administered on 11/05/18 03:18; Admin Dose 50 MG; Start 11/01/18 at 21:00 Metoprolol Tartrate (Lopressor) 5 mg Q4 PRN IV ELEVATED HEART RATE; Start 11/01/18 at 21:00 Docusate Sodium (Colace Liquid Cup) 100 mg BID GTB Last administered on 11/14/18 09:20; Admin Dose 100 MG; Start 11/02/18 at 09:00 Collagenase (Santyl) 1 applic DAILY TOP Last administered on 11/14/18 09:21; Admin Dose 1 APPLIC; Start 11/03/18 at 09:00 Midodrine (Proamatine) 5 mg TID@,, GTB Last administered on 11/14/18:21; Admin Dose 5 MG; Start 11/03/18 at 02:30 Potassium Chloride (Potassium Chloride Pwd/Soln) 20 meq BID GTB Last administered on 11/14/18 09:21; Admin Dose 20 MEQ; Start 11/04/18 at 09:00 Lorazepam (Ativan) 1 mg Q4H PRN IV AGITATION Last administered on 11/05/18 11: 36; Admin Dose 1 MG; Start 11/05/18 at 11:30 Morphine Sulfate (morphine) 1 mg Q4H PRN IV SEVERE PAIN LEVEL 7-10 Last administered on 11/05/18 13:07; Admin Dose 1 MG; Start 11/05/18 at 13:30 Colistimethate Sodium (Colistin Inhal) 75 mg BID RESP THERAPY NEB Last administered on 11/14/18 09:37; Admin Dose 75 MG; Start 11/07/18 at 12:00 Metoprolol Tartrate (Lopressor) 12.5 mg BID GTB Last administered on 11/14/18 09:22; Admin Dose 12.5 MG; Start 11/08/18 at 21:00 Gentamicin Sulfate (Gentamicin Iv Per Pharmacy) GENTAMICIN PER PHARMACY NOTE XX ; Start 11/08/18 at 15:00 Piperacillin Sod/ Tazobactam Sod 100 ml @ 200 mls/hr Q8 IVPB Last administered on 11/14/18 05:57; Admin Dose 200 MLS/HR; Start 11/08/18 at 22:00 Furosemide (Lasix) 40 mg DAILY IV Last administered on 11/14/18 09:21; Admin Dose 40 MG; Start 11/13/18 at 10:30 Lansoprazole (Prevacid) 30 mg DAILY@06 GTB Last administered on 11/14/18 05:57; Admin Dose 30 MG; Start 11/14/18 at 06:00 Gentamicin Sulfate 290 mg/ Sodium Chloride 107.25 ml @ 107.25 mls/hr Q36H IVPB ; Start 11/15/18 at 02:00 ELOINA MISHRA Nov 14, 2018 13:27
--- NOTE | 2018-11-14 15:11 | CONS ---
Assessment/Plan Assessment/Plan Hospital Course (Demo Recall) ID PROGRESS NOTE CURRENT ABX: Day #=> ZOSYN + GENT + COLISTIN INH s/p Vanco IV + Cefepime 24h INTERVAL SUMMARY * VSS, no fevers, Lipase down to 615 today prior > 700 * Chronic vegetative - noncommunicative * New LUEXT PICC 11/13 bedside placement yesterday * LLL PNA on CT yesterday IMAGING * 11/13/18 post PICC CXR: 1. Left PICC tip in good position, at the cavoatrial junction.2. Possibly overinflated tracheostomy balloon. * 11/13/18 CT ABD-PEL: Findings worrisome for a left lower lobe moderate pneumonia; possible mild, acute uncomplicated pancreatitis. This can be correlated with laboratory values. 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 Cholelithiasis. * 11/01/17 CXR: New patchy consolidation at the right lung base concerning for pneumonia/aspiration pneumonia. * 10/31/18 RENAL US 1. Nonobstructing right intrarenal calculi ranging between 7-8 mm in size. No associated hydronephrosis. 2. Normal left kidney and collecting system . Note on prior CT scans the patient does have left intrarenal calculi are as well which are not seen on the current study. MICRO 10/31/18 (-)MRSA 10/30/18 (-)INFLUENZA A/B 10/30/18 BCx (-) 10/30/18 URINE CX (+)GNR URINE CULTURE Final Organism 1 PROTEUS MIRABILIS COLONY COUNT >100,000 CFU/ml P. MIRAB M.I.C. RX --------- --- AMPICILLIN >=32 R CEFOTAXIME S CIPROFLOXACIN >=4 R GENTAMICIN <=1 S LEVOFLOXACIN >=8 R NITROFURANTOIN 128 R TOBRAMYCIN <=1 S TRIMETHOPRIM/SULFAMETHOXAZOLE >=320 R Constitutional: well developed, non-verbal, obese, other (Persitent vegetative state - unresponsive ) Psych: other (Calm - non-responsive ) Head: normocephalic, atraumatic Eyes: nl conjunctiva, nl sclera ENMT: nl external ears & nose, nl lips & teeth (Lower lip with deformity at bilateral corners ), other (Trach secure to Vent) Neck: supple Respiratory: crackles/rales, diminished breath sounds, other (Ventilator dependent ); No normal air movement, No wheezing Cardiovascular: regular rate and rhythm, other (Sinus tachycradia @ 120 BPM) Gastrointestinal: soft, other (PEG ) Genitourinary - Male: nl scrotum (Scrotal erythema - excoriation - moisture associated ), other (FC); No nl penis (Penile head erythema = excoriation vs balantitis ? ), No discharge Musculoskeletal: muscle weakness, other (Flexion contraction BUEXT w/bilateral ); No nl extremities to inspection, No nl gait and stance, No muscle tone, No range of motion Extremities: other (Bilateral feet toe deformities and pressure ulcers see wound photos ) * Right upper extremity erythema + edema ? Midline thrombus ? Contact dermatitis allergy to tape vs. cellulitis? 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 Acute sepsis w/transient shock ON ADMISSION ==RESOLVED 2. GPC Bacteremia 2/2 bottles from ED -- PICC line REMOVED 3. GNR complicated UTI /pyelonephritis * 10/30/18 URINE CX (+)GNR URINE CULTURE Final Organism 1 PROTEUS MIRABILIS COLONY COUNT >100,000 CFU/ml 4. CA+ Crystals found in UA=> (+) nephrolithiasis = non-obstructive * 10/31/18 RENAL US 1. Nonobstructing right intrarenal calculi ranging between 7-8 mm in size. No associated hydronephrosis. 2. Normal left kidney and collecting system . Note on prior CT scans the patient does have left intrarenal calculi are as well which are not seen on the current study. 5. Right upper extremity erythema + edema ? Midline thrombus ? Contact dermatitis allergy to tape vs. cellulitis? 6. Chronic VDRF -> s/p Trach @ [facility] NOVEMBER 2009 * 10/30/18 CXR: IMPRESSION: 1. No congestive heart failure. 2. Minimal patchy density at the bases likely all due to atelectasis. No definite infiltrates however recommend clinical correlation 7. LLL PNA per CT 11/13/18 * Risk factors for ASP PNA = GERD, Hiatal Hernia, hx of Esophagitis (reflux), peg 8. Dysphagia -> s/p PEG @ [facility] November 2009 9. 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 Seizure disorder on Keppra = Avoid Carbapenems if possible 11. Bedbound state w/BUEXT flexion contractures 12. Penile, scrotal, liss-anal moisture associated dermatitis w/erythema 13. Bilateral feet decubs = minor 14. Elevated Lipase of uncertain significance (-)MRSA Nares INVASIVES: Trach, Peg, FC, LUEXT MIDLINE ABX ALLERGIES: KNDA CURRENT ABX: => ZOSYN + GENT + COLISTIN INH s/p Vanco IV + Cefepime ID RECOMMENDATIONS 1. Continue CURRENT ABX over the weekend Consultation Date/Type/Reason Admit Date/Time October 30, 2018 at 08:15 Initial Consult Date Type of Consult INFECTIOUS DISEASES * Thank you for the privilege of ID consultation to "[facility]"->Patient is known to Dr. Matias from multiple prior admissions to [facility]. Requesting Provider: RICHARD GIRARD MD Date/Time of Note DATE: 11/14/18 TIME: 15:06 Exam/Review of Systems Exam Vitals Vital Signs Date Temp Pulse Resp B/P (MAP) Pulse Ox O2 O2 Flow FiO2 Time Delivery Rate 11/14/18 98.0 92 18 118/70 99 12:56 (86) 11/14/18 50 08:00 11/14/18 Nasal 07:53 Cannula Intake and Output 11/13/18 11/13/18 11/14/18 1515:00 23:00 07:00 IntakeIntake Total 2025 ml 1200 ml OutputOutput Total 2100 ml 1500 ml BalanceBalance -75 ml -300 ml Results Result Diagram: 11/14/18 0756 11/14/18 0756 Results 24hrs Laboratory Tests Test 11/14/18 07:56 11/14/18 12:07 White Blood Count 9.5 Red Blood Count 3.68 L Hemoglobin 8.7 L Hematocrit 29.6 L Mean Corpuscular Volume 80.4 L Mean Corpuscular Hemoglobin 23.6 L Mean Corpuscular Hemoglobin Concent 29.4 L Red Cell Distribution Width 20.7 H Platelet Count 419 H Mean Platelet Volume 10.7 H Immature Granulocytes % 1.100 H Neutrophils % 77.0 Lymphocytes % 16.1 Monocytes % 4.7 Eosinophils % 0.7 Basophils % 0.4 Nucleated Red Blood Cells % 0.0 Immature Granulocytes # 0.100 H Neutrophils # 7.3 Lymphocytes # 1.5 Monocytes # 0.5 Eosinophils # 0.1 Basophils # 0.0 Nucleated Red Blood Cells # 0.0 Sodium Level 138 Potassium Level 4.2 Chloride Level 104 Carbon Dioxide Level 24 Anion Gap 10 Blood Urea Nitrogen 15 Creatinine 0.61 Est Glomerular Filtrat Rate mL/min > 60 Glucose Level 133 Calcium Level 9.4 Gentamicin Level Trough 1.3 Medications Medication Current Medications Albuterol (Proventil 0.083% (Neb)) 2.5 mg Q3H RESP THERAPY PRN NEB WHEEZING AND SOB; Start 10/30/18 at 22:00 Albuterol (Proventil 0.083% (Neb)) 2.5 mg Q6H RESP THERAPY PRN NEB WHEEZING AND SOB; Start 10/30/18 at 22:00 Ascorbic Acid (Vitamin C) 500 mg DAILY GTB Last administered on 11/14/18 09:21; Admin Dose 500 MG; Start 10/31/18 at 09:00 Metoclopramide HCl (Reglan) 10 mg Q6H PRN GTB NAUSEA AND/OR VOMITING Last administered on 11/10/18 03:49; Admin Dose 10 MG; Start 10/30/18 at 22:00 Multivitamins (Multivitamin) 30 ml DAILY GTB Last administered on 11/14/18 09:21; Admin Dose 30 ML; Start 10/31/18 at 09:00 Ferrous Sulfate (Feosol Liquid Cup) 300 mg BID PO Last administered on 11/14/18 09:20; Admin Dose 300 MG; Start 10/30/18 at 22:00 Levetiracetam (Keppra Liquid) 1,500 mg BID GTB Last administered on 11/14/18 09:20; Admin Dose 1,500 MG; Start 10/30/18 at 22:30 Acetaminophen (Tylenol Liquid) 650 mg Q4H PRN GTB MILD PAIN(1-3)OR ELEVATED TEM P Last administered on 11/10/18 01:30; Admin Dose 650 MG; Start 10/31/18 at 00:00 Nystatin (Nystatin Oint) 1 applic BID TOP Last administered on 11/14/18 09:23; Admin Dose 1 APPLIC; Start 10/31/18 at 21:00 Aspirin (Aspirin) 81 mg DAILY PO Last administered on 11/14/18 09:21; Admin Dose 81 MG; Start 11/01/18 at 09:00 Tramadol HCl (Ultram) 50 mg Q4 PRN PO MODERATE PAIN LEVEL 4-6 Last administered on 11/05/18 03:18; Admin Dose 50 MG; Start 11/01/18 at 21:00 Metoprolol Tartrate (Lopressor) 5 mg Q4 PRN IV ELEVATED HEART RATE; Start 11/01/18 at 21:00 Docusate Sodium (Colace Liquid Cup) 100 mg BID GTB Last administered on 11/14/18 09:20; Admin Dose 100 MG; Start 11/02/18 at 09:00 Collagenase (Santyl) 1 applic DAILY TOP Last administered on 11/14/18 09:21; Admin Dose 1 APPLIC; Start 11/03/18 at 09:00 Midodrine (Proamatine) 5 mg TID@,,17 GTB Last administered on 11/14/18 09:21; Admin Dose 5 MG; Start 11/03/18 at 02:30 Potassium Chloride (Potassium Chloride Pwd/Soln) 20 meq BID GTB Last administered on 11/14/18 09:21; Admin Dose 20 MEQ; Start 11/04/18 at 09:00 Lorazepam (Ativan) 1 mg Q4H PRN IV AGITATION Last administered on 11/05/18 11:36; Admin Dose 1 MG; Start 11/05/18 at 11:30 Morphine Sulfate (morphine) 1 mg Q4H PRN IV SEVERE PAIN LEVEL 7-10 Last administered on 11/05/18 13:07; Admin Dose 1 MG; Start 11/05/18 at 13:30 Colistimethate Sodium (Colistin Inhal) 75 mg BID RESP THERAPY NEB Last administered on 11/14/18 09:37; Admin Dose 75 MG; Start 11/07/18 at 12:00 Metoprolol Tartrate (Lopressor) 12.5 mg BID GTB Last administered on 11/14/18 09:22; Admin Dose 12.5 MG; Start 11/08/18 at 21:00 Gentamicin Sulfate (Gentamicin Iv Per Pharmacy) GENTAMICIN PER PHARMACY NOTE XX ; Start 11/08/18 at 15:00 Piperacillin Sod/ Tazobactam Sod 100 ml @ 200 mls/hr Q8 IVPB Last administered on 11/14/18at 13:41; Admin Dose 200 MLS/HR; Start 11/08/18 at 22:00 Furosemide (Lasix) 40 mg DAILY IV Last administered on 11/14/18at 09:21; Admin Dose 40 MG; Start 11/13/18 at 10:30 Lansoprazole (Prevacid) 30 mg DAILY@06 GTB Last administered on 11/14/18at 05:57; Admin Dose 30 MG; Start 11/14/18 at 06:00 Gentamicin Sulfate 290 mg/ Sodium Chloride 107.25 ml @ 107.25 mls/hr Q36H IVPB ; Start 11/15/18 at 02:00 GUNJAN CORRALES NP Nov 14, 2018 15:11
[2018-11-15] VITALS (22 sets, daily range): BP systolic 106–121; BP diastolic 61–75; PULSE 83–108; RESP 16–36
[2018-11-15] MEDS: METOPROLOL 25 MG TAB GTB SCH ×3 (01:09→22:56)
[2018-11-15] MEDS: GENTAMICIN 290 MG in SOD CHLORIDE 0.9% 100 ML IVPB SCH (02:08)
[2018-11-15] MEDS: PIPER-TAZO 3.375 GM IV (PMX) 100 ML IVPB SCH ×2 (05:51→14:23)
[2018-11-15] MEDS: LANSOPRAZOLE 30 MG CAP GTB SCH (05:51)
--- NOTE | 2018-11-15 07:35 | PN ---
DATE: 11/14/2018 SUBJECTIVE: The patient is alert. He is nonverbal. The patient is admitted with pancreatitis. Cur rently, he is tolerating the tube feeding well. OBJECTIVE: VITAL SIGNS: Temperature 98.0, blood pressure is 118/70. CARDIOVASCULAR: Normal heart sounds. RESPIRATORY: Normal breath sounds. ABDOMEN: G-tube feeding is in progress, which he seems to be tolerating. LABORATORY WORKUP: WBC count 9500 on 11/11/2018. Lipase is 615. DIAGNOSTIC DATA: CAT scan of the abdomen was ordered which showed evidence of resolving pancreatitis . Left lower lobe pneumonia is noted. The patient also has horseshoe kidneys and also renal stones and also got cholelithiasis. CLINICAL IMPRESSION: Pancreatitis, probably secondary to choledocholithiasis. PLAN: We cannot establish choledocholithiasis because of the patient's inability to have an MRCP; ho wever, we will try one more time. We will do the MRCP, but if necessary, ERCP may have to be done to prevent further pancreatitis. Dictated By: LUCIE HUNTER MD NC/NTS Conf#: [id number] DID#: [id number] CC: RICHARD GIRARD MD; DONTE NEWTON MD;*End*
--- NOTE | 2018-11-15 07:51 | PN ---
DATE: 11/12/2018 PHYSICAL EXAMINATION GENERAL: The patient is intubated. He is alert but is noncommunicative. VITAL SIGNS: Temperature afebrile, blood pressure 110/71. CARDIOVASCULAR: Normal heart sounds. RESPIRATORY: Normal breath sounds. ABDOMINAL: Shows evidence of a soft abdomen. G-tube is in place. He is tolerating the G-tube feedi ng well. LABORATORY WORKUP: WBC is 9900, hemoglobin 9.5. The patient was admitted with pancreatitis and the etiology of pancreatitis is not very clear. The s lauren lipase was 615 yesterday. ASSESSMENT: The patient seems to be tolerating the tube feeding with a little elevation of lipase. However, we will follow the blood work closely, improving pancreatitis. PLAN: Continue present management. Dictated By: LUCIE BEAR/NTS Conf#: [id number] DID#: [id number] CC: RICHARD GIRRAD MD;*EndCC*
[2018-11-15] MEDS: MULTIVITAMINS 30 ML CUP GTB SCH (08:49)
[2018-11-15] MEDS: LEVETIRACETAM (100 MG/ML) 5ML CUP GTB SCH ×2 (08:49→23:14)
[2018-11-15] MEDS: ASPIRIN 81 MG TAB PO SCH (08:49)
[2018-11-15] MEDS: POTASSIUM CHLORIDE 20 MEQ POWDER FOR ORAL SOLN GTB SCH ×2 (08:49→22:55)
[2018-11-15] MEDS: DOCUSATE SODIUM 10 MG/ML (10ML CUP) GTB SCH ×2 (08:49→22:54)
[2018-11-15] MEDS: FERROUS SULFATE 60 MG/ML 5ML CUP PO SCH ×2 (08:49→22:54)
[2018-11-15] MEDS: MIDODRINE 5 MG TAB GTB SCH ×3 (08:50→16:41)
[2018-11-15] MEDS: NYSTATIN 15 GM OINT TOP SCH ×2 (08:51→22:56)
[2018-11-15] MEDS: ASCORBIC ACID 500 MG TAB GTB SCH (08:51)
[2018-11-15] MEDS: COLLAGENASE 5 GM (UD JAR) TOP SCH (08:51)
[2018-11-15] MEDS: FUROSEMIDE 40 MG INJ IV SCH (08:51)
[2018-11-15] MEDS: BALSAM PERU/CASTOR OIL 60 GM TUBE TOP SCH (08:52)
[2018-11-15] MEDS: COLISTIMETHATE (25 MG/ML INHAL SYG) NEB SCH ×2 (09:41→20:39)
--- NOTE | 2018-11-15 11:38 | CONS ---
Assessment/Plan Assessment/Plan Assessment/Plan (Daily) Ventilator setting; AC of 14, tidal volume 400, PEEP of 5, 50% FiO2. Assessment and recommendations; 1. Patient with history of VDRF and chronic encephalopathy admitted with severe bilateral pneumonia still remaining hypoxemic on 50% FiO2. Currently on appropriate antimicrobial regimen. 2. Stable seizure disorder. Continue current supportive care. Wean down FiO2 as tolerated. Obtain follow- up chest x-ray 24 hours. Overall prognosis remains poor. Consultation Date/Type/Reason Admit Date/Time October 30, 2018 at 08:15 Initial Consult Date Type of Consult Pulmonary Patient is a 47-year-old male who has been transferred from [facility] because of fever. Patient had been diagnosed a UTI with possibly pyonephritis. Currently on appropriate antimicrobial regimen. Because of advanced encephalopathy, patient remains totally noncommunicative. However, patient did not appear to be in any distress. Past medical history; 1. Advanced encephalopathy 2. VDRF 3. G-tube placement. 4. Seizure disorder. Medications; reviewed. Allergies; none. Social history; not available. Family history; not available. Occupational history; patient is on disability. Review of system; unable to be obtained. General exam; young male, on ventilator via tracheostomy, non communicative and unresponsive. Currently no distress. Requesting Provider: RICHARD GIRARD MD Date/Time of Note DATE: 11/15/18 TIME: 11:37 24 HR Interval Summary Free Text/Dictation Patient's condition is stable. Has remained hemodynamically stable. General exam; young male, on ventilator via tracheostomy, noncommunicative. Currently in no distress. Exam/Review of Systems Exam Vitals Vital Signs Date Temp Pulse Resp B/P (MAP) Pulse Ox O2 O2 Flow FiO2 Time Delivery Rate 11/15/18 88 08:01 11/15/18 98.6 20 117/67 99 07:35 (84) 11/15/18 40 05:11 11/14/18 Nasal 07:53 Cannula Intake and Output 11/14/18 11/14/18 11/15/18 1515:00 23:00 07:00 IntakeIntake Total 100 ml 1360 ml 1417.25 ml OutputOutput Total 800 ml 1550 ml BalanceBalance 100 ml 560 ml -132.75 ml Exam H EENT exam; supple neck, no JVD. No lymphadenopathy. Midline trachea. No thyromegaly. Tracheostomy in place. Patient is edentulous. Chest exam; diminished breath sounds bilaterally. S1-S2 audible, no murmurs. Regular rhythm. Abdomen exam; soft, no organomegaly. Bowel sounds audible. G-tube in place. Extremity exam; no peripheral edema. Patient has a flexion contractures. 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 Results Result Diagram: 11/15/18 0550 11/15/18 0550 Results 24hrs Laboratory Tests Test 11/14/18 12:07 11/15/18 05:50 Gentamicin Level Trough 1.3 White Blood Count 9.4 Red Blood Count 3.31 L Hemoglobin 8.0 L Hematocrit 26.7 L Mean Corpuscular Volume 80.7 L Mean Corpuscular Hemoglobin 24.2 L Mean Corpuscular Hemoglobin Concent 30.0 L Red Cell Distribution Width 20.9 H Platelet Count 361 Mean Platelet Volume 10.6 H Immature Granulocytes % 0.900 H Neutrophils % 74.0 Lymphocytes % 18.4 Monocytes % 5.1 Eosinophils % 1.1 Basophils % 0.5 Nucleated Red Blood Cells % 0.0 Immature Granulocytes # 0.080 H Neutrophils # 6.9 Lymphocytes # 1.7 Monocytes # 0.5 Eosinophils # 0.1 Basophils # 0.1 Nucleated Red Blood Cells # 0.0 Sodium Level 139 Potassium Level 4.0 Chloride Level 103 Carbon Dioxide Level 26 Anion Gap 10 Blood Urea Nitrogen 17 Creatinine 0.56 L Est Glomerular Filtrat Rate mL/min > 60 Glucose Level 122 Calcium Level 9.0 Medications Medication Current Medications Albuterol (Proventil 0.083% (Neb)) 2.5 mg Q3H RESP THERAPY PRN NEB WHEEZING AND SOB; Start 10/30/18 at 22:00 Albuterol (Proventil 0.083% (Neb)) 2.5 mg Q6H RESP THERAPY PRN NEB WHEEZING AND SOB; Start 10/30/18 at 22:00 Ascorbic Acid (Vitamin C) 500 mg DAILY GTB Last administered on 11/15/18at 08:51; Admin Dose 500 MG; Start 10/31/18 at 09:00 Metoclopramide HCl (Reglan) 10 mg Q6H PRN GTB NAUSEA AND/OR VOMITING Last administered on 11/10/18at 03:49; Admin Dose 10 MG; Start 10/30/18 at 22:00 Multivitamins (Multivitamin) 30 ml DAILY GTB Last administered on 11/15/18 08:49; Admin Dose 30 ML; Start 10/31/18 at 09:00 Ferrous Sulfate (Feosol Liquid Cup) 300 mg BID PO Last administered on 11/15/18 08:49; Admin Dose 300 MG; Start 10/30/18 at 22:00 Levetiracetam (Keppra Liquid) 1,500 mg BID GTB Last administered on 11/15/18 08:49; Admin Dose 1,500 MG; Start 10/30/18 at 22:30 Acetaminophen (Tylenol Liquid) 650 mg Q4H PRN GTB MILD PAIN(1-3)OR ELEVATED TEMP Last administered on 11/10/18 01:30; Admin Dose 650 MG; Start 10/31/18 at 00:00 Nystatin (Nystatin Oint) 1 applic BID TOP Last administered on 11/15/18 08:51; Admin Dose 1 APPLIC; Start 10/31/18 at 21:00 Aspirin (Aspirin) 81 mg DAILY PO Last administered on 11/15/18 08:49; Admin Dose 81 MG; Start 11/01/18 at 09:00 Tramadol HCl (Ultram) 50 mg Q4 PRN PO MODERATE PAIN LEVEL 4-6 Last administered on 11/05/18 03:18; Admin Dose 50 MG; Start 11/01/18 at 21:00 Metoprolol Tartrate (Lopressor) 5 mg Q4 PRN IV ELEVATED HEART RATE; Start 11/01/18 at 21:00 Docusate Sodium (Colace Liquid Cup) 100 mg BID GTB Last administered on 11/15/18 08:49; Admin Dose 100 MG; Start 11/02/18 at 09:00 Collagenase (Santyl) 1 applic DAILY TOP Last administered on 11/15/18 08:51; Admin Dose 1 APPLIC; Start 11/03/18 at 09:00 Midodrine (Proamatine) 5 mg TID@,,17 GTB Last administered on 11/14/18 09:21; Admin Dose 5 MG; Start 11/03/18 at 02:30 Potassium Chloride (Potassium Chloride Pwd/Soln) 20 meq BID GTB Last admi nistered on 6/10/19at 08:49; Admin Dose 20 MEQ; Start 11/04/18 at 09:00 Lorazepam (Ativan) 1 mg Q4H PRN IV AGITATION Last administered on 11/05/18 11:36; Admin Dose 1 MG; Start 11/05/18 at 11:30 Morphine Sulfate (morphine) 1 mg Q4H PRN IV SEVERE PAIN LEVEL 7-10 Last administered on 11/05/18 13:07; Admin Dose 1 MG; Start 11/05/18 at 13:30 Colistimethate Sodium (Colistin Inhal) 75 mg BID RESP THERAPY NEB Last administered on 11/15/18 09:41; Admin Dose 75 MG; Start 11/07/18 at 12:00 Metoprolol Tartrate (Lopressor) 12.5 mg BID GTB Last administered on 11/15/18 08:51; Admin Dose 12.5 MG; Start 11/08/18 at 21:00 Gentamicin Sulfate (Gentamicin Iv Per Pharmacy) GENTAMICIN PER PHARMACY NOTE XX ; Start 11/08/18 at 15:00 Piperacillin Sod/ Tazobactam Sod 100 ml @ 200 mls/hr Q8 IVPB Last administered on 11/15/18 05:51; Admin Dose 200 MLS/HR; Start 11/08/18 at 22:00 Furosemide (Lasix) 40 mg DAILY IV Last administered on 11/15/18 08:51; Admin Dose 40 MG; Start 11/13/18 at 10:30 Lansoprazole (Prevacid) 30 mg DAILY@06 GTB Last administered on 11/15/18 05:51; Admin Dose 30 MG; Start 11/14/18 at 06:00 Gentamicin Sulfate 290 mg/ Sodium Chloride 107.25 ml @ 107.25 mls/hr Q36H IVPB Last administered on 11/15/18 02:08; Admin Dose 107.25 MLS/HR; Start 11/15/18 at 02:00 MI JEFFERS 10, 2019 11:38
--- NOTE | 2018-11-15 11:39 | CONS ---
Assessment/Plan Assessment/Plan Hospital Course (Demo Recall) IMPRESSION: 1. Non-ST elevation myocardial infarction with up trending cardiac enzymes likely demand infarct in the setting of significant tachycardia and fevers, sepsis.-downtrended significantly 2. Abnormal electrocardiogram with nonspecific ST-T abnormalities. 3. Tachycardia, likely due to the patient's underlying sepsis-improved overall 4. Sepsis with the Gram-positive cocci group in clusters growing in blood and Gram-negative rods growing in urine. 5. Urinary tract infection. 6. Chronic respiratory failure, status post tracheostomy. 7. s/p G-tube. 8. Chronic anoxic encephalopathy. 9. Leukocytosis significantly improved. 10. Anemia-worsening 11. Hypernatremia-improved 12. Elevated Lipase- pancreatitis, slowly downtrending Recc: -Tele -Contineu asa as tolerated given anemia requiring transfusion -Contineu low dose BB as tolerated only at very low dose -Continue daily lasix and follow volume status clsoely -trend lipase/follow exam -contnue abx's and f/u cx data Consultation Date/Type/Reason Admit Date/Time October 30, 2018 at 08:15 Initial Consult Date 10/31/18 Type of Consult Cardiology Reason for Consultation [email or web address] Requesting Provider: RICHARD GIRARD MD Date/Time of Note DATE: 11/15/18 TIME: 11:37 Exam/Review of Systems Vital Signs Vitals Vital Signs Date Temp Pulse Resp B/P (MAP) Pulse Ox O2 O2 Flow FiO2 Time Delivery Rate 11/15/18 88 08:01 11/15/18 98.6 20 117/67 99 07:35 (84) 11/15/18 40 05:11 11/14/18 Nasal 07:53 Cannula Intake and Output 11/14/18 11/14/18 11/15/18 1515:00 23:00 07:00 IntakeIntake Total 100 ml 1360 ml 1417.25 ml OutputOutput Total 800 ml 1550 ml BalanceBalance 100 ml 560 ml -132.75 ml Exam Exam Review of Systems: CONSTITUTIONAL: No fevers, chills. PULMONARY: No sob CARDIOVASCULAR: No chest pain/palpitations GASTROINTESTINAL: No nausea/vomiting. GENITOURINARY: No hematuria/dysuria. MUSCULOSKELETAL: No myagias/arthalgias. PSYCHIATRIC: The patient denies depression. NEUROLOGIC: nonresponsive Constitutional: other (encephalopathic) Head: normocephalic ENMT: mucosa pink and moist Neck: supple, jvd (9 cm wter) Respiratory: diminished breath sounds (at bases/B) Cardiovascular: regular rate and rhythm Gastrointestinal: soft, non-tender Musculoskeletal: muscle tone (norml) Extremities: edema (none) Neurological: unresponsive Labs Result Diagram: 11/15/18 0550 11/15/18 0550 Results 24hrs Laboratory Tests Test 11/14/18 12:07 11/15/18 05:50 Gentamicin Level Trough 1.3 White Blood Count 9.4 Red Blood Count 3.31 L Hemoglobin 8.0 L Hematocrit 26.7 L Mean Corpuscular Volume 80.7 L Mean Corpuscular Hemoglobin 24.2 L Mean Corpuscular Hemoglobin Concent 30.0 L Red Cell Distribution Width 20.9 H Platelet Count 361 Mean Platelet Volume 10.6 H Immature Granulocytes % 0.900 H Neutrophils % 74.0 Lymphocytes % 18.4 Monocytes % 5.1 Eosinophils % 1.1 Basophils % 0.5 Nucleated Red Blood Cells % 0.0 Immature Granulocytes # 0.080 H Neutrophils # 6.9 Lymphocytes # 1.7 Monocytes # 0.5 Eosinophils # 0.1 Basophils # 0.1 Nucleated Red Blood Cells # 0.0 Sodium Level 139 Potassium Level 4.0 Chloride Level 103 Carbon Dioxide Level 26 Anion Gap 10 Blood Urea Nitrogen 17 Creatinine 0.56 L Est Glomerular Filtrat Rate mL/min > 60 Glucose Level 122 Calcium Level 9.0 Medications Medications Current Medications Albuterol (Proventil 0.083% (Neb)) 2.5 mg Q3H RESP THERAPY PRN NEB WHEEZING AND SOB; Start 10/30/18 at 22:00 Albuterol (Proventil 0.083% (Neb)) 2.5 mg Q6H RESP THERAPY PRN NEB WHEEZING AND SOB; Start 10/30/18 at 22:00 Ascorbic Acid (Vitamin C) 500 mg DAILY GTB Last administered on 11/15/18at 08:51; Admin Dose 500 MG; Start 10/31/18 at 09:00 Metoclopramide HCl (Reglan) 10 mg Q6H PRN GTB NAUSEA AND/OR VOMITING Last admin istered on 11/10/18at 03:49; Admin Dose 10 MG; Start 10/30/18 at 22:00 Multivitamins (Multivitamin) 30 ml DAILY GTB Last administered on 11/15/18 08:49; Admin Dose 30 ML; Start 10/31/18 at 09:00 Ferrous Sulfate (Feosol Liquid Cup) 300 mg BID PO Last administered on 11/15/18 08:49; Admin Dose 300 MG; Start 10/30/18 at 22:00 Levetiracetam (Keppra Liquid) 1,500 mg BID GTB Last administered on 11/15/18 08:49; Admin Dose 1,500 MG; Start 10/30/18 at 22:30 Acetaminophen (Tylenol Liquid) 650 mg Q4H PRN GTB MILD PAIN(1-3)OR ELEVATED TEMP Last administered on 11/10/18 01:30; Admin Dose 650 MG; Start 10/31/18 at 00:00 Nystatin (Nystatin Oint) 1 applic BID TOP Last administered on 11/15/18 08:51; Admin Dose 1 APPLIC; Start 10/31/18 at 21:00 Aspirin (Aspirin) 81 mg DAILY PO Last administered on 11/15/18 08:49; Admin Dose 81 MG; Start 11/01/18 at 09:00 Tramadol HCl (Ultram) 50 mg Q4 PRN PO MODERATE PAIN LEVEL 4-6 Last administered on 11/05/18 03:18; Admin Dose 50 MG; Start 11/01/18 at 21:00 Metoprolol Tartrate (Lopressor) 5 mg Q4 PRN IV ELEVATED HEART RATE; Start 11/01/18 at 21:00 Docusate Sodium (Colace Liquid Cup) 100 mg BID GTB Last administered on 11/15/18 08:49; Admin Dose 100 MG; Start 11/02/18 at 09:00 Collagenase (Santyl) 1 applic DAILY TOP Last administered on 11/15/18 08:51; Admin Dose 1 APPLIC; Start 11/03/18 at 09:00 Midodrine (Proamatine) 5 mg TID@,,17 GTB Last administered on 11/14/18 09:21; Admin Dose 5 MG; Start 11/03/18 at 02:30 Potassium Chloride (Potassium Chloride Pwd/Soln) 20 meq BID GTB Last administered on 11/15/18 08:49; Admin Dose 20 MEQ; Start 11/04/18 at 09:00 Lorazepam (Ativan) 1 mg Q4H PRN IV AGITATION Last administered on 11/05/18 11:36; Admin Dose 1 MG; Start 11/05/18 at 11:30 Morphine Sulfate (morphine) 1 mg Q4H PRN IV SEVERE PAIN LEVEL 7-10 Last administered on 11/05/18 13:07; Admin Dose 1 MG; Start 11/05/18 at 13:30 Colistimethate Sodium (Colistin Inhal) 75 mg BID RESP THERAPY NEB Last administered on 11/15/18 09:41; Admin Dose 75 MG; Start 11/07/18 at 12:00 Metoprolol Tartrate (Lopressor) 12.5 mg BID GTB Last administered on 11/15/18 08:51; Admin Dose 12.5 MG; Start 11/08/18 at 21:00 Gentamicin Sulfate (Gentamicin Iv Per Pharmacy) GENTAMICIN PER PHARMACY NOTE XX ; Start 11/08/18 at 15:00 Piperacillin Sod/ Tazobactam Sod 100 ml @ 200 mls/hr Q8 IVPB Last administered on 11/15/18 05:51; Admin Dose 200 MLS/HR; Start 11/08/18 at 22:00 Furosemide (Lasix) 40 mg DAILY IV Last administered on 11/15/18 08:51; Admin Dose 40 MG; Start 11/13/18 at 10:30 Lansoprazole (Prevacid) 30 mg DAILY@06 GTB Last administered on 11/15/18 05:51; Admin Dose 30 MG; Start 11/14/18 at 06:00 Gentamicin Sulfate 290 mg/ Sodium Chloride 107.25 ml @ 107.25 mls/hr Q36H IVPB Last administered on 11/15/18 02:08; Admin Dose 107.25 MLS/HR; Start 11/15/18 at 02:00 ELOINA MISHRA Nov 15, 2018 11:39
--- NOTE | 2018-11-15 14:35 | CONS ---
Assessment/Plan Assessment/Plan Hospital Course (Demo Recall) No events, looks comfortable, afebrile Antimicrobials: Gentamicin, Zosyn, Colistin INH Microbiology: Blood culture on admission grew coag negative staph species, urine culture grew Proteus mirabilis. Sputum culture grew Acinetobacter, Pseudomonas and Klebsiella ESBL susceptible to gentamicin CT of the chest on admission revealed right lower lobe dense wench shaped consolidation with moderate bilateral peribronchial nodular opacities consistent with multifocal pneumonia. Hydronephrosis of the right kidney of mild severity secondary to partial visualization of a 10 mm stone in the right proximal ureter with wall thickening and inflammation of the right renal pelvic wall and proxim al ureteral wall. Please see full report in the chart Physical examination: Chronically ill-appearing vegetative middle-aged man who is in no distress. Head atraumatic normocephalic neck is supple tracheostomy present chest rise symmetrical breath sounds diminished bases. Heart: S1-S2. Abdomen soft bowel sounds hypoactive. Extremities wasted contractured Assessment: 1. Severe sepsis, present on admission 2. Coag negative staph bacteremia, possibly line sepsis as patient had PICC line on admission that was discontinued 3. Multifocal healthcare associated pneumonia 4. Urinary tract infection with obstructive uropathy 5. Vegetative 6. Elevated lipase ?pancreatitis 7. DNR Plan: Clinically unchanged, lipase still remains elevated, continue antibiotics, follow GI recommendations YAKOV Grossman Consultation Date/Type/Reason Admit Date/Time October 30, 2018 at 08:15 Initial Consult Date Type of Consult id Requesting Provider: RICHARD GIRARD MD Date/Time of Note DATE: 11/15/18 TIME: 14:33 Exam/Review of Systems Exam Vitals Vital Signs Date Temp Pulse Resp B/P (MAP) Pulse Ox O2 O2 Flow FiO2 Time Delivery Rate 11/15/18 98.2 102 18 121/70 99 12:42 (87) 11/15/18 40 05:11 11/14/18 Nasal 07:53 Cannula Intake and Output 11/14/18 11/14/18 11/15/18 1515:00 23:00 07:00 IntakeIntake Total 100 ml 1360 ml 1417.25 ml OutputOutput Total 800 ml 1550 ml BalanceBalance 100 ml 560 ml -132.75 ml Results Result Diagram: 11/15/18 0550 11/15/18 0550 Results 24hrs Laboratory Tests Test 11/15/18 05:50 White Blood Count 9.4 Red Blood Count 3.31 L Hemoglobin 8.0 L Hematocrit 26.7 L Mean Corpuscular Volume 80.7 L Mean Corpuscular Hemoglobin 24.2 L Mean Corpuscular Hemoglobin Concent 30.0 L Red Cell Distribution Width 20.9 H Platelet Count 361 Mean Platelet Volume 10.6 H Immature Granulocytes % 0.900 H Neutrophils % 74.0 Lymphocytes % 18.4 Monocytes % 5.1 Eosinophils % 1.1 Basophils % 0.5 Nucleated Red Blood Cells % 0.0 Immature Granulocytes # 0.080 H Neutrophils # 6.9 Lymphocytes # 1.7 Monocytes # 0.5 Eosinophils # 0.1 Basophils # 0.1 Nucleated Red Blood Cells # 0.0 Sodium Level 139 Potassium Level 4.0 Chloride Level 103 Carbon Dioxide Level 26 Anion Gap 10 Blood Urea Nitrogen 17 Creatinine 0.56 L Est Glomerular Filtrat Rate mL/min > 60 Glucose Level 122 Calcium Level 9.0 Amylase Level 155 H Lipase 620 H Medications Medication Current Medications Albuterol (Proventil 0.083% (Neb)) 2.5 mg Q3H RESP THERAPY PRN NEB WHEEZING AND SOB; Start 10/30/18 at 22:00 Albuterol (Proventil 0.083% (Neb)) 2.5 mg Q6H RESP THERAPY PRN NEB WHEEZING AND SOB; Start 10/30/18 at 22:00 Ascorbic Acid (Vitamin C) 500 mg DAILY GTB Last administered on 11/15/18 08:51; Admin Dose 500 MG; Start 10/31/18 at 09:00 Metoclopramide HCl (Reglan) 10 mg Q6H PRN GTB NAUSEA AND/OR VOMITING Last administered on 11/10/18 03:49; Admin Dose 10 MG; Start 10/30/18 at 22:00 Multivitamins (Multivitamin) 30 ml DAILY GTB Last administered on 11/15/18 08:49; Admin Dose 30 ML; Start 10/31/18 at 09:00 Ferrous Sulfate (Feosol Liquid Cup) 300 mg BID PO Last administered on 11/15/18 08:49; Admin Dose 300 MG; Start 10/30/18 at 22:00 Levetiracetam (Keppra Liquid) 1,500 mg BID GTB Last administered on 11/15/18 08:49; Admin Dose 1,500 MG; Start 10/30/18 at 22:30 Acetaminophen (Tylenol Liquid) 650 mg Q4H PRN GTB MILD PAIN(1-3)OR ELEVATED TEMP Last administered on 11/10/18 01:30; Admin Dose 650 MG; Start 10/31/18 at 00:00 Nystatin (Nystatin Oint) 1 applic BID TOP Last administered on 11/15/18 08:51; Admin Dose 1 APPLIC; Start 10/31/18 at 21:00 Aspirin (Aspirin) 81 mg DAILY PO Last administered on 11/15/18 08:49; Admin Dose 81 MG; Start 11/01/18 at 09:00 Tramadol HCl (Ultram) 50 mg Q4 PRN PO MODERATE PAIN LEVEL 4-6 Last administered on 11/05/18 03:18; Admin Dose 50 MG; Start 11/01/18 at 21:00 Metoprolol Tartrate (Lopressor) 5 mg Q4 PRN IV ELEVATED HEART RATE; Start 11/01/18 at 21:00 Docusate Sodium (Colace Liquid Cup) 100 mg BID GTB Last administered on 11/15/18 08:49; Admin Dose 100 MG; Start 11/02/18 at 09:00 Collagenase (Santyl) 1 applic DAILY TOP Last administered on 11/15/18 08:51; Admin Dose 1 APPLIC; Start 11/03/18 at 09:00 Midodrine (Proamatine) 5 mg TID@,13,17 GTB Last administered on 11/14/18 09:21; Admin Dose 5 MG; Start 11/03/18 at 02:30 Potassium Chloride (Potassium Chloride Pwd/Soln) 20 meq BID GTB Last administered on 11/15/18 08:49; Admin Dose 20 MEQ; Start 11/04/18 at 09:00 Lorazepam (Ativan) 1 mg Q4H PRN IV AGITATION Last administered on 11/05/18 11:36; Admin Dose 1 MG; Start 11/05/18 at 11:30 Morphine Sulfate (morphine) 1 mg Q4H PRN IV SEVERE PAIN LEVEL 7-10 Last administered on 11/05/18 13:07; Admin Dose 1 MG; Start 11/05/18 at 13:30 Colistimethate Sodium (Colistin Inhal) 75 mg BID RESP THERAPY NEB Last administered on 11/15/18 09:41; Admin Dose 75 MG; Start 11/07/18 at 12:00 Metoprolol Tartrate (Lopressor) 12.5 mg BID GTB Last administered on 11/15/18 08:51; Admin Dose 12.5 MG; Start 11/08/18 at 21:00 Gentamicin Sulfate (Gentamicin Iv Per Pharmacy) GENTAMICIN PER PHARMACY NOTE XX ; Start 11/08/18 at 15:00 Piperacillin Sod/ Tazobactam Sod 100 ml @ 200 mls/hr Q8 IVPB Last administered on 11/15/18 14:23; Admin Dose 200 MLS/HR; Start 11/08/18 at 22:00 Furosemide (Lasix) 40 mg DAILY IV Last administered on 11/15/18 08:51; Admin Dose 40 MG; Start 11/13/18 at 10:30 Lansoprazole (Prevacid) 30 mg DAILY@06 GTB Last administered on 11/15/18 05:51; Admin Dose 30 MG; Start 11/14/18 at 06:00 Gentamicin Sulfate 290 mg/ Sodium Chloride 107.25 ml @ 107.25 mls/hr Q36H IVPB Last administered on 11/15/18 02:08; Admin Dose 107.25 MLS/HR; Start 11/15/18 at 02:00 YURY YOON NP Nov 15, 2018 14:35
--- NOTE | 2018-11-15 15:28 | PN ---
Date/Time of Note Date/Time of Note DATE: 11/15/18 TIME: 15:22 Assessment/Plan VTE Prophylaxis Risk score (from Ns)>0 risk: 3 SCD applied (from Ns): Yes Pharmacological prophylaxis: other Lines/Catheters IV Catheter Type (from [facility]): Peripheral IV Urinary Cath still in place: Yes Reason Cath still needed: urinary retention Assessment/Plan Hospital Course Patient remains hemodynamically stable, afebrile, recent CT of the abdomen and pelvis noted, worrisome for left lower lobe pneumonia and acute pancreatitis, still elevated lipase and amylase. Patient is currently on gentamicin, continue to monitor lipase and amylase, GI recommendations. Assessment/Plan -Urinary retention. Dr. Regan is following in urology consultation. Continue Charles catheter. -Hypernatremia, resolved. continue free water flushes where G-tube. -Sepsis with gram-positive cocci bacteremia MDR Proteus UTI. Continue antibiotics per ID. Dr. Matias is following in infection disease consultation. -Non-ST elevation myocardial infarction, continue aspirin, beta-samantha. Dr. Flor is following in cardiology consultation. -Acute pancreatitis. Dr. Walton is following in gastroenterology consultation. -Ventilator dependent respiratory failure with tracheostomy. -Anoxic encephalopathy status post cardiac arrest in 2010 -Ventilator dependent respiratory failure -Dysphagia with PEG -Seizure disorder, continue Keppra. -Schizophrenia -Multiple wounds, continue current wound care, offloading. Further recommendations based on clinical course. Plan of care discussed with Dr. Courtney. Result Diagram: 11/15/18 0550 11/15/18 0550 Results 24hrs Laboratory Tests Test 11/15/18 05:50 White Blood Count 9.4 Red Blood Count 3.31 L Hemoglobin 8.0 L Hematocrit 26.7 L Mean Corpuscular Volume 80.7 L Mean Corpuscular Hemoglobin 24.2 L Mean Corpuscular Hemoglobin Concent 30.0 L Red Cell Distribution Width 20.9 H Platelet Count 361 Mean Platelet Volume 10.6 H Immature Granulocytes % 0.900 H Neutrophils % 74.0 Lymphocytes % 18.4 Monocytes % 5.1 Eosinophils % 1.1 Basophils % 0.5 Nucleated Red Blood Cells % 0.0 Immature Granulocytes # 0.080 H Neutrophils # 6.9 Lymphocytes # 1.7 Monocytes # 0.5 Eosinophils # 0.1 Basophils # 0.1 Nucleated Red Blood Cells # 0.0 Sodium Level 139 Potassium Level 4.0 Chloride Level 103 Carbon Dioxide Level 26 Anion Gap 10 Blood Urea Nitrogen 17 Creatinine 0.56 L Est Glomerular Filtrat Rate mL/min > 60 Glucose Level 122 Calcium Level 9.0 Amylase Level 155 H Lipase 620 H Exam/Review of Systems Exam Vitals Vital Signs Date Temp Pulse Resp B/P (MAP) Pulse Ox O2 O2 Flow FiO2 Time Delivery Rate 11/15/18 98.2 102 18 121/70 99 12:42 (87) 11/15/18 40 05:11 11/14/18 Nasal 07:53 Cannula Intake and Output 11/14/18 11/14/18 11/15/18 1515:00 23:00 07:00 IntakeIntake Total 100 ml 1360 ml 1417.25 ml OutputOutput Total 800 ml 1550 ml BalanceBalance 100 ml 560 ml -132.75 ml Exam Constitutional: frail Neck: supple, other (Tracheostomy) Respiratory: diminished breath sounds Cardiovascular: regular rate and rhythm Gastrointestinal: soft, tender Musculoskeletal: other Extremities: other (Contracted extremities) Neurological: other (Noncommunicative) Skin: other (Multiple wounds) Results Results 24hrs Laboratory Tests Test 11/15/18 05:50 White Blood Count 9.4 Red Blood Count 3.31 L Hemoglobin 8.0 L Hematocrit 26.7 L Mean Corpuscular Volume 80.7 L Mean Corpuscular Hemoglobin 24.2 L Mean Corpuscular Hemoglobin Concent 30.0 L Red Cell Distribution Width 20.9 H Platelet Count 361 Mean Platelet Volume 10.6 H Immature Granulocytes % 0.900 H Neutrophils % 74.0 Lymphocytes % 18.4 Monocytes % 5.1 Eosinophils % 1.1 Basophils % 0.5 Nucleated Red Blood Cells % 0.0 Immature Granulocytes # 0.080 H Neutrophils # 6.9 Lymphocytes # 1.7 Monocytes # 0.5 Eosinophils # 0.1 Basophils # 0.1 Nucleated Red Blood Cells # 0.0 Sodium Level 139 Potassium Level 4.0 Chloride Level 103 Carbon Dioxide Level 26 Anion Gap 10 Blood Urea Nitrogen 17 Creatinine 0.56 L Est Glomerular Filtrat Rate mL/min > 60 Glucose Level 122 Calcium Level 9.0 Amylase Level 155 H Lipase 620 H Medications Medication Current Medications Albuterol (Proventil 0.083% (Neb)) 2.5 mg Q3H RESP THERAPY PRN NEB WHEEZING AND SOB; Start 10/30/18 at 22:00 Albuterol (Proventil 0.083% (Neb)) 2.5 mg Q6H RESP THERAPY PRN NEB WHEEZING AND SOB; Start 10/30/18 at 22:00 Ascorbic Acid (Vitamin C) 500 mg DAILY GTB Last administered on 11/15/18 08:51; Admin Dose 500 MG; Start 10/31/18 at 09:00 Metoclopramide HCl (Reglan) 10 mg Q6H PRN GTB NAUSEA AND/OR VOMITING Last administered on 11/10/18 03:49; Admin Dose 10 MG; Start 10/30/18 at 22:00 Multivitamins (Multivitamin) 30 ml DAILY GTB Last administered on 11/15/18 08:49; Admin Dose 30 ML; Start 10/31/18 at 09:00 Ferrous Sulfate (Feosol Liquid Cup) 300 mg BID PO Last administered on 11/15/18 08:49; Admin Dose 300 MG; Start 10/30/18 at 22:00 Levetiracetam (Keppra Liquid) 1,500 mg BID GTB Last administered on 11/15/18 08:49; Admin Dose 1,500 MG; Start 10/30/18 at 22:30 Acetaminophen (Tylenol Liquid) 650 mg Q4H PRN GTB MILD PAIN(1-3)OR ELEVATED TEMP Last administered on 11/10/18 01:30; Admin Dose 650 MG; Start 10/31/18 at 00:00 Nystatin (Nystatin Oint) 1 applic BID TOP Last administered on 11/15/18 08:51; Admin Dose 1 APPLIC; Start 10/31/18 at 21:00 Aspirin (Aspirin) 81 mg DAILY PO Last administered on 11/15/18 08:49; Admin Dose 81 MG; Start 11/01/18 at 09:00 Tramadol HCl (Ultram) 50 mg Q4 PRN PO MODERATE PAIN LEVEL 4-6 Last administered on 11/05/18 03:18; Admin Dose 50 MG; Start 11/01/18 at 21:00 Metoprolol Tartrate (Lopressor) 5 mg Q4 PRN IV ELEVATED HEART RATE; Start 11/01/18 at 21:00 Docusate Sodium (Colace Liquid Cup) 100 mg BID GTB Last administered on 11/15/18 08:49; Admin Dose 100 MG; Start 11/02/18 at 09:00 Collagenase (Santyl) 1 applic DAILY TOP Last administered on 11/15/18 08:51; Admin Dose 1 APPLIC; Start 11/03/18 at 09:00 Midodrine (Proamatine) 5 mg TID@,13,17 GTB Last administered on 11/14/18 09:21; Admin Dose 5 MG; Start 11/03/18 at 02:30 Potassium Chloride (Potassium Chloride Pwd/Soln) 20 meq BID GTB Last adminis tered on 11/15/18 08:49; Admin Dose 20 MEQ; Start 11/04/18 at 09:00 Lorazepam (Ativan) 1 mg Q4H PRN IV AGITATION Last administered on 11/05/18 11:36; Admin Dose 1 MG; Start 11/05/18 at 11:30 Morphine Sulfate (morphine) 1 mg Q4H PRN IV SEVERE PAIN LEVEL 7-10 Last administered on 11/05/18 13:07; Admin Dose 1 MG; Start 11/05/18 at 13:30 Colistimethate Sodium (Colistin Inhal) 75 mg BID RESP THERAPY NEB Last administered on 11/15/18 09:41; Admin Dose 75 MG; Start 11/07/18 at 12:00 Metoprolol Tartrate (Lopressor) 12.5 mg BID GTB Last administered on 11/15/18 08:51; Admin Dose 12.5 MG; Start 11/08/18 at 21:00 Gentamicin Sulfate (Gentamicin Iv Per Pharmacy) GENTAMICIN PER PHARMACY NOTE XX ; Start 11/08/18 at 15:00 Furosemide (Lasix) 40 mg DAILY IV Last administered on 11/15/18 08:51; Admin Dose 40 MG; Start 11/13/18 at 10:30 Lansoprazole (Prevacid) 30 mg DAILY@06 GTB Last administered on 11/15/18 05:51; Admin Dose 30 MG; Start 11/14/18 at 06:00 Gentamicin Sulfate 290 mg/ Sodium Chloride 107.25 ml @ 107.25 mls/hr Q36H IVPB Last administered on 11/15/18 02:08; Admin Dose 107.25 MLS/HR; Start 11/15/18 at 02:00 JH WISDOM 10, 2019 15:28
[2018-11-16] VITALS (21 sets, daily range): BP systolic 96–114; BP diastolic 63–73; PULSE 82–102; RESP 16–30
[2018-11-16] MEDS: LANSOPRAZOLE 30 MG CAP GTB SCH (06:40)
--- NOTE | 2018-11-16 08:54 | CONS ---
Consult Date/Type/Reason Admit Date/Time October 30, 2018 at 08:15 Initial Consult Date Type of Consultation: Urology Requesting Provider: RICHARD GIRARD MD Date/Time of Note DATE: 11/16/18 TIME: 08:52 Subjective NO acute events - pt comfortable - con't resp RX. no focal ectopy on tele. ROS: No fever, no chills, no nausea, no vomiting, no diarrhea/constipation - per nurse, chronic SOB Objective Vitals Vital Signs Date Temp Pulse Resp B/P (MAP) Pulse Ox O2 O2 Flow FiO2 Time Delivery Rate 11/16/18 88 08:11 11/16/18 98.3 19 114/73 100 Mechanical 07:06 (87) Ventilator Trach Collar 11/16/18 35 05:31 Intake and Output 11/15/18 11/15/18 11/16/18 1515:00 23:00 07:00 IntakeIntake Total 1770 ml OutputOutput Total 2000 ml BalanceBalance -230 ml Exam General: WN/WD/NAD, AOx 0 HEENT: Unicetric/atraumatic/EOMI (does not follow commands) NECK: trach Lymph: no lymphadenopathy HEART: regular with no S3, II/ systolic murmur at apex LUNGS: Coarse sounds ABD: soft, NT, ND, +BS : Intact Neuro: contracted SKIN: chronic changes EXT: trace edema Results/Medications Result Diagram: 11/15/18 0550 11/15/18 0550 Home Meds Reported Medications Ascorbic Acid* (Vitamin C*) 500 Mg Capsule.sa, 500 MG GTB DAILY, CAP 10/30/18 Cran/Vitc/Mannose/Inulin/Brom (Uti-Stat Liquid) 3,875 Mg/30 Ml Liquid, 3875 MG GTB BID 10/30/18 Acetaminophen* (Acetaminophen*) 650 Mg Tablet, 650 MG GTB TRACH CHANGE PRN for PAIN, #30 TAB 10/30/18 Acetaminophen* (Acetaminophen*) 325 Mg Tablet, 650 MG GTB BID PRN for PAIN MANAGEMENT, #30 TAB 10/30/18 Metoclopramide Hcl* (Metoclopramide Hcl*) 10 Mg Tablet, 10 MG GTB Q6H PRN for NAUSEA AND OR VOMITING, TAB 10/30/18 Potassium Chloride* (Potassium Chloride*) 20 Meq/15 Ml Liquid, 20 MEQ GTB DAILY, ML DILUTE WITH 120 CCS OF WATER 10/30/18 Multivitamin* (Daily Value*) 1 Each Tablet, 1 TAB GTB DAILY, TAB 10/30/18 Levetiracetam* (Keppra* (Ped)) 100 Mg/Ml Liq, 1500 MG GTB BID for 30 Days, BOTTLE 10/30/18 Ferrous Sulfate (Ferrous Sulfate) 220 Mg/5 Ml Solution, 300 MG GTB BID 10/30/18 Dexlansoprazole (Dexilant) 60 Mg Cap., 60 MG GTB DAILY, #30 CAP 10/30/18 Cranberry Extract (Cranberry) 425 Mg Capsule, 425 MG GTB BID, CAP 10/30/18 Docusate Sodium* (Colace*) 100 Mg Capsule, 100 MG GTB QHS, #60 CAP 10/30/18 Chlorhexidine Gluconate (Peridex) 473 Ml Mouthwash, 15 ML MM Q12, BOTTLE 10/30/18 Albuterol Sulfate* (Albuterol Sulfate* Neb) 0.083%-3 Ml Neb, 2.5 MG NEB Q6 PRN for WHEEZING AND SOB, #30 VIAL 10/30/18 Albuterol Sulfate* (Albuterol Sulfate* Neb) 0.083%-3 Ml Neb, 2.5 MG NEB Q3H PRN for WHEEZING AND SOB, #30 VIAL 10/30/18 Medications Current Medications Albuterol (Proventil 0.083% (Neb)) 2.5 mg Q3H RESP THERAPY PRN NEB WHEEZING AND SOB; Start 10/30/18 at 22:00 Albuterol (Proventil 0.083% (Neb)) 2.5 mg Q6H RESP THERAPY PRN NEB WHEEZING AND SOB; Start 10/30/18 at 22:00 Ascorbic Acid (Vitamin C) 500 mg DAILY GTB Last administered on 11/15/18at 08:51; Admin Dose 500 MG; Start 10/31/18 at 09:00 Metoclopramide HCl (Reglan) 10 mg Q6H PRN GTB NAUSEA AND/OR VOMITING Last administered on 11/10/18at 03:49; Admin Dose 10 MG; Start 10/30/18 at 22:00 Multivitamins (Multivitamin) 30 ml DAILY GTB Last administered on 11/15/18at 08:49; Admin Dose 30 ML; Start 10/31/18 at 09:00 Ferrous Sulfate (Feosol Liquid Cup) 300 mg BID PO Last administered on 11/15/18 22:54; Admin Dose 300 MG; Start 10/30/18 at 22:00 Levetiracetam (Keppra Liquid) 1,500 mg BID GTB Last administered on 11/15/18 23:14; Admin Dose 1,500 MG; Start 10/30/18 at 22:30 Acetaminophen (Tylenol Liquid) 650 mg Q4H PRN GTB MILD PAIN(1-3)OR ELEVATED TEMP Last administered on 11/10/18 01:30; Admin Dose 650 MG; Start 10/31/18 at 00:00 Nystatin (Nystatin Oint) 1 applic BID TOP Last administered on 11/15/18 22:56; Admin Dose 1 APPLIC; Start 10/31/18 at 21:00 Aspirin (Aspirin) 81 mg DAILY PO Last administered on 11/15/18 08:49; Admin Dose 81 MG; Start 11/01/18 at 09:00 Tramadol HCl (Ultram) 50 mg Q4 PRN PO MODERATE PAIN LEVEL 4-6 Last administered on 11/05/18 03:18; Admin Dose 50 MG; Start 11/01/18 at 21:00 Metoprolol Tartrate (Lopressor) 5 mg Q4 PRN IV ELEVATED HEART RATE; Start 11/01/18 at 21:00 Docusate Sodium (Colace Liquid Cup) 100 mg BID GTB Last administered on 11/15/18 22:54; Admin Dose 100 MG; Start 11/02/18 at 09:00 Collagenase (Santyl) 1 applic DAILY TOP Last administered on 11/15/18 08:51; Admin Dose 1 APPLIC; Start 11/03/18 at 09:00 Midodrine (Proamatine) 5 mg TID@,, GTB Last administered on 11/14/18 09:21; Admin Dose 5 MG; Start 11/03/18 at 02:30 Potassium Chloride (Potassium Chloride Pwd/Soln) 20 meq BID GTB Last administered on 11/15/18 22:55; Admin Dose 20 MEQ; Start 11/04/18 at 09:00 Lorazepam (Ativan) 1 mg Q4H PRN IV AGITATION Last administered on 11/05/18 11:36; Admin Dose 1 MG; Start 11/05/18 at 11:30 Morphine Sulfate (morphine) 1 mg Q4H PRN IV SEVERE PAIN LEVEL 7-10 Last administered on 11/05/18 13:07; Admin Dose 1 MG; Start 11/05/18 at 13:30 Colistimethate Sodium (Colistin Inhal) 75 mg BID RESP THERAPY NEB Last administered on 11/15/18 20:39; Admin Dose 75 MG; Start 11/07/18 at 12:00 Metoprolol Tartrate (Lopressor) 12.5 mg BID GTB Last administered on 11/15/18 22:56; Admin Dose 12.5 MG; Start 11/08/18 at 21:00 Gentamicin Sulfate (Gentamicin Iv Per Pharmacy) GENTAMICIN PER PHARMACY NOTE XX ; Start 11/08/18 at 15:00 Furosemide (Lasix) 40 mg DAILY IV Last administered on 11/15/18at 08:51; Admin Dose 40 MG; Start 11/13/18 at 10:30 Lansoprazole (Prevacid) 30 mg DAILY@06 GTB Last administered on 11/16/18at 06:40; Admin Dose 30 MG; Start 11/14/18 at 06:00 Gentamicin Sulfate 290 mg/ Sodium Chloride 107.25 ml @ 107.25 mls/hr Q36H IVPB Last administered on 11/15/18 02:08; Admin Dose 107.25 MLS/HR; Start 11/15/18 at 02:00 Assessment/Plan Hospital Course (Demo Recall) 1. Non-ST elevation myocardial infarction with up trending cardiac enzymes likely demand infarct in the setting of significant tachycardia and fevers, sepsis- downtrending - no active CP - no intervention planned - VS stable. BP stabl. NO CP. No intervention needed. 2. Abnormal electrocardiogram with nonspecific ST-T abnormalities - treated. BP in good range. TREATED. 3. Tachycardia, ongoing, likely due to the patient's underlying sepsis. Improved with RX. Stable. 4. Sepsis with the Gram-positive cocci group in clusters growing in blood and Gram-negative rods growing in urine. Con't anti-Bx. 5. Urinary tract infection- on meds - no fevers now. 6. Chronic respiratory failure, status post tracheostomy- on vent. Treated, 7. s/p G-tube.- feeds at goal. Comfortbale. 8. Chronic anoxic encephalopathy. Unchanged. 9. Leukocytosis significantly improved - no fevers now. 10. Anemia. 11. Hypernatremia. FABIOLA WATERS MD Nov 16, 2018 08:54
[2018-11-16] MEDS: MULTIVITAMINS 30 ML CUP GTB SCH (08:59)
[2018-11-16] MEDS: DOCUSATE SODIUM 10 MG/ML (10ML CUP) GTB SCH ×2 (09:00→20:52)
[2018-11-16] MEDS: MIDODRINE 5 MG TAB GTB SCH ×3 (09:00→16:19)
[2018-11-16] MEDS: BALSAM PERU/CASTOR OIL 60 GM TUBE TOP SCH (09:00)
[2018-11-16] MEDS: COLISTIMETHATE (25 MG/ML INHAL SYG) NEB SCH ×3 (09:00→21:20)
[2018-11-16] MEDS: COLLAGENASE 5 GM (UD JAR) TOP SCH (09:00)
[2018-11-16] MEDS: LEVETIRACETAM (100 MG/ML) 5ML CUP GTB SCH ×2 (09:02→20:53)
[2018-11-16] MEDS: POTASSIUM CHLORIDE 20 MEQ POWDER FOR ORAL SOLN GTB SCH ×2 (09:03→20:52)
[2018-11-16] MEDS: ASCORBIC ACID 500 MG TAB GTB SCH (09:03)
[2018-11-16] MEDS: FERROUS SULFATE 60 MG/ML 5ML CUP PO SCH ×2 (09:03→20:53)
[2018-11-16] MEDS: METOPROLOL 25 MG TAB GTB SCH ×2 (09:04→20:49)
[2018-11-16] MEDS: ASPIRIN 81 MG TAB PO SCH (09:04)
[2018-11-16] MEDS: FUROSEMIDE 40 MG INJ IV SCH (09:05)
[2018-11-16] MEDS: NYSTATIN 15 GM OINT TOP SCH ×2 (09:07→20:53)
--- NOTE | 2018-11-16 11:11 | CONS ---
Consultation Date/Type/Reason Admit Date/Time October 30, 2018 at 08:15 Initial Consult Date Type of Consult Pulmonary Patient is a 47-year-old male who has been transferred [facility] because of fever. Patient had been diagnosed a UTI with possibly pyonephritis. Currently on appropriate antimicrobial regimen. Because of advanced encephalopathy, patient remains totally noncommunicative. However, patient did not appear to be in any distress. Past medical history; 1. Advanced encephalopathy 2. VDRF 3. G-tube placement. 4. Seizure disorder. Medications; reviewed. Allergies; none. Social history; not available. Family history; not available. Occupational history; patient is on disability. Review of system; unable to be obtained. General exam; young male, on ventilator via tracheostomy, non communicative and unresponsive. Currently no distress. Requesting Provider: RICHARD GIRARD MD Date/Time of Note DATE: 11/16/18 TIME: 11:08 24 HR Interval Summary Free Text/Dictation Patient's condition is stable. General exam; young male, on ventilator via tracheostomy, noncommunicative, currently in no distress. H ENT exam; supple neck, no JVD. No lymphadenopathy. Midline trachea. No thyromegaly. Patient is edentulous. Tracheostomy in place. Chest exam; diminished but clear breath sounds. S1-S2 audible, no murmurs. Re gular rhythm. Abdomen exam; soft, G-tube in place. Nondistended. No organomegaly. Bowel sounds audible. Extremity exam; no peripheral edema. Patient has a flexion contractures. [employer] exam; patient remains noncommunicative. Chest x-ray was reviewed from yesterday which is showing marked improvement in bilateral pneumonia. Ventilator setting; AC of 14, tidal volume 400, PEEP of 5, 50% FiO2. Assessment and recommendations; 1. Patient with history of VDRF and chronic enthesopathy admitted with severe bilateral pneumonia with significant radiological improvement. 2. Stable seizure disorder. 3. History of anemia, and hypertension. Continue current supportive care. Wean down FiO2 to keep O2 saturation around 94%. Consider transfer to [facility] with continuation of antibiotics per ID recommendations. Overall prognosis remains very poor. Exam/Review of Systems Exam Vitals Vital Signs Date Temp Pulse Resp B/P (MAP) Pulse Ox O2 O2 Flow FiO2 Time Delivery Rate 11/16/18 88 08:11 11/16/18 98.3 19 114/73 100 Mechanical 07:06 (87) Ventilator Trach Collar 11/16/18 35 05:31 Intake and Output 11/15/18 11/15/18 11/16/18 1515:00 23:00 07:00 IntakeIntake Total 1770 ml OutputOutput Total 2000 ml BalanceBalance -230 ml Results Result Diagram: 11/15/18 0550 11/15/18 0550 Medications Medication Current Medications Albuterol (Proventil 0.083% (Neb)) 2.5 mg Q3H RESP THERAPY PRN NEB WHEEZING AND SOB; Start 10/30/18 at 22:00 Albuterol (Proventil 0.083% (Neb)) 2.5 mg Q6H RESP THERAPY PRN NEB WHEEZING AND SOB; Start 10/30/18 at 22:00 Ascorbic Acid (Vitamin C) 500 mg DAILY GTB Last administered on 11/16/18 09:03; Admin Dose 500 MG; Start 10/31/18 at 09:00 Metoclopramide HCl (Reglan) 10 mg Q6H PRN GTB NAUSEA AND/OR VOMITING Last administered on 11/10/18 03:49; Admin Dose 10 MG; Start 10/30/18 at 22:00 Multivitamins (Multivitamin) 30 ml DAILY GTB Last administered on 11/16/18 08:59; Admin Dose 30 ML; Start 10/31/18 at 09:00 Ferrous Sulfate (Feosol Liquid Cup) 300 mg BID PO Last administered on 11/16/18 09:03; Admin Dose 300 MG; Start 10/30/18 at 22:00 Levetiracetam (Keppra Liquid) 1,500 mg BID GTB Last administered on 11/16/18 09:02; Admin Dose 1,500 MG; Start 10/30/18 at 22:30 Acetaminophen (Tylenol Liquid) 650 mg Q4H PRN GTB MILD PAIN(1-3)OR ELEVATED TEMP Last administered on 11/10/18 01:30; Admin Dose 650 MG; Start 10/31/18 at 00:00 Nystatin (Nystatin Oint) 1 applic BID TOP Last administered on 11/16/18 09:07; Admin Dose 1 APPLIC; Start 10/31/18 at 21:00 Aspirin (Aspirin) 81 mg DAILY PO Last administered on 11/16/18 09:04; Admin Dose 81 MG; Start 11/01/18 at 09:00 Tramadol HCl (Ultram) 50 mg Q4 PRN PO MODERATE PAIN LEVEL 4-6 Last administered on 11/05/18 03:18; Admin Dose 50 MG; Start 11/01/18 at 21:00 Metoprolol Tartrate (Lopressor) 5 mg Q4 PRN IV ELEVATED HEART RATE; Start 11/01/18 at 21:00 Docusate Sodium (Colace Liquid Cup) 100 mg BID GTB Last administered on 11/15/18 22:54; Admin Dose 100 MG; Start 11/02/18 at 09:00 Collagenase (Santyl) 1 applic DAILY TOP Last administered on 11/16/18 09:00; Admin Dose 1 APPLIC; Start 11/03/18 at 09:00 Midodrine (Proamatine) 5 mg TID@,13,17 GTB Last administered on 11/14/18 09:21; Admin Dose 5 MG; Start 11/03/18 at 02:30 Potassium Chloride (Potassium Chloride Pwd/Soln) 20 meq BID GTB Last adm inistered on 11/16/18 09:03; Admin Dose 20 MEQ; Start 11/04/18 at 09:00 Lorazepam (Ativan) 1 mg Q4H PRN IV AGITATION Last administered on 11/05/18 11:36; Admin Dose 1 MG; Start 11/05/18 at 11:30 Morphine Sulfate (morphine) 1 mg Q4H PRN IV SEVERE PAIN LEVEL 7-10 Last administered on 11/05/18 13:07; Admin Dose 1 MG; Start 11/05/18 at 13:30 Colistimethate Sodium (Colistin Inhal) 75 mg BID RESP THERAPY NEB Last administered on 11/15/18 20:39; Admin Dose 75 MG; Start 11/07/18 at 12:00 Metoprolol Tartrate (Lopressor) 12.5 mg BID GTB Last administered on 11/16/18 09:04; Admin Dose 12.5 MG; Start 11/08/18 at 21:00 Gentamicin Sulfate (Gentamicin Iv Per Pharmacy) GENTAMICIN PER PHARMACY NOTE XX ; Start 11/08/18 at 15:00 Furosemide (Lasix) 40 mg DAILY IV Last administered on 6/11/19at 09:05; Admin Dose 40 MG; Start 11/13/18 at 10:30 Lansoprazole (Prevacid) 30 mg DAILY@06 GTB Last administered on 11/16/18at 06:40; Admin Dose 30 MG; Start 11/14/18 at 06:00 Gentamicin Sulfate 290 mg/ Sodium Chloride 107.25 ml @ 107.25 mls/hr Q36H IVPB Last administered on 11/15/18at 02:08; Admin Dose 107.25 MLS/HR; Start 11/15/18 at 02:00 MI JEFFERS Nov 16, 2018 11:11
--- NOTE | 2018-11-16 12:15 | CONS ---
Assessment/Plan Assessment/Plan Hospital Course (Demo Recall) No events, looks comfortable, afebrile Antimicrobials: Gentamicin Microbiology: Blood culture on admission grew coag negative staph species, urine culture grew Proteus mirabilis. Sputum culture grew Acinetobacter, Pseudomonas and Klebsiella ESBL susceptible to gentamicin CT of the chest on admission revealed right lower lobe dense wench shaped consolidation with moderate bilateral peribronchial nodular opacities consistent with multifocal pneumonia. Hydronephrosis of the right kidney of mild severity secondary to partial visualization of a 10 mm stone in the right proximal ureter with wall thickening and inflammation of the right renal pelvic wall and proximal ureteral wall. Please see full report in the chart Physical examination: Chronically ill-appearing vegetative middle-aged man who is in no distress. Head atraumatic normocephalic neck is supple tracheostomy present chest rise symmetrical breath sounds diminished bases. Heart: S1-S2. Abdomen soft bowel sounds hypoactive. Extremities wasted contractured Assessment: 1. Severe sepsis, present on admission 2. Coag negative staph bacteremia, possibly line sepsis as patient had PICC line on admission that was discontinued 3. Multifocal healthcare associated pneumonia 4. Urinary tract infection with obstructive uropathy 5. Vegetative 6. Elevated lipase ?pancreatitis 7. DNR Plan: Clinically unchanged, continue antibiotics, follow GI/pulmonary recommendations Consultation Date/Type/Reason Admit Date/Time October 30, 2018 at 08:15 Initial Consult Date Type of Consult id Requesting Provider: RICHARD GIRARD MD Date/Time of Note DATE: 11/16/18 TIME: 12:14 Exam/Review of Systems Exam Vitals Vital Signs Date Temp Pulse Resp B/P (MAP) Pulse Ox O2 O2 Flow FiO2 Time Delivery Rate 11/16/18 98.4 88 20 108/64 95 Mechanical 11:41 (79) Ventilator Trach Collar 11/16/18 35 05:31 Intake and Output 11/15/18 11/15/18 11/16/18 1515:00 23:00 07:00 IntakeIntake Total 1770 ml OutputOutput Total 2000 ml BalanceBalance -230 ml Results Result Diagram: 11/15/18 0550 11/15/18 0550 Medications Medication Current Medications Albuterol (Proventil 0.083% (Neb)) 2.5 mg Q3H RESP THERAPY PRN NEB WHEEZING AND SOB; Start 10/30/18 at 22:00 Albuterol (Proventil 0.083% (Neb)) 2.5 mg Q6H RESP THERAPY PRN NEB WHEEZING AND SOB; Start 10/30/18 at 22:00 Ascorbic Acid (Vitamin C) 500 mg DAILY GTB Last administered on 11/16/18 09:03; Admin Dose 500 MG; Start 10/31/18 at 09:00 Metoclopramide HCl (Reglan) 10 mg Q6H PRN GTB NAUSEA AND/OR VOMITING Last administered on 11/10/18 03:49; Admin Dose 10 MG; Start 10/30/18 at 22:00 Multivitamins (Multivitamin) 30 ml DAILY GTB Last administered on 11/16/18 08:59; Admin Dose 30 ML; Start 10/31/18 at 09:00 Ferrous Sulfate (Feosol Liquid Cup) 300 mg BID PO Last administered on 11/16/18 09:03; Admin Dose 300 MG; Start 10/30/18 at 22:00 Levetiracetam (Keppra Liquid) 1,500 mg BID GTB Last administered on 11/16/18 09:02; Admin Dose 1,500 MG; Start 10/30/18 at 22:30 Acetaminophen (Tylenol Liquid) 650 mg Q4H PRN GTB MILD PAIN(1-3)OR ELEVATED TEMP Last administered on 11/10/18 01:30; Admin Dose 650 MG; Start 10/31/18 at 00:00 Nystatin (Nystatin Oint) 1 applic BID TOP Last administered on 11/16/18 09:07; Admin Dose 1 APPLIC; Start 10/31/18 at 21:00 Aspirin (Aspirin) 81 mg DAILY PO Last administered on 11/16/18 09:04; Admin Dose 81 MG; Start 11/01/18 at 09:00 Tramadol HCl (Ultram) 50 mg Q4 PRN PO MODERATE PAIN LEVEL 4-6 Last administered on 11/05/18 03:18; Admin Dose 50 MG; Start 11/01/18 at 21:00 Metoprolol Tartrate (Lopressor) 5 mg Q4 PRN IV ELEVATED HEART RATE; Start 11/01/18 at 21:00 Docusate Sodium (Colace Liquid Cup) 100 mg BID GTB Last administered on 11/15/18 22:54; Admin Dose 100 MG; Start 11/02/18 at 09:00 Collagenase (Santyl) 1 applic DAILY TOP Last administered on 11/16/18 09:00; Admin Dose 1 APPLIC; Start 11/03/18 at 09:00 Midodrine (Proamatine) 5 mg TID@,13,17 GTB Last administered on 11/14/18 09:21; Admin Dose 5 MG; Start 11/03/18 at 02:30 Potassium Chloride (Potassium Chloride Pwd/Soln) 20 meq BID GTB Last administe red on 11/16/18 09:03; Admin Dose 20 MEQ; Start 11/04/18 at 09:00 Lorazepam (Ativan) 1 mg Q4H PRN IV AGITATION Last administered on 11/05/18 11:36; Admin Dose 1 MG; Start 11/05/18 at 11:30 Morphine Sulfate (morphine) 1 mg Q4H PRN IV SEVERE PAIN LEVEL 7-10 Last administered on 11/05/18 13:07; Admin Dose 1 MG; Start 11/05/18 at 13:30 Colistimethate Sodium (Colistin Inhal) 75 mg BID RESP THERAPY NEB Last administered on 11/15/18 20:39; Admin Dose 75 MG; Start 11/07/18 at 12:00 Metoprolol Tartrate (Lopressor) 12.5 mg BID GTB Last administered on 11/16/18 09:04; Admin Dose 12.5 MG; Start 11/08/18 at 21:00 Gentamicin Sulfate (Gentamicin Iv Per Pharmacy) GENTAMICIN PER PHARMACY NOTE XX ; Start 11/08/18 at 15:00 Furosemide (Lasix) 40 mg DAILY IV Last administered on 11/16/18 09:05; Admin Dose 40 MG; Start 11/13/18 at 10:30 Lansoprazole (Prevacid) 30 mg DAILY@06 GTB Last administered on 11/16/18 06:40; Admin Dose 30 MG; Start 11/14/18 at 06:00 Gentamicin Sulfate 290 mg/ Sodium Chloride 107.25 ml @ 107.25 mls/hr Q36H IVPB Last administered on 11/15/18 02:08; Admin Dose 107.25 MLS/HR; Start 11/15/18 at 02:00 YURY YOON NP Nov 16, 2018 12:15
[2018-11-16] MEDS: GENTAMICIN 290 MG in SOD CHLORIDE 0.9% 100 ML IVPB SCH (13:45)
--- NOTE | 2018-11-16 15:57 | PN ---
Date/Time of Note Date/Time of Note DATE: 11/16/18 TIME: 15:48 Assessment/Plan VTE Prophylaxis Risk score (from [facility])>0 risk: 4 SCD applied (from [facility]): Yes Pharmacological prophylaxis: NA/contraindicated Pharm contraindication: anticoag not tolerated Lines/Catheters IV Catheter Type (from [facility]): PICC Line Central line still needed: Yes Urinary Cath still in place: Yes Reason Cath still needed: urinary retention Assessment/Plan Hospital Course Patient remains hemodynamically stable, afebrile, tolerates G-tube feeding without nausea vomiting per nursing staff, CT of the abdomen and pelvis noted from 11/13/18 with left lower lobe pneumonia and acute pancreatitis, still elevated lipase and amylase. Patient is currently on gentamicin IV and tobramycin inhalation, f/up GI recommendations. Assessment/Plan -Urinary retention. Dr. Regan is following in urology consultation. Continue Charles catheter. -Hypernatremia, resolved. continue free water flushes where G-tube. -Sepsis with gram-positive cocci bacteremia MDR Proteus UTI. Continue antibiotics per ID. Dr. Matias is following in infection disease consultation. -Non-ST elevation myocardial infarction, continue aspirin, beta-samantha. Dr. Flor is following in cardiology consultation. -Acute pancreatitis. Dr. Walton is following in gastroenterology consultation. -Ventilator dependent respiratory failure with tracheostomy. -Anoxic encephalopathy status post cardiac arrest in 2009 -Ventilator dependent respiratory failure -Dysphagia with PEG -Seizure disorder, continue Keppra. -Schizophrenia -Multiple wounds, continue current wound care, offloading. Further recommendations based on clinical course. Plan of care discussed with Dr. Courtney. Result Diagram: 11/15/18 0550 11/15/18 0550 Exam/Review of Systems Exam Vitals Vital Signs Date Temp Pulse Resp B/P (MAP) Pulse Ox O2 O2 Flow FiO2 Time Delivery Rate 11/16/18 82 12:14 11/16/18 98.4 20 108/64 95 Mechanical 11:41 (79) Ventilator Trach Collar 11/16/18 35 05:31 Intake and Output 11/15/18 11/15/18 11/16/18 1515:00 23:00 07:00 IntakeIntake Total 1770 ml OutputOutput Total 2000 ml BalanceBalance -230 ml Exam Constitutional: frail Neck: supple, other (Tracheostomy) Respiratory: diminished breath sounds Cardiovascular: regular rate and rhythm Gastrointestinal: soft, tender Musculoskeletal: other Extremities: other (Contracted extremities) Neurological: other (Noncommunicative) Skin: other (Multiple wounds) Medications Medication Current Medications Albuterol (Proventil 0.083% (Neb)) 2.5 mg Q3H RESP THERAPY PRN NEB WHEEZING AND SOB; Start 10/30/18 at 22:00 Albuterol (Proventil 0.083% (Neb)) 2.5 mg Q6H RESP THERAPY PRN NEB WHEEZING AND SOB; Start 10/30/18 at 22:00 Ascorbic Acid (Vitamin C) 500 mg DAILY GTB Last administered on 11/16/18 09:03; Admin Dose 500 MG; Start 10/31/18 at 09:00 Metoclopramide HCl (Reglan) 10 mg Q6H PRN GTB NAUSEA AND/OR VOMITING Last administered on 11/10/18 03:49; Admin Dose 10 MG; Start 10/30/18 at 22:00 Multivitamins (Multivitamin) 30 ml DAILY GTB Last administered on 11/16/18 08:59; Admin Dose 30 ML; Start 10/31/18 at 09:00 Ferrous Sulfate (Feosol Liquid Cup) 300 mg BID PO Last administered on 11/16/18 09:03; Admin Dose 300 MG; Start 10/30/18 at 22:00 Levetiracetam (Keppra Liquid) 1,500 mg BID GTB Last administered on 11/16/18 09:02; Admin Dose 1,500 MG; Start 10/30/18 at 22:30 Acetaminophen (Tylenol Liquid) 650 mg Q4H PRN GTB MILD PAIN(1-3)OR ELEVATED TEMP Last administered on 11/10/18 01:30; Admin Dose 650 MG; Start 10/31/18 at 00:00 Nystatin (Nystatin Oint) 1 applic BID TOP Last administered on 11/16/18 09:07; Admin Dose 1 APPLIC; Start 10/31/18 at 21:00 Aspirin (Aspirin) 81 mg DAILY PO Last administered on 11/16/18 09:04; Admin Dose 81 MG; Start 11/01/18 at 09:00 Tramadol HCl (Ultram) 50 mg Q4 PRN PO MODERATE PAIN LEVEL 4-6 Last administered on 11/05/18 03:18; Admin Dose 50 MG; Start 11/01/18 at 21:00 Metoprolol Tartrate (Lopressor) 5 mg Q4 PRN IV ELEVATED HEART RATE; Start 11/01 at 21:00 Docusate Sodium (Colace Liquid Cup) 100 mg BID GTB Last administered on 11/15/18 22:54; Admin Dose 100 MG; Start 11/02/18 at 09:00 Collagenase (Santyl) 1 applic DAILY TOP Last administered on 11/16/18 09:00; Admin Dose 1 APPLIC; Start 11/03/18 at 09:00 Midodrine (Proamatine) 5 mg TID@,,17 GTB Last administered on 11/14/18 09:21; Admin Dose 5 MG; Start 11/03/18 at 02:30 Potassium Chloride (Potassium Chloride Pwd/Soln) 20 meq BID GTB Last administered on 11/16/18 09:03; Admin Dose 20 MEQ; Start 11/04/18 at 09:00 Lorazepam (Ativan) 1 mg Q4H PRN IV AGITATION Last administered on 11/05/18 11:36; Admin Dose 1 MG; Start 11/05/18 at 11:30 Morphine Sulfate (morphine) 1 mg Q4H PRN IV SEVERE PAIN LEVEL 7-10 Last administered on 11/05/18 13:07; Admin Dose 1 MG; Start 11/05/18 at 13:30 Colistimethate Sodium (Colistin Inhal) 75 mg BID RESP THERAPY NEB Last administered on 11/16/18 12:28; Admin Dose 75 MG; Start 11/07/18 at 12:00 Metoprolol Tartrate (Lopressor) 12.5 mg BID GTB Last administered on 11/16/18 09:04; Admin Dose 12.5 MG; Start 11/08/18 at 21:00 Gentamicin Sulfate (Gentamicin Iv Per Pharmacy) GENTAMICIN PER PHARMACY NOTE XX ; Start 11/08/18 at 15:00 Furosemide (Lasix) 40 mg DAILY IV Last administered on 11/16/18 09:05; Admin Dose 40 MG; Start 11/13/18 at 10:30 Lansoprazole (Prevacid) 30 mg DAILY@06 GTB Last administered on 11/16/18 06:40; Admin Dose 30 MG; Start 11/14/18 at 06:00 Gentamicin Sulfate 290 mg/ Sodium Chloride 107.25 ml @ 107.25 mls/hr Q36H IVPB Last administered on 11/16/18at 13:45; Admin Dose 107.25 MLS/HR; Start 11/15/18 at 02:00 JH WISDOM Nov 16, 2018 15:57
[2018-11-17] VITALS (17 sets, daily range): BP systolic 98–107; BP diastolic 59–63; PULSE 88–120; RESP 18–23
[2018-11-17] MEDS: LANSOPRAZOLE 30 MG CAP GTB SCH (05:39)
[2018-11-17] MEDS: COLISTIMETHATE (25 MG/ML INHAL SYG) NEB SCH (09:00)
[2018-11-17] MEDS: MIDODRINE 5 MG TAB GTB SCH ×3 (09:00→17:00)
[2018-11-17] MEDS: DOCUSATE SODIUM 10 MG/ML (10ML CUP) GTB SCH (09:01)
[2018-11-17] MEDS: LEVETIRACETAM (100 MG/ML) 5ML CUP GTB SCH (09:01)
[2018-11-17] MEDS: FERROUS SULFATE 60 MG/ML 5ML CUP PO SCH (09:01)
[2018-11-17] MEDS: POTASSIUM CHLORIDE 20 MEQ POWDER FOR ORAL SOLN GTB SCH (09:02)
[2018-11-17] MEDS: ASCORBIC ACID 500 MG TAB GTB SCH (09:02)
[2018-11-17] MEDS: ASPIRIN 81 MG TAB PO SCH (09:02)
[2018-11-17] MEDS: METOPROLOL 25 MG TAB GTB SCH (09:03)
[2018-11-17] MEDS: MULTIVITAMINS 30 ML CUP GTB SCH (09:03)
[2018-11-17] MEDS: COLLAGENASE 5 GM (UD JAR) TOP SCH (09:03)
[2018-11-17] MEDS: FUROSEMIDE 40 MG INJ IV SCH (09:04)
[2018-11-17] MEDS: BALSAM PERU/CASTOR OIL 60 GM TUBE TOP SCH (09:07)
[2018-11-17] MEDS: NYSTATIN 15 GM OINT TOP SCH (09:07)
--- NOTE | 2018-11-17 10:45 | CONS ---
Assessment/Plan Assessment/Plan Assessment/Plan (Daily) Ventilator setting; AC of 14, tidal volume 400, PEEP of 5, 30% FiO2. Assessment and recommendations; 1. Patient with history of VDRF and chronic encephalopathy admitted with severe bilateral pneumonia with significant clinical and radiological improvement. 2. Stable seizure disorder. 3. Stable hypertension. Continue current supportive care. Consider discharge to rehab center with continuation of antibiotics per ID recommendations. Overall prognosis remains poor. Consultation Date/Type/Reason Admit Date/Time October 30, 2018 at 08:15 Initial Consult Date Type of Consult Pulmonary Patient is a 47-year-old male who has been transferred from [facility] because of fever. Patient had been diagnosed a UTI with possibly pyonephritis. Currently on appropriate antimicrobial regimen. Because of advanced encephalop athy, patient remains totally noncommunicative. However, patient did not appear to be in any distress. Past medical history; 1. Advanced encephalopathy 2. VDRF 3. G-tube placement. 4. Seizure disorder. Medications; reviewed. Allergies; none. Social history; not available. Family history; not available. Occupational history; patient is on disability. Review of system; unable to be obtained. General exam; young male, on ventilator via tracheostomy, non communicative and unresponsive. Currently no distress. Requesting Provider: RICHARD GIRARD MD Date/Time of Note DATE: 11/17/18 TIME: 10:42 24 HR Interval Summary Free Text/Dictation Patient's condition is stable. Has remained hemodynamically stable. Exam; young male, on ventilator via tracheostomy, unresponsive and noncommunicative. Currently in no distress. Exam/Review of Systems Exam Vitals Vital Signs Date Temp Pulse Resp B/P (MAP) Pulse Ox O2 O2 Flow FiO2 Time Delivery Rate 11/17/18 95 08:00 11/17/18 98.1 23 107/63 96 Mechanical 07:20 (78) Ventilator 11/17/18 30 05:27 Intake and Output 11/16/18 11/16/18 11/17/18 1515:00 23:00 07:00 IntakeIntake Total 1260 ml 1360 ml OutputOutput Total 1200 ml 350 ml BalanceBalance 60 ml 1010 ml Exam H EENT exam; supple neck, no JVD. No lymphadenopathy. Midline trachea. No thyromegaly. Patient is edentulous. Tracheostomy in place. Insertion site is clean. Chest exam; diminished breath sounds bilaterally. S1-S2 audible, no murmurs. Regular rhythm. Abdomen exam; soft, no organomegaly. G-tube in place. Bowel sounds are audible. Extremity exam; no peripheral edema. Patient does have flexion contractures in all 4 extremities. [employer] exam; patient remains unresponsive and noncommunicative. But remains awake. Results Result Diagram: 11/17/18 0536 11/17/18 0536 Results 24hrs Laboratory Tests Test 11/17/18 05:36 White Blood Count 8.0 Red Blood Count 3.50 L Hemoglobin 8.6 L Hematocrit 28.6 L Mean Corpuscular Volume 81.7 L Mean Corpuscular Hemoglobin 24.6 L Mean Corpuscular Hemoglobin Concent 30.1 L Red Cell Distribution Width 20.9 H Platelet Count 335 Mean Platelet Volume 10.6 H Immature Granulocytes % 0.500 H Neutrophils % 64.3 Lymphocytes % 25.6 Monocytes % 6.8 Eosinophils % 2.0 Basophils % 0.8 Nucleated Red Blood Cells % 0.0 Immature Granulocytes # 0.040 H Neutrophils # 5.2 Lymphocytes # 2.1 Monocytes # 0.5 Eosinophils # 0.2 Basophils # 0.1 Nucleated Red Blood Cells # 0.0 Sodium Level 139 Potassium Level 3.9 Chloride Level 102 Carbon Dioxide Level 28 Anion Gap 9 Blood Urea Nitrogen 18 Creatinine 0.56 L Est Glomerular Filtrat Rate mL/min > 60 Glucose Level 106 Calcium Level 9.8 Total Bilirubin 0.4 Direct Bilirubin 0.00 Indirect Bilirubin 0.4 Aspartate Amino Transf (AST/SGOT) 40 Alanine Aminotransferase (ALT/SGPT) 18 Alkaline Phosphatase 104 Total Protein 8.1 Albumin 3.9 Globulin 4.20 H Albumin/Globulin Ratio 0.92 Medications Medication Current Medications Albuterol (Proventil 0.083% (Neb)) 2.5 mg Q3H RESP THERAPY PRN NEB WHEEZING AND SOB; Start 10/30/18 at 22:00 Albuterol (Proventil 0.083% (Neb)) 2.5 mg Q6H RESP THERAPY PRN NEB WHEEZING AND SOB; Start 10/30/18 at 22:00 Ascorbic Acid (Vitamin C) 500 mg DAILY GTB Last administered on 11/17/18at 09:02; Admin Dose 500 MG; Start 10/31/18 at 09:00 Metoclopramide HCl (Reglan) 10 mg Q6H PRN GTB NAUSEA AND/OR VOMITING Last administered on 11/10/18 03:49; Admin Dose 10 MG; Start 10/30/18 at 22:00 Multivitamins (Multivitamin) 30 ml DAILY GTB Last administered on 11/17/18 09:03; Admin Dose 30 ML; Start 10/31/18 at 09:00 Ferrous Sulfate (Feosol Liquid Cup) 300 mg BID PO Last administered on 09:01; Admin Dose 300 MG; Start 10/30/18 at 22:00 Levetiracetam (Keppra Liquid) 1,500 mg BID GTB Last administered on 11/17/18 09:01; Admin Dose 1,500 MG; Start 10/30/18 at 22:30 Acetaminophen (Tylenol Liquid) 650 mg Q4H PRN GTB MILD PAIN(1-3)OR ELEVATED TEMP Last administered on 11/10/18 01:30; Admin Dose 650 MG; Start 10/31/18 at 00:00 Nystatin (Nystatin Oint) 1 applic BID TOP Last administered on 11/17/18 09:07; Admin Dose 1 APPLIC; Start 10/31/18 at 21:00 Aspirin (Aspirin) 81 mg DAILY PO Last administered on 11/17/18 09:02; Admin Dose 81 MG; Start 11/01/18 at 09:00 Tramadol HCl (Ultram) 50 mg Q4 PRN PO MODERATE PAIN LEVEL 4-6 Last administered on 11/05/18 03:18; Admin Dose 50 MG; Start 11/01/18 at 21:00 Metoprolol Tartrate (Lopressor) 5 mg Q4 PRN IV ELEVATED HEART RATE; Start 11/01/18 at 21:00 Docusate Sodium (Colace Liquid Cup) 100 mg BID GTB Last administered on 11/17/18 09:01; Admin Dose 100 MG; Start 11/02/18 at 09:00 Collagenase (Santyl) 1 applic DAILY TOP Last administered on 11/17/18 09:03; Admin Dose 1 APPLIC; Start 11/03/18 at 09:00 Midodrine (Proamatine) 5 mg TID@,,17 GTB Last administered on 11/16/18 16:19; Admin Dose 5 MG; Start 11/03/18 at 02:30 Potassium Chloride (Potassium Chloride Pwd/Soln) 20 meq BID GTB Last administered on 11/17/18 09:02; Admin Dose 20 MEQ; Start 11/04/18 at 09:00 Lorazepam (Ativan) 1 mg Q4H PRN IV AGITATION Last administered on 11/05/18 11:36; Admin Dose 1 MG; Start 11/05/18 at 11:30 Morphine Sulfate (morphine) 1 mg Q4H PRN IV SEVERE PAIN LEVEL 7-10 Last administered on 11/05/18 13:07; Admin Dose 1 MG; Start 11/05/18 at 13:30 Colistimethate Sodium (Colistin Inhal) 75 mg BID RESP THERAPY NEB Last administered on 11/16/18 21:20; Admin Dose 75 MG; Start 11/07/18 at 12:00 Metoprolol Tartrate (Lopressor) 12.5 mg BID GTB Last administered on 11/17/18 09:03; Admin Dose 12.5 MG; Start 11/08/18 at 21:00 Gentamicin Sulfate (Gentamicin Iv Per Pharmacy) GENTAMICIN PER PHARMACY NOTE XX ; Start 11/08/18 at 15:00 Furosemide (Lasix) 40 mg DAILY IV Last administered on 11/17/18 09:04; Admin Dose 40 MG; Start 11/13/18 at 10:30 Lansoprazole (Prevacid) 30 mg DAILY@06 GTB Last administered on 11/17/18 0 5:39; Admin Dose 30 MG; Start 11/14/18 at 06:00 Gentamicin Sulfate 290 mg/ Sodium Chloride 107.25 ml @ 107.25 mls/hr Q36H IVPB Last administered on 11/16/18 13:45; Admin Dose 107.25 MLS/HR; Start 11/15/18 at 02:00 MI JEFFERS 12, 2019 10:45
--- NOTE | 2018-11-17 14:16 | CONS ---
Assessment/Plan Assessment/Plan Hospital Course (Demo Recall) No events, looks comfortable, afebrile Antimicrobials: Gentamicin Microbiology: Blood culture on admission grew coag negative staph species, urine culture grew Proteus mirabilis. Sputum culture grew Acinetobacter, Pseudomonas and Klebsiella ESBL susceptible to gentamicin CT of the chest on admission revealed right lower lobe dense wench shaped consolidation with moderate bilateral peribronchial nodular opacities consistent with multifocal pneumonia. Hydronephrosis of the right kidney of mild severity secondary to partial visualization of a 10 mm stone in the right proximal ureter with wall thickening and inflammation of the right renal pelvic wall and proximal ureteral wall. Please see full report in the chart Physical examination: Chronically ill-appearing vegetative middle-aged man who is in no distress. Head atraumatic normocephalic neck is supple tracheostomy present chest rise symmetrical breath sounds diminished bases. Heart: S1-S2. Abdomen soft bowel sounds hypoactive. Extremities wasted contractured Assessment: 1. Severe sepsis, present on admission 2. Coag negative staph bacteremia, possibly line sepsis as patient had PICC line on admission that was discontinued 3. Multifocal healthcare associated pneumonia 4. Urinary tract infection with obstructive uropathy 5. Vegetative 6. Elevated lipase ?pancreatitis 7. DNR Plan: Clinically unchanged, continue antibiotics, pending Doe [email or web address] Consultation Date/Type/Reason Admit Date/Time October 30, 2018 at 08:15 Initial Consult Date Type of Consult id Requesting Provider: RICHARD GIRARD MD Date/Time of Note DATE: 11/17/18 TIME: 14:15 Exam/Review of Systems Exam Vitals Vital Signs Date Temp Pulse Resp B/P (MAP) Pulse Ox O2 O2 Flow FiO2 Time Delivery Rate 11/17/18 97.9 99 22 103/59 96 Mechanical 11:38 (74) Ventilator 11/17/18 30 05:27 Intake and Output 11/16/18 11/16/18 11/17/18 1515:00 23:00 07:00 IntakeIntake Total 1260 ml 1360 ml OutputOutput Total 1200 ml 350 ml BalanceBalance 60 ml 1010 ml Results Result Diagram: 11/17/1836 11/17/18 0536 Results 24hrs Laboratory Tests Test 11/17/18 05:36 White Blood Count 8.0 Red Blood Count 3.50 L Hemoglobin 8.6 L Hematocrit 28.6 L Mean Corpuscular Volume 81.7 L Mean Corpuscular Hemoglobin 24.6 L Mean Corpuscular Hemoglobin Concent 30.1 L Red Cell Distribution Width 20.9 H Platelet Count 335 Mean Platelet Volume 10.6 H Immature Granulocytes % 0.500 H Neutrophils % 64.3 Lymphocytes % 25.6 Monocytes % 6.8 Eosinophils % 2.0 Basophils % 0.8 Nucleated Red Blood Cells % 0.0 Immature Granulocytes # 0.040 H Neutrophils # 5.2 Lymphocytes # 2.1 Monocytes # 0.5 Eosinophils # 0.2 Basophils # 0.1 Nucleated Red Blood Cells # 0.0 Sodium Level 139 Potassium Level 3.9 Chloride Level 102 Carbon Dioxide Level 28 Anion Gap 9 Blood Urea Nitrogen 18 Creatinine 0.56 L Est Glomerular Filtrat Rate mL/min > 60 Glucose Level 106 Calcium Level 9.8 Total Bilirubin 0.4 Direct Bilirubin 0.00 Indirect Bilirubin 0.4 Aspartate Amino Transf (AST/SGOT) 40 Alanine Aminotransferase (ALT/SGPT) 18 Alkaline Phosphatase 104 Total Protein 8.1 Albumin 3.9 Globulin 4.20 H Albumin/Globulin Ratio 0.92 Medications Medication Current Medications Albuterol (Proventil 0.083% (Neb)) 2.5 mg Q3H RESP THERAPY PRN NEB WHEEZING AND SOB; Start 10/30/18 at 22:00 Albuterol (Proventil 0.083% (Neb)) 2.5 mg Q6H RESP THERAPY PRN NEB WHEEZING AND SOB; Start 10/30/18 at 22:00 Ascorbic Acid (Vitamin C) 500 mg DAILY GTB Last administered on 11/17/18 09:02; Admin Dose 500 MG; Start 10/31/18 at 09:00 Metoclopramide HCl (Reglan) 10 mg Q6H PRN GTB NAUSEA AND/OR VOMITING Last administered on 11/10/18 03:49; Admin Dose 10 MG; Start 10/30/18 at 22:00 Multivitamins (Multivitamin) 30 ml DAILY GTB Last administered on 11/17/18 09:03; Admin Dose 30 ML; Start 10/31/18 at 09:00 Ferrous Sulfate (Feosol Liquid Cup) 300 mg BID PO Last administered on 11/17/18 09:01; Admin Dose 300 MG; Start 10/30/18 at 22:00 Levetiracetam (Keppra Liquid) 1,500 mg BID GTB Last administered on 11/17/18 09:01; Admin Dose 1,500 MG; Start 10/30/18 at 22:30 Acetaminophen (Tylenol Liquid) 650 mg Q4H PRN GTB MILD PAIN(1-3)OR ELEVATED TEMP Last administered on 11/10/18 01:30; Admin Dose 650 MG; Start 10/31/18 at 00:00 Nystatin (Nystatin Oint) 1 applic BID TOP Last administered on 11/17/18 09:07; Admin Dose 1 APPLIC; Start 10/31/18 at 21:00 Aspirin (Aspirin) 81 mg DAILY PO Last administered on 11/17/18 09:02; Admin Dose 81 MG; Start 11/01/18 at 09:00 Tramadol HCl (Ultram) 50 mg Q4 PRN PO MODERATE PAIN LEVEL 4-6 Last administered on 11/05/18 03:18; Admin Dose 50 MG; Start 11/01/18 at 21:00 Metoprolol Tartrate (Lopressor) 5 mg Q4 PRN IV ELEVATED HEART RATE; Start 11/01/18 at 21:00 Docusate Sodium (Colace Liquid Cup) 100 mg BID GTB Last administered on 11/17/18 09:01; Admin Dose 100 MG; Start 11/02/18 at 09:00 Collagenase (Santyl) 1 applic DAILY TOP Last administered on 11/17/18 09:03; Admin Dose 1 APPLIC; Start 11/03/18 at 09:00 Midodrine (Proamatine) 5 mg TID@,, GTB Last administered on 11/16/18 16:19; Admin Dose 5 MG; Start 11/03/18 at 02:30 Potassium Chloride (Potassium Chloride Pwd/Soln) 20 meq BID GTB Last administered on 11/17/18 09:02; Admin Dose 20 MEQ; Start 11/04/18 at 09:00 Lorazepam (Ativan) 1 mg Q4H PRN IV AGITATION Last administered on 11/05/18 11:36; Admin Dose 1 MG; Start 11/05/18 at 11:30 Morphine Sulfate (morphine) 1 mg Q4H PRN IV SEVERE PAIN LEVEL 7-10 Last administered on 11/05/18 13:07; Admin Dose 1 MG; Start 11/05/18 at 13:30 Colistimethate Sodium (Colistin Inhal) 75 mg BID RESP THERAPY NEB Last administered on 11/16/18 21:20; Admin Dose 75 MG; Start 11/07/18 at 12:00 Metoprolol Tartrate (Lopressor) 12.5 mg BID GTB Last administered on 11/17/18 09:03; Admin Dose 12.5 MG; Start 11/08/18 at 21:00 Gentamicin Sulfate (Gentamicin Iv Per Pharmacy) GENTAMICIN PER PHARMACY NOTE XX ; Start 11/08/18 at 15:00 Furosemide (Lasix) 40 mg DAILY IV Last administered on 11/17/18 09:04; Admin Dose 40 MG; Start 11/13/18 at 10:30 Lansoprazole (Prevacid) 30 mg DAILY@06 GTB Last administered on 11/17/18at 05:39; Admin Dose 30 MG; Start 11/14/18 at 06:00 Gentamicin Sulfate 290 mg/ Sodium Chloride 107.25 ml @ 107.25 mls/hr Q36H IVPB Last administered on 11/16/18at 13:45; Admin Dose 107.25 MLS/HR; Start 11/15/18 at 02:00 YURY YOON NP Nov 17, 2018 14:16
--- NOTE | 2018-11-17 14:46 | CONS ---
Assessment/Plan Assessment/Plan Hospital Course (Demo Recall) IMPRESSION: 1. Non-ST elevation myocardial infarction with up trending cardiac enzymes likely demand infarct in the setting of significant tachycardia and fevers, sepsis.-downtrended significantly 2. Abnormal electrocardiogram with nonspecific ST-T abnormalities. 3. Tachycardia, likely due to the patient's underlying sepsis-improved overall 4. Sepsis with the Gram-positive cocci group in clusters growing in blood and Gram-negative rods growing in urine. 5. Urinary tract infection. 6. Chronic respiratory failure, status post tracheostomy. 7. s/p G-tube. 8. Chronic anoxic encephalopathy. 9. Leukocytosis significantly improved. 10. Anemia-worsening 11. Hypernatremia-improved 12. Elevated Lipase- pancreatitis, slowly downtrending Recc: -Tele -Contineu asa as tolerated given anemia requiring transfusion -Contineu low dose BB as tolerated only at very low dose -Continue daily lasix and follow volume status clsoely -trend lipase/follow exam -contnue abx's and f/u cx data Consultation Date/Type/Reason Admit Date/Time October 30, 2018 at 08:15 Initial Consult Date 10/31/18 Type of Consult Cardiology Reason for Consultation Nstemi Requesting Provider: RICHARD GIRARD MD Date/Time of Note DATE: 11/17/18 TIME: 14:45 Exam/Review of Systems Vital Signs Vitals Vital Signs Date Temp Pulse Resp B/P (MAP) Pulse Ox O2 O2 Flow FiO2 Time Delivery Rate 11/17/18 97.9 99 22 103/59 96 Mechanical 11:38 (74) Ventilator 11/17/18 30 05:27 Intake and Output 11/16/18 11/16/18 11/17/18 1515:00 23:00 07:00 IntakeIntake Total 1260 ml 1360 ml OutputOutput Total 1200 ml 350 ml BalanceBalance 60 ml 1010 ml Exam Exam Review of Systems: CONSTITUTIONAL: No fevers, chills. PULMONARY: No sob CARDIOVASCULAR: No chest pain/palpitations GASTROINTESTINAL: No nausea/vomiting. GENITOURINARY: No hematuria/dysuria. MUSCULOSKELETAL: No myagias/arthalgias. PSYCHIATRIC: The patient denies depression. NEUROLOGIC: No weakness Constitutional: other (encephalopathic) Psych: no complaints Head: normocephalic ENMT: mucosa pink and moist Neck: supple, jvd (9 cm water) Respiratory: diminished breath sounds (at bases/B) Cardiovascular: regular rate and rhythm Gastrointestinal: soft, non-tender Musculoskeletal: muscle weakness (generalized) Extremities: edema (none) Labs Result Diagram: 11/17/18 0536 11/17/18 0536 Results 24hrs Laboratory Tests Test 11/17/18 05:36 White Blood Count 8.0 Red Blood Count 3.50 L Hemoglobin 8.6 L Hematocrit 28.6 L Mean Corpuscular Volume 81.7 L Mean Corpuscular Hemoglobin 24.6 L Mean Corpuscular Hemoglobin Concent 30.1 L Red Cell Distribution Width 20.9 H Platelet Count 335 Mean Platelet Volume 10.6 H Immature Granulocytes % 0.500 H Neutrophils % 64.3 Lymphocytes % 25.6 Monocytes % 6.8 Eosinophils % 2.0 Basophils % 0.8 Nucleated Red Blood Cells % 0.0 Immature Granulocytes # 0.040 H Neutrophils # 5.2 Lymphocytes # 2.1 Monocytes # 0.5 Eosinophils # 0.2 Basophils # 0.1 Nucleated Red Blood Cells # 0.0 Sodium Level 139 Potassium Level 3.9 Chloride Level 102 Carbon Dioxide Level 28 Anion Gap 9 Blood Urea Nitrogen 18 Creatinine 0.56 L Est Glomerular Filtrat Rate mL/min > 60 Glucose Level 106 Calcium Level 9.8 Total Bilirubin 0.4 Direct Bilirubin 0.00 Indirect Bilirubin 0.4 Aspartate Amino Transf (AST/SGOT) 40 Alanine Aminotransferase (ALT/SGPT) 18 Alkaline Phosphatase 104 Total Protein 8.1 Albumin 3.9 Globulin 4.20 H Albumin/Globulin Ratio 0.92 Medications Medications Current Medications Albuterol (Proventil 0.083% (Neb)) 2.5 mg Q3H RESP THERAPY PRN NEB WHEEZING AND SOB; Start 10/30/18 at 22:00 Albuterol (Proventil 0.083% (Neb)) 2.5 mg Q6H RESP THERAPY PRN NEB WHEEZING AND SOB; Start 10/30/18 at 22:00 Ascorbic Acid (Vitamin C) 500 mg DAILY GTB Last administered on 11/17/18at 09:02; Admin Dose 500 MG; Start 10/31/18 at 09:00 Metoclopramide HCl (Reglan) 10 mg Q6H PRN GTB NAUSEA AND/OR VOMITING Last administered on 11/10/18at 03:49; Admin Dose 10 MG; Start 10/30/18 at 22:00 Multivitamins (Multivitamin) 30 ml DAILY GTB Last administered on 11/17/18 09:03; Admin Dose 30 ML; Start 10/31/18 at 09:00 Ferrous Sulfate (Feosol Liquid Cup) 300 mg BID PO Last administered on 11/17/18 09:01; Admin Dose 300 MG; Start 10/30/18 at 22:00 Levetiracetam (Keppra Liquid) 1,500 mg BID GTB Last administered on 11/17/18 09:01; Admin Dose 1,500 MG; Start 10/30/18 at 22:30 Acetaminophen (Tylenol Liquid) 650 mg Q4H PRN GTB MILD PAIN(1-3)OR ELEVATED TEMP Last administered on 11/10/18 01:30; Admin Dose 650 MG; Start 10/31/18 at 00:00 Nystatin (Nystatin Oint) 1 applic BID TOP Last administered on 11/17/18 09:07; Admin Dose 1 APPLIC; Start 10/31/18 at 21:00 Aspirin (Aspirin) 81 mg DAILY PO Last administered on 11/17/18 09:02; Admin Dose 81 MG; Start 11/01/18 at 09:00 Tramadol HCl (Ultram) 50 mg Q4 PRN PO MODERATE PAIN LEVEL 4-6 Last administered on 11/05/18 03:18; Admin Dose 50 MG; Start 11/01/18 at 21:00 Metoprolol Tartrate (Lopressor) 5 mg Q4 PRN IV ELEVATED HEART RATE; Start 11/01/18 at 21:00 Docusate Sodium (Colace Liquid Cup) 100 mg BID GTB Last administered on 11/17/18 09:01; Admin Dose 100 MG; Start 11/02/18 at 09:00 Collagenase (Santyl) 1 applic DAILY TOP Last administered on 11/17/18 09:03; Admin Dose 1 APPLIC; Start 11/03/18 at 09:00 Midodrine (Proamatine) 5 mg TID@,,17 GTB Last administered on 11/16/18 16:19; Admin Dose 5 MG; Start 11/03/18 at 02:30 Potassium Chloride (Potassium Chloride Pwd/Soln) 20 meq BID GTB Last admin istered on 11/17/18 09:02; Admin Dose 20 MEQ; Start 11/04/18 at 09:00 Lorazepam (Ativan) 1 mg Q4H PRN IV AGITATION Last administered on 11/05/18 11:36; Admin Dose 1 MG; Start 11/05/18 at 11:30 Morphine Sulfate (morphine) 1 mg Q4H PRN IV SEVERE PAIN LEVEL 7-10 Last administered on 11/05/18 13:07; Admin Dose 1 MG; Start 11/05/18 at 13:30 Colistimethate Sodium (Colistin Inhal) 75 mg BID RESP THERAPY NEB Last administered on 11/16/18 21:20; Admin Dose 75 MG; Start 11/07/18 at 12:00 Metoprolol Tartrate (Lopressor) 12.5 mg BID GTB Last administered on 11/17/18 09:03; Admin Dose 12.5 MG; Start 11/08/18 at 21:00 Gentamicin Sulfate (Gentamicin Iv Per Pharmacy) GENTAMICIN PER PHARMACY NOTE XX ; Start 11/08/18 at 15:00 Furosemide (Lasix) 40 mg DAILY IV Last administered on 11/17/18 09:04; Admin Dose 40 MG; Start 11/13/18 at 10:30 Lansoprazole (Prevacid) 30 mg DAILY@06 GTB Last administered on 11/17/18 05:39; Admin Dose 30 MG; Start 11/14/18 at 06:00 Gentamicin Sulfate 290 mg/ Sodium Chloride 107.25 ml @ 107.25 mls/hr Q36H IVPB Last administered on 11/16/18 13:45; Admin Dose 107.25 MLS/HR; Start 11/15/18 at 02:00 ELOINA MISHRA Nov 17, 2018 14:46
--- NOTE | 2018-11-17 20:31 | DS ---
Date/Time of Note Date/Time of Note DATE: 11/17/18 TIME: 20:26 Discharge Summary Admission/Discharge Info Admit Date/Time October 30, 2018 at 08:15 Discharge Date/Time Nov 17, 2018 at 18:02 Patient Condition: Stable Hx of Present Illness This is a 47-year-old male that presents to the emergency department brought in by EMS from [facility]. The patient is trach to vent dependent. He is past medical history of anoxic brain injury and encephalopathy. Patient is on Keppra as he does have history of seizure secondary to his anoxic brain injury. The patient was sent to the emergency department today for changes in his mental status and tachycardia. Hospital Course Pt d/nuno to [facility]. Patient is currently on gentamicin IV and tobramycin inhalation -Urinary retention. Dr. Regan is following in urology consultation. Continue Charles catheter. -Hypernatremia, resolved. continue free water flushes where G-tube. -Sepsis with gram-positive cocci bacteremia MDR Proteus UTI. Continue antibiotics per ID. Dr. Matias is following in infection disease consultation. -Non-ST elevation myocardial infarction, continue aspirin, beta-samantha. Dr. Flor is following in cardiology consultation. -Acute pancreatitis. Dr. Walton is following in gastroenterology consultation. Pt tolerated GT feeding well. -Ventilator dependent respiratory failure with tracheostomy. -Anoxic encephalopathy status post cardiac arrest in 2009 -Ventilator dependent respiratory failure -Dysphagia with PEG -Seizure disorder, continue Keppra. -Schizophrenia -Multiple wounds, continue current wound care, offloading. Plan of care discussed with Dr. Courtney. Home Meds Reported Medications Ascorbic Acid* (Vitamin C*) 500 Mg Capsule.sa, 500 MG GTB DAILY, CAP 10/30/18 Cran/Vitc/Mannose/Inulin/Brom (Uti-Stat Liquid) 3,875 Mg/30 Ml Liquid, 3875 MG GTB BID 10/30/18 Acetaminophen* (Acetaminophen*) 650 Mg Tablet, 650 MG GTB TRACH CHANGE PRN for PAIN, #30 TAB 10/30/18 Acetaminophen* (Acetaminophen*) 325 Mg Tablet, 650 MG GTB BID PRN for PAIN MANAGEMENT, #30 TAB 10/30/18 Metoclopramide Hcl* (Metoclopramide Hcl*) 10 Mg Tablet, 10 MG GTB Q6H PRN for NAUSEA AND OR VOMITING, TAB 10/30/18 Potassium Chloride* (Potassium Chloride*) 20 Meq/15 Ml Liquid, 20 MEQ GTB DAILY, ML DILUTE WITH 120 CCS OF WATER 10/30/18 Multivitamin* (Daily Value*) 1 Each Tablet, 1 TAB GTB DAILY, TAB 10/30/18 Levetiracetam* (Keppra* (Ped)) 100 Mg/Ml Liq, 1500 MG GTB BID for 30 Days, BOTTL E 10/30/18 Ferrous Sulfate (Ferrous Sulfate) 220 Mg/5 Ml Solution, 300 MG GTB BID 10/30/18 Dexlansoprazole (Dexilant) 60 Mg Cap., 60 MG GTB DAILY, #30 CAP 10/30/18 Cranberry Extract (Cranberry) 425 Mg Capsule, 425 MG GTB BID, CAP 10/30/18 Docusate Sodium* (Colace*) 100 Mg Capsule, 100 MG GTB QHS, #60 CAP 10/30/18 Chlorhexidine Gluconate (Peridex) 473 Ml Mouthwash, 15 ML MM Q12, BOTTLE 10/30/18 Albuterol Sulfate* (Albuterol Sulfate* Neb) 0.083%-3 Ml Neb, 2.5 MG NEB Q6 PRN for WHEEZING AND SOB, #30 VIAL 10/30/18 Albuterol Sulfate* (Albuterol Sulfate* Neb) 0.083%-3 Ml Neb, 2.5 MG NEB Q3H PRN for WHEEZING AND SOB, #30 VIAL 10/30/18 Primary Care Provider Guru Courtney MD Time spent on discharge: > 30 minutes Pending Labs Laboratory Tests Test 11/17/18 05:36 White Blood Count 8.0 10^3/ul (4.8-10.8) Red Blood Count 3.50 10^6/ul (4.70-6.10) Hemoglobin 8.6 g/dl (14.0-18.0) Hematocrit 28.6 % (42.0-52.0) Mean Corpuscular Volume 81.7 fl (82.0-101.0) Mean Corpuscular Hemoglobin 24.6 pg (29.0-33.0) Mean Corpuscular Hemoglobin Concent 30.1 g/dl (32.0-37.0) Red Cell Distribution Width 20.9 % (11.5-14.5) Platelet Count 335 10^3/UL (140-415) Mean Platelet Volume 10.6 fl (7.4-10.4) Immature Granulocytes % 0.500 % (0.001-0.429) Neutrophils % 64.3 % (39.0-77.0) Lymphocytes % 25.6 % (15.0-51.0) Monocytes % 6.8 % (0.0-11.0) Eosinophils % 2.0 % (0.0-7.0) Basophils % 0.8 % (0.0-2.0) Nucleated Red Blood Cells % 0.0 /100WBC (0.0-0.0) Immature Granulocytes # 0.040 10^3/ul (0.0-0.031) Neutrophils # 5.2 10^3/ul (1.6-7.5) Lymphocytes # 2.1 10^3/ul (0.8-2.9) Monocytes # 0.5 10^3/ul (0.3-0.9) Eosinophils # 0.2 10^3/ul (0.0-0.5) Basophils # 0.1 10^3/ul (0.0-0.1) Nucleated Red Blood Cells # 0.0 10^3/ul (0.0-0.0) Sodium Level 139 mmol/L (135-144) Potassium Level 3.9 mmol/L (3.5-5.1) Chloride Level 102 mmol/L (97-110) Carbon Dioxide Level 28 mmol/L (21-31) Anion Gap 9 (5-13) Blood Urea Nitrogen 18 mg/dl (7-20) Creatinine 0.56 mg/dl (0.61-1.24) Est Glomerular Filtrat Rate mL/min > 60 mL/min (>60) Glucose Level 106 mg/dl (70-220) Calcium Level 9.8 mg/dl (8.4-10.2) Total Bilirubin 0.4 mg/dl (0.2-1.3) Direct Bilirubin 0.00 mg/dl (0.00-0.20) Indirect Bilirubin 0.4 mg/dl (0-1.1) Aspartate Amino Transf (AST/SGOT) 40 IU/L (15-46) Alanine Aminotransferase (ALT/SGPT) 18 IU/L (13-69) Alkaline Phosphatase 104 IU/L (42-121) Total Protein 8.1 g/dl (6.1-8.1) Albumin 3.9 g/dl (3.3-4.9) Globulin 4.20 g/dl (1.3-3.2) Albumin/Globulin Ratio 0.92 JH WISDOM Nov 17, 2018 20:31
== END 2018-11-17 18:02 | disposition short-term general hospital (02) | DRG 870 ==
LOC: E/R 06:11 → 6WM 08:15
PROVIDERS: ADMIT Internal Medicine; ATTEND Internal Medicine
PROC: 5A1955Z Respiratory Ventilation, Greater than 96 Consecutive Hours (ICD-10-PCS; principal; 2018-10-31)
PROC: 30233N1 Transfusion of Nonautologous Red Blood Cells into Peripheral Vein, Percutaneous Approach (ICD-10-PCS; 2018-11-06)
PROC: 02H633Z Insertion of Infusion Device into Right Atrium, Percutaneous Approach (ICD-10-PCS; 2018-11-13)
DX: A41.1 Sepsis due to other specified staphylococcus (principal); I21.4 Non-ST elevation (NSTEMI) myocardial infarction; K85.90 Acute pancreatitis without necrosis or infection, unspecified; J18.9 Pneumonia, unspecified organism; R65.21 Severe sepsis with septic shock; N12 Tubulo-interstitial nephritis, not specified as acute or chronic; Z99.11 Dependence on respirator [ventilator] status; N39.0 Urinary tract infection, site not specified; E87.0 Hyperosmolality and hypernatremia; G93.1 Anoxic brain damage, not elsewhere classified; E11.8 Type 2 diabetes mellitus with unspecified complications; R13.10 Dysphagia, unspecified; F20.9 Schizophrenia, unspecified; G40.909 Epilepsy, unspecified, not intractable, without status epilepticus; N28.9 Disorder of kidney and ureter, unspecified; D64.9 Anemia, unspecified; I10 Essential (primary) hypertension; J20.9 Acute bronchitis, unspecified; E66.9 Obesity, unspecified; Z68.30 Body mass index [BMI] 30.0-30.9, adult; B96.4 Proteus (mirabilis) (morganii) as the cause of diseases classified elsewhere; Z66 Do not resuscitate
CPT/HCPCS: 36415; 36430; 36569; 36600; 71045; 71275; 74160; 74176; 76775; 76937; 80048; 80053; 80061; 80076; 80170; 80202; 81001; 82040; 82042; 82150; 82550; 82553; 82784; 82787; 82803; 82962; 83605; 83690; 83735; 84484; 85025; 85610; 85730; 86850; 86900; 86901; 86920; 87070; 87081; 87086; 87400; 89220; 93005; 93306; 93970; 94002; 94003; 94640; 96374; 96375; A4310; J0692; J1580; J1940; J2060; J2270; J2543; J3370; J3480; J7030; J7040; J7042; P9016; P9047; Q9967